=== PATIENT | male | born 1935 | race Caucasian/White ===

== ENCOUNTER 2017-05-30 14:42 | Emergency (ER) | payer OTHER, BC ==
--- OUTSIDE RECORDS SUMMARY | 2017-05-30 14:45 | XMS REPORT | Clinical Summary ---
:1935 Author Organization [facility] Address [address] [place] [address] Care Team Providers Name Role Phone Asked, No Pcp Primary Care Provider Unavailable Allergies Active Allergy Reactions Severity Noted Date Comments No Known Drug Allergies 11/18/2015 Current Medications Prescription Sig. Disp. Refills Start Date End Date Status metFORMIN TAKE BY MOUTH Active (GLUCOPHAGE) 500 mg 1/2 TABLET 2 tablet TIMES A DAY glimepiride Take 2 mg by 3 01/09/2016 Active (AMARYL) 2 MG mouth once tablet daily. allopurinol Take 100 mg Active (ZYLOPRIM) 100 MG by mouth tablet daily. folic acid Take 1 mg by Active (FOLVITE) 1 MG mouth daily. tablet furosemide (LASIX) Take 40 mg by Active 40 mg tablet mouth 2 (two) times a day. atorvastatin Take 1 tablet 30 tablet 0 04/30/2017 05/30/2017 Active (LIPITOR) 40 MG (40 mg total) tablet by mouth nightly for 30 days. aspirin (ECOTRIN) Take 1 tablet 30 tablet 0 05/01/2017 05/31/2017 Active 81 MG enteric (81 mg total) coated tablet by mouth daily for 30 days. carvedilol (COREG) Take 1 tablet 60 tablet 0 05/01/2017 05/31/2017 Active 25 MG tablet (25 mg total) by mouth 2 (two) times a day with meals for 30 days. apixaban (ELIQUIS) Take 1 tablet 60 tablet 0 05/01/2017 05/31/2017 Active 5 mg tablet (5 mg total) by mouth 2 (two) times a day for 30 days. potassium chloride Take 15 mL 450 mL 0 05/01/2017 05/31/2017 Active (KAYCIEL) 20 mEq/15 (20 mEq mL solution total) by mouth daily for 30 days. carvedilol (COREG) Take 2 120 tablet 0 05/01/2017 05/31/2017 Active 12.5 MG tablet tablets (25 mg total) by mouth 2 (two) times a day with meals for 30 days. lisinopril Take 2 60 tablet 0 05/01/2017 05/31/2017 Active (PRINIVIL,ZESTRIL) tablets (20 10 mg tablet mg total) by mouth nightly for 30 days. clonIDINE Take 1 tablet 60 tablet 0 05/01/2017 05/31/2017 Active (CATAPRES) 0.1 MG (0.1 mg tablet total) by mouth 2 (two) times a day for 30 days. metoprolol TAKE 1 TABLET 05/01/2017 Discontinued succinate XL BY MOUTH (TOPROL-XL) 100 mg TWICE A DAY 24 hr tablet amLODIPine TAKE 1 TABLET 05/01/2017 Discontinued (NORVASC) 10 mg BY MOUTH tablet EVERY DAY atorvastatin Take 20 mg by 1 12/04/2015 05/01/2017 Discontinued (LIPITOR) 20 MG mouth tablet nightly. clonIDINE Take 0.1 mg 4 01/05/2016 05/01/2017 Discontinued (CATAPRES) 0.1 MG by mouth 3 tablet (three) times a day. amLODIPine Take 5 mg by 05/01/2017 Discontinued (NORVASC) 5 mg mouth daily. tablet carvedilol (COREG) Take 12.5 mg 05/01/2017 Discontinued 12.5 MG tablet by mouth 2 (two) times a day with meals. lisinopril Take 1 tablet 30 tablet 0 04/30/2017 05/01/2017 Discontinued (PRINIVIL,ZESTRIL) (10 mg total) 10 mg tablet by mouth nightly for 30 days. benzonatate Take 1 15 capsule 0 04/30/2017 05/07/2017 (TESSALON) 100 MG capsule (100 capsule mg total) by mouth 3 (three) times a day as needed for cough for up to 7 days. levoFLOXacin Take 1 tablet 4 tablet 0 05/02/2017 05/06/2017 (LEVAQUIN) 750 MG (750 mg tablet total) by mouth daily for 4 days. 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 Dizziness and giddiness 08/21/2012 Back pain 08/10/2012 Peripheral vascular disease 06/20/2012 Overview: S/P stents Coronary arteriosclerosis 02/07/2012 Overview: S/P CABG x 3 Gout 03/28/2011 Chronic coronary artery disease 02/06/2011 Peripheral arterial occlusive disease 02/06/2011 Diabetes mellitus 06/07/2010 Essential hypertension 06/07/2010 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 Pneumonia 06/07/2010 Encounters Date Type Specialty Care Team Description 05/01/2017 Orders Only Procedural Lia, Cardiology Ines Kinsey RN 04/28/2017 - Hospital Encounter Cardiology Laurita, Essential 05/01/2017 Argentina Smith MD hypertension Jagjit Hunter, (Primary Dx) DO 07/19/2016 Office Visit General Surgery [place], Danny Norwood MD without obstruction or gangrene (Primary Dx) after 05/29/2016 Immunizations Name Dates Previously Given Next Due Influenza Trivalent 12/25/2008, 12/12/2007 Pneumococcal Polysaccharide 06/21/2010 Family History Medical History Relation Name Comments Thyroid cancer Brother Coronary artery disease Father Coronary artery disease Mother Diabetes Other Unspecified Relation Heart disease Other Unspecified Relation Hypertension Other Unspecified Relation Relation Name Status Comments Brother Father Mother Other Unspecified Relation Social History Tobacco Use Types Packs/Day Years Used Date Former Smoker Cigarettes Smokeless Tobacco: Never Used Alcohol Use Drinks/Week oz/Week Comments Yes moderate- 2 drinks weekly Sex Assigned at Date Recorded Not on file Last Filed Vital Signs Vital Sign Reading Time Taken Blood Pressure 160/66 05/01/2017 3:27 PM CDT Pulse 82 05/01/2017 3:27 PM CDT Temperature 36.4 C (97.5 F) 05/01/2017 3:27 PM CDT Respiratory Rate 17 05/01/2017 3:27 PM CDT Oxygen Saturation 91% 05/01/2017 3:27 PM CDT Inhaled Oxygen Concentration - - Weight 84 kg (185 lb 1.6 oz) 05/01/2017 5:12 AM CDT Height 175.3 cm (5' 9") 04/28/2017 4:51 PM CDT Body Mass Index 27.33 05/01/2017 5:12 AM CDT Plan of Treatment Date Type Specialty Care Team Description 05/31/2017 Surgery Procedural Esther Marsh Ep cardioversion Cardiology MD Jeffy [86833 (CPT)] [address] [place] [address] 05/31/2017 Procedure Pass Procedural Cardiology 05/31/2017 Hospital Encounter Procedural Esther Marsh Atrial fibrillation, Cardiology MD Jeffy unspecified type [address] [place] [address] Health Maintenance Due Date Last Done Comments FOOT EXAM 1945 OPHTHALMOLOGY EXAM 1945 ZOSTER VACCINE 1997 PNEUMOCOCCAL-13 2002 INFLUENZA VACCINE 09/06/2017 12/25/2008, 12/12/2007 PNEUMOCOCCAL POLYSACCHARIDE VACCINE AGE 65 Completed 06/21/2010 AND OVER Procedures Procedure Name Priority Date/Time Associated Comments Diagnosis ECHOCARDIOGRAM 2D Routine 04/28/2017 7:34 Results for this COMPLETE W MMODE PM CDT procedure are in SPECTRAL COLOR DOPPLER the results (20748) section. after 05/29/2016 Results POC glucose (05/01/2017 11:46 AM)Only the most recent of13 resultswithin the time period is included. Component Value Ref Range POC glucose 158 (H) 65 - 99 mg/dL Comment: [facility] Notified RN Meter ID: [id number] [employer] Instructor: Lorena Pierre Specimen Performing Laboratory [facility] DEPARTMENT OF PATHOLOGY AND GENOMIC MEDICINE [address] [place] [address] Estimated GFR (05/01/2017 5:50 AM)Only the most recent of4 resultswithin the time period is included. Component Value Ref Range GFR Non Af Amer 81 mL/min/1.73 m2 GFR Af Amer >90 mL/min/1.73 m2 Comment: Chronic kidney disease: <60 mL/min/1.73m2 Kidney failure: <15 mL/min/1.73m2 The estimated GFR is calculated from the IDMS-traceable Modification of Diet in Renal Disease Equation. The accuracy of the calculation is poor when the creatinine is normal. Calculated values >90 mL/min/1.73m2 are not reported. This equation has not been validated in children (<18 years), women, the elderly (>70 years), or ethnic groups other than Caucasians and Americans. Specimen Performing Laboratory Plasma specimen [facility] DEPARTMENT OF PATHOLOGY AND GENOMIC MEDICINE [address] [place] [address] CBC with platelet and differential (05/01/2017 5:50 AM)Only the most recent of4 resultswithin the time period is included. Component Value Ref Range WBC 7.16 4.50 - 11.00 k/uL RBC 3.49 (L) 4.40 - 6.00 m/uL HGB 11.5 (L) 14.0 - 18.0 g/dL HCT 34.1 (L) 41.0 - 51.0 % MCV 97.7 82.0 - 100.0 fL MCH 33.0 27.0 - 34.0 pg MCHC 33.7 31.0 - 37.0 g/dL RDW - SD 54.6 37.0 - 55.0 fL MPV 10.1 8.8 - 13.2 fL Platelet count 176 150 - 400 k/uL Nucleated RBC 0.00 /100 WBC Neutrophils 50.6 39.0 - 69.0 % Lymphocytes 26.8 25.0 - 45.0 % Monocytes 14.8 (H) 0.0 - 10.0 % Eosinophils 5.0 0.0 - 5.0 % Basophils 1.1 (H) 0.0 - 1.0 % Immature granulocytes 1.7 (H)Comment: "Immature granulocytes" 0.0 - 1.0 % (promyelocytes, myelocytes, metamyelocytes) Specimen Performing Laboratory Blood [facility] DEPARTMENT OF PATHOLOGY AND GENOMIC MEDICINE [address] [place] [address] Phosphorus level (05/01/2017 5:50 AM)Only the most recent of4 resultswithin the time period is included. Component Value Ref Range Phosphorus 3.8 2.4 - 4.5 mg/dL Specimen Performing Laboratory Plasma specimen [facility] DEPARTMENT PATHOLOGY [address] [address] Magnesium level (05/01/2017 5:50 AM)Only the most recent of4 resultswithin the time period is included. Component Value Ref Range Magnesium 1.3 (L) 1.6 - 2.4 mg/dL Specimen Performing Laboratory Plasma specimen [facility] PATHOLOGY [address] [address] Basic metabolic panel (05/01/2017 5:50 AM) Component Value Ref Range Sodium 140 135 - 148 mEq/L Potassium 3.7 3.5 - 5.0 mEq/L Chloride 97 (L) 98 - 112 mEq/L CO2 27 24 - 31 mEq/L Anion gap 16 (H) 7 - 15 mEq/L Comment: Starting from May , anion gap calculation no longer incorporates potassium. Please note the change. BUN 19 8 - 23 mg/dL Creatinine 0.9 0.7 - 1.2 mg/dL Glucose 151 (H) 65 - 99 mg/dL Calcium 9.2 8.8 - 10.2 mg/dL Specimen Performing Laboratory Plasma specimen [facility] PATHOLOGY [address] [address] B natriuretic peptide (04/30/2017 4:25 AM)Only the most recent of2 resultswithin the time period is included. Component Value Ref Range BNP 341 (H) 0 - 100 pg/mL Specimen Performing Laboratory Blood [facility] PATHOLOGY [address] [address] Thyroid stimulating hormone (04/30/2017 4:00 AM) Component Value Ref Range TSH 0.44 0.27 - 4.20 uIU/mL Specimen Performing Laboratory Plasma specimen [facility] PATHOLOGY [address] [address] T4 (04/30/2017 4:00 AM) Component Value Ref Range T4 6.0 4.5 - 11.7 ug/dL Specimen Performing Laboratory Plasma specimen [facility] PATHOLOGY [address] [address] Comprehensive metabolic panel (04/30/2017 4:00 AM)Only the most recent of3 resultswithin the time period is included. Component Value Ref Range Sodium 139 135 - 148 mEq/L Potassium 3.2 (L) 3.5 - 5.0 mEq/L Chloride 97 (L) 98 - 112 mEq/L CO2 28 24 - 31 mEq/L Anion gap 14 7 - 15 mEq/L Comment: Starting from May , anion gap calculation no longer incorporates potassium. Please note the change. BUN 20 8 - 23 mg/dL Creatinine 0.9 0.7 - 1.2 mg/dL Glucose 100 (H) 65 - 99 mg/dL Calcium 9.6 8.8 - 10.2 mg/dL Protein 7.2 6.3 - 8.3 g/dL Comment: 4.6-7.0 g/dL 1 week 4.4-7.6 g/dL 7 months-1year5.1-7.3 g/dL 1-2 years5.6-7.5 g/dL >3 years6.0-8.0 g/dL 18-150 6.3-8.3 g/dL Albumin 3.1 (L) 3.5 - 5.0 g/dL A/G ratio 0.8 0.7 - 3.8 Alkaline phosphatase 68 40 - 129 U/L AST 42 10 - 50 U/L ALT 29 5 - 50 U/L Total bilirubin 0.7 0.0 - 1.2 mg/dL Specimen Performing Laboratory Plasma specimen [facility] DEPARTMENT OF [facility]OLOG[facility] AND [facility] [address] [place] [address] Lactic acid level, SEPSIS - Now and repeat 2x every 3 hours (04/29/2017 4:00 AM )Only the most recent of2 resultswithin the time period is included. Component Value Ref Range Lactic acid 1.4 0.5 - 2.2 mmol/L Specimen Performing Laboratory Plasma specimen [facility] DEPARTMENT OF PATHOLOGY AND GENOMIC MEDICINE [address] [place] [address] Total iron binding capacity (04/29/2017 4:00 AM) Component Value Ref Range Iron level 38 (L) 59 - 158 ug/dL Iron binding capacity 171 (L) 200 - 400 ug/dL % Saturation 22.2 20.0 - 40.0 % Specimen Performing Laboratory Plasma specimen [facility] DEPARTMENT OF PATHOLOGY AND [facility] [address] [place] [address] Folate level (04/29/2017 4:00 AM) Component Value Ref Range Folate >20.0 4.8 - 24.2 ng/mL Specimen Performing Laboratory Serum [facility] PATHOLOGY AND [address] [address] Ferritin level (04/29/2017 4:00 AM) Component Value Ref Range Ferritin level 470 (H) 30 - 400 ng/mL Specimen Performing Laboratory Plasma specimen [facility] DEPARTMENT OF PATHOLOGY AND [address] [address] Vitamin B12 level (04/29/2017 4:00 AM) Component Value Ref Range Vitamin B12 529 211 - 946 pg/mL Comment: Significant overlap exists between normal and deficiency states. However, most patients with deficiencies will have Serum B12 <200 pg/mL. Specimen Performing Laboratory Serum [facility] PATHOLOGY [address] [address] Troponin (04/29/2017 12:40 AM)Only the most recent of2 resultswithin the time period is included. Component Value Ref Range Troponin <0.30 0.00 - 0.30 ng/mL Comment: 0.30 - 1.49 ng/mlMay indicate increased risk of acute coronary syndrome. >=1.5 ng/mlConsistent with acute myocardial infarction. The diagnostic value of a single normal or non-diagnostic result is questionable.Serial samples at 2-6 hour intervals are required to rule out acute myocardial injury. Specimen Performing Laboratory Blood [facility] PATHOLOGY [address] [address] Urine culture (04/28/2017 9:50 PM) Component Value Ref Range Urine culture SEE COMMENTComment: Bacteriuria screen negative. Specimen Performing Laboratory [facility] PATHOLOGY [address] [address] Urinalysis screen and microscopy, with reflex to culture (04/28/2017 9:41 PM) Component Value Ref Range Specimen site Clean catch Color, UA Straw Appearance, UA Clear Specific gravity, UA 1.010 1.001 - 1.035 pH, UA 5.0 5.0 - 8.5 Protein, UA Negative Negative Glucose, UA Negative Negative Ketones, UA Trace (A) Negative Bilirubin, UA Negative Negative Blood, UA Negative Negative Nitrite, UA Negative Negative Urobilinogen, UA <2.0 <2.0 Leukocyte esterase, UA Negative Negative WBC, UA <1 0 - 1 /HPF RBC, UA <1 0 - 1 /HPF Bacteria, UA Few None seen Yeast, UA None seen Yeast with pseudohyphae, UA None seen Hyaline casts, UA 3 /LPF Specimen Performing Laboratory Urine [facility] DEPARTMENT OF PATHOLOGY AND GENOMIC MEDICINE [address] [place] [address] XR Chest 2 Vw (04/28/2017 9:01 PM) Specimen Performing Laboratory [facility] [address] [place] [address] Narrative EXAMINATION:XR CHEST 2 VW CLINICAL HISTORY:Shortness of breath. Evaluate for pneumonia. COMPARISON:June 14, 2014 chest one view TECHNIQUE: Frontal and lateral views of the chest obtained. IMPRESSION: No evidence of pneumonia. Lungs are clear. Pulmonary vasculature is normal. No pleural effusion or pneumothorax. Left subclavian pacemaker. Mild cardiomegaly. Aorta is atherosclerotic. Midline sternotomy and CABG. Bones are unremarkable for age. [facility]-[id number] Procedure Note Interface, Radiology Results Incoming - 04/28/2017 10:06 PM CDT EXAMINATION: XR CHEST 2 VW CLINICAL HISTORY: Shortness of breath. Evaluate for pneumonia. COMPARISON: June 14, 2014 chest one view TECHNIQUE: Frontal and lateral views of the chest obtained. IMPRESSION: No evidence of pneumonia. Lungs are clear. Pulmonary vasculature is normal. No pleural effusion or pneumothorax. Left subclavian pacemaker. Mild cardiomegaly. Aorta is atherosclerotic. Midline sternotomy and CABG. Bones are unremarkable for age. [facility]-[id number] Echocardiogram complete w contrast and 3D if needed (04/28/2017 7:34 PM) Specimen Performing Laboratory [facility] [address] [place] [address] Narrative Echocardiography Report [address] [place] [address] Pat.Name:ELOY BURROWS Pat.ID:[id number] St.Date: 04/28/2017 Refer.MD:ARGENTINA SINGER MD Exam Time: 6:57:00 PMStudy Type:Routine Echo Height:68.9inWeight:191lb BSA: 2.03 m2 DOBAge:1935,82Y Sex: MALEBP:197/95 HR:77 bpmSonogrphr: KOJO Donovan Pat. Stat.:Inpatient Room:[address] Study Status:Final Echo Event ID:[id number] Order ID:[id number] Reason for Study:CHF History / Clinical:Coronary Artery Disease, Diabetes, Hypertension, Dizziness, Hyperlipidemia Procedures:2D Echo, Colorflow Doppler, Portable Race:C SUMMARY: LV size is normal. Estimated EF is 50-54%. RV systolic function is normal. LA volume is severely enlarged. Small posterolateral pericardial effusion. Estimated PA systolic pressure is 21-26 mmHg, assuming a mean RAP of 5-10 mmHg. FINDINGS: LV: LV size is normal. LV EF is lower limits of normal. Overall wallmotion is normal. Estimated EF is 50-54%. RV: RV size is enlarged. RV systolic function is normal. LA: LA volume is severely enlarged. RA: RA volume is enlarged. AO: Aortic root diameter is upper limits of normal in size. Ascendingaorta diameter is upper limits of normal. TERRANCE: Small posterolateral pericardial effusion. AV: Focal calcification of AV leaflets. MV: Focal calcifications of mitral leaflets. PV: No structural PV abnormalities noted. TV: No structural TV abnormalities noted. Mild tricuspid regurgitation Other:Estimated PA systolic pressure is 21-26 mmHg, assuming a meanRAP of 5-10 mmHg. MEASUREMENTS: 2D Parasternal [place] LVOT 2.2 cmLA Ds4.7 cm LVIDd4.8 cmIndex 2.4 cm/m Ao An2.2 cm LVIDs3.7 cm LV Nhdh327.1 g(122-174) LV%fs 23 % LVM Index 83.8 g/m2 IVSd 1 cmRWT0.4 LVPWd1 cmAo Rtd 3.9 cm Index1.9 cm/m Right Ventricle RVIDd4.9 cm (2.6-4.3) LA Sng Plane LA Area 30.1 cm2(8.8-23.4) LA Vol 103.8 ml Index51.2 ml/m LA LngAx 7.1 cm RA Sng Plane RA Area 34 cm2(8.3-19.5) RA Vol 133.1 ml Index65.6 ml/m RA LngAx 7.3 cm Ascending Aorta Asce Dim 3.8 cm Signed 05/01/2017 11:20 AM Jose Hernandez M.D. Procedure Note Interface, Radiology Results In - 05/01/2017 11:21 AM CDT Echocardiography Report [address] [place] [address] Pat.Name: ELOY BURROWS Pat.ID: [id number] .Date: 04/28/2017 Refer.MD: ARGENTINA SINGER MD Exam Time: 6:57:00 PM Study Type:Routine Echo Height: 68.9in Weight: 191lb BSA: 2.03 m2 Age: 2 1935,82Y Sex: MALE BP: 197/95 HR: 77 bpm Sonogrphr: KOJO Donovan Pat. Stat.:Inpatient Room: [address] Study Status:Final Echo Event ID:[id number] Order ID: [id number] Reason for Study:CHF History / Clinical:Coronary Artery Disease, Diabetes, Hypertension, Dizziness, Hyperlipidemia Procedures:2D Echo, Colorflow Doppler, Portable Race: C SUMMARY: LV size is normal. Estimated EF is 50-54%. RV systolic function is normal. LA volume is severely enlarged. Small posterolateral pericardial effusion. Estimated PA systolic pressure is 21-26 mmHg, assuming a mean RAP of 5-10 mmHg. FINDINGS: LV: LV size is normal. LV EF is lower limits of normal. Overall wall motion is normal. Estimated EF is 50-54%. RV: RV size is enlarged. RV systolic function is normal. LA: LA volume is severely enlarged. RA: RA volume is enlarged. AO: Aortic root diameter is upper limits of normal in size. Ascending aorta diameter is upper limits of normal. TERRANCE: Small posterolateral pericardial effusion. AV: Focal calcification of AV leaflets. MV: Focal calcifications of mitral leaflets. PV: No structural PV abnormalities noted. TV: No structural TV abnormalities noted. Mild tricuspid regurgitation Other: Estimated PA systolic pressure is 21-26 mmHg, assuming a mean RAP of 5-10 mmHg. MEASUREMENTS: 2D Parasternal [place] LVOT 2.2 cm LA Ds 4.7 cm LVIDd 4.8 cm Index 2.4 cm/m Ao An 2.2 cm LVIDs 3.7 cm LV Mass 170.1 g (122-174) LV%fs 23 % LVM Index 83.8 g/m2 IVSd 1 cm RWT 0.4 LVPWd 1 cm Ao Rtd 3.9 cm Index 1.9 cm/m Right Ventricle RVIDd 4.9 cm (2.6-4.3) LA Sng Plane LA Area 30.1 cm2 (8.8-23.4) LA Vol 103.8 ml Index 51.2 ml/m LA LngAx 7.1 cm RA Sng Plane RA Area 34 cm2 (8.3-19.5) RA Vol 133.1 ml Index 65.6 ml/m RA LngAx 7.3 cm Ascending Aorta Asce Dim 3.8 cm Signed 05/01/2017 11:20 AM Jose Hernandez M.D. Hemoglobin A1c (04/28/2017 6:30 PM) Component Value Ref Range Hemoglobin A1C 6.2 (H) 4.0 - 5.6 % Comment: HbA1c cutoffs for diagnosing diabetes: 4.0% - 5.6%=normal 5.7% - 6.4%=increased risk for diabetes (prediabetes) >=6.5%=diabetes Goals for glycemic control (ADA 2016) < 7.0%Target for non adults with diabetes. More or less stringent targets may be appropriate for individual patients. <7.5% Target for Children and adolescents with type 1 diabetes. Specimen Performing Laboratory Blood [facility] DEPARTMENT OF PATHOLOGY AND GENOMIC MEDICINE [address] [place] [address] ECG 12 lead (04/28/2017 6:14 PM) Component Value Ref Range Ventricular rate 100 Atrial rate 111 QRSD interval 98 QT interval 384 QTC interval 495 QRS axis 1 -44 T wave axis 120 EKG impression Atrial fibrillation with premature ventricular or aberrantly conducted complexes-Left axis deviation-Inferior infarct , age undetermined- Anterior infarct , age undetermined-Abnormal ECG-In automated comparison with ECG of 28-APR-2017 18:10,-Atrial fibrillation has replaced Sinus rhythm- Specimen Performing Laboratory [facility] MUSE [address] [place] [address] Sputum culture (04/28/2017 5:45 PM) Component Value Ref Range Sputum culture isolate Normal oral melanie isolated. Comment: Specimen Information Specimen Source: Sputum Specimen Site: Expectorated Specimen Performing Laboratory Sputum - Expectorated [facility] DEPARTMENT OF PATHOLOGY AND GENOMIC MEDICINE [address] [place] [address] Blood culture, aerobic & anaerobic (04/28/2017 5:45 PM)Only the most recent of2 resultswithin the time period is included. Component Value Ref Range Blood culture isolate No growth after 5 days of incubation. Comment: Specimen Information Specimen Source: Blood Specimen Site: Unspecified Specimen Performing Laboratory Blood [facility] DEPARTMENT OF PATHOLOGY AND GENOMIC MEDICINE [address] [place] [address] Gram stain (04/28/2017 5:45 PM) Component Value Ref Range Gram stain isolate Few WBC's Many Gram positive rods Many Gram positive cocci in clusters Comment: Specimen Information Specimen Source: Sputum Specimen Site: Expectorated Specimen Performing Laboratory Sputum - Expectorated [facility] [address] [address] Respiratory pathogen panel (04/28/2017 5:43 PM) Component Value Ref Range Respiratory pathogen panel Negative for all pathogens tested: Negative for Adenovirus Negative for Coronavirus HKU1 Negative for Coronavirus NL63 Negative for Coronavirus 229E Negative for Coronavirus OC43 Negative for Human Metapneumovirus Negative for Rhinovirus/Enterovirus Negative for Influenza A Negative for Influenza A/H1 Negative for Influenza A/H3 Negative for Influenza A/H1-2009 Negative for Influenza B Negative for Parainfluenza Virus 1 Negative for Parainfluenza Virus 2 Negative for Parainfluenza Virus 3 Negative for Parainfluenza Virus 4 Negative for Respiratory Syncytial Virus Negative for Bordetella pertussis Negative for Chlamydophila pneumoniae Negative for Mycoplasma pneumoniae This real-time PCR assay detects the presence of nucleic acids (RNA or DNA) for the respiratory pathogens listed. A result of "Not-detected" does not exclude the possibility of the presence of one or more pathogens at concentrations less than the detectable limits of the assay. Comment: Specimen Information Specimen Source: Nares Specimen Site: Not specified Specimen Performing Laboratory Nares - Not specified [facility] DEPARTMENT OF PATHOLOGY AND [address] [address] Lactic acid level (04/28/2017 5:43 PM) Component Value Ref Range Lactic acid 2.1 0.5 - 2.2 mmol/L Specimen Performing Laboratory Plasma specimen [facility] DEPARTMENT OF PATHOLOGY AND [address] [address] Lipid panel (04/28/2017 5:43 PM) Component Value Ref Range Cholesterol 103 <200 mg/dL Triglycerides 99 <150 mg/dL HDL cholesterol 38 (L) >40 mg/dL LDL cholesterol 44Comment: Result obtained by direct LDL <100 mg/dL measurement Lipid panel interpretation SeeBelow Comment: Total Cholesterol (mg/dL) <200 Desirable [id number]-[id number] >=240High Triglycerides (mg/dL) <150 Normal [id number]-[id number] 200-499High >=500Very high HDL Cholesterol (mg/dL) <40Low (male) <40Low (female) LDL Cholesterol (mg/dL) <100 Optimal 100-129Near or above optimal [phone]-gbjk 160-189High >=190Very high Risk Catergories that modify LDL goals. Risk CatergoriesLDL goal (mg/dL) CHD and CHD risk equivalent<100 (10-year risk >20%) Multiple (2+) risk factors <130 (10-year risk=<20%) 0-1 risk factors <160 (<10-year risk) Defining levels of lipids in metabolic syndrome Triglycerides>=150 mg/dL HDL Cholesterol Men<40 mg/dL Women<40 mg/dL Non-HDL cholesterol is a second target for therapy in persons with high triglycerides (>=200 mg/dL) Specimen Performing Laboratory Plasma specimen [facility] DEPARTMENT OF PATHOLOGY AND GENOMIC MEDICINE [address] [place] [id number] after 05/29/2016 Insurance Payer Benefit Plan / Group Subscriber ID Type Phone Address MEDICARE MEDICARE PART A AND B xxxxxxxxxx Medicare [place], [place] BCBS BCBS CHOICE PPO/[employer]ER[employer] EMPL PPO xxxxxxxxxxxx PPO Work: [id number] [phone] REINALDO WHITLEY Home: [phone]
[2017-05-30] MEDS ORDERED: PANTOPRAZOLE 40 MG INJ ONE (15:13)
[2017-05-30] MEDS ORDERED: NA CHLORIDE 0.9% 1,000 ML ONE ×2 (15:13→17:31)
[2017-05-30] MEDS ORDERED: OCTREOTIDE ACETATE 100 MCG/ML ONE (15:14)
[2017-05-30] MEDS ORDERED: CEFTRIAXONE/SWI 1gm 1 GM/10 ML SYR ONE (15:14)
[2017-05-30 15:22] LABS: Absolute Lymphocytes (CBC) 2.7 K/uL (0.7-4.9); Absolute Monocytes 1.5 K/uL (0.1-1.3); Absolute Neutrophil 14.2 K/uL (1.8-8.0); Basophils % 0.1 % (0-1.3); Lymphocytes % 14.5 % (15.3-44.8); MCH 33.2 pg (27.0-35.0); MCV 105.1 fL (80-100); MPV 8.9 fL (7.6-11.3); Monocytes % 8.3 % (3.3-12.3); RBC Red Blood Cell Count 1.58 M/uL (4.33-5.43)
[2017-05-30 15:26] LABS: Protime INR 2.48
[2017-05-30 15:31] LABS: Potassium 4.4 mEq/L (3.6-5.0)
[2017-05-30 15:38] LABS: Albumin 3.8 g/dL (3.2-5.5); Bilirubin Direct 0.2 mg/dL (0-0.2); Bilirubin Total 0.7 mg/dL (0.3-1.2); Protein, Total 6.9 g/dL (6.0-8.3)
[2017-05-30 15:48] LABS: Hematocrit 16.6 % (39.6-49.0)
[2017-05-30 15:55] LABS: Platelet Estimate ADEQ; Urine White Blood Cell Casts OK
[2017-05-30 15:56] LABS: Blood Morphology Comment NOTED (NOT SEEN); Macrocytosis 1+; Polychromasia 2+
--- NOTE | 2017-05-30 15:59 | RAD REPORT ---
EXAM DESCRIPTION: CT - Head C Spine Cap Wo Con - 05/30/2017 3:47 pm CLINICAL HISTORY: Trauma, head and neck injury. Chest, abdomen and pelvis pain. COMPARISON: None. TECHNIQUE: CT head without contrast. CT cervical spine without contrast with coronal and sagittal reformatted images. CT chest, abdomen and pelvis without contrast with coronal and sagittal reformatted images of the [facility]. All CT scans are performed using dose optimization technique as appropriate and may include automated exposure control or mA/KV adjustment according to patient size. FINDINGS: CT HEAD WITHOUT CONTRAST: No intracranial hemorrhage, hydrocephalus or extra-axial fluid collection. Moderate generalized brain atrophy is present with moderate periventricular and deep white matter chronic microvascular ischemi c changes. No areas of brain edema or midline shift. The paranasal sinuses and mastoids are clear. The calvarium is intact. CT CERVICAL SPINE WITHOUT CONTRAST: No fracture or subluxation. The prevertebral soft tissues are normal in thickness.Heavy carotid athe rosclerosis. CT CHEST, ABDOMEN, PELVIS WITHOUT CONTRAST: NOTE: Lack of contrast is a significant limitation in the assessment of trauma related findings. Spec ifically, solid organ, vascular and bowel evaluation is significantly limited. The lungs are clear.No pneumothorax or pericardial/pleural fluid. Moderate atherosclerosis is seen. P acemaker is in place. No evidence of intra-abdominal visceral injury, free fluid or free air is seen within the above detai led limitations. Cholecystectomy clips. Heavy atherosclerosis is noted. The appendix is normal. Scatt ered sigmoid diverticulosis without diverticulitis. Moderate stool is present in rectum. Evidence femoral bypass grafting is seen. Moderate lumbar degenerative changes. No fractures. IMPRESSION: Negative for acute traumatic findings within the above detailed limitations. Marked atherosclerotic vascular calcifications.
[2017-05-30] MEDS ORDERED: PANTOPRAZOLE INJ 80 MG in NA CHLORIDE 0.9% 250 ML IV SCH (16:00)
[2017-05-30] MEDS ORDERED: OCTREOTIDE 500 MCG in NA CHLORIDE 0.9% 500 ML IV SCH (16:00)
[2017-05-30] MEDS ORDERED: NA CHLORIDE 0.9% 200 ML IV ONE (16:42)
[2017-05-30] MEDS ORDERED: INSULIN -REGULAR HUMAN 50 UNIT/0.5 ML ML ONE (17:31)
--- NOTE | 2017-05-30 17:59 | EDPHYS ---
Physician Documentation [facility] Name: Javan Burrows Age: 82 yrs Sex: Male : 1935 Arrival Date: 05/30/2017 Time: 14:43 Bed 2 Private MD: ED Physician Ranjeet Parker HPI: 05/30 15:19 This 82 yrs old Male presents to ER via EMS with complaints of Altered Mental rn Status, GI Bleeding, Fall Injury. 15:19 The patient presents with confusion. Onset: The symptoms/episode began/occurred today. rn Possible causes: unknown. The patient has not experienced similar symptoms in the past. The patient has not recently seen a physician. Son reports went to go check on him, found him on floor, confused, possibly fell, patient having dark tarry stool and vomiting blood, son reports heavy alcohol intake but has never happened before. Also afib, on anticoagulation.. Historical: - Allergies: 15:21 NKA; iw - PMHx: 15:19 Diabetes - NIDDM; Gout; Hypertension; iw - PSHx: 15:19 Vasectomy; CABG; Cholecystectomy; Left knee replacement; Left shoulder; iw Pacemaker/defibrillator; - Immunization history: Last tetanus immunization: unknown. - Social history:: Smoking status: Patient uses alcohol, on a daily basis. - Family history:: not pertinent. - Hospitalizations: : No recent hospitalization is reported. - History obtained from: son. ROS: 15:19 Constitutional: Negative for fever, chills, and weight loss, Eyes: Negative for injury, rn pain, redness, and discharge, Neck: Negative for injury, pain, and swelling, Cardiovascular: Negative for chest pain, palpitations, and edema, Respiratory: + mild sob Abdomen/GI: + mild abd pain, + vomiting blood, + dark stool MS/Extremity: Negative for injury and deformity, Skin: Negative for injury, rash, and discoloration, Neuro: Negative for headache, numbness, tingling, and seizure Exam: 15:19 Constitutional: Overweight male, slightly confused but answer questions and follows rn commands. Head/Face: Normocephalic, atraumatic. Eyes: Pupils equal round and reactive to light, extra-ocular motions intact. Lids and lashes normal. Conjunctiva and sclera are non-icteric and not injected. Cornea within normal limits. Periorbital areas with no swelling, redness, or edema. ENT: + dry maroon blood/coffee grounds in mouth Neck: Trachea midline, no thyromegaly or masses palpated, and no cervical lymphadenopathy. Supple, full range of motion without nuchal rigidity, or vertebral point tenderness. No Meningismus. Chest/axilla: + right mid lateral linear ecchymosis with small amount of crepitus. no open wounds. Cardiovascular: + irregular and tachycardic, no murmur Respiratory: + coarse bilateral breath sounds, no wheezing, + tachypnea Abdomen/GI: soft, mild epigastric tenderness, no rebound, + lower bilateral abd ecchymosis MS/ Extremity: + right sided BKA Neuro: Awake, confused, follows commands. Vital Signs: 14:47 Pulse 124; Resp 30; Pulse Ox 96% on R/A; dm5 14:50 BP 126 / 72; hb 15:00 BP 132 / 74; Pulse 115; Resp 26 S; Pulse Ox 96% on 3 lpm NC; iw 16:00 BP 98 / 78; Pulse 120; Resp 24; Pulse Ox 100% on 3 lpm NC; hb 17:00 BP 118 / 101; Pulse 120; Resp 17; Pulse Ox 100% on 3 lpm NC; hb 17:30 BP 114 / 76; Pulse 118; Resp 18; Pulse Ox 100% on R/A; hb 18:00 BP 97 / 73; Pulse 122; Resp 24; Pulse Ox 100% on 3 lpm NC; hb 19:00 BP 98 / 83; Pulse 129; Resp 22; Temp 97.6; Pulse Ox 100% on R/A; aa1 20:00 BP 102 / 80; Pulse 130; Resp 22; Temp 97.8; Pulse Ox 98% on R/A; aa1 Misty Coma Score: 15:00 Eye Response: to voice(3). Verbal Response: confused(4). Motor Response: obeys iw commands(6). Total: 13. 16:00 Eye Response: to voice(3). Verbal Response: confused(4). Motor Response: obeys hb commands(6). Total: 13. 17:00 Eye Response: to voice(3). Verbal Response: confused(4). Motor Response: obeys hb commands(6). Total: 13. 18:00 Eye Response: to voice(3). Verbal Response: confused(4). Motor Response: obeys hb commands(6). Total: 13. 19:00 Eye Response: to voice(3). Verbal Response: confused(4). Motor Response: obeys aa1 commands(6). Total: 13. 20:00 Eye Response: to voice(3). Verbal Response: confused(4). Motor Response: obeys aa1 commands(6). Total: 13. Trauma Score (Adult): 15:00 Eye Response: to voice(0); Verbal Response: confused(1); Motor Response: obeys iw commands(2); Systolic BP: > 89 mm Hg(4); Respiratory Rate: 10 to 29 per min(4); Misty Score: 13; Trauma Score: 11 MDM: 14:50 Patient medically screened. rn 16:16 ED course: blood ordered, FFP ordered, updated family, patient stable for transfer, rn will initiate transfer to [facility] given we do not have GI services. . 16:17 ED course: tylenol level ordered as well due to family reporting "constant nyquil rn ingestion".. 17:44 Differential Diagnosis: CVA, electrolyte abnormality, hypoglycemia, overdose, rn pneumonia, seizure, sepsis, UTI, volume depletion, traumatic injury, concussion, GI bleed. Data reviewed: vital signs, nurses notes, lab test result(s), EKG, radiologic studies, CT scan, and as a result, I will admit patient. Counseling: I had a detailed discussion with the patient and/or guardian regarding: the historical points, exam findings, and any diagnostic results supporting the discharge/admit diagnosis, lab results, radiology results, the need to transfer to another facility, for higher level of care, [facility] does not immediately have the required specialist. ED course: Accepted for transfer as consult by Dr. Yung GI, at [facility], waiting television news anchor back for conference with ICU doctor. Glucose 400, 10 units insulin given, acidosis may be combination of hyperglycemia/uremia, will continue to recheck. . 05/30 14:59 Order name: Basic Metabolic Panel; Complete Time: 16:18 rn 05/30 14:59 Order name: CBC with Diff; Complete Time: 15:57 rn 05/30 14:59 Order name: Hepatic Function; Complete Time: 16:18 rn 05/30 14:59 Order name: Lipase; Complete Time: 16:18 05/30 14:59 Order name: Type And Screen rn 05/30 14:59 Order name: PT-INR; Complete Time: 15:54 05/30 14:59 Order name: Ptt, Activated; Complete Time: 15:54 05/30 14:59 Order name: Troponin (emerg Dept Use Only); Complete Time: 15:54 05/30 15:28 Order name: AMMONIA; Complete Time: 16:28 05/30 15:49 Order name: CBC Smear Scan; Complete Time: 15:57 EDPR 05/30 16:02 Order name: Bb Add On ag 05/30 16:08 Order name: ABO/RH no charge; Complete Time: 16:18 [facility] 05/30 16:09 Order name: Fresh Frozen Plasma [facility] 05/30 16:28 Order name: Tylenol Level 05/30 14:59 Order name: CT Traumagram (Head C Spine CAP wo con); Complete Time: 16:03 05/30 14:59 Order name: IV Saline Lock; Complete Time: 15:22 05/30 14:59 Order name: Labs collected and sent; Complete Time: 15:22 05/30 14:59 Order name: EKG - Nurse/Tech; Complete Time: 15:27 05/30 14:59 Order name: EKG; Complete Time: 14:59 05/30 17:26 Order name: Packed RBC Leukored -1 [facility] 05/30 17:28 Order name: Bb Add On ag Administered Medications: 15:27 Drug: Rocephin - (cefTRIAXone) 1 grams Route: IVPB; Infused Over: 30 mins; Site: right hb antecubital; 19:24 Follow up: Response: No adverse reaction; IV Status: Infusion continued upon transfer hb 15:27 Drug: Octreotide 50 mcg Route: IV; Rate: 1 bolus; Site: right antecubital; hb 16:00 Follow up: Response: No adverse reaction; IV Status: Completed infusion hb 15:28 Drug: ProTONIX 40 mg Route: IVP; Site: right antecubital; hb 16:15 Follow up: Response: No change in condition hb 16:00 Drug: Octreotide Infusion (50 mcg/hr) - (Octreotide 500 mcg, NS 0.9% 500 ml) Route: IV; hb Rate: 50 ml/hr; Site: right antecubital; 19:25 Follow up: Response: No adverse reaction; IV Status: Completed infusion; Infusion hb continued upon transfer 16:00 Drug: NS 0.9% 1000 ml Route: IV; Rate: 1000 ml; Site: right antecubital; hb 17:00 Follow up: Response: No change in condition; IV Status: Completed infusion hb 16:01 Drug: ProTONIX 8 mg/hr Route: IV; Rate: 25 ml/hr; Site: left antecubital; hb 19:24 Follow up: Response: No adverse reaction; IV Status: Infusion continued upon transfer hb 17:40 Drug: Insulin Regular Human 10 units {Co-Signature: cem (Elizabet Allen RN).} Route: hb Sub-Q; Site: left lower abdomen; 19:23 Follow up: Response: No adverse reaction; Blood sugar is lowered hb 17:40 Drug: NS 0.9% 1000 ml Route: IV; Rate: 75 ml/hr; Site: left antecubital; hb 19:23 Follow up: IV Status: Infusion continued upon transfer hb Point of Care Testing: Blood Glucose: 16:35 Blood Glucose: 401 mg/dL; hb Ranges: Critical Glucose Levels:Adult <50 mg/dl or >400 mg/dl <40 mg/dl or >180 mg/dl Disposition: 17:57 Critical Care:. rn Disposition: 18 17:58 Transfer ordered to [facility]. Diagnosis are Upper GI bleed, Uremia, Altered mental status, unspecified, Anemia, Hyperglycemia, unspecified, Acidosis. - Reason for transfer: Higher level of care. - Accepting physician is Dr. Yung. - Condition is Fair. - Problem is new. - Symptoms have improved. Critical care time excluding procedures: 17:57 Critical care time: Bedside Care: 25 minutes, Consultation: 5 minutes, Family rn Intervention: 5 minutes. Total time: 35 minutes Signatures: Dispatcher [employer] Radha Yost, RN RN aa1 Nita Boateng RN AGUSTINA iw Ranjeet Parker MD MD rn Baxter, Heather, RN RN hb Elizabet priest
--- NOTE | 2017-05-30 17:59 | ER ---
Nurse's Notes [facility] Name: Javan Burrows Age: 82 yrs Sex: Male : 1935 Arrival Date: 05/30/2017 Time: 14:43 Bed 2 Private MD: Diagnosis: Upper GI bleed;Uremia;Altered mental status, unspecified;Anemia;Hyperglycemia, unspecified;Acidosis Presentation: 05/30 14:44 Presenting complaint: EMS states: Found down, nude, incontinent of bowel, bloody tarry dm5 stool and blood in mouth. Oriented to name only. Unknown downtime. Last known normal was 2 days ago. Hx AFib, CHF. Started Eliquis 1 month ago. BP 84/43, HR 120s, BGL 512. Transition of care: patient was received from another setting of care [facility]. Onset of symptoms is unknown. Initial Sepsis Screen: Does the patient meet any 2 criteria?. Care prior to arrival: Glucose check: 512. 14:44 Method Of Arrival: EMS: [facility] dm5 14:44 Acuity: GOLDIE 2 dm5 15:00 Mechanism of Injury: Fall unknkown. Trauma event details: Injury occurred in the [facility], Injury occurred: at home. 19:30 Initial Sepsis Screen: Does the patient meet any 2 criteria? RR > 20 per min. Altered hb Mental Status. Does the patient have a suspected source of infection? No. Patient's initial sepsis screen is negative. Trauma Activation: Alert Physician: ED Physician; Name: Dr. Parker; Notified At: 14:46; Arrived At: 14:46 Physician: General Surgeon; Name: ; Notified At: 14:46; Arrived At: Physician: Radiology; Name: ; Notified At: 14:46; Arrived At: Physician: Respiratory; Name: ; Notified At: 14:46; Arrived At: Physician: Lab; Name: ; Notified At: 14:46; Arrived At: Historical: - Allergies: 15:21 NKA; iw - PMHx: 15:19 Diabetes - NIDDM; Gout; Hypertension; iw - PSHx: 15:19 Vasectomy; CABG; Cholecystectomy; Left knee replacement; Left shoulder; iw Pacemaker/defibrillator; - Immunization history: Last tetanus immunization: unknown. - Social history:: Smoking status: Patient uses alcohol, on a daily basis. - Family history:: not pertinent. - Hospitalizations: : No recent hospitalization is reported. - History obtained from: son. Screenin:00 Nutritional screening: No deficits noted. Fall Risk Total [place]zo Fall Scale indicates hb High Risk Score (45 or more points). Fall prevention measures have been instituted. Side Rails Up X 2 Frequent Obs/Assessments Occuring Family Present and informed to notify staff if the need to leave the bedside As available patient and family educated on Fall Prevention Program and Strategies. 15:33 Abuse screen: Denies threats or abuse. Denies injuries from another. Tuberculosis iw screening: No symptoms or risk factors identified. Primary Survey: 14:50 A: Airway: patent, Oxygen via nasal cannula at 3 liters per minute. Oral cavity: iw vomitus present. Breathing/Chest: Respiratory pattern: regular, Respiratory effort: labored. Breathing/Chest: Chest inspection: symmetrical rise and fall of the chest. Circulation: Cardiac rhythm: atrial fibrillation Pulses: palpable right radial artery and left radial artery. Skin color: pale, Skin temperature: cool. Disability Verbal Stimuli. 15:45 Reassessment Airway Airway Breathing/Chest Respiratory pattern Regular Respiratory hb effort Spontaneous Unlabored Chest inspection Symmetrical Circulation Pulses Palpable Color [place]on Temperature Warm Dry Disability Verbal stimuli. 16:45 Reassessment Airway Airway Patent Breathing/Chest Respiratory pattern Regular hb Respiratory effort Spontaneous Unlabored Chest inspection Symmetrical Circulation Color [place] Temperature Warm Dry Disability Verbal stimuli. 17:42 Reassessment Airway Airway Patent Breathing/Chest Respiratory pattern Regular hb Respiratory effort Spontaneous Unlabored Chest inspection Symmetrical Circulation Color [place] Temperature Warm Dry Disability Verbal stimuli. 18:49 Reassessment Airway Airway Patent Breathing/Chest Respiratory pattern Regular hb Respiratory effort Spontaneous Unlabored Chest inspection Symmetrical Circulation Pulses Palpable Color [place] Temperature Warm Dry Disability Verbal stimuli. Secondary Survey: 14:55 HEENT: Face Other bruising to left side of face, mild swelling to bilateral cheeks. hb Gastrointestinal: Abdomen is distended, Bowel sounds present in all quadrants. Patient vomited prior to arrival. Patient is incontinent of stool. : No deficits noted. No signs and/or symptoms were reported regarding the genitourinary system. Musculoskeletal: RIGHT AKA. Assessment: 14:50 General: Appears uncomfortable, ill, obese, Behavior is cooperative. Neuro: Level of iw Consciousness is awake, obeys commands, Oriented to person. Cardiovascular: Heart tones present Capillary refill is > 3 seconds in bilateral fingers Edema Rhythm is atrial fibrillation with rapid ventricular response. Respiratory: Respiratory effort is even, labored, Respiratory pattern is regular. GI: Abdomen is non-distended, Abd is soft X 4 quads Reports bloody stool, vomiting. Derm: Skin is fragile, is thin, Skin is pale, Skin temperature is cool Bruising that is dark purple, on right arm, left arm, right leg and left leg. Musculoskeletal:. 15:30 Reassessment: No changes from previously documented assessment. Patient and/or family hb updated on plan of care and expected duration. Pain level reassessed. Family at bedside. 16:30 Reassessment: No changes from previously documented assessment. Patient and/or family hb updated on plan of care and expected duration. Pain level reassessed. Family remains at bedside. 17:00 Reassessment: FFP infusion started to Right AC. hb 17:30 Reassessment: No changes from previously documented assessment. Patient and/or family hb updated on plan of care and expected duration. Pain level reassessed. Transfer to [facility] pending. 17:55 Reassessment: !st Unit PRBCs started to RIGHT AC. hb 18:30 Reassessment: Patient and/or family updated on plan of care and expected duration. Pain hb level reassessed. Blood infusion continues. 18:45 Reassessment: Report called to AGUSTINA Fuchs at [facility]. hb 19:20 Reassessment: Patient appears in no apparent distress at this time. Patient and/or aa1 family updated on plan of care and expected duration. Pain level reassessed. Reassessment: Pt awaiting EMS transport for transfer to [facility]. Neuro: Level of Consciousness is awake, alert, Oriented to person. Respiratory: Airway is patent Respiratory effort is even, unlabored, Respiratory pattern is regular, symmetrical. GI: Abdomen is non-distended, Abd is soft X 4 quads. Derm: Skin is fragile, is thin, Skin is pale, Skin temperature is cool. 19:55 Reassessment: Patient appears in no apparent distress at this time. No changes from aa1 previously documented assessment. Patient and/or family updated on plan of care and expected duration. Pain level reassessed. [facility] present at bedside for pt transport. 2nd unit PRBCs initiated and will monitor for 15 mins prior to departure. Vital Signs: 14:47 Pulse 124; Resp 30; Pulse Ox 96% on R/A; dm5 14:50 BP 126 / 72; hb 15:00 BP 132 / 74; Pulse 115; Resp 26 S; Pulse Ox 96% on 3 lpm NC; iw 16:00 BP 98 / 78; Pulse 120; Resp 24; Pulse Ox 100% on 3 lpm NC; hb 17:00 BP 118 / 101; Pulse 120; Resp 17; Pulse Ox 100% on 3 lpm NC; hb 17:30 BP 114 / 76; Pulse 118; Resp 18; Pulse Ox 100% on R/A; hb 18:00 BP 97 / 73; Pulse 122; Resp 24; Pulse Ox 100% on 3 lpm NC; hb 19:00 BP 98 / 83; Pulse 129; Resp 22; Temp 97.6; Pulse Ox 100% on R/A; aa1 20:00 BP 102 / 80; Pulse 130; Resp 22; Temp 97.8; Pulse Ox 98% on R/A; aa1 [place] Coma Score: 15:00 Eye Response: to voice(3). Verbal Response: confused(4). Motor Response: obeys iw commands(6). Total: 13. 16:00 Eye Response: to voice(3). Verbal Response: confused(4). Motor Response: obeys hb commands(6). Total: 13. 17:00 Eye Response: to voice(3). Verbal Response: confused(4). Motor Response: obeys hb commands(6). Total: 13. 18:00 Eye Response: to voice(3). Verbal Response: confused(4). Motor Response: obeys hb commands(6). Total: 13. 19:00 Eye Response: to voice(3). Verbal Response: confused(4). Motor Response: obeys aa1 commands(6). Total: 13. 20:00 Eye Response: to voice(3). Verbal Response: confused(4). Motor Response: obeys aa1 commands(6). Total: 13. Trauma Score (Adult): 15:00 Eye Response: to voice(0); Verbal Response: confused(1); Motor Response: obeys iw commands(2); Systolic BP: > 89 mm Hg(4); Respiratory Rate: 10 to 29 per min(4); [place] Score: 13; Trauma Score: 11 ED Course: 14:43 Patient arrived in ED. dm5 14:45 Patient has correct armband on for positive identification. Placed in gown. Bed in low hb position. Call light in reach. Side rails up X2. 14:47 Triage completed. dm5 14:50 Ranjeet Parker MD is Attending Physician. rn 14:50 Chelsi Tamayo, RN is Primary Nurse. dm5 14:51 Arm band placed on right wrist. hb 14:55 Inserted saline lock: 20 gauge in right antecubital area, using aseptic technique. iw Blood collected. IV inserted by Dago Baumann ED tech. 15:00 Missed attempt(s): 18 gauge in left antecubital area. Bleeding controlled, band aid iw applied, catheter tip intact. 15:00 Oxygen administration via nasal cannula \T\ 3L/min. Thermoregulation: warm blanket given hb to patient. 15:02 Missed attempt(s): 20 gauge in left antecubital area. Bleeding controlled, band aid iw applied, catheter tip intact. 15:11 Marilyn Sutton, RN is Primary Nurse. hb 15:[address] via stretcher. vm2 15:47 CT Traumagram (Head C Spine CAP wo con) In Process Unspecified. EDMS 19:26 No provider procedures requiring assistance completed. Patient transferred, IV remains hb in place. Administered Medications: 15:27 Drug: Rocephin - (cefTRIAXone) 1 grams Route: IVPB; Infused Over: 30 mins; Site: right hb antecubital; 19:24 Follow up: Response: No adverse reaction; IV Status: Infusion continued upon transfer hb 15:27 Drug: Octreotide 50 mcg Route: IV; Rate: 1 bolus; Site: right antecubital; hb 16:00 Follow up: Response: No adverse reaction; IV Status: Completed infusion hb 15:28 Drug: ProTONIX 40 mg Route: IVP; Site: right antecubital; hb 16:15 Follow up: Response: No change in condition hb 16:00 Drug: Octreotide Infusion (50 mcg/hr) - (Octreotide 500 mcg, NS 0.9% 500 ml) Route: IV; hb Rate: 50 ml/hr; Site: right antecubital; 19:25 Follow up: Response: No adverse reaction; IV Status: Completed infusion; Infusion hb continued upon transfer 16:00 Drug: NS 0.9% 1000 ml Route: IV; Rate: 1000 ml; Site: right antecubital; hb 17:00 Follow up: Response: No change in condition; IV Status: Completed infusion hb 16:01 Drug: ProTONIX 8 mg/hr Route: IV; Rate: 25 ml/hr; Site: left antecubital; hb 19:24 Follow up: Response: No adverse reaction; IV Status: Infusion continued upon transfer hb 17:40 Drug: Insulin Regular Human 10 units {Co-Signature: cem (Elizabet Allen RN).} Route: hb Sub-Q; Site: left lower abdomen; 19:23 Follow up: Response: No adverse reaction; Blood sugar is lowered hb 17:40 Drug: NS 0.9% 1000 ml Route: IV; Rate: 75 ml/hr; Site: left antecubital; hb 19:23 Follow up: IV Status: Infusion continued upon transfer hb Point of Care Testing: Blood Glucose: 16:35 Blood Glucose: 401 mg/dL; hb Ranges: Intake: 19:23 PO: 0ml; Total: 0ml. hb 19:37 IV: 287ml (Blood Products); Total: 287ml. aa1 19:37 PRBC unit #1 aa1 Output: 19:23 Urine: 0ml; Total: 0ml. hb 19:37 PRBC unit #1 aa1 Outcome: 17:58 ER care complete, transfer ordered by . rn 19:26 Patient's length of stay in the Emergency Department was greater than 2 hours. Awaiting hb transfer to higher level of carePatient's length of stay extended due to 20:18 Transferred by ground EMS to [facility], Transfer form completed. aa1 20:18 Condition: stable 20:18 Discharge instructions given to patient, family, Instructed on the need for transfer, Demonstrated understanding of instructions. 20:23 Patient left the ED. aa1 Signatures: Dispatcher [employer] EDMS Chelsi Tamayo RN RN dm5 Kern, Alissa, RN RN aa1 Nita Boateng RN RN Ranjeet Parker MD MD rn Baxter, Heather, RN RN hb McGu[place], [facility] Elizabet Allen RN aj Corrections: (The following items were deleted from the chart) 15:29 15:00 BP 132 / 74; Pulse 115bpm; Resp 26bpm; Spontaneous; Pulse Ox 96% 3 lpm Nasal iw Cannula; iw
[2017-05-30 20:44] VITALS: BP 102/80; TEMP 97.8; O2SAT 98
--- NOTE | 2017-05-31 06:57 | EKG ---
Test Date: 2017-05-30 Test Time: 15:06:50 Size Worker: CHARY MEASUREMENT RESULTS: Intervals: Rate: 116 ND: QRSD: 82 QT: 294 QTc: 408 [place]: P: ND: QRS: -6 T: 161 INTERPRETIVE STATEMENTS: Atrial fibrillation with rapid ventricular response with premature ventricular or aberrantly conducted complexes Low voltage QRS Nonspecific ST and T wave abnormality, probably digitalis effect Cannot rule out Anterior infarct Abnormal ECG Compared to ECG 06/10/2016 07:30:23 Ventricular premature complex(es) now present Low QRS voltage now present Sinus rhythm no longer present Electronically Signed On 05-31-17 06:56:50 CDT by Brian Westbrook
== END 2017-05-30 20:23 | disposition short-term general hospital (02) ==
LOC: ER 14:42
PROC: 30233K1 Transfusion of Nonautologous Frozen Plasma into Peripheral Vein, Percutaneous Approach (ICD-10-PCS; principal; 2017-05-30)
PROC: 30233N1 Transfusion of Nonautologous Red Blood Cells into Peripheral Vein, Percutaneous Approach (ICD-10-PCS; 2017-05-30)
DX: D64.9 Anemia, unspecified (principal); K92.2 Gastrointestinal hemorrhage, unspecified; N19 Unspecified kidney failure; E87.2 Acidosis; E11.65 Type 2 diabetes mellitus with hyperglycemia; I10 Essential (primary) hypertension; I48.91 Unspecified atrial fibrillation; Z95.810 Presence of automatic (implantable) cardiac defibrillator; Z95.1 Presence of aortocoronary bypass graft; Z79.01 Long term (current) use of anticoagulants
CPT/HCPCS: 36415; 36430; 70450; 71250; 72125; 80048; 80076; 80329; 82140; 82962 ×2; 83690; 84484; 85025; 85610; 85730; 86850; 86900; 86901; 93005; C9113 ×2; J0696; J2354 ×2; J7030 ×2; P9016 ×2; P9059; 96361; 96365; 96366; 96367; 96368; 96372; 96375; 99285

== ENCOUNTER 2018-05-04 09:30 | Inpatient (IN) | payer OTHER, BC ==
--- OUTSIDE RECORDS SUMMARY | 2018-05-04 09:35 | XMS REPORT | Clinical Summary ---
:1935 Author Organization [facility] Address [address] [place] [address] Care Team Providers Name Role Phone Joe Primary Care Provider Allergies No Known Allergies Medications Medication Sig Dispensed Refills Start End Date Status Date furosemide (LASIX) Take 40 mg by 2 Active 40 MG tablet mouth 2 (two) 8 times daily. folic acid Take 1 mg by mouth 3 Active (FOLVITE) 1 MG daily. 8 tablet magnesium oxide 400 Take 400 mg by 0 Active mg Cap mouth 2 (two) times daily. allopurinol Take 100 mg by 0 Active (ZYLOPRIM) 100 MG mouth daily. tablet atorvastatin Take 40 mg by 0 Active (LIPITOR) 40 MG mouth nightly. 8 tablet acetylcysteine 20% Take 2 mLs by 30 mL 0 06/20/19 Active (MUCOMYST) 200 nebulization 2 8 19 mg/mL (20 %) (two) times daily. nebulizer solution carvedilol (COREG) Take 1 tablet (25 60 tablet 06/20/19 Active 25 MG tablet mg total) by mouth 8 19 2 (two) times daily. digoxin (LANOXIN) Take 1 tablet (125 30 tablet 06/21/19 Active 0.125 MG tablet mcg total) by 8 19 mouth daily. insulin lispro Inject 0-16 Units 10 mL 0 06/20/19 Active (HUMALOG) 100 subcutaneously as 8 19 unit/mL injection needed (High blood sugar). ipratropium Take 2.5 mLs (0.5 450 mL 06/20/19 Active (ATROVENT) 0.02 % mg total) by 8 19 nebulizer solution nebulization every 4 (four) hours. pantoprazole Take 1 tablet (40 30 tablet 0 Active (PROTONIX) 40 MG mg total) by mouth 8 tablet 2 (two) times daily. thiamine 100 MG Take 1 tablet (100 30 tablet 11 06/21/19 Active tablet mg total) by mouth 8 19 daily. lisinopril Take 10 mg by 0 06/01/19 Discontinued (PRINIVIL,ZESTRIL) mouth 2 (two) 18 10 MG tablet times daily. glimepiride Take 2 mg by 1 06/20/19 Discontinued (AMARYL) 2 MG mouth. 8 18 tablet apixaban (ELIQUIS) Take 5 mg by mouth 0 06/20/19 Discontinued 5 mg Tab tablet 2 (two) times 8 18 daily. aspirin 81 MG EC Take 81 mg by 0 06/20/19 Discontinued tablet mouth daily. 8 18 carvedilol (COREG) Take 25 mg by 0 06/20/19 Discontinued 25 MG tablet mouth 2 (two) 8 18 times daily. lisinopril Take 10 mg by 0 06/20/19 Discontinued (PRINIVIL,ZESTRIL) mouth 2 (two) 8 18 10 MG tablet times daily. aspirin 81 MG EC Take 1 tablet (81 30 tablet 0 07/20/19 tablet mg total) by mouth 8 18 daily for 30 days. bisacodyl Take 2 tablets (10 30 tablet 0 07/21/19 (DULCOLAX) 5 mg EC mg total) by mouth 8 18 tablet daily for 30 days. Active Problems Problem Noted Date Disorientation 05/31/2017 A-fib 05/31/2017 Hypertension 05/31/2017 Hypernatremia 05/31/2017 Acute blood loss anemia 05/31/2017 Type 2 diabetes mellitus with complication, without long-term current use of insulin Leukocytosis 05/31/2017 Agitation 05/31/2017 Acute encephalopathy 05/31/2017 Acute kidney injury 05/31/2017 GIB (gastrointestinal bleeding) 05/30/2017 Encounters Date Type Specialty Care Team Description 06/01/2017 Orders Only General Internal Medicine 05/31/2017 Anesthesia Event Gastroenterology Lisa Miranda Jr., MD 05/31/2017 Surgery Gastroenterology Jose Guadalupe Yung UPPER ENDOSCOPY MD Meme 05/30/2017 Hospital Cardiology Mikhail Blancasual Acute kidney injury (HCC); - Encounter MD Brody Acute encephalopathy; 06/19/2017 Pallavi Cameron Acute respiratory failure with hypoxia (HCC); MD Rafael Gastrointestinal hemorrhage, unspecified gastrointestinal hemorrhage type; Omar, Delirium due to multiple etiologies, acute, hyperactive; Linda Ku, Leukocytosis, unspecified type; Pneumonia due to methicillin resistant Staphylococcus aureus, unspecified laterality, unspecified part of lung (HCC); Bar, Acute respiratory failure requiring reintubation (HCC); Douglas Workman, Atrial fibrillation, unspecified type (HCC); Alcohol abuse; Physical deconditioning after 05/03/2017 Social History Tobacco Use Types Packs/Day Years Used Date Never Smoker Smokeless Tobacco: Never Used Alcohol Use Drinks/Week oz/Week Comments Yes 21 Shots of liquor 12.6 Sex Assigned at Date Recorded Not on file Job Start Date Occupation Industry Not on file Not on file Not on file Travel History Travel Start Travel End No recent travel history available. Last Filed Vital Signs Vital Sign Reading Time Taken Blood Pressure 165/70 06/19/2017 3:29 PM CDT Pulse 63 06/19/2017 3:38 PM CDT Temperature 36.8 C (98.2 F) 06/19/2017 3:29 PM CDT Respiratory Rate 18 06/19/2017 3:38 PM CDT Oxygen Saturation 96% 06/19/2017 3:38 PM CDT Inhaled Oxygen Concentration 21% 06/18/2017 7:45 PM CDT Weight 81.6 kg (179 lb 12.8 oz) 06/19/2017 4:01 AM CDT Height 175.3 cm (5' 9") 05/30/2017 11:00 PM CDT Body Mass Index 26.55 06/19/2017 4:01 AM CDT Plan of Treatment Not on file Procedures Procedure Name Priority Date/Time Associated Comments Diagnosis TRANSFUSE PLASMA Routine 03/15/2018 5:30 PM [employer]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 POCT-GLUCOSE METER Routine 06/19/2017 12:20 Results for this PM CDT procedure are in the results section. COMPREHENSIVE Routine 06/19/2017 7:18 Results for this METABOLIC PANEL AM CDT procedure are in the results section. PHOSPHORUS Routine 06/19/2017 7:18 Results for this AM CDT procedure are in the results section. MAGNESIUM Routine 06/19/2017 7:18 Results for this AM CDT procedure are in the results section. POCT-GLUCOSE METER Routine 06/19/2017 7:14 Results for this AM CDT procedure are in the results section. CBC W/PLT COUNT & AUTO Routine 06/18/2017 11:58 Results for this DIFFERENTIAL PM CDT procedure are in the results section. CBC W/PLT COUNT & AUTO Routine 06/18/2017 11:58 Results for this DIFFERENTIAL PM CDT procedure are in the results section. POCT-GLUCOSE METER Routine 06/18/2017 8:26 Results for this PM CDT procedure are in the results section. POCT-GLUCOSE METER Routine 06/18/2017 5:43 Results for this PM CDT procedure are in the results section. POCT-GLUCOSE METER Routine 06/18/2017 1:01 Results for this PM CDT procedure are in the results section. POCT-GLUCOSE METER Routine 06/18/2017 8:02 Results for this AM CDT procedure are in the results section. CBC W/PLT COUNT & AUTO Routine 06/18/2017 4:44 Results for this DIFFERENTIAL AM CDT procedure are in the results section. CBC W/PLT COUNT & AUTO Routine 06/18/2017 4:44 Results for this DIFFERENTIAL AM CDT procedure are in the results section. BASIC METABOLIC PANEL Routine 06/18/2017 4:44 Results for this (7) AM CDT procedure are in the results section. PHOSPHORUS Routine 06/18/2017 4:44 Results for this AM CDT procedure are in the results section. MAGNESIUM Routine 06/18/2017 4:44 Results for this AM CDT procedure are in the results section. POCT-GLUCOSE METER Routine 06/17/2017 8:52 Results for this PM CDT procedure are in the results section. POCT-GLUCOSE METER Routine 06/17/2017 5:47 Results for this PM CDT procedure are in the results section. POCT-GLUCOSE METER Routine 06/17/2017 11:11 Results for this AM CDT procedure are in the results section. POCT-GLUCOSE METER Routine 06/17/2017 7:48 Results for this AM CDT procedure are in the results section. CBC W/PLT COUNT & AUTO Routine 06/17/2017 3:47 Results for this DIFFERENTIAL AM CDT procedure are in the results section. PHOSPHORUS Routine 06/17/2017 3:47 Results for this AM CDT procedure are in the results section. MAGNESIUM Routine 06/17/2017 3:47 Results for this AM CDT procedure are in the results section. CBC W/PLT COUNT & AUTO Routine 06/17/2017 3:47 Results for this DIFFERENTIAL AM CDT procedure are in the results section. POCT-GLUCOSE METER Routine 06/16/2017 8:43 Results for this PM CDT procedure are in the results section. POCT-GLUCOSE METER Routine 06/16/2017 5:21 Results for this PM CDT procedure are in the results section. POCT-GLUCOSE METER Routine 06/16/2017 12:46 Results for this PM CDT procedure are in the results section. POCT-GLUCOSE METER Routine 06/16/2017 7:01 Results for this AM CDT procedure are in the results section. CBC W/PLT COUNT & AUTO Routine 06/16/2017 5:20 Results for this DIFFERENTIAL AM CDT procedure are in the results section. BASIC METABOLIC PANEL Routine 06/16/2017 5:20 Results for this (7) AM CDT procedure are in the results section. PHOSPHORUS Routine 06/16/2017 5:20 Results for this AM CDT procedure are in the results section. MAGNESIUM Routine 06/16/2017 5:20 Results for this AM CDT procedure are in the results section. CBC W/PLT COUNT & AUTO Routine 06/16/2017 5:20 Results for this DIFFERENTIAL AM CDT procedure are in the results section. POCT-GLUCOSE METER Routine 06/15/2017 9:05 Results for this PM CDT procedure are in the results section. POCT-GLUCOSE METER Routine 06/15/2017 5:17 Results for this PM CDT procedure are in the results section. POCT-GLUCOSE METER Routine 06/15/2017 8:17 Results for this AM CDT procedure are in the results section. CBC W/PLT COUNT & AUTO Routine 06/15/2017 2:42 Results for this DIFFERENTIAL AM CDT procedure are in the results section. COMPREHENSIVE Routine 06/15/2017 2:42 Results for this METABOLIC PANEL AM CDT procedure are in the results section. PHOSPHORUS Routine 06/15/2017 2:42 Results for this AM CDT procedure are in the results section. MAGNESIUM Routine 06/15/2017 2:42 Results for this AM CDT procedure are in the results section. CBC W/PLT COUNT & AUTO Routine 06/15/2017 2:42 Results for this DIFFERENTIAL AM CDT procedure are in the results section. PROTHROMBIN TIME/INR Routine 06/15/2017 2:42 Results for this AM CDT procedure are in the results section. POCT-GLUCOSE METER Routine 06/14/2017 9:12 Results for this PM CDT procedure are in the results section. POCT-GLUCOSE METER Routine 06/14/2017 5:00 Results for this PM CDT procedure are in the results section. POCT-GLUCOSE METER Routine 06/14/2017 1:29 Results for this PM CDT procedure are in the results section. POCT-GLUCOSE METER Routine 06/14/2017 7:21 Results for this AM CDT procedure are in the results section. (CELLAVISION MANUAL Routine 06/14/2017 5:42 Results for this DIFF) AM CDT procedure are in the results section. CBC W/PLT COUNT & AUTO Routine 06/14/2017 5:42 Results for this DIFFERENTIAL AM CDT procedure are in the results section. PHOSPHORUS Routine 06/14/2017 5:42 Results for this AM CDT procedure are in the results section. MAGNESIUM Routine 06/14/2017 5:42 Results for this AM CDT procedure are in the results section. CBC W/PLT COUNT & AUTO Routine 06/14/2017 5:42 Results for this DIFFERENTIAL AM CDT procedure are in the results section. BASIC METABOLIC PANEL Routine 06/14/2017 5:42 Results for this (7) AM CDT procedure are in the results section. POCT-GLUCOSE METER Routine 06/13/2017 9:28 Results for this PM CDT procedure are in the results section. POCT-GLUCOSE METER Routine 06/13/2017 5:35 Results for this PM CDT procedure are in the results section. POCT-GLUCOSE METER Routine 06/13/2017 11:57 Results for this AM CDT procedure are in the results section. POCT-GLUCOSE METER Routine 06/13/2017 9:28 Results for this AM CDT procedure are in the results section. CBC W/PLT COUNT & AUTO Routine 06/13/2017 5:36 Results for this DIFFERENTIAL AM CDT procedure are in the results section. BASIC METABOLIC PANEL Routine 06/13/2017 5:36 Results for this (7) AM CDT procedure are in the results section. PHOSPHORUS Routine 06/13/2017 5:36 Results for this AM CDT procedure are in the results section. MAGNESIUM Routine 06/13/2017 5:36 Results for this AM CDT procedure are in the results section. CBC W/PLT COUNT & AUTO Routine 06/13/2017 5:36 Results for this DIFFERENTIAL AM CDT procedure are in the results section. POCT-GLUCOSE METER Routine 06/12/2017 10:28 Results for this PM CDT procedure are in the results section. TRANSFUSION SERVICE 06/12/2017 5:40 REPORT - SCAN PM CDT POCT-GLUCOSE METER Routine 06/12/2017 5:25 Results for this PM CDT procedure are in the results section. POCT-GLUCOSE METER Routine 06/12/2017 12:20 Results for this PM CDT procedure are in the results section. POCT-GLUCOSE METER Routine 06/12/2017 7:48 Results for this AM CDT procedure are in the results section. CBC W/PLT COUNT & AUTO Routine 06/12/2017 5:19 Results for this DIFFERENTIAL AM CDT procedure are in the results section. PHOSPHORUS Routine 06/12/2017 5:19 Results for this AM CDT procedure are in the results section. MAGNESIUM Routine 06/12/2017 5:19 Results for this AM CDT procedure are in the results section. CBC W/PLT COUNT & AUTO Routine 06/12/2017 5:19 Results for this DIFFERENTIAL AM CDT procedure are in the results section. POCT-GLUCOSE METER Routine 06/11/2017 8:59 Results for this PM CDT procedure are in the results section. POCT-GLUCOSE METER Routine 06/11/2017 5:47 Results for this PM CDT procedure are in the results section. POCT-GLUCOSE METER Routine 06/11/2017 12:36 Results for this PM CDT procedure are in the results section. POCT-GLUCOSE METER Routine 06/11/2017 7:46 Results for this AM CDT procedure are in the results section. CBC W/PLT COUNT & AUTO Routine 06/11/2017 5:23 Results for this DIFFERENTIAL AM CDT procedure are in the results section. TYPE AND SCREEN, Routine 06/11/2017 5:23 Results for this AUTOMATED AM CDT procedure are in the results section. VANCOMYCIN LEVEL, Routine 06/11/2017 5:23 Results for this RANDOM AM CDT procedure are in the results section. BASIC METABOLIC PANEL Routine 06/11/2017 5:23 Results for this (7) AM CDT procedure are in the results section. PHOSPHORUS Routine 06/11/2017 5:23 Results for this AM CDT procedure are in the results section. MAGNESIUM Routine 06/11/2017 5:23 Results for this AM CDT procedure are in the results section. CBC W/PLT COUNT & AUTO Routine 06/11/2017 5:23 Results for this DIFFERENTIAL AM CDT procedure are in the results section. POCT-GLUCOSE METER Routine 06/10/2017 9:39 Results for this PM CDT procedure are in the results section. POCT-GLUCOSE METER Routine 06/10/2017 5:35 Results for this PM CDT procedure are in the results section. POCT-GLUCOSE METER Routine 06/10/2017 12:03 Results for this PM CDT procedure are in the results section. POCT-GLUCOSE METER Routine 06/10/2017 8:26 Results for this AM CDT procedure are in the results section. CBC W/PLT COUNT & AUTO Routine 06/10/2017 4:24 Results for this DIFFERENTIAL AM CDT procedure are in the results section. BASIC METABOLIC PANEL Routine 06/10/2017 4:24 Results for this (7) AM CDT procedure are in the results section. PHOSPHORUS Routine 06/10/2017 4:24 Results for this AM CDT procedure are in the results section. MAGNESIUM Routine 06/10/2017 4:24 Results for this AM CDT procedure are in the results section. CBC W/PLT COUNT & AUTO Routine 06/10/2017 4:24 Results for this DIFFERENTIAL AM CDT procedure are in the results section. POCT-GLUCOSE METER Routine 06/09/2017 9:40 Results for this PM CDT procedure are in the results section. POCT-GLUCOSE METER Routine 06/09/2017 5:19 Results for this PM CDT procedure are in the results section. BLOOD CULTURE Routine 06/09/2017 3:42 Results for this PM CDT procedure are in the results section. POCT-GLUCOSE METER Routine 06/09/2017 11:54 Results for this AM CDT procedure are in the results section. POCT-GLUCOSE METER Routine 06/09/2017 5:52 Results for this AM CDT procedure are in the results section. CBC W/PLT COUNT & AUTO Routine 06/09/2017 4:05 Results for this DIFFERENTIAL AM CDT procedure are in the results section. BASIC METABOLIC PANEL Routine 06/09/2017 4:05 Results for this (7) AM CDT procedure are in the results section. PHOSPHORUS Routine 06/09/2017 4:05 Results for this AM CDT procedure are in the results section. MAGNESIUM Routine 06/09/2017 4:05 Results for this AM CDT procedure are in the results section. CBC W/PLT COUNT & AUTO Routine 06/09/2017 4:05 Results for this DIFFERENTIAL AM CDT procedure are in the results section. POCT-GLUCOSE METER Routine 06/09/2017 12:08 Results for this AM CDT procedure are in the results section. MAGNESIUM STAT 06/08/2017 8:17 Results for this PM CDT procedure are in the results section. BASIC METABOLIC PANEL STAT 06/08/2017 8:17 Results for this (7) PM CDT procedure are in the results section. POCT-GLUCOSE METER Routine 06/08/2017 7:13 Results for this PM CDT procedure are in the results section. BLOOD GAS, VENOUS Routine 06/08/2017 5:58 Results for this PM CDT procedure are in the results section. POCT-GLUCOSE METER Routine 06/08/2017 11:57 Results for this AM CDT procedure are in the results section. POCT-GLUCOSE METER Routine 06/08/2017 9:10 Results for this AM CDT procedure are in the results section. POCT-GLUCOSE METER Routine 06/08/2017 5:58 Results for this AM CDT procedure are in the results section. CBC W/PLT COUNT & AUTO Routine 06/08/2017 4:54 Results for this DIFFERENTIAL AM CDT procedure are in the results section. BASIC METABOLIC PANEL Routine 06/08/2017 4:54 Results for this (7) AM CDT procedure are in the results section. VITAMIN B12 AND FOLATE Routine 06/08/2017 4:54 Results for this AM CDT procedure are in the results section. FERRITIN Routine 06/08/2017 4:54 Results for this AM CDT procedure are in the results section. IRON, TIBC, % SAT. Routine 06/08/2017 4:54 Results for this (WITHOUT FERRITIN) AM CDT procedure are in the results section. PHOSPHORUS Routine 06/08/2017 4:54 Results for this AM CDT procedure are in the results section. MAGNESIUM Routine 06/08/2017 4:54 Results for this AM CDT procedure are in the results section. CBC W/PLT COUNT & AUTO Routine 06/08/2017 4:54 Results for this DIFFERENTIAL AM CDT procedure are in the results section. POCT-GLUCOSE METER Routine 06/07/2017 11:39 Results for this PM CDT procedure are in the results section. XR ABDOMEN 1 VIEW STAT 06/07/2017 10:27 Results for this PM CDT procedure are in the results section. XR ABDOMEN 1 VIEW STAT 06/07/2017 10:01 Results for this PM CDT procedure are in the results section. POCT-GLUCOSE METER Routine 06/07/2017 6:15 Results for this PM CDT procedure are in the results section. BASIC METABOLIC PANEL Routine 06/07/2017 6:07 Results for this (7) PM CDT procedure are in the results section. PROCALCITONIN Routine 06/07/2017 4:37 Results for this PM CDT procedure are in the results section. RETICULOCYTE COUNT Routine 06/07/2017 4:37 Results for this PM CDT procedure are in the results section. POCT-GLUCOSE METER Routine 06/07/2017 1:06 Results for this PM CDT procedure are in the results section. POCT-GLUCOSE METER Routine 06/07/2017 5:42 Results for this AM CDT procedure are in the results section. CBC W/PLT COUNT & AUTO Routine 06/07/2017 5:04 Results for this DIFFERENTIAL AM CDT procedure are in the results section. BASIC METABOLIC PANEL Routine 06/07/2017 5:04 Results for this (7) AM CDT procedure are in the results section. TROPONIN I Routine 06/07/2017 5:04 Results for this AM CDT procedure are in the results section. LACTIC ACID, VENOUS Routine 06/07/2017 5:04 Results for this AM CDT procedure are in the results section. PHOSPHORUS Routine 06/07/2017 5:04 Results for this AM CDT procedure are in the results section. MAGNESIUM Routine 06/07/2017 5:04 Results for this AM CDT procedure are in the results section. CBC W/PLT COUNT & AUTO Routine 06/07/2017 5:04 Results for this DIFFERENTIAL AM CDT procedure are in the results section. XR CHEST 1 VIEW Routine 06/07/2017 3:54 Results for this PORTABLE/BEDSIDE AM CDT procedure are in the results section. B-TYPE NATRIURETIC Routine 06/07/2017 12:00 Results for this FACTOR (BNP) AM CDT procedure are in the results section. BASIC METABOLIC PANEL Routine 06/07/2017 12:00 Results for this (7) AM CDT procedure are in the results section. POCT-GLUCOSE METER Routine 06/06/2017 11:39 Results for this PM CDT procedure are in the results section. POCT-GLUCOSE METER Routine 06/06/2017 5:11 Results for this PM CDT procedure are in the results section. BASIC METABOLIC PANEL Routine 06/06/2017 5:09 Results for this (7) PM CDT procedure are in the results section. POCT-GLUCOSE METER Routine 06/06/2017 11:53 Results for this AM CDT procedure are in the results section. BLOOD CULTURE Routine 06/06/2017 11:20 Results for this AM CDT procedure are in the results section. SPUTUM CULTURE + GRAM Routine 06/06/2017 8:56 Results for this STAIN AM CDT procedure are in the results section. BLOOD CULTURE Routine 06/06/2017 8:56 Results for this AM CDT procedure are in the results section. BASIC METABOLIC PANEL Routine 06/06/2017 8:55 Results for this (7) AM CDT procedure are in the results section. POCT-GLUCOSE METER Routine 06/06/2017 4:05 Results for this AM CDT procedure are in the results section. CBC W/PLT COUNT & AUTO Routine 06/06/2017 4:01 Results for this DIFFERENTIAL AM CDT procedure are in the results section. CALCIUM, IONIZED STAT 06/06/2017 4:01 Results for this AM CDT procedure are in the results section. LACTIC ACID, VENOUS Routine 06/06/2017 4:01 Results for this AM CDT procedure are in the results section. PHOSPHORUS Routine 06/06/2017 4:01 Results for this AM CDT procedure are in the results section. MAGNESIUM Routine 06/06/2017 4:01 Results for this AM CDT procedure are in the results section. CBC W/PLT COUNT & AUTO Routine 06/06/2017 4:01 Results for this DIFFERENTIAL AM CDT procedure are in the results section. XR CHEST 1 VIEW Routine 06/06/2017 3:52 Results for this PORTABLE/BEDSIDE AM CDT procedure are in the results section. POCT-GLUCOSE METER Routine 06/06/2017 1:17 Results for this AM CDT procedure are in the results section. BASIC METABOLIC PANEL Routine 06/06/2017 1:17 Results for this (7) AM CDT procedure are in the results section. POCT-GLUCOSE METER Routine 06/05/2017 10:04 Results for this PM CDT procedure are in the results section. VANCOMYCIN LEVEL, Timed 06/05/2017 9:18 Results for this TROUGH PM CDT procedure are in the results section. MAGNESIUM Routine 06/05/2017 5:09 Results for this PM CDT procedure are in the results section. BASIC METABOLIC PANEL Routine 06/05/2017 5:09 Results for this (7) PM CDT procedure are in the results section. POCT-GLUCOSE METER Routine 06/05/2017 5:08 Results for this PM CDT procedure are in the results section. POCT-GLUCOSE METER Routine 06/05/2017 11:33 Results for this AM CDT procedure are in the results section. BASIC METABOLIC PANEL Routine 06/05/2017 9:39 Results for this (7) AM CDT procedure are in the results section. CREATINE KINASE (CK), Routine 06/05/2017 9:39 Results for this TOTAL AND MB AM CDT procedure are in the results section. BLOOD CULTURE Routine 06/05/2017 9:39 Results for this AM CDT procedure are in the results section. POCT-GLUCOSE METER Routine 06/05/2017 6:32 Results for this AM CDT procedure are in the results section. CBC W/PLT COUNT & AUTO Routine 06/05/2017 4:29 Results for this DIFFERENTIAL AM CDT procedure are in the results section. LACTIC ACID, VENOUS Routine 06/05/2017 4:29 Results for this AM CDT procedure are in the results section. PHOSPHORUS Routine 06/05/2017 4:29 Results for this AM CDT procedure are in the results section. MAGNESIUM Routine 06/05/2017 4:29 Results for this AM CDT procedure are in the results section. CBC W/PLT COUNT & AUTO Routine 06/05/2017 4:29 Results for this DIFFERENTIAL AM CDT procedure are in the results section. BASIC METABOLIC PANEL Routine 06/05/2017 4:29 Results for this (7) AM CDT procedure are in the results section. CREATINE KINASE (CK), Routine 06/05/2017 4:29 Results for this TOTAL AND MB AM CDT procedure are in the results section. XR CHEST 1 VIEW Routine 06/05/2017 4:02 Results for this PORTABLE/BEDSIDE AM CDT procedure are in the results section. POCT-GLUCOSE METER Routine 06/05/2017 12:46 Results for this AM CDT procedure are in the results section. POCT-GLUCOSE METER Routine 06/04/2017 5:22 Results for this PM CDT procedure are in the results section. BASIC METABOLIC PANEL Routine 06/04/2017 3:39 Results for this (7) PM CDT procedure are in the results section. CREATINE KINASE (CK), Routine 06/04/2017 3:39 Results for this TOTAL AND MB PM CDT procedure are in the results section. CT BRAIN WITHOUT IV Routine 06/04/2017 3:11 Results for this CONTRAST PM CDT procedure are in the results section. POCT-GLUCOSE METER Routine 06/04/2017 1:11 Results for this PM CDT procedure are in the results section. BLOOD CULTURE Routine 06/04/2017 10:17 Results for this AM CDT procedure are in the results section. LACTIC ACID, VENOUS Routine 06/04/2017 9:10 Results for this AM CDT procedure are in the results section. BASIC METABOLIC PANEL Routine 06/04/2017 9:10 Results for this (7) AM CDT procedure are in the results section. CREATINE KINASE (CK), Routine 06/04/2017 9:10 Results for this TOTAL AND MB AM CDT procedure are in the results section. BLOOD CULTURE Routine 06/04/2017 9:10 Results for this AM CDT procedure are in the results section. POCT-GLUCOSE METER Routine 06/04/2017 6:05 Results for this AM CDT procedure are in the results section. US ABDOMEN LIMITED Routine 06/04/2017 5:05 Results for this AM CDT procedure are in the results section. XR CHEST 1 VIEW Routine 06/04/2017 4:55 Results for this PORTABLE/BEDSIDE AM CDT procedure are in the results section. XR ABDOMEN 1 VIEW Routine 06/04/2017 4:55 Results for this AM CDT procedure are in the results section. CBC W/PLT COUNT & AUTO Routine 06/04/2017 4:12 Results for this DIFFERENTIAL AM CDT procedure are in the results section. PHOSPHORUS Routine 06/04/2017 4:12 Results for this AM CDT procedure are in the results section. MAGNESIUM Routine 06/04/2017 4:12 Results for this AM CDT procedure are in the results section. CBC W/PLT COUNT & AUTO Routine 06/04/2017 4:12 Results for this DIFFERENTIAL AM CDT procedure are in the results section. BLOOD GAS, ARTERIAL Routine 06/04/2017 3:57 Results for this AM CDT procedure are in the results section. POCT-GLUCOSE METER Routine 06/04/2017 12:00 Results for this AM CDT procedure are in the results section. BASIC METABOLIC PANEL Routine 06/03/2017 11:54 Results for this (7) PM CDT procedure are in the results section. HEMOGLOBIN AND STAT 06/03/2017 11:54 Results for this HEMATOCRIT PM CDT procedure are in the results section. CREATINE KINASE (CK), Routine 06/03/2017 11:54 Results for this TOTAL AND MB PM CDT procedure are in the results section. BLOOD GAS, ARTERIAL Routine 06/03/2017 7:21 Results for this PM CDT procedure are in the results section. TRANSFUSION SERVICE 06/03/2017 5:41 REPORT - SCAN PM CDT XR CHEST 1 VIEW STAT 06/03/2017 5:40 Results for this PORTABLE/BEDSIDE PM CDT procedure are in the results section. POCT-GLUCOSE METER Routine 06/03/2017 5:38 Results for this PM CDT procedure are in the results section. BLOOD GAS, VENOUS Routine 06/03/2017 2:54 Results for this PM CDT procedure are in the results section. HEMOGLOBIN AND STAT 06/03/2017 2:54 Results for this HEMATOCRIT PM CDT procedure are in the results section. CREATINE KINASE (CK), Routine 06/03/2017 2:54 Results for this TOTAL AND MB PM CDT procedure are in the results section. BASIC METABOLIC PANEL Routine 06/03/2017 2:54 Results for this (7) PM CDT procedure are in the results section. HEPATITIS C ANTIBODY Routine 06/03/2017 12:31 Results for this PM CDT procedure are in the results section. HEPATITIS B PANEL Routine 06/03/2017 12:31 Results for this PM CDT procedure are in the results section. HEPATITIS A PANEL Routine 06/03/2017 12:31 Results for this PM CDT procedure are in the results section. POCT-GLUCOSE METER Routine 06/03/2017 11:56 Results for this AM CDT procedure are in the results section. BLOOD GAS, ARTERIAL STAT 06/03/2017 11:01 Results for this AM CDT procedure are in the results section. BASIC METABOLIC PANEL Routine 06/03/2017 7:37 Results for this (7) AM CDT procedure are in the results section. HEMOGLOBIN AND STAT 06/03/2017 7:37 Results for this HEMATOCRIT AM CDT procedure are in the results section. CREATINE KINASE (CK), Routine 06/03/2017 7:37 Results for this TOTAL AND MB AM CDT procedure are in the results section. POCT-GLUCOSE METER Routine 06/03/2017 6:44 Results for this AM CDT procedure are in the results section. XR CHEST 1 VIEW Routine 06/03/2017 4:36 Results for this PORTABLE/BEDSIDE AM CDT procedure are in the results section. BLOOD GAS, ARTERIAL Routine 06/03/2017 4:15 Results for this AM CDT procedure are in the results section. CBC W/PLT COUNT & AUTO Routine 06/03/2017 4:14 Results for this DIFFERENTIAL AM CDT procedure are in the results section. BASIC METABOLIC PANEL Routine 06/03/2017 4:14 Results for this (7) AM CDT procedure are in the results section. PHOSPHORUS Routine 06/03/2017 4:14 Results for this AM CDT procedure are in the results section. MAGNESIUM Routine 06/03/2017 4:14 Results for this AM CDT procedure are in the results section. CBC W/PLT COUNT & AUTO Routine 06/03/2017 4:14 Results for this DIFFERENTIAL AM CDT procedure are in the results section. POCT-GLUCOSE METER Routine 06/03/2017 12:22 Results for this AM CDT procedure are in the results section. HEMOGLOBIN AND STAT 06/03/2017 12:13 Results for this HEMATOCRIT AM CDT procedure are in the results section. BASIC METABOLIC PANEL Routine 06/03/2017 12:13 Results for this (7) AM CDT procedure are in the results section. CREATINE KINASE (CK), Routine 06/03/2017 12:13 Results for this TOTAL AND MB AM CDT procedure are in the results section. PREPARE PLASMA STAT 06/02/2017 11:54 Results for this PM CDT procedure are in the results section. PREPARE LEUKO-REDUCED STAT 06/02/2017 11:54 Results for this RBC PM CDT procedure are in the results section. BASIC METABOLIC PANEL Routine 06/02/2017 6:34 Results for this (7) PM CDT procedure are in the results section. POCT-GLUCOSE METER Routine 06/02/2017 5:49 Results for this PM CDT procedure are in the results section. TRANSFUSION SERVICE 06/02/2017 5:41 REPORT - SCAN PM CDT POCT-GLUCOSE METER Routine 06/02/2017 5:05 Results for this PM CDT procedure are in the results section. POCT-GLUCOSE METER Routine 06/02/2017 4:10 Results for this PM CDT procedure are in the results section. HEMOGLOBIN A1C AP Routine 06/02/2017 3:54 Results for this PM CDT procedure are in the results section. BASIC METABOLIC PANEL Routine 06/02/2017 3:54 Results for this (7) PM CDT procedure are in the results section. CREATINE KINASE (CK), Routine 06/02/2017 3:54 Results for this TOTAL AND MB PM CDT procedure are in the results section. POCT-GLUCOSE METER Routine 06/02/2017 3:10 Results for this PM CDT procedure are in the results section. POCT-GLUCOSE METER Routine 06/02/2017 2:08 Results for this PM CDT procedure are in the results section. POCT-GLUCOSE METER Routine 06/02/2017 1:04 Results for this PM CDT procedure are in the results section. PERIPHERAL VASCULAR 06/02/2017 12:50 REPORT - SCAN PM CDT XR ABDOMEN 1 VIEW STAT 06/02/2017 12:50 Results for this PM CDT procedure are in the results section. POCT-GLUCOSE METER Routine 06/02/2017 11:48 Results for this AM CDT procedure are in the results section. POCT-GLUCOSE METER Routine 06/02/2017 10:54 Results for this AM CDT procedure are in the results section. HEMOGLOBIN AND Routine 06/02/2017 10:23 Results for this HEMATOCRIT AM CDT procedure are in the results section. VENOUS DOPPLER ARM, JANE 06/02/2017 10:00 Results for this RIGHT AM CDT procedure are in the results section. GLUCOSE STAT 06/02/2017 8:45 Results for this AM CDT procedure are in the results section. AMMONIA Routine 06/02/2017 8:06 Results for this AM CDT procedure are in the results section. TROPONIN I Routine 06/02/2017 7:55 Results for this AM CDT procedure are in the results section. CREATINE KINASE (CK), Routine 06/02/2017 7:55 Results for this TOTAL AND MB AM CDT procedure are in the results section. POCT-GLUCOSE METER Routine 06/02/2017 5:49 Results for this AM CDT procedure are in the results section. BLOOD GAS, ARTERIAL Routine 06/02/2017 5:38 Results for this AM CDT procedure are in the results section. CBC W/PLT COUNT & AUTO Routine 06/02/2017 4:45 Results for this DIFFERENTIAL AM CDT procedure are in the results section. COMPREHENSIVE Routine 06/02/2017 4:45 Results for this METABOLIC PANEL AM CDT procedure are in the results section. PHOSPHORUS Routine 06/02/2017 4:45 Results for this AM CDT procedure are in the results section. MAGNESIUM Routine 06/02/2017 4:45 Results for this AM CDT procedure are in the results section. CBC W/PLT COUNT & AUTO Routine 06/02/2017 4:45 Results for this DIFFERENTIAL AM CDT procedure are in the results section. XR CHEST 1 VIEW Routine 06/02/2017 4:17 Results for this PORTABLE/BEDSIDE AM CDT procedure are in the results section. TROPONIN I Routine 06/02/2017 12:29 Results for this AM CDT procedure are in the results section. CREATINE KINASE (CK), Routine 06/02/2017 12:29 Results for this TOTAL AND MB AM CDT procedure are in the results section. POCT-GLUCOSE METER Routine 06/02/2017 12:12 Results for this AM CDT procedure are in the results section. PREPARE PLASMA Routine 06/01/2017 11:54 Results for this PM CDT procedure are in the results section. PREPARE LEUKO-REDUCED Routine 06/01/2017 11:54 Results for this RBC PM CDT procedure are in the results section. HEMOGLOBIN AND Routine 06/01/2017 10:17 Results for this HEMATOCRIT PM CDT procedure are in the results section. MAGNESIUM Routine 06/01/2017 10:17 Results for this PM CDT procedure are in the results section. PROTHROMBIN TIME/INR Routine 06/01/2017 10:17 Results for this PM CDT procedure are in the results section. TRANSFUSE PLASMA STAT 06/01/2017 6:55 PM CDT POCT-GLUCOSE METER Routine 06/01/2017 6:41 Results for this PM CDT procedure are in the results section. TRANSFUSE PLASMA STAT 06/01/2017 6:04 PM CDT TRANSFUSION SERVICE 06/01/2017 5:42 REPORT - SCAN PM CDT HEMOGLOBIN AND Routine 06/01/2017 5:33 Results for this HEMATOCRIT PM CDT procedure are in the results section. TROPONIN I Routine 06/01/2017 5:33 Results for this PM CDT procedure are in the results section. CREATINE KINASE (CK), Routine 06/01/2017 5:33 Results for this TOTAL AND MB PM CDT procedure are in the results section. TRANSFUSE STAT 06/01/2017 5:29 LEUKO-REDUCED RED PM CDT BLOOD CELLS XR CHEST 1 VIEW STAT 06/01/2017 5:07 Results for this PORTABLE/BEDSIDE PM CDT procedure are in the results section. BASIC METABOLIC PANEL STAT 06/01/2017 12:17 Results for this (7) PM CDT procedure are in the results section. POCT-GLUCOSE METER Routine 06/01/2017 12:16 Results for this PM CDT procedure are in the results section. LACTIC ACID, VENOUS Routine 06/01/2017 12:11 Results for this PM CDT procedure are in the results section. BLOOD GAS, ARTERIAL STAT 06/01/2017 12:11 Results for this PM CDT procedure are in the results section. PT/APTT Routine 06/01/2017 12:09 Results for this PM CDT procedure are in the results section. HEMOGLOBIN AND Routine 06/01/2017 12:09 Results for this HEMATOCRIT PM CDT procedure are in the results section. TROPONIN I Routine 06/01/2017 12:09 Results for this PM CDT procedure are in the results section. CREATINE KINASE (CK), Routine 06/01/2017 12:09 Results for this TOTAL AND MB PM CDT procedure are in the results section. ECG 12-LEAD Routine 06/01/2017 10:47 Results for this AM CDT procedure are in the results section. POCT-GLUCOSE METER Routine 06/01/2017 10:15 Results for this AM CDT procedure are in the results section. POCT-GLUCOSE METER Routine 06/01/2017 9:48 Results for this AM CDT procedure are in the results section. POCT-GLUCOSE METER Routine 06/01/2017 7:26 Results for this AM CDT procedure are in the results section. PERIPHERAL VASCULAR 06/01/2017 7:21 REPORT - SCAN AM CDT POCT-GLUCOSE METER Routine 06/01/2017 5:53 Results for this AM CDT procedure are in the results section. POCT-GLUCOSE METER Routine 06/01/2017 4:37 Results for this AM CDT procedure are in the results section. LACTIC ACID, VENOUS Routine 06/01/2017 4:05 Results for this AM CDT procedure are in the results section. BASIC METABOLIC PANEL Routine 06/01/2017 4:05 Results for this (7) AM CDT procedure are in the results section. PHOSPHORUS Routine 06/01/2017 4:05 Results for this AM CDT procedure are in the results section. MAGNESIUM Routine 06/01/2017 4:05 Results for this AM CDT procedure are in the results section. TROPONIN I Routine 06/01/2017 4:05 Results for this AM CDT procedure are in the results section. CREATINE KINASE (CK), Routine 06/01/2017 4:05 Results for this TOTAL AND MB AM CDT procedure are in the results section. XR CHEST 1 VIEW Routine 06/01/2017 4:03 Results for this PORTABLE/BEDSIDE AM CDT procedure are in the results section. CBC W/PLT COUNT & AUTO Routine 06/01/2017 1:46 Results for this DIFFERENTIAL AM CDT procedure are in the results section. CBC W/PLT COUNT & AUTO Routine 06/01/2017 1:46 Results for this DIFFERENTIAL AM CDT procedure are in the results section. POCT-GLUCOSE METER Routine 06/01/2017 12:21 Results for this AM CDT procedure are in the results section. PREPARE LEUKO-REDUCED Routine 05/31/2017 11:54 Results for this RBC PM CDT procedure are in the results section. POCT-GLUCOSE METER Routine 05/31/2017 10:28 Results for this PM CDT procedure are in the results section. LACTIC ACID, VENOUS Routine 05/31/2017 10:07 Results for this PM CDT procedure are in the results section. HEMOGLOBIN AND Routine 05/31/2017 9:41 Results for this HEMATOCRIT PM CDT procedure are in the results section. POCT-GLUCOSE METER Routine 05/31/2017 8:59 Results for this PM CDT procedure are in the results section. POCT-GLUCOSE METER Routine 05/31/2017 7:50 Results for this PM CDT procedure are in the results section. SPUTUM CULTURE + GRAM Routine 05/31/2017 6:38 Results for this STAIN PM CDT procedure are in the results section. POCT-GLUCOSE METER Routine 05/31/2017 6:37 Results for this PM CDT procedure are in the results section. TRANSFUSION SERVICE 05/31/2017 5:43 REPORT - SCAN PM CDT HEMOGLOBIN AND Routine 05/31/2017 5:37 Results for this HEMATOCRIT PM CDT procedure are in the results section. TROPONIN I Routine 05/31/2017 5:37 Results for this PM CDT procedure are in the results section. CREATINE KINASE (CK), Routine 05/31/2017 5:37 Results for this TOTAL AND MB PM CDT procedure are in the results section. POCT-GLUCOSE METER Routine 05/31/2017 5:35 Results for this PM CDT procedure are in the results section. ECHOCARDIOGRAM REPORT 05/31/2017 5:32 - SCAN PM CDT BLOOD GAS, ARTERIAL Routine 05/31/2017 5:21 Results for this PM CDT procedure are in the results section. EEG AWAKE/ASLEEP AND Routine 05/31/2017 4:46 Results for this SLEEP PM CDT procedure are in the results section. XR CHEST 1 VIEW Routine 05/31/2017 4:38 Results for this PORTABLE/BEDSIDE PM CDT procedure are in the results section. POCT-GLUCOSE METER Routine 05/31/2017 4:32 Results for this PM CDT procedure are in the results section. POCT-GLUCOSE METER Routine 05/31/2017 3:07 Results for this PM CDT procedure are in the results section. CAROTID DOPPLER Routine 05/31/2017 2:46 Results for this BILATERAL PM CDT procedure are in the results section. 2D ECHO W/ DOPPLER STAT 05/31/2017 1:12 Results for this (CW/PW/COLOR) PM CDT procedure are in the results section. ECG 12-LEAD Routine 05/31/2017 1:03 Results for this PM CDT procedure are in the results section. POCT-GLUCOSE METER Routine 05/31/2017 12:16 Results for this PM CDT procedure are in the results section. CBC W/PLT COUNT & AUTO Routine 05/31/2017 12:11 Results for this DIFFERENTIAL PM CDT procedure are in the results section. PHOSPHORUS Routine 05/31/2017 12:11 Results for this PM CDT procedure are in the results section. MAGNESIUM Routine 05/31/2017 12:11 Results for this PM CDT procedure are in the results section. BASIC METABOLIC PANEL Routine 05/31/2017 12:11 Results for this (7) PM CDT procedure are in the results section. CBC W/PLT COUNT & AUTO Routine 05/31/2017 12:11 Results for this DIFFERENTIAL PM CDT procedure are in the results section. HEMOGLOBIN AND Routine 05/31/2017 12:11 Results for this HEMATOCRIT PM CDT procedure are in the results section. LACTIC ACID, VENOUS Routine 05/31/2017 12:11 Results for this PM CDT procedure are in the results section. REPORT OF PROCEDURE - 05/31/2017 11:17 ENDOSCOPY URL AM CDT POCT-GLUCOSE METER Routine 05/31/2017 10:39 Results for this AM CDT procedure are in the results section. UPPER ENDOSCOPY 05/31/2017 10:00 Upper GI bleeding AM CDT POCT-GLUCOSE METER Routine 05/31/2017 9:51 Results for this AM CDT procedure are in the results section. POCT-GLUCOSE METER Routine 05/31/2017 8:54 Results for this AM CDT procedure are in the results section. POCT-GLUCOSE METER Routine 05/31/2017 7:58 Results for this AM CDT procedure are in the results section. TRANSFUSE Routine 05/31/2017 7:11 LEUKO-REDUCED RED AM CDT BLOOD CELLS POCT-GLUCOSE METER Routine 05/31/2017 6:45 Results for this AM CDT procedure are in the results section. HEMOGLOBIN A1C AP Routine 05/31/2017 6:35 Results for this AM CDT procedure are in the results section. CREATINE KINASE (CK), Routine 05/31/2017 6:35 Results for this TOTAL AND MB AM CDT procedure are in the results section. TROPONIN I Routine 05/31/2017 6:35 Results for this AM CDT procedure are in the results section. B-TYPE NATRIURETIC Routine 05/31/2017 6:35 Results for this FACTOR (BNP) AM CDT procedure are in the results section. ETHANOL Routine 05/31/2017 6:35 Results for this AM CDT procedure are in the results section. POCT-GLUCOSE METER Routine 05/31/2017 5:31 Results for this AM CDT procedure are in the results section. POCT-GLUCOSE METER Routine 05/31/2017 4:32 Results for this AM CDT procedure are in the results section. CBC W/PLT COUNT & AUTO Routine 05/31/2017 3:00 Results for this DIFFERENTIAL AM CDT procedure are in the results section. VANCOMYCIN LEVEL, Routine 05/31/2017 3:00 Results for this RANDOM AM CDT procedure are in the results section. LACTIC ACID, VENOUS Routine 05/31/2017 3:00 Results for this AM CDT procedure are in the results section. BASIC METABOLIC PANEL Routine 05/31/2017 3:00 Results for this (7) AM CDT procedure are in the results section. CALCIUM, IONIZED Routine 05/31/2017 3:00 Results for this AM CDT procedure are in the results section. PHOSPHORUS Routine 05/31/2017 3:00 Results for this AM CDT procedure are in the results section. MAGNESIUM Routine 05/31/2017 3:00 Results for this AM CDT procedure are in the results section. CBC W/PLT COUNT & AUTO Routine 05/31/2017 3:00 Results for this DIFFERENTIAL AM CDT procedure are in the results section. POCT-GLUCOSE METER Routine 05/31/2017 2:28 Results for this AM CDT procedure are in the results section. TRANSFUSE Routine 05/31/2017 1:35 LEUKO-REDUCED RED AM CDT BLOOD CELLS BLOOD CULTURE Routine 05/31/2017 1:22 Results for this AM CDT procedure are in the results section. BLOOD CULTURE Routine 05/31/2017 1:21 Results for this AM CDT procedure are in the results section. BASIC METABOLIC PANEL Add-On 05/30/2017 10:48 Results for this (7) PM CDT procedure are in the results section. HEPATIC FUNCTION PANEL Routine 05/30/2017 10:48 Results for this PM CDT procedure are in the results section. AMMONIA Routine 05/30/2017 10:48 Results for this PM CDT procedure are in the results section. XR ABDOMEN 1 VIEW Routine 05/30/2017 10:42 Results for this PM CDT procedure are in the results section. XR CHEST 1 VIEW STAT 05/30/2017 10:33 Results for this PORTABLE/BEDSIDE PM CDT procedure are in the results section. (CELLAVISION MANUAL Routine 05/30/2017 10:10 Results for this DIFF) PM CDT procedure are in the results section. CBC W/PLT COUNT & AUTO Routine 05/30/2017 10:10 Results for this DIFFERENTIAL PM CDT procedure are in the results section. TYPE AND SCREEN, Routine 05/30/2017 10:10 Results for this AUTOMATED PM CDT procedure are in the results section. URINALYSIS W/ Routine 05/30/2017 10:10 Results for this MICROSCOPIC PM CDT procedure are in the results section. FIBRINOGEN Routine 05/30/2017 10:10 Results for this PM CDT procedure are in the results section. PROTHROMBIN TIME/INR Routine 05/30/2017 10:10 Results for this PM CDT procedure are in the results section. CBC W/PLT COUNT & AUTO Routine 05/30/2017 10:10 Results for this DIFFERENTIAL PM CDT procedure are in the results section. URINE CULTURE Routine 05/30/2017 10:10 Results for this PM CDT procedure are in the results section. MAGNESIUM Routine 05/30/2017 10:03 Results for this PM CDT procedure are in the results section. BLOOD GAS, VENOUS Routine 05/30/2017 10:03 Results for this PM CDT procedure are in the results section. CALCIUM, IONIZED Routine 05/30/2017 10:03 Results for this PM CDT procedure are in the results section. PHOSPHORUS Routine 05/30/2017 10:03 Results for this PM CDT procedure are in the results section. after 05/03/2017 Results Transfuse plasma (03/15/2018 5:30 PM [employer]QU[employer]ACHINE [employer]PER[employer])Only the most recent of6 resultswithin the time period is included.RHYTHM STRIP - SCAN (07/27/2017 2:51 PM CDT)Only the most recent of2 resultswithin the time period is included. Narrative Performed At EKG-SCANNED (06/20/2017 2:52 PM CDT) Narrative Performed At POC-Glucose meter (06/19/2017 4:24 PM CDT)Only the most recent of103 resultswithin the time period is included. POC-Glucose Meter 202 (H)Comment: TESTED AT 70 - 110 mg/dL [facility] [address] [facility] [id number] Specimen Blood Performing Organization Address City/[facility] Phone Number [address] [address] [phone] [place] Phosphorus (06/19/2017 7:18 AM CDT)Only the most recent of22 resultswithin the time period is included. Phosphorus 2.7 2.3 - 4.7 mg/dL [facility] Specimen Blood Performing Organization Address City/[facility] Phone Number [address] [address] [place] Magnesium (06/19/2017 7:18 AM CDT)Only the most recent of25 resultswithin the time period is included. Magnesium 1.4 (L) 1.6 - 2.6 mg/dL [facility] Specimen Blood Performing Organization Address [facility] Phone Number [address] [address] [phone] [place] Comprehensive metabolic panel (06/19/2017 7:18 AM CDT)Only the most recent of3 resultswithin the time period is included. Protein, Total 6.7 6.0 - 8.3 gm/dL [facility] Albumin 3.3 (L) 3.5 - 5.0 g/dL [facility] Alkaline Phosphatase 64 40 - 150 U/L [facility] Total Bilirubin 0.5 0.2 - 1.2 mg/dL [facility] Sodium 141 136 - 145 meq/L [facility] Potassium 3.3 (L) 3.5 - 5.1 meq/L [facility] Chloride 106 98 - 107 meq/L [facility] CO2 24 22 - 29 meq/L [facility] BUN 16 7 - 21 mg/dL [facility] Creatinine 1.18 0.57 - 1.25 mg/dL [facility] Glucose 118 (H) 70 - 105 mg/dL [facility] Calcium 8.9 8.4 - 10.2 mg/dL [facility] AST 15 5 - 34 U/L [facility] ALT 12 6 - 55 U/L [facility] EGFR 59Comment: ESTIMATED GFR mL/min/1.73 sq m [facility] IS NOT ACCURATE [facility] CREATININE CLEARANCE IN PREDICTING GLOMERULAR FILTRATION RATE. ESTIMATED GFR IS NOT APPLICABLE FOR DIALYSIS PATIENTS. Specimen Blood Performing Organization Address City/State/Zipcode Phone Number [facility] [address] [place] [address] CENTER CBC with platelet count + automated diff (06/18/2017 11:58 PM CDT)Only the most recent of22 resultswithin the time period is included. WBC 6.8 3.5 - 10.5 K/L [facility] RBC 2.68 (L) 4.63 - 6.08 M/L [facility] Hemoglobin 7.8 (L) 13.7 - 17.5 GM/DL [facility] Hematocrit 24.9 (L) 40.1 - 51.0 % [facility] MCV 92.9 (H) 79.0 - 92.2 fL [facility] MCH 29.1 25.7 - 32.2 pg [facility] MCHC 31.3 (L) 32.3 - 36.5 GM/DL [facility] RDW 16.9 (H) 11.6 - 14.4 % [facility] Platelets 306 150 - 450 K/CU MM [facility] MPV 9.3 (L) 9.4 - 12.4 fL [facility] nRBC 0 0 - 0 /100 WBC [facility] % Neutros 47 % [facility] % Lymphs 34 % [facility] % Monos 11 % [facility] % Eos 6 % [facility] % Baso 1 % [facility] # Neutros 3.17 1.78 - 5.38 K/L [facility] # Lymphs 2.28 1.32 - 3.57 K/L [facility] # Monos 0.77 0.30 - 0.82 K/L [facility] # Eos 0.43 0.04 - 0.54 K/L [facility] # Baso 0.06 0.01 - 0.08 K/L [facility] Immature Granulocytes-Relative 1 0 - 1 % [facility] Specimen Blood Performing Organization Address City/State/Zipcode Phone Number [facility] [address] [place] [address] CENTER Basic Metabolic Panel (06/18/2017 4:44 AM CDT)Only the most recent of32 resultswithin the time period is included. Sodium 137 136 - 145 meq/L [facility] Potassium 3.0 (L) 3.5 - 5.1 meq/L [facility] Chloride 103 98 - 107 meq/L [facility] CO2 23 22 - 29 meq/L [facility] BUN 15 7 - 21 mg/dL [facility] Creatinine 1.22 0.57 - 1.25 mg/dL [facility] Glucose 116 (H) 70 - 105 mg/dL [facility] Calcium 8.4 8.4 - 10.2 mg/dL [facility] EGFR 57Comment: ESTIMATED GFR IS mL/min/1.73 sq m [facility] NOT ACCURATE [facility] CLEARANCE IN PREDICTING GLOMERULAR FILTRATION RATE. ESTIMATED GFR IS NOT APPLICABLE FOR DIALYSIS PATIENTS. Specimen Blood - Central Venous Line Performing Organization Address City/[facility]/Zipcode Phone Number [facility] [address] [place] [phone] CENTER Prothrombin time/INR (06/15/2017 2:42 AM CDT)Only the most recent of3 resultswithin the time period is included. Protime 15.7 (H) 11.7 - 14.7 seconds [facility] INR 1.3 <=5.9 [facility] Specimen Blood Narrative Performed At [facility] RECOMMENDED COUMADIN/WARFARIN INR THERAPY RANGES STANDARD DOSE: 2.0 - 3.0 Includes: PROPHYLAXIS for venous thrombosis, systemic embolization; TREATMENT for venous thrombosis and/or pulmonary embolus. HIGH RISK: Target INR is 2.5-3.5 for patients with mechanical heart valves. Performing Organization Address City/[facility] Phone Number [address] [address] CENTER Manual Differential (06/14/2017 5:42 AM CDT)Only the most recent of2 resultswithin the time period is included. % Neutros 50 % [facility] % Lymphs 33 % [facility] % Monos 9 % [facility] % Eos 6 % [facility] % Baso 1 % [facility] % Bands 1 0 - 10 % [facility] # Neutros 3.00 1.78 - 5.38 K/ul [facility] # Lymphs 1.98 1.32 - 3.57 K/ul [facility] # Monos 0.54 0.30 - 0.82 K/uL [facility] # Eos 0.36 0.04 - 0.54 K/uL [facility] # Baso 0.06 0.01 - 0.08 K/uL [facility] # Bands 0.06 0.00 - 0.80 K/uL [facility] Total Counted 100 [facility] WBC Morphology Normal [facility] Platelet Morphology Normal [facility] Anisocytosis 1+ few [facility] Macrocytes 1+ few [facility] Artifact Present [facility] Platelet Conc Adequate [facility] Specimen Blood - Line, Venous Narrative Performed At Received comment: [facility] User comments: Slide comments: Performing Organization Address City/[facility] Phone Number [address] [address] CENTER TRANSFUSION SERVICE REPORT - SCAN (06/12/2017 5:40 PM CDT)Only the most recent of5 resultswithin the time period is included. Narrative Performed At Type and screen, automated (06/11/2017 5:23 AM CDT)Only the most recent of2 resultswithin the time period is included. ABO/RH AUTOMATED (BEAKER) A NEGATIVE [facility] Ab Scrn NEGATIVE [facility] Specimen Blood Performing Organization Address City/[facility]/Zipcode Phone Number [address] [address] Vancomycin level, random (06/11/2017 5:23 AM CDT)Only the most recent of2 resultswithin the time period is included. Vancomycin Rm 31.8 ug/mL [facility] Specimen Blood Narrative Performed At [facility] Reference Range: No Normals Performing Organization Address City/State/Zipcode Phone Number [facility] [address] [place] [address] [phone] CENTER Blood culture (06/09/2017 3:42 PM CDT)Only the most recent of8 resultswithin the time period is included. Result No growth in 5 days [facility] Specimen Blood - Line, Venous Performing Organization Address [facility] Hospital[facility] Phone Number [address] [address] [place] Blood gas, venous (06/08/2017 5:58 PM CDT)Only the most recent of3 resultswithin the time period is included. pH, Pb 7.46 (H) 7.32 - 7.42 [facility] pCO2, Pb 48 41 - 51 mmHg [facility] pO2, Pb 18 (L) 25 - 40 mmHg [facility] O2 Sat, Pb 29.8 (L) 40.0 - 70.0 % [facility] HCO3, Pb 33 (H) 21 - 29 mmol/L [facility] Base Excess, Pb 8.6 (H) -2.0 - 3.0 mmol/L [facility] Patient Temperature 37.0 C [facility] Specimen Blood - Arm, Left Narrative Performed At From midline [facility] Performing Organization Address City/[facility] Hospital[facility] Phone Number [address] [address] [phone] CENTER Vitamin B12 and Folate (06/08/2017 4:54 AM CDT) Vitamin B12 508 213 - 816 pg/mL [facility] Folate 16.5 >=7.0 ng/mL [facility] Specimen Blood Performing Organization Address City/[facility]/Zipcode Phone Number [address] [address] [place] Iron, TIBC, % sat. (without ferritin) (06/08/2017 4:54 AM CDT) Iron 15 (L) 40 - 160 ug/dL [facility] TIBC 183 (L) 250 - 450 ug/dL [facility] Iron % Saturation 8 (L) 20 - 55 % [facility] Specimen Blood Performing Organization Address City/[facility] Phone Number [address] [address] [phone] [place] Ferritin (06/08/2017 4:54 AM CDT) Ferritin 334 (H) 5 - 275 ng/mL [facility] Specimen Blood Performing Organization Address [facility] [address] [place] XR abdomen / KUB 1 view (06/07/2017 10:27 PM CDT)Only the most recent of5 resultswithin the time period is included. Narrative Performed At FINAL REPORT GE RIS Comparison: 06/07/2017 at 9:51 PM TECHNIQUE: Frontal image of the abdomen FINDINGS: Feeding tube has been repositioned. Tip now projects in the distal stomach. No other significant change. Signed: Kali Shay MD Report Verified Date/Time:06/07/2017 22:29:27 Reading Location: [address] Consult Reading Room Procedure Note Interface, External Ris In - 06/07/2017 10:31 PM CDT FINAL REPORT Comparison: 06/07/2017 at 9:51 PM TECHNIQUE: Frontal image of the abdomen FINDINGS: Feeding tube has been repositioned. Tip now projects in the distal stomach. No other significant change. Signed: Kali Shay MD Report Verified Date/Time: 06/07/2017 22:29:27 Reading Location: [facility] C013 Consult Reading Room Performing Organization Address [facility] Phone Number GE RIS Procalcitonin (06/07/2017 4:37 PM CDT) Procalcitonin <0.05 <0.05 ng/mL [facility] Specimen Blood - Central Venous Line Narrative Performed At [facility] SEPSIS RISK (ng/mL) Low:0.05-0.50 Intermediate: 0.51-2.00 High: >=2.01 Performing Organization Address [facility] Hospital[facility] Phone Number [address] [address] [phone] [place] Reticulocyte count (06/07/2017 4:37 PM CDT) % Retic 2.7 (H) 0.5 - 1.8 % [facility] Specimen Blood - Central Venous Line Performing Organization Address [facility] Phone Number [address] [address] [phone] [place] Troponin I (06/07/2017 5:04 AM CDT)Only the most recent of8 resultswithin the time period is included. Troponin I 0.03 0.00 - 0.03 ng/mL [facility] Specimen Blood Narrative Performed At [facility] Troponin I (TnI) levels must be interpreted in the context of the presenting symptoms and the clinical findings. Elevated TnI levels indicate myocardial damage, but are not specific for ischemic heart disease. Elevated TnI levels are seen in patients with other cardiac conditions (including myocarditis and congestive heart failure), and slight TnI elevations occur in patients with other conditions, including sepsis, renal failure, acidosis, acute neurological disease, and persistent tachyarrhythmia. Performing Organization Address [facility] Phone Number [address] [address] [place] Lactic acid, venous, whole blood (06/07/2017 5:04 AM CDT)Only the most recent of9 resultswithin the time period is included. Lactate, Venous 0.9 0.5 - 2.2 mmol/L [facility] Specimen Blood Narrative Performed At [facility] Effective 06/10/2015: Units/Reference Range Change New: 0.5-2.2 mmol/LPrevious: 5-20 mg/dL Performing Organization Address City/[facility] Phone Number [facility] [address] [place] [address] [phone] CENTER XR chest 1 view portable / bedside (06/07/2017 3:54 AM CDT)Only the most recent of11 resultswithin the time period is included. Narrative Performed At FINAL REPORT RIS Chest one view compared to June 06, 2017 Discussion: Left chest pacemaker, feeding tube, right IJ line in place. There is pulmonary congestion with subtle suspected airspace opacity left lung base all unchanged. No gross effusion or pneumothorax. Signed: Jerel Noguera MD Report Verified Date/Time:06/07/2017 08:42:41 Reading Location: [facility] Radiology Reading Room Procedure Note Interface, External Ris In - 06/07/2017 8:44 AM CDT FINAL REPORT Chest one view compared to June 06, 2017 Discussion: Left chest pacemaker, feeding tube, right IJ line in place. There is pulmonary congestion with subtle suspected airspace opacity left lung base all unchanged. No gross effusion or pneumothorax. Signed: Jerel Noguera MD Report Verified Date/Time: 06/07/2017 08:42:41 Reading Location: [facility] Radiology Reading Room Performing Organization Address [facility] Phone Number [facility] B-type Natriuretic Factor (BNP) (06/07/2017 12:00 AM CDT)Only the most recent of2 resultswithin the time period is included. BNP 661 (H) 0 - 100 pg/mL [facility] Specimen Blood Performing Organization Address City/[facility] Phone Number [address] [address] CENTER Sputum Culture + Gram Stain (06/06/2017 8:56 AM CDT)Only the most recent of2 resultswithin the time period is included. Result METHICILLIN RESISTANT [facility] STAPHYLOCOCCUS AUREUS (A) MEDICAL CENTER Result BETA-HEMOLYTIC STREPTOCOCCUS, [facility] NON-GROUP A, NON-GROUP B MEDICAL [place] (A)Comment: Identified by serological grouping. Gram Stain Result No WBCs [facility] Gram Stain Result 0-5 epithelial cells [facility] Gram Stain Result No organisms seen [facility] Specimen Aspirate - Endotracheal Narrative Performed At <1+ Normal respiratory melanie present [facility] Organism Antibiotic Method Susceptibility Methicillin resistant Clindamycin Resistant Staphylococcus aureus Methicillin resistant Erythromycin >=8: Resistant Staphylococcus aureus Methicillin resistant Linezolid 2: Susceptible Staphylococcus aureus Methicillin resistant Oxacillin >=4: Resistant Staphylococcus aureus Methicillin resistant Rifampin <=0.5: Susceptible Staphylococcus aureus Methicillin resistant Tetracycline <=1: Susceptible Staphylococcus aureus Methicillin resistant Trimethoprim + <=10: Susceptible Staphylococcus aureus Sulfamethoxazole Methicillin resistant Vancomycin 1: Susceptible Staphylococcus aureus Performing Organization Address [facility] Phone Number [address] [address] CENTER Calcium, Ionized (06/06/2017 4:01 AM CDT)Only the most recent of3 resultswithin the time period is included. Calcium, Ion 1.08 (L) 1.12 - 1.27 mmol/L [facility] pH, Blood 7.42 [facility] Specimen Blood - Central Venous Line Performing Organization Address [facility]/Zipcode Phone Number [address] [address] [place] Vancomycin level, trough (06/05/2017 9:18 PM CDT) Vancomycin Tr 21.4 (H) 10.0 - 20.0 ug/mL [facility] Specimen Blood - Central Venous Line Performing Organization Address City/State/Zipcode Phone Number [facility] [address] [place] [address] [place] Creatine Kinase (CK), Total and MB (06/05/2017 9:39 AM CDT)Only the most recent of16 resultswithin the time period is included. Total CK 45 29 - 200 U/L [facility] CK-MB 0.5 0.0 - 6.6 ng/mL [facility] MB Relative Index 1.1 % [facility] Specimen Blood - Central Venous Line Narrative Performed At CK-MB Reference Range: [facility] <6.7Normal 6.7-10.0Borderline >10.0 Abnormal Performing Organization Address City/[facility] Phone Number [facility] [address] [place] [address] [phone] [place] [address] brain without IV contrast (06/04/2017 3:11 PM CDT) Narrative Performed At FINAL REPORT [facility] CT Head without contrast CLINICAL HISTORY: Confusion/delirium, altered LOC, unexplained TECHNIQUE: Contiguous axial images through the head without contrast. This exam was performed according to the departmental dose optimization program which includes automated exposure control, adjustment of the mA and/or kV according to the patient size, and/or use of an iterative reconstruction technique. COMPARISON: 02/06/2011 FINDINGS: There is no CT evidence of acute infarct or intracranial hemorrhage. There is periventricular and subcortical white matter hypodensity which is nonspecific but compatible with chronic microvascular ischemic change. There are atherosclerotic calcifications of the intracranial circulation. There is generalized parenchymal volume loss without hydrocephalus, midline shift, or apparent mass effect. There are no extra-axial fluid collections. The skull is intact. There is fluid in the paranasal sinuses with support tubing in place. IMPRESSION: No CT evidence of acute infarct, hemorrhage, or hydrocephalus. Signed: Lisa Hardy MD Report Verified Date/Time:06/04/2017 15:33:02 Reading Location: [facility] C013V Neuro Reading Room Procedure Note Interface, External Ris In - 06/04/2017 3:35 PM CDT FINAL REPORT CT Head without contrast CLINICAL HISTORY: Confusion/delirium, altered LOC, unexplained TECHNIQUE: Contiguous axial images through the head without contrast. This exam was performed according to the departmental dose optimization program which includes automated exposure control, adjustment of the mA and/or kV according to the patient size, and/or use of an iterative reconstruction technique. COMPARISON: 02/06/2011 FINDINGS: There is no CT evidence of acute infarct or intracranial hemorrhage. There is periventricular and subcortical white matter hypodensity which is nonspecific but compatible with chronic microvascular ischemic change. There are atherosclerotic calcifications of the intracranial circulation. There is generalized parenchymal volume loss without hydrocephalus, midline shift, or apparent mass effect. There are no extra-axial fluid collections. The skull is intact. There is fluid in the paranasal sinuses with support tubing in place. IMPRESSION: No CT evidence of acute infarct, hemorrhage, or hydrocephalus. Signed: Lisa Hardy MD Report Verified Date/Time: 06/04/2017 15:33:02 Reading Location: [address] Neuro Reading Room Performing Organization Address City/State/Zipcode Phone Number [employer] US abdomen limited (06/04/2017 5:05 AM CDT) Narrative Performed At Addendum Begins [employer] REPORT STATUS:A Indication: Right upper quadrant pain. Signed: Marci Levine MD Report Verified Date/Time:06/29/2017 05:54:07 Reading Location: [facility] C013Y CT Body Reading Room Addendum Ends FINAL REPORT U/S, ABDOMINAL, LIMITED INDICATION: "r/o cirrhosis" COMPARISON: None TECHNIQUE:Real-time transabdominal stewart scale and color Doppler ultrasound of the abdominal right upper quadrant. FINDINGS: Visualized portion of the pancreas is normal. Normal liver echotexture and echogenicity without a discrete mass or intrahepatic bile duct dilation. Normal caliber CBD at 5 mm. Surgically absent gallbladder. Visualized portion of the right kidney is unremarkable without obvious hydronephrosis. Visualized portions of the IVC and aorta are unremarkable. IMPRESSION: No sonographic evidence of cirrhosis. Signed: Marci Levine MD Report Verified Date/Time:06/04/2017 06:44:53 Reading Location: [facility] C013X Ortho Consult Reading Room Procedure Note Interface, External Ris In - 06/29/2017 5:56 AM CDT Addendum Begins REPORT STATUS:A Indication: Right upper quadrant pain. Signed: Marci Levine MD Report Verified Date/Time: 06/29/2017 05:54:07 Reading Location: [facility] C013Y CT Body Reading Room Addendum Ends FINAL REPORT U/S, ABDOMINAL, LIMITED INDICATION: "r/o cirrhosis" COMPARISON: None TECHNIQUE: Real-time transabdominal stewart scale and color Doppler ultrasound of the abdominal right upper quadrant. FINDINGS: Visualized portion of the pancreas is normal. Normal liver echotexture and echogenicity without a discrete mass or intrahepatic bile duct dilation. Normal caliber CBD at 5 mm. Surgically absent gallbladder. Visualized portion of the right kidney is unremarkable without obvious hydronephrosis. Visualized portions of the IVC and aorta are unremarkable. IMPRESSION: No sonographic evidence of cirrhosis. Signed: Marci Levine MD Report Verified Date/Time: 06/04/2017 06:44:53 Reading Location: [facility] C013X Ortho Consult Reading Room Performing Organization Address City/State/Zipcode Phone Number [facility] Blood gas, arterial (06/04/2017 3:57 AM CDT)Only the most recent of7 resultswithin the time period is included. pH, Arterial 7.44 7.35 - 7.45 [facility] pCO2, Arterial 33 (L) 35 - 45 mmHg [facility] pO2, Arterial 190 (H) 80 - 90 mmHg [facility] O2 Sat, Arterial 99.4 (H) 96.0 - 97.0 % [facility] HCO3, Arterial 22 21 - 29 mmol/L [facility] Base Excess, Arterial -1.8 -2.0 - 3.0 mmol/L [facility] Patient Temperature 37.5 C [facility] FIO2 50.0 % [facility] Specimen Blood, Arterial Performing Organization Address [facility] Phone Number [address] [address] [place] Hemoglobin and hematocrit (06/03/2017 11:54 PM CDT)Only the most recent of11 resultswithin the time period is included. Hemoglobin 7.8 (L) 13.7 - 17.5 GM/DL [facility] Hematocrit 25.1 (L) 40.1 - 51.0 % [facility] Specimen Blood Performing Organization Address [facility] Phone Number [address] [address] [phone] [place] Hepatitis B Panel (06/03/2017 12:31 PM CDT) Hep B Core Total Ab NON-REACTIVE Nonreactive [facility] Hep B S Ab 22.2 (H) <8.0 mIU/mL [facility] hepatitis B Surface Ag NON-REACTIVE Nonreactive [facility] Specimen Blood - Central Venous Line Performing Organization Address [facility] Phone Number [address] [address] [place] Hepatitis A Panel (06/03/2017 12:31 PM CDT) Hep A IgM HEPATITIS A TEST NEGATIVE Nonreactive [facility] Hep A IgG Reactive (A) Nonreactive [facility] Specimen Blood - Central Venous Line Performing Organization Address [facility] Phone Number [address] [address] [place] Hepatitis C antibody (06/03/2017 12:31 PM CDT) Hepatitis C Ab NON-REACTIVE Nonreactive [facility] Specimen Blood - Central Venous Line Performing Organization Address [facility] Phone Number [address] [address] [phone] CENTER Prepare Leuko-Red RBC (06/02/2017 11:54 PM CDT)Only the most recent of3 resultswithin the time period is included. CROSSMATCH COMPATIBLE [facility] TX Unit ABO A Neg [facility] UNIT NUMBER [id number] [facility] Status TRANSFUSED [facility] Blood Bank Product RED BLOOD CELLS [facility] PRODUCT CODE [id number] [facility] Specimen Other Performing Organization Address [facility] Phone Number [facility] Prepare plasma (06/02/2017 11:54 PM CDT)Only the most recent of2 resultswithin the time period is included. Unit ABO A Pos [facility] UNIT NUMBER [id number] [facility] [place] Status TRANSFUSED [facility] TX Blood Bank Product FFP [facility] [place] PRODUCT CODE [id number] [facility] TX Unit ABO A Neg [facility] TX UNIT NUMBER [id number] [facility] TX Status TRANSFUSED S[facility]ET[facility] TX Blood Bank Product FFP [facility] [place] PRODUCT CODE [id number] [facility] [place] Specimen Blood Performing Organization Address [facility] Phone Number [facility] Hemoglobin A1c (06/02/2017 3:54 PM CDT)Only the most recent of2 resultswithin the time period is included. Hemoglobin A1C 5.5 4.3 - 6.1 % [facility] Specimen Blood - Central Venous Line Performing Organization Address [facility] Phone Number [address] [address] [place] PERIPHERAL VASCULAR REPORT - SCAN (06/02/2017 12:50 PM CDT)Only the most recent of2 resultswithin the time period is included. Narrative Performed At Venous doppler arm, right (06/02/2017 10:00 AM CDT) Ejection Fraction [facility] Impressions Performed At Right Impression [facility] 1. The jugular vein is not visualized due to lines and bandages. 2. There is no deep venous obstruction in the subclavian, axillary, brachial, radial or ulnar veins. 3. There is no superficial venous obstruction in the cephalic or basilic veins. Left Impression NOT ORDERED. Conclusions Summary Venous duplex imaging and compression of the right upper extremity were performed. The veins were adequately visualized. The right deep venous system was patent and compressible with no evidence of thrombus. The right superficial venous system was patent and compressible with no evidence of thrombus. Signature Velocities are measured in cm/s ; Diameters are measured in cm Narrative Performed At [facility] - Upper Extremities Veins [facility] Demographics Patient NameEVKATALINA, ELOY Date of Study 06/02/2017 MALCOLM 82 Visit [id number] Male of 1935 Number Referring Everardo CostelloRoom Number [id number] Physician Case Folder Manny Reid. InterpretingJ. Danny Perez RVT, ORALIA Alex MD Procedure Type of Study: Veins: Upper Extremities Veins, VENOUS DOPPLER ARM, RIGHT. Indications for Study:Edema. Patient Status:JANE. Study Location:Portable. Technical Quality:Adequate visualization. Risk Factors History of Disease +---------+----+ + !Diagnosis!Date!Comments ! +---------+----+ + !Other!!A-FIB, DM, ETOH, HTN, Heart Bypass, Obesity! +---------+----+ + Procedure Note Interface, External Ris In - 06/02/2017 12:15 PM CDT [facility] LAB - Upper Extremities Veins Demographics Patient Name ELOY STAPLES Date of Study 06/02/2017 MALCOLM Age 82 Visit Number [id number] Gender Male Date of 1935 Number Referring Everardo Costello Room Number 6A12 Physician Case Folder Manny Reid. Interpreting KATHY HorowitzT, ARDMS Physician , RPDARLIN Procedure Type of Study: Veins: Upper Extremities Veins, VENOUS DOPPLER ARM, RIGHT. Indications for Study:Edema. Patient Status:JANE. Study Location:Portable. Technical Quality:Adequate visualization. Risk Factors History of Disease +---------+----+ + !Diagnosis!Date!Comments ! +---------+----+ + !Other ! !A-FIB, DM, ETOH, HTN, Heart Bypass, Obesity ! +---------+----+ + Impressions Right Impression 1. The jugular vein is not visualized due to lines and bandages. 2. There is no deep venous obstruction in the subclavian, axillary, brachial, radial or ulnar veins. 3. There is no superficial venous obstruction in the cephalic or basilic veins. Left Impression NOT ORDERED. Conclusions Summary Venous duplex imaging and compression of the right upper extremity were performed. The veins were adequately visualized. The right deep venous system was patent and compressible with no evidence of thrombus. The right superficial venous system was patent and compressible with no evidence of thrombus. Signature Velocities are measured in cm/s ; Diameters are measured in cm Performing Organization Address City/[facility]/[employer] Phone Number [facility] Glucose-STAT (06/02/2017 8:45 AM CDT) Glucose 230 (H) 70 - 105 mg/dL [facility] Specimen Blood - Central Venous Line Performing Organization Address City/[facility]/[employer] Phone Number [phone] [place] [address] [phone] CENTER Ammonia (06/02/2017 8:06 AM CDT)Only the most recent of2 resultswithin the time period is included. Ammonia 52 18 - 72 mol/L [facility] Specimen Blood - Central Venous Line Performing Organization Address [facility] Phone Number [address] [address] [phone] [place] Transfuse Leuko-Red RBC (06/01/2017 5:29 PM CDT)Only the most recent of6 resultswithin the time period is included.PT/aPTT (06/01/2017 12:09 PM CDT) Protime 21.1 (H) 11.7 - 14.7 seconds [facility] INR 1.8 <=5.9 [facility] PTT 38.1 (H) 22.5 - 36.0 seconds [facility] Specimen Blood Narrative Performed At [facility] RECOMMENDED COUMADIN/WARFARIN INR THERAPY RANGES STANDARD DOSE: 2.0 - 3.0 Includes: PROPHYLAXIS for venous thrombosis, systemic embolization; TREATMENT for venous thrombosis and/or pulmonary embolus. HIGH RISK: Target INR is 2.5-3.5 for patients with mechanical heart valves. Performing Organization Address [facility] Phone Number [address] [address] [phone] [place] ECG 12 lead (06/01/2017 10:47 AM CDT)Only the most recent of2 resultswithin the time period is included. Narrative Performed At Ventricular Rate 95 BPM GE MUSE Atrial Rate 49 BPM QRS Duration 86 ms Q-T Interval 386 ms QTC Calculation(Bazett) 485 ms R Cherry -19 degrees T Cherry 157 degrees Atrial fibrillation with premature ventricular or aberrantly conducted complexes Low voltage QRS Cannot rule out Anterior infarct , age undetermined Nonspecific T wave abnormality Prolonged QT Abnormal ECG When compared with ECG of31 May 2017 13:03 T wave inversion now seen in II and V4-V6 QT has lengthened Confirmed by MD MTZ YOCHAI ([id number]) on 06/06/2017 7:35:59 AM Procedure Note Interface, External Ris In - 06/06/2017 7:36 AM CDT Ventricular Rate 95 BPM Atrial Rate 49 BPM QRS Duration 86 ms Q-T Interval 386 ms QTC Calculation(Bazett) 485 ms R Cherry -19 degrees T Cherry 157 degrees Atrial fibrillation with premature ventricular or aberrantly conducted complexes Low voltage QRS Cannot rule out Anterior infarct , age undetermined Nonspecific T wave abnormality Prolonged QT Abnormal ECG When compared with ECG of 31 May 2017 13:03 T wave inversion now seen in II and V4-V6 QT has lengthened Confirmed by MD MTZ YOCHAI ([id number]) on 06/06/2017 7:35:59 AM Performing Organization Address City/State/Zipcode Phone Number [employer] ECHOCARDIOGRAM REPORT - SCAN (05/31/2017 5:32 PM CDT) Narrative Performed At EEG AWAKE/ASLEEP (05/31/2017 4:46 PM CDT) Narrative Performed At Date(s) of EE05/31/17 [employer] ACC: [id number] EEG Number: [id number] Test Location: Inpatient ICU Start time: 16:25 Stop time: 16:46 ICD-10:G93.40 CPT Code: 14255 HISTORY: 82 years-old with GI bleed and AMS MEDICATIONS THAT COULD AFFECT EEG:Propofol TECHNICAL SUMMARY: This is a digital video-EEG recorded with 32 input channels reviewed with bipolar and referential montages using the modified combinatorial system nomenclature. DESCRIPTION OF RECORD: During the stimulated state, the background frequency spectrum consists primarily of diffuse, 4-6 Hz theta, 2-3 Hz widespread but fronto-centrally predominant delta, as well as some diffuse beta. Frequently, bisynchronous and broad-based diphasic or triphasic sharp transients emerge, and typically show anterior maximum. Neither an occipital dominant rhythm, nor an organized frequency amplitude gradient is well demonstrable. SLEEP: With drowsiness, increased amounts of semi-rhythmic 1.5-3 Hz delta slowing emerge. Sleep architectures are not evident in this study. SIGNIFICANT VIDEO EVENTS: None SIGNIFICANT ELECTROCARDIOGRAM EVENTS: None IMPRESSION: Abnormal Awake and Drowsy EEG 1. Moderate diffuse slowing 2. Triphasic potentials There is no evidence for electrographic seizure in this record. CLINICAL CORRELATION: Diffuse slowing as in this study supports the presence of a moderate encephalopathy. Triphasic wave potentials represent a nonspecific finding that is typically associated with metabolic/toxic disturbances, as well as with other settings of widespread, non-metabolic TUMBLER PLATER insults (such as trauma or aftermath of significant seizures). Jovanny Montanez M.D. Neurophysiology Fellow, PGY5 Rikki Zayas M.D. Clinical Neurophysiology/Epilepsy Attending Procedure Note Interface, External Ris In - 05/31/2017 5:06 PM CDT Date(s) of EE05/31/17 ACC: [id number] EEG Number: [id number] Test Location: Inpatient ICU Start time: 16:25 Stop time: 16:46 ICD-10: G93.40 CPT Code: 85707 HISTORY: 82 years-old with GI bleed and AMS MEDICATIONS THAT COULD AFFECT EEG: Propofol TECHNICAL SUMMARY: This is a digital video-EEG recorded with 32 input channels reviewed with bipolar and referential montages using the modified combinatorial system nomenclature. DESCRIPTION OF RECORD: During the stimulated state, the background frequency spectrum consists primarily of diffuse, 4-6 Hz theta, 2-3 Hz widespread but fronto-centrally predominant delta, as well as some diffuse beta. Frequently, bisynchronous and broad-based diphasic or triphasic sharp transients emerge, and typically show anterior maximum. Neither an occipital dominant rhythm, nor an organized frequency amplitude gradient is well demonstrable. SLEEP: With drowsiness, increased amounts of semi-rhythmic 1.5-3 Hz delta slowing emerge. Sleep architectures are not evident in this study. SIGNIFICANT VIDEO EVENTS: None SIGNIFICANT ELECTROCARDIOGRAM EVENTS: None IMPRESSION: Abnormal Awake and Drowsy EEG 1. Moderate diffuse slowing 2. Triphasic potentials There is no evidence for electrographic seizure in this record. CLINICAL CORRELATION: Diffuse slowing as in this study supports the presence of a moderate encephalopathy. Triphasic wave potentials represent a nonspecific finding that is typically associated with metabolic/toxic disturbances, as well as with other settings of widespread, non-metabolic TUMBLER PLATER insults (such as trauma or aftermath of significant seizures). Jovanny Montanez M.D. Neurophysiology Fellow, PGY5 Rikki Zayas M.D. Clinical Neurophysiology/Epilepsy Attending Performing Organization Address City/State/Zipcode Phone Number GE RIS Carotid doppler bilateral (05/31/2017 2:46 PM CDT) Ejection Fraction [facility] ECHO HEARTLAB [facility] CPACS Impressions Performed At Right Impression [facility] ECHO HEART[facility] CPACS 1. There is <50% diameter reduction (approximately 23% by 2-D measurement) in the internal carotid artery with a increased velocity of 341/67 cm/sec due to tortuosity of vessel and and heterogeneous/shadowing plaque. 2. There is non-occluding plaque in the external carotid artery. 3. There is non-occluding plaque in the common carotid artery. 4. The vertebral artery flow is antegrade and normal. 5. The subclavian artery is within normal limits where visualized. Left Impression 1. There is <50% diameter reduction in the internal carotid artery with a peak velocity of 114/25 cm/sec and heterogeneous/ shadowing plaque. 2. There is >50% stenosis in the external carotid artery with a velocity of 241/24 cm/sec . 3. There is non-occluding plaque in the common carotid artery. 4. The vertebral artery flow is antegrade and normal. 5. The subclavian artery is within normal limits where visualized. *2D measurement was not obtained due to high bifurcation. Conclusions Summary Carotid duplex scanning and color flow imaging were performed bilaterally. The arteries were technically difficult to visualize due to high bifurcation and movement. On the right, There was <50% diameter reduction (approximately 23% by 2-D measurement) in the internal carotid artery with a increased velocity of 341/67 cm/sec due to tortuosity of vessel and and heterogeneous/shadowing plaque. On the left, there was <50% diameter reduction in the internal carotid artery with a peak velocity of 114/25 cm/sec and heterogeneous/ shadowing plaque. The vertebral artery flow was antegrade and normal bilaterally. *2D measurement of the left ICA was not obtained due to high bifurcation and movement. Signature Velocities are measured in cm/s ; Diameters are measured in cm Carotid Right Measurements + +----+----+-----+ +---- + + !Location !PSV !EDV !Angle!%Stenosis 2D!%Stenosis Doppler!Tortuosity ! + +----+----+-----+ +---- + + !Prox CCA !94.4!17.6!60 !! ! ! + +----+----+-----+ +---- + + !Dist CCA !103 !32.2!60 !! ! ! + +----+----+-----+ +---- + + !Prox ICA !341 !67.3!60 !! ! ! + +----+----+-----+ +---- + + !Dist ICA !57!15!60 !! ! ! + +----+----+-----+ +---- + + !Prox ECA !118 !26.7!60 !! ! ! + +----+----+-----+ +---- + + !Vertebral!68.4!21.2!60 !! ! ! + +----+----+-----+ +---- + + !Prox Subclavian!65.2!0 !60 !! ! ! + +----+----+-----+ +---- + + - Additional Measurements:ICAPSV/CCAPSV 3.31.ICAEDV/CCAEDV 3.82. Carotid Left Measurements + +----+----+-----+ +---- + + !Location !PSV !EDV !Angle!%Stenosis 2D!%Stenosis Doppler!Tortuosity ! + +----+----+-----+ +---- + + !Prox CCA !76.2!18.9!60 !! ! ! + +----+----+-----+ +---- + + !Dist CCA !107 !14.1!60 !! ! ! + +----+----+-----+ +---- + + !Prox ICA !114 !25.5!60 !! ! ! + +----+----+-----+ +---- + + !Dist ICA !81.1!19.8!48 !! ! ! + +----+----+-----+ +---- + + !Prox ECA !241 !24.3!60 !! ! ! + +----+----+-----+ +---- + + !Vertebral!34!13!60 !! ! ! + +----+----+-----+ +---- + + !Prox Subclavian!65!0 !60 !! ! ! + +----+----+-----+ +---- + + - Additional Measurements:ICAPSV/CCAPSV 1.07.ICAEDV/CCAEDV 1.35. Narrative Performed At LAB - Carotid Duplex Study [facility]ART[facility] Demographics Patient Name Juliana STAPLES of Study 05/31/2017 MALCOLM [id number] Age 82 Visit Number [id number] GenderMale Accession Number [id number] Date of 1935 [facility] Room Number 6A12 Physician SonographerVega OconnellJ. Danny Perez MD, RVT Physician RPVI Procedure Type of Study: Cerebral: Carotid, CAROTID DOPPLER, BILATERAL. Indications for Study:History of clots . Patient Status:Routine. Study Location:Portable. Technical Quality:Technically Difficult. Risk Factors History of Disease +---------+----+ + !Diagnosis!Date!Comments ! +---------+----+ + !Other!!A-FIB, DM, ETOH, HTN, Heart Bypass, Obesity! +---------+----+ + Procedure Note Interface, External Ris In - 05/31/2017 7:28 PM CDT PV LAB - Carotid Duplex Study Demographics Patient Name ELOY STAPLES Date of Study 05/31/2017 MALCOLM Age 82 Visit Number [id number] Gender Male Accession Number [id number] Date of 1935 Referring [facility] Room Number 6A12 Physician Case Folder Vega Oh Interpreting Robert Perez MD, RVT Physician RPVI Procedure Type of Study: Cerebral: Carotid, CAROTID DOPPLER, BILATERAL. Indications for Study:History of clots . Patient Status:Routine. Study Location:Portable. Technical Quality:Technically Difficult. Risk Factors History of Disease +---------+----+ + !Diagnosis!Date!Comments ! +---------+----+ + !Other ! !A-FIB, DM, ETOH, HTN, Heart Bypass, Obesity ! +---------+----+ + Impressions Right Impression 1. There is <50% diameter reduction (approximately 23% by 2-D measurement) in the internal carotid artery with a increased velocity of 341/67 cm/sec due to tortuosity of vessel and and heterogeneous/shadowing plaque. 2. There is non-occluding plaque in the external carotid artery. 3. There is non-occluding plaque in the common carotid artery. 4. The vertebral artery flow is antegrade and normal. 5. The subclavian artery is within normal limits where visualized. Left Impression 1. There is <50% diameter reduction in the internal carotid artery with a peak velocity of 114/25 cm/sec and heterogeneous/ shadowing plaque. 2. There is >50% stenosis in the external carotid artery with a velocity of 241/24 cm/sec . 3. There is non-occluding plaque in the common carotid artery. 4. The vertebral artery flow is antegrade and normal. 5. The subclavian artery is within normal limits where visualized. *2D measurement was not obtained due to high bifurcation. Conclusions Summary Carotid duplex scanning and color flow imaging were performed bilaterally. The arteries were technically difficult to visualize due to high bifurcation and movement. On the right, There was <50% diameter reduction (approximately 23% by 2-D measurement) in the internal carotid artery with a increased velocity of 341/67 cm/sec due to tortuosity of vessel and and heterogeneous/shadowing plaque. On the left, there was <50% diameter reduction in the internal carotid artery with a peak velocity of 114/25 cm/sec and heterogeneous/ shadowing plaque. The vertebral artery flow was antegrade and normal bilaterally. *2D measurement of the left ICA was not obtained due to high bifurcation and movement. Signature Velocities are measured in cm/s ; Diameters are measured in cm Carotid Right Measurements + +----+----+-----+ + + + !Location !PSV !EDV !Angle!%Stenosis 2D!%Stenosis Doppler!Tortuosity ! + +----+----+-----+ + + + !Prox CCA !94.4!17.6!60 ! ! ! ! + +----+----+-----+ + + + !Dist CCA !103 !32.2!60 ! ! ! ! + +----+----+-----+ + + + !Prox ICA !341 !67.3!60 ! ! ! ! + +----+----+-----+ + + + !Dist ICA !57 !15 !60 ! ! ! ! + +----+----+-----+ + + + !Prox ECA !118 !26.7!60 ! ! ! ! + +----+----+-----+ + + + !Vertebral !68.4!21.2!60 ! ! ! ! + +----+----+-----+ + + + !Prox Subclavian!65.2!0 !60 ! ! ! ! + +----+----+-----+ + + + - Additional Measurements:ICAPSV/CCAPSV 3.31.ICAEDV/CCAEDV 3.82. Carotid Left Measurements + +----+----+-----+ + + + !Location !PSV !EDV !Angle!%Stenosis 2D!%Stenosis Doppler!Tortuosity ! + +----+----+-----+ + + + !Prox CCA !76.2!18.9!60 ! ! ! ! + +----+----+-----+ + + + !Dist CCA !107 !14.1!60 ! ! ! ! + +----+----+-----+ + + + !Prox ICA !114 !25.5!60 ! ! ! ! + +----+----+-----+ + + + !Dist ICA !81.1!19.8!48 ! ! ! ! + +----+----+-----+ + + + !Prox ECA !241 !24.3!60 ! ! ! ! + +----+----+-----+ + + + !Vertebral !34 !13 !60 ! ! ! ! + +----+----+-----+ + + + !Prox Subclavian!65 !0 !60 ! ! ! ! + +----+----+-----+ + + + - Additional Measurements:ICAPSV/CCAPSV 1.07.ICAEDV/CCAEDV 1.35. Performing Organization Address City/State/[facility] Phone Number [facility] [employer] [facility] 2D Echo W/Doppler(CW/PW/Color) (05/31/2017 1:12 PM CDT) Ejection Fraction [facility] Narrative Performed At Transthoracic Echocardiography Report (TTE) [facility] [employer] [facility] Demographics Patient Name Juliana STAPLES of Study 05/31/2017 MALCOLM [id number] GenderMale Visit Number [id number] Lizethrubia [id number] Room Number 6A12 Number Date of Birth1935 Referring Physician Sebastian Blancas Age82 year(s) Case Folder Thom Zaragoza, KOJO Watts SHAYLA Fu MD Procedure Type of Study TTE procedure:2DECHO W DOPPLER(CW/PW/COLOR) (STAT) Indications:Known or suspected heart failure. Clinical History CORONARY ARTERY BYPASS, CHF, DM, ETOH ABUSE, HTN, A.FIB HGB 7.4 HCT 22.7 % Contrast Medium: Definity. Amount - 2 ml Height: 69 inches Weight: 82.1 kg (181 lbs) BSA: 1.98 m^2 BMI: 26.73 kg/m^2 HR: 101 bpm BP: 129/61 mmHg Summary 1. All of the LV segments are hyperkinetic . Estimated LVEF by qualitative assessment is increased (>70%) . 2. Bnmv-xs-qtmconjl tricuspid regurgitation. Estimated peak systolic PA pressure is 55-60 mmHg . 3. RV chamber size is mildly enlarged . Global RV systolic function is normal Previous Study No prior exam available for comparison. Signature Findings Technical Quality: Technically adequate exam. Rhythm/BPAtrial fibrillation with rapid ventricular re sponse. Left Ventricle The left ventricle is chamber size (by vol index) is normal (male - LVED vol - 34-74ml/m2). No evidence of LV hypertrophy. Al l of the LV segments are hyperkinetic . Gl obal LV systolic function hyperdynamic . Es timated LVEF by qualitative assessment is in creased (>70%) . In creased (cardiac index 3.5-4.0 L/min/m2) cardiac ou tput state at rest is noted. De gree of diastolic dysfunction (LAP assessment) is in conclusive due to arrhythmia . Left AtriumLA size is normal (16-34 ml/m2) . Right VentricleRV chamber size is mildly enlarged . Gl obal RV systolic function is normal . Right Atrium RA cavity size is mildly enlarged . Aortic Valve Mild AoV cusp calcification. A trace of aortic regurgitation. Mitral Valve Mild MV leaflet calcification. Mi ld mitral annular calcification. Tr herman mitral regurgitation. Tricuspid ValveTV structure is normal. Mi nf-xz-uljddana tricuspid regurgitation. Es timated peak systolic PA pressure is 55-60 mmHg . Pulmonic Valve Normal PV structure and function by limited views an d Doppler. AortaAortic root size (SInus of Valsalva diameter) is no rmal . PericardiumNo pericardial effusion is visualized. IVC/SVC/PA/PV/PleuralThe inferior vena cava is adequately visualized. Th e inferior vena cava size is mildly increased . Th e estimated RA pressure by IVC dynamics >20mmHg . He patic Vein pulsed Doppler pattern shows prominent sy stolic reversal wave . Chambers/Structures Left Atrium LA Volume: 50.07 ml LA Area: 18.77 cm^2 LA Vol. Index: 25 ml/m^2 Left Ventricle LVIDd: 5.83 cm LV Septum Diastolic: 1.1 cm LV PW Diastolic: 1.18 cm LVOT Diameter: 2.26 cm Aorta Ao Root S of Racquel.: 3.95 cm Doppler/Quantitative Measurements Aortic Valve Peak Velocity: 1.13 m/sMean Velocity: 0.79 m/s Peak Gradient: 5.08 mmHg Mean Gradient: 2.76 mmHg AV Area (continuity): 3.55 cm^2 AV VTI: 20.12 cm AV DVI: 0.89 LVOT Peak Velocity: 0.98 m/s Peak Gradient: 3.8 mmHg Mean Velocity: 0.63 m/s Mean Gradient: 1.78 mmHg LVOT Diameter: 2.26 cmLVOT VTI: 17.82 cm LVOT Area: 4.01 cm^2LVOT SV:71.45 ml LVOT CO: 7.22 l/min LVOT CI: 3.65 l/min/m^2 Tricuspid Valve TR Velocity: 2.99 m/s TR Gradient: 35.68 mmHg Procedure Note Interface, External Ris In - 05/31/2017 4:52 PM CDT Transthoracic Echocardiography Report (TTE) Demographics Patient Name ELOY STAPLES Date of Study 05/31/2017 MALCOLM Gender Male Visit Number [id number] Race Unknown Room Number 6A12 Number Date of 1935 Referring Physician Sebastian Blancas Age 82 year(s) Case Folder Thom Zaragoza, [facility] [employer] Hammer Operator Carolyn Watts [facility] Interpreting Doris Fu MD Procedure Type of Study TTE procedure:2DECHO W DOPPLER(CW/PW/COLOR) (STAT) Indications:Known or suspected heart failure. Clinical History CORONARY ARTERY BYPASS, CHF, DM, ETOH ABUSE, HTN, A.FIB HGB 7.4 HCT 22.7 % Contrast Medium: Definity. Amount - 2 ml Height: 69 inches Weight: 82.1 kg (181 lbs) BSA: 1.98 m^2 BMI: 26.73 kg/m^2 HR: 101 bpm BP: 129/61 mmHg Summary 1. All of the LV segments are hyperkinetic . Estimated LVEF by qualitative assessment is increased (>70%) . 2. Chyi-ou-ccdcqhrs tricuspid regurgitation. Estimated peak systolic PA pressure is 55-60 mmHg . 3. RV chamber size is mildly enlarged . Global RV systolic function is normal Previous Study No prior exam available for comparison. Signature Findings Technical Quality: Technically adequate exam. Rhythm/BP Atrial fibrillation with rapid ventricular response. Left Ventricle The left ventricle is chamber size (by vol index) is normal (male - LVED vol - 34-74ml/m2). No evidence of LV hypertrophy. All of the LV segments are hyperkinetic . Global LV systolic function hyperdynamic . Estimated LVEF by qualitative assessment is increased (>70%) . Increased (cardiac index 3.5-4.0 L/min/m2) cardiac output state at rest is noted. Degree of diastolic dysfunction (LAP assessment) is inconclusive due to arrhythmia . Left Atrium LA size is normal (16-34 ml/m2) . Right Ventricle RV chamber size is mildly enlarged . Global RV systolic function is normal . Right Atrium RA cavity size is mildly enlarged . Aortic Valve Mild AoV cusp calcification. A trace of aortic regurgitation. Mitral Valve Mild MV leaflet calcification. Mild mitral annular calcification. Trace mitral regurgitation. Tricuspid Valve TV structure is normal. Medw-tv-tdiyloqn tricuspid regurgitation. Estimated peak systolic PA pressure is 55-60 mmHg . Pulmonic Valve Normal PV structure and function by limited views and Doppler. Aorta Aortic root size (SInus of Valsalva diameter) is normal . Pericardium No pericardial effusion is visualized. IVC/SVC/PA/PV/Pleural The inferior vena cava is adequately visualized. The inferior vena cava size is mildly increased . The estimated RA pressure by IVC dynamics >20mmHg . Hepatic Vein pulsed Doppler pattern shows prominent systolic reversal wave . Chambers/Structures Left Atrium LA Volume: 50.07 ml LA Area: 18.77 cm^2 LA Vol. Index: 25 ml/m^2 Left Ventricle LVIDd: 5.83 cm LV Septum Diastolic: 1.1 cm LV PW Diastolic: 1.18 cm LVOT Diameter: 2.26 cm Aorta Ao Root S of Racquel.: 3.95 cm Doppler/Quantitative Measurements Aortic Valve Peak Velocity: 1.13 m/s Mean Velocity: 0.79 m/s Peak Gradient: 5.08 mmHg Mean Gradient: 2.76 mmHg AV Area (continuity): 3.55 cm^2 AV VTI: 20.12 cm AV DVI: 0.89 LVOT Peak Velocity: 0.98 m/s Peak Gradient: 3.8 mmHg Mean Velocity: 0.63 m/s Mean Gradient: 1.78 mmHg LVOT Diameter: 2.26 cm LVOT VTI: 17.82 cm LVOT Area: 4.01 cm^2 LVOT SV:71.45 ml LVOT CO: 7.22 l/min LVOT CI: 3.65 l/min/m^2 Tricuspid Valve TR Velocity: 2.99 m/s TR Gradient: 35.68 mmHg Performing Organization Address City/State/Zipcode Phone Number [facility]ART[facility] REPORT OF PROCEDURE - ENDOSCOPY URL (05/31/2017 11:17 AM CDT) Narrative Performed At Ethanol (05/31/2017 6:35 AM CDT) Ethanol Lvl <10 <=10 mg/dL [facility] Specimen Blood Performing Organization Address [facility] Phone Number [address] [address] [phone] [place] Hepatic function panel (05/30/2017 10:48 PM CDT) Protein, Total 5.9 (L) 6.0 - 8.3 gm/dL [facility] Albumin 3.3 (L) 3.5 - 5.0 g/dL [facility] Total Bilirubin 0.7 0.2 - 1.2 mg/dL [facility] Bilirubin, Direct 0.3 0.1 - 0.5 mg/dL [facility] Alkaline Phosphatase 45 40 - 150 U/L [facility] AST 50 (H) 5 - 34 U/L [facility] ALT 20 6 - 55 U/L [facility] Specimen Blood Performing Organization Address City/[facility]/Zipcode Phone Number [address] [address] [place] Urinalysis w/ Microscopic (05/30/2017 10:10 PM CDT) Color, UA Light Yellow [facility] Clarity, UA Clear [facility] Specific [place], UA 1.011 1.001 - 1.035 [facility] pH, UA 5.0 5.0 - 8.0 [facility] Protein, UA Negative Negative [facility] Glucose, UA Negative Negative [facility] Ketones, UA Negative Negative [facility] Bilirubin, UA Negative Negative [facility] Blood, UA Moderate (A) Negative [facility] Nitrite, UA Negative Negative [facility] Leukocytes, UA Negative Negative [facility] Urobilinogen, UA 0.2 0.2 - 1.0 mg/dL [facility] RBC, UA 12 /HPF [facility] WBC, UA 8 /HPF [facility] Bacteria, UA Occasional [facility] Mucus Rare [facility] Specimen Source Urine, [place] [facility] Specimen Urine - Urine, [place] Performing Organization Address City/State/Zipcode Phone Number [facility] [address] [place] [phone] [place] Fibrinogen (05/30/2017 10:10 PM CDT) Fibrinogen 390 225 - 434 mg/dl [facility] Specimen Blood Performing Organization Address City/State/Zipcode Phone Number [facility] [address] [place] [address] [place] Urine culture (05/30/2017 10:10 PM CDT) Result No growth [facility] Specimen Urine - Urine, [place] Performing Organization Address City/[facility]/Zipcode Phone Number [facility] [address] [place], [place] [phone] CENTER after 05/03/2017 Insurance Payer Benefit Plan / Subscriber ID Type Phone Address Group MEDICARE MEDICARE A B xxxxxxxxxx Medicare BLUE CROSS/BLUE BCBS PPO POS EPO xxxxxxxxxxxx PPO [phone] [address] [place] [address] Advance Directives For more information, please contact:[place] [id number] [place] [phone] Code Status Date Activated Date Inactivated Comments Full Code 05/30/2017 10:08 PM 06/19/2017 7:55 PM This code status was determined by: Patient
--- OUTSIDE RECORDS SUMMARY | 2018-05-04 09:40 | XMS REPORT ---
:1935 [facility] Address [address] [place] [address] Care Team Providers Name Role Phone MURPHY HART Unavailable Unavailable Problems This patient has no known problems. Allergies, Adverse Reactions, Alerts This patient has no known allergies or adverse reactions. Medications This patient has no known medications. Results Test Description Test Time Test Comments Text Results Atomic Results Result Comments U/S, ABDOMINAL, 2017-06-29 Abdomen limited area? Addendum BeginsREPORT LIMITED 05:54:00 Add comment if STATUS:A PATIENT ID: clarification is [id number] Indication: Right needed.->LiverReason for upper quadrant pain. Signed: exam:->r/o cirrhosis Marci Levine MDReport Verified Date/Time: 06/29/2017 05:54:07 Reading Location: [facility] C013Y CT Body Reading RoomAddendum EndsFINAL REPORT U/S, ABDOMINAL, LIMITED INDICATION: "r/o cirrhosis" COMPARISON: None TECHNIQUE: Real-time transabdominal stewart scale and color Doppler ultrasound of the abdominal right upper quadrant. FINDINGS:Visualized portion of the pancreas is normal.Normal liver echotexture and echogenicity without a discrete mass or intrahepatic bile duct dilation.Normal caliber CBD at 5 mm.Surgically absent gallbladder. Visualized portion of the right kidney is unremarkable without obvious hydronephrosis.Visualized portions of the IVC and aorta are unremarkable. IMPRESSION: No sonographic evidence of cirrhosis. Signed: Macri Levine MDReport Verified Date/Time: 06/04/2017 06:44:53 Reading Location: [facility] B1 C013X Ortho Consult Reading Room -GLUCOSE METER 2017-06-19 16:56:00 Test Item Value Reference Range Comments POC-GLUCOSE METER (BEAKER) (test 202 mg/dL 70-110 TESTED AT [address] rpfo=2240) [facility] [address] POCT-GLUCOSE [id number] 12:23:00 Test Item Value Reference Range Comments POC-GLUCOSE METER (BEAKER) 223 mg/dL 70-110 TESTED AT [address] (test mipq=7810) [facility] [address] POCT-GLUCOSE [id number] 08:07:00 Test Item Value Reference Range Comments POC-GLUCOSE METER (BEAKER) 122 mg/dL 70-110 TESTED AT [address] (test stok=9973) [facility] [address] [id number] 07:19:00 Test Item Value Reference Range Comments MAGNESIUM (BEAKER) (test nybk=889) 1.4 mg/dL 1.6-2.6 [id number] 07:19:00 Test Item Value Reference Range Comments PHOSPHORUS (BEAKER) (test oyxg=619) 2.7 mg/dL 2.3-4.7 COMPREHENSIVE METABOLIC [id number] 07:18:00 Test Item Value Reference Range Comments TOTAL PROTEIN (BEAKER) 6.7 gm/dL 6.0-8.3 (test nvba=269) ALBUMIN (BEAKER) (test 3.3 g/dL 3.5-5.0 rebh=8735) ALKALINE PHOSPHATASE 64 U/L 40-150 (BEAKER) (test nzfe=122) BILIRUBIN TOTAL (BEAKER) 0.5 mg/dL 0.2-1.2 (test taaa=267) SODIUM (BEAKER) (test 141 meq/L 136-145 xois=678) POTASSIUM (BEAKER) (test 3.3 meq/L 3.5-5.1 bszi=081) CHLORIDE (BEAKER) (test 106 meq/L 98-107 siig=298) CO2 (BEAKER) (test 24 meq/L 22-29 wanb=662) BLOOD UREA NITROGEN 16 mg/dL 7-21 (BEAKER) (test zwcr=419) CREATININE (BEAKER) (test 1.18 mg/dL 0.57-1.25 sphi=818) GLUCOSE RANDOM (BEAKER) 118 mg/dL 70-105 (test xnqw=237) CALCIUM (BEAKER) (test 8.9 mg/dL 8.4-10.2 tpkw=392) AST (SGOT) (BEAKER) (test 15 U/L 5-34 xnby=153) ALT (SGPT) (BEAKER) (test 12 U/L 6-55 xjhf=010) EGFR (BEAKER) (test 59 mL/min/1.73 sq m ESTIMATED GFR IS NOT gebl=3913) ACCURATE CREATININE CLEARANCE IN PREDICTING GLOMERULAR FILTRATION RATE. ESTIMATED GFR IS NOT APPLICABLE FOR DIALYSIS PATIENTS. CBC W/PLT COUNT & AUTO [id number] 00:06:00 Test Item Value Reference Range Comments WHITE BLOOD CELL COUNT (BEAKER) (test qzwh=565) 6.8 K/ L 3.5-10.5 RED BLOOD CELL COUNT (BEAKER) (test qnht=581) 2.68 M/ L 4.63-6.08 HEMOGLOBIN (BEAKER) (test epsu=144) 7.8 GM/DL 13.7-17.5 HEMATOCRIT (BEAKER) (test hvpf=634) 24.9 % 40.1-51.0 MEAN CORPUSCULAR VOLUME (BEAKER) (test xnzu=582) 92.9 fL 79.0-92.2 MEAN CORPUSCULAR HEMOGLOBIN (BEAKER) (test 29.1 pg 25.7-32.2 ktmd=736) MEAN CORPUSCULAR HEMOGLOBIN CONC (BEAKER) (test 31.3 GM/DL 32.3-36.5 pgeb=117) RED CELL DISTRIBUTION WIDTH (BEAKER) (test 16.9 % 11.6-14.4 zdxy=864) PLATELET COUNT (BEAKER) (test alru=080) 306 K/CU MM 150-450 MEAN PLATELET VOLUME (BEAKER) (test jyfn=874) 9.3 fL 9.4-12.4 NUCLEATED RED BLOOD CELLS (BEAKER) (test 0 /100 WBC 0-0 wimu=611) NEUTROPHILS RELATIVE PERCENT (BEAKER) (test 47 % ienr=084) LYMPHOCYTES RELATIVE PERCENT (BEAKER) (test 34 % xqli=354) MONOCYTES RELATIVE PERCENT (BEAKER) (test 11 % zoao=763) EOSINOPHILS RELATIVE PERCENT (BEAKER) (test 6 % tyfu=001) BASOPHILS RELATIVE PERCENT (BEAKER) (test 1 % wvok=072) NEUTROPHILS ABSOLUTE COUNT (BEAKER) (test 3.17 K/ L 1.78-5.38 lwip=895) LYMPHOCYTES ABSOLUTE COUNT (BEAKER) (test 2.28 K/ L 1.32-3.57 pbce=512) MONOCYTES ABSOLUTE COUNT (BEAKER) (test 0.77 K/ L 0.30-0.82 oiet=135) EOSINOPHILS ABSOLUTE COUNT (BEAKER) (test 0.43 K/ L 0.04-0.54 rezd=428) BASOPHILS ABSOLUTE COUNT (BEAKER) (test 0.06 K/ L 0.01-0.08 gjoe=054) IMMATURE GRANULOCYTES-RELATIVE PERCENT (BEAKER) 1 % 0-1 (test nbyl=5649) POCT-GLUCOSE [id number] 20:29:00 Test Item Value Reference Range Comments POC-GLUCOSE METER (BEAKER) 126 mg/dL 70-110 TESTED AT [address] (test znoi=0049) [place] [id number] POCT-GLUCOSE [id number] 17:46:00 Test Item Value Reference Range Comments POC-GLUCOSE METER (BEAKER) 98 mg/dL 70-110 TESTED AT [address] (test pfjr=2305) [place] [id number] POCT-GLUCOSE [id number] 13:26:00 Test Item Value Reference Range Comments POC-GLUCOSE METER (BEAKER) 118 mg/dL 70-110 TESTED AT [address] (test tkkl=0317) [facility] [address] POCT-GLUCOSE [id number] 08:28:00 Test Item Value Reference Range Comments POC-GLUCOSE METER (BEAKER) 137 mg/dL 70-110 TESTED AT [address] (test cpbh=1833) [place] [id number] 05:31:00 Test Item Value Reference Range Comments PHOSPHORUS (BEAKER) (test wtkd=563) 3.1 mg/dL 2.3-4.7 [id number] 05:31:00 Test Item Value Reference Range Comments MAGNESIUM (BEAKER) (test ykzt=491) 1.3 mg/dL 1.6-2.6 BASIC METABOLIC [id number] 05:31:00 Test Item Value Reference Range Comments SODIUM (BEAKER) (test 137 meq/L 136-145 mhyj=790) POTASSIUM (BEAKER) (test 3.0 meq/L 3.5-5.1 hytl=195) CHLORIDE (BEAKER) (test 103 meq/L 98-107 llbc=913) CO2 (BEAKER) (test 23 meq/L 22-29 tstw=576) BLOOD UREA NITROGEN 15 mg/dL 7-21 (BEAKER) (test comz=570) CREATININE (BEAKER) (test 1.22 mg/dL 0.57-1.25 uqpj=006) GLUCOSE RANDOM (BEAKER) 116 mg/dL 70-105 (test hybv=025) CALCIUM (BEAKER) (test 8.4 mg/dL 8.4-10.2 wgoa=284) EGFR (BEAKER) (test 57 mL/min/1.73 sq m ESTIMATED GFR IS NOT bsrk=7007) ACCURATE CREATININE CLEARANCE IN PREDICTING GLOMERULAR FILTRATION RATE. ESTIMATED GFR IS NOT APPLICABLE FOR DIALYSIS PATIENTS. CBC W/PLT COUNT & AUTO [id number] 05:13:00 Test Item Value Reference Range Comments WHITE BLOOD CELL COUNT (BEAKER) (test tokb=229) 7.2 K/ L 3.5-10.5 RED BLOOD CELL COUNT (BEAKER) (test bvrq=182) 2.62 M/ L 4.63-6.08 HEMOGLOBIN (BEAKER) (test etaj=652) 7.5 GM/DL 13.7-17.5 HEMATOCRIT (BEAKER) (test jpkm=846) 24.2 % 40.1-51.0 MEAN CORPUSCULAR VOLUME (BEAKER) (test hzxa=130) 92.4 fL 79.0-92.2 MEAN CORPUSCULAR HEMOGLOBIN (BEAKER) (test 28.6 pg 25.7-32.2 ltso=875) MEAN CORPUSCULAR HEMOGLOBIN CONC (BEAKER) (test 31.0 GM/DL 32.3-36.5 kfoc=788) RED CELL DISTRIBUTION WIDTH (BEAKER) (test 17.0 % 11.6-14.4 vypv=884) PLATELET COUNT (BEAKER) (test kyox=495) 291 K/CU MM 150-450 MEAN PLATELET VOLUME (BEAKER) (test agmy=544) 9.4 fL 9.4-12.4 NUCLEATED RED BLOOD CELLS (BEAKER) (test 0 /100 WBC 0-0 pkzl=285) NEUTROPHILS RELATIVE PERCENT (BEAKER) (test 48 % ezvv=245) LYMPHOCYTES RELATIVE PERCENT (BEAKER) (test 30 % epvb=534) MONOCYTES RELATIVE PERCENT (BEAKER) (test 13 % gxdl=982) EOSINOPHILS RELATIVE PERCENT (BEAKER) (test 7 % cmwv=200) BASOPHILS RELATIVE PERCENT (BEAKER) (test 1 % kxlh=164) NEUTROPHILS ABSOLUTE COUNT (BEAKER) (test 3.49 K/ L 1.78-5.38 efpg=292) LYMPHOCYTES ABSOLUTE COUNT (BEAKER) (test 2.19 K/ L 1.32-3.57 rrjs=669) MONOCYTES ABSOLUTE COUNT (BEAKER) (test 0.91 K/ L 0.30-0.82 wqxg=853) EOSINOPHILS ABSOLUTE COUNT (BEAKER) (test 0.52 K/ L 0.04-0.54 mvmu=670) BASOPHILS ABSOLUTE COUNT (BEAKER) (test 0.07 K/ L 0.01-0.08 kinh=788) IMMATURE GRANULOCYTES-RELATIVE PERCENT (BEAKER) 1 % 0-1 (test qcps=8477) POCT-GLUCOSE [id number] 21:05:00 Test Item Value Reference Range Comments POC-GLUCOSE METER (BEAKER) 199 mg/dL 70-110 TESTED AT [address] (test hypl=0696) [place] [address] POCT-GLUCOSE [id number] 18:55:00 Test Item Value Reference Range Comments POC-GLUCOSE METER (BEAKER) 128 mg/dL 70-110 TESTED AT [address] (test egtx=5455) [place] [address] POCT-GLUCOSE [id number] 11:34:00 Test Item Value Reference Range Comments POC-GLUCOSE METER (BEAKER) 144 mg/dL 70-110 TESTED AT [address] (test sqdz=3526) [place] [address] POCT-GLUCOSE [id number] 07:58:00 Test Item Value Reference Range Comments POC-GLUCOSE METER (BEAKER) 93 mg/dL 70-110 TESTED AT [address] (test wtjr=9325) [place] [address] [id number] 05:23:00 Test Item Value Reference Range Comments PHOSPHORUS (BEAKER) (test qgao=707) 2.9 mg/dL 2.3-4.7 [id number] 05:23:00 Test Item Value Reference Range Comments MAGNESIUM (BEAKER) (test ropc=466) 1.6 mg/dL 1.6-2.6 CBC W/PLT COUNT & AUTO [id number] 05:03:00 Test Item Value Reference Range Comments WHITE BLOOD CELL COUNT (BEAKER) (test asif=665) 7.0 K/ L 3.5-10.5 RED BLOOD CELL COUNT (BEAKER) (test wwek=211) 2.87 M/ L 4.63-6.08 HEMOGLOBIN (BEAKER) (test gimi=415) 8.4 GM/DL 13.7-17.5 HEMATOCRIT (BEAKER) (test yuyn=893) 26.3 % 40.1-51.0 MEAN CORPUSCULAR VOLUME (BEAKER) (test ftzn=350) 91.6 fL 79.0-92.2 MEAN CORPUSCULAR HEMOGLOBIN (BEAKER) (test 29.3 pg 25.7-32.2 vmkz=721) MEAN CORPUSCULAR HEMOGLOBIN CONC (BEAKER) (test 31.9 GM/DL 32.3-36.5 wkpy=534) RED CELL DISTRIBUTION WIDTH (BEAKER) (test 16.7 % 11.6-14.4 dizt=679) PLATELET COUNT (BEAKER) (test qciz=885) 323 K/CU MM 150-450 MEAN PLATELET VOLUME (BEAKER) (test rqgv=751) 9.6 fL 9.4-12.4 NUCLEATED RED BLOOD CELLS (BEAKER) (test 0 /100 WBC 0-0 krmp=158) NEUTROPHILS RELATIVE PERCENT (BEAKER) (test 48 % rrlu=375) LYMPHOCYTES RELATIVE PERCENT (BEAKER) (test 32 % ltgw=031) MONOCYTES RELATIVE PERCENT (BEAKER) (test 12 % zdgf=098) EOSINOPHILS RELATIVE PERCENT (BEAKER) (test 7 % zqws=733) BASOPHILS RELATIVE PERCENT (BEAKER) (test 1 % exdp=572) NEUTROPHILS ABSOLUTE COUNT (BEAKER) (test 3.38 K/ L 1.78-5.38 yebd=665) LYMPHOCYTES ABSOLUTE COUNT (BEAKER) (test 2.23 K/ L 1.32-3.57 oazy=596) MONOCYTES ABSOLUTE COUNT (BEAKER) (test 0.86 K/ L 0.30-0.82 ejbx=781) EOSINOPHILS ABSOLUTE COUNT (BEAKER) (test 0.48 K/ L 0.04-0.54 uphx=199) BASOPHILS ABSOLUTE COUNT (BEAKER) (test 0.06 K/ L 0.01-0.08 tlcm=830) IMMATURE GRANULOCYTES-RELATIVE PERCENT (BEAKER) 0 % 0-1 (test gjup=2919) POCT-GLUCOSE [id number] 22:10:00 Test Item Value Reference Range Comments POC-GLUCOSE METER (BEAKER) 100 mg/dL 70-110 TESTED AT [address] (test rtbt=3467) [facility] [address] POCT-GLUCOSE [id number] 20:51:00 Test Item Value Reference Range Comments POC-GLUCOSE METER (BEAKER) 195 mg/dL 70-110 TESTED AT [address] (test vqhu=5991) [facility] [address] POCT-GLUCOSE [id number] 12:49:00 Test Item Value Reference Range Comments POC-GLUCOSE METER (BEAKER) 183 mg/dL 70-110 TESTED AT [address] (test fznn=5738) [facility] [address] POCT-GLUCOSE [id number] 08:20:00 Test Item Value Reference Range Comments POC-GLUCOSE METER (BEAKER) 95 mg/dL 70-110 TESTED AT [address] (test ferb=4454) [facility] [address] [id number] 07:00:00 Test Item Value Reference Range Comments MAGNESIUM (BEAKER) (test wgbh=594) 1.0 mg/dL 1.6-2.6 [id number] 06:56:00 Test Item Value Reference Range Comments PHOSPHORUS (BEAKER) (test ckll=450) 2.8 mg/dL 2.3-4.7 BASIC METABOLIC [id number] 06:56:00 Test Item Value Reference Range Comments SODIUM (BEAKER) (test 137 meq/L 136-145 jsjk=986) POTASSIUM (BEAKER) (test 3.6 meq/L 3.5-5.1 xmwh=814) CHLORIDE (BEAKER) (test 104 meq/L 98-107 jybi=053) CO2 (BEAKER) (test 24 meq/L 22-29 aihg=128) BLOOD UREA NITROGEN 12 mg/dL 7-21 (BEAKER) (test xgit=683) CREATININE (BEAKER) (test 0.90 mg/dL 0.57-1.25 oosr=724) GLUCOSE RANDOM (BEAKER) 84 mg/dL 70-105 (test afqz=662) CALCIUM (BEAKER) (test 8.8 mg/dL 8.4-10.2 byii=789) EGFR (BEAKER) (test 81 mL/min/1.73 sq m ESTIMATED GFR IS NOT xtcr=7536) ACCURATE CREATININE CLEARANCE IN PREDICTING GLOMERULAR FILTRATION RATE. ESTIMATED GFR IS NOT APPLICABLE FOR DIALYSIS PATIENTS. CBC W/PLT COUNT & AUTO [id number] 06:16:00 Test Item Value Reference Range Comments WHITE BLOOD CELL COUNT (BEAKER) (test lcgw=139) 6.7 K/ L 3.5-10.5 RED BLOOD CELL COUNT (BEAKER) (test ztuy=743) 2.80 M/ L 4.63-6.08 HEMOGLOBIN (BEAKER) (test jmjk=869) 8.1 GM/DL 13.7-17.5 HEMATOCRIT (BEAKER) (test ztkb=378) 26.2 % 40.1-51.0 MEAN CORPUSCULAR VOLUME (BEAKER) (test vydz=693) 93.6 fL 79.0-92.2 MEAN CORPUSCULAR HEMOGLOBIN (BEAKER) (test 28.9 pg 25.7-32.2 clak=940) MEAN CORPUSCULAR HEMOGLOBIN CONC (BEAKER) (test 30.9 GM/DL 32.3-36.5 huat=113) RED CELL DISTRIBUTION WIDTH (BEAKER) (test 16.6 % 11.6-14.4 nwar=249) PLATELET COUNT (BEAKER) (test vame=045) 331 K/CU MM 150-450 MEAN PLATELET VOLUME (BEAKER) (test gkvx=533) 9.7 fL 9.4-12.4 NUCLEATED RED BLOOD CELLS (BEAKER) (test 0 /100 WBC 0-0 jzcq=198) NEUTROPHILS RELATIVE PERCENT (BEAKER) (test 49 % hbfh=377) LYMPHOCYTES RELATIVE PERCENT (BEAKER) (test 32 % phpv=883) MONOCYTES RELATIVE PERCENT (BEAKER) (test 11 % ufoj=275) EOSINOPHILS RELATIVE PERCENT (BEAKER) (test 6 % brgi=266) BASOPHILS RELATIVE PERCENT (BEAKER) (test 1 % hjae=424) NEUTROPHILS ABSOLUTE COUNT (BEAKER) (test 3.31 K/ L 1.78-5.38 guek=217) LYMPHOCYTES ABSOLUTE COUNT (BEAKER) (test 2.14 K/ L 1.32-3.57 gshu=258) MONOCYTES ABSOLUTE COUNT (BEAKER) (test 0.75 K/ L 0.30-0.82 bfek=277) EOSINOPHILS ABSOLUTE COUNT (BEAKER) (test 0.42 K/ L 0.04-0.54 pixx=928) BASOPHILS ABSOLUTE COUNT (BEAKER) (test 0.07 K/ L 0.01-0.08 fxnl=475) IMMATURE GRANULOCYTES-RELATIVE PERCENT (BEAKER) 0 % 0-1 (test pwmb=6176) POCT-GLUCOSE [id number] 21:45:00 Test Item Value Reference Range Comments POC-GLUCOSE METER (BEAKER) 174 mg/dL 70-110 TESTED AT [address] (test xxhj=3353) [facility] [address] POCT-GLUCOSE [id number] 17:21:00 Test Item Value Reference Range Comments POC-GLUCOSE METER (BEAKER) 212 mg/dL 70-110 TESTED AT [address] (test rjiz=4639) [facility] [address] POCT-GLUCOSE [id number] 08:21:00 Test Item Value Reference Range Comments POC-GLUCOSE METER (BEAKER) 107 mg/dL 70-110 TESTED AT [address] (test qxxx=1063) [facility] [address] [id number] 03:39:00 Test Item Value Reference Range Comments PHOSPHORUS (BEAKER) (test myyr=840) 2.8 mg/dL 2.3-4.7 [id number] 03:39:00 Test Item Value Reference Range Comments MAGNESIUM (BEAKER) (test etzr=509) 1.4 mg/dL 1.6-2.6 COMPREHENSIVE METABOLIC [id number] 03:39:00 Test Item Value Reference Range Comments TOTAL PROTEIN (BEAKER) 6.5 gm/dL 6.0-8.3 (test pvgy=949) ALBUMIN (BEAKER) (test 2.9 g/dL 3.5-5.0 noin=1388) ALKALINE PHOSPHATASE 60 U/L 40-150 (BEAKER) (test ulzk=387) BILIRUBIN TOTAL (BEAKER) 0.4 mg/dL 0.2-1.2 (test yneu=217) SODIUM (BEAKER) (test 140 meq/L 136-145 krvz=589) POTASSIUM (BEAKER) (test 3.7 meq/L 3.5-5.1 spie=164) CHLORIDE (BEAKER) (test 104 meq/L 98-107 erhr=448) CO2 (BEAKER) (test 25 meq/L 22-29 zptt=899) BLOOD UREA NITROGEN 12 mg/dL 7-21 (BEAKER) (test vbgo=979) CREATININE (BEAKER) (test 0.96 mg/dL 0.57-1.25 aqhd=889) GLUCOSE RANDOM (BEAKER) 101 mg/dL 70-105 (test vdaw=455) CALCIUM (BEAKER) (test 8.9 mg/dL 8.4-10.2 tnwa=715) AST (SGOT) (BEAKER) (test 24 U/L 5-34 gghu=935) ALT (SGPT) (BEAKER) (test 25 U/L 6-55 eded=565) EGFR (BEAKER) (test 75 mL/min/1.73 sq m ESTIMATED GFR IS NOT sngn=6091) ACCURATE CREATININE CLEARANCE IN PREDICTING GLOMERULAR FILTRATION RATE. ESTIMATED GFR IS NOT APPLICABLE FOR DIALYSIS PATIENTS. PROTHROMBIN [id number] 03:27:00 Test Item Value Reference Range Comments PROTIME (BEAKER) (test crov=246) 15.7 seconds 11.7-14.7 INR (BEAKER) (test dtbv=379) 1.3 <=5.9 RECOMMENDED COUMADIN/WARFARIN INR THERAPY RANGESSTANDARD DOSE: 2.0 - 3.0 Includes: PROPHYLAXIS forvenous thrombosis, systemic embolization; TREATMENT for venous thrombosis and/or pulmonary embolus.HIGH RISK: Target INR is 2.5-3.5 for patients with mechanical heart valves.CBC W/PLT COUNT & AUTO [id number] 03:19:00 Test Item Value Reference Range Comments WHITE BLOOD CELL COUNT (BEAKER) (test vvoj=811) 6.6 K/ L 3.5-10.5 RED BLOOD CELL COUNT (BEAKER) (test qzhw=776) 2.54 M/ L 4.63-6.08 HEMOGLOBIN (BEAKER) (test smce=747) 7.5 GM/DL 13.7-17.5 HEMATOCRIT (BEAKER) (test rama=857) 23.9 % 40.1-51.0 MEAN CORPUSCULAR VOLUME (BEAKER) (test mzbj=887) 94.1 fL 79.0-92.2 MEAN CORPUSCULAR HEMOGLOBIN (BEAKER) (test 29.5 pg 25.7-32.2 ehtt=084) MEAN CORPUSCULAR HEMOGLOBIN CONC (BEAKER) (test 31.4 GM/DL 32.3-36.5 qrqv=071) RED CELL DISTRIBUTION WIDTH (BEAKER) (test 16.8 % 11.6-14.4 gmzx=083) PLATELET COUNT (BEAKER) (test wodv=072) 306 K/CU MM 150-450 MEAN PLATELET VOLUME (BEAKER) (test umjz=183) 9.6 fL 9.4-12.4 NUCLEATED RED BLOOD CELLS (BEAKER) (test 0 /100 WBC 0-0 xdle=982) NEUTROPHILS RELATIVE PERCENT (BEAKER) (test 44 % okei=620) LYMPHOCYTES RELATIVE PERCENT (BEAKER) (test 36 % mmya=142) MONOCYTES RELATIVE PERCENT (BEAKER) (test 11 % zamc=536) EOSINOPHILS RELATIVE PERCENT (BEAKER) (test 8 % ublc=999) BASOPHILS RELATIVE PERCENT (BEAKER) (test 1 % scgn=117) NEUTROPHILS ABSOLUTE COUNT (BEAKER) (test 2.91 K/ L 1.78-5.38 mbjb=806) LYMPHOCYTES ABSOLUTE COUNT (BEAKER) (test 2.37 K/ L 1.32-3.57 bcla=102) MONOCYTES ABSOLUTE COUNT (BEAKER) (test 0.70 K/ L 0.30-0.82 xrcq=812) EOSINOPHILS ABSOLUTE COUNT (BEAKER) (test 0.50 K/ L 0.04-0.54 joew=354) BASOPHILS ABSOLUTE COUNT (BEAKER) (test 0.06 K/ L 0.01-0.08 huzv=829) IMMATURE GRANULOCYTES-RELATIVE PERCENT (BEAKER) 0 % 0-1 (test ibdl=2578) POCT-GLUCOSE [id number] 21:20:00 Test Item Value Reference Range Comments POC-GLUCOSE METER (BEAKER) 101 mg/dL 70-110 TESTED AT [facility] [address] [facility] (test vkuz=1000) [facility] [address] BLOOD [id number] 18:00:00 Test Item Value Reference Range Comments CULTURE (BEAKER) (test wlqa=8425) No growth in 5 days POCT-GLUCOSE [id number] 17:25:00 Test Item Value Reference Range Comments POC-GLUCOSE METER (BEAKER) 273 mg/dL 70-110 TESTED AT [address] (test acfb=1071) [place] [id number] POCT-GLUCOSE [id number] 13:32:00 Test Item Value Reference Range Comments POC-GLUCOSE METER (BEAKER) 247 mg/dL 70-110 TESTED AT [address] (test kwwh=6897) [place] [id number] CBC W/PLT COUNT & AUTO [id number] 12:21:00 Test Item Value Reference Range Comments WHITE BLOOD CELL COUNT (BEAKER) (test jvye=013) 6.0 K/ L 3.5-10.5 RED BLOOD CELL COUNT (BEAKER) (test tnkk=964) 2.60 M/ L 4.63-6.08 HEMOGLOBIN (BEAKER) (test zyrc=872) 7.5 GM/DL 13.7-17.5 HEMATOCRIT (BEAKER) (test ptrf=350) 24.2 % 40.1-51.0 MEAN CORPUSCULAR VOLUME (BEAKER) (test oggg=759) 93.1 fL 79.0-92.2 MEAN CORPUSCULAR HEMOGLOBIN (BEAKER) (test 28.8 pg 25.7-32.2 efbn=390) MEAN CORPUSCULAR HEMOGLOBIN CONC (BEAKER) (test 31.0 GM/DL 32.3-36.5 tklt=850) RED CELL DISTRIBUTION WIDTH (BEAKER) (test 16.8 % 11.6-14.4 kgxh=619) PLATELET COUNT (BEAKER) (test tkez=693) 299 K/CU MM 150-450 MEAN PLATELET VOLUME (BEAKER) (test ulzf=726) 9.9 fL 9.4-12.4 NUCLEATED RED BLOOD CELLS (BEAKER) (test 0 /100 WBC 0-0 bhrb=441) POCT-GLUCOSE [id number] 08:05:00 Test Item Value Reference Range Comments POC-GLUCOSE METER (BEAKER) 165 mg/dL 70-110 TESTED AT [address] (test jhmd=7390) [place] [id number] 06:32:00 Test Item Value Reference Range Comments MAGNESIUM (BEAKER) (test hmrc=475) 1.0 mg/dL 1.6-2.6 [id number] 06:31:00 Test Item Value Reference Range Comments PHOSPHORUS (BEAKER) (test zbrh=637) 2.9 mg/dL 2.3-4.7 BASIC METABOLIC [id number] 06:31:00 Test Item Value Reference Range Comments SODIUM (BEAKER) (test 138 meq/L 136-145 mihg=769) POTASSIUM (BEAKER) (test 3.3 meq/L 3.5-5.1 pmhn=334) CHLORIDE (BEAKER) (test 103 meq/L 98-107 cvza=851) CO2 (BEAKER) (test 26 meq/L 22-29 hybq=063) BLOOD UREA NITROGEN 13 mg/dL 7-21 (BEAKER) (test nizy=739) CREATININE (BEAKER) (test 0.85 mg/dL 0.57-1.25 lnrj=771) GLUCOSE RANDOM (BEAKER) 135 mg/dL 70-105 (test hlro=745) CALCIUM (BEAKER) (test 8.6 mg/dL 8.4-10.2 bozc=106) EGFR (BEAKER) (test 87 mL/min/1.73 sq m ESTIMATED GFR IS NOT pjhc=0777) ACCURATE CREATININE CLEARANCE IN PREDICTING GLOMERULAR FILTRATION RATE. ESTIMATED GFR IS NOT APPLICABLE FOR DIALYSIS PATIENTS. POCT-GLUCOSE [id number] 21:42:00 Test Item Value Reference Range Comments POC-GLUCOSE METER (BEAKER) 139 mg/dL 70-110 TESTED AT [address] (test ssfv=5673) [facility] [address] POCT-GLUCOSE [id number] 17:39:00 Test Item Value Reference Range Comments POC-GLUCOSE METER (BEAKER) 225 mg/dL 70-110 TESTED AT [address] (test sonj=2968) [facility] [address] POCT-GLUCOSE [id number] 12:02:00 Test Item Value Reference Range Comments POC-GLUCOSE METER (BEAKER) 153 mg/dL 70-110 TESTED AT [address] (test jhko=0124) [facility] [address] POCT-GLUCOSE [id number] 09:32:00 Test Item Value Reference Range Comments POC-GLUCOSE METER (BEAKER) 82 mg/dL 70-110 TESTED AT [facility] [address] (test ybkv=9962) [facility] [address] [id number] 06:51:00 Test Item Value Reference Range Comments PHOSPHORUS (BEAKER) (test utcp=778) 2.6 mg/dL 2.3-4.7 [id number] 06:51:00 Test Item Value Reference Range Comments MAGNESIUM (BEAKER) (test qtvp=152) 1.4 mg/dL 1.6-2.6 BASIC METABOLIC [id number] 06:51:00 Test Item Value Reference Range Comments SODIUM (BEAKER) (test 138 meq/L 136-145 khms=309) POTASSIUM (BEAKER) (test 3.5 meq/L 3.5-5.1 ehda=219) CHLORIDE (BEAKER) (test 105 meq/L 98-107 nezf=780) CO2 (BEAKER) (test 22 meq/L 22-29 brpc=813) BLOOD UREA NITROGEN 14 mg/dL 7-21 (BEAKER) (test gkcg=200) CREATININE (BEAKER) (test 0.85 mg/dL 0.57-1.25 bmrk=703) GLUCOSE RANDOM (BEAKER) 87 mg/dL 70-105 (test sfea=007) CALCIUM (BEAKER) (test 9.1 mg/dL 8.4-10.2 sqdq=963) EGFR (BEAKER) (test 87 mL/min/1.73 sq m ESTIMATED GFR IS NOT jlel=5863) ACCURATE CREATININE CLEARANCE IN PREDICTING GLOMERULAR FILTRATION RATE. ESTIMATED GFR IS NOT APPLICABLE FOR DIALYSIS PATIENTS. CBC W/PLT COUNT & AUTO [id number] 05:59:00 Test Item Value Reference Range Comments WHITE BLOOD CELL COUNT (BEAKER) (test ixlh=426) 7.9 K/ L 3.5-10.5 RED BLOOD CELL COUNT (BEAKER) (test aeyz=979) 3.03 M/ L 4.63-6.08 HEMOGLOBIN (BEAKER) (test czjd=841) 8.8 GM/DL 13.7-17.5 HEMATOCRIT (BEAKER) (test kqxp=765) 29.2 % 40.1-51.0 MEAN CORPUSCULAR VOLUME (BEAKER) (test pbsv=074) 96.4 fL 79.0-92.2 MEAN CORPUSCULAR HEMOGLOBIN (BEAKER) (test 29.0 pg 25.7-32.2 qluy=837) MEAN CORPUSCULAR HEMOGLOBIN CONC (BEAKER) (test 30.1 GM/DL 32.3-36.5 obzg=997) RED CELL DISTRIBUTION WIDTH (BEAKER) (test 16.8 % 11.6-14.4 xuam=866) PLATELET COUNT (BEAKER) (test iuon=524) 309 K/CU MM 150-450 MEAN PLATELET VOLUME (BEAKER) (test thxk=560) 10.0 fL 9.4-12.4 NUCLEATED RED BLOOD CELLS (BEAKER) (test 0 /100 WBC 0-0 dxxc=398) NEUTROPHILS RELATIVE PERCENT (BEAKER) (test 60 % zyen=226) LYMPHOCYTES RELATIVE PERCENT (BEAKER) (test 25 % sdfi=384) MONOCYTES RELATIVE PERCENT (BEAKER) (test 9 % inpg=023) EOSINOPHILS RELATIVE PERCENT (BEAKER) (test 5 % vplt=387) BASOPHILS RELATIVE PERCENT (BEAKER) (test 1 % qsyo=292) NEUTROPHILS ABSOLUTE COUNT (BEAKER) (test 4.71 K/ L 1.78-5.38 ymny=719) LYMPHOCYTES ABSOLUTE COUNT (BEAKER) (test 1.93 K/ L 1.32-3.57 eenp=179) MONOCYTES ABSOLUTE COUNT (BEAKER) (test 0.70 K/ L 0.30-0.82 alur=322) EOSINOPHILS ABSOLUTE COUNT (BEAKER) (test 0.36 K/ L 0.04-0.54 bhpv=386) BASOPHILS ABSOLUTE COUNT (BEAKER) (test 0.11 K/ L 0.01-0.08 ywwc=334) IMMATURE GRANULOCYTES-RELATIVE PERCENT (BEAKER) 1 % 0-1 (test strf=5150) POCT-GLUCOSE [id number] 22:42:00 Test Item Value Reference Range Comments POC-GLUCOSE METER (BEAKER) 143 mg/dL 70-110 TESTED AT [address] (test rojr=2486) [facility] [address] POCT-GLUCOSE [id number] 17:31:00 Test Item Value Reference Range Comments POC-GLUCOSE METER (BEAKER) 167 mg/dL 70-110 TESTED AT [address] (test qqha=6703) [facility] [address] POCT-GLUCOSE [id number] 12:29:00 Test Item Value Reference Range Comments POC-GLUCOSE METER (BEAKER) 196 mg/dL 70-110 TESTED AT [address] (test qgut=9424) [facility] [address] POCT-GLUCOSE [id number] 07:54:00 Test Item Value Reference Range Comments POC-GLUCOSE METER (BEAKER) 138 mg/dL 70-110 TESTED AT [address] (test dtgw=9350) [facility] [address] [id number] 06:13:00 Test Item Value Reference Range Comments PHOSPHORUS (BEAKER) (test qisj=765) 3.2 mg/dL 2.3-4.7 [id number] 06:13:00 Test Item Value Reference Range Comments MAGNESIUM (BEAKER) (test xvwo=337) 1.3 mg/dL 1.6-2.6 CBC W/PLT COUNT & AUTO [id number] 05:50:00 Test Item Value Reference Range Comments WHITE BLOOD CELL COUNT (BEAKER) (test fboy=315) 6.1 K/ L 3.5-10.5 RED BLOOD CELL COUNT (BEAKER) (test jjfm=989) 2.70 M/ L 4.63-6.08 HEMOGLOBIN (BEAKER) (test ilox=833) 8.1 GM/DL 13.7-17.5 HEMATOCRIT (BEAKER) (test tsks=634) 26.1 % 40.1-51.0 MEAN CORPUSCULAR VOLUME (BEAKER) (test addr=031) 96.7 fL 79.0-92.2 MEAN CORPUSCULAR HEMOGLOBIN (BEAKER) (test 30.0 pg 25.7-32.2 cmzo=344) MEAN CORPUSCULAR HEMOGLOBIN CONC (BEAKER) (test 31.0 GM/DL 32.3-36.5 qtce=861) RED CELL DISTRIBUTION WIDTH (BEAKER) (test 16.8 % 11.6-14.4 funw=899) PLATELET COUNT (BEAKER) (test uuge=982) 254 K/CU MM 150-450 MEAN PLATELET VOLUME (BEAKER) (test yheq=427) 10.7 fL 9.4-12.4 NUCLEATED RED BLOOD CELLS (BEAKER) (test 0 /100 WBC 0-0 znia=655) NEUTROPHILS RELATIVE PERCENT (BEAKER) (test 58 % hwbf=153) LYMPHOCYTES RELATIVE PERCENT (BEAKER) (test 25 % mfio=970) MONOCYTES RELATIVE PERCENT (BEAKER) (test 11 % mwxk=290) EOSINOPHILS RELATIVE PERCENT (BEAKER) (test 5 % yyxw=037) BASOPHILS RELATIVE PERCENT (BEAKER) (test 2 % ipio=915) NEUTROPHILS ABSOLUTE COUNT (BEAKER) (test 3.53 K/ L 1.78-5.38 azye=800) LYMPHOCYTES ABSOLUTE COUNT (BEAKER) (test 1.54 K/ L 1.32-3.57 kmjp=565) MONOCYTES ABSOLUTE COUNT (BEAKER) (test 0.64 K/ L 0.30-0.82 ijmb=705) EOSINOPHILS ABSOLUTE COUNT (BEAKER) (test 0.28 K/ L 0.04-0.54 drzg=645) BASOPHILS ABSOLUTE COUNT (BEAKER) (test 0.09 K/ L 0.01-0.08 rqjq=723) IMMATURE GRANULOCYTES-RELATIVE PERCENT (BEAKER) 1 % 0-1 (test oaii=7243) POCT-GLUCOSE [id number] 21:11:00 Test Item Value Reference Range Comments POC-GLUCOSE METER (BEAKER) 160 mg/dL 70-110 TESTED AT [address] (test qayn=7786) [place] [address] BLOOD [id number] 18:00:00 Test Item Value Reference Range Comments CULTURE (BEAKER) (test shnt=0189) No growth in 5 days POCT-GLUCOSE [id number] 17:54:00 Test Item Value Reference Range Comments POC-GLUCOSE METER (BEAKER) 163 mg/dL 70-110 TESTED AT [address] (test ehrw=9394) [place] [address] POCT-GLUCOSE [id number] 12:41:00 Test Item Value Reference Range Comments POC-GLUCOSE METER (BEAKER) 133 mg/dL 70-110 TESTED AT [address] (test slkr=3894) [place] [address] BLOOD [id number] 11:00:00 Test Item Value Reference Range Comments CULTURE (BEAKER) (test atpi=6134) No growth in 5 days POCT-GLUCOSE [id number] 07:57:00 Test Item Value Reference Range Comments POC-GLUCOSE METER (BEAKER) 132 mg/dL 70-110 TESTED AT [facility] [address] (test nonq=7698) [facility] [address] VANCOMYCIN LEVEL, [id number] 07:30:00 Test Item Value Reference Range Comments VANCOMYCIN RANDOM (BEAKER) (test koii=349) 31.8 ug/mL Reference Range: No [id number] 07:09:00 Test Item Value Reference Range Comments PHOSPHORUS (BEAKER) (test uaky=702) 3.5 mg/dL 2.3-4.7 [id number] 07:09:00 Test Item Value Reference Range Comments MAGNESIUM (BEAKER) (test jctw=888) 1.4 mg/dL 1.6-2.6 BASIC METABOLIC [id number] 07:09:00 Test Item Value Reference Range Comments SODIUM (BEAKER) (test 137 meq/L 136-145 igrg=472) POTASSIUM (BEAKER) (test 3.9 meq/L 3.5-5.1 ueog=641) CHLORIDE (BEAKER) (test 100 meq/L 98-107 rfug=221) CO2 (BEAKER) (test 26 meq/L 22-29 kgim=048) BLOOD UREA NITROGEN 20 mg/dL 7-21 (BEAKER) (test ihkz=467) CREATININE (BEAKER) (test 0.94 mg/dL 0.57-1.25 fiuv=343) GLUCOSE RANDOM (BEAKER) 133 mg/dL 70-105 (test iogb=139) CALCIUM (BEAKER) (test 8.9 mg/dL 8.4-10.2 fkfp=454) EGFR (BEAKER) (test 77 mL/min/1.73 sq m ESTIMATED GFR IS NOT rgqb=1986) ACCURATE CREATININE CLEARANCE IN PREDICTING GLOMERULAR FILTRATION RATE. ESTIMATED GFR IS NOT APPLICABLE FOR DIALYSIS PATIENTS. CBC W/PLT COUNT & AUTO [id number] 06:27:00 Test Item Value Reference Range Comments WHITE BLOOD CELL COUNT (BEAKER) (test cnft=008) 7.1 K/ L 3.5-10.5 RED BLOOD CELL COUNT (BEAKER) (test nfyp=154) 2.56 M/ L 4.63-6.08 HEMOGLOBIN (BEAKER) (test hyme=637) 7.6 GM/DL 13.7-17.5 HEMATOCRIT (BEAKER) (test yiad=604) 24.3 % 40.1-51.0 MEAN CORPUSCULAR VOLUME (BEAKER) (test kgvk=606) 94.9 fL 79.0-92.2 MEAN CORPUSCULAR HEMOGLOBIN (BEAKER) (test 29.7 pg 25.7-32.2 ooko=912) MEAN CORPUSCULAR HEMOGLOBIN CONC (BEAKER) (test 31.3 GM/DL 32.3-36.5 uzjd=236) RED CELL DISTRIBUTION WIDTH (BEAKER) (test 16.8 % 11.6-14.4 bbub=717) PLATELET COUNT (BEAKER) (test tvbb=554) 232 K/CU MM 150-450 MEAN PLATELET VOLUME (BEAKER) (test okxw=365) 10.5 fL 9.4-12.4 NUCLEATED RED BLOOD CELLS (BEAKER) (test 0 /100 WBC 0-0 ajas=191) NEUTROPHILS RELATIVE PERCENT (BEAKER) (test 61 % xovk=121) LYMPHOCYTES RELATIVE PERCENT (BEAKER) (test 24 % vglw=182) MONOCYTES RELATIVE PERCENT (BEAKER) (test 9 % shok=507) EOSINOPHILS RELATIVE PERCENT (BEAKER) (test 4 % psny=236) BASOPHILS RELATIVE PERCENT (BEAKER) (test 1 % shpv=939) NEUTROPHILS ABSOLUTE COUNT (BEAKER) (test 4.36 K/ L 1.78-5.38 hpil=727) LYMPHOCYTES ABSOLUTE COUNT (BEAKER) (test 1.71 K/ L 1.32-3.57 kixy=251) MONOCYTES ABSOLUTE COUNT (BEAKER) (test 0.66 K/ L 0.30-0.82 bzip=253) EOSINOPHILS ABSOLUTE COUNT (BEAKER) (test 0.29 K/ L 0.04-0.54 zvhy=484) BASOPHILS ABSOLUTE COUNT (BEAKER) (test 0.05 K/ L 0.01-0.08 tift=578) IMMATURE GRANULOCYTES-RELATIVE PERCENT (BEAKER) 0 % 0-1 (test phty=2184) POCT-GLUCOSE [id number] 21:46:00 Test Item Value Reference Range Comments POC-GLUCOSE METER (BEAKER) 262 mg/dL 70-110 TESTED AT [address] (test jcuu=3087) [place] [id number] POCT-GLUCOSE [id number] 17:44:00 Test Item Value Reference Range Comments POC-GLUCOSE METER (BEAKER) 175 mg/dL 70-110 TESTED AT [address] (test sbza=8032) [place] [address] POCT-GLUCOSE [id number] 12:25:00 Test Item Value Reference Range Comments POC-GLUCOSE METER (BEAKER) 173 mg/dL 70-110 TESTED AT [address] (test biqx=8933) [place] [address] BLOOD [id number] 12:00:00 Test Item Value Reference Range Comments CULTURE (BEAKER) (test eyml=4785) No growth in 5 days POCT-GLUCOSE [id number] 08:52:00 Test Item Value Reference Range Comments POC-GLUCOSE METER (BEAKER) 183 mg/dL 70-110 TESTED AT [address] (test ymeg=4823) [place] [address] [id number] 06:01:00 Test Item Value Reference Range Comments PHOSPHORUS (BEAKER) (test qrks=635) 3.3 mg/dL 2.3-4.7 [id number] 06:01:00 Test Item Value Reference Range Comments MAGNESIUM (BEAKER) (test ryor=370) 1.8 mg/dL 1.6-2.6 BASIC METABOLIC [id number] 06:01:00 Test Item Value Reference Range Comments SODIUM (BEAKER) (test 138 meq/L 136-145 fhgr=022) POTASSIUM (BEAKER) (test 4.0 meq/L 3.5-5.1 jopx=119) CHLORIDE (BEAKER) (test 101 meq/L 98-107 udth=351) CO2 (BEAKER) (test 25 meq/L 22-29 uzos=013) BLOOD UREA NITROGEN 22 mg/dL 7-21 (BEAKER) (test jbpg=933) CREATININE (BEAKER) (test 0.90 mg/dL 0.57-1.25 mgit=303) GLUCOSE RANDOM (BEAKER) 145 mg/dL 70-105 (test aanx=683) CALCIUM (BEAKER) (test 8.7 mg/dL 8.4-10.2 stle=631) EGFR (BEAKER) (test 81 mL/min/1.73 sq m ESTIMATED GFR IS NOT crzi=2005) ACCURATE CREATININE CLEARANCE IN PREDICTING GLOMERULAR FILTRATION RATE. ESTIMATED GFR IS NOT APPLICABLE FOR DIALYSIS PATIENTS. CBC W/PLT COUNT & AUTO [id number] 04:59:00 Test Item Value Reference Range Comments WHITE BLOOD CELL COUNT (BEAKER) (test urtu=264) 10.0 K/ L 3.5-10.5 RED BLOOD CELL COUNT (BEAKER) (test cnzb=518) 2.62 M/ L 4.63-6.08 HEMOGLOBIN (BEAKER) (test rgew=223) 7.6 GM/DL 13.7-17.5 HEMATOCRIT (BEAKER) (test pciw=909) 24.7 % 40.1-51.0 MEAN CORPUSCULAR VOLUME (BEAKER) (test cbku=042) 94.3 fL 79.0-92.2 MEAN CORPUSCULAR HEMOGLOBIN (BEAKER) (test 29.0 pg 25.7-32.2 ccuf=077) MEAN CORPUSCULAR HEMOGLOBIN CONC (BEAKER) (test 30.8 GM/DL 32.3-36.5 pzwp=058) RED CELL DISTRIBUTION WIDTH (BEAKER) (test 16.9 % 11.6-14.4 vawg=259) PLATELET COUNT (BEAKER) (test yars=913) 200 K/CU MM 150-450 MEAN PLATELET VOLUME (BEAKER) (test xysf=671) 11.1 fL 9.4-12.4 NUCLEATED RED BLOOD CELLS (BEAKER) (test 0 /100 WBC 0-0 kdtj=058) NEUTROPHILS RELATIVE PERCENT (BEAKER) (test 72 % ydxs=272) LYMPHOCYTES RELATIVE PERCENT (BEAKER) (test 17 % ugir=803) MONOCYTES RELATIVE PERCENT (BEAKER) (test 7 % thsr=987) EOSINOPHILS RELATIVE PERCENT (BEAKER) (test 2 % wgod=914) BASOPHILS RELATIVE PERCENT (BEAKER) (test 1 % hwgq=222) NEUTROPHILS ABSOLUTE COUNT (BEAKER) (test 7.18 K/ L 1.78-5.38 xhvn=433) LYMPHOCYTES ABSOLUTE COUNT (BEAKER) (test 1.74 K/ L 1.32-3.57 quqm=364) MONOCYTES ABSOLUTE COUNT (BEAKER) (test 0.73 K/ L 0.30-0.82 vuav=687) EOSINOPHILS ABSOLUTE COUNT (BEAKER) (test 0.21 K/ L 0.04-0.54 gllq=727) BASOPHILS ABSOLUTE COUNT (BEAKER) (test 0.08 K/ L 0.01-0.08 cgum=755) IMMATURE GRANULOCYTES-RELATIVE PERCENT (BEAKER) 1 % 0-1 (test zgok=7328) POCT-GLUCOSE [id number] 21:51:00 Test Item Value Reference Range Comments POC-GLUCOSE METER (BEAKER) 203 mg/dL 70-110 TESTED AT [address] (test hjbt=5923) [place] [address] POCT-GLUCOSE [id number] 17:35:00 Test Item Value Reference Range Comments POC-GLUCOSE METER (BEAKER) 218 mg/dL 70-110 TESTED AT [address] (test sqvn=3243) [place] [address] SPUTUM CULTURE + GRAM [id number] 15:48:00 Test Item Value Reference Range Comments CULTURE (BEAKER) (test METHICILLIN RESISTANT <1+ Methicillin resistant evgk=7318) STAPHYLOCOCCUS AUREUS Staphylococcus aureus Clindamycin (test code=10) Erythromycin (test code=4) Linezolid (test code=40) Nitrofurantoin (test code=23) Oxacillin (test code=14) Rifampin (test code=43) Tetracycline (test code=2) Trimethoprim + Sulfamethoxazole (test code=47) Vancomycin (test code=13) CULTURE (BEAKER) (test <1+ Streptococcus not ahig=4897) group A beta hemolyticIdentified by serological grouping. GRAM STAIN RESULT No WBCs (BEAKER) (test ofsd=0938) GRAM STAIN RESULT 0-5 epithelial cells (BEAKER) (test tpfe=882826) GRAM STAIN RESULT No organisms seen (BEAKER) (test chyh=822082) <1+ Normal respiratory melanie presentPOCT-GLUCOSE [id number] 12:00:00 Test Item Value Reference Range Comments POC-GLUCOSE METER (BEAKER) 194 mg/dL 70-110 TESTED AT [address] (test bwrc=5097) [place] [address] BLOOD [id number] 12:00:00 Test Item Value Reference Range Comments CULTURE (BEAKER) (test lfsc=5387) No growth in 5 days BLOOD [id number] 12:00:00 Test Item Value Reference Range Comments CULTURE (BEAKER) (test akpe=2149) No growth in 5 days POCT-GLUCOSE [id number] 05:58:00 Test Item Value Reference Range Comments POC-GLUCOSE METER (BEAKER) 228 mg/dL 70-110 TESTED AT [facility] [address] (test yzvw=0328) [place] [address] [id number] 04:42:00 Test Item Value Reference Range Comments PHOSPHORUS (BEAKER) (test wbcp=067) 3.1 mg/dL 2.3-4.7 [id number] 04:42:00 Test Item Value Reference Range Comments MAGNESIUM (BEAKER) (test vchf=547) 1.9 mg/dL 1.6-2.6 BASIC METABOLIC [id number] 04:42:00 Test Item Value Reference Range Comments SODIUM (BEAKER) (test 138 meq/L 136-145 rtbu=052) POTASSIUM (BEAKER) (test 4.2 meq/L 3.5-5.1 xcgj=079) CHLORIDE (BEAKER) (test 101 meq/L 98-107 yiuc=446) CO2 (BEAKER) (test 28 meq/L 22-29 abnv=103) BLOOD UREA NITROGEN 23 mg/dL 7-21 (BEAKER) (test djex=890) CREATININE (BEAKER) (test 0.87 mg/dL 0.57-1.25 uwyh=913) GLUCOSE RANDOM (BEAKER) 181 mg/dL 70-105 (test ttzf=847) CALCIUM (BEAKER) (test 8.7 mg/dL 8.4-10.2 ltcr=125) EGFR (BEAKER) (test 84 mL/min/1.73 sq m ESTIMATED GFR IS NOT cqvb=2037) ACCURATE CREATININE CLEARANCE IN PREDICTING GLOMERULAR FILTRATION RATE. ESTIMATED GFR IS NOT APPLICABLE FOR DIALYSIS PATIENTS. CBC W/PLT COUNT & AUTO [id number] 04:27:00 Test Item Value Reference Range Comments WHITE BLOOD CELL COUNT (BEAKER) (test iczr=576) 15.8 K/ L 3.5-10.5 RED BLOOD CELL COUNT (BEAKER) (test wdgn=427) 2.66 M/ L 4.63-6.08 HEMOGLOBIN (BEAKER) (test qpbo=064) 7.8 GM/DL 13.7-17.5 HEMATOCRIT (BEAKER) (test zdlw=823) 25.2 % 40.1-51.0 MEAN CORPUSCULAR VOLUME (BEAKER) (test jjmu=870) 94.7 fL 79.0-92.2 MEAN CORPUSCULAR HEMOGLOBIN (BEAKER) (test 29.3 pg 25.7-32.2 nnrf=564) MEAN CORPUSCULAR HEMOGLOBIN CONC (BEAKER) (test 31.0 GM/DL 32.3-36.5 pepp=575) RED CELL DISTRIBUTION WIDTH (BEAKER) (test 17.0 % 11.6-14.4 cerj=167) PLATELET COUNT (BEAKER) (test wavv=725) 219 K/CU MM 150-450 MEAN PLATELET VOLUME (BEAKER) (test hxaa=697) 11.0 fL 9.4-12.4 NUCLEATED RED BLOOD CELLS (BEAKER) (test 0 /100 WBC 0-0 kpbu=277) NEUTROPHILS RELATIVE PERCENT (BEAKER) (test 82 % yzti=897) LYMPHOCYTES RELATIVE PERCENT (BEAKER) (test 10 % vzuk=016) MONOCYTES RELATIVE PERCENT (BEAKER) (test 6 % lydi=390) EOSINOPHILS RELATIVE PERCENT (BEAKER) (test 1 % psyc=459) BASOPHILS RELATIVE PERCENT (BEAKER) (test 0 % iegx=173) NEUTROPHILS ABSOLUTE COUNT (BEAKER) (test 12.89 K/ L 1.78-5.38 lqpb=222) LYMPHOCYTES ABSOLUTE COUNT (BEAKER) (test 1.61 K/ L 1.32-3.57 hcpd=392) MONOCYTES ABSOLUTE COUNT (BEAKER) (test 0.95 K/ L 0.30-0.82 erfd=474) EOSINOPHILS ABSOLUTE COUNT (BEAKER) (test 0.13 K/ L 0.04-0.54 tebz=129) BASOPHILS ABSOLUTE COUNT (BEAKER) (test 0.07 K/ L 0.01-0.08 tpuy=451) IMMATURE GRANULOCYTES-RELATIVE PERCENT (BEAKER) 1 % 0-1 (test enle=5368) POCT-GLUCOSE [id number] 00:11:00 Test Item Value Reference Range Comments POC-GLUCOSE METER (BEAKER) 194 mg/dL 70-110 TESTED AT [facility] [address] (test wvjh=5266) [facility] [address] [id number] 20:46:00 Test Item Value Reference Range Comments MAGNESIUM (BEAKER) (test pogl=911) 1.9 mg/dL 1.6-2.6 BASIC METABOLIC [id number] 20:46:00 Test Item Value Reference Range Comments SODIUM (BEAKER) (test 138 meq/L 136-145 tpep=729) POTASSIUM (BEAKER) (test 4.2 meq/L 3.5-5.1 manf=230) CHLORIDE (BEAKER) (test 100 meq/L 98-107 crst=425) CO2 (BEAKER) (test 29 meq/L 22-29 ikkz=083) BLOOD UREA NITROGEN 22 mg/dL 7-21 (BEAKER) (test gbsf=055) CREATININE (BEAKER) (test 0.85 mg/dL 0.57-1.25 zkap=573) GLUCOSE RANDOM (BEAKER) 293 mg/dL 70-105 (test ulzu=784) CALCIUM (BEAKER) (test 8.9 mg/dL 8.4-10.2 wewd=033) EGFR (BEAKER) (test 87 mL/min/1.73 sq m ESTIMATED GFR IS NOT txyp=9501) ACCURATE CREATININE CLEARANCE IN PREDICTING GLOMERULAR FILTRATION RATE. ESTIMATED GFR IS NOT APPLICABLE FOR DIALYSIS PATIENTS. POCT-GLUCOSE [id number] 19:29:00 Test Item Value Reference Range Comments POC-GLUCOSE METER (BEAKER) 317 mg/dL 70-110 TESTED AT [facility] [address] [facility] (test jwro=6623) [facility] [address] BLOOD GAS, [id number] 18:31:00 Test Item Value Reference Range Comments PH VENOUS (BEAKER) (test vikn=596) 7.46 7.32-7.42 PCO2 VENOUS (BEAKER) (test swwe=345) 48 mmHg 41-51 PO2 VENOUS (BEAKER) (test ytly=364) 18 mmHg 25-40 O2 SATURATION VENOUS (BEAKER) (test grvp=754) 29.8 % 40.0-70.0 HCO3 VENOUS (BEAKER) (test ejqy=778) 33 mmol/L 21-29 BASE EXCESS VENOUS (BEAKER) (test hbyu=850) 8.6 mmol/L -2.0-3.0 PATIENT TEMPERATURE (BEAKER) (test ramr=8125) 37.0 C From midlinePOCT-GLUCOSE [id number] 12:03:00 Test Item Value Reference Range Comments POC-GLUCOSE METER (BEAKER) 107 mg/dL 70-110 TESTED AT [address] (test qrry=6268) [facility] [address] POCT-GLUCOSE [id number] 12:03:00 Test Item Value Reference Range Comments POC-GLUCOSE METER (BEAKER) 75 mg/dL 70-110 TESTED AT [address] (test ydbb=6258) [facility] [address] [id number] 06:12:00 Test Item Value Reference Range Comments FERRITIN (BEAKER) (test poom=430) 334 ng/mL 5-275 VITAMIN B12 AND [id number] 06:12:00 Test Item Value Reference Range Comments VITAMIN B12 (BEAKER) (test vtos=609) 508 pg/mL 213-816 FOLATE (BEAKER) (test yxql=335) 16.5 ng/mL >=7.0 POCT-GLUCOSE [id number] 06:00:00 Test Item Value Reference Range Comments POC-GLUCOSE METER (BEAKER) 84 mg/dL 70-110 TESTED AT [address] (test vvhb=0195) [facility] [address] IRON, TIBC, % SAT. (WITHOUT FERRITIN)[id number] 05:42:00 Test Item Value Reference Range Comments IRON (BEAKER) (test xvwy=858) 15 ug/dL 40-160 TOTAL IRON BINDING CAPACITY (BEAKER) (test 183 ug/dL 250-450 ultm=981) IRON % SATURATION (2) (BEAKER) (test rcxg=7790) 8 % 20-55 [id number] 05:42:00 Test Item Value Reference Range Comments PHOSPHORUS (BEAKER) (test anlk=127) 2.8 mg/dL 2.3-4.7 [id number] 05:42:00 Test Item Value Reference Range Comments MAGNESIUM (BEAKER) (test hhhq=029) 1.6 mg/dL 1.6-2.6 BASIC METABOLIC [id number] 05:42:00 Test Item Value Reference Range Comments SODIUM (BEAKER) (test 140 meq/L 136-145 ezdr=640) POTASSIUM (BEAKER) (test 3.7 meq/L 3.5-5.1 fhmq=930) CHLORIDE (BEAKER) (test 103 meq/L 98-107 lqhx=222) CO2 (BEAKER) (test 29 meq/L 22-29 pciu=068) BLOOD UREA NITROGEN 25 mg/dL 7-21 (BEAKER) (test fnmr=806) CREATININE (BEAKER) (test 0.75 mg/dL 0.57-1.25 usng=326) GLUCOSE RANDOM (BEAKER) 70 mg/dL 70-105 (test lrcv=801) CALCIUM (BEAKER) (test 8.8 mg/dL 8.4-10.2 ynlc=404) EGFR (BEAKER) (test 100 mL/min/1.73 sq m ESTIMATED GFR IS NOT ceed=7986) ACCURATE CREATININE CLEARANCE IN PREDICTING GLOMERULAR FILTRATION RATE. ESTIMATED GFR IS NOT APPLICABLE FOR DIALYSIS PATIENTS. CBC W/PLT COUNT & AUTO [id number] 05:25:00 Test Item Value Reference Range Comments WHITE BLOOD CELL COUNT (BEAKER) (test zkde=523) 12.1 K/ L 3.5-10.5 RED BLOOD CELL COUNT (BEAKER) (test aphz=995) 2.62 M/ L 4.63-6.08 HEMOGLOBIN (BEAKER) (test dnkw=520) 7.8 GM/DL 13.7-17.5 HEMATOCRIT (BEAKER) (test qnza=066) 24.9 % 40.1-51.0 MEAN CORPUSCULAR VOLUME (BEAKER) (test fkdz=181) 95.0 fL 79.0-92.2 MEAN CORPUSCULAR HEMOGLOBIN (BEAKER) (test 29.8 pg 25.7-32.2 djxx=180) MEAN CORPUSCULAR HEMOGLOBIN CONC (BEAKER) (test 31.3 GM/DL 32.3-36.5 acos=010) RED CELL DISTRIBUTION WIDTH (BEAKER) (test 17.2 % 11.6-14.4 fngy=128) PLATELET COUNT (BEAKER) (test ghwa=250) 188 K/CU MM 150-450 MEAN PLATELET VOLUME (BEAKER) (test eamp=592) 10.5 fL 9.4-12.4 NUCLEATED RED BLOOD CELLS (BEAKER) (test 0 /100 WBC 0-0 ohdt=782) NEUTROPHILS RELATIVE PERCENT (BEAKER) (test 71 % ohcn=800) LYMPHOCYTES RELATIVE PERCENT (BEAKER) (test 16 % dmbk=602) MONOCYTES RELATIVE PERCENT (BEAKER) (test 9 % mifs=693) EOSINOPHILS RELATIVE PERCENT (BEAKER) (test 3 % nhba=194) BASOPHILS RELATIVE PERCENT (BEAKER) (test 1 % ndnx=387) NEUTROPHILS ABSOLUTE COUNT (BEAKER) (test 8.58 K/ L 1.78-5.38 swtv=694) LYMPHOCYTES ABSOLUTE COUNT (BEAKER) (test 1.87 K/ L 1.32-3.57 vqmp=055) MONOCYTES ABSOLUTE COUNT (BEAKER) (test 1.12 K/ L 0.30-0.82 jter=812) EOSINOPHILS ABSOLUTE COUNT (BEAKER) (test 0.33 K/ L 0.04-0.54 wijt=230) BASOPHILS ABSOLUTE COUNT (BEAKER) (test 0.09 K/ L 0.01-0.08 snny=146) IMMATURE GRANULOCYTES-RELATIVE PERCENT (BEAKER) 1 % 0-1 (test naew=3270) POCT-GLUCOSE [id number] 23:41:00 Test Item Value Reference Range Comments POC-GLUCOSE METER (BEAKER) 180 mg/dL 70-110 TESTED AT [address] (test aedp=8277) [facility] [address] RAD, ABDOMEN/KUB, 1 VIEW [id number] 22:29:00Reason for exam:->feeding tube placementFINAL REPORT Comparison: 06/07/2017 at 9:51 PM TECHNIQUE: Frontal image of the abdomen FINDINGS: Feeding tube has been repositioned. Tip now projects in the distal stomach. No other significant change. Signed: Kali Shay MDReport Verified Date/Time: 06/07/2017 22:29:27 Reading Location: [address] Consult Reading Room RAD, ABDOMEN/KUB, 1 VIEW [id number] 22:16:00Reason for exam:->feeding tube placementFINAL REPORT Comparison: 06/03/2017 TECHNIQUE: Frontal image of the abdomen FINDINGS: Feeding tube has been advanced. Distal portion is turned back upon itself and the tip projects in the fundus. Bowel gas pattern is nonspecific. Signed: Kali Shay MDReport Verified Date/Time: 06/07/2017 22:16:52 Reading Location: [address] Consult Reading Room [facility] METABOLIC [id number] 19:04: 00 Test Item Value Reference Range Comments SODIUM (BEAKER) (test 138 meq/L 136-145 ataw=570) POTASSIUM (BEAKER) (test 4.1 meq/L 3.5-5.1 lqsc=927) CHLORIDE (BEAKER) (test 102 meq/L 98-107 bzjq=511) CO2 (BEAKER) (test 28 meq/L 22-29 ntki=430) BLOOD UREA NITROGEN 27 mg/dL 7-21 (BEAKER) (test wcul=187) CREATININE (BEAKER) (test 0.83 mg/dL 0.57-1.25 rgmd=980) GLUCOSE RANDOM (BEAKER) 179 mg/dL 70-105 (test ffiw=743) CALCIUM (BEAKER) (test 8.6 mg/dL 8.4-10.2 mzyl=841) EGFR (BEAKER) (test 89 mL/min/1.73 sq m ESTIMATED GFR IS NOT ighh=2955) ACCURATE CREATININE CLEARANCE IN PREDICTING GLOMERULAR FILTRATION RATE. ESTIMATED GFR IS NOT APPLICABLE FOR DIALYSIS PATIENTS. POCT-GLUCOSE [id number] 18:24:00 Test Item Value Reference Range Comments POC-GLUCOSE METER (BEAKER) 198 mg/dL 70-110 TESTED AT [address] (test hekn=7423) [facility] [address] [id number] 17:53:00 Test Item Value Reference Range Comments PROCALCITONIN (BEAKER) (test gzzv=1354) < ng/mL <0.05 SEPSIS RISK (ng/mL)Low: 0.05-0.50Intermediate: 0.51-2.00High: & gt;=2.01RETICULOCYTE [id number] 17:06:00 Test Item Value Reference Range Comments RETICULOCYTE COUNT PCT (BEAKER) (test bjgz=975) 2.7 % 0.5-1.8 POCT-GLUCOSE [id number] 13:07:00 Test Item Value Reference Range Comments POC-GLUCOSE METER (BEAKER) 240 mg/dL 70-110 TESTED AT [address] (test hduy=2320) [facility] [address] RAD, CHEST, 1 VIEW, NON [id number] 08:42:00Reason for exam:-> intubatedShould this be performed at the bedside?->YesFINAL REPORT Chest one view compared to June 06, 2017 Discussion: Left chest pacemaker, feeding tube, right IJ line in place. There is pulmonary congestion with subtle suspected airspace opacity left lung base all unchanged. No gross effusion or pneumothorax. Signed: Jerel Noguera Verified Date/Time: 03/2017 08:42:41 Reading Location: [facility] Reading Room TROPONIN [id number] 05:52:00 Test Item Value Reference Range Comments TROPONIN I (BEAKER) (test lxtd=502) 0.03 ng/mL 0.00-0.03 Troponin I (TnI) levels must be interpreted [...] failure, acidosis, acute neurological disease, and persistent tachyarrhythmia.POCT-GLUCOSE [id number] 05:48:00 Test Item Value Reference Range Comments POC-GLUCOSE METER (BEAKER) 148 mg/dL 70-110 TESTED AT [place] [id number] [facility] (test uzbr=2179) [place] [address] [id number] 05:43:00 Test Item Value Reference Range Comments PHOSPHORUS (BEAKER) (test whji=693) 2.9 mg/dL 2.3-4.7 [id number] 05:43:00 Test Item Value Reference Range Comments MAGNESIUM (BEAKER) (test rfpr=243) 1.6 mg/dL 1.6-2.6 BASIC METABOLIC [id number] 05:43:00 Test Item Value Reference Range Comments SODIUM (BEAKER) (test 139 meq/L 136-145 ngys=955) POTASSIUM (BEAKER) (test 3.8 meq/L 3.5-5.1 ewib=976) CHLORIDE (BEAKER) (test 104 meq/L 98-107 dhbb=521) CO2 (BEAKER) (test 26 meq/L 22-29 iiji=412) BLOOD UREA NITROGEN 31 mg/dL 7-21 (BEAKER) (test yhgl=664) CREATININE (BEAKER) (test 0.82 mg/dL 0.57-1.25 qduq=710) GLUCOSE RANDOM (BEAKER) 136 mg/dL 70-105 (test topp=770) CALCIUM (BEAKER) (test 8.1 mg/dL 8.4-10.2 nehg=003) EGFR (BEAKER) (test 90 mL/min/1.73 sq m ESTIMATED GFR IS NOT ootk=7140) ACCURATE CREATININE CLEARANCE IN PREDICTING GLOMERULAR FILTRATION RATE. ESTIMATED GFR IS NOT APPLICABLE FOR DIALYSIS PATIENTS. LACTIC ACID, VENOUS, WHOLE [id number] 05:41:00 Test Item Value Reference Range Comments LACTATE BLOOD VENOUS (2) (BEAKER) (test 0.9 mmol/L 0.5-2.2 vugc=8970) Effective 06/10/2015: Units/Reference Range ChangeNew: 0.5-2.2 mmol/L Previous: 5 -20 mg/dLCBC W/PLT COUNT & AUTO [id number] 05:26:00 Test Item Value Reference Range Comments WHITE BLOOD CELL COUNT (BEAKER) (test quuq=339) 10.9 K/ L 3.5-10.5 RED BLOOD CELL COUNT (BEAKER) (test tceq=870) 2.50 M/ L 4.63-6.08 HEMOGLOBIN (BEAKER) (test himq=678) 7.5 GM/DL 13.7-17.5 HEMATOCRIT (BEAKER) (test ehct=353) 23.8 % 40.1-51.0 MEAN CORPUSCULAR VOLUME (BEAKER) (test zzre=966) 95.2 fL 79.0-92.2 MEAN CORPUSCULAR HEMOGLOBIN (BEAKER) (test 30.0 pg 25.7-32.2 xfxi=468) MEAN CORPUSCULAR HEMOGLOBIN CONC (BEAKER) (test 31.5 GM/DL 32.3-36.5 vaay=467) RED CELL DISTRIBUTION WIDTH (BEAKER) (test 17.3 % 11.6-14.4 mrot=389) PLATELET COUNT (BEAKER) (test hsbn=045) 159 K/CU MM 150-450 MEAN PLATELET VOLUME (BEAKER) (test qvsg=406) 10.6 fL 9.4-12.4 NUCLEATED RED BLOOD CELLS (BEAKER) (test 0 /100 WBC 0-0 umyl=469) NEUTROPHILS RELATIVE PERCENT (BEAKER) (test 69 % rsat=221) LYMPHOCYTES RELATIVE PERCENT (BEAKER) (test 17 % efgj=474) MONOCYTES RELATIVE PERCENT (BEAKER) (test 9 % ovdm=400) EOSINOPHILS RELATIVE PERCENT (BEAKER) (test 4 % film=279) BASOPHILS RELATIVE PERCENT (BEAKER) (test 1 % tgdh=103) NEUTROPHILS ABSOLUTE COUNT (BEAKER) (test 7.59 K/ L 1.78-5.38 zeku=469) LYMPHOCYTES ABSOLUTE COUNT (BEAKER) (test 1.82 K/ L 1.32-3.57 cico=717) MONOCYTES ABSOLUTE COUNT (BEAKER) (test 1.03 K/ L 0.30-0.82 ajzw=806) EOSINOPHILS ABSOLUTE COUNT (BEAKER) (test 0.38 K/ L 0.04-0.54 evyc=435) BASOPHILS ABSOLUTE COUNT (BEAKER) (test 0.05 K/ L 0.01-0.08 nzae=778) IMMATURE GRANULOCYTES-RELATIVE PERCENT (BEAKER) 1 % 0-1 (test zwxf=0128) B-TYPE NATRIURETIC FACTOR (BNP)2017-06-07 00:39:00 Test Item Value Reference Range Comments B-TYPE NATRIURETIC PEPTIDE (BEAKER) (test 661 pg/mL 0-100 mplv=391) BASIC METABOLIC [id number] 00:34:00 Test Item Value Reference Range Comments SODIUM (BEAKER) (test 138 meq/L 136-145 aesv=551) POTASSIUM (BEAKER) (test 4.0 meq/L 3.5-5.1 uiek=225) CHLORIDE (BEAKER) (test 105 meq/L 98-107 srau=503) CO2 (BEAKER) (test 24 meq/L 22-29 apzz=431) BLOOD UREA NITROGEN 29 mg/dL 7-21 (BEAKER) (test njid=467) CREATININE (BEAKER) (test 0.81 mg/dL 0.57-1.25 nbyx=135) GLUCOSE RANDOM (BEAKER) 156 mg/dL 70-105 (test faqk=832) CALCIUM (BEAKER) (test 8.1 mg/dL 8.4-10.2 uqrm=253) EGFR (BEAKER) (test 92 mL/min/1.73 sq m ESTIMATED GFR IS NOT gwfm=5272) ACCURATE CREATININE CLEARANCE IN PREDICTING GLOMERULAR FILTRATION RATE. ESTIMATED GFR IS NOT APPLICABLE FOR DIALYSIS PATIENTS. POCT-GLUCOSE [id number] 23:42:00 Test Item Value Reference Range Comments POC-GLUCOSE METER (BEAKER) 195 mg/dL 70-110 TESTED AT [address] (test vvfi=3290) [place] [id number] BASIC METABOLIC [id number] 17:50:00 Test Item Value Reference Range Comments SODIUM (BEAKER) (test 138 meq/L 136-145 hpcg=622) POTASSIUM (BEAKER) (test 3.9 meq/L 3.5-5.1 nqsg=765) CHLORIDE (BEAKER) (test 105 meq/L 98-107 eikp=186) CO2 (BEAKER) (test 25 meq/L 22-29 qxfq=960) BLOOD UREA NITROGEN 31 mg/dL 7-21 (BEAKER) (test jbfk=734) CREATININE (BEAKER) (test 0.88 mg/dL 0.57-1.25 bepr=220) GLUCOSE RANDOM (BEAKER) 182 mg/dL 70-105 (test xauj=874) CALCIUM (BEAKER) (test 8.4 mg/dL 8.4-10.2 prje=623) EGFR (BEAKER) (test 83 mL/min/1.73 sq m ESTIMATED GFR IS NOT dzdo=8891) ACCURATE CREATININE CLEARANCE IN PREDICTING GLOMERULAR FILTRATION RATE. ESTIMATED GFR IS NOT APPLICABLE FOR DIALYSIS PATIENTS. POCT-GLUCOSE [id number] 17:48:00 Test Item Value Reference Range Comments POC-GLUCOSE METER (BEAKER) 228 mg/dL 70-110 TESTED AT [facility] [address] [facility] (test ctyu=9363) [place] [id number] POCT-GLUCOSE [id number] 12:03:00 Test Item Value Reference Range Comments POC-GLUCOSE METER (BEAKER) 237 mg/dL 70-110 TESTED AT [facility] [address] (test rked=2392) [facility] [address] BASIC METABOLIC [id number] 09:39:00 Test Item Value Reference Range Comments SODIUM (BEAKER) (test 140 meq/L 136-145 npjx=407) POTASSIUM (BEAKER) (test 4.0 meq/L 3.5-5.1 wdes=229) CHLORIDE (BEAKER) (test 108 meq/L 98-107 rbbr=475) CO2 (BEAKER) (test 25 meq/L 22-29 xqms=452) BLOOD UREA NITROGEN 33 mg/dL 7-21 (BEAKER) (test coby=151) CREATININE (BEAKER) (test 0.88 mg/dL 0.57-1.25 mhfm=738) GLUCOSE RANDOM (BEAKER) 184 mg/dL 70-105 (test szny=745) CALCIUM (BEAKER) (test 8.2 mg/dL 8.4-10.2 nosu=556) EGFR (BEAKER) (test 83 mL/min/1.73 sq m ESTIMATED GFR IS NOT febt=2481) ACCURATE CREATININE CLEARANCE IN PREDICTING GLOMERULAR FILTRATION RATE. ESTIMATED GFR IS NOT APPLICABLE FOR DIALYSIS PATIENTS. CALCIUM, [id number] 04:52:00 Test Item Value Reference Range Comments CALCIUM IONIZED (BEAKER) (test wskl=101) 1.08 mmol/L 1.12-1.27 PH, BLOOD (BEAKER) (test tyuo=6320) 7.42 [id number] 04:43:00 Test Item Value Reference Range Comments PHOSPHORUS (BEAKER) (test hwmo=631) 3.5 mg/dL 2.3-4.7 [id number] 04:43:00 Test Item Value Reference Range Comments MAGNESIUM (BEAKER) (test nkmt=719) 1.8 mg/dL 1.6-2.6 LACTIC ACID, VENOUS, WHOLE [id number] 04:34:00 Test Item Value Reference Range Comments LACTATE BLOOD VENOUS (2) (BEAKER) (test 1.6 mmol/L 0.5-2.2 gizr=9856) Effective 06/10/2015: Units/Reference Range ChangeNew: 0.5-2.2 mmol/L Previous: 5 -20 mg/dLRAD, CHEST, 1 VIEW, NON [id number] 04:29:00Reason for exam:-> intubatedShould this be performed at the bedside?->YesFINAL REPORT RAD, CHEST, 1 VIEW, NON DEPT INDICATION: intubated COMPARISON: Prior day's exam TECHNIQUE: Portable frontal view of the chest. IMPRESSION: Lines and tubes stable.Cardiomediastinal silhouette stable.Stable vascular congestion.Stable dense opacification at the left lung base likely reflecting a combination of pleural fluid and adjacent airspace disease.No acute osseous abnormality. Signed: Marci Levine MDReport Verified Date/Time: 06/06/2017 04 :29:24 Reading Location: [address] Transitional Reading Room CBC W/PLT COUNT & AUTO [id number] 04:14:00 Test Item Value Reference Range Comments WHITE BLOOD CELL COUNT (BEAKER) (test fyfi=135) 10.8 K/ L 3.5-10.5 RED BLOOD CELL COUNT (BEAKER) (test gtnw=272) 2.50 M/ L 4.63-6.08 HEMOGLOBIN (BEAKER) (test hihx=579) 7.6 GM/DL 13.7-17.5 HEMATOCRIT (BEAKER) (test cgfr=891) 24.4 % 40.1-51.0 MEAN CORPUSCULAR VOLUME (BEAKER) (test qjvh=009) 97.6 fL 79.0-92.2 MEAN CORPUSCULAR HEMOGLOBIN (BEAKER) (test 30.4 pg 25.7-32.2 kgas=597) MEAN CORPUSCULAR HEMOGLOBIN CONC (BEAKER) (test 31.1 GM/DL 32.3-36.5 xbdd=213) RED CELL DISTRIBUTION WIDTH (BEAKER) (test 18.1 % 11.6-14.4 gvpq=324) PLATELET COUNT (BEAKER) (test isky=576) 154 K/CU MM 150-450 MEAN PLATELET VOLUME (BEAKER) (test yhhn=506) 10.6 fL 9.4-12.4 NUCLEATED RED BLOOD CELLS (BEAKER) (test 0 /100 WBC 0-0 tzvp=972) NEUTROPHILS RELATIVE PERCENT (BEAKER) (test 71 % dxdo=052) LYMPHOCYTES RELATIVE PERCENT (BEAKER) (test 17 % oidg=430) MONOCYTES RELATIVE PERCENT (BEAKER) (test 9 % qles=272) EOSINOPHILS RELATIVE PERCENT (BEAKER) (test 3 % ycgv=625) BASOPHILS RELATIVE PERCENT (BEAKER) (test 0 % gcqh=488) NEUTROPHILS ABSOLUTE COUNT (BEAKER) (test 7.60 K/ L 1.78-5.38 yinr=332) LYMPHOCYTES ABSOLUTE COUNT (BEAKER) (test 1.79 K/ L 1.32-3.57 mfpn=669) MONOCYTES ABSOLUTE COUNT (BEAKER) (test 0.99 K/ L 0.30-0.82 cijf=350) EOSINOPHILS ABSOLUTE COUNT (BEAKER) (test 0.30 K/ L 0.04-0.54 frgv=256) BASOPHILS ABSOLUTE COUNT (BEAKER) (test 0.03 K/ L 0.01-0.08 byhm=446) IMMATURE GRANULOCYTES-RELATIVE PERCENT (BEAKER) 1 % 0-1 (test sycm=8700) POCT-GLUCOSE [id number] 04:08:00 Test Item Value Reference Range Comments POC-GLUCOSE METER (BEAKER) 262 mg/dL 70-110 TESTED AT [address] (test kqjm=9813) [place] [address] POCT-GLUCOSE [id number] 04:08:00 Test Item Value Reference Range Comments POC-GLUCOSE METER (BEAKER) 288 mg/dL 70-110 TESTED AT [address] (test tadi=0797) [place] [address] POCT-GLUCOSE [id number] 03:43:00 Test Item Value Reference Range Comments POC-GLUCOSE METER (BEAKER) 248 mg/dL 70-110 TESTED AT [address] (test ylyr=3197) [place] [address] BASIC METABOLIC [id number] 01:47:00 Test Item Value Reference Range Comments SODIUM (BEAKER) (test 140 meq/L 136-145 lfsp=848) POTASSIUM (BEAKER) (test 3.9 meq/L 3.5-5.1 ywhw=924) CHLORIDE (BEAKER) (test 109 meq/L 98-107 rmvy=781) CO2 (BEAKER) (test 24 meq/L 22-29 hdiz=452) BLOOD UREA NITROGEN 33 mg/dL 7-21 (BEAKER) (test yndz=419) CREATININE (BEAKER) (test 0.86 mg/dL 0.57-1.25 ddyb=704) GLUCOSE RANDOM (BEAKER) 231 mg/dL 70-105 (test oqvm=424) CALCIUM (BEAKER) (test 7.9 mg/dL 8.4-10.2 sesc=753) EGFR (BEAKER) (test 86 mL/min/1.73 sq m ESTIMATED GFR IS NOT jgxp=5817) ACCURATE CREATININE CLEARANCE IN PREDICTING GLOMERULAR FILTRATION RATE. ESTIMATED GFR IS NOT APPLICABLE FOR DIALYSIS PATIENTS. VANCOMYCIN LEVEL, [id number] 21:49:00 Test Item Value Reference Range Comments VANCOMYCIN TROUGH (BEAKER) (test nbnp=186) 21.4 ug/mL 10.0-20.0 POCT-GLUCOSE [id number] 18:34:00 Test Item Value Reference Range Comments POC-GLUCOSE METER (BEAKER) 250 mg/dL 70-110 TESTED AT [facility] [address] [facility] (test fgey=2318) [facility] [address] [id number] 18:00:00 Test Item Value Reference Range Comments MAGNESIUM (BEAKER) (test nnrh=355) 1.4 mg/dL 1.6-2.6 BASIC METABOLIC [id number] 18:00:00 Test Item Value Reference Range Comments SODIUM (BEAKER) (test 143 meq/L 136-145 fjnn=833) POTASSIUM (BEAKER) (test 3.8 meq/L 3.5-5.1 xzed=503) CHLORIDE (BEAKER) (test 110 meq/L 98-107 mwuh=542) CO2 (BEAKER) (test 26 meq/L 22-29 xyrh=344) BLOOD UREA NITROGEN 33 mg/dL 7-21 (BEAKER) (test jnph=492) CREATININE (BEAKER) (test 0.81 mg/dL 0.57-1.25 lbve=640) GLUCOSE RANDOM (BEAKER) 218 mg/dL 70-105 (test dqyz=770) CALCIUM (BEAKER) (test 8.4 mg/dL 8.4-10.2 gzgl=121) EGFR (BEAKER) (test 92 mL/min/1.73 sq m ESTIMATED GFR IS NOT pokj=4781) ACCURATE CREATININE CLEARANCE IN PREDICTING GLOMERULAR FILTRATION RATE. ESTIMATED GFR IS NOT APPLICABLE FOR DIALYSIS PATIENTS. POCT-GLUCOSE [id number] 11:41:00 Test Item Value Reference Range Comments POC-GLUCOSE METER (BEAKER) 214 mg/dL 70-110 TESTED AT [facility] [address] [facility] (test vprn=4328) [facility] [address] CREATINE KINASE (CK), TOTAL AND [id number] 10:29:00 Test Item Value Reference Range Comments CREATINE KINASE TOTAL (BEAKER) (test sjeh=254) 45 U/L 29-200 CREATINE KINASE-MB (BEAKER) (test iump=122) 0.5 ng/mL 0.0-6.6 CREATINE KINASE-MB INDEX (BEAKER) (test loff=223) 1.1 % CK-MB Reference Range:<6.7 Normal6.7-10.0 Borderline>10.0 AbnormalBASIC METABOLIC [id number] 10:23:00 Test Item Value Reference Range Comments SODIUM (BEAKER) (test 144 meq/L 136-145 lrps=731) POTASSIUM (BEAKER) (test 3.7 meq/L 3.5-5.1 oybj=583) CHLORIDE (BEAKER) (test 113 meq/L 98-107 dgoc=268) CO2 (BEAKER) (test 24 meq/L 22-29 wmxk=827) BLOOD UREA NITROGEN 33 mg/dL 7-21 (BEAKER) (test nbsf=525) CREATININE (BEAKER) (test 0.81 mg/dL 0.57-1.25 uppc=278) GLUCOSE RANDOM (BEAKER) 205 mg/dL 70-105 (test oszx=155) CALCIUM (BEAKER) (test 8.1 mg/dL 8.4-10.2 mjoi=568) EGFR (BEAKER) (test 92 mL/min/1.73 sq m ESTIMATED GFR IS NOT natk=6452) ACCURATE CREATININE CLEARANCE IN PREDICTING GLOMERULAR FILTRATION RATE. ESTIMATED GFR IS NOT APPLICABLE FOR DIALYSIS PATIENTS. RAD, CHEST, 1 VIEW, NON [id number] 07:34:00Reason for exam:-> intubatedShould this be performed at the bedside?->YesFINAL REPORT Chest one view compared to June 04 Discussion: Support tubes, right IJ line, left chest pacemaker in place. Mild pulmonary congestion and probable left base atelectasis. No gross effusion or pneumothorax. IMPRESSIONS: No change. ET tube tip probably 1.3 cm from thecarina. Signed: Jerel Nogueraeport Verified Date/Time: 06/05/2017 07:34:54 Reading Location: [facility] Reading Room POCT-GLUCOSE [id number] 06:35:00 Test Item Value Reference Range Comments POC-GLUCOSE METER (BEAKER) 209 mg/dL 70-110 TESTED AT [facility] [address] [facility] (test gndn=0715) [facility] [address] BLOOD [id number] 06:00:00 Test Item Value Reference Range Comments CULTURE (BEAKER) (test ucin=1595) No growth in 5 days BLOOD [id number] 06:00:00 Test Item Value Reference Range Comments CULTURE (BEAKER) (test uahv=4544) No growth in 5 days CREATINE KINASE (CK), TOTAL AND [id number] 05:23:00 Test Item Value Reference Range Comments CREATINE KINASE TOTAL (BEAKER) (test ddwt=045) 52 U/L 29-200 CREATINE KINASE-MB (BEAKER) (test tjvf=157) 0.4 ng/mL 0.0-6.6 CREATINE KINASE-MB INDEX (BEAKER) (test ynix=123) 0.8 % CK-MB Reference Range:<6.7 Normal6.7-10.0 Borderline>10.0 [id number] 05:16:00 Test Item Value Reference Range Comments PHOSPHORUS (BEAKER) (test fzdl=007) 2.9 mg/dL 2.3-4.7 [id number] 05:16:00 Test Item Value Reference Range Comments MAGNESIUM (BEAKER) (test ljpc=369) 1.4 mg/dL 1.6-2.6 BASIC METABOLIC [id number] 05:16:00 Test Item Value Reference Range Comments SODIUM (BEAKER) (test 145 meq/L 136-145 xwfl=082) POTASSIUM (BEAKER) (test 3.8 meq/L 3.5-5.1 mmym=560) CHLORIDE (BEAKER) (test 115 meq/L 98-107 xcbx=703) CO2 (BEAKER) (test 21 meq/L 22-29 xmhf=248) BLOOD UREA NITROGEN 33 mg/dL 7-21 (BEAKER) (test wfhl=912) CREATININE (BEAKER) (test 0.82 mg/dL 0.57-1.25 ibtb=497) GLUCOSE RANDOM (BEAKER) 177 mg/dL 70-105 (test awwy=445) CALCIUM (BEAKER) (test 8.2 mg/dL 8.4-10.2 gera=308) EGFR (BEAKER) (test 90 mL/min/1.73 sq m ESTIMATED GFR IS NOT akho=1750) ACCURATE CREATININE CLEARANCE IN PREDICTING GLOMERULAR FILTRATION RATE. ESTIMATED GFR IS NOT APPLICABLE FOR DIALYSIS PATIENTS. CBC W/PLT COUNT & AUTO [id number] 05:08:00 Test Item Value Reference Range Comments WHITE BLOOD CELL COUNT (BEAKER) (test hrid=284) 12.1 K/ L 3.5-10.5 RED BLOOD CELL COUNT (BEAKER) (test itmj=579) 2.66 M/ L 4.63-6.08 HEMOGLOBIN (BEAKER) (test nhsv=997) 8.1 GM/DL 13.7-17.5 HEMATOCRIT (BEAKER) (test volj=080) 26.5 % 40.1-51.0 MEAN CORPUSCULAR VOLUME (BEAKER) (test magm=402) 99.6 fL 79.0-92.2 MEAN CORPUSCULAR HEMOGLOBIN (BEAKER) (test 30.5 pg 25.7-32.2 ldii=727) MEAN CORPUSCULAR HEMOGLOBIN CONC (BEAKER) (test 30.6 GM/DL 32.3-36.5 qvdm=193) RED CELL DISTRIBUTION WIDTH (BEAKER) (test 19.0 % 11.6-14.4 pgyn=318) PLATELET COUNT (BEAKER) (test pnas=367) 142 K/CU MM 150-450 MEAN PLATELET VOLUME (BEAKER) (test qqed=067) 10.6 fL 9.4-12.4 NUCLEATED RED BLOOD CELLS (BEAKER) (test 0 /100 WBC 0-0 qpkr=928) NEUTROPHILS RELATIVE PERCENT (BEAKER) (test 71 % pqsu=624) LYMPHOCYTES RELATIVE PERCENT (BEAKER) (test 17 % rqdm=767) MONOCYTES RELATIVE PERCENT (BEAKER) (test 9 % kqkj=698) EOSINOPHILS RELATIVE PERCENT (BEAKER) (test 3 % nsbb=546) BASOPHILS RELATIVE PERCENT (BEAKER) (test 0 % pirg=963) NEUTROPHILS ABSOLUTE COUNT (BEAKER) (test 8.57 K/ L 1.78-5.38 mtcc=937) LYMPHOCYTES ABSOLUTE COUNT (BEAKER) (test 2.01 K/ L 1.32-3.57 jubj=454) MONOCYTES ABSOLUTE COUNT (BEAKER) (test 1.06 K/ L 0.30-0.82 doua=762) EOSINOPHILS ABSOLUTE COUNT (BEAKER) (test 0.35 K/ L 0.04-0.54 frud=959) BASOPHILS ABSOLUTE COUNT (BEAKER) (test 0.03 K/ L 0.01-0.08 hduw=084) IMMATURE GRANULOCYTES-RELATIVE PERCENT (BEAKER) 1 % 0-1 (test tvur=6800) LACTIC ACID, VENOUS, WHOLE [id number] 05:07:00 Test Item Value Reference Range Comments LACTATE BLOOD VENOUS (2) (BEAKER) (test 1.1 mmol/L 0.5-2.2 aemp=0800) Effective 06/10/2015: Units/Reference Range ChangeNew: 0.5-2.2 mmol/L Previous: 5 -20 mg/dLPOCT-GLUCOSE [id number] 00:49:00 Test Item Value Reference Range Comments POC-GLUCOSE METER (BEAKER) 205 mg/dL 70-110 TESTED AT [address] (test hpga=1682) [facility] [address] POCT-GLUCOSE [id number] 17:29:00 Test Item Value Reference Range Comments POC-GLUCOSE METER (BEAKER) 211 mg/dL 70-110 TESTED AT [address] (test vyvc=0065) [facility] [address] CREATINE KINASE (CK), TOTAL AND [id number] 16:23:00 Test Item Value Reference Range Comments CREATINE KINASE TOTAL (BEAKER) (test lhci=606) 89 U/L 29-200 CREATINE KINASE-MB (BEAKER) (test gxhl=131) 0.8 ng/mL 0.0-6.6 CREATINE KINASE-MB INDEX (BEAKER) (test gcnp=507) 0.9 % CK-MB Reference Range:<6.7 Normal6.7-10.0 Borderline>10.0 AbnormalBASIC METABOLIC [id number] 16:17:00 Test Item Value Reference Range Comments SODIUM (BEAKER) (test 146 meq/L 136-145 sajv=037) POTASSIUM (BEAKER) (test 3.7 meq/L 3.5-5.1 qdiv=147) CHLORIDE (BEAKER) (test 116 meq/L 98-107 qlcn=440) CO2 (BEAKER) (test 23 meq/L 22-29 islv=094) BLOOD UREA NITROGEN 33 mg/dL 7-21 (BEAKER) (test ucop=179) CREATININE (BEAKER) (test 0.80 mg/dL 0.57-1.25 uory=246) GLUCOSE RANDOM (BEAKER) 170 mg/dL 70-105 (test ioay=435) CALCIUM (BEAKER) (test 8.4 mg/dL 8.4-10.2 ofzz=790) EGFR (BEAKER) (test 93 mL/min/1.73 sq m ESTIMATED GFR IS NOT hlem=6137) ACCURATE CREATININE CLEARANCE IN PREDICTING GLOMERULAR FILTRATION RATE. ESTIMATED GFR IS NOT APPLICABLE FOR DIALYSIS PATIENTS. CT, BRAIN, WITHOUT [id number] 15:33:00FINAL REPORT CT Head without contrast CLINICAL HISTORY: [...] sinuses with support tubing in place. IMPRESSION: NoCT evidence of acute infarct, hemorrhage, or hydrocephalus. Signed: Lisa Hardy MDReport Verified Date/Time: 06/04/2017 15:33:02 Reading Location: [facility] C013V Neuro Reading Room Electronicallysigned by: LISA HARDY M.D. on 06/04/2017 03:33 PMPOCT-GLUCOSE [id number] 13:13:00 Test Item Value Reference Range Comments POC-GLUCOSE METER (BEAKER) 271 mg/dL 70-110 TESTED AT [facility] [address] (test ozyy=9512) [facility] [address] SPUTUM CULTURE + GRAM [id number] 11:40:00 Test Item Value Reference Range Comments CULTURE (BEAKER) (test METHICILLIN RESISTANT 1+ Methicillin ivvo=2793) STAPHYLOCOCCUS AUREUS resistant Staphylococcus aureus Clindamycin (test code=10) Erythromycin (test code=4) Linezolid (test code=40) Nitrofurantoin (test code=23) Oxacillin (test code=14) Rifampin (test code=43) Tetracycline (test code=2) Trimethoprim + Sulfamethoxazole (test code=47) Vancomycin (test code=13) GRAM STAIN RESULT 1+ WBCs (BEAKER) (test uhyv=6955) GRAM STAIN RESULT 0-5 epithelial cells (BEAKER) (test mvvg=781616) GRAM STAIN RESULT No organisms seen (BEAKER) (test ruuh=937147) 1+ Normal respiratory melanie presentCREATINE KINASE (CK), TOTAL AND [id number] 09:49:00 Test Item Value Reference Range Comments CREATINE KINASE TOTAL (BEAKER) (test zwht=346) 61 U/L 29-200 CREATINE KINASE-MB (BEAKER) (test qgbf=534) 0.7 ng/mL 0.0-6.6 CREATINE KINASE-MB INDEX (BEAKER) (test lxgi=766) 1.1 % CK-MB Reference Range:<6.7 Normal6.7-10.0 Borderline>10.0 AbnormalBASIC METABOLIC [id number] 09:43:00 Test Item Value Reference Range Comments SODIUM (BEAKER) (test 146 meq/L 136-145 onlm=880) POTASSIUM (BEAKER) (test 3.9 meq/L 3.5-5.1 algs=380) CHLORIDE (BEAKER) (test 117 meq/L 98-107 uhwf=279) CO2 (BEAKER) (test 22 meq/L 22-29 pkxp=892) BLOOD UREA NITROGEN 33 mg/dL 7-21 (BEAKER) (test dtzb=727) CREATININE (BEAKER) (test 0.79 mg/dL 0.57-1.25 cvmd=851) GLUCOSE RANDOM (BEAKER) 169 mg/dL 70-105 (test batj=798) CALCIUM (BEAKER) (test 8.6 mg/dL 8.4-10.2 jnao=129) EGFR (BEAKER) (test 94 mL/min/1.73 sq m ESTIMATED GFR IS NOT pxtk=4351) ACCURATE CREATININE CLEARANCE IN PREDICTING GLOMERULAR FILTRATION RATE. ESTIMATED GFR IS NOT APPLICABLE FOR DIALYSIS PATIENTS. LACTIC ACID, VENOUS, WHOLE [id number] 09:38:00 Test Item Value Reference Range Comments LACTATE BLOOD VENOUS (2) (BEAKER) (test 0.8 mmol/L 0.5-2.2 igng=8228) Effective 06/10/2015: Units/Reference Range ChangeNew: 0.5-2.2 mmol/L Previous: 5 -20 mg/dLPOCT-GLUCOSE [id number] 06:06:00 Test Item Value Reference Range Comments POC-GLUCOSE METER (BEAKER) 133 mg/dL 70-110 TESTED AT [facility] [address] [place] [address] (test qovy=5862) [facility] [address] BLOOD GAS, [id number] 05:21:00 Test Item Value Reference Range Comments PH ARTERIAL (BEAKER) (test fusj=980) 7.44 7.35-7.45 PCO2 ARTERIAL (BEAKER) (test syvp=172) 33 mmHg 35-45 PO2 ARTERIAL (BEAKER) (test cdkz=249) 190 mmHg 80-90 O2 SATURATION ARTERIAL (BEAKER) (test qwgg=453) 99.4 % 96.0-97.0 HCO3 ARTERIAL (BEAKER) (test zydn=380) 22 mmol/L -29 BASE EXCESS ARTERIAL (BEAKER) (test sqcn=768) -1.8 mmol/L -2.0-3.0 PATIENT TEMPERATURE (BEAKER) (test dqwz=1100) 37.5 C FIO2 (BEAKER) (test pnaw=2035) 50.0 % [id number] 05:12:00 Test Item Value Reference Range Comments PHOSPHORUS (BEAKER) (test hcut=473) 2.9 mg/dL 2.3-4.7 [id number] 05:12:00 Test Item Value Reference Range Comments MAGNESIUM (BEAKER) (test hcid=913) 1.8 mg/dL 1.6-2.6 CBC W/PLT COUNT & AUTO [id number] 04:33:00 Test Item Value Reference Range Comments WHITE BLOOD CELL COUNT (BEAKER) (test ppzl=070) 11.3 K/ L 3.5-10.5 RED BLOOD CELL COUNT (BEAKER) (test dsig=760) 2.75 M/ L 4.63-6.08 HEMOGLOBIN (BEAKER) (test mnbd=055) 8.3 GM/DL 13.7-17.5 HEMATOCRIT (BEAKER) (test rxdb=292) 27.6 % 40.1-51.0 MEAN CORPUSCULAR VOLUME (BEAKER) (test fkvg=838) 100.4 fL 79.0-92.2 MEAN CORPUSCULAR HEMOGLOBIN (BEAKER) (test 30.2 pg 25.7-32.2 mgjm=711) MEAN CORPUSCULAR HEMOGLOBIN CONC (BEAKER) (test 30.1 GM/DL 32.3-36.5 xtwg=866) RED CELL DISTRIBUTION WIDTH (BEAKER) (test 19.9 % 11.6-14.4 fpmy=446) PLATELET COUNT (BEAKER) (test uwvh=523) 148 K/CU MM 150-450 MEAN PLATELET VOLUME (BEAKER) (test bcof=599) 10.3 fL 9.4-12.4 NUCLEATED RED BLOOD CELLS (BEAKER) (test 0 /100 WBC 0-0 xwkt=831) NEUTROPHILS RELATIVE PERCENT (BEAKER) (test 71 % gbsv=096) LYMPHOCYTES RELATIVE PERCENT (BEAKER) (test 17 % mxjo=146) MONOCYTES RELATIVE PERCENT (BEAKER) (test 8 % solg=911) EOSINOPHILS RELATIVE PERCENT (BEAKER) (test 3 % sfvv=791) BASOPHILS RELATIVE PERCENT (BEAKER) (test 0 % shpe=737) NEUTROPHILS ABSOLUTE COUNT (BEAKER) (test 7.99 K/ L 1.78-5.38 bjiw=922) LYMPHOCYTES ABSOLUTE COUNT (BEAKER) (test 1.95 K/ L 1.32-3.57 snhc=746) MONOCYTES ABSOLUTE COUNT (BEAKER) (test 0.88 K/ L 0.30-0.82 kiaf=572) EOSINOPHILS ABSOLUTE COUNT (BEAKER) (test 0.35 K/ L 0.04-0.54 iatk=219) BASOPHILS ABSOLUTE COUNT (BEAKER) (test 0.02 K/ L 0.01-0.08 cmbw=946) IMMATURE GRANULOCYTES-RELATIVE PERCENT (BEAKER) 1 % 0-1 (test urar=1696) RAD, CHEST, 1 VIEW, NON [id number] 04:20:00Reason for exam:-> ventedShould this be performed at the bedside?->YesFINAL REPORT EXAMINATION: AP PORTABLE CHEST RADIOGRAPH CLINICAL INDICATION: Ventilator dependent IMPRESSION: Compared with June 03, 2017 The tip of the new feeding tube extends below the diaphragm and inferior margin of today's study. The support tube and catheter positions areotherwise unchanged. The heart is mildly enlarged but stable. Opacities persist in the perihilar regions and lung bases, left greater than right. A component of atelectasis is favored. Superimposed pulmonary edema or pneumonia cannot be excluded. Blunting of left costophrenic sulcus is similar to the prior study. No evidence of a pneumothorax. Signed: Raoul Patel MDReport Verified Date/Time: 06/04/2017 04: 20:06 Reading Location: [address] Reading Room CREATINE KINASE (CK), TOTAL AND [id number] 00:29:00 Test Item Value Reference Range Comments CREATINE KINASE TOTAL (BEAKER) (test rxhv=043) 43 U/L 29-200 CREATINE KINASE-MB (BEAKER) (test fkyu=333) 0.6 ng/mL 0.0-6.6 CREATINE KINASE-MB INDEX (BEAKER) (test otmz=422) 1.4 % CK-MB Reference Range:<6.7 Normal6.7-10.0 Borderline>10.0 AbnormalBASIC METABOLIC [id number] 00:23:00 Test Item Value Reference Range Comments SODIUM (BEAKER) (test 147 meq/L 136-145 dmot=704) POTASSIUM (BEAKER) (test 3.8 meq/L 3.5-5.1 nsgi=712) CHLORIDE (BEAKER) (test 119 meq/L 98-107 crma=854) CO2 (BEAKER) (test 19 meq/L 22-29 wfxy=289) BLOOD UREA NITROGEN 36 mg/dL 7-21 (BEAKER) (test kmzp=753) CREATININE (BEAKER) (test 0.79 mg/dL 0.57-1.25 cogu=471) GLUCOSE RANDOM (BEAKER) 110 mg/dL 70-105 (test ketw=774) CALCIUM (BEAKER) (test 8.3 mg/dL 8.4-10.2 dmah=716) EGFR (BEAKER) (test 94 mL/min/1.73 sq m ESTIMATED GFR IS NOT rwdg=0422) ACCURATE CREATININE CLEARANCE IN PREDICTING GLOMERULAR FILTRATION RATE. ESTIMATED GFR IS NOT APPLICABLE FOR DIALYSIS PATIENTS. POCT-GLUCOSE [id number] 00:06:00 Test Item Value Reference Range Comments POC-GLUCOSE METER (BEAKER) 116 mg/dL 70-110 TESTED AT [facility] [address] [facility] (test qnjk=7262) [facility] [address] HEMOGLOBIN AND [id number] 00:01:00 Test Item Value Reference Range Comments HEMOGLOBIN (BEAKER) (test dnib=812) 7.8 GM/DL 13.7-17.5 HEMATOCRIT (BEAKER) (test qori=425) 25.1 % 40.1-51.0 RAD, ABDOMEN/KUB, 1 VIEW [id number] 23:47:00Reason for exam:->s/p corpak placementFINAL REPORT EXAMINATION: SUPINE ABDOMEN CLINICAL INDICATION: FEEDING TUBE PLACEMENT IMPRESSION: Compared with May. Tip of the feeding tube projects over the right upper abdomen in the region of the gastroduodenal junction. Tip of the nasogastric tube projects over the left upper abdomen in the region of the body the stomach. The bowel gas pattern is nonspecific. Signed: Raoul Patel MDReport Verified Date/Time: 06/03/2017 23:47:47 Reading Location: [address] Reading Room BLOOD GAS, [id number] 19:32:00 Test Item Value Reference Range Comments PH ARTERIAL (BEAKER) (test epor=895) 7.43 7.35-7.45 PCO2 ARTERIAL (BEAKER) (test mzqb=387) 36 mmHg 35-45 PO2 ARTERIAL (BEAKER) (test ratr=977) 165 mmHg 80-90 O2 SATURATION ARTERIAL (BEAKER) (test rzbg=366) 99.1 % 96.0-97.0 HCO3 ARTERIAL (BEAKER) (test bgfb=638) 23 mmol/L 21-29 BASE EXCESS ARTERIAL (BEAKER) (test bajr=302) -1.0 mmol/L -2.0-3.0 PATIENT TEMPERATURE (BEAKER) (test njde=0589) 37.5 C FIO2 (BEAKER) (test tplr=7513) 60.0 % RAD, CHEST, 1 VIEW, NON [id number] 17:52:00Reason for exam:-> intubationShould this be performed at the bedside?->YesFINAL REPORT EXAMINATION: AP PORTABLE CHEST RADIOGRAPH CLINICAL INDICATION: Intubation IMPRESSION: Compared with 06/03/2017, 0436 hours The tip of the endotracheal tube projects over the midline approximately 4 cm superior to the dick. The tip of the nasogastric tube projects over the left upper abdomen in the region of the stomach. The tip of the right jugular central line projects over the superior vena cava. Left subclavian cardiac pacing device and midline sternotomy again noted. Opacities persist in both lungs, most conspicuous in the perihilar regions and lung bases. Atelectasis favored. Mild superimposed pulmonary edema or an underlying left lower lobe pneumonia aredifficult to exclude. The heart is enlarged but stable. Stable blunting of the costophrenic sulci isalso again noted. No definite evidence of new lung consolidation or pneumothorax. Signed: Raoul Patel MDReport Verified Date/Time: 06/03/2017 17: 52:43 Reading Location: [address] Reading Room POCT- GLUCOSE [id number] 17:46:00 Test Item Value Reference Range Comments POC-GLUCOSE METER (BEAKER) 134 mg/dL 70-110 TESTED AT [facility] [address] [facility] (test lqiz=0086) [facility] [address] CREATINE KINASE (CK), TOTAL AND [id number] 15:27:00 Test Item Value Reference Range Comments CREATINE KINASE TOTAL (BEAKER) (test utwu=188) 67 U/L 29-200 CREATINE KINASE-MB (BEAKER) (test lksn=179) 0.7 ng/mL 0.0-6.6 CREATINE KINASE-MB INDEX (BEAKER) (test nxhz=820) 1.0 % CK-MB Reference Range:<6.7 Normal6.7-10.0 Borderline>10.0 AbnormalBASIC METABOLIC [id number] 15:20:00 Test Item Value Reference Range Comments SODIUM (BEAKER) (test 148 meq/L 136-145 jezn=422) POTASSIUM (BEAKER) (test 3.6 meq/L 3.5-5.1 epyh=875) CHLORIDE (BEAKER) (test 119 meq/L 98-107 hmyc=841) CO2 (BEAKER) (test 20 meq/L 22-29 wdek=318) BLOOD UREA NITROGEN 41 mg/dL 7-21 (BEAKER) (test gmxd=315) CREATININE (BEAKER) (test 0.82 mg/dL 0.57-1.25 vfpf=899) GLUCOSE RANDOM (BEAKER) 180 mg/dL 70-105 (test wfzo=545) CALCIUM (BEAKER) (test 8.6 mg/dL 8.4-10.2 dyls=357) EGFR (BEAKER) (test 90 mL/min/1.73 sq m ESTIMATED GFR IS NOT iopa=5983) ACCURATE CREATININE CLEARANCE IN PREDICTING GLOMERULAR FILTRATION RATE. ESTIMATED GFR IS NOT APPLICABLE FOR DIALYSIS PATIENTS. HEPATITIS A [id number] 15:03:00 Test Item Value Reference Range Comments HEPATITIS A IGM ANTIBODY (BEAKER) (test Nonreactive Nonreactive mpgk=000) HEPATITIS A IGG ANTIBODY (BEAKER) (test Reactive Nonreactive nllw=0567) HEMOGLOBIN AND [id number] 15:02:00 Test Item Value Reference Range Comments HEMOGLOBIN (BEAKER) (test afdp=201) 8.9 GM/DL 13.7-17.5 HEMATOCRIT (BEAKER) (test bfxe=286) 29.0 % 40.1-51.0 BLOOD GAS, [id number] 15:01:00 Test Item Value Reference Range Comments PH VENOUS (BEAKER) (test molc=021) 7.43 7.32-7.42 PCO2 VENOUS (BEAKER) (test etts=163) 35 mmHg 41-51 PO2 VENOUS (BEAKER) (test ecfp=758) 35 mmHg 25-40 O2 SATURATION VENOUS (BEAKER) (test fxds=442) 71.0 % 40.0-70.0 HCO3 VENOUS (BEAKER) (test qpfc=918) 23 mmol/L 21-29 BASE EXCESS VENOUS (BEAKER) (test zboa=138) -1.4 mmol/L -2.0-3.0 PATIENT TEMPERATURE (BEAKER) (test jiwa=0948) 36.4 C FIO2 (BEAKER) (test cyen=1460) 32.0 % HEPATITIS C [id number] 14:58:00 Test Item Value Reference Range Comments HEPATITIS C ANTIBODY (BEAKER) (test dike=623) Nonreactive Nonreactive HEPATITIS B [id number] 14:58:00 Test Item Value Reference Range Comments HEPATITIS B CORE TOTAL ANTIBODY (BEAKER) (test Nonreactive Nonreactive qlft=067) HEPATITIS B SURFACE ANTIBODY (BEAKER) (test 22.2 mIU/mL <8.0 qxbx=373) HEPATITIS B SURFACE ANTIGEN (2) (BEAKER) (test Nonreactive Nonreactive qfrs=6703) POCT-GLUCOSE [id number] 11:57:00 Test Item Value Reference Range Comments POC-GLUCOSE METER (BEAKER) 228 mg/dL 70-110 TESTED AT [facility] [address] [place] [address] (test kpkv=8969) [facility] [address] BLOOD GAS, [id number] 11:12:00 Test Item Value Reference Range Comments PH ARTERIAL (BEAKER) (test hzqx=886) 7.47 7.35-7.45 PCO2 ARTERIAL (BEAKER) (test mcmk=792) 28 mmHg 35-45 PO2 ARTERIAL (BEAKER) (test olfr=113) 278 mmHg 80-90 O2 SATURATION ARTERIAL (BEAKER) (test qlwb=396) 99.7 % 96.0-97.0 HCO3 ARTERIAL (BEAKER) (test esms=388) 19 mmol/L 21-29 BASE EXCESS ARTERIAL (BEAKER) (test nfmc=984) -3.5 mmol/L -2.0-3.0 PATIENT TEMPERATURE (BEAKER) (test ugrk=5258) 37.0 C FIO2 (BEAKER) (test qlta=7267) 40.0 % HEMOGLOBIN [id number] 10:39:00 Test Item Value Reference Range Comments HEMOGLOBIN A1C (BEAKER) (test qhfp=942) 5.5 % 4.3-6.1 CREATINE KINASE (CK), TOTAL AND [id number] 08:26:00 Test Item Value Reference Range Comments CREATINE KINASE TOTAL (BEAKER) (test bpti=559) 72 U/L 29-200 CREATINE KINASE-MB (BEAKER) (test jfrg=184) 0.9 ng/mL 0.0-6.6 CREATINE KINASE-MB INDEX (BEAKER) (test qnci=539) 1.3 % CK-MB Reference Range:<6.7 Normal6.7-10.0 Borderline>10.0 AbnormalBASIC METABOLIC [id number] 08:20:00 Test Item Value Reference Range Comments SODIUM (BEAKER) (test 145 meq/L 136-145 nfnh=466) POTASSIUM (BEAKER) (test 4.0 meq/L 3.5-5.1 sfns=602) CHLORIDE (BEAKER) (test 119 meq/L 98-107 dqwh=664) CO2 (BEAKER) (test 20 meq/L 22-29 ptaw=221) BLOOD UREA NITROGEN 48 mg/dL 7-21 (BEAKER) (test lesz=400) CREATININE (BEAKER) (test 0.93 mg/dL 0.57-1.25 zkjk=033) GLUCOSE RANDOM (BEAKER) 280 mg/dL 70-105 (test gkwq=108) CALCIUM (BEAKER) (test 8.3 mg/dL 8.4-10.2 vuxw=409) EGFR (BEAKER) (test 78 mL/min/1.73 sq m ESTIMATED GFR IS NOT uzik=8806) ACCURATE CREATININE CLEARANCE IN PREDICTING GLOMERULAR FILTRATION RATE. ESTIMATED GFR IS NOT APPLICABLE FOR DIALYSIS PATIENTS. RAD, CHEST, 1 VIEW, NON [id number] 08:05:00Reason for exam:-> ventedShould this be performed at the bedside?->YesFINAL REPORT Chest, one view. HISTORY: Vented COMPARISON: 06/02/2017 IMPRESSION: Supporting hardware unchanged in position. Mild interstitial edema. Unchanged enlargement of the cardiomediastinal silhouette. Trace left pleural effusion. No identifiable pneumothorax. Signed: Venu Holman MDReport Verified Date/Time: 06/03/2017 08:05:13 Reading Location: [facility] B1 C013Y CT Body Reading Room HEMOGLOBIN AND [id number] 07:52:00 Test Item Value Reference Range Comments HEMOGLOBIN (BEAKER) (test nmxh=356) 8.7 GM/DL 13.7-17.5 HEMATOCRIT (BEAKER) (test mgpd=208) 27.6 % 40.1-51.0 POCT-GLUCOSE [id number] 06:48:00 Test Item Value Reference Range Comments POC-GLUCOSE METER (BEAKER) 281 mg/dL 70-110 TESTED AT [facility] [address] [facility] (test cpkx=0647) [facility] [address] BLOOD GAS, [id number] 05:52:00 Test Item Value Reference Range Comments PH ARTERIAL (BEAKER) (test qoun=626) 7.43 7.35-7.45 PCO2 ARTERIAL (BEAKER) (test dvmv=692) 32 mmHg 35-45 PO2 ARTERIAL (BEAKER) (test jvwi=380) 154 mmHg 80-90 O2 SATURATION ARTERIAL (BEAKER) (test iitb=129) 99.1 % 96.0-97.0 HCO3 ARTERIAL (BEAKER) (test tqoa=894) 21 mmol/L 21-29 BASE EXCESS ARTERIAL (BEAKER) (test iafp=714) -2.9 mmol/L -2.0-3.0 PATIENT TEMPERATURE (BEAKER) (test xdad=2263) 37.0 C FIO2 (BEAKER) (test gclv=7723) 40.0 % BASIC METABOLIC [id number] 05:47:00 Test Item Value Reference Range Comments SODIUM (BEAKER) (test 147 meq/L 136-145 jwob=858) POTASSIUM (BEAKER) (test 4.4 meq/L 3.5-5.1 anfz=847) CHLORIDE (BEAKER) (test 122 meq/L 98-107 fxqe=902) CO2 (BEAKER) (test 17 meq/L 22-29 dymo=105) BLOOD UREA NITROGEN 50 mg/dL 7-21 (BEAKER) (test ppoo=959) CREATININE (BEAKER) (test 0.88 mg/dL 0.57-1.25 dxdb=497) GLUCOSE RANDOM (BEAKER) 259 mg/dL 70-105 (test sbqm=150) CALCIUM (BEAKER) (test 8.3 mg/dL 8.4-10.2 gonu=470) EGFR (BEAKER) (test 83 mL/min/1.73 sq m ESTIMATED GFR IS NOT zpzn=3525) ACCURATE CREATININE CLEARANCE IN PREDICTING GLOMERULAR FILTRATION RATE. ESTIMATED GFR IS NOT APPLICABLE FOR DIALYSIS PATIENTS. CBC W/PLT COUNT & AUTO [id number] 05:40:00 Test Item Value Reference Range Comments WHITE BLOOD CELL COUNT (BEAKER) (test qtsg=011) 10.1 K/ L 3.5-10.5 RED BLOOD CELL COUNT (BEAKER) (test abtr=932) 2.76 M/ L 4.63-6.08 HEMOGLOBIN (BEAKER) (test gory=803) 8.5 GM/DL 13.7-17.5 HEMATOCRIT (BEAKER) (test pqfe=129) 27.0 % 40.1-51.0 MEAN CORPUSCULAR VOLUME (BEAKER) (test vcqt=334) 97.8 fL 79.0-92.2 MEAN CORPUSCULAR HEMOGLOBIN (BEAKER) (test 30.8 pg 25.7-32.2 qeme=267) MEAN CORPUSCULAR HEMOGLOBIN CONC (BEAKER) (test 31.5 GM/DL 32.3-36.5 vwnv=950) RED CELL DISTRIBUTION WIDTH (BEAKER) (test 20.3 % 11.6-14.4 bzwl=948) PLATELET COUNT (BEAKER) (test gbuk=532) 145 K/CU MM 150-450 MEAN PLATELET VOLUME (BEAKER) (test ydfu=503) 10.8 fL 9.4-12.4 NUCLEATED RED BLOOD CELLS (BEAKER) (test 1 /100 WBC 0-0 ajyc=407) NEUTROPHILS RELATIVE PERCENT (BEAKER) (test 72 % brro=068) LYMPHOCYTES RELATIVE PERCENT (BEAKER) (test 15 % zivr=085) MONOCYTES RELATIVE PERCENT (BEAKER) (test 9 % vygu=900) EOSINOPHILS RELATIVE PERCENT (BEAKER) (test 3 % alhd=153) BASOPHILS RELATIVE PERCENT (BEAKER) (test 0 % redy=403) NEUTROPHILS ABSOLUTE COUNT (BEAKER) (test 7.23 K/ L 1.78-5.38 qumu=724) LYMPHOCYTES ABSOLUTE COUNT (BEAKER) (test 1.55 K/ L 1.32-3.57 zrmd=492) MONOCYTES ABSOLUTE COUNT (BEAKER) (test 0.92 K/ L 0.30-0.82 pydo=020) EOSINOPHILS ABSOLUTE COUNT (BEAKER) (test 0.29 K/ L 0.04-0.54 lgbo=202) BASOPHILS ABSOLUTE COUNT (BEAKER) (test 0.02 K/ L 0.01-0.08 oacb=593) IMMATURE GRANULOCYTES-RELATIVE PERCENT (BEAKER) 1 % 0-1 (test sngi=3903) [id number] 05:37:00 Test Item Value Reference Range Comments PHOSPHORUS (BEAKER) (test kskd=514) 2.5 mg/dL 2.3-4.7 [id number] 05:37:00 Test Item Value Reference Range Comments MAGNESIUM (BEAKER) (test ffko=247) 1.8 mg/dL 1.6-2.6 BASIC METABOLIC [id number] 00:57:00 Test Item Value Reference Range Comments SODIUM (BEAKER) (test 146 meq/L 136-145 uipp=358) POTASSIUM (BEAKER) (test 4.3 meq/L 3.5-5.1 axui=199) CHLORIDE (BEAKER) (test 121 meq/L 98-107 zirm=541) CO2 (BEAKER) (test 21 meq/L 22-29 vcxx=692) BLOOD UREA NITROGEN 52 mg/dL 7-21 (BEAKER) (test ztax=326) CREATININE (BEAKER) (test 0.90 mg/dL 0.57-1.25 ohjo=852) GLUCOSE RANDOM (BEAKER) 265 mg/dL 70-105 (test qqya=451) CALCIUM (BEAKER) (test 8.2 mg/dL 8.4-10.2 zrfc=020) EGFR (BEAKER) (test 81 mL/min/1.73 sq m ESTIMATED GFR IS NOT qawr=3202) ACCURATE CREATININE CLEARANCE IN PREDICTING GLOMERULAR FILTRATION RATE. ESTIMATED GFR IS NOT APPLICABLE FOR DIALYSIS PATIENTS. CREATINE KINASE (CK), TOTAL AND [id number] 00:55:00 Test Item Value Reference Range Comments CREATINE KINASE TOTAL (BEAKER) (test ysbs=583) 61 U/L 29-200 CREATINE KINASE-MB (BEAKER) (test abwn=080) 0.8 ng/mL 0.0-6.6 CREATINE KINASE-MB INDEX (BEAKER) (test xhtb=851) 1.3 % CK-MB Reference Range:<6.7 Normal6.7-10.0 Borderline>10.0 AbnormalHEMOGLOBIN AND [id number] 00:39:00 Test Item Value Reference Range Comments HEMOGLOBIN (BEAKER) (test pueu=211) 8.2 GM/DL 13.7-17.5 HEMATOCRIT (BEAKER) (test zkpr=935) 25.8 % 40.1-51.0 POCT-GLUCOSE [id number] 00:38:00 Test Item Value Reference Range Comments POC-GLUCOSE METER (BEAKER) 289 mg/dL 70-110 TESTED AT [address] (test lhas=3017) [place] [id number] BASIC METABOLIC [id number] 19:04:00 Test Item Value Reference Range Comments SODIUM (BEAKER) (test 148 meq/L 136-145 qrtj=049) POTASSIUM (BEAKER) (test 3.7 meq/L 3.5-5.1 ujqc=907) CHLORIDE (BEAKER) (test 120 meq/L 98-107 pxrt=204) CO2 (BEAKER) (test 19 meq/L 22-29 qutj=952) BLOOD UREA NITROGEN 54 mg/dL 7-21 (BEAKER) (test dqqp=216) CREATININE (BEAKER) (test 0.93 mg/dL 0.57-1.25 jkob=538) GLUCOSE RANDOM (BEAKER) 203 mg/dL 70-105 (test njpw=662) CALCIUM (BEAKER) (test 8.5 mg/dL 8.4-10.2 iwot=579) EGFR (BEAKER) (test 78 mL/min/1.73 sq m ESTIMATED GFR IS NOT txqp=4461) ACCURATE CREATININE CLEARANCE IN PREDICTING GLOMERULAR FILTRATION RATE. ESTIMATED GFR IS NOT APPLICABLE FOR DIALYSIS PATIENTS. POCT-GLUCOSE [id number] 17:54:00 Test Item Value Reference Range Comments POC-GLUCOSE METER (BEAKER) 185 mg/dL 70-110 TESTED AT [address] (test tnxd=4106) [place] [id number] POCT-GLUCOSE [id number] 17:06:00 Test Item Value Reference Range Comments POC-GLUCOSE METER (BEAKER) 171 mg/dL 70-110 TESTED AT [address] (test sxis=7307) [facility] [address] CREATINE KINASE (CK), TOTAL AND [id number] 16:32:00 Test Item Value Reference Range Comments CREATINE KINASE TOTAL (BEAKER) (test swpv=467) 77 U/L 29-200 CREATINE KINASE-MB (BEAKER) (test zncc=391) 0.7 ng/mL 0.0-6.6 CREATINE KINASE-MB INDEX (BEAKER) (test wswq=172) 0.9 % CK-MB Reference Range:<6.7 Normal6.7-10.0 Borderline>10.0 AbnormalBASIC METABOLIC [id number] 16:28:00 Test Item Value Reference Range Comments SODIUM (BEAKER) (test 149 meq/L 136-145 enby=150) POTASSIUM (BEAKER) (test 3.4 meq/L 3.5-5.1 szxs=651) CHLORIDE (BEAKER) (test 121 meq/L 98-107 euhb=702) CO2 (BEAKER) (test 19 meq/L 22-29 qqii=398) BLOOD UREA NITROGEN 58 mg/dL 7-21 (BEAKER) (test gyhx=794) CREATININE (BEAKER) (test 0.94 mg/dL 0.57-1.25 fcje=166) GLUCOSE RANDOM (BEAKER) 173 mg/dL 70-105 (test jxnm=514) CALCIUM (BEAKER) (test 8.4 mg/dL 8.4-10.2 rwxu=255) EGFR (BEAKER) (test 77 mL/min/1.73 sq m ESTIMATED GFR IS NOT zdzx=2144) ACCURATE CREATININE CLEARANCE IN PREDICTING GLOMERULAR FILTRATION RATE. ESTIMATED GFR IS NOT APPLICABLE FOR DIALYSIS PATIENTS. POCT-GLUCOSE [id number] 16:24:00 Test Item Value Reference Range Comments POC-GLUCOSE METER (BEAKER) 172 mg/dL 70-110 TESTED AT [address] (test orsg=9421) [place] [id number] POCT-GLUCOSE [id number] 15:30:00 Test Item Value Reference Range Comments POC-GLUCOSE METER (BEAKER) 192 mg/dL 70-110 TESTED AT [address] (test gdex=7630) [place] [id number] URINE [id number] 14:28:00 Test Item Value Reference Range Comments CULTURE (BEAKER) (test sall=7562) No growth POCT-GLUCOSE [id number] 14:10:00 Test Item Value Reference Range Comments POC-GLUCOSE METER (BEAKER) 183 mg/dL 70-110 TESTED AT [address] (test eheq=7534) [place] [id number] POCT-GLUCOSE [id number] 14:10:00 Test Item Value Reference Range Comments POC-GLUCOSE METER (BEAKER) 191 mg/dL 70-110 TESTED AT [address] (test thrr=0747) [place] [address] RAD, ABDOMEN/KUB, 1 VIEW [id number] 13:03:00Reason for exam:->dobbhoff tube placementFINAL REPORT Abdomen one view INDICATION: Dobbhoff tube placement COMPARISON:05/30/2017 IMPRESSION: Feeding tube tip extends to the distal stomach. Suggest advancing. The bowel gas pattern is nonspecific. Cholecystectomy clips, degenerative spine changes, and vascular calcifications and stents are noted. The imaged lower chest is similar to earlier today. Signed: Tanisha Montalvo MDRepb[facility] Verified Date/Time: 2017 13:03:48 Reading Location: [facility] Reading Room POCT- GLUCOSE [id number] 11:56:00 Test Item Value Reference Range Comments POC-GLUCOSE METER (BEAKER) 123 mg/dL 70-110 TESTED AT [address] (test zzgd=7744) [place] [id number] POCT-GLUCOSE [id number] 10:58:00 Test Item Value Reference Range Comments POC-GLUCOSE METER (BEAKER) 206 mg/dL 70-110 TESTED AT [address] (test oaje=3496) [place] [id number] HEMOGLOBIN AND [id number] 10:38:00 Test Item Value Reference Range Comments HEMOGLOBIN (BEAKER) (test flxh=634) 8.9 GM/DL 13.7-17.5 HEMATOCRIT (BEAKER) (test ptki=631) 28.7 % 40.1-51.0 [id number] 09:04:00 Test Item Value Reference Range Comments GLUCOSE RANDOM (BEAKER) (test iodg=339) 230 mg/dL 70-105 CREATINE KINASE (CK), TOTAL AND [id number] 08:55:00 Test Item Value Reference Range Comments CREATINE KINASE TOTAL (BEAKER) (test kokt=944) 96 U/L 29-200 CREATINE KINASE-MB (BEAKER) (test yqjo=807) 1.0 ng/mL 0.0-6.6 CREATINE KINASE-MB INDEX (BEAKER) (test xtdh=185) 1.0 % CK-MB Reference Range:<6.7 Normal6.7-10.0 Borderline>10.0 AbnormalTROPONIN [id number] 08:55:00 Test Item Value Reference Range Comments TROPONIN I (BEAKER) (test onnw=632) 0.10 ng/mL 0.00-0.03 Troponin I (TnI) levels must be interpreted [...] failure, acidosis, acute neurological disease, and persistent tachyarrhythmia.[id number] 08:42:00 Test Item Value Reference Range Comments AMMONIA (BEAKER) (test zvfb=543) 52 mol/L 18-72 POCT-GLUCOSE [id number] 06:16:00 Test Item Value Reference Range Comments POC-GLUCOSE METER (BEAKER) 213 mg/dL 70-110 TESTED AT [facility] [address] [facility] (test kmjz=7288) [facility] [address] BLOOD GAS, [id number] 05:52:00 Test Item Value Reference Range Comments PH ARTERIAL (BEAKER) (test ifhq=763) 7.46 7.35-7.45 PCO2 ARTERIAL (BEAKER) (test iwkz=886) 32 mmHg 35-45 PO2 ARTERIAL (BEAKER) (test syww=337) 110 mmHg 80-90 O2 SATURATION ARTERIAL (BEAKER) (test jpss=770) 98.4 % 96.0-97.0 HCO3 ARTERIAL (BEAKER) (test fofz=992) 22 mmol/L 21-29 BASE EXCESS ARTERIAL (BEAKER) (test szkl=167) -1.1 mmol/L -2.0-3.0 PATIENT TEMPERATURE (BEAKER) (test aizo=6332) 36.5 C FIO2 (BEAKER) (test tafl=1655) 40.0 % COMPREHENSIVE METABOLIC [id number] 05:41:00 Test Item Value Reference Range Comments TOTAL PROTEIN (BEAKER) 5.8 gm/dL 6.0-8.3 (test ehax=197) ALBUMIN (BEAKER) (test 3.1 g/dL 3.5-5.0 afpr=0851) ALKALINE PHOSPHATASE 53 U/L 40-150 (BEAKER) (test tunc=495) BILIRUBIN TOTAL (BEAKER) 0.6 mg/dL 0.2-1.2 (test llsl=644) SODIUM (BEAKER) (test 154 meq/L 136-145 wgnv=082) POTASSIUM (BEAKER) (test 3.2 meq/L 3.5-5.1 ghmk=248) CHLORIDE (BEAKER) (test 123 meq/L 98-107 ytex=964) CO2 (BEAKER) (test 21 meq/L 22-29 pvjq=927) BLOOD UREA NITROGEN 73 mg/dL 7-21 (BEAKER) (test oeds=974) CREATININE (BEAKER) (test 1.10 mg/dL 0.57-1.25 fdgf=309) GLUCOSE RANDOM (BEAKER) 183 mg/dL 70-105 (test gnri=501) CALCIUM (BEAKER) (test 8.6 mg/dL 8.4-10.2 dirj=641) AST (SGOT) (BEAKER) (test 37 U/L 5-34 qxrr=505) ALT (SGPT) (BEAKER) (test 22 U/L 6-55 zspf=253) EGFR (BEAKER) (test 64 mL/min/1.73 sq m ESTIMATED GFR IS NOT jmvs=1432) ACCURATE CREATININE CLEARANCE IN PREDICTING GLOMERULAR FILTRATION RATE. ESTIMATED GFR IS NOT APPLICABLE FOR DIALYSIS PATIENTS. [id number] 05:35:00 Test Item Value Reference Range Comments PHOSPHORUS (BEAKER) (test dduv=140) 2.7 mg/dL 2.3-4.7 [id number] 05:35:00 Test Item Value Reference Range Comments MAGNESIUM (BEAKER) (test kqvw=088) 2.0 mg/dL 1.6-2.6 CBC W/PLT COUNT & AUTO [id number] 05:23:00 Test Item Value Reference Range Comments WHITE BLOOD CELL COUNT (BEAKER) (test liqm=913) 9.5 K/ L 3.5-10.5 RED BLOOD CELL COUNT (BEAKER) (test ique=552) 2.79 M/ L 4.63-6.08 HEMOGLOBIN (BEAKER) (test gsrg=807) 8.7 GM/DL 13.7-17.5 HEMATOCRIT (BEAKER) (test oyap=278) 26.9 % 40.1-51.0 MEAN CORPUSCULAR VOLUME (BEAKER) (test zatf=337) 96.4 fL 79.0-92.2 MEAN CORPUSCULAR HEMOGLOBIN (BEAKER) (test 31.2 pg 25.7-32.2 sllq=608) MEAN CORPUSCULAR HEMOGLOBIN CONC (BEAKER) (test 32.3 GM/DL 32.3-36.5 feby=620) RED CELL DISTRIBUTION WIDTH (BEAKER) (test 20.8 % 11.6-14.4 kzdb=472) PLATELET COUNT (BEAKER) (test wcom=219) 149 K/CU MM 150-450 MEAN PLATELET VOLUME (BEAKER) (test csko=968) 9.8 fL 9.4-12.4 NUCLEATED RED BLOOD CELLS (BEAKER) (test 2 /100 WBC 0-0 zvrk=545) NEUTROPHILS RELATIVE PERCENT (BEAKER) (test 63 % wafo=146) LYMPHOCYTES RELATIVE PERCENT (BEAKER) (test 23 % wuto=967) MONOCYTES RELATIVE PERCENT (BEAKER) (test 10 % znoj=790) EOSINOPHILS RELATIVE PERCENT (BEAKER) (test 3 % fiic=940) BASOPHILS RELATIVE PERCENT (BEAKER) (test 0 % fuoa=657) NEUTROPHILS ABSOLUTE COUNT (BEAKER) (test 5.95 K/ L 1.78-5.38 oxwv=123) LYMPHOCYTES ABSOLUTE COUNT (BEAKER) (test 2.19 K/ L 1.32-3.57 vsxk=035) MONOCYTES ABSOLUTE COUNT (BEAKER) (test 0.95 K/ L 0.30-0.82 quhs=330) EOSINOPHILS ABSOLUTE COUNT (BEAKER) (test 0.28 K/ L 0.04-0.54 jztv=041) BASOPHILS ABSOLUTE COUNT (BEAKER) (test 0.03 K/ L 0.01-0.08 ljmp=512) IMMATURE GRANULOCYTES-RELATIVE PERCENT (BEAKER) 1 % 0-1 (test mmbt=8152) RAD, CHEST, 1 VIEW, NON [id number] 04:41:00Reason for exam:-> ventedShould this be performed at the bedside?->YesFINAL REPORT EXAMINATION: AP PORTABLE CHEST RADIOGRAPH CLINICAL INDICATION: Intubated IMPRESSION: Compared with 06/01/2017 Support tube and catheter positions are unchanged. Streaky opacities persist at the lung bases. Atelectasis is favored. No evidence of new lung consolidation or pneumothorax. The heart is enlarged as before. Midline sternotomy and left subclavian cardiac pacing device are again noted. In summary, no significant interval change. Signed: Raoul Patel [facility] Verified Date/Time: 06/02/2017 04:41:51 Reading Location: [address] Reading Room CREATINE KINASE (CK), TOTAL AND [id number] 01:02:00 Test Item Value Reference Range Comments CREATINE KINASE TOTAL (BEAKER) (test rcqs=606) 109 U/L 29-200 CREATINE KINASE-MB (BEAKER) (test flwj=597) 1.0 ng/mL 0.0-6.6 CREATINE KINASE-MB INDEX (BEAKER) (test datp=727) 0.9 % CK-MB Reference Range:<6.7 Normal6.7-10.0 Borderline>10.0 AbnormalTROPONIN [id number] 01:02:00 Test Item Value Reference Range Comments TROPONIN I (BEAKER) (test fxrs=801) 0.10 ng/mL 0.00-0.03 Troponin I (TnI) levels must be interpreted [...] failure, acidosis, acute neurological disease, and persistent tachyarrhythmia.POCT-GLUCOSE [id number] 00:25:00 Test Item Value Reference Range Comments POC-GLUCOSE METER (BEAKER) 234 mg/dL 70-110 TESTED AT [address] (test ksai=3692) [facility] [id number] 22:40:00 Test Item Value Reference Range Comments MAGNESIUM (BEAKER) (test jchw=003) 2.0 mg/dL 1.6-2.6 PROTHROMBIN [id number] 22:34:00 Test Item Value Reference Range Comments PROTIME (BEAKER) (test jjgj=819) 18.0 seconds 11.7-14.7 INR (BEAKER) (test nkld=657) 1.5 <=5.9 RECOMMENDED COUMADIN/WARFARIN INR THERAPY RANGESSTANDARD DOSE: 2.0 - 3.0 Includes: PROPHYLAXIS forvenous thrombosis, systemic embolization; TREATMENT for venous thrombosis and/or pulmonary embolus.HIGH RISK: Target INR is 2.5-3.5 for patients with mechanical heart valves.HEMOGLOBIN AND [id number] 22 :27:00 Test Item Value Reference Range Comments HEMOGLOBIN (BEAKER) (test njkr=894) 8.3 GM/DL 13.7-17.5 HEMATOCRIT (BEAKER) (test ovpp=052) 25.9 % 40.1-51.0 POCT-GLUCOSE [id number] 18:46:00 Test Item Value Reference Range Comments POC-GLUCOSE METER (BEAKER) 318 mg/dL 70-110 Notified AGUSTINA FOUNTAIN/TESTED AT [facility] (test pcfl=0252) [address] [place] [id number] CREATINE KINASE (CK), TOTAL AND [id number] 18:06:00 Test Item Value Reference Range Comments CREATINE KINASE TOTAL (BEAKER) (test jrhw=856) 155 U/L 29-200 CREATINE KINASE-MB (BEAKER) (test zttd=205) 1.2 ng/mL 0.0-6.6 CREATINE KINASE-MB INDEX (BEAKER) (test fprq=870) 0.8 % CK-MB Reference Range:<6.7 Normal6.7-10.0 Borderline>10.0 AbnormalTROPONIN [id number] 18:06:00 Test Item Value Reference Range Comments TROPONIN I (BEAKER) (test bfae=496) 0.15 ng/mL 0.00-0.03 Troponin I (TnI) levels must be interpreted [...] failure, acidosis, acute neurological disease, and persistent tachyarrhythmia.HEMOGLOBIN AND [id number] 17: 41:00 Test Item Value Reference Range Comments HEMOGLOBIN (BEAKER) (test qqfk=214) 8.7 GM/DL 13.7-17.5 HEMATOCRIT (BEAKER) (test yowt=286) 27.0 % 40.1-51.0 RAD, CHEST, 1 VIEW, NON [id number] 17:39:00Reason for exam:->central line placement Should this be performed at the bedside?->YesFINAL REPORT AP view of the chest dated 06/01/2017 COMPARISON: June [id number] CLINICAL INFORMATION: central line placement Comment: Since prior examination, there is intervalplacement of a right IJ central venous catheter. No pneumothorax is noted. No other changes are seenin the chest. Signed: Eden Carias MDReport Verified Date/Time: 06/01/2017 17:39:56 Reading Location: [facility] [id number] Consult Reading Room BASIC METABOLIC [id number] 13:20:00 Test Item Value Reference Range Comments SODIUM (BEAKER) (test 155 meq/L 136-145 evcw=161) POTASSIUM (BEAKER) (test 3.6 meq/L 3.5-5.1 moif=389) CHLORIDE (BEAKER) (test 126 meq/L 98-107 tgcw=541) CO2 (BEAKER) (test 19 meq/L 22-29 ntlu=110) BLOOD UREA NITROGEN 99 mg/dL 7-21 (BEAKER) (test wscy=985) CREATININE (BEAKER) (test 1.20 mg/dL 0.57-1.25 ivfl=733) GLUCOSE RANDOM (BEAKER) 167 mg/dL 70-105 (test qklj=238) CALCIUM (BEAKER) (test 8.5 mg/dL 8.4-10.2 njas=482) EGFR (BEAKER) (test 58 mL/min/1.73 sq m ESTIMATED GFR IS NOT cygl=7301) ACCURATE CREATININE CLEARANCE IN PREDICTING GLOMERULAR FILTRATION RATE. ESTIMATED GFR IS NOT APPLICABLE FOR DIALYSIS PATIENTS. TROPONIN [id number] 13:20:00 Test Item Value Reference Range Comments TROPONIN I (BEAKER) (test ypxl=256) 0.18 ng/mL 0.00-0.03 Troponin I (TnI) levels must be interpreted [...] failure, acidosis, acute neurological disease, and persistent tachyarrhythmia.CREATINE KINASE (CK), TOTAL AND [id number] 12:59:00 Test Item Value Reference Range Comments CREATINE KINASE TOTAL (BEAKER) (test wbwy=546) 192 U/L 29-200 CREATINE KINASE-MB (BEAKER) (test uiwp=460) 1.2 ng/mL 0.0-6.6 CREATINE KINASE-MB INDEX (BEAKER) (test qfzz=739) 0.6 % CK-MB Reference Range:<6.7 Normal6.7-10.0 Borderline>10.0 AbnormalLACTIC ACID, VENOUS, WHOLE [id number] 12:45:00 Test Item Value Reference Range Comments LACTATE BLOOD VENOUS (2) (BEAKER) (test 0.8 mmol/L 0.5-2.2 zkti=4333) Effective 06/10/2015: Units/Reference Range ChangeNew: 0.5-2.2 mmol/L Previous: 5 -20 mg/dLPT/[id number] 12:29:00 Test Item Value Reference Range Comments PROTIME (BEAKER) (test rlnl=429) 21.1 seconds 11.7-14.7 INR (BEAKER) (test bvrj=711) 1.8 <=5.9 PARTIAL THROMBOPLASTIN TIME (BEAKER) (test 38.1 seconds 22.5-36.0 fyhd=507) RECOMMENDED COUMADIN/WARFARIN INR THERAPY RANGESSTANDARD DOSE: 2.0 - 3.0 Includes: PROPHYLAXIS forvenous thrombosis, systemic embolization; TREATMENT for venous thrombosis and/or pulmonary embolus.HIGH RISK: Target INR is 2.5-3.5 for patients with mechanical heart valves.POCT-GLUCOSE [id number] 12:28:00 Test Item Value Reference Range Comments POC-GLUCOSE METER (BEAKER) 180 mg/dL 70-110 TESTED AT [address] (test dpwt=9613) [facility] [address] BLOOD GAS, [id number] 12:24:00 Test Item Value Reference Range Comments PH ARTERIAL (BEAKER) (test usgh=023) 7.49 7.35-7.45 PCO2 ARTERIAL (BEAKER) (test rggm=786) 27 mmHg 35-45 PO2 ARTERIAL (BEAKER) (test iarx=446) 100 mmHg 80-90 O2 SATURATION ARTERIAL (BEAKER) (test fpnw=321) 98.1 % 96.0-97.0 HCO3 ARTERIAL (BEAKER) (test jfog=675) 20 mmol/L 21-29 BASE EXCESS ARTERIAL (BEAKER) (test dzjv=922) -2.8 mmol/L -2.0-3.0 PATIENT TEMPERATURE (BEAKER) (test xaiy=5775) 36.6 C FIO2 (BEAKER) (test wcvr=5652) 40.0 % HEMOGLOBIN AND [id number] 12:20:00 Test Item Value Reference Range Comments HEMOGLOBIN (BEAKER) (test cpfe=458) 7.4 GM/DL 13.7-17.5 HEMATOCRIT (BEAKER) (test clns=272) 23.2 % 40.1-51.0 POCT-GLUCOSE [id number] 11:20:00 Test Item Value Reference Range Comments POC-GLUCOSE METER (BEAKER) 113 mg/dL 70-110 TESTED AT [address] (test lzys=7646) [facility] [address] POCT-GLUCOSE [id number] 11:20:00 Test Item Value Reference Range Comments POC-GLUCOSE METER (BEAKER) 73 mg/dL 70-110 TESTED AT [address] (test kxdb=2400) [place] [address] RAD, CHEST, 1 VIEW, NON [id number] 08:21:00Reason for exam:->acess for pulmonary edemaShould this be performed at the bedside?->YesFINAL REPORT Chest one view INDICATION: Pulmonary edema COMPARISON: IMPRESSION: Support devices are stable. Median sternotomy changes and a pacemaker are noted. The cardiac silhouette is enlarged. There are low lung volumes with pulmonary vascular congestion and mild interstitial edema. Left retrocardiac consolidation or atelectasis is stable with an adjacent pleural effusion. Stable right basilar opacity may reflect atelectasis or mild pneumonitis. No pneumothorax is seen. Signed: Tanisha Montalvoepcorey Verified Date/Time: 06/01/2017 08:21:22 Reading Location: [facility] Reading Room POCT-GLUCOSE [id number] 07:34:00 Test Item Value Reference Range Comments POC-GLUCOSE METER (BEAKER) 126 mg/dL 70-110 TESTED AT [address] (test cmkl=1044) [place] [address] POCT-GLUCOSE [id number] 06:58:00 Test Item Value Reference Range Comments POC-GLUCOSE METER (BEAKER) 171 mg/dL 70-110 TESTED AT [address] (test stqg=9376) [place] [address] POCT-GLUCOSE [id number] 06:58:00 Test Item Value Reference Range Comments POC-GLUCOSE METER (BEAKER) 210 mg/dL 70-110 TESTED AT [address] (test kehp=8133) [place] [address] BASIC METABOLIC [id number] 05:04:00 Test Item Value Reference Range Comments SODIUM (BEAKER) (test 158 meq/L 136-145 tpzs=147) POTASSIUM (BEAKER) (test 3.5 meq/L 3.5-5.1 lznw=226) CHLORIDE (BEAKER) (test 122 meq/L 98-107 xott=210) CO2 (BEAKER) (test 23 meq/L 22-29 tnmw=431) BLOOD UREA NITROGEN 116 mg/dL 7-21 (BEAKER) (test fxct=555) CREATININE (BEAKER) (test 1.39 mg/dL 0.57-1.25 igqk=635) GLUCOSE RANDOM (BEAKER) 178 mg/dL 70-105 (test xkep=061) CALCIUM (BEAKER) (test 8.7 mg/dL 8.4-10.2 khlz=303) EGFR (BEAKER) (test 49 mL/min/1.73 sq m ESTIMATED GFR IS NOT xfze=9745) ACCURATE CREATININE CLEARANCE IN PREDICTING GLOMERULAR FILTRATION RATE. ESTIMATED GFR IS NOT APPLICABLE FOR DIALYSIS PATIENTS. TROPONIN [id number] 05:02:00 Test Item Value Reference Range Comments TROPONIN I (BEAKER) (test dioq=233) 0.22 ng/mL 0.00-0.03 Troponin I (TnI) levels must be interpreted [...] failure, acidosis, acute neurological disease, and persistent tachyarrhythmia.CREATINE KINASE (CK), TOTAL AND [id number] 04:58:00 Test Item Value Reference Range Comments CREATINE KINASE TOTAL (BEAKER) (test wdul=897) 236 U/L 29-200 CREATINE KINASE-MB (BEAKER) (test pusn=871) 1.6 ng/mL 0.0-6.6 CREATINE KINASE-MB INDEX (BEAKER) (test ndiy=484) 0.7 % CK-MB Reference Range:<6.7 Normal6.7-10.0 Borderline>10.0 [id number] 04:52:00 Test Item Value Reference Range Comments PHOSPHORUS (BEAKER) (test vyjx=164) 3.1 mg/dL 2.3-4.7 [id number] 04:52:00 Test Item Value Reference Range Comments MAGNESIUM (BEAKER) (test btbo=819) 2.3 mg/dL 1.6-2.6 LACTIC ACID, VENOUS, WHOLE [id number] 04:45:00 Test Item Value Reference Range Comments LACTATE BLOOD VENOUS (2) (BEAKER) (test 1.9 mmol/L 0.5-2.2 yfls=6162) Effective 06/10/2015: Units/Reference Range ChangeNew: 0.5-2.2 mmol/L Previous: 5 -20 mg/dLPOCT-GLUCOSE [id number] 03:55:00 Test Item Value Reference Range Comments POC-GLUCOSE METER (BEAKER) 175 mg/dL 70-110 TESTED AT [address] (test ymuz=0212) [facility] [address] POCT-GLUCOSE [id number] 03:55:00 Test Item Value Reference Range Comments POC-GLUCOSE METER (BEAKER) 83 mg/dL 70-110 TESTED AT [address] (test yxhz=1902) [facility] [address] CBC W/PLT COUNT & AUTO [id number] 02:01:00 Test Item Value Reference Range Comments WHITE BLOOD CELL COUNT (BEAKER) (test iiic=895) 14.4 K/ L 3.5-10.5 RED BLOOD CELL COUNT (BEAKER) (test jdxb=899) 2.62 M/ L 4.63-6.08 HEMOGLOBIN (BEAKER) (test pnzc=441) 8.2 GM/DL 13.7-17.5 HEMATOCRIT (BEAKER) (test itvn=027) 25.5 % 40.1-51.0 MEAN CORPUSCULAR VOLUME (BEAKER) (test iuqc=008) 97.3 fL 79.0-92.2 MEAN CORPUSCULAR HEMOGLOBIN (BEAKER) (test 31.3 pg 25.7-32.2 xisb=967) MEAN CORPUSCULAR HEMOGLOBIN CONC (BEAKER) (test 32.2 GM/DL 32.3-36.5 kxat=879) RED CELL DISTRIBUTION WIDTH (BEAKER) (test 21.2 % 11.6-14.4 kcts=746) PLATELET COUNT (BEAKER) (test kljc=693) 200 K/CU MM 150-450 MEAN PLATELET VOLUME (BEAKER) (test pbrq=946) 10.8 fL 9.4-12.4 NUCLEATED RED BLOOD CELLS (BEAKER) (test 7 /100 WBC 0-0 agza=300) NEUTROPHILS RELATIVE PERCENT (BEAKER) (test 70 % tfye=282) LYMPHOCYTES RELATIVE PERCENT (BEAKER) (test 19 % tnrf=623) MONOCYTES RELATIVE PERCENT (BEAKER) (test 9 % djgt=982) EOSINOPHILS RELATIVE PERCENT (BEAKER) (test 0 % qjda=096) BASOPHILS RELATIVE PERCENT (BEAKER) (test 0 % eoox=046) NEUTROPHILS ABSOLUTE COUNT (BEAKER) (test 10.14 K/ L 1.78-5.38 mtdn=438) LYMPHOCYTES ABSOLUTE COUNT (BEAKER) (test 2.80 K/ L 1.32-3.57 gqzi=992) MONOCYTES ABSOLUTE COUNT (BEAKER) (test 1.26 K/ L 0.30-0.82 igam=374) EOSINOPHILS ABSOLUTE COUNT (BEAKER) (test 0.03 K/ L 0.04-0.54 zxfj=159) BASOPHILS ABSOLUTE COUNT (BEAKER) (test 0.04 K/ L 0.01-0.08 ioml=174) IMMATURE GRANULOCYTES-RELATIVE PERCENT (BEAKER) 1 % 0-1 (test mlmo=0421) LACTIC ACID, VENOUS, WHOLE [id number] 22:35:00 Test Item Value Reference Range Comments LACTATE BLOOD VENOUS (2) 1.2 mmol/L 0.5-2.2 Specimen slightly hemolyzed (BEAKER) (test vdds=8602) Effective 06/10/2015: Units/Reference Range ChangeNew: 0.5-2.2 mmol/L Previous: 5 -20 mg/dLHEMOGLOBIN AND [id number] 22:12:00 Test Item Value Reference Range Comments HEMOGLOBIN (BEAKER) (test brlx=057) 7.7 GM/DL 13.7-17.5 HEMATOCRIT (BEAKER) (test pptf=429) 24.0 % 40.1-51.0 POCT-GLUCOSE [id number] 21:02:00 Test Item Value Reference Range Comments POC-GLUCOSE METER (BEAKER) 131 mg/dL 70-110 TESTED AT [address] (test nsuh=4120) [facility] [address] POCT-GLUCOSE [id number] 19:57:00 Test Item Value Reference Range Comments POC-GLUCOSE METER (BEAKER) 159 mg/dL 70-110 TESTED AT [address] (test sgoz=1056) [place] [id number] POCT-GLUCOSE [id number] 18:42:00 Test Item Value Reference Range Comments POC-GLUCOSE METER (BEAKER) 186 mg/dL 70-110 TESTED AT [address] (test cxtx=7243) [place] [id number] POCT-GLUCOSE [id number] 18:33:00 Test Item Value Reference Range Comments POC-GLUCOSE METER (BEAKER) 181 mg/dL 70-110 TESTED AT [address] (test hfvn=6472) [place] [address] POCT-GLUCOSE [id number] 18:33:00 Test Item Value Reference Range Comments POC-GLUCOSE METER (BEAKER) 226 mg/dL 70-110 TESTED AT [address] (test wzdb=2000) [place] [id number] POCT-GLUCOSE [id number] 18:33:00 Test Item Value Reference Range Comments POC-GLUCOSE METER (BEAKER) 257 mg/dL 70-110 TESTED AT [address] (test dbra=5637) [place] [address] TROPONIN [id number] 18:15:00 Test Item Value Reference Range Comments TROPONIN I (BEAKER) (test spaa=200) 0.16 ng/mL 0.00-0.03 Troponin I (TnI) levels must be interpreted [...] failure, acidosis, acute neurological disease, and persistent tachyarrhythmia.CREATINE KINASE (CK), TOTAL AND [id number] 18:14:00 Test Item Value Reference Range Comments CREATINE KINASE TOTAL (BEAKER) (test nxiv=332) 454 U/L 29-200 CREATINE KINASE-MB (BEAKER) (test kfwy=713) 3.0 ng/mL 0.0-6.6 CREATINE KINASE-MB INDEX (BEAKER) (test sjmx=149) 0.7 % CK-MB Reference Range:<6.7 Normal6.7-10.0 Borderline>10.0 AbnormalBLOOD GAS, [id number] 17:57:00 Test Item Value Reference Range Comments PH ARTERIAL (BEAKER) (test kgzi=671) 7.45 7.35-7.45 PCO2 ARTERIAL (BEAKER) (test fcxj=599) 37 mmHg 35-45 PO2 ARTERIAL (BEAKER) (test fsgh=049) 123 mmHg 80-90 O2 SATURATION ARTERIAL (BEAKER) (test xyoc=738) 98.6 % 96.0-97.0 HCO3 ARTERIAL (BEAKER) (test huvn=892) 25 mmol/L 21-29 BASE EXCESS ARTERIAL (BEAKER) (test rzhd=364) 0.8 mmol/L -2.0-3.0 PATIENT TEMPERATURE (BEAKER) (test imkl=7155) 37.1 C FIO2 (BEAKER) (test yilp=4826) 40.0 % HEMOGLOBIN AND [id number] 17:47:00 Test Item Value Reference Range Comments HEMOGLOBIN (BEAKER) (test hyxm=915) 7.7 GM/DL 13.7-17.5 HEMATOCRIT (BEAKER) (test mirz=184) 23.3 % 40.1-51.0 EEG AWAKE/ASLEEP AND [id number] 17:06:00Reason for exam:->syncopal episode r/o seizure activityShould this be performed at the bedside?->YesDate (s) of EE05/31/17ACC: [id number] Number: [id number] Location: Inpatient ICUStart time: 16:25Stop time: 16:46ICD-10: G93.40CPT Code: 92430 HISTORY: 82 years-old with GI bleed and AMS MEDICATIONS THAT COULD AFFECT EEG: Propofol TECHNICAL SUMMARY: This is a digital video-EEG recorded with 32 input channels reviewed with bipolar and referential montages using the modified combinatorial systemnomenclature. DESCRIPTION OF RECORD: During the stimulated state, the background frequency spectrumconsists primarily of diffuse, 4-6 Hz theta, 2-3 [...] slowing 2. Triphasic potentials There is no evidencefor electrographic seizure in this record. CLINICAL CORRELATION: Diffuse slowing as in this study supports the presence of a moderate encephalopathy. Triphasic wave potentials represent a nonspecific finding that is typically associated with metabolic/toxic disturbances, as well as with other settingsof widespread, non-metabolic NURSING HOME AIDE insults (such as trauma or aftermath of significant seizures). Jovanny Montanez M.D.Neurophysiology Fellow, PGY5 Rikki Zayas M.D.Clinical Neurophysiology/ Epilepsy Attending Electronically signed by: RIKKI ZAYAS MD on 05/31 05:06 PMRAD, CHEST, 1 VIEW, NON [id number] 16:55:00Reason for exam:-& gt;Post intubationShould this be performed at the bedside?->YesFINAL REPORT Chest one view INDICATION: Post intubation COMPARISON: IMPRESSION: ET tube terminates 4.4 cm above the dick. NG tube extends to the stomach. Median sternotomy changes and a pacing device are noted. The cardiac silhouette is enlarged. There are low lung volumes with pulmonary vascular congestion. Left retrocardiac consolidation or atelectasis appears increased, likely with an adjacent pleural effusion. No pneumothorax is seen. Signed: Tanisha Montalvo MDReport Verified Date/Time: 05/31/2017 16:55:11 Reading Location: [facility] C0[facility] Consult Reading Room HEMOGLOBIN [id number] 15:51: 00 Test Item Value Reference Range Comments HEMOGLOBIN A1C (BEAKER) (test wdcs=948) 6.1 % 4.3-6.1 POCT-GLUCOSE [id number] 15:03:00 Test Item Value Reference Range Comments POC-GLUCOSE METER (BEAKER) 150 mg/dL 70-110 TESTED AT [address] (test wdgo=3372) [facility] [address] BASIC METABOLIC [id number] 13:41:00 Test Item Value Reference Range Comments SODIUM (BEAKER) (test 154 meq/L 136-145 oudk=930) POTASSIUM (BEAKER) (test 4.2 meq/L 3.5-5.1 gdca=122) CHLORIDE (BEAKER) (test 122 meq/L 98-107 fjmp=037) CO2 (BEAKER) (test 21 meq/L 22-29 pnbd=966) BLOOD UREA NITROGEN 128 mg/dL 7-21 (BEAKER) (test otou=529) CREATININE (BEAKER) (test 1.49 mg/dL 0.57-1.25 mpar=652) GLUCOSE RANDOM (BEAKER) 161 mg/dL 70-105 (test jhyh=478) CALCIUM (BEAKER) (test 9.0 mg/dL 8.4-10.2 nind=410) EGFR (BEAKER) (test 45 mL/min/1.73 sq m ESTIMATED GFR IS NOT oqkp=7693) ACCURATE CREATININE CLEARANCE IN PREDICTING GLOMERULAR FILTRATION RATE. ESTIMATED GFR IS NOT APPLICABLE FOR DIALYSIS PATIENTS. [id number] 13:34:00 Test Item Value Reference Range Comments PHOSPHORUS (BEAKER) (test hcit=678) 4.0 mg/dL 2.3-4.7 [id number] 13:34:00 Test Item Value Reference Range Comments MAGNESIUM (BEAKER) (test zkla=643) 2.2 mg/dL 1.6-2.6 LACTIC ACID, VENOUS, WHOLE [id number] 13:20:00 Test Item Value Reference Range Comments LACTATE BLOOD VENOUS (2) (BEAKER) (test 1.8 mmol/L 0.5-2.2 llac=3139) Effective 06/10/2015: Units/Reference Range ChangeNew: 0.5-2.2 mmol/L Previous: 5 -20 mg/dLCBC W/PLT COUNT & AUTO [id number] 13:08:00 Test Item Value Reference Range Comments WHITE BLOOD CELL COUNT (BEAKER) (test jsrc=176) 16.7 K/ L 3.5-10.5 RED BLOOD CELL COUNT (BEAKER) (test awqr=917) 2.71 M/ L 4.63-6.08 HEMOGLOBIN (BEAKER) (test zmdu=925) 8.3 GM/DL 13.7-17.5 HEMATOCRIT (BEAKER) (test upmx=019) 25.3 % 40.1-51.0 MEAN CORPUSCULAR VOLUME (BEAKER) (test wxrz=489) 93.4 fL 79.0-92.2 MEAN CORPUSCULAR HEMOGLOBIN (BEAKER) (test 30.6 pg 25.7-32.2 pppj=526) MEAN CORPUSCULAR HEMOGLOBIN CONC (BEAKER) (test 32.8 GM/DL 32.3-36.5 umik=802) RED CELL DISTRIBUTION WIDTH (BEAKER) (test 19.6 % 11.6-14.4 dlqa=526) PLATELET COUNT (BEAKER) (test ueqj=249) 200 K/CU MM 150-450 MEAN PLATELET VOLUME (BEAKER) (test zqkd=364) 10.7 fL 9.4-12.4 NUCLEATED RED BLOOD CELLS (BEAKER) (test 14 /100 WBC 0-0 mbff=572) NEUTROPHILS RELATIVE PERCENT (BEAKER) (test 71 % shbr=106) LYMPHOCYTES RELATIVE PERCENT (BEAKER) (test 15 % tdfk=659) MONOCYTES RELATIVE PERCENT (BEAKER) (test 13 % sfdw=055) EOSINOPHILS RELATIVE PERCENT (BEAKER) (test 0 % xyzg=736) BASOPHILS RELATIVE PERCENT (BEAKER) (test 0 % twdq=704) NEUTROPHILS ABSOLUTE COUNT (BEAKER) (test 11.78 K/ L 1.78-5.38 xsra=583) LYMPHOCYTES ABSOLUTE COUNT (BEAKER) (test 2.45 K/ L 1.32-3.57 agxv=251) MONOCYTES ABSOLUTE COUNT (BEAKER) (test 2.12 K/ L 0.30-0.82 umwl=570) EOSINOPHILS ABSOLUTE COUNT (BEAKER) (test 0.01 K/ L 0.04-0.54 mnow=955) BASOPHILS ABSOLUTE COUNT (BEAKER) (test 0.06 K/ L 0.01-0.08 dnxo=765) IMMATURE GRANULOCYTES-RELATIVE PERCENT (BEAKER) 2 % 0-1 (test esja=8338) HEMOGLOBIN AND [id number] 13:00:00 Test Item Value Reference Range Comments HEMOGLOBIN (BEAKER) (test fxix=895) 8.3 GM/DL 13.7-17.5 HEMATOCRIT (BEAKER) (test ybes=718) 25.3 % 40.1-51.0 POCT-GLUCOSE [id number] 12:13:00 Test Item Value Reference Range Comments POC-GLUCOSE METER (BEAKER) 119 mg/dL 70-110 TESTED AT [address] (test dbtw=0793) [facility] [address] POCT-GLUCOSE [id number] 12:13:00 Test Item Value Reference Range Comments POC-GLUCOSE METER (BEAKER) 150 mg/dL 70-110 TESTED AT [address] (test kzmb=3466) [facility] [address] POCT-GLUCOSE [id number] 12:13:00 Test Item Value Reference Range Comments POC-GLUCOSE METER (BEAKER) 211 mg/dL 70-110 TESTED AT [address] (test dtsw=7109) [facility] [address] POCT-GLUCOSE [id number] 12:13:00 Test Item Value Reference Range Comments POC-GLUCOSE METER (BEAKER) 272 mg/dL 70-110 TESTED AT [address] (test ozmh=2566) [facility] [address] B-TYPE NATRIURETIC FACTOR (BNP)2017-05-31 08:12:00 Test Item Value Reference Range Comments B-TYPE NATRIURETIC PEPTIDE (BEAKER) (test 558 pg/mL 0-100 cfvf=912) CREATINE KINASE (CK), TOTAL AND [id number] 07:37:00 Test Item Value Reference Range Comments CREATINE KINASE TOTAL (BEAKER) (test keey=809) 560 U/L 29-200 CREATINE KINASE-MB (BEAKER) (test pzgp=417) 4.9 ng/mL 0.0-6.6 CREATINE KINASE-MB INDEX (BEAKER) (test uyep=051) 0.9 % CK-MB Reference Range:<6.7 Normal6.7-10.0 Borderline>10.0 AbnormalTROPONIN [id number] 07:37:00 Test Item Value Reference Range Comments TROPONIN I (BEAKER) (test jwcc=936) 0.07 ng/mL 0.00-0.03 Troponin I (TnI) levels must be interpreted [...] failure, acidosis, acute neurological disease, and persistent tachyarrhythmia.[id number] 07:26:00 Test Item Value Reference Range Comments ETHANOL (BEAKER) (test tiyo=169) < mg/dL <=10 POCT-GLUCOSE [id number] 06:52:00 Test Item Value Reference Range Comments POC-GLUCOSE METER (BEAKER) 284 mg/dL 70-110 TESTED AT [address] (test zehn=7287) [place] [id number] POCT-GLUCOSE [id number] 05:47:00 Test Item Value Reference Range Comments POC-GLUCOSE METER (BEAKER) 406 mg/dL 70-110 TESTED AT [address] (test nxtf=6852) [place] [id number] POCT-GLUCOSE [id number] 05:47:00 Test Item Value Reference Range Comments POC-GLUCOSE METER (BEAKER) 405 mg/dL 70-110 TESTED AT [address] (test aqkw=6045) [place] [id number] POCT-GLUCOSE [id number] 05:47:00 Test Item Value Reference Range Comments POC-GLUCOSE METER (BEAKER) 429 mg/dL 70-110 TESTED AT [address] (test larv=0406) [place] [id number] BASIC METABOLIC [id number] 04:02:00 Test Item Value Reference Range Comments SODIUM (BEAKER) (test 150 meq/L 136-145 cbeo=550) POTASSIUM (BEAKER) (test 4.2 meq/L 3.5-5.1 tumk=994) CHLORIDE (BEAKER) (test 117 meq/L 98-107 mmtk=159) CO2 (BEAKER) (test 18 meq/L 22-29 qujx=805) BLOOD UREA NITROGEN 154 mg/dL 7-21 (BEAKER) (test dkqn=483) CREATININE (BEAKER) (test 1.81 mg/dL 0.57-1.25 evia=827) GLUCOSE RANDOM (BEAKER) 389 mg/dL 70-105 (test thzg=568) CALCIUM (BEAKER) (test 8.7 mg/dL 8.4-10.2 cweq=896) EGFR (BEAKER) (test 36 mL/min/1.73 sq m ESTIMATED GFR IS NOT fodl=0188) ACCURATE CREATININE CLEARANCE IN PREDICTING GLOMERULAR FILTRATION RATE. ESTIMATED GFR IS NOT APPLICABLE FOR DIALYSIS PATIENTS. [id number] 03:59:00 Test Item Value Reference Range Comments PHOSPHORUS (BEAKER) (test grtq=844) 4.4 mg/dL 2.3-4.7 [id number] 03:59:00 Test Item Value Reference Range Comments MAGNESIUM (BEAKER) (test xlyp=639) 2.2 mg/dL 1.6-2.6 VANCOMYCIN LEVEL, [id number] 03:49:00 Test Item Value Reference Range Comments VANCOMYCIN RANDOM (BEAKER) (test liak=034) 19.0 ug/mL Reference Range: No NormalsCBC W/PLT COUNT & AUTO [id number] 03: 41:00 Test Item Value Reference Range Comments WHITE BLOOD CELL COUNT (BEAKER) (test zsgn=258) 18.9 K/ L 3.5-10.5 RED BLOOD CELL COUNT (BEAKER) (test wrub=606) 2.35 M/ L 4.63-6.08 HEMOGLOBIN (BEAKER) (test abwp=940) 7.4 GM/DL 13.7-17.5 HEMATOCRIT (BEAKER) (test ljtb=056) 22.7 % 40.1-51.0 MEAN CORPUSCULAR VOLUME (BEAKER) (test bbed=253) 96.6 fL 79.0-92.2 MEAN CORPUSCULAR HEMOGLOBIN (BEAKER) (test 31.5 pg 25.7-32.2 mndw=150) MEAN CORPUSCULAR HEMOGLOBIN CONC (BEAKER) (test 32.6 GM/DL 32.3-36.5 orrq=263) RED CELL DISTRIBUTION WIDTH (BEAKER) (test 18.2 % 11.6-14.4 mngx=057) PLATELET COUNT (BEAKER) (test pbsh=843) 206 K/CU MM 150-450 MEAN PLATELET VOLUME (BEAKER) (test zarg=470) 10.8 fL 9.4-12.4 NUCLEATED RED BLOOD CELLS (BEAKER) (test 7 /100 WBC 0-0 frlu=655) NEUTROPHILS RELATIVE PERCENT (BEAKER) (test 75 % anip=498) LYMPHOCYTES RELATIVE PERCENT (BEAKER) (test 12 % qbhr=837) MONOCYTES RELATIVE PERCENT (BEAKER) (test 11 % nbta=725) EOSINOPHILS RELATIVE PERCENT (BEAKER) (test 0 % icff=225) BASOPHILS RELATIVE PERCENT (BEAKER) (test 0 % klld=675) NEUTROPHILS ABSOLUTE COUNT (BEAKER) (test 14.26 K/ L 1.78-5.38 ifux=646) LYMPHOCYTES ABSOLUTE COUNT (BEAKER) (test 2.29 K/ L 1.32-3.57 kuuv=150) MONOCYTES ABSOLUTE COUNT (BEAKER) (test 2.05 K/ L 0.30-0.82 szwi=162) EOSINOPHILS ABSOLUTE COUNT (BEAKER) (test 0.00 K/ L 0.04-0.54 utqv=576) BASOPHILS ABSOLUTE COUNT (BEAKER) (test 0.02 K/ L 0.01-0.08 ronk=269) IMMATURE GRANULOCYTES-RELATIVE PERCENT (BEAKER) 2 % 0-1 (test mxmi=1422) LACTIC ACID, VENOUS, WHOLE [id number] 03:29:00 Test Item Value Reference Range Comments LACTATE BLOOD VENOUS (2) (BEAKER) (test 3.1 mmol/L 0.5-2.2 erpq=5343) Effective 06/10/2015: Units/Reference Range ChangeNew: 0.5-2.2 mmol/L Previous: 5 -20 mg/dLCALCIUM, [id number] 03:17:00 Test Item Value Reference Range Comments CALCIUM IONIZED (BEAKER) (test zigv=074) 1.14 mmol/L 1.12-1.27 PH, BLOOD (BEAKER) (test kcis=7706) 7.31 BASIC METABOLIC [id number] 23:39:00 Test Item Value Reference Range Comments SODIUM (BEAKER) (test 150 meq/L 136-145 zwqn=196) POTASSIUM (BEAKER) (test 4.2 meq/L 3.5-5.1 cznh=095) CHLORIDE (BEAKER) (test 118 meq/L 98-107 xjjz=304) CO2 (BEAKER) (test 18 meq/L 22-29 ikal=702) BLOOD UREA NITROGEN 147 mg/dL 7-21 (BEAKER) (test vzrr=193) CREATININE (BEAKER) (test 1.63 mg/dL 0.57-1.25 qniz=193) GLUCOSE RANDOM (BEAKER) 350 mg/dL 70-105 (test gnzp=969) CALCIUM (BEAKER) (test 8.4 mg/dL 8.4-10.2 hpjx=782) EGFR (BEAKER) (test 41 mL/min/1.73 sq m ESTIMATED GFR IS NOT bsaq=3650) ACCURATE CREATININE CLEARANCE IN PREDICTING GLOMERULAR FILTRATION RATE. ESTIMATED GFR IS NOT APPLICABLE FOR DIALYSIS PATIENTS. [id number] 23:16:00 Test Item Value Reference Range Comments AMMONIA (BEAKER) (test jzgk=411) 32 mol/L 18-72 HEPATIC FUNCTION [id number] 23:13:00 Test Item Value Reference Range Comments TOTAL PROTEIN (BEAKER) (test phia=409) 5.9 gm/dL 6.0-8.3 ALBUMIN (BEAKER) (test eeat=9574) 3.3 g/dL 3.5-5.0 BILIRUBIN TOTAL (BEAKER) (test vbju=830) 0.7 mg/dL 0.2-1.2 BILIRUBIN DIRECT (BEAKER) (test avst=157) 0.3 mg/dL 0.1-0.5 ALKALINE PHOSPHATASE (BEAKER) (test yycw=752) 45 U/L 40-150 AST (SGOT) (BEAKER) (test kpum=909) 50 U/L 5-34 ALT (SGPT) (BEAKER) (test eefo=939) 20 U/L 6-55 CBC W/PLT COUNT & AUTO [id number] 22:55:00 Test Item Value Reference Range Comments WHITE BLOOD CELL COUNT (BEAKER) (test jbmu=693) 21.6 K/ L 3.5-10.5 RED BLOOD CELL COUNT (BEAKER) (test kfme=922) 2.32 M/ L 4.63-6.08 HEMOGLOBIN (BEAKER) (test qkng=649) 7.3 GM/DL 13.7-17.5 HEMATOCRIT (BEAKER) (test yuuz=296) 22.9 % 40.1-51.0 MEAN CORPUSCULAR VOLUME (BEAKER) (test keoj=817) 98.7 fL 79.0-92.2 MEAN CORPUSCULAR HEMOGLOBIN (BEAKER) (test 31.5 pg 25.7-32.2 jfmc=830) MEAN CORPUSCULAR HEMOGLOBIN CONC (BEAKER) (test 31.9 GM/DL 32.3-36.5 bvlm=073) RED CELL DISTRIBUTION WIDTH (BEAKER) (test 18.3 % 11.6-14.4 eilg=205) PLATELET COUNT (BEAKER) (test olqe=135) 240 K/CU MM 150-450 MEAN PLATELET VOLUME (BEAKER) (test nlet=529) 10.2 fL 9.4-12.4 NUCLEATED RED BLOOD CELLS (BEAKER) (test 6 /100 WBC 0-0 rshq=438) [id number] 22:52:00 Test Item Value Reference Range Comments MAGNESIUM (BEAKER) (test tqcb=644) 2.4 mg/dL 1.6-2.6 [id number] 22:52:00 Test Item Value Reference Range Comments PHOSPHORUS (BEAKER) (test vbgc=965) 4.5 mg/dL 2.3-4.7 [id number] 22:49:00 Test Item Value Reference Range Comments FIBRINOGEN LEVEL (BEAKER) (test swzy=695) 390 mg/dl 225-434 RAD, ABDOMEN/KUB, 1 VIEW [id number] 22:46:00Reason for exam:->abdominal painShould this be performed at the bedside?->YesFINAL REPORT Abdomen x-ray Clinical Diagnosis: Abdomen painComparison: No comparisonViews: One Report:Abdomen:There is a nonspecific bowel gas pattern. There is no evidence ofGI tract obstruction. The visible regional skeleton is degenerative. The patient is status post cholecystectomy . Marked atherosclerotic calcification is noted within the vascular changes in the leftiliac vasculature . . There is no mural edema or definite free intraperitoneal air. There is no evidence of organomegaly Impression: Nonspecific abdomen exam Signed: Angeles Sánchez Verified Date/Time: 05/30 22:46:58 Reading Location: [address] Consult Reading Room RAD, CHEST, 1 VIEW, NON [id number] 22:45:00Post-intubationReason for exam:-> tachypneaShould this be performed at the bedside?->YesFINAL REPORT Chest x-ray Clinical History: tachypnea Comparison: No comparison Views: 1 Chest x-ray:The cardiac and mediastinal silhouettes are enlarged with a left ventricular configuration. There is no evidence of a pneumothorax. There is no evidence of a pleural effusion.There is no evidence of overt cardiac failure. The visible regional skeleton is intact. There is evidence of a left lower lobe retrocardiac space focal parenchymal opacity. There is a left subclavian pacemaker with two leads. Sternotomy changes are noted. Impression: Cardiomegaly with left lowerlobe retrocardiac space atelectasis or pneumonia. Signed: Angeles Sánchezort Verified Date/Time: 05/30/2017 22:45: 22 Reading Location: [address] Consult Reading Room PROTHROMBIN [id number] 22:44:00 Test Item Value Reference Range Comments PROTIME (BEAKER) (test mddg=940) 22.6 seconds 11.7-14.7 INR (BEAKER) (test gkvw=458) 2.0 <=5.9 RECOMMENDED COUMADIN/WARFARIN INR THERAPY RANGESSTANDARD DOSE: 2.0 - 3.0 Includes: PROPHYLAXIS forvenous thrombosis, systemic embolization; TREATMENT for venous thrombosis and/or pulmonary embolus.HIGH RISK: Target INR is 2.5-3.5 for patients with mechanical heart valves.URINALYSIS W/ [id number] 22 :34:00 Test Item Value Reference Range Comments COLOR (BEAKER) (test novj=997) Light Yellow CLARITY (BEAKER) (test olfy=472) Clear SPECIFIC GRAVITY UA (BEAKER) (test vhvj=229) 1.011 1.001-1.035 PH UA (BEAKER) (test gmfk=474) 5.0 5.0-8.0 PROTEIN UA (BEAKER) (test vtwb=102) Negative Negative GLUCOSE UA (BEAKER) (test lbfk=583) Negative Negative KETONES UA (BEAKER) (test hrcm=124) Negative Negative BILIRUBIN UA (BEAKER) (test hzrq=836) Negative Negative BLOOD UA (BEAKER) (test wvcq=722) Moderate Negative NITRITE UA (BEAKER) (test mliz=446) Negative Negative LEUKOCYTE ESTERASE UA (BEAKER) (test fzxu=991) Negative Negative UROBILINOGEN UA (BEAKER) (test pbno=857) 0.2 mg/dL 0.2-1.0 RBC UA (BEAKER) (test cmbs=452) 12 /HPF WBC UA (BEAKER) (test atrk=604) 8 /HPF BACTERIA (BEAKER) (test mohx=858) Occasional MUCUS (BEAKER) (test ofpg=2068) Rare SOURCE(BEAKER) (test ctgu=8845) Urine, Erazo BLOOD GAS, [id number] 22:25:00 Test Item Value Reference Range Comments PH VENOUS (BEAKER) (test iaeg=149) 7.37 7.32-7.42 PCO2 VENOUS (BEAKER) (test moaq=125) 40 mmHg 41-51 PO2 VENOUS (BEAKER) (test khcm=867) 20 mmHg 25-40 O2 SATURATION VENOUS (BEAKER) (test krkf=796) 31.7 % 40.0-70.0 HCO3 VENOUS (BEAKER) (test ifgh=213) 22 mmol/L 21-29 BASE EXCESS VENOUS (BEAKER) (test ghco=196) -2.8 mmol/L -2.0-3.0 PATIENT TEMPERATURE (BEAKER) (test uopp=1989) 36.6 C CALCIUM, [id number] 22:23:00 Test Item Value Reference Range Comments CALCIUM IONIZED (BEAKER) (test mekv=327) 1.12 mmol/L 1.12-1.27 PH, BLOOD (BEAKER) (test lrsd=1778) 7.36
[2018-05-04 10:00] LABS: Absolute Lymphocytes (CBC) 0.5 K/uL (0.7-4.9); Absolute Monocytes 1.1 K/uL (0.1-1.3); Absolute Neutrophil 14.8 K/uL (1.8-8.0); Basophils % 0.3 % (0-1.3); Hematocrit 31.1 % (39.6-49.0); Lymphocytes % 3.2 % (15.3-44.8); MPV 8.4 fL (7.6-11.3); Monocytes % 6.5 % (3.3-12.3); RBC Red Blood Cell Count 3.59 M/uL (4.33-5.43)
[2018-05-04] MEDS ORDERED: NA CHLORIDE 0.9% 500 ML ONE ×2 (10:21→11:43)
[2018-05-04 10:24] LABS: Troponin (Emerg Dept Use Only) 0.05 ng/mL (0.0-0.045)
[2018-05-04] MEDS ORDERED: CEFTRIAXONE/SWI 1gm 1 GM/10 ML SYR ONE (10:43)
--- NOTE | 2018-05-04 10:56 | RAD REPORT ---
EXAM DESCRIPTION: RAD - Chest Single View - 05/04/2018 9:52 am CLINICAL HISTORY: Cough COMPARISON: June 2016 TECHNIQUE: AP portable chest image was obtained 0948 hours . FINDINGS: Lung volumes are low. No peripheral mass, consolidation or failure finding. Pacemaker is i n place. Heart size normal for portable imaging and stable. No acute vascular engorgement. No measura ble pleural effusion and no pneumothorax. No acute bony abnormality seen. No acute aortic findings blanc spected. IMPRESSION: Shallow inspiration film with no acute cardiopulmonary finding. No significant change from comparison.
--- NOTE | 2018-05-04 11:19 | ER ---
Nurse's Notes [facility] Name: Javan Burrows Age: 83 yrs Sex: Male : 1935 Arrival Date: 05/04/2018 Time: 09:33 Bed 7 Private MD: Rocco Valle Diagnosis: Other specified sepsis;Urinary tract infection, site not specified;Dehydration Presentation: 05/04 09:41 Presenting complaint: EMS states: Urinary Incontinence, recently diagnosed with UTI and sg started on Abx Tx, PCP concerned medication not working and was considering hospitlaization for IV Abx, pt reports having urinary frequency, denies N/V/D, reports chills at this time. Transition of care: patient was not received from another setting of care. Onset of symptoms was May 04, 2018. Risk Assessment: Do you want to hurt yourself or someone else? Patient reports no desire to harm self or others. Initial Sepsis Screen: Does the patient meet any 2 criteria? RR > 20 per min. HR > 90 bpm. Yes Does the patient have a suspected source of infection? Yes: Dysuria/Frequency/Urgency/UTI If YES to both, name of provider notified: Ranjeet Parker MD Care prior to arrival: Medication(s) given: Normal saline infusion, 1000 mL, IV Tylenol IV initiated. 20 GA, in the right antecubital area, Glucose check: 136 Oxygen administered. via nasal cannula. 09:41 Method Of Arrival: EMS: [facility] 09:41 Acuity: GOLDIE 2 sg Historical: - Allergies: 09:41 NKA; sg - Home Meds: 09:41 potassium chloride 20 mEq Oral TbTQ 1 tab once daily [Active]; allopurinol 300 mg oral sg tab 1 tab once daily [Active]; carvedilol 12.5 mg Oral tab 1 tab 2 times per day [Active]; furosemide 40 mg Oral tab 1 tab 2 times per day [Active]; atorvastatin 40 mg oral tab 1 tab once daily [Active]; glimepiride 4 mg oral tab 1 tab once daily [Active]; tamsulosin 0.4 mg oral cp24 1 cap once daily [Active]; aspirin 81 mg Oral chew 1 tab once daily [Active]; tolterodine 2 mg oral cp24 1 cap once daily [Active]; atorvastatin 40 mg oral tab 1 tab once daily [Active]; - PMHx: 09:41 Diabetes - NIDDM; Gout; Hypertension; Myocardial infarction; A-Fib; sg - PSHx: 09:41 Vasectomy; CABG; Cholecystectomy; Left knee replacement; Left shoulder; Quadruple sg Bypass; R BKA; - Immunization history:: Adult Immunizations not up to date. - Social history:: Smoking status: Patient/guardian denies using tobacco. - Ebola Screening: : Patient negative for fever greater than or equal to 101.5 degrees Fahrenheit, and additional compatible Ebola Virus Disease symptoms Patient denies exposure to infectious person Patient denies travel to an Ebola-affected area in the 21 days before illness onset No symptoms or risks identified at this time. - Family history:: not pertinent. - Hospitalizations: : No recent hospitalization is reported. Screenin:40 Abuse screen: Denies threats or abuse. Denies injuries from another. Nutritional sg screening: No deficits noted. Tuberculosis screening: No symptoms or risk factors identified. Never had TB. Fall Risk None identified. Assessment: 09:40 General: Appears in no apparent distress. ill, unkempt, well developed, well nourished, sg Behavior is calm, cooperative, appropriate for age. Pain: Denies pain. Neuro: Level of Consciousness is awake, alert, obeys commands, Oriented to person, place, time, situation, Space [employer] Director are equal bilaterally Moves all extremities. Speech is normal, Facial symmetry appears normal, Pupils are PERRLA, Reports weakness. Cardiovascular: Heart tones S1 S2 present Capillary refill is brisk in bilateral fingers Patient's skin is warm and dry. Chest pain is denied. Respiratory: Airway is patent Respiratory effort is even, Respiratory pattern is symmetrical, tachypnea. GI: Abdomen is round non-distended, obese, Bowel sounds present X 4 quads. Reports normal bowel habits, tolerance of fluids, tolerance of food. : Reports incontinence, urinary frequency. EENT: No signs and/or symptoms were reported regarding the EENT system. Derm: Skin is intact, is healthy with good turgor, is thin, Skin is dry, Skin is pale, Skin temperature is warm. Musculoskeletal: Swelling absent R BKA, pt reports sx was years ago, no bleeding/drainage reported. 10:23 General: Appears in no apparent distress. uncomfortable, ill, unkempt, Behavior is aj1 calm, cooperative, appropriate for age. Pain: Denies pain. Neuro: Level of Consciousness is awake, alert, obeys commands, Oriented to person, place, time, situation, Moves all extremities. Speech is normal, Facial symmetry appears normal. Cardiovascular: Patient's skin is warm and dry. Rhythm is irregular. Respiratory: Airway is patent Respiratory effort is even, unlabored, Respiratory pattern is regular, symmetrical, tachypnea. GI: Abdomen is round non-distended. : Reports incontinence, urinary frequency. Derm: Skin is dry, Skin is pale, Skin temperature is warm. Musculoskeletal: Amputation of right lower leg. 11:30 Reassessment: Patient and/or family updated on plan of care and expected duration. Pain aj1 level reassessed. General: Appears in no apparent distress. uncomfortable, Behavior is calm, cooperative, appropriate for age. Pain: Denies pain. Neuro: Level of Consciousness is awake, alert, obeys commands. Cardiovascular: Patient's skin is warm and dry. Rhythm is irregular. Respiratory: Airway is patent Respiratory effort is even, unlabored, Respiratory pattern is regular, symmetrical. Respiratory: Breath sounds are clear bilaterally. Derm: Skin is pale. 12:09 Reassessment: Patient appears in no apparent distress at this time. No changes from aj1 previously documented assessment. Patient and/or family updated on plan of care and expected duration. Pain level reassessed. Patient is alert, oriented x 3, equal unlabored respirations, skin warm/dry/pink. 13:03 Reassessment: Patient has just completed IV fluid bolus, will monitor patient to ensure aj1 that BP does not drop prior to admitting patient to inpatient floor. 14:19 Reassessment: Patient and/or family updated on plan of care and expected duration. Pain aj1 level reassessed. Attempted to call report to 2nd floor, phone is busy at this time. Will reattempt. General: Appears in no apparent distress. uncomfortable, ill, Behavior is calm, cooperative, appropriate for age. Neuro: Level of Consciousness is awake, alert, obeys commands, Speech is normal, Facial symmetry appears normal. Cardiovascular: Patient's skin is warm and dry. Rhythm is irregular. Respiratory: Airway is patent Respiratory effort is even, unlabored, Respiratory pattern is regular, symmetrical. Derm: Skin is pale. 15:23 Reassessment: Patient appears in no apparent distress at this time. No changes from aj1 previously documented assessment. Patient and/or family updated on plan of care and expected duration. Pain level reassessed. Patient is alert, oriented x 3, equal unlabored respirations, skin warm/dry/pink. Vital Signs: 09:34 BP 126 / 65; Pulse 127 MON; Resp 20; Pulse Ox 91% on R/A; Weight 108.86 kg (R); Pain sg 4/10; 09:35 Temp 98.9; Pulse Ox 95% on 2 lpm NC; sg 10:17 BP 96 / 44; Pulse 102; Resp 20; Pulse Ox 94% on 2 lpm NC; aj1 10:23 BP 96 / 48; Pulse 108; Resp 20; Pulse Ox 94% on 2 lpm NC; aj1 10:36 BP 103 / 51; Pulse 97; Resp 22; Pulse Ox 93% on 2 lpm NC; aj1 11:00 BP 108 / 40; Pulse 104; Resp 22; Pulse Ox 95% on 2 lpm NC; aj1 11:30 BP 113 / 65; Pulse 99; Resp 16; Pulse Ox 95% on 2 lpm NC; aj1 12:00 BP 105 / 43; Pulse 90; Resp 18; Pulse Ox 95% on 2 lpm NC; aj1 12:28 BP 112 / 48; Pulse 91; Resp 13; Pulse Ox 94% on 2 lpm NC; aj1 13:03 BP 110 / 47; Pulse 99; Resp 26; Pulse Ox 94% on 2 lpm NC; aj1 13:30 BP 118 / 48; Pulse 89; Resp 18; Pulse Ox 95% on R/A; aj1 14:00 BP 106 / 45; Pulse 87; Resp 20; Pulse Ox 95% on R/A; aj1 14:30 BP 103 / 43; Pulse 88; Resp 18; Pulse Ox 96% on 2 lpm NC; aj1 15:00 BP 122 / 50; Pulse 90; Resp 20; Pulse Ox 96% on 2 lpm NC; aj1 15:22 BP 114 / 46; Pulse 87; Resp 13; Pulse Ox 95% on 2 lpm NC; aj1 ED Course: 09:30 First set of blood cultures drawn by me. jb1 09:33 Patient arrived in ED. iw 09:34 Arm band placed on. sg 09:36 Ranjeet Parker MD is Attending Physician. rn 09:44 Triage completed. sg 09:44 Hilton Cordova, AGUSTINA is Primary Nurse. sg 09:45 Second set of blood cultures drawn by me. jb1 09:48 No provider procedures requiring assistance completed. Flu and/or RSV swab sent to lab. sg Maintain EMS IV. Dressing intact. Site clean \T\ dry. Gauge \T\ site: 20 RAC. IV is patent, is intact, with good blood return, Flushed right antecubital with 5 ml normal saline. 09:51 Chest Single View XRAY In Process Unspecified. EDMS 09:51 X-ray completed. Portable x-ray completed in exam room. Patient tolerated procedure jb2 well. 09:51 Initial lab(s) drawn, by me, sent to lab. Inserted saline lock: 20 gauge in right jb1 antecubital area, using aseptic technique. Blood collected. 09:52 Rocco Valle DO is Private Physician. sg 11:18 David Kimball MD is Hospitalizing Provider. rn 11:59 Urine collected: straight cath specimen, cloudy, cooper colored. jb1 15:21 Report given to AGUSTINA Crow on 2nd floor. aj1 15:25 Patient has correct armband on for positive identification. aj1 15:25 Patient admitted, IV remains in place. aj1 Administered Medications: 10:17 Drug: NS 0.9% 500 ml Route: IV; Rate: bolus; Site: right antecubital; aj1 11:00 Follow up: IV Status: Completed infusion; IV Intake: 500ml aj1 12:02 Drug: NS 0.9% 500 ml Route: IV; Rate: bolus; Site: right forearm; aj1 12:30 Follow up: IV Status: Completed infusion; IV Intake: 500ml aj1 12:02 Drug: Rocephin - (cefTRIAXone) 1 grams Route: IVPB; Infused Over: 30 mins; Site: right aj1 forearm; 12:30 Follow up: IV Status: Completed infusion aj1 12:08 CANCELLED (Physician Discretion): NS 0.9% 500 ml IV at bolus once aj1 Intake: 11:00 IV: 500ml; Total: 500ml. aj1 12:30 IV: 500ml; Total: 1000ml. aj1 Outcome: 11:19 Decision to Hospitalize by Provider. rn 15:26 Admitted to [facility]/surg accompanied by tech, via stretcher, with oxygen, with chart. aj1 15:26 Condition: stable 15:26 Discharge instructions given to patient, family, Instructed on the need for admit, Demonstrated understanding of instructions. 15:42 Patient left the ED. aj1 Signatures: Dispatcher [employer] EDMS Bill Hancock jb1 Macie Carroll RN RN aj1 Hilton Cordova RN RN sg Buechter, Jesse jb2 Nita Boateng RN RN iw Nieto, Roman, MD MD rn
--- NOTE | 2018-05-04 11:19 | EDPHYS ---
Physician Documentation [facility] Name: Javan Burrows Age: 83 yrs Sex: Male : 1935 Arrival Date: 05/04/2018 Time: 09:33 Bed 7 Private MD: Rocco Valle ED Physician Ranjeet Parker HPI: 05/04 09:45 This 83 yrs old Male presents to ER via EMS with complaints of fever. rn 09:45 The patient reports fever, that was measured at 102 degrees Fahrenheit. Onset: The rn symptoms/episode began/occurred 3 day(s) ago. Modifying factors: there are no obvious modifying factors. Associated signs and symptoms: Pertinent positives: cough. Severity of symptoms: At their worst the symptoms were moderate in the emergency department the symptoms are unchanged. It is unknown whether or not the patient has had similar symptoms in the past. Reports fever to 102 for 2-3 days, seen by pcp, being treated for UTI, + increased urinary frequency and smell, + mild cough, no abd pain/vomiting/diarrhea. + generalized weakness. Ambulatory and urinates without catheter. . Historical: - Allergies: 09:41 NKA; sg - Home Meds: 09:41 potassium chloride 20 mEq Oral TbTQ 1 tab once daily [Active]; allopurinol 300 mg oral sg tab 1 tab once daily [Active]; carvedilol 12.5 mg Oral tab 1 tab 2 times per day [Active]; furosemide 40 mg Oral tab 1 tab 2 times per day [Active]; atorvastatin 40 mg oral tab 1 tab once daily [Active]; glimepiride 4 mg oral tab 1 tab once daily [Active]; tamsulosin 0.4 mg oral cp24 1 cap once daily [Active]; aspirin 81 mg Oral chew 1 tab once daily [Active]; tolterodine 2 mg oral cp24 1 cap once daily [Active]; atorvastatin 40 mg oral tab 1 tab once daily [Active]; - PMHx: 09:41 Diabetes - NIDDM; Gout; Hypertension; Myocardial infarction; A-Fib; sg - PSHx: 09:41 Vasectomy; CABG; Cholecystectomy; Left knee replacement; Left shoulder; Quadruple sg Bypass; R BKA; - Immunization history:: Adult Immunizations not up to date. - Social history:: Smoking status: Patient/guardian denies using tobacco. - Ebola Screening: : Patient negative for fever greater than or equal to 101.5 degrees Fahrenheit, and additional compatible Ebola Virus Disease symptoms Patient denies exposure to infectious person Patient denies travel to an Ebola-affected area in the 21 days before illness onset No symptoms or risks identified at this time. - Family history:: not pertinent. - Hospitalizations: : No recent hospitalization is reported. 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 Eyes: Pupils equal round and reactive to light, extra-ocular motions intact. Lids and lashes normal. Conjunctiva and sclera are non-icteric and not injected. Cornea within normal limits. Periorbital areas with no swelling, redness, or edema. ENT: dry MM Cardiovascular: Tachycardic, irregular, no murmur Respiratory: + mild tachypnea, crackles at bases, no retractions, speaking full sentences Abdomen/GI: soft, non-tender MS/ Extremity: No cyanosis. RLE amputation, LLE without signs of cellulitis. Neuro: Awake, GCS 15, oriented to person, place, time, and situation. Cranial nerves II-XII grossly intact. Motor strength 4/5 in all extremities. Sensory grossly intact. Vital Signs: 09:34 BP 126 / 65; Pulse 127 MON; Resp 20; Pulse Ox 91% on R/A; Weight 108.86 kg (R); Pain sg 4/10; 09:35 Temp 98.9; Pulse Ox 95% on 2 lpm NC; sg 10:17 BP 96 / 44; Pulse 102; Resp 20; Pulse Ox 94% on 2 lpm NC; aj1 10:23 BP 96 / 48; Pulse 108; Resp 20; Pulse Ox 94% on 2 lpm NC; aj1 10:36 BP 103 / 51; Pulse 97; Resp 22; Pulse Ox 93% on 2 lpm NC; aj1 11:00 BP 108 / 40; Pulse 104; Resp 22; Pulse Ox 95% on 2 lpm NC; aj1 11:30 BP 113 / 65; Pulse 99; Resp 16; Pulse Ox 95% on 2 lpm NC; aj1 12:00 BP 105 / 43; Pulse 90; Resp 18; Pulse Ox 95% on 2 lpm NC; aj1 12:28 BP 112 / 48; Pulse 91; Resp 13; Pulse Ox 94% on 2 lpm NC; aj1 13:03 BP 110 / 47; Pulse 99; Resp 26; Pulse Ox 94% on 2 lpm NC; aj1 13:30 BP 118 / 48; Pulse 89; Resp 18; Pulse Ox 95% on R/A; aj1 14:00 BP 106 / 45; Pulse 87; Resp 20; Pulse Ox 95% on R/A; aj1 14:30 BP 103 / 43; Pulse 88; Resp 18; Pulse Ox 96% on 2 lpm NC; aj1 15:00 BP 122 / 50; Pulse 90; Resp 20; Pulse Ox 96% on 2 lpm NC; aj1 15:22 BP 114 / 46; Pulse 87; Resp 13; Pulse Ox 95% on 2 lpm NC; aj1 MDM: 09:36 Patient medically screened. rn 10:24 ED course: Slower than normal fluid resuscitation due to afib/likely CHF and hypoxia. . rn 11:16 Differential diagnosis: viral Infection, bacterial infection, pneumonia UTI. Data rn reviewed: vital signs, nurses notes, lab test result(s), radiologic studies, and as a result, I will admit patient. Counseling: I had a detailed discussion with the patient and/or guardian regarding: the historical points, exam findings, and any diagnostic results supporting the discharge/admit diagnosis, lab results, radiology results, the need for further work-up and treatment in the hospital. Response to treatment: the patient's symptoms have mildly improved after treatment, and as a result, I will admit patient. Admission orders: after a detailed discussion of the patient's condition and case, the admit orders are written by me. ED course: HR and BP responsive to fluids, will continue rehydration, admitted to Dr. Kimball for sepsis, likely urosepsis.. 05/04 09:40 Order name: Urine Culture rn 05/04 09:40 Order name: Basic Metabolic Panel rn 05/04 09:40 Order name: Blood Culture Adult (2) rn 05/04 09:40 Order name: CBC with Diff rn 05/04 09:40 Order name: Lactate rn 05/04 09:40 Order name: Procalcitonin rn 05/04 09:40 Order name: Troponin (emerg Dept Use Only); Complete Time: 10:28 rn 05/04 09:40 Order name: Urine Microscopic Only rn 05/04 09:40 Order name: Flu; Complete Time: 10:30 rn 05/04 09:40 Order name: Urine Culture EDMN 05/04 09:40 Order name: Basic Metabolic Panel; Complete Time: 10:28 EDMN 05/04 09:40 Order name: Blood Culture [facility] 05/04 09:40 Order name: CBC with Automated Diff [facility] 05/04 09:40 Order name: Lactate; Complete Time: 10:28 EDMN 05/04 09:40 Order name: Chest Single View XRAY; Complete Time: 10:59 rn 05/04 09:40 Order name: Accucheck; Complete Time: 09:52 rn 05/04 09:40 Order name: Cardiac monitoring; Complete Time: 09:52 rn 05/04 09:40 Order name: EKG - Nurse/Tech; Complete Time: 09:52 05/04 09:40 Order name: IV Saline Lock - Large Bore; Complete Time: 09:52 rn 05/04 09:40 Order name: Labs collected and sent; Complete Time: 09:52 rn 05/04 09:40 Order name: O2 Per Protocol; Complete Time: 09:44 rn 05/04 09:40 Order name: O2 Sat Monitoring; Complete Time: 09:44 rn 05/04 09:40 Order name: Procalcitonin; Complete Time: 10:36 EDMN 05/04 10:03 Order name: Manual Differential EDMN 05/04 12:01 Order name: Urine Dipstick--Ancillary (enter results) ms 05/04 13:39 Order name: Urine Dipstick-Ancillary EDMN 05/04 09:40 Order name: Urine Dipstick-Ancillary (obtain specimen); Complete Time: 12:00 rn Administered Medications: 10:17 Drug: NS 0.9% 500 ml Route: IV; Rate: bolus; Site: right antecubital; aj1 11:00 Follow up: IV Status: Completed infusion; IV Intake: 500ml aj1 12:02 Drug: NS 0.9% 500 ml Route: IV; Rate: bolus; Site: right forearm; aj1 12:30 Follow up: IV Status: Completed infusion; IV Intake: 500ml aj 12:02 Drug: Rocephin - (cefTRIAXone) 1 grams Route: IVPB; Infused Over: 30 mins; Site: right aj1 forearm; 12:30 Follow up: IV Status: Completed infusion aj1 12:08 CANCELLED (Physician Discretion): NS 0.9% 500 ml IV at bolus once aj1 Disposition: 05/04/18 11:19 Hospitalization ordered by David Kimball for Inpatient Admission. Preliminary diagnosis are Other specified sepsis, Urinary tract infection, site not specified, Dehydration. - Bed requested for Telemetry/MedSurg (Inpatient). - Status is Inpatient Admission. aj1 - Condition is Stable. - Problem is new. - Symptoms have improved. UTI on Admission? Yes Critical care time excluding procedures: 11:16 Critical care time: Bedside Care: 25 minutes, Consultation: 5 minutes, Family rn Intervention: 5 minutes. Total time: 35 minutes Signatures: Dispatcher [employer] EDMS Macie Carroll RN RN aj1 Valerie Cuadra RN RN dw Gay, Steven, RN RN sg Nieto, Roman, MD MD rn Botello, Elizabeth eb Corrections: (The following items were deleted from the chart) 11:40 11:19 Hospitalization Ordered by David Kimball MD for Inpatient Admission. Preliminary dw diagnosis is Other specified sepsis; Urinary tract infection, site not specified; Dehydration. Bed requested for Telemetry/MedSurg (Inpatient). Status is Inpatient Admission. Condition is Stable. Problem is new. Symptoms have improved. UTI on Admission? Yes. rn 11:42 11:40 05/04/2018 11:19 Hospitalization Ordered by David Kimball MD for Inpatient eb Admission. Preliminary diagnosis is Other specified sepsis; Urinary tract infection, site not specified; Dehydration. Bed requested for Telemetry/MedSurg (Inpatient). Status is Inpatient Admission. Condition is Stable. Problem is new. Symptoms have improved. UTI on Admission? Yes. dw 12:08 11:38 NS 0.9% 500 ml IV at bolus once ordered. rn aj1 15:42 11:42 05/04/2018 11:19 Hospitalization Ordered by David Kimball MD for Inpatient aj1 Admission. Preliminary diagnosis is Other specified sepsis; Urinary tract infection, site not specified; Dehydration. Bed requested for Telemetry/MedSurg (Inpatient). Status is Inpatient Admission. Condition is Stable. Problem is new. Symptoms have improved. UTI on Admission? Yes. eb
[2018-05-04 11:33] LABS: Blood Morphology Comment NOT SEEN (NOT SEEN); Platelet Estimate ADEQ
[2018-05-04 13:39] LABS: Urine Blood 3+ (NEG); Urine Glucose NEGATIVE (NEG); Urine Protein 2+ (NEG); Urine pH 5.5 (5.0-7.0)
[2018-05-04 16:01] VITALS: BMI 29.5
[2018-05-04] MEDS: ENOXAPARIN 40 MG/0.4 ML SQ SCH (17:54)
--- NOTE | 2018-05-04 18:17 | P.HP ---
Certification for Inpatient Patient admitted to: Inpatient With expected LOS: >2 Midnights Practitioner: I am a practitioner with admitting privileges, knowledge of patient current condition, hospital course, and medical plan of care. Services: Services provided to patient in accordance with Admission requirements found in Title 42 Section 412.3 of the Code of Federal Regulations Patient History Date of Service: 05/04/18 Primary Care Provider: Dr. Valle [facility] Reason for admission: Sepsis History of Present Illness: This is a 83 yr old male with a PMH of CAD s/p CABG x 4, pacemaker in place, HLD , Gout, DM2, BPH who presented to the ER via ambulance with confusion, generalized weakness, fevers and chills for the past few days. HIs son, at bedside, stated that patient lives alone but has a cargiver who comes to the house. This am, he tried to call and pt did not answer his phone therefore he went over to his house. He was found lethargic, confused and weak. So EMS was called. Patient has completed a 10 course of antibiotic for infection that they are not sure what. In the ER< his BP was on the lower end, he as tachycardic. Labs were remarkable for procal of 11.75, WBC count of 16.5, Cr of 2.39 and a normal lactic acid of 1.2. At the time of my exam, patient was AAOx3, in no acute distress, eating his meal without any concerns. Son at bedside stated that he looks much better and almost 75% back to his baseline. He was hemodynamically stable. Allergies No Known Drug Allergies Allergy (Verified 06/09/16 19:08) Unknown No Known Al Allergy (Uncoded 04/23/16 03:12) Unknown No Known Allergies Allergy (Uncoded 05/30/17 20:27) Unknown Home medications list reviewed: Yes Home Medications: Allopurinol [Zyloprim*] 300 mg PO DAILY 05/04/18 Aspirin [Aspirin EC 81 MG] 81 mg PO DAILY 05/04/18 Atorvastatin Calcium [Lipitor] 40 mg PO BEDTIME 05/04/18 Carvedilol [Coreg*] 3.125 mg pe PO BID 6AM 6PM 05/04/18 Furosemide [Lasix] 40 mg PO BIDL 05/04/18 Glimepiride [Amaryl] 4 mg PO DAILY 05/04/18 Potassium Chloride [Klor-Con M20] 20 meq PO DAILY 05/04/18 Tamsulosin [Flomax*] 0.4 mg PO DAILY 05/04/18 Tolterodine Tartrate [Detrol] 2 mg PO DAILY 05/04/18 - Past Medical/Surgical History Has patient received pneumonia vaccine in the past: Yes Diabetic: Yes -: Obesity -: DM Type 2 -: Gout -: HPN -: Afib -: CABG -: NV -: Pacemaker- Defib -: AKA 1994 -: Left knee replacement 2x -: Cholecystectomy -: Bilateral Fempop -: Reverse Vasectomy - Family History Father Notes: cerebral hemorrhage- Mother Notes: heart attack- - Social History Smoking Status: Former smoker Alcohol use: Yes CD- Drugs: No Caffeine use: Yes Place of Residence: Home Review of Systems 10-point ROS is otherwise unremarkable Physical Examination - Vital Signs Temperature: 98.9 F Blood Pressure: 114/46 Pulse: 87 Respirations: 13 - Physical Exam General: Alert, In no apparent distress, Oriented x3 HEENT: Atraumatic, PERRLA, Mucous membr. moist/pink, EOMI, Sclerae nonicteric Neck: Supple, 2+ carotid pulse no bruit, No LAD, Without JVD or thyroid abnormality Respiratory: Clear to auscultation bilaterally, Normal air movement Cardiovascular: Regular rate/rhythm, Normal S1 S2 Gastrointestinal: Normal bowel sounds, No tenderness Musculoskeletal: Other Integumentary: No rashes Neurological: Normal gait, Normal speech, Normal strength at 5/5 x4 extr, Normal tone, Normal affect Lymphatics: No axilla or inguinal lymphadenopathy - Studies Laboratory Data (last 24 hrs) 05/04/18 09:45: WBC 16.5 H, Hgb 10.3 L, Hct 31.1 L, Plt Count 209 05/04/18 09:45: Sodium 132 L, Potassium 5.0, BUN 76 H, Creatinine 2.39 H, Glucose 219 H Microbiology Data (last 24 hrs): 05/04/18 09:48 Nasopharnyx Influenza Type A Antigen Screen - Final 05/04/18 09:48 Nasopharnyx Influenza Type B Antigen Screen - Final Assessment and Plan - Problems (Diagnosis) (1) Sepsis Current Visit: Yes Status: Acute Qualifiers: Sepsis type: sepsis due to unspecified organism Qualified Code(s): A41.9 - Sepsis, unspecified organism (2) CURTIS (acute kidney injury) Current Visit: Yes Status: Acute (3) Generalized weakness Current Visit: No Status: Acute (4) History of right above knee amputation Current Visit: No Status: Acute (5) Overweight (BMI 25.0-29.9) Current Visit: No Status: Acute (6) Benign prostate hyperplasia Current Visit: No Status: Chronic (7) Diabetes Onset Date: 06/10/16 Current Visit: No Status: Chronic Qualifiers: Diabetes mellitus type: type 2 Diabetes mellitus dedicated intermodal truck driver insulin use: without dedicated 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 truck driver use Diabetes mellitus complication status: with unspecified complications Qualified Code(s): E11.8 - Type 2 diabetes mellitus with unspecified complications (8) Hyperlipidemia Current Visit: No Status: Chronic Qualifiers: Hyperlipidemia type: unspecified Qualified Code(s): E78.5 - Hyperlipidemia , unspecified (9) Hypertension Current Visit: No Status: Chronic Qualifiers: Hypertension type: essential hypertension Qualified Code(s): I10 - Essential (primary) hypertension (10) Pacemaker Current Visit: No Status: Chronic (11) S/P CABG x 4 Current Visit: No Status: Chronic - Plan Patient Problems: Sepsis UTI IV antibiotics Follow up cultures Hold IVF d/t hx of CHF. Patient eating and drinking well Generalized weakness (Acute) R53.1 PT consult Benign prostate hyperplasia (Chronic) N40.0 Stable, Start home medications. Diabetes (Chronic 06/10/16) E11.9 Accuchecks, mild sliding scale Hyperlipidemia (Chronic) E78.5 Stable, Start home medications. Hypertension (Chronic) I10 Stable, Start home medications. S/P CABG x 4 (Chronic) Pacemaker (Chronic) Z95.0 Stable, Start home medications. Gout Stable, Start home medications. Overweight (BMI 25.0-29.9) (Acute) E66.3 History of right above knee amputation (Acute) Z89.611 DVT prophylaxis: Lovenox GI prophylaxis: None Diet: Heart healthy Disposition: Admit to floor, monitor labs; Follow up cultures. - Advance Directives Does patient have a Living Will: Yes Does patient have a Durable POA for Healthcare: No Time Spent Managing Pts Care (In Minutes): 55
[2018-05-04] MEDS ORDERED: D50W 25 GM/50 ML SYRINGE IV PRN (18:27)
[2018-05-04] MEDS ORDERED: GLUCAGON 1 MG/VIAL IM PRN (18:27)
[2018-05-04] MEDS: Meropenem 1,000 MG in NA CHLORIDE 0.9% 100 ML IV SCH (20:34)
[2018-05-04] MEDS: ATORVASTATIN 40 MG TAB PO SCH (20:40)
[2018-05-04] MEDS: CARVEDILOL 3.125 MG TAB PO SCH (20:40)
[2018-05-04] MEDS ORDERED: CEFTRIAXONE 1 GM/NS 50 ML 1 GM/50 ML BAG IV SCH (21:00)
[2018-05-04] MEDS: INSULIN -REGULAR HUMAN 50 UNIT/0.5 ML ML SQ SCH (21:00)
[2018-05-04] MEDS ORDERED: ACETAMINOPHEN 500 MG TAB PO PRN (23:24)
[2018-05-05 04:43] LABS: Absolute Lymphocytes (CBC) 0.5 K/uL (0.7-4.9); Absolute Monocytes 0.7 K/uL (0.1-1.3); Absolute Neutrophil 9.1 K/uL (1.8-8.0); Basophils % 0.3 % (0-1.3); Hematocrit 29.1 % (39.6-49.0); Lymphocytes % 4.9 % (15.3-44.8); MPV 8.8 fL (7.6-11.3); Monocytes % 6.7 % (3.3-12.3); RBC Red Blood Cell Count 3.36 M/uL (4.33-5.43)
[2018-05-05 05:06] LABS: Albumin 2.6 g/dL (3.4-5.0); Bilirubin Total 0.6 mg/dL (0.2-1.0); Potassium 4.3 mmol/L (3.5-5.1); Protein, Total 7.1 g/dL (6.4-8.2)
[2018-05-05] MEDS: CARVEDILOL 3.125 MG TAB PO SCH ×2 (06:46→18:35)
[2018-05-05 07:02] LABS: Urine Appearance TURBID; Urine Bilirubin NEGATIVE (NEG); Urine Blood 3+ (NEG); Urine Color YELLOW; Urine Glucose NEGATIVE (NEG); Urine Protein 2+ (NEG); Urine Specific Gravity 1.015 (1.005-1.030); Urine Urobilinogen 0.2 mg/dL (0.2-1.0); Urine pH 5.5 (5.0-7.0)
[2018-05-05 07:04] LABS: Urine Microscopic Reflex ORDER UMIC
[2018-05-05] MEDS: INSULIN -REGULAR HUMAN 50 UNIT/0.5 ML ML SQ SCH ×4 (07:30→21:00)
[2018-05-05 07:42] LABS: Urine Bacteria >50 /HPF (NONE SEEN); Urine Culture Reflex Order NOT NEEDED
[2018-05-05] MEDS: HOME MED 1 EA UNK (Tolterodine Tartrate [Detrol] 2 MG) PO SCH (08:49)
[2018-05-05] MEDS ORDERED: POTASSIUM CHLORIDE 20 MEQ PO SCH (09:00)
[2018-05-05] MEDS: POTASSIUM CL SA 10 MEQ TAB PO SCH (09:33)
[2018-05-05] MEDS: ASPIRIN EC 81 MG TAB PO SCH (09:33)
[2018-05-05] MEDS: ENOXAPARIN 40 MG/0.4 ML SQ SCH (09:34)
[2018-05-05] MEDS: TAMSULOSIN 0.4 MG SR CAP PO SCH (09:34)
[2018-05-05] MEDS: ALLOPURINOL 300 MG TAB PO SCH (09:34)
[2018-05-05] MEDS: FUROSEMIDE 40 MG TABLET PO SCH ×2 (09:34→18:35)
[2018-05-05] MEDS: Meropenem 1,000 MG in NA CHLORIDE 0.9% 100 ML IV SCH ×2 (09:41→21:18)
--- NOTE | 2018-05-05 12:59 | P.PN ---
Subjective Date of Service: 05/05/18 Primary Care Provider: Dr. Valle [facility] Chief Complaint: Sepsis Subjective: No C/O voiced Patient seen and examined at bedside. No family at bedside. Chart reviewed and case discussed with nursing staff. States he is doing well, though seems to be more sleepy. Denies any chest pain , dizziness, shortness of breath, headaches, lightheadedness, GI or complaints at this time. Culture still pending. T-max of 100.9 at 8:00 p.m. last night Review of Systems 10-point ROS is otherwise unremarkable Physical Examination - Vital Signs Temperature: 99.8 F Blood Pressure: 134/51 Pulse: 100 Respirations: 16 Pulse Ox (%): 98 - Physical Exam General: Alert, In no apparent distress, Oriented x3 HEENT: Atraumatic, PERRLA, EOMI Neck: Supple, JVD not distended Respiratory: Clear to auscultation bilaterally, Normal air movement Cardiovascular: Normal S1 S2, Irregular heart rate/rhythm (Tachycardic) Gastrointestinal: Normal bowel sounds, No tenderness Musculoskeletal: No tenderness Integumentary: No rashes Neurological: Normal speech, Normal tone, Normal affect Lymphatics: No axilla or inguinal lymphadenopathy - Studies Microbiology Data (last 24 hrs): 05/04/18 09:48 Nasopharnyx Influenza Type A Antigen Screen - Final 05/04/18 09:48 Nasopharnyx Influenza Type B Antigen Screen - Final Assessment And Plan - Current Problems (Diagnosis) (1) Sepsis Current Visit: Yes Status: Acute Qualifiers: Sepsis type: sepsis due to unspecified organism Qualified Code(s): A41.9 - Sepsis, unspecified organism (2) CURTIS (acute kidney injury) Current Visit: Yes Status: Acute (3) Generalized weakness Current Visit: No Status: Acute (4) History of right above knee amputation Current Visit: No Status: Acute (5) Overweight (BMI 25.0-29.9) Current Visit: No Status: Acute (6) Benign prostate hyperplasia Current Visit: No Status: Chronic (7) Diabetes Onset Date: 06/10/16 Current Visit: No Status: Chronic Qualifiers: Diabetes mellitus type: type 2 Diabetes mellitus alf insulin use: without terminal clerk use Diabetes mellitus complication status: with unspecified complications Qualified Code(s): E11.8 - Type 2 diabetes mellitus with unspecified complications (8) Hyperlipidemia Current Visit: No Status: Chronic Qualifiers: Hyperlipidemia type: unspecified Qualified Code(s): E78.5 - Hyperlipidemia , unspecified (9) Hypertension Current Visit: No Status: Chronic Qualifiers: Hypertension type: essential hypertension Qualified Code(s): I10 - Essential (primary) hypertension (10) Pacemaker Current Visit: No Status: Chronic (11) S/P CABG x 4 Current Visit: No Status: Chronic - Plan Patient Problems: Sepsis UTI Continue IV antibiotics Follow up cultures, pending Hold IVF d/t hx of CHF. Patient eating and drinking well Generalized weakness (Acute) R53.1 PT consult, pending Benign prostate hyperplasia (Chronic) N40.0 Stable, Start home medications. Diabetes (Chronic 06/10/16) E11.9 Accuchecks, mild sliding scale Hyperlipidemia (Chronic) E78.5 Stable, Start home medications. Hypertension (Chronic) I10 Stable, Start home medications. S/P CABG x 4 (Chronic) Pacemaker (Chronic) Z95.0 Stable, Start home medications. Gout Stable, Start home medications. Overweight (BMI 25.0-29.9) (Acute) E66.3 History of right above knee amputation (Acute) Z89.611 DVT prophylaxis: Lovenox GI prophylaxis: None Diet: Heart healthy Disposition: Continue to monitor on the floor, pending cultures.
[2018-05-05] MEDS: ATORVASTATIN 40 MG TAB PO SCH (21:18)
[2018-05-06] MEDS: CARVEDILOL 3.125 MG TAB PO SCH ×2 (05:09→17:57)
[2018-05-06 05:57] LABS: Absolute Lymphocytes (CBC) 0.7 K/uL (0.7-4.9); Absolute Monocytes 0.7 K/uL (0.1-1.3); Basophils % 0.4 % (0-1.3); Eosinophils % 0.2 % (0-4.4); Hematocrit 27.4 % (39.6-49.0); Lymphocytes % 8.7 % (15.3-44.8); MPV 8.7 fL (7.6-11.3); RBC Red Blood Cell Count 3.18 M/uL (4.33-5.43)
[2018-05-06 06:06] LABS: Albumin 2.4 g/dL (3.4-5.0); Bilirubin Total 0.7 mg/dL (0.2-1.0); Potassium 3.8 mmol/L (3.5-5.1)
[2018-05-06] MEDS: INSULIN -REGULAR HUMAN 50 UNIT/0.5 ML ML SQ SCH ×4 (07:30→21:00)
[2018-05-06 07:49] LABS: Phosphorus 2.4 mg/dL (2.5-4.9)
[2018-05-06] MEDS: HOME MED 1 EA UNK (Tolterodine Tartrate [Detrol] 2 MG) PO SCH (09:00)
[2018-05-06] MEDS: Meropenem 1,000 MG in NA CHLORIDE 0.9% 100 ML IV SCH ×2 (10:18→21:19)
[2018-05-06] MEDS: ASPIRIN EC 81 MG TAB PO SCH (10:19)
[2018-05-06] MEDS: FUROSEMIDE 40 MG TABLET PO SCH ×2 (10:19→17:56)
[2018-05-06] MEDS: TAMSULOSIN 0.4 MG SR CAP PO SCH (10:19)
[2018-05-06] MEDS: POTASSIUM CL SA 10 MEQ TAB PO SCH (10:19)
[2018-05-06] MEDS: ENOXAPARIN 40 MG/0.4 ML SQ SCH (10:20)
[2018-05-06] MEDS: ALLOPURINOL 300 MG TAB PO SCH (10:20)
--- NOTE | 2018-05-06 14:20 | P.PN ---
Subjective Date of Service: 05/06/18 Primary Care Provider: Dr. Valle [facility] Chief Complaint: Sepsis Subjective: Improving Patient seen and examined at bedside. No family at bedside. Chart reviewed and case discussed with nursing staff. States he is doing well. Denies any chest pain, dizziness, shortness of breath , headaches, lightheadedness, GI complaints Afebrile overnight, tachycardic and elevated blood pressure. Patient wanted to leave AMA overnight/early this morning. Patient was seen by overnight physician as well as to charge nurse this morning. He was educated, and counseled. He decided he would stay for further treatment as he needs it. Review of Systems 10-point ROS is otherwise unremarkable Physical Examination - Vital Signs Temperature: 98.0 F Blood Pressure: 139/84 Pulse: 100 Respirations: 20 Pulse Ox (%): 96 - Physical Exam General: Alert, In no apparent distress, Oriented x3 HEENT: Atraumatic, PERRLA, EOMI Neck: Supple, JVD not distended Respiratory: Clear to auscultation bilaterally, Normal air movement Cardiovascular: Regular rate/rhythm, Normal S1 S2 Gastrointestinal: Normal bowel sounds, No tenderness Musculoskeletal: No tenderness Integumentary: No rashes Neurological: Normal speech, Normal tone, Normal affect Lymphatics: No axilla or inguinal lymphadenopathy Assessment And Plan - Current Problems (Diagnosis) (1) Sepsis Current Visit: Yes Status: Acute Qualifiers: Sepsis type: sepsis due to unspecified organism Qualified Code(s): A41.9 - Sepsis, unspecified organism (2) CURTIS (acute kidney injury) Current Visit: Yes Status: Acute (3) Generalized weakness Current Visit: No Status: Acute (4) History of right above knee amputation Current Visit: No Status: Acute (5) Overweight (BMI 25.0-29.9) Current Visit: No Status: Acute (6) Benign prostate hyperplasia Current Visit: No Status: Chronic (7) Diabetes Onset Date: 06/10/16 Current Visit: No Status: Chronic Qualifiers: Diabetes mellitus type: type 2 Diabetes mellitus detention insulin use: without detention use Diabetes mellitus complication status: with unspecified complications Qualified Code(s): E11.8 - Type 2 diabetes mellitus with unspecified complications (8) Hyperlipidemia Current Visit: No Status: Chronic Qualifiers: Hyperlipidemia type: unspecified Qualified Code(s): E78.5 - Hyperlipidemia , unspecified (9) Hypertension Current Visit: No Status: Chronic Qualifiers: Hypertension type: essential hypertension Qualified Code(s): I10 - Essential (primary) hypertension (10) Pacemaker Current Visit: No Status: Chronic (11) S/P CABG x 4 Current Visit: No Status: Chronic - Plan Patient Problems: Sepsis UTI Continue IV antibiotics Cultures positive for ESBL E coli. PICC line ordered. Patient will need long- term IV antibiotics. Social work consulted Patient and have outpatient follow up with Dr. Donohue about 1 week ago, he was scheduled for an outpatient PICC line placement already. Generalized weakness (Acute) R53.1 PT consult, pending Benign prostate hyperplasia (Chronic) N40.0 Stable, continue home medications. Diabetes (Chronic 06/10/16) E11.9 Accuchecks, mild sliding scale Hyperlipidemia (Chronic) E78.5 Stable, continue home medications. Hypertension (Chronic) I10 Stable, continue home medications. S/P CABG x 4 (Chronic) Pacemaker (Chronic) Z95.0 Stable, continue home medications. Gout Stable, continue home medications. Overweight (BMI 25.0-29.9) (Acute) E66.3 History of right above knee amputation (Acute) Z89.611 DVT prophylaxis: Lovenox GI prophylaxis: None Diet: Heart healthy Disposition: Continue to monitor on the floor, PICC line placement. Social work consult for home health set up for IV antibiotics..
[2018-05-06] MEDS: POTASS/SODIUM PHOSPHATE 1 PKT POWD.PACK PO SCH ×2 (22:00→23:11)
[2018-05-06] MEDS: ATORVASTATIN 40 MG TAB PO SCH (22:40)
[2018-05-07] MEDS: POTASS/SODIUM PHOSPHATE 1 PKT POWD.PACK PO SCH (00:11)
[2018-05-07] MEDS ORDERED: POTASS/SODIUM PHOSPHATE 1 PKT POWD.PACK PO SCH (01:00)
[2018-05-07] MEDS: MORPHINE 4 MG/ML SYR IV PRN ×2 (01:45→17:11)
[2018-05-07 05:27] LABS: Absolute Lymphocytes (CBC) 0.9 K/uL (0.7-4.9); Absolute Monocytes 0.7 K/uL (0.1-1.3); Absolute Neutrophil 6.3 K/uL (1.8-8.0); Basophils % 0.3 % (0-1.3); Eosinophils % 0.6 % (0-4.4); Hematocrit 25.2 % (39.6-49.0); Lymphocytes % 11.7 % (15.3-44.8); MPV 8.6 fL (7.6-11.3); Monocytes % 8.5 % (3.3-12.3); RBC Red Blood Cell Count 2.94 M/uL (4.33-5.43)
[2018-05-07 05:36] LABS: Albumin 2.2 g/dL (3.4-5.0); Bilirubin Total 0.6 mg/dL (0.2-1.0); Magnesium 1.8 mg/dL (1.8-2.4); Phosphorus 3.1 mg/dL (2.5-4.9); Potassium 4.2 mmol/L (3.5-5.1); Protein, Total 6.6 g/dL (6.4-8.2)
[2018-05-07] MEDS: CARVEDILOL 3.125 MG TAB PO SCH ×2 (06:05→17:08)
[2018-05-07] MEDS: INSULIN -REGULAR HUMAN 50 UNIT/0.5 ML ML SQ SCH ×3 (07:30→16:30)
[2018-05-07] MEDS: HOME MED 1 EA UNK (Tolterodine Tartrate [Detrol] 2 MG) PO SCH (09:00)
[2018-05-07] MEDS ORDERED: MAGNESIUM SULFATE 1 gm IVPB 1 GM/100 ML BAG IV ONE (09:00)
[2018-05-07] MEDS: Meropenem 1,000 MG in NA CHLORIDE 0.9% 100 ML IV SCH (09:42)
[2018-05-07] MEDS: FUROSEMIDE 40 MG TABLET PO SCH ×2 (09:43→17:09)
[2018-05-07] MEDS: ENOXAPARIN 40 MG/0.4 ML SQ SCH (09:43)
[2018-05-07] MEDS: ALLOPURINOL 300 MG TAB PO SCH (09:44)
[2018-05-07] MEDS: ASPIRIN EC 81 MG TAB PO SCH (09:44)
[2018-05-07] MEDS: POTASSIUM CL SA 10 MEQ TAB PO SCH (09:44)
[2018-05-07] MEDS: TAMSULOSIN 0.4 MG SR CAP PO SCH (09:45)
[2018-05-07 12:17] VITALS: O2SAT 98
--- NOTE | 2018-05-07 12:26 | RAD REPORT ---
EXAM DESCRIPTION: RAD - Chest Single View - 05/07/2018 1:45 am CLINICAL HISTORY: The patient is 83 years old and is Male; S/P PICC insertion TECHNIQUE: Frontal view of the chest. COMPARISON: No relevant prior studies available. FINDINGS: LUNGS: Unremarkable. No consolidation. PLEURAL SPACE: Unremarkable. No pneumothorax. HEART: The cardiac silhouette is enlarged. MEDIASTINUM: Unremarkable. BONES/JOINTS: Unremarkable. VASCULATURE: Atherosclerosis of the aorta is present. TUBES, LINES AND DEVICES: A right upper extremity PICC is present with the tip in the SVC. Lila l lead left-sided pacemaker is present. IMPRESSION: 1. A right upper extremity PICC is present with the tip in the SVC. 2. No acute cardiopulmonary process. Electronically signed by: Monik Lynn MD 05/07/2018 1:51 AM CDT Due to temporary technical issues with the PACS/Fluency reporting system, reports are being signed by the in house radiologist as a courtesy to ensure prompt reporting. The interpreting radiologist is f ully responsible for the content of the report.
[2018-05-07 17:12] VITALS: BP 149/63
[2018-05-07] MEDS ORDERED: VANCOMYCIN ORAL SOLN 250 MG/5 ML OSYR PO SCH (18:00)
[2018-05-07 19:05] VITALS: TEMP 97.1
== END 2018-05-07 17:40 | disposition home health service (06) | DRG 872 ==
LOC: ER 09:30 → ERHOLD 11:35 → 2ND 15:22
PROVIDERS: ADMIT Family Medicine; ATTEND Family Medicine
PROC: 02HV33Z Insertion of Infusion Device into Superior Vena Cava, Percutaneous Approach (ICD-10-PCS; principal; 2018-05-07)
PROC: B548ZZA Ultrasonography of Superior Vena Cava, Guidance (ICD-10-PCS; 2018-05-07)
DX: A41.9 Sepsis, unspecified organism (principal); N39.0 Urinary tract infection, site not specified; N17.9 Acute kidney failure, unspecified; I25.10 Atherosclerotic heart disease of native coronary artery without angina pectoris; Z95.1 Presence of aortocoronary bypass graft; Z95.0 Presence of cardiac pacemaker; E78.5 Hyperlipidemia, unspecified; M10.9 Gout, unspecified; N40.1 Benign prostatic hyperplasia with lower urinary tract symptoms; R00.0 Tachycardia, unspecified; E11.9 Type 2 diabetes mellitus without complications; Z79.84 Long term (current) use of oral hypoglycemic drugs; I48.91 Unspecified atrial fibrillation; Z79.01 Long term (current) use of anticoagulants; Z87.891 Personal history of nicotine dependence; R53.1 Weakness; E66.3 Overweight; R65.20 Severe sepsis without septic shock; B96.20 Unspecified Escherichia coli [E. coli] as the cause of diseases classified elsewhere; Z16.12 Extended spectrum beta lactamase (ESBL) resistance
CPT/HCPCS: 36415; 71045; 80048; 80053; 81003; 81015; 82962; 83605; 83735; 84100; 84145; 84484; 85025; 87040; 87077; 87086; 87088; 87186; 87205; 87493; 87804; 94760; 96361; 96365; 97110; 97162; 97530; 99285; J0696; J1650

== ENCOUNTER 2018-06-05 07:22 | Day surgery (SDC) | payer OTHER, BC ==
--- NOTE | 2018-06-01 10:53 | RAD REPORT ---
EXAM DESCRIPTION: Delma Martinez And Dipti (2 Views)06/01/2018 10:44 am CLINICAL HISTORY: preop COMPARISON: May 07, 2018 FINDINGS: The lungs appear clear of acute infiltrate. The heart is mildly enlarged. Pacemaker leads are in place. IMPRESSION: No acute abnormalities displayed
[2018-06-01 11:07] LABS: Urine Appearance CLEAR; Urine Bilirubin NEGATIVE (NEG); Urine Blood NEGATIVE (NEG); Urine Color YELLOW; Urine Glucose NEGATIVE (NEG); Urine Microscopic Reflex NO UMIC; Urine Protein NEGATIVE (NEG); Urine Specific Gravity 1.015 (1.005-1.030); Urine Urobilinogen 0.2 mg/dL (0.2-1.0)
[2018-06-01 11:16] LABS: Potassium 4.2 mmol/L (3.5-5.1)
[2018-06-01 11:20] LABS: Absolute Lymphocytes (CBC) 2.9 K/uL (0.7-4.9); Absolute Monocytes 0.9 K/uL (0.1-1.3); Absolute Neutrophil 3.8 K/uL (1.8-8.0); Basophils % 1.2 % (0-1.3); Eosinophils % 5.4 % (0-4.4); Hematocrit 34.7 % (39.6-49.0); Lymphocytes % 35.4 % (15.3-44.8); MPV 8.5 fL (7.6-11.3); Monocytes % 11.3 % (3.3-12.3)
[2018-06-01 11:22] LABS: Protime INR 1.04
--- OUTSIDE RECORDS SUMMARY | 2018-06-05 07:25 | XMS REPORT | Clinical Summary ---
:1935 Author Organization [facility] Address [address] [place] [address] Care Team Providers Name Role Phone Asked, No Pcp Primary Care Provider Unavailable Allergies Active Allergy Reactions Severity Noted Date Comments No Known Drug Allergies 11/18/2015 Medications Medication Sig Dispensed Refills Start Date End Date Status metFORMIN (GLUCOPHAGE) TAKE BY MOUTH 1/2 0 Active 500 mg tablet TABLET 2 TIMES A DAY glimepiride (AMARYL) 2 Take 2 mg by mouth 3 01/09/2016 Active MG tablet once daily. allopurinol (ZYLOPRIM) Take 100 mg by 0 Active 100 MG tablet mouth daily. folic acid (FOLVITE) 1 Take 1 mg by mouth 0 Active MG tablet daily. furosemide (LASIX) 40 Take 40 mg by 0 Active mg tablet mouth 2 (two) times a day. lisinopril Take 2 tablets (20 60 tablet 0 05/01/2017 Active (PRINIVIL,ZESTRIL) 10 mg total) by mouth mg tablet nightly for 30 days. Active Problems Problem Noted Date Cough [...] Encounters Date Type Specialty Care Team Description 10/26/2017 Refill Internal Medicine Jagjit Hunter, 09/15/2017 Refill Internal Medicine Jagjit Hunter, 09/14/2017 Refill Internal Medicine Jagjit Hunter, 09/12/2017 Refill Internal Medicine Jagjit Hunter, 08/10/2017 Refill Internal Medicine Jagjit Hunter, after 06/04/2017 Immunizations Name Dates Previously Given Next Due [...] travel history available. Last Filed Vital Signs Not on file Plan of Treatment Health Maintenance Due Date Last Done Comments DIABETIC RETINAL EYE EXAM 1935 DIABETIC FOOT EXAM 1945 SHINGLES VACCINES (#1) 1987 65+ PNEUMOCOCCAL VACCINE (2 of 2 - PCV13) 06/22/2011 06/21/2010 INFLUENZA VACCINE 09/06/2018 12/25/2008, 12/12/2007 PNEUMOCOCCAL POLYSACCHARIDE VACCINE AGE 65 Completed 06/21/2010 AND OVER Results Not on fileafter 06/04/2017 Insurance Payer Benefit Plan / Group Subscriber ID Type Phone Address MEDICARE MEDICARE PART A AND B xxxxxxxxxx Medicare [place], [place] BCBS BCBS CHOICE PPO/FEDERAL EMPL PPO xxxxxxxxxxxx PPO (Work) [phone] Advance Directives Patient has advance care planning documents on file. For more information, please contact:Lucius Natarajan[address] [place] [address]
--- OUTSIDE RECORDS SUMMARY | 2018-06-05 07:27 | XMS REPORT | Clinical Summary ---
:1935 Author Organization [facility] Address [address] [place] [address] Care Team Providers Name Role Phone Joe [...] mg total) by mouth 8 19 daily. glimepiride Take 2 mg by 1 [...] Encounters Date Type Specialty Care Team Description 05/30/2017 - Hospital Encounter Cardiology Sebastian Blancas Acute kidney injury (HCC); 06/19/2017 MD Brody Acute encephalopathy; Pallavi Cameron Acute respiratory failure with hypoxia ([facility]); MD Rafael Gastrointestinal hemorrhage, unspecified gastrointestinal hemorrhage type; Linda Nelson Delirium due to multiple etiologies, acute, hyperactive; MD Kings Leukocytosis, unspecified type; Douglas Dinero Pneumonia due to methicillin resistant Staphylococcus aureus, unspecified laterality, unspecified part of lung (HCC); MD Ji Acute respiratory failure requiring reintubation (HCC); Atrial fibrillation, unspecified type (HCC); Alcohol abuse; Physical deconditioning after 06/04/2017 Social History Tobacco Use Types Packs/Day Years [...] 12.8 oz) 06/19/2017 4:01 AM CDT Height - - Body Mass Index 26.55 06/19/2017 4:01 AM CDT Plan of Treatment Not on file Procedures Procedure Name Priority Date/Time Associated Comments Diagnosis TRANSFUSE PLASMA Routine 03/15/2018 5:30 PM RESERVES CLERK TRANSFUSE PLASMA Routine 03/15/2018 5:30 PM RESERVES CLERK RHYTHM STRIP - SCAN 07/27/2017 2:51 PM [...] procedure are in the results section. after 06/04/2017 Results Transfuse plasma (03/15/2018 5:30 PM RESERVES CLERK)Only the most recent of3 resultswithin the time period is included.RHYTHM STRIP - SCAN (07/27/2017 2:51 PM CDT)Only the most recent of2 resultswithin the time period is included. Narrative Performed At EKG-SCANNED (06/20/2017 2:52 PM CDT) Narrative Performed At POC-Glucose meter (06/19/2017 4:24 PM CDT)Only the most recent of65 resultswithin the time period is included. POC-Glucose Meter 202 (H)Comment: TESTED AT 70 - 110 mg/dL [address] [address] Specimen Blood Performing Organization Address [facility] Services[facility] Phone Number [address] [address] CENTER Phosphorus (06/19/2017 7:18 AM CDT)Only the most recent of16 resultswithin the time period is included. Phosphorus 2.7 2.3 - 4.7 mg/dL [facility] Specimen Blood Performing Organization Address City/[facility]/Zipcode Phone Number [address] [address] CENTER Magnesium (06/19/2017 7:18 AM CDT)Only the most recent of18 resultswithin the time period is included. Magnesium 1.4 (L) 1.6 - 2.6 mg/dL [facility] Specimen Blood Performing Organization Address City/[facility]/Zipcode Phone Number [address] [address] [phone] CENTER Comprehensive metabolic panel (06/19/2017 7:18 AM CDT)Only the most recent of2 resultswithin the time period is included. Protein, Total 6.7 6.0 - 8.3 gm/dL [facility] Albumin 3.3 (L) 3.5 - 5.0 g/dL [facility] Alkaline Phosphatase 64 40 - 150 U/L [facility] Total Bilirubin 0.5 0.2 - 1.2 mg/dL [facility] Sodium 141 136 - 145 meq/L [facility] Potassium 3.3 (L) 3.5 - 5.1 meq/L [facility] Chloride 106 98 - 107 meq/L [facility] CO2 24 22 - 29 meq/L [facility] BUN 16 7 - 21 mg/dL [facility] Creatinine 1.18 0.57 - 1.25 mg/dL [facility] Glucose 118 (H) 70 - 105 mg/dL [facility] Calcium 8.9 8.4 - 10.2 mg/dL [facility] AST 15 5 - 34 U/L [facility] ALT 12 6 - 55 U/L [facility] EGFR 59Comment: ESTIMATED GFR mL/min/1.[address] [facility] IS NOT ACCURATE [facility] CREATININE CLEARANCE IN PREDICTING GLOMERULAR FILTRATION RATE. ESTIMATED GFR IS NOT APPLICABLE FOR DIALYSIS PATIENTS. Specimen Blood Performing Organization Address City/State/Zipcode Phone Number [address] [id number] [phone] [facility] CBC with platelet count + automated diff (06/18/2017 11:58 PM CDT)Only the most recent of16 resultswithin the time period is included. WBC 6.8 3.5 - 10.5 K/L [facility] RBC 2.68 (L) 4.63 - 6.08 M/L [facility] Hemoglobin 7.8 (L) 13.7 - 17.5 GM/DL [facility] Hematocrit 24.9 (L) 40.1 - 51.0 % [facility] MCV 92.9 (H) 79.0 - 92.2 fL [facility] MCH 29.1 25.7 - 32.2 pg [facility] MCHC 31.3 (L) 32.3 - 36.5 GM/DL [facility] RDW 16.9 (H) 11.6 - 14.4 % [facility] Platelets 306 150 - 450 K/CU MM [facility] MPV 9.3 (L) 9.4 - 12.4 fL [facility] nRBC 0 0 - 0 /100 WBC [facility] % Neutros 47 % [facility] % Lymphs 34 % [facility] % Monos 11 % [facility] % Eos 6 % [facility] % Baso 1 % [facility] # Neutros 3.17 1.78 - 5.38 K/L [facility] # Lymphs 2.28 1.32 - 3.57 K/L [facility] # Monos 0.77 0.30 - 0.82 K/L [facility] # Eos 0.43 0.04 - 0.54 K/L [facility] # Baso 0.06 0.01 - 0.08 K/L [facility] Immature Granulocytes-Relative 1 0 - 1 % [facility] Specimen Blood Performing Organization Address [facility]/Zipcode Phone Number [facility] [address] [place] [address] [phone] CENTER Basic Metabolic Panel (06/18/2017 4:44 AM CDT)Only the most recent of20 resultswithin the time period is included. Sodium 137 136 - 145 meq/L [facility] Potassium 3.0 (L) 3.5 - 5.1 meq/L [facility] Chloride 103 98 - 107 meq/L [facility] CO2 23 22 - 29 meq/L [facility] BUN 15 7 - 21 mg/dL [facility] Creatinine 1.22 0.57 - 1.25 mg/dL [facility] Glucose 116 (H) 70 - 105 mg/dL [facility] Calcium 8.4 8.4 - 10.2 mg/dL [facility] EGFR 57Comment: ESTIMATED GFR IS mL/min/1.73 sq m [facility] NOT ACCURATE CREATININE [facility] CENTER CLEARANCE IN PREDICTING GLOMERULAR FILTRATION RATE. ESTIMATED GFR IS NOT APPLICABLE FOR DIALYSIS PATIENTS. Specimen Blood Performing Organization Address [facility] Servicescook Phone Number [facility] [address] [place] [address] [facility] Prothrombin time/INR (06/15/2017 2:42 AM CDT) Protime 15.7 (H) 11.7 - 14.7 seconds [facility] INR 1.3 <=5.9 [facility] Specimen Blood Narrative Performed At [facility] RECOMMENDED COUMADIN/WARFARIN INR THERAPY RANGES STANDARD DOSE: 2.0 - 3.0 Includes: PROPHYLAXIS for venous thrombosis, systemic embolization; TREATMENT for venous thrombosis and/or pulmonary embolus. HIGH RISK: Target INR is 2.5-3.5 for patients with mechanical heart valves. Performing Organization Address City/[facility]/Zipcode Phone Number [facility] [address] [place] [address] CENTER Manual Differential (06/14/2017 5:42 AM CDT) % Neutros 50 % [facility] % Lymphs 33 % [facility] % Monos 9 % [facility] % Eos 6 % [facility] % Baso 1 % [facility] % Bands 1 0 - 10 % [facility] # Neutros 3.00 1.78 - 5.38 K/ul [facility] # Lymphs 1.98 1.32 - 3.57 K/ul [facility] # Monos 0.54 0.30 - 0.82 K/uL [facility] # Eos 0.36 0.04 - 0.54 K/uL [facility] # Baso 0.06 0.01 - 0.08 K/uL [facility] # Bands 0.06 0.00 - 0.80 K/uL [facility] Total Counted 100 [facility] WBC Morphology Normal [facility] Platelet Morphology Normal [facility] Anisocytosis 1+ few [facility] Macrocytes 1+ few [facility] Artifact Present [facility] Platelet Conc Adequate [facility] Specimen Blood Narrative Performed At Received comment: [facility] User comments: Slide comments: Performing Organization Address City/State/Zipcode Phone Number [facility] [address] [place] [address] [phone] CENTER TRANSFUSION SERVICE REPORT - SCAN (06/12/2017 5:40 PM CDT) Narrative Performed At Type and screen, automated (06/11/2017 5:23 AM CDT) ABO/RH AUTOMATED (BEAKER) A NEGATIVE [facility] Ab Scrn NEGATIVE [facility] Specimen Blood Performing Organization Address City/[facility]/Zipcode Phone Number [facility] [address] [place] [phone] Vancomycin level, random (06/11/2017 5:23 AM CDT) Vancomycin Rm 31.8 ug/mL [facility] Specimen Blood Narrative Performed At [facility] Reference Range: No Normals Performing Organization Address City/[facility]/Zipcode Phone Number [address] [address] CENTER Blood culture (06/09/2017 3:42 PM CDT)Only the most recent of6 resultswithin the time period is included. Result No growth in 5 days [facility] Specimen Blood Performing Organization Address City/[facility] Services[facility] Phone Number [address] [address] [phone] [facility] Blood gas, venous (06/08/2017 5:58 PM CDT) pH, Pb 7.46 (H) 7.32 - 7.42 [facility] pCO2, Pb 48 41 - 51 mmHg [facility] pO2, Pb 18 (L) 25 - 40 mmHg [facility] O2 Sat, Pb 29.8 (L) 40.0 - 70.0 % [facility] HCO3, Pb 33 (H) 21 - 29 mmol/L [facility] Base Excess, Pb 8.6 (H) -2.0 - 3.0 mmol/L [facility] Patient Temperature 37.0 C [facility] Specimen Blood Narrative Performed At From midline [facility] Performing Organization Address City/State/Zipcode Phone Number [address] [address] [facility] Vitamin B12 and Folate (06/08/2017 4:54 AM CDT) Vitamin B12 508 213 - 816 pg/mL [facility] Folate 16.5 >=7.0 ng/mL [facility] Specimen Blood Performing Organization Address City/[facility]/Zipcode Phone Number [address] [address] CENTER Iron, TIBC, % sat. (without ferritin) (06/08/2017 4:54 AM CDT) Iron 15 (L) 40 - 160 ug/dL [facility] TIBC 183 (L) 250 - 450 ug/dL [facility] Iron % Saturation 8 (L) 20 - 55 % [facility] Specimen Blood Performing Organization Address City/[facility] Services[facility] Phone Number [address] [address] [facility] Ferritin (06/08/2017 4:54 AM CDT) Ferritin 334 (H) 5 - 275 ng/mL [facility] Specimen Blood Performing Organization Address City/[facility] Services[facility] Phone Number [address] [address] [phone] CENTER XR abdomen / KUB 1 view (06/07/2017 10:27 PM CDT)Only the most recent of3 resultswithin the time period is included. Specimen Narrative Performed At FINAL REPORT [facility] Comparison: 06/07/2017 at 9:51 PM TECHNIQUE: Frontal image of the abdomen FINDINGS: Feeding tube has been repositioned. Tip now projects in the distal stomach. No other significant change. Signed: Kali Shay MD Report Verified Date/Time:06/07/2017 22:29:27 Reading Location: [facility] B1 [id number] Consult Reading Room Procedure Note Interface, External Ris In - 06/07/2017 10:31 PM CDT FINAL REPORT Comparison: 06/07/2017 at 9:51 PM TECHNIQUE: Frontal image of the abdomen FINDINGS: Feeding tube has been repositioned. Tip now projects in the distal stomach. No other significant change. Signed: Kali Shay MD Report Verified Date/Time: 06/07/2017 22:29:27 Reading Location: [facility] [id number] Consult Reading Room Performing Organization Address [facility] Services[facility] Phone Number RIS Procalcitonin (06/07/2017 4:37 PM CDT) Procalcitonin <0.05 <0.05 ng/mL [facility] Specimen Blood Narrative Performed At [facility] SEPSIS RISK (ng/mL) Low:0.05-0.50 Intermediate: 0.51-2.00 High: >=2.01 Performing Organization Address [facility] Phone Number [address] [address] CENTER Reticulocyte count (06/07/2017 4:37 PM CDT) % Retic 2.7 (H) 0.5 - 1.8 % [facility] Specimen Blood Performing Organization Address [facility] Phone Number [address] [address] CENTER Troponin I (06/07/2017 5:04 AM CDT) Troponin I 0.03 0.00 - 0.03 ng/mL [facility] Specimen Blood Narrative Performed At [facility] Troponin I (TnI) levels must be interpreted [...] disease, and persistent tachyarrhythmia. Performing Organization Address City/State/Zipcode Phone Number [address] [phone] [facility] Lactic acid, venous, whole blood (06/07/2017 5:04 AM CDT)Only the most recent of4 resultswithin the time period is included. Lactate, Venous 0.9 0.5 - 2.2 mmol/L [facility] Specimen Blood Narrative Performed At [facility] Effective 06/10/2015: Units/Reference Range Change New: 0.5-2.2 mmol/LPrevious: 5-20 mg/dL Performing Organization Address City/State/Zipcode Phone Number [address] [phone] [facility] XR chest 1 view portable / bedside (06/07/2017 3:54 AM CDT)Only the most recent of4 resultswithin the time period is included. Specimen Narrative Performed At FINAL REPORT [facility] Chest one view compared to June 06, 2017 Discussion: Left chest pacemaker, feeding tube, right IJ line in place. There is pulmonary congestion with subtle suspected airspace opacity left lung base all unchanged. No gross effusion or pneumothorax. Signed: Jerel Lloyd MD Report Verified Date/Time:06/07/2017 08:42:41 Reading Location: [facility] Radiology Reading Room Procedure Note Interface, External Ris In - 06/07/2017 8:44 AM CDT FINAL REPORT Chest one view compared to June 06, 2017 Discussion: Left chest pacemaker, feeding tube, right IJ line in place. There is pulmonary congestion with subtle suspected airspace opacity left lung base all unchanged. No gross effusion or pneumothorax. Signed: Jerel Lloyd MD Report Verified Date/Time: 06/07/2017 08:42:41 Reading Location: [facility] Radiology Reading Room Performing Organization Address City/[facility] Services[facility] Phone Number [facility] R[facility] B-type Natriuretic Factor (BNP) (06/07/2017 12:00 AM CDT) BNP 661 (H) 0 - 100 pg/mL [facility] Specimen Blood Performing Organization Address [facility] Services[facility] Phone Number [address] [address] CENTER Sputum Culture + Gram Stain (06/06/2017 8:56 AM CDT) Result METHICILLIN RESISTANT [facility] STAPHYLOCOCCUS AUREUS (A) MEDICAL CENTER Result BETA-HEMOLYTIC STREPTOCOCCUS, [facility] NON-GROUP A, NON-GROUP B MEDICAL CENTER (A)Comment: Identified by serological grouping. Gram Stain Result No WBCs [facility] Gram Stain Result 0-5 epithelial cells [facility] Gram Stain Result No organisms seen [facility] Specimen Aspirate Narrative Performed At <1+ Normal respiratory melanie present [facility] Organism Antibiotic Method Susceptibility Methicillin resistant Clindamycin [...] 1: Susceptible Staphylococcus aureus Performing Organization Address [facility] Services[facility] Phone Number [address] [address] CENTER Calcium, Ionized (06/06/2017 4:01 AM CDT) Calcium, Ion 1.08 (L) 1.12 - 1.27 mmol/L [facility] pH, Blood 7.42 [facility] Specimen Blood Performing Organization Address City/[facility]/Zipcode Phone Number [address] [address] [facility] Vancomycin level, trough (06/05/2017 9:18 PM CDT) Vancomycin Tr 21.4 (H) 10.0 - 20.0 ug/mL [facility] Specimen Blood Performing Organization Address City/[facility] Services[facility] Phone Number [address] [phone] [facility] Creatine Kinase (CK), Total and MB (06/05/2017 9:39 AM CDT)Only the most recent of4 resultswithin the time period is included. Total CK 45 29 - 200 U/L [facility] CK-MB 0.5 0.0 - 6.6 ng/mL [facility] MB Relative Index 1.1 % [facility] Specimen Blood Narrative Performed At CK-MB Reference Range: [facility] <6.7Normal 6.7-10.0Borderline >10.0 Abnormal Performing Organization Address [facility] Phone Number [address] [phone] brain without IV contrast (06/04/2017 3:11 PM CDT) Specimen Narrative Performed At FINAL REPORT [facility] CT Head without contrast CLINICAL HISTORY: Confusion/delirium, [...] acute infarct, hemorrhage, or hydrocephalus. Signed: Lisa Saldaña MD Report Verified Date/Time:06/04/2017 15:33:02 Reading Location: [address] Neuro Reading Room Procedure Note Interface, External [...] acute infarct, hemorrhage, or hydrocephalus. Signed: Lisa Saldaña MD Report Verified Date/Time: 06/04/2017 15:33:02 Reading Location: [address] Neuro Reading Room Performing Organization Address City/State/Zipcode Phone Number [facility] US abdomen limited (06/04/2017 5:05 AM CDT) Specimen Narrative Performed At Addendum Begins [facility] REPORT STATUS:A Indication: Right upper quadrant pain. Signed: Marci Levine MD Report Verified Date/Time:06/29/2017 05:54:07 Reading Location: [place] [id number] CT Body Reading Room Addendum Ends FINAL [...] MD Report Verified Date/Time:06/04/2017 06:44:53 Reading Location: [address] Ortho Consult Reading Room Procedure Note Interface, External Ris In - 06/29/2017 5:56 AM CDT Addendum Begins REPORT STATUS:A Indication: Right upper quadrant pain. Signed: Marci Levine MD Report Verified Date/Time: 06/29/2017 05:54:07 Reading Location: [place] [address] CT Body Reading Room Addendum Ends FINAL [...] Report Verified Date/Time: 06/04/2017 06:44:53 Reading Location: [facility] [id number] Ortho Consult Reading Room Performing Organization Address City/State/Zipcode Phone Number [facility] Blood gas, arterial (06/04/2017 3:57 AM CDT) pH, Arterial 7.44 7.35 - 7.45 [facility] pCO2, Arterial 33 (L) 35 - 45 mmHg [facility] pO2, Arterial 190 (H) 80 - 90 mmHg [facility] O2 Sat, Arterial 99.4 (H) 96.0 - 97.0 % [facility] HCO3, Arterial 22 21 - 29 mmol/L [facility] Base Excess, Arterial -1.8 -2.0 - 3.0 mmol/L [facility] Patient Temperature 37.5 C [facility] FIO2 50.0 % [facility] Specimen Blood, Arterial Performing Organization Address City/State/Zipcode Phone Number [facility] [address] [place] [address] [phone] CENTER after 06/04/2017 Insurance Payer Benefit Plan / Subscriber ID Type Phone Address Group MEDICARE MEDICARE A B xxxxxxxxxx Medicare BLUE CROSS/BLUE BCBS PPO POS EPO xxxxxxxxxxxx PPO [phone] [address] [place] [address] Advance Directives For more information, please contact:[address] [phone] Code Status Date Activated Date Inactivated Comments Full Code 05/30/2017 10:08 PM 06/19/2017 7:55 PM This code status was determined by: Patient
--- OUTSIDE RECORDS SUMMARY | 2018-06-05 07:33 | XMS REPORT ---
:1935 [facility] Address [address] [place] [address] Care Team Providers Name Role Phone MURPHY [...] comment if STATUS:A PATIENT ID: clarification is [id number] Indication: Right needed.->LiverReason for upper quadrant pain. Signed: exam:->r/o cirrhosis Marci Levine MDReport Verified Date/Time: 06/29/2017 05:54:07 Reading Location: [place] [id number] Body Reading RoomAddendum EndsFINAL REPORT U/S, [...] sonographic evidence of cirrhosis. Signed: Marci Levine MDReport Verified Date/Time: 06/04/2017 06:44:53 Reading Location: [facility] [id number] Ortho Consult Reading Room -GLUCOSE METER 2017-06-19 16:56:00 Test Item Value Reference Range Comments POC-GLUCOSE METER (BEAKER) (test 202 mg/dL 70-110 TESTED AT [facility] [address] tfeb=2014) [facility] [address] POCT-GLUCOSE [id number] 12:23:00 Test Item Value Reference Range Comments POC-GLUCOSE METER (BEAKER) 223 mg/dL 70-110 TESTED AT [facility] [address] [facility] (test blfs=2346) [facility] [address] POCT-GLUCOSE [id number] 08:07:00 Test Item Value Reference Range Comments POC-GLUCOSE METER (BEAKER) 122 mg/dL 70-110 TESTED AT [place] [id number] [facility] (test hbij=9232) [facility] [address] [id number] 07:19:00 Test Item Value Reference Range Comments MAGNESIUM (BEAKER) (test agnc=192) 1.4 mg/dL 1.6-2.6 [id number] 07:19:00 Test Item Value Reference Range Comments PHOSPHORUS (BEAKER) (test fdmd=489) 2.7 mg/dL 2.3-4.7 COMPREHENSIVE METABOLIC [id number] 07:18:00 Test Item Value Reference Range Comments TOTAL PROTEIN (BEAKER) 6.7 gm/dL 6.0-8.3 (test vaau=855) ALBUMIN (BEAKER) (test 3.3 g/dL 3.5-5.0 bkro=8257) ALKALINE PHOSPHATASE 64 U/L 40-150 (BEAKER) (test janb=789) BILIRUBIN TOTAL (BEAKER) 0.5 mg/dL 0.2-1.2 (test iztn=230) SODIUM (BEAKER) (test 141 meq/L 136-145 vfcl=342) POTASSIUM (BEAKER) (test 3.3 meq/L 3.5-5.1 ysep=330) CHLORIDE (BEAKER) (test 106 meq/L 98-107 lwam=867) CO2 (BEAKER) (test 24 meq/L 22-29 czms=055) BLOOD UREA NITROGEN 16 mg/dL 7-21 (BEAKER) (test hhkm=245) CREATININE (BEAKER) (test 1.18 mg/dL 0.57-1.25 zajg=101) GLUCOSE RANDOM (BEAKER) 118 mg/dL 70-105 (test vyyq=957) CALCIUM (BEAKER) (test 8.9 mg/dL 8.4-10.2 qqgx=893) AST (SGOT) (BEAKER) (test 15 U/L 5-34 lcfw=776) ALT (SGPT) (BEAKER) (test 12 U/L 6-55 xxxq=721) EGFR (BEAKER) (test 59 mL/min/1.73 sq m ESTIMATED GFR IS NOT iysn=8377) ACCURATE CREATININE CLEARANCE IN PREDICTING GLOMERULAR FILTRATION RATE. ESTIMATED GFR IS NOT APPLICABLE FOR DIALYSIS PATIENTS. CBC W/PLT COUNT & AUTO [id number] 00:06:00 Test Item Value Reference Range Comments WHITE BLOOD CELL COUNT (BEAKER) (test bero=784) 6.8 K/ L 3.5-10.5 RED BLOOD CELL COUNT (BEAKER) (test jkcu=356) 2.68 M/ L 4.63-6.08 HEMOGLOBIN (BEAKER) (test ejrp=625) 7.8 GM/DL 13.7-17.5 HEMATOCRIT (BEAKER) (test gpwj=580) 24.9 % 40.1-51.0 MEAN CORPUSCULAR VOLUME (BEAKER) (test xbei=531) 92.9 fL 79.0-92.2 MEAN CORPUSCULAR HEMOGLOBIN (BEAKER) (test 29.1 pg 25.7-32.2 sccf=343) MEAN CORPUSCULAR HEMOGLOBIN CONC (BEAKER) (test 31.3 GM/DL 32.3-36.5 psbu=489) RED CELL DISTRIBUTION WIDTH (BEAKER) (test 16.9 % 11.6-14.4 jypb=230) PLATELET COUNT (BEAKER) (test nuuz=637) 306 K/CU MM 150-450 MEAN PLATELET VOLUME (BEAKER) (test ibxf=945) 9.3 fL 9.4-12.4 NUCLEATED RED BLOOD CELLS (BEAKER) (test 0 /100 WBC 0-0 wytd=274) NEUTROPHILS RELATIVE PERCENT (BEAKER) (test 47 % qske=298) LYMPHOCYTES RELATIVE PERCENT (BEAKER) (test 34 % nasm=089) MONOCYTES RELATIVE PERCENT (BEAKER) (test 11 % vwyx=576) EOSINOPHILS RELATIVE PERCENT (BEAKER) (test 6 % wfts=625) BASOPHILS RELATIVE PERCENT (BEAKER) (test 1 % luqm=079) NEUTROPHILS ABSOLUTE COUNT (BEAKER) (test 3.17 K/ L 1.78-5.38 wknc=168) LYMPHOCYTES ABSOLUTE COUNT (BEAKER) (test 2.28 K/ L 1.32-3.57 fpcz=667) MONOCYTES ABSOLUTE COUNT (BEAKER) (test 0.77 K/ L 0.30-0.82 zocb=047) EOSINOPHILS ABSOLUTE COUNT (BEAKER) (test 0.43 K/ L 0.04-0.54 fubw=760) BASOPHILS ABSOLUTE COUNT (BEAKER) (test 0.06 K/ L 0.01-0.08 kbpe=547) IMMATURE GRANULOCYTES-RELATIVE PERCENT (BEAKER) 1 % 0-1 (test srah=2191) POCT-GLUCOSE [id number] 20:29:00 Test Item Value Reference Range Comments POC-GLUCOSE METER (BEAKER) 126 mg/dL 70-110 TESTED AT [address] (test dajp=6687) [facility] [address] POCT-GLUCOSE [id number] 17:46:00 Test Item Value Reference Range Comments POC-GLUCOSE METER (BEAKER) 98 mg/dL 70-110 TESTED AT [address] (test etwd=4401) [facility] [address] POCT-GLUCOSE [id number] 13:26:00 Test Item Value Reference Range Comments POC-GLUCOSE METER (BEAKER) 118 mg/dL 70-110 TESTED AT [address] (test ybkn=1032) [facility] [address] POCT-GLUCOSE [id number] 08:28:00 Test Item Value Reference Range Comments POC-GLUCOSE METER (BEAKER) 137 mg/dL 70-110 TESTED AT [address] (test yfrl=9895) [facility] [address] [id number] 05:31:00 Test Item Value Reference Range Comments PHOSPHORUS (BEAKER) (test jdox=755) 3.1 mg/dL 2.3-4.7 [id number] 05:31:00 Test Item Value Reference Range Comments MAGNESIUM (BEAKER) (test mqxe=810) 1.3 mg/dL 1.6-2.6 BASIC METABOLIC [id number] 05:31:00 Test Item Value Reference Range Comments SODIUM (BEAKER) (test 137 meq/L 136-145 rpyg=026) POTASSIUM (BEAKER) (test 3.0 meq/L 3.5-5.1 ervv=906) CHLORIDE (BEAKER) (test 103 meq/L 98-107 hipo=532) CO2 (BEAKER) (test 23 meq/L 22-29 klqc=107) BLOOD UREA NITROGEN 15 mg/dL 7-21 (BEAKER) (test zvpi=063) CREATININE (BEAKER) (test 1.22 mg/dL 0.57-1.25 btoe=230) GLUCOSE RANDOM (BEAKER) 116 mg/dL 70-105 (test zrhr=047) CALCIUM (BEAKER) (test 8.4 mg/dL 8.4-10.2 kxki=693) EGFR (BEAKER) (test 57 mL/min/1.73 sq m ESTIMATED GFR IS NOT skww=6783) ACCURATE CREATININE CLEARANCE IN PREDICTING GLOMERULAR FILTRATION RATE. ESTIMATED GFR IS NOT APPLICABLE FOR DIALYSIS PATIENTS. CBC W/PLT COUNT & AUTO [id number] 05:13:00 Test Item Value Reference Range Comments WHITE BLOOD CELL COUNT (BEAKER) (test hlir=684) 7.2 K/ L 3.5-10.5 RED BLOOD CELL COUNT (BEAKER) (test zjkm=112) 2.62 M/ L 4.63-6.08 HEMOGLOBIN (BEAKER) (test wqpv=993) 7.5 GM/DL 13.7-17.5 HEMATOCRIT (BEAKER) (test thyg=346) 24.2 % 40.1-51.0 MEAN CORPUSCULAR VOLUME (BEAKER) (test xkwa=266) 92.4 fL 79.0-92.2 MEAN CORPUSCULAR HEMOGLOBIN (BEAKER) (test 28.6 pg 25.7-32.2 mgyf=631) MEAN CORPUSCULAR HEMOGLOBIN CONC (BEAKER) (test 31.0 GM/DL 32.3-36.5 xjhv=333) RED CELL DISTRIBUTION WIDTH (BEAKER) (test 17.0 % 11.6-14.4 yhfy=857) PLATELET COUNT (BEAKER) (test pidj=455) 291 K/CU MM 150-450 MEAN PLATELET VOLUME (BEAKER) (test dzey=980) 9.4 fL 9.4-12.4 NUCLEATED RED BLOOD CELLS (BEAKER) (test 0 /100 WBC 0-0 gfez=099) NEUTROPHILS RELATIVE PERCENT (BEAKER) (test 48 % rlbc=110) LYMPHOCYTES RELATIVE PERCENT (BEAKER) (test 30 % rxae=038) MONOCYTES RELATIVE PERCENT (BEAKER) (test 13 % enyp=309) EOSINOPHILS RELATIVE PERCENT (BEAKER) (test 7 % nkgb=201) BASOPHILS RELATIVE PERCENT (BEAKER) (test 1 % vnbi=254) NEUTROPHILS ABSOLUTE COUNT (BEAKER) (test 3.49 K/ L 1.78-5.38 oyex=358) LYMPHOCYTES ABSOLUTE COUNT (BEAKER) (test 2.19 K/ L 1.32-3.57 niqa=863) MONOCYTES ABSOLUTE COUNT (BEAKER) (test 0.91 K/ L 0.30-0.82 ubby=414) EOSINOPHILS ABSOLUTE COUNT (BEAKER) (test 0.52 K/ L 0.04-0.54 giam=746) BASOPHILS ABSOLUTE COUNT (BEAKER) (test 0.07 K/ L 0.01-0.08 hszx=065) IMMATURE GRANULOCYTES-RELATIVE PERCENT (BEAKER) 1 % 0-1 (test thic=7042) POCT-GLUCOSE [id number] 21:05:00 Test Item Value Reference Range Comments POC-GLUCOSE METER (BEAKER) 199 mg/dL 70-110 TESTED AT [address] (test cyaa=7844) [place] [id number] POCT-GLUCOSE [id number] 18:55:00 Test Item Value Reference Range Comments POC-GLUCOSE METER (BEAKER) 128 mg/dL 70-110 TESTED AT [address] (test oolh=2040) [place] [address] POCT-GLUCOSE [id number] 11:34:00 Test Item Value Reference Range Comments POC-GLUCOSE METER (BEAKER) 144 mg/dL 70-110 TESTED AT [address] (test gayo=2862) [place] [id number] POCT-GLUCOSE [id number] 07:58:00 Test Item Value Reference Range Comments POC-GLUCOSE METER (BEAKER) 93 mg/dL 70-110 TESTED AT [address] (test blpf=1117) [place] [id number] [id number] 05:23:00 Test Item Value Reference Range Comments PHOSPHORUS (BEAKER) (test lrnq=300) 2.9 mg/dL 2.3-4.7 [id number] 05:23:00 Test Item Value Reference Range Comments MAGNESIUM (BEAKER) (test efln=323) 1.6 mg/dL 1.6-2.6 CBC W/PLT COUNT & AUTO [id number] 05:03:00 Test Item Value Reference Range Comments WHITE BLOOD CELL COUNT (BEAKER) (test fevn=332) 7.0 K/ L 3.5-10.5 RED BLOOD CELL COUNT (BEAKER) (test tkzo=560) 2.87 M/ L 4.63-6.08 HEMOGLOBIN (BEAKER) (test qzmk=530) 8.4 GM/DL 13.7-17.5 HEMATOCRIT (BEAKER) (test iqjt=062) 26.3 % 40.1-51.0 MEAN CORPUSCULAR VOLUME (BEAKER) (test qtqd=805) 91.6 fL 79.0-92.2 MEAN CORPUSCULAR HEMOGLOBIN (BEAKER) (test 29.3 pg 25.7-32.2 kfrv=371) MEAN CORPUSCULAR HEMOGLOBIN CONC (BEAKER) (test 31.9 GM/DL 32.3-36.5 pzud=641) RED CELL DISTRIBUTION WIDTH (BEAKER) (test 16.7 % 11.6-14.4 mxxx=969) PLATELET COUNT (BEAKER) (test byiq=931) 323 K/CU MM 150-450 MEAN PLATELET VOLUME (BEAKER) (test voog=640) 9.6 fL 9.4-12.4 NUCLEATED RED BLOOD CELLS (BEAKER) (test 0 /100 WBC 0-0 yybb=803) NEUTROPHILS RELATIVE PERCENT (BEAKER) (test 48 % hisi=336) LYMPHOCYTES RELATIVE PERCENT (BEAKER) (test 32 % ctrq=049) MONOCYTES RELATIVE PERCENT (BEAKER) (test 12 % pvae=789) EOSINOPHILS RELATIVE PERCENT (BEAKER) (test 7 % adro=121) BASOPHILS RELATIVE PERCENT (BEAKER) (test 1 % bavi=144) NEUTROPHILS ABSOLUTE COUNT (BEAKER) (test 3.38 K/ L 1.78-5.38 jrqd=995) LYMPHOCYTES ABSOLUTE COUNT (BEAKER) (test 2.23 K/ L 1.32-3.57 nikj=484) MONOCYTES ABSOLUTE COUNT (BEAKER) (test 0.86 K/ L 0.30-0.82 vgul=940) EOSINOPHILS ABSOLUTE COUNT (BEAKER) (test 0.48 K/ L 0.04-0.54 gqbf=038) BASOPHILS ABSOLUTE COUNT (BEAKER) (test 0.06 K/ L 0.01-0.08 fvuk=047) IMMATURE GRANULOCYTES-RELATIVE PERCENT (BEAKER) 0 % 0-1 (test hjxr=0319) POCT-GLUCOSE [id number] 22:10:00 Test Item Value Reference Range Comments POC-GLUCOSE METER (BEAKER) 100 mg/dL 70-110 TESTED AT [address] (test ccfc=1953) [facility] [address] POCT-GLUCOSE [id number] 20:51:00 Test Item Value Reference Range Comments POC-GLUCOSE METER (BEAKER) 195 mg/dL 70-110 TESTED AT [address] (test pegw=4086) [place] [id number] POCT-GLUCOSE [id number] 12:49:00 Test Item Value Reference Range Comments POC-GLUCOSE METER (BEAKER) 183 mg/dL 70-110 TESTED AT [address] (test szmp=0900) [facility] [address] POCT-GLUCOSE [id number] 08:20:00 Test Item Value Reference Range Comments POC-GLUCOSE METER (BEAKER) 95 mg/dL 70-110 TESTED AT [address] (test cmnp=1519) [facility] [address] [id number] 07:00:00 Test Item Value Reference Range Comments MAGNESIUM (BEAKER) (test fswm=954) 1.0 mg/dL 1.6-2.6 [id number] 06:56:00 Test Item Value Reference Range Comments PHOSPHORUS (BEAKER) (test zpxl=411) 2.8 mg/dL 2.3-4.7 BASIC METABOLIC [id number] 06:56:00 Test Item Value Reference Range Comments SODIUM (BEAKER) (test 137 meq/L 136-145 zmun=833) POTASSIUM (BEAKER) (test 3.6 meq/L 3.5-5.1 idsx=493) CHLORIDE (BEAKER) (test 104 meq/L 98-107 bqaa=526) CO2 (BEAKER) (test 24 meq/L 22-29 rohf=536) BLOOD UREA NITROGEN 12 mg/dL 7-21 (BEAKER) (test vctk=822) CREATININE (BEAKER) (test 0.90 mg/dL 0.57-1.25 zvkb=425) GLUCOSE RANDOM (BEAKER) 84 mg/dL 70-105 (test cnly=954) CALCIUM (BEAKER) (test 8.8 mg/dL 8.4-10.2 hefa=842) EGFR (BEAKER) (test 81 mL/min/1.73 sq m ESTIMATED GFR IS NOT csya=8694) ACCURATE CREATININE CLEARANCE IN PREDICTING GLOMERULAR FILTRATION RATE. ESTIMATED GFR IS NOT APPLICABLE FOR DIALYSIS PATIENTS. CBC W/PLT COUNT & AUTO [id number] 06:16:00 Test Item Value Reference Range Comments WHITE BLOOD CELL COUNT (BEAKER) (test kjyu=103) 6.7 K/ L 3.5-10.5 RED BLOOD CELL COUNT (BEAKER) (test bjqz=700) 2.80 M/ L 4.63-6.08 HEMOGLOBIN (BEAKER) (test bvhf=791) 8.1 GM/DL 13.7-17.5 HEMATOCRIT (BEAKER) (test gwkt=296) 26.2 % 40.1-51.0 MEAN CORPUSCULAR VOLUME (BEAKER) (test yulv=923) 93.6 fL 79.0-92.2 MEAN CORPUSCULAR HEMOGLOBIN (BEAKER) (test 28.9 pg 25.7-32.2 codj=017) MEAN CORPUSCULAR HEMOGLOBIN CONC (BEAKER) (test 30.9 GM/DL 32.3-36.5 xptr=440) RED CELL DISTRIBUTION WIDTH (BEAKER) (test 16.6 % 11.6-14.4 pqnm=439) PLATELET COUNT (BEAKER) (test jwhc=434) 331 K/CU MM 150-450 MEAN PLATELET VOLUME (BEAKER) (test ooam=775) 9.7 fL 9.4-12.4 NUCLEATED RED BLOOD CELLS (BEAKER) (test 0 /100 WBC 0-0 pjul=297) NEUTROPHILS RELATIVE PERCENT (BEAKER) (test 49 % dfcz=480) LYMPHOCYTES RELATIVE PERCENT (BEAKER) (test 32 % sogw=974) MONOCYTES RELATIVE PERCENT (BEAKER) (test 11 % tclm=503) EOSINOPHILS RELATIVE PERCENT (BEAKER) (test 6 % zcha=917) BASOPHILS RELATIVE PERCENT (BEAKER) (test 1 % otmu=605) NEUTROPHILS ABSOLUTE COUNT (BEAKER) (test 3.31 K/ L 1.78-5.38 faoh=704) LYMPHOCYTES ABSOLUTE COUNT (BEAKER) (test 2.14 K/ L 1.32-3.57 adtt=552) MONOCYTES ABSOLUTE COUNT (BEAKER) (test 0.75 K/ L 0.30-0.82 mbfz=179) EOSINOPHILS ABSOLUTE COUNT (BEAKER) (test 0.42 K/ L 0.04-0.54 ftiz=510) BASOPHILS ABSOLUTE COUNT (BEAKER) (test 0.07 K/ L 0.01-0.08 jajg=848) IMMATURE GRANULOCYTES-RELATIVE PERCENT (BEAKER) 0 % 0-1 (test qbdg=2903) POCT-GLUCOSE [id number] 21:45:00 Test Item Value Reference Range Comments POC-GLUCOSE METER (BEAKER) 174 mg/dL 70-110 TESTED AT [address] (test tixf=6500) [facility] [address] POCT-GLUCOSE [id number] 17:21:00 Test Item Value Reference Range Comments POC-GLUCOSE METER (BEAKER) 212 mg/dL 70-110 TESTED AT [address] (test gldx=7566) [facility] [address] POCT-GLUCOSE [id number] 08:21:00 Test Item Value Reference Range Comments POC-GLUCOSE METER (BEAKER) 107 mg/dL 70-110 TESTED AT [address] (test hzkg=4970) [facility] [address] [id number] 03:39:00 Test Item Value Reference Range Comments PHOSPHORUS (BEAKER) (test qbcm=319) 2.8 mg/dL 2.3-4.7 [id number] 03:39:00 Test Item Value Reference Range Comments MAGNESIUM (BEAKER) (test dpus=726) 1.4 mg/dL 1.6-2.6 COMPREHENSIVE METABOLIC [id number] 03:39:00 Test Item Value Reference Range Comments TOTAL PROTEIN (BEAKER) 6.5 gm/dL 6.0-8.3 (test swsl=868) ALBUMIN (BEAKER) (test 2.9 g/dL 3.5-5.0 ceoa=8317) ALKALINE PHOSPHATASE 60 U/L 40-150 (BEAKER) (test dyag=365) BILIRUBIN TOTAL (BEAKER) 0.4 mg/dL 0.2-1.2 (test hiec=035) SODIUM (BEAKER) (test 140 meq/L 136-145 wjgb=803) POTASSIUM (BEAKER) (test 3.7 meq/L 3.5-5.1 slkw=718) CHLORIDE (BEAKER) (test 104 meq/L 98-107 snmz=033) CO2 (BEAKER) (test 25 meq/L 22-29 ozrt=965) BLOOD UREA NITROGEN 12 mg/dL 7-21 (BEAKER) (test drbu=910) CREATININE (BEAKER) (test 0.96 mg/dL 0.57-1.25 msfg=739) GLUCOSE RANDOM (BEAKER) 101 mg/dL 70-105 (test khiy=012) CALCIUM (BEAKER) (test 8.9 mg/dL 8.4-10.2 bxin=284) AST (SGOT) (BEAKER) (test 24 U/L 5-34 skup=927) ALT (SGPT) (BEAKER) (test 25 U/L 6-55 qwpc=155) EGFR (BEAKER) (test 75 mL/min/1.73 sq m ESTIMATED GFR IS NOT zooc=4450) ACCURATE CREATININE CLEARANCE IN PREDICTING GLOMERULAR FILTRATION RATE. ESTIMATED GFR IS NOT APPLICABLE FOR DIALYSIS PATIENTS. PROTHROMBIN [id number] 03:27:00 Test Item Value Reference Range Comments PROTIME (BEAKER) (test udgx=452) 15.7 seconds 11.7-14.7 INR (BEAKER) (test jcnm=137) 1.3 <=5.9 RECOMMENDED COUMADIN/WARFARIN INR THERAPY RANGESSTANDARD DOSE: 2.0 - 3.0 Includes: PROPHYLAXIS forvenous thrombosis, systemic embolization; TREATMENT for venous thrombosis and/or pulmonary embolus.HIGH RISK: Target INR is 2.5-3.5 for patients with mechanical heart valves.CBC W/PLT COUNT & AUTO [id number] 03:19:00 Test Item Value Reference Range Comments WHITE BLOOD CELL COUNT (BEAKER) (test srfp=190) 6.6 K/ L 3.5-10.5 RED BLOOD CELL COUNT (BEAKER) (test kshi=887) 2.54 M/ L 4.63-6.08 HEMOGLOBIN (BEAKER) (test dfgp=548) 7.5 GM/DL 13.7-17.5 HEMATOCRIT (BEAKER) (test jjvs=338) 23.9 % 40.1-51.0 MEAN CORPUSCULAR VOLUME (BEAKER) (test leao=289) 94.1 fL 79.0-92.2 MEAN CORPUSCULAR HEMOGLOBIN (BEAKER) (test 29.5 pg 25.7-32.2 vfeu=827) MEAN CORPUSCULAR HEMOGLOBIN CONC (BEAKER) (test 31.4 GM/DL 32.3-36.5 qxem=768) RED CELL DISTRIBUTION WIDTH (BEAKER) (test 16.8 % 11.6-14.4 wixe=988) PLATELET COUNT (BEAKER) (test xowz=999) 306 K/CU MM 150-450 MEAN PLATELET VOLUME (BEAKER) (test kimd=617) 9.6 fL 9.4-12.4 NUCLEATED RED BLOOD CELLS (BEAKER) (test 0 /100 WBC 0-0 mizo=010) NEUTROPHILS RELATIVE PERCENT (BEAKER) (test 44 % ttzn=246) LYMPHOCYTES RELATIVE PERCENT (BEAKER) (test 36 % ucsx=356) MONOCYTES RELATIVE PERCENT (BEAKER) (test 11 % bbzc=306) EOSINOPHILS RELATIVE PERCENT (BEAKER) (test 8 % tlon=837) BASOPHILS RELATIVE PERCENT (BEAKER) (test 1 % mcbh=989) NEUTROPHILS ABSOLUTE COUNT (BEAKER) (test 2.91 K/ L 1.78-5.38 uctn=274) LYMPHOCYTES ABSOLUTE COUNT (BEAKER) (test 2.37 K/ L 1.32-3.57 kuac=402) MONOCYTES ABSOLUTE COUNT (BEAKER) (test 0.70 K/ L 0.30-0.82 ubtd=859) EOSINOPHILS ABSOLUTE COUNT (BEAKER) (test 0.50 K/ L 0.04-0.54 zykr=842) BASOPHILS ABSOLUTE COUNT (BEAKER) (test 0.06 K/ L 0.01-0.08 ifdu=308) IMMATURE GRANULOCYTES-RELATIVE PERCENT (BEAKER) 0 % 0-1 (test vitq=2345) POCT-GLUCOSE [id number] 21:20:00 Test Item Value Reference Range Comments POC-GLUCOSE METER (BEAKER) 101 mg/dL 70-110 TESTED AT [facility] [address] [place] [address] (test kiwg=5855) [facility] [address] BLOOD [id number] 18:00:00 Test Item Value Reference Range Comments CULTURE (BEAKER) (test tnvs=0741) No growth in 5 days POCT-GLUCOSE [id number] 17:25:00 Test Item Value Reference Range Comments POC-GLUCOSE METER (BEAKER) 273 mg/dL 70-110 TESTED AT [address] (test sfph=9084) [facility] [address] POCT-GLUCOSE [id number] 13:32:00 Test Item Value Reference Range Comments POC-GLUCOSE METER (BEAKER) 247 mg/dL 70-110 TESTED AT [address] (test vlou=4997) [facility] [address] CBC W/PLT COUNT & AUTO [id number] 12:21:00 Test Item Value Reference Range Comments WHITE BLOOD CELL COUNT (BEAKER) (test aeob=249) 6.0 K/ L 3.5-10.5 RED BLOOD CELL COUNT (BEAKER) (test prxq=290) 2.60 M/ L 4.63-6.08 HEMOGLOBIN (BEAKER) (test oadb=018) 7.5 GM/DL 13.7-17.5 HEMATOCRIT (BEAKER) (test ypvm=639) 24.2 % 40.1-51.0 MEAN CORPUSCULAR VOLUME (BEAKER) (test kwlk=734) 93.1 fL 79.0-92.2 MEAN CORPUSCULAR HEMOGLOBIN (BEAKER) (test 28.8 pg 25.7-32.2 olut=344) MEAN CORPUSCULAR HEMOGLOBIN CONC (BEAKER) (test 31.0 GM/DL 32.3-36.5 oydm=138) RED CELL DISTRIBUTION WIDTH (BEAKER) (test 16.8 % 11.6-14.4 wpwt=260) PLATELET COUNT (BEAKER) (test dham=123) 299 K/CU MM 150-450 MEAN PLATELET VOLUME (BEAKER) (test lpsq=550) 9.9 fL 9.4-12.4 NUCLEATED RED BLOOD CELLS (BEAKER) (test 0 /100 WBC 0-0 xzlh=273) POCT-GLUCOSE [id number] 08:05:00 Test Item Value Reference Range Comments POC-GLUCOSE METER (BEAKER) 165 mg/dL 70-110 TESTED AT [address] (test kvce=4558) [facility] [address] [id number] 06:32:00 Test Item Value Reference Range Comments MAGNESIUM (BEAKER) (test clqt=670) 1.0 mg/dL 1.6-2.6 [id number] 06:31:00 Test Item Value Reference Range Comments PHOSPHORUS (BEAKER) (test ydgy=874) 2.9 mg/dL 2.3-4.7 BASIC METABOLIC [id number] 06:31:00 Test Item Value Reference Range Comments SODIUM (BEAKER) (test 138 meq/L 136-145 jbtm=753) POTASSIUM (BEAKER) (test 3.3 meq/L 3.5-5.1 ewjd=886) CHLORIDE (BEAKER) (test 103 meq/L 98-107 chmp=889) CO2 (BEAKER) (test 26 meq/L 22-29 rhzo=471) BLOOD UREA NITROGEN 13 mg/dL 7-21 (BEAKER) (test iryf=313) CREATININE (BEAKER) (test 0.85 mg/dL 0.57-1.25 objw=823) GLUCOSE RANDOM (BEAKER) 135 mg/dL 70-105 (test qypc=783) CALCIUM (BEAKER) (test 8.6 mg/dL 8.4-10.2 lvdc=754) EGFR (BEAKER) (test 87 mL/min/1.73 sq m ESTIMATED GFR IS NOT iico=2840) ACCURATE CREATININE CLEARANCE IN PREDICTING GLOMERULAR FILTRATION RATE. ESTIMATED GFR IS NOT APPLICABLE FOR DIALYSIS PATIENTS. POCT-GLUCOSE [id number] 21:42:00 Test Item Value Reference Range Comments POC-GLUCOSE METER (BEAKER) 139 mg/dL 70-110 TESTED AT [address] (test vvyj=0282) [facility] [address] POCT-GLUCOSE [id number] 17:39:00 Test Item Value Reference Range Comments POC-GLUCOSE METER (BEAKER) 225 mg/dL 70-110 TESTED AT [address] (test aiiv=0396) [facility] [address] POCT-GLUCOSE [id number] 12:02:00 Test Item Value Reference Range Comments POC-GLUCOSE METER (BEAKER) 153 mg/dL 70-110 TESTED AT [address] (test peux=0027) [place] [address] POCT-GLUCOSE [id number] 09:32:00 Test Item Value Reference Range Comments POC-GLUCOSE METER (BEAKER) 82 mg/dL 70-110 [facility]ED AT [facility] [address] [facility] (test ktgm=4095) [facility] [address] [id number] 06:51:00 Test Item Value Reference Range Comments PHOSPHORUS (BEAKER) (test wgea=504) 2.6 mg/dL 2.3-4.7 [id number] 06:51:00 Test Item Value Reference Range Comments MAGNESIUM (BEAKER) (test vlzq=768) 1.4 mg/dL 1.6-2.6 BASIC METABOLIC [id number] 06:51:00 Test Item Value Reference Range Comments SODIUM (BEAKER) (test 138 meq/L 136-145 vrum=559) POTASSIUM (BEAKER) (test 3.5 meq/L 3.5-5.1 oscn=117) CHLORIDE (BEAKER) (test 105 meq/L 98-107 ywwv=790) CO2 (BEAKER) (test 22 meq/L 22-29 ckcb=988) BLOOD UREA NITROGEN 14 mg/dL 7-21 (BEAKER) (test qabw=030) CREATININE (BEAKER) (test 0.85 mg/dL 0.57-1.25 zfog=856) GLUCOSE RANDOM (BEAKER) 87 mg/dL 70-105 (test ilun=727) CALCIUM (BEAKER) (test 9.1 mg/dL 8.4-10.2 beih=426) EGFR (BEAKER) (test 87 mL/min/1.73 sq m ESTIMATED GFR IS NOT hixb=1384) ACCURATE CREATININE CLEARANCE IN PREDICTING GLOMERULAR FILTRATION RATE. ESTIMATED GFR IS NOT APPLICABLE FOR DIALYSIS PATIENTS. CBC W/PLT COUNT & AUTO [id number] 05:59:00 Test Item Value Reference Range Comments WHITE BLOOD CELL COUNT (BEAKER) (test ican=677) 7.9 K/ L 3.5-10.5 RED BLOOD CELL COUNT (BEAKER) (test jesy=304) 3.03 M/ L 4.63-6.08 HEMOGLOBIN (BEAKER) (test akyf=995) 8.8 GM/DL 13.7-17.5 HEMATOCRIT (BEAKER) (test wcly=194) 29.2 % 40.1-51.0 MEAN CORPUSCULAR VOLUME (BEAKER) (test lgkf=434) 96.4 fL 79.0-92.2 MEAN CORPUSCULAR HEMOGLOBIN (BEAKER) (test 29.0 pg 25.7-32.2 xlae=594) MEAN CORPUSCULAR HEMOGLOBIN CONC (BEAKER) (test 30.1 GM/DL 32.3-36.5 ojwd=593) RED CELL DISTRIBUTION WIDTH (BEAKER) (test 16.8 % 11.6-14.4 fahb=819) PLATELET COUNT (BEAKER) (test cpcq=010) 309 K/CU MM 150-450 MEAN PLATELET VOLUME (BEAKER) (test unnc=331) 10.0 fL 9.4-12.4 NUCLEATED RED BLOOD CELLS (BEAKER) (test 0 /100 WBC 0-0 wzrr=271) NEUTROPHILS RELATIVE PERCENT (BEAKER) (test 60 % dgzu=486) LYMPHOCYTES RELATIVE PERCENT (BEAKER) (test 25 % eyjn=390) MONOCYTES RELATIVE PERCENT (BEAKER) (test 9 % foba=936) EOSINOPHILS RELATIVE PERCENT (BEAKER) (test 5 % wejj=405) BASOPHILS RELATIVE PERCENT (BEAKER) (test 1 % gxxx=609) NEUTROPHILS ABSOLUTE COUNT (BEAKER) (test 4.71 K/ L 1.78-5.38 sydb=444) LYMPHOCYTES ABSOLUTE COUNT (BEAKER) (test 1.93 K/ L 1.32-3.57 nnhm=613) MONOCYTES ABSOLUTE COUNT (BEAKER) (test 0.70 K/ L 0.30-0.82 ctgy=584) EOSINOPHILS ABSOLUTE COUNT (BEAKER) (test 0.36 K/ L 0.04-0.54 iwgu=106) BASOPHILS ABSOLUTE COUNT (BEAKER) (test 0.11 K/ L 0.01-0.08 koku=559) IMMATURE GRANULOCYTES-RELATIVE PERCENT (BEAKER) 1 % 0-1 (test dcyo=2816) POCT-GLUCOSE [id number] 22:42:00 Test Item Value Reference Range Comments POC-GLUCOSE METER (BEAKER) 143 mg/dL 70-110 TESTED AT [facility] [address] [facility] (test nrur=9437) [facility] [address] POCT-GLUCOSE [id number] 17:31:00 Test Item Value Reference Range Comments POC-GLUCOSE METER (BEAKER) 167 mg/dL 70-110 TESTED AT [address] (test ptyh=2837) [facility] [address] POCT-GLUCOSE [id number] 12:29:00 Test Item Value Reference Range Comments POC-GLUCOSE METER (BEAKER) 196 mg/dL 70-110 TESTED AT [address] (test exfw=5336) [facility] [address] POCT-GLUCOSE [id number] 07:54:00 Test Item Value Reference Range Comments POC-GLUCOSE METER (BEAKER) 138 mg/dL 70-110 TESTED AT [address] (test fwey=9171) [facility] [address] [id number] 06:13:00 Test Item Value Reference Range Comments PHOSPHORUS (BEAKER) (test aznn=797) 3.2 mg/dL 2.3-4.7 [id number] 06:13:00 Test Item Value Reference Range Comments MAGNESIUM (BEAKER) (test psxv=241) 1.3 mg/dL 1.6-2.6 CBC W/PLT COUNT & AUTO [id number] 05:50:00 Test Item Value Reference Range Comments WHITE BLOOD CELL COUNT (BEAKER) (test xurr=663) 6.1 K/ L 3.5-10.5 RED BLOOD CELL COUNT (BEAKER) (test gmre=661) 2.70 M/ L 4.63-6.08 HEMOGLOBIN (BEAKER) (test qwbj=182) 8.1 GM/DL 13.7-17.5 HEMATOCRIT (BEAKER) (test havg=461) 26.1 % 40.1-51.0 MEAN CORPUSCULAR VOLUME (BEAKER) (test xtwn=046) 96.7 fL 79.0-92.2 MEAN CORPUSCULAR HEMOGLOBIN (BEAKER) (test 30.0 pg 25.7-32.2 npnd=142) MEAN CORPUSCULAR HEMOGLOBIN CONC (BEAKER) (test 31.0 GM/DL 32.3-36.5 xwgv=370) RED CELL DISTRIBUTION WIDTH (BEAKER) (test 16.8 % 11.6-14.4 kbls=486) PLATELET COUNT (BEAKER) (test gtcl=611) 254 K/CU MM 150-450 MEAN PLATELET VOLUME (BEAKER) (test azrr=256) 10.7 fL 9.4-12.4 NUCLEATED RED BLOOD CELLS (BEAKER) (test 0 /100 WBC 0-0 hncp=745) NEUTROPHILS RELATIVE PERCENT (BEAKER) (test 58 % yozb=663) LYMPHOCYTES RELATIVE PERCENT (BEAKER) (test 25 % kxeg=420) MONOCYTES RELATIVE PERCENT (BEAKER) (test 11 % fcti=678) EOSINOPHILS RELATIVE PERCENT (BEAKER) (test 5 % msjc=510) BASOPHILS RELATIVE PERCENT (BEAKER) (test 2 % kepm=714) NEUTROPHILS ABSOLUTE COUNT (BEAKER) (test 3.53 K/ L 1.78-5.38 cfpa=622) LYMPHOCYTES ABSOLUTE COUNT (BEAKER) (test 1.54 K/ L 1.32-3.57 hdze=402) MONOCYTES ABSOLUTE COUNT (BEAKER) (test 0.64 K/ L 0.30-0.82 lssf=560) EOSINOPHILS ABSOLUTE COUNT (BEAKER) (test 0.28 K/ L 0.04-0.54 rfob=064) BASOPHILS ABSOLUTE COUNT (BEAKER) (test 0.09 K/ L 0.01-0.08 varw=473) IMMATURE GRANULOCYTES-RELATIVE PERCENT (BEAKER) 1 % 0-1 (test qfpz=4299) POCT-GLUCOSE [id number] 21:11:00 Test Item Value Reference Range Comments POC-GLUCOSE METER (BEAKER) 160 mg/dL 70-110 TESTED AT [address] (test pdcf=8069) [place] [address] BLOOD [id number] 18:00:00 Test Item Value Reference Range Comments CULTURE (BEAKER) (test cxej=1440) No growth in 5 days POCT-GLUCOSE [id number] 17:54:00 Test Item Value Reference Range Comments POC-GLUCOSE METER (BEAKER) 163 mg/dL 70-110 TESTED AT [address] (test mqgv=4559) [place] [address] POCT-GLUCOSE [id number] 12:41:00 Test Item Value Reference Range Comments POC-GLUCOSE METER (BEAKER) 133 mg/dL 70-110 TESTED AT [address] (test qqoz=1444) [place] [address] BLOOD [id number] 11:00:00 Test Item Value Reference Range Comments CULTURE (BEAKER) (test rsrw=4860) No growth in 5 days POCT-GLUCOSE [id number] 07:57:00 Test Item Value Reference Range Comments POC-GLUCOSE METER (BEAKER) 132 mg/dL 70-110 TESTED AT [facility] [address] (test cfzt=7809) [facility] [address] VANCOMYCIN LEVEL, [id number] 07:30:00 Test Item Value Reference Range Comments VANCOMYCIN RANDOM (BEAKER) (test fheg=080) 31.8 ug/mL Reference Range: No [id number] 07:09:00 Test Item Value Reference Range Comments PHOSPHORUS (BEAKER) (test immr=112) 3.5 mg/dL 2.3-4.7 [id number] 07:09:00 Test Item Value Reference Range Comments MAGNESIUM (BEAKER) (test zfdp=799) 1.4 mg/dL 1.6-2.6 BASIC METABOLIC [id number] 07:09:00 Test Item Value Reference Range Comments SODIUM (BEAKER) (test 137 meq/L 136-145 cpyc=672) POTASSIUM (BEAKER) (test 3.9 meq/L 3.5-5.1 gvzi=111) CHLORIDE (BEAKER) (test 100 meq/L 98-107 gfaw=551) CO2 (BEAKER) (test 26 meq/L 22-29 wqgo=556) BLOOD UREA NITROGEN 20 mg/dL 7-21 (BEAKER) (test vxuv=228) CREATININE (BEAKER) (test 0.94 mg/dL 0.57-1.25 rvth=841) GLUCOSE RANDOM (BEAKER) 133 mg/dL 70-105 (test diit=271) CALCIUM (BEAKER) (test 8.9 mg/dL 8.4-10.2 ntao=630) EGFR (BEAKER) (test 77 mL/min/1.73 sq m ESTIMATED GFR IS NOT tldm=2927) ACCURATE CREATININE CLEARANCE IN PREDICTING GLOMERULAR FILTRATION RATE. ESTIMATED GFR IS NOT APPLICABLE FOR DIALYSIS PATIENTS. CBC W/PLT COUNT & AUTO [id number] 06:27:00 Test Item Value Reference Range Comments WHITE BLOOD CELL COUNT (BEAKER) (test ampa=030) 7.1 K/ L 3.5-10.5 RED BLOOD CELL COUNT (BEAKER) (test vobv=581) 2.56 M/ L 4.63-6.08 HEMOGLOBIN (BEAKER) (test kjjk=606) 7.6 GM/DL 13.7-17.5 HEMATOCRIT (BEAKER) (test nukl=847) 24.3 % 40.1-51.0 MEAN CORPUSCULAR VOLUME (BEAKER) (test yhdy=293) 94.9 fL 79.0-92.2 MEAN CORPUSCULAR HEMOGLOBIN (BEAKER) (test 29.7 pg 25.7-32.2 mayo=988) MEAN CORPUSCULAR HEMOGLOBIN CONC (BEAKER) (test 31.3 GM/DL 32.3-36.5 zqhs=848) RED CELL DISTRIBUTION WIDTH (BEAKER) (test 16.8 % 11.6-14.4 tftc=353) PLATELET COUNT (BEAKER) (test exjm=564) 232 K/CU MM 150-450 MEAN PLATELET VOLUME (BEAKER) (test bglo=416) 10.5 fL 9.4-12.4 NUCLEATED RED BLOOD CELLS (BEAKER) (test 0 /100 WBC 0-0 bgaz=741) NEUTROPHILS RELATIVE PERCENT (BEAKER) (test 61 % lhxk=514) LYMPHOCYTES RELATIVE PERCENT (BEAKER) (test 24 % szwf=717) MONOCYTES RELATIVE PERCENT (BEAKER) (test 9 % bhow=453) EOSINOPHILS RELATIVE PERCENT (BEAKER) (test 4 % tcbu=131) BASOPHILS RELATIVE PERCENT (BEAKER) (test 1 % aqgd=967) NEUTROPHILS ABSOLUTE COUNT (BEAKER) (test 4.36 K/ L 1.78-5.38 nwbu=669) LYMPHOCYTES ABSOLUTE COUNT (BEAKER) (test 1.71 K/ L 1.32-3.57 tgvb=356) MONOCYTES ABSOLUTE COUNT (BEAKER) (test 0.66 K/ L 0.30-0.82 qnkg=134) EOSINOPHILS ABSOLUTE COUNT (BEAKER) (test 0.29 K/ L 0.04-0.54 texn=930) BASOPHILS ABSOLUTE COUNT (BEAKER) (test 0.05 K/ L 0.01-0.08 adtu=663) IMMATURE GRANULOCYTES-RELATIVE PERCENT (BEAKER) 0 % 0-1 (test loky=2444) POCT-GLUCOSE [id number] 21:46:00 Test Item Value Reference Range Comments POC-GLUCOSE METER (BEAKER) 262 mg/dL 70-110 TESTED AT [address] (test xslp=7468) [place] [id number] POCT-GLUCOSE [id number] 17:44:00 Test Item Value Reference Range Comments POC-GLUCOSE METER (BEAKER) 175 mg/dL 70-110 TESTED AT [address] (test vvji=2634) [place] [id number] POCT-GLUCOSE [id number] 12:25:00 Test Item Value Reference Range Comments POC-GLUCOSE METER (BEAKER) 173 mg/dL 70-110 TESTED AT [address] (test fntk=2196) [place] [address] BLOOD [id number] 12:00:00 Test Item Value Reference Range Comments CULTURE (BEAKER) (test lfhz=0911) No growth in 5 days POCT-GLUCOSE [id number] 08:52:00 Test Item Value Reference Range Comments POC-GLUCOSE METER (BEAKER) 183 mg/dL 70-110 TESTED AT [address] (test bfnv=1650) [place] [address] [id number] 06:01:00 Test Item Value Reference Range Comments PHOSPHORUS (BEAKER) (test kgft=684) 3.3 mg/dL 2.3-4.7 [id number] 06:01:00 Test Item Value Reference Range Comments MAGNESIUM (BEAKER) (test cciu=681) 1.8 mg/dL 1.6-2.6 BASIC METABOLIC [id number] 06:01:00 Test Item Value Reference Range Comments SODIUM (BEAKER) (test 138 meq/L 136-145 jndz=314) POTASSIUM (BEAKER) (test 4.0 meq/L 3.5-5.1 jvsf=767) CHLORIDE (BEAKER) (test 101 meq/L 98-107 etyk=013) CO2 (BEAKER) (test 25 meq/L 22-29 fkqo=146) BLOOD UREA NITROGEN 22 mg/dL 7-21 (BEAKER) (test vijn=577) CREATININE (BEAKER) (test 0.90 mg/dL 0.57-1.25 imwb=760) GLUCOSE RANDOM (BEAKER) 145 mg/dL 70-105 (test xgbv=629) CALCIUM (BEAKER) (test 8.7 mg/dL 8.4-10.2 ayiq=166) EGFR (BEAKER) (test 81 mL/min/1.73 sq m ESTIMATED GFR IS NOT mlff=8822) ACCURATE CREATININE CLEARANCE IN PREDICTING GLOMERULAR FILTRATION RATE. ESTIMATED GFR IS NOT APPLICABLE FOR DIALYSIS PATIENTS. CBC W/PLT COUNT & AUTO [id number] 04:59:00 Test Item Value Reference Range Comments WHITE BLOOD CELL COUNT (BEAKER) (test qwdy=518) 10.0 K/ L 3.5-10.5 RED BLOOD CELL COUNT (BEAKER) (test hvjn=206) 2.62 M/ L 4.63-6.08 HEMOGLOBIN (BEAKER) (test ohmk=837) 7.6 GM/DL 13.7-17.5 HEMATOCRIT (BEAKER) (test leds=176) 24.7 % 40.1-51.0 MEAN CORPUSCULAR VOLUME (BEAKER) (test bnvo=191) 94.3 fL 79.0-92.2 MEAN CORPUSCULAR HEMOGLOBIN (BEAKER) (test 29.0 pg 25.7-32.2 pslf=701) MEAN CORPUSCULAR HEMOGLOBIN CONC (BEAKER) (test 30.8 GM/DL 32.3-36.5 cotl=189) RED CELL DISTRIBUTION WIDTH (BEAKER) (test 16.9 % 11.6-14.4 jsil=520) PLATELET COUNT (BEAKER) (test qeep=504) 200 K/CU MM 150-450 MEAN PLATELET VOLUME (BEAKER) (test cylm=470) 11.1 fL 9.4-12.4 NUCLEATED RED BLOOD CELLS (BEAKER) (test 0 /100 WBC 0-0 oqjy=200) NEUTROPHILS RELATIVE PERCENT (BEAKER) (test 72 % yfyz=743) LYMPHOCYTES RELATIVE PERCENT (BEAKER) (test 17 % rmmc=039) MONOCYTES RELATIVE PERCENT (BEAKER) (test 7 % tvcu=549) EOSINOPHILS RELATIVE PERCENT (BEAKER) (test 2 % nktd=751) BASOPHILS RELATIVE PERCENT (BEAKER) (test 1 % xzhh=402) NEUTROPHILS ABSOLUTE COUNT (BEAKER) (test 7.18 K/ L 1.78-5.38 mskc=358) LYMPHOCYTES ABSOLUTE COUNT (BEAKER) (test 1.74 K/ L 1.32-3.57 jkzr=965) MONOCYTES ABSOLUTE COUNT (BEAKER) (test 0.73 K/ L 0.30-0.82 hdod=247) EOSINOPHILS ABSOLUTE COUNT (BEAKER) (test 0.21 K/ L 0.04-0.54 vrkt=141) BASOPHILS ABSOLUTE COUNT (BEAKER) (test 0.08 K/ L 0.01-0.08 xxme=342) IMMATURE GRANULOCYTES-RELATIVE PERCENT (BEAKER) 1 % 0-1 (test tcrh=2608) POCT-GLUCOSE [id number] 21:51:00 Test Item Value Reference Range Comments POC-GLUCOSE METER (BEAKER) 203 mg/dL 70-110 TESTED AT [address] (test sops=1586) [place] [address] POCT-GLUCOSE [id number] 17:35:00 Test Item Value Reference Range Comments POC-GLUCOSE METER (BEAKER) 218 mg/dL 70-110 TESTED AT [address] (test hqdg=1177) [place] [address] SPUTUM CULTURE + GRAM [id number] 15:48:00 Test Item Value Reference Range Comments CULTURE (BEAKER) (test METHICILLIN RESISTANT <1+ Methicillin resistant orhw=0048) STAPHYLOCOCCUS AUREUS Staphylococcus aureus Clindamycin (test code=10) Erythromycin (test code=4) Linezolid (test code=40) Nitrofurantoin (test code=23) Oxacillin (test code=14) Rifampin (test code=43) Tetracycline (test code=2) Trimethoprim + Sulfamethoxazole (test code=47) Vancomycin (test code=13) CULTURE (BEAKER) (test <1+ Streptococcus not ctnd=1508) group A beta hemolyticIdentified by serological grouping. GRAM STAIN RESULT No WBCs (BEAKER) (test alhu=3760) GRAM STAIN RESULT 0-5 epithelial cells (BEAKER) (test eqpm=156076) GRAM STAIN RESULT No organisms seen (BEAKER) (test tlxj=247297) <1+ Normal respiratory melanie presentPOCT-GLUCOSE [id number] 12:00:00 Test Item Value Reference Range Comments POC-GLUCOSE METER (BEAKER) 194 mg/dL 70-110 TESTED AT [address] (test qtbz=2501) [place] [address] BLOOD [id number] 12:00:00 Test Item Value Reference Range Comments CULTURE (BEAKER) (test dvke=3574) No growth in 5 days BLOOD [id number] 12:00:00 Test Item Value Reference Range Comments CULTURE (BEAKER) (test qirv=3733) No growth in 5 days POCT-GLUCOSE [id number] 05:58:00 Test Item Value Reference Range Comments POC-GLUCOSE METER (BEAKER) 228 mg/dL 70-110 TESTED AT [facility] [address] [facility] (test pcgt=7667) [facility] [address] [id number] 04:42:00 Test Item Value Reference Range Comments PHOSPHORUS (BEAKER) (test jyrx=394) 3.1 mg/dL 2.3-4.7 [id number] 04:42:00 Test Item Value Reference Range Comments MAGNESIUM (BEAKER) (test juvn=343) 1.9 mg/dL 1.6-2.6 BASIC METABOLIC [id number] 04:42:00 Test Item Value Reference Range Comments SODIUM (BEAKER) (test 138 meq/L 136-145 crux=617) POTASSIUM (BEAKER) (test 4.2 meq/L 3.5-5.1 nlyw=547) CHLORIDE (BEAKER) (test 101 meq/L 98-107 ullv=695) CO2 (BEAKER) (test 28 meq/L 22-29 xasc=808) BLOOD UREA NITROGEN 23 mg/dL 7-21 (BEAKER) (test ihbd=527) CREATININE (BEAKER) (test 0.87 mg/dL 0.57-1.25 pjsf=497) GLUCOSE RANDOM (BEAKER) 181 mg/dL 70-105 (test mnbr=945) CALCIUM (BEAKER) (test 8.7 mg/dL 8.4-10.2 tjny=075) EGFR (BEAKER) (test 84 mL/min/1.73 sq m ESTIMATED GFR IS NOT zrgb=9799) ACCURATE CREATININE CLEARANCE IN PREDICTING GLOMERULAR FILTRATION RATE. ESTIMATED GFR IS NOT APPLICABLE FOR DIALYSIS PATIENTS. CBC W/PLT COUNT & AUTO [id number] 04:27:00 Test Item Value Reference Range Comments WHITE BLOOD CELL COUNT (BEAKER) (test fnte=781) 15.8 K/ L 3.5-10.5 RED BLOOD CELL COUNT (BEAKER) (test cssy=485) 2.66 M/ L 4.63-6.08 HEMOGLOBIN (BEAKER) (test wmdt=001) 7.8 GM/DL 13.7-17.5 HEMATOCRIT (BEAKER) (test mvgy=371) 25.2 % 40.1-51.0 MEAN CORPUSCULAR VOLUME (BEAKER) (test kbmx=763) 94.7 fL 79.0-92.2 MEAN CORPUSCULAR HEMOGLOBIN (BEAKER) (test 29.3 pg 25.7-32.2 boue=196) MEAN CORPUSCULAR HEMOGLOBIN CONC (BEAKER) (test 31.0 GM/DL 32.3-36.5 snuk=251) RED CELL DISTRIBUTION WIDTH (BEAKER) (test 17.0 % 11.6-14.4 dleq=530) PLATELET COUNT (BEAKER) (test nlpb=724) 219 K/CU MM 150-450 MEAN PLATELET VOLUME (BEAKER) (test kyjp=031) 11.0 fL 9.4-12.4 NUCLEATED RED BLOOD CELLS (BEAKER) (test 0 /100 WBC 0-0 clnu=470) NEUTROPHILS RELATIVE PERCENT (BEAKER) (test 82 % xvjf=063) LYMPHOCYTES RELATIVE PERCENT (BEAKER) (test 10 % knhw=893) MONOCYTES RELATIVE PERCENT (BEAKER) (test 6 % bzdv=871) EOSINOPHILS RELATIVE PERCENT (BEAKER) (test 1 % zfdb=194) BASOPHILS RELATIVE PERCENT (BEAKER) (test 0 % zmhw=026) NEUTROPHILS ABSOLUTE COUNT (BEAKER) (test 12.89 K/ L 1.78-5.38 guja=382) LYMPHOCYTES ABSOLUTE COUNT (BEAKER) (test 1.61 K/ L 1.32-3.57 gfqy=497) MONOCYTES ABSOLUTE COUNT (BEAKER) (test 0.95 K/ L 0.30-0.82 ctkc=829) EOSINOPHILS ABSOLUTE COUNT (BEAKER) (test 0.13 K/ L 0.04-0.54 wmkl=004) BASOPHILS ABSOLUTE COUNT (BEAKER) (test 0.07 K/ L 0.01-0.08 smdw=031) IMMATURE GRANULOCYTES-RELATIVE PERCENT (BEAKER) 1 % 0-1 (test fkhc=5870) POCT-GLUCOSE [id number] 00:11:00 Test Item Value Reference Range Comments POC-GLUCOSE METER (BEAKER) 194 mg/dL 70-110 TESTED AT [facility] [address] [facility] (test yfjo=7167) [facility] [address] [id number] 20:46:00 Test Item Value Reference Range Comments MAGNESIUM (BEAKER) (test vzmu=903) 1.9 mg/dL 1.6-2.6 BASIC METABOLIC [id number] 20:46:00 Test Item Value Reference Range Comments SODIUM (BEAKER) (test 138 meq/L 136-145 eren=489) POTASSIUM (BEAKER) (test 4.2 meq/L 3.5-5.1 lhkj=514) CHLORIDE (BEAKER) (test 100 meq/L 98-107 dpye=798) CO2 (BEAKER) (test 29 meq/L 22-29 hcsz=398) BLOOD UREA NITROGEN 22 mg/dL 7-21 (BEAKER) (test mgqq=725) CREATININE (BEAKER) (test 0.85 mg/dL 0.57-1.25 evtu=000) GLUCOSE RANDOM (BEAKER) 293 mg/dL 70-105 (test ihce=067) CALCIUM (BEAKER) (test 8.9 mg/dL 8.4-10.2 kvis=377) EGFR (BEAKER) (test 87 mL/min/1.73 sq m ESTIMATED GFR IS NOT lnwc=5658) ACCURATE CREATININE CLEARANCE IN PREDICTING GLOMERULAR FILTRATION RATE. ESTIMATED GFR IS NOT APPLICABLE FOR DIALYSIS PATIENTS. POCT-GLUCOSE [id number] 19:29:00 Test Item Value Reference Range Comments POC-GLUCOSE METER (BEAKER) 317 mg/dL 70-110 TESTED AT [facility] [address] [facility] (test agkc=2298) [facility] [address] BLOOD GAS, [id number] 18:31:00 Test Item Value Reference Range Comments PH VENOUS (BEAKER) (test xegp=165) 7.46 7.32-7.42 PCO2 VENOUS (BEAKER) (test hsgt=545) 48 mmHg 41-51 PO2 VENOUS (BEAKER) (test bdjc=583) 18 mmHg 25-40 O2 SATURATION VENOUS (BEAKER) (test isoo=889) 29.8 % 40.0-70.0 HCO3 VENOUS (BEAKER) (test qalx=415) 33 mmol/L 21-29 BASE EXCESS VENOUS (BEAKER) (test wjct=676) 8.6 mmol/L -2.0-3.0 PATIENT TEMPERATURE (BEAKER) (test zyzm=3885) 37.0 C From midlinePOCT-GLUCOSE [id number] 12:03:00 Test Item Value Reference Range Comments POC-GLUCOSE METER (BEAKER) 107 mg/dL 70-110 TESTED AT [address] (test byzn=6857) [facility] [address] POCT-GLUCOSE [id number] 12:03:00 Test Item Value Reference Range Comments POC-GLUCOSE METER (BEAKER) 75 mg/dL 70-110 TESTED AT [address] (test kwam=6464) [facility] [address] [id number] 06:12:00 Test Item Value Reference Range Comments FERRITIN (BEAKER) (test bgkk=964) 334 ng/mL 5-275 VITAMIN B12 AND [id number] 06:12:00 Test Item Value Reference Range Comments VITAMIN B12 (BEAKER) (test jyga=630) 508 pg/mL 213-816 FOLATE (BEAKER) (test fgxq=122) 16.5 ng/mL >=7.0 POCT-GLUCOSE [id number] 06:00:00 Test Item Value Reference Range Comments POC-GLUCOSE METER (BEAKER) 84 mg/dL 70-110 TESTED AT [address] (test dwuc=7756) [place] [id number] IRON, TIBC, % SAT. (WITHOUT FERRITIN)[id number] 05:42:00 Test Item Value Reference Range Comments IRON (BEAKER) (test wurh=405) 15 ug/dL 40-160 TOTAL IRON BINDING CAPACITY (BEAKER) (test 183 ug/dL 250-450 rqbi=120) IRON % SATURATION (2) (BEAKER) (test qjcv=3975) 8 % 20-55 [id number] 05:42:00 Test Item Value Reference Range Comments PHOSPHORUS (BEAKER) (test pkqo=048) 2.8 mg/dL 2.3-4.7 [id number] 05:42:00 Test Item Value Reference Range Comments MAGNESIUM (BEAKER) (test bpws=423) 1.6 mg/dL 1.6-2.6 BASIC METABOLIC [id number] 05:42:00 Test Item Value Reference Range Comments SODIUM (BEAKER) (test 140 meq/L 136-145 wwcr=758) POTASSIUM (BEAKER) (test 3.7 meq/L 3.5-5.1 trbg=059) CHLORIDE (BEAKER) (test 103 meq/L 98-107 pvfy=376) CO2 (BEAKER) (test 29 meq/L 22-29 drml=136) BLOOD UREA NITROGEN 25 mg/dL 7-21 (BEAKER) (test mtce=593) CREATININE (BEAKER) (test 0.75 mg/dL 0.57-1.25 czok=938) GLUCOSE RANDOM (BEAKER) 70 mg/dL 70-105 (test tgqz=262) CALCIUM (BEAKER) (test 8.8 mg/dL 8.4-10.2 salg=640) EGFR (BEAKER) (test 100 mL/min/1.73 sq m ESTIMATED GFR IS NOT wxap=5588) ACCURATE CREATININE CLEARANCE IN PREDICTING GLOMERULAR FILTRATION RATE. ESTIMATED GFR IS NOT APPLICABLE FOR DIALYSIS PATIENTS. CBC W/PLT COUNT & AUTO [id number] 05:25:00 Test Item Value Reference Range Comments WHITE BLOOD CELL COUNT (BEAKER) (test rwpn=229) 12.1 K/ L 3.5-10.5 RED BLOOD CELL COUNT (BEAKER) (test mxjh=184) 2.62 M/ L 4.63-6.08 HEMOGLOBIN (BEAKER) (test eviu=619) 7.8 GM/DL 13.7-17.5 HEMATOCRIT (BEAKER) (test nxka=187) 24.9 % 40.1-51.0 MEAN CORPUSCULAR VOLUME (BEAKER) (test cptk=330) 95.0 fL 79.0-92.2 MEAN CORPUSCULAR HEMOGLOBIN (BEAKER) (test 29.8 pg 25.7-32.2 rzma=433) MEAN CORPUSCULAR HEMOGLOBIN CONC (BEAKER) (test 31.3 GM/DL 32.3-36.5 ciyf=043) RED CELL DISTRIBUTION WIDTH (BEAKER) (test 17.2 % 11.6-14.4 gtvl=036) PLATELET COUNT (BEAKER) (test umvm=374) 188 K/CU MM 150-450 MEAN PLATELET VOLUME (BEAKER) (test bhty=414) 10.5 fL 9.4-12.4 NUCLEATED RED BLOOD CELLS (BEAKER) (test 0 /100 WBC 0-0 hqdm=164) NEUTROPHILS RELATIVE PERCENT (BEAKER) (test 71 % tcif=985) LYMPHOCYTES RELATIVE PERCENT (BEAKER) (test 16 % nygx=814) MONOCYTES RELATIVE PERCENT (BEAKER) (test 9 % ssnv=011) EOSINOPHILS RELATIVE PERCENT (BEAKER) (test 3 % mkyd=299) BASOPHILS RELATIVE PERCENT (BEAKER) (test 1 % divt=855) NEUTROPHILS ABSOLUTE COUNT (BEAKER) (test 8.58 K/ L 1.78-5.38 lyku=438) LYMPHOCYTES ABSOLUTE COUNT (BEAKER) (test 1.87 K/ L 1.32-3.57 dtkh=296) MONOCYTES ABSOLUTE COUNT (BEAKER) (test 1.12 K/ L 0.30-0.82 hlbn=047) EOSINOPHILS ABSOLUTE COUNT (BEAKER) (test 0.33 K/ L 0.04-0.54 dezz=481) BASOPHILS ABSOLUTE COUNT (BEAKER) (test 0.09 K/ L 0.01-0.08 iiov=659) IMMATURE GRANULOCYTES-RELATIVE PERCENT (BEAKER) 1 % 0-1 (test cuww=6807) POCT-GLUCOSE [id number] 23:41:00 Test Item Value Reference Range Comments POC-GLUCOSE METER (BEAKER) 180 mg/dL 70-110 TESTED AT [address] (test bmlv=8267) [facility] [id number] RAD, ABDOMEN/KUB, 1 VIEW [id number] 22:29:00Reason for exam:->feeding tube placementFINAL REPORT Comparison: 06/07/2017 at 9:51 PM TECHNIQUE: Frontal image of the abdomen FINDINGS: Feeding tube has been repositioned. Tip now projects in the distal stomach. No other significant change. Signed: Kali Shay MDReport Verified Date/Time: 06/07/2017 22:29:27 Reading Location: [address] Consult Reading Room RAD, ABDOMEN/KUB, 1 VIEW [id number] 22:16:00Reason for exam:->feeding tube placementFINAL REPORT Comparison: 06/03/2017 TECHNIQUE: Frontal image of the abdomen FINDINGS: Feeding tube has been advanced. Distal portion is turned back upon itself and the tip projects in the fundus. Bowel gas pattern is nonspecific. Signed: Kali Shay MDReport Verified Date/Time: 06/07/2017 22:16:52 Reading Location: [facility] C0[facility] Consult Reading Room BASI METABOLIC [id number] 19:04: 00 Test Item Value Reference Range Comments SODIUM (BEAKER) (test 138 meq/L 136-145 nmhh=842) POTASSIUM (BEAKER) (test 4.1 meq/L 3.5-5.1 qzof=689) CHLORIDE (BEAKER) (test 102 meq/L 98-107 kart=838) CO2 (BEAKER) (test 28 meq/L 22-29 booh=991) BLOOD UREA NITROGEN 27 mg/dL 7-21 (BEAKER) (test fmce=191) CREATININE (BEAKER) (test 0.83 mg/dL 0.57-1.25 qwoe=747) GLUCOSE RANDOM (BEAKER) 179 mg/dL 70-105 (test vyhx=425) CALCIUM (BEAKER) (test 8.6 mg/dL 8.4-10.2 hbuh=716) EGFR (BEAKER) (test 89 mL/min/1.73 sq m ESTIMATED GFR IS NOT mwjc=9645) ACCURATE CREATININE CLEARANCE IN PREDICTING GLOMERULAR FILTRATION RATE. ESTIMATED GFR IS NOT APPLICABLE FOR DIALYSIS PATIENTS. POCT-GLUCOSE [id number] 18:24:00 Test Item Value Reference Range Comments POC-GLUCOSE METER (BEAKER) 198 mg/dL 70-110 TESTED AT [address] (test xezm=7731) [facility] [address] [id number] 17:53:00 Test Item Value Reference Range Comments PROCALCITONIN (BEAKER) (test cmnc=2373) < ng/mL <0.05 SEPSIS RISK (ng/mL)Low: 0.05-0.50Intermediate: 0.51-2.00High: & gt;=2.01RETICULOCYTE [id number] 17:06:00 Test Item Value Reference Range Comments RETICULOCYTE COUNT PCT (BEAKER) (test zcqn=357) 2.7 % 0.5-1.8 POCT-GLUCOSE [id number] 13:07:00 Test Item Value Reference Range Comments POC-GLUCOSE METER (BEAKER) 240 mg/dL 70-110 TESTED AT [address] (test jzzb=2045) [facility] [address] RAD, CHEST, 1 VIEW, NON [id number] 08:42:00Reason for exam:-> intubatedShould this be performed at the bedside?->YesFINAL REPORT Chest one view compared to June 06, 2017 Discussion: Left chest pacemaker, feeding tube, right IJ line in place. There is pulmonary congestion with subtle suspected airspace opacity left lung base all unchanged. No gross effusion or pneumothorax. Signed: Jerel Noguera Verified Date/Time: 03/2017 08:42:41 Reading Location: [facility] Radiology Reading Room TROPONIN [id number] 05:52:00 Test Item Value Reference Range Comments TROPONIN I (BEAKER) (test vffi=346) 0.03 ng/mL 0.00-0.03 Troponin I (TnI) levels [...] acidosis, acute neurological disease, and persistent tachyarrhythmia.POCT-GLUCOSE [id number] 05:48:00 Test Item Value Reference Range Comments POC-GLUCOSE METER (BEAKER) 148 mg/dL 70-110 TESTED AT [address] (test uipt=9118) [place] [id number] 05:43:00 Test Item Value Reference Range Comments PHOSPHORUS (BEAKER) (test aydj=765) 2.9 mg/dL 2.3-4.7 [id number] 05:43:00 Test Item Value Reference Range Comments MAGNESIUM (BEAKER) (test epdy=903) 1.6 mg/dL 1.6-2.6 BASIC METABOLIC [id number] 05:43:00 Test Item Value Reference Range Comments SODIUM (BEAKER) (test 139 meq/L 136-145 bfqy=088) POTASSIUM (BEAKER) (test 3.8 meq/L 3.5-5.1 ylwj=476) CHLORIDE (BEAKER) (test 104 meq/L 98-107 jfsm=139) CO2 (BEAKER) (test 26 meq/L 22-29 toyz=443) BLOOD UREA NITROGEN 31 mg/dL 7-21 (BEAKER) (test edck=035) CREATININE (BEAKER) (test 0.82 mg/dL 0.57-1.25 yzar=008) GLUCOSE RANDOM (BEAKER) 136 mg/dL 70-105 (test nanj=267) CALCIUM (BEAKER) (test 8.1 mg/dL 8.4-10.2 ucgh=805) EGFR (BEAKER) (test 90 mL/min/1.73 sq m ESTIMATED GFR IS NOT xezo=3561) ACCURATE CREATININE CLEARANCE IN PREDICTING GLOMERULAR FILTRATION RATE. ESTIMATED GFR IS NOT APPLICABLE FOR DIALYSIS PATIENTS. LACTIC ACID, VENOUS, WHOLE [id number] 05:41:00 Test Item Value Reference Range Comments LACTATE BLOOD VENOUS (2) (BEAKER) (test 0.9 mmol/L 0.5-2.2 xqjw=7100) Effective 06/10/2015: Units/Reference Range ChangeNew: 0.5-2.2 mmol/L Previous: 5 -20 mg/dLCBC W/PLT COUNT & AUTO [id number] 05:26:00 Test Item Value Reference Range Comments WHITE BLOOD CELL COUNT (BEAKER) (test kpin=152) 10.9 K/ L 3.5-10.5 RED BLOOD CELL COUNT (BEAKER) (test btur=090) 2.50 M/ L 4.63-6.08 HEMOGLOBIN (BEAKER) (test aooi=531) 7.5 GM/DL 13.7-17.5 HEMATOCRIT (BEAKER) (test mbls=337) 23.8 % 40.1-51.0 MEAN CORPUSCULAR VOLUME (BEAKER) (test wfmg=102) 95.2 fL 79.0-92.2 MEAN CORPUSCULAR HEMOGLOBIN (BEAKER) (test 30.0 pg 25.7-32.2 bwlu=920) MEAN CORPUSCULAR HEMOGLOBIN CONC (BEAKER) (test 31.5 GM/DL 32.3-36.5 wivr=882) RED CELL DISTRIBUTION WIDTH (BEAKER) (test 17.3 % 11.6-14.4 cuoe=177) PLATELET COUNT (BEAKER) (test lcbr=735) 159 K/CU MM 150-450 MEAN PLATELET VOLUME (BEAKER) (test pdts=437) 10.6 fL 9.4-12.4 NUCLEATED RED BLOOD CELLS (BEAKER) (test 0 /100 WBC 0-0 ddjt=168) NEUTROPHILS RELATIVE PERCENT (BEAKER) (test 69 % dydp=934) LYMPHOCYTES RELATIVE PERCENT (BEAKER) (test 17 % zamq=018) MONOCYTES RELATIVE PERCENT (BEAKER) (test 9 % vidy=323) EOSINOPHILS RELATIVE PERCENT (BEAKER) (test 4 % xugd=744) BASOPHILS RELATIVE PERCENT (BEAKER) (test 1 % nyld=409) NEUTROPHILS ABSOLUTE COUNT (BEAKER) (test 7.59 K/ L 1.78-5.38 hjkz=387) LYMPHOCYTES ABSOLUTE COUNT (BEAKER) (test 1.82 K/ L 1.32-3.57 npfu=798) MONOCYTES ABSOLUTE COUNT (BEAKER) (test 1.03 K/ L 0.30-0.82 wedw=415) EOSINOPHILS ABSOLUTE COUNT (BEAKER) (test 0.38 K/ L 0.04-0.54 micc=279) BASOPHILS ABSOLUTE COUNT (BEAKER) (test 0.05 K/ L 0.01-0.08 xqfd=523) IMMATURE GRANULOCYTES-RELATIVE PERCENT (BEAKER) 1 % 0-1 (test qxww=5148) B-TYPE NATRIURETIC FACTOR (BNP)2017-06-07 00:39:00 Test Item Value Reference Range Comments B-TYPE NATRIURETIC PEPTIDE (BEAKER) (test 661 pg/mL 0-100 aanl=007) BASIC METABOLIC [id number] 00:34:00 Test Item Value Reference Range Comments SODIUM (BEAKER) (test 138 meq/L 136-145 wbek=118) POTASSIUM (BEAKER) (test 4.0 meq/L 3.5-5.1 ntll=362) CHLORIDE (BEAKER) (test 105 meq/L 98-107 ehuh=985) CO2 (BEAKER) (test 24 meq/L 22-29 bmee=791) BLOOD UREA NITROGEN 29 mg/dL 7-21 (BEAKER) (test cqak=886) CREATININE (BEAKER) (test 0.81 mg/dL 0.57-1.25 gehk=843) GLUCOSE RANDOM (BEAKER) 156 mg/dL 70-105 (test dwqp=800) CALCIUM (BEAKER) (test 8.1 mg/dL 8.4-10.2 vpip=755) EGFR (BEAKER) (test 92 mL/min/1.73 sq m ESTIMATED GFR IS NOT yhoa=1451) ACCURATE CREATININE CLEARANCE IN PREDICTING GLOMERULAR FILTRATION RATE. ESTIMATED GFR IS NOT APPLICABLE FOR DIALYSIS PATIENTS. POCT-GLUCOSE [id number] 23:42:00 Test Item Value Reference Range Comments POC-GLUCOSE METER (BEAKER) 195 mg/dL 70-110 TESTED AT [address] (test aztk=3432) [place] [id number] BASIC METABOLIC [id number] 17:50:00 Test Item Value Reference Range Comments SODIUM (BEAKER) (test 138 meq/L 136-145 tfor=146) POTASSIUM (BEAKER) (test 3.9 meq/L 3.5-5.1 nbyn=849) CHLORIDE (BEAKER) (test 105 meq/L 98-107 alit=756) CO2 (BEAKER) (test 25 meq/L 22-29 bhnv=535) BLOOD UREA NITROGEN 31 mg/dL 7-21 (BEAKER) (test opqg=517) CREATININE (BEAKER) (test 0.88 mg/dL 0.57-1.25 fcdd=316) GLUCOSE RANDOM (BEAKER) 182 mg/dL 70-105 (test okdm=619) CALCIUM (BEAKER) (test 8.4 mg/dL 8.4-10.2 oryd=115) EGFR (BEAKER) (test 83 mL/min/1.73 sq m ESTIMATED GFR IS NOT budc=3656) ACCURATE CREATININE CLEARANCE IN PREDICTING GLOMERULAR FILTRATION RATE. ESTIMATED GFR IS NOT APPLICABLE FOR DIALYSIS PATIENTS. POCT-GLUCOSE [id number] 17:48:00 Test Item Value Reference Range Comments POC-GLUCOSE METER (BEAKER) 228 mg/dL 70-110 TESTED AT [address] (test tyfv=5796) [place] [id number] POCT-GLUCOSE [id number] 12:03:00 Test Item Value Reference Range Comments POC-GLUCOSE METER (BEAKER) 237 mg/dL 70-110 TESTED AT [facility] [address] (test nfxv=5460) [facility] [address] BASIC METABOLIC [id number] 09:39:00 Test Item Value Reference Range Comments SODIUM (BEAKER) (test 140 meq/L 136-145 secr=199) POTASSIUM (BEAKER) (test 4.0 meq/L 3.5-5.1 ompq=946) CHLORIDE (BEAKER) (test 108 meq/L 98-107 weqe=891) CO2 (BEAKER) (test 25 meq/L 22-29 rtdr=164) BLOOD UREA NITROGEN 33 mg/dL 7-21 (BEAKER) (test xjnd=429) CREATININE (BEAKER) (test 0.88 mg/dL 0.57-1.25 dync=690) GLUCOSE RANDOM (BEAKER) 184 mg/dL 70-105 (test htuq=247) CALCIUM (BEAKER) (test 8.2 mg/dL 8.4-10.2 hour=320) EGFR (BEAKER) (test 83 mL/min/1.73 sq m ESTIMATED GFR IS NOT jqgd=1838) ACCURATE CREATININE CLEARANCE IN PREDICTING GLOMERULAR FILTRATION RATE. ESTIMATED GFR IS NOT APPLICABLE FOR DIALYSIS PATIENTS. CALCIUM, [id number] 04:52:00 Test Item Value Reference Range Comments CALCIUM IONIZED (BEAKER) (test gzdy=050) 1.08 mmol/L 1.12-1.27 PH, BLOOD (BEAKER) (test ijpy=4046) 7.42 [id number] 04:43:00 Test Item Value Reference Range Comments PHOSPHORUS (BEAKER) (test btuh=074) 3.5 mg/dL 2.3-4.7 [id number] 04:43:00 Test Item Value Reference Range Comments MAGNESIUM (BEAKER) (test wmgx=229) 1.8 mg/dL 1.6-2.6 LACTIC ACID, VENOUS, WHOLE [id number] 04:34:00 Test Item Value Reference Range Comments LACTATE BLOOD VENOUS (2) (BEAKER) (test 1.6 mmol/L 0.5-2.2 inhp=1076) Effective 06/10/2015: Units/Reference Range ChangeNew: 0.5-2.2 mmol/L Previous: 5 -20 mg/dLRAD, CHEST, 1 VIEW, NON [id number] 04:29:00Reason for exam:-> intubatedShould this be performed [...] Verified Date/Time: 06/06/2017 04 :29:24 Reading Location: [address] Transitional Reading Room CBC W/PLT COUNT & AUTO [id number] 04:14:00 Test Item Value Reference Range Comments WHITE BLOOD CELL COUNT (BEAKER) (test djmx=104) 10.8 K/ L 3.5-10.5 RED BLOOD CELL COUNT (BEAKER) (test okcl=770) 2.50 M/ L 4.63-6.08 HEMOGLOBIN (BEAKER) (test wsrl=773) 7.6 GM/DL 13.7-17.5 HEMATOCRIT (BEAKER) (test erqn=821) 24.4 % 40.1-51.0 MEAN CORPUSCULAR VOLUME (BEAKER) (test lyco=775) 97.6 fL 79.0-92.2 MEAN CORPUSCULAR HEMOGLOBIN (BEAKER) (test 30.4 pg 25.7-32.2 nhvi=951) MEAN CORPUSCULAR HEMOGLOBIN CONC (BEAKER) (test 31.1 GM/DL 32.3-36.5 rebd=184) RED CELL DISTRIBUTION WIDTH (BEAKER) (test 18.1 % 11.6-14.4 pisz=509) PLATELET COUNT (BEAKER) (test upsu=814) 154 K/CU MM 150-450 MEAN PLATELET VOLUME (BEAKER) (test duav=793) 10.6 fL 9.4-12.4 NUCLEATED RED BLOOD CELLS (BEAKER) (test 0 /100 WBC 0-0 fgal=074) NEUTROPHILS RELATIVE PERCENT (BEAKER) (test 71 % kuak=666) LYMPHOCYTES RELATIVE PERCENT (BEAKER) (test 17 % ipig=668) MONOCYTES RELATIVE PERCENT (BEAKER) (test 9 % zxlk=715) EOSINOPHILS RELATIVE PERCENT (BEAKER) (test 3 % rmea=757) BASOPHILS RELATIVE PERCENT (BEAKER) (test 0 % tksp=806) NEUTROPHILS ABSOLUTE COUNT (BEAKER) (test 7.60 K/ L 1.78-5.38 qiku=543) LYMPHOCYTES ABSOLUTE COUNT (BEAKER) (test 1.79 K/ L 1.32-3.57 psgo=591) MONOCYTES ABSOLUTE COUNT (BEAKER) (test 0.99 K/ L 0.30-0.82 wkjz=621) EOSINOPHILS ABSOLUTE COUNT (BEAKER) (test 0.30 K/ L 0.04-0.54 efpn=783) BASOPHILS ABSOLUTE COUNT (BEAKER) (test 0.03 K/ L 0.01-0.08 gpjv=357) IMMATURE GRANULOCYTES-RELATIVE PERCENT (BEAKER) 1 % 0-1 (test jxdo=9807) POCT-GLUCOSE [id number] 04:08:00 Test Item Value Reference Range Comments POC-GLUCOSE METER (BEAKER) 262 mg/dL 70-110 TESTED AT [address] (test nmwz=0804) [place] [address] POCT-GLUCOSE [id number] 04:08:00 Test Item Value Reference Range Comments POC-GLUCOSE METER (BEAKER) 288 mg/dL 70-110 TESTED AT [address] (test lqeu=4387) [place] [address] POCT-GLUCOSE [id number] 03:43:00 Test Item Value Reference Range Comments POC-GLUCOSE METER (BEAKER) 248 mg/dL 70-110 TESTED AT [address] (test jfiy=0866) [place] [address] BASIC METABOLIC [id number] 01:47:00 Test Item Value Reference Range Comments SODIUM (BEAKER) (test 140 meq/L 136-145 azlo=418) POTASSIUM (BEAKER) (test 3.9 meq/L 3.5-5.1 ztzv=557) CHLORIDE (BEAKER) (test 109 meq/L 98-107 tyjp=528) CO2 (BEAKER) (test 24 meq/L 22-29 suik=971) BLOOD UREA NITROGEN 33 mg/dL 7-21 (BEAKER) (test iqfy=911) CREATININE (BEAKER) (test 0.86 mg/dL 0.57-1.25 jraw=924) GLUCOSE RANDOM (BEAKER) 231 mg/dL 70-105 (test trwf=812) CALCIUM (BEAKER) (test 7.9 mg/dL 8.4-10.2 kqar=168) EGFR (BEAKER) (test 86 mL/min/1.73 sq m ESTIMATED GFR IS NOT ilwl=1478) ACCURATE CREATININE CLEARANCE IN PREDICTING GLOMERULAR FILTRATION RATE. ESTIMATED GFR IS NOT APPLICABLE FOR DIALYSIS PATIENTS. VANCOMYCIN LEVEL, [id number] 21:49:00 Test Item Value Reference Range Comments VANCOMYCIN TROUGH (BEAKER) (test uwcv=135) 21.4 ug/mL 10.0-20.0 POCT-GLUCOSE [id number] 18:34:00 Test Item Value Reference Range Comments POC-GLUCOSE METER (BEAKER) 250 mg/dL 70-110 TESTED AT [address] (test afph=2560) [facility] [address] [id number] 18:00:00 Test Item Value Reference Range Comments MAGNESIUM (BEAKER) (test iggw=914) 1.4 mg/dL 1.6-2.6 BASIC METABOLIC [id number] 18:00:00 Test Item Value Reference Range Comments SODIUM (BEAKER) (test 143 meq/L 136-145 kdip=032) POTASSIUM (BEAKER) (test 3.8 meq/L 3.5-5.1 feid=423) CHLORIDE (BEAKER) (test 110 meq/L 98-107 dbim=018) CO2 (BEAKER) (test 26 meq/L 22-29 aohf=272) BLOOD UREA NITROGEN 33 mg/dL 7-21 (BEAKER) (test ruer=049) CREATININE (BEAKER) (test 0.81 mg/dL 0.57-1.25 dugx=058) GLUCOSE RANDOM (BEAKER) 218 mg/dL 70-105 (test sjub=968) CALCIUM (BEAKER) (test 8.4 mg/dL 8.4-10.2 rxje=813) EGFR (BEAKER) (test 92 mL/min/1.73 sq m ESTIMATED GFR IS NOT gqcl=4594) ACCURATE CREATININE CLEARANCE IN PREDICTING GLOMERULAR FILTRATION RATE. ESTIMATED GFR IS NOT APPLICABLE FOR DIALYSIS PATIENTS. POCT-GLUCOSE [id number] 11:41:00 Test Item Value Reference Range Comments POC-GLUCOSE METER (BEAKER) 214 mg/dL 70-110 TESTED AT [facility] [address] [facility] (test wccy=6237) [facility] [address] CREATINE KINASE (CK), TOTAL AND [id number] 10:29:00 Test Item Value Reference Range Comments CREATINE KINASE TOTAL (BEAKER) (test cviq=106) 45 U/L 29-200 CREATINE KINASE-MB (BEAKER) (test qogg=909) 0.5 ng/mL 0.0-6.6 CREATINE KINASE-MB INDEX (BEAKER) (test fbnm=832) 1.1 % CK-MB Reference Range:<6.7 Normal6.7-10.0 Borderline>10.0 AbnormalBASIC METABOLIC [id number] 10:23:00 Test Item Value Reference Range Comments SODIUM (BEAKER) (test 144 meq/L 136-145 iyve=643) POTASSIUM (BEAKER) (test 3.7 meq/L 3.5-5.1 lbed=016) CHLORIDE (BEAKER) (test 113 meq/L 98-107 hoxd=313) CO2 (BEAKER) (test 24 meq/L 22-29 jinn=712) BLOOD UREA NITROGEN 33 mg/dL 7-21 (BEAKER) (test sfre=977) CREATININE (BEAKER) (test 0.81 mg/dL 0.57-1.25 qomx=378) GLUCOSE RANDOM (BEAKER) 205 mg/dL 70-105 (test iicg=777) CALCIUM (BEAKER) (test 8.1 mg/dL 8.4-10.2 qvtc=253) EGFR (BEAKER) (test 92 mL/min/1.73 sq m ESTIMATED GFR IS NOT xbsj=3500) ACCURATE CREATININE CLEARANCE IN PREDICTING GLOMERULAR FILTRATION RATE. ESTIMATED GFR IS NOT APPLICABLE FOR DIALYSIS PATIENTS. RAD, CHEST, 1 VIEW, NON [id number] 07:34:00Reason for exam:-> intubatedShould this be performed at the bedside?->YesFINAL REPORT Chest one view compared to June 04 Discussion: Support tubes, right IJ line, left chest pacemaker in place. Mild pulmonary congestion and probable left base atelectasis. No gross effusion or pneumothorax. IMPRESSIONS: No change. ET tube tip probably 1.3 cm from thecarina. Signed: Jerel Noguera Verified Date/Time: 06/05/2017 07:34:54 Reading Location: [facility] Radiology Reading Room POCT-GLUCOSE [id number] 06:35:00 Test Item Value Reference Range Comments POC-GLUCOSE METER (BEAKER) 209 mg/dL 70-110 TESTED AT [facility] [address] [facility] (test gfeg=9635) [facility] [address] BLOOD [id number] 06:00:00 Test Item Value Reference Range Comments CULTURE (BEAKER) (test lkdv=1522) No growth in 5 days BLOOD [id number] 06:00:00 Test Item Value Reference Range Comments CULTURE (BEAKER) (test ykgr=9807) No growth in 5 days CREATINE KINASE (CK), TOTAL AND [id number] 05:23:00 Test Item Value Reference Range Comments CREATINE KINASE TOTAL (BEAKER) (test qlpr=283) 52 U/L 29-200 CREATINE KINASE-MB (BEAKER) (test nfuj=550) 0.4 ng/mL 0.0-6.6 CREATINE KINASE-MB INDEX (BEAKER) (test jxcz=537) 0.8 % CK-MB Reference Range:<6.7 Normal6.7-10.0 Borderline>10.0 [id number] 05:16:00 Test Item Value Reference Range Comments PHOSPHORUS (BEAKER) (test rnjb=103) 2.9 mg/dL 2.3-4.7 [id number] 05:16:00 Test Item Value Reference Range Comments MAGNESIUM (BEAKER) (test lfqg=017) 1.4 mg/dL 1.6-2.6 BASIC METABOLIC [id number] 05:16:00 Test Item Value Reference Range Comments SODIUM (BEAKER) (test 145 meq/L 136-145 wnje=621) POTASSIUM (BEAKER) (test 3.8 meq/L 3.5-5.1 enfl=298) CHLORIDE (BEAKER) (test 115 meq/L 98-107 hpfb=910) CO2 (BEAKER) (test 21 meq/L 22-29 vuqv=408) BLOOD UREA NITROGEN 33 mg/dL 7-21 (BEAKER) (test jyuf=671) CREATININE (BEAKER) (test 0.82 mg/dL 0.57-1.25 zlxw=813) GLUCOSE RANDOM (BEAKER) 177 mg/dL 70-105 (test iivr=340) CALCIUM (BEAKER) (test 8.2 mg/dL 8.4-10.2 putm=272) EGFR (BEAKER) (test 90 mL/min/1.73 sq m ESTIMATED GFR IS NOT dqml=5449) ACCURATE CREATININE CLEARANCE IN PREDICTING GLOMERULAR FILTRATION RATE. ESTIMATED GFR IS NOT APPLICABLE FOR DIALYSIS PATIENTS. CBC W/PLT COUNT & AUTO [id number] 05:08:00 Test Item Value Reference Range Comments WHITE BLOOD CELL COUNT (BEAKER) (test tkvm=673) 12.1 K/ L 3.5-10.5 RED BLOOD CELL COUNT (BEAKER) (test cycf=365) 2.66 M/ L 4.63-6.08 HEMOGLOBIN (BEAKER) (test dcsu=539) 8.1 GM/DL 13.7-17.5 HEMATOCRIT (BEAKER) (test ddjv=593) 26.5 % 40.1-51.0 MEAN CORPUSCULAR VOLUME (BEAKER) (test nrdu=665) 99.6 fL 79.0-92.2 MEAN CORPUSCULAR HEMOGLOBIN (BEAKER) (test 30.5 pg 25.7-32.2 dqgr=434) MEAN CORPUSCULAR HEMOGLOBIN CONC (BEAKER) (test 30.6 GM/DL 32.3-36.5 gfsq=196) RED CELL DISTRIBUTION WIDTH (BEAKER) (test 19.0 % 11.6-14.4 rjzw=267) PLATELET COUNT (BEAKER) (test sdfr=137) 142 K/CU MM 150-450 MEAN PLATELET VOLUME (BEAKER) (test fqaa=393) 10.6 fL 9.4-12.4 NUCLEATED RED BLOOD CELLS (BEAKER) (test 0 /100 WBC 0-0 hchf=016) NEUTROPHILS RELATIVE PERCENT (BEAKER) (test 71 % wppe=877) LYMPHOCYTES RELATIVE PERCENT (BEAKER) (test 17 % srlo=294) MONOCYTES RELATIVE PERCENT (BEAKER) (test 9 % mdul=190) EOSINOPHILS RELATIVE PERCENT (BEAKER) (test 3 % twfi=267) BASOPHILS RELATIVE PERCENT (BEAKER) (test 0 % nkwb=195) NEUTROPHILS ABSOLUTE COUNT (BEAKER) (test 8.57 K/ L 1.78-5.38 fjxp=298) LYMPHOCYTES ABSOLUTE COUNT (BEAKER) (test 2.01 K/ L 1.32-3.57 uugv=143) MONOCYTES ABSOLUTE COUNT (BEAKER) (test 1.06 K/ L 0.30-0.82 gbhm=142) EOSINOPHILS ABSOLUTE COUNT (BEAKER) (test 0.35 K/ L 0.04-0.54 siuy=225) BASOPHILS ABSOLUTE COUNT (BEAKER) (test 0.03 K/ L 0.01-0.08 jdok=654) IMMATURE GRANULOCYTES-RELATIVE PERCENT (BEAKER) 1 % 0-1 (test hmmt=4058) LACTIC ACID, VENOUS, WHOLE [id number] 05:07:00 Test Item Value Reference Range Comments LACTATE BLOOD VENOUS (2) (BEAKER) (test 1.1 mmol/L 0.5-2.2 rduh=1109) Effective 06/10/2015: Units/Reference Range ChangeNew: 0.5-2.2 mmol/L Previous: 5 -20 mg/dLPOCT-GLUCOSE [id number] 00:49:00 Test Item Value Reference Range Comments POC-GLUCOSE METER (BEAKER) 205 mg/dL 70-110 TESTED AT [address] (test hgui=3254) [facility] [address] POCT-GLUCOSE [id number] 17:29:00 Test Item Value Reference Range Comments POC-GLUCOSE METER (BEAKER) 211 mg/dL 70-110 TESTED AT [address] (test awdr=6587) [facility] [address] CREATINE KINASE (CK), TOTAL AND [id number] 16:23:00 Test Item Value Reference Range Comments CREATINE KINASE TOTAL (BEAKER) (test ubcs=617) 89 U/L 29-200 CREATINE KINASE-MB (BEAKER) (test yxoo=386) 0.8 ng/mL 0.0-6.6 CREATINE KINASE-MB INDEX (BEAKER) (test vpnd=379) 0.9 % CK-MB Reference Range:<6.7 Normal6.7-10.0 Borderline>10.0 AbnormalBASIC METABOLIC [id number] 16:17:00 Test Item Value Reference Range Comments SODIUM (BEAKER) (test 146 meq/L 136-145 qmkb=837) POTASSIUM (BEAKER) (test 3.7 meq/L 3.5-5.1 hngs=118) CHLORIDE (BEAKER) (test 116 meq/L 98-107 rjuo=994) CO2 (BEAKER) (test 23 meq/L 22-29 safy=296) BLOOD UREA NITROGEN 33 mg/dL 7-21 (BEAKER) (test proz=109) CREATININE (BEAKER) (test 0.80 mg/dL 0.57-1.25 utfq=287) GLUCOSE RANDOM (BEAKER) 170 mg/dL 70-105 (test jqcl=416) CALCIUM (BEAKER) (test 8.4 mg/dL 8.4-10.2 tqlp=298) EGFR (BEAKER) (test 93 mL/min/1.73 sq m ESTIMATED GFR IS NOT dzlf=8056) ACCURATE CREATININE CLEARANCE IN PREDICTING GLOMERULAR FILTRATION RATE. ESTIMATED GFR IS NOT APPLICABLE FOR DIALYSIS PATIENTS. CT, BRAIN, WITHOUT [id number] 15:33:00FINAL REPORT CT Head without contrast CLINICAL [...] acute infarct, hemorrhage, or hydrocephalus. Signed: Lisa Hardyeport Verified Date/Time: 06/04/2017 15:33:02 Reading Location: [facility] B1 C013V Neuro Reading Room Electronicallysigned by: LISA HARDY M.D. on 06/04/2017 03:33 PMPOCT-GLUCOSE [id number] 13:13:00 Test Item Value Reference Range Comments POC-GLUCOSE METER (BEAKER) 271 mg/dL 70-110 TESTED AT [facility] [address] (test obuo=3064) [facility] [address] SPUTUM CULTURE + GRAM [id number] 11:40:00 Test Item Value Reference Range Comments CULTURE (BEAKER) (test METHICILLIN RESISTANT 1+ Methicillin evhp=1721) STAPHYLOCOCCUS AUREUS resistant Staphylococcus aureus Clindamycin (test code=10) Erythromycin (test code=4) Linezolid (test code=40) Nitrofurantoin (test code=23) Oxacillin (test code=14) Rifampin (test code=43) Tetracycline (test code=2) Trimethoprim + Sulfamethoxazole (test code=47) Vancomycin (test code=13) GRAM STAIN RESULT 1+ WBCs (BEAKER) (test qbdv=8491) GRAM STAIN RESULT 0-5 epithelial cells (BEAKER) (test lzcu=078765) GRAM STAIN RESULT No organisms seen (BEAKER) (test xfvt=785517) 1+ Normal respiratory melanie presentCREATINE KINASE (CK), TOTAL AND [id number] 09:49:00 Test Item Value Reference Range Comments CREATINE KINASE TOTAL (BEAKER) (test yoyw=097) 61 U/L 29-200 CREATINE KINASE-MB (BEAKER) (test vtur=132) 0.7 ng/mL 0.0-6.6 CREATINE KINASE-MB INDEX (BEAKER) (test qkvz=263) 1.1 % CK-MB Reference Range:<6.7 Normal6.7-10.0 Borderline>10.0 AbnormalBASIC METABOLIC [id number] 09:43:00 Test Item Value Reference Range Comments SODIUM (BEAKER) (test 146 meq/L 136-145 hvxc=384) POTASSIUM (BEAKER) (test 3.9 meq/L 3.5-5.1 ecbn=220) CHLORIDE (BEAKER) (test 117 meq/L 98-107 dcyh=063) CO2 (BEAKER) (test 22 meq/L 22-29 bwkp=216) BLOOD UREA NITROGEN 33 mg/dL 7-21 (BEAKER) (test vgvc=252) CREATININE (BEAKER) (test 0.79 mg/dL 0.57-1.25 tzzo=326) GLUCOSE RANDOM (BEAKER) 169 mg/dL 70-105 (test azeb=860) CALCIUM (BEAKER) (test 8.6 mg/dL 8.4-10.2 ybwd=600) EGFR (BEAKER) (test 94 mL/min/1.73 sq m ESTIMATED GFR IS NOT pahe=4514) ACCURATE CREATININE CLEARANCE IN PREDICTING GLOMERULAR FILTRATION RATE. ESTIMATED GFR IS NOT APPLICABLE FOR DIALYSIS PATIENTS. LACTIC ACID, VENOUS, WHOLE [id number] 09:38:00 Test Item Value Reference Range Comments LACTATE BLOOD VENOUS (2) (BEAKER) (test 0.8 mmol/L 0.5-2.2 sdzn=5979) Effective 06/10/2015: Units/Reference Range ChangeNew: 0.5-2.2 mmol/L Previous: 5 -20 mg/dLPOCT-GLUCOSE [id number] 06:06:00 Test Item Value Reference Range Comments POC-GLUCOSE METER (BEAKER) 133 mg/dL 70-110 TESTED AT [facility] [address] [facility] (test iwis=6645) [facility] [address] BLOOD GAS, [id number] 05:21:00 Test Item Value Reference Range Comments PH ARTERIAL (BEAKER) (test ukcf=060) 7.44 7.35-7.45 PCO2 ARTERIAL (BEAKER) (test cuhi=222) 33 mmHg 35-45 PO2 ARTERIAL (BEAKER) (test prlh=877) 190 mmHg 80-90 O2 SATURATION ARTERIAL (BEAKER) (test bffa=468) 99.4 % 96.0-97.0 HCO3 ARTERIAL (BEAKER) (test lziy=642) 22 mmol/L 21-29 BASE EXCESS ARTERIAL (BEAKER) (test mihi=722) -1.8 mmol/L -2.0-3.0 PATIENT TEMPERATURE (BEAKER) (test xucv=5377) 37.5 C FIO2 (BEAKER) (test rjzg=6640) 50.0 % [id number] 05:12:00 Test Item Value Reference Range Comments PHOSPHORUS (BEAKER) (test imfj=986) 2.9 mg/dL 2.3-4.7 [id number] 05:12:00 Test Item Value Reference Range Comments MAGNESIUM (BEAKER) (test hmmk=095) 1.8 mg/dL 1.6-2.6 CBC W/PLT COUNT & AUTO [id number] 04:33:00 Test Item Value Reference Range Comments WHITE BLOOD CELL COUNT (BEAKER) (test egir=498) 11.3 K/ L 3.5-10.5 RED BLOOD CELL COUNT (BEAKER) (test jelv=412) 2.75 M/ L 4.63-6.08 HEMOGLOBIN (BEAKER) (test deep=001) 8.3 GM/DL 13.7-17.5 HEMATOCRIT (BEAKER) (test cizc=005) 27.6 % 40.1-51.0 MEAN CORPUSCULAR VOLUME (BEAKER) (test ckql=171) 100.4 fL 79.0-92.2 MEAN CORPUSCULAR HEMOGLOBIN (BEAKER) (test 30.2 pg 25.7-32.2 bihd=776) MEAN CORPUSCULAR HEMOGLOBIN CONC (BEAKER) (test 30.1 GM/DL 32.3-36.5 yxlb=479) RED CELL DISTRIBUTION WIDTH (BEAKER) (test 19.9 % 11.6-14.4 kays=908) PLATELET COUNT (BEAKER) (test ndeq=287) 148 K/CU MM 150-450 MEAN PLATELET VOLUME (BEAKER) (test eikn=313) 10.3 fL 9.4-12.4 NUCLEATED RED BLOOD CELLS (BEAKER) (test 0 /100 WBC 0-0 bcdo=033) NEUTROPHILS RELATIVE PERCENT (BEAKER) (test 71 % aeqp=674) LYMPHOCYTES RELATIVE PERCENT (BEAKER) (test 17 % wrmx=918) MONOCYTES RELATIVE PERCENT (BEAKER) (test 8 % ctzl=144) EOSINOPHILS RELATIVE PERCENT (BEAKER) (test 3 % mapp=877) BASOPHILS RELATIVE PERCENT (BEAKER) (test 0 % leku=793) NEUTROPHILS ABSOLUTE COUNT (BEAKER) (test 7.99 K/ L 1.78-5.38 zbks=114) LYMPHOCYTES ABSOLUTE COUNT (BEAKER) (test 1.95 K/ L 1.32-3.57 rcza=145) MONOCYTES ABSOLUTE COUNT (BEAKER) (test 0.88 K/ L 0.30-0.82 ucot=021) EOSINOPHILS ABSOLUTE COUNT (BEAKER) (test 0.35 K/ L 0.04-0.54 walk=391) BASOPHILS ABSOLUTE COUNT (BEAKER) (test 0.02 K/ L 0.01-0.08 uhxx=767) IMMATURE GRANULOCYTES-RELATIVE PERCENT (BEAKER) 1 % 0-1 (test bjoh=6872) RAD, CHEST, 1 VIEW, NON [id number] 04:20:00Reason for exam:-> ventedShould this be performed [...] Verified Date/Time: 06/04/2017 04: 20:06 Reading Location: [address] Reading Room CREATINE KINASE (CK), TOTAL AND [id number] 00:29:00 Test Item Value Reference Range Comments CREATINE KINASE TOTAL (BEAKER) (test baqf=830) 43 U/L 29-200 CREATINE KINASE-MB (BEAKER) (test mrhy=456) 0.6 ng/mL 0.0-6.6 CREATINE KINASE-MB INDEX (BEAKER) (test tnnt=601) 1.4 % CK-MB Reference Range:<6.7 Normal6.7-10.0 Borderline>10.0 AbnormalBASIC METABOLIC [id number] 00:23:00 Test Item Value Reference Range Comments SODIUM (BEAKER) (test 147 meq/L 136-145 fahc=640) POTASSIUM (BEAKER) (test 3.8 meq/L 3.5-5.1 vtrt=317) CHLORIDE (BEAKER) (test 119 meq/L 98-107 ozsn=542) CO2 (BEAKER) (test 19 meq/L 22-29 egrj=266) BLOOD UREA NITROGEN 36 mg/dL 7-21 (BEAKER) (test nmmy=217) CREATININE (BEAKER) (test 0.79 mg/dL 0.57-1.25 acbw=121) GLUCOSE RANDOM (BEAKER) 110 mg/dL 70-105 (test gmiz=133) CALCIUM (BEAKER) (test 8.3 mg/dL 8.4-10.2 honw=044) EGFR (BEAKER) (test 94 mL/min/1.73 sq m ESTIMATED GFR IS NOT flim=8459) ACCURATE CREATININE CLEARANCE IN PREDICTING GLOMERULAR FILTRATION RATE. ESTIMATED GFR IS NOT APPLICABLE FOR DIALYSIS PATIENTS. POCT-GLUCOSE [id number] 00:06:00 Test Item Value Reference Range Comments POC-GLUCOSE METER (BEAKER) 116 mg/dL 70-110 TESTED AT [facility] [address] [facility] (test beai=7457) [facility] [id number] HEMOGLOBIN AND [id number] 00:01:00 Test Item Value Reference Range Comments HEMOGLOBIN (BEAKER) (test ymcu=584) 7.8 GM/DL 13.7-17.5 HEMATOCRIT (BEAKER) (test kury=111) 25.1 % 40.1-51.0 RAD, ABDOMEN/KUB, 1 VIEW [id number] 23:47:00Reason for exam:->s/p corpak placementFINAL REPORT EXAMINATION: [...] MDReport Verified Date/Time: 06/03/2017 23:47:47 Reading Location: [address] Reading Room BLOOD GAS, [id number] 19:32:00 Test Item Value Reference Range Comments PH ARTERIAL (BEAKER) (test gdqw=676) 7.43 7.35-7.45 PCO2 ARTERIAL (BEAKER) (test btvs=949) 36 mmHg 35-45 PO2 ARTERIAL (BEAKER) (test wgmt=568) 165 mmHg 80-90 O2 SATURATION ARTERIAL (BEAKER) (test bxun=183) 99.1 % 96.0-97.0 HCO3 ARTERIAL (BEAKER) (test rrhq=371) 23 mmol/L 21-29 BASE EXCESS ARTERIAL (BEAKER) (test blfj=029) -1.0 mmol/L -2.0-3.0 PATIENT TEMPERATURE (BEAKER) (test hdlo=6823) 37.5 C FIO2 (BEAKER) (test kqre=0028) 60.0 % RAD, CHEST, 1 VIEW, NON [id number] 17:52:00Reason for exam:-> intubationShould this be performed [...] Verified Date/Time: 06/03/2017 17: 52:43 Reading Location: [address] Reading Room POCT- GLUCOSE [id number] 17:46:00 Test Item Value Reference Range Comments POC-GLUCOSE METER (BEAKER) 134 mg/dL 70-110 TESTED AT [facility] [address] [facility] (test yciu=9373) [facility] [address] CREATINE KINASE (CK), TOTAL AND [id number] 15:27:00 Test Item Value Reference Range Comments CREATINE KINASE TOTAL (BEAKER) (test mhxc=408) 67 U/L 29-200 CREATINE KINASE-MB (BEAKER) (test uwkn=652) 0.7 ng/mL 0.0-6.6 CREATINE KINASE-MB INDEX (BEAKER) (test rsqh=674) 1.0 % CK-MB Reference Range:<6.7 Normal6.7-10.0 Borderline>10.0 AbnormalBASIC METABOLIC [id number] 15:20:00 Test Item Value Reference Range Comments SODIUM (BEAKER) (test 148 meq/L 136-145 ckgn=188) POTASSIUM (BEAKER) (test 3.6 meq/L 3.5-5.1 cuze=636) CHLORIDE (BEAKER) (test 119 meq/L 98-107 pjtu=448) CO2 (BEAKER) (test 20 meq/L 22-29 pwpd=183) BLOOD UREA NITROGEN 41 mg/dL 7-21 (BEAKER) (test vmhp=560) CREATININE (BEAKER) (test 0.82 mg/dL 0.57-1.25 isrb=991) GLUCOSE RANDOM (BEAKER) 180 mg/dL 70-105 (test posj=279) CALCIUM (BEAKER) (test 8.6 mg/dL 8.4-10.2 ubxg=379) EGFR (BEAKER) (test 90 mL/min/1.73 sq m ESTIMATED GFR IS NOT usin=9323) ACCURATE CREATININE CLEARANCE IN PREDICTING GLOMERULAR FILTRATION RATE. ESTIMATED GFR IS NOT APPLICABLE FOR DIALYSIS PATIENTS. HEPATITIS A [id number] 15:03:00 Test Item Value Reference Range Comments HEPATITIS A IGM ANTIBODY (BEAKER) (test Nonreactive Nonreactive iqha=140) HEPATITIS A IGG ANTIBODY (BEAKER) (test Reactive Nonreactive fyrb=7782) HEMOGLOBIN AND [id number] 15:02:00 Test Item Value Reference Range Comments HEMOGLOBIN (BEAKER) (test kmcf=553) 8.9 GM/DL 13.7-17.5 HEMATOCRIT (BEAKER) (test amom=557) 29.0 % 40.1-51.0 BLOOD GAS, [id number] 15:01:00 Test Item Value Reference Range Comments PH VENOUS (BEAKER) (test hxdu=363) 7.43 7.32-7.42 PCO2 VENOUS (BEAKER) (test seym=142) 35 mmHg 41-51 PO2 VENOUS (BEAKER) (test issh=395) 35 mmHg 25-40 O2 SATURATION VENOUS (BEAKER) (test rhtp=755) 71.0 % 40.0-70.0 HCO3 VENOUS (BEAKER) (test asxt=329) 23 mmol/L 21-29 BASE EXCESS VENOUS (BEAKER) (test ynjz=706) -1.4 mmol/L -2.0-3.0 PATIENT TEMPERATURE (BEAKER) (test lyfk=8284) 36.4 C FIO2 (BEAKER) (test mhei=3868) 32.0 % HEPATITIS C [id number] 14:58:00 Test Item Value Reference Range Comments HEPATITIS C ANTIBODY (BEAKER) (test hqpj=544) Nonreactive Nonreactive HEPATITIS B [id number] 14:58:00 Test Item Value Reference Range Comments HEPATITIS B CORE TOTAL ANTIBODY (BEAKER) (test Nonreactive Nonreactive mmhr=389) HEPATITIS B SURFACE ANTIBODY (BEAKER) (test 22.2 mIU/mL <8.0 ucbk=839) HEPATITIS B SURFACE ANTIGEN (2) (BEAKER) (test Nonreactive Nonreactive bvpm=5469) POCT-GLUCOSE [id number] 11:57:00 Test Item Value Reference Range Comments POC-GLUCOSE METER (BEAKER) 228 mg/dL 70-110 TESTED AT [facility] [address] [facility] (test bynj=9955) [facility] [address] BLOOD GAS, [id number] 11:12:00 Test Item Value Reference Range Comments PH ARTERIAL (BEAKER) (test jzxt=558) 7.47 7.35-7.45 PCO2 ARTERIAL (BEAKER) (test waki=845) 28 mmHg 35-45 PO2 ARTERIAL (BEAKER) (test jgcj=294) 278 mmHg 80-90 O2 SATURATION ARTERIAL (BEAKER) (test zjai=605) 99.7 % 96.0-97.0 HCO3 ARTERIAL (BEAKER) (test fzii=727) 19 mmol/L 21-29 BASE EXCESS ARTERIAL (BEAKER) (test emrk=765) -3.5 mmol/L -2.0-3.0 PATIENT TEMPERATURE (BEAKER) (test thob=2692) 37.0 C FIO2 (BEAKER) (test kgvh=6027) 40.0 % HEMOGLOBIN [id number] 10:39:00 Test Item Value Reference Range Comments HEMOGLOBIN A1C (BEAKER) (test amcj=049) 5.5 % 4.3-6.1 CREATINE KINASE (CK), TOTAL AND [id number] 08:26:00 Test Item Value Reference Range Comments CREATINE KINASE TOTAL (BEAKER) (test lhbp=000) 72 U/L 29-200 CREATINE KINASE-MB (BEAKER) (test czzj=415) 0.9 ng/mL 0.0-6.6 CREATINE KINASE-MB INDEX (BEAKER) (test mzze=639) 1.3 % CK-MB Reference Range:<6.7 Normal6.7-10.0 Borderline>10.0 AbnormalBASIC METABOLIC [id number] 08:20:00 Test Item Value Reference Range Comments SODIUM (BEAKER) (test 145 meq/L 136-145 xnps=800) POTASSIUM (BEAKER) (test 4.0 meq/L 3.5-5.1 eirx=954) CHLORIDE (BEAKER) (test 119 meq/L 98-107 rdcy=552) CO2 (BEAKER) (test 20 meq/L 22-29 ckik=957) BLOOD UREA NITROGEN 48 mg/dL 7-21 (BEAKER) (test ggjl=435) CREATININE (BEAKER) (test 0.93 mg/dL 0.57-1.25 umkx=250) GLUCOSE RANDOM (BEAKER) 280 mg/dL 70-105 (test iobc=944) CALCIUM (BEAKER) (test 8.3 mg/dL 8.4-10.2 vbum=144) EGFR (BEAKER) (test 78 mL/min/1.73 sq m ESTIMATED GFR IS NOT zfrf=5221) ACCURATE CREATININE CLEARANCE IN PREDICTING GLOMERULAR FILTRATION RATE. ESTIMATED GFR IS NOT APPLICABLE FOR DIALYSIS PATIENTS. RAD, CHEST, 1 VIEW, NON [id number] 08:05:00Reason for exam:-> ventedShould this be performed at the bedside?->YesFINAL REPORT Chest, one view. HISTORY: Vented COMPARISON: 06/02/2017 IMPRESSION: Supporting hardware unchanged in position. Mild interstitial edema. Unchanged enlargement of the cardiomediastinal silhouette. Trace left pleural effusion. No identifiable pneumothorax. Signed: Venu Holman MDReport Verified Date/Time: 06/03/2017 08:05:13 Reading Location: [facility] C013Y CT Body Reading Room HEMOGLOBIN AND [id number] 07:52:00 Test Item Value Reference Range Comments HEMOGLOBIN (BEAKER) (test ashn=249) 8.7 GM/DL 13.7-17.5 HEMATOCRIT (BEAKER) (test znfh=115) 27.6 % 40.1-51.0 POCT-GLUCOSE [id number] 06:48:00 Test Item Value Reference Range Comments POC-GLUCOSE METER (BEAKER) 281 mg/dL 70-110 TESTED AT [facility] [address] [facility] (test cqgv=7746) [facility] [address] BLOOD GAS, [id number] 05:52:00 Test Item Value Reference Range Comments PH ARTERIAL (BEAKER) (test okpq=688) 7.43 7.35-7.45 PCO2 ARTERIAL (BEAKER) (test dcnh=775) 32 mmHg 35-45 PO2 ARTERIAL (BEAKER) (test udbp=380) 154 mmHg 80-90 O2 SATURATION ARTERIAL (BEAKER) (test xbtr=159) 99.1 % 96.0-97.0 HCO3 ARTERIAL (BEAKER) (test qyzy=401) 21 mmol/L 21-29 BASE EXCESS ARTERIAL (BEAKER) (test ybzy=201) -2.9 mmol/L -2.0-3.0 PATIENT TEMPERATURE (BEAKER) (test zwtj=1749) 37.0 C FIO2 (BEAKER) (test comk=7266) 40.0 % BASIC METABOLIC [id number] 05:47:00 Test Item Value Reference Range Comments SODIUM (BEAKER) (test 147 meq/L 136-145 varn=360) POTASSIUM (BEAKER) (test 4.4 meq/L 3.5-5.1 tpza=369) CHLORIDE (BEAKER) (test 122 meq/L 98-107 sfyz=657) CO2 (BEAKER) (test 17 meq/L 22-29 gvxz=449) BLOOD UREA NITROGEN 50 mg/dL 7-21 (BEAKER) (test wuqa=244) CREATININE (BEAKER) (test 0.88 mg/dL 0.57-1.25 ubza=263) GLUCOSE RANDOM (BEAKER) 259 mg/dL 70-105 (test hoff=950) CALCIUM (BEAKER) (test 8.3 mg/dL 8.4-10.2 hgia=731) EGFR (BEAKER) (test 83 mL/min/1.73 sq m ESTIMATED GFR IS NOT pmtp=9512) ACCURATE CREATININE CLEARANCE IN PREDICTING GLOMERULAR FILTRATION RATE. ESTIMATED GFR IS NOT APPLICABLE FOR DIALYSIS PATIENTS. CBC W/PLT COUNT & AUTO [id number] 05:40:00 Test Item Value Reference Range Comments WHITE BLOOD CELL COUNT (BEAKER) (test tfqz=288) 10.1 K/ L 3.5-10.5 RED BLOOD CELL COUNT (BEAKER) (test zlxx=304) 2.76 M/ L 4.63-6.08 HEMOGLOBIN (BEAKER) (test rbpk=225) 8.5 GM/DL 13.7-17.5 HEMATOCRIT (BEAKER) (test bxnv=806) 27.0 % 40.1-51.0 MEAN CORPUSCULAR VOLUME (BEAKER) (test fytl=595) 97.8 fL 79.0-92.2 MEAN CORPUSCULAR HEMOGLOBIN (BEAKER) (test 30.8 pg 25.7-32.2 svws=909) MEAN CORPUSCULAR HEMOGLOBIN CONC (BEAKER) (test 31.5 GM/DL 32.3-36.5 jicf=229) RED CELL DISTRIBUTION WIDTH (BEAKER) (test 20.3 % 11.6-14.4 lvho=254) PLATELET COUNT (BEAKER) (test rvpm=919) 145 K/CU MM 150-450 MEAN PLATELET VOLUME (BEAKER) (test eunr=614) 10.8 fL 9.4-12.4 NUCLEATED RED BLOOD CELLS (BEAKER) (test 1 /100 WBC 0-0 zglo=951) NEUTROPHILS RELATIVE PERCENT (BEAKER) (test 72 % qoeo=549) LYMPHOCYTES RELATIVE PERCENT (BEAKER) (test 15 % fvxx=624) MONOCYTES RELATIVE PERCENT (BEAKER) (test 9 % accs=331) EOSINOPHILS RELATIVE PERCENT (BEAKER) (test 3 % ktkv=293) BASOPHILS RELATIVE PERCENT (BEAKER) (test 0 % zeti=749) NEUTROPHILS ABSOLUTE COUNT (BEAKER) (test 7.23 K/ L 1.78-5.38 xixt=231) LYMPHOCYTES ABSOLUTE COUNT (BEAKER) (test 1.55 K/ L 1.32-3.57 qjnv=598) MONOCYTES ABSOLUTE COUNT (BEAKER) (test 0.92 K/ L 0.30-0.82 mcwp=387) EOSINOPHILS ABSOLUTE COUNT (BEAKER) (test 0.29 K/ L 0.04-0.54 knum=662) BASOPHILS ABSOLUTE COUNT (BEAKER) (test 0.02 K/ L 0.01-0.08 npin=591) IMMATURE GRANULOCYTES-RELATIVE PERCENT (BEAKER) 1 % 0-1 (test xyod=4128) [id number] 05:37:00 Test Item Value Reference Range Comments PHOSPHORUS (BEAKER) (test ctvg=326) 2.5 mg/dL 2.3-4.7 [id number] 05:37:00 Test Item Value Reference Range Comments MAGNESIUM (BEAKER) (test nsmm=088) 1.8 mg/dL 1.6-2.6 BASIC METABOLIC [id number] 00:57:00 Test Item Value Reference Range Comments SODIUM (BEAKER) (test 146 meq/L 136-145 uisi=688) POTASSIUM (BEAKER) (test 4.3 meq/L 3.5-5.1 ksgs=683) CHLORIDE (BEAKER) (test 121 meq/L 98-107 uxrj=804) CO2 (BEAKER) (test 21 meq/L 22-29 rrik=080) BLOOD UREA NITROGEN 52 mg/dL 7-21 (BEAKER) (test izgv=879) CREATININE (BEAKER) (test 0.90 mg/dL 0.57-1.25 fupk=767) GLUCOSE RANDOM (BEAKER) 265 mg/dL 70-105 (test yrej=371) CALCIUM (BEAKER) (test 8.2 mg/dL 8.4-10.2 axga=218) EGFR (BEAKER) (test 81 mL/min/1.73 sq m ESTIMATED GFR IS NOT agaz=9961) ACCURATE CREATININE CLEARANCE IN PREDICTING GLOMERULAR FILTRATION RATE. ESTIMATED GFR IS NOT APPLICABLE FOR DIALYSIS PATIENTS. CREATINE KINASE (CK), TOTAL AND [id number] 00:55:00 Test Item Value Reference Range Comments CREATINE KINASE TOTAL (BEAKER) (test nenz=076) 61 U/L 29-200 CREATINE KINASE-MB (BEAKER) (test rbom=692) 0.8 ng/mL 0.0-6.6 CREATINE KINASE-MB INDEX (BEAKER) (test xned=458) 1.3 % CK-MB Reference Range:<6.7 Normal6.7-10.0 Borderline>10.0 AbnormalHEMOGLOBIN AND [id number] 00:39:00 Test Item Value Reference Range Comments HEMOGLOBIN (BEAKER) (test fjxi=414) 8.2 GM/DL 13.7-17.5 HEMATOCRIT (BEAKER) (test webo=608) 25.8 % 40.1-51.0 POCT-GLUCOSE [id number] 00:38:00 Test Item Value Reference Range Comments POC-GLUCOSE METER (BEAKER) 289 mg/dL 70-110 TESTED AT [address] (test wfgq=1181) [place] [address] BASIC METABOLIC [id number] 19:04:00 Test Item Value Reference Range Comments SODIUM (BEAKER) (test 148 meq/L 136-145 ggwe=130) POTASSIUM (BEAKER) (test 3.7 meq/L 3.5-5.1 qhhq=224) CHLORIDE (BEAKER) (test 120 meq/L 98-107 ijif=626) CO2 (BEAKER) (test 19 meq/L 22-29 gtur=219) BLOOD UREA NITROGEN 54 mg/dL 7-21 (BEAKER) (test eccb=595) CREATININE (BEAKER) (test 0.93 mg/dL 0.57-1.25 khac=533) GLUCOSE RANDOM (BEAKER) 203 mg/dL 70-105 (test pqii=487) CALCIUM (BEAKER) (test 8.5 mg/dL 8.4-10.2 cjzp=897) EGFR (BEAKER) (test 78 mL/min/1.73 sq m ESTIMATED GFR IS NOT cgab=6245) ACCURATE CREATININE CLEARANCE IN PREDICTING GLOMERULAR FILTRATION RATE. ESTIMATED GFR IS NOT APPLICABLE FOR DIALYSIS PATIENTS. POCT-GLUCOSE [id number] 17:54:00 Test Item Value Reference Range Comments POC-GLUCOSE METER (BEAKER) 185 mg/dL 70-110 TESTED AT [address] (test ydkh=9522) [place] [id number] POCT-GLUCOSE [id number] 17:06:00 Test Item Value Reference Range Comments POC-GLUCOSE METER (BEAKER) 171 mg/dL 70-110 TESTED AT [address] (test luiy=4469) [facility] [address] CREATINE KINASE (CK), TOTAL AND [id number] 16:32:00 Test Item Value Reference Range Comments CREATINE KINASE TOTAL (BEAKER) (test phir=803) 77 U/L 29-200 CREATINE KINASE-MB (BEAKER) (test nflf=271) 0.7 ng/mL 0.0-6.6 CREATINE KINASE-MB INDEX (BEAKER) (test lwcb=569) 0.9 % CK-MB Reference Range:<6.7 Normal6.7-10.0 Borderline>10.0 AbnormalBASIC METABOLIC [id number] 16:28:00 Test Item Value Reference Range Comments SODIUM (BEAKER) (test 149 meq/L 136-145 rhzc=888) POTASSIUM (BEAKER) (test 3.4 meq/L 3.5-5.1 amog=108) CHLORIDE (BEAKER) (test 121 meq/L 98-107 tpki=170) CO2 (BEAKER) (test 19 meq/L 22-29 xycq=523) BLOOD UREA NITROGEN 58 mg/dL 7-21 (BEAKER) (test zapx=661) CREATININE (BEAKER) (test 0.94 mg/dL 0.57-1.25 xzvq=248) GLUCOSE RANDOM (BEAKER) 173 mg/dL 70-105 (test gvle=677) CALCIUM (BEAKER) (test 8.4 mg/dL 8.4-10.2 clvp=635) EGFR (BEAKER) (test 77 mL/min/1.73 sq m ESTIMATED GFR IS NOT tmov=8128) ACCURATE CREATININE CLEARANCE IN PREDICTING GLOMERULAR FILTRATION RATE. ESTIMATED GFR IS NOT APPLICABLE FOR DIALYSIS PATIENTS. POCT-GLUCOSE [id number] 16:24:00 Test Item Value Reference Range Comments POC-GLUCOSE METER (BEAKER) 172 mg/dL 70-110 TESTED AT [place] [id number] [facility] (test pwin=9463) [facility] [address] POCT-GLUCOSE [id number] 15:30:00 Test Item Value Reference Range Comments POC-GLUCOSE METER (BEAKER) 192 mg/dL 70-110 TESTED AT [address] (test ykdu=9483) [place] [address] URINE [id number] 14:28:00 Test Item Value Reference Range Comments CULTURE (BEAKER) (test xtag=6558) No growth POCT-GLUCOSE [id number] 14:10:00 Test Item Value Reference Range Comments POC-GLUCOSE METER (BEAKER) 183 mg/dL 70-110 TESTED AT [address] (test zace=1885) [place] [address] POCT-GLUCOSE [id number] 14:10:00 Test Item Value Reference Range Comments POC-GLUCOSE METER (BEAKER) 191 mg/dL 70-110 TESTED AT [address] (test mbmx=0450) [place] [address] RAD, ABDOMEN/KUB, 1 VIEW [id number] 13:03:00Reason for exam:->dobbhoff tube placementFINAL REPORT Abdomen one view INDICATION: Dobbhoff tube placement COMPARISON:05/30/2017 IMPRESSION: Feeding tube tip extends to the distal stomach. Suggest advancing. The bowel gas pattern is nonspecific. Cholecystectomy clips, degenerative spine changes, and vascular calcifications and stents are noted. The imaged lower chest is similar to earlier today. Signed: Tanisha Montalvo Verified Date/Time: 2017 13:03:48 Reading Location: [facility] Radiology Reading Room POCT- GLUCOSE [id number] 11:56:00 Test Item Value Reference Range Comments POC-GLUCOSE METER (BEAKER) 123 mg/dL 70-110 TESTED AT [address] (test zbsl=9562) [place] [address] POCT-GLUCOSE [id number] 10:58:00 Test Item Value Reference Range Comments POC-GLUCOSE METER (BEAKER) 206 mg/dL 70-110 TESTED AT [address] (test pcvu=9030) [place] [address] HEMOGLOBIN AND [id number] 10:38:00 Test Item Value Reference Range Comments HEMOGLOBIN (BEAKER) (test onme=938) 8.9 GM/DL 13.7-17.5 HEMATOCRIT (BEAKER) (test aiav=001) 28.7 % 40.1-51.0 [id number] 09:04:00 Test Item Value Reference Range Comments GLUCOSE RANDOM (BEAKER) (test pwxj=041) 230 mg/dL 70-105 CREATINE KINASE (CK), TOTAL AND [id number] 08:55:00 Test Item Value Reference Range Comments CREATINE KINASE TOTAL (BEAKER) (test scaz=260) 96 U/L 29-200 CREATINE KINASE-MB (BEAKER) (test kfma=587) 1.0 ng/mL 0.0-6.6 CREATINE KINASE-MB INDEX (BEAKER) (test ntdt=100) 1.0 % CK-MB Reference Range:<6.7 Normal6.7-10.0 Borderline>10.0 AbnormalTROPONIN [id number] 08:55:00 Test Item Value Reference Range Comments TROPONIN I (BEAKER) (test zpxr=036) 0.10 ng/mL 0.00-0.03 Troponin I (TnI) levels [...] failure, acidosis, acute neurological disease, and persistent tachyarrhythmia.[id number] 08:42:00 Test Item Value Reference Range Comments AMMONIA (BEAKER) (test lgzr=900) 52 mol/L 18-72 POCT-GLUCOSE [id number] 06:16:00 Test Item Value Reference Range Comments POC-GLUCOSE METER (BEAKER) 213 mg/dL 70-110 TESTED AT [facility] [address] [facility] (test dyvy=7166) [facility] [address] BLOOD GAS, [id number] 05:52:00 Test Item Value Reference Range Comments PH ARTERIAL (BEAKER) (test cqcv=352) 7.46 7.35-7.45 PCO2 ARTERIAL (BEAKER) (test wqxy=309) 32 mmHg 35-45 PO2 ARTERIAL (BEAKER) (test ayai=724) 110 mmHg 80-90 O2 SATURATION ARTERIAL (BEAKER) (test tnkn=635) 98.4 % 96.0-97.0 HCO3 ARTERIAL (BEAKER) (test xzyq=305) 22 mmol/L 21-29 BASE EXCESS ARTERIAL (BEAKER) (test fivs=150) -1.1 mmol/L -2.0-3.0 PATIENT TEMPERATURE (BEAKER) (test ftkb=6048) 36.5 C FIO2 (BEAKER) (test llsp=0546) 40.0 % COMPREHENSIVE METABOLIC [id number] 05:41:00 Test Item Value Reference Range Comments TOTAL PROTEIN (BEAKER) 5.8 gm/dL 6.0-8.3 (test txzq=209) ALBUMIN (BEAKER) (test 3.1 g/dL 3.5-5.0 rehz=9072) ALKALINE PHOSPHATASE 53 U/L 40-150 (BEAKER) (test rjru=421) BILIRUBIN TOTAL (BEAKER) 0.6 mg/dL 0.2-1.2 (test nzey=593) SODIUM (BEAKER) (test 154 meq/L 136-145 inga=374) POTASSIUM (BEAKER) (test 3.2 meq/L 3.5-5.1 gwyy=075) CHLORIDE (BEAKER) (test 123 meq/L 98-107 nugy=425) CO2 (BEAKER) (test 21 meq/L 22-29 drrv=255) BLOOD UREA NITROGEN 73 mg/dL 7-21 (BEAKER) (test rxby=205) CREATININE (BEAKER) (test 1.10 mg/dL 0.57-1.25 ngoj=589) GLUCOSE RANDOM (BEAKER) 183 mg/dL 70-105 (test snke=137) CALCIUM (BEAKER) (test 8.6 mg/dL 8.4-10.2 xulm=573) AST (SGOT) (BEAKER) (test 37 U/L 5-34 wzof=753) ALT (SGPT) (BEAKER) (test 22 U/L 6-55 qyzc=056) EGFR (BEAKER) (test 64 mL/min/1.73 sq m ESTIMATED GFR IS NOT aymh=5264) ACCURATE CREATININE CLEARANCE IN PREDICTING GLOMERULAR FILTRATION RATE. ESTIMATED GFR IS NOT APPLICABLE FOR DIALYSIS PATIENTS. [id number] 05:35:00 Test Item Value Reference Range Comments PHOSPHORUS (BEAKER) (test viwh=733) 2.7 mg/dL 2.3-4.7 [id number] 05:35:00 Test Item Value Reference Range Comments MAGNESIUM (BEAKER) (test ienf=427) 2.0 mg/dL 1.6-2.6 CBC W/PLT COUNT & AUTO [id number] 05:23:00 Test Item Value Reference Range Comments WHITE BLOOD CELL COUNT (BEAKER) (test kmmb=958) 9.5 K/ L 3.5-10.5 RED BLOOD CELL COUNT (BEAKER) (test itwp=894) 2.79 M/ L 4.63-6.08 HEMOGLOBIN (BEAKER) (test ajth=567) 8.7 GM/DL 13.7-17.5 HEMATOCRIT (BEAKER) (test glpu=370) 26.9 % 40.1-51.0 MEAN CORPUSCULAR VOLUME (BEAKER) (test goni=203) 96.4 fL 79.0-92.2 MEAN CORPUSCULAR HEMOGLOBIN (BEAKER) (test 31.2 pg 25.7-32.2 qtwy=870) MEAN CORPUSCULAR HEMOGLOBIN CONC (BEAKER) (test 32.3 GM/DL 32.3-36.5 aenj=804) RED CELL DISTRIBUTION WIDTH (BEAKER) (test 20.8 % 11.6-14.4 uvgz=041) PLATELET COUNT (BEAKER) (test wfyl=428) 149 K/CU MM 150-450 MEAN PLATELET VOLUME (BEAKER) (test qpfg=965) 9.8 fL 9.4-12.4 NUCLEATED RED BLOOD CELLS (BEAKER) (test 2 /100 WBC 0-0 zeij=997) NEUTROPHILS RELATIVE PERCENT (BEAKER) (test 63 % qtpa=806) LYMPHOCYTES RELATIVE PERCENT (BEAKER) (test 23 % scuz=877) MONOCYTES RELATIVE PERCENT (BEAKER) (test 10 % jnrs=569) EOSINOPHILS RELATIVE PERCENT (BEAKER) (test 3 % pccs=203) BASOPHILS RELATIVE PERCENT (BEAKER) (test 0 % azej=367) NEUTROPHILS ABSOLUTE COUNT (BEAKER) (test 5.95 K/ L 1.78-5.38 zmkv=049) LYMPHOCYTES ABSOLUTE COUNT (BEAKER) (test 2.19 K/ L 1.32-3.57 psan=960) MONOCYTES ABSOLUTE COUNT (BEAKER) (test 0.95 K/ L 0.30-0.82 dffy=015) EOSINOPHILS ABSOLUTE COUNT (BEAKER) (test 0.28 K/ L 0.04-0.54 tgam=250) BASOPHILS ABSOLUTE COUNT (BEAKER) (test 0.03 K/ L 0.01-0.08 okfl=614) IMMATURE GRANULOCYTES-RELATIVE PERCENT (BEAKER) 1 % 0-1 (test yqqm=7914) RAD, CHEST, 1 VIEW, NON [id number] 04:41:00Reason for exam:-> ventedShould this be performed [...] no significant interval change. Signed: [facility] Verified Date/Time: 06/02/2017 04:41:51 Reading Location: [address] Reading Room CREATINE KINASE (CK), TOTAL AND [id number] 01:02:00 Test Item Value Reference Range Comments CREATINE KINASE TOTAL (BEAKER) (test rkei=651) 109 U/L 29-200 CREATINE KINASE-MB (BEAKER) (test lggh=745) 1.0 ng/mL 0.0-6.6 CREATINE KINASE-MB INDEX (BEAKER) (test cnym=905) 0.9 % CK-MB Reference Range:<6.7 Normal6.7-10.0 Borderline>10.0 AbnormalTROPONIN [id number] 01:02:00 Test Item Value Reference Range Comments TROPONIN I (BEAKER) (test jnog=363) 0.10 ng/mL 0.00-0.03 Troponin I (TnI) levels [...] acidosis, acute neurological disease, and persistent tachyarrhythmia.POCT-GLUCOSE [id number] 00:25:00 Test Item Value Reference Range Comments POC-GLUCOSE METER (BEAKER) 234 mg/dL 70-110 TESTED AT [address] (test qemj=3387) [facility] [address] [id number] 22:40:00 Test Item Value Reference Range Comments MAGNESIUM (BEAKER) (test gtxj=043) 2.0 mg/dL 1.6-2.6 PROTHROMBIN [id number] 22:34:00 Test Item Value Reference Range Comments PROTIME (BEAKER) (test saay=201) 18.0 seconds 11.7-14.7 INR (BEAKER) (test eeex=870) 1.5 <=5.9 RECOMMENDED COUMADIN/WARFARIN INR THERAPY RANGESSTANDARD DOSE: 2.0 - 3.0 Includes: PROPHYLAXIS forvenous thrombosis, systemic embolization; TREATMENT for venous thrombosis and/or pulmonary embolus.HIGH RISK: Target INR is 2.5-3.5 for patients with mechanical heart valves.HEMOGLOBIN AND [id number] 22 :27:00 Test Item Value Reference Range Comments HEMOGLOBIN (BEAKER) (test hjsg=116) 8.3 GM/DL 13.7-17.5 HEMATOCRIT (BEAKER) (test avqg=490) 25.9 % 40.1-51.0 POCT-GLUCOSE [id number] 18:46:00 Test Item Value Reference Range Comments POC-GLUCOSE METER (BEAKER) 318 mg/dL 70-110 Notified AGUSTINA FOUNTAIN/TESTED AT [facility] (test icia=2152) [address] [place] [id number] CREATINE KINASE (CK), TOTAL AND [id number] 18:06:00 Test Item Value Reference Range Comments CREATINE KINASE TOTAL (BEAKER) (test ngdl=759) 155 U/L 29-200 CREATINE KINASE-MB (BEAKER) (test hiur=803) 1.2 ng/mL 0.0-6.6 CREATINE KINASE-MB INDEX (BEAKER) (test obfk=588) 0.8 % CK-MB Reference Range:<6.7 Normal6.7-10.0 Borderline>10.0 AbnormalTROPONIN [id number] 18:06:00 Test Item Value Reference Range Comments TROPONIN I (BEAKER) (test opcl=980) 0.15 ng/mL 0.00-0.03 Troponin I (TnI) levels [...] acute neurological disease, and persistent tachyarrhythmia.HEMOGLOBIN AND [id number] 17: 41:00 Test Item Value Reference Range Comments HEMOGLOBIN (BEAKER) (test mmrz=883) 8.7 GM/DL 13.7-17.5 HEMATOCRIT (BEAKER) (test joqs=833) 27.0 % 40.1-51.0 RAD, CHEST, 1 VIEW, NON [id number] 17:39:00Reason for exam:->central line placement Should this be performed at the bedside?->YesFINAL REPORT AP view of the chest dated 06/01/2017 COMPARISON: June [id number] CLINICAL INFORMATION: central line placement Comment: Since prior examination, there is intervalplacement of a right IJ central venous catheter. No pneumothorax is noted. No other changes are seenin the chest. Signed: [facility] Verified Date/Time: 06/01/2017 17:39:56 Reading Location: [facility] [id number] Consult Reading Room BASI METABOLIC [id number] 13:20:00 Test Item Value Reference Range Comments SODIUM (BEAKER) (test 155 meq/L 136-145 gmmd=030) POTASSIUM (BEAKER) (test 3.6 meq/L 3.5-5.1 ryuq=014) CHLORIDE (BEAKER) (test 126 meq/L 98-107 hbfj=519) CO2 (BEAKER) (test 19 meq/L 22-29 zltw=286) BLOOD UREA NITROGEN 99 mg/dL 7-21 (BEAKER) (test xffs=868) CREATININE (BEAKER) (test 1.20 mg/dL 0.57-1.25 kacp=162) GLUCOSE RANDOM (BEAKER) 167 mg/dL 70-105 (test qwdo=949) CALCIUM (BEAKER) (test 8.5 mg/dL 8.4-10.2 sipc=752) EGFR (BEAKER) (test 58 mL/min/1.73 sq m ESTIMATED GFR IS NOT nfgy=1619) ACCURATE CREATININE CLEARANCE IN PREDICTING GLOMERULAR FILTRATION RATE. ESTIMATED GFR IS NOT APPLICABLE FOR DIALYSIS PATIENTS. TROPONIN [id number] 13:20:00 Test Item Value Reference Range Comments TROPONIN I (BEAKER) (test daly=806) 0.18 ng/mL 0.00-0.03 Troponin I (TnI) levels [...] and persistent tachyarrhythmia.CREATINE KINASE (CK), TOTAL AND [id number] 12:59:00 Test Item Value Reference Range Comments CREATINE KINASE TOTAL (BEAKER) (test sujt=211) 192 U/L 29-200 CREATINE KINASE-MB (BEAKER) (test tzwc=755) 1.2 ng/mL 0.0-6.6 CREATINE KINASE-MB INDEX (BEAKER) (test mklg=146) 0.6 % CK-MB Reference Range:<6.7 Normal6.7-10.0 Borderline>10.0 AbnormalLACTIC ACID, VENOUS, WHOLE [id number] 12:45:00 Test Item Value Reference Range Comments LACTATE BLOOD VENOUS (2) (BEAKER) (test 0.8 mmol/L 0.5-2.2 azgb=6805) Effective 06/10/2015: Units/Reference Range ChangeNew: 0.5-2.2 mmol/L Previous: 5 -20 mg/dLPT/[id number] 12:29:00 Test Item Value Reference Range Comments PROTIME (BEAKER) (test vmrh=146) 21.1 seconds 11.7-14.7 INR (BEAKER) (test upmq=281) 1.8 <=5.9 PARTIAL THROMBOPLASTIN TIME (BEAKER) (test 38.1 seconds 22.5-36.0 hzyu=287) RECOMMENDED COUMADIN/WARFARIN INR THERAPY RANGESSTANDARD DOSE: 2.0 - 3.0 Includes: PROPHYLAXIS forvenous thrombosis, systemic embolization; TREATMENT for venous thrombosis and/or pulmonary embolus.HIGH RISK: Target INR is 2.5-3.5 for patients with mechanical heart valves.POCT-GLUCOSE [id number] 12:28:00 Test Item Value Reference Range Comments POC-GLUCOSE METER (BEAKER) 180 mg/dL 70-110 TESTED AT [address] (test xptn=7963) [facility] [address] BLOOD GAS, [id number] 12:24:00 Test Item Value Reference Range Comments PH ARTERIAL (BEAKER) (test xhyt=475) 7.49 7.35-7.45 PCO2 ARTERIAL (BEAKER) (test zsom=821) 27 mmHg 35-45 PO2 ARTERIAL (BEAKER) (test wqsr=863) 100 mmHg 80-90 O2 SATURATION ARTERIAL (BEAKER) (test mblh=635) 98.1 % 96.0-97.0 HCO3 ARTERIAL (BEAKER) (test znxq=934) 20 mmol/L 21-29 BASE EXCESS ARTERIAL (BEAKER) (test qtmc=483) -2.8 mmol/L -2.0-3.0 PATIENT TEMPERATURE (BEAKER) (test wekp=0031) 36.6 C FIO2 (BEAKER) (test cptz=3435) 40.0 % HEMOGLOBIN AND [id number] 12:20:00 Test Item Value Reference Range Comments HEMOGLOBIN (BEAKER) (test hbud=517) 7.4 GM/DL 13.7-17.5 HEMATOCRIT (BEAKER) (test zews=315) 23.2 % 40.1-51.0 POCT-GLUCOSE [id number] 11:20:00 Test Item Value Reference Range Comments POC-GLUCOSE METER (BEAKER) 113 mg/dL 70-110 TESTED AT 63 [address] (test udgd=5579) [place] [id number] POCT-GLUCOSE [id number] 11:20:00 Test Item Value Reference Range Comments POC-GLUCOSE METER (BEAKER) 73 mg/dL 70-110 TESTED AT [address] (test hkkt=9866) [place] [address] RAD, CHEST, 1 VIEW, NON [id number] 08:21:00Reason for exam:->acess for pulmonary edemaShould this [...] pneumonitis. No pneumothorax is seen. Signed: Tanisha Montalvo MDReport Verified Date/Time: 06/01/2017 08:21:22 Reading Location: [facility] Radiology Reading Room POCT-GLUCOSE [id number] 07:34:00 Test Item Value Reference Range Comments POC-GLUCOSE METER (BEAKER) 126 mg/dL 70-110 TESTED AT [address] (test lfxi=6505) [place] [address] POCT-GLUCOSE [id number] 06:58:00 Test Item Value Reference Range Comments POC-GLUCOSE METER (BEAKER) 171 mg/dL 70-110 TESTED AT [address] (test bgnf=8507) [place] [address] POCT-GLUCOSE [id number] 06:58:00 Test Item Value Reference Range Comments POC-GLUCOSE METER (BEAKER) 210 mg/dL 70-110 TESTED AT [address] (test gxdj=2364) [place] [address] BASIC METABOLIC [id number] 05:04:00 Test Item Value Reference Range Comments SODIUM (BEAKER) (test 158 meq/L 136-145 bacj=877) POTASSIUM (BEAKER) (test 3.5 meq/L 3.5-5.1 xjcs=672) CHLORIDE (BEAKER) (test 122 meq/L 98-107 dvlg=172) CO2 (BEAKER) (test 23 meq/L 22-29 cqso=479) BLOOD UREA NITROGEN 116 mg/dL 7-21 (BEAKER) (test flqx=000) CREATININE (BEAKER) (test 1.39 mg/dL 0.57-1.25 wpyy=644) GLUCOSE RANDOM (BEAKER) 178 mg/dL 70-105 (test dtzv=265) CALCIUM (BEAKER) (test 8.7 mg/dL 8.4-10.2 vjez=472) EGFR (BEAKER) (test 49 mL/min/1.73 sq m ESTIMATED GFR IS NOT wzpb=3965) ACCURATE CREATININE CLEARANCE IN PREDICTING GLOMERULAR FILTRATION RATE. ESTIMATED GFR IS NOT APPLICABLE FOR DIALYSIS PATIENTS. TROPONIN [id number] 05:02:00 Test Item Value Reference Range Comments TROPONIN I (BEAKER) (test cikd=163) 0.22 ng/mL 0.00-0.03 Troponin I (TnI) levels [...] and persistent tachyarrhythmia.CREATINE KINASE (CK), TOTAL AND [id number] 04:58:00 Test Item Value Reference Range Comments CREATINE KINASE TOTAL (BEAKER) (test dcrn=917) 236 U/L 29-200 CREATINE KINASE-MB (BEAKER) (test mpnb=112) 1.6 ng/mL 0.0-6.6 CREATINE KINASE-MB INDEX (BEAKER) (test iskd=488) 0.7 % CK-MB Reference Range:<6.7 Normal6.7-10.0 Borderline>10.0 [id number] 04:52:00 Test Item Value Reference Range Comments PHOSPHORUS (BEAKER) (test xrvc=119) 3.1 mg/dL 2.3-4.7 [id number] 04:52:00 Test Item Value Reference Range Comments MAGNESIUM (BEAKER) (test yvjc=583) 2.3 mg/dL 1.6-2.6 LACTIC ACID, VENOUS, WHOLE [id number] 04:45:00 Test Item Value Reference Range Comments LACTATE BLOOD VENOUS (2) (BEAKER) (test 1.9 mmol/L 0.5-2.2 elhn=6158) Effective 06/10/2015: Units/Reference Range ChangeNew: 0.5-2.2 mmol/L Previous: 5 -20 mg/dLPOCT-GLUCOSE [id number] 03:55:00 Test Item Value Reference Range Comments POC-GLUCOSE METER (BEAKER) 175 mg/dL 70-110 TESTED AT [address] (test pvxh=3878) [facility] [address] POCT-GLUCOSE [id number] 03:55:00 Test Item Value Reference Range Comments POC-GLUCOSE METER (BEAKER) 83 mg/dL 70-110 TESTED AT [address] (test fdas=2603) [facility] [address] CBC W/PLT COUNT & AUTO [id number] 02:01:00 Test Item Value Reference Range Comments WHITE BLOOD CELL COUNT (BEAKER) (test lwaf=732) 14.4 K/ L 3.5-10.5 RED BLOOD CELL COUNT (BEAKER) (test oway=588) 2.62 M/ L 4.63-6.08 HEMOGLOBIN (BEAKER) (test zpvw=382) 8.2 GM/DL 13.7-17.5 HEMATOCRIT (BEAKER) (test euah=748) 25.5 % 40.1-51.0 MEAN CORPUSCULAR VOLUME (BEAKER) (test qpjb=407) 97.3 fL 79.0-92.2 MEAN CORPUSCULAR HEMOGLOBIN (BEAKER) (test 31.3 pg 25.7-32.2 pkph=838) MEAN CORPUSCULAR HEMOGLOBIN CONC (BEAKER) (test 32.2 GM/DL 32.3-36.5 tqtn=560) RED CELL DISTRIBUTION WIDTH (BEAKER) (test 21.2 % 11.6-14.4 kgrc=450) PLATELET COUNT (BEAKER) (test tyfd=216) 200 K/CU MM 150-450 MEAN PLATELET VOLUME (BEAKER) (test ttcc=294) 10.8 fL 9.4-12.4 NUCLEATED RED BLOOD CELLS (BEAKER) (test 7 /100 WBC 0-0 vxfu=028) NEUTROPHILS RELATIVE PERCENT (BEAKER) (test 70 % dqsy=860) LYMPHOCYTES RELATIVE PERCENT (BEAKER) (test 19 % qkyg=352) MONOCYTES RELATIVE PERCENT (BEAKER) (test 9 % ttlz=993) EOSINOPHILS RELATIVE PERCENT (BEAKER) (test 0 % lkyx=540) BASOPHILS RELATIVE PERCENT (BEAKER) (test 0 % fryt=006) NEUTROPHILS ABSOLUTE COUNT (BEAKER) (test 10.14 K/ L 1.78-5.38 fcct=001) LYMPHOCYTES ABSOLUTE COUNT (BEAKER) (test 2.80 K/ L 1.32-3.57 lijp=420) MONOCYTES ABSOLUTE COUNT (BEAKER) (test 1.26 K/ L 0.30-0.82 ubul=794) EOSINOPHILS ABSOLUTE COUNT (BEAKER) (test 0.03 K/ L 0.04-0.54 auxf=575) BASOPHILS ABSOLUTE COUNT (BEAKER) (test 0.04 K/ L 0.01-0.08 voub=801) IMMATURE GRANULOCYTES-RELATIVE PERCENT (BEAKER) 1 % 0-1 (test dbxq=1113) LACTIC ACID, VENOUS, WHOLE [id number] 22:35:00 Test Item Value Reference Range Comments LACTATE BLOOD VENOUS (2) 1.2 mmol/L 0.5-2.2 Specimen slightly hemolyzed (BEAKER) (test stko=8166) Effective 06/10/2015: Units/Reference Range ChangeNew: 0.5-2.2 mmol/L Previous: 5 -20 mg/dLHEMOGLOBIN AND [id number] 22:12:00 Test Item Value Reference Range Comments HEMOGLOBIN (BEAKER) (test akef=896) 7.7 GM/DL 13.7-17.5 HEMATOCRIT (BEAKER) (test ghee=592) 24.0 % 40.1-51.0 POCT-GLUCOSE [id number] 21:02:00 Test Item Value Reference Range Comments POC-GLUCOSE METER (BEAKER) 131 mg/dL 70-110 TESTED AT [address] (test cqbm=1727) [facility] [address] POCT-GLUCOSE [id number] 19:57:00 Test Item Value Reference Range Comments POC-GLUCOSE METER (BEAKER) 159 mg/dL 70-110 TESTED AT [address] (test jyeq=0675) [place] [id number] POCT-GLUCOSE [id number] 18:42:00 Test Item Value Reference Range Comments POC-GLUCOSE METER (BEAKER) 186 mg/dL 70-110 TESTED AT [address] (test wnky=8077) [place] [id number] POCT-GLUCOSE [id number] 18:33:00 Test Item Value Reference Range Comments POC-GLUCOSE METER (BEAKER) 181 mg/dL 70-110 TESTED AT [address] (test kjkg=3718) [place] [id number] POCT-GLUCOSE [id number] 18:33:00 Test Item Value Reference Range Comments POC-GLUCOSE METER (BEAKER) 226 mg/dL 70-110 TESTED AT [address] (test xeiz=4655) [place] [id number] POCT-GLUCOSE [id number] 18:33:00 Test Item Value Reference Range Comments POC-GLUCOSE METER (BEAKER) 257 mg/dL 70-110 TESTED AT [address] (test othz=6729) [place] [address] TROPONIN [id number] 18:15:00 Test Item Value Reference Range Comments TROPONIN I (BEAKER) (test pefq=419) 0.16 ng/mL 0.00-0.03 Troponin I (TnI) levels [...] and persistent tachyarrhythmia.CREATINE KINASE (CK), TOTAL AND [id number] 18:14:00 Test Item Value Reference Range Comments CREATINE KINASE TOTAL (BEAKER) (test esxg=837) 454 U/L 29-200 CREATINE KINASE-MB (BEAKER) (test ikye=057) 3.0 ng/mL 0.0-6.6 CREATINE KINASE-MB INDEX (BEAKER) (test hclp=709) 0.7 % CK-MB Reference Range:<6.7 Normal6.7-10.0 Borderline>10.0 AbnormalBLOOD GAS, [id number] 17:57:00 Test Item Value Reference Range Comments PH ARTERIAL (BEAKER) (test ftyr=968) 7.45 7.35-7.45 PCO2 ARTERIAL (BEAKER) (test mlnp=880) 37 mmHg 35-45 PO2 ARTERIAL (BEAKER) (test wevp=752) 123 mmHg 80-90 O2 SATURATION ARTERIAL (BEAKER) (test xtcv=470) 98.6 % 96.0-97.0 HCO3 ARTERIAL (BEAKER) (test ufin=012) 25 mmol/L 21-29 BASE EXCESS ARTERIAL (BEAKER) (test xais=976) 0.8 mmol/L -2.0-3.0 PATIENT TEMPERATURE (BEAKER) (test cnal=3100) 37.1 C FIO2 (BEAKER) (test mnwh=2741) 40.0 % HEMOGLOBIN AND [id number] 17:47:00 Test Item Value Reference Range Comments HEMOGLOBIN (BEAKER) (test ufzv=640) 7.7 GM/DL 13.7-17.5 HEMATOCRIT (BEAKER) (test puiu=760) 23.3 % 40.1-51.0 EEG AWAKE/ASLEEP AND [id number] 17:06:00Reason for exam:->syncopal episode r/o seizure activityShould this be performed at the bedside?->YesDate (s) of EE05/31/17ACC: [id number] Number: [id number] Location: Inpatient ICUStart time: 16:25Stop time: 16:46ICD-10: G93.40CPT Code: 56509 HISTORY: 82 years-old with GI bleed and [...] well as with other [place] widespread, non-metabolic GRAPHOTYPE OPERATOR insults (such as trauma or aftermath of significant seizures). Jovanny Montanez M.D.Neurophysiology Fellow, PGY5 Rikki Zayas M.D.Clinical Neurophysiology/ Epilepsy Attending Electronically signed by: RIKKI ZAYAS MD on 05/31 05:06 PMRAD, CHEST, 1 VIEW, NON [id number] 16:55:00Reason for exam:-& gt;Post intubationShould this be [...] No pneumothorax is seen. Signed: Tanisha Montalvo [facility] Verified Date/Time: 05/31/2017 16:55:11 Reading Location: [facility] [id number] Consult Reading Room HEMOGLOBIN [id number] 15:51: 00 Test Item Value Reference Range Comments HEMOGLOBIN A1C (BEAKER) (test wpgu=698) 6.1 % 4.3-6.1 POCT-GLUCOSE [id number] 15:03:00 Test Item Value Reference Range Comments POC-GLUCOSE METER (BEAKER) 150 mg/dL 70-110 TESTED AT [address] (test gaip=4061) [address] METABOLIC [id number] 13:41:00 Test Item Value Reference Range Comments SODIUM (BEAKER) (test 154 meq/L 136-145 omwd=403) POTASSIUM (BEAKER) (test 4.2 meq/L 3.5-5.1 mmzu=561) CHLORIDE (BEAKER) (test 122 meq/L 98-107 wxbp=387) CO2 (BEAKER) (test 21 meq/L 22-29 vxyb=205) BLOOD UREA NITROGEN 128 mg/dL 7-21 (BEAKER) (test nelj=296) CREATININE (BEAKER) (test 1.49 mg/dL 0.57-1.25 mkqb=857) GLUCOSE RANDOM (BEAKER) 161 mg/dL 70-105 (test ycrw=097) CALCIUM (BEAKER) (test 9.0 mg/dL 8.4-10.2 xxgj=822) EGFR (BEAKER) (test 45 mL/min/1.73 sq m ESTIMATED GFR IS NOT fpag=2858) ACCURATE CREATININE CLEARANCE IN PREDICTING GLOMERULAR FILTRATION RATE. ESTIMATED GFR IS NOT APPLICABLE FOR DIALYSIS PATIENTS. [id number] 13:34:00 Test Item Value Reference Range Comments PHOSPHORUS (BEAKER) (test tnez=529) 4.0 mg/dL 2.3-4.7 [id number] 13:34:00 Test Item Value Reference Range Comments MAGNESIUM (BEAKER) (test rlxb=170) 2.2 mg/dL 1.6-2.6 LACTIC ACID, VENOUS, WHOLE [id number] 13:20:00 Test Item Value Reference Range Comments LACTATE BLOOD VENOUS (2) (BEAKER) (test 1.8 mmol/L 0.5-2.2 cvhu=1002) Effective 06/10/2015: Units/Reference Range ChangeNew: 0.5-2.2 mmol/L Previous: 5 -20 mg/dLCBC W/PLT COUNT & AUTO [id number] 13:08:00 Test Item Value Reference Range Comments WHITE BLOOD CELL COUNT (BEAKER) (test cbhc=588) 16.7 K/ L 3.5-10.5 RED BLOOD CELL COUNT (BEAKER) (test gknj=603) 2.71 M/ L 4.63-6.08 HEMOGLOBIN (BEAKER) (test jlhu=391) 8.3 GM/DL 13.7-17.5 HEMATOCRIT (BEAKER) (test rlzg=741) 25.3 % 40.1-51.0 MEAN CORPUSCULAR VOLUME (BEAKER) (test xwge=685) 93.4 fL 79.0-92.2 MEAN CORPUSCULAR HEMOGLOBIN (BEAKER) (test 30.6 pg 25.7-32.2 gusx=059) MEAN CORPUSCULAR HEMOGLOBIN CONC (BEAKER) (test 32.8 GM/DL 32.3-36.5 pvey=129) RED CELL DISTRIBUTION WIDTH (BEAKER) (test 19.6 % 11.6-14.4 zgxy=288) PLATELET COUNT (BEAKER) (test azhg=307) 200 K/CU MM 150-450 MEAN PLATELET VOLUME (BEAKER) (test xxib=338) 10.7 fL 9.4-12.4 NUCLEATED RED BLOOD CELLS (BEAKER) (test 14 /100 WBC 0-0 skvu=691) NEUTROPHILS RELATIVE PERCENT (BEAKER) (test 71 % xqea=893) LYMPHOCYTES RELATIVE PERCENT (BEAKER) (test 15 % zdny=645) MONOCYTES RELATIVE PERCENT (BEAKER) (test 13 % cvic=437) EOSINOPHILS RELATIVE PERCENT (BEAKER) (test 0 % vytn=039) BASOPHILS RELATIVE PERCENT (BEAKER) (test 0 % zxuf=723) NEUTROPHILS ABSOLUTE COUNT (BEAKER) (test 11.78 K/ L 1.78-5.38 rxuq=885) LYMPHOCYTES ABSOLUTE COUNT (BEAKER) (test 2.45 K/ L 1.32-3.57 yqml=237) MONOCYTES ABSOLUTE COUNT (BEAKER) (test 2.12 K/ L 0.30-0.82 ocuh=697) EOSINOPHILS ABSOLUTE COUNT (BEAKER) (test 0.01 K/ L 0.04-0.54 ceyu=777) BASOPHILS ABSOLUTE COUNT (BEAKER) (test 0.06 K/ L 0.01-0.08 rahr=718) IMMATURE GRANULOCYTES-RELATIVE PERCENT (BEAKER) 2 % 0-1 (test rqjs=4884) HEMOGLOBIN AND [id number] 13:00:00 Test Item Value Reference Range Comments HEMOGLOBIN (BEAKER) (test dchm=726) 8.3 GM/DL 13.7-17.5 HEMATOCRIT (BEAKER) (test zldr=568) 25.3 % 40.1-51.0 POCT-GLUCOSE [id number] 12:13:00 Test Item Value Reference Range Comments POC-GLUCOSE METER (BEAKER) 119 mg/dL 70-110 TESTED AT [address] (test sivu=8094) [place] [id number] POCT-GLUCOSE [id number] 12:13:00 Test Item Value Reference Range Comments POC-GLUCOSE METER (BEAKER) 150 mg/dL 70-110 TESTED AT [address] (test swum=7140) [place] [id number] POCT-GLUCOSE [id number] 12:13:00 Test Item Value Reference Range Comments POC-GLUCOSE METER (BEAKER) 211 mg/dL 70-110 TESTED AT [address] (test uwlm=5319) [place] [id number] POCT-GLUCOSE [id number] 12:13:00 Test Item Value Reference Range Comments POC-GLUCOSE METER (BEAKER) 272 mg/dL 70-110 TESTED AT [address] (test mumu=2371) [place] [address] B-TYPE NATRIURETIC FACTOR (BNP)2017-05-31 08:12:00 Test Item Value Reference Range Comments B-TYPE NATRIURETIC PEPTIDE (BEAKER) (test 558 pg/mL 0-100 cpxe=239) CREATINE KINASE (CK), TOTAL AND [id number] 07:37:00 Test Item Value Reference Range Comments CREATINE KINASE TOTAL (BEAKER) (test rrvv=389) 560 U/L 29-200 CREATINE KINASE-MB (BEAKER) (test qgui=803) 4.9 ng/mL 0.0-6.6 CREATINE KINASE-MB INDEX (BEAKER) (test fphy=532) 0.9 % CK-MB Reference Range:<6.7 Normal6.7-10.0 Borderline>10.0 AbnormalTROPONIN [id number] 07:37:00 Test Item Value Reference Range Comments TROPONIN I (BEAKER) (test djch=755) 0.07 ng/mL 0.00-0.03 Troponin I (TnI) levels [...] failure, acidosis, acute neurological disease, and persistent tachyarrhythmia.[id number] 07:26:00 Test Item Value Reference Range Comments ETHANOL (BEAKER) (test torc=865) < mg/dL <=10 POCT-GLUCOSE [id number] 06:52:00 Test Item Value Reference Range Comments POC-GLUCOSE METER (BEAKER) 284 mg/dL 70-110 TESTED AT [address] (test vior=0278) [place] [id number] POCT-GLUCOSE [id number] 05:47:00 Test Item Value Reference Range Comments POC-GLUCOSE METER (BEAKER) 406 mg/dL 70-110 TESTED AT [address] (test wagl=8642) [place] [id number] POCT-GLUCOSE [id number] 05:47:00 Test Item Value Reference Range Comments POC-GLUCOSE METER (BEAKER) 405 mg/dL 70-110 TESTED AT [address] (test xvxa=2374) [place] [id number] POCT-GLUCOSE [id number] 05:47:00 Test Item Value Reference Range Comments POC-GLUCOSE METER (BEAKER) 429 mg/dL 70-110 TESTED AT [address] (test cydb=2037) [facility] [address] BASIC METABOLIC [id number] 04:02:00 Test Item Value Reference Range Comments SODIUM (BEAKER) (test 150 meq/L 136-145 qxyu=702) POTASSIUM (BEAKER) (test 4.2 meq/L 3.5-5.1 zjoa=222) CHLORIDE (BEAKER) (test 117 meq/L 98-107 wemm=139) CO2 (BEAKER) (test 18 meq/L 22-29 mpil=466) BLOOD UREA NITROGEN 154 mg/dL 7-21 (BEAKER) (test cqzh=291) CREATININE (BEAKER) (test 1.81 mg/dL 0.57-1.25 ajec=963) GLUCOSE RANDOM (BEAKER) 389 mg/dL 70-105 (test ffts=141) CALCIUM (BEAKER) (test 8.7 mg/dL 8.4-10.2 xmgp=851) EGFR (BEAKER) (test 36 mL/min/1.73 sq m ESTIMATED GFR IS NOT qnlp=3606) ACCURATE CREATININE CLEARANCE IN PREDICTING GLOMERULAR FILTRATION RATE. ESTIMATED GFR IS NOT APPLICABLE FOR DIALYSIS PATIENTS. [id number] 03:59:00 Test Item Value Reference Range Comments PHOSPHORUS (BEAKER) (test shro=526) 4.4 mg/dL 2.3-4.7 [id number] 03:59:00 Test Item Value Reference Range Comments MAGNESIUM (BEAKER) (test fszk=664) 2.2 mg/dL 1.6-2.6 VANCOMYCIN LEVEL, [id number] 03:49:00 Test Item Value Reference Range Comments VANCOMYCIN RANDOM (BEAKER) (test vflr=075) 19.0 ug/mL Reference Range: No NormalsCBC W/PLT COUNT & AUTO [id number] 03: 41:00 Test Item Value Reference Range Comments WHITE BLOOD CELL COUNT (BEAKER) (test wngt=226) 18.9 K/ L 3.5-10.5 RED BLOOD CELL COUNT (BEAKER) (test bbni=042) 2.35 M/ L 4.63-6.08 HEMOGLOBIN (BEAKER) (test sqau=647) 7.4 GM/DL 13.7-17.5 HEMATOCRIT (BEAKER) (test fjee=257) 22.7 % 40.1-51.0 MEAN CORPUSCULAR VOLUME (BEAKER) (test swqh=211) 96.6 fL 79.0-92.2 MEAN CORPUSCULAR HEMOGLOBIN (BEAKER) (test 31.5 pg 25.7-32.2 lkvy=633) MEAN CORPUSCULAR HEMOGLOBIN CONC (BEAKER) (test 32.6 GM/DL 32.3-36.5 pafw=350) RED CELL DISTRIBUTION WIDTH (BEAKER) (test 18.2 % 11.6-14.4 xobt=800) PLATELET COUNT (BEAKER) (test sipr=901) 206 K/CU MM 150-450 MEAN PLATELET VOLUME (BEAKER) (test wbgh=458) 10.8 fL 9.4-12.4 NUCLEATED RED BLOOD CELLS (BEAKER) (test 7 /100 WBC 0-0 apyh=641) NEUTROPHILS RELATIVE PERCENT (BEAKER) (test 75 % oyal=225) LYMPHOCYTES RELATIVE PERCENT (BEAKER) (test 12 % uqsx=596) MONOCYTES RELATIVE PERCENT (BEAKER) (test 11 % spjt=737) EOSINOPHILS RELATIVE PERCENT (BEAKER) (test 0 % uasb=704) BASOPHILS RELATIVE PERCENT (BEAKER) (test 0 % ynlc=356) NEUTROPHILS ABSOLUTE COUNT (BEAKER) (test 14.26 K/ L 1.78-5.38 jjsj=542) LYMPHOCYTES ABSOLUTE COUNT (BEAKER) (test 2.29 K/ L 1.32-3.57 nfka=520) MONOCYTES ABSOLUTE COUNT (BEAKER) (test 2.05 K/ L 0.30-0.82 eqln=263) EOSINOPHILS ABSOLUTE COUNT (BEAKER) (test 0.00 K/ L 0.04-0.54 ssta=310) BASOPHILS ABSOLUTE COUNT (BEAKER) (test 0.02 K/ L 0.01-0.08 buoq=881) IMMATURE GRANULOCYTES-RELATIVE PERCENT (BEAKER) 2 % 0-1 (test ttrv=8367) LACTIC ACID, VENOUS, WHOLE [id number] 03:29:00 Test Item Value Reference Range Comments LACTATE BLOOD VENOUS (2) (BEAKER) (test 3.1 mmol/L 0.5-2.2 vcpr=9518) Effective 06/10/2015: Units/Reference Range ChangeNew: 0.5-2.2 mmol/L Previous: 5 -20 mg/dLCALCIUM, [id number] 03:17:00 Test Item Value Reference Range Comments CALCIUM IONIZED (BEAKER) (test ytvv=462) 1.14 mmol/L 1.12-1.27 PH, BLOOD (BEAKER) (test ugwr=9810) 7.31 BASIC METABOLIC [id number] 23:39:00 Test Item Value Reference Range Comments SODIUM (BEAKER) (test 150 meq/L 136-145 efje=663) POTASSIUM (BEAKER) (test 4.2 meq/L 3.5-5.1 lvej=344) CHLORIDE (BEAKER) (test 118 meq/L 98-107 uump=479) CO2 (BEAKER) (test 18 meq/L 22-29 iwbk=144) BLOOD UREA NITROGEN 147 mg/dL 7-21 (BEAKER) (test aeun=774) CREATININE (BEAKER) (test 1.63 mg/dL 0.57-1.25 wlsy=435) GLUCOSE RANDOM (BEAKER) 350 mg/dL 70-105 (test oxar=194) CALCIUM (BEAKER) (test 8.4 mg/dL 8.4-10.2 ipjc=561) EGFR (BEAKER) (test 41 mL/min/1.73 sq m ESTIMATED GFR IS NOT kxfu=7933) ACCURATE CREATININE CLEARANCE IN PREDICTING GLOMERULAR FILTRATION RATE. ESTIMATED GFR IS NOT APPLICABLE FOR DIALYSIS PATIENTS. [id number] 23:16:00 Test Item Value Reference Range Comments AMMONIA (BEAKER) (test tuoz=882) 32 mol/L 18-72 HEPATIC FUNCTION [id number] 23:13:00 Test Item Value Reference Range Comments TOTAL PROTEIN (BEAKER) (test vvjm=387) 5.9 gm/dL 6.0-8.3 ALBUMIN (BEAKER) (test vpnp=3838) 3.3 g/dL 3.5-5.0 BILIRUBIN TOTAL (BEAKER) (test whzc=912) 0.7 mg/dL 0.2-1.2 BILIRUBIN DIRECT (BEAKER) (test gfng=366) 0.3 mg/dL 0.1-0.5 ALKALINE PHOSPHATASE (BEAKER) (test delg=900) 45 U/L 40-150 AST (SGOT) (BEAKER) (test lfkm=326) 50 U/L 5-34 ALT (SGPT) (BEAKER) (test qevn=031) 20 U/L 6-55 CBC W/PLT COUNT & AUTO [id number] 22:55:00 Test Item Value Reference Range Comments WHITE BLOOD CELL COUNT (BEAKER) (test mmbc=121) 21.6 K/ L 3.5-10.5 RED BLOOD CELL COUNT (BEAKER) (test fedm=945) 2.32 M/ L 4.63-6.08 HEMOGLOBIN (BEAKER) (test gyom=517) 7.3 GM/DL 13.7-17.5 HEMATOCRIT (BEAKER) (test sqhk=594) 22.9 % 40.1-51.0 MEAN CORPUSCULAR VOLUME (BEAKER) (test ptrh=310) 98.7 fL 79.0-92.2 MEAN CORPUSCULAR HEMOGLOBIN (BEAKER) (test 31.5 pg 25.7-32.2 jljo=600) MEAN CORPUSCULAR HEMOGLOBIN CONC (BEAKER) (test 31.9 GM/DL 32.3-36.5 nhbm=735) RED CELL DISTRIBUTION WIDTH (BEAKER) (test 18.3 % 11.6-14.4 cgba=875) PLATELET COUNT (BEAKER) (test zfqx=606) 240 K/CU MM 150-450 MEAN PLATELET VOLUME (BEAKER) (test aavd=818) 10.2 fL 9.4-12.4 NUCLEATED RED BLOOD CELLS (BEAKER) (test 6 /100 WBC 0-0 jnsn=606) [id number] 22:52:00 Test Item Value Reference Range Comments MAGNESIUM (BEAKER) (test kbto=864) 2.4 mg/dL 1.6-2.6 [id number] 22:52:00 Test Item Value Reference Range Comments PHOSPHORUS (BEAKER) (test zbpn=225) 4.5 mg/dL 2.3-4.7 [id number] 22:49:00 Test Item Value Reference Range Comments FIBRINOGEN LEVEL (BEAKER) (test mldl=161) 390 mg/dl 225-434 RAD, ABDOMEN/KUB, 1 VIEW [id number] 22:46:00Reason for exam:->abdominal painShould this be performed [...] Sánchez Verified Date/Time: 05/30 22:46:58 Reading Location: [facility] B1 C013W Consult Reading Room RAD, CHEST, 1 VIEW, NON [id number] 22:45:00Post-intubationReason for exam:-> tachypneaShould this be performed [...] retrocardiac space atelectasis or pneumonia. Signed: Angeles Sánchezeport Verified Date/Time: 05/30/2017 22:45: 22 Reading Location: [facility] C013W Consult Reading Room PROTHROMBIN [id number] 22:44:00 Test Item Value Reference Range Comments PROTIME (BEAKER) (test ouov=189) 22.6 seconds 11.7-14.7 INR (BEAKER) (test yjpl=168) 2.0 <=5.9 RECOMMENDED COUMADIN/WARFARIN INR THERAPY RANGESSTANDARD DOSE: 2.0 - 3.0 Includes: PROPHYLAXIS forvenous thrombosis, systemic embolization; TREATMENT for venous thrombosis and/or pulmonary embolus.HIGH RISK: Target INR is 2.5-3.5 for patients with mechanical heart valves.URINALYSIS W/ [id number] 22 :34:00 Test Item Value Reference Range Comments COLOR (BEAKER) (test uynf=119) Light Yellow CLARITY (BEAKER) (test dfug=182) Clear SPECIFIC GRAVITY UA (BEAKER) (test zuzn=660) 1.011 1.001-1.035 PH UA (BEAKER) (test sjhw=971) 5.0 5.0-8.0 PROTEIN UA (BEAKER) (test kamo=549) Negative Negative GLUCOSE UA (BEAKER) (test dghk=163) Negative Negative KETONES UA (BEAKER) (test dkjr=971) Negative Negative BILIRUBIN UA (BEAKER) (test cxfo=454) Negative Negative BLOOD UA (BEAKER) (test rbtp=831) Moderate Negative NITRITE UA (BEAKER) (test taoo=851) Negative Negative LEUKOCYTE ESTERASE UA (BEAKER) (test bzzi=712) Negative Negative UROBILINOGEN UA (BEAKER) (test bpbg=163) 0.2 mg/dL 0.2-1.0 RBC UA (BEAKER) (test zncb=865) 12 /HPF WBC UA (BEAKER) (test ylhr=242) 8 /HPF BACTERIA (BEAKER) (test seml=339) Occasional MUCUS (BEAKER) (test dycl=8266) Rare SOURCE(BEAKER) (test qltw=0164) Urine, Reazo BLOOD GAS, [id number] 22:25:00 Test Item Value Reference Range Comments PH VENOUS (BEAKER) (test fgce=402) 7.37 7.32-7.42 PCO2 VENOUS (BEAKER) (test vtaq=019) 40 mmHg 41-51 PO2 VENOUS (BEAKER) (test mohc=372) 20 mmHg 25-40 O2 SATURATION VENOUS (BEAKER) (test igjv=243) 31.7 % 40.0-70.0 HCO3 VENOUS (BEAKER) (test mzfd=267) 22 mmol/L 21-29 BASE EXCESS VENOUS (BEAKER) (test twfb=616) -2.8 mmol/L -2.0-3.0 PATIENT TEMPERATURE (BEAKER) (test funi=1813) 36.6 C CALCIUM, [id number] 22:23:00 Test Item Value Reference Range Comments CALCIUM IONIZED (BEAKER) (test pggr=098) 1.12 mmol/L 1.12-1.27 PH, BLOOD (BEAKER) (test tkvn=6047) 7.36
--- OUTSIDE RECORDS SUMMARY | 2018-06-05 07:33 | XMS REPORT ---
:1935 Author Organization eClinicalWorks Care Team Providers Name Role Phone ValleRocco Provider Role Unavailable Allergies, Adverse Reactions, Alerts Substance Reaction Event Type N.K.D.A. 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 B96.20 Active coli] as the cause of diseases classified elsewhere Assessment Extended spectrum beta lactamase Z16.12 Active (ESBL) resistance Assessment S/P PICC central line placement Z95.828 Active Assessment Urinary tract infection, site not N39.0 Active specified Problem Status post above knee amputation Z89.619 Active Problem Renal failure N19 Active Problem Gout M10.9 Active Problem Atherosclerosis of coronary artery I25.10 Active of [place] heart Problem Hypomagnesemia E83.42 Active Medications Medication Code Code Instructions Start End Status Dosage System Date Date Tamsulosin HCl ND 16757937097 0.4 MG Orally Active 1 capsule Once a day Potassium ND 32581586508 20 MEQ Orally Active 1 tablet Chloride Once a day with food Atorvastatin ND 18662544959 40 MG Orally Active 1 tablet Calcium Once a day Allopurinol ND 14223551721 300 MG Orally Active 1 tablet Once a day Aspirin ND 58868240031 81 MG Orally Active 1 tablet Once a day Tolterodine ND 21162218147 1 MG Orally Active 1 tablet Tartrate Twice a day Glimepiride ND 30337841356 4 MG Orally Active 1 tablet Once a day with breakfast or the first main meal of the day Carvedilol [facility] 13892675631 12.5 MG Orally Active not defined Digoxin [facility] 77656832053 125 MCG Orally Active 1 tablet Once a day Catapres [facility] 10745988368 0.1 MG Orally Active 1 tablet at Once a day bedtime Vitamin B [facility] 53061918124 - Orally once Active 1 tablet Complex daily Magnesium Oxide [facility] 66532185226 400 MG Orally Active 1 tablet as Once a day needed Lasix [facility] 58559883962 40 MG Orally Active 1 tablet Once a day Results No Known Results Summary Purpose eClinicalWorks Submission
[2018-06-05] MEDS ORDERED: GENTAMICIN 80 MG/100 ML BAG 80 MG/100 ML BAG IV ONE (07:56)
[2018-06-05] MEDS ORDERED: NA CHLORIDE 0.9% 1,000 ML ONE (07:56)
[2018-06-05] MEDS ORDERED: LIDOCAINE 1% MPF 5 ML VIAL ONE (09:51)
[2018-06-05] MEDS ORDERED: PROPOFOL 200 MG/20 ML VIAL IV ONE (09:51)
[2018-06-05] MEDS ORDERED: FENTANYL CITR 100 MCG/2 ML ONE (10:05)
[2018-06-05 15:20] VITALS: TEMP 98.8
[2018-06-05 15:24] VITALS: BP 143/68; O2SAT 98
--- NOTE | 2018-06-05 21:40 | EKG ---
Test Date: 2018-06-05 Test Time: 09:48:54 Forming Process Line Worker: ALICIA MEASUREMENT RESULTS: Intervals: Rate: 84 FL: QRSD: 96 QT: 406 QTc: 479 [place]: P: FL: QRS: -29 T: 22 INTERPRETIVE STATEMENTS: Atrial fibrillation Abnormal ECG Compared to ECG 05/30/2017 15:06:50 Ventricular premature complex(es) no longer present Aberrant conduction of supraventricular beat(s) no longer present ST (T wave) deviation no longer present Myocardial infarct finding no longer present Electronically Signed On 06-05-18 21:38:30 CDT by Jose Guadalupe Cohen
== END 2018-06-05 14:25 | disposition home or self-care (01) ==
LOC: OR 07:22
PROVIDERS: ATTEND Urology
PROC: 0VB08ZZ Excision of Prostate, Via Natural or Artificial Opening Endoscopic (ICD-10-PCS; principal; 2018-06-05 10:15)
DX: N40.1 Benign prostatic hyperplasia with lower urinary tract symptoms (principal); N36.8 Other specified disorders of urethra; R39.12 Poor urinary stream; R30.0 Dysuria; N39.0 Urinary tract infection, site not specified; E11.9 Type 2 diabetes mellitus without complications; E78.00 Pure hypercholesterolemia, unspecified; I10 Essential (primary) hypertension; I25.10 Atherosclerotic heart disease of native coronary artery without angina pectoris; I48.91 Unspecified atrial fibrillation; I25.2 Old myocardial infarction; M10.9 Gout, unspecified; Z79.82 Long term (current) use of aspirin; Z79.84 Long term (current) use of oral hypoglycemic drugs; Z79.899 Other long term (current) drug therapy; Z95.1 Presence of aortocoronary bypass graft; Z95.810 Presence of automatic (implantable) cardiac defibrillator
CPT/HCPCS: 52601; 93005; 87088; 85025; 87086; 80048; 36415; 86900; 86850; 85610; 86901; 82962 ×2; 88305; 85730; 81003; 71046; J2704; J3010; J7030; J1580

== ENCOUNTER 2019-12-17 07:17 | Emergency (ER) | payer OTHER, BC ==
--- OUTSIDE RECORDS SUMMARY | 2019-12-17 07:19 | XMS REPORT | Clinical Summary ---
:1935 Author Organization [facility] Address [address] [place] [address] Care Team Providers Name Role Phone Asked, Pcp Primary Care Provider Unavailable Allergies Active Allergy Reactions Severity Noted Date Comments No Known Drug Allergies 11/18/2015 Medications Medication Sig Dispensed Refills Start Date End Date Status metFORMIN (GLUCOPHAGE) TAKE BY MOUTH 1/2 0 Active 500 mg tablet TABLET 2 TIMES A DAY glimepiride (AMARYL) 2 Take 2 mg by mouth 3 01/09/20 16 Active MG tablet once daily. 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 FEMORAL ARTERY - FEMORAL 02/14/2014 Left ARTERY BYPASS GRAFT FEMORAL ARTERY - TIBIAL 03/13/2014 Right 6 ARTERY BYPASS GRAFT ABOVE KNEE LEG AMPUTATION 06/12/2014 Right CORONARY ARTERY BYPASS GRAFT 02/06/2011 - x3 02/06/2012 STENT LAMINECTOMY 02/07/2008 - L4-5 02/05/2009 Medical History Medical History Date Comments Buttock pain left buttock Aortoiliac occlusive disease (HCC) CHF (congestive heart failure) (HCC) CAD (coronary artery disease) cardiac ar rest 1997 s/p Cabg x3 2011 STEMI (ST elevation myocardial infarction) (HCC) Dyslipidemia Wound of lower extremity Diabetes mellitus, type 2 (HCC) Hyperlipidemia Hypertension Pneumonia Cardiac arrest (HCC) 1997 Family History Medical History Relation Name Comments [...] Use Drinks/Week oz/Week Comments Yes moderate- 2 drin ks weekly Sex Assigned at Date Recorded Not on file Last Filed Vital Signs Not on file Plan of Treatment Health Maintenance Due Date Last Done Comments DIABETES: RETINAL EYE EXAM 1945 DIABETIC FOOT EXAM 1945 SHINGLES VACCINES (#1) 1987 INFLUENZA VACCINE 09/07/2019 12/25/2008, 12/12/2007 65+ PNEUMOCOCCAL VACCINE Completed 06/21/2010 Results Not on fileafter 12/16/2018 Insurance Payer Benefit Plan / Subscriber ID Effective Dates Phone Addre ss Type Group MEDICARE MEDICARE PART A [id number] 2002-Present REINALDO FRANK Medicare AND B BCBS BCBS CHOICE [id number] 2015-Present PPO PPO/F[employer]ERAL EMPL PPO Advance Directives For more information, please contact: [phone] Type Date Recorded Patient Non Licensed Operator Explanati on Advance Directives, Living Will and Medical Power of Rib Trim Separator
--- OUTSIDE RECORDS SUMMARY | 2019-12-17 07:19 | XMS REPORT | Clinical Summary ---
:1935 Author Organization [facility] Address [address] [place] [address] Care Team Providers Name Role Phone Joe Primary Care Provider Allergies No Known Allergies Medications Medication Sig Dispensed Refills Start Date End Date Status furosemide (LASIX) 40 Take 40 mg by 2 04/25/2017 Active MG tablet mouth 2 (two) times daily. folic acid (FOLVITE) 1 Take 1 mg by 3 05/11/2017 Active MG tablet mouth daily. magnesium oxide 400 mg Take 400 mg by 0 Active Cap mouth 2 (two) times daily. allopurinol (ZYLOPRIM) Take 100 mg by 0 Active 100 MG tablet mouth daily. atorvastatin (LIPITOR) Take 40 mg by 0 05/01/2017 Active 40 MG tablet mouth nightly. pantoprazole (PROTONIX) Take 1 tablet (40 30 tablet 0 06/20/19 18 Active 40 MG tablet mg total) by mouth 2 (two) times daily. Active Problems Problem Noted Date Disorientation 05/31/2017 A-fib 05/31/2017 Hypertension 05/31/2017 Hypernatremia 05/31/2017 Acute blood loss anemia 05/31/2017 Type 2 diabetes mellitus with complication, without lo ng-term current use 05/31/2017 of insulin Leukocytosis 05/31/2017 Agitation 05/31/2017 Acute encephalopathy 05/31/2017 Acute kidney injury 05/31/2017 GIB (gastrointestinal bleeding) 05/30/2017 Social History Tobacco Use Types Packs/Day Years Used Date Never Smoker Smokeless Tobacco: Never Used Alcohol Use Drinks/Week oz/Week Comments Yes 21 Shots of liquor 21.0 Sex Assigned at Date Recorded Not on file Last Filed Vital Signs Not on file Plan of Treatment Health Maintenance Due Date Last Done Comments DIABETIC EYE EXAM 1945 DIABETIC FOOT EXAM 1945 URINE MICROALBUMIN 1945 MEDICARE ANNUAL WELLNESS (YEAR 2 03/10/2003 or FIRST YEAR if no IPPE) HEMOGLOBIN A1C 12/02/2017 06/02/2017, 05/31/2017, 02/07/2011, Additional history exists INFLUENZA VACCINE (#1) 2019 12/25/2008, 12/12/2007 PNEUMOCOCCAL 65+ YRS Completed 06/21/2010 Results Not on fileafter 12/16/2018 Insurance Payer Benefit Plan Subscriber ID Effective Phone Address Typ e / Group Dates MEDICARE MEDICARE A B [id number] 2002-[place] andino nt BLUE BCBS PPO POS [id number] 2015-Freeman [phone] [address] PPO CROSS/BLUE EPO CHOICE nt [id number] [place] [address] Guarantor Name Account Type Relation to Date of Phone Billing Patient Address Javan Burrows Personal/Family Self 1935 [address] [facility] (Home) [place] [address] Advance Directives For more information, please contact: [phone] Code Status Date Activated Date Inactivated Comments Full Code 05/30/2017 10:08 PM 06/19/2017 7:55 PM This code status was determined by: Patient
--- OUTSIDE RECORDS SUMMARY | 2019-12-17 07:25 | XMS REPORT ---
:1935 Author Organization [facility] Address [address] [place] [address] Care Team Providers Name Role Phone Leonard Unavailable [phone] PROBLEMS Type Condition ICD9-CM MUA17-OR Onset Condition SNOMED Code Notes Code Code Dates Status Problem Atherosclerosis of I25.10 Active 7765417786372 03 coronary artery of [place] heart Problem Proteinuria, R80.9 Active 35721345 unspecified Problem Status post above Z89.619 Active 004105826 knee amputation Problem Gout M10.9 Active 48096843 Problem Renal failure N19 Active 32573318 Problem HTN (hypertension) I10 Active 22076694 Problem Hypomagnesemia E83.42 Active 438032484 Problem Thrombocytosis D47.3 Active 4210466 Problem Stented coronary Z95.5 Active 287136252 artery Problem CKD (chronic N18.3 Active 880146198 kidney disease) stage 3, GFR 30-59 ml/min Problem Type 2 diabetes E11.65 Active 78944913 mellitus with hyperglycemia Problem Diabetes mellitus E11.29 Active 990899374 with kidney disease Problem Hyperglycemic E11.65 Active 393123727 crisis in diabetes mellitus Problem Hyperlipidemia E78.5 Active 89609996 Problem Anemia, D64.9 Active 709632381 unspecified type Problem Painful urination R30.9 Active 22739277 Problem S/P PICC central Z95.828 Active 831309537 line placement Problem jail Z79.4 Active 847491933 (current) use of insulin ALLERGIES No Known Allergies ENCOUNTERS from 1935 to 2019-10-31 Encounter Location Date Provider Diagnosis Cele Capps [address], [facility] Leonard Type [address], mellitus w [facility] [address] hyperglycemia E11.65 ; Hyperglycemic c risis in diabetes mell us E11.65 ; Anemia , unspecified typ e D64.9 ; CKD (chronic kidney disease) stage 3, GFR 30-59 ml/min N1 8.3 ; HTN (hypertensi on) I10 ; Status post a afshin knee amputation Z89.619 ; Hyperlipidemi a E78.5 ; Tear of esoph jeny, subsequent enco unter S11.21XD ; Atherosclerosis of coronary artery of [place] heart I2 5.10 ; Gout M10.9 ; St ented coronary artery Z95.5 ; Proteinuria, unspecified R80 .9 ; Hypomagnesemia E83.42 and 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 No Points 0 Interpretation Negative Tobacco Use/Smoking Question Answer Notes Are you a former smoker Additional Findings: Tobacco Non-User Ex-moderate cigarette smoker (10-19/day) Tobacco use other than smoking: Question Answer Notes Are you an other tobacco user? No REASON FOR REFERRAL No Information VITAL SIGNS Height 70 in Oct, Weight 200.0 lbs Oct, Temperature 98.0 degrees Fahrenheit Oct, BMI 28.69 kg/m2 Oct, Oximetry 97 % Oct, Respiratory Rate 17 /min Oct, Blood pressure systolic 132 mm Hg Oct, Blood pressure diastolic 74 mm Hg Oct, MEDICATIONS Medication SIG (Take, Route, Start Date End Date Status Frequency, Duration) Atorvastatin Calcium 40 1 tablet Orally Once a Active MG day for 90 days Allopurinol 300 MG 1 tablet Orally Once a Active day for 90 days Atorvastatin Calcium 40 TAKE 1 TABLET BY MOUTH Not-Taking MG DAILY Orally Once a day Tamsulosin HCl 0.4 MG 1 capsule Orally Once a Active day for 90 days Tamsulosin HCl 0.4 MG 1 capsule Once a day Not-Taking Orally 90 days Orally Once a day for 90 days Vitamin B Complex - 1 tablet Orally once Active daily Carvedilol 12.5 MG Orally Active Lasix 40 MG 1 tablet Orally Once a Activ e day Aspirin 81 MG 1 tablet Orally Once a Acti ve day BD Ultra-Fine Milla Pen 1 needle with tresiba Active [place] 4mm x 32Gm subcutaneously once a day for 90 days Tresiba FlexTouch 200 inject 40 units Act elana UNIT/ML Subcutaneous QAM for 90 days Tresiba FlexTouch 200 inject 10 units in the Active UNIT/ML morning once daily Subcutaneous 30 days for 30 Magnesium Oxide 400 MG 1 tablet as needed Orally Active Once a day Benzonatate 200 MG 1 capsule Orally Three Oct, Nov, Active times a day for 10 days Potassium Chloride 20 1 tablet with food Orally Active MEQ Once a day for 30 day(s) Glimepiride 4 MG 1 tablet with breakfast Active or the first main meal of the day Orally Once a day for 90 days PROCEDURES No Information RESULTS No Results REASON FOR VISIT Follow up MEDICAL (GENERAL) HISTORY Type Description Date Medical History Atherosclerosis of coronary artery of na tive heart Medical History Stented coronary artery Medical History Diabetes mellitus with kidney disease Medical History Proteinuria, unspecified Medical History HTN (hypertension) Medical History Hyperlipidemia Medical History Status post above knee amputation Medical History Gout Medical History Hypomagnesemia Medical History Renal failure Medical History Thrombocytosis Surgical History Left knee [phone] Surgical History Pace maker 1997 Surgical History Vasectomy 1975 Surgical History Vasec 1983 Surgical History Left shoulder 2003 Surgical History Quad Bypass 2010 Surgical History Gallblader removed 2010 Surgical History Removed Rt leg 2014 Surgical History Pace maker replacement 2015 Goals Section No Information Health Concerns No Information MEDICAL EQUIPMENT No Information MENTAL STATUS No Information FUNCTIONAL STATUS No Information ASSESSMENTS Encounter Date Diagnosis Notes Oct, Hyperlipidemia (ICD-10 - E78.5) Oct, Status post above knee amputation (ICD-1 0 - Z89.619) Oct, Atherosclerosis of coronary artery of na tive heart (ICD-10 - I25.10) Oct, Tear of esophagus, subsequent encounter (ICD-10 - S11.21XD) Oct, Anemia, unspecified type (ICD-10 - D64.9 ) Oct, jail (current) use of insulin (ICD- 10 - Z79.4) Oct, Hypomagnesemia (ICD-10 - E83.42) Oct, HTN (hypertension) (ICD-10 - I10) Oct, CKD (chronic kidney disease) stage 3, GF R 30-59 ml/min (ICD-10 - N18.3) Oct, Stented coronary artery (ICD-10 - Z95.5) Oct, Gout (ICD-10 - M10.9) Oct, Hyperglycemic crisis in diabetes mellitu s (ICD-10 - E11.65) Oct, Type 2 diabetes mellitus with hyperglyce nirav (ICD-10 - E11.65) Oct, Proteinuria, unspecified (ICD-10 - R80.9 ) PLAN OF TREATMENT Medication Medication Name Sig Start Date Stop Date Carvedilol 12.5 MG Orally Benzonatate 200 MG 1 capsule Orally Three times Oct, Nov, a day for 10 days Lasix 40 MG 1 tablet Orally Once a day Aspirin 81 MG 1 tablet Orally Once a day Atorvastatin Calcium 40 MG 1 tablet Orally Once a day for 90 days Tresiba FlexTouch 200 UNIT/ML inject 40 units Subcutaneous QAM for 90 days Magnesium Oxide 400 MG 1 tablet as needed Orally Once a day Allopurinol 300 MG 1 tablet Orally Once a day for 90 days Glimepiride 4 MG 1 tablet with breakfast or the first main meal of the day Orally Once a day for 90 days Treatment Notes Assessment Notes Clinical Notes Type 2 diabetes mellitus with UNCONTROLLED. Continue Tresib a 40 hyperglycemia units QD and titrate as titrated. Instructed to REDUCE Amaryl 4 mg QD. Unable to take Metformin. Side effect panel dsicussed. Increased risk for falls but patient is wheelchair bound. Instructed to use 1/2 - 1 tab depending on BGT. Diabetes Education Diabetes is a disorder that disrupts the way your body uses glucose (sugar). It is a chronic medication condition that requires regular monitoring and treatment throughout your life. Treatment includes: lifestyle modification, self-care measures, and medication. Fortunately, these treatments can keep the blood sugar levels close to normal and minimize the risk of developing complications. The primary blood test to measure the progress of diabetes is the Hemoglobin A1c. Normal levels is less than 7.0 but less than 6.5 is considered excellent control. Fasting blood sugars should be in the range of 80-120 while random blood sugars should range below 200 especially after meals. Carbohydrate (sugar) intake for diabetics should be below 45 grams per meal and 15 grams per snack. Diabetic preventive care is vital to prevent complications, so it is important to have yearly diabetic eye and foot exams with specialists. If your diabetes is not controlled, then contact your doctor to further address.Medication may need to be adjusted and/or added.. Hyperglycemic crisis in diabetes Reviewed blood sugar log al reynaldo with mellitus medication compliance with patient. See attached documents. Currently on 26 units of Tresiba. Tolerating well. Fasting sugars went from 362---> 195. Asymptomatic. Reassurance given. Education given. Plan is to stop glimepiride as patient's blood sugars fasting are between 80 and 120. Anemia, unspecified type Iron Def Anemia vs. Chronic Loss vs. Aneami of Chronic Disease. CKD (chronic kidney disease) stage Managed by nephro. [facility]. 3, GFR 30-59 ml/min HTN (hypertension) COntrolled at home. HTN Education This is a condition that puts at risk for heart attack, stroke, and kidney disease. Lifestyle modification, low fat/low salt diet, exercise, low alcohol intake and medication is utilized to help control your BP. Untreated HTN increases the strain on the heart and arteries, eventually causing organ damage.Normal BP is less than 140/90. High BP is greater than 140/90. If your BP is not controlled, call your doctor. Medication may need to be adjusted and/or added. Compliance with medication is vital. If you have chest pain, shortness of breath, severe nausea/vomiting, fatigue, and other symptoms, you will need to contact your doctor or go to the ER immediately to address. Hyperlipidemia RESUME Lipitor. Hyperlipidemia Education: Hyperlipidemia refers to increased levels of lipids(fats) in the blood, including cholesterol and triglycerides. This can significantly increase your risk of developing coronary artery disease and peripheral artery disease. This can cause chest pain, heart attack, stroke, and fatigue. Treatment is recommended to decrease your risk. Treatment includes: lifestyle modification, low salt/low fat diet, exercise, tobacco cessation, low alcohol intake and sometimes medication. Blood tests (TC,TG, HDL, LDL) are utilized to determine treatment regimens. TC(Total cholesterol) should be below 200. TG(Total Triglycerides) should be below 150. HDL(Good cholesterol) should be above 40. LDL(Bad Cholesterol) should be below 130(if you have one risk factor) or less than 100( if you have more than one risk factor or have DM/CAD/PVD). Compliance with medication and treatment is vital. If you have questions, talk to your doctor. Tear of esophagus, subsequent ROR signed. Will refer to GI f or encounter further follow-up.?ANemia (Chronic Loss vs. CKD)DOES NOT WANT TO FOLLOW-UP WITH GI. Doing well. No further episodes. Gout Increased to 300 mg once daily.. Will monitor. Education given. Proteinuria, unspecified . Managed by nephrology Hypomagnesemia Continue current regimen. Treatment Notes Test Name Order Date Lipid Panel With LDL/HDL Ratio 2019-10-31 Microalbumin/Creat Ratio, Random Ur 2019-10-31 Hemoglobin A1c 2019-10-31 Magnesium, Serum 2019-10-31 Comp. Metabolic Panel (14) (CMP) 2019-10-31 Uric Acid, Serum 2019-10-31 CBC With Differential/Platelet 2019-10-31 Next Appt Details 3 Months + Labs 1 week before Reason: Provider Name:Rocco Valle, 2020-02-04 0 1:00:00 PM, [address], [place], [address], Provider Name:Rocco Leonard, 2020-02-12 0 1:00:00 PM, [address], [place], [address], Provider Name:Roccovishal Valle, 2020-02-12 0 1:00:00 PM, [address], [place], [address], Insurance Providers Payer Name Payer Address Payer Insured Patient Coverage Cover age Phone Name Relationship to Start Date End Date Insured [facility] [address] [phone] Taurus Burrows and [facility] [address] [facility] [address] MEDICARE Attn Part B [id number] Taurus Burrows NOV[employer] Claims [address] [place] [address]
--- OUTSIDE RECORDS SUMMARY | 2019-12-17 07:25 | XMS REPORT ---
:1935 Author Organization [facility] Address [address] [place], [address] [place] [address] Care Team Providers Name Role Phone Valle Unavailable [phone] PROBLEMS Type Condition ICD9-CM [id number] Onset Condition SNOMED Code Notes Code Code Dates Status Problem Atherosclerosis of I25.10 Active [id number] 03 coronary artery of [place] heart Problem Proteinuria, R80.9 Active 00729149 unspecified Problem Status post above Z89.619 Active 580136541 knee amputation Problem Gout M10.9 Active 44973669 Problem Renal failure N19 Active 31968925 Problem HTN (hypertension) I10 Active 38047118 Problem Hypomagnesemia E83.42 Active 184927226 Problem Thrombocytosis D47.3 Active 1509913 Problem Stented coronary Z95.5 Active 876641600 artery Problem CKD (chronic N18.3 Active 516459418 kidney disease) stage 3, GFR 30-59 ml/min Problem Type 2 diabetes E11.65 Active 15377138 mellitus with hyperglycemia Problem Diabetes mellitus E11.29 Active 485241154 with kidney disease Problem Hyperglycemic E11.65 Active 666232559 crisis in diabetes mellitus Problem Hyperlipidemia E78.5 Active 48148844 Problem Anemia, D64.9 Active 835665193 unspecified type Problem Painful urination R30.9 Active 96435752 Problem S/P PICC central Z95.828 Active 381552690 line placement Problem shelter Z79.4 Active 306517280 (current) use of insulin ALLERGIES No Known Allergies ENCOUNTERS from 1935 to 2019-11-21 Encounter Location Date Provider Diagnosis [facility] [address] [place] [facility] [address], [place] [id number] J20.9 and Acut e non-recurrent maxillary sinus itis J01.00 IMMUNIZATIONS No Information SOCIAL HISTORY Tobacco Use: [...] No Information VITAL SIGNS Height 70 in Nov, Weight 198 lbs Nov, Temperature 97.9 degrees Fahrenheit Nov, BMI 28.41 kg/m2 Nov, MEDICATIONS Medication SIG (Take, Route, Start Date End Date Status Frequency, Duration) Tamsulosin HCl 0.4 MG 1 capsule Orally Once a Active day for 90 days Magnesium Oxide 400 MG 1 tablet as needed Orally Active Once a day Tresiba FlexTouch 200 INJECT 10 UNITS Act elana UNIT/ML SUBCUTANEOUSLY ONCE DAILY EVERY MORNING Carvedilol 12.5 MG Orally Active Lasix 40 MG 1 tablet Orally Once a Activ e day Allopurinol 300 MG 1 tablet Orally Once a Active day for 90 days BD Ultra-Fine Milla Pen 1 needle with tresiba Active Paxton 4mm x 32Gm subcutaneously once a day for 90 days Tamsulosin HCl 0.4 MG 1 capsule Once a day Not-Taking Orally 90 days Orally Once a day for 90 days Aspirin 81 MG 1 tablet Orally Once a Acti ve day Azithromycin 500 MG 1 tablet Orally Once a Nov,Nov, 0 Active day for 5 day(s) Benzonatate 200 MG 1 capsule Orally Three Oct, Nov, Active times a day for 10 days Potassium Chloride 20 1 tablet with food Orally Active MEQ Once a day for 30 day(s) Glimepiride 4 MG 1 tablet with breakfast Active or the first main meal of the day Orally Once a day for 90 days Atorvastatin Calcium 40 TAKE 1 TABLET BY MOUTH Active MG DAILY Orally Once a day Vitamin B Complex - 1 tablet Orally once Active daily PROCEDURES No Information RESULTS No Results REASON FOR VISIT Cough MEDICAL (GENERAL) HISTORY Type Description Date Medical History Atherosclerosis of coronary artery of na tive heart Medical History Stented coronary artery Medical History Diabetes mellitus with kidney disease Medical History Proteinuria, unspecified Medical History HTN (hypertension) Medical History Hyperlipidemia Medical History Status post above knee amputation Medical History Gout Medical History Hypomagnesemia Medical History Renal failure Medical History Thrombocytosis Surgical History Left knee [id number] Surgical History Pace maker 1998 Surgical History Vasectomy 1976 Surgical History Vasec 1983 Surgical History Left shoulder 2003 Surgical History Quad Bypass 2010 Surgical History Gallblader removed 2010 Surgical History Removed Rt leg 2014 Surgical History Pace maker replacement 2014 Goals Section No Information Health Concerns No Information MEDICAL EQUIPMENT No Information MENTAL STATUS No Information FUNCTIONAL STATUS No Information ASSESSMENTS Encounter Date Diagnosis Notes Nov, Acute non-recurrent maxillary sinusitis (ICD-10 - J01.00) Nov, Acute bronchitis, unspecified organism ( ICD-10 - J20.9) PLAN OF TREATMENT Medication Medication Name Sig Start Date Stop Date Azithromycin 500 MG 1 tablet Orally Once a day for 5 day(s) 2019Nov, Treatment Notes Assessment Notes Clinical Notes Acute bronchitis, unspecified Discussed supportive measures for organism symptoms releif. Declined steriods due to elevated BGT. Acute non-recurrent maxillary With the duration and severity of sinusitis symptoms/PE, will treat with Zithromax x 5 days. Side effect discussed with patient. In addition, discussed supportive measures and home remedies for symptomatic relief. Increase hydration. Advised on signs/symptoms to monitor. If able to take, OK to use OTC Tylenol and/or NSAIDs for pain and fever, temporarily. It is important to rest and take your medication as recommended by the doctor. You should clean your hands frequently. You should remain indoors and cover your mouth when coughing. If necessary you may have to wear a mask to keep from infecting others. You should also change your toothbrush within 24-48 hours of starting any antibiotics. Salt water gargles three times a day is recommended for pharyngeal irritation and congestion. Nasal saline sprays three times a day to the nostrils may help with the nasal congestion. You may also take Mucinex OTC for chest congestion. If the symptoms persists or worsen after 24-48 hours especially if taking medication, then you are to call back for reevaluation or go to the ER. Next Appt Details prn Reason: Provider Name:Rocco Valle 2020-02-04 0 1:00:00 PM, [address], [address], [place], [address], Provider Name:Rocco Valle, 2020-02-12 0 1:00:00 PM, [address], [place], [address], Provider Name:Rocco Valle, 2020-02-12 0 1:00:00 PM, [address], [place], [address], Insurance Providers Payer Name Payer Address Payer Insured Patient Coverage Cover age Phone Name Relationship to Start Date End Date Insured [facility] [address] [phone] Taurus Burrows and [facility] [address] [facility] [address] MEDICARE Attn Part B [id number] Taurus Burrows [employer] Claims [address] [facility] [id number]
--- OUTSIDE RECORDS SUMMARY | 2019-12-17 07:25 | XMS REPORT | Continuity of Care Document ---
:1935 Author Organization [facility] t Address [address] [place] [address] Care Team Providers Name Role Phone Asked, Pcp Primary Care Physician Unavailable SHARIFA HART Attending Clinician Unavailable SHARIFA HART Admitting Clinician Unavailable Problems Condition Condition Condition Status Onset Resolution Last Treating Co mments Source Name Details Category Date Date Treatment Clinician Date Disorienta Disorienta Disease Active [facility] Medical 00 Tom Bean A-fib A-fib Disease Active [facility] Medical 00 Tom Bean Hypertensi Hypertensi Disease Active [facility] on on 05-31 [facility] Medical 00 Tom Bean Hypernatre Hypernatre Disease Active [facility] nirav nirav 05-31 [facility] - [facility]: Medical Tom Bean Acute Acute Disease Active [facility] blood loss blood loss 05-31 [facility] - anemia anemia 00:00: Medical 00 Tom Bean 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 00:00: Medica l with with 00 Center complicati complicati on, on, without without long-term long-term current current use of use of insulin insulin Leukocytos Leukocytos Disease Active [facility] is is 05-31 [facility] - 00:[facility]: Medical 00 Tom Bean Agitation Agitation Disease Active [facility] 25 [facility] 00:[facility] Medical 00 Tom Bean Acute Acute Disease Active [facility] encephalop encephalop 4-25 [facility] - athy athy 00:00: Medical 00 Tom Bean Acute Acute Disease Active [facility] kidney kidney 4-25 [facility] - injury injury 00:00: Medical 00 Tom Bean GIB GIB Disease Active [facility] (gastroint (gastroint 4-24 [place] - estinal estinal 00:00: Medical bleeding) bleeding) 00 Cent er Cough Cough Disease Active [place] 3[facility]23 [facility] 00[facility]: st 00 Rash Rash Disease Active 2015-02 [place] 229 [facility]i 00:00: st 00 Hypertensi Hypertensi Disease Active 2015-02 [place] Methodi 00:[facility]: st 00 Ischemia Ischemia Disease Active 2015-02 [place] of toe of toe Methodi 00:00: st 00 Lumbosacra Lumbosacra Disease Active 2015-02 [place] l [facility] radiculiti radiculiti 00:00: st s s 00 Open wound Open wound Disease Active 2015-02 [place] [facility]i 00[facility]: st 00 Peripheral Peripheral Disease Active 2015-02 [place] nerve nerve 2-29 [facility] disease disease 00:00: st 00 Seizure Seizure Disease Active 2015-02 [place] disorder disorder 2-29 Method i 00:00: st 00 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 0-12 [place] thodi artery artery 00:00: st 00 Chronic Chronic Disease Active 2015-02 [place] ischemic ischemic 0-12 Method i heart heart 00:00: st disease disease 00 Chronic Chronic Disease Active 2015-02 [place] kidney kidney 0-12 [facility] disease, disease, 00:00: st stage III stage III 00 (moderate) (moderate) Delayed Delayed Disease Active 2015-02 [place] surgical surgical 0-12 [facility] i wound wound 00:00: st healing healing 00 Edema of Edema of Disease Active 2015-02 [place] lower lower 0-12 [facility] extremity extremity 00:00: st 00 Vertigo Vertigo Disease Active 2015-02 [place] 0-12 [facility] 00:00: st 00 Knee pain Knee pain Disease Active 2015-02 [facility] ston 0-12 [facility]i 00:00: st 00 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 0-12 Method i 00:00: st 00 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 0-12 [facility] syndrome syndrome 00:00: st with pain with pain 00 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 [facility] thrombosis thrombosis 00:00: st 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 Dizziness Dizziness Disease Active [facility] ston and and 08-21 [facility] giddiness giddiness 00:00: st 00 Back pain Back pain Disease Active Keith ston 7-05 Methodi 00:00: st 00 Peripheral Peripheral Disease Active Overview : [place] vascular vascular 5-15 S/P Method i disease disease 00:00: stents st 00 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 CABG [facility] erosis erosis 00:00: x 3 st Gout Gout Disease Active [place] 2-20 [facility] 00:00: st 00 Chronic Chronic Disease Active [place] coronary coronary 1 Method i artery artery 00:00: st disease disease 00 Peripheral Peripheral Disease Active jer[place] arterial arterial 1 Method i occlusive occlusive 00:00: st disease disease 00 Diabetes Diabetes Disease Active [place] mellitus mellitus 06-07 Method i 00:00: st 00 Essential Essential Disease Active Keith rodriguezn hypertensi hypertensi - Me [place] on on 00:00: st 00 Multiple-t Multiple-t Disease Active jeromy ype ype 06-07 [facility] hyperlipid hyperlipid 00:00: st emia emia 00 Pneumonia Pneumonia Disease Active Keith ston 5-02 Methodi 00:00: st 00 Allergies, Adverse Reactions, Alerts This patient has no known allergies or adverse reactions. Family History Family Member Diagnosis Comments Start Date Stop Date Source Natural brother Thyroid cancer [place] [facility] Natural father Coronary artery [place] [facility] disease Natural mother Coronary artery [place] [facility] disease Other Diabetes [place] Method ist Other Heart disease [place] Met hodist Other Hypertension [place] Meth odist Social History Social Habit Start Date Stop Date Quantity Comments Source History of Cigarette Smoker [place] [facility] tobacco use Sex Assigned [facility] Tobacco use and 2017-05-31 2017-05-[address] [facility] [address] [place]es - exposure 00:00:00 [facility]:00 [facility] Alcohol intake 2017-05-31 2017-05-31 Current drinker ABHISHEK Morrison - 00:00:00 00:00:00 of alcohol Medical Center (finding) Alcohol Comment 2015-11-18 2015-11-18 moderate- 2 [place] [facility]ist 00:00:00 00:00:00 drinks weekly Smoking Status Start Date Stop Date Source Never smoker ABHISHEK Linda Lugabby - M [facility] Former smoker 2016-02-04 00:00:00 2016-02-04 00:00:00 [facility] Medications Ordered Filled Start Stop Current Ordering Indication Dosage Frequency Signature Comments Components Source Medication Medication Date Date Medication? Clinician (SIG) Name Name magnesium Yes 400mg Q.5D Take [address] oxide 400 5-14 mg by [facility] - mg Cap 17:55: mouth 2 Medical 47 (two) Center times daily. allopurinol Yes 100mg QD Take [address] (ZYLOPRIM) 5-14 mg by [facility] - 100 MG 17:55: mouth Medical tablet 47 daily. Tom Bean pantoprazol Yes 40mg Q.5D Take [address] [facility] e 5-14 tablet (40 [facility] - (PROTONIX) 00:00: mg total) Me dical 40 MG 00 by mouth 2 Center tablet (two) times daily. folic acid Yes 1mg QD Take [address] (FOLVITE) 1 4-05 by mouth Luke s - MG tablet 00:00: daily. Medica l 00 Tom Bean metFORMIN Yes TAKE BY [place] [facility] (GLUCOPHAGE 3-26 MOUTH 1/2 Met hodi ) 500 mg 17:06: TABLET 2 st tablet 20 TIMES A DAY allopurinol Yes 100mg QD Take 100 [place] (ZYLOPRIM) 3-26 mg by Methodi 100 MG 17:06: mouth st tablet 20 daily. folic acid Yes 1mg QD Take 1 mg [place] (FOLVITE) 1 3-26 by mouth Meth chioma MG tablet 17:06: daily. st 20 furosemide 2017-0 Yes 40mg Q.5D Take 40 mg [place] (LASIX) 40 3-26 by mouth 2 Met hodi mg tablet 17:06: (two) st 20 times a day. lisinopril Yes 20mg QD Take 2 [place] (PRINIVIL,Z 3-26 tablets Metho di ESTRIL) 10 00:00: ([address] mg tablet 00 total) by mouth nightly for 30 days. atorvastati Yes 40mg QD Take [address] n (LIPITOR) 3-26 by mouth Luke s - 40 MG 00:00: nightly. Medical tablet 00 Center furosemide Yes 40mg Take [address] (LASIX) 40 3-20 by mouth 2 [facility] - MG tablet 00:00: (two) Medical 00 times Center daily. glimepiride 2015-02 Yes 2mg QD Take 2 mg [place] (AMARYL) 2 2-03 by mouth Metho di MG tablet 00:00: once st 00 daily. Tresiba Tresiba Yes Abbi inject [address] FlexTouch FlexTouch [place] units [facility] Atorvastati Atorvastati Yes Abbi TAKE [address] [facility] [facility] n Calcium n Calcium [place] TABLET BY [facility] - MOUTH Memoria DAILY l Outpati ent Clinics Allopurinol Allopurinol Yes Abbi [address] [facility] [place] [facility] Glimepiride Glimepiride Yes Abbi [address] [facility] [place] with [facility]ukes - breakfast Memoria or the l first main Outpati meal of ent the day Clinics Potassium Potassium Yes Abbi [address] [address] Chloride Chloride [place] with food L [facility]kes - [facility] Clinics Lasix Lasix Yes Abbi [address] [facility] [place] [facility] Tamsulosin Tamsulosin Yes Abbi [address] HCl HCl [place] [facility] Tamsulosin Tamsulosin Yes Abbi [address] HCl HCl [place] Once a day [facility] - Orally 90 Memoria days l Outpati ent Clinics BD BD Yes Abbi [address] [facility] Ultra-Fine Ultra-Fine [place] with [place] kes - Milla Pen Milla Pen tresiba [facility] [place] [facility] [facility] ent Clinics Carvedilol Carvedilol Yes Abbi not [facility] [place] defined [facility] Aspirin Aspirin Yes Abbi [address] [facility] [place] [facility] Magnesium Magnesium Yes Abbi [address] [facility] Oxide Oxide [place] as needed [facility] Vitamin B Vitamin B Yes Abbi [address] [facility] Complex Complex [place] [facility] Immunizations Ordered Immunization Filled Immunization Date Status Commen ts Source Name Name Pneumococcal 2010-06-21 Completed [place] Polysaccharide 00:00:00 Taoist Influenza Trivalent 2008-12-25 Completed [place] 00:00:00 [facility] Influenza Trivalent 2007-12-12 Completed [place] 00:00:00 [facility] Procedures This patient has no known procedures. Plan of Care Planned Activity Planned Date Details Comments Source Future Scheduled 2019-10-[address] [facility] - Test 00:00:00 (#1) [code = Medical Center INFLUENZA VACCINE (#1)] Future Scheduled 2019-09-07 INFLUENZA VACCINE [place] [facility] Test 00:00:00 [code = INFLUENZA VACCINE] Future Scheduled 2017-12-[address] [facility] kes - Test 00:00:00 [facility] Center (procedure) [code = 44007599] Future Scheduled 2003-03-[address] L [facility] - Test 00:00:00 WELLNESS (YEAR 2 or Medical Center FIRST YEAR if no IPPE) [code = MEDICARE ANNUAL WELLNESS (YEAR 2 or FIRST YEAR if no IPPE)] Future Scheduled 1987 SHINGLES VACCINES [place] [facility] Test 00:00:00 (#1) [code = SHINGLES VACCINES (#1)] Future Scheduled 1947 DIABETES: RETINAL EYE [place] [facility] Test 00:00:00 EXAM [code = DIABETES: RETINAL EYE EXAM] Future Scheduled 1947 DIABETIC FOOT EXAM [place] [facility] Test 00:00:00 [code = DIABETIC FOOT EXAM] Future Scheduled 1947 DIABETIC EYE EXAM [facility] Test 00:00:00 [code = DIABETIC EYE Medical Center EXAM] Future Scheduled [address] [facility] - Test 00:00:00 examination Medical Center (regime/therapy) [code = 361938113] Future Scheduled 1947 Urine screening for [facility] Test 00:00:00 protein (procedure) Medical Center [code = 605937141] Encounters Start End Encounter Admission Attending Care Care Encounter Source Date/Time Date/Time Type Type Clinicians Facility Department ID 2019-11-27 2019-11-27 [facility] [id number] 2019-11-20 2019-11-20 [facility] [id number] 2019-11-13 2019-11-13 [facility] [id number] [facility] 2019-10-30 2019-10-30 [facility] [id number] [facility] 2019-08-13 2019-08-13 [facility] [id number] 13:20:00 13:20:[address] [facility] Medicine l Medicine Outpati ent Clinics 2019-08-12 2019-08-12 [facility] [id number] 12:03:00 12:03:00 t kenxus s - Palmer Hargreaves [facility] Family Medicine l Medicine Outpati ent Clinics 2019-07-23 2019-07-23 [facility] [id number] 14:15:00 14:15:00 t kenxus s - Palmer Hargreaves [facility] Family Medicine l Medicine Outpati ent Clinics 2019-07-17 2019-07-17 [facility] [id number] 11:45:00 11:45:00 t kenxus s [facility] Family Medicine l Medicine Outpati ent Clinics 2019-07-15 2019-07-15 [facility] [id number] 14:26:00 14:26:[address] [facility] Medicine l Medicine Outpati ent Clinics 2019-05-20 2019-05-20 [facility] [id number] 11:56:00 11:56:00 t kenxus s [facility] Medicine l Medicine Outpati ent Clinics 2019-05-17 2019-05-17 [facility] [id number] 15:48:00 15:48:00 t Redmond Cloak s - Drive [facility] Medicine Outpati ent Clinics 2019-02-27 2019-02-27 [facility] [id number] [facility] 13:15:00 13:15:00 t Redmond Cloak s - Drive [facility] Medicine Outpati ent Clinics 2018-12-26 2018-12-26 [facility] [id number] 15:45:00 15:45:00 t Redmond Redmond WonderHow[employer] s - Drive [facility] l Medicine Outpati ent Clinics 2018-11-28 2018-11-28 [facility] [id number] 15:00:00 15:00:00 t Redmond Cloak s - Palmer Hargreaves [facility] Medicine Outpati ent Clinics 2018-10-17 2018-10-17 [facility] [id number] 15:38:00 15:38:00 t Redmond Cloak s - Drive [facility] Medicine Outpati ent Clinics 2018-10-17 2018-10-17 [facility] [id number] 15:15:00 15:15:00 t Redmond Cloak s - Drive [facility] Medicine Outpati ent Clinics 2018-10-02 2018-10-02 [facility] [id number] 11:25:00 11:25:00 t Redmond Cloak s - Drive [facility] Medicine Outpati ent Clinics 2018-08-08 2018-08-08 [facility] [id number] 10:25:00 10:25:00 t Specialty/U [place] [facility] - Specialty rology Memori a /Urology Clinic l Clinic Outpati ent Clinics 2018-06-11 2018-06-11 [facility] [id number] 11:57:00 11:57:00 t Specialty/U [place] [facility] - Specialty rology Memori a /Urology Clinic l Clinic Outpati ent Clinics 2018-05-14 2018-05-14 [facility] [id number] 10:30:00 10:30:00 [facility] Medicine Outpati ent Clinics Results Test Description Test Time Test Comments Results Result Sourc e Comments U/S, ABDOMINAL, 2017-06-29 Abdomen limited Addendum LIMITED 05:54:00 area? Add comment BeginsREPORT if clarification is STATUS:A PATIENT needed.->LiverReaso ID: [id number] n for exam:->r/o Indication: Right cirrhosis upper quadrant pain. Signed: Marci Levine MDReport Verified Date/Time: 06/29/2017 05:54:07 Reading Location: [facility] C013Y CT Body Reading RoomAddendum EndsFINAL REPORT [...] the right kidney is unremarkable without obvious hydronephrosis.Visu alized portions of the IVC and aorta are unremarkable. IMPRESSION: No sonographic evidence of cirrhosis. Signed: Marci Levine MDReport Verified Date/Time: 06/04/2017 06:44:53 Reading Location: [facility] B1 C013X Ortho Consult Reading Room -GLUCOSE METER 2017-06-19 16:56:00 Test Item Value Reference Range Interpretation Comme nts POC-GLUCOSE METER ([email or web address]) (test 202 mg/dL 70-[address] [facility] [address] [facility] code = 1538) [facility] 7703 0 POCT-GLUCOSE [id number] 12:23:00 Test Item Value Reference Range Interpretation Comments POC-GLUCOSE METER 223 mg/dL 70-[address] [facility] 67[address] ([email or web address]) (test code = MIKY Marte [facility] 1538) [id number] POCT-GLUCOSE [id number] 08:07:00 Test Item Value Reference Range Interpretation Comments POC-GLUCOSE METER 122 mg/dL 70-[address] [facility] 67[address] ([email or web address]) (test code = MIKY [place] 1538) [id number] 07:19:00 Test Item Value Reference Range Interpretation Comments MAGNESIUM (BEAKER) (test code = 1.4 mg/dL 1.6-2.6 L 627) [id number] 07:19:00 Test Item Value Reference Range Interpretation Comments PHOSPHORUS (BEAKER) (test code = 2.7 mg/dL 2.3-4.7 604) COMPREHENSIVE METABOLIC [id number] 07:18:00 Test Item Value Reference Range Interpretation Comments TOTAL PROTEIN 6.7 gm/dL 6.0-8.3 (BEAKER) (test code = 770) ALBUMIN (BEAKER) 3.3 g/dL 3.5-5.0 L (test code = 1145) ALKALINE PHOSPHATASE 64 U/L 40-150 (BEAKER) (test code = 346) BILIRUBIN TOTAL 0.5 mg/dL 0.2-1.2 (BEAKER) (test code = 377) SODIUM (BEAKER) (test 141 meq/L 136-145 code = 381) POTASSIUM (BEAKER) 3.3 meq/L 3.5-5.1 L (test code = 379) CHLORIDE (BEAKER) 106 meq/L 98-107 (test code = 382) CO2 (BEAKER) (test 24 meq/L 22-29 code = 355) BLOOD UREA NITROGEN 16 mg/dL 7-21 (BEAKER) (test code = 354) CREATININE (BEAKER) 1.18 mg/dL 0.57-1.25 (test code = 358) GLUCOSE RANDOM 118 mg/dL 70-105 H (BEAKER) (test code = 652) CALCIUM (BEAKER) 8.9 mg/dL 8.4-10.2 (test code = 697) AST (SGOT) (BEAKER) 15 U/L 5-34 (test code = 353) ALT (SGPT) (BEAKER) 12 U/L 6-55 (test code = 347) EGFR (BEAKER) (test 59 mL/min/1.73 ESTIMA JOEL GFR IS code = 1092) sq m NOT ACCURATE CREATININE CLEARANCE IN PREDICTING GLOMERULAR FILTRATION RATE . ESTIMATED GFR I S NOT APPLICABLE FOR DIALYSIS PATIEN TS. CBC W/PLT COUNT & AUTO [id number] 00:06:00 Test Item Value Reference Range Interpretation Comments WHITE BLOOD CELL COUNT (BEAKER) 6.8 K/ L 3.5-10.5 (test code = 775) RED BLOOD CELL COUNT (BEAKER) 2.68 M/ L 4.63-6.08 L (test code = 761) HEMOGLOBIN (BEAKER) (test code = 7.8 GM/DL 13.7-17.5 L 410) HEMATOCRIT (BEAKER) (test code = 24.9 % 40.1-51.0 L 411) MEAN CORPUSCULAR VOLUME (BEAKER) 92.9 fL 79.0-92.2 H (test code = 753) MEAN CORPUSCULAR HEMOGLOBIN 29.1 pg 25.7-32.2 (BEAKER) (test code = 751) MEAN CORPUSCULAR HEMOGLOBIN CONC 31.3 GM/DL 32.3-36.5 L (BEAKER) (test code = 752) RED CELL DISTRIBUTION WIDTH 16.9 % 11.6-14.4 H (BEAKER) (test code = 412) PLATELET COUNT (BEAKER) (test 306 K/CU MM 150-450 code = 756) MEAN PLATELET VOLUME (BEAKER) 9.3 fL 9.4-12.4 L (test code = 754) NUCLEATED RED BLOOD CELLS 0 /100 WBC 0-0 (BEAKER) (test code = 413) NEUTROPHILS RELATIVE PERCENT 47 % (BEAKER) (test code = 429) LYMPHOCYTES RELATIVE PERCENT 34 % (BEAKER) (test code = 430) MONOCYTES RELATIVE PERCENT 11 % (BEAKER) (test code = 431) EOSINOPHILS RELATIVE PERCENT 6 % (BEAKER) (test code = 432) BASOPHILS RELATIVE PERCENT 1 % (BEAKER) (test code = 437) NEUTROPHILS ABSOLUTE COUNT 3.17 K/ L 1.78-5.38 (BEAKER) (test code = 670) LYMPHOCYTES ABSOLUTE COUNT 2.28 K/ L 1.32-3.57 (BEAKER) (test code = 414) MONOCYTES ABSOLUTE COUNT (BEAKER) 0.77 K/ L 0.30-0.82 (test code = 415) EOSINOPHILS ABSOLUTE COUNT 0.43 K/ L 0.04-0.54 (BEAKER) (test code = 416) BASOPHILS ABSOLUTE COUNT (BEAKER) 0.06 K/ L 0.01-0.08 (test code = 417) IMMATURE GRANULOCYTES-RELATIVE 1 % 0-1 PERCENT (BEAKER) (test code = 2801) POCT-GLUCOSE [id number] 20:29:00 Test Item Value Reference Range Interpretation Comments POC-GLUCOSE METER 126 mg/dL 70-[address] [facility] [address] ([facility]) (test code = [facility] 1538) [id number] POCT-GLUCOSE [id number] 17:46:00 Test Item Value Reference Range Interpretation Comments POC-GLUCOSE METER 98 mg/dL 70-110 TESTED AT [place] [address] ([facility]) (test code = [facility] [address] 1538) POCT-GLUCOSE [id number] 13:26:00 Test Item Value Reference Range Interpretation Comments POC-GLUCOSE METER 118 mg/dL 70-110 H TESTED AT [place] [address] ([facility]) (test code = [facility] 1538) [id number] POCT-GLUCOSE [id number] 08:28:00 Test Item Value Reference Range Interpretation Comments POC-GLUCOSE METER 137 mg/dL 70-110 H TESTED AT [place] [address] ([facility]) (test code = [facility] 1538) [id number] 05:31:00 Test Item Value Reference Range Interpretation Comments PHOSPHORUS (BEAKER) (test code = 3.1 mg/dL 2.3-4.7 604) [id number] 05:31:00 Test Item Value Reference Range Interpretation Comments MAGNESIUM (BEAKER) (test code = 1.3 mg/dL 1.6-2.6 L 627) BASIC METABOLIC [id number] 05:31:00 Test Item Value Reference Range Interpretation Comments SODIUM (BEAKER) 137 meq/L 136-145 (test code = 381) POTASSIUM (BEAKER) 3.0 meq/L 3.5-5.1 L (test code = 379) CHLORIDE (BEAKER) 103 meq/L 98-107 (test code = 382) CO2 (BEAKER) (test 23 meq/L 22-29 code = 355) BLOOD UREA NITROGEN 15 mg/dL 7-21 (BEAKER) (test code = 354) CREATININE (BEAKER) 1.22 mg/dL 0.57-1.25 (test code = 358) GLUCOSE RANDOM 116 mg/dL 70-105 H (BEAKER) (test code = 652) CALCIUM (BEAKER) 8.4 mg/dL 8.4-10.2 (test code = 697) EGFR (BEAKER) (test 57 mL/min/1.73 ESTIMA JOEL GFR IS code = 1092) sq m NOT ACCURATE CREATININE CLEARANCE IN PREDICTING GLOMERULAR FILTRATION RATE . ESTIMATED GFR I S NOT APPLICABLE FOR DIALYSIS PATIEN TS. CBC W/PLT COUNT & AUTO [id number] 05:13:00 Test Item Value Reference Range Interpretation Comments WHITE BLOOD CELL COUNT (BEAKER) 7.2 K/ L 3.5-10.5 (test code = 775) RED BLOOD CELL COUNT (BEAKER) 2.62 M/ L 4.63-6.08 L (test code = 761) HEMOGLOBIN (BEAKER) (test code = 7.5 GM/DL 13.7-17.5 L 410) HEMATOCRIT (BEAKER) (test code = 24.2 % 40.1-51.0 L 411) MEAN CORPUSCULAR VOLUME (BEAKER) 92.4 fL 79.0-92.2 H (test code = 753) MEAN CORPUSCULAR HEMOGLOBIN 28.6 pg 25.7-32.2 (BEAKER) (test code = 751) MEAN CORPUSCULAR HEMOGLOBIN CONC 31.0 GM/DL 32.3-36.5 L (BEAKER) (test code = 752) RED CELL DISTRIBUTION WIDTH 17.0 % 11.6-14.4 H (BEAKER) (test code = 412) PLATELET COUNT (BEAKER) (test 291 K/CU MM 150-450 code = 756) MEAN PLATELET VOLUME (BEAKER) 9.4 fL 9.4-12.4 (test code = 754) NUCLEATED RED BLOOD CELLS 0 /100 WBC 0-0 (BEAKER) (test code = 413) NEUTROPHILS RELATIVE PERCENT 48 % (BEAKER) (test code = 429) LYMPHOCYTES RELATIVE PERCENT 30 % (BEAKER) (test code = 430) MONOCYTES RELATIVE PERCENT 13 % (BEAKER) (test code = 431) EOSINOPHILS RELATIVE PERCENT 7 % (BEAKER) (test code = 432) BASOPHILS RELATIVE PERCENT 1 % (BEAKER) (test code = 437) NEUTROPHILS ABSOLUTE COUNT 3.49 K/ L 1.78-5.38 (BEAKER) (test code = 670) LYMPHOCYTES ABSOLUTE COUNT 2.19 K/ L 1.32-3.57 (AKER) (test code = 414) MONOCYTES ABSOLUTE COUNT (AKER) 0.91 K/ L 0.30-0.82 H (test code = 415) EOSINOPHILS ABSOLUTE COUNT 0.52 K/ L 0.04-0.54 (AKER) (test code = 416) BASOPHILS ABSOLUTE COUNT ([facility]) 0.07 K/ L 0.01-0.08 (test code = 417) IMMATURE GRANULOCYTES-RELATIVE 1 % 0-1 PERCENT ([facility]) (test code = 2801) POCT-GLUCOSE [id number] 21:05:00 Test Item Value Reference Range Interpretation Comments POC-GLUCOSE METER 199 mg/dL 70-110 H TESTED AT [place] [address] ([facility]) (test code = [facility] [place] [facility] 1538) [id number] POCT-GLUCOSE [id number] 18:55:00 Test Item Value Reference Range Interpretation Comments POC-GLUCOSE METER 128 mg/dL 70-110 H TESTED AT [place] [address] ([facility]) (test code = [facility] 1538) [id number] POCT-GLUCOSE [id number] 11:34:00 Test Item Value Reference Range Interpretation Comments POC-GLUCOSE METER 144 mg/dL 70-110 H TESTED AT [place] [address] ([facility]) (test code = [facility] 1538) [id number] POCT-GLUCOSE [id number] 07:58:00 Test Item Value Reference Range Interpretation Comments POC-GLUCOSE METER 93 mg/dL 70-110 TESTED AT [place] [address] ([facility]) (test code = [facility] [address] 1538) [id number] 05:23:00 Test Item Value Reference Range Interpretation Comments PHOSPHORUS (BEAKER) (test code = 2.9 mg/dL 2.3-4.7 604) [id number] 05:23:00 Test Item Value Reference Range Interpretation Comments MAGNESIUM ([facility]) (test code = 1.6 mg/dL 1.6-2.6 627) CBC W/PLT COUNT & AUTO [id number] 05:03:00 Test Item Value Reference Range Interpretation Comments WHITE BLOOD CELL COUNT ([facility]) 7.0 K/ L 3.5-10.5 (test code = 775) RED BLOOD CELL COUNT (BEAKER) 2.87 M/ L 4.63-6.08 L (test code = 761) HEMOGLOBIN (BEAKER) (test code = 8.4 GM/DL 13.7-17.5 L 410) HEMATOCRIT (BEAKER) (test code = 26.3 % 40.1-51.0 L 411) MEAN CORPUSCULAR VOLUME (BEAKER) 91.6 fL 79.0-92.2 (test code = 753) MEAN CORPUSCULAR HEMOGLOBIN 29.3 pg 25.7-32.2 (BEAKER) (test code = 751) MEAN CORPUSCULAR HEMOGLOBIN CONC 31.9 GM/DL 32.3-36.5 L (BEAKER) (test code = 752) RED CELL DISTRIBUTION WIDTH 16.7 % 11.6-14.4 H (BEAKER) (test code = 412) PLATELET COUNT (BEAKER) (test 323 K/CU MM 150-450 code = 756) MEAN PLATELET VOLUME (BEAKER) 9.6 fL 9.4-12.4 (test code = 754) NUCLEATED RED BLOOD CELLS 0 /100 WBC 0-0 (BEAKER) (test code = 413) NEUTROPHILS RELATIVE PERCENT 48 % (BEAKER) (test code = 429) LYMPHOCYTES RELATIVE PERCENT 32 % (BEAKER) (test code = 430) MONOCYTES RELATIVE PERCENT 12 % (BEAKER) (test code = 431) EOSINOPHILS RELATIVE PERCENT 7 % (BEAKER) (test code = 432) BASOPHILS RELATIVE PERCENT 1 % (BEAKER) (test code = 437) NEUTROPHILS ABSOLUTE COUNT 3.38 K/ L 1.78-5.38 (BEAKER) (test code = 670) LYMPHOCYTES ABSOLUTE COUNT 2.23 K/ L 1.32-3.57 (BEAKER) (test code = 414) MONOCYTES ABSOLUTE COUNT (BEAKER) 0.86 K/ L 0.30-0.82 H (test code = 415) EOSINOPHILS ABSOLUTE COUNT 0.48 K/ L 0.04-0.54 (BEAKER) (test code = 416) BASOPHILS ABSOLUTE COUNT (BEAKER) 0.06 K/ L 0.01-0.08 (test code = 417) IMMATURE GRANULOCYTES-RELATIVE 0 % 0-1 PERCENT (BEAKER) (test code = 2801) POCT-GLUCOSE [id number] 22:10:00 Test Item Value Reference Range Interpretation Comments POC-GLUCOSE METER 100 mg/dL 70-[address] [facility] 6720 (BEAKER) (test code = [facility] 1538) [id number] POCT-GLUCOSE [id number] 20:51:00 Test Item Value Reference Range Interpretation Comments POC-GLUCOSE METER 195 mg/dL 70-110 H TESTED AT [place] [address] ([facility]) (test code = [facility] 1538) [id number] POCT-GLUCOSE [id number] 12:49:00 Test Item Value Reference Range Interpretation Comments POC-GLUCOSE METER 183 mg/dL 70-110 H TESTED AT [place] [address] ([facility]) (test code = [facility] 1538) [id number] POCT-GLUCOSE [id number] 08:20:00 Test Item Value Reference Range Interpretation Comments POC-GLUCOSE METER 95 mg/dL 70-110 TESTED AT [place] [address] ([facility]) (test code = [facility] [id number] 1538) [id number] 07:00:00 Test Item Value Reference Range Interpretation Comments MAGNESIUM (BEAKER) (test code = 1.0 mg/dL 1.6-2.6 LL 627) [id number] 06:56:00 Test Item Value Reference Range Interpretation Comments PHOSPHORUS (BEAKER) (test code = 2.8 mg/dL 2.3-4.7 604) BASIC METABOLIC [id number] 06:56:00 Test Item Value Reference Range Interpretation Comments SODIUM (BEAKER) 137 meq/L 136-145 (test code = 381) POTASSIUM (BEAKER) 3.6 meq/L 3.5-5.1 (test code = 379) CHLORIDE (BEAKER) 104 meq/L 98-107 (test code = 382) CO2 (BEAKER) (test 24 meq/L 22-29 code = 355) BLOOD UREA NITROGEN 12 mg/dL 7-21 (BEAKER) (test code = 354) CREATININE (BEAKER) 0.90 mg/dL 0.57-1.25 (test code = 358) GLUCOSE RANDOM 84 mg/dL 70-105 (BEAKER) (test code = 652) CALCIUM (BEAKER) 8.8 mg/dL 8.4-10.2 (test code = 697) EGFR (BEAKER) (test 81 mL/min/1.73 ESTIMA JOEL GFR IS code = 1092) sq m NOT ACCURATE CREATININE CLEARANCE IN PREDICTING GLOMERULAR FILTRATION RATE . ESTIMATED GFR I S NOT APPLICABLE FOR DIALYSIS PATIEN TS. CBC W/PLT COUNT & AUTO [id number] 06:16:00 Test Item Value Reference Range Interpretation Comments WHITE BLOOD CELL COUNT (BEAKER) 6.7 K/ L 3.5-10.5 (test code = 775) RED BLOOD CELL COUNT (BEAKER) 2.80 M/ L 4.63-6.08 L (test code = 761) HEMOGLOBIN (BEAKER) (test code = 8.1 GM/DL 13.7-17.5 L 410) HEMATOCRIT (BEAKER) (test code = 26.2 % 40.1-51.0 L 411) MEAN CORPUSCULAR VOLUME (BEAKER) 93.6 fL 79.0-92.2 H (test code = 753) MEAN CORPUSCULAR HEMOGLOBIN 28.9 pg 25.7-32.2 (BEAKER) (test code = 751) MEAN CORPUSCULAR HEMOGLOBIN CONC 30.9 GM/DL 32.3-36.5 L (BEAKER) (test code = 752) RED CELL DISTRIBUTION WIDTH 16.6 % 11.6-14.4 H (BEAKER) (test code = 412) PLATELET COUNT (BEAKER) (test 331 K/CU MM 150-450 code = 756) MEAN PLATELET VOLUME (BEAKER) 9.7 fL 9.4-12.4 (test code = 754) NUCLEATED RED BLOOD CELLS 0 /100 WBC 0-0 (BEAKER) (test code = 413) NEUTROPHILS RELATIVE PERCENT 49 % (BEAKER) (test code = 429) LYMPHOCYTES RELATIVE PERCENT 32 % (BEAKER) (test code = 430) MONOCYTES RELATIVE PERCENT 11 % (BEAKER) (test code = 431) EOSINOPHILS RELATIVE PERCENT 6 % (BEAKER) (test code = 432) BASOPHILS RELATIVE PERCENT 1 % (BEAKER) (test code = 437) NEUTROPHILS ABSOLUTE COUNT 3.31 K/ L 1.78-5.38 (BEAKER) (test code = 670) LYMPHOCYTES ABSOLUTE COUNT 2.14 K/ L 1.32-3.57 (BEAKER) (test code = 414) MONOCYTES ABSOLUTE COUNT (BEAKER) 0.75 K/ L 0.30-0.82 (test code = 415) EOSINOPHILS ABSOLUTE COUNT 0.42 K/ L 0.04-0.54 (BEAKER) (test code = 416) BASOPHILS ABSOLUTE COUNT (BEAKER) 0.07 K/ L 0.01-0.08 (test code = 417) IMMATURE GRANULOCYTES-RELATIVE 0 % 0-1 PERCENT (BEAKER) (test code = 2801) POCT-GLUCOSE [id number] 21:45:00 Test Item Value Reference Range Interpretation Comments POC-GLUCOSE METER 174 mg/dL 70-[address] [facility] 67[address] (BEAKER) (test code = [place] 1538) [id number] POCT-GLUCOSE [id number] 17:21:00 Test Item Value Reference Range Interpretation Comments POC-GLUCOSE METER 212 mg/dL 70-[address] [facility] 67[address] (BEAKER) (test code = [place] 1538) [id number] POCT-GLUCOSE [id number] 08:21:00 Test Item Value Reference Range Interpretation Comments POC-GLUCOSE METER 107 mg/dL 70-[address] [facility] 67[address] (BEAKER) (test code = [place] 1538) [id number] 03:39:00 Test Item Value Reference Range Interpretation Comments PHOSPHORUS (BEAKER) (test code = 2.8 mg/dL 2.3-4.7 604) [id number] 03:39:00 Test Item Value Reference Range Interpretation Comments MAGNESIUM (BEAKER) (test code = 1.4 mg/dL 1.6-2.6 L 627) COMPREHENSIVE METABOLIC [id number] 03:39:00 Test Item Value Reference Range Interpretation Comments TOTAL PROTEIN 6.5 gm/dL 6.0-8.3 (BEAKER) (test code = 770) ALBUMIN (BEAKER) 2.9 g/dL 3.5-5.0 L (test code = 1145) ALKALINE PHOSPHATASE 60 U/L 40-150 (BEAKER) (test code = 346) BILIRUBIN TOTAL 0.4 mg/dL 0.2-1.2 (BEAKER) (test code = 377) SODIUM (BEAKER) (test 140 meq/L 136-145 code = 381) POTASSIUM (BEAKER) 3.7 meq/L 3.5-5.1 (test code = 379) CHLORIDE (BEAKER) 104 meq/L 98-107 (test code = 382) CO2 (BEAKER) (test 25 meq/L 22-29 code = 355) BLOOD UREA NITROGEN 12 mg/dL 7-21 (BEAKER) (test code = 354) CREATININE (BEAKER) 0.96 mg/dL 0.57-1.25 (test code = 358) GLUCOSE RANDOM 101 mg/dL 70-105 (BEAKER) (test code = 652) CALCIUM (BEAKER) 8.9 mg/dL 8.4-10.2 (test code = 697) AST (SGOT) (BEAKER) 24 U/L 5-34 (test code = 353) ALT (SGPT) (BEAKER) 25 U/L 6-55 (test code = 347) EGFR (BEAKER) (test 75 mL/min/1.73 ESTIMA JOEL GFR IS code = 1092) sq m NOT ACCURATE CREATININE CLEARANCE IN PREDICTING GLOMERULAR FILTRATION RATE . ESTIMATED GFR I S NOT APPLICABLE FOR DIALYSIS PATIEN TS. PROTHROMBIN [id number] 03:27:00 Test Item Value Reference Range Interpretation Comments PROTIME (BEAKER) (test code = 15.7 seconds 11.7-14.7 H 759) INR (BEAKER) (test code = 370) 1.3 <=5.9 RECOMMENDED COUMADIN/WARFARIN INR THERAPY RANGESSTANDARD DOSE: 2.0 - 3.0 Includes: PROPHYLAXIS forvenous thrombosis, systemic embolization; TREATMENT for venous thrombosis and/or pulmonary embolus.HIGH RISK: Target INR is 2.5-3.5 for patients with mechanical heart valves.CBC W/PLT COUNT & AUTO DIFFERENTIAL 2017-06-15 03:19:00 Test Item Value Reference Range Interpretation Comments WHITE BLOOD CELL COUNT (BEAKER) 6.6 K/ L 3.5-10.5 (test code = 775) RED BLOOD CELL COUNT (BEAKER) 2.54 M/ L 4.63-6.08 L (test code = 761) HEMOGLOBIN (BEAKER) (test code = 7.5 GM/DL 13.7-17.5 L 410) HEMATOCRIT (BEAKER) (test code = 23.9 % 40.1-51.0 L 411) MEAN CORPUSCULAR VOLUME (BEAKER) 94.1 fL 79.0-92.2 H (test code = 753) MEAN CORPUSCULAR HEMOGLOBIN 29.5 pg 25.7-32.2 (BEAKER) (test code = 751) MEAN CORPUSCULAR HEMOGLOBIN CONC 31.4 GM/DL 32.3-36.5 L (BEAKER) (test code = 752) RED CELL DISTRIBUTION WIDTH 16.8 % 11.6-14.4 H (BEAKER) (test code = 412) PLATELET COUNT (BEAKER) (test 306 K/CU MM 150-450 code = 756) MEAN PLATELET VOLUME (BEAKER) 9.6 fL 9.4-12.4 (test code = 754) NUCLEATED RED BLOOD CELLS 0 /100 WBC 0-0 (BEAKER) (test code = 413) NEUTROPHILS RELATIVE PERCENT 44 % (BEAKER) (test code = 429) LYMPHOCYTES RELATIVE PERCENT 36 % (BEAKER) (test code = 430) MONOCYTES RELATIVE PERCENT 11 % (BEAKER) (test code = 431) EOSINOPHILS RELATIVE PERCENT 8 % (BEAKER) (test code = 432) BASOPHILS RELATIVE PERCENT 1 % (BEAKER) (test code = 437) NEUTROPHILS ABSOLUTE COUNT 2.91 K/ L 1.78-5.38 (BEAKER) (test code = 670) LYMPHOCYTES ABSOLUTE COUNT 2.37 K/ L 1.32-3.57 (BEAKER) (test code = 414) MONOCYTES ABSOLUTE COUNT (BEAKER) 0.70 K/ L 0.30-0.82 (test code = 415) EOSINOPHILS ABSOLUTE COUNT 0.50 K/ L 0.04-0.54 (BEAKER) (test code = 416) BASOPHILS ABSOLUTE COUNT (BEAKER) 0.06 K/ L 0.01-0.08 (test code = 417) IMMATURE GRANULOCYTES-RELATIVE 0 % 0-1 PERCENT (BEAKER) (test code = 2801) POCT-GLUCOSE [id number] 21:20:00 Test Item Value Reference Range Interpretation Comments POC-GLUCOSE METER 101 mg/dL 70-[address] [facility] 67[address] (BEAKER) (test code = [place]ER[place] 1538) [id number] BLOOD [id number] 18:00:00 Test Item Value Reference Range Interpretation Comments CULTURE (BEAKER) (test No growth in 5 days code = 1095) POCT-GLUCOSE [id number] 17:25:00 Test Item Value Reference Range Interpretation Comments POC-GLUCOSE METER 273 mg/dL 70-110 H TESTED AT [place] [address] (BEAKER) (test code = MIKY Marte [facility] 1538) [address] POCT-GLUCOSE [id number] 13:32:00 Test Item Value Reference Range Interpretation Comments POC-GLUCOSE METER 247 mg/dL 70-110 H TESTED AT [place] [address] (BEAKER) (test code = MIYK Marte [facility] 1538) [address] CBC W/PLT COUNT & AUTO [id number] 12:21:00 Test Item Value Reference Range Interpretation Comments WHITE BLOOD CELL COUNT (BEAKER) 6.0 K/ L 3.5-10.5 (test code = 775) RED BLOOD CELL COUNT (BEAKER) 2.60 M/ L 4.63-6.08 L (test code = 761) HEMOGLOBIN (BEAKER) (test code = 7.5 GM/DL 13.7-17.5 L 410) HEMATOCRIT (BEAKER) (test code = 24.2 % 40.1-51.0 L 411) MEAN CORPUSCULAR VOLUME (BEAKER) 93.1 fL 79.0-92.2 H (test code = 753) MEAN CORPUSCULAR HEMOGLOBIN 28.8 pg 25.7-32.2 (BEAKER) (test code = 751) MEAN CORPUSCULAR HEMOGLOBIN CONC 31.0 GM/DL 32.3-36.5 L (BEAKER) (test code = 752) RED CELL DISTRIBUTION WIDTH 16.8 % 11.6-14.4 H (BEAKER) (test code = 412) PLATELET COUNT (BEAKER) (test 299 K/CU MM 150-450 code = 756) MEAN PLATELET VOLUME (BEAKER) 9.9 fL 9.4-12.4 (test code = 754) NUCLEATED RED BLOOD CELLS 0 /100 WBC 0-0 (BEAKER) (test code = 413) POCT-GLUCOSE [id number] 08:05:00 Test Item Value Reference Range Interpretation Comments POC-GLUCOSE METER 165 mg/dL 70-110 H TESTED AT [place] [address] ([facility]) (test code = MIKY Marte [facility] 1538) [id number] [id number] 06:32:00 Test Item Value Reference Range Interpretation Comments MAGNESIUM (BEAKER) (test code = 1.0 mg/dL 1.6-2.6 LL 627) [id number] 06:31:00 Test Item Value Reference Range Interpretation Comments PHOSPHORUS (BEAKER) (test code = 2.9 mg/dL 2.3-4.7 604) BASIC METABOLIC [id number] 06:31:00 Test Item Value Reference Range Interpretation Comments SODIUM (BEAKER) 138 meq/L 136-145 (test code = 381) POTASSIUM (BEAKER) 3.3 meq/L 3.5-5.1 L (test code = 379) CHLORIDE (BEAKER) 103 meq/L 98-107 (test code = 382) CO2 (BEAKER) (test 26 meq/L 22-29 code = 355) BLOOD UREA NITROGEN 13 mg/dL 7-21 (BEAKER) (test code = 354) CREATININE (BEAKER) 0.85 mg/dL 0.57-1.25 (test code = 358) GLUCOSE RANDOM 135 mg/dL 70-105 H (BEAKER) (test code = 652) CALCIUM (BEAKER) 8.6 mg/dL 8.4-10.2 (test code = 697) EGFR (BEAKER) (test 87 mL/min/1.73 ESTIMA JOEL GFR IS code = 1092) sq m NOT ACCURATE CREATININE CLEARANCE IN PREDICTING GLOMERULAR FILTRATION RATE . ESTIMATED GFR I S NOT APPLICABLE FOR DIALYSIS PATIEN TS. POCT-GLUCOSE [id number] 21:42:00 Test Item Value Reference Range Interpretation Comments POC-GLUCOSE METER 139 mg/dL 70-[address] [facility] [address] (BEAKER) (test code = [facility] 1538) [id number] POCT-GLUCOSE [id number] 17:39:00 Test Item Value Reference Range Interpretation Comments POC-GLUCOSE METER 225 mg/dL 70-[address] [facility] 67[address] (BEAKER) (test code = [facility] 1538) [id number] POCT-GLUCOSE [id number] 12:02:00 Test Item Value Reference Range Interpretation Comments POC-GLUCOSE METER 153 mg/dL 70-[address] [facility] 67[address] (BEAKER) (test code = MIKY Marte [facility] [place] 1538) [address] POCT-GLUCOSE [id number] 09:32:00 Test Item Value Reference Range Interpretation Comments POC-GLUCOSE METER 82 mg/dL 70-[address] [facility] 67[address] (BEAKER) (test code = MIKY Marte [facility] [address] 1538) [id number] 06:51:00 Test Item Value Reference Range Interpretation Comments PHOSPHORUS (BEAKER) (test code = 2.6 mg/dL 2.3-4.7 604) [id number] 06:51:00 Test Item Value Reference Range Interpretation Comments MAGNESIUM (BEAKER) (test code = 1.4 mg/dL 1.6-2.6 L 627) BASIC METABOLIC [id number] 06:51:00 Test Item Value Reference Range Interpretation Comments SODIUM (BEAKER) 138 meq/L 136-145 (test code = 381) POTASSIUM (BEAKER) 3.5 meq/L 3.5-5.1 (test code = 379) CHLORIDE (BEAKER) 105 meq/L 98-107 (test code = 382) CO2 (BEAKER) (test 22 meq/L 22-29 code = 355) BLOOD UREA NITROGEN 14 mg/dL 7-21 (BEAKER) (test code = 354) CREATININE (BEAKER) 0.85 mg/dL 0.57-1.25 (test code = 358) GLUCOSE RANDOM 87 mg/dL 70-105 (BEAKER) (test code = 652) CALCIUM (BEAKER) 9.1 mg/dL 8.4-10.2 (test code = 697) EGFR (BEAKER) (test 87 mL/min/1.73 ESTIMA JOEL GFR IS code = 1092) sq m NOT ACCURATE CREATININE CLEARANCE IN PREDICTING GLOMERULAR FILTRATION RATE . ESTIMATED GFR I S NOT APPLICABLE FOR DIALYSIS PATIEN TS. CBC W/PLT COUNT & AUTO [id number] 05:59:00 Test Item Value Reference Range Interpretation Comments WHITE BLOOD CELL COUNT (BEAKER) 7.9 K/ L 3.5-10.5 (test code = 775) RED BLOOD CELL COUNT (BEAKER) 3.03 M/ L 4.63-6.08 L (test code = 761) HEMOGLOBIN (BEAKER) (test code = 8.8 GM/DL 13.7-17.5 L 410) HEMATOCRIT (BEAKER) (test code = 29.2 % 40.1-51.0 L 411) MEAN CORPUSCULAR VOLUME (BEAKER) 96.4 fL 79.0-92.2 H (test code = 753) MEAN CORPUSCULAR HEMOGLOBIN 29.0 pg 25.7-32.2 (BEAKER) (test code = 751) MEAN CORPUSCULAR HEMOGLOBIN CONC 30.1 GM/DL 32.3-36.5 L (BEAKER) (test code = 752) RED CELL DISTRIBUTION WIDTH 16.8 % 11.6-14.4 H (BEAKER) (test code = 412) PLATELET COUNT (BEAKER) (test 309 K/CU MM 150-450 code = 756) MEAN PLATELET VOLUME (BEAKER) 10.0 fL 9.4-12.4 (test code = 754) NUCLEATED RED BLOOD CELLS 0 /100 WBC 0-0 (BEAKER) (test code = 413) NEUTROPHILS RELATIVE PERCENT 60 % (BEAKER) (test code = 429) LYMPHOCYTES RELATIVE PERCENT 25 % (BEAKER) (test code = 430) MONOCYTES RELATIVE PERCENT 9 % (BEAKER) (test code = 431) EOSINOPHILS RELATIVE PERCENT 5 % (BEAKER) (test code = 432) BASOPHILS RELATIVE PERCENT 1 % (BEAKER) (test code = 437) NEUTROPHILS ABSOLUTE COUNT 4.71 K/ L 1.78-5.38 (BEAKER) (test code = 670) LYMPHOCYTES ABSOLUTE COUNT 1.93 K/ L 1.32-3.57 (BEAKER) (test code = 414) MONOCYTES ABSOLUTE COUNT (BEAKER) 0.70 K/ L 0.30-0.82 (test code = 415) EOSINOPHILS ABSOLUTE COUNT 0.36 K/ L 0.04-0.54 (BEAKER) (test code = 416) BASOPHILS ABSOLUTE COUNT (BEAKER) 0.11 K/ L 0.01-0.08 H (test code = 417) IMMATURE GRANULOCYTES-RELATIVE 1 % 0-1 PERCENT (BEAKER) (test code = 2801) POCT-GLUCOSE [id number] 22:42:00 Test Item Value Reference Range Interpretation Comments POC-GLUCOSE METER 143 mg/dL 70-[address] [facility] 67[address] (BEAKER) (test code = MIKY [place] 1538) [id number] POCT-GLUCOSE [id number] 17:31:00 Test Item Value Reference Range Interpretation Comments POC-GLUCOSE METER 167 mg/dL 70-110 H TESTED AT [place] [address] (BEAKER) (test code = MIKY Marte [facility] 1538) [address] POCT-GLUCOSE [id number] 12:29:00 Test Item Value Reference Range Interpretation Comments POC-GLUCOSE METER 196 mg/dL 70-110 H TESTED AT [place] [address] (BEAKER) (test code = MIKY Marte [facility] 1538) [address] POCT-GLUCOSE [id number] 07:54:00 Test Item Value Reference Range Interpretation Comments POC-GLUCOSE METER 138 mg/dL 70-110 H TESTED AT [place] [address] (BEAKER) (test code = MIKY Marte [facility] 1538) [address] [id number] 06:13:00 Test Item Value Reference Range Interpretation Comments PHOSPHORUS (BEAKER) (test code = 3.2 mg/dL 2.3-4.7 604) [id number] 06:13:00 Test Item Value Reference Range Interpretation Comments MAGNESIUM (BEAKER) (test code = 1.3 mg/dL 1.6-2.6 L 627) CBC W/PLT COUNT & AUTO [id number] 05:50:00 Test Item Value Reference Range Interpretation Comments WHITE BLOOD CELL COUNT (BEAKER) 6.1 K/ L 3.5-10.5 (test code = 775) RED BLOOD CELL COUNT (BEAKER) 2.70 M/ L 4.63-6.08 L (test code = 761) HEMOGLOBIN (BEAKER) (test code = 8.1 GM/DL 13.7-17.5 L 410) HEMATOCRIT (BEAKER) (test code = 26.1 % 40.1-51.0 L 411) MEAN CORPUSCULAR VOLUME (BEAKER) 96.7 fL 79.0-92.2 H (test code = 753) MEAN CORPUSCULAR HEMOGLOBIN 30.0 pg 25.7-32.2 (BEAKER) (test code = 751) MEAN CORPUSCULAR HEMOGLOBIN CONC 31.0 GM/DL 32.3-36.5 L (BEAKER) (test code = 752) RED CELL DISTRIBUTION WIDTH 16.8 % 11.6-14.4 H (BEAKER) (test code = 412) PLATELET COUNT (BEAKER) (test 254 K/CU MM 150-450 code = 756) MEAN PLATELET VOLUME (BEAKER) 10.7 fL 9.4-12.4 (test code = 754) NUCLEATED RED BLOOD CELLS 0 /100 WBC 0-0 (BEAKER) (test code = 413) NEUTROPHILS RELATIVE PERCENT 58 % (BEAKER) (test code = 429) LYMPHOCYTES RELATIVE PERCENT 25 % (BEAKER) (test code = 430) MONOCYTES RELATIVE PERCENT 11 % (BEAKER) (test code = 431) EOSINOPHILS RELATIVE PERCENT 5 % (BEAKER) (test code = 432) BASOPHILS RELATIVE PERCENT 2 % (BEAKER) (test code = 437) NEUTROPHILS ABSOLUTE COUNT 3.53 K/ L 1.78-5.38 (BEAKER) (test code = 670) LYMPHOCYTES ABSOLUTE COUNT 1.54 K/ L 1.32-3.57 (BEAKER) (test code = 414) MONOCYTES ABSOLUTE COUNT (BEAKER) 0.64 K/ L 0.30-0.82 (test code = 415) EOSINOPHILS ABSOLUTE COUNT 0.28 K/ L 0.04-0.54 (BEAKER) (test code = 416) BASOPHILS ABSOLUTE COUNT (BEAKER) 0.09 K/ L 0.01-0.08 H (test code = 417) IMMATURE GRANULOCYTES-RELATIVE 1 % 0-1 PERCENT (BEAKER) (test code = 2801) POCT-GLUCOSE [id number] 21:11:00 Test Item Value Reference Range Interpretation Comments POC-GLUCOSE METER 160 mg/dL 70-110 H TESTED AT [place] [address] ([facility]) (test code = MIKY Marte [facility] 1538) [id number] BLOOD [id number] 18:00:00 Test Item Value Reference Range Interpretation Comments CULTURE ([facility]) (test No growth in 5 days code = 1095) POCT-GLUCOSE [id number] 17:54:00 Test Item Value Reference Range Interpretation Comments POC-GLUCOSE METER 163 mg/dL 70-[address] [facility] [address] ([facility]) (test code = MIKY KAN [place] 1538) [id number] POCT-GLUCOSE [id number] 12:41:00 Test Item Value Reference Range Interpretation Comments POC-GLUCOSE METER 133 mg/dL 70-[address] [facility] [address] (BEAKER) (test code = MIKY Marte [facility] [place] 1538) [id number] BLOOD [id number] 11:00:00 Test Item Value Reference Range Interpretation Comments CULTURE (BEAKER) (test No growth in 5 days code = 1095) POCT-GLUCOSE [id number] 07:57:00 Test Item Value Reference Range Interpretation Comments POC-GLUCOSE METER 132 mg/dL 70-[address] [facility] [address] (BEAKER) (test code = MIKY Marte [facility] [place] 1538) [id number] VANCOMYCIN LEVEL, [id number] 07:30:00 Test Item Value Reference Range Interpretation Comments VANCOMYCIN RANDOM (BEAKER) (test 31.8 ug/mL code = 523) Reference Range: No [id number] 07:09:00 Test Item Value Reference Range Interpretation Comments PHOSPHORUS (BEAKER) (test code = 3.5 mg/dL 2.3-4.7 604) [id number] 07:09:00 Test Item Value Reference Range Interpretation Comments MAGNESIUM (BEAKER) (test code = 1.4 mg/dL 1.6-2.6 L 627) BASIC METABOLIC [id number] 07:09:00 Test Item Value Reference Range Interpretation Comments SODIUM (BEAKER) 137 meq/L 136-145 (test code = 381) POTASSIUM (BEAKER) 3.9 meq/L 3.5-5.1 (test code = 379) CHLORIDE (BEAKER) 100 meq/L 98-107 (test code = 382) CO2 (BEAKER) (test 26 meq/L 22-29 code = 355) BLOOD UREA NITROGEN 20 mg/dL 7-21 (BEAKER) (test code = 354) CREATININE (BEAKER) 0.94 mg/dL 0.57-1.25 (test code = 358) GLUCOSE RANDOM 133 mg/dL 70-105 H (BEAKER) (test code = 652) CALCIUM (BEAKER) 8.9 mg/dL 8.4-10.2 (test code = 697) EGFR (BEAKER) (test 77 mL/min/1.73 ESTIMA JOEL GFR IS code = 1092) sq m NOT ACCURATE CREATININE CLEARANCE IN PREDICTING GLOMERULAR FILTRATION RATE . ESTIMATED GFR I S NOT APPLICABLE FOR DIALYSIS PATIEN TS. CBC W/PLT COUNT & AUTO [id number] 06:27:00 Test Item Value Reference Range Interpretation Comments WHITE BLOOD CELL COUNT (BEAKER) 7.1 K/ L 3.5-10.5 (test code = 775) RED BLOOD CELL COUNT (BEAKER) 2.56 M/ L 4.63-6.08 L (test code = 761) HEMOGLOBIN (BEAKER) (test code = 7.6 GM/DL 13.7-17.5 L 410) HEMATOCRIT (BEAKER) (test code = 24.3 % 40.1-51.0 L 411) MEAN CORPUSCULAR VOLUME (BEAKER) 94.9 fL 79.0-92.2 H (test code = 753) MEAN CORPUSCULAR HEMOGLOBIN 29.7 pg 25.7-32.2 (BEAKER) (test code = 751) MEAN CORPUSCULAR HEMOGLOBIN CONC 31.3 GM/DL 32.3-36.5 L (BEAKER) (test code = 752) RED CELL DISTRIBUTION WIDTH 16.8 % 11.6-14.4 H (BEAKER) (test code = 412) PLATELET COUNT (BEAKER) (test 232 K/CU MM 150-450 code = 756) MEAN PLATELET VOLUME (BEAKER) 10.5 fL 9.4-12.4 (test code = 754) NUCLEATED RED BLOOD CELLS 0 /100 WBC 0-0 (BEAKER) (test code = 413) NEUTROPHILS RELATIVE PERCENT 61 % (BEAKER) (test code = 429) LYMPHOCYTES RELATIVE PERCENT 24 % (BEAKER) (test code = 430) MONOCYTES RELATIVE PERCENT 9 % (BEAKER) (test code = 431) EOSINOPHILS RELATIVE PERCENT 4 % (BEAKER) (test code = 432) BASOPHILS RELATIVE PERCENT 1 % (BEAKER) (test code = 437) NEUTROPHILS ABSOLUTE COUNT 4.36 K/ L 1.78-5.38 (BEAKER) (test code = 670) LYMPHOCYTES ABSOLUTE COUNT 1.71 K/ L 1.32-3.57 (BEAKER) (test code = 414) MONOCYTES ABSOLUTE COUNT (BEAKER) 0.66 K/ L 0.30-0.82 (test code = 415) EOSINOPHILS ABSOLUTE COUNT 0.29 K/ L 0.04-0.54 (BEAKER) (test code = 416) BASOPHILS ABSOLUTE COUNT (BEAKER) 0.05 K/ L 0.01-0.08 (test code = 417) IMMATURE GRANULOCYTES-RELATIVE 0 % 0-1 PERCENT (BEAKER) (test code = 2801) POCT-GLUCOSE [id number] 21:46:00 Test Item Value Reference Range Interpretation Comments POC-GLUCOSE METER 262 mg/dL 70-110 H TESTED AT [place] [address] ([facility]) (test code = [facility] [place] [facility] 1538) [id number] POCT-GLUCOSE [id number] 17:44:00 Test Item Value Reference Range Interpretation Comments POC-GLUCOSE METER 175 mg/dL 70-110 H TESTED AT [place] [address] ([facility]) (test code = [facility] 1538) [id number] POCT-GLUCOSE [id number] 12:25:00 Test Item Value Reference Range Interpretation Comments POC-GLUCOSE METER 173 mg/dL 70-110 H TESTED AT [place] [address] ([facility]) (test code = [facility] 1538) [address] BLOOD [id number] 12:00:00 Test Item Value Reference Range Interpretation Comments CULTURE ([facility]) (test No growth in 5 days code = 1095) POCT-GLUCOSE [id number] 08:52:00 Test Item Value Reference Range Interpretation Comments POC-GLUCOSE METER 183 mg/dL 70-110 H TESTED AT [place] [address] ([facility]) (test code = [facility] 1538) [address] [id number] 06:01:00 Test Item Value Reference Range Interpretation Comments PHOSPHORUS (BEAKER) (test code = 3.3 mg/dL 2.3-4.7 604) [id number] 06:01:00 Test Item Value Reference Range Interpretation Comments MAGNESIUM (BEAKER) (test code = 1.8 mg/dL 1.6-2.6 627) BASIC METABOLIC [id number] 06:01:00 Test Item Value Reference Range Interpretation Comments SODIUM (BEAKER) 138 meq/L 136-145 (test code = 381) POTASSIUM (BEAKER) 4.0 meq/L 3.5-5.1 (test code = 379) CHLORIDE (BEAKER) 101 meq/L 98-107 (test code = 382) CO2 (BEAKER) (test 25 meq/L 22-29 code = 355) BLOOD UREA NITROGEN 22 mg/dL 7-21 H (BEAKER) (test code = 354) CREATININE (BEAKER) 0.90 mg/dL 0.57-1.25 (test code = 358) GLUCOSE RANDOM 145 mg/dL 70-105 H (BEAKER) (test code = 652) CALCIUM (BEAKER) 8.7 mg/dL 8.4-10.2 (test code = 697) EGFR (BEAKER) (test 81 mL/min/1.73 ESTIMA JOEL GFR IS code = 1092) sq m NOT ACCURATE CREATININE CLEARANCE IN PREDICTING GLOMERULAR FILTRATION RATE . ESTIMATED GFR I S NOT APPLICABLE FOR DIALYSIS PATIEN TS. CBC W/PLT COUNT & AUTO [id number] 04:59:00 Test Item Value Reference Range Interpretation Comments WHITE BLOOD CELL COUNT (BEAKER) 10.0 K/ L 3.5-10.5 (test code = 775) RED BLOOD CELL COUNT (BEAKER) 2.62 M/ L 4.63-6.08 L (test code = 761) HEMOGLOBIN (BEAKER) (test code = 7.6 GM/DL 13.7-17.5 L 410) HEMATOCRIT (BEAKER) (test code = 24.7 % 40.1-51.0 L 411) MEAN CORPUSCULAR VOLUME (BEAKER) 94.3 fL 79.0-92.2 H (test code = 753) MEAN CORPUSCULAR HEMOGLOBIN 29.0 pg 25.7-32.2 (BEAKER) (test code = 751) MEAN CORPUSCULAR HEMOGLOBIN CONC 30.8 GM/DL 32.3-36.5 L (BEAKER) (test code = 752) RED CELL DISTRIBUTION WIDTH 16.9 % 11.6-14.4 H (BEAKER) (test code = 412) PLATELET COUNT (BEAKER) (test 200 K/CU MM 150-450 code = 756) MEAN PLATELET VOLUME (BEAKER) 11.1 fL 9.4-12.4 (test code = 754) NUCLEATED RED BLOOD CELLS 0 /100 WBC 0-0 (BEAKER) (test code = 413) NEUTROPHILS RELATIVE PERCENT 72 % (BEAKER) (test code = 429) LYMPHOCYTES RELATIVE PERCENT 17 % (BEAKER) (test code = 430) MONOCYTES RELATIVE PERCENT 7 % (BEAKER) (test code = 431) EOSINOPHILS RELATIVE PERCENT 2 % (BEAKER) (test code = 432) BASOPHILS RELATIVE PERCENT 1 % (BEAKER) (test code = 437) NEUTROPHILS ABSOLUTE COUNT 7.18 K/ L 1.78-5.38 H (AKER) (test code = 670) LYMPHOCYTES ABSOLUTE COUNT 1.74 K/ L 1.32-3.57 (BEAKER) (test code = 414) MONOCYTES ABSOLUTE COUNT (BEAKER) 0.73 K/ L 0.30-0.82 (test code = 415) EOSINOPHILS ABSOLUTE COUNT 0.21 K/ L 0.04-0.54 (BEAKER) (test code = 416) BASOPHILS ABSOLUTE COUNT (AKER) 0.08 K/ L 0.01-0.08 (test code = 417) IMMATURE GRANULOCYTES-RELATIVE 1 % 0-1 PERCENT (AKER) (test code = 2801) POCT-GLUCOSE [id number] 21:51:00 Test Item Value Reference Range Interpretation Comments POC-GLUCOSE METER 203 mg/dL 70-110 H TESTED AT [place] [address] ([facility]) (test code = [facility] 1538) [address] POCT-GLUCOSE [id number] 17:35:00 Test Item Value Reference Range Interpretation Comments POC-GLUCOSE METER 218 mg/dL 70-110 H TESTED AT [place] [address] ([facility]) (test code = [facility] 1538) [address] SPUTUM CULTURE + GRAM [id number] 15:48:00 Test Item Value Reference Interpretation Comments Range CULTURE ([facility]) METHICILLIN A <1+ Methici llin (test code = 1095) RESISTANT resistant STAPHYLOCOCCUS Staphylococcu s aureus AUREUS Clindamycin (test R code = 10) Erythromycin (test R code = 4) Linezolid (test S code = 40) Nitrofurantoin S (test code = 23) Oxacillin (test R code = 14) Rifampin (test code S = 43) Tetracycline (test S code = 2) Trimethoprim + S Sulfamethoxazole (test code = 47) Vancomycin (test S code = 13) CULTURE ([facility]) A <1+ Strepto coccus not (test code = 1095) group A b eta hemolyticIdenti fied by serological tamika uping. GRAM STAIN RESULT No WBCs (AKER) (test code = 1123) GRAM STAIN RESULT 0-5 epithelial (BEAKER) (test code cells = 178253) GRAM STAIN RESULT No organisms seen (BEAKER) (test code = 716395) <1+ Normal respiratory melanie presentPOCT-GLUCOSE [id number] 12:00:00 Test Item Value Reference Range Interpretation Comments POC-GLUCOSE METER 194 mg/dL 70-[address] [facility] [address] (BEAKER) (test code = [facility] 1538) [address] BLOOD [id number] 12:00:00 Test Item Value Reference Range Interpretation Comments CULTURE (BEAKER) (test No growth in 5 days code = 1095) BLOOD [id number] 12:00:00 Test Item Value Reference Range Interpretation Comments CULTURE (BEAKER) (test No growth in 5 days code = 1095) POCT-GLUCOSE [id number] 05:58:00 Test Item Value Reference Range Interpretation Comments POC-GLUCOSE METER 228 mg/dL 70-[address] [facility] [address] (BEAKER) (test code = [facility] 1538) [address] [id number] 04:42:00 Test Item Value Reference Range Interpretation Comments PHOSPHORUS (BEAKER) (test code = 3.1 mg/dL 2.3-4.7 604) [id number] 04:42:00 Test Item Value Reference Range Interpretation Comments MAGNESIUM (BEAKER) (test code = 1.9 mg/dL 1.6-2.6 627) BASIC METABOLIC [id number] 04:42:00 Test Item Value Reference Range Interpretation Comments SODIUM (BEAKER) 138 meq/L 136-145 (test code = 381) POTASSIUM (BEAKER) 4.2 meq/L 3.5-5.1 (test code = 379) CHLORIDE (BEAKER) 101 meq/L 98-107 (test code = 382) CO2 (BEAKER) (test 28 meq/L 22-29 code = 355) BLOOD UREA NITROGEN 23 mg/dL 7-21 H (BEAKER) (test code = 354) CREATININE (BEAKER) 0.87 mg/dL 0.57-1.25 (test code = 358) GLUCOSE RANDOM 181 mg/dL 70-105 H (BEAKER) (test code = 652) CALCIUM (BEAKER) 8.7 mg/dL 8.4-10.2 (test code = 697) EGFR (BEAKER) (test 84 mL/min/1.73 ESTIMA JOEL GFR IS code = 1092) sq m NOT ACCURATE CREATININE CLEARANCE IN PREDICTING GLOMERULAR FILTRATION RATE . ESTIMATED GFR I S NOT APPLICABLE FOR DIALYSIS PATIEN TS. CBC W/PLT COUNT & AUTO [id number] 04:27:00 Test Item Value Reference Range Interpretation Comments WHITE BLOOD CELL COUNT (BEAKER) 15.8 K/ L 3.5-10.5 H (test code = 775) RED BLOOD CELL COUNT (BEAKER) 2.66 M/ L 4.63-6.08 L (test code = 761) HEMOGLOBIN (BEAKER) (test code = 7.8 GM/DL 13.7-17.5 L 410) HEMATOCRIT (BEAKER) (test code = 25.2 % 40.1-51.0 L 411) MEAN CORPUSCULAR VOLUME (BEAKER) 94.7 fL 79.0-92.2 H (test code = 753) MEAN CORPUSCULAR HEMOGLOBIN 29.3 pg 25.7-32.2 (BEAKER) (test code = 751) MEAN CORPUSCULAR HEMOGLOBIN CONC 31.0 GM/DL 32.3-36.5 L (BEAKER) (test code = 752) RED CELL DISTRIBUTION WIDTH 17.0 % 11.6-14.4 H (BEAKER) (test code = 412) PLATELET COUNT (BEAKER) (test 219 K/CU MM 150-450 code = 756) MEAN PLATELET VOLUME (BEAKER) 11.0 fL 9.4-12.4 (test code = 754) NUCLEATED RED BLOOD CELLS 0 /100 WBC 0-0 (BEAKER) (test code = 413) NEUTROPHILS RELATIVE PERCENT 82 % (BEAKER) (test code = 429) LYMPHOCYTES RELATIVE PERCENT 10 % (BEAKER) (test code = 430) MONOCYTES RELATIVE PERCENT 6 % (BEAKER) (test code = 431) EOSINOPHILS RELATIVE PERCENT 1 % (BEAKER) (test code = 432) BASOPHILS RELATIVE PERCENT 0 % (BEAKER) (test code = 437) NEUTROPHILS ABSOLUTE COUNT 12.89 K/ L 1.78-5.38 H (BEAKER) (test code = 670) LYMPHOCYTES ABSOLUTE COUNT 1.61 K/ L 1.32-3.57 (BEAKER) (test code = 414) MONOCYTES ABSOLUTE COUNT (BEAKER) 0.95 K/ L 0.30-0.82 H (test code = 415) EOSINOPHILS ABSOLUTE COUNT 0.13 K/ L 0.04-0.54 (BEAKER) (test code = 416) BASOPHILS ABSOLUTE COUNT (BEAKER) 0.07 K/ L 0.01-0.08 (test code = 417) IMMATURE GRANULOCYTES-RELATIVE 1 % 0-1 PERCENT (BEAKER) (test code = 2801) POCT-GLUCOSE [id number] 00:11:00 Test Item Value Reference Range Interpretation Comments POC-GLUCOSE METER 194 mg/dL 70-[address] [facility] [address] (BEAKER) (test code = [place] 1538) [address] [id number] 20:46:00 Test Item Value Reference Range Interpretation Comments MAGNESIUM (BEAKER) (test code = 1.9 mg/dL 1.6-2.6 627) BASIC METABOLIC [id number] 20:46:00 Test Item Value Reference Range Interpretation Comments SODIUM (BEAKER) 138 meq/L 136-145 (test code = 381) POTASSIUM (BEAKER) 4.2 meq/L 3.5-5.1 (test code = 379) CHLORIDE (BEAKER) 100 meq/L 98-107 (test code = 382) CO2 (BEAKER) (test 29 meq/L 22-29 code = 355) BLOOD UREA NITROGEN 22 mg/dL 7-21 H (BEAKER) (test code = 354) CREATININE (BEAKER) 0.85 mg/dL 0.57-1.25 (test code = 358) GLUCOSE RANDOM 293 mg/dL 70-105 H (BEAKER) (test code = 652) CALCIUM (BEAKER) 8.9 mg/dL 8.4-10.2 (test code = 697) EGFR (BEAKER) (test 87 mL/min/1.73 ESTIMA JOEL GFR IS code = 1092) sq m NOT ACCURATE CREATININE CLEARANCE IN PREDICTING GLOMERULAR FILTRATION RATE . ESTIMATED GFR I S NOT APPLICABLE FOR DIALYSIS PATIEN TS. POCT-GLUCOSE [id number] 19:29:00 Test Item Value Reference Range Interpretation Comments POC-GLUCOSE METER 317 mg/dL 70-[address] [facility] [address] ([facility]) ([facility] 1538) [address] BLOOD GAS, [id number] 18:31:00 Test Item Value Reference Range Interpretation Comments PH VENOUS (BEAKER) (test code = 7.46 7.32-7.42 H 701) PCO2 VENOUS (BEAKER) (test code = 48 mmHg 41-51 755) PO2 VENOUS (BEAKER) (test code = 18 mmHg 25-40 L 702) O2 SATURATION VENOUS (BEAKER) 29.8 % 40.0-70.0 L (test code = 703) HCO3 VENOUS (BEAKER) (test code = 33 mmol/L 21-29 H 705) BASE EXCESS VENOUS (BEAKER) (test 8.6 mmol/L -2.0-3.0 H code = 704) PATIENT TEMPERATURE (AKER) (test 37.0 C code = 1818) From midlinePOCT-GLUCOSE [id number] 12:03:00 Test Item Value Reference Range Interpretation Comments POC-GLUCOSE METER 107 mg/dL 70-110 TESTED AT [place] [address] ([facility]) (test code = [facility] 1538) [address] POCT-GLUCOSE [id number] 12:03:00 Test Item Value Reference Range Interpretation Comments POC-GLUCOSE METER 75 mg/dL 70-110 TESTED AT [place] [address] ([facility]) (test code = [facility] [address] 1538) [id number] 06:12:00 Test Item Value Reference Range Interpretation Comments FERRITIN (BEAKER) (test code = 361) 334 ng/mL 5-275 H VITAMIN B12 AND [id number] 06:12:00 Test Item Value Reference Range Interpretation Comments VITAMIN B12 (BEAKER) (test code = 508 pg/mL 213816 774) FOLATE (BEAKER) (test code = 362) 16.5 ng/mL >=7.0 POCT-GLUCOSE [id number] 06:00:00 Test Item Value Reference Range Interpretation Comments POC-GLUCOSE METER 84 mg/dL 70-110 TESTED AT [place] [address] ([facility]) (test code = [facility] [address] 1538) IRON, TIBC, % SAT. (WITHOUT FERRITIN)2017-06-08 05:42:00 Test Item Value Reference Range Interpretation Comments IRON (BEAKER) (test code = 547) 15 ug/dL 40-160 L TOTAL IRON BINDING CAPACITY 183 ug/dL 250-450 L (BEAKER) (test code = 769) IRON % SATURATION (2) (BEAKER) 8 % 20-55 L (test code = 2590) [id number] 05:42:00 Test Item Value Reference Range Interpretation Comments PHOSPHORUS (BEAKER) (test code = 2.8 mg/dL 2.3-4.7 604) [id number] 05:42:00 Test Item Value Reference Range Interpretation Comments MAGNESIUM (BEAKER) (test code = 1.6 mg/dL 1.6-2.6 627) BASIC METABOLIC [id number] 05:42:00 Test Item Value Reference Range Interpretation Comments SODIUM (BEAKER) 140 meq/L 136-145 (test code = 381) POTASSIUM (BEAKER) 3.7 meq/L 3.5-5.1 (test code = 379) CHLORIDE (BEAKER) 103 meq/L 98-107 (test code = 382) CO2 (BEAKER) (test 29 meq/L 22-29 code = 355) BLOOD UREA NITROGEN 25 mg/dL 7-21 H (BEAKER) (test code = 354) CREATININE (BEAKER) 0.75 mg/dL 0.57-1.25 (test code = 358) GLUCOSE RANDOM 70 mg/dL 70-105 (BEAKER) (test code = 652) CALCIUM (BEAKER) 8.8 mg/dL 8.4-10.2 (test code = 697) EGFR (BEAKER) (test 100 mL/min/1.73 ESTIM ATED GFR IS code = 1092) sq m NOT ACCURATE CREATININE CLEARANCE IN PREDICTING GLOMERULAR FILTRATION RATE . ESTIMATED GFR I S NOT APPLICABLE FOR DIALYSIS PATIEN TS. CBC W/PLT COUNT & AUTO [id number] 05:25:00 Test Item Value Reference Range Interpretation Comments WHITE BLOOD CELL COUNT (BEAKER) 12.1 K/ L 3.5-10.5 H (test code = 775) RED BLOOD CELL COUNT (BEAKER) 2.62 M/ L 4.63-6.08 L (test code = 761) HEMOGLOBIN (BEAKER) (test code = 7.8 GM/DL 13.7-17.5 L 410) HEMATOCRIT (BEAKER) (test code = 24.9 % 40.1-51.0 L 411) MEAN CORPUSCULAR VOLUME (BEAKER) 95.0 fL 79.0-92.2 H (test code = 753) MEAN CORPUSCULAR HEMOGLOBIN 29.8 pg 25.7-32.2 (BEAKER) (test code = 751) MEAN CORPUSCULAR HEMOGLOBIN CONC 31.3 GM/DL 32.3-36.5 L (BEAKER) (test code = 752) RED CELL DISTRIBUTION WIDTH 17.2 % 11.6-14.4 H (BEAKER) (test code = 412) PLATELET COUNT (BEAKER) (test 188 K/CU MM 150-450 code = 756) MEAN PLATELET VOLUME (BEAKER) 10.5 fL 9.4-12.4 (test code = 754) NUCLEATED RED BLOOD CELLS 0 /100 WBC 0-0 (BEAKER) (test code = 413) NEUTROPHILS RELATIVE PERCENT 71 % (BEAKER) (test code = 429) LYMPHOCYTES RELATIVE PERCENT 16 % (BEAKER) (test code = 430) MONOCYTES RELATIVE PERCENT 9 % (BEAKER) (test code = 431) EOSINOPHILS RELATIVE PERCENT 3 % (BEAKER) (test code = 432) BASOPHILS RELATIVE PERCENT 1 % (BEAKER) (test code = 437) NEUTROPHILS ABSOLUTE COUNT 8.58 K/ L 1.78-5.38 H (BEAKER) (test code = 670) LYMPHOCYTES ABSOLUTE COUNT 1.87 K/ L 1.32-3.57 (BEAKER) (test code = 414) MONOCYTES ABSOLUTE COUNT (BEAKER) 1.12 K/ L 0.30-0.82 H (test code = 415) EOSINOPHILS ABSOLUTE COUNT 0.33 K/ L 0.04-0.54 (BEAKER) (test code = 416) BASOPHILS ABSOLUTE COUNT (BEAKER) 0.09 K/ L 0.01-0.08 H (test code = 417) IMMATURE GRANULOCYTES-RELATIVE 1 % 0-1 PERCENT (BEAKER) (test code = 2801) POCT-GLUCOSE [id number] 23:41:00 Test Item Value Reference Range Interpretation Comments POC-GLUCOSE METER 180 mg/dL 70-[address] [facility] [address] (BEAKER) (test code = [facility] [place] 1538) [address] RAD, ABDOMEN/KUB, 1 VIEW [id number] 22:29:00Reason for exam:->feeding tube placementFINAL REPORT Comparison: 06/07/2017 at 9:51 PM TECHNIQUE: Frontal image of the abdomen FINDINGS: Feeding tube has been repositioned. Tip now projects in the distal stomach. No other significant change. Signed: Kali Medinaort Verified Date/Time: 06/07/2017 22:29:27 Reading Location: [address] Consult Reading Room RAD, ABDOMEN/KUB, 1 VIEW AP 2017-06-07 22:16:00Reason for exam:->feeding tube placementFINAL REPORT Comparison: 06/03/2017 TECHNIQUE: Frontal image of the abdomen FINDINGS: Feeding tube has been advanced. Distal portion is turned back upon itself and the tip projects in the fundus. Bowel gas pattern is nonspecific. Signed: Kali Medina Verified Date/Time: 06/07/2017 22:16:52 Reading Location: [address] Consult Reading Room [facility] METABOLIC [facility] 2017-06-07 19:04:00 Test Item Value Reference Range Interpretation Comments SODIUM (BEAKER) 138 meq/L 136-145 (test code = 381) POTASSIUM (BEAKER) 4.1 meq/L 3.5-5.1 (test code = 379) CHLORIDE (BEAKER) 102 meq/L 98-107 (test code = 382) CO2 (BEAKER) (test 28 meq/L -29 code = 355) BLOOD UREA NITROGEN 27 mg/dL 7-21 H (BEAKER) (test code = 354) CREATININE (BEAKER) 0.83 mg/dL 0.57-1.25 (test code = 358) GLUCOSE RANDOM 179 mg/dL 70-105 H (BEAKER) (test code = 652) CALCIUM (BEAKER) 8.6 mg/dL 8.4-10.2 (test code = 697) EGFR (BEAKER) (test 89 mL/min/1.73 ESTIMA JOEL GFR IS code = 1092) sq m NOT ACCURATE CREATININE CLEARANCE IN PREDICTING GLOMERULAR FILTRATION RATE . ESTIMATED GFR I S NOT APPLICABLE FOR DIALYSIS PATIEN TS. POCT-GLUCOSE [id number] 18:24:00 Test Item Value Reference Range Interpretation Comments POC-GLUCOSE METER 198 mg/dL 70-110 H TESTED AT [place] [address] ([facility]) (test code = [facility] [place] 1538) [address] [id number] 17:53:00 Test Item Value Reference Range Interpretation Comments PROCALCITONIN ([facility]) (test code = < ng/mL <0.05 3036) SEPSIS RISK (ng/mL)Low: 0.05-0.50Intermediate: 0.51-2.00High: >=2.01RETICULOCYTE [id number] 17:06:00 Test Item Value Reference Range Interpretation Comments RETICULOCYTE COUNT PCT ([facility]) (test 2.7 % 0.5-1.8 H code = 575) POCT-GLUCOSE [id number] 13:07:00 Test Item Value Reference Range Interpretation Comments POC-GLUCOSE METER 240 mg/dL 70-110 H TESTED AT [place] [address] ([facility]) (test code = [facility] 1538) [address] RAD, CHEST, 1 VIEW, NON [id number] 08:42:00Reason for exam:- >intubatedShould this be performed at the bedside?->YesFINAL REPORT Chest one view compared to June 06, 2017 Discussion: Left chest pacemaker, feeding tube, right IJ line in place. There is pulmonary congestion with subtle suspected airspace opacity left lung base all unchanged. No gross effusion or pneumothorax. Signed: Jerel Noguera Verified Date/Time: 06/07/2017 08:42:41 Reading Location: [facility] Radiology Reading Room TROPONIN [id number] 05:52:00 Test Item Value Reference Range Interpretation Comments TROPONIN I ([facility]) (test code = 0.03 ng/mL 0.00-0.03 397) Troponin I (TnI) levels must be interpreted [...] acidosis, acute neurological disease, and persistent tachyarrhythmia.POCT-GLUCOSE [id number] 05:48:00 Test Item Value Reference Range Interpretation Comments POC-GLUCOSE METER 148 mg/dL 70-[address] [facility] [address] (BEAKER) (test code = [facility] Marte YASH [facility]JERA 1538) [address] [id number] 05:43:00 Test Item Value Reference Range Interpretation Comments PHOSPHORUS (BEAKER) (test code = 2.9 mg/dL 2.3-4.7 604) [id number] 05:43:00 Test Item Value Reference Range Interpretation Comments MAGNESIUM (BEAKER) (test code = 1.6 mg/dL 1.6-2.6 627) BASIC METABOLIC [id number] 05:43:00 Test Item Value Reference Range Interpretation Comments SODIUM (BEAKER) 139 meq/L 136-145 (test code = 381) POTASSIUM (BEAKER) 3.8 meq/L 3.5-5.1 (test code = 379) CHLORIDE (BEAKER) 104 meq/L 98-107 (test code = 382) CO2 (BEAKER) (test 26 meq/L 22-29 code = 355) BLOOD UREA NITROGEN 31 mg/dL 7-21 H (BEAKER) (test code = 354) CREATININE (BEAKER) 0.82 mg/dL 0.57-1.25 (test code = 358) GLUCOSE RANDOM 136 mg/dL 70-105 H (BEAKER) (test code = 652) CALCIUM (BEAKER) 8.1 mg/dL 8.4-10.2 L (test code = 697) EGFR (BEAKER) (test 90 mL/min/1.73 ESTIMA JOEL GFR IS code = 1092) sq m NOT ACCURATE CREATININE CLEARANCE IN PREDICTING GLOMERULAR FILTRATION RATE . ESTIMATED GFR I S NOT APPLICABLE FOR DIALYSIS PATIEN TS. LACTIC ACID, VENOUS, WHOLE [id number] 05:41:00 Test Item Value Reference Range Interpretation Comments LACTATE BLOOD VENOUS (2) (BEAKER) 0.9 mmol/L 0.5-2.2 (test code = 2872) Effective 06/10/2015: Units/Reference Range ChangeNew: 0.5-2.2 mmol/L Previous: 5-20 mg/dLCBC W/PLT COUNT & AUTO [id number] 05:26:00 Test Item Value Reference Range Interpretation Comments WHITE BLOOD CELL COUNT (BEAKER) 10.9 K/ L 3.5-10.5 H (test code = 775) RED BLOOD CELL COUNT (BEAKER) 2.50 M/ L 4.63-6.08 L (test code = 761) HEMOGLOBIN (BEAKER) (test code = 7.5 GM/DL 13.7-17.5 L 410) HEMATOCRIT (BEAKER) (test code = 23.8 % 40.1-51.0 L 411) MEAN CORPUSCULAR VOLUME (BEAKER) 95.2 fL 79.0-92.2 H (test code = 753) MEAN CORPUSCULAR HEMOGLOBIN 30.0 pg 25.7-32.2 (BEAKER) (test code = 751) MEAN CORPUSCULAR HEMOGLOBIN CONC 31.5 GM/DL 32.3-36.5 L (BEAKER) (test code = 752) RED CELL DISTRIBUTION WIDTH 17.3 % 11.6-14.4 H (BEAKER) (test code = 412) PLATELET COUNT (BEAKER) (test 159 K/CU MM 150-450 code = 756) MEAN PLATELET VOLUME (BEAKER) 10.6 fL 9.4-12.4 (test code = 754) NUCLEATED RED BLOOD CELLS 0 /100 WBC 0-0 (BEAKER) (test code = 413) NEUTROPHILS RELATIVE PERCENT 69 % (BEAKER) (test code = 429) LYMPHOCYTES RELATIVE PERCENT 17 % (BEAKER) (test code = 430) MONOCYTES RELATIVE PERCENT 9 % (BEAKER) (test code = 431) EOSINOPHILS RELATIVE PERCENT 4 % (BEAKER) (test code = 432) BASOPHILS RELATIVE PERCENT 1 % (BEAKER) (test code = 437) NEUTROPHILS ABSOLUTE COUNT 7.59 K/ L 1.78-5.38 H (BEAKER) (test code = 670) LYMPHOCYTES ABSOLUTE COUNT 1.82 K/ L 1.32-3.57 (BEAKER) (test code = 414) MONOCYTES ABSOLUTE COUNT (BEAKER) 1.03 K/ L 0.30-0.82 H (test code = 415) EOSINOPHILS ABSOLUTE COUNT 0.38 K/ L 0.04-0.54 (BEAKER) (test code = 416) BASOPHILS ABSOLUTE COUNT (BEAKER) 0.05 K/ L 0.01-0.08 (test code = 417) IMMATURE GRANULOCYTES-RELATIVE 1 % 0-1 PERCENT (BEAKER) (test code = 2801) B-TYPE NATRIURETIC FACTOR (BNP)2017-06-07 00:39:00 Test Item Value Reference Range Interpretation Comments B-TYPE NATRIURETIC PEPTIDE (BEAKER) 661 pg/mL 0-100 H (test code = 700) BASIC METABOLIC [id number] 00:34:00 Test Item Value Reference Range Interpretation Comments SODIUM (BEAKER) 138 meq/L 136-145 (test code = 381) POTASSIUM (BEAKER) 4.0 meq/L 3.5-5.1 (test code = 379) CHLORIDE (BEAKER) 105 meq/L 98-107 (test code = 382) CO2 (BEAKER) (test 24 meq/L 22-29 code = 355) BLOOD UREA NITROGEN 29 mg/dL 7-21 H (BEAKER) (test code = 354) CREATININE (BEAKER) 0.81 mg/dL 0.57-1.25 (test code = 358) GLUCOSE RANDOM 156 mg/dL 70-105 H (BEAKER) (test code = 652) CALCIUM (BEAKER) 8.1 mg/dL 8.4-10.2 L (test code = 697) EGFR (BEAKER) (test 92 mL/min/1.73 ESTIMA JOEL GFR IS code = 1092) sq m NOT ACCURATE CREATININE CLEARANCE IN PREDICTING GLOMERULAR FILTRATION RATE . ESTIMATED GFR I S NOT APPLICABLE FOR DIALYSIS PATIEN TS. POCT-GLUCOSE [id number] 23:42:00 Test Item Value Reference Range Interpretation Comments POC-GLUCOSE METER 195 mg/dL 70-[address] [facility] [address] (BEAKER) (test code = [place] 1538) [id number] BASIC METABOLIC [id number] 17:50:00 Test Item Value Reference Range Interpretation Comments SODIUM (BEAKER) 138 meq/L 136-145 (test code = 381) POTASSIUM (BEAKER) 3.9 meq/L 3.5-5.1 (test code = 379) CHLORIDE (BEAKER) 105 meq/L 98-107 (test code = 382) CO2 (BEAKER) (test 25 meq/L 22-29 code = 355) BLOOD UREA NITROGEN 31 mg/dL 7-21 H (BEAKER) (test code = 354) CREATININE (BEAKER) 0.88 mg/dL 0.57-1.25 (test code = 358) GLUCOSE RANDOM 182 mg/dL 70-105 H (BEAKER) (test code = 652) CALCIUM (BEAKER) 8.4 mg/dL 8.4-10.2 (test code = 697) EGFR (BEAKER) (test 83 mL/min/1.73 ESTIMA JOEL GFR IS code = 1092) sq m NOT ACCURATE CREATININE CLEARANCE IN PREDICTING GLOMERULAR FILTRATION RATE . ESTIMATED GFR I S NOT APPLICABLE FOR DIALYSIS PATIEN TS. POCT-GLUCOSE [id number] 17:48:00 Test Item Value Reference Range Interpretation Comments POC-GLUCOSE METER 228 mg/dL 70-[address] [facility] [address] (BEAKER) (test code = [facility] 1538) [id number] POCT-GLUCOSE [id number] 12:03:00 Test Item Value Reference Range Interpretation Comments POC-GLUCOSE METER 237 mg/dL 70-[address] [facility] [address] ([facility]) (test code = [facility] 1538) [id number] BASIC METABOLIC [id number] 09:39:00 Test Item Value Reference Range Interpretation Comments SODIUM (BEAKER) 140 meq/L 136-145 (test code = 381) POTASSIUM (BEAKER) 4.0 meq/L 3.5-5.1 (test code = 379) CHLORIDE (BEAKER) 108 meq/L 98-107 H (test code = 382) CO2 (BEAKER) (test 25 meq/L 22-29 code = 355) BLOOD UREA NITROGEN 33 mg/dL 7-21 H (BEAKER) (test code = 354) CREATININE (BEAKER) 0.88 mg/dL 0.57-1.25 (test code = 358) GLUCOSE RANDOM 184 mg/dL 70-105 H (BEAKER) (test code = 652) CALCIUM (BEAKER) 8.2 mg/dL 8.4-10.2 L (test code = 697) EGFR (BEAKER) (test 83 mL/min/1.73 ESTIMA JOEL GFR IS code = 1092) sq m NOT ACCURATE CREATININE CLEARANCE IN PREDICTING GLOMERULAR FILTRATION RATE . ESTIMATED GFR I S NOT APPLICABLE FOR DIALYSIS PATIEN TS. CALCIUM, [id number] 04:52:00 Test Item Value Reference Range Interpretation Comments CALCIUM IONIZED (BEAKER) (test 1.08 mmol/L 1.12-1.27 L code = 698) PH, BLOOD (BEAKER) (test code = 7.42 1810) [id number] 04:43:00 Test Item Value Reference Range Interpretation Comments PHOSPHORUS (BEAKER) (test code = 3.5 mg/dL 2.3-4.7 604) [id number] 04:43:00 Test Item Value Reference Range Interpretation Comments MAGNESIUM (BEAKER) (test code = 1.8 mg/dL 1.6-2.6 627) LACTIC ACID, VENOUS, WHOLE [id number] 04:34:00 Test Item Value Reference Range Interpretation Comments LACTATE BLOOD VENOUS (2) (BEAKER) 1.6 mmol/L 0.5-2.2 (test code = 2872) Effective 06/10/2015: Units/Reference Range ChangeNew: 0.5-2.2 mmol/L Previous: 5-20 mg/dLRAD, CHEST, 1 VIEW, NON [id number] 04:29:00Reason for exam:- >intubatedShould this be performed at the bedside?->YesFINAL REPORT RAD, CHEST, 1 VIEW, NON DEPT INDICATION: intubated COMPARISON: Prior day's exam TECHNIQUE: Portable frontal view of the chest. IMPRESSION: Lines and tubes stable.Cardiomediastinal silhouette stable.Stable vascular congestion.Stable dense opacification at the left lung base likely reflecting a combination of pleural fluid and adjacent airspace disease.No acute osseous abnormality. Signed: Marci Levine MDReport Verified Date/Time: 06/06/2017 04:29:24 Reading Location: [address] Transitional Reading Room CBC W/PLT COUNT & AUTO [id number] 04:14:00 Test Item Value Reference Range Interpretation Comments WHITE BLOOD CELL COUNT (BEAKER) 10.8 K/ L 3.5-10.5 H (test code = 775) RED BLOOD CELL COUNT (BEAKER) 2.50 M/ L 4.63-6.08 L (test code = 761) HEMOGLOBIN (BEAKER) (test code = 7.6 GM/DL 13.7-17.5 L 410) HEMATOCRIT (BEAKER) (test code = 24.4 % 40.1-51.0 L 411) MEAN CORPUSCULAR VOLUME (BEAKER) 97.6 fL 79.0-92.2 H (test code = 753) MEAN CORPUSCULAR HEMOGLOBIN 30.4 pg 25.7-32.2 (BEAKER) (test code = 751) MEAN CORPUSCULAR HEMOGLOBIN CONC 31.1 GM/DL 32.3-36.5 L (BEAKER) (test code = 752) RED CELL DISTRIBUTION WIDTH 18.1 % 11.6-14.4 H (BEAKER) (test code = 412) PLATELET COUNT (BEAKER) (test 154 K/CU MM 150-450 code = 756) MEAN PLATELET VOLUME (BEAKER) 10.6 fL 9.4-12.4 (test code = 754) NUCLEATED RED BLOOD CELLS 0 /100 WBC 0-0 (BEAKER) (test code = 413) NEUTROPHILS RELATIVE PERCENT 71 % (BEAKER) (test code = 429) LYMPHOCYTES RELATIVE PERCENT 17 % (BEAKER) (test code = 430) MONOCYTES RELATIVE PERCENT 9 % (BEAKER) (test code = 431) EOSINOPHILS RELATIVE PERCENT 3 % (BEAKER) (test code = 432) BASOPHILS RELATIVE PERCENT 0 % (BEAKER) (test code = 437) NEUTROPHILS ABSOLUTE COUNT 7.60 K/ L 1.78-5.38 H (BEAKER) (test code = 670) LYMPHOCYTES ABSOLUTE COUNT 1.79 K/ L 1.32-3.57 (BEAKER) (test code = 414) MONOCYTES ABSOLUTE COUNT (BEAKER) 0.99 K/ L 0.30-0.82 H (test code = 415) EOSINOPHILS ABSOLUTE COUNT 0.30 K/ L 0.04-0.54 (BEAKER) (test code = 416) BASOPHILS ABSOLUTE COUNT (BEAKER) 0.03 K/ L 0.01-0.08 (test code = 417) IMMATURE GRANULOCYTES-RELATIVE 1 % 0-1 PERCENT (BEAKER) (test code = 2801) POCT-GLUCOSE [id number] 04:08:00 Test Item Value Reference Range Interpretation Comments POC-GLUCOSE METER 262 mg/dL 70-110 H TESTED AT [place] [address] ([facility]) (test code = [facility] 1538) [address] POCT-GLUCOSE [id number] 04:08:00 Test Item Value Reference Range Interpretation Comments POC-GLUCOSE METER 288 mg/dL 70-110 H TESTED AT [place] [address] ([facility]) (test code = [facility] 1538) [address] POCT-GLUCOSE [id number] 03:43:00 Test Item Value Reference Range Interpretation Comments POC-GLUCOSE METER 248 mg/dL 70-110 H TESTED AT [place] [address] ([facility]) (test code = [facility] 1538) [address] BASIC METABOLIC [id number] 01:47:00 Test Item Value Reference Range Interpretation Comments SODIUM (BEAKER) 140 meq/L 136-145 (test code = 381) POTASSIUM (BEAKER) 3.9 meq/L 3.5-5.1 (test code = 379) CHLORIDE (BEAKER) 109 meq/L 98-107 H (test code = 382) CO2 (BEAKER) (test 24 meq/L 22-29 code = 355) BLOOD UREA NITROGEN 33 mg/dL 7-21 H (BEAKER) (test code = 354) CREATININE (BEAKER) 0.86 mg/dL 0.57-1.25 (test code = 358) GLUCOSE RANDOM 231 mg/dL 70-105 H (BEAKER) (test code = 652) CALCIUM (BEAKER) 7.9 mg/dL 8.4-10.2 L (test code = 697) EGFR (BEAKER) (test 86 mL/min/1.73 ESTIMA JOEL GFR IS code = 1092) sq m NOT ACCURATE CREATININE CLEARANCE IN PREDICTING GLOMERULAR FILTRATION RATE . ESTIMATED GFR I S NOT APPLICABLE FOR DIALYSIS PATIEN TS. VANCOMYCIN LEVEL, [id number] 21:49:00 Test Item Value Reference Range Interpretation Comments VANCOMYCIN TROUGH (BEAKER) (test 21.4 ug/mL 10.0-20.0 H code = 522) POCT-GLUCOSE [id number] 18:34:00 Test Item Value Reference Range Interpretation Comments POC-GLUCOSE METER 250 mg/dL 70-[address] [facility] [address] (BEAKER) (test code = [facility] [place] 1538) [address] [id number] 18:00:00 Test Item Value Reference Range Interpretation Comments MAGNESIUM (BEAKER) (test code = 1.4 mg/dL 1.6-2.6 L 627) BASIC METABOLIC [id number] 18:00:00 Test Item Value Reference Range Interpretation Comments SODIUM (BEAKER) 143 meq/L 136-145 (test code = 381) POTASSIUM (BEAKER) 3.8 meq/L 3.5-5.1 (test code = 379) CHLORIDE (BEAKER) 110 meq/L 98-107 H (test code = 382) CO2 (BEAKER) (test 26 meq/L 22-29 code = 355) BLOOD UREA NITROGEN 33 mg/dL 7-21 H (BEAKER) (test code = 354) CREATININE (BEAKER) 0.81 mg/dL 0.57-1.25 (test code = 358) GLUCOSE RANDOM 218 mg/dL 70-105 H (BEAKER) (test code = 652) CALCIUM (BEAKER) 8.4 mg/dL 8.4-10.2 (test code = 697) EGFR (BEAKER) (test 92 mL/min/1.73 ESTIMA JOEL GFR IS code = 1092) sq m NOT ACCURATE CREATININE CLEARANCE IN PREDICTING GLOMERULAR FILTRATION RATE . ESTIMATED GFR I S NOT APPLICABLE FOR DIALYSIS PATIEN TS. POCT-GLUCOSE [id number] 11:41:00 Test Item Value Reference Range Interpretation Comments POC-GLUCOSE METER 214 mg/dL 70-[address] [facility] [address] (BEAKER) (test code = [facility] [place] 1538) [address] CREATINE KINASE (CK), TOTAL AND [id number] 10:29:00 Test Item Value Reference Range Interpretation Comments CREATINE KINASE TOTAL (BEAKER) 45 U/L 29-200 (test code = 380) CREATINE KINASE-MB (BEAKER) (test 0.5 ng/mL 0.0-6.6 code = 750) CREATINE KINASE-MB INDEX (BEAKER) 1.1 % (test code = 395) CK-MB Reference Range:<6.7 Normal6.7-10.0 Borderline>10.0 AbnormalBASIC METABOLIC [id number] 10:23:00 Test Item Value Reference Range Interpretation Comments SODIUM (BEAKER) 144 meq/L 136-145 (test code = 381) POTASSIUM (BEAKER) 3.7 meq/L 3.5-5.1 (test code = 379) CHLORIDE (BEAKER) 113 meq/L 98-107 H (test code = 382) CO2 (BEAKER) (test 24 meq/L 22-29 code = 355) BLOOD UREA NITROGEN 33 mg/dL 7-21 H (BEAKER) (test code = 354) CREATININE (BEAKER) 0.81 mg/dL 0.57-1.25 (test code = 358) GLUCOSE RANDOM 205 mg/dL 70-105 H (BEAKER) (test code = 652) CALCIUM (BEAKER) 8.1 mg/dL 8.4-10.2 L (test code = 697) EGFR (BEAKER) (test 92 mL/min/1.73 ESTIMA JOEL GFR IS code = 1092) sq m NOT ACCURATE CREATININE CLEARANCE IN PREDICTING GLOMERULAR FILTRATION RATE . ESTIMATED GFR I S NOT APPLICABLE FOR DIALYSIS PATIEN TS. 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 Mild pulmonary congestion and probable left base atelectasis. No gross effusion or pneumothorax. IMPRESSIONS: No change. ET tube tip probably 1.3 cm from thecarina. Signed: Jerel Noguera Verified Date/Time: 06/05/2017 07:34:54 Reading Location: [facility] Radiology Reading Room POCT-GLUCOSE [id number] 06:35:00 Test Item Value Reference Range Interpretation Comments POC-GLUCOSE METER 209 mg/dL 70-[address] [facility] [address] (BEAKER) (test code = [place] 1538) [address] BLOOD [id number] 06:00:00 Test Item Value Reference Range Interpretation Comments CULTURE (BEAKER) (test No growth in 5 days code = 1095) BLOOD [id number] 06:00:00 Test Item Value Reference Range Interpretation Comments CULTURE (BEAKER) (test No growth in 5 days code = 1095) CREATINE KINASE (CK), TOTAL AND [id number] 05:23:00 Test Item Value Reference Range Interpretation Comments CREATINE KINASE TOTAL (BEAKER) 52 U/L 29-200 (test code = 380) CREATINE KINASE-MB (BEAKER) (test 0.4 ng/mL 0.0-6.6 code = 750) CREATINE KINASE-MB INDEX (BEAKER) 0.8 % (test code = 395) CK-MB Reference Range:<6.7 Normal6.7-10.0 Borderline>10.0 [id number] 05:16:00 Test Item Value Reference Range Interpretation Comments PHOSPHORUS (BEAKER) (test code = 2.9 mg/dL 2.3-4.7 604) [id number] 05:16:00 Test Item Value Reference Range Interpretation Comments MAGNESIUM (BEAKER) (test code = 1.4 mg/dL 1.6-2.6 L 627) BASIC METABOLIC [id number] 05:16:00 Test Item Value Reference Range Interpretation Comments SODIUM (BEAKER) 145 meq/L 136-145 (test code = 381) POTASSIUM (BEAKER) 3.8 meq/L 3.5-5.1 (test code = 379) CHLORIDE (BEAKER) 115 meq/L 98-107 H (test code = 382) CO2 (BEAKER) (test 21 meq/L 22-29 L code = 355) BLOOD UREA NITROGEN 33 mg/dL 7-21 H (BEAKER) (test code = 354) CREATININE (BEAKER) 0.82 mg/dL 0.57-1.25 (test code = 358) GLUCOSE RANDOM 177 mg/dL 70-105 H (BEAKER) (test code = 652) CALCIUM (BEAKER) 8.2 mg/dL 8.4-10.2 L (test code = 697) EGFR (BEAKER) (test 90 mL/min/1.73 ESTIMA JOEL GFR IS code = 1092) sq m NOT ACCURATE CREATININE CLEARANCE IN PREDICTING GLOMERULAR FILTRATION RATE . ESTIMATED GFR I S NOT APPLICABLE FOR DIALYSIS PATIEN TS. CBC W/PLT COUNT & AUTO [id number] 05:08:00 Test Item Value Reference Range Interpretation Comments WHITE BLOOD CELL COUNT (BEAKER) 12.1 K/ L 3.5-10.5 H (test code = 775) RED BLOOD CELL COUNT (BEAKER) 2.66 M/ L 4.63-6.08 L (test code = 761) HEMOGLOBIN (BEAKER) (test code = 8.1 GM/DL 13.7-17.5 L 410) HEMATOCRIT (BEAKER) (test code = 26.5 % 40.1-51.0 L 411) MEAN CORPUSCULAR VOLUME (BEAKER) 99.6 fL 79.0-92.2 H (test code = 753) MEAN CORPUSCULAR HEMOGLOBIN 30.5 pg 25.7-32.2 (BEAKER) (test code = 751) MEAN CORPUSCULAR HEMOGLOBIN CONC 30.6 GM/DL 32.3-36.5 L (BEAKER) (test code = 752) RED CELL DISTRIBUTION WIDTH 19.0 % 11.6-14.4 H (BEAKER) (test code = 412) PLATELET COUNT (BEAKER) (test 142 K/CU MM 150-450 L code = 756) MEAN PLATELET VOLUME (BEAKER) 10.6 fL 9.4-12.4 (test code = 754) NUCLEATED RED BLOOD CELLS 0 /100 WBC 0-0 (BEAKER) (test code = 413) NEUTROPHILS RELATIVE PERCENT 71 % (BEAKER) (test code = 429) LYMPHOCYTES RELATIVE PERCENT 17 % (BEAKER) (test code = 430) MONOCYTES RELATIVE PERCENT 9 % (BEAKER) (test code = 431) EOSINOPHILS RELATIVE PERCENT 3 % (BEAKER) (test code = 432) BASOPHILS RELATIVE PERCENT 0 % (BEAKER) (test code = 437) NEUTROPHILS ABSOLUTE COUNT 8.57 K/ L 1.78-5.38 H (BEAKER) (test code = 670) LYMPHOCYTES ABSOLUTE COUNT 2.01 K/ L 1.32-3.57 (BEAKER) (test code = 414) MONOCYTES ABSOLUTE COUNT (BEAKER) 1.06 K/ L 0.30-0.82 H (test code = 415) EOSINOPHILS ABSOLUTE COUNT 0.35 K/ L 0.04-0.54 (BEAKER) (test code = 416) BASOPHILS ABSOLUTE COUNT (BEAKER) 0.03 K/ L 0.01-0.08 (test code = 417) IMMATURE GRANULOCYTES-RELATIVE 1 % 0-1 PERCENT (BEAKER) (test code = 2801) LACTIC ACID, VENOUS, WHOLE [id number] 05:07:00 Test Item Value Reference Range Interpretation Comments LACTATE BLOOD VENOUS (2) (BEAKER) 1.1 mmol/L 0.5-2.2 (test code = 2872) Effective 06/10/2015: Units/Reference Range ChangeNew: 0.5-2.2 mmol/L Previous: 5-20 mg/dLPOCT-GLUCOSE [id number] 00:49:00 Test Item Value Reference Range Interpretation Comments POC-GLUCOSE METER 205 mg/dL 70-110 H TESTED AT [place] [address] ([facility]) (test code = MIKY [facility] 1538) [address] POCT-GLUCOSE [id number] 17:29:00 Test Item Value Reference Range Interpretation Comments POC-GLUCOSE METER 211 mg/dL 70-110 H TESTED AT [place] [address] ([facility]) (test code = MIKY Marte [facility] 1538) [address] CREATINE KINASE (CK), TOTAL AND [id number] 16:23:00 Test Item Value Reference Range Interpretation Comments CREATINE KINASE TOTAL (BEAKER) 89 U/L 29-200 (test code = 380) CREATINE KINASE-MB (BEAKER) (test 0.8 ng/mL 0.0-6.6 code = 750) CREATINE KINASE-MB INDEX (BEAKER) 0.9 % (test code = 395) CK-MB Reference Range:<6.7 Normal6.7-10.0 Borderline>10.0 AbnormalBASIC METABOLIC [id number] 16:17:00 Test Item Value Reference Range Interpretation Comments SODIUM (BEAKER) 146 meq/L 136-145 H (test code = 381) POTASSIUM (BEAKER) 3.7 meq/L 3.5-5.1 (test code = 379) CHLORIDE (BEAKER) 116 meq/L 98-107 H (test code = 382) CO2 (BEAKER) (test 23 meq/L 22-29 code = 355) BLOOD UREA NITROGEN 33 mg/dL 7-21 H (BEAKER) (test code = 354) CREATININE (BEAKER) 0.80 mg/dL 0.57-1.25 (test code = 358) GLUCOSE RANDOM 170 mg/dL 70-105 H (BEAKER) (test code = 652) CALCIUM (BEAKER) 8.4 mg/dL 8.4-10.2 (test code = 697) EGFR (BEAKER) (test 93 mL/min/1.73 ESTIMA JOEL GFR IS code = 1092) sq m NOT ACCURATE CREATININE CLEARANCE IN PREDICTING GLOMERULAR FILTRATION RATE . ESTIMATED GFR I S NOT APPLICABLE FOR DIALYSIS PATIEN TS. CT, BRAIN, WITHOUT [id number] 15:33:00FINAL REPORT CT Head without contrast CLINICAL [...] MDReport Verified Date/Time: 06/04/2017 15:33:02 Reading Location: [facility] B1 C013V Neuro Reading Room Electronicallysigned by: LISA HARDY M.D. on 06/04/2017 03:33 PMPOCT-GLUCOSE [id number] 13:13:00 Test Item Value Reference Range Interpretation Comments POC-GLUCOSE METER 271 mg/dL 70-[address] [facility] [address] (BEAKER) (test code = [place] 1538) [address] SPUTUM CULTURE + GRAM [id number] 11:40:00 Test Item Value Reference Interpretation Comments Range CULTURE (BEAKER) METHICILLIN A 1+ Methicil gaurav (test code = 1095) RESISTANT resistant STAPHYLOCOCCUS Staphylococcu s AUREUS aureus Clindamycin (test R code = 10) Erythromycin (test R code = 4) Linezolid (test code S = 40) Nitrofurantoin (test S code = 23) Oxacillin (test code R = 14) Rifampin (test code = S 43) Tetracycline (test S code = 2) Trimethoprim + S Sulfamethoxazole (test code = 47) Vancomycin (test code S = 13) GRAM STAIN RESULT 1+ WBCs (BEAKER) (test code = 1123) GRAM STAIN RESULT 0-5 epithelial (BEAKER) (test code = cells 363837) GRAM STAIN RESULT No organisms seen (BEAKER) (test code = 338823) 1+ Normal respiratory melanie presentCREATINE KINASE (CK), TOTAL AND [id number] 09:49:00 Test Item Value Reference Range Interpretation Comments CREATINE KINASE TOTAL (BEAKER) 61 U/L 29-200 (test code = 380) CREATINE KINASE-MB (BEAKER) (test 0.7 ng/mL 0.0-6.6 code = 750) CREATINE KINASE-MB INDEX (BEAKER) 1.1 % (test code = 395) CK-MB Reference Range:<6.7 Normal6.7-10.0 Borderline>10.0 AbnormalBASIC METABOLIC [id number] 09:43:00 Test Item Value Reference Range Interpretation Comments SODIUM (BEAKER) 146 meq/L 136-145 H (test code = 381) POTASSIUM (BEAKER) 3.9 meq/L 3.5-5.1 (test code = 379) CHLORIDE (BEAKER) 117 meq/L 98-107 H (test code = 382) CO2 (BEAKER) (test 22 meq/L 22-29 code = 355) BLOOD UREA NITROGEN 33 mg/dL 7-21 H (BEAKER) (test code = 354) CREATININE (BEAKER) 0.79 mg/dL 0.57-1.25 (test code = 358) GLUCOSE RANDOM 169 mg/dL 70-105 H (BEAKER) (test code = 652) CALCIUM (BEAKER) 8.6 mg/dL 8.4-10.2 (test code = 697) EGFR (BEAKER) (test 94 mL/min/1.73 ESTIMA JOEL GFR IS code = 1092) sq m NOT ACCURATE CREATININE CLEARANCE IN PREDICTING GLOMERULAR FILTRATION RATE . ESTIMATED GFR I S NOT APPLICABLE FOR DIALYSIS PATIEN TS. LACTIC ACID, VENOUS, WHOLE [id number] 09:38:00 Test Item Value Reference Range Interpretation Comments LACTATE BLOOD VENOUS (2) (BEAKER) 0.8 mmol/L 0.5-2.2 (test code = 2872) Effective 06/10/2015: Units/Reference Range ChangeNew: 0.5-2.2 mmol/L Previous: 5-20 mg/dLPOCT-GLUCOSE [id number] 06:06:00 Test Item Value Reference Range Interpretation Comments POC-GLUCOSE METER 133 mg/dL 70-[address] [facility] [address] (BEAKER) (test code = [place] 1538) [address] BLOOD GAS, [id number] 05:21:00 Test Item Value Reference Range Interpretation Comments PH ARTERIAL (BEAKER) (test code = 7.44 7.35-7.45 383) PCO2 ARTERIAL (BEAKER) (test code 33 mmHg 35-45 L = 384) PO2 ARTERIAL (BEAKER) (test code 190 mmHg 80-90 H = 385) O2 SATURATION ARTERIAL (BEAKER) 99.4 % 96.0-97.0 H (test code = 386) HCO3 ARTERIAL (BEAKER) (test code 22 mmol/L = 388) BASE EXCESS ARTERIAL (BEAKER) -1.8 mmol/L -2.0-3.0 (test code = 387) PATIENT TEMPERATURE (BEAKER) 37.5 C (test code = 1818) FIO2 (BEAKER) (test code = 1819) 50.0 % [id number] 05:12:00 Test Item Value Reference Range Interpretation Comments PHOSPHORUS (BEAKER) (test code = 2.9 mg/dL 2.3-4.7 604) [id number] 05:12:00 Test Item Value Reference Range Interpretation Comments MAGNESIUM (BEAKER) (test code = 1.8 mg/dL 1.6-2.6 627) CBC W/PLT COUNT & AUTO [id number] 04:33:00 Test Item Value Reference Range Interpretation Comments WHITE BLOOD CELL COUNT (BEAKER) 11.3 K/ L 3.5-10.5 H (test code = 775) RED BLOOD CELL COUNT (BEAKER) 2.75 M/ L 4.63-6.08 L (test code = 761) HEMOGLOBIN (BEAKER) (test code = 8.3 GM/DL 13.7-17.5 L 410) HEMATOCRIT (BEAKER) (test code = 27.6 % 40.1-51.0 L 411) MEAN CORPUSCULAR VOLUME (BEAKER) 100.4 fL 79.0-92.2 H (test code = 753) MEAN CORPUSCULAR HEMOGLOBIN 30.2 pg 25.7-32.2 (BEAKER) (test code = 751) MEAN CORPUSCULAR HEMOGLOBIN CONC 30.1 GM/DL 32.3-36.5 L (BEAKER) (test code = 752) RED CELL DISTRIBUTION WIDTH 19.9 % 11.6-14.4 H (BEAKER) (test code = 412) PLATELET COUNT (BEAKER) (test 148 K/CU MM 150-450 L code = 756) MEAN PLATELET VOLUME (BEAKER) 10.3 fL 9.4-12.4 (test code = 754) NUCLEATED RED BLOOD CELLS 0 /100 WBC 0-0 (BEAKER) (test code = 413) NEUTROPHILS RELATIVE PERCENT 71 % (BEAKER) (test code = 429) LYMPHOCYTES RELATIVE PERCENT 17 % (BEAKER) (test code = 430) MONOCYTES RELATIVE PERCENT 8 % (BEAKER) (test code = 431) EOSINOPHILS RELATIVE PERCENT 3 % (BEAKER) (test code = 432) BASOPHILS RELATIVE PERCENT 0 % (BEAKER) (test code = 437) NEUTROPHILS ABSOLUTE COUNT 7.99 K/ L 1.78-5.38 H (BEAKER) (test code = 670) LYMPHOCYTES ABSOLUTE COUNT 1.95 K/ L 1.32-3.57 (BEAKER) (test code = 414) MONOCYTES ABSOLUTE COUNT (BEAKER) 0.88 K/ L 0.30-0.82 H (test code = 415) EOSINOPHILS ABSOLUTE COUNT 0.35 K/ L 0.04-0.54 (BEAKER) (test code = 416) BASOPHILS ABSOLUTE COUNT (BEAKER) 0.02 K/ L 0.01-0.08 (test code = 417) IMMATURE GRANULOCYTES-RELATIVE 1 % 0-1 PERCENT (BEAKER) (test code = 2801) RAD, CHEST, 1 VIEW, NON [id number] 04:20:00Reason for exam:->ventedShould this be performed at the bedside?->YesFINAL REPORT [...] evidence of a pneumothorax. Signed: Raoul Patel [facility] Verified Date/Time: 06/04/2017 04:20:06 Reading Location: [address] Reading Room CREATINE KINASE (CK), TOTAL AND [id number] 00:29:00 Test Item Value Reference Range Interpretation Comments CREATINE KINASE TOTAL (BEAKER) 43 U/L 29-200 (test code = 380) CREATINE KINASE-MB (BEAKER) (test 0.6 ng/mL 0.0-6.6 code = 750) CREATINE KINASE-MB INDEX (BEAKER) 1.4 % (test code = 395) CK-MB Reference Range:<6.7 Normal6.7-10.0 Borderline>10.0 AbnormalBASIC METABOLIC [id number] 00:23:00 Test Item Value Reference Range Interpretation Comments SODIUM (BEAKER) 147 meq/L 136-145 H (test code = 381) POTASSIUM (BEAKER) 3.8 meq/L 3.5-5.1 (test code = 379) CHLORIDE (BEAKER) 119 meq/L 98-107 H (test code = 382) CO2 (BEAKER) (test 19 meq/L 22-29 L code = 355) BLOOD UREA NITROGEN 36 mg/dL 7-21 H (BEAKER) (test code = 354) CREATININE (BEAKER) 0.79 mg/dL 0.57-1.25 (test code = 358) GLUCOSE RANDOM 110 mg/dL 70-105 H (BEAKER) (test code = 652) CALCIUM (BEAKER) 8.3 mg/dL 8.4-10.2 L (test code = 697) EGFR (BEAKER) (test 94 mL/min/1.73 ESTIMA JOEL GFR IS code = 1092) sq m NOT ACCURATE CREATININE CLEARANCE IN PREDICTING GLOMERULAR FILTRATION RATE . ESTIMATED GFR I S NOT APPLICABLE FOR DIALYSIS PATIEN TS. POCT-GLUCOSE [id number] 00:06:00 Test Item Value Reference Range Interpretation Comments POC-GLUCOSE METER 116 mg/dL 70-[address] [facility] [address] ([facility]) (test code = [place] 1538) [id number] HEMOGLOBIN AND [id number] 00:01:00 Test Item Value Reference Range Interpretation Comments HEMOGLOBIN (BEAKER) (test code = 7.8 GM/DL 13.7-17.5 L 410) HEMATOCRIT (BEAKER) (test code = 25.1 % 40.1-51.0 L 411) RAD, ABDOMEN/KUB, 1 VIEW [id number] 23:47:00Reason for exam:->s/p corpak placementFINAL REPORT EXAMINATION: SUPINE ABDOMEN CLINICAL INDICATION: FEEDING TUBE PLACEMENT IMPRESSION: Compared with June 02, 2017. Tip of the feeding tube projects over the right upper abdomen in the region of the gastroduodenal junction. Tip of the nasogastric tube projects over the left upper abdomen in the region of the body the stomach. The bowel gas pattern is nonspecific. Signed: Raoul Patel MDReport Verified Date/Time: 06/03/2017 23:47:47 Reading Location: [address] Reading Room BLOOD GAS, [id number] 19:32:00 Test Item Value Reference Range Interpretation Comments PH ARTERIAL (BEAKER) (test code = 7.43 7.35-7.45 383) PCO2 ARTERIAL (BEAKER) (test code 36 mmHg 35-45 = 384) PO2 ARTERIAL (BEAKER) (test code 165 mmHg 80-90 H = 385) O2 SATURATION ARTERIAL (BEAKER) 99.1 % 96.0-97.0 H (test code = 386) HCO3 ARTERIAL (BEAKER) (test code 23 mmol/L 21-29 = 388) BASE EXCESS ARTERIAL (BEAKER) -1.0 mmol/L -2.0-3.0 (test code = 387) PATIENT TEMPERATURE (BEAKER) 37.5 C (test code = 1818) FIO2 (BEAKER) (test code = 1819) 60.0 % RAD, CHEST, 1 VIEW, NON [id number] 17:52:00Reason for exam:- >intubationShould this be performed at the bedside?->YesFINAL REPORT [...] or an underlying left lower lobe pneumonia are difficult to exclude. The heart is enlarged but stable. Stable blunting of the costophrenic sulci isalso again noted. No definite evidence of new lung consolidation or pneumothorax. Signed: Raoul Patel MDReport Verified Date/Time: 06/03/2017 17:52:43 Reading Location: [address] Reading Room POCT-GLUCOSE [id number] 17:46:00 Test Item Value Reference Range Interpretation Comments POC-GLUCOSE METER 134 mg/dL 70-[address] [facility] [address] (AKER) (test code = MI[place] 1538) [id number] CREATINE KINASE (CK), TOTAL AND [id number] 15:27:00 Test Item Value Reference Range Interpretation Comments CREATINE KINASE TOTAL (BEAKER) 67 U/L 29-200 (test code = 380) CREATINE KINASE-MB (BEAKER) (test 0.7 ng/mL 0.0-6.6 code = 750) CREATINE KINASE-MB INDEX (BEAKER) 1.0 % (test code = 395) CK-MB Reference Range:<6.7 Normal6.7-10.0 Borderline>10.0 AbnormalBASIC METABOLIC [id number] 15:20:00 Test Item Value Reference Range Interpretation Comments SODIUM (BEAKER) 148 meq/L 136-145 H (test code = 381) POTASSIUM (BEAKER) 3.6 meq/L 3.5-5.1 (test code = 379) CHLORIDE (BEAKER) 119 meq/L 98-107 H (test code = 382) CO2 (BEAKER) (test 20 meq/L 22-29 L code = 355) BLOOD UREA NITROGEN 41 mg/dL 7-21 H (BEAKER) (test code = 354) CREATININE (BEAKER) 0.82 mg/dL 0.57-1.25 (test code = 358) GLUCOSE RANDOM 180 mg/dL 70-105 H (BEAKER) (test code = 652) CALCIUM (BEAKER) 8.6 mg/dL 8.4-10.2 (test code = 697) EGFR (BEAKER) (test 90 mL/min/1.73 ESTIMA JOEL GFR IS code = 1092) sq m NOT ACCURATE CREATININE CLEARANCE IN PREDICTING GLOMERULAR FILTRATION RATE . ESTIMATED GFR I S NOT APPLICABLE FOR DIALYSIS PATIEN TS. HEPATITIS A [id number] 15:03:00 Test Item Value Reference Range Interpretation Comments HEPATITIS A IGM ANTIBODY (BEAKER) Nonreactive Nonreactive (test code = 498) HEPATITIS A IGG ANTIBODY (BEAKER) Reactive Nonreactive A (test code = 2797) HEMOGLOBIN AND [id number] 15:02:00 Test Item Value Reference Range Interpretation Comments HEMOGLOBIN (BEAKER) (test code = 8.9 GM/DL 13.7-17.5 L 410) HEMATOCRIT (BEAKER) (test code = 29.0 % 40.1-51.0 L 411) BLOOD GAS, [id number] 15:01:00 Test Item Value Reference Range Interpretation Comments PH VENOUS (BEAKER) (test code = 7.43 7.32-7.42 H 701) PCO2 VENOUS (BEAKER) (test code = 35 mmHg 41-51 L 755) PO2 VENOUS (BEAKER) (test code = 35 mmHg 25-40 702) O2 SATURATION VENOUS (BEAKER) 71.0 % 40.0-70.0 H (test code = 703) HCO3 VENOUS (BEAKER) (test code = 23 mmol/L 21-29 705) BASE EXCESS VENOUS (BEAKER) (test -1.4 mmol/L -2.0-3.0 code = 704) PATIENT TEMPERATURE (BEAKER) 36.4 C (test code = 1818) FIO2 (BEAKER) (test code = 1819) 32.0 % HEPATITIS C [id number] 14:58:00 Test Item Value Reference Range Interpretation Comments HEPATITIS C ANTIBODY (BEAKER) Nonreactive Nonreactive (test code = 367) HEPATITIS B [id number] 14:58:00 Test Item Value Reference Range Interpretation Comments HEPATITIS B CORE TOTAL ANTIBODY Nonreactive Nonreactive (BEAKER) (test code = 497) HEPATITIS B SURFACE ANTIBODY 22.2 mIU/mL <8.0 H (BEAKER) (test code = 647) HEPATITIS B SURFACE ANTIGEN (2) Nonreactive Nonreactive (BEAKER) (test code = 2585) POCT-GLUCOSE [id number] 11:57:00 Test Item Value Reference Range Interpretation Comments POC-GLUCOSE METER 228 mg/dL 70-[address] [facility] [address] (BEAKER) (test code = [place] 1538) [id number] BLOOD GAS, [id number] 11:12:00 Test Item Value Reference Range Interpretation Comments PH ARTERIAL (BEAKER) (test code = 7.47 7.35-7.45 H 383) PCO2 ARTERIAL (BEAKER) (test code 28 mmHg 35-45 L = 384) PO2 ARTERIAL (BEAKER) (test code 278 mmHg 80-90 H = 385) O2 SATURATION ARTERIAL (BEAKER) 99.7 % 96.0-97.0 H (test code = 386) HCO3 ARTERIAL (BEAKER) (test code 19 mmol/L 21-29 L = 388) BASE EXCESS ARTERIAL (BEAKER) -3.5 mmol/L -2.0-3.0 L (test code = 387) PATIENT TEMPERATURE (BEAKER) 37.0 C (test code = 1818) FIO2 (BEAKER) (test code = 1819) 40.0 % HEMOGLOBIN [id number] 10:39:00 Test Item Value Reference Range Interpretation Comments HEMOGLOBIN A1C (BEAKER) (test code = 5.5 % 4.3-6.1 368) CREATINE KINASE (CK), TOTAL AND [id number] 08:26:00 Test Item Value Reference Range Interpretation Comments CREATINE KINASE TOTAL (BEAKER) 72 U/L 29-200 (test code = 380) CREATINE KINASE-MB (BEAKER) (test 0.9 ng/mL 0.0-6.6 code = 750) CREATINE KINASE-MB INDEX (BEAKER) 1.3 % (test code = 395) CK-MB Reference Range:<6.7 Normal6.7-10.0 Borderline>10.0 AbnormalBASIC METABOLIC [id number] 08:20:00 Test Item Value Reference Range Interpretation Comments SODIUM (BEAKER) 145 meq/L 136-145 (test code = 381) POTASSIUM (BEAKER) 4.0 meq/L 3.5-5.1 (test code = 379) CHLORIDE (BEAKER) 119 meq/L 98-107 H (test code = 382) CO2 (BEAKER) (test 20 meq/L 22-29 L code = 355) BLOOD UREA NITROGEN 48 mg/dL 7-21 H (BEAKER) (test code = 354) CREATININE (BEAKER) 0.93 mg/dL 0.57-1.25 (test code = 358) GLUCOSE RANDOM 280 mg/dL 70-105 H (BEAKER) (test code = 652) CALCIUM (BEAKER) 8.3 mg/dL 8.4-10.2 L (test code = 697) EGFR (BEAKER) (test 78 mL/min/1.73 ESTIMA JOEL GFR IS code = 1092) sq m NOT ACCURATE CREATININE CLEARANCE IN PREDICTING GLOMERULAR FILTRATION RATE . ESTIMATED GFR I S NOT APPLICABLE FOR DIALYSIS PATIEN TS. RAD, CHEST, 1 VIEW, NON [id number] 08:05:00Reason for exam:->ventedShould this be performed at the bedside?->YesFINAL REPORT Chest, one view. HISTORY: Vented COMPARISON: 06/02/2017 IMPRESSION: Supporting hardware unchanged in position. Mild interstitial edema. Unchanged enlargement of the cardiomediastinal silhouette. Trace left pleural effusion. No identifiable pneumothorax. Signed: Venu Holmaneport Verified Date/Time: 06/03/2017 08:05:13 Reading Location: [place] [id number] CT Body Reading Room GLOBIN AND [id number] 07:52:00 Test Item Value Reference Range Interpretation Comments HEMOGLOBIN (BEAKER) (test code = 8.7 GM/DL 13.7-17.5 L 410) HEMATOCRIT (BEAKER) (test code = 27.6 % 40.1-51.0 L 411) POCT-GLUCOSE [id number] 06:48:00 Test Item Value Reference Range Interpretation Comments POC-GLUCOSE METER 281 mg/dL 70-[address] [facility] [address] (BEAKER) (test code = MIKY Marte [facility] 1538) [address] BLOOD GAS, [id number] 05:52:00 Test Item Value Reference Range Interpretation Comments PH ARTERIAL (BEAKER) (test code = 7.43 7.35-7.45 383) PCO2 ARTERIAL (BEAKER) (test code 32 mmHg 35-45 L = 384) PO2 ARTERIAL (BEAKER) (test code 154 mmHg 80-90 H = 385) O2 SATURATION ARTERIAL (BEAKER) 99.1 % 96.0-97.0 H (test code = 386) HCO3 ARTERIAL (BEAKER) (test code 21 mmol/L 21-29 = 388) BASE EXCESS ARTERIAL (BEAKER) -2.9 mmol/L -2.0-3.0 L (test code = 387) PATIENT TEMPERATURE (BEAKER) 37.0 C (test code = 1818) FIO2 (BEAKER) (test code = 1819) 40.0 % BASIC METABOLIC [id number] 05:47:00 Test Item Value Reference Range Interpretation Comments SODIUM (BEAKER) 147 meq/L 136-145 H (test code = 381) POTASSIUM (BEAKER) 4.4 meq/L 3.5-5.1 (test code = 379) CHLORIDE (BEAKER) 122 meq/L 98-107 H (test code = 382) CO2 (BEAKER) (test 17 meq/L 22-29 L code = 355) BLOOD UREA NITROGEN 50 mg/dL 7-21 H (BEAKER) (test code = 354) CREATININE (BEAKER) 0.88 mg/dL 0.57-1.25 (test code = 358) GLUCOSE RANDOM 259 mg/dL 70-105 H (BEAKER) (test code = 652) CALCIUM (BEAKER) 8.3 mg/dL 8.4-10.2 L (test code = 697) EGFR (BEAKER) (test 83 mL/min/1.73 ESTIMA JOEL GFR IS code = 1092) sq m NOT ACCURATE CREATININE CLEARANCE IN PREDICTING GLOMERULAR FILTRATION RATE . ESTIMATED GFR I S NOT APPLICABLE FOR DIALYSIS PATIEN TS. CBC W/PLT COUNT & AUTO [id number] 05:40:00 Test Item Value Reference Range Interpretation Comments WHITE BLOOD CELL COUNT (BEAKER) 10.1 K/ L 3.5-10.5 (test code = 775) RED BLOOD CELL COUNT (BEAKER) 2.76 M/ L 4.63-6.08 L (test code = 761) HEMOGLOBIN (BEAKER) (test code = 8.5 GM/DL 13.7-17.5 L 410) HEMATOCRIT (BEAKER) (test code = 27.0 % 40.1-51.0 L 411) MEAN CORPUSCULAR VOLUME (BEAKER) 97.8 fL 79.0-92.2 H (test code = 753) MEAN CORPUSCULAR HEMOGLOBIN 30.8 pg 25.7-32.2 (BEAKER) (test code = 751) MEAN CORPUSCULAR HEMOGLOBIN CONC 31.5 GM/DL 32.3-36.5 L (BEAKER) (test code = 752) RED CELL DISTRIBUTION WIDTH 20.3 % 11.6-14.4 H (BEAKER) (test code = 412) PLATELET COUNT (BEAKER) (test 145 K/CU MM 150-450 L code = 756) MEAN PLATELET VOLUME (BEAKER) 10.8 fL 9.4-12.4 (test code = 754) NUCLEATED RED BLOOD CELLS 1 /100 WBC 0-0 H (BEAKER) (test code = 413) NEUTROPHILS RELATIVE PERCENT 72 % (BEAKER) (test code = 429) LYMPHOCYTES RELATIVE PERCENT 15 % (BEAKER) (test code = 430) MONOCYTES RELATIVE PERCENT 9 % (BEAKER) (test code = 431) EOSINOPHILS RELATIVE PERCENT 3 % (BEAKER) (test code = 432) BASOPHILS RELATIVE PERCENT 0 % (BEAKER) (test code = 437) NEUTROPHILS ABSOLUTE COUNT 7.23 K/ L 1.78-5.38 H (BEAKER) (test code = 670) LYMPHOCYTES ABSOLUTE COUNT 1.55 K/ L 1.32-3.57 (BEAKER) (test code = 414) MONOCYTES ABSOLUTE COUNT (BEAKER) 0.92 K/ L 0.30-0.82 H (test code = 415) EOSINOPHILS ABSOLUTE COUNT 0.29 K/ L 0.04-0.54 (BEAKER) (test code = 416) BASOPHILS ABSOLUTE COUNT (BEAKER) 0.02 K/ L 0.01-0.08 (test code = 417) IMMATURE GRANULOCYTES-RELATIVE 1 % 0-1 PERCENT (BEAKER) (test code = 2801) [id number] 05:37:00 Test Item Value Reference Range Interpretation Comments PHOSPHORUS (BEAKER) (test code = 2.5 mg/dL 2.3-4.7 604) [id number] 05:37:00 Test Item Value Reference Range Interpretation Comments MAGNESIUM (BEAKER) (test code = 1.8 mg/dL 1.6-2.6 627) BASIC METABOLIC [id number] 00:57:00 Test Item Value Reference Range Interpretation Comments SODIUM (BEAKER) 146 meq/L 136-145 H (test code = 381) POTASSIUM (BEAKER) 4.3 meq/L 3.5-5.1 (test code = 379) CHLORIDE (BEAKER) 121 meq/L 98-107 H (test code = 382) CO2 (BEAKER) (test 21 meq/L 22-29 L code = 355) BLOOD UREA NITROGEN 52 mg/dL 7-21 H (BEAKER) (test code = 354) CREATININE (BEAKER) 0.90 mg/dL 0.57-1.25 (test code = 358) GLUCOSE RANDOM 265 mg/dL 70-105 H (BEAKER) (test code = 652) CALCIUM (BEAKER) 8.2 mg/dL 8.4-10.2 L (test code = 697) EGFR (BEAKER) (test 81 mL/min/1.73 ESTIMA JOEL GFR IS code = 1092) sq m NOT ACCURATE CREATININE CLEARANCE IN PREDICTING GLOMERULAR FILTRATION RATE . ESTIMATED GFR I S NOT APPLICABLE FOR DIALYSIS PATIEN TS. CREATINE KINASE (CK), TOTAL AND [id number] 00:55:00 Test Item Value Reference Range Interpretation Comments CREATINE KINASE TOTAL (BEAKER) 61 U/L 29-200 (test code = 380) CREATINE KINASE-MB (BEAKER) (test 0.8 ng/mL 0.0-6.6 code = 750) CREATINE KINASE-MB INDEX (BEAKER) 1.3 % (test code = 395) CK-MB Reference Range:<6.7 Normal6.7-10.0 Borderline>10.0 AbnormalHEMOGLOBIN AND [id number] 00:39:00 Test Item Value Reference Range Interpretation Comments HEMOGLOBIN (BEAKER) (test code = 8.2 GM/DL 13.7-17.5 L 410) HEMATOCRIT (BEAKER) (test code = 25.8 % 40.1-51.0 L 411) POCT-GLUCOSE [id number] 00:38:00 Test Item Value Reference Range Interpretation Comments POC-GLUCOSE METER 289 mg/dL 70-[address] [facility] 67[address] (BEAKER) (test code = [place] 1538) [id number] BASIC METABOLIC [id number] 19:04:00 Test Item Value Reference Range Interpretation Comments SODIUM (BEAKER) 148 meq/L 136-145 H (test code = 381) POTASSIUM (BEAKER) 3.7 meq/L 3.5-5.1 (test code = 379) CHLORIDE (BEAKER) 120 meq/L 98-107 H (test code = 382) CO2 (BEAKER) (test 19 meq/L 22-29 L code = 355) BLOOD UREA NITROGEN 54 mg/dL 7-21 H (BEAKER) (test code = 354) CREATININE (BEAKER) 0.93 mg/dL 0.57-1.25 (test code = 358) GLUCOSE RANDOM 203 mg/dL 70-105 H (BEAKER) (test code = 652) CALCIUM (BEAKER) 8.5 mg/dL 8.4-10.2 (test code = 697) EGFR (BEAKER) (test 78 mL/min/1.73 ESTIMA JOEL GFR IS code = 1092) sq m NOT ACCURATE CREATININE CLEARANCE IN PREDICTING GLOMERULAR FILTRATION RATE . ESTIMATED GFR I S NOT APPLICABLE FOR DIALYSIS PATIEN TS. POCT-GLUCOSE [id number] 17:54:00 Test Item Value Reference Range Interpretation Comments POC-GLUCOSE METER 185 mg/dL 70-[address] [facility] [address] ([facility]) (test code = BALAOR Estuardo [employer] [place] 1538) [id number] POCT-GLUCOSE [id number] 17:06:00 Test Item Value Reference Range Interpretation Comments POC-GLUCOSE METER 171 mg/dL 70-[address] [facility] [address] ([facility]) (test code = [facility] 1538) [address] CREATINE KINASE (CK), TOTAL AND [id number] 16:32:00 Test Item Value Reference Range Interpretation Comments CREATINE KINASE TOTAL (BEAKER) 77 U/L 29-200 (test code = 380) CREATINE KINASE-MB (BEAKER) (test 0.7 ng/mL 0.0-6.6 code = 750) CREATINE KINASE-MB INDEX (BEAKER) 0.9 % (test code = 395) CK-MB Reference Range:<6.7 Normal6.7-10.0 Borderline>10.0 AbnormalBASIC METABOLIC [id number] 16:28:00 Test Item Value Reference Range Interpretation Comments SODIUM (BEAKER) 149 meq/L 136-145 H (test code = 381) POTASSIUM (BEAKER) 3.4 meq/L 3.5-5.1 L (test code = 379) CHLORIDE (BEAKER) 121 meq/L 98-107 H (test code = 382) CO2 (BEAKER) (test 19 meq/L 22-29 L code = 355) BLOOD UREA NITROGEN 58 mg/dL 7-21 H (BEAKER) (test code = 354) CREATININE (BEAKER) 0.94 mg/dL 0.57-1.25 (test code = 358) GLUCOSE RANDOM 173 mg/dL 70-105 H (BEAKER) (test code = 652) CALCIUM (BEAKER) 8.4 mg/dL 8.4-10.2 (test code = 697) EGFR (BEAKER) (test 77 mL/min/1.73 ESTIMA JOEL GFR IS code = 1092) sq m NOT ACCURATE CREATININE CLEARANCE IN PREDICTING GLOMERULAR FILTRATION RATE . ESTIMATED GFR I S NOT APPLICABLE FOR DIALYSIS PATIEN TS. POCT-GLUCOSE [id number] 16:24:00 Test Item Value Reference Range Interpretation Comments POC-GLUCOSE METER 172 mg/dL 70-[address] [facility] [address] ([facility]) (test code = MIKY Marte [place] 1538) [id number] POCT-GLUCOSE [id number] 15:30:00 Test Item Value Reference Range Interpretation Comments POC-GLUCOSE METER 192 mg/dL 70-[address] [facility] 67 ([facility]) (test code = MIKY Marte [facility] [place] 1538) [address] URINE [id number] 14:28:00 Test Item Value Reference Range Interpretation Comments CULTURE ([facility]) (test code = 1095) No growth POCT-GLUCOSE [id number] 14:10:00 Test Item Value Reference Range Interpretation Comments POC-GLUCOSE METER 183 mg/dL 70-110 H TESTED AT [place] [address] ([facility]) (test code = MIKY Marte [place] 1538) [address] POCT-GLUCOSE [id number] 14:10:00 Test Item Value Reference Range Interpretation Comments POC-GLUCOSE METER 191 mg/dL 70-110 H TESTED AT [place] [address] ([facility]) (test code = MIKY Marte [place] 1538) [address] RAD, ABDOMEN/KUB, 1 VIEW [id number] 13:03:00Reason for exam:->dobbhoff tube placementFINAL REPORT Abdomen one view INDICATION: Dobbhoff tube placement COMPARISON:05/30/2017 IMPRESSION: Feeding tube tip extends to the distal stomach. Suggest advancing. The bowel gas pattern is nonspecific. Cholecystectomy clips, degenerative spine changes, and vascular calcifications and stents are noted. The imaged lower chest is similar to earlier today. Signed: Tanisha Montalvo MDReport Verified Date/Time: 06/02/2017 13:03:48 Reading Location: [facility] Radiology Reading Room POCT- GLUCOSE [id number] 11:56:00 Test Item Value Reference Range Interpretation Comments POC-GLUCOSE METER 123 mg/dL 70-[address] [facility] 67[address] ([facility]) (test code = MIKY [place]AN [place] 1538) [id number] POCT-GLUCOSE [id number] 10:58:00 Test Item Value Reference Range Interpretation Comments POC-GLUCOSE METER 206 mg/dL 70-[address] [facility] 67[address] ([facility]) (test code = MIKY KAN [place] 1538) [id number] HEMOGLOBIN AND [id number] 10:38:00 Test Item Value Reference Range Interpretation Comments HEMOGLOBIN (BEAKER) (test code = 8.9 GM/DL 13.7-17.5 L 410) HEMATOCRIT (BEAKER) (test code = 28.7 % 40.1-51.0 L 411) [id number] 09:04:00 Test Item Value Reference Range Interpretation Comments GLUCOSE RANDOM (BEAKER) (test code 230 mg/dL 70-105 H = 652) CREATINE KINASE (CK), TOTAL AND [id number] 08:55:00 Test Item Value Reference Range Interpretation Comments CREATINE KINASE TOTAL (BEAKER) 96 U/L 29-200 (test code = 380) CREATINE KINASE-MB (BEAKER) (test 1.0 ng/mL 0.0-6.6 code = 750) CREATINE KINASE-MB INDEX (BEAKER) 1.0 % (test code = 395) CK-MB Reference Range:<6.7 Normal6.7-10.0 Borderline>10.0 AbnormalTROPONIN [id number] 08:55:00 Test Item Value Reference Range Interpretation Comments TROPONIN I (BEAKER) (test code = 0.10 ng/mL 0.00-0.03 H 397) Troponin I (TnI) levels must be interpreted [...] failure, acidosis, acute neurological disease, and persistent tachyarrhythmia.[id number] 08:42:00 Test Item Value Reference Range Interpretation Comments AMMONIA (BEAKER) (test code = 348) 52 mol/L 18-72 POCT-GLUCOSE [id number] 06:16:00 Test Item Value Reference Range Interpretation Comments POC-GLUCOSE METER 213 mg/dL 70-[address] [facility] 67[address] (BEAKER) (test code = MIKY [place] 1538) [id number] BLOOD GAS, [id number] 05:52:00 Test Item Value Reference Range Interpretation Comments PH ARTERIAL (BEAKER) (test code = 7.46 7.35-7.45 H 383) PCO2 ARTERIAL (BEAKER) (test code 32 mmHg 35-45 L = 384) PO2 ARTERIAL (BEAKER) (test code 110 mmHg 80-90 H = 385) O2 SATURATION ARTERIAL (BEAKER) 98.4 % 96.0-97.0 H (test code = 386) HCO3 ARTERIAL (BEAKER) (test code 22 mmol/L 21-29 = 388) BASE EXCESS ARTERIAL (BEAKER) -1.1 mmol/L -2.0-3.0 (test code = 387) PATIENT TEMPERATURE (BEAKER) 36.5 C (test code = 1818) FIO2 (BEAKER) (test code = 1819) 40.0 % COMPREHENSIVE METABOLIC [id number] 05:41:00 Test Item Value Reference Range Interpretation Comments TOTAL PROTEIN 5.8 gm/dL 6.0-8.3 L (BEAKER) (test code = 770) ALBUMIN (BEAKER) 3.1 g/dL 3.5-5.0 L (test code = 1145) ALKALINE PHOSPHATASE 53 U/L 40-150 (BEAKER) (test code = 346) BILIRUBIN TOTAL 0.6 mg/dL 0.2-1.2 (BEAKER) (test code = 377) SODIUM (BEAKER) (test 154 meq/L 136-145 H code = 381) POTASSIUM (BEAKER) 3.2 meq/L 3.5-5.1 L (test code = 379) CHLORIDE (BEAKER) 123 meq/L 98-107 H (test code = 382) CO2 (BEAKER) (test 21 meq/L 22-29 L code = 355) BLOOD UREA NITROGEN 73 mg/dL 7-21 H (BEAKER) (test code = 354) CREATININE (BEAKER) 1.10 mg/dL 0.57-1.25 (test code = 358) GLUCOSE RANDOM 183 mg/dL 70-105 H (BEAKER) (test code = 652) CALCIUM (BEAKER) 8.6 mg/dL 8.4-10.2 (test code = 697) AST (SGOT) (BEAKER) 37 U/L 5-34 H (test code = 353) ALT (SGPT) (BEAKER) 22 U/L 6-55 (test code = 347) EGFR (BEAKER) (test 64 mL/min/1.73 ESTIMA JOEL GFR IS code = 1092) sq m NOT ACCURATE CREATININE CLEARANCE IN PREDICTING GLOMERULAR FILTRATION RATE . ESTIMATED GFR I S NOT APPLICABLE FOR DIALYSIS PATIEN TS. [id number] 05:35:00 Test Item Value Reference Range Interpretation Comments PHOSPHORUS (BEAKER) (test code = 2.7 mg/dL 2.3-4.7 604) [id number] 05:35:00 Test Item Value Reference Range Interpretation Comments MAGNESIUM (BEAKER) (test code = 2.0 mg/dL 1.6-2.6 627) CBC W/PLT COUNT & AUTO [id number] 05:23:00 Test Item Value Reference Range Interpretation Comments WHITE BLOOD CELL COUNT (BEAKER) 9.5 K/ L 3.5-10.5 (test code = 775) RED BLOOD CELL COUNT (BEAKER) 2.79 M/ L 4.63-6.08 L (test code = 761) HEMOGLOBIN (BEAKER) (test code = 8.7 GM/DL 13.7-17.5 L 410) HEMATOCRIT (BEAKER) (test code = 26.9 % 40.1-51.0 L 411) MEAN CORPUSCULAR VOLUME (BEAKER) 96.4 fL 79.0-92.2 H (test code = 753) MEAN CORPUSCULAR HEMOGLOBIN 31.2 pg 25.7-32.2 (BEAKER) (test code = 751) MEAN CORPUSCULAR HEMOGLOBIN CONC 32.3 GM/DL 32.3-36.5 (BEAKER) (test code = 752) RED CELL DISTRIBUTION WIDTH 20.8 % 11.6-14.4 H (BEAKER) (test code = 412) PLATELET COUNT (BEAKER) (test 149 K/CU MM 150-450 L code = 756) MEAN PLATELET VOLUME (BEAKER) 9.8 fL 9.4-12.4 (test code = 754) NUCLEATED RED BLOOD CELLS 2 /100 WBC 0-0 H (BEAKER) (test code = 413) NEUTROPHILS RELATIVE PERCENT 63 % (BEAKER) (test code = 429) LYMPHOCYTES RELATIVE PERCENT 23 % (BEAKER) (test code = 430) MONOCYTES RELATIVE PERCENT 10 % (BEAKER) (test code = 431) EOSINOPHILS RELATIVE PERCENT 3 % (BEAKER) (test code = 432) BASOPHILS RELATIVE PERCENT 0 % (BEAKER) (test code = 437) NEUTROPHILS ABSOLUTE COUNT 5.95 K/ L 1.78-5.38 H (BEAKER) (test code = 670) LYMPHOCYTES ABSOLUTE COUNT 2.19 K/ L 1.32-3.57 (BEAKER) (test code = 414) MONOCYTES ABSOLUTE COUNT (BEAKER) 0.95 K/ L 0.30-0.82 H (test code = 415) EOSINOPHILS ABSOLUTE COUNT 0.28 K/ L 0.04-0.54 (BEAKER) (test code = 416) BASOPHILS ABSOLUTE COUNT (BEAKER) 0.03 K/ L 0.01-0.08 (test code = 417) IMMATURE GRANULOCYTES-RELATIVE 1 % 0-1 PERCENT (BEAKER) (test code = 2801) RAD, CHEST, 1 VIEW, NON [id number] 04:41:00Reason for exam:->ventedShould this be performed at the bedside?->YesFINAL REPORT [...] no significant interval change. Signed: Raoul Patel Verified Date/Time: 06/02/2017 04:41:51 Reading Location: [address] Reading Room CREATINE KINASE (CK), TOTAL AND [id number] 01:02:00 Test Item Value Reference Range Interpretation Comments CREATINE KINASE TOTAL ([facility]) 109 U/L 29-200 (test code = 380) CREATINE KINASE-MB ([facility]) (test 1.0 ng/mL 0.0-6.6 code = 750) CREATINE KINASE-MB INDEX ([facility]) 0.9 % (test code = 395) CK-MB Reference Range:<6.7 Normal6.7-10.0 Borderline>10.0 AbnormalTROPONIN [id number] 01:02:00 Test Item Value Reference Range Interpretation Comments TROPONIN I ([facility]) (test code = 0.10 ng/mL 0.00-0.03 H 397) Troponin I (TnI) levels must be interpreted [...] acidosis, acute neurological disease, and persistent tachyarrhythmia.POCT-GLUCOSE [id number] 00:25:00 Test Item Value Reference Range Interpretation Comments POC-GLUCOSE METER 234 mg/dL 70-[address] [facility] [address] ([facility]) (test code = MIKY [place] 1538) [id number] 22:40:00 Test Item Value Reference Range Interpretation Comments MAGNESIUM ([facility]) (test code = 2.0 mg/dL 1.6-2.6 627) PROTHROMBIN [id number] 22:34:00 Test Item Value Reference Range Interpretation Comments PROTIME ([facility]) (test code = 18.0 seconds 11.7-14.7 H 759) INR ([facility]) (test code = 370) 1.5 <=5.9 RECOMMENDED COUMADIN/WARFARIN INR THERAPY RANGESSTANDARD DOSE: 2.0 - 3.0 Includes: PROPHYLAXIS forvenous thrombosis, systemic embolization; TREATMENT for venous thrombosis and/or pulmonary embolus.HIGH RISK: Target INR is 2.5-3.5 for patients with mechanical heart valves.HEMOGLOBIN AND [id number] 22:27:00 Test Item Value Reference Range Interpretation Comments HEMOGLOBIN (BEAKER) (test code = 8.3 GM/DL 13.7-17.5 L 410) HEMATOCRIT (BEAKER) (test code = 25.9 % 40.1-51.0 L 411) POCT-GLUCOSE [id number] 18:46:00 Test Item Value Reference Range Interpretation Comments POC-GLUCOSE METER 318 mg/dL 70-110 H Notified R Delgado MD/TESTED (BEAKER) (test code = AT [facility] [address] [facility] 1538) [facility] 7[address] CREATINE KINASE (CK), TOTAL AND [id number] 18:06:00 Test Item Value Reference Range Interpretation Comments CREATINE KINASE TOTAL (BEAKER) 155 U/L 29-200 (test code = 380) CREATINE KINASE-MB (BEAKER) (test 1.2 ng/mL 0.0-6.6 code = 750) CREATINE KINASE-MB INDEX (BEAKER) 0.8 % (test code = 395) CK-MB Reference Range:<6.7 Normal6.7-10.0 Borderline>10.0 AbnormalTROPONIN [id number] 18:06:00 Test Item Value Reference Range Interpretation Comments TROPONIN I (BEAKER) (test code = 0.15 ng/mL 0.00-0.03 H 397) Troponin I (TnI) levels must be interpreted [...] acute neurological disease, and persistent tachyarrhythmia.HEMOGLOBIN AND [id number] 17:41:00 Test Item Value Reference Range Interpretation Comments HEMOGLOBIN (BEAKER) (test code = 8.7 GM/DL 13.7-17.5 L 410) HEMATOCRIT (BEAKER) (test code = 27.0 % 40.1-51.0 L 411) RAD, CHEST, 1 VIEW, NON [id number] 17:39:00Reason for exam:->central line placement Should this be performed at the bedside?->YesFINAL REPORT AP view of the chest dated 06/01/2017 COMPARISON: June 01, 2009 18 CLINICAL INFORMATION: central line placement Comment: Since prior examination, there is intervalplacement of a right IJ central venous catheter. No pneumothorax is noted. No other changes are seenin the chest. Signed: Eden Carias MDReport Verified Date/Time: 06/01/2017 17:39:56 Reading Location: [address] Consult Reading Room BASI METABOLIC [id number] 13:20:00 Test Item Value Reference Range Interpretation Comments SODIUM (BEAKER) 155 meq/L 136-145 H (test code = 381) POTASSIUM (BEAKER) 3.6 meq/L 3.5-5.1 (test code = 379) CHLORIDE (BEAKER) 126 meq/L 98-107 H (test code = 382) CO2 (BEAKER) (test 19 meq/L 22-29 L code = 355) BLOOD UREA NITROGEN 99 mg/dL 7-21 H (BEAKER) (test code = 354) CREATININE (BEAKER) 1.20 mg/dL 0.57-1.25 (test code = 358) GLUCOSE RANDOM 167 mg/dL 70-105 H (BEAKER) (test code = 652) CALCIUM (BEAKER) 8.5 mg/dL 8.4-10.2 (test code = 697) EGFR (BEAKER) (test 58 mL/min/1.73 ESTIMA JOEL GFR IS code = 1092) sq m NOT ACCURATE CREATININE CLEARANCE IN PREDICTING GLOMERULAR FILTRATION RATE . ESTIMATED GFR I S NOT APPLICABLE FOR DIALYSIS PATIEN TS. TROPONIN [id number] 13:20:00 Test Item Value Reference Range Interpretation Comments TROPONIN I (BEAKER) (test code = 0.18 ng/mL 0.00-0.03 H 397) Troponin I (TnI) levels must be interpreted [...] and persistent tachyarrhythmia.CREATINE KINASE (CK), TOTAL AND MB 2017-06-01 12:59:00 Test Item Value Reference Range Interpretation Comments CREATINE KINASE TOTAL (BEAKER) 192 U/L 29-200 (test code = 380) CREATINE KINASE-MB (BEAKER) (test 1.2 ng/mL 0.0-6.6 code = 750) CREATINE KINASE-MB INDEX (BEAKER) 0.6 % (test code = 395) CK-MB Reference Range:<6.7 Normal6.7-10.0 Borderline>10.0 AbnormalLACTIC ACID, VENOUS, WHOLE [id number] 12:45:00 Test Item Value Reference Range Interpretation Comments LACTATE BLOOD VENOUS (2) (BEAKER) 0.8 mmol/L 0.5-2.2 (test code = 2872) Effective 06/10/2015: Units/Reference Range ChangeNew: 0.5-2.2 mmol/L Previous: 5-20 mg/dLPT/[id number] 12:29:00 Test Item Value Reference Range Interpretation Comments PROTIME (BEAKER) (test code = 21.1 seconds 11.7-14.7 H 759) INR (BEAKER) (test code = 370) 1.8 <=5.9 PARTIAL THROMBOPLASTIN TIME 38.1 seconds 22.5-36.0 H (BEAKER) (test code = 760) RECOMMENDED COUMADIN/WARFARIN INR THERAPY RANGESSTANDARD DOSE: 2.0 - 3.0 Includes: PROPHYLAXIS forvenous thrombosis, systemic embolization; TREATMENT for venous thrombosis and/or pulmonary embolus.HIGH RISK: Target INR is 2.5-3.5 for patients with mechanical heart valves.POCT-GLUCOSE [id number] 12:28:00 Test Item Value Reference Range Interpretation Comments POC-GLUCOSE METER 180 mg/dL 70-[address] [facility] [address] (BEAKER) (test code = MIKY NAJERA 3441) [address] BLOOD GAS, [id number] 12:24:00 Test Item Value Reference Range Interpretation Comments PH ARTERIAL (BEAKER) (test code = 7.49 7.35-7.45 H 383) PCO2 ARTERIAL (BEAKER) (test code 27 mmHg 35-45 L = 384) PO2 ARTERIAL (BEAKER) (test code 100 mmHg 80-90 H = 385) O2 SATURATION ARTERIAL (BEAKER) 98.1 % 96.0-97.0 H (test code = 386) HCO3 ARTERIAL (BEAKER) (test code 20 mmol/L 21-29 L = 388) BASE EXCESS ARTERIAL (BEAKER) -2.8 mmol/L -2.0-3.0 L (test code = 387) PATIENT TEMPERATURE (BEAKER) 36.6 C (test code = 1818) FIO2 (BEAKER) (test code = 1819) 40.0 % HEMOGLOBIN AND [id number] 12:20:00 Test Item Value Reference Range Interpretation Comments HEMOGLOBIN (BEAKER) (test code = 7.4 GM/DL 13.7-17.5 L 410) HEMATOCRIT (BEAKER) (test code = 23.2 % 40.1-51.0 L 411) POCT-GLUCOSE [id number] 11:20:00 Test Item Value Reference Range Interpretation Comments POC-GLUCOSE METER 113 mg/dL 70-[address] [facility] [address] ([facility]) (test code = MIKY Marte [facility] 1538) [address] POCT-GLUCOSE [id number] 11:20:00 Test Item Value Reference Range Interpretation Comments POC-GLUCOSE METER 73 mg/dL 70-110 TESTED AT [place] [address] ([facility]) (test code = MIKY Marte [facility] [address] 1538) RAD, CHEST, 1 VIEW, NON [id number] 08:21:00Reason for exam:->acess for pulmonary edemaShould this be performed at the bedside?->YesFINAL REPORT Chest one view INDICATION: Pulmonary edema COMPARISON: 05/31/2017IMPRESSION: Support devices are stable. Median sternotomy changes and a pacemaker are noted. The cardiac silhouette is enlarged. There are low lung volumes with pulmonary vascular congestion and mild interstitial edema. Left retrocardiac consolidation or atelectasis is stable with an adjacent pleural e ffusion. Stable right basilar opacity may reflect atelectasis or mild pneumonitis. No pneumothorax is seen. Signed: Tanisha Montalvo MDReport Verified Date/Time: 06/01/2017 08:21:22 Reading Location: [facility] Radiology Reading Room POCT-GLUCOSE [id number] 07:34:00 Test Item Value Reference Range Interpretation Comments POC-GLUCOSE METER 126 mg/dL 70-110 H TESTED AT [place] [address] ([facility]) (test code = BALAOR Estuardo [facility] 1538) [address] POCT-GLUCOSE [id number] 06:58:00 Test Item Value Reference Range Interpretation Comments POC-GLUCOSE METER 171 mg/dL 70-110 H TESTED AT [place] [address] ([facility]) (test code = [facility] 1538) [address] POCT-GLUCOSE [id number] 06:58:00 Test Item Value Reference Range Interpretation Comments POC-GLUCOSE METER 210 mg/dL 70-110 H TESTED AT [place] [address] ([facility]) (test code = [facility] 1538) [address] BASIC METABOLIC [id number] 05:04:00 Test Item Value Reference Range Interpretation Comments SODIUM (BEAKER) 158 meq/L 136-145 H (test code = 381) POTASSIUM (BEAKER) 3.5 meq/L 3.5-5.1 (test code = 379) CHLORIDE (BEAKER) 122 meq/L 98-107 H (test code = 382) CO2 (BEAKER) (test 23 meq/L 22-29 code = 355) BLOOD UREA NITROGEN 116 mg/dL 7-21 H (BEAKER) (test code = 354) CREATININE (BEAKER) 1.39 mg/dL 0.57-1.25 H (test code = 358) GLUCOSE RANDOM 178 mg/dL 70-105 H (BEAKER) (test code = 652) CALCIUM (BEAKER) 8.7 mg/dL 8.4-10.2 (test code = 697) EGFR (BEAKER) (test 49 mL/min/1.73 ESTIMA JOEL GFR IS code = 1092) sq m NOT ACCURATE CREATININE CLEARANCE IN PREDICTING GLOMERULAR FILTRATION RATE . ESTIMATED GFR I S NOT APPLICABLE FOR DIALYSIS PATIEN TS. TROPONIN [id number] 05:02:00 Test Item Value Reference Range Interpretation Comments TROPONIN I (BEAKER) (test code = 0.22 ng/mL 0.00-0.03 397) Troponin I (TnI) levels must be interpreted [...] and persistent tachyarrhythmia.CREATINE KINASE (CK), TOTAL AND MB 2017-06-01 04:58:00 Test Item Value Reference Range Interpretation Comments CREATINE KINASE TOTAL (BEAKER) 236 U/L 29-200 H (test code = 380) CREATINE KINASE-MB (BEAKER) (test 1.6 ng/mL 0.0-6.6 code = 750) CREATINE KINASE-MB INDEX (BEAKER) 0.7 % (test code = 395) CK-MB Reference Range:<6.7 Normal6.7-10.0 Borderline>10.0 [id number] 04:52:00 Test Item Value Reference Range Interpretation Comments PHOSPHORUS (BEAKER) (test code = 3.1 mg/dL 2.3-4.7 604) [id number] 04:52:00 Test Item Value Reference Range Interpretation Comments MAGNESIUM (BEAKER) (test code = 2.3 mg/dL 1.6-2.6 627) LACTIC ACID, VENOUS, WHOLE [id number] 04:45:00 Test Item Value Reference Range Interpretation Comments LACTATE BLOOD VENOUS (2) (BEAKER) 1.9 mmol/L 0.5-2.2 (test code = 2872) Effective 06/10/2015: Units/Reference Range ChangeNew: 0.5-2.2 mmol/L Previous: 5-20 mg/dLPOCT-GLUCOSE [id number] 03:55:00 Test Item Value Reference Range Interpretation Comments POC-GLUCOSE METER 175 mg/dL 70-110 H TESTED AT [place] [address] ([facility]) ([facility] = [facility] 1538) [address] POCT-GLUCOSE [id number] 03:55:00 Test Item Value Reference Range Interpretation Comments POC-GLUCOSE METER 83 mg/dL 70-[address] [facility] [address] ([facility]) (test code = [facility] Estuardo [facility] [id number] 5869) CBC W/PLT COUNT & AUTO [id number] 02:01:00 Test Item Value Reference Range Interpretation Comments WHITE BLOOD CELL COUNT (BEAKER) 14.4 K/ L 3.5-10.5 H (test code = 775) RED BLOOD CELL COUNT (BEAKER) 2.62 M/ L 4.63-6.08 L (test code = 761) HEMOGLOBIN (BEAKER) (test code = 8.2 GM/DL 13.7-17.5 L 410) HEMATOCRIT (BEAKER) (test code = 25.5 % 40.1-51.0 L 411) MEAN CORPUSCULAR VOLUME (BEAKER) 97.3 fL 79.0-92.2 H (test code = 753) MEAN CORPUSCULAR HEMOGLOBIN 31.3 pg 25.7-32.2 (BEAKER) (test code = 751) MEAN CORPUSCULAR HEMOGLOBIN CONC 32.2 GM/DL 32.3-36.5 L (BEAKER) (test code = 752) RED CELL DISTRIBUTION WIDTH 21.2 % 11.6-14.4 H (BEAKER) (test code = 412) PLATELET COUNT (BEAKER) (test 200 K/CU MM 150-450 code = 756) MEAN PLATELET VOLUME (BEAKER) 10.8 fL 9.4-12.4 (test code = 754) NUCLEATED RED BLOOD CELLS 7 /100 WBC 0-0 H (BEAKER) (test code = 413) NEUTROPHILS RELATIVE PERCENT 70 % (BEAKER) (test code = 429) LYMPHOCYTES RELATIVE PERCENT 19 % (BEAKER) (test code = 430) MONOCYTES RELATIVE PERCENT 9 % (BEAKER) (test code = 431) EOSINOPHILS RELATIVE PERCENT 0 % (BEAKER) (test code = 432) BASOPHILS RELATIVE PERCENT 0 % (BEAKER) (test code = 437) NEUTROPHILS ABSOLUTE COUNT 10.14 K/ L 1.78-5.38 H (BEAKER) (test code = 670) LYMPHOCYTES ABSOLUTE COUNT 2.80 K/ L 1.32-3.57 (BEAKER) (test code = 414) MONOCYTES ABSOLUTE COUNT (BEAKER) 1.26 K/ L 0.30-0.82 H (test code = 415) EOSINOPHILS ABSOLUTE COUNT 0.03 K/ L 0.04-0.54 L (BEAKER) (test code = 416) BASOPHILS ABSOLUTE COUNT (BEAKER) 0.04 K/ L 0.01-0.08 (test code = 417) IMMATURE GRANULOCYTES-RELATIVE 1 % 0-1 PERCENT (AKER) (test code = 2801) LACTIC ACID, VENOUS, WHOLE [id number] 22:35:00 Test Item Value Reference Range Interpretation Comments LACTATE BLOOD VENOUS 1.2 mmol/L 0.5-2.2 Specime n slightly (2) ([facility]) (test hemolyzed code = 2872) Effective 06/10/2015: Units/Reference Range ChangeNew: 0.5-2.2 mmol/L Previous: 5-20 mg/dLHEMOGLOBIN AND [id number] 22:12:00 Test Item Value Reference Range Interpretation Comments HEMOGLOBIN (AKER) (test code = 7.7 GM/DL 13.7-17.5 L 410) HEMATOCRIT ([facility]) (test code = 24.0 % 40.1-51.0 L 411) POCT-GLUCOSE [id number] 21:02:00 Test Item Value Reference Range Interpretation Comments POC-GLUCOSE METER 131 mg/dL 70-110 H TESTED AT [place] [address] ([facility]) (test code = MIKY Marte [place] 1538) [address] POCT-GLUCOSE [id number] 19:57:00 Test Item Value Reference Range Interpretation Comments POC-GLUCOSE METER 159 mg/dL 70-110 H TESTED AT [place] [address] ([facility]) (test code = MIKY Marte [place] 1538) [address] POCT-GLUCOSE [id number] 18:42:00 Test Item Value Reference Range Interpretation Comments POC-GLUCOSE METER 186 mg/dL 70-110 H TESTED AT [place] [address] ([facility]) (test code = BALALEELA Estuardo [place] 1538) [address] POCT-GLUCOSE [id number] 18:33:00 Test Item Value Reference Range Interpretation Comments POC-GLUCOSE METER 181 mg/dL 70-110 H TESTED AT [place] [address] ([facility]) (test code = BALALEELA Estuardo [place] 1538) [address] POCT-GLUCOSE [id number] 18:33:00 Test Item Value Reference Range Interpretation Comments POC-GLUCOSE METER 226 mg/dL 70-110 H TESTED AT [place] [address] ([facility]) (test code = MIKY Marte [facility] 1538) [address] POCT-GLUCOSE [id number] 18:33:00 Test Item Value Reference Range Interpretation Comments POC-GLUCOSE METER 257 mg/dL 70-[address] [facility] [address] (BEAKER) (test code = MIKY Marte [facility] 1538) [address] TROPONIN [id number] 18:15:00 Test Item Value Reference Range Interpretation Comments TROPONIN I (BEAKER) (test code = 0.16 ng/mL 0.00-0.03 H 397) Troponin I (TnI) levels must be interpreted [...] and persistent tachyarrhythmia.CREATINE KINASE (CK), TOTAL AND MB 2017-05-31 18:14:00 Test Item Value Reference Range Interpretation Comments CREATINE KINASE TOTAL (BEAKER) 454 U/L 29-200 H (test code = 380) CREATINE KINASE-MB (BEAKER) (test 3.0 ng/mL 0.0-6.6 code = 750) CREATINE KINASE-MB INDEX (BEAKER) 0.7 % (test code = 395) CK-MB Reference Range:<6.7 Normal6.7-10.0 Borderline>10.0 AbnormalBLOOD GAS, [id number] 17:57:00 Test Item Value Reference Range Interpretation Comments PH ARTERIAL (BEAKER) (test code = 7.45 7.35-7.45 383) PCO2 ARTERIAL (BEAKER) (test code 37 mmHg 35-45 = 384) PO2 ARTERIAL (BEAKER) (test code = 123 mmHg 80-90 H 385) O2 SATURATION ARTERIAL (BEAKER) 98.6 % 96.0-97.0 H (test code = 386) HCO3 ARTERIAL (BEAKER) (test code 25 mmol/L 21-29 = 388) BASE EXCESS ARTERIAL (BEAKER) 0.8 mmol/L -2.0-3.0 (test code = 387) PATIENT TEMPERATURE (BEAKER) (test 37.1 C code = 1818) FIO2 (BEAKER) (test code = 1819) 40.0 % HEMOGLOBIN AND [id number] 17:47:00 Test Item Value Reference Range Interpretation Comments HEMOGLOBIN (BEAKER) (test code = 7.7 GM/DL 13.7-17.5 L 410) HEMATOCRIT (BEAKER) (test code = 23.3 % 40.1-51.0 L 411) EEG AWAKE/ASLEEP AND [id number] 17:06:00Reason for exam:->syncopal episode r/o seizure activityShould this be performed at the bedside?->Yes Date(s) of EE05/31/17ACC: [id number] Number: [id number] Location: Inpatient ICUStart time: 16:25Stop time: 16:46ICD-10: G93.40CPT Code: 83788 HISTORY: 82 years-old with GI bleed and [...] encephalopathy. Triphasic wave potentials represent a nonspecific fi nding that is typically associated with metabolic/toxic disturbances, as well as with other settingsof widespread, non-metabolic MEDICAL RECRUITER insults (such as trauma or aftermath of significant seizures). Jovanny Montanez M.D.Neurophysiology Fellow, PGY5 Rikki Zayas M.D.Clinical Neurophysiology/Epilepsy Attending RAD, CHEST, 1 VIEW, NON [id number] 16:55:00Reason for exam:->Post intubationShould this be performed at the bedside?->YesFINAL REPORT Chest one view INDICATION: Post intubation COMPARISON: 05/30/2017 IMPRESSION: ET tube terminates 4.4 cm above [...] MDReport Verified Date/Time: 05/31/2017 16:55:11 Reading Location: [address] Consult Reading Room HEMOGLOBIN [id number] 15:51:00 Test Item Value Reference Range Interpretation Comments HEMOGLOBIN A1C (BEAKER) (test code = 6.1 % 4.3-6.1 368) POCT-GLUCOSE [id number] 15:03:00 Test Item Value Reference Range Interpretation Comments POC-GLUCOSE METER 150 mg/dL 70-[address] [facility] [address] (BEAKER) (test code = [facility] 1538) [address] BASIC METABOLIC [id number] 13:41:00 Test Item Value Reference Range Interpretation Comments SODIUM (BEAKER) 154 meq/L 136-145 H (test code = 381) POTASSIUM (BEAKER) 4.2 meq/L 3.5-5.1 (test code = 379) CHLORIDE (BEAKER) 122 meq/L 98-107 H (test code = 382) CO2 (BEAKER) (test 21 meq/L 22-29 L code = 355) BLOOD UREA NITROGEN 128 mg/dL 7-21 H (BEAKER) (test code = 354) CREATININE (BEAKER) 1.49 mg/dL 0.57-1.25 H (test code = 358) GLUCOSE RANDOM 161 mg/dL 70-105 H (BEAKER) (test code = 652) CALCIUM (BEAKER) 9.0 mg/dL 8.4-10.2 (test code = 697) EGFR (BEAKER) (test 45 mL/min/1.73 ESTIMA JOEL GFR IS code = 1092) sq m NOT ACCURATE CREATININE CLEARANCE IN PREDICTING GLOMERULAR FILTRATION RATE . ESTIMATED GFR I S NOT APPLICABLE FOR DIALYSIS PATIEN TS. [id number] 13:34:00 Test Item Value Reference Range Interpretation Comments PHOSPHORUS (BEAKER) (test code = 4.0 mg/dL 2.3-4.7 604) [id number] 13:34:00 Test Item Value Reference Range Interpretation Comments MAGNESIUM (BEAKER) (test code = 2.2 mg/dL 1.6-2.6 627) LACTIC ACID, VENOUS, WHOLE [id number] 13:20:00 Test Item Value Reference Range Interpretation Comments LACTATE BLOOD VENOUS (2) (BEAKER) 1.8 mmol/L 0.5-2.2 (test code = 2872) Effective 06/10/2015: Units/Reference Range ChangeNew: 0.5-2.2 mmol/L Previous: 5-20 mg/dLCBC W/PLT COUNT & AUTO [id number] 13:08:00 Test Item Value Reference Range Interpretation Comments WHITE BLOOD CELL COUNT (BEAKER) 16.7 K/ L 3.5-10.5 H (test code = 775) RED BLOOD CELL COUNT (BEAKER) 2.71 M/ L 4.63-6.08 L (test code = 761) HEMOGLOBIN (BEAKER) (test code = 8.3 GM/DL 13.7-17.5 L 410) HEMATOCRIT (BEAKER) (test code = 25.3 % 40.1-51.0 L 411) MEAN CORPUSCULAR VOLUME (BEAKER) 93.4 fL 79.0-92.2 H (test code = 753) MEAN CORPUSCULAR HEMOGLOBIN 30.6 pg 25.7-32.2 (BEAKER) (test code = 751) MEAN CORPUSCULAR HEMOGLOBIN CONC 32.8 GM/DL 32.3-36.5 (BEAKER) (test code = 752) RED CELL DISTRIBUTION WIDTH 19.6 % 11.6-14.4 H (BEAKER) (test code = 412) PLATELET COUNT (BEAKER) (test 200 K/CU MM 150-450 code = 756) MEAN PLATELET VOLUME (BEAKER) 10.7 fL 9.4-12.4 (test code = 754) NUCLEATED RED BLOOD CELLS 14 /100 WBC 0-0 H (BEAKER) (test code = 413) NEUTROPHILS RELATIVE PERCENT 71 % (BEAKER) (test code = 429) LYMPHOCYTES RELATIVE PERCENT 15 % (BEAKER) (test code = 430) MONOCYTES RELATIVE PERCENT 13 % (BEAKER) (test code = 431) EOSINOPHILS RELATIVE PERCENT 0 % (BEAKER) (test code = 432) BASOPHILS RELATIVE PERCENT 0 % (BEAKER) (test code = 437) NEUTROPHILS ABSOLUTE COUNT 11.78 K/ L 1.78-5.38 H (BEAKER) (test code = 670) LYMPHOCYTES ABSOLUTE COUNT 2.45 K/ L 1.32-3.57 (BEAKER) (test code = 414) MONOCYTES ABSOLUTE COUNT (BEAKER) 2.12 K/ L 0.30-0.82 H (test code = 415) EOSINOPHILS ABSOLUTE COUNT 0.01 K/ L 0.04-0.54 L (BEAKER) (test code = 416) BASOPHILS ABSOLUTE COUNT (BEAKER) 0.06 K/ L 0.01-0.08 (test code = 417) IMMATURE GRANULOCYTES-RELATIVE 2 % 0-1 H PERCENT (BEAKER) (test code = 2801) HEMOGLOBIN AND [id number] 13:00:00 Test Item Value Reference Range Interpretation Comments HEMOGLOBIN (BEAKER) (test code = 8.3 GM/DL 13.7-17.5 L 410) HEMATOCRIT (BEAKER) (test code = 25.3 % 40.1-51.0 L 411) POCT-GLUCOSE [id number] 12:13:00 Test Item Value Reference Range Interpretation Comments POC-GLUCOSE METER 119 mg/dL 70-[address] [facility] 67[address] (BEAKER) (test code = MIKY [place] 1538) [address] POCT-GLUCOSE [id number] 12:13:00 Test Item Value Reference Range Interpretation Comments POC-GLUCOSE METER 150 mg/dL 70-[address] [facility] 67[address] (BEAKER) (test code = MIKY KAN [place] 1538) [address] POCT-GLUCOSE [id number] 12:13:00 Test Item Value Reference Range Interpretation Comments POC-GLUCOSE METER 211 mg/dL 70-[address] [facility] 67[address] ([facility]) (test code = MIKY Marte [place] 1538) [address] POCT-GLUCOSE [id number] 12:13:00 Test Item Value Reference Range Interpretation Comments POC-GLUCOSE METER 272 mg/dL 70-[address] [facility] [address] ([facility]) (test code = MIKY Marte [facility] 1538) [address] B-TYPE NATRIURETIC FACTOR (BNP)2017-05-31 08:12:00 Test Item Value Reference Range Interpretation Comments B-TYPE NATRIURETIC PEPTIDE (AKER) 558 pg/mL 0-100 H (test code = 700) CREATINE KINASE (CK), TOTAL AND [id number] 07:37:00 Test Item Value Reference Range Interpretation Comments CREATINE KINASE TOTAL (BEAKER) 560 U/L 29-200 H (test code = 380) CREATINE KINASE-MB (BEAKER) (test 4.9 ng/mL 0.0-6.6 code = 750) CREATINE KINASE-MB INDEX (BEAKER) 0.9 % (test code = 395) CK-MB Reference Range:<6.7 Normal6.7-10.0 Borderline>10.0 AbnormalTROPONIN [id number] 07:37:00 Test Item Value Reference Range Interpretation Comments TROPONIN I (BEAKER) (test code = 0.07 ng/mL 0.00-0.03 H 397) Troponin I (TnI) levels must be interpreted [...] failure, acidosis, acute neurological disease, and persistent tachyarrhythmia.[id number] 07:26:00 Test Item Value Reference Range Interpretation Comments ETHANOL (BEAKER) (test code = 400) < mg/dL <=10 POCT-GLUCOSE [id number] 06:52:00 Test Item Value Reference Range Interpretation Comments POC-GLUCOSE METER 284 mg/dL 70-110 H TESTED AT [place] [address] ([facility]) (test code = MIKY Marte [facility] [place] 1538) [address] POCT-GLUCOSE [id number] 05:47:00 Test Item Value Reference Range Interpretation Comments POC-GLUCOSE METER 406 mg/dL 70-110 HH TESTED AT [place] [address] (BEAKER) (test code = MIKY Marte [facility] [place] 1538) [address] POCT-GLUCOSE [id number] 05:47:00 Test Item Value Reference Range Interpretation Comments POC-GLUCOSE METER 405 mg/dL 70-110 HH TESTED AT [place] [address] ([facility]) (test code = MIKY Marte [facility] 1538) [address] POCT-GLUCOSE [id number] 05:47:00 Test Item Value Reference Range Interpretation Comments POC-GLUCOSE METER 429 mg/dL 70-110 HH TESTED AT [place] [address] ([facility]) (test code = MIKY Marte [facility] 1538) [address] BASIC METABOLIC [id number] 04:02:00 Test Item Value Reference Range Interpretation Comments SODIUM (BEAKER) 150 meq/L 136-145 H (test code = 381) POTASSIUM (BEAKER) 4.2 meq/L 3.5-5.1 (test code = 379) CHLORIDE (BEAKER) 117 meq/L 98-107 H (test code = 382) CO2 (BEAKER) (test 18 meq/L 22-29 L code = 355) BLOOD UREA NITROGEN 154 mg/dL 7-21 H (BEAKER) (test code = 354) CREATININE (BEAKER) 1.81 mg/dL 0.57-1.25 H (test code = 358) GLUCOSE RANDOM 389 mg/dL 70-105 H (BEAKER) (test code = 652) CALCIUM (BEAKER) 8.7 mg/dL 8.4-10.2 (test code = 697) EGFR (BEAKER) (test 36 mL/min/1.73 ESTIMA JOEL GFR IS code = 1092) sq m NOT ACCURATE CREATININE CLEARANCE IN PREDICTING GLOMERULAR FILTRATION RATE . ESTIMATED GFR I S NOT APPLICABLE FOR DIALYSIS PATIEN TS. [id number] 03:59:00 Test Item Value Reference Range Interpretation Comments PHOSPHORUS (BEAKER) (test code = 4.4 mg/dL 2.3-4.7 604) [id number] 03:59:00 Test Item Value Reference Range Interpretation Comments MAGNESIUM (BEAKER) (test code = 2.2 mg/dL 1.6-2.6 627) VANCOMYCIN LEVEL, [id number] 03:49:00 Test Item Value Reference Range Interpretation Comments VANCOMYCIN RANDOM (BEAKER) (test 19.0 ug/mL code = 523) Reference Range: No NormalsCBC W/PLT COUNT & AUTO [id number] 03:41:00 Test Item Value Reference Range Interpretation Comments WHITE BLOOD CELL COUNT (BEAKER) 18.9 K/ L 3.5-10.5 H (test code = 775) RED BLOOD CELL COUNT (BEAKER) 2.35 M/ L 4.63-6.08 L (test code = 761) HEMOGLOBIN (BEAKER) (test code = 7.4 GM/DL 13.7-17.5 L 410) HEMATOCRIT (BEAKER) (test code = 22.7 % 40.1-51.0 L 411) MEAN CORPUSCULAR VOLUME (BEAKER) 96.6 fL 79.0-92.2 H (test code = 753) MEAN CORPUSCULAR HEMOGLOBIN 31.5 pg 25.7-32.2 (BEAKER) (test code = 751) MEAN CORPUSCULAR HEMOGLOBIN CONC 32.6 GM/DL 32.3-36.5 (BEAKER) (test code = 752) RED CELL DISTRIBUTION WIDTH 18.2 % 11.6-14.4 H (BEAKER) (test code = 412) PLATELET COUNT (BEAKER) (test 206 K/CU MM 150-450 code = 756) MEAN PLATELET VOLUME (BEAKER) 10.8 fL 9.4-12.4 (test code = 754) NUCLEATED RED BLOOD CELLS 7 /100 WBC 0-0 H (BEAKER) (test code = 413) NEUTROPHILS RELATIVE PERCENT 75 % (BEAKER) (test code = 429) LYMPHOCYTES RELATIVE PERCENT 12 % (BEAKER) (test code = 430) MONOCYTES RELATIVE PERCENT 11 % (BEAKER) (test code = 431) EOSINOPHILS RELATIVE PERCENT 0 % (BEAKER) (test code = 432) BASOPHILS RELATIVE PERCENT 0 % (BEAKER) (test code = 437) NEUTROPHILS ABSOLUTE COUNT 14.26 K/ L 1.78-5.38 H (BEAKER) (test code = 670) LYMPHOCYTES ABSOLUTE COUNT 2.29 K/ L 1.32-3.57 (BEAKER) (test code = 414) MONOCYTES ABSOLUTE COUNT (BEAKER) 2.05 K/ L 0.30-0.82 H (test code = 415) EOSINOPHILS ABSOLUTE COUNT 0.00 K/ L 0.04-0.54 L (BEAKER) (test code = 416) BASOPHILS ABSOLUTE COUNT (BEAKER) 0.02 K/ L 0.01-0.08 (test code = 417) IMMATURE GRANULOCYTES-RELATIVE 2 % 0-1 H PERCENT (BEAKER) (test code = 2801) LACTIC ACID, VENOUS, WHOLE [id number] 03:29:00 Test Item Value Reference Range Interpretation Comments LACTATE BLOOD VENOUS (2) (BEAKER) 3.1 mmol/L 0.5-2.2 H (test code = 2872) Effective 06/10/2015: Units/Reference Range ChangeNew: 0.5-2.2 mmol/L Previous: 5-20 mg/dLCALCIUM, [id number] 03:17:00 Test Item Value Reference Range Interpretation Comments CALCIUM IONIZED (BEAKER) (test 1.14 mmol/L 1.12-1.27 code = 698) PH, BLOOD (BEAKER) (test code = 7.31 1810) BASIC METABOLIC [id number] 23:39:00 Test Item Value Reference Range Interpretation Comments SODIUM (BEAKER) 150 meq/L 136-145 H (test code = 381) POTASSIUM (BEAKER) 4.2 meq/L 3.5-5.1 (test code = 379) CHLORIDE (BEAKER) 118 meq/L 98-107 H (test code = 382) CO2 (BEAKER) (test 18 meq/L 22-29 L code = 355) BLOOD UREA NITROGEN 147 mg/dL 7-21 H (BEAKER) (test code = 354) CREATININE (BEAKER) 1.63 mg/dL 0.57-1.25 H (test code = 358) GLUCOSE RANDOM 350 mg/dL 70-105 H (BEAKER) (test code = 652) CALCIUM (BEAKER) 8.4 mg/dL 8.4-10.2 (test code = 697) EGFR (BEAKER) (test 41 mL/min/1.73 ESTIMA JOEL GFR IS code = 1092) sq m NOT ACCURATE CREATININE CLEARANCE IN PREDICTING GLOMERULAR FILTRATION RATE . ESTIMATED GFR I S NOT APPLICABLE FOR DIALYSIS PATIEN TS. [id number] 23:16:00 Test Item Value Reference Range Interpretation Comments AMMONIA (BEAKER) (test code = 348) 32 mol/L 18-72 HEPATIC FUNCTION [id number] 23:13:00 Test Item Value Reference Range Interpretation Comments TOTAL PROTEIN (BEAKER) (test code = 5.9 gm/dL 6.0-8.3 L 770) ALBUMIN (BEAKER) (test code = 1145) 3.3 g/dL 3.5-5.0 L BILIRUBIN TOTAL (BEAKER) (test code 0.7 mg/dL 0.2-1.2 = 377) BILIRUBIN DIRECT (BEAKER) (test 0.3 mg/dL 0.1-0.5 code = 706) ALKALINE PHOSPHATASE (BEAKER) (test 45 U/L 40-150 code = 346) AST (SGOT) (BEAKER) (test code = 50 U/L 5-34 H 353) ALT (SGPT) (BEAKER) (test code = 20 U/L 6-55 347) CBC W/PLT COUNT & AUTO [id number] 22:55:00 Test Item Value Reference Range Interpretation Comments WHITE BLOOD CELL COUNT (BEAKER) 21.6 K/ L 3.5-10.5 H (test code = 775) RED BLOOD CELL COUNT (BEAKER) 2.32 M/ L 4.63-6.08 L (test code = 761) HEMOGLOBIN (BEAKER) (test code = 7.3 GM/DL 13.7-17.5 L 410) HEMATOCRIT (BEAKER) (test code = 22.9 % 40.1-51.0 L 411) MEAN CORPUSCULAR VOLUME (BEAKER) 98.7 fL 79.0-92.2 H (test code = 753) MEAN CORPUSCULAR HEMOGLOBIN 31.5 pg 25.7-32.2 (BEAKER) (test code = 751) MEAN CORPUSCULAR HEMOGLOBIN CONC 31.9 GM/DL 32.3-36.5 L (BEAKER) (test code = 752) RED CELL DISTRIBUTION WIDTH 18.3 % 11.6-14.4 H (BEAKER) (test code = 412) PLATELET COUNT (BEAKER) (test 240 K/CU MM 150-450 code = 756) MEAN PLATELET VOLUME (BEAKER) 10.2 fL 9.4-12.4 (test code = 754) NUCLEATED RED BLOOD CELLS 6 /100 WBC 0-0 H (BEAKER) (test code = 413) [id number] 22:52:00 Test Item Value Reference Range Interpretation Comments MAGNESIUM (BEAKER) (test code = 2.4 mg/dL 1.6-2.6 627) [id number] 22:52:00 Test Item Value Reference Range Interpretation Comments PHOSPHORUS (BEAKER) (test code = 4.5 mg/dL 2.3-4.7 604) [id number] 22:49:00 Test Item Value Reference Range Interpretation Comments FIBRINOGEN LEVEL (BEAKER) (test 390 mg/dl 225-434 code = 658) RAD, ABDOMEN/KUB, 1 VIEW [id number] 22:46:00Reason for exam:->abdominal painShould this be performed at the bedside?->YesFINAL REPORT Abdomen x-ray Clinical Diagnosis: Abdomen painComparison: No com parisonViews: One Report:Abdomen:There is a nonspecific bowel gas pattern. There is no evidence ofGI tract obstruction. The visible regional skeleton is degenerative. The patient is status post cholecystectomy . Marked atherosclerotic calcification is noted within the vascular changes in the left iliac vasculature . . There is no mural edema or definite free intraperitoneal air. There is no evidence of organomegaly Impression:Nonspecific abdomen exam Signed: Angeles Sánchez Verified Date/Time: 05/30/2017 22:46:58 Reading Location: [facility] B1 C013W Consult Reading Room , CHEST, 1 VIEW, NON [id number] 22:45:00Post-intubationReason for exam:- >tachypneaShould this be performed at the bedside?->YesFINAL REPORT [...] or pneumonia. Signed: Angeles Sánchezeport Verified Date/Time: 0 05/30/2017 22:45:22 Reading Location: [facility] B1 C013W Consult Reading Room PROTHROMBIN TIME/[id number] 22:44:00 Test Item Value Reference Range Interpretation Comments PROTIME (BEAKER) (test code = 22.6 seconds 11.7-14.7 H 759) INR (BEAKER) (test code = 370) 2.0 <=5.9 RECOMMENDED COUMADIN/WARFARIN INR THERAPY RANGESSTANDARD DOSE: 2.0 - 3.0 Includes: PROPHYLAXIS forvenous thrombosis, systemic embolization; TREATMENT for venous thrombosis and/or pulmonary embolus.HIGH RISK: Target INR is 2.5-3.5 for patients with mechanical heart valves.URINALYSIS W/ [id number] 22:34:00 Test Item Value Reference Range Interpretation Comments COLOR (BEAKER) (test code = 470) Light Yellow CLARITY (BEAKER) (test code = Clear 469) SPECIFIC GRAVITY UA (BEAKER) 1.011 1.001-1.035 (test code = 468) PH UA (BEAKER) (test code = 467) 5.0 5.0-8.0 PROTEIN UA (BEAKER) (test code = Negative Negative 464) GLUCOSE UA (BEAKER) (test code = Negative Negative 365) KETONES UA (BEAKER) (test code = Negative Negative 371) BILIRUBIN UA (BEAKER) (test code Negative Negative = 462) BLOOD UA (BEAKER) (test code = Moderate Negative A 461) NITRITE UA (BEAKER) (test code = Negative Negative 465) LEUKOCYTE ESTERASE UA (BEAKER) Negative Negative (test code = 466) UROBILINOGEN UA (BEAKER) (test 0.2 mg/dL 0.2-1.0 code = 463) RBC UA (BEAKER) (test code = 12 /HPF 519) WBC UA (BEAKER) (test code = 8 /HPF 520) BACTERIA (BEAKER) (test code = Occasional 517) MUCUS (BEAKER) (test code = Rare 1574) SOURCE(BEAKER) (test code = Urine, Erazo 8743) BLOOD GAS, [id number] 22:25:00 Test Item Value Reference Range Interpretation Comments PH VENOUS (BEAKER) (test code = 7.37 7.32-7.42 701) PCO2 VENOUS (BEAKER) (test code = 40 mmHg 41-51 L 755) PO2 VENOUS (BEAKER) (test code = 20 mmHg 25-40 L 702) O2 SATURATION VENOUS (BEAKER) 31.7 % 40.0-70.0 L (test code = 703) HCO3 VENOUS (BEAKER) (test code = 22 mmol/L 21-29 705) BASE EXCESS VENOUS (BEAKER) (test -2.8 mmol/L -2.0-3.0 L code = 704) PATIENT TEMPERATURE (BEAKER) 36.6 C (test code = 1818) CALCIUM, [id number] 22:23:00 Test Item Value Reference Range Interpretation Comments CALCIUM IONIZED (BEAKER) (test 1.12 mmol/L 1.12-1.27 code = 698) PH, BLOOD (BEAKER) (test code = 7.36 1810)
--- OUTSIDE RECORDS SUMMARY | 2019-12-17 07:25 | XMS REPORT ---
:1935 Author Organization [facility] Address [address], 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 Active 629400335 knee amputation Problem Gout M10.9 Active 49745802 Problem Renal failure N19 Active 94336290 Problem HTN (hypertension) I10 Active 97155238 Problem Hypomagnesemia E83.42 Active 922568690 Problem Thrombocytosis D47.3 Active 1734678 Problem Stented coronary Z95.5 Active 071248320 artery Problem CKD (chronic N18.3 Active 706613462 kidney disease) stage 3, GFR 30-59 ml/min Problem Type 2 diabetes E11.65 Active 90121911 mellitus with hyperglycemia Problem Diabetes mellitus E11.29 Active 722891259 with kidney disease Problem Hyperglycemic E11.65 Active 840955358 crisis in diabetes mellitus Problem Hyperlipidemia E78.5 Active 72238379 Problem Anemia, D64.9 Active 739573944 unspecified type Problem Painful urination R30.9 Active 85569519 Problem S/P PICC central Z95.828 Active 883052132 line placement Problem long-term Z79.4 Active 150630413 (current) use of insulin ALLERGIES No Known Allergies ENCOUNTERS from 1935 to 2019-11-27 Encounter Location Date Provider Diagnosis [facility] [address], [place] [address] IMMUNIZATIONS No Information SOCIAL HISTORY Tobacco Use: [...] REASON FOR REFERRAL No Information VITAL SIGNS No information MEDICATIONS Medication SIG (Take, Route, Start Date End Date Status Frequency, Duration) Benzonatate 200 MG 1 capsule Orally Three Oct, Nov, Active times a day for 10 days Lasix 40 MG 1 tablet Orally Once a day A ctive Allopurinol 300 MG 1 tablet Orally Once a day Active for 90 days Carvedilol 12.5 MG Orally Active Glimepiride 4 MG 1 tablet with breakfast or Active the first main meal of the day Orally Once a day for 90 days BD Ultra-Fine Milla Pen 1 needle with tresiba Active [place] 4mm x 32Gm subcutaneously once a day for 90 days Magnesium Oxide 400 MG 1 tablet as needed Orally Active Once a day Tresiba FlexTouch 200 INJECT 10 UNITS Act elana UNIT/ML SUBCUTANEOUSLY ONCE DAILY EVERY MORNING Vitamin B Complex - 1 tablet Orally once daily Active Tamsulosin HCl 0.4 MG TAKE 1 CAPSULE BY MOUTH Active DAILY Potassium Chloride 20 MEQ 1 tablet with food Orally Active Once a day for 30 day(s) Atorvastatin Calcium 40 TAKE 1 TABLET BY MOUTH Active MG DAILY Orally Once a day Aspirin 81 MG 1 tablet Orally Once a day Active PROCEDURES No Information RESULTS No Results REASON FOR VISIT cough, OTC MEDICAL (GENERAL) HISTORY Type Description Date Medical History Atherosclerosis of coronary artery of na tive heart Medical History Stented coronary artery Medical History Diabetes mellitus with kidney disease Medical History Proteinuria, unspecified Medical History HTN (hypertension) Medical History Hyperlipidemia Medical History Status post above knee amputation Medical History Gout Medical History Hypomagnesemia Medical History Renal failure Medical History Thrombocytosis Surgical History Left knee 2183-6466 Surgical History Pace maker 1997 Surgical History Vasectomy 1975 Surgical History Vasec 1983 Surgical History Left shoulder 2003 Surgical History Quad Bypass 2010 Surgical History Gallblader removed 2010 Surgical History Removed Rt leg 2015 Surgical History Pace maker replacement 2015 Goals Section No Information Health Concerns No Information MEDICAL EQUIPMENT No Information MENTAL STATUS No Information FUNCTIONAL STATUS No Information ASSESSMENTS No Information PLAN OF TREATMENT Medication Medication Name Sig Start Date Stop Date Tamsulosin HCl 0.4 MG TAKE 1 CAPSULE BY MOUTH DAILY Atorvastatin Calcium 40 MG TAKE 1 TABLET BY MOUTH DAILY Orally Once a day Next Appt Details Provider Name:Rocco Valle, 2020-02-04 0 1:00:00 PM, [address], [address], [place], [address], Provider Name:Rocco Valle, 2020-02-12 0 1:00:00 PM, [address], [address], [place], [address], Provider Name:Rocco Valle, 2020-02-12 0 1:00:00 PM, [address], [address], [place], [address], Insurance Providers Payer Name Payer Address Payer Insured Patient Coverage Cover age Phone Name Relationship to Start Date End Date Insured MEDICARE Attn Part B [id number] Taurus Burrows [employer] Claims [address] [facility] [address] [facility] [address] [phone] Taurus Burrows and [place] [facility] [address] [facility] [address]
--- OUTSIDE RECORDS SUMMARY | 2019-12-17 07:25 | XMS REPORT ---
:1935 Author Organization [facility] Address [address] [place] [address] Care Team Providers Name Role Phone Valle Unavailable [phone] PROBLEMS Type Condition ICD9-CM [id number] Onset Condition SNOMED Code Notes Code Code Dates Status Problem Atherosclerosis of I25.10 Active 8201361725906 03 coronary artery of [place] heart Problem Proteinuria, R80.9 Active 18396115 unspecified Problem Status post above Z89.619 Active 882970831 knee amputation Problem Gout M10.9 Active 01970020 Problem Renal failure N19 Active 05684420 Problem HTN (hypertension) I10 Active 58743941 Problem Hypomagnesemia E83.42 Active 628880660 Problem Thrombocytosis D47.3 Active 6901101 Problem Stented coronary Z95.5 Active 691913712 artery Problem CKD (chronic N18.3 Active 997359573 kidney disease) stage 3, GFR 30-59 ml/min Problem Type 2 diabetes E11.65 Active 67662534 mellitus with hyperglycemia Problem Diabetes mellitus E11.29 Active 779158351 with kidney disease Problem Hyperglycemic E11.65 Active 656356887 crisis in diabetes mellitus Problem Hyperlipidemia E78.5 Active 92703183 Problem Anemia, D64.9 Active 574057106 unspecified type Problem Painful urination R30.9 Active 01105289 Problem S/P PICC central Z95.828 Active 766258866 line placement Problem custodial Z79.4 Active 223779763 (current) use of insulin ALLERGIES No Known Allergies ENCOUNTERS from 1935 to 2019-11-14 Encounter Location Date Provider Diagnosis [facility] [address], [place] [address] IMMUNIZATIONS No Information SOCIAL HISTORY Tobacco Use: [...] Start Date End Date Status Frequency, Duration) Magnesium Oxide 400 MG 1 tablet as needed Orally Active Once a day Tamsulosin HCl 0.4 MG 1 capsule Once a day Not-Taking Orally 90 days Orally Once a day for 90 days Aspirin 81 MG 1 tablet Orally Once a Acti ve day Lasix 40 MG 1 tablet Orally Once a Activ e day Carvedilol 12.5 MG Orally Active Potassium Chloride 20 1 tablet with food Orally Active MEQ Once a day for 30 day(s) BD Ultra-Fine Milla Pen 1 needle with tresiba Active [place] 4mm x 32Gm subcutaneously once a day for 90 days Vitamin B Complex - 1 tablet Orally once Active daily Glimepiride 4 MG 1 tablet with breakfast Active or the first main meal of the day Orally Once a day for 90 days Tresiba FlexTouch 200 INJECT 10 UNITS Act elana UNIT/ML SUBCUTANEOUSLY ONCE DAILY EVERY MORNING Atorvastatin Calcium 40 TAKE 1 TABLET BY MOUTH Active MG DAILY Orally Once a day Benzonatate 200 MG 1 capsule Orally Three Oct, Nov, Active times a day for 10 days Tamsulosin HCl 0.4 MG 1 capsule Orally Once a Active day for 90 days Allopurinol 300 MG 1 tablet Orally Once a Active day for 90 days PROCEDURES No Information RESULTS No Results REASON FOR VISIT Rx for prosthetic leg MEDICAL (GENERAL) HISTORY Type Description Date Medical History Atherosclerosis of coronary artery of na tive heart Medical History Stented coronary artery Medical History Diabetes mellitus with kidney disease Medical History Proteinuria, unspecified Medical History HTN (hypertension) Medical History Hyperlipidemia Medical History Status post above knee amputation Medical History Gout Medical History Hypomagnesemia Medical History Renal failure Medical History Thrombocytosis Surgical History Left knee 4166-8430 Surgical History Pace maker 1997 Surgical History Vasectomy 1976 Surgical History Vasec 1984 Surgical History Left shoulder 2003 Surgical History Quad Bypass 2010 Surgical History Gallblader removed 2010 Surgical History Removed Rt leg 2015 Surgical History Pace maker replacement 2014 [place] No Information Health Concerns No Information MEDICAL EQUIPMENT No Information MENTAL STATUS No Information FUNCTIONAL STATUS No Information ASSESSMENTS No Information PLAN OF TREATMENT Medication Medication Name Sig Start Date Stop Date Carvedilol 12.5 MG Orally Benzonatate 200 MG 1 capsule Orally Three times a Oct, Nov, day for 10 days Lasix 40 MG 1 tablet Orally Once a day Aspirin 81 MG 1 tablet Orally Once a day Allopurinol 300 MG 1 tablet Orally Once a day for 90 days Magnesium Oxide 400 MG 1 tablet as needed Orally Once a day Tresiba FlexTouch 200 UNIT/ML INJECT 10 UNITS SUBCUTANEOUSLY ONCE DAILY EVERY MORNING Glimepiride 4 MG 1 tablet with breakfast or the first main meal of the day Orally Once a day for 90 days Atorvastatin Calcium 40 MG TAKE 1 TABLET BY MOUTH DAILY Orally Once a day Next Appt Details Provider Name:Rocco Valle, 2020-02-04 0 1:00:00 PM, [address], [facility] [address], [place], [address], Provider Name:Rocco Valle, 2020-02-12 0 1:00:00 PM, [address], [facility] [address], [place], [address], Provider Name:Rocco Valle, 2020-02-12 0 1:00:00 PM, [address], [facility] [address], [place], [address], Insurance Providers Payer Name Payer Address Payer Insured Patient Coverage Cover age Phone Name Relationship to Start Date End Date Insured [facility] [address] [phone] Taurus Burrows and [facility] [address] [facility] [address] MEDICARE Attn Part B [id number] Taurus Burrows [employer] Claims [address] [place] [address]
[2019-12-17] MEDS ORDERED: PHENYLEPHRINE 0.5% NOSE 15ML NAS ONE (07:43)
[2019-12-17 08:16] LABS: Absolute Lymphocytes (CBC) 3.2 K/uL (0.7-4.9); Hematocrit 34.1 % (39.6-49.0); Lymphocytes % 40.1 % (15.3-44.8); MPV 7.8 fL (7.6-11.3); RBC Red Blood Cell Count 3.75 M/uL (4.33-5.43)
[2019-12-17] MEDS ORDERED: NA CHLORIDE 0.9% 500 ML ONE (08:17)
[2019-12-17 08:20] LABS: Protime INR 1.2
[2019-12-17 08:33] LABS: Albumin 3.7 g/dL (3.4-5.0); Bilirubin Direct 0.2 mg/dL (0-0.2); Bilirubin Total 0.8 mg/dL (0.2-1.0); Magnesium 2.3 mg/dL (1.8-2.4); Protein, Total 7.6 g/dL (6.4-8.2); Troponin (Emerg Dept Use Only) 0.03 ng/mL (0.0-0.045)
--- NOTE | 2019-12-17 08:34 | RAD REPORT ---
EXAM DESCRIPTION: RAD - Chest Single View - 12/17/2019 7:45 am CLINICAL HISTORY: COUGH Chest pain. COMPARISON: Chest Pa And Lat (2 Views) dated 06/01/2018; Chest Single View dated 05/07/2018; Chest Sing le View dated 05/04/2018; Chest Single View dated 06/10/2016 FINDINGS: Portable technique limits examination quality. The lungs are grossly clear. The heart is mildly enlarged in size with changes of a prior CABG. Multi lead pacer device.Sternotomy wires noted.
--- NOTE | 2019-12-17 10:17 | EDPHYS ---
Physician Documentation [facility] Name: Javan Burrows Age: 84 yrs Sex: Male : 1935 Arrival Date: 12/17/2019 Time: 07:21 Bed 18 Private MD: ED Physician Jamie Reid HPI: 12/16 10:10 This 84 yrs old Male presents to ER via EMS with complaints of Nose Bleed. leonidas 10:10 The patient presents with a nose bleed, that is apparently posterior, from the right leonidas nare. Onset: The symptoms/episode began/occurred just prior to arrival, this morning. Modifying factors: The symptoms are alleviated by nothing. the symptoms are aggravated by. Associated signs and symptoms: The patient has no apparent associated signs or symptoms, Loss of consciousness: the patient experienced no loss of consciousness. Severity of symptoms: At their worst the symptoms were mild moderate in the emergency department the symptoms are unchanged. The patient has not experienced similar symptoms in the past. Historical: - Allergies: 07:26 NKA; ll2 - Home Meds: 07:44 tamsulosin 0.4 mg Oral cp24 1 cap once daily [Active]; allopurinol 300 mg Oral tab 1 ll2 tab once daily [Active]; furosemide 40 mg Oral tab 1 tab 2 times per day [Active]; carvedilol 3.125 mg oral tab 1 tab 2 times per day [Active]; glimepiride 4 mg Oral tab 1 tab once daily [Active]; atorvastatin 40 mg Oral tab 1 tab once daily [Active]; potassium chloride 20 mEq Oral TbTQ 1 tab once daily [Active]; aspirin 81 mg Oral chew 1 tab once daily [Active]; Tresiba FlexTouch U-100 subcutaneous subcutaneous [Active]; - PMHx: 07:26 Diabetes - NIDDM; Hypertension; a-fib; Gout; Myocardial infarction; ll2 07:54 Pacemaker; ll2 - Immunization history:: Adult Immunizations up to date. - Social history:: Smoking status: Patient denies any tobacco usage or history of. - Family history:: not pertinent. ROS: 10:10 Constitutional: Negative for fever, chills, and weight loss, Eyes: Negative for injury, leonidas pain, redness, and discharge, Neck: Negative for injury, pain, and swelling, Cardiovascular: Negative for chest pain, palpitations, and edema, Respiratory: Negative for shortness of breath, cough, wheezing, and pleuritic chest pain, Abdomen/GI: Negative for abdominal pain, nausea, vomiting, diarrhea, and constipation, Back: Negative for injury and pain, : Negative for injury, bleeding, discharge, and swelling, MS/Extremity: Negative for injury and deformity, Skin: Negative for injury, rash, and discoloration, Neuro: Negative for headache, weakness, numbness, tingling, and seizure, Psych: Negative for depression, anxiety, suicide ideation, homicidal ideation, and hallucinations, Allergy/Immunology: Negative for hives, rash, and allergies, Endocrine: Negative for neck swelling, polydipsia, polyuria, polyphagia, and marked weight changes, Hematologic/Lymphatic: Negative for swollen nodes, abnormal bleeding, and unusual bruising. 10:10 ENT: Positive for nose bleed. Exam: 10:10 Constitutional: This is a well developed, well nourished patient who is awake, alert, leonidas and in no acute distress. Head/Face: Normocephalic, atraumatic. Eyes: Pupils equal round and reactive to light, extra-ocular motions intact. Lids and lashes normal. Conjunctiva and sclera are non-icteric and not injected. Cornea within normal limits. Periorbital areas with no swelling, redness, or edema. Neck: Trachea midline, no thyromegaly or masses palpated, and no cervical lymphadenopathy. Supple, full range of motion without nuchal rigidity, or vertebral point tenderness. No Meningismus. Chest/axilla: Normal chest wall appearance and motion. Nontender with no deformity. No lesions are appreciated. Cardiovascular: Regular rate and rhythm with a normal S1 and S2. No gallops, murmurs, or rubs. Normal PMI, no JVD. No pulse deficits. Respiratory: Lungs have equal breath sounds bilaterally, clear to auscultation and percussion. No rales, rhonchi or wheezes noted. No increased work of breathing, no retractions or nasal flaring. Abdomen/GI: Soft, non-tender, with normal bowel sounds. No distension or tympany. No guarding or rebound. No evidence of tenderness throughout. Back: No spinal tenderness. No costovertebral tenderness. Full range of motion. Male : Normal genitalia with no discharge or lesions. Skin: Warm, dry with normal turgor. Normal color with no rashes, no lesions, and no evidence of cellulitis. MS/ Extremity: Pulses equal, no cyanosis. Neurovascular intact. Full, normal range of motion. Neuro: Awake and alert, GCS 15, oriented to person, place, time, and situation. Cranial nerves II-XII grossly intact. Motor strength 5/5 in all extremities. Sensory grossly intact. Cerebellar exam normal. Normal gait. Psych: Awake, alert, with orientation to person, place and time. Behavior, mood, and affect are within normal limits. 10:10 ENT: Nose: External nose: no obvious acute abnormality, Nasal septum: is midline, Nasal mucosa: Dried blood. Mouth: is normal, no acute changes, Lips: normal, Oral mucosa: normal, Posterior pharynx: is normal. Vital Signs: 07:22 BP 156 / 65; Pulse 81; Resp 16; Temp 98.8; Pulse Ox 95% on R/A; ll2 08:09 BP 138 / 81; Pulse 81; Resp 16; Pulse Ox 95% on R/A; ll2 09:00 BP 146 / 55; Pulse 70; Resp 16; Pulse Ox 94% on R/A; ll2 10:00 BP 149 / 46; Pulse 62; Resp 13; Pulse Ox 97% on R/A; ll2 10:00 BP 167 / 99; Pulse 76; Resp 16; Pulse Ox 97% on R/A; ll2 Procedures: 10:10 Epistaxis treatment: A moderate amount of bleeding noted from Treated using posterior leonidas packing, Bleeding stopped. MDM: 07:22 Patient medically screened. leonidas 10:13 Differential diagnosis: nasal fracture, trauma, sinusitis, spontaneous epistaxis. Data leonidas reviewed: vital signs, nurses notes, lab test result(s). Data interpreted: library monitor: rate is 70 beats/min, rhythm is regular, Pulse oximetry: on room air is 94 %. Test interpretation: by ED physician or midlevel provider: ECG, plain radiologic studies. Counseling: I had a detailed discussion with the patient and/or guardian regarding: the historical points, exam findings, and any diagnostic results supporting the discharge/admit diagnosis, lab results, radiology results, the need for outpatient follow up, for definitive care, an ENT specialist. 12/16 07:29 Order name: Basic Metabolic Panel; Complete Time: 09:05 [facility] 12/16 07:29 Order name: CBC with Diff; Complete Time: 09:05 [facility] 12/16 07:29 Order name: LFT's; Complete Time: 09:05 [facility] 12/16 07:29 Order name: Magnesium; Complete Time: 09:05 [facility] 12/16 07:29 Order name: NT PRO-BNP; Complete Time: 09:05 [facility] 12/16 07:29 Order name: PT-INR; Complete Time: 09:05 [facility] 12/16 07:29 Order name: Troponin (emerg Dept Use Only); Complete Time: 09:05 [facility] 12/16 07:29 Order name: XRAY Chest (1 view); Complete Time: 09:05 [facility] 12/16 07:29 Order name: EKG; Complete Time: 07:30 [facility] 12/16 07:29 Order name: Cardiac monitoring; Complete Time: 07:53 [facility] 12/16 07:29 Order name: EKG - Nurse/Tech; Complete Time: 07:54 [facility] 12/16 07:29 Order name: IV Saline Lock; Complete Time: 08:43 [facility] 12/16 07:29 Order name: Labs collected and sent; Complete Time: 08:43 [facility] 12/16 07:29 Order name: O2 Per Protocol; Complete Time: 07:54 [facility] 12/16 07:29 Order name: O2 Sat Monitoring; Complete Time: 07:54 [facility] Administered Medications: 08:11 Drug: NS 0.9% 1000 ml Route: IV; Rate: 125 ml/hr; Site: right hand; ll2 10:29 Follow up: Response: No adverse reaction; IV Status: Completed infusion; IV Intake: ll2 500ml 08:15 Drug: Huy-Synephrine [place] 0.5 % 2 sprays Route: Intranasal; Site: right nare; ll2 08:30 Follow up: Response: No adverse reaction ll2 10:15 Drug: Rocephin 1 grams Route: IV; Rate: per protocol; Site: right hand; ll2 10:29 Follow up: Response: No adverse reaction; IV Status: Completed infusion; IV Intake: [id number] Disposition: 12/17/19 10:15 Discharged to Home. Impression: Epistaxis. - Condition is Stable. - Discharge Instructions: Nosebleed, Adult, Nosebleed, [id number]. - Prescriptions for Keflex 500 mg Oral Capsule - take 1 capsule by ORAL route every 6 hours for 7 days; 28 capsule. - Medication Reconciliation Form, Thank You Letter, Antibiotic Education, Prescription Opioid Use form. - Follow up: Private Physician; When: 2 - 3 days; Reason: Recheck today's complaints, Continuance of care, Re-evaluation by your physician. Follow up: Doris Rosenthal MD; When: 2 - 3 days; Reason: Recheck today's complaints, Continuance of care, Re-evaluation by your physician. - Problem is new. - Symptoms have improved. Signatures: Dispatcher [employer] EDMS Jamie Reid MD MD cha Leal, Jahala RN RN [id number] Karoline Dorsey RN RN ll2 Corrections: (The following items were deleted from the chart) 11:03 10:15 12/17/2019 10:15 Discharged to Home. Impression: Epistaxis. Condition is Stable. ll2 Forms are Medication Reconciliation Form, Thank You Letter, Antibiotic Education, Prescription Opioid Use. Follow up: Private Physician; When: 2 - 3 days; Reason: Recheck today's complaints, Continuance of care, Re-evaluation by your physician. Follow up: Doris Rosenthal; When: 2 - 3 days; Reason: Recheck today's complaints, Continuance of care, Re-evaluation by your physician. Problem is new. Symptoms have improved. leonidas
--- NOTE | 2019-12-17 10:17 | ER ---
Nurse's Notes [facility] Name: Javan Burrows Age: 84 yrs Sex: Male : 1935 Arrival Date: 12/17/2019 Time: 07:21 Bed 18 Private MD: Diagnosis: Epistaxis Presentation: 12/16 07:22 Chief complaint: EMS states: toned out for nose bleed that began around 0200, ems on ll2 scene at 0630 after pt tried to stop the bleeding unsuccessfully. Ems states they got the bleeding to stop upon departure but began again in route to ed. Coronavirus screen: Client denies travel out of the [place] in the last 14 days. At this time, the client does not indicate any symptoms associated with coronavirus-19. Ebola Screen: Patient negative for fever greater than or equal to 101.5 degrees Fahrenheit, and additional compatible Ebola Virus Disease symptoms. Initial Sepsis Screen: Does the patient meet any 2 criteria? No. Patient's initial sepsis screen is negative. Does the patient have a suspected source of infection? No. Patient's initial sepsis screen is negative. Risk Assessment: Do you want to hurt yourself or someone else? Patient reports no desire to harm self or others. Onset of symptoms was December 17, 2019. 07:22 Method Of Arrival: EMS: [facility] 07:22 Acuity: GOLDIE 3 ll2 07:22 Care prior to arrival: None. 2 Triage Assessment: 07:26 General: Appears in no apparent distress. Behavior is calm, cooperative, appropriate ll2 for age. Pain: Denies pain. EENT: Reports nose bleed after rubbing it, unable to stop bleeding, blood clots noted upon inspection. . Neuro: Level of Consciousness is awake, alert, obeys commands, Oriented to person, place, time, situation. Cardiovascular: Patient's skin is warm and dry. Respiratory: Airway is patent Respiratory effort is even, unlabored, Respiratory pattern is regular, symmetrical. GI: No signs and/or symptoms were reported involving the gastrointestinal system. Derm: Skin is intact. Musculoskeletal: Amputation of right leg bka. Historical: - Allergies: 07:26 NKA; ll2 - Home Meds: 07:44 tamsulosin 0.4 mg Oral cp24 1 cap once daily [Active]; allopurinol 300 mg Oral tab 1 ll2 tab once daily [Active]; furosemide 40 mg Oral tab 1 tab 2 times per day [Active]; carvedilol 3.125 mg oral tab 1 tab 2 times per day [Active]; glimepiride 4 mg Oral tab 1 tab once daily [Active]; atorvastatin 40 mg Oral tab 1 tab once daily [Active]; potassium chloride 20 mEq Oral TbTQ 1 tab once daily [Active]; aspirin 81 mg Oral chew 1 tab once daily [Active]; Tresiba FlexTouch U-100 subcutaneous subcutaneous [Active]; - PMHx: 07:26 Diabetes - NIDDM; Hypertension; a-fib; Gout; Myocardial infarction; ll2 07:54 Pacemaker; ll2 - Immunization history:: Adult Immunizations up to date. - Social history:: Smoking status: Patient denies any tobacco usage or history of. - Family history:: not pertinent. Screenin:45 Abuse screen: Denies threats or abuse. Denies injuries from another. Nutritional ll2 screening: No deficits noted. Tuberculosis screening: No symptoms or risk factors identified. Fall Risk IV access (20 points). Total Alonzo Fall Scale indicates No Risk (0-24 pts). Assessment: 07:45 Reassessment: Dr. Reid at bedside. ll2 07:46 General: see triage assessment. ll2 08:23 Reassessment: Patient and/or family updated on plan of care and expected duration. Pain ll2 level reassessed. Patient is alert, oriented x 3, equal unlabored respirations, skin warm/dry/pink. Patient denies pain at this time. 08:43 Reassessment: Pt reports he doesn't feel the blood going down the back of his throat ll2 anymore, reports burning sensation to right nares where the rhino rocket is placed, ERD notified, VO to remove 1 cc of air from rhino-rocket. 1 cc of air removed as ordered, pt reports relief of symptoms. Pt reports unable to provide urine sample at this time. 09:53 Reassessment: Pt inquiring what the POC is, ERD notified and reports he will be to ll2 bedside momentarily. pt notified of plan of care, and updated on wait time. 10:26 Reassessment: Pt will be discharged once ERD returns for reassessment. ll2 Vital Signs: 07:22 BP 156 / 65; Pulse 81; Resp 16; Temp 98.8; Pulse Ox 95% on R/A; ll2 08:09 BP 138 / 81; Pulse 81; Resp 16; Pulse Ox 95% on R/A; ll2 09:00 BP 146 / 55; Pulse 70; Resp 16; Pulse Ox 94% on R/A; ll2 10:00 BP 149 / 46; Pulse 62; Resp 13; Pulse Ox 97% on R/A; ll2 10:00 BP 167 / 99; Pulse 76; Resp 16; Pulse Ox 97% on R/A; ll2 ED Course: 07:21 Patient arrived in ED. ll2 07:22 Jamie Reid MD is Attending Physician. leonidas 07:24 Triage completed. ll2 07:44 Arm band placed on right wrist. ll2 07:45 Patient has correct armband on for positive identification. Bed in low position. Call ll2 light in reach. Side rails up X2. shelter monitor on. Pulse ox on. NIBP on. 07:46 XRAY Chest (1 view) In Process Unspecified. EDMS 07:53 Karoline Dorsey RN is Primary Nurse. ll2 07:55 Missed attempt(s): 22 gauge in right hand. Bleeding controlled, band aid applied, ll2 catheter tip intact. 07:55 EKG done, by ED staff, reviewed by Jamie Reid MD. Initial lab(s) drawn, by ED ll2 staff, sent to lab. Inserted saline lock: 22 gauge in right hand, using aseptic technique. ,using aseptic technique. inserted by AGUSTINA pacheco Blood collected. 08:30 Warm blanket given. ll2 10:15 Doris Rosenthal MD is Referral Physician. leonidas 11:02 No provider procedures requiring assistance completed. IV discontinued, intact, ll2 bleeding controlled, No redness/swelling at site. Pressure dressing applied. Administered Medications: 08:11 Drug: NS 0.9% 1000 ml Route: IV; Rate: 125 ml/hr; Site: right hand; ll2 10:29 Follow up: Response: No adverse reaction; IV Status: Completed infusion; IV Intake: ll2 500ml 08:15 Drug: Huy-Synephrine [place] 0.5 % 2 sprays Route: Intranasal; Site: right nare; ll2 08:30 Follow up: Response: No adverse reaction ll2 10:15 Drug: Rocephin 1 grams Route: IV; Rate: per protocol; Site: right hand; ll2 10:29 Follow up: Response: No adverse reaction; IV Status: Completed infusion; IV Intake: [id number] Intake: 10:29 IV: 10ml; Total: 10ml. ll2 10:29 IV: 500ml; Total: 510ml. 2 Outcome: 10:15 Discharge ordered by . leonidas 11:02 Discharged to home via wheelchair. ll2 11:02 Condition: stable 11:02 Discharge instructions given to patient, family, Instructed on discharge instructions, follow up and referral plans. medication usage, Demonstrated understanding of instructions, follow-up care, medications, Prescriptions given X 1. 11:03 Patient left the ED. 2 Signatures: Dispatcher [employer] Jamie Hyde MD MD cha [place], Lacie, RN RN 2
[2019-12-17] MEDS ORDERED: CEFTRIAXONE/SWI 1gm 1 GM/10 ML SYR ONE (10:26)
[2019-12-17 12:21] VITALS: TEMP 98.8
[2019-12-17 12:26] VITALS: BP 167/99; O2SAT 97
--- NOTE | 2019-12-18 18:07 | EKG ---
Test Date: 2019-12-17 Test Time: 07:59:00 Field Director: ACE MEASUREMENT RESULTS: Intervals: Rate: 74 [place]: QRSD: 108 QT: 416 QTc: 461 [place]: P: [place]: QRS: -42 T: 36 INTERPRETIVE STATEMENTS: Atrial fibrillation with premature ventricular or aberrantly conducted complexes Left axis deviation Low voltage QRS Cannot rule out Anterior infarct, age undetermined Abnormal ECG Compared to ECG 06/05/2018 09:48:54 Ventricular premature complex(es) now present Left-axis deviation now present Low QRS voltage now present Myocardial infarct finding now present Electronically Signed On 12-18-19 18:02:54 CHIEF EXECUTIVE OR MANAGING DIRECTOR by Jose Guadalupe Cohen
== END 2019-12-17 11:03 | disposition home or self-care (01) ==
LOC: ER 07:17
PROC: 2Y41X5Z Packing of Nasal Region using Packing Material (ICD-10-PCS; principal; 2019-12-17)
DX: R04.0 Epistaxis (principal); I10 Essential (primary) hypertension; E11.9 Type 2 diabetes mellitus without complications; I48.91 Unspecified atrial fibrillation; Z79.82 Long term (current) use of aspirin; Z95.0 Presence of cardiac pacemaker
CPT/HCPCS: 96361; 93005; 85025; 80048; 36415; 83735; 85610; 80076; 84484; 83880; 71045; 96374; 99285; 30905; 30901; J0696; J7040

== ENCOUNTER 2020-02-06 09:38 | Emergency (ER) | payer OTHER, BC ==
--- OUTSIDE RECORDS SUMMARY | 2020-02-06 09:40 | XMS REPORT | Clinical Summary ---
:1935 Author Organization [facility] Address [address] [place] [address] Care Team Providers Name Role Phone Asked, [...] EYE EXAM 1945 DIABETIC FOOT EXAM 1945 COVID-19 VACCINE (#1) 1953 SHINGLES VACCINES (#1) 1987 INFLUENZA VACCINE 09/07/2019 12/25/2008, 12/12/2007 65+ PNEUMOCOCCAL VACCINE Completed 06/21/2010 Results Not on fileafter 02/05/2019 Insurance Payer Benefit Plan / Subscriber ID Effective Dates Phone Addre ss Type Group MEDICARE MEDICARE PART A [id number] 2002-Present REINALDO FRANK Medicare AND B BCBS BCBS CHOICE [id number] 2015-Present PPO PPO/FEDERAL EMPL PPO Advance Directives For more information, please contact: [phone] Type Date Recorded 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
--- OUTSIDE RECORDS SUMMARY | 2020-02-06 09:40 | XMS REPORT | Clinical Summary ---
:1935 Author Organization [facility] Address [address] [place] [address] Care Team Providers Name Role Phone Joe [...] YRS Completed 06/21/2010 Results Not on fileafter 02/05/2019 Insurance Payer Benefit Plan Subscriber ID Effective Phone Address Typ e / Group Dates MEDICARE MEDICARE A B [id number] 2002-Fre[place] and[place] nt BLUE BCBS PPO POS [id number] 2015-Freeman [phone] [address] PPO CROSS/BLUE EPO CHOICE nt 12 [id number] [place] [address] Guarantor Name Account Type Relation to Date of Phone Billing Patient Address Javan Burrows Personal/Family Self 1935 [address] [facility] (Home) [place] [address] Advance Directives For more information, please contact: [phone] Code Status Date Activated Date Inactivated Comments Full Code 05/30/2017 10:08 PM 06/19/2017 7:55 PM This code status was determined by: Patient
--- OUTSIDE RECORDS SUMMARY | 2020-02-06 09:45 | XMS REPORT | Continuity of Care Document ---
:1935 Author Organization [facility] t Address [address] [place] [address] Care Team Providers Name Role Phone Sharpless Primary Care Physician SHARIFA HART Attending Clinician Unavailable SHARIFA HART Admitting Clinician Unavailable Problems Condition Condition Condition Status Onset Resolution Last Treating Co mments Source Name Details Category Date Date Treatment Clinician Date Disorienta Disorienta Disease Active [facility] [place] A-fib A-fib Disease Active [facility] [place] Hypertensi Hypertensi Disease Active [facility] on on 05-31 [facility] [place] Hypernatre Hypernatre Disease Active [facility] nirav nirav 05-31 [facility] 00 [place] Acute Acute Disease Active [facility] blood loss blood loss 25 [facility] kes - anemia anemia 00:00: Medical 00 [place] 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 00:00: Medica l with with 00 Center complicati complicati on, on, without without long-term long-term current current use of use of insulin insulin Leukocytos Leukocytos Disease Active [facility] is is 25 [facility] 00 [place] Agitation Agitation Disease Active [facility] 4[facility]25 [facility] 00 [place] Acute Acute Disease Active [facility] encephalop encephalop 4-25 [facility] - athy athy 00:00: Medical 00 [place] Acute Acute Disease Active [facility] kidney kidney 4-25 [facility] injury injury 00:00: Medical 00 [place] GIB GIB Disease Active [facility] (gastroint (gastroint 4-24 [facility] kes - estinal estinal 00:00: Medical bleeding) bleeding) 00 Cent er Cough Cough Disease Active [facility] 3[facility]23 [facility]: st 00 Rash Rash Disease Active 2015-02 [facility] Methodi 00:00: st 00 Hypertensi Hypertensi Disease [...] Disease Active 2015-02 [place] nerve nerve [facility] disease disease 00:00: st 00 Seizure Seizure Disease Active 2015-02 [facility] disorder disorder Method i 00:00: st 00 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 0-12 Hi [place] artery artery 00:00: st 00 Chronic Chronic Disease Active 2015-02 [facility] ischemic ischemic 0-12 Method i heart heart 00:00: st disease disease 00 Chronic Chronic Disease Active 2015-02 [facility] kidney kidney 0-12 [facility] disease, disease, 00:00: st stage III stage III 00 (moderate) (moderate) Delayed Delayed Disease Active 2015-02 [facility] surgical surgical 0-12 Method i wound wound 00:00: st healing healing 00 Edema of Edema of Disease Active 2015-02 [place] lower lower 0-12 [facility] extremity extremity 00:00: st 00 Vertigo Vertigo Disease Active 2015-02 [facility] 0-12 [facility]i 00:00: st 00 Knee pain Knee pain Disease Active 2015-02 [facility] ston 0-12 [facility]i 00:00: st 00 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 0-12 Method i 00:00: st 00 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 0-12 [facility] syndrome syndrome 00:00: [...] 00 Peripheral Peripheral Disease Active Overview : [facility] vascular vascular 5-15 S/P Method i disease disease 00:00: stents st 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 CABG [facility] erosis erosis 00:00: x 3 st Gout Gout Disease Active [facility] 2-20 [facility]i 00:00: st 00 Chronic Chronic Disease Active [facility] coronary coronary 02-06 Method i artery artery 00:00: st disease disease 00 Peripheral Peripheral Disease Active [facility] [place] arterial arterial 1 Method i occlusive occlusive 00:00: st disease disease 00 Diabetes Diabetes Disease Active [place] mellitus mellitus 06-07 Method i 00:00: st 00 Essential Essential Disease Active Keith talbot hypertensi hypertensi - Me thodi on on 00:00: st 00 Multiple-t Multiple-t Disease Active H jeromy ype ype 06-07 [facility] hyperlipid hyperlipid 00:00: st emia emia 00 Pneumonia Pneumonia Disease Active Keith ston 5- Methodi 00:00: st 00 Allergies, Adverse Reactions, Alerts This patient has no known allergies or adverse reactions. Family History Family Member Diagnosis Comments Start Date Stop Date Source Natural brother Thyroid cancer [place] [facility] Natural father Coronary artery [place] [facility] disease Natural mother Coronary artery [place] [facility] disease Other Diabetes [facility] Method ist Other Heart disease [facility] Met hodist Other Hypertension [facility] Meth odist Social History Social Habit Start Date Stop Date Quantity Comments Source History of Cigarette Smoker [facility] tobacco use Sex Assigned At [facility] M ethodist Tobacco use and 2016-02-04 2016-02-04 Never used [facility] ethodist exposure 00:00:00 00:00:00 Alcohol intake 2016-02-04 2016-02-04 Current drinker [place] [facility] 00:00:00 00:00:00 of alcohol (finding) Alcohol Comment 2015-11-18 2015-11-18 moderate- 2 [place] [facility] 00:00:00 00:00:00 drinks weekly Smoking Status Start Date Stop Date Source [facility] [place] Former smoker 2016-02-04 00:00:00 2016-02-04 00:00:00 [facility] Medications Ordered Filled Start Stop Current Ordering Indication Dosage Frequency Signature Comments Components Source Medication Medication Date Date Medication? Clinician (SIG) Name Name magnesium 2017- Yes 400mg Q.5D Take [address] oxide 400 5-14 mg by [facility] - mg Cap 17:55: mouth 2 Medical 47 (two) Center times daily. allopurinol Yes 100mg QD Take [address] (ZYLOPRIM) 5-14 mg by [facility] - 100 MG 17:55: mouth Medical tablet 47 daily. Center pantoprazol Yes 40mg Q.5D Take [address] [facility] [facility] e 5-14 tablet (40 [facility] - (PROTONIX) 00:00: mg total) Me dical 40 MG 00 by mouth 2 Center tablet (two) times daily. folic acid Yes 1mg QD Take [address] (FOLVITE) 1 4-05 by mouth Luke s - MG tablet 00:00: daily. Medica l 00 [place] metFORMIN Yes TAKE BY [place] (GLUCOPHAGE 3-26 MOUTH 1/2 Met hodi ) 500 mg 17:06: TABLET 2 st tablet 20 TIMES A DAY allopurinol 2017- Yes 100mg QD Take 100 [place] (ZYLOPRIM) 3-26 mg by Methodi 100 MG 17:06: mouth st tablet 20 daily. folic acid 2017- Yes 1mg QD Take 1 mg [place] (FOLVITE) 1 3-26 by mouth Meth chioma MG tablet 17:06: daily. st 20 furosemide 2017-0 Yes 40mg Q.5D Take 40 mg [place] (LASIX) 40 3-26 by mouth 2 Met hodi mg tablet 17:06: (two) st 20 times a day. atorvastati Yes 40mg QD Take [address] [facility] n (LIPITOR) 3-26 by mouth Luke s - 40 MG 00:00: nightly. Medical tablet 00 Center lisinopril Yes 20mg QD Take 2 [place] (PRINIVIL,Z 3-26 tablets Metho di ESTRIL) 10 00:00: ([address] mg tablet 00 total) by mouth nightly for 30 days. furosemide Yes 40mg Take [address] (LASIX) 40 3-20 by mouth 2 [facility] - MG tablet 00:00: (two) Medical 00 times Center daily. glimepiride 2015-02 Yes 2mg QD Take 2 mg [place] (AMARYL) 2 2-03 by mouth Metho di MG tablet 00:00: once st 00 daily. Tresiba Tresiba Yes Abbi inject [address] FlexTouch FlexTouch [place] units [facility] Atorvastati Atorvastati Yes Abbi TAKE [address] [facility] [facility] n Calcium n Calcium [place] TABLET BY [facility] - MOUTH Memoria DAILY l Outpati ent Clinics Allopurinol Allopurinol Yes Abbi [address] [facility]win [facility] Glimepiride Glimepiride Yes Abbi [address] [facility] Kirwin with [facility] - breakfast Memoria or the l first main Outpati meal of ent the day Clinics Potassium Potassium Yes Abbi [address] [facility] Chloride Chloride [place] with food L [facility] - [facility] ent Clinics Lasix Lasix Yes Abbi [address] [facility] Tamsulosin Tamsulosin Yes Abbi [address] [facility] HCl HCl [facility] Tamsulosin Tamsulosin Yes Abbi [address] [facility] [address] HCl HCl [place] Once a day [facility] - Orally 90 Memoria days l Outpati ent Clinics BD BD Yes Abbi [address] [facility] Ultra-Fine Ultra-Fine [place] with [place] kes - Milla Pen Milla Pen tresiba Walter cat Brush Brush l Outpati ent Clinics Carvedilol Carvedilol Yes Abbi not [facility]win defined [facility] Aspirin Aspirin Yes Abbi [address] [facility] [facility] Magnesium Magnesium Yes Abbi [address] [facility] Oxide Oxide [place] as needed [facility] Vitamin B Vitamin B Yes Abbi [address] [facility] [facility] Complex Complex [place] Immunizations Ordered Immunization Filled Immunization Date Status Commen ts Source Name Name Pneumococcal 2010-06-21 Completed [place] Polysaccharide 00:00:00 [facility] Influenza Trivalent 2008-12-25 Completed [place] 00:00:00 [facility] Influenza Trivalent 2007-12-12 Completed [place] 00:00:00 [facility] Procedures This patient has no known procedures. Plan of Care Planned Activity Planned Date Details Comments Source Future Scheduled 2019-10-[address] [facility] - Test 00:00:00 (#1) [code = Medical Center INFLUENZA VACCINE (#1)] Future Scheduled 2019-09-07 INFLUENZA VACCINE [place] [facility] Test 00:00:00 [code = INFLUENZA VACCINE] Future Scheduled 2017-12-[address] L[facility]e kes - Test 00:00:00 measurement Medical Center (procedure) [code = 48353307] Future Scheduled 2003-03-[address] [facility] - Test 00:00:00 WELLNESS (YEAR 2 or Medical Center FIRST YEAR if no IPPE) [code = MEDICARE ANNUAL WELLNESS (YEAR 2 or FIRST YEAR if no IPPE)] Future Scheduled 1987 SHINGLES VACCINES [place] [facility] Test 00:00:00 (#1) [code = SHINGLES VACCINES (#1)] Future Scheduled 1953 COVID-19 VACCINE (#1) [place] [facility] Test 00:00:00 [code = COVID-19 VACCINE (#1)] Future Scheduled 1947 DIABETIC EYE EXAM [facility] Test 00:00:00 [code = DIABETIC EYE Medical Center EXAM] Future Scheduled [address] [facility] - Test 00:00:00 examination Medical Center (regime/therapy) [code = 095519489] Future Scheduled 1947 Urine screening for [facility] Test 00:00:00 protein (procedure) Medical Center [code = 818717382] Future Scheduled 1947 DIABETES: RETINAL EYE [place] [facility] Test 00:00:00 EXAM [code = DIABETES: RETINAL EYE EXAM] Future Scheduled 1947 DIABETIC FOOT EXAM [place] [facility] Test 00:00:00 [code = DIABETIC FOOT EXAM] Encounters Start End Encounter Admission Attending Care Care Encounter Source Date/Time Date/Time Type Type Clinicians Facility Department ID 2019-12-25 2019-12-25 Outpatient [facility] [id number] [facility] 2019-11-27 2019-11-27 [id number] [facility] 2019-11-20 2019-11-20 Out[facility] [id number] [facility] 2019-11-13 2019-11-13 Out[facility] [id number] [facility] 2019-10-30 2019-10-30 Out[facility] [id number] [facility] 2019-08-13 2019-08-13 [facility] [id number] 13:20:00 13:20:00 [facility] Medicine l Medicine Outpati ent Clinics 2019-08-12 2019-08-12 [facility] [id number] 12:03:00 12:03:00 t [facility] Medicine l Medicine Outpati ent Clinics 2019-07-23 2019-07-23 [facility] [id number] 14:15:00 14:15:00 t [facility] Medicine l Medicine Outpati ent Clinics 2019-07-17 2019-07-17 [facility] [id number] 11:45:00 11:45:00 t [facility] Medicine l Medicine Outpati ent Clinics 2019-07-15 2019-07-15 [facility] [id number] 14:26:00 14:26:00 t [facility] Road Luke s - Road [facility] Medicine l Medicine Outpati ent Clinics 2019-05-20 2019-05-20 [facility] [id number] 11:56:00 11:56:[address] Luke [place] - Drive [facility] l Medicine Outpati ent Clinics 2019-05-17 2019-05-17 [facility] [id number] 15:48:00 15:48:[address] Luke s - Drive [facility] Medicine l Medicine Outpati ent Clinics 2019-02-27 2019-02-27 [facility] [id number] 13:15:00 13:15:[address] Luke s - Drive [facility] l Medicine Outpati ent Clinics 2018-12-26 2018-12-26 [facility] [id number] 15:45:00 15:45:00 [place] Luke s - Drive [facility] Medicine Outpati ent Clinics 2018-11-28 2018-11-28 [facility] [id number] 15:00:00 15:00:[address] Luke s - Drive [facility] l Medicine Outpati ent Clinics 2018-10-17 2018-10-17 [facility] [id number] 15:38:00 15:38:00 [place] Luke s - Drive [facility] l Medicine Outpati ent Clinics 2018-10-17 2018-10-17 [facility] [id number] 15:15:00 15:15:00 [place] Luke s - Drive [facility] Medicine l Medicine Outpati ent Clinics 2018-10-02 2018-10-02 [facility] [id number] 11:25:00 11:25:[address] Luke s - Drive [facility] Medicine Outpati ent Clinics 2018-08-08 2018-08-08 [facility] [id number] 10:25:00 10:25:00 t Specialty/U [place] kes - Specialty rology Memori a /Urology Clinic l Clinic Outpati ent Clinics 2018-06-11 2018-06-11 Outpatient Vineet Oak[facility] [id number] 11:57:00 11:57:00 t Specialty/U [place]e kes - Specialty rology [facility] a /Urology Clinic l Clinic Outpati ent Clinics 2018-05-14 2018-05-14 Outpatient Vineet Oakley [id number] 10:30:00 10:30:00 t [place] Lu s - Drive [facility] Results Test Description Test Time Test Comments Results Result Sourc e Comments U/S, ABDOMINAL, 2017-06-29 Abdomen limited Addendum LIMITED 05:54:00 area? Add comment BeginsREPORT if clarification is STATUS:A PATIENT needed.->LiverReaso ID: [id number] n for exam:->r/o Indication: Right cirrhosis upper quadrant pain. Signed: Marci Levine MDReport Verified Date/Time: 06/29/2017 05:54:07 Reading Location: [facility] C013Y CT Body Reading RoomAddendum EndsFINAL [...] MDReport Verified Date/Time: 06/04/2017 06:44:53 Reading Location: [facility] C013X Ortho Consult Reading Room -GLUCOSE METER 2017-06-19 16:56:00 Test Item Value Reference Range Interpretation Comme nts POC-GLUCOSE METER (BEAKER) (test 202 mg/dL 70-[address] [facility] [address] [facility] code = 1538) [facility] [id number] POCT-GLUCOSE [id number] 12:23:00 Test Item Value Reference Range Interpretation Comments POC-GLUCOSE METER 223 mg/dL 70-[address] [facility] 6720 (BEAKER) (test code = MIKY [place] 1538) [id number] POCT-GLUCOSE [id number] 08:07:00 Test Item Value Reference Range Interpretation Comments POC-GLUCOSE METER 122 mg/dL 70-[address] [facility] 6720 (BEAKER) (test code = MIKY [place] 1538) [id number] 07:19:00 Test Item Value Reference Range Interpretation Comments MAGNESIUM (BEAKER) (test code = 1.4 mg/dL 1.6-2.6 L 627) [id number] 07:19:00 Test Item Value Reference Range Interpretation Comments PHOSPHORUS (BEAKER) (test code = 2.7 mg/dL 2.3-4.7 604) COMPREHENSIVE METABOLIC [id number] 07:18:00 Test Item Value Reference Range Interpretation [...] PATIEN TS. CBC W/PLT COUNT & AUTO [id number] 00:06:00 Test Item Value Reference Range Interpretation [...] PERCENT (BEAKER) (test code = 2801) POCT-GLUCOSE [id number] 20:29:00 Test Item Value Reference Range Interpretation Comments POC-GLUCOSE METER 126 mg/dL 70-[address] [facility] 6720 (BEAKER) (test code = [facility] Estuardo [facility] 1538) [address] POCT-GLUCOSE [id number] 17:46:00 Test Item Value Reference Range Interpretation Comments POC-GLUCOSE METER 98 mg/dL 70-[address] [facility] 67 (BEAKER) (test code = [facility] [place] [facility] [address] 1538) POCT-GLUCOSE [id number] 13:26:00 Test Item Value Reference Range Interpretation Comments POC-GLUCOSE METER 118 mg/dL 70-[address] [facility] 6720 (BEAKER) (test code = [facility] 1538) [address] POCT-GLUCOSE [id number] 08:28:00 Test Item Value Reference Range Interpretation Comments POC-GLUCOSE METER 137 mg/dL 70-[address] [facility] 6720 (BEAKER) (test code = [facility] 1538) [id number] 05:31:00 Test Item Value Reference Range Interpretation Comments PHOSPHORUS (BEAKER) (test code = 3.1 mg/dL 2.3-4.7 604) [id number] 05:31:00 Test Item Value Reference Range Interpretation Comments MAGNESIUM (BEAKER) (test code = 1.3 mg/dL 1.6-2.6 L 627) BASIC METABOLIC [id number] 05:31:00 Test Item Value Reference Range Interpretation [...] PATIEN TS. CBC W/PLT COUNT & AUTO [id number] 05:13:00 Test Item Value Reference Range Interpretation [...] code = 414) MONOCYTES ABSOLUTE COUNT (BEAKER) 0.91 K/ L 0.30-0.82 H (test code = 415) EOSINOPHILS ABSOLUTE COUNT 0.52 K/ L 0.04-0.54 (BEAKER) (test code = 416) BASOPHILS ABSOLUTE COUNT (BEAKER) 0.07 K/ L 0.01-0.08 (test code = 417) IMMATURE GRANULOCYTES-RELATIVE 1 % 0-1 PERCENT (BEAKER) (test code = 2801) POCT-GLUCOSE [id number] 21:05:00 Test Item Value Reference Range Interpretation Comments POC-GLUCOSE METER 199 mg/dL 70-110 H TESTED AT [place] [address] ([facility]) (test code = [facility] 1538) [address] POCT-GLUCOSE [id number] 18:55:00 Test Item Value Reference Range Interpretation Comments POC-GLUCOSE METER 128 mg/dL 70-110 H TESTED AT [place] [address] ([facility]) (test code = [facility] 1538) [id number] POCT-GLUCOSE [id number] 11:34:00 Test Item Value Reference Range Interpretation Comments POC-GLUCOSE METER 144 mg/dL 70-110 H TESTED AT [place] [address] ([facility]) (test code = [facility] 1538) [id number] POCT-GLUCOSE [id number] 07:58:00 Test Item Value Reference Range Interpretation Comments POC-GLUCOSE METER 93 mg/dL 70-110 TESTED AT [place] [address] ([facility]) (test code = [facility] [address] 1538) [id number] 05:23:00 Test Item Value Reference Range Interpretation Comments PHOSPHORUS (BEAKER) (test code = 2.9 mg/dL 2.3-4.7 604) [id number] 05:23:00 Test Item Value Reference Range Interpretation Comments MAGNESIUM (BEAKER) (test code = 1.6 mg/dL 1.6-2.6 627) CBC W/PLT COUNT & AUTO [id number] 05:03:00 Test Item Value Reference Range Interpretation Comments WHITE BLOOD CELL COUNT (BEAKER) 7.0 K/ L 3.5-10.5 (test code = [...] PERCENT (BEAKER) (test code = 2801) POCT-GLUCOSE [id number] 22:10:00 Test Item Value Reference Range Interpretation Comments POC-GLUCOSE METER 100 mg/dL 70-110 TESTED AT [place] [address] ([facility]) (test code = [facility] 1538) [id number] POCT-GLUCOSE [id number] 20:51:00 Test Item Value Reference Range Interpretation Comments POC-GLUCOSE METER 195 mg/dL 70-110 H TESTED AT [place] [address] ([facility]) (test code = [facility] 1538) [id number] POCT-GLUCOSE [id number] 12:49:00 Test Item Value Reference Range Interpretation Comments POC-GLUCOSE METER 183 mg/dL 70-110 H TESTED AT [place] [address] ([facility]) (test code = [facility] 1538) [id number] POCT-GLUCOSE [id number] 08:20:00 Test Item Value Reference Range Interpretation Comments POC-GLUCOSE METER 95 mg/dL 70-110 TESTED AT [place] [address] ([facility]) (test code = [facility] [address] 1538) [id number] 07:00:00 Test Item Value Reference Range Interpretation Comments MAGNESIUM (BEAKER) (test code = 1.0 mg/dL 1.6-2.6 LL 627) [id number] 06:56:00 Test Item Value Reference Range Interpretation Comments PHOSPHORUS (BEAKER) (test code = 2.8 mg/dL 2.3-4.7 604) BASIC METABOLIC [id number] 06:56:00 Test Item Value Reference Range Interpretation [...] PATIEN TS. CBC W/PLT COUNT & AUTO [id number] 06:16:00 Test Item Value Reference Range Interpretation [...] PERCENT (BEAKER) (test code = 2801) POCT-GLUCOSE [id number] 21:45:00 Test Item Value Reference Range Interpretation Comments POC-GLUCOSE METER 174 mg/dL 70-110 H TESTED AT [place] [address] ([facility]) ([facility] = [facility] Marte [facility] 1538) [address] POCT-GLUCOSE [id number] 17:21:00 Test Item Value Reference Range Interpretation Comments POC-GLUCOSE METER 212 mg/dL 70-110 H TESTED AT [place] [address] ([facility]) (test code = [facility] Marte [facility] 1538) [address] POCT-GLUCOSE [id number] 08:21:00 Test Item Value Reference Range Interpretation Comments POC-GLUCOSE METER 107 mg/dL 70-110 TESTED AT [place] [address] ([facility]) (test code = [facility] Estuardo [facility] 1538) [address] [id number] 03:39:00 Test Item Value Reference Range Interpretation Comments PHOSPHORUS (BEAKER) (test code = 2.8 mg/dL 2.3-4.7 604) [id number] 03:39:00 Test Item Value Reference Range Interpretation Comments MAGNESIUM (BEAKER) (test code = 1.4 mg/dL 1.6-2.6 L 627) COMPREHENSIVE METABOLIC [id number] 03:39:00 Test Item Value Reference Range Interpretation [...] NOT APPLICABLE FOR DIALYSIS PATIEN TS. PROTHROMBIN [id number] 03:27:00 Test Item Value Reference Range Interpretation [...] PERCENT (BEAKER) (test code = 2801) POCT-GLUCOSE [id number] 21:20:00 Test Item Value Reference Range Interpretation Comments POC-GLUCOSE METER 101 mg/dL 70-110 TESTED AT [place] [address] ([facility]) (test code = [place] 1538) [address] BLOOD [id number] 18:00:00 Test Item Value Reference Range Interpretation Comments CULTURE ([facility]) (test No growth in 5 days code = 1095) POCT-GLUCOSE [id number] 17:25:00 Test Item Value Reference Range Interpretation Comments POC-GLUCOSE METER 273 mg/dL 70-110 H TESTED AT [place] [address] ([facility]) (test code = [place] 1538) [address] POCT-GLUCOSE [id number] 13:32:00 Test Item Value Reference Range Interpretation Comments POC-GLUCOSE METER 247 mg/dL 70-110 H TESTED AT [place] [address] ([facility]) (test code = MIKY [place] 1538) [id number] CBC W/PLT COUNT & AUTO [id number] 12:21:00 Test Item Value Reference Range Interpretation [...] 0-0 (BEAKER) (test code = 413) POCT-GLUCOSE [id number] 08:05:00 Test Item Value Reference Range Interpretation Comments POC-GLUCOSE METER 165 mg/dL 70-[address] [facility] 6720 (BEAKER) (test code = MIKY [place] 1538) [id number] 06:32:00 Test Item Value Reference Range Interpretation Comments MAGNESIUM (BEAKER) (test code = 1.0 mg/dL 1.6-2.6 LL 627) [id number] 06:31:00 Test Item Value Reference Range Interpretation Comments PHOSPHORUS (BEAKER) (test code = 2.9 mg/dL 2.3-4.7 604) BASIC METABOLIC [id number] 06:31:00 Test Item Value Reference Range Interpretation [...] NOT APPLICABLE FOR DIALYSIS PATIEN TS. POCT-GLUCOSE [id number] 21:42:00 Test Item Value Reference Range Interpretation Comments POC-GLUCOSE METER 139 mg/dL 70-[address] [facility] 6720 (BEAKER) (test code = MIKY [place] 1538) [address] POCT-GLUCOSE [id number] 17:39:00 Test Item Value Reference Range Interpretation Comments POC-GLUCOSE METER 225 mg/dL 70-[address] [facility] 6720 (BEAKER) (test code = MIKY [place] 1538) [address] POCT-GLUCOSE [id number] 12:02:00 Test Item Value Reference Range Interpretation Comments POC-GLUCOSE METER 153 mg/dL 70-[address] [facility] 6720 (BEAKER) (test code = MIKY [place] 1538) [address] POCT-GLUCOSE [id number] 09:32:00 Test Item Value Reference Range Interpretation Comments POC-GLUCOSE METER 82 mg/dL 70-[address] [facility] 6720 (BEAKER) (test code = [place] [address] 1538) [id number] 06:51:00 Test Item Value Reference Range Interpretation Comments PHOSPHORUS (BEAKER) (test code = 2.6 mg/dL 2.3-4.7 604) [id number] 06:51:00 Test Item Value Reference Range Interpretation Comments MAGNESIUM (BEAKER) (test code = 1.4 mg/dL 1.6-2.6 L 627) BASIC METABOLIC [id number] 06:51:00 Test Item Value Reference Range Interpretation [...] PATIEN TS. CBC W/PLT COUNT & AUTO [id number] 05:59:00 Test Item Value Reference Range Interpretation [...] PERCENT (BEAKER) (test code = 2801) POCT-GLUCOSE [id number] 22:42:00 Test Item Value Reference Range Interpretation Comments POC-GLUCOSE METER 143 mg/dL 70-110 H TESTED AT [place] [address] ([facility]) ([facility] = [facility] 1538) [address] POCT-GLUCOSE [id number] 17:31:00 Test Item Value Reference Range Interpretation Comments POC-GLUCOSE METER 167 mg/dL 70-110 H TESTED AT [place] [address] ([facility]) (test code = [facility] 1538) [address] POCT-GLUCOSE [id number] 12:29:00 Test Item Value Reference Range Interpretation Comments POC-GLUCOSE METER 196 mg/dL 70-110 H TESTED AT [place] [address] ([facility]) (test code = [facility] 1538) [address] POCT-GLUCOSE [id number] 07:54:00 Test Item Value Reference Range Interpretation Comments POC-GLUCOSE METER 138 mg/dL 70-110 H TESTED AT [place] [address] ([facility]) (test code = [facility] 1538) [address] [id number] 06:13:00 Test Item Value Reference Range Interpretation Comments PHOSPHORUS (BEAKER) (test code = 3.2 mg/dL 2.3-4.7 604) [id number] 06:13:00 Test Item Value Reference Range Interpretation Comments MAGNESIUM (BEAKER) (test code = 1.3 mg/dL 1.6-2.6 L 627) CBC W/PLT COUNT & AUTO [id number] 05:50:00 Test Item Value Reference Range Interpretation [...] PERCENT (BEAKER) (test code = 2801) POCT-GLUCOSE [id number] 21:11:00 Test Item Value Reference Range Interpretation Comments POC-GLUCOSE METER 160 mg/dL 70-[address] [facility] 6720 (BEAKER) (test code = [place] 1538) [address] BLOOD [id number] 18:00:00 Test Item Value Reference Range Interpretation Comments CULTURE (BEAKER) (test No growth in 5 days code = 1095) POCT-GLUCOSE [id number] 17:54:00 Test Item Value Reference Range Interpretation Comments POC-GLUCOSE METER 163 mg/dL 70-[address] [facility] 6720 (BEAKER) (test code = MIKY [place] 1538) [address] POCT-GLUCOSE [id number] 12:41:00 Test Item Value Reference Range Interpretation Comments POC-GLUCOSE METER 133 mg/dL 70-[address] [facility] 67 (BEAKER) (test code = MIKY [place] 1538) [address] BLOOD [id number] 11:00:00 Test Item Value Reference Range Interpretation Comments CULTURE (BEAKER) (test No growth in 5 days code = 1095) POCT-GLUCOSE [id number] 07:57:00 Test Item Value Reference Range Interpretation Comments POC-GLUCOSE METER 132 mg/dL 70-110 H TESTED AT [place] [address] (BEAKER) (test code = MIKY [place] 1538) [address] VANCOMYCIN LEVEL, [id number] 07:30:00 Test Item Value Reference Range Interpretation Comments VANCOMYCIN RANDOM (BEAKER) (test 31.8 ug/mL code = 523) Reference Range: No [id number] 07:09:00 Test Item Value Reference Range Interpretation Comments PHOSPHORUS (BEAKER) (test code = 3.5 mg/dL 2.3-4.7 604) [id number] 07:09:00 Test Item Value Reference Range Interpretation Comments MAGNESIUM (BEAKER) (test code = 1.4 mg/dL 1.6-2.6 L 627) BASIC METABOLIC [id number] 07:09:00 Test Item Value Reference Range Interpretation [...] PATIEN TS. CBC W/PLT COUNT & AUTO [id number] 06:27:00 Test Item Value Reference Range Interpretation [...] LYMPHOCYTES ABSOLUTE COUNT 1.71 K/ L 1.32-3.57 (AKER) (test code = 414) MONOCYTES ABSOLUTE COUNT (BEAKER) 0.66 K/ L 0.30-0.82 (test code = 415) EOSINOPHILS ABSOLUTE COUNT 0.29 K/ L 0.04-0.54 (BEAKER) (test code = 416) BASOPHILS ABSOLUTE COUNT (BEAKER) 0.05 K/ L 0.01-0.08 (test code = 417) IMMATURE GRANULOCYTES-RELATIVE 0 % 0-1 PERCENT (AKER) (test code = 2801) POCT-GLUCOSE [id number] 21:46:00 Test Item Value Reference Range Interpretation Comments POC-GLUCOSE METER 262 mg/dL 70-110 H TESTED AT [place] [address] ([facility]) (test code = [facility] Estuardo [facility] 1538) [address] POCT-GLUCOSE [id number] 17:44:00 Test Item Value Reference Range Interpretation Comments POC-GLUCOSE METER 175 mg/dL 70-110 H TESTED AT [place] [address] ([facility]) (test code = [facility] 1538) [address] POCT-GLUCOSE [id number] 12:25:00 Test Item Value Reference Range Interpretation Comments POC-GLUCOSE METER 173 mg/dL 70-110 H TESTED AT [place] [address] ([facility]) (test code = [facility] 1538) [address] BLOOD [id number] 12:00:00 Test Item Value Reference Range Interpretation Comments CULTURE ([facility]) (test No growth in 5 days code = 1095) POCT-GLUCOSE [id number] 08:52:00 Test Item Value Reference Range Interpretation Comments POC-GLUCOSE METER 183 mg/dL 70-110 H TESTED AT [place] [address] ([facility]) (test code = [facility] 1538) [address] [id number] 06:01:00 Test Item Value Reference Range Interpretation Comments PHOSPHORUS (BEAKER) (test code = 3.3 mg/dL 2.3-4.7 604) [id number] 06:01:00 Test Item Value Reference Range Interpretation Comments MAGNESIUM ([facility]) (test code = 1.8 mg/dL 1.6-2.6 627) BASIC METABOLIC [id number] 06:01:00 Test Item Value Reference Range Interpretation [...] PATIEN TS. CBC W/PLT COUNT & AUTO [id number] 04:59:00 Test Item Value Reference Range Interpretation [...] ABSOLUTE COUNT 7.18 K/ L 1.78-5.38 H (BEAKER) (test code = 670) LYMPHOCYTES ABSOLUTE COUNT 1.74 K/ L 1.32-3.57 (BEAKER) (test code = 414) MONOCYTES ABSOLUTE COUNT (BEAKER) 0.73 K/ L 0.30-0.82 (test code = 415) EOSINOPHILS ABSOLUTE COUNT 0.21 K/ L 0.04-0.54 (BEAKER) (test code = 416) BASOPHILS ABSOLUTE COUNT (BEAKER) 0.08 K/ L 0.01-0.08 (test code = 417) IMMATURE GRANULOCYTES-RELATIVE 1 % 0-1 PERCENT (BEAKER) (test code = 2801) POCT-GLUCOSE [id number] 21:51:00 Test Item Value Reference Range Interpretation Comments POC-GLUCOSE METER 203 mg/dL 70-[address] [facility] 67 ([facility]) (test code = MIKY Mrate [facility] 1538) [address] POCT-GLUCOSE [id number] 17:35:00 Test Item Value Reference Range Interpretation Comments POC-GLUCOSE METER 218 mg/dL 70-[address] [facility] 6720 ([facility]) (test code = [facility] Estuardo [facility] 1538) [address] SPUTUM CULTURE + GRAM [id number] 15:48:00 Test Item Value Reference Interpretation Comments Range CULTURE ([facility]) METHICILLIN A <1+ Methici llin (test [...] Vancomycin (test S code = 13) CULTURE (BEAKER) A <1+ Strepto coccus not (test code = 1095) group A b eta hemolyticIdenti fied by serological tamika uping. GRAM STAIN RESULT No WBCs (BEAKER) (test code = 1123) GRAM STAIN RESULT 0-5 epithelial (BEAKER) (test code cells = 402375) GRAM STAIN RESULT No organisms seen (BEAKER) (test code = 979041) <1+ Normal respiratory melanie presentPOCT-GLUCOSE [id number] 12:00:00 Test Item Value Reference Range Interpretation Comments POC-GLUCOSE METER 194 mg/dL 70-[address] [facility] 6720 (BEAKER) (test code = MIKY Marte [facility] 1538) [address] BLOOD [id number] 12:00:00 Test Item Value Reference Range Interpretation Comments CULTURE (BEAKER) (test No growth in 5 days code = 1095) BLOOD [id number] 12:00:00 Test Item Value Reference Range Interpretation Comments CULTURE (BEAKER) (test No growth in 5 days code = 1095) POCT-GLUCOSE [id number] 05:58:00 Test Item Value Reference Range Interpretation Comments POC-GLUCOSE METER 228 mg/dL 70-[address] [facility] 6720 (BEAKER) (test code = MIKY Marte [facility] 1538) [address] [id number] 04:42:00 Test Item Value Reference Range Interpretation Comments PHOSPHORUS (BEAKER) (test code = 3.1 mg/dL 2.3-4.7 604) [id number] 04:42:00 Test Item Value Reference Range Interpretation Comments MAGNESIUM (BEAKER) (test code = 1.9 mg/dL 1.6-2.6 627) BASIC METABOLIC [id number] 04:42:00 Test Item Value Reference Range Interpretation [...] PATIEN TS. CBC W/PLT COUNT & AUTO [id number] 04:27:00 Test Item Value Reference Range Interpretation [...] PERCENT (BEAKER) (test code = 2801) POCT-GLUCOSE [id number] 00:11:00 Test Item Value Reference Range Interpretation Comments POC-GLUCOSE METER 194 mg/dL 70-[address] [facility] 6720 (BEAKER) (test code = MIKY [place] 1538) [address] [id number] 20:46:00 Test Item Value Reference Range Interpretation Comments MAGNESIUM (BEAKER) (test code = 1.9 mg/dL 1.6-2.6 627) BASIC METABOLIC [id number] 20:46:00 Test Item Value Reference Range Interpretation [...] NOT APPLICABLE FOR DIALYSIS PATIEN TS. POCT-GLUCOSE [id number] 19:29:00 Test Item Value Reference Range Interpretation Comments POC-GLUCOSE METER 317 mg/dL 70-110 H TESTED AT [place] [address] ([facility]) (test code = [facility] 1538) [address] BLOOD GAS, [id number] 18:31:00 Test Item Value Reference Range Interpretation [...] -2.0-3.0 H code = 704) PATIENT TEMPERATURE (BEAKER) (test 37.0 C code = 1818) From midlinePOCT-GLUCOSE [id number] 12:03:00 Test Item Value Reference Range Interpretation Comments POC-GLUCOSE METER 107 mg/dL 70-110 TESTED AT [place] [address] ([facility]) (test code = [facility] 1538) [address] POCT-GLUCOSE [id number] 12:03:00 Test Item Value Reference Range Interpretation Comments POC-GLUCOSE METER 75 mg/dL 70-110 TESTED AT [place] [address] ([facility]) (test code = [facility] [address] 1538) [id number] 06:12:00 Test Item Value Reference Range Interpretation Comments FERRITIN (BEAKER) (test code = 361) 334 ng/mL 5-275 H VITAMIN B12 AND [id number] 06:12:00 Test Item Value Reference Range Interpretation Comments VITAMIN B12 (BEAKER) (test code = 508 pg/mL 213-816 774) FOLATE (BEAKER) (test code = 362) 16.5 ng/mL >=7.0 POCT-GLUCOSE [id number] 06:00:00 Test Item Value Reference Range Interpretation Comments POC-GLUCOSE METER 84 mg/dL 70-[address] [facility] 6720 (BEAKER) (test code = MIKY [place] [id number] 8508) IRON, TIBC, % SAT. (WITHOUT FERRITIN)2017-06-08 05:42:00 Test Item Value Reference Range Interpretation Comments IRON (BEAKER) (test code = 547) 15 ug/dL 40-160 L TOTAL IRON BINDING CAPACITY 183 ug/dL 250-450 L (BEAKER) (test code = 769) IRON % SATURATION (2) (BEAKER) 8 % 20-55 L (test code = 2590) [id number] 05:42:00 Test Item Value Reference Range Interpretation Comments PHOSPHORUS (BEAKER) (test code = 2.8 mg/dL 2.3-4.7 604) [id number] 05:42:00 Test Item Value Reference Range Interpretation Comments MAGNESIUM (BEAKER) (test code = 1.6 mg/dL 1.6-2.6 627) BASIC METABOLIC [id number] 05:42:00 Test Item Value Reference Range Interpretation [...] PATIEN TS. CBC W/PLT COUNT & AUTO [id number] 05:25:00 Test Item Value Reference Range Interpretation [...] PERCENT (BEAKER) (test code = 2801) POCT-GLUCOSE [id number] 23:41:00 Test Item Value Reference Range Interpretation Comments POC-GLUCOSE METER 180 mg/dL 70-[address] [facility] 6720 (BEAKER) (test code = MIKY KAN [place] 1538) [address] RAD, ABDOMEN/KUB, 1 VIEW [id number] 22:29:00Reason for exam:->feeding tube placementFINAL REPORT Comparison: 06/07/2017 at 9:51 PM TECHNIQUE: Frontal image of the abdomen FINDINGS: Feeding tube has been repositioned. Tip now projects in the distal stomach. No other significant change. Signed: Kali Medina Verified Date/Time: 06/07/2017 22:29:27 Reading Location: [address] Consult Reading Room RAD, ABDOMEN/KUB, 1 VIEW 2017-06-07 22:16:00Reason for exam:->feeding tube placementFINAL REPORT Comparison: 06/03/2017 TECHNIQUE: Frontal image of the abdomen FINDINGS: Feeding tube has been advanced. Distal portion is turned back upon itself and the tip projects in the fundus. Bowel gas pattern is nonspecific. Signed: Kali Medina Verified Date/Time: 06/07/2017 22:16:52 Reading Location: [address] Consult Reading Room BASIC METABOLIC PANEL 2017-06-07 19:04:00 Test Item Value Reference Range Interpretation Comments SODIUM (BEAKER) 138 meq/L 136-145 (test code = 381) POTASSIUM (BEAKER) 4.1 meq/L 3.5-5.1 (test code = 379) CHLORIDE (BEAKER) 102 meq/L 98-107 (test code = 382) CO2 (BEAKER) (test 28 meq/L code = 355) BLOOD UREA NITROGEN 27 mg/dL 7-21 H ([facility]) (test code = 354) CREATININE ([facility]) 0.83 mg/dL 0.57-1.25 (test code = 358) GLUCOSE RANDOM 179 mg/dL 70-105 H ([facility]) (test code = 652) CALCIUM ([facility]) 8.6 mg/dL 8.4-10.2 (test code = 697) EGFR ([facility]) (test 89 mL/min/1.73 ESTIMA JOEL GFR IS code = 1092) sq m NOT ACCURATE CREATININE CLEARANCE IN PREDICTING GLOMERULAR FILTRATION RATE . ESTIMATED GFR I S NOT APPLICABLE FOR DIALYSIS PATIEN TS. POCT-GLUCOSE [id number] 18:24:00 Test Item Value Reference Range Interpretation Comments POC-GLUCOSE METER 198 mg/dL 70-110 H TESTED AT [place] [address] ([facility]) (test code = [facility] 1538) [address] [id number] 17:53:00 Test Item Value Reference Range Interpretation Comments PROCALCITONIN ([facility]) (test code = < ng/mL <0.05 3036) SEPSIS RISK (ng/mL)Low: 0.05-0.50Intermediate: 0.51-2.00High: >=2.01RETICULOCYTE [id number] 17:06:00 Test Item Value Reference Range Interpretation Comments RETICULOCYTE COUNT PCT ([facility]) (test 2.7 % 0.5-1.8 H code = 575) POCT-GLUCOSE [id number] 13:07:00 Test Item Value Reference Range Interpretation Comments POC-GLUCOSE METER 240 mg/dL 70-110 H TESTED AT [place] [address] ([facility]) (test code = [facility] 1538) [address] RAD, CHEST, 1 VIEW, NON [id number] 08:42:00Reason for exam:- >intubatedShould this be performed at the bedside?->YesFINAL REPORT Chest one view compared to June 06, 2017 Discussion: Left chest pacemaker, feeding tube, right IJ line in place. There is pulmonary congestion with subtle suspected airspace opacity left lung base all unchanged. No gross effusion or pneumothorax. Signed: Jerel Noguera Verified Date/Time: 06/07/2017 08:42:41 Reading Location: [facility] Radiology Reading Room TROPODINA [id number] 05:52:00 Test Item Value Reference Range Interpretation Comments TROPONIN I (BEAKER) (test code = 0.03 ng/mL 0.00-0.03 397) [...] acidosis, acute neurological disease, and persistent tachyarrhythmia.POCT-GLUCOSE [id number] 05:48:00 Test Item Value Reference Range Interpretation Comments POC-GLUCOSE METER 148 mg/dL 70-[address] [facility] 6720 (BEAKER) (test code = MIKY Marte [facility] 1538) [address] [id number] 05:43:00 Test Item Value Reference Range Interpretation Comments PHOSPHORUS (BEAKER) (test code = 2.9 mg/dL 2.3-4.7 604) [id number] 05:43:00 Test Item Value Reference Range Interpretation Comments MAGNESIUM (BEAKER) (test code = 1.6 mg/dL 1.6-2.6 627) BASIC METABOLIC [id number] 05:43:00 Test Item Value Reference Range Interpretation [...] DIALYSIS PATIEN TS. LACTIC ACID, VENOUS, WHOLE [id number] 05:41:00 Test Item Value Reference Range Interpretation Comments LACTATE BLOOD VENOUS (2) (BEAKER) 0.9 mmol/L 0.5-2.2 (test code = 2872) Effective 06/10/2015: Units/Reference Range ChangeNew: 0.5-2.2 mmol/L Previous: 5-20 mg/dLCBC W/PLT COUNT & AUTO [id number] 05:26:00 Test Item Value Reference Range Interpretation [...] H (test code = 700) BASIC METABOLIC [id number] 00:34:00 Test Item Value Reference Range Interpretation [...] NOT APPLICABLE FOR DIALYSIS PATIEN TS. POCT-GLUCOSE [id number] 23:42:00 Test Item Value Reference Range Interpretation Comments POC-GLUCOSE METER 195 mg/dL 70-[address] [facility] 6720 (BEAKER) (test code = MIKY Marte [facility] 1538) [address] BASIC METABOLIC [id number] 17:50:00 Test Item Value Reference Range Interpretation [...] NOT APPLICABLE FOR DIALYSIS PATIEN TS. POCT-GLUCOSE [id number] 17:48:00 Test Item Value Reference Range Interpretation Comments POC-GLUCOSE METER 228 mg/dL 70-[address] [facility] 6720 (BEAKER) (test code = [facility] 1538) [address] POCT-GLUCOSE [id number] 12:03:00 Test Item Value Reference Range Interpretation Comments POC-GLUCOSE METER 237 mg/dL 70-[address] [facility] 6720 (BEAKER) (test code = [facility] 1538) [address] BASIC METABOLIC [id number] 09:39:00 Test Item Value Reference Range Interpretation [...] NOT APPLICABLE FOR DIALYSIS PATIEN TS. CALCIUM, [id number] 04:52:00 Test Item Value Reference Range Interpretation Comments CALCIUM IONIZED (BEAKER) (test 1.08 mmol/L 1.12-1.27 L code = 698) PH, BLOOD (BEAKER) (test code = 7.42 1810) [id number] 04:43:00 Test Item Value Reference Range Interpretation Comments PHOSPHORUS (BEAKER) (test code = 3.5 mg/dL 2.3-4.7 604) [id number] 04:43:00 Test Item Value Reference Range Interpretation Comments MAGNESIUM (BEAKER) (test code = 1.8 mg/dL 1.6-2.6 627) LACTIC ACID, VENOUS, WHOLE [id number] 04:34:00 Test Item Value Reference Range Interpretation Comments LACTATE BLOOD VENOUS (2) (BEAKER) 1.6 mmol/L 0.5-2.2 (test code = 2872) Effective 06/10/2015: Units/Reference Range ChangeNew: 0.5-2.2 mmol/L Previous: 5-20 mg/dLRAD, CHEST, 1 VIEW, NON [id number] 04:29:00Reason for exam:- >intubatedShould this be performed [...] MDReport Verified Date/Time: 06/06/2017 04:29:24 Reading Location: [address] Transitional Reading Room CBC W/PLT COUNT & AUTO [id number] 04:14:00 Test Item Value Reference Range Interpretation [...] PERCENT (BEAKER) (test code = 2801) POCT-GLUCOSE [id number] 04:08:00 Test Item Value Reference Range Interpretation Comments POC-GLUCOSE METER 262 mg/dL 70-110 H TESTED AT [place] [address] ([facility]) ([facility] = [facility] 1538) [address] POCT-GLUCOSE [id number] 04:08:00 Test Item Value Reference Range Interpretation Comments POC-GLUCOSE METER 288 mg/dL 70-110 H TESTED AT [place] [address] ([facility]) (test code = [facility] 1538) [address] POCT-GLUCOSE [id number] 03:43:00 Test Item Value Reference Range Interpretation Comments POC-GLUCOSE METER 248 mg/dL 70-110 H TESTED AT [place] [address] ([facility]) (test code = [facility] 1538) [address] BASIC METABOLIC [id number] 01:47:00 Test Item Value Reference Range Interpretation [...] APPLICABLE FOR DIALYSIS PATIEN TS. VANCOMYCIN LEVEL, [id number] 21:49:00 Test Item Value Reference Range Interpretation Comments VANCOMYCIN TROUGH (BEAKER) (test 21.4 ug/mL 10.0-20.0 H code = 522) POCT-GLUCOSE [id number] 18:34:00 Test Item Value Reference Range Interpretation Comments POC-GLUCOSE METER 250 mg/dL 70-[address] [facility] 6720 (BEAKER) (test code = MIKY [place] 1538) [address] [id number] 18:00:00 Test Item Value Reference Range Interpretation Comments MAGNESIUM (BEAKER) (test code = 1.4 mg/dL 1.6-2.6 L 627) BASIC METABOLIC [id number] 18:00:00 Test Item Value Reference Range Interpretation [...] NOT APPLICABLE FOR DIALYSIS PATIEN TS. POCT-GLUCOSE [id number] 11:41:00 Test Item Value Reference Range Interpretation Comments POC-GLUCOSE METER 214 mg/dL 70-[address] [facility] 6720 (BEAKER) (test code = MIKY K[place] 1538) [address] CREATINE KINASE (CK), TOTAL AND [id number] 10:29:00 Test Item Value Reference Range Interpretation Comments CREATINE KINASE TOTAL (BEAKER) 45 U/L 29-200 (test code = 380) CREATINE KINASE-MB (BEAKER) (test 0.5 ng/mL 0.0-6.6 code = 750) CREATINE KINASE-MB INDEX (BEAKER) 1.1 % (test code = 395) CK-MB Reference Range:<6.7 Normal6.7-10.0 Borderline>10.0 AbnormalBASIC METABOLIC [id number] 10:23:00 Test Item Value Reference Range Interpretation [...] PATIEN TS. RAD, CHEST, 1 VIEW, NON [id number] 07:34:00Reason for exam:- >intubatedShould this be performed at the bedside?->YesFINAL REPORT Chest one view compared to June 04 Discussion: Support tubes, right IJ line, left chest pacemaker in place. Mild pulmonary congestion and probable left base atelectasis. No gross effusion or pneumothorax. IMPRESSIONS: No change. ET tube tip probably 1.3 cm from thecarina. Signed: Jerel Noguera MDReport Verified Date/Time: 06/05/2017 07:34:54 Reading Location: [facility] Reading Room POCT-GLUCOSE [id number] 06:35:00 Test Item Value Reference Range Interpretation Comments POC-GLUCOSE METER 209 mg/dL 70-[address] [facility] 6720 (BEAKER) (test code = MI[place] 1538) [address] BLOOD [id number] 06:00:00 Test Item Value Reference Range Interpretation Comments CULTURE (BEAKER) (test No growth in 5 days code = 1095) BLOOD [id number] 06:00:00 Test Item Value Reference Range Interpretation Comments CULTURE (BEAKER) (test No growth in 5 days code = 1095) CREATINE KINASE (CK), TOTAL AND [id number] 05:23:00 Test Item Value Reference Range Interpretation Comments CREATINE KINASE TOTAL (BEAKER) 52 U/L 29-200 (test code = 380) CREATINE KINASE-MB (BEAKER) (test 0.4 ng/mL 0.0-6.6 code = 750) CREATINE KINASE-MB INDEX (BEAKER) 0.8 % (test code = 395) CK-MB Reference Range:<6.7 Normal6.7-10.0 Borderline>10.0 [id number] 05:16:00 Test Item Value Reference Range Interpretation Comments PHOSPHORUS (BEAKER) (test code = 2.9 mg/dL 2.3-4.7 604) [id number] 05:16:00 Test Item Value Reference Range Interpretation Comments MAGNESIUM (BEAKER) (test code = 1.4 mg/dL 1.6-2.6 L 627) BASIC METABOLIC [id number] 05:16:00 Test Item Value Reference Range Interpretation [...] PATIEN TS. CBC W/PLT COUNT & AUTO [id number] 05:08:00 Test Item Value Reference Range Interpretation [...] code = 2801) LACTIC ACID, VENOUS, WHOLE [id number] 05:07:00 Test Item Value Reference Range Interpretation Comments LACTATE BLOOD VENOUS (2) (BEAKER) 1.1 mmol/L 0.5-2.2 (test code = 2872) Effective 06/10/2015: Units/Reference Range ChangeNew: 0.5-2.2 mmol/L Previous: 5-20 mg/dLPOCT-GLUCOSE [id number] 00:49:00 Test Item Value Reference Range Interpretation Comments POC-GLUCOSE METER 205 mg/dL 70-110 H TESTED AT [place] [address] ([facility]) (test code = MIKY KAN [place] 1538) [address] POCT-GLUCOSE [id number] 17:29:00 Test Item Value Reference Range Interpretation Comments POC-GLUCOSE METER 211 mg/dL 70-[address] [facility] 6720 ([facility]) (test code = MIKY Marte [facility] 1538) [address] CREATINE KINASE (CK), TOTAL AND [id number] 16:23:00 Test Item Value Reference Range Interpretation Comments CREATINE KINASE TOTAL (BEAKER) 89 U/L 29-200 (test code = 380) CREATINE KINASE-MB (BEAKER) (test 0.8 ng/mL 0.0-6.6 code = 750) CREATINE KINASE-MB INDEX (BEAKER) 0.9 % (test code = 395) CK-MB Reference Range:<6.7 Normal6.7-10.0 Borderline>10.0 AbnormalBASIC METABOLIC [id number] 16:17:00 Test Item Value Reference Range Interpretation [...] FOR DIALYSIS PATIEN TS. CT, BRAIN, WITHOUT [id number] 15:33:00FINAL REPORT CT Head without contrast CLINICAL [...] LISA HARDY M.D. on 06/04/2017 03:33 PMPOCT-GLUCOSE [id number] 13:13:00 Test Item Value Reference Range Interpretation Comments POC-GLUCOSE METER 271 mg/dL 70-[address] [facility] 6720 (BEAKER) (test code = MIKY KAN [place] 1538) [address] SPUTUM CULTURE + GRAM [id number] 11:40:00 Test Item Value Reference Interpretation Comments [...] 0-5 epithelial (BEAKER) (test code = cells 767235) GRAM STAIN RESULT No organisms seen (BEAKER) (test code = 471662) 1+ Normal respiratory melanie presentCREATINE KINASE (CK), TOTAL AND [id number] 09:49:00 Test Item Value Reference Range Interpretation Comments CREATINE KINASE TOTAL (BEAKER) 61 U/L 29-200 (test code = 380) CREATINE KINASE-MB (BEAKER) (test 0.7 ng/mL 0.0-6.6 code = 750) CREATINE KINASE-MB INDEX (BEAKER) 1.1 % (test code = 395) CK-MB Reference Range:<6.7 Normal6.7-10.0 Borderline>10.0 AbnormalBASIC METABOLIC [id number] 09:43:00 Test Item Value Reference Range Interpretation [...] DIALYSIS PATIEN TS. LACTIC ACID, VENOUS, WHOLE [id number] 09:38:00 Test Item Value Reference Range Interpretation Comments LACTATE BLOOD VENOUS (2) (BEAKER) 0.8 mmol/L 0.5-2.2 (test code = 2872) Effective 06/10/2015: Units/Reference Range ChangeNew: 0.5-2.2 mmol/L Previous: 5-20 mg/dLPOCT-GLUCOSE [id number] 06:06:00 Test Item Value Reference Range Interpretation Comments POC-GLUCOSE METER 133 mg/dL 70-[address] [facility] 6720 (BEAKER) (test code = MIKY KAN [place] 1538) [address] BLOOD GAS, [id number] 05:21:00 Test Item Value Reference Range Interpretation Comments PH ARTERIAL (BEAKER) (test code = 7.44 7.35-7.45 383) PCO2 ARTERIAL (BEAKER) (test code 33 mmHg 35-45 L = 384) PO2 ARTERIAL (BEAKER) (test code 190 mmHg 80-90 H = 385) O2 SATURATION ARTERIAL (BEAKER) 99.4 % 96.0-97.0 H (test code = 386) HCO3 ARTERIAL (BEAKER) (test code 22 mmol/L -29 = 388) BASE EXCESS ARTERIAL (BEAKER) -1.8 mmol/L -2.0-3.0 (test code = 387) PATIENT TEMPERATURE (BEAKER) 37.5 C (test code = 1818) FIO2 (BEAKER) (test code = 1819) 50.0 % [id number] 05:12:00 Test Item Value Reference Range Interpretation Comments PHOSPHORUS (BEAKER) (test code = 2.9 mg/dL 2.3-4.7 604) [id number] 05:12:00 Test Item Value Reference Range Interpretation Comments MAGNESIUM (BEAKER) (test code = 1.8 mg/dL 1.6-2.6 627) CBC W/PLT COUNT & AUTO [id number] 04:33:00 Test Item Value Reference Range Interpretation [...] = 2801) RAD, CHEST, 1 VIEW, NON [id number] 04:20:00Reason for exam:->ventedShould this be performed at [...] Signed: Raoul Patel MDReport Verified Date/Time: 06/04/2017 04:20:06 Reading Location: [address] Reading Room CREATINE KINASE (CK), TOTAL AND [id number] 00:29:00 Test Item Value Reference Range Interpretation Comments CREATINE KINASE TOTAL (BEAKER) 43 U/L 29-200 (test code = 380) CREATINE KINASE-MB (BEAKER) (test 0.6 ng/mL 0.0-6.6 code = 750) CREATINE KINASE-MB INDEX (BEAKER) 1.4 % (test code = 395) CK-MB Reference Range:<6.7 Normal6.7-10.0 Borderline>10.0 AbnormalBASIC METABOLIC [id number] 00:23:00 Test Item Value Reference Range Interpretation [...] 697) EGFR (BEAKER) (test 94 mL/min/1.73 ESTIMA JOLE GFR IS code = 1092) sq m NOT ACCURATE CREATININE CLEARANCE IN PREDICTING GLOMERULAR FILTRATION RATE . ESTIMATED GFR I S NOT APPLICABLE FOR DIALYSIS PATIEN TS. POCT-GLUCOSE [id number] 00:06:00 Test Item Value Reference Range Interpretation Comments POC-GLUCOSE METER 116 mg/dL 70-[address] [facility] 6720 (BEAKER) (test code = MIKY Marte [place] 1538) [address] HEMOGLOBIN AND [id number] 00:01:00 Test Item Value Reference Range Interpretation Comments HEMOGLOBIN (BEAKER) (test code = 7.8 GM/DL 13.7-17.5 L 410) HEMATOCRIT (BEAKER) (test code = 25.1 % 40.1-51.0 L 411) RAD, ABDOMEN/KUB, 1 VIEW [id number] 23:47:00Reason for exam:->s/p corpak placementFINAL REPORT EXAMINATION: [...] bowel gas pattern is nonspecific. Signed: Raoul [place] Verified Date/Time: 06/03/2017 23:47:47 Reading Location: [address] Reading Room BLOOD GAS, [id number] 19:32:00 Test Item Value Reference Range Interpretation [...] 60.0 % RAD, CHEST, 1 VIEW, NON [id number] 17:52:00Reason for exam:- >intubationShould this be performed [...] MDReport Verified Date/Time: 06/03/2017 17:52:43 Reading Location: [address] Reading Room POCT-GLUCOSE [id number] 17:46:00 Test Item Value Reference Range Interpretation Comments POC-GLUCOSE METER 134 mg/dL 70-[address] [facility] 6720 (BEAKER) (test code = MIKY KAN [place] 1538) [address] CREATINE KINASE (CK), TOTAL AND [id number] 15:27:00 Test Item Value Reference Range Interpretation Comments CREATINE KINASE TOTAL (BEAKER) 67 U/L 29-200 (test code = 380) CREATINE KINASE-MB (BEAKER) (test 0.7 ng/mL 0.0-6.6 code = 750) CREATINE KINASE-MB INDEX (BEAKER) 1.0 % (test code = 395) CK-MB Reference Range:<6.7 Normal6.7-10.0 Borderline>10.0 AbnormalBASIC METABOLIC [id number] 15:20:00 Test Item Value Reference Range Interpretation [...] APPLICABLE FOR DIALYSIS PATIEN TS. HEPATITIS A [id number] 15:03:00 Test Item Value Reference Range Interpretation Comments HEPATITIS A IGM ANTIBODY (BEAKER) Nonreactive Nonreactive (test code = 498) HEPATITIS A IGG ANTIBODY (BEAKER) Reactive Nonreactive A (test code = 0871) HEMOGLOBIN AND [id number] 15:02:00 Test Item Value Reference Range Interpretation Comments HEMOGLOBIN (BEAKER) (test code = 8.9 GM/DL 13.7-17.5 L 410) HEMATOCRIT (BEAKER) (test code = 29.0 % 40.1-51.0 L 411) BLOOD GAS, [id number] 15:01:00 Test Item Value Reference Range Interpretation [...] code = 1819) 32.0 % HEPATITIS C [id number] 14:58:00 Test Item Value Reference Range Interpretation Comments HEPATITIS C ANTIBODY (BEAKER) Nonreactive Nonreactive (test code = 367) HEPATITIS B [id number] 14:58:00 Test Item Value Reference Range Interpretation Comments HEPATITIS B CORE TOTAL ANTIBODY Nonreactive Nonreactive (BEAKER) (test code = 497) HEPATITIS B SURFACE ANTIBODY 22.2 mIU/mL <8.0 H (BEAKER) (test code = 647) HEPATITIS B SURFACE ANTIGEN (2) Nonreactive Nonreactive (BEAKER) (test code = 2585) POCT-GLUCOSE [id number] 11:57:00 Test Item Value Reference Range Interpretation Comments POC-GLUCOSE METER 228 mg/dL 70-[address] [facility] 6720 (BEAKER) (test code = MIKY KAN [place] 1538) [address] BLOOD GAS, [id number] 11:12:00 Test Item Value Reference Range Interpretation [...] (test code = 1819) 40.0 % HEMOGLOBIN [id number] 10:39:00 Test Item Value Reference Range Interpretation Comments HEMOGLOBIN A1C (BEAKER) (test code = 5.5 % 4.3-6.1 368) CREATINE KINASE (CK), TOTAL AND [id number] 08:26:00 Test Item Value Reference Range Interpretation Comments CREATINE KINASE TOTAL (BEAKER) 72 U/L 29-200 (test code = 380) CREATINE KINASE-MB (BEAKER) (test 0.9 ng/mL 0.0-6.6 code = 750) CREATINE KINASE-MB INDEX (BEAKER) 1.3 % (test code = 395) CK-MB Reference Range:<6.7 Normal6.7-10.0 Borderline>10.0 AbnormalBASIC METABOLIC [id number] 08:20:00 Test Item Value Reference Range Interpretation [...] I S NOT APPLICABLE FOR DIALYSIS PATIEN RAD, CHEST, 1 VIEW, NON [id number] 08:05:00Reason for exam:->ventedShould this be performed at the bedside?->YesFINAL REPORT Chest, one view. HISTORY: Vented COMPARISON: 06/02/2017 IMPRESSION: Supporting hardware unchanged in position. Mild interstitial edema. Unchanged enlargement of the cardiomediastinal silhouette. Trace left pleural effusion. No identifiable pneumothorax. Signed: Venu Holman MDReport Verified Date/Time: 06/03/2017 08:05:13 Reading Location: [facility] C013Y CT Body Reading Room GLOBIN AND [id number] 07:52:00 Test Item Value Reference Range Interpretation Comments HEMOGLOBIN (BEAKER) (test code = 8.7 GM/DL 13.7-17.5 L 410) HEMATOCRIT (BEAKER) (test code = 27.6 % 40.1-51.0 L 411) POCT-GLUCOSE [id number] 06:48:00 Test Item Value Reference Range Interpretation Comments POC-GLUCOSE METER 281 mg/dL 70-[address] [facility] 6720 (BEAKER) (test code = MIKY KAN [place] 1538) [address] BLOOD GAS, [id number] 05:52:00 Test Item Value Reference Range Interpretation [...] code = 1819) 40.0 % BASIC METABOLIC [id number] 05:47:00 Test Item Value Reference Range Interpretation [...] PATIEN TS. CBC W/PLT COUNT & AUTO [id number] 05:40:00 Test Item Value Reference Range Interpretation [...] 0-1 PERCENT (BEAKER) (test code = 2801) [id number] 05:37:00 Test Item Value Reference Range Interpretation Comments PHOSPHORUS (BEAKER) (test code = 2.5 mg/dL 2.3-4.7 604) [id number] 05:37:00 Test Item Value Reference Range Interpretation Comments MAGNESIUM (BEAKER) (test code = 1.8 mg/dL 1.6-2.6 627) BASIC METABOLIC [id number] 00:57:00 Test Item Value Reference Range Interpretation [...] PATIEN TS. CREATINE KINASE (CK), TOTAL AND [id number] 00:55:00 Test Item Value Reference Range Interpretation Comments CREATINE KINASE TOTAL (BEAKER) 61 U/L 29-200 (test code = 380) CREATINE KINASE-MB (BEAKER) (test 0.8 ng/mL 0.0-6.6 code = 750) CREATINE KINASE-MB INDEX (BEAKER) 1.3 % (test code = 395) CK-MB Reference Range:<6.7 Normal6.7-10.0 Borderline>10.0 AbnormalHEMOGLOBIN AND [id number] 00:39:00 Test Item Value Reference Range Interpretation Comments HEMOGLOBIN (BEAKER) (test code = 8.2 GM/DL 13.7-17.5 L 410) HEMATOCRIT (BEAKER) (test code = 25.8 % 40.1-51.0 L 411) POCT-GLUCOSE [id number] 00:38:00 Test Item Value Reference Range Interpretation Comments POC-GLUCOSE METER 289 mg/dL 70-[address] [facility] 6720 (BEAKER) (test code = BALALEELA KAN [place] 1538) [address] BASIC METABOLIC [id number] 19:04:00 Test Item Value Reference Range Interpretation [...] NOT APPLICABLE FOR DIALYSIS PATIEN TS. POCT-GLUCOSE [id number] 17:54:00 Test Item Value Reference Range Interpretation Comments POC-GLUCOSE METER 185 mg/dL 70-110 H TESTED AT [place] [address] ([facility]) (test code = [facility] 1538) [address] POCT-GLUCOSE [id number] 17:06:00 Test Item Value Reference Range Interpretation Comments POC-GLUCOSE METER 171 mg/dL 70-110 H TESTED AT [place] [address] ([facility]) (test code = [facility] 1538) [address] CREATINE KINASE (CK), TOTAL AND [id number] 16:32:00 Test Item Value Reference Range Interpretation Comments CREATINE KINASE TOTAL (BEAKER) 77 U/L 29-200 (test code = 380) CREATINE KINASE-MB (BEAKER) (test 0.7 ng/mL 0.0-6.6 code = 750) CREATINE KINASE-MB INDEX (BEAKER) 0.9 % (test code = 395) CK-MB Reference Range:<6.7 Normal6.7-10.0 Borderline>10.0 AbnormalBASIC METABOLIC [id number] 16:28:00 Test Item Value Reference Range Interpretation Comments SODIUM (BEAKER) 149 meq/L 136-145 H (test code = 381) POTASSIUM (BEAKER) 3.4 meq/L 3.5-5.1 L (test code = 379) CHLORIDE (BEAKER) 121 meq/L 98-107 H (test code = 382) CO2 (BEAKER) (test 19 meq/L 22-29 L code = 355) BLOOD UREA NITROGEN 58 mg/dL 7-21 H (BEAKER) (test code = 354) CREATININE ([facility]) 0.94 mg/dL 0.57-1.25 (test code = 358) GLUCOSE RANDOM 173 mg/dL 70-105 H ([facility]) (test code = 652) CALCIUM ([facility]) 8.4 mg/dL 8.4-10.2 (test code = 697) EGFR ([facility]) (test 77 mL/min/1.73 ESTIMA JOEL GFR IS code = 1092) sq m NOT ACCURATE CREATININE CLEARANCE IN PREDICTING GLOMERULAR FILTRATION RATE . ESTIMATED GFR I S NOT APPLICABLE FOR DIALYSIS PATIEN TS. POCT-GLUCOSE [id number] 16:24:00 Test Item Value Reference Range Interpretation Comments POC-GLUCOSE METER 172 mg/dL 70-110 H TESTED AT [place] [address] ([facility]) (test code = MIKY Marte [facility] 1538) [address] POCT-GLUCOSE [id number] 15:30:00 Test Item Value Reference Range Interpretation Comments POC-GLUCOSE METER 192 mg/dL 70-110 H TESTED AT [place] [address] ([facility]) (test code = [employer] [facility] 1538) [address] URINE [id number] 14:28:00 Test Item Value Reference Range Interpretation Comments CULTURE ([facility]) (test code = 1095) No growth POCT-GLUCOSE [id number] 14:10:00 Test Item Value Reference Range Interpretation Comments POC-GLUCOSE METER 183 mg/dL 70-110 H TESTED AT [place] [address] ([facility]) (test code = [employer] [place] 1538) [address] POCT-GLUCOSE [id number] 14:10:00 Test Item Value Reference Range Interpretation Comments POC-GLUCOSE METER 191 mg/dL 70-110 H TESTED AT [place] [address] ([facility]) (test code = [employer] [place] 1538) [address] RAD, ABDOMEN/KUB, 1 VIEW [id number] 13:03:00Reason for exam:->dobbhoff tube placementFINAL REPORT Abdomen one view INDICATION: Dobbhoff tube placement COMPARISON:05/30/2017 IMPRESSION: Feeding tube tip extends to the distal stomach. Suggest advancing. The bowel gas pattern is nonspecific. Cholecystectomy clips, degenerative spine changes, and vascular calcifications and stents are noted. The imaged lower chest is similar to earlier today. Signed: Tanisha Montalvo MDReport Verified Date/Time: 06/02/2017 13:03:48 Reading Location: [facility] Reading Room POCT- GLUCOSE [id number] 11:56:00 Test Item Value Reference Range Interpretation Comments POC-GLUCOSE METER 123 mg/dL 70-110 H TESTED AT [place] [address] ([facility]) (test code = [facility] 1538) [address] POCT-GLUCOSE [id number] 10:58:00 Test Item Value Reference Range Interpretation Comments POC-GLUCOSE METER 206 mg/dL 70-110 H TESTED AT [place] [address] ([facility]) (test code = [facility] 1538) [address] HEMOGLOBIN AND [id number] 10:38:00 Test Item Value Reference Range Interpretation Comments HEMOGLOBIN (BEAKER) (test code = 8.9 GM/DL 13.7-17.5 L 410) HEMATOCRIT (BEAKER) (test code = 28.7 % 40.1-51.0 L 411) [id number] 09:04:00 Test Item Value Reference Range Interpretation Comments GLUCOSE RANDOM (BEAKER) (test code 230 mg/dL 70-105 H = 652) CREATINE KINASE (CK), TOTAL AND [id number] 08:55:00 Test Item Value Reference Range Interpretation Comments CREATINE KINASE TOTAL (BEAKER) 96 U/L 29-200 (test code = 380) CREATINE KINASE-MB (BEAKER) (test 1.0 ng/mL 0.0-6.6 code = 750) CREATINE KINASE-MB INDEX (BEAKER) 1.0 % (test code = 395) CK-MB Reference Range:<6.7 Normal6.7-10.0 Borderline>10.0 AbnormalTROPONIN [id number] 08:55:00 Test Item Value Reference Range Interpretation [...] failure, acidosis, acute neurological disease, and persistent tachyarrhythmia.[id number] 08:42:00 Test Item Value Reference Range Interpretation Comments AMMONIA (BEAKER) (test code = 348) 52 mol/L 18-72 POCT-GLUCOSE [id number] 06:16:00 Test Item Value Reference Range Interpretation Comments POC-GLUCOSE METER 213 mg/dL 70-[address] [facility] 6720 (BEAKER) (test code = MIKY KAN [place] 1538) [address] BLOOD GAS, [id number] 05:52:00 Test Item Value Reference Range Interpretation [...] code = 1819) 40.0 % COMPREHENSIVE METABOLIC [id number] 05:41:00 Test Item Value Reference Range Interpretation [...] S NOT APPLICABLE FOR DIALYSIS PATIEN TS. [id number] 05:35:00 Test Item Value Reference Range Interpretation Comments PHOSPHORUS (BEAKER) (test code = 2.7 mg/dL 2.3-4.7 604) [id number] 05:35:00 Test Item Value Reference Range Interpretation Comments MAGNESIUM (BEAKER) (test code = 2.0 mg/dL 1.6-2.6 627) CBC W/PLT COUNT & AUTO [id number] 05:23:00 Test Item Value Reference Range Interpretation [...] = 2801) RAD, CHEST, 1 VIEW, NON [id number] 04:41:00Reason for exam:->ventedShould this be performed at [...] no significant interval change. Signed: Raoul Patel MDReport Verified Date/Time: 06/02/2017 04:41:51 Reading Location: [address] Reading Room CREATINE KINASE (CK), TOTAL AND [id number] 01:02:00 Test Item Value Reference Range Interpretation Comments CREATINE KINASE TOTAL ([facility]) 109 U/L 29-200 (test code = 380) CREATINE KINASE-MB ([facility]) (test 1.0 ng/mL 0.0-6.6 code = 750) CREATINE KINASE-MB INDEX ([facility]) 0.9 % (test code = 395) CK-MB Reference Range:<6.7 Normal6.7-10.0 Borderline>10.0 AbnormalTROPONIN [id number] 01:02:00 Test Item Value Reference Range Interpretation Comments TROPONIN I ([facility]) (test code = 0.10 ng/mL 0.00-0.03 [...] acidosis, acute neurological disease, and persistent tachyarrhythmia.POCT-GLUCOSE [id number] 00:25:00 Test Item Value Reference Range Interpretation Comments POC-GLUCOSE METER 234 mg/dL 70-[address] [facility] 6720 ([facility]) (test code = MIKY Marte [place] 1538) [address] [id number] 22:40:00 Test Item Value Reference Range Interpretation Comments MAGNESIUM (BEAKER) (test code = 2.0 mg/dL 1.6-2.6 627) PROTHROMBIN TIME/[id number] 22:34:00 Test Item Value Reference Range Interpretation Comments PROTIME (BEAKER) (test code = 18.0 seconds 11.7-14.7 H 759) INR (BEAKER) (test code = 370) 1.5 <=5.9 RECOMMENDED COUMADIN/WARFARIN INR THERAPY RANGESSTANDARD DOSE: 2.0 - 3.0 Includes: PROPHYLAXIS forvenous thrombosis, systemic embolization; TREATMENT for venous thrombosis and/or pulmonary embolus.HIGH RISK: Target INR is 2.5-3.5 for patients with mechanical heart valves.HEMOGLOBIN AND [id number] 22:27:00 Test Item Value Reference Range Interpretation Comments HEMOGLOBIN (BEAKER) (test code = 8.3 GM/DL 13.7-17.5 L 410) HEMATOCRIT (BEAKER) (test code = 25.9 % 40.1-51.0 L 411) POCT-GLUCOSE [id number] 18:46:00 Test Item Value Reference Range Interpretation Comments POC-GLUCOSE METER 318 mg/dL 70-110 H Notified Estuardo Natarajan MD/FRANNY (MOY) (test code = AT [facility] [address] [place] 1538) [facility] 7[address] CREATINE KINASE (CK), TOTAL AND [id number] 18:06:00 Test Item Value Reference Range Interpretation Comments CREATINE KINASE TOTAL (BEAKER) 155 U/L 29-200 (test code = 380) CREATINE KINASE-MB (BEAKER) (test 1.2 ng/mL 0.0-6.6 code = 750) CREATINE KINASE-MB INDEX (BEAKER) 0.8 % (test code = 395) CK-MB Reference Range:<6.7 Normal6.7-10.0 Borderline>10.0 AbnormalTROPONIN [id number] 18:06:00 Test Item Value Reference Range Interpretation [...] acute neurological disease, and persistent tachyarrhythmia.HEMOGLOBIN AND [id number] 17:41:00 Test Item Value Reference Range Interpretation Comments HEMOGLOBIN (BEAKER) (test code = 8.7 GM/DL 13.7-17.5 L 410) HEMATOCRIT (BEAKER) (test code = 27.0 % 40.1-51.0 L 411) RAD, CHEST, 1 VIEW, NON [id number] 17:39:00Reason for exam:->central line placement Should this [...] MDReport Verified Date/Time: 06/01/2017 17:39:56 Reading Location: [facility] C0[facility] Consult Reading Room BASIC METABOLIC [id number] 13:20:00 Test Item Value Reference Range Interpretation [...] NOT APPLICABLE FOR DIALYSIS PATIEN TS. TROPONIN [id number] 13:20:00 Test Item Value Reference Range Interpretation [...] Range:<6.7 Normal6.7-10.0 Borderline>10.0 AbnormalLACTIC ACID, VENOUS, WHOLE [id number] 12:45:00 Test Item Value Reference Range Interpretation Comments LACTATE BLOOD VENOUS (2) (BEAKER) 0.8 mmol/L 0.5-2.2 (test code = 2872) Effective 06/10/2015: Units/Reference Range ChangeNew: 0.5-2.2 mmol/L Previous: 5-20 mg/dLPT/[id number] 12:29:00 Test Item Value Reference Range Interpretation [...] 2.5-3.5 for patients with mechanical heart valves.POCT-GLUCOSE [id number] 12:28:00 Test Item Value Reference Range Interpretation Comments POC-GLUCOSE METER 180 mg/dL 70-[address] [facility] 6720 ([facility]) (test code = MIKY [place] 1538) [address] BLOOD GAS, [id number] 12:24:00 Test Item Value Reference Range Interpretation [...] code = 1819) 40.0 % HEMOGLOBIN AND [id number] 12:20:00 Test Item Value Reference Range Interpretation Comments HEMOGLOBIN (BEAKER) (test code = 7.4 GM/DL 13.7-17.5 L 410) HEMATOCRIT (BEAKER) (test code = 23.2 % 40.1-51.0 L 411) POCT-GLUCOSE [id number] 11:20:00 Test Item Value Reference Range Interpretation Comments POC-GLUCOSE METER 113 mg/dL 70-[address] [facility] 6720 ([facility]) (test code = [facility] 1538) [address] POCT-GLUCOSE [id number] 11:20:00 Test Item Value Reference Range Interpretation Comments POC-GLUCOSE METER 73 mg/dL 70-110 TESTED AT [place] [address] ([facility]) (test code = [facility] [address] 1538) RAD, CHEST, 1 VIEW, NON [id number] 08:21:00Reason for exam:->acess for pulmonary edemaShould this [...] MDReport Verified Date/Time: 06/01/2017 08:21:22 Reading Location: [facility] Radiology Reading Room POCT-GLUCOSE [id number] 07:34:00 Test Item Value Reference Range Interpretation Comments POC-GLUCOSE METER 126 mg/dL 70-[address] [facility] 6720 (BEAKER) (test code = BALALEELA Marte [place] 1538) [address] POCT-GLUCOSE [id number] 06:58:00 Test Item Value Reference Range Interpretation Comments POC-GLUCOSE METER 171 mg/dL 70-[address] [facility] 67 (BEAKER) (test code = BALALEELA [place] 1538) [address] POCT-GLUCOSE [id number] 06:58:00 Test Item Value Reference Range Interpretation Comments POC-GLUCOSE METER 210 mg/dL 70-[address] [facility] 6720 (BEAKER) (test code = BALALEELA Marte [facility] 1538) [id number] BASIC METABOLIC [id number] 05:04:00 Test Item Value Reference Range Interpretation [...] NOT APPLICABLE FOR DIALYSIS PATIEN TS. TROPONIN [id number] 05:02:00 Test Item Value Reference Range Interpretation Comments TROPONIN I (BEAKER) (test code = 0.22 ng/mL 0.00-0.03 HH 397) Troponin I (TnI) levels must be [...] = 395) CK-MB Reference Range:<6.7 Normal6.7-10.0 Borderline>10.0 [id number] 04:52:00 Test Item Value Reference Range Interpretation Comments PHOSPHORUS (BEAKER) (test code = 3.1 mg/dL 2.3-4.7 604) [id number] 04:52:00 Test Item Value Reference Range Interpretation Comments MAGNESIUM (BEAKER) (test code = 2.3 mg/dL 1.6-2.6 627) LACTIC ACID, VENOUS, WHOLE [id number] 04:45:00 Test Item Value Reference Range Interpretation Comments LACTATE BLOOD VENOUS (2) (BEAKER) 1.9 mmol/L 0.5-2.2 (test code = 2872) Effective 06/10/2015: Units/Reference Range ChangeNew: 0.5-2.2 mmol/L Previous: 5-20 mg/dLPOCT-GLUCOSE [id number] 03:55:00 Test Item Value Reference Range Interpretation Comments POC-GLUCOSE METER 175 mg/dL 70-[address] [facility] 6720 (BEAKER) (test code = MIKY [place] 1538) [id number] POCT-GLUCOSE [id number] 03:55:00 Test Item Value Reference Range Interpretation Comments POC-GLUCOSE METER 83 mg/dL 70-[address] [facility] 6720 (BEAKER) (test code = [place] [address] 1538) CBC W/PLT COUNT & AUTO [id number] 02:01:00 Test Item Value Reference Range Interpretation [...] code = 2801) LACTIC ACID, VENOUS, WHOLE [id number] 22:35:00 Test Item Value Reference Range Interpretation Comments LACTATE BLOOD VENOUS 1.2 mmol/L 0.5-2.2 Specime n slightly (2) (BEAKER) (test hemolyzed code = 2872) Effective 06/10/2015: Units/Reference Range ChangeNew: 0.5-2.2 mmol/L Previous: 5-20 mg/dLHEMOGLOBIN AND [id number] 22:12:00 Test Item Value Reference Range Interpretation Comments HEMOGLOBIN (BEAKER) (test code = 7.7 GM/DL 13.7-17.5 L 410) HEMATOCRIT (BEAKER) (test code = 24.0 % 40.1-51.0 L 411) POCT-GLUCOSE [id number] 21:02:00 Test Item Value Reference Range Interpretation Comments POC-GLUCOSE METER 131 mg/dL 70-110 H TESTED AT [place] [address] ([facility]) (test code = [place]KY [place] 1538) [address] POCT-GLUCOSE [id number] 19:57:00 Test Item Value Reference Range Interpretation Comments POC-GLUCOSE METER 159 mg/dL 70-[address] [facility] 67[address] ([facility] [place]) (test code = [place] 1538) [id number] POCT-GLUCOSE [id number] 18:42:00 Test Item Value Reference Range Interpretation Comments POC-GLUCOSE METER 186 mg/dL 70-110 H TESTED AT [place] [address] ([facility]) (test code = [place] 1538) [address] POCT-GLUCOSE [id number] 18:33:00 Test Item Value Reference Range Interpretation Comments POC-GLUCOSE METER 181 mg/dL 70-[address] [facility] 67[address] (BEAKER) (test code = MIKY [place] 1538) [address] POCT-GLUCOSE [id number] 18:33:00 Test Item Value Reference Range Interpretation Comments POC-GLUCOSE METER 226 mg/dL 70-[address] [facility] 6720 (BEAKER) (test code = MIKY [place] 1538) [address] POCT-GLUCOSE [id number] 18:33:00 Test Item Value Reference Range Interpretation Comments POC-GLUCOSE METER 257 mg/dL 70-[address] [facility] 6720 (BEAKER) (test code = MIKY Marte [facility] 1538) [address] TROPONIN [id number] 18:15:00 Test Item Value Reference Range Interpretation [...] CK-MB Reference Range:<6.7 Normal6.7-10.0 Borderline>10.0 AbnormalBLOOD GAS, [id number] 17:57:00 Test Item Value Reference Range Interpretation [...] code = 1819) 40.0 % HEMOGLOBIN AND [id number] 17:47:00 Test Item Value Reference Range Interpretation Comments HEMOGLOBIN (BEAKER) (test code = 7.7 GM/DL 13.7-17.5 L 410) HEMATOCRIT (BEAKER) (test code = 23.3 % 40.1-51.0 L 411) EEG AWAKE/ASLEEP AND [id number] 17:06:00Reason for exam:->syncopal episode r/o seizure activityShould this be performed at the bedside?->Yes Date(s) of EE05/31/17ACC: [id number] Number: [id number] Location: Inpatient ICUStart time: 16:25Stop time: 16:46ICD-10: G93.40CPT Code: 11310 HISTORY: 82 years-old with GI bleed and [...] well as with other [place] widespread, non-metabolic [employer] insults (such as trauma or aftermath of significant seizures). Jovanny Montanez M.D.Neurophysiology Fellow, PGY5 Rikik Zayas M.D.Clinical Neurophysiology/Epilepsy Attending RAD, CHEST, 1 VIEW, NON [id number] 16:55:00Reason for exam:->Post intubationShould this be performed [...] MDReport Verified Date/Time: 05/31/2017 16:55:11 Reading Location: [address] Consult Reading Room HEMOGLOBIN [id number] 15:51:00 Test Item Value Reference Range Interpretation Comments HEMOGLOBIN A1C (BEAKER) (test code = 6.1 % 4.3-6.1 368) POCT-GLUCOSE [id number] 15:03:00 Test Item Value Reference Range Interpretation Comments POC-GLUCOSE METER 150 mg/dL 70-[address] [facility] 67[address] (BEAKER) (test code = [place] 1538) [address] BASIC METABOLIC [id number] 13:41:00 Test Item Value Reference Range Interpretation [...] S NOT APPLICABLE FOR DIALYSIS PATIEN TS. [id number] 13:34:00 Test Item Value Reference Range Interpretation Comments PHOSPHORUS (BEAKER) (test code = 4.0 mg/dL 2.3-4.7 604) [id number] 13:34:00 Test Item Value Reference Range Interpretation Comments MAGNESIUM (BEAKER) (test code = 2.2 mg/dL 1.6-2.6 627) LACTIC ACID, VENOUS, WHOLE [id number] 13:20:00 Test Item Value Reference Range Interpretation Comments LACTATE BLOOD VENOUS (2) (BEAKER) 1.8 mmol/L 0.5-2.2 (test code = 2872) Effective 06/10/2015: Units/Reference Range ChangeNew: 0.5-2.2 mmol/L Previous: 5-20 mg/dLCBC W/PLT COUNT & AUTO [id number] 13:08:00 Test Item Value Reference Range Interpretation [...] (BEAKER) (test code = 2801) HEMOGLOBIN AND [id number] 13:00:00 Test Item Value Reference Range Interpretation Comments HEMOGLOBIN (BEAKER) (test code = 8.3 GM/DL 13.7-17.5 L 410) HEMATOCRIT (BEAKER) (test code = 25.3 % 40.1-51.0 L 411) POCT-GLUCOSE [id number] 12:13:00 Test Item Value Reference Range Interpretation Comments POC-GLUCOSE METER 119 mg/dL 70-110 H TESTED AT [place] [address] ([facility]) (test code = MIKY [place] 1538) [id number] POCT-GLUCOSE [id number] 12:13:00 Test Item Value Reference Range Interpretation Comments POC-GLUCOSE METER 150 mg/dL 70-110 H TESTED AT [place] [address] ([facility]) (test code = MIKY [place] 1538) [address] POCT-GLUCOSE [id number] 12:13:00 Test Item Value Reference Range Interpretation Comments POC-GLUCOSE METER 211 mg/dL 70-110 H TESTED AT [place] [address] ([facility]) (test code = MIKY [place] 1538) [address] POCT-GLUCOSE [id number] 12:13:00 Test Item Value Reference Range Interpretation Comments POC-GLUCOSE METER 272 mg/dL 70-110 H TESTED AT [place] [address] ([facility]) (test code = MIKY Marte [facility] 1538) [address] B-TYPE NATRIURETIC FACTOR (BNP)2017-05-31 08:12:00 Test Item Value Reference Range Interpretation Comments B-TYPE NATRIURETIC PEPTIDE ([facility]) 558 pg/mL 0-100 H (test code = 700) CREATINE KINASE (CK), TOTAL AND [id number] 07:37:00 Test Item Value Reference Range Interpretation Comments CREATINE KINASE TOTAL ([facility]) 560 U/L 29-200 H (test code = 380) CREATINE KINASE-MB ([facility]) (test 4.9 ng/mL 0.0-6.6 code = 750) CREATINE KINASE-MB INDEX ([facility]) 0.9 % (test code = 395) CK-MB Reference Range:<6.7 Normal6.7-10.0 Borderline>10.0 AbnormalTROPONIN [id number] 07:37:00 Test Item Value Reference Range Interpretation Comments TROPONIN I ([facility]) (test code = 0.07 ng/mL 0.00-0.03 H [...] failure, acidosis, acute neurological disease, and persistent tachyarrhythmia.[id number] 07:26:00 Test Item Value Reference Range Interpretation Comments ETHANOL (BEAKER) (test code = 400) < mg/dL <=10 POCT-GLUCOSE [id number] 06:52:00 Test Item Value Reference Range Interpretation Comments POC-GLUCOSE METER 284 mg/dL 70-110 H TESTED AT [place] [address] ([facility]) (test code = [facility] 1538) [address] POCT-GLUCOSE [id number] 05:47:00 Test Item Value Reference Range Interpretation Comments POC-GLUCOSE METER 406 mg/dL 70-110 HH TESTED AT [place] [address] ([facility]) (test code = [facility] 1538) [address] POCT-GLUCOSE [id number] 05:47:00 Test Item Value Reference Range Interpretation Comments POC-GLUCOSE METER 405 mg/dL 70-110 HH TESTED AT [place] [address] ([facility]) (test code = [facility] 1538) [address] POCT-GLUCOSE [id number] 05:47:00 Test Item Value Reference Range Interpretation Comments POC-GLUCOSE METER 429 mg/dL 70-110 HH TESTED AT [place] [address] ([facility]) (test code = [facility] 1538) [address] BASIC METABOLIC [id number] 04:02:00 Test Item Value Reference Range Interpretation [...] S NOT APPLICABLE FOR DIALYSIS PATIEN TS. [id number] 03:59:00 Test Item Value Reference Range Interpretation Comments PHOSPHORUS (BEAKER) (test code = 4.4 mg/dL 2.3-4.7 604) [id number] 03:59:00 Test Item Value Reference Range Interpretation Comments MAGNESIUM (BEAKER) (test code = 2.2 mg/dL 1.6-2.6 627) VANCOMYCIN LEVEL, [id number] 03:49:00 Test Item Value Reference Range Interpretation Comments VANCOMYCIN RANDOM (BEAKER) (test 19.0 ug/mL code = 523) Reference Range: No NormalsCBC W/PLT COUNT & AUTO [id number] 03:41:00 Test Item Value Reference Range Interpretation [...] code = 2801) LACTIC ACID, VENOUS, WHOLE [id number] 03:29:00 Test Item Value Reference Range Interpretation Comments LACTATE BLOOD VENOUS (2) (BEAKER) 3.1 mmol/L 0.5-2.2 H (test code = 2872) Effective 06/10/2015: Units/Reference Range ChangeNew: 0.5-2.2 mmol/L Previous: 5-20 mg/dLCALCIUM, [id number] 03:17:00 Test Item Value Reference Range Interpretation Comments CALCIUM IONIZED (BEAKER) (test 1.14 mmol/L 1.12-1.27 code = 698) PH, BLOOD (BEAKER) (test code = 7.31 1810) BASIC METABOLIC [id number] 23:39:00 Test Item Value Reference Range Interpretation [...] S NOT APPLICABLE FOR DIALYSIS PATIEN TS. [id number] 23:16:00 Test Item Value Reference Range Interpretation Comments AMMONIA (BEAKER) (test code = 348) 32 mol/L 18-72 HEPATIC FUNCTION [id number] 23:13:00 Test Item Value Reference Range Interpretation [...] 6-55 347) CBC W/PLT COUNT & AUTO [id number] 22:55:00 Test Item Value Reference Range Interpretation [...] 0-0 H (BEAKER) (test code = 413) [id number] 22:52:00 Test Item Value Reference Range Interpretation Comments MAGNESIUM (BEAKER) (test code = 2.4 mg/dL 1.6-2.6 627) [id number] 22:52:00 Test Item Value Reference Range Interpretation Comments PHOSPHORUS (BEAKER) (test code = 4.5 mg/dL 2.3-4.7 604) [id number] 22:49:00 Test Item Value Reference Range Interpretation Comments FIBRINOGEN LEVEL (BEAKER) (test 390 mg/dl 225-434 code = 658) RAD, ABDOMEN/KUB, 1 VIEW [id number] 22:46:00Reason for exam:->abdominal painShould this be performed [...] Sánchez Verified Date/Time: 05/30/2017 22:46:58 Reading Location: [address] Consult Reading Room , CHEST, 1 VIEW, NON [id number] 22:45:00Post-intubationReason for exam:- >tachypneaShould this be performed [...] retrocardiac space atelectasis or pneumonia. Signed: Angeles Sánchez Verified Date/Time: 0 05/30/2017 22:45:22 Reading Location: [address] Consult Reading Room PROTHROMBIN TIME/[id number] 22:44:00 Test Item Value Reference Range Interpretation Comments PROTIME (BEAKER) (test code = 22.6 seconds 11.7-14.7 H 759) INR (BEAKER) (test code = 370) 2.0 <=5.9 RECOMMENDED COUMADIN/WARFARIN INR THERAPY RANGESSTANDARD DOSE: 2.0 - 3.0 Includes: PROPHYLAXIS forvenous thrombosis, systemic embolization; TREATMENT for venous thrombosis and/or pulmonary embolus.HIGH RISK: Target INR is 2.5-3.5 for patients with mechanical heart valves.URINALYSIS W/ [id number] 22:34:00 Test Item Value Reference Range Interpretation [...] 1574) SOURCE(BEAKER) (test code = Urine, [place] 7669) BLOOD GAS, [id number] 22:25:00 Test Item Value Reference Range Interpretation [...] 36.6 C (test code = 1818) CALCIUM, [id number] 22:23:00 Test Item Value Reference Range Interpretation Comments CALCIUM IONIZED (BEAKER) (test 1.12 mmol/L 1.12-1.27 code = 698) PH, BLOOD (BEAKER) (test code = 7.36 1810)
--- OUTSIDE RECORDS SUMMARY | 2020-02-06 09:45 | XMS REPORT ---
:1935 Author Organization [facility] Address 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 Active 791788372 knee amputation Problem Gout M10.9 Active 48584754 Problem Renal failure N19 Active 11128983 Problem HTN (hypertension) I10 Active 41284076 Problem Hypomagnesemia E83.42 Active 767694814 Problem Thrombocytosis D47.3 Active 4264287 Problem Stented coronary Z95.5 Active 596748661 artery Problem CKD (chronic N18.3 Active 046657277 kidney disease) stage 3, GFR 30-59 ml/min Problem Type 2 diabetes E11.65 Active 72266471 mellitus with hyperglycemia Problem Diabetes mellitus E11.29 Active 640364518 with kidney disease Problem Hyperglycemic E11.65 Active 575533225 crisis in diabetes mellitus Problem Hyperlipidemia E78.5 Active 49883157 Problem Anemia, D64.9 Active 451643640 unspecified type Problem Painful urination R30.9 Active 78460980 Problem S/P PICC central Z95.828 Active 602444007 line placement Problem snf Z79.4 Active 257038510 (current) use of insulin ALLERGIES No Known Allergies ENCOUNTERS from 1935 to 2019-12-26 Encounter Location Date Provider Diagnosis [facility] [address], [place] [address] IMMUNIZATIONS No Information SOCIAL HISTORY Tobacco Use: [...] No information MEDICATIONS Medication SIG (Take, Route, Notes Start Date End Date Status Frequency, Duration) Allopurinol 300 MG 1 tablet Orally Once a day Active for 90 days Potassium Chloride 20 MEQ 1 tablet with food Orally Active Once a day for 30 day(s) Tamsulosin HCl 0.4 MG TAKE 1 CAPSULE BY MOUTH Active DAILY Vitamin B Complex - 1 tablet Orally once daily Active Aspirin 81 MG 1 tablet Orally Once a day Active Tresiba FlexTouch 200 INJECT 10 UNITS Active UNIT/ML SUBCUTANEOUSLY ONCE DAILY EVERY MORNING BD Ultra-Fine Milla Pen 1 needle with tresiba Active [place] 4mm x 32Gm subcutaneously once a day for 90 days Carvedilol 12.5 MG Orally Active Atorvastatin Calcium 40 TAKE 1 TABLET BY MOUTH Active MG DAILY Orally Once a day Glimepiride 4 MG 1 tablet with breakfast or Active the first main meal of the day Orally Once a day for 90 days Lasix 40 MG 1 tablet Orally Once a day Active Magnesium Oxide 400 MG 1 tablet as needed Orally Active Once a day PROCEDURES No Information RESULTS No Results REASON FOR VISIT ED nosebleed, anemia MEDICAL (GENERAL) HISTORY Type Description Date Medical History Atherosclerosis of coronary artery of na tive heart Medical History Stented coronary artery Medical History Diabetes mellitus with kidney disease Medical History Proteinuria, unspecified Medical History HTN (hypertension) Medical History Hyperlipidemia Medical History Status post above knee amputation Medical History Gout Medical History Hypomagnesemia Medical History Renal failure Medical History Thrombocytosis Surgical History Left knee [id number] Surgical History Pace maker 1998 Surgical History [...] Medication Name Sig Start Date Stop Date Atorvastatin Calcium 40 MG TAKE 1 TABLET BY MOUTH DAILY Orally Once a day Tamsulosin HCl 0.4 MG TAKE 1 CAPSULE BY MOUTH DAILY Next Appt Details Provider Name:Rocco Valle, 2020-02-04 0 1:00:00 PM, [address], [facility] [address], [place], [address], Provider Name:Rocco Valle, 2020-02-12 0 1:00:00 PM, [address], [facility] [address], [place], [address], Provider Name:Rocco Valle, 2020-02-12 0 1:00:00 PM, [address], [facility] [address], [place], [address], Insurance Providers Payer Name Payer Address Payer Insured Patient Coverage Cover age Phone Name Relationship to Start Date End Date Insured [facility] [address] [phone] Taurus Burrows and [facility] [address] [facility] [address] MEDICARE Attn Part B [id number] Taurus Burrows [employer] Claims [address] [place] [address]
[2020-02-06 10:21] LABS: Absolute Lymphocytes (CBC) 1.9 K/uL (0.7-4.9); Basophils % 0.8 % (0-1.3); Lymphocytes % 36.7 % (15.3-44.8); MPV 8.5 fL (7.6-11.3); RBC Red Blood Cell Count 2.59 M/uL (4.33-5.43)
[2020-02-06 10:39] LABS: Potassium 4.7 mmol/L (3.5-5.1)
[2020-02-06 11:07] LABS: Blood Morphology Comment NOTED (NOT SEEN); Platelet Estimate ADEQ; White Blood Cell Scan OK (OK)
[2020-02-06 11:08] LABS: Anisocytosis 2+; Burr Cells 1+; Hypochromasia 3+; Ovalocytes 1+; Polychromasia 1+
[2020-02-06 12:19] LABS: Protime INR 1.23
--- NOTE | 2020-02-06 12:43 | EDPHYS ---
Physician Documentation [facility] Name: Javan Burrows Age: 84 yrs Sex: Male : 1935 Arrival Date: 02/06/2020 Time: 09:39 Bed 20 Private MD: DERIC Physician Jamie Reid HPI: 02/05 09:56 This 84 yrs old Male presents to ER via Wheelchair with complaints of pm1 Abnormal Lab Results. 09:56 Patient instructed by his PCP office today to report to the ER for evaluation of pm1 abnormal labs - low H \T\ H. Patient thinks that the labs were drawn last week. Patient denies any symptoms. No chest pain, shortness of breath, dizziness, headache, or any abnormality with his bowel movements. 09:56 Patient denies any bleeding. Last bleeding episode was epistaxis on 12/17/2019. pm1 Historical: - Allergies: 09:55 NKA; bp - Home Meds: 09:55 allopurinol 300 mg Oral tab 1 tab once daily [Active]; aspirin 81 mg Oral chew 1 tab bp once daily [Active]; Tresiba FlexTouch U-100 subcutaneous [Active]; tamsulosin 0.4 mg Oral cp24 1 cap once daily [Active]; potassium chloride 20 mEq Oral TbTQ 1 tab once daily [Active]; glimepiride 4 mg Oral tab 1 tab once daily [Active]; furosemide 40 mg Oral tab 1 tab 2 times per day [Active]; carvedilol 3.125 mg Oral tab 1 tab 2 times per day [Active]; atorvastatin 40 mg Oral tab 1 tab once daily [Active]; - PMHx: 09:55 a-fib; Diabetes - NIDDM; Gout; Hypertension; Myocardial infarction; Pacemaker; bp - Immunization history:: Adult Immunizations up to date. - Social history:: Smoking status: Patient denies any tobacco usage or history of. ROS: 10:00 Constitutional: Negative for fever, chills, and weight loss, ENT: Negative for injury, pm1 pain, and discharge, Cardiovascular: Negative for chest pain, palpitations, and edema, Respiratory: Negative for shortness of breath, cough, wheezing, and pleuritic chest pain, Abdomen/GI: Negative for abdominal pain, nausea, vomiting, diarrhea, and constipation, Back: Negative for injury and pain, MS/Extremity: Negative for injury and deformity, Skin: Negative for injury, rash, and discoloration, Neuro: Negative for headache, weakness, numbness, tingling, and seizure. Exam: 10:00 Constitutional: This is a well developed, well nourished patient who is awake, alert, pm1 and in no acute distress. Head/Face: Normocephalic, atraumatic. Chest/axilla: Normal chest wall appearance and motion. Nontender with no deformity. No lesions are appreciated. Cardiovascular: Regular rate and rhythm with a normal S1 and S2. No gallops, murmurs, or rubs. Normal PMI, no JVD. No pulse deficits. Respiratory: Lungs have equal breath sounds bilaterally, clear to auscultation and percussion. No rales, rhonchi or wheezes noted. No increased work of breathing, no retractions or nasal flaring. Abdomen/GI: Soft, non-tender, with normal bowel sounds. No distension or tympany. No guarding or rebound. No evidence of tenderness throughout. Back: No spinal tenderness. No costovertebral tenderness. Full range of motion. Skin: Warm, dry with normal turgor. Normal color with no rashes, no lesions, and no evidence of cellulitis. MS/ Extremity: Pulses equal, no cyanosis. Neurovascular intact. RLE AKA. Full, normal range of motion. 10:00 Neuro: Exam negative for acute changes, Orientation: is normal, Mentation: is normal. 11:26 Abdomen/GI: Rectal exam: Stool: brown, guaiac negative, Vega BERRIOS. pm1 Vital Signs: 09:53 BP 160 / 57; Pulse 82; Resp 17; Temp 98.1; Pulse Ox 95% ; Weight 90.72 kg; Height 5 ft. bp 9 in. (175.26 cm); 11:00 BP 148 / 85; Pulse 63; Resp 17; Pulse Ox 96% ; bp 12:00 BP 118 / 41; Pulse 63; Resp 17; Pulse Ox 96% ; bp 13:00 BP 112 / 54; Pulse 74; Resp 16; Pulse Ox 96% ; bp 14:00 BP 141 / 54; Pulse 74; Resp 16; Temp 98.5; Pulse Ox 97% ; bp 09:53 Body Mass Index 29.53 (90.72 kg, 175.26 cm) bp MDM: 09:51 Patient medically screened. pm1 10:03 Data reviewed: vital signs. Data interpreted: Pulse oximetry: on room air is 95 %. pm1 Interpretation: normal. 11:01 Data reviewed: lab test result(s), electrolytes, BUN, creatinine, at his baseline stage pm1 4 kidney disease. 12:25 Counseling: I had a detailed discussion with the patient and/or guardian regarding: the pm1 historical points, exam findings, and any diagnostic results supporting the discharge/admit diagnosis, lab results, Patient does not want to be admitted or transferred but explained to the patient that he needs to follow up with GI, nephrology and hematology. Explained to him that he is anemic without any symptoms, his stool guaiac is negative, and he does not meet criteria for blood transfusion (no current GI bleed and no symptoms). Since he does not want to be admitted or transferred, I educated him on return precautions. Told him that I talked to Dr. Valle and updated him on lab and physical exam findings.. 02/05 09:55 Order name: CBC with Diff; Complete Time: 11:14 pm1 02/05 09:55 Order name: BMP; Complete Time: 10:41 pm1 02/05 09:55 Order name: Type And Screen; Complete Time: 10:53 pm1 02/05 11:07 Order name: CBC Smear Scan; Complete Time: 11:14 EDMS 02/05 11:27 Order name: Guiac; Complete Time: 12:24 em1 02/05 11:34 Order name: Protime (+inr); Complete Time: 12:24 bp 02/05 09:55 Order name: IV Saline Lock; Complete Time: 10:23 pm1 02/05 11:34 Order name: Ptt, Activated; Complete Time: 12:24 bp 02/05 12:48 Order name: Ferritin pm1 02/05 12:48 Order name: Iron Level pm1 02/05 12:48 Order name: TIBC pm1 02/05 12:49 Order name: Ferritin; Complete Time: 13:45 EDMS 02/05 12:49 Order name: Transferrin Sat/Iron Binding; Complete Time: 13:45 EDMS Administered Medications: No medications were administered Disposition: 02/06 07:00 Co-signature as Attending Physician, Jamie Reid MD I agree with the assessment and [facility] plan of care. Disposition: 02/06/20 13:50 Discharged to Home. Impression: Anemia, unspecified. - Condition is Stable. - Discharge Instructions: Anemia, Nonspecific. - Prescriptions for Ferrous Sulfate 325 mg (65 mg Iron) Oral Tablet - take 1 tablet by ORAL route every 8 hours; 90 tablet. - Medication Reconciliation Form, Thank You Letter, Antibiotic Education, Prescription Opioid Use form. - Follow up: Emergency Department; When: As needed; Reason: Worsening of condition. Follow up: Private Physician; When: 2 - 3 days; Reason: Recheck today's complaints, Continuance of care, Re-evaluation by your physician. - Problem is new. - Symptoms have improved. Signatures: Dispatcher [employer] EDMS Jamie Reid MD MD cha Marinas, Patrick, CHAPLAINCY CHAPLAINCY pm1 Vega Roger, RN RN bp Corrections: (The following items were deleted from the chart) 02/05 10:03 10:00 Constitutional: This is a well developed, well nourished patient who is awake, pm1 alert, and in no acute distress. Head/Face: Normocephalic, atraumatic. Chest/axilla: Normal chest wall appearance and motion. Nontender with no deformity. No lesions are appreciated. Cardiovascular: Regular rate and rhythm with a normal S1 and S2. No gallops, murmurs, or rubs. Normal PMI, no JVD. No pulse deficits. Respiratory: Lungs have equal breath sounds bilaterally, clear to auscultation and percussion. No rales, rhonchi or wheezes noted. No increased work of breathing, no retractions or nasal flaring. Abdomen/GI: Soft, non-tender, with normal bowel sounds. No distension or tympany. No guarding or rebound. No evidence of tenderness throughout. Back: No spinal tenderness. No costovertebral tenderness. Full range of motion. Skin: Warm, dry with normal turgor. Normal color with no rashes, no lesions, and no evidence of cellulitis. MS/ Extremity: Pulses equal, no cyanosis. Neurovascular intact. RLE AKA. Full, normal range of motion. pm1 12:47 12:43 02/06/2020 12:43 Discharged to Home. Impression: Anemia, unspecified. Condition pm1 is Stable. Forms are Medication Reconciliation Form, Thank You Letter, Antibiotic Education, Prescription Opioid Use. Follow up: Emergency Department; When: As needed; Reason: Worsening of condition. Follow up: Private Physician; When: 2 - 3 days; Reason: Recheck today's complaints, Continuance of care, Re-evaluation by your physician. Problem is new. Symptoms are unchanged. pm1 14:25 13:50 02/06/2020 13:50 Discharged to Home. Impression: Anemia, unspecified. Condition bp is Stable. Forms are Medication Reconciliation Form, Thank You Letter, Antibiotic Education, Prescription Opioid Use. Follow up: Emergency Department; When: As needed; Reason: Worsening of condition. Follow up: Private Physician; When: 2 - 3 days; Reason: Recheck today's complaints, Continuance of care, Re-evaluation by your physician. Problem is new. Symptoms have improved. pm1
--- NOTE | 2020-02-06 12:43 | ER ---
Nurse's Notes [facility] Name: Javan Burrows Age: 84 yrs Sex: Male : 1935 Arrival Date: 02/06/2020 Time: 09:39 Bed 20 Private MD: Diagnosis: Anemia, unspecified Presentation: 02/05 09:53 Chief complaint: Patient states: MY DOCTOR SAID MY HEMOGLOBIN IS LOW. Coronavirus bp screen: At this time, the client does not indicate any symptoms associated with coronavirus-19. Ebola Screen: No symptoms or risks identified at this time. Initial Sepsis Screen: Does the patient meet any 2 criteria? No. Patient's initial sepsis screen is negative. Does the patient have a suspected source of infection? No. Patient's initial sepsis screen is negative. Risk Assessment: Do you want to hurt yourself or someone else? Patient reports no desire to harm self or others. Note PT ASYMPTOMATIC. Onset of symptoms is unknown. 09:53 Method Of Arrival: Wheelchair bp 09:53 Acuity: GOLDIE 3 bp Triage Assessment: 09:55 General: Appears in no apparent distress. comfortable, Behavior is calm, cooperative, bp appropriate for age. Pain: Denies pain. EENT: No deficits noted. Neuro: No deficits noted. Cardiovascular: No deficits noted. Respiratory: No deficits noted. GI: No signs and/or symptoms were reported involving the gastrointestinal system. : No signs and/or symptoms were reported regarding the genitourinary system. Derm: No deficits noted. Musculoskeletal: No deficits noted. Historical: - Allergies: 09:55 NKA; bp - Home Meds: 09:55 allopurinol 300 mg Oral tab 1 tab once daily [Active]; aspirin 81 mg Oral chew 1 tab bp once daily [Active]; Tresiba FlexTouch U-100 subcutaneous [Active]; tamsulosin 0.4 mg Oral cp24 1 cap once daily [Active]; potassium chloride 20 mEq Oral TbTQ 1 tab once daily [Active]; glimepiride 4 mg Oral tab 1 tab once daily [Active]; furosemide 40 mg Oral tab 1 tab 2 times per day [Active]; carvedilol 3.125 mg Oral tab 1 tab 2 times per day [Active]; atorvastatin 40 mg Oral tab 1 tab once daily [Active]; - PMHx: 09:55 a-fib; Diabetes - NIDDM; Gout; Hypertension; Myocardial infarction; Pacemaker; bp - Immunization history:: Adult Immunizations up to date. - Social history:: Smoking status: Patient denies any tobacco usage or history of. Screenin:56 Abuse screen: Denies threats or abuse. Denies injuries from another. Nutritional bp screening: No deficits noted. Tuberculosis screening: No symptoms or risk factors identified. Fall Risk None identified. Assessment: 09:56 General: SEE TRIAGE NOTE. bp 11:30 Reassessment: Patient appears in no apparent distress at this time. No changes from bp previously documented assessment. Patient and/or family updated on plan of care and expected duration. Pain level reassessed. Patient is alert, oriented x 3, equal unlabored respirations, skin warm/dry/pink. GUAIC NEGATIVE. AWAITING C/S WITH PCP. 12:30 Reassessment: Patient appears in no apparent distress at this time. No changes from bp previously documented assessment. Patient and/or family updated on plan of care and expected duration. Pain level reassessed. Patient is alert, oriented x 3, equal unlabored respirations, skin warm/dry/pink. ADD'L LABS ADDED, RESULTS PENDING. 14:22 Reassessment: PT D/C HOME VIA W/C, DX WITH NONSPECIFIC ANEMIA. bp Vital Signs: 09:53 BP 160 / 57; Pulse 82; Resp 17; Temp 98.1; Pulse Ox 95% ; Weight 90.72 kg; Height 5 ft. bp 9 in. (175.26 cm); 11:00 BP 148 / 85; Pulse 63; Resp 17; Pulse Ox 96% ; bp 12:00 BP 118 / 41; Pulse 63; Resp 17; Pulse Ox 96% ; bp 13:00 BP 112 / 54; Pulse 74; Resp 16; Pulse Ox 96% ; bp 14:00 BP 141 / 54; Pulse 74; Resp 16; Temp 98.5; Pulse Ox 97% ; bp 09:53 Body Mass Index 29.53 (90.72 kg, 175.26 cm) bp ED Course: 09:39 Patient arrived in ED. ag5 09:45 Vega Roger, AGUSTINA is Primary Nurse. bp 09:46 Prasanna Villegas NP is PHCP. pm1 09:46 Jamie Reid MD is Attending Physician. pm1 09:54 Triage completed. bp 09:55 Arm band placed on. bp 09:56 Patient has correct armband on for positive identification. Bed in low position. Call bp light in reach. Side rails up X2. 10:10 Inserted saline lock: 20 gauge in right wrist, using aseptic technique. 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 bp 14:24 IV discontinued, intact, bleeding controlled, No redness/swelling at site. Pressure bp dressing applied. Administered Medications: No medications were administered Outcome: 12:43 Discharge ordered by MD. pm1 13:50 Discharge ordered by MD. pm1 14:24 Discharged to home via wheelchair. bp 14:24 Condition: stable 14:24 Discharge instructions given to patient, Instructed on discharge instructions, follow up and referral plans. medication usage, Demonstrated understanding of instructions, follow-up care, medications, Prescriptions given X 1. 14:25 Patient left the ED. bp Signatures: Prasanna Villegas NP PIERCER pm1 Vega Roger, RN RN bp Batsheva Puga ag5
[2020-02-06 13:13] LABS: Ferritin 30.3 ng/mL (26-388)
[2020-02-06 14:40] VITALS: BP 141/54; TEMP 98.5; O2SAT 97
== END 2020-02-06 14:25 | disposition home or self-care (01) ==
LOC: ER 09:38
DX: D64.9 Anemia, unspecified (principal); I10 Essential (primary) hypertension; E11.9 Type 2 diabetes mellitus without complications; Z95.0 Presence of cardiac pacemaker; Z79.82 Long term (current) use of aspirin; Z79.4 Long term (current) use of insulin
CPT/HCPCS: 36415; 80048; 82272; 82728; 83540; 84466; 85025; 85610; 85730; 86850; 86900; 86901; 99284

== ENCOUNTER 2020-03-10 14:02 | Emergency (ER) | payer OTHER, BC ==
--- OUTSIDE RECORDS SUMMARY | 2020-03-10 14:05 | XMS REPORT | Clinical Summary ---
:1935 Author Organization [facility] Address [address] [place] [address] Care Team Providers Name Role Phone Asked, [...] 1945 DIABETIC FOOT EXAM 1945 COVID-19 VACCINE (1 of 2) 1953 SHINGLES VACCINES (#1) 1987 INFLUENZA VACCINE 09/07/2019 12/25/2008, 12/12/2007 65+ PNEUMOCOCCAL VACCINE Completed 06/21/2010 Results Not on fileafter 03/10/2019 Insurance Payer Benefit Plan / Subscriber ID Effective Dates Phone Addre ss Type Group MEDICARE MEDICARE PART A [id number] 2002-Present REINALDO FRANK Medicare AND B BCBS BCBS CHOICE [id number] 2015-Present PPO PPO/F[employer]ERAL EMPL PPO Advance Directives For more information, please contact: [phone] Type Date Recorded 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
--- OUTSIDE RECORDS SUMMARY | 2020-03-10 14:05 | XMS REPORT | Clinical Summary ---
:1935 [facility] Address [address] [place] [address] Care Team Providers Name Role Phone Joe [...] 1 tablet (40 30 tablet 0 06/20/19 Active 40 MG tablet mg total) by [...] YRS Completed 06/21/2010 Results Not on fileafter 03/10/2019 Insurance Payer Benefit Plan Subscriber ID Effective Phone Address Typ e / Group Dates MEDICARE MEDICARE A B [id number] 2002-[place] and[place] nt BLUE BCBS PPO POS [id number] 2015-Freeman [phone] [address] PPO CROSS/BLUE EPO CHOICE nt 12 [id number] [place] [address] Guarantor Name Account Type Relation to Date of Phone Billing Patient Address Javan Burrows Personal/Family Self 1935 [address] [facility] (Home) [place] [address] Advance Directives For more information, please contact: [phone] Code Status Date Activated Date Inactivated Comments Full Code 05/30/2017 10:08 PM 06/19/2017 7:55 PM This code status was determined by: Patient
--- OUTSIDE RECORDS SUMMARY | 2020-03-10 14:10 | XMS REPORT | Continuity of Care Document ---
:1935 Author Organization [facility] t Address [address] [place] [address] [place] [address] Care Team Providers Name Role Phone Asked, Pcp Primary Care Physician Unavailable SHARIFA HART Attending Clinician Unavailable SHARIFA HART Admitting Clinician Unavailable Problems Condition Condition Condition Status Onset Resolution Last Treating Co mments Source Name Details Category Date Date Treatment Clinician Date Disorienta Disorienta Disease Active [facility] - [facility] Medical 00 [place] A-fib A-fib Disease Active [facility] 00 [place] Hypertensi Hypertensi Disease Active [facility] 05-[facility] - [facility] Medical 00 [place] Hypernatre Hypernatre Disease Active [facility] nirav nirav [facility] - 00:[facility]: Medical 00 [place] Acute Acute Disease Active [facility] blood loss blood loss 25 [place] [facility] - anemia anemia 00:00: Medical 00 [place] 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 00:00: Medica l with with 00 Center complicati complicati on, on, without without long-term long-term current current use of use of insulin insulin Leukocytos Leukocytos Disease Active [facility] is is [facility] - 00:[facility]: Medical 00 [place] Agitation Agitation Disease Active [facility] 00 [place] Acute Acute Disease Active [facility] encephalop encephalop 4-25 [place] [facility] - athy athy 00:00: Medical 00 [place] Acute Acute Disease Active [facility] kidney kidney 4-[facility] - injury injury 00:00: Medical 00 [place] GIB GIB Disease Active [facility] (gastroint (gastroint 4-24 [place] [facility] - estinal estinal 00:00: Medical bleeding) bleeding) 00 Cent er Cough Cough Disease Active [place] 3-23 Methodi 00:[facility]: st 00 Rash Rash Disease Active 2015-02 [place] 229 [facility]i 00:00: st 00 Hypertensi Hypertensi [...] Disease Active 2015-02 [place] nerve nerve 2- Methodi disease disease 00:00: st 00 Seizure Seizure Disease Active 2015-02 [place] disorder disorder 229 Method i 00:00: st 00 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 0-12 Vt thodi artery artery 00:00: st 00 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 0-12 Method i heart heart 00:00: st disease disease 00 Chronic Chronic Disease Active 2015-02 [place] kidney kidney 0-12 Methodi disease, disease, 00:00: st stage III stage III 00 (moderate) (moderate) Delayed Delayed Disease Active 2015-02 [place] surgical surgical 0-12 Method i wound wound 00:00: st healing healing 00 Edema of Edema of Disease Active 2015-02 [place] lower lower 0-12 [facility] extremity extremity 00:00: st 00 Vertigo Vertigo Disease Active 2015-02 [place] 0-12 Methodi 00:00: st 00 Knee pain Knee pain Disease Active 2015-02 [facility] ston 0-12 Methodi 00:00: st 00 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 0-12 Method i 00:00: st 00 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 00:00: [...] 00 Peripheral Peripheral Disease Active Overview : [place] vascular vascular 5-15 S/P Method i disease disease 00:00: stents st 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 00:00: x 3 st Gout Gout Disease Active [place] 2-20 Methodi 00:00: st 00 Chronic Chronic Disease Active [place] coronary coronary 02-06 Method i artery artery 00:00: st disease disease 00 Peripheral Peripheral Disease Active [place] arterial arterial 1 Method i occlusive occlusive 00:00: st disease disease 00 Diabetes Diabetes Disease Active [place] mellitus mellitus 06-07 Method i 00:00: st 00 Essential Essential Disease Active Keith rodriguezn hypertensi hypertensi 06-07 Me thodi on on 00:00: st 00 [...] Source Natural brother Thyroid cancer [place] Natural father Coronary artery [place] disease Natural mother Coronary artery [place]ikh disease Other Diabetes [place] Method ist Other Heart disease [place] Met hodist Other Hypertension [place] Meth odist Social History Social Habit Start Date Stop Date Quantity Comments Source History of Cigarette Smoker [place] Sikh tobacco use Sex Assigned At [facility] Tobacco use and 2017-05-31 2017-05-31 Never used [facility] L[place]e kes - exposure 00:00:00 00:00:00 [facility] Alcohol intake 2017-05-31 2017-05-31 Current drinker ABHISHEK Morrison - 00:00:00 00:00:00 of alcohol [facility] (finding) Alcohol Comment 2015-11-18 2015-11-18 moderate- 2 [place] [facility] 00:00:00 00:00:00 drinks weekly Smoking Status Start Date Stop Date Source Never smoker ABHISHEK Linda Lugabby - M [facility] Former smoker 2016-02-04 00:00:00 2016-02-04 00:00:00 [facility] Medications Ordered Filled Start Stop Current Ordering [...] MG 17:55: mouth Medical tablet 47 daily. [place] pantoprazol Yes 40mg Q.5D Take [address] e 5-14 tablet (40 [facility] - (PROTONIX) 00:00: mg total) Me dical 40 MG 00 by mouth 2 Center tablet (two) times daily. folic acid Yes 1mg QD Take [address] (FOLVITE) 1 4-05 by mouth Luke s - MG tablet 00:00: daily. Medica l 00 [place] metFORMIN Yes TAKE BY [place]ha on (GLUCOPHAGE [...] MG tablet 17:06: daily. st 20 furosemide 2017- Yes 40mg Q.5D Take 40 mg [place] (LASIX) 40 3-26 by mouth 2 Met hodi mg tablet 17:06: (two) st 20 times a day. lisinopril 0 Yes 20mg QD Take 2 [place] [...] Abbi inject [address] FlexTouch FlexTouch [place] units [facility] Atorvastati Atorvastati Yes Abbi TAKE [address] [facility] n Calcium n Calcium [place] TABLET BY [facility] - MOUTH [facility]oria DAILY l Outpati ent Clinics Allopurinol Allopurinol Yes Abbi [address] [facility] [facility] Glimepiride Glimepiride Yes Abbi [address] [place] with [facility] - breakfast Memoria or the l first main Outpati meal of ent the day Clinics Potassium Potassium Yes Abbi [address] Chloride Chloride [place] with food [facility] Lasix Lasix Yes Abbi [address] [facility] [place] Tamsulosin Tamsulosin Yes Abbi [address] HCl HCl [place] [facility] Tamsulosin Tamsulosin Yes Abbi [address] HCl HCl [place] Once a day [facility] - Orally 90 Memoria days l Outpati ent Clinics BD BD Yes Abbi [address] Ultra-Fine Ultra-Fine [place] with [place] kes - Milla Pen Milla Pen tresiba [facility] Carvedilol Carvedilol Yes Abbi not [facility] [place] defined [facility] Aspirin Aspirin Yes Abbi [address] [facility] [facility] Magnesium Magnesium Yes Abbi [address] Oxide Oxide [place] as needed [facility] Vitamin B Vitamin B Yes Abbi [address] [facility] [facility] Complex Complex [place] [facility] Immunizations Ordered Immunization Filled Immunization Date Status Commen ts Source Name Name Pneumococcal 2010-06-21 Completed [place] Polysaccharide 00:00:00 Sikh Influenza Trivalent 2008-12-25 Completed [place] 00:00:00 [facility]ikh Influenza Trivalent 2007-12-12 Completed [place] 00:00:00 Sikh Procedures This patient has no known procedures. Plan of Care Planned Activity Planned Date Details Comments Source Future Scheduled 2019-10-[address] [facility] - Test 00:00:00 (#1) [code = Medical Center INFLUENZA VACCINE (#1)] Future Scheduled 2019-09-07 INFLUENZA VACCINE [place] Test 00:00:00 [code = INFLUENZA VACCINE] Future Scheduled 2017-12-[address] [facility] kes - Test 00:00:00 [facility] (procedure) [code = 73238399] Future Scheduled 2003-03-[address] [facility] - Test 00:00:00 WELLNESS (YEAR 2 or Medical Center FIRST YEAR if no IPPE) [code = MEDICARE ANNUAL WELLNESS (YEAR 2 or FIRST YEAR if no IPPE)] Future Scheduled 1987 SHINGLES VACCINES [place] [facility] Test 00:00:00 (#1) [code = SHINGLES VACCINES (#1)] Future Scheduled 1953 COVID-19 VACCINE (1 [place] [facility] Test 00:00:00 of 2) [code = COVID-19 VACCINE (1 of 2)] Future Scheduled 1947 DIABETES: RETINAL EYE [place] Test 00:00:00 EXAM [code = DIABETES: RETINAL EYE EXAM] Future Scheduled 1947 DIABETIC FOOT EXAM [place] [facility] Test 00:00:00 [code = DIABETIC FOOT EXAM] Future Scheduled 1947 DIABETIC EYE EXAM [facility] Test 00:00:00 [code = DIABETIC EYE [facility] EXAM] Future Scheduled [address] [facility] - Test 00:00:00 examination Medical Center (regime/therapy) [code = 191169697] Future Scheduled 1947 Urine screening for [facility] Test 00:00:00 protein (procedure) [facility] [code = 539930937] Encounters Start End Encounter Admission Attending Care Care Encounter Source Date/Time Date/Time Type Type Clinicians Facility Department ID 2020-03-04 2020-03-04 Outpatient [facility]MLC [facility] [id number] [facility] 2020-02-12 2020-02-12 Outpatient STLMLC [facility]LML[facility] [id number] [facility] 2020-02-12 2020-02-12 Outpatient STLMLC STLMLC [id number] [facility] 2020-02-05 2020-02-05 Outpatient STLMLC STLMLC [id number] [facility] 2019-12-25 2019-12-25 Outpatient STLMLC STLMLC [id number] [facility] 2019-11-27 2019-11-27 Outpatient STLMLC STLMLC [id number] [facility] 2019-11-20 2019-11-20 Outpatient STLMLC STLMLC [id number] [facility] 2019-11-13 2019-11-13 Outpatient STLMLC STLMLC [id number] [facility] 2019-10-30 2019-10-30 Outpatient STLMLC STLMLC [id number] [facility] 2019-08-13 2019-08-13 [facility] [id number] 13:20:00 13:20:00 [facility] Medicine Outpati ent Clinics 2019-08-12 2019-08-12 [facility] [id number] 12:03:00 12:03:[address] [facility] - Drive [facility] l Medicine Outpati ent Clinics 2019-07-23 2019-07-23 [facility] [id number] 14:15:00 14:15:[address] [facility] - Drive [facility] Medicine l Medicine Outpati ent Clinics 2019-07-17 2019-07-17 [facility] [id number] 11:45:00 11:45:00 [place] [address] [facility] - Drive [facility] Medicine l Medicine Outpati ent Clinics 2019-07-15 2019-07-15 [facility] [id number] 14:26:00 14:26:00 [facility] s - Road [facility] Medicine l Medicine Outpati ent Clinics 2019-05-20 2019-05-20 [facility] [id number] 11:56:00 11:56:00 [place] [address] [place] [facility] - Drive [facility] Medicine l Medicine Outpati ent Clinics 2019-05-17 2019-05-17 [facility] [id number] 15:48:00 15:48:00 [place] [address] [facility] - Drive [facility] Medicine l Medicine Outpati ent Clinics 2019-02-27 2019-02-27 [facility] [id number] 13:15:00 13:15:00 [place] [address] [place] - Drive [facility] Medicine l Medicine Outpati ent Clinics 2018-12-26 2018-12-26 [facility] [id number] 15:45:00 15:45:00 [place] [address] [place] - Drive [facility] Medicine l Medicine Outpati ent Clinics 2018-11-28 2018-11-28 [facility] [id number] 15:00:00 15:00:00 [place] [address] [place] - Drive [facility] Medicine l Medicine Outpati ent Clinics 2018-10-17 2018-10-17 [facility] [id number] 15:38:00 15:38:00 [place] [address] [facility] 2018-10-17 2018-10-17 [facility] [id number] 15:15:00 15:15:00 [facility] ent Clinics 2018-10-02 2018-10-02 [facility] [id number] 11:25:00 11:25:00 t [facility] 2018-08-08 2018-08-08 [facility] [id number] 10:25:00 10:25:00 t Specialty/U [place] [facility] - Specialty rology Memori a /Urology Clinic l [facility] 2018-06-11 2018-06-11 [facility] [id number] 11:57:00 11:57:00 t Specialty/U [place] [facility] - Specialty rology Memori a /Urology Clinic l [facility] 2018-05-14 2018-05-14 [facility] [id number] 10:30:00 10:30:00 [facility] Results Test Description Test Time Test Comments Results Result Sour e Comments U/S, ABDOMINAL, 2017-06-29 Abdomen limited Addendum LIMITED 05:54:00 area? Add comment BeginsREPORT if clarification is STATUS:A PATIENT needed.->LiverReaso ID: [id number] n for exam:->r/o Indication: Right cirrhosis upper quadrant pain. Signed: Marci Levine MDReport Verified Date/Time: 06/29/2017 05:54:07 Reading Location: [facility] B1 C013Y CT Body Reading RoomAddendum EndsFINAL REPORT [...] MDReport Verified Date/Time: 06/04/2017 06:44:53 Reading Location: [facility] B1 C013X Ortho Consult Reading Room -GLUCOSE METER 2017-06-19 16:56:00 Test Item Value Reference Range Interpretation Comme nts POC-GLUCOSE METER (BEAKER) (test 202 mg/dL 70-110 H TESTED AT [facility] 67 BERTNER code = 1538) [facility] 7703 0 POCT-GLUCOSE [id number] 12:23:00 Test Item Value Reference Range Interpretation Comments POC-GLUCOSE METER 223 mg/dL 70-110 H TESTED AT [place] [address] (BEAKER) (test code = MIKY Marte [facility] 1538) [id number] POCT-GLUCOSE [id number] 08:07:00 Test Item Value Reference Range Interpretation Comments POC-GLUCOSE METER 122 mg/dL 70-110 H TESTED AT [place] [address] (BEAKER) (test code = MIKY Marte [facility] 1538) [address] [id number] 07:19:00 Test Item Value Reference Range Interpretation Comments MAGNESIUM (BEAKER) (test code = 1.4 mg/dL 1.6-2.6 L 627) [id number] 07:19:00 Test Item Value Reference Range Interpretation Comments PHOSPHORUS (BEAKER) (test code = 2.7 mg/dL 2.3-4.7 604) COMPREHENSIVE METABOLIC [id number] 07:18:00 Test Item Value Reference Range Interpretation [...] PATIEN TS. CBC W/PLT COUNT & AUTO [id number] 00:06:00 Test Item Value Reference Range Interpretation [...] PERCENT (BEAKER) (test code = 2801) POCT-GLUCOSE [id number] 20:29:00 Test Item Value Reference Range Interpretation Comments POC-GLUCOSE METER 126 mg/dL 70-110 H TESTED AT [place] [address] ([facility]) (test code = [facility] 1538) [address] POCT-GLUCOSE [id number] 17:46:00 Test Item Value Reference Range Interpretation Comments POC-GLUCOSE METER 98 mg/dL 70-110 TESTED AT [place] [address] ([facility]) (test code = [facility] [address] 1538) POCT-GLUCOSE [id number] 13:26:00 Test Item Value Reference Range Interpretation Comments POC-GLUCOSE METER 118 mg/dL 70-110 H TESTED AT [place] [address] ([facility]) (test code = [facility] 1538) [address] POCT-GLUCOSE [id number] 08:28:00 Test Item Value Reference Range Interpretation Comments POC-GLUCOSE METER 137 mg/dL 70-110 H TESTED AT [place] [address] (BEAKER) (test code = MIKY KAN [place] 1538) [address] [id number] 05:31:00 Test Item Value Reference Range Interpretation Comments PHOSPHORUS (BEAKER) (test code = 3.1 mg/dL 2.3-4.7 604) [id number] 05:31:00 Test Item Value Reference Range Interpretation Comments MAGNESIUM (BEAKER) (test code = 1.3 mg/dL 1.6-2.6 L 627) BASIC METABOLIC [id number] 05:31:00 Test Item Value Reference Range Interpretation [...] PATIEN TS. CBC W/PLT COUNT & AUTO [id number] 05:13:00 Test Item Value Reference Range Interpretation [...] PERCENT (BEAKER) (test code = 2801) POCT-GLUCOSE [id number] 21:05:00 Test Item Value Reference Range Interpretation Comments POC-GLUCOSE METER 199 mg/dL 70-110 H TESTED AT [facility] 67 ([facility]) (test code = [facility] 1538) [address] POCT-GLUCOSE [id number] 18:55:00 Test Item Value Reference Range Interpretation Comments POC-GLUCOSE METER 128 mg/dL 70-110 H TESTED AT [facility] 6720 ([facility]) (test code = [facility] 1538) [address]10 POCT-GLUCOSE [id number] 11:34:00 Test Item Value Reference Range Interpretation Comments POC-GLUCOSE METER 144 mg/dL 70-110 H TESTED AT [facility] 67 (BEAKER) (test code = MIKY Marte [facility] 1538) [address] POCT-GLUCOSE [id number] 07:58:00 Test Item Value Reference Range Interpretation Comments POC-GLUCOSE METER 93 mg/dL 70-110 TESTED AT [place] [id number] (BEAKER) (test code = MIKY Marte [facility] [address] 1538) [id number] 05:23:00 Test Item Value Reference Range Interpretation Comments PHOSPHORUS (BEAKER) (test code = 2.9 mg/dL 2.3-4.7 604) [id number] 05:23:00 Test Item Value Reference Range Interpretation Comments MAGNESIUM (BEAKER) (test code = 1.6 mg/dL 1.6-2.6 627) CBC W/PLT COUNT & AUTO [id number] 05:03:00 Test Item Value Reference Range Interpretation [...] PERCENT (BEAKER) (test code = 2801) POCT-GLUCOSE [id number] 22:10:00 Test Item Value Reference Range Interpretation Comments POC-GLUCOSE METER 100 mg/dL 70-110 TESTED AT [place] [address] ([facility]) (test code = [facility] 1538) [address] POCT-GLUCOSE [id number] 20:51:00 Test Item Value Reference Range Interpretation Comments POC-GLUCOSE METER 195 mg/dL 70-110 H TESTED AT [place] [address] ([facility]) (test code = [facility] 1538) [address] POCT-GLUCOSE [id number] 12:49:00 Test Item Value Reference Range Interpretation Comments POC-GLUCOSE METER 183 mg/dL 70-110 H TESTED AT [place] [address] ([facility]) (test code = [facility] 1538) [address] POCT-GLUCOSE [id number] 08:20:00 Test Item Value Reference Range Interpretation Comments POC-GLUCOSE METER 95 mg/dL 70-110 TESTED AT [place] [address] ([facility]) (test code = [facility] [address] 1538) [id number] 07:00:00 Test Item Value Reference Range Interpretation Comments MAGNESIUM (BEAKER) (test code = 1.0 mg/dL 1.6-2.6 LL 627) [id number] 06:56:00 Test Item Value Reference Range Interpretation Comments PHOSPHORUS (BEAKER) (test code = 2.8 mg/dL 2.3-4.7 604) BASIC METABOLIC [id number] 06:56:00 Test Item Value Reference Range Interpretation [...] PATIEN TS. CBC W/PLT COUNT & AUTO [id number] 06:16:00 Test Item Value Reference Range Interpretation [...] PERCENT (BEAKER) (test code = 2801) POCT-GLUCOSE [id number] 21:45:00 Test Item Value Reference Range Interpretation Comments POC-GLUCOSE METER 174 mg/dL 70-110 H TESTED AT [facility] 6720 (BEAKER) (test code = MIKY [place] 1538) [address] POCT-GLUCOSE [id number] 17:21:00 Test Item Value Reference Range Interpretation Comments POC-GLUCOSE METER 212 mg/dL 70-110 H TESTED AT [facility] 6720 (BEAKER) (test code = MIKY [place] 1538) [address] POCT-GLUCOSE [id number] 08:21:00 Test Item Value Reference Range Interpretation Comments POC-GLUCOSE METER 107 mg/dL 70-110 TESTED AT [facility] 6720 (BEAKER) (test code = MIKY [place] 1538) [address] [id number] 03:39:00 Test Item Value Reference Range Interpretation Comments PHOSPHORUS (BEAKER) (test code = 2.8 mg/dL 2.3-4.7 604) [id number] 03:39:00 Test Item Value Reference Range Interpretation Comments MAGNESIUM (BEAKER) (test code = 1.4 mg/dL 1.6-2.6 L 627) COMPREHENSIVE METABOLIC [id number] 03:39:00 Test Item Value Reference Range Interpretation [...] NOT APPLICABLE FOR DIALYSIS PATIEN TS. PROTHROMBIN [id number] 03:27:00 Test Item Value Reference Range Interpretation [...] PERCENT (AKER) (test code = 2801) POCT-GLUCOSE [id number] 21:20:00 Test Item Value Reference Range Interpretation Comments POC-GLUCOSE METER 101 mg/dL 70-110 TESTED AT [place] [address] ([facility]) (test code = [facility] 1538) [address] BLOOD [id number] 18:00:00 Test Item Value Reference Range Interpretation Comments CULTURE ([facility]) (test No growth in 5 days code = 1095) POCT-GLUCOSE [id number] 17:25:00 Test Item Value Reference Range Interpretation Comments POC-GLUCOSE METER 273 mg/dL 70-110 H TESTED AT [place] [address] ([facility]) (test code = [facility] 1538) [address]174 POCT-GLUCOSE [id number] 13:32:00 Test Item Value Reference Range Interpretation Comments POC-GLUCOSE METER 247 mg/dL 70-110 H TESTED AT [place] [address] ([facility]) (test code = [facility] 1538) 23520 CBC W/PLT COUNT & AUTO [id number] 12:21:00 Test Item Value Reference Range Interpretation Comments WHITE BLOOD CELL COUNT (AKER) 6.0 K/ L 3.5-10.5 (test code = 775) RED BLOOD CELL COUNT ([facility]) 2.60 M/ L 4.63-6.08 L (test code = 761) HEMOGLOBIN (AKER) (test code = 7.5 GM/DL 13.7-17.5 L [...] 0-0 (BEAKER) (test code = 413) POCT-GLUCOSE [id number] 08:05:00 Test Item Value Reference Range Interpretation Comments POC-GLUCOSE METER 165 mg/dL 70-110 H TESTED AT [facility] 6720 (BEAKER) (test code = MIKY [place] 1538) [address] [id number] 06:32:00 Test Item Value Reference Range Interpretation Comments MAGNESIUM (BEAKER) (test code = 1.0 mg/dL 1.6-2.6 LL 627) [id number] 06:31:00 Test Item Value Reference Range Interpretation Comments PHOSPHORUS (BEAKER) (test code = 2.9 mg/dL 2.3-4.7 604) BASIC METABOLIC [id number] 06:31:00 Test Item Value Reference Range Interpretation [...] NOT APPLICABLE FOR DIALYSIS PATIEN TS. POCT-GLUCOSE [id number] 21:42:00 Test Item Value Reference Range Interpretation Comments POC-GLUCOSE METER 139 mg/dL 70-110 H TESTED AT [facility] 6720 ([facility]) (test code = [facility] 1538) [id number] POCT-GLUCOSE [id number] 17:39:00 Test Item Value Reference Range Interpretation Comments POC-GLUCOSE METER 225 mg/dL 70-110 H TESTED AT [place] [address] ([facility]) (test code = [facility] 1538) [address] POCT-GLUCOSE [id number] 12:02:00 Test Item Value Reference Range Interpretation Comments POC-GLUCOSE METER 153 mg/dL 70-110 H TESTED AT [place] [address] ([facility]) (test code = [facility] 1538) [address] POCT-GLUCOSE [id number] 09:32:00 Test Item Value Reference Range Interpretation Comments POC-GLUCOSE METER 82 mg/dL 70-110 TESTED AT [place] [address] ([facility]) (test code = [facility] [address] 1538) [id number] 06:51:00 Test Item Value Reference Range Interpretation Comments PHOSPHORUS (BEAKER) (test code = 2.6 mg/dL 2.3-4.7 604) [id number] 06:51:00 Test Item Value Reference Range Interpretation Comments MAGNESIUM (BEAKER) (test code = 1.4 mg/dL 1.6-2.6 L 627) BASIC METABOLIC [id number] 06:51:00 Test Item Value Reference Range Interpretation [...] PATIEN TS. CBC W/PLT COUNT & AUTO [id number] 05:59:00 Test Item Value Reference Range Interpretation [...] PERCENT (BEAKER) (test code = 2801) POCT-GLUCOSE [id number] 22:42:00 Test Item Value Reference Range Interpretation Comments POC-GLUCOSE METER 143 mg/dL 70-110 H TESTED AT [place] [address] ([facility]) (test code = [facility] [place]ardo [facility] 1538) [address] POCT-GLUCOSE [id number] 17:31:00 Test Item Value Reference Range Interpretation Comments POC-GLUCOSE METER 167 mg/dL 70-110 H TESTED AT [place] [address] ([facility]) (test code = [facility] [place] [facility] 1538) [address] POCT-GLUCOSE [id number] 12:29:00 Test Item Value Reference Range Interpretation Comments POC-GLUCOSE METER 196 mg/dL 70-110 H TESTED AT [place] [address] ([facility]) (test code = [facility] [place] [facility] 1538) [address] POCT-GLUCOSE [id number] 07:54:00 Test Item Value Reference Range Interpretation Comments POC-GLUCOSE METER 138 mg/dL 70-110 H TESTED AT [place] [address] ([facility]) (test code = [facility] [place] [facility] 1538) [address] [id number] 06:13:00 Test Item Value Reference Range Interpretation Comments PHOSPHORUS (BEAKER) (test code = 3.2 mg/dL 2.3-4.7 604) [id number] 06:13:00 Test Item Value Reference Range Interpretation Comments MAGNESIUM (BEAKER) (test code = 1.3 mg/dL 1.6-2.6 L 627) CBC W/PLT COUNT & AUTO [id number] 05:50:00 Test Item Value Reference Range Interpretation [...] EOSINOPHILS ABSOLUTE COUNT 0.28 K/ L 0.04-0.54 (AKER) (test code = 416) BASOPHILS ABSOLUTE COUNT (AKER) 0.09 K/ L 0.01-0.08 H (test code = 417) IMMATURE GRANULOCYTES-RELATIVE 1 % 0-1 PERCENT ([facility]) (test code = 2801) POCT-GLUCOSE [id number] 21:11:00 Test Item Value Reference Range Interpretation Comments POC-GLUCOSE METER 160 mg/dL 70-110 H TESTED AT [place] [address] ([facility]) (test code = [facility] [place] [facility] 1538) [address] BLOOD [id number] 18:00:00 Test Item Value Reference Range Interpretation Comments CULTURE ([facility]) (test No growth in 5 days code = 1095) POCT-GLUCOSE [id number] 17:54:00 Test Item Value Reference Range Interpretation Comments POC-GLUCOSE METER 163 mg/dL 70-110 H TESTED AT [place] [address] ([facility]) (test code = [facility] 1538) [address] POCT-GLUCOSE [id number] 12:41:00 Test Item Value Reference Range Interpretation Comments POC-GLUCOSE METER 133 mg/dL 70-110 H TESTED AT [place] [address] ([facility]) (test code = [facility] 1538) [address] BLOOD [id number] 11:00:00 Test Item Value Reference Range Interpretation Comments CULTURE (BEAKER) (test No growth in 5 days code = 1095) POCT-GLUCOSE [id number] 07:57:00 Test Item Value Reference Range Interpretation Comments POC-GLUCOSE METER 132 mg/dL 70-110 H TESTED AT [place] [address] ([facility]) (test code = [facility] 1538) [address] VANCOMYCIN LEVEL, [id number] 07:30:00 Test Item Value Reference Range Interpretation Comments VANCOMYCIN RANDOM (BEAKER) (test 31.8 ug/mL code = 523) Reference Range: No [id number] 07:09:00 Test Item Value Reference Range Interpretation Comments PHOSPHORUS (BEAKER) (test code = 3.5 mg/dL 2.3-4.7 604) [id number] 07:09:00 Test Item Value Reference Range Interpretation Comments MAGNESIUM (BEAKER) (test code = 1.4 mg/dL 1.6-2.6 L 627) BASIC METABOLIC [id number] 07:09:00 Test Item Value Reference Range Interpretation [...] PATIEN TS. CBC W/PLT COUNT & AUTO [id number] 06:27:00 Test Item Value Reference Range Interpretation [...] PERCENT (BEAKER) (test code = 2801) POCT-GLUCOSE [id number] 21:46:00 Test Item Value Reference Range Interpretation Comments POC-GLUCOSE METER 262 mg/dL 70-110 H TESTED AT [place] [address] ([facility]) (test code = MIKY [place] 1538) [address] POCT-GLUCOSE [id number] 17:44:00 Test Item Value Reference Range Interpretation Comments POC-GLUCOSE METER 175 mg/dL 70-110 H TESTED AT [place] [address] ([facility]) (test code = [place] 1538) [address] POCT-GLUCOSE [id number] 12:25:00 Test Item Value Reference Range Interpretation Comments POC-GLUCOSE METER 173 mg/dL 70-110 H TESTED AT [place] [address] ([facility]) (test code = [place] 1538) [address] BLOOD [id number] 12:00:00 Test Item Value Reference Range Interpretation Comments CULTURE (BEAKER) (test No growth in 5 days code = 1095) POCT-GLUCOSE [id number] 08:52:00 Test Item Value Reference Range Interpretation Comments POC-GLUCOSE METER 183 mg/dL 70-110 H TESTED AT [facility] 6720 (BEAKER) (test code = MIKY KAN [place] 1538) [address] [id number] 06:01:00 Test Item Value Reference Range Interpretation Comments PHOSPHORUS (BEAKER) (test code = 3.3 mg/dL 2.3-4.7 604) [id number] 06:01:00 Test Item Value Reference Range Interpretation Comments MAGNESIUM (BEAKER) (test code = 1.8 mg/dL 1.6-2.6 627) BASIC METABOLIC [id number] 06:01:00 Test Item Value Reference Range Interpretation [...] PATIEN TS. CBC W/PLT COUNT & AUTO [id number] 04:59:00 Test Item Value Reference Range Interpretation [...] PERCENT (BEAKER) (test code = 2801) POCT-GLUCOSE [id number] 21:51:00 Test Item Value Reference Range Interpretation Comments POC-GLUCOSE METER 203 mg/dL 70-110 H TESTED AT [facility] 6720 (BEAKER) (test code = MIKY Marte [facility] 1538) [address] POCT-GLUCOSE [id number] 17:35:00 Test Item Value Reference Range Interpretation Comments POC-GLUCOSE METER 218 mg/dL 70-110 H TESTED AT [place] [address] ([facility]) (test code = MIKY Marte [facility] 1538) [address] SPUTUM CULTURE + GRAM [id number] 15:48:00 Test Item Value Reference Interpretation Comments Range CULTURE ([facility]) METHICILLIN A <1+ Methici llin [...] Vancomycin (test S code = 13) CULTURE ([facility]) A <1+ Strepto coccus not (test code = 1095) group A b eta hemolyticIdenti fied by serological tamika uping. GRAM STAIN RESULT No WBCs ([facility]) (test code = 1123) GRAM STAIN RESULT 0-5 epithelial ([facility]) (test code cells = 219976) GRAM STAIN RESULT No organisms seen ([facility]) (test code = 734780) <1+ Normal respiratory melanie presentPOCT-GLUCOSE [id number] 12:00:00 Test Item Value Reference Range Interpretation Comments POC-GLUCOSE METER 194 mg/dL 70-110 H TESTED AT [place] [address] ([facility]) (test code = MIKY Marte [facility] 1538) [address] BLOOD [id number] 12:00:00 Test Item Value Reference Range Interpretation Comments CULTURE ([facility]) (test No growth in 5 days code = 1095) BLOOD [id number] 12:00:00 Test Item Value Reference Range Interpretation Comments CULTURE ([facility]) (test No growth in 5 days code = 1095) POCT-GLUCOSE [id number] 05:58:00 Test Item Value Reference Range Interpretation Comments POC-GLUCOSE METER 228 mg/dL 70-110 H TESTED AT [facility] 6720 (BEAKER) (test code = MIKY K[place] 1538) [address] [id number] 04:42:00 Test Item Value Reference Range Interpretation Comments PHOSPHORUS (BEAKER) (test code = 3.1 mg/dL 2.3-4.7 604) [id number] 04:42:00 Test Item Value Reference Range Interpretation Comments MAGNESIUM (BEAKER) (test code = 1.9 mg/dL 1.6-2.6 627) BASIC METABOLIC [id number] 04:42:00 Test Item Value Reference Range Interpretation [...] PATIEN TS. CBC W/PLT COUNT & AUTO [id number] 04:27:00 Test Item Value Reference Range Interpretation [...] PERCENT (BEAKER) (test code = 2801) POCT-GLUCOSE [id number] 00:11:00 Test Item Value Reference Range Interpretation Comments POC-GLUCOSE METER 194 mg/dL 70-110 H TESTED AT [facility] 6720 (BEAKER) (test code = [place] 1538) [address] [id number] 20:46:00 Test Item Value Reference Range Interpretation Comments MAGNESIUM (BEAKER) (test code = 1.9 mg/dL 1.6-2.6 627) BASIC METABOLIC [id number] 20:46:00 Test Item Value Reference Range Interpretation [...] NOT APPLICABLE FOR DIALYSIS PATIEN TS. POCT-GLUCOSE [id number] 19:29:00 Test Item Value Reference Range Interpretation Comments POC-GLUCOSE METER 317 mg/dL 70-110 H TESTED AT [facility] 6720 (BEAKER) (test code = MIKY Marte Y[place] 1538) [address] BLOOD GAS, [id number] 18:31:00 Test Item Value Reference Range Interpretation [...] TEMPERATURE (BEAKER) (test 37.0 C code = 6972) From midlinePOCT-GLUCOSE [id number] 12:03:00 Test Item Value Reference Range Interpretation Comments POC-GLUCOSE METER 107 mg/dL 70-110 TESTED AT [place] [address] (BEAKER) (test code = [facility] 1538) [address] POCT-GLUCOSE [id number] 12:03:00 Test Item Value Reference Range Interpretation Comments POC-GLUCOSE METER 75 mg/dL 70-110 TESTED AT [place] [address] (BEAKER) (test code = [facility] [address] 1538) [id number] 06:12:00 Test Item Value Reference Range Interpretation Comments FERRITIN (BEAKER) (test code = 361) 334 ng/mL 5-275 H VITAMIN B12 AND [id number] 06:12:00 Test Item Value Reference Range Interpretation Comments VITAMIN B12 (BEAKER) (test code = 508 pg/mL 213-816 774) FOLATE (BEAKER) (test code = 362) 16.5 ng/mL >=7.0 POCT-GLUCOSE [id number] 06:00:00 Test Item Value Reference Range Interpretation Comments POC-GLUCOSE METER 84 mg/dL 70-110 TESTED AT [place] [address] ([facility]) (test code = [facility] [address] 1538) IRON, TIBC, % SAT. (WITHOUT FERRITIN)2017-06-08 05:42:00 Test Item Value Reference Range Interpretation Comments IRON (BEAKER) (test code = 547) 15 ug/dL 40-160 L TOTAL IRON BINDING CAPACITY 183 ug/dL 250-450 L (BEAKER) (test code = 769) IRON % SATURATION (2) (BEAKER) 8 % 20-55 L (test code = 2590) [id number] 05:42:00 Test Item Value Reference Range Interpretation Comments PHOSPHORUS (BEAKER) (test code = 2.8 mg/dL 2.3-4.7 604) [id number] 05:42:00 Test Item Value Reference Range Interpretation Comments MAGNESIUM (BEAKER) (test code = 1.6 mg/dL 1.6-2.6 627) BASIC METABOLIC [id number] 05:42:00 Test Item Value Reference Range Interpretation [...] PATIEN TS. CBC W/PLT COUNT & AUTO [id number] 05:25:00 Test Item Value Reference Range Interpretation [...] PERCENT (BEAKER) (test code = 2801) POCT-GLUCOSE [id number] 23:41:00 Test Item Value Reference Range Interpretation Comments POC-GLUCOSE METER 180 mg/dL 70-110 H TESTED AT [facility] 6720 (BEAKER) (test code = MIKY Marte [facility] 1538) [address] RAD, ABDOMEN/KUB, 1 VIEW [id number] 22:29:00Reason for exam:->feeding tube placementFINAL REPORT Comparison: 06/07/2017 at 9:51 PM TECHNIQUE: Frontal image of the abdomen FINDINGS: Feeding tube has been repositioned. Tip now projects in the distal stomach. No other significant change. Signed: Kali Medina MDReport Verified Date/Time: 06/07/2017 22:29:27 Reading Location: [address] Consult Reading Room RAD, ABDOMEN/KUB, 1 VIEW 2017-06-07 22:16:00Reason for exam:->feeding tube placementFINAL REPORT Comparison: 06/03/2017 TECHNIQUE: Frontal image of the abdomen FINDINGS: Feeding tube has been advanced. Distal portion is turned back upon itself and the tip projects in the fundus. Bowel gas pattern is nonspecific. Signed: Kali Medina MDReport Verified Date/Time: 06/07/2017 22:16:52 Reading Location: [address] Consult Reading Room [facility] METABOLIC PANEL 2017-06-07 19:04:00 Test Item Value Reference Range Interpretation Comments SODIUM (BEAKER) 138 meq/L 136-145 (test code = 381) POTASSIUM (BEAKER) 4.1 meq/L 3.5-5.1 (test code = 379) CHLORIDE (BEAKER) 102 meq/L 98-107 (test code = 382) CO2 (BEAKER) (test 28 meq/L 22-29 code = 355) BLOOD UREA NITROGEN 27 [...] NOT APPLICABLE FOR DIALYSIS PATIEN TS. POCT-GLUCOSE [id number] 18:24:00 Test Item Value Reference Range Interpretation Comments POC-GLUCOSE METER 198 mg/dL 70-110 H TESTED AT [facility] 6720 (BEAKER) (test code = [place] 1538) [address] [id number] 17:53:00 Test Item Value Reference Range Interpretation Comments PROCALCITONIN (BEAKER) (test code = < ng/mL <0.05 3036) SEPSIS RISK (ng/mL)Low: 0.05-0.50Intermediate: 0.51-2.00High: >=2.01RETICULOCYTE [id number] 17:06:00 Test Item Value Reference Range Interpretation Comments RETICULOCYTE COUNT PCT (BEAKER) (test 2.7 % 0.5-1.8 H code = 575) POCT-GLUCOSE [id number] 13:07:00 Test Item Value Reference Range Interpretation Comments POC-GLUCOSE METER 240 mg/dL 70-110 H TESTED AT [facility] 6720 ([facility]) (test code = MIKY Marte [facility] 1538) [address] RAD, CHEST, 1 VIEW, NON [id number] 08:42:00Reason for exam:- >intubatedShould this be performed at the bedside?->YesFINAL REPORT Chest one view compared to June 06, 2017 Discussion: Left chest pacemaker, feeding tube, right IJ line in place. There is pulmonary congestion with subtle suspected airspace opacity left lung base all unchanged. No gross effusion or pneumothorax. Signed: Jerel Noguera Verified Date/Time: 06/07/2017 08:42:41 Reading Location: [facility] Radiology Reading Room TROPONIN [id number] 05:52:00 Test Item Value Reference Range Interpretation Comments TROPONIN I ([facility]) (test code = 0.03 ng/mL 0.00-0.03 [...] acidosis, acute neurological disease, and persistent tachyarrhythmia.POCT-GLUCOSE [id number] 05:48:00 Test Item Value Reference Range Interpretation Comments POC-GLUCOSE METER 148 mg/dL 70-110 H TESTED AT [facility] 6720 ([facility]) (test code = MIKY Marte [facility] 1538) [address] [id number] 05:43:00 Test Item Value Reference Range Interpretation Comments PHOSPHORUS (BEAKER) (test code = 2.9 mg/dL 2.3-4.7 604) [id number] 05:43:00 Test Item Value Reference Range Interpretation Comments MAGNESIUM (BEAKER) (test code = 1.6 mg/dL 1.6-2.6 627) BASIC METABOLIC [id number] 05:43:00 Test Item Value Reference Range Interpretation [...] DIALYSIS PATIEN TS. LACTIC ACID, VENOUS, WHOLE [id number] 05:41:00 Test Item Value Reference Range Interpretation Comments LACTATE BLOOD VENOUS (2) (BEAKER) 0.9 mmol/L 0.5-2.2 (test code = 2872) Effective 06/10/2015: Units/Reference Range ChangeNew: 0.5-2.2 mmol/L Previous: 5-20 mg/dLCBC W/PLT COUNT & AUTO [id number] 05:26:00 Test Item Value Reference Range Interpretation [...] H (test code = 700) BASIC METABOLIC [id number] 00:34:00 Test Item Value Reference Range Interpretation [...] NOT APPLICABLE FOR DIALYSIS PATIEN TS. POCT-GLUCOSE [id number] 23:42:00 Test Item Value Reference Range Interpretation Comments POC-GLUCOSE METER 195 mg/dL 70-110 H TESTED AT [facility] 6720 (BEAKER) (test [facility] = [facility] [facility] 1538) [address] BASIC METABOLIC [id number] 17:50:00 Test Item Value Reference Range Interpretation [...] NOT APPLICABLE FOR DIALYSIS PATIEN TS. POCT-GLUCOSE [id number] 17:48:00 Test Item Value Reference Range Interpretation Comments POC-GLUCOSE METER 228 mg/dL 70-110 H TESTED AT [facility] 6720 (BEAKER) (test code = MIKY KAN [place] 1538) [address] POCT-GLUCOSE [id number] 12:03:00 Test Item Value Reference Range Interpretation Comments POC-GLUCOSE METER 237 mg/dL 70-110 H TESTED AT [facility] 6720 (BEAKER) (test code = MIKY KAN [place] 1538) [address] BASIC METABOLIC [id number] 09:39:00 Test Item Value Reference Range Interpretation [...] NOT APPLICABLE FOR DIALYSIS PATIEN TS. CALCIUM, [id number] 04:52:00 Test Item Value Reference Range Interpretation Comments CALCIUM IONIZED (BEAKER) (test 1.08 mmol/L 1.12-1.27 L code = 698) PH, BLOOD (BEAKER) (test code = 7.42 1810) [id number] 04:43:00 Test Item Value Reference Range Interpretation Comments PHOSPHORUS (BEAKER) (test code = 3.5 mg/dL 2.3-4.7 604) [id number] 04:43:00 Test Item Value Reference Range Interpretation Comments MAGNESIUM (BEAKER) (test code = 1.8 mg/dL 1.6-2.6 627) LACTIC ACID, VENOUS, WHOLE [id number] 04:34:00 Test Item Value Reference Range Interpretation Comments LACTATE BLOOD VENOUS (2) (BEAKER) 1.6 mmol/L 0.5-2.2 (test code = 2872) Effective 06/10/2015: Units/Reference Range ChangeNew: 0.5-2.2 mmol/L Previous: 5-20 mg/dLRAD, CHEST, 1 VIEW, NON [id number] 04:29:00Reason for exam:- >intubatedShould this be performed [...] MDReport Verified Date/Time: 06/06/2017 04:29:24 Reading Location: [address] Transitional Reading Room CBC W/PLT COUNT & AUTO [id number] 04:14:00 Test Item Value Reference Range Interpretation [...] PERCENT (BEAKER) (test code = 2801) POCT-GLUCOSE [id number] 04:08:00 Test Item Value Reference Range Interpretation Comments POC-GLUCOSE METER 262 mg/dL 70-110 H TESTED AT [place] [address] ([facility]) (test code = MIKY Marte [facility] 1538) [address] POCT-GLUCOSE [id number] 04:08:00 Test Item Value Reference Range Interpretation Comments POC-GLUCOSE METER 288 mg/dL 70-110 H TESTED AT [place] [address] ([facility]) (test code = MIKY Marte [facility] 1538) [address] POCT-GLUCOSE [id number] 03:43:00 Test Item Value Reference Range Interpretation Comments POC-GLUCOSE METER 248 mg/dL 70-110 H TESTED AT [place] [address] ([facility]) (test code = MIKY Marte [facility] 1538) [address] BASIC METABOLIC [id number] 01:47:00 Test Item Value Reference Range Interpretation [...] APPLICABLE FOR DIALYSIS PATIEN TS. VANCOMYCIN LEVEL, [id number] 21:49:00 Test Item Value Reference Range Interpretation Comments VANCOMYCIN TROUGH (BEAKER) (test 21.4 ug/mL 10.0-20.0 H code = 522) POCT-GLUCOSE [id number] 18:34:00 Test Item Value Reference Range Interpretation Comments POC-GLUCOSE METER 250 mg/dL 70-110 H TESTED AT [facility] 6720 (BEAKER) (test code = BALALEELA Marte [place] [address]) [address] [id number] 18:00:00 Test Item Value Reference Range Interpretation Comments MAGNESIUM (BEAKER) (test code = 1.4 mg/dL 1.6-2.6 L 627) BASIC METABOLIC [id number] 18:00:00 Test Item Value Reference Range Interpretation [...] NOT APPLICABLE FOR DIALYSIS PATIEN TS. POCT-GLUCOSE [id number] 11:41:00 Test Item Value Reference Range Interpretation Comments POC-GLUCOSE METER 214 mg/dL 70-110 H TESTED AT [facility] 6720 (BEAKER) (test code = MIKY [place] 1538) [address] CREATINE KINASE (CK), TOTAL AND [id number] 10:29:00 Test Item Value Reference Range Interpretation Comments CREATINE KINASE TOTAL (BEAKER) 45 U/L 29-200 (test code = 380) CREATINE KINASE-MB (BEAKER) (test 0.5 ng/mL 0.0-6.6 code = 750) CREATINE KINASE-MB INDEX (BEAKER) 1.1 % (test code = 395) CK-MB Reference Range:<6.7 Normal6.7-10.0 Borderline>10.0 AbnormalBASIC METABOLIC [id number] 10:23:00 Test Item Value Reference Range Interpretation [...] 8.4-10.2 L (test code = 697) EGFR (AKER) (test 92 mL/min/1.73 ESTIMA JOEL GFR IS code = 1092) sq m NOT ACCURATE CREATININE CLEARANCE IN PREDICTING GLOMERULAR FILTRATION RATE . ESTIMATED GFR I S NOT APPLICABLE FOR DIALYSIS PATIEN TSKj RAD, CHEST, 1 VIEW, NON [id number] 07:34:00Reason for exam:- >intubatedShould this be performed at the bedside?->YesFINAL REPORT Chest one view compared to June 04 Discussion: Support tubes, right IJ line, left chest pacemaker in place. Mild pulmonary congestion and probable left base atelectasis. No gross effusion or pneumothorax. IMPRESSIONS: No change. ET tube tip probably 1.3 cm from thecarina. Signed: Jerel Nogueraeport Verified Date/Time: 06/05/2017 07:34:54 Reading Location: [facility] Radiology Reading Room POCT-GLUCOSE [id number] 06:35:00 Test Item Value Reference Range Interpretation Comments POC-GLUCOSE METER 209 mg/dL 70-110 H TESTED AT [facility] 6720 ([facility]) (test code = MIKY [place] 1538) [address] BLOOD [id number] 06:00:00 Test Item Value Reference Range Interpretation Comments CULTURE (BEAKER) (test No growth in 5 days code = 1095) BLOOD [id number] 06:00:00 Test Item Value Reference Range Interpretation Comments CULTURE (AKER) (test No growth in 5 days code = 1095) CREATINE KINASE (CK), TOTAL AND [id number] 05:23:00 Test Item Value Reference Range Interpretation Comments CREATINE KINASE TOTAL ([facility]) 52 U/L 29-200 (test code = 380) CREATINE KINASE-MB ([facility]) (test 0.4 ng/mL 0.0-6.6 code = 750) CREATINE KINASE-MB INDEX ([facility]) 0.8 % (test code = 395) CK-MB Reference Range:<6.7 Normal6.7-10.0 Borderline>10.0 [id number] 05:16:00 Test Item Value Reference Range Interpretation Comments PHOSPHORUS (BEAKER) (test code = 2.9 mg/dL 2.3-4.7 604) [id number] 05:16:00 Test Item Value Reference Range Interpretation Comments MAGNESIUM (BEAKER) (test code = 1.4 mg/dL 1.6-2.6 L 627) BASIC METABOLIC [id number] 05:16:00 Test Item Value Reference Range Interpretation [...] PATIEN TS. CBC W/PLT COUNT & AUTO [id number] 05:08:00 Test Item Value Reference Range Interpretation [...] code = 2801) LACTIC ACID, VENOUS, WHOLE [id number] 05:07:00 Test Item Value Reference Range Interpretation Comments LACTATE BLOOD VENOUS (2) (BEAKER) 1.1 mmol/L 0.5-2.2 (test code = 2872) Effective 06/10/2015: Units/Reference Range ChangeNew: 0.5-2.2 mmol/L Previous: 5-20 mg/dLPOCT-GLUCOSE [id number] 00:49:00 Test Item Value Reference Range Interpretation Comments POC-GLUCOSE METER 205 mg/dL 70-110 H TESTED AT [facility] 6720 (BEAKER) (test code = MIKY Marte [place] 1538) [address] POCT-GLUCOSE [id number] 17:29:00 Test Item Value Reference Range Interpretation Comments POC-GLUCOSE METER 211 mg/dL 70-110 H TESTED AT [facility] [address] (BEAKER) (test code = MIKY Marte [place] 1538) [address] CREATINE KINASE (CK), TOTAL AND [id number] 16:23:00 Test Item Value Reference Range Interpretation Comments CREATINE KINASE TOTAL (BEAKER) 89 U/L 29-200 (test code = 380) CREATINE KINASE-MB (BEAKER) (test 0.8 ng/mL 0.0-6.6 code = 750) CREATINE KINASE-MB INDEX (BEAKER) 0.9 % (test code = 395) CK-MB Reference Range:<6.7 Normal6.7-10.0 Borderline>10.0 AbnormalBASIC METABOLIC [id number] 16:17:00 Test Item Value Reference Range Interpretation [...] FOR DIALYSIS PATIEN TS. CT, BRAIN, WITHOUT [id number] 15:33:00FINAL REPORT CT Head without contrast CLINICAL [...] MDReport Verified Date/Time: 06/04/2017 15:33:02 Reading Location: [facility] C013V Neuro Reading Room Electronicallysigned by: LISA HARDY M.D. on 06/04/2017 03:33 PMPOCT-GLUCOSE [id number] 13:13:00 Test Item Value Reference Range Interpretation Comments POC-GLUCOSE METER 271 mg/dL 70-110 H TESTED AT [facility] 67[address] (BEAKER) (test code = [facility] 1538) [address] SPUTUM CULTURE + GRAM [id number] 11:40:00 Test Item Value Reference Interpretation Comments [...] 0-5 epithelial (BEAKER) (test code = cells 108424) GRAM STAIN RESULT No organisms seen (BEAKER) (test code = 643456) 1+ Normal respiratory melanie presentCREATINE KINASE (CK), TOTAL AND [id number] 09:49:00 Test Item Value Reference Range Interpretation Comments CREATINE KINASE TOTAL (BEAKER) 61 U/L 29-200 (test code = 380) CREATINE KINASE-MB (BEAKER) (test 0.7 ng/mL 0.0-6.6 code = 750) CREATINE KINASE-MB INDEX (BEAKER) 1.1 % (test code = 395) CK-MB Reference Range:<6.7 Normal6.7-10.0 Borderline>10.0 AbnormalBASIC METABOLIC [id number] 09:43:00 Test Item Value Reference Range Interpretation [...] DIALYSIS PATIEN TS. LACTIC ACID, VENOUS, WHOLE [id number] 09:38:00 Test Item Value Reference Range Interpretation Comments LACTATE BLOOD VENOUS (2) (BEAKER) 0.8 mmol/L 0.5-2.2 (test code = 2872) Effective 06/10/2015: Units/Reference Range ChangeNew: 0.5-2.2 mmol/L Previous: 5-20 mg/dLPOCT-GLUCOSE [id number] 06:06:00 Test Item Value Reference Range Interpretation Comments POC-GLUCOSE METER 133 mg/dL 70-110 H TESTED AT [facility] 6720 (BEAKER) (test code = MIKY NAJERA 1538) [address] BLOOD GAS, [id number] 05:21:00 Test Item Value Reference Range Interpretation [...] (BEAKER) (test code = 1819) 50.0 % [id number] 05:12:00 Test Item Value Reference Range Interpretation Comments PHOSPHORUS (BEAKER) (test code = 2.9 mg/dL 2.3-4.7 604) [id number] 05:12:00 Test Item Value Reference Range Interpretation Comments MAGNESIUM (BEAKER) (test code = 1.8 mg/dL 1.6-2.6 627) CBC W/PLT COUNT & AUTO [id number] 04:33:00 Test Item Value Reference Range Interpretation [...] = 2801) RAD, CHEST, 1 VIEW, NON [id number] 04:20:00Reason for exam:->ventedShould this be performed at [...] MDReport Verified Date/Time: 06/04/2017 04:20:06 Reading Location: [address] Reading Room CREATINE KINASE (CK), TOTAL AND [id number] 00:29:00 Test Item Value Reference Range Interpretation Comments CREATINE KINASE TOTAL (BEAKER) 43 U/L 29-200 (test code = 380) CREATINE KINASE-MB (BEAKER) (test 0.6 ng/mL 0.0-6.6 code = 750) CREATINE KINASE-MB INDEX (BEAKER) 1.4 % (test code = 395) CK-MB Reference Range:<6.7 Normal6.7-10.0 Borderline>10.0 AbnormalBASIC METABOLIC [id number] 00:23:00 Test Item Value Reference Range Interpretation [...] NOT APPLICABLE FOR DIALYSIS PATIEN TS. POCT-GLUCOSE [id number] 00:06:00 Test Item Value Reference Range Interpretation Comments POC-GLUCOSE METER 116 mg/dL 70-110 H TESTED AT [facility] 6720 (BEAKER) (test code = MIKY KAN [place] 1538) [address] HEMOGLOBIN AND [id number] 00:01:00 Test Item Value Reference Range Interpretation Comments HEMOGLOBIN (BEAKER) (test code = 7.8 GM/DL 13.7-17.5 L 410) HEMATOCRIT (BEAKER) (test code = 25.1 % 40.1-51.0 L 411) RAD, ABDOMEN/KUB, 1 VIEW [id number] 23:47:00Reason for exam:->s/p corpak placementFINAL REPORT EXAMINATION: [...] Pateleport Verified Date/Time: 06/03/2017 23:47:47 Reading Location: [address] Reading Room BLOOD GAS, [id number] 19:32:00 Test Item Value Reference Range Interpretation [...] 60.0 % RAD, CHEST, 1 VIEW, NON [id number] 17:52:00Reason for exam:- >intubationShould this be performed [...] MDReport Verified Date/Time: 06/03/2017 17:52:43 Reading Location: [address] Reading Room POCT-GLUCOSE [id number] 17:46:00 Test Item Value Reference Range Interpretation Comments POC-GLUCOSE METER 134 mg/dL 70-110 H TESTED AT [facility] 6720 ([facility]) (test code = MIKY Marte [facility] 1538) [address] CREATINE KINASE (CK), TOTAL AND [id number] 15:27:00 Test Item Value Reference Range Interpretation Comments CREATINE KINASE TOTAL (BEAKER) 67 U/L 29-200 (test code = 380) CREATINE KINASE-MB (BEAKER) (test 0.7 ng/mL 0.0-6.6 code = 750) CREATINE KINASE-MB INDEX (BEAKER) 1.0 % (test code = 395) CK-MB Reference Range:<6.7 Normal6.7-10.0 Borderline>10.0 AbnormalBASIC METABOLIC [id number] 15:20:00 Test Item Value Reference Range Interpretation [...] APPLICABLE FOR DIALYSIS PATIEN TS. HEPATITIS A [id number] 15:03:00 Test Item Value Reference Range Interpretation Comments HEPATITIS A IGM ANTIBODY (BEAKER) Nonreactive Nonreactive (test code = 498) HEPATITIS A IGG ANTIBODY (BEAKER) Reactive Nonreactive A (test code = 2797) HEMOGLOBIN AND [id number] 15:02:00 Test Item Value Reference Range Interpretation Comments HEMOGLOBIN (BEAKER) (test code = 8.9 GM/DL 13.7-17.5 L 410) HEMATOCRIT (BEAKER) (test code = 29.0 % 40.1-51.0 L 411) BLOOD GAS, [id number] 15:01:00 Test Item Value Reference Range Interpretation [...] code = 1819) 32.0 % HEPATITIS C [id number] 14:58:00 Test Item Value Reference Range Interpretation Comments HEPATITIS C ANTIBODY (BEAKER) Nonreactive Nonreactive (test code = 367) HEPATITIS B [id number] 14:58:00 Test Item Value Reference Range Interpretation Comments HEPATITIS B CORE TOTAL ANTIBODY Nonreactive Nonreactive (BEAKER) (test code = 497) HEPATITIS B SURFACE ANTIBODY 22.2 mIU/mL <8.0 H (BEAKER) (test code = 647) HEPATITIS B SURFACE ANTIGEN (2) Nonreactive Nonreactive (BEAKER) (test code = 2585) POCT-GLUCOSE [id number] 11:57:00 Test Item Value Reference Range Interpretation Comments POC-GLUCOSE METER 228 mg/dL 70-110 H TESTED AT [facility] 6720 (BEAKER) (test code = MIKY KAN [place] 1538) [address] BLOOD GAS, [id number] 11:12:00 Test Item Value Reference Range Interpretation [...] (test code = 1819) 40.0 % HEMOGLOBIN [id number] 10:39:00 Test Item Value Reference Range Interpretation Comments HEMOGLOBIN A1C (BEAKER) (test code = 5.5 % 4.3-6.1 368) CREATINE KINASE (CK), TOTAL AND [id number] 08:26:00 Test Item Value Reference Range Interpretation Comments CREATINE KINASE TOTAL (BEAKER) 72 U/L 29-200 (test code = 380) CREATINE KINASE-MB (BEAKER) (test 0.9 ng/mL 0.0-6.6 code = 750) CREATINE KINASE-MB INDEX (BEAKER) 1.3 % (test code = 395) CK-MB Reference Range:<6.7 Normal6.7-10.0 Borderline>10.0 AbnormalBASIC METABOLIC [id number] 08:20:00 Test Item Value Reference Range Interpretation [...] PATIEN TS. RAD, CHEST, 1 VIEW, NON [id number] 08:05:00Reason for exam:->ventedShould this be performed at the bedside?->YesFINAL REPORT Chest, one view. HISTORY: Vented COMPARISON: 06/02/2017 IMPRESSION: Supporting hardware unchanged in position. Mild interstitial edema. Unchanged enlargement of the cardiomediastinal silhouette. Trace left pleural effusion. No identifiable pneumothorax. Signed: Venu Holmaneport Verified Date/Time: 06/03/2017 08:05:13 Reading Location: [facility] C0[facility] CT Body Reading Room GLOBIN AND [id number] 07:52:00 Test Item Value Reference Range Interpretation Comments HEMOGLOBIN (BEAKER) (test code = 8.7 GM/DL 13.7-17.5 L 410) HEMATOCRIT (BEAKER) (test code = 27.6 % 40.1-51.0 L 411) POCT-GLUCOSE [id number] 06:48:00 Test Item Value Reference Range Interpretation Comments POC-GLUCOSE METER 281 mg/dL 70-110 H TESTED AT [facility] 6720 (BEAKER) (test code = MIKY KAN [place] 1538) [address] BLOOD GAS, [id number] 05:52:00 Test Item Value Reference Range Interpretation [...] code = 1819) 40.0 % BASIC METABOLIC [id number] 05:47:00 Test Item Value Reference Range Interpretation [...] PATIEN TS. CBC W/PLT COUNT & AUTO [id number] 05:40:00 Test Item Value Reference Range Interpretation [...] 0-1 PERCENT (BEAKER) (test code = 2801) [id number] 05:37:00 Test Item Value Reference Range Interpretation Comments PHOSPHORUS (BEAKER) (test code = 2.5 mg/dL 2.3-4.7 604) [id number] 05:37:00 Test Item Value Reference Range Interpretation Comments MAGNESIUM (BEAKER) (test code = 1.8 mg/dL 1.6-2.6 627) BASIC METABOLIC [id number] 00:57:00 Test Item Value Reference Range Interpretation [...] PATIEN TS. CREATINE KINASE (CK), TOTAL AND [id number] 00:55:00 Test Item Value Reference Range Interpretation Comments CREATINE KINASE TOTAL (BEAKER) 61 U/L 29-200 (test code = 380) CREATINE KINASE-MB (BEAKER) (test 0.8 ng/mL 0.0-6.6 code = 750) CREATINE KINASE-MB INDEX (BEAKER) 1.3 % (test code = 395) CK-MB Reference Range:<6.7 Normal6.7-10.0 Borderline>10.0 AbnormalHEMOGLOBIN AND [id number] 00:39:00 Test Item Value Reference Range Interpretation Comments HEMOGLOBIN (BEAKER) (test code = 8.2 GM/DL 13.7-17.5 L 410) HEMATOCRIT (BEAKER) (test code = 25.8 % 40.1-51.0 L 411) POCT-GLUCOSE [id number] 00:38:00 Test Item Value Reference Range Interpretation Comments POC-GLUCOSE METER 289 mg/dL 70-110 H TESTED AT [place] [address] ([facility]) (test code = [facility] 1538) [address] BASIC METABOLIC [id number] 19:04:00 Test Item Value Reference Range Interpretation [...] NOT APPLICABLE FOR DIALYSIS PATIEN TS. POCT-GLUCOSE [id number] 17:54:00 Test Item Value Reference Range Interpretation Comments POC-GLUCOSE METER 185 mg/dL 70-110 H TESTED AT [place] [address] ([facility]) (test code = [facility] 1538) [address] POCT-GLUCOSE [id number] 17:06:00 Test Item Value Reference Range Interpretation Comments POC-GLUCOSE METER 171 mg/dL 70-110 H TESTED AT [place] [address] ([facility]) (test code = [facility] 1538) [address] CREATINE KINASE (CK), TOTAL AND [id number] 16:32:00 Test Item Value Reference Range Interpretation Comments CREATINE KINASE TOTAL (BEAKER) 77 U/L 29-200 (test code = 380) CREATINE KINASE-MB (BEAKER) (test 0.7 ng/mL 0.0-6.6 code = 750) CREATINE KINASE-MB INDEX (BEAKER) 0.9 % (test code = 395) CK-MB Reference Range:<6.7 Normal6.7-10.0 Borderline>10.0 AbnormalBASIC METABOLIC [id number] 16:28:00 Test Item Value Reference Range Interpretation [...] NOT APPLICABLE FOR DIALYSIS PATIEN TS. POCT-GLUCOSE [id number] 16:24:00 Test Item Value Reference Range Interpretation Comments POC-GLUCOSE METER 172 mg/dL 70-110 H TESTED AT [place] [address] ([facility]) (test code = MIKY KAN [place] 1538) [address] POCT-GLUCOSE [id number] 15:30:00 Test Item Value Reference Range Interpretation Comments POC-GLUCOSE METER 192 mg/dL 70-110 H TESTED AT [facility] 6720 ([facility]) (test code = MIKY [place] 1538) [address] URINE [id number] 14:28:00 Test Item Value Reference Range Interpretation Comments CULTURE (BEAKER) (test code = 1095) No growth POCT-GLUCOSE [id number] 14:10:00 Test Item Value Reference Range Interpretation Comments POC-GLUCOSE METER 183 mg/dL 70-110 H TESTED AT [facility] 6720 ([facility]) (test code = MIKY Marte [facility] 1538) [address] POCT-GLUCOSE [id number] 14:10:00 Test Item Value Reference Range Interpretation Comments POC-GLUCOSE METER 191 mg/dL 70-110 H TESTED AT [place] [address] ([facility]) (test code = MIKY Marte [facility] 1538) [address] RAD, ABDOMEN/KUB, 1 VIEW [id number] 13:03:00Reason for exam:->dobbhoff tube placementFINAL REPORT Abdomen one view INDICATION: Dobbhoff tube placement COMPARISON:05/30/2017 IMPRESSION: Feeding tube tip extends to the distal stomach. Suggest advancing. The bowel gas pattern is nonspecific. Cholecystectomy clips, degenerative spine changes, and vascular calcifications and stents are noted. The imaged lower chest is similar to earlier today. Signed: Tanisha Montalvoeport Verified Date/Time: 06/02/2017 13:03:48 Reading Location: [facility] Radiology Reading Room POCT- GLUCOSE [id number] 11:56:00 Test Item Value Reference Range Interpretation Comments POC-GLUCOSE METER 123 mg/dL 70-110 H TESTED AT [place] [address] ([facility]) (test code = MIKY Marte [facility] 1538) [address] POCT-GLUCOSE [id number] 10:58:00 Test Item Value Reference Range Interpretation Comments POC-GLUCOSE METER 206 mg/dL 70-110 H TESTED AT [place] [address] ([facility]) (test code = MIKY Marte [facility] 1538) [address] HEMOGLOBIN AND [id number] 10:38:00 Test Item Value Reference Range Interpretation Comments HEMOGLOBIN ([facility]) (test code = 8.9 GM/DL 13.7-17.5 L 410) HEMATOCRIT ([facility]) (test code = 28.7 % 40.1-51.0 L 411) [id number] 09:04:00 Test Item Value Reference Range Interpretation Comments GLUCOSE RANDOM ([facility]) (test code 230 mg/dL 70-105 H = 652) CREATINE KINASE (CK), TOTAL AND [id number] 08:55:00 Test Item Value Reference Range Interpretation Comments CREATINE KINASE TOTAL (BEAKER) 96 U/L 29-200 (test code = 380) CREATINE KINASE-MB (BEAKER) (test 1.0 ng/mL 0.0-6.6 code = 750) CREATINE KINASE-MB INDEX (BEAKER) 1.0 % (test code = 395) CK-MB Reference Range:<6.7 Normal6.7-10.0 Borderline>10.0 AbnormalTROPONIN [id number] 08:55:00 Test Item Value Reference Range Interpretation [...] failure, acidosis, acute neurological disease, and persistent tachyarrhythmia.[id number] 08:42:00 Test Item Value Reference Range Interpretation Comments AMMONIA (BEAKER) (test code = 348) 52 mol/L 18-72 POCT-GLUCOSE [id number] 06:16:00 Test Item Value Reference Range Interpretation Comments POC-GLUCOSE METER 213 mg/dL 70-110 H TESTED AT [facility] 6720 (BEAKER) (test code = MIKY KAN [place] 1538) [address] BLOOD GAS, [id number] 05:52:00 Test Item Value Reference Range Interpretation [...] code = 1819) 40.0 % COMPREHENSIVE METABOLIC [id number] 05:41:00 Test Item Value Reference Range Interpretation [...] S NOT APPLICABLE FOR DIALYSIS PATIEN TS. [id number] 05:35:00 Test Item Value Reference Range Interpretation Comments PHOSPHORUS (BEAKER) (test code = 2.7 mg/dL 2.3-4.7 604) [id number] 05:35:00 Test Item Value Reference Range Interpretation Comments MAGNESIUM (BEAKER) (test code = 2.0 mg/dL 1.6-2.6 627) CBC W/PLT COUNT & AUTO [id number] 05:23:00 Test Item Value Reference Range Interpretation [...] = 2801) RAD, CHEST, 1 VIEW, NON [id number] 04:41:00Reason for exam:->ventedShould this be performed at [...] Patel Verified Date/Time: 06/02/2017 04:41:51 Reading Location: [address] Reading Room CREATINE KINASE (CK), TOTAL AND [id number] 01:02:00 Test Item Value Reference Range Interpretation Comments CREATINE KINASE TOTAL (BEAKER) 109 U/L 29-200 (test code = 380) CREATINE KINASE-MB (BEAKER) (test 1.0 ng/mL 0.0-6.6 code = 750) CREATINE KINASE-MB INDEX (BEAKER) 0.9 % (test code = 395) CK-MB Reference Range:<6.7 Normal6.7-10.0 Borderline>10.0 AbnormalTROPONIN [id number] 01:02:00 Test Item Value Reference Range Interpretation [...] acidosis, acute neurological disease, and persistent tachyarrhythmia.POCT-GLUCOSE [id number] 00:25:00 Test Item Value Reference Range Interpretation Comments POC-GLUCOSE METER 234 mg/dL 70-110 H TESTED AT [facility] 67 ([facility]) (test code = MIKY Marte [facility] 1538) [address] [id number] 22:40:00 Test Item Value Reference Range Interpretation Comments MAGNESIUM ([facility]) (test code = 2.0 mg/dL 1.6-2.6 627) PROTHROMBIN TIME/[id number] 22:34:00 Test Item Value Reference Range Interpretation Comments PROTIME ([facility]) (test code = 18.0 seconds 11.7-14.7 H 759) INR ([facility]) (test code = 370) 1.5 <=5.9 RECOMMENDED COUMADIN/WARFARIN INR THERAPY RANGESSTANDARD DOSE: 2.0 - 3.0 Includes: PROPHYLAXIS forvenous thrombosis, systemic embolization; TREATMENT for venous thrombosis and/or pulmonary embolus.HIGH RISK: Target INR is 2.5-3.5 for patients with mechanical heart valves.HEMOGLOBIN AND [id number] 22:27:00 Test Item Value Reference Range Interpretation Comments HEMOGLOBIN ([facility]) (test code = 8.3 GM/DL 13.7-17.5 L 410) HEMATOCRIT ([facility]) (test code = 25.9 % 40.1-51.0 L 411) POCT-GLUCOSE [id number] 18:46:00 Test Item Value Reference Range Interpretation Comments POC-GLUCOSE METER 318 mg/dL 70-110 H Notified R Delgado FOUNTAIN/TESTED ([facility]) (test code = AT [place] [address] [facility] 7[address] CREATINE KINASE (CK), TOTAL AND [id number] 18:06:00 Test Item Value Reference Range Interpretation Comments CREATINE KINASE TOTAL ([facility]) 155 U/L 29-200 (test code = 380) CREATINE KINASE-MB ([facility]) (test 1.2 ng/mL 0.0-6.6 code = 750) CREATINE KINASE-MB INDEX ([facility]) 0.8 % (test code = 395) CK-MB Reference Range:<6.7 Normal6.7-10.0 Borderline>10.0 AbnormalTROPONIN [id number] 18:06:00 Test Item Value Reference Range Interpretation [...] acute neurological disease, and persistent tachyarrhythmia.HEMOGLOBIN AND [id number] 17:41:00 Test Item Value Reference Range Interpretation Comments HEMOGLOBIN (BEAKER) (test code = 8.7 GM/DL 13.7-17.5 L 410) HEMATOCRIT (BEAKER) (test code = 27.0 % 40.1-51.0 L 411) RAD, CHEST, 1 VIEW, NON [id number] 17:39:00Reason for exam:->central line placement Should this be performed at the bedside?->YesFINAL REPORT AP view of the chest dated 06/01/2017 COMPARISON: June 01, 2009 18 CLINICAL INFORMATION: central line placement Comment: Since prior examination, there is intervalplacement of a right IJ central venous catheter. No pneumothorax is noted. No other changes are seenin the chest. Signed: Eden Cariaseport Verified Date/Time: 06/01/2017 17:39:56 Reading Location: [address] Consult Reading Room BASI METABOLIC [id number] 13:20:00 Test Item Value Reference Range Interpretation [...] NOT APPLICABLE FOR DIALYSIS PATIEN TS. TROPONIN [id number] 13:20:00 Test Item Value Reference Range Interpretation [...] Range:<6.7 Normal6.7-10.0 Borderline>10.0 AbnormalLACTIC ACID, VENOUS, WHOLE [id number] 12:45:00 Test Item Value Reference Range Interpretation Comments LACTATE BLOOD VENOUS (2) (BEAKER) 0.8 mmol/L 0.5-2.2 (test code = 2872) Effective 06/10/2015: Units/Reference Range ChangeNew: 0.5-2.2 mmol/L Previous: 5-20 mg/dLPT/[id number] 12:29:00 Test Item Value Reference Range Interpretation [...] 2.5-3.5 for patients with mechanical heart valves.POCT-GLUCOSE [id number] 12:28:00 Test Item Value Reference Range Interpretation Comments POC-GLUCOSE METER 180 mg/dL 70-110 H TESTED AT [place] [address] ([facility]) (test code = [facility] 1538) [address] BLOOD GAS, [id number] 12:24:00 Test Item Value Reference Range Interpretation [...] code = 1819) 40.0 % HEMOGLOBIN AND [id number] 12:20:00 Test Item Value Reference Range Interpretation Comments HEMOGLOBIN (BEAKER) (test code = 7.4 GM/DL 13.7-17.5 L 410) HEMATOCRIT (BEAKER) (test code = 23.2 % 40.1-51.0 L 411) POCT-GLUCOSE [id number] 11:20:00 Test Item Value Reference Range Interpretation Comments POC-GLUCOSE METER 113 mg/dL 70-110 H TESTED AT [place] [address] ([facility]) (test code = [facility] 1538) [address] POCT-GLUCOSE [id number] 11:20:00 Test Item Value Reference Range Interpretation Comments POC-GLUCOSE METER 73 mg/dL 70-110 TESTED AT [place] [address] ([facility]) (test code = MIKY Marte [facility] [address] 1538) RAD, CHEST, 1 VIEW, NON [id number] 08:21:00Reason for exam:->acess for pulmonary edemaShould this [...] No pneumothorax is seen. Signed: Tanisha Montalvo MDRthe [facility] [place] Verified Date/Time: 06/01/2017 08:21:22 Reading Location: [facility] Radiology Reading Room POCT-GLUCOSE [id number] 07:34:00 Test Item Value Reference Range Interpretation Comments POC-GLUCOSE METER 126 mg/dL 70-110 H TESTED AT [place] [address] ([facility]) (test code = MIKY Marte [facility] 1538) [address] POCT-GLUCOSE [id number] 06:58:00 Test Item Value Reference Range Interpretation Comments POC-GLUCOSE METER 171 mg/dL 70-110 H TESTED AT [place] [address] ([facility]) (test code = MIKY Marte [facility] 1538) [address] POCT-GLUCOSE [id number] 06:58:00 Test Item Value Reference Range Interpretation Comments POC-GLUCOSE METER 210 mg/dL 70-110 H TESTED AT [place] [address] ([facility]) (test code = MIKY Marte [facility] 1538) [address] BASIC METABOLIC [id number] 05:04:00 Test Item Value Reference Range Interpretation [...] NOT APPLICABLE FOR DIALYSIS PATIEN TS. TROPONIN [id number] 05:02:00 Test Item Value Reference Range Interpretation [...] = 395) CK-MB Reference Range:<6.7 Normal6.7-10.0 Borderline>10.0 [id number] 04:52:00 Test Item Value Reference Range Interpretation Comments PHOSPHORUS (BEAKER) (test code = 3.1 mg/dL 2.3-4.7 604) [id number] 04:52:00 Test Item Value Reference Range Interpretation Comments MAGNESIUM (BEAKER) (test code = 2.3 mg/dL 1.6-2.6 627) LACTIC ACID, VENOUS, WHOLE [id number] 04:45:00 Test Item Value Reference Range Interpretation Comments LACTATE BLOOD VENOUS (2) (BEAKER) 1.9 mmol/L 0.5-2.2 (test code = 2872) Effective 06/10/2015: Units/Reference Range ChangeNew: 0.5-2.2 mmol/L Previous: 5-20 mg/dLPOCT-GLUCOSE [id number] 03:55:00 Test Item Value Reference Range Interpretation Comments POC-GLUCOSE METER 175 mg/dL 70-110 H TESTED AT [place] [address] ([facility]) (test code = [facility] 1538) [address] POCT-GLUCOSE [id number] 03:55:00 Test Item Value Reference Range Interpretation Comments POC-GLUCOSE METER 83 mg/dL 70-110 TESTED AT [place] [address] ([facility]) (test code = [facility] [address] 1538) CBC W/PLT COUNT & AUTO [id number] 02:01:00 Test Item Value Reference Range Interpretation Comments WHITE BLOOD CELL COUNT (BEAKER) 14.4 K/ L 3.5-10.5 H (test code = 775) RED BLOOD CELL COUNT (AKER) 2.62 M/ L 4.63-6.08 L (test code [...] code = 2801) LACTIC ACID, VENOUS, WHOLE [id number] 22:35:00 Test Item Value Reference Range Interpretation Comments LACTATE BLOOD VENOUS 1.2 mmol/L 0.5-2.2 Specime n slightly (2) (BEAKER) (test hemolyzed code = 2872) Effective 06/10/2015: Units/Reference Range ChangeNew: 0.5-2.2 mmol/L Previous: 5-20 mg/dLHEMOGLOBIN AND [id number] 22:12:00 Test Item Value Reference Range Interpretation Comments HEMOGLOBIN (BEAKER) (test code = 7.7 GM/DL 13.7-17.5 L 410) HEMATOCRIT (BEAKER) (test code = 24.0 % 40.1-51.0 L 411) POCT-GLUCOSE [id number] 21:02:00 Test Item Value Reference Range Interpretation Comments POC-GLUCOSE METER 131 mg/dL 70-110 H TESTED AT [place] [id number] ([facility]) (test code = MIKY Marte [place] 1538) [id number] POCT-GLUCOSE [id number] 19:57:00 Test Item Value Reference Range Interpretation Comments POC-GLUCOSE METER 159 mg/dL 70-110 H TESTED AT [place] [id number] ([facility]) (test code = MIKY Marte [place] 1538) [id number] POCT-GLUCOSE [id number] 18:42:00 Test Item Value Reference Range Interpretation Comments POC-GLUCOSE METER 186 mg/dL 70-110 H TESTED AT [place] [id number] ([facility]) (test code = MIKY Marte [place] 1538) [id number] POCT-GLUCOSE [id number] 18:33:00 Test Item Value Reference Range Interpretation Comments POC-GLUCOSE METER 181 mg/dL 70-110 H TESTED AT [place] [id number] ([facility]) (test code = MIKY Marte [place] 1538) [id number] POCT-GLUCOSE [id number] 18:33:00 Test Item Value Reference Range Interpretation Comments POC-GLUCOSE METER 226 mg/dL 70-110 H TESTED AT [place] [id number] ([facility]) (test code = MIKY Marte [facility] 1538) [id number] POCT-GLUCOSE [id number] 18:33:00 Test Item Value Reference Range Interpretation Comments POC-GLUCOSE METER 257 mg/dL 70-110 H TESTED AT [place] [id number] ([facility]) (test code = MIKY Marte [facility] 1538) [id number] TROPONIN [id number] 18:15:00 Test Item Value Reference Range Interpretation Comments TROPONIN I ([facility]) (test code = 0.16 ng/mL 0.00-0.03 H [...] CK-MB Reference Range:<6.7 Normal6.7-10.0 Borderline>10.0 AbnormalBLOOD GAS, [id number] 17:57:00 Test Item Value Reference Range Interpretation [...] code = 1819) 40.0 % HEMOGLOBIN AND [id number] 17:47:00 Test Item Value Reference Range Interpretation Comments HEMOGLOBIN (BEAKER) (test code = 7.7 GM/DL 13.7-17.5 L 410) HEMATOCRIT (BEAKER) (test code = 23.3 % 40.1-51.0 L 411) EEG AWAKE/ASLEEP AND [id number] 17:06:00Reason for exam:->syncopal episode r/o seizure activityShould this be performed at the bedside?->Yes Date(s) of EE05/31/17ACC: [id number] Number: [id number] Location: Inpatient ICUStart time: 16:25Stop time: 16:46ICD-10: G93.40CPT Code: 53337 HISTORY: 82 years-old with GI bleed and [...] well as with other settingsof widespread, non-metabolic MATERIAL HANDLER 1ST SHIFT insults (such as trauma or aftermath of significant seizures). Jovanny Montanez M.D.Neurophysiology Fellow, PGY5 Rikki Zayas M.D.Clinical Neurophysiology/Epilepsy Attending RAD, CHEST, 1 VIEW, NON [id number] 16:55:00Reason for exam:->Post intubationShould this be performed [...] MDReport Verified Date/Time: 05/31/2017 16:55:11 Reading Location: [address] Reading Room HEMOGLOBIN [id number] 15:51:00 Test Item Value Reference Range Interpretation Comments HEMOGLOBIN A1C (BEAKER) (test code = 6.1 % 4.3-6.1 368) POCT-GLUCOSE [id number] 15:03:00 Test Item Value Reference Range Interpretation Comments POC-GLUCOSE METER 150 mg/dL 70-110 H TESTED AT [facility] 6720 (BEAKER) (test code = [place] 1538) [address] BASIC METABOLIC [id number] 13:41:00 Test Item Value Reference Range Interpretation [...] S NOT APPLICABLE FOR DIALYSIS PATIEN TS. [id number] 13:34:00 Test Item Value Reference Range Interpretation Comments PHOSPHORUS (BEAKER) (test code = 4.0 mg/dL 2.3-4.7 604) [id number] 13:34:00 Test Item Value Reference Range Interpretation Comments MAGNESIUM (BEAKER) (test code = 2.2 mg/dL 1.6-2.6 627) LACTIC ACID, VENOUS, WHOLE [id number] 13:20:00 Test Item Value Reference Range Interpretation Comments LACTATE BLOOD VENOUS (2) (BEAKER) 1.8 mmol/L 0.5-2.2 (test code = 2872) Effective 06/10/2015: Units/Reference Range ChangeNew: 0.5-2.2 mmol/L Previous: 5-20 mg/dLCBC W/PLT COUNT & AUTO [id number] 13:08:00 Test Item Value Reference Range Interpretation [...] ABSOLUTE COUNT 0.01 K/ L 0.04-0.54 L ([facility]) (test code = 416) BASOPHILS ABSOLUTE COUNT ([facility]) 0.06 K/ L 0.01-0.08 (test code = 417) IMMATURE GRANULOCYTES-RELATIVE 2 % 0-1 H PERCENT ([facility]) (test code = 2801) HEMOGLOBIN AND [id number] 13:00:00 Test Item Value Reference Range Interpretation Comments HEMOGLOBIN ([facility]) (test code = 8.3 GM/DL 13.7-17.5 L 410) HEMATOCRIT ([facility]) (test code = 25.3 % 40.1-51.0 L 411) POCT-GLUCOSE [id number] 12:13:00 Test Item Value Reference Range Interpretation Comments POC-GLUCOSE METER 119 mg/dL 70-110 H TESTED AT [place] [address] ([facility]) (test code = [facility] 1538) [address] POCT-GLUCOSE [id number] 12:13:00 Test Item Value Reference Range Interpretation Comments POC-GLUCOSE METER 150 mg/dL 70-110 H TESTED AT [place] [address] ([facility]) (test code = [facility] 1538) [address] POCT-GLUCOSE [id number] 12:13:00 Test Item Value Reference Range Interpretation Comments POC-GLUCOSE METER 211 mg/dL 70-110 H TESTED AT [place] [address] ([facility]) (test code = [facility] 1538) [address] POCT-GLUCOSE [id number] 12:13:00 Test Item Value Reference Range Interpretation Comments POC-GLUCOSE METER 272 mg/dL 70-110 H TESTED AT [place] [address] ([facility]) (test code = [facility] 1538) [address] B-TYPE NATRIURETIC FACTOR (BNP)2017-05-31 08:12:00 Test Item Value Reference Range Interpretation Comments B-TYPE NATRIURETIC PEPTIDE ([facility]) 558 pg/mL 0-100 H (test code = 700) CREATINE KINASE (CK), TOTAL AND [id number] 07:37:00 Test Item Value Reference Range Interpretation Comments CREATINE KINASE TOTAL ([facility]) 560 U/L 29-200 H (test code = 380) CREATINE KINASE-MB ([facility]) (test 4.9 ng/mL 0.0-6.6 code = 750) CREATINE KINASE-MB INDEX (BEAKER) 0.9 % (test code = 395) CK-MB Reference Range:<6.7 Normal6.7-10.0 Borderline>10.0 AbnormalTROPONIN [id number] 07:37:00 Test Item Value Reference Range Interpretation [...] failure, acidosis, acute neurological disease, and persistent tachyarrhythmia.[id number] 07:26:00 Test Item Value Reference Range Interpretation Comments ETHANOL (BEAKER) (test code = 400) < mg/dL <=10 POCT-GLUCOSE [id number] 06:52:00 Test Item Value Reference Range Interpretation Comments POC-GLUCOSE METER 284 mg/dL 70-110 H TESTED AT [place] [address] ([facility]) (test code = BALALEELA Marte [facility] 1538) [address] POCT-GLUCOSE [id number] 05:47:00 Test Item Value Reference Range Interpretation Comments POC-GLUCOSE METER 406 mg/dL 70-110 HH TESTED AT [place] [address] ([facility]) (test code = BALALEELA Marte [facility] 1538) [address] POCT-GLUCOSE [id number] 05:47:00 Test Item Value Reference Range Interpretation Comments POC-GLUCOSE METER 405 mg/dL 70-110 HH TESTED AT [place] [address] ([facility]) (test code = BALALEELA Marte [facility] 1538) [address] POCT-GLUCOSE [id number] 05:47:00 Test Item Value Reference Range Interpretation Comments POC-GLUCOSE METER 429 mg/dL 70-110 HH TESTED AT [place] [address] ([facility]) (test code = [place]ALE[place]A aMrte [facility] 1538) [address] BASIC METABOLIC [id number] 04:02:00 Test Item Value Reference Range Interpretation [...] S NOT APPLICABLE FOR DIALYSIS PATIEN TS. [id number] 03:59:00 Test Item Value Reference Range Interpretation Comments PHOSPHORUS (BEAKER) (test code = 4.4 mg/dL 2.3-4.7 604) [id number] 03:59:00 Test Item Value Reference Range Interpretation Comments MAGNESIUM (BEAKER) (test code = 2.2 mg/dL 1.6-2.6 627) VANCOMYCIN LEVEL, [id number] 03:49:00 Test Item Value Reference Range Interpretation Comments VANCOMYCIN RANDOM (BEAKER) (test 19.0 ug/mL code = 523) Reference Range: No NormalsCBC W/PLT COUNT & AUTO [id number] 03:41:00 Test Item Value Reference Range Interpretation [...] code = 2801) LACTIC ACID, VENOUS, WHOLE [id number] 03:29:00 Test Item Value Reference Range Interpretation Comments LACTATE BLOOD VENOUS (2) (BEAKER) 3.1 mmol/L 0.5-2.2 H (test code = 2872) Effective 06/10/2015: Units/Reference Range ChangeNew: 0.5-2.2 mmol/L Previous: 5-20 mg/dLCALCIUM, [id number] 03:17:00 Test Item Value Reference Range Interpretation Comments CALCIUM IONIZED (BEAKER) (test 1.14 mmol/L 1.12-1.27 code = 698) PH, BLOOD (BEAKER) (test code = 7.31 1810) BASIC METABOLIC [id number] 23:39:00 Test Item Value Reference Range Interpretation [...] S NOT APPLICABLE FOR DIALYSIS PATIEN TS. [id number] 23:16:00 Test Item Value Reference Range Interpretation Comments AMMONIA (BEAKER) (test code = 348) 32 mol/L 18-72 HEPATIC FUNCTION [id number] 23:13:00 Test Item Value Reference Range Interpretation [...] 6-55 347) CBC W/PLT COUNT & AUTO [id number] 22:55:00 Test Item Value Reference Range Interpretation [...] 0-0 H (BEAKER) (test code = 413) [id number] 22:52:00 Test Item Value Reference Range Interpretation Comments MAGNESIUM (BEAKER) (test code = 2.4 mg/dL 1.6-2.6 627) [id number] 22:52:00 Test Item Value Reference Range Interpretation Comments PHOSPHORUS (BEAKER) (test code = 4.5 mg/dL 2.3-4.7 604) [id number] 22:49:00 Test Item Value Reference Range Interpretation Comments FIBRINOGEN LEVEL (BEAKER) (test 390 mg/dl 225-434 code = 658) RAD, ABDOMEN/KUB, 1 VIEW [id number] 22:46:00Reason for exam:->abdominal painShould this be performed [...] Sánchez Verified Date/Time: 05/30/2017 22:46:58 Reading Location: [address] Consult Reading Room , CHEST, 1 VIEW, NON [id number] 22:45:00Post-intubationReason for exam:- >tachypneaShould this be performed [...] Verified Date/Time: 0 05/30/2017 22:45:22 Reading Location: [facility] C013 Consult Reading Room PROTHROMBIN TIME/[id number] 22:44:00 Test Item Value Reference Range Interpretation Comments PROTIME (BEAKER) (test code = 22.6 seconds 11.7-14.7 H 759) INR (BEAKER) (test code = 370) 2.0 <=5.9 RECOMMENDED COUMADIN/WARFARIN INR THERAPY RANGESSTANDARD DOSE: 2.0 - 3.0 Includes: PROPHYLAXIS forvenous thrombosis, systemic embolization; TREATMENT for venous thrombosis and/or pulmonary embolus.HIGH RISK: Target INR is 2.5-3.5 for patients with mechanical heart valves.URINALYSIS W/ [id number] 22:34:00 Test Item Value Reference Range Interpretation [...] 1574) SOURCE(BEAKER) (test code = Urine, [place] 7489) BLOOD GAS, [id number] 22:25:00 Test Item Value Reference Range Interpretation [...] 36.6 C (test code = 1818) CALCIUM, [id number] 22:23:00 Test Item Value Reference Range Interpretation Comments CALCIUM IONIZED (BEAKER) (test 1.12 mmol/L 1.12-1.27 code = 698) PH, BLOOD (BEAKER) (test code = 7.36 1810)
--- OUTSIDE RECORDS SUMMARY | 2020-03-10 14:10 | XMS REPORT ---
:1935 Author Organization [facility] Address [address] [place] [address] Care Team Providers Name Role Phone Valle Unavailable [phone] PROBLEMS Type Condition ICD9-CM PFN06-RS Onset Condition SNOMED Code Notes Code Code Dates Status Problem Atherosclerosis of I25.10 Active 2714033236256 03 coronary artery of [place] heart Problem Proteinuria, R80.9 Active 13152113 unspecified Problem Status post above Z89.619 Active 734611947 knee amputation Problem Gout M10.9 Active 10425391 Problem Renal failure N19 Active 17169894 Problem HTN (hypertension) I10 Active 30238544 Problem Hypomagnesemia E83.42 Active 727788115 Problem Thrombocytosis D47.3 Active 3743658 Problem Stented coronary Z95.5 Active 458427596 artery Problem CKD (chronic N18.3 Active 669998611 kidney disease) stage 3, GFR 30-59 ml/min Problem Type 2 diabetes E11.65 Active 51005856 mellitus with hyperglycemia Problem Diabetes mellitus E11.29 Active 839078155 with kidney disease Problem Hyperglycemic E11.65 Active 419846666 crisis in diabetes mellitus Problem Hyperlipidemia E78.5 Active 45376089 Problem Anemia, D64.9 Active 132460343 unspecified type Problem Painful urination R30.9 Active 52193945 Problem S/P PICC central Z95.828 Active 230961648 line placement Problem MCFP Z79.4 Active 462797477 (current) use of insulin ALLERGIES No Known Allergies ENCOUNTERS from 1935 to 2020-02-13 Encounter Location Date Provider Diagnosis [facility] [address] Jan, [place] [address] IMMUNIZATIONS No Information SOCIAL HISTORY Tobacco Use: [...] Start Date End Date Status Frequency, Duration) Tresiba FlexTouch 200 INJECT 10 UNITS Active UNIT/ML SUBCUTANEOUSLY ONCE DAILY EVERY MORNING Lasix 40 MG 1 tablet Orally Once a day Active Tamsulosin HCl 0.4 MG TAKE 1 CAPSULE BY MOUTH Active DAILY Magnesium Oxide 400 MG 1 tablet as needed Orally Active Once a day Vitamin B Complex - 1 tablet Orally once daily Active Glimepiride 4 MG 1 tablet with breakfast or Active the first main meal of the day Orally Once a day for 90 days Allopurinol 300 MG 1 tablet Orally Once a day Active for 90 days Potassium Chloride 20 MEQ 1 tablet with food Orally Active Once a day for 30 day(s) Aspirin 81 MG 1 tablet Orally Once a day Active Atorvastatin Calcium 40 TAKE 1 TABLET BY MOUTH Active MG DAILY BD Ultra-Fine Milla Pen 1 needle with tresiba Active [place] 4mm x 32Gm subcutaneously once a day for 90 days Carvedilol 12.5 MG Orally Active PROCEDURES No Information RESULTS No Results REASON FOR VISIT Hgb 12-> 7.3 ED STAT MEDICAL (GENERAL) HISTORY Type Description Date Medical History Atherosclerosis of coronary artery of na tive heart Medical History Stented coronary artery Medical History Diabetes mellitus with kidney disease Medical History Proteinuria, unspecified Medical History HTN (hypertension) Medical History Hyperlipidemia Medical History Status post above knee amputation Medical History Gout Medical History Hypomagnesemia Medical History Renal failure Medical History Thrombocytosis Surgical History Left knee [phone] Surgical History Pace maker 1998 Surgical History [...] Information ASSESSMENTS No Information PLAN OF TREATMENT Next Appt Details Provider Name:Rocco Valle, 2020-05-11 01:00:00 PM, [address], [address], [place], [address], Provider Name:Rocco Valle, 2020-05-18 01:00:00 PM, [address], [address], [place], [address], Insurance Providers Payer Name Payer Address Payer Insured Patient Coverage Cover age Phone Name Relationship to Start Date End Date Insured MEDICARE Attn Part B [id number] Taurus Burrows [employer] Claims [address] [facility] [address] [facility] [address] [phone] Taurus Burrows and [facility] [address] [facility] [address]
--- OUTSIDE RECORDS SUMMARY | 2020-03-10 14:10 | XMS REPORT ---
:1935 Author Organization [facility] Address [address], [address] [place] [address] Care Team Providers Name Role Phone Valle Unavailable [phone] PROBLEMS Type Condition ICD9-CM SDS44-QA Onset Condition SNOMED Code Notes Code Code Dates Status Problem Atherosclerosis of I25.10 Active [id number] 03 coronary artery of [place] heart Problem Proteinuria, R80.9 Active 60223828 unspecified Problem Status post above Z89.619 Active 987578251 knee amputation Problem Gout M10.9 Active 64759910 Problem Renal failure N19 Active 54308893 Problem HTN (hypertension) I10 Active 05662855 Problem Hypomagnesemia E83.42 Active 619873244 Problem Thrombocytosis D47.3 Active 5914257 Problem Stented coronary Z95.5 Active 601186196 artery Problem CKD (chronic N18.3 Active 264203643 kidney disease) stage 3, GFR 30-59 ml/min Problem Type 2 diabetes E11.65 Active 35476627 mellitus with hyperglycemia Problem Diabetes mellitus E11.29 Active 275409734 with kidney disease Problem Hyperglycemic E11.65 Active 360713426 crisis in diabetes mellitus Problem Hyperlipidemia E78.5 Active 41603085 Problem Anemia, D64.9 Active 601478158 unspecified type Problem Painful urination R30.9 Active 39928274 Problem S/P PICC central Z95.828 Active 175663051 line placement Problem [facility] Z79.4 Active 121811812 (current) use of insulin ALLERGIES No Known Allergies ENCOUNTERS from 1935 to 2020-02-12 Encounter Location Date Provider Diagnosis Cele [facility] Feb, [facility] Valle Type [address] Family [address], mellitus w [facility] [address] hyperglycemia E11.65 ; Anemia, unspeci fied type D64.9 ; CK D (chronic kidney disease) stage 3, GFR 30-59 ml/min N1 8.3 ; HTN (hypertensi on) I10 ; Status post a afshin knee amputation Z89.619 ; Hyperlipidemi a E78.5 ; Tear of esoph jeny, subsequent enco unter S11.21XD ; Atherosclerosis of coronary artery of [place] heart I2 5.10 ; Gout M10.9 ; St ented coronary artery Z95.5 ; Proteinuria, unspecified R80 .9 ; Hypomagnesemia E83.42 and [facility] ( current) use of insulin Z79.4 IMMUNIZATIONS [...] No Information VITAL SIGNS Height 70 in Feb, Weight 198.0 lbs Feb, Temperature 98.0 degrees Fahrenheit Feb, BMI 28.41 kg/m2 Feb, Oximetry 97 % Feb, Respiratory Rate 18 /min Feb, Blood pressure systolic 133 mm Hg Feb, Blood pressure diastolic 72 mm Hg Feb, MEDICATIONS Medication SIG (Take, Route, Notes Start [...] Milla Pen 1 needle with tresiba Active [place] 4mm x 32Gm subcutaneously once a day for 90 days Carvedilol 12.5 MG Orally Active PROCEDURES No Information RESULTS No Results REASON FOR VISIT 3 mth lab f/u and [facility] MEDICAL (GENERAL) HISTORY Type Description Date Medical History Atherosclerosis of coronary artery of na tive heart Medical History Stented coronary artery Medical History Diabetes mellitus with kidney disease Medical History Proteinuria, unspecified Medical History HTN (hypertension) Medical History Hyperlipidemia Medical History Status post above knee amputation Medical History Gout Medical History Hypomagnesemia Medical History Renal failure Medical History Thrombocytosis Surgical History Left knee 6413-1557 Surgical History Pace maker 1997 Surgical History [...] STATUS No Information ASSESSMENTS Encounter Date Diagnosis Assessment Notes Treatment Notes Treatm ent Clinical Notes Feb, Type 2 diabetes UNCONTROLLED. mellitus with Continue Tresiba 40 hyperglycemia (ICD-10 units QD and - E11.65) titrate as titrated. Instructed to REDUCE Amaryl [...] may need to be adjusted and/or added.. Feb, Anemia, unspecified Iron Def Anemia vs. type (ICD-10 - D64.9) Chronic Loss vs. Aneami of Chronic Disease. Seen at ED, see TE. Taking supplements. Asymptomatic. Feb, CKD (chronic kidney Managed by nephro. disease) stage 3, GFR Upcoming appt. 30-59 ml/min (ICD-10 - N18.3) Feb, HTN (hypertension) COntrolled at home. (ICD-10 - I10) HTN Education This is a condition that [...] go to the ER immediately to address. Feb, Status post above knee amputation (ICD-10 - Z89.619) Feb, Hyperlipidemia RESUME Lipitor. (ICD-10 - E78.5) Hyperlipidemia Education: Hyperlipidemia refers to increased levels [...] you have questions, talk to your doctor. Feb, Tear of esophagus, ROR signed. Will subsequent encounter refer to GI for (ICD-10 - S11.21XD) further foll ow-up. ?ANemia (Chronic Loss vs. CKD) DOES NOT WANT TO FOLLOW-UP WITH GI. Doing well. No further episodes. Feb, Atherosclerosis of coronary artery of [place] heart (ICD-10 - I25.10) Feb, Gout (ICD-10 - M10.9) Increased to 300 mg once daily.. Will monitor. Education given. Feb, Stented coronary artery (ICD-10 - Z95.5) Feb, Proteinuria, . Managed by unspecified (ICD-10 - nephrology R80.9) Feb, Hypomagnesemia Continue current (ICD-10 - E83.42) regimen. 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 -- Dietary and Lifestyle modifications addressed regarding diet, exercise and weight managemen t. -- Treatment options, risks and benefits, side effects reviewed in detail. -- Advised on signs/symptoms to monitor and when to call clinic and/or visit the nearest ER. Patient verbalized understanding and agreeable with plan. PLAN OF TREATMENT Treatment Notes Assessment Notes Clinical Notes Type [...] may need to be adjusted and/or added.. Anemia, unspecified type Iron Def Anemia vs. Chronic Loss vs. Aneami of Chronic Disease. Seen at ED, see TE. Taking supplements. Asymptomatic. CKD (chronic kidney disease) stage Managed by nephro. Deon ng appt. 3, GFR 30-59 ml/min HTN [...] Order Date Lipid Panel With LDL/HDL Ratio 2020-02-12 Microalbumin/Creat Ratio, Random Ur 2020-02-12 Hemoglobin A1c 2020-02-12 Magnesium, Serum 2020-02-12 Comp. Metabolic Panel (14) (CMP) 2020-02-12 Uric Acid, Serum 2020-02-12 CBC With Differential/Platelet 2020-02-12 Next Appt Details 3 Months + Labs 1 week before Reason: Provider Name:Rocco Valle, 2020-05-11 01:00:00 PM, [address], [address], [place], [address], Provider Name:Rocco Valle, 2020-05-18 01:00:00 PM, [address], [place], [address], Insurance Providers Payer Name Payer Address Payer Insured Patient Coverage Cover age Phone Name Relationship to Start Date End Date Insured [facility] [address] [phone] Taurus Burrows and [facility] [address] [facility] [address] MEDICARE Attn Part B [id number] Taurus Burrows [employer] Claims [address] [place] [address]
--- OUTSIDE RECORDS SUMMARY | 2020-03-10 14:10 | XMS REPORT ---
:1935 Author Organization [facility] Address [address] [place], [address] [place] [address] Care Team Providers Name Role Phone Valle Unavailable [phone] PROBLEMS Type Condition ICD9-CM [id number] Onset Condition SNOMED Code Notes Code Code Dates Status Problem Atherosclerosis of I25.10 Active 0645813077455 03 coronary artery of [place] heart Problem Proteinuria, R80.9 Active 45209786 unspecified Problem Status post above Z89.619 Active 568288518 knee amputation Problem Gout M10.9 Active 88568233 Problem Renal failure N19 Active 79736216 Problem HTN (hypertension) I10 Active 40219701 Problem Hypomagnesemia E83.42 Active 930278008 Problem Thrombocytosis D47.3 Active 0079658 Problem Stented coronary Z95.5 Active 945651512 artery Problem CKD (chronic N18.3 Active 143787309 kidney disease) stage 3, GFR 30-59 ml/min Problem Type 2 diabetes E11.65 Active 32495043 mellitus with hyperglycemia Problem Diabetes mellitus E11.29 Active 995418663 with kidney disease Problem Hyperglycemic E11.65 Active 515283683 crisis in diabetes mellitus Problem Hyperlipidemia E78.5 Active 98905607 Problem Anemia, D64.9 Active 194940319 unspecified type Problem Painful urination R30.9 Active 40061509 Problem S/P PICC central Z95.828 Active 282207646 line placement Problem [facility] Z79.4 Active 030432223 (current) use of insulin ALLERGIES No Known Allergies ENCOUNTERS from 1935 to 2020-03-06 Encounter Location Date Provider Diagnosis Cele [facility] [address] Feb, [facility] Valle History o f GI bleed Drive Family [address], Z87.19 ; [place] [address] unspecified ty pe D64.9 and Hypomagnese nirav E83.42 IMMUNIZATIONS No Information SOCIAL HISTORY Tobacco Use: [...] Start Date End Date Status Frequency, Duration) Potassium Chloride 20 MEQ 1 tablet with food Orally Active Once a day for 30 day(s) Allopurinol 300 MG 1 tablet Orally Once a day Active for 90 days Magnesium Oxide 400 MG 1 tablet as needed Orally Active Once a day Lasix 40 MG 1 tablet Orally Once a day Active Tamsulosin HCl 0.4 MG TAKE 1 CAPSULE BY MOUTH Active DAILY Glimepiride 4 MG 1 tablet with breakfast or Active the first main meal of the day Orally Once a day for 90 days Carvedilol 12.5 MG Orally Active BD Ultra-Fine Milla Pen 1 needle with tresiba Active [place] 4mm x 32Gm subcutaneously once a day for 90 days Aspirin 81 MG 1 tablet Orally Once a day Active Tresiba FlexTouch 200 INJECT 10 UNITS Active UNIT/ML SUBCUTANEOUSLY ONCE DAILY EVERY MORNING Atorvastatin Calcium 40 TAKE 1 TABLET BY MOUTH Active MG DAILY Vitamin B Complex - 1 tablet Orally once daily Active PROCEDURES No Information RESULTS No Results REASON FOR VISIT LABS NEEDED MEDICAL (GENERAL) HISTORY Type Description Date Medical History Atherosclerosis of coronary artery of na tive heart Medical History Stented coronary artery Medical History Diabetes mellitus with kidney disease Medical History Proteinuria, unspecified Medical History HTN (hypertension) Medical History Hyperlipidemia Medical History Status post above knee amputation Medical History Gout Medical History Hypomagnesemia Medical History Renal failure Medical History Thrombocytosis Surgical History Left knee [id number] Surgical History Pace maker 1997 Surgical History [...] Treatment Notes Treatm ent Clinical Notes Feb, History of GI bleed (ICD-10 - Z87.19) Feb, Anemia, unspecified type (ICD-10 - D64.9) Feb, Hypomagnesemia (ICD-10 - E83.42) PLAN OF TREATMENT Medication Medication Name Sig Start Date Stop Date Tamsulosin HCl 0.4 MG TAKE 1 CAPSULE BY MOUTH DAILY Atorvastatin Calcium 40 MG TAKE 1 TABLET BY MOUTH DAILY Treatment Notes Test Name Order Date Iron and TIBC 2020-03-06 Ferritin, Serum 2020-03-06 Hematopath Consultation, Smear 2020-03-06 CBC With Differential/Platelet 2020-03-06 Next Appt Details Provider Name:Rocco Valle, 2020-03-09 01:30:00 PM, [address], [place], [address], Provider Name:Rocco Valle, 2020-05-11 01:00:00 PM, [address], [place], [address], Provider Name:Rocco Valle, 2020-05-18 01:00:00 PM, [address], [place], [address], Insurance Providers Payer Name Payer Address Payer Insured Patient Coverage Cover age Phone Name Relationship to Start Date End Date Insured MEDICARE Attn Part B [id number] Taurus Burrows [employer] Claims [address] [facility] [address] [facility] [address] [phone] [address] [facility] [address] [facility] [address]
--- OUTSIDE RECORDS SUMMARY | 2020-03-10 14:10 | XMS REPORT ---
:1935 Author Organization [facility] Address [address] [place], [place] [place] [address] Care Team Providers Name Role Phone Valle Unavailable [phone] PROBLEMS Type Condition ICD9-CM RHT85-EM Onset Condition SNOMED Code Notes Code Code Dates Status Problem Atherosclerosis of I25.10 Active 7517938035052 03 coronary artery of [place] heart Problem Proteinuria, R80.9 Active 51781716 unspecified Problem Status post above Z89.619 Active 932860026 knee amputation Problem Gout M10.9 Active 53374862 Problem Renal failure N19 Active 99600484 Problem HTN (hypertension) I10 Active 52672526 Problem Hypomagnesemia E83.42 Active 694725417 Problem Thrombocytosis D47.3 Active 8736734 Problem Stented coronary Z95.5 Active 834301736 artery Problem CKD (chronic N18.3 Active 223880829 kidney disease) stage 3, GFR 30-59 ml/min Problem Type 2 diabetes E11.65 Active 80407315 mellitus with hyperglycemia Problem Diabetes mellitus E11.29 Active 330656174 with kidney disease Problem Hyperglycemic E11.65 Active 465063782 crisis in diabetes mellitus Problem Hyperlipidemia E78.5 Active 43499784 Problem Anemia, D64.9 Active 477959921 unspecified type Problem Painful urination R30.9 Active 21649891 Problem S/P PICC central Z95.828 Active 678924885 line placement Problem detention Z79.4 Active 489154791 (current) use of insulin ALLERGIES No Known Allergies ENCOUNTERS from 1935 to 2020-02-12 Encounter Location Date Provider Diagnosis [facility] [address] Feb, [facility] annual Family Medicine [address] [place] [address] subsequent Z00 .00 IMMUNIZATIONS No Information SOCIAL HISTORY Tobacco Use: [...] 28.41 kg/m2 Feb, Oximetry 97 % Feb, Blood pressure systolic 133 mm Hg [...] Milla Pen 1 needle with tresiba Active [place] 4mm x 32Gm subcutaneously once a day for 90 days Carvedilol 12.5 MG Orally Active PROCEDURES No Information RESULTS No Results REASON FOR VISIT [facility]W MEDICAL (GENERAL) HISTORY Type Description Date [...] Medical History Thrombocytosis Surgical History Left knee 2187-6807 Surgical History Pace maker 1997 Surgical History [...] Treatment Notes Treatm ent Clinical Notes Feb, Medicare annual wellness visit, subsequent (ICD-10 - Z00.00) PLAN OF TREATMENT Next Appt Details SUBSEQUENT ANNUAL WELLNESS VISIT 1 YEAR Reason: Provider Name:Rocco Hernandez Valle, 2020-05-11 01:00:00 PM, [address], [place], [address], Provider Name:Rocco Valle, 2020-05-18 01:00:00 PM, [address], [place], [address], Insurance Providers Payer Name Payer Address Payer Insured Patient Coverage Cover age Phone Name Relationship to Start Date End Date Insured [facility] [address] [phone] Taurus Burrows and [facility] [address] [facility] [address] MEDICARE Attn Part B [id number] Taurus Burrows [employer] Claims [address] [facility] [address]
--- NOTE | 2020-03-10 16:17 | RAD REPORT ---
EXAM DESCRIPTION: RAD - Chest Single View - 03/10/2020 4:06 pm CLINICAL HISTORY: edema COMPARISON: Portable December 2019 TECHNIQUE: AP portable chest image was obtained 03/10/2020 4:06 pm . FINDINGS: Right lung field is clear. Left costophrenic angle blunting is stable from prior imaging. Pacemaker battery pack overlies the lower left chest. No new left lung base findings suspected. Sternotomy wires are in place. Trachea is midline. Heart and vasculature are normal. No measurable pl eural effusion and no pneumothorax. No acute bony abnormality seen. No acute aortic findings suspecte d. IMPRESSION: Left base pleural and parenchymal opacification similar to December 2019. No acute failure or volume overload.
[2020-03-10 16:28] LABS: Absolute Lymphocytes (CBC) 1.2 K/uL (0.7-4.9); Basophils % 0.9 % (0-1.3); Hematocrit 18.2 % (39.6-49.0); Lymphocytes % 12.9 % (15.3-44.8); MPV 8.7 fL (7.6-11.3)
[2020-03-10 16:29] LABS: Protime INR 1.27
[2020-03-10] MEDS ORDERED: PANTOPRAZOLE 40 MG INJ ONE (16:35)
[2020-03-10 16:45] LABS: ALT/SGPT 16 U/L (12-78); AST/SGOT 19 U/L (15-37); Albumin 3.2 g/dL (3.4-5.0); Alkaline Phosphatase 69 U/L (45-117); BUN Blood Urea Nitrogen 100 mg/dL (7-18); Bicarbonate 25 mmol/L (21-32); Bilirubin Direct 0.3 mg/dL (0-0.2); Bilirubin Total 0.6 mg/dL (0.2-1.0); Glucose Level 295 mg/dL (74-106); Magnesium 2.9 mg/dL (1.8-2.4); NT PRO-BNP 1191 pg/mL (<450); Potassium 4.1 mmol/L (3.5-5.1); Protein, Total 6.6 g/dL (6.4-8.2); Sodium Level 136 mmol/L (136-145); Troponin (Emerg Dept Use Only) < 0.02 ng/mL (0.0-0.045)
[2020-03-10] MEDS ORDERED: PANTOPRAZOLE INJ 80 MG in NA CHLORIDE 0.9% 250 ML IV SCH (17:00)
[2020-03-10] MEDS ORDERED: NA CHLORIDE 0.9% 250 ML ONE (17:33)
[2020-03-10 18:09] LABS: Anisocytosis 3+; Blood Morphology Comment NOTED (NOT SEEN); Platelet Estimate ADEQ; Target Cells FEW; White Blood Cell Scan OK (OK)
--- NOTE | 2020-03-10 18:50 | ER ---
Nurse's Notes [facility] Name: Javan Burrows Age: 84 yrs Sex: Male : 1935 Arrival Date: 03/10/2020 Time: 14:06 Bed 4 Private MD: Rocco Valle Diagnosis: Gastrointestinal hemorrhage, unspecified;Anemia in chronic diseases classified elsewhere;Acute kidney failure;Left sided colitis with rectal bleeding-sigmoid/diverticulitis;Cardiomegaly;Pleural effusion in conditions classified elsewhere Presentation: 03/10 14:35 Chief complaint: Patient's son or daughter states: has hx of anemia, stopped taking his iw iron supplements a week ago , Dr. Valle sent him over for low Hgb, was a 5.8 yesterday. Coronavirus screen: At this time, the client does not indicate any symptoms associated with coronavirus-19. Ebola Screen: Patient negative for fever greater than or equal to 101.5 degrees Fahrenheit, and additional compatible Ebola Virus Disease symptoms Patient denies exposure to infectious person. Patient denies travel to an Ebola-affected area in the 21 days before illness onset. No symptoms or risks identified at this time. Initial Sepsis Screen: Does the patient meet any 2 criteria? No. Patient's initial sepsis screen is negative. Does the patient have a suspected source of infection? No. Patient's initial sepsis screen is negative. Risk Assessment: Do you want to hurt yourself or someone else? Patient reports no desire to harm self or others. Onset of symptoms was March 10, 2020. 14:35 Method Of Arrival: Wheelchair iw 14:35 Acuity: GOLDIE 2 iw Historical: - Allergies: 14:38 NKA; iw - Home Meds: 14:38 allopurinol 300 mg Oral tab 1 tab once daily [Active]; aspirin 81 mg Oral chew 1 tab iw once daily [Active]; atorvastatin 40 mg Oral tab 1 tab once daily [Active]; carvedilol 3.125 mg Oral tab 1 tab 2 times per day [Active]; furosemide 40 mg Oral tab 1 tab 2 times per day [Active]; glimepiride 4 mg Oral tab 1 tab once daily [Active]; potassium chloride 20 mEq Oral TbER 1 tab once daily [Active]; tamsulosin 0.4 mg Oral cp24 1 cap once daily [Active]; Tresiba FlexTouch U-100 subcutaneous [Active]; - PMHx: 14:38 a-fib; Diabetes - NIDDM; Gout; Hypertension; Myocardial infarction; Pacemaker; iw - Immunization history:: Adult Immunizations up to date. - Social history:: Smoking status: Patient/guardian denies using tobacco, but has a distant history of tobacco abuse. Screenin:27 Abuse screen: Denies threats or abuse. Denies injuries from another. Nutritional jl7 screening: No deficits noted. Tuberculosis screening: No symptoms or risk factors identified. Fall Risk No fall in past 12 months (0 pts). No secondary diagnosis (0 pts). IV access (20 points). Ambulatory Aid- None/Bed Rest/Nurse Assist (0 pts). Gait- Normal/Bed Rest/Wheelchair (0 pts) Mental Status- Oriented to own ability (0 pts). Total Alonzo Fall Scale indicates No Risk (0-24 pts). Assessment: 15:30 General: Appears in no apparent distress. uncomfortable, Behavior is calm, cooperative, jl7 appropriate for age. Pain: Denies pain. Neuro: Level of Consciousness is awake, alert, obeys commands, Oriented to person, place, time, situation. Cardiovascular: Denies chest pain, shortness of breath, Heart tones present Murmur present. Respiratory: Airway is patent Respiratory effort is even, unlabored, Respiratory pattern is regular, symmetrical. GI: Abdomen is round bruised on left upper quadrant, right lower quadrant and left lower quadrant Stools are reported to be normal. Derm: Skin is dry, Skin is pale, Skin temperature is cool Decubitus located on sacrum approximately 2.6 cm to 7.5 cm is is draining none noted. Musculoskeletal: BKA of right leg. 16:30 Reassessment: Patient appears in no apparent distress at this time. No changes from jl7 previously documented assessment. Patient and/or family updated on plan of care and expected duration. Pain level reassessed. Patient is alert, oriented x 3, equal unlabored respirations, skin warm/dry/pink. 17:40 Reassessment: First unit PRBCs started to right wrist. jl7 18:54 Reassessment: Patient appears in no apparent distress at this time. No changes from jl7 previously documented assessment. Patient and/or family updated on plan of care and expected duration. Pain level reassessed. Patient is alert, oriented x 3, equal unlabored respirations, skin warm/dry/pink. Patient denies pain at this time. 18:55 Reassessment: ERP reports POC is once 2 units have infused we will transfer to [address] 19:10 General: Appears in no apparent distress. Behavior is appropriate for age. Pain: Denies ea pain. Neuro: Level of Consciousness is awake, alert, obeys commands, Oriented to person, place, time, situation. Cardiovascular: Patient's skin is warm and dry. Respiratory: Airway is patent Respiratory effort is even, unlabored, Respiratory pattern is regular, symmetrical. Derm: Skin is pink, warm \T\ dry. Musculoskeletal: right BKA. 21:45 Reassessment: Awaiting on repeat lab results. ea 03/11 00:38 Reassessment: Patient and/or family updated on plan of care and expected duration. Pain ea level reassessed. Patient is alert, oriented x 3, equal unlabored respirations, skin warm/dry/pink. 04:15 Reassessment: Patient appears in no apparent distress at this time. Patient and/or sf family updated on plan of care and expected duration. Pain level reassessed. Patient is alert, oriented x 3, equal unlabored respirations, skin warm/dry/pink. Patient denies pain at this time. Vital Signs: 03/10 14:39 BP 113 / 95; Pulse 93; Resp 16; Temp 99.0; Pulse Ox 99% on R/A; Weight 90.72 kg; Pain iw 0/10; 16:30 BP 127 / 31; Pulse 90; Resp 15; Pulse Ox 100% ; Pain 0/10; jl7 17:49 BP 128 / 62; Pulse 88; Resp 14; Pulse Ox 100% ; 7 18:02 BP 118 / 48; Pulse 92; Resp 14; Pulse Ox 99% ; jl7 19:50 BP 107 / 54; Pulse 94; Resp 17; Pulse Ox 99% ; ea 20:00 BP 118 / 67; Pulse 94; Resp 18; Pulse Ox 100% ; ea 21:45 BP 154 / 51; Pulse 74; Resp 16; Pulse Ox 100% ; ea 22:30 BP 138 / 66; Pulse 81; Resp 16; Pulse Ox 100% ; ea 23:30 BP 135 / 58; Pulse 93; Resp 18; Pulse Ox 98% on R/A; ea 03/11 00:30 BP 143 / 73; Pulse 98; Resp 16; Pulse Ox 98% on R/A; ea 03:50 BP 116 / 77 Supine (auto/); Pulse 101 MON; Resp 16 S; Pulse Ox 96% on R/A; sf 04:15 BP 150 / 55 Supine (auto/); Pulse 99 MON; Resp 16; Pulse Ox 98% on R/A; sf ED Course: 03/10 14:06 Patient arrived in ED. mr 14:07 Rocco Valle, is Private Physician. mr 14:37 Triage completed. iw 14:39 Arm band placed on. iw 15:38 Jamie Ynag PA is PHCP. cp 15:38 Cony Bunch MD is Attending Physician. cp 15:48 Lenore Barahona, AGUSTINA is Primary Nurse. jl7 16:05 XRAY Chest (1 view) In Process Unspecified. EDMS 16:15 Served as a sales solutions representative during rectal exam. Initial lab(s) drawn, by md, sent to lab. jl7 COVID swab sent to lab. T\T\S collected, blood band applied to patient. Inserted saline lock: 20 gauge in right wrist, using aseptic technique. Blood collected. 16:28 Patient has correct armband on for positive identification. Placed in gown. Bed in low mh5 position. Call light in reach. Side rails up X2. Adult w/ patient. Warm blanket given. clinical study manager on. Pulse ox on. NIBP on. 16:29 EKG done, by ED staff, reviewed by Cony Bunch MD. [facility] 16:30 Inserted saline lock: 20 gauge in right antecubital area, using aseptic technique. jl7 17:44 initiated transfer to [facility]. bd 21:57 Followed up with Kacy regarding the transfer. Stated she would reach out to their tt3 physician and call back. 02 00:40 Patient transferred, IV remains in place. ea 01:42 Attending Physician role handed off by Cony Bunch MD leonidas 01:42 Jamie Reid MD is Attending Physician. leonidas 01:50 [facility] declined due to hemoglobin levels. tt3 02:00 Dr. Reid initiated transfer at [facility]. tt3 02:06 Initiated transfer at [facility] with Julia. Was placed on hold while she did a bed tt3 check and stated that they were at capacity. 02:11 Initiated transfer at [facility] with Danny. He took pt information and did a bed check and tt3 all campuses are at capacity. 02:[address] [facility] and gave pt information. Was informed they would call back if they tt3 found something, that they were going to begin working on the case. 02:28 CT Stone Protocol In Process Unspecified. EDMS 02:30 [facility] called back and stated they are waiting to hear back from a few places. One is tt3 located in [place] and the other is in the [facility] area. 02:30 Erazo cath inserted, using sterile technique, 16 Fr., by me, balloon inflated, to rr5 gravity drainage, urine specimen collected. 02:38 [facility] called back and stated that the places mentioned currently have no beds. They tt3 stated we could try calling the [facility] and speak with the warehouse specialist and be placed on a list. They provided me with the house supervisors number . Information passed on to primary nurse. Dr. Reid and the charge nurse. 02:50 Initiated transfer at [facility] with Lucrecia Dick. tt3 03:30 Lucrecia Dick called back with their physician to do doc to doc with Dr. Reid. tt3 03:52 Lucrecia Dick called back with admin approval. The accepting physician is Dr. Shanks. Nurse tt3 to call report to . Face sheet faxed to per Lucrecia's request. Administered Medications: 03/10 16:30 Drug: ProTONIX 40 mg Route: IVP; Site: right antecubital; jl7 19:30 Follow up: Response: No adverse reaction sf 16:49 Drug: ProTONIX 40 mg Route: IVP; Site: right antecubital; jl7 19:30 Follow up: Response: No adverse reaction sf 17:40 Drug: ProTONIX 8 mg/hr Route: IV; Rate: 25 ml/hr; Site: left antecubital; jl7 22:43 Follow up: Response: No adverse reaction; IV Status: Completed infusion sf 20:36 Drug: Lasix 20 mg Route: IVP; Site: right antecubital; ea 22:43 Follow up: Response: No adverse reaction 03/11 02:36 Drug: Viscous Lidocaine Liquid (4 %) 10 ml Route: Mucous Membrane; rr5 Outcome: 03/10 18:50 ER care complete, transfer ordered by . cp 19:30 Instructed on the need for transfer. ea 03/11 04:49 Transferred by ground EMS to [facility], Transfer form ea completed. Condition: stable 04:50 Patient left the ED. ea Signatures: Dispatcher [employer] EDMS Arianna Brody Corey, MD MD cha Rivera, [place] mr BoatengNita, RN RN Jamie Galarza, PA PA Rhiannon Curry Lenore Joy RN RN jl7 Meg Zepeda RN Gino Sparks ea RN RN rr5 Cali Alvarado tt3 Hilton Gonzalez RN RN sf Corrections: (The following items were deleted from the chart) 02:25 02:00 [facility] declined due to hemoglobin levels. tt3 tt3
--- NOTE | 2020-03-10 18:50 | EDPHYS ---
Physician Documentation [facility] Name: Javan Burrows Age: 84 yrs Sex: Male : 1935 Arrival Date: 03/10/2020 Time: 14:06 Bed 4 Private MD: [facility] ED Physician Jamie Reid HPI: 03/10 16:00 This 84 yrs old Male presents to ER via Wheelchair with complaints of cp Abnormal Lab Results. 16:00 The patient's problem is reported as weakness, that is generalized. Onset: The cp symptoms/episode began/occurred gradually. Duration: The episode is continuous. Associated signs and symptoms: Pertinent negatives: abdominal pain, chest pain, confusion, diaphoresis, diarrhea, headache, palpitations, vomiting. Patient's baseline: Neuro: alert and fully oriented, Motor: no deficits, Ambulation: unable to walk, uses wheelchair, Speech: normal. Patient reports he was referred to ED for evaluation of anemia after having blood drawn yesterday by DR Valle. Historical: - Allergies: 14:38 NKA; iw - Home Meds: 14:38 allopurinol 300 mg Oral tab 1 tab once daily [Active]; aspirin 81 mg Oral chew 1 tab iw once daily [Active]; atorvastatin 40 mg Oral tab 1 tab once daily [Active]; carvedilol 3.125 mg Oral tab 1 tab 2 times per day [Active]; furosemide 40 mg Oral tab 1 tab 2 times per day [Active]; glimepiride 4 mg Oral tab 1 tab once daily [Active]; potassium chloride 20 mEq Oral TbER 1 tab once daily [Active]; tamsulosin 0.4 mg Oral cp24 1 cap once daily [Active]; Tresiba FlexTouch U-100 subcutaneous [Active]; - PMHx: 14:38 a-fib; Diabetes - NIDDM; Gout; Hypertension; Myocardial infarction; Pacemaker; iw - Immunization history:: Adult Immunizations up to date. - Social history:: Smoking status: Patient/guardian denies using tobacco, but has a distant history of tobacco abuse. ROS: 16:05 Constitutional: Negative for body aches, chills, fever, poor PO intake. cp 16:05 Eyes: Negative for injury, pain, redness, and discharge. cp 16:05 Cardiovascular: Negative for chest pain, edema, palpitations. 16:05 Respiratory: Negative for cough, shortness of breath, wheezing. 16:05 Abdomen/GI: Negative for abdominal pain, nausea, vomiting, and diarrhea. 16:05 Neuro: Positive for weakness, Negative for altered mental status, headache, syncope. 16:05 All other systems are negative. Exam: 16:10 ECG was reviewed by the Attending Physician. cp 16:12 Constitutional: The patient appears in no acute distress, alert, awake, cp non-diaphoretic, non-toxic, well developed, well nourished, obese. 16:12 Head/Face: Normocephalic, atraumatic. cp 16:12 Eyes: Periorbital structures: appear normal, Conjunctiva: normal, no exudate, no injection, Sclera: no appreciated abnormality, Lids and lashes: appear normal, bilaterally. 16:12 ENT: External ear(s): are unremarkable, Nose: is normal, Posterior pharynx: Airway: no evidence of obstruction, patent. 16:12 Neck: ROM/movement: is normal, is supple, without pain, no range of motions limitations. 16:12 Chest/axilla: Inspection: normal, Palpation: is normal, no crepitus, no tenderness. 16:12 Cardiovascular: Rate: normal, Rhythm: regular, Edema: ankle edema, that is mild, left lower extremity, JVD: is not appreciated. 16:12 Respiratory: the patient does not display signs of respiratory distress, Respirations: normal, no use of accessory muscles, no retractions, labored breathing, is not present, Breath sounds: are clear throughout, no decreased breath sounds, no stridor, no wheezing. 16:12 Abdomen/GI: Inspection: bruising, right lower quadrant and left lower quadrant, Palpation: abdomen is soft and non-tender, in all quadrants, Rectal exam: Stool: guaiac positive, black. 16:12 Musculoskeletal/extremity: right above knee amputation. 16:12 Skin: Appearance: Color: pale. 16:12 Neuro: Orientation: to person, place \T\ time. Mentation: is normal. 16:15 CT study not indicated or reported. Reason for not performing CT: neuro exam normal cp Vital Signs: 14:39 BP 113 / 95; Pulse 93; Resp 16; Temp 99.0; Pulse Ox 99% on R/A; Weight 90.72 kg; Pain iw 0/10; 16:30 BP 127 / 31; Pulse 90; Resp 15; Pulse Ox 100% ; Pain 0/10; jl7 17:49 BP 128 / 62; Pulse 88; Resp 14; Pulse Ox 100% ; jl7 18:02 BP 118 / 48; Pulse 92; Resp 14; Pulse Ox 99% ; jl7 19:50 BP 107 / 54; Pulse 94; Resp 17; Pulse Ox 99% ; ea 20:00 BP 118 / 67; Pulse 94; Resp 18; Pulse Ox 100% ; ea 21:45 BP 154 / 51; Pulse 74; Resp 16; Pulse Ox 100% ; ea 22:30 BP 138 / 66; Pulse 81; Resp 16; Pulse Ox 100% ; ea 23:30 BP 135 / 58; Pulse 93; Resp 18; Pulse Ox 98% on R/A; ea 03/11 00:30 BP 143 / 73; Pulse 98; Resp 16; Pulse Ox 98% on R/A; ea 03:50 BP 116 / 77 Supine (auto/); Pulse 101 MON; Resp 16 S; Pulse Ox 96% on R/A; sf 04:15 BP 150 / 55 Supine (auto/); Pulse 99 MON; Resp 16; Pulse Ox 98% on R/A; sf MDM: 03/10 15:48 Patient medically screened. 17:37 Physician consultation: was contacted at 17:38, regarding regarding transfer, to [facility]. spoke with DR German, GI physician, who will consult on patient and DR Dinero, hospitalist, who will accept patient to ICU floor if bed available. 18:00 Physician consultation: DR Dinero, hospitalist \T\[facility], requests transfusion of 2 cp units and recheck H/H prior to transfer. 22:04 Data reviewed: vital signs, nurses notes, lab test result(s), EKG, radiologic studies, cp plain films, and as a result, I will transfer patient. 03/10 15:48 Order name: Basic Metabolic Panel; Complete Time: 17:29 cp 03/10 15:48 Order name: CBC with Diff; Complete Time: 19:15 cp 03/10 16:57 Interpretation: Normal except: HGB 5.7; HCT 18.2; RBC 1.90; MCV 96.0; MCHC 31.5; RDW cp 26.2; ALBERTA% 78.0; LYM% 12.9. 03/10 15:48 Order name: LFT's; Complete Time: 17:29 cp 03/10 15:48 Order name: Magnesium; Complete Time: 17:29 cp 03/10 15:48 Order name: NT PRO-BNP; Complete Time: 17:29 cp 03/10 15:48 Order name: PT-INR; Complete Time: 16:57 cp 03/10 16:57 Interpretation: Abnormal: PT 15.0. cp 03/10 15:48 Order name: Troponin (emerg Dept Use Only); Complete Time: 17:29 cp 03/10 15:48 Order name: Ptt, Activated; Complete Time: 16:57 cp 03/10 16:57 Interpretation: Within normal limits: PTT 25.4. cp 03/10 15:48 Order name: Type And Screen cp 03/10 15:56 Order name: Occult Blood--Ancillary; Complete Time: 16:57 bd 03/10 16:32 Order name: CBC Smear Scan; Complete Time: 19:15 EDNV 03/10 16:37 Order name: Bb Add On bd 03/10 16:39 Order name: Packed RBC Leukored EDNV 03/10 15:48 Order name: XRAY Chest (1 view); Complete Time: 16:22 cp 03/10 16:22 Interpretation: Report reviewed. cp 03/10 15:48 Order name: EKG; Complete Time: 15:49 cp 03/10 15:48 Order name: Cardiac monitoring; Complete Time: 16:51 cp 03/10 18:12 Order name: SARS-COV-2 RT PCR; Complete Time: 19:15 EDNV 03/10 19:52 Order name: Hematocrit: post transfusion check; Complete Time: 01:43 cp 03/10 19:52 Order name: Hemoglobin: post transfusion check; Complete Time: 01:43 cp 03/10 22:38 Order name: CBC with Diff; Complete Time: 01:43 tl1 03/11 01:47 Order name: CT Stone Protocol leonidas 03/11 02:44 Order name: Urine Dipstick--Ancillary (enter results); Complete Time: 04:29 tt3 03/11 02:58 Order name: Packed RBCs (Additional Unit) EDNV 03/10 15:48 Order name: EKG - Nurse/Tech; Complete Time: 16:51 cp 03/10 15:48 Order name: IV Saline Lock; Complete Time: 16:51 cp 03/10 15:48 Order name: Labs collected and sent; Complete Time: 16:51 cp 03/10 15:48 Order name: O2 Per Protocol; Complete Time: 16:51 cp 03/10 15:48 Order name: O2 Sat Monitoring; Complete Time: 16:51 cp 03/11 01:47 Order name: Erazo; Complete Time: 02:37 leonidas EC:10 Rate is 91 beats/min. Rhythm is regular. QRS interval is prolonged at 102 msec. QT cp interval is normal. T waves are Inverted in lead aVL. Interpreted by me. Reviewed by me. Administered Medications: 16:30 Drug: ProTONIX 40 mg Route: IVP; Site: right antecubital; jl7 19:30 Follow up: Response: No adverse reaction sf 16:49 Drug: ProTONIX 40 mg Route: IVP; Site: right antecubital; jl7 19:30 Follow up: Response: No adverse reaction sf 17:40 Drug: ProTONIX 8 mg/hr Route: IV; Rate: 25 ml/hr; Site: left antecubital; jl7 22:43 Follow up: Response: No adverse reaction; IV Status: Completed infusion sf 20:36 Drug: Lasix 20 mg Route: IVP; Site: right antecubital; ea 22:43 Follow up: Response: No adverse reaction 02 02:36 Drug: Viscous Lidocaine Liquid (4 %) 10 ml Route: Mucous Membrane; rr5 Disposition: 03:14 Co-signature as Attending Physician, Jamie Reid MD I agree with the assessment and leonidas plan of care. Disposition: 03/10/20 18:50 Transfer ordered to [facility]. Diagnosis are Gastrointestinal hemorrhage, unspecified, Anemia in chronic diseases classified elsewhere, Acute kidney failure, Left sided colitis with rectal bleeding - sigmoid/diverticulitis, Cardiomegaly, Pleural effusion in conditions classified elsewhere. - Reason for transfer: Higher level of care. - Accepting physician is Doctor. - Condition is Stable. - Problem is new. - Symptoms have improved. Signatures: Dispatcher [employer] Jamie Hyde MD MD cha Williams, Irene, RN RN Benson Dubose, STEPDOWN NURSE-C STEPDOWN NURSE-Cla1 Jamie Yang PA PA cp Leal, Jahala, RN RN jl7 Meg Zepeda RN RN ea Gino Guadarrama, RN RN rr5 Hilton Gonzalez RN sf Corrections: (The following items were deleted from the chart) 03/10 17:15 15:49 CORONAVIRUS+ ordered. EDMS EDMS 03/11 03:14 03/10 18:50 03/10/2020 18:50 Transfer ordered to [facility]. leonidas Diagnosis is Gastrointestinal hemorrhage, unspecified; Anemia in chronic diseases classified elsewhere. Reason for transfer: Higher level of care. Accepting physician is Doctor. Condition is Stable. Problem is new. Symptoms have improved. cp 03/11 04:50 03:14 03/10/2020 18:50 Transfer ordered to [facility]. ea Diagnosis is Gastrointestinal hemorrhage, unspecified; Anemia in chronic diseases classified elsewhere; Acute kidney failure; Left sided colitis with rectal bleeding - sigmoid/diverticulitis; Cardiomegaly; Pleural effusion in conditions classified elsewhere. Reason for transfer: Higher level of care. Accepting physician is Doctor. Condition is Stable. Problem is new. Symptoms have improved. leonidas
[2020-03-10] MEDS ORDERED: FUROSEMIDE 20 MG/ 2ML VIAL ONE (20:48)
[2020-03-10 21:47] LABS: Hematocrit 20.6 % (39.6-49.0)
[2020-03-10 23:12] LABS: Absolute Lymphocytes (CBC) 1.5 K/uL (0.7-4.9); Basophils % 0.5 % (0-1.3); Lymphocytes % 21.4 % (15.3-44.8); MPV 9.2 fL (7.6-11.3); RBC Red Blood Cell Count 2.15 M/uL (4.33-5.43)
[2020-03-10 23:22] LABS: Hematocrit 19.9 % (39.6-49.0)
[2020-03-11] MEDS ORDERED: LIDOCAINE VISCOUS 2% SOLN 15 ML UDC ONE (02:26)
[2020-03-11 03:49] LABS: Urine Blood NEGATIVE (NEG); Urine Glucose NEGATIVE (NEG); Urine Protein NEGATIVE (NEG); Urine Specific Gravity 1.015 (1.005-1.030)
[2020-03-11] MEDS ORDERED: NA CHLORIDE 0.9% 250 ML ONE (03:55)
[2020-03-11 04:56] VITALS: TEMP 99
[2020-03-11 05:09] VITALS: BP 150/55; O2SAT 98
--- NOTE | 2020-03-11 12:18 | EKG ---
Test Date: 2020-03-10 Test Time: 16:04:26 Bi Consultant: ACE MEASUREMENT RESULTS: Intervals: Rate: 91 VA: QRSD: 102 QT: 344 QTc: 423 [place]: P: VA: QRS: -33 T: 173 INTERPRETIVE STATEMENTS: Undetermined rhythm Left axis deviation Incomplete right bundle branch block Anterior infarct, age undetermined Abnormal ECG Compared to ECG 12/17/2019 07:59:00 Incomplete right bundle-branch block now present Atrial fibrillation no longer present Ventricular premature complex(es) no longer present Myocardial infarct finding still present Electronically Signed On 03-11-20 12:15:24 FOOD SERVICE LEAD by Jose Guadalupe Cohen
--- NOTE | 2020-03-11 13:15 | RAD REPORT ---
EXAM DESCRIPTION: CT ABDOMEN AND PELVIS WITHOUT CONTRAST CLINICAL HISTORY: Arf COMPARISON: 05/30/2017 TECHNIQUE: CT of the abdomen and pelvis without IV contrast. Evaluation of the solid organs and vasc ulature is suboptimal due to lack of IV contrast. FINDINGS: Lung Bases: Small bilateral pleural effusions, greater on the right than the left with lik radha bibasilar compressive atelectasis. Cardiomegaly. Partial visualization of pacemaker leads. Dominguez ry artery atherosclerosis. Prior median sternotomy. Bones: Multilevel degenerative endplate spondylosis, disc height narrowing, and facet arthropathy thr oughout the visualized spine. Osteoarthritic change of the hips. Abdomen: Liver: The liver has normal size and density. Gallbladder: Prior cholecystectomy. Spleen, Pancreas, and Adrenal Glands: The spleen, pancreas, and adrenal glands are unremarkable. Kidneys: The kidneys have normal size without evidence of hydronephrosis. No obstructing ureteral ashley culi. Mild bilateral renal cortical atrophy. Vasculature: Aortoiliac atherosclerosis. IVC is unremarkable. Partial visualization of right femoral- popliteal bypass graft. Stomach: The stomach and duodenum have normal course. Other: No free intraperitoneal air. No free fluid or lymphadenopathy. Pelvis: Bladder: Mild wall thickening of the urinary bladder. Bowel: No dilated loops of large or small bowel. Scattered diverticula of the colon. Minimal cristin lic inflammatory change. Appendix: Normal appendix. Pelvis: Prostate is not enlarged. IMPRESSION: 1. Mild pericolic inflammatory change of the sigmoid colon with scattered diverticula. T hese findings may indicate mild acute uncomplicated diverticulitis. 2. Mild wall thickening of the urinary bladder. This could be seen with cystitis. 3. Small bilateral pleural effusions with bibasilar compressive atelectasis. 4. Cardiomegaly with coronary artery atherosclerosis. 5. Mild bilateral renal cortical atrophy. This exam was performed according to our departmental dose-optimization program, which includes autom ated exposure control, adjustment of the mA and/or kV according to patient size and/or use of iterati ve reconstruction technique. Electronically signed by: Rene Orozco 03/11/2020 2:44 AM LAW SECRETARY Due to temporary technical issues with the PACS/Fluency reporting system, reports are being signed by the in house radiologist without review as a courtesy to ensure prompt reporting. The interpreting r adiologist is fully responsible for the content of the report Due to temporary technical issues with the PACS/Fluency reporting system, reports are being signed by the in house radiologist without review as a courtesy to ensure prompt reporting. The interpreting r adiologist is fully responsible for the content of the report.
== END 2020-03-11 04:50 | disposition short-term general hospital (02) ==
LOC: ER 14:02
PROC: 30233N1 Transfusion of Nonautologous Red Blood Cells into Peripheral Vein, Percutaneous Approach (ICD-10-PCS; principal; 2020-03-11)
DX: K92.2 Gastrointestinal hemorrhage, unspecified (principal); D63.1 Anemia in chronic kidney disease; E11.22 Type 2 diabetes mellitus with diabetic chronic kidney disease; I12.9 Hypertensive chronic kidney disease with stage 1 through stage 4 chronic kidney disease, or unspecified chronic kidney disease; N18.9 Chronic kidney disease, unspecified; N17.9 Acute kidney failure, unspecified; K51.511 Left sided colitis with rectal bleeding; I51.7 Cardiomegaly; J91.8 Pleural effusion in other conditions classified elsewhere; I48.91 Unspecified atrial fibrillation; Z20.822 Contact with and (suspected) exposure to COVID-19; Z95.0 Presence of cardiac pacemaker; Z79.82 Long term (current) use of aspirin
CPT/HCPCS: 96365; 93005; 85025 ×2; 80048; 36415; 86900; 83735; 86850; 85610; 86901; 80076; 85730; 82272; 85018; 85014; 81003; 84484; 83880; 76377; 74176; 71045; 51702; 96375; 99285; 96366; 36430; U0003; J1940; C9113; P9016 ×3; J7050 ×2

== ENCOUNTER 2020-03-16 07:24 | Inpatient (IN) | payer OTHER, BC ==
--- OUTSIDE RECORDS SUMMARY | 2020-03-16 07:26 | XMS REPORT | Clinical Summary ---
:1935 Author Organization [facility] Address [address] [place] [address] Care Team Providers Name Role Phone Joe [...] Encounters Date Type Specialty Care Team Description 03/10/2020 Telephone Gastroenterology Monica German MD GI Bleeding 03/10/2020 Hospital Encounter after 03/16/2019 Social History Tobacco Use Types Packs/Day Years Used Date Never Smoker Smokeless Tobacco: Never Used Alcohol Use Drinks/Week oz/Week Comments Yes 21 Shots of liquor 21.0 Sex Assigned at Date Recorded Not on file Last Filed Vital Signs Not on file Plan of Treatment Health Maintenance Due Date Last Done Comments DTAP/TDAP/TD VACCINES (1 - Tdap) 1944 DIABETIC EYE EXAM 1947 DIABETIC FOOT EXAM 1945 URINE MICROALBUMIN 1945 MEDICARE ANNUAL WELLNESS (YEAR 2 03/10/2003 or FIRST YEAR if no IPPE) HEMOGLOBIN A1C 12/02/2017 06/02/2017, 05/31/2017, 02/07/2011, Additional history exists INFLUENZA VACCINE (#1) 2019 12/25/2008, 12/12/2007 DEPRESSION SCREENING (12+) 02/07/2020 PNEUMOCOCCAL 65+ YRS Completed 06/21/2010 Results Not on fileafter 03/16/2019 Insurance Payer Benefit Plan Subscriber ID Effective Phone Address Typ e / Group Dates MEDICARE MEDICARE A B [id number] 2002-Freeman andino nt BLUE BCBS PPO POS [id number] 2015-Freeman [phone] [address] PPO CROSS/BLUE EPO CHOICE nt 12 [id number] [place] [address] Guarantor Name Account Type Relation to Date of Phone Billing Patient Address Javan Burrows Personal/Family Self 1935 [address] (Home) [place] [address] Advance Directives For more information, please contact: [phone] Code Status Date Activated Date Inactivated Comments Full Code 05/30/2017 10:08 PM 06/19/2017 7:55 PM This code status was determined by: Patient
--- OUTSIDE RECORDS SUMMARY | 2020-03-16 07:26 | XMS REPORT | Clinical Summary ---
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
--- OUTSIDE RECORDS SUMMARY | 2020-03-16 07:31 | XMS REPORT | Continuity of Care Document ---
:1935 Author Organization [facility] t Address [address] [place] [address] Care Team Providers Name Role Phone Asked, Pcp Primary Care Physician Unavailable Galina Rios MD Attending Clinician Sudha German MD Attending Clinician SHARIFA HART Attending Clinician Unavailable Galina Rios MD Admitting Clinician SHARIFA HART Admitting Clinician Unavailable Payers Payer Name Policy Type Policy Effective Date Expiration Date Sour ce Number MEDICAREMEDICARE A [id number] 2002 ABHISHEK Daley [id number] 00:00:00 - Medical [facility] Center BLUE CROSS/BLUE [id number] [facility] ukjesus manuel SHIELDBCBS PPO POS EPO 9 00:00:00 - Medical [phone] [address], [place] [address]CDG Problems Condition Condition Condition Status Onset Resolution Last Treating Co mments Source Name Details Category Date Date Treatment Clinician Date Disorienta Disorienta Disease Active [facility] A-fib A-fib Disease Active [facility] Medical 00 [place] Hypertensi Hypertensi Disease Active [facility] on on 25 [facility] - 00:[facility]: Medical 00 [place] Hypernatre Hypernatre Disease Active [facility] nirav nirav -25 [facility] - 00:[facility]: Medical 00 [place] Acute Acute Disease Active [facility] blood loss blood loss -25 [place] [facility] - anemia anemia 00:00: Medical 00 [place] 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 00:00: Medica l with with 00 Center complicati complicati on, on, without without long-term long-term current current use of use of insulin insulin Leukocytos Leukocytos Disease Active [facility] is is 25 [facility] - 00:[facility]: Medical 00 [place] Agitation Agitation Disease Active [facility] 25 [facility] 00:[facility] Medical 00 [place] Acute Acute Disease Active [facility] encephalop encephalop -25 [place] [facility] - athy athy 00:00: Medical 00 [place] Acute Acute Disease Active [facility] kidney kidney 25 [facility] - injury injury 00:00: Medical 00 [place] GIB GIB Disease Active [facility] (gastroint (gastroint 24 [place]es - estinal estinal 00:00: Medical bleeding) bleeding) 00 Cent er Cough Cough Disease Active [place] 3-23 [facility]i 00:00: st 00 Rash Rash Disease Active 2015-02 [place] Methodi 00:00: st Hypertensi Hypertensi Disease Active 2015-02 [place] Methodi 00:00: st 00 Ischemia Ischemia Disease Active 2015-02 [place] of toe of toe Methodi 00:00: st 00 Lumbosacra Lumbosacra Disease Active 2015-02 H jeromy l l Methodi radiculiti radiculiti 00:00: st s s 00 Open wound Open wound Disease Active 2015-02 [place] Methodi 00:[facility]: st 00 Peripheral Peripheral Disease Active 2015-02 H jeromy nerve nerve Methodi disease disease 00:00: st 00 Seizure Seizure Disease Active 2015-02 [place] disorder disorder 2-29 Method i 00:00: st 00 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 0-12 Me thodi artery artery 00:00: st 00 Chronic Chronic Disease Active 2015-02 [place] ischemic ischemic 0-12 Method i heart heart 00:00: st disease disease 00 Chronic Chronic Disease Active 2015-02 [place] kidney kidney 0-12 [facility]i disease, disease, 00:00: st stage III stage III 00 (moderate) (moderate) Delayed Delayed Disease Active 2015-02 [place] surgical surgical 012 Method i wound wound 00:00: st healing healing 00 Edema of Edema of Disease Active 2015-02 [place] lower lower 0-12 [facility] extremity extremity 00:00: st 00 Vertigo Vertigo Disease Active 2015-02 [place] 012 Methodi 00:00: st 00 Knee pain Knee pain Disease Active 2015-02 [facility] ston 0-12 Methodi 00:00: st 00 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 012 Method i 00:00: st 00 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 0-12 [facility] syndrome syndrome 00:00: st with pain with pain 00 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 00:00: st 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 Dizziness Dizziness Disease Active [facility] ston and and 7-16 [facility] giddiness giddiness 00:00: st 00 Back pain Back pain Disease Active Keith ston 7-05 Methodi 00:00: st 00 Peripheral Peripheral Disease Active Overview : [place] vascular vascular 5-15 S/P Method i disease disease 00:00: stents st 00 Coronary Coronary Disease Active Overview: Steve guzman arterioscl arterioscl 1-01 S/P CABG [facility] erosis erosis 00:00: x 3 st 00 Gout Gout Disease Active [place] 2-20 Methodi 00:00: st 00 Chronic Chronic Disease Active [place] coronary coronary 02-06 Method i artery artery 00:00: st disease disease 00 Peripheral Peripheral Disease Active [place] arterial arterial 1 Method i occlusive occlusive 00:00: st disease disease 00 Diabetes Diabetes Disease Active [place] mellitus mellitus 02 Method i 00:00: st 00 Essential Essential Disease Active [facility] ston hypertensi hypertensi 06-07 Me [place] on on 00:00: st 00 Multiple-t Multiple-t Disease Active Kalyan munoze 06-07 [facility] hyperlipid hyperlipid 00:00: st emia emia 00 Pneumonia Pneumonia Disease Active Keith ston 06-07 Methodi 00:00: st 00 Allergies, Adverse Reactions, Alerts This patient has no known allergies or adverse reactions. Family History Family Member Diagnosis Comments Start Date Stop Date Source Natural brother Thyroid cancer [place] Natural father Coronary artery [place]rian disease Natural mother Coronary artery [place]rian disease Other Diabetes [facility] Method ist Other Heart disease [place] Met hodist Other Hypertension [place] Meth odist Social History Social Habit Start Date Stop Date Quantity Comments Source History of Cigarette Smoker [facility] tobacco use Sex Assigned At [facility] Tobacco use and 2017-05-31 2017-05-31 Never used [facility] kes - exposure 00:00:00 00:00:00 [facility] Alcohol intake 2017-05-31 2017-05-31 [facility]:00 of [facility] (finding) Alcohol Comment 2015-11-18 2015-11-18 moderate- 2 [facility] 00:00:00 00:00:00 drinks weekly Smoking Status Start Date Stop Date Source Never smoker [facility] Former smoker 2016-02-04 00:00:00 2016-02-04 00:00:00 [facility] Medications Ordered Filled Start Stop Current Ordering [...] MG tablet 00:00: daily. Medica l 00 Center metFORMIN Yes TAKE BY [place] (GLUCOPHAGE 3-26 MOUTH 1/2 Met hodi [...] MG tablet 17:06: daily. st 20 furosemide Yes 40mg Q.5D Take 40 mg H [...] Abbi inject [address] FlexTouch FlexTouch [place] units [facility] - [facility] Atorvastati Atorvastati Yes Abbi TAKE [address] [facility] n Calcium n Calcium [place] TABLET BY [facility] - MOUTH Memoria DAILY l [facility] Clinics Allopurinol Allopurinol Yes Abbi [address] [facility] Glimepiride Glimepiride Yes Abbi [address] [place] with [facility]ukes - breakfast Memoria or the l first main Outpati meal of ent the day Clinics Potassium Potassium Yes Abbi [address] Chloride Chloride [place] with food L [facility]kes - Memoria l [facility] Lasix Lasix Yes Abbi [address] [place] [facility] Tamsulosin Tamsulosin Yes Abbi [address] HCl HCl [place] [facility] Tamsulosin Tamsulosin Yes Abbi [address] HCl HCl [place] Once a day [facility] - Orally 90 Memoria days l [facility]ics BD BD Yes Abbi [address] Ultra-Fine Ultra-Fine [place] with [place] kes - Milla Pen Milla Pen tresiba Walter cat [place] l [facility]ics Carvedilol Carvedilol Yes Abbi not [facility] defined [facility] Aspirin Aspirin Yes Abbi [address] [facility]ruff [facility] Magnesium Magnesium Yes Abbi [address] Oxide Oxide [place] as needed [facility] Vitamin B Vitamin B Yes Abbi [address] Complex Complex [place] [facility] Immunizations Ordered Immunization Filled Immunization Date Status Commen ts Source Name Name Pneumococcal 2010-06-21 Completed [place] Polysaccharide 00:00:00 [place] Influenza Trivalent 2008-12-25 Completed [place] 00:00:00 [place] Influenza Trivalent 2007-12-12 Completed [place] 00:00:00 [place] Procedures This patient has no known procedures. Plan of Care Planned Activity Planned Date Details Comments Source Future Scheduled 2020-02-[address] [facility] - Test 00:00:00 (12+) [code = [facility] DEPRESSION SCREENING (12+)] Future Scheduled 2019-10-[address] [facility] - Test 00:00:00 (#1) [code = [facility] INFLUENZA VACCINE (#1)] Future Scheduled 2019-09-07 INFLUENZA VACCINE [place] Test 00:00:00 [code = INFLUENZA VACCINE] Future Scheduled 2017-12-[address] L[facility]e kes - Test 00:00:00 [facility] (procedure) [code = 83261010] Future Scheduled 2003-03-[address] [facility] - Test 00:00:00 WELLNESS (YEAR 2 or Medical Center FIRST YEAR if no IPPE) [code = MEDICARE ANNUAL WELLNESS (YEAR 2 or FIRST YEAR if no IPPE)] Future Scheduled 1987 SHINGLES VACCINES [place] Test 00:00:00 (#1) [code = SHINGLES VACCINES (#1)] Future Scheduled 1953 COVID-19 VACCINE (1 [place] Test 00:00:00 of 2) [code = COVID-19 VACCINE (1 of 2)] Future Scheduled 1947 DIABETES: RETINAL EYE [place] Test 00:00:00 EXAM [code = DIABETES: RETINAL EYE EXAM] Future Scheduled 1947 DIABETIC FOOT EXAM [place] [facility] Test 00:00:00 [code = DIABETIC FOOT EXAM] Future Scheduled 1947 DIABETIC EYE EXAM [facility] Test 00:00:00 [code = DIABETIC EYE Medical Center EXAM] Future Scheduled [address] [facility] - Test 00:00:00 examination Medical Center (regime/therapy) [code = 800424864] Future Scheduled 1947 Urine screening for [facility] Test 00:00:00 protein (procedure) Medical Center [code = 082734202] Future Scheduled 1944 DTAP/TDAP/TD VACCINES [facility] Test 00:00:00 (1 - Tdap) [code = Medical C enter DTAP/TDAP/TD VACCINES (1 - Tdap)] Encounters Start End Encounter Admission Attending Care Care Encounter Source Date/Time Date/Time Type Type Clinicians Facility Department ID 2020-03-11 2020-03-15 [facility] Jenny Rios [id number] 06:05:00 13:27:00 Encounter Marito Redding [id number] [facility] [id number] 2020-03-10 2020[facility]03-10 [id number] 2020-03-04 2020-03-04 Outpatient [facility]LMLC [facility] [id number] [facility] 2020-02-12 2020-02-12 Outpatient STLMLC [facility] [id number] [facility] 2020-02-12 2020-02-12 Outpatient [facility]LMLC [facility] [id number] [facility] 2020-02-05 2020-02-05 Outpatient [facility]LMLC [facility] [id number] [facility] 2019-12-25 2019-12-25 Outpatient [facility]LMLC [facility] [id number] [facility] 2019-11-27 2019-11-27 Outpatient STLMLC [facility] [id number] [facility] 2019-11-20 2019-11-20 Outpatient [facility]LMLC [facility] [id number] [facility] 2019-11-13 2019-11-13 Outpatient [facility]LMLC [facility] [id number] [facility] 2019-10-30 2019-10-30 Outpatient STLMLC [facility]ML[facility] [id number] [facility] 2019-08-13 2019-08-13 [facility] [id number] 13:20:00 13:20:[address] [place] - Road [facility] l Medicine Outpati ent Clinics 2019-08-12 2019-08-12 [facility] [id number] 12:03:00 12:03:00 t [employer] [place] s - Drive [facility] l Medicine Outpati ent Clinics 2019-07-23 2019-07-23 [facility] [id number] 14:15:00 14:15:00 [place] [address] [place] [address] [place] - Drive [facility] Medicine l Medicine Outpati ent Clinics 2019-07-17 2019-07-17 [facility] [id number] 11:45:00 11:45:00 [place] [address] [place] [address] [place] - Drive [facility] Medicine l Medicine Outpati ent Clinics 2019-07-15 2019-07-15 [facility] [id number] 14:26:00 14:26:00 t [facility] [employer] s - Road [facility] Medicine l Medicine Outpati ent Clinics 2019-05-20 2019-05-20 [facility] [id number] 11:56:00 11:56:00 [place] [employer] s - Drive [facility] l Medicine Outpati ent Clinics 2019-05-17 2019-05-17 [facility] [id number] 15:48:00 15:48:00 [place] [employer] s - Drive [facility] l Medicine Outpati ent Clinics 2019-02-27 2019-02-27 [facility] [id number] 13:15:00 13:15:00 [place] [employer] [place] s - Drive [facility] Medicine l Medicine Outpati ent Clinics 2018-12-26 2018-12-26 [facility] [id number] 15:45:00 15:45:00 [place] [employer] s - Drive [facility] l Medicine Outpati ent Clinics 2018-11-28 2018-11-28 [facility] [id number] 15:00:00 15:00:00 [place] [employer] Luke s - Drive [facility] Medicine l Medicine Outpati ent Clinics 2018-10-17 2018-10-17 [facility] [id number] 15:38:00 15:38:00 [place] [employer] s - Drive [facility] Medicine l Medicine Outpati ent Clinics 2018-10-17 2018-10-17 [facility] [id number] 15:15:00 15:15:00 [place] [employer] [place] s - Drive [facility] Medicine l Medicine Outpati ent Clinics 2018-10-02 2018-10-02 [facility] [id number] 11:25:00 11:25:00 t [employer] [place] [facility] ent Clinics 2018-08-08 2018-08-08 Outpatient Vineet Oakley [id number] 10:25:00 10:25:00 t Specialty/U [place] kes - Specialty rology Memori a /Urology Clinic l Clinic [facility] Clinics 2018-06-11 2018-06-11 Outpatient Vineet Oakley [id number] 11:57:00 11:57:00 t Specialty/U [place] kes - Specialty rology Memori a /Urology Clinic l Clinic [facility] ent Clinics 2018-05-14 2018-05-14 Outpatient Vineet Oakley [id number] 10:30:00 10:30:00 t [employer] [facility] ent Clinics Results Test Description Test Time Test Comments Results Result Sour e Comments U/S, ABDOMINAL, 2017-06-29 Abdomen limited Addendum LIMITED 05:54:00 area? Add comment BeginsREPORT if clarification is STATUS:A PATIENT needed.->LiverReaso ID: [id number] n for exam:->r/o Indication: Right cirrhosis upper quadrant pain. Signed: Marci Levine MDReport Verified Date/Time: 06/29/2017 05:54:07 Reading Location: [facility] C013Y CT Body Reading RoomAddendum EndsFINAL REPORT [...] MDReport Verified Date/Time: 06/04/2017 06:44:53 Reading Location: [facility] C013X Ortho Consult Reading Room -GLUCOSE METER 2017-06-19 16:56:00 Test Item Value Reference Range Interpretation Comme nts POC-GLUCOSE METER (BEAKER) (test 202 mg/dL 70-110 H TESTED AT [facility] [address] [facility] 1538[facility] [id number] 0 POCT-GLUCOSE [id number] 12:23:00 Test Item Value Reference Range Interpretation Comments POC-GLUCOSE METER 223 mg/dL 70-110 H TESTED AT [facility] 6720 (BEAKER) (test code = MIKY Marte [facility] 1538) [id number] POCT-GLUCOSE [id number] 08:07:00 Test Item Value Reference Range Interpretation Comments POC-GLUCOSE METER 122 mg/dL 70-110 H TESTED AT [facility] 6720 (BEAKER) (test code = MIKY Marte [facility] 1538) [id number] 07:19:00 Test Item Value Reference Range Interpretation Comments MAGNESIUM (BEAKER) (test code = 1.4 mg/dL 1.6-2.6 L 627) [id number] 07:19:00 Test Item Value Reference Range Interpretation Comments PHOSPHORUS (BEAKER) (test code = 2.7 mg/dL 2.3-4.7 604) COMPREHENSIVE METABOLIC [id number] 07:18:00 Test Item Value Reference Range Interpretation [...] PATIEN TS. CBC W/PLT COUNT & AUTO [id number] 00:06:00 Test Item Value Reference Range Interpretation [...] PERCENT (BEAKER) (test code = 2801) POCT-GLUCOSE [id number] 20:29:00 Test Item Value Reference Range Interpretation Comments POC-GLUCOSE METER 126 mg/dL 70-110 H TESTED AT [place] [address] ([facility]) (test code = [facility] 1538) [id number] POCT-GLUCOSE [id number] 17:46:00 Test Item Value Reference Range Interpretation Comments POC-GLUCOSE METER 98 mg/dL 70-110 TESTED AT [place] [address] ([facility]) (test code = [facility] [address] 1538) POCT-GLUCOSE [id number] 13:26:00 Test Item Value Reference Range Interpretation Comments POC-GLUCOSE METER 118 mg/dL 70-110 H TESTED AT [place] [address] ([facility]) (test code = [facility] 1538) [id number] POCT-GLUCOSE [id number] 08:28:00 Test Item Value Reference Range Interpretation Comments POC-GLUCOSE METER 137 mg/dL 70-110 H TESTED AT [place] [address] ([facility]) (test code = [facility] 1538) [id number] 05:31:00 Test Item Value Reference Range Interpretation Comments PHOSPHORUS (BEAKER) (test code = 3.1 mg/dL 2.3-4.7 604) [id number] 05:31:00 Test Item Value Reference Range Interpretation Comments MAGNESIUM (BEAKER) (test code = 1.3 mg/dL 1.6-2.6 L 627) BASIC METABOLIC [id number] 05:31:00 Test Item Value Reference Range Interpretation [...] PATIEN TS. CBC W/PLT COUNT & AUTO [id number] 05:13:00 Test Item Value Reference Range Interpretation [...] PERCENT (BEAKER) (test code = 2801) POCT-GLUCOSE [id number] 21:05:00 Test Item Value Reference Range Interpretation Comments POC-GLUCOSE METER 199 mg/dL 70-110 H TESTED AT [place] [address] ([facility]) (test code = MIKY KAN MD 1538) [id number] POCT-GLUCOSE [id number] 18:55:00 Test Item Value Reference Range Interpretation Comments POC-GLUCOSE METER 128 mg/dL 70-110 H TESTED AT [place] [address] ([facility]) (test code = MIKY KAN MD 1538) [id number] POCT-GLUCOSE [id number] 11:34:00 Test Item Value Reference Range Interpretation Comments POC-GLUCOSE METER 144 mg/dL 70-110 H TESTED AT [place] [address] ([facility]) (test code = MIKY KAN MD 1538) [id number] POCT-GLUCOSE [id number] 07:58:00 Test Item Value Reference Range Interpretation Comments POC-GLUCOSE METER 93 mg/dL 70-110 TESTED AT [facility] 6720 (BEAKER) (test code = [place] [address] 1538) [id number] 05:23:00 Test Item Value Reference Range Interpretation Comments PHOSPHORUS (BEAKER) (test code = 2.9 mg/dL 2.3-4.7 604) [id number] 05:23:00 Test Item Value Reference Range Interpretation Comments MAGNESIUM (BEAKER) (test code = 1.6 mg/dL 1.6-2.6 627) CBC W/PLT COUNT & AUTO [id number] 05:03:00 Test Item Value Reference Range Interpretation [...] PERCENT (BEAKER) (test code = 2801) POCT-GLUCOSE [id number] 22:10:00 Test Item Value Reference Range Interpretation Comments POC-GLUCOSE METER 100 mg/dL 70-110 TESTED AT [place] [address] ([facility]) (test code = [facility] 1538) [address]252 POCT-GLUCOSE [id number] 20:51:00 Test Item Value Reference Range Interpretation Comments POC-GLUCOSE METER 195 mg/dL 70-110 H TESTED AT [place] [address] ([facility]) (test code = [facility] 1538) [id number] POCT-GLUCOSE [id number] 12:49:00 Test Item Value Reference Range Interpretation Comments POC-GLUCOSE METER 183 mg/dL 70-110 H TESTED AT [place] [address] ([facility]) (test code = [facility] 1538) 42047 POCT-GLUCOSE [id number] 08:20:00 Test Item Value Reference Range Interpretation Comments POC-GLUCOSE METER 95 mg/dL 70-110 TESTED AT [place] [address] ([facility]) (test code = [facility] 169[address] 1538) [id number] 07:00:00 Test Item Value Reference Range Interpretation Comments MAGNESIUM (BEAKER) (test code = 1.0 mg/dL 1.6-2.6 LL 627) [id number] 06:56:00 Test Item Value Reference Range Interpretation Comments PHOSPHORUS (BEAKER) (test code = 2.8 mg/dL 2.3-4.7 604) BASIC METABOLIC [id number] 06:56:00 Test Item Value Reference Range Interpretation [...] PATIEN TS. CBC W/PLT COUNT & AUTO [id number] 06:16:00 Test Item Value Reference Range Interpretation [...] PERCENT (BEAKER) (test code = 2801) POCT-GLUCOSE [id number] 21:45:00 Test Item Value Reference Range Interpretation Comments POC-GLUCOSE METER 174 mg/dL 70-110 H TESTED AT [place] [address] ([facility]) (test code = MIKY KAN MD 1538) 15022 POCT-GLUCOSE [id number] 17:21:00 Test Item Value Reference Range Interpretation Comments POC-GLUCOSE METER 212 mg/dL 70-110 H TESTED AT [place] [address] (BEAKER) (test code = MIKY Marte [facility] 1538) [id number] POCT-GLUCOSE [id number] 08:21:00 Test Item Value Reference Range Interpretation Comments POC-GLUCOSE METER 107 mg/dL 70-110 TESTED AT [place] [address] (BEAKER) (test code = MIKY Marte [facility] 1538) 48473 [id number] 03:39:00 Test Item Value Reference Range Interpretation Comments PHOSPHORUS (BEAKER) (test code = 2.8 mg/dL 2.3-4.7 604) [id number] 03:39:00 Test Item Value Reference Range Interpretation Comments MAGNESIUM (BEAKER) (test code = 1.4 mg/dL 1.6-2.6 L 627) COMPREHENSIVE METABOLIC [id number] 03:39:00 Test Item Value Reference Range Interpretation [...] NOT APPLICABLE FOR DIALYSIS PATIEN TS. PROTHROMBIN [id number] 03:27:00 Test Item Value Reference Range Interpretation [...] 417) IMMATURE GRANULOCYTES-RELATIVE 0 % 0-1 PERCENT ([facility]) (test code = 2801) POCT-GLUCOSE [id number] 21:20:00 Test Item Value Reference Range Interpretation Comments POC-GLUCOSE METER 101 mg/dL 70-110 TESTED AT [place] [address] ([facility]) (test code = [facility] 1538) [id number] BLOOD [id number] 18:00:00 Test Item Value Reference Range Interpretation Comments CULTURE ([facility]) (test No growth in 5 days code = 1095) POCT-GLUCOSE [id number] 17:25:00 Test Item Value Reference Range Interpretation Comments POC-GLUCOSE METER 273 mg/dL 70-110 H TESTED AT [place] [address] ([facility]) (test code = [facility] 1538) [id number] POCT-GLUCOSE [id number] 13:32:00 Test Item Value Reference Range Interpretation Comments POC-GLUCOSE METER 247 mg/dL 70-110 H TESTED AT [place] [address] ([facility]) (test code = [facility] 1538) 21198 CBC W/PLT COUNT & AUTO [id number] 12:21:00 Test Item Value Reference Range Interpretation Comments WHITE BLOOD CELL COUNT (BEAKER) 6.0 K/ L 3.5-10.5 (test code = 775) RED BLOOD CELL COUNT (BEAKER) 2.60 M/ L 4.63-6.08 L (test code = 761) HEMOGLOBIN (BEAKER) (test code = 7.5 GM/DL 13.7-17.5 L 410) HEMATOCRIT (BEAKER) (test code = 24.2 % 40.1-51.0 L 411) MEAN CORPUSCULAR VOLUME (AKER) 93.1 fL 79.0-92.2 H (test code = [...] 0-0 (BEAKER) (test code = 413) POCT-GLUCOSE [id number] 08:05:00 Test Item Value Reference Range Interpretation Comments POC-GLUCOSE METER 165 mg/dL 70-110 H TESTED AT [facility] 6720 (BEAKER) (test code = MIKY [place] 1538) [address] [id number] 06:32:00 Test Item Value Reference Range Interpretation Comments MAGNESIUM (BEAKER) (test code = 1.0 mg/dL 1.6-2.6 LL 627) [id number] 06:31:00 Test Item Value Reference Range Interpretation Comments PHOSPHORUS (BEAKER) (test code = 2.9 mg/dL 2.3-4.7 604) BASIC METABOLIC [id number] 06:31:00 Test Item Value Reference Range Interpretation [...] NOT APPLICABLE FOR DIALYSIS PATIEN TS. POCT-GLUCOSE [id number] 21:42:00 Test Item Value Reference Range Interpretation Comments POC-GLUCOSE METER 139 mg/dL 70-110 H TESTED AT [facility] 6720 (BEAKER) (test code = [facility] 1538) [address]56 POCT-GLUCOSE [id number] 17:39:00 Test Item Value Reference Range Interpretation Comments POC-GLUCOSE METER 225 mg/dL 70-110 H TESTED AT [place] [address] ([facility]) (test code = [facility] 1538) [address] POCT-GLUCOSE [id number] 12:02:00 Test Item Value Reference Range Interpretation Comments POC-GLUCOSE METER 153 mg/dL 70-110 H TESTED AT [place] [address] ([facility]) (test code = [facility] 1538) 8[address] POCT-GLUCOSE [id number] 09:32:00 Test Item Value Reference Range Interpretation Comments POC-GLUCOSE METER 82 mg/dL 70-110 TESTED AT [place] [address] ([facility]) (test code = [facility] [address] 1538) [id number] 06:51:00 Test Item Value Reference Range Interpretation Comments PHOSPHORUS (BEAKER) (test code = 2.6 mg/dL 2.3-4.7 604) [id number] 06:51:00 Test Item Value Reference Range Interpretation Comments MAGNESIUM (BEAKER) (test code = 1.4 mg/dL 1.6-2.6 L 627) BASIC METABOLIC [id number] 06:51:00 Test Item Value Reference Range Interpretation [...] PATIEN TS. CBC W/PLT COUNT & AUTO [id number] 05:59:00 Test Item Value Reference Range Interpretation [...] PERCENT (AKER) (test code = 2801) POCT-GLUCOSE [id number] 22:42:00 Test Item Value Reference Range Interpretation Comments POC-GLUCOSE METER 143 mg/dL 70-110 H TESTED AT [place] [address] ([facility]) (test [facility] = [facility] 1538) [address] POCT-GLUCOSE [id number] 17:31:00 Test Item Value Reference Range Interpretation Comments POC-GLUCOSE METER 167 mg/dL 70-110 H TESTED AT [place] [address] ([facility]) (test code = [facility] 1538) [address] POCT-GLUCOSE [id number] 12:29:00 Test Item Value Reference Range Interpretation Comments POC-GLUCOSE METER 196 mg/dL 70-110 H TESTED AT [place] [address] ([facility]) (test code = [facility] 1538) [address] POCT-GLUCOSE [id number] 07:54:00 Test Item Value Reference Range Interpretation Comments POC-GLUCOSE METER 138 mg/dL 70-110 H TESTED AT [place] [address] ([facility]) (test code = [facility] 1538) [address] [id number] 06:13:00 Test Item Value Reference Range Interpretation Comments PHOSPHORUS (BEAKER) (test code = 3.2 mg/dL 2.3-4.7 604) [id number] 06:13:00 Test Item Value Reference Range Interpretation Comments MAGNESIUM (BEAKER) (test code = 1.3 mg/dL 1.6-2.6 L 627) CBC W/PLT COUNT & AUTO [id number] 05:50:00 Test Item Value Reference Range Interpretation [...] PERCENT (BEAKER) (test code = 2801) POCT-GLUCOSE [id number] 21:11:00 Test Item Value Reference Range Interpretation Comments POC-GLUCOSE METER 160 mg/dL 70-110 H TESTED AT [facility] 6720 (BEAKER) (test code = MIKY Marte [place] 1538) [address] BLOOD [id number] 18:00:00 Test Item Value Reference Range Interpretation Comments CULTURE (BEAKER) (test No growth in 5 days code = 1095) POCT-GLUCOSE [id number] 17:54:00 Test Item Value Reference Range Interpretation Comments POC-GLUCOSE METER 163 mg/dL 70-110 H TESTED AT [facility] 6720 (BEAKER) (test code = MIKY Marte [place] 1538) [address] POCT-GLUCOSE [id number] 12:41:00 Test Item Value Reference Range Interpretation Comments POC-GLUCOSE METER 133 mg/dL 70-110 H TESTED AT [place] [address] ([facility]) (test code = MIKY Marte [place] 1538) [address] BLOOD [id number] 11:00:00 Test Item Value Reference Range Interpretation Comments CULTURE (BEAKER) (test No growth in 5 days code = 1095) POCT-GLUCOSE [id number] 07:57:00 Test Item Value Reference Range Interpretation Comments POC-GLUCOSE METER 132 mg/dL 70-110 H TESTED AT [place] [address] ([facility]) (test code = MIKY Marte [place] 1538) [address] VANCOMYCIN LEVEL, [id number] 07:30:00 Test Item Value Reference Range Interpretation Comments VANCOMYCIN RANDOM (BEAKER) (test 31.8 ug/mL code = 523) Reference Range: No [id number] 07:09:00 Test Item Value Reference Range Interpretation Comments PHOSPHORUS (BEAKER) (test code = 3.5 mg/dL 2.3-4.7 604) [id number] 07:09:00 Test Item Value Reference Range Interpretation Comments MAGNESIUM (BEAKER) (test code = 1.4 mg/dL 1.6-2.6 L 627) BASIC METABOLIC [id number] 07:09:00 Test Item Value Reference Range Interpretation [...] PATIEN TS. CBC W/PLT COUNT & AUTO [id number] 06:27:00 Test Item Value Reference Range Interpretation [...] PERCENT (BEAKER) (test code = 2801) POCT-GLUCOSE [id number] 21:46:00 Test Item Value Reference Range Interpretation Comments POC-GLUCOSE METER 262 mg/dL 70-110 H TESTED AT [place] [address] ([facility]) (test code = MIKY [place] 1538) [address]77 POCT-GLUCOSE [id number] 17:44:00 Test Item Value Reference Range Interpretation Comments POC-GLUCOSE METER 175 mg/dL 70-110 H TESTED AT [place] [address] ([facility]) (test code = MIKY KAN [place] 1538) 25791 POCT-GLUCOSE [id number] 12:25:00 Test Item Value Reference Range Interpretation Comments POC-GLUCOSE METER 173 mg/dL 70-110 H TESTED AT [place] [address] ([facility]) (test code = MIKY Marte [facility] 1538) 13585 BLOOD [id number] 12:00:00 Test Item Value Reference Range Interpretation Comments CULTURE ([facility]) (test No growth in 5 days code = 1095) POCT-GLUCOSE [id number] 08:52:00 Test Item Value Reference Range Interpretation Comments POC-GLUCOSE METER 183 mg/dL 70-110 H TESTED AT [place] [address] (BEAKER) (test code = MIKY KAN [place] 1538) [address] [id number] 06:01:00 Test Item Value Reference Range Interpretation Comments PHOSPHORUS (BEAKER) (test code = 3.3 mg/dL 2.3-4.7 604) [id number] 06:01:00 Test Item Value Reference Range Interpretation Comments MAGNESIUM (BEAKER) (test code = 1.8 mg/dL 1.6-2.6 627) BASIC METABOLIC [id number] 06:01:00 Test Item Value Reference Range Interpretation [...] PATIEN TS. CBC W/PLT COUNT & AUTO [id number] 04:59:00 Test Item Value Reference Range Interpretation [...] PERCENT (BEAKER) (test code = 2801) POCT-GLUCOSE [id number] 21:51:00 Test Item Value Reference Range Interpretation Comments POC-GLUCOSE METER 203 mg/dL 70-110 H TESTED AT [facility] 6720 ([facility]) (test code = [facility] 1538) [address] POCT-GLUCOSE [id number] 17:35:00 Test Item Value Reference Range Interpretation Comments POC-GLUCOSE METER 218 mg/dL 70-110 H TESTED AT [facility] 6720 ([facility]) (test code = [facility] 1538) 39[address] SPUTUM CULTURE + GRAM [id number] 15:48:00 Test Item Value Reference Interpretation Comments Range CULTURE (BEAKER) METHICILLIN A <1+ Methici llin (test code [...] 0-5 epithelial (BEAKER) (test code cells = 313028) GRAM STAIN RESULT No organisms seen (BEAKER) (test code = 752907) <1+ Normal respiratory melanie presentPOCT-GLUCOSE [id number] 12:00:00 Test Item Value Reference Range Interpretation Comments POC-GLUCOSE METER 194 mg/dL 70-110 H TESTED AT [facility] 6720 ([facility]) (test code = [facility] 1538) [address]26 BLOOD [id number] 12:00:00 Test Item Value Reference Range Interpretation Comments CULTURE (BEAKER) (test No growth in 5 days code = 1095) BLOOD [id number] 12:00:00 Test Item Value Reference Range Interpretation Comments CULTURE (BEAKER) (test No growth in 5 days code = 1095) POCT-GLUCOSE [id number] 05:58:00 Test Item Value Reference Range Interpretation Comments POC-GLUCOSE METER 228 mg/dL 70-110 H TESTED AT [facility] 6720 ([facility]) (test code = [facility] 1538) [address] [id number] 04:42:00 Test Item Value Reference Range Interpretation Comments PHOSPHORUS (BEAKER) (test code = 3.1 mg/dL 2.3-4.7 604) [id number] 04:42:00 Test Item Value Reference Range Interpretation Comments MAGNESIUM (BEAKER) (test code = 1.9 mg/dL 1.6-2.6 627) BASIC METABOLIC [id number] 04:42:00 Test Item Value Reference Range Interpretation [...] PATIEN TS. CBC W/PLT COUNT & AUTO [id number] 04:27:00 Test Item Value Reference Range Interpretation [...] % 0-1 PERCENT (BEAKER) (test code = 2800) POCT-GLUCOSE [id number] 00:11:00 Test Item Value Reference Range Interpretation Comments POC-GLUCOSE METER 194 mg/dL 70-110 H TESTED AT [facility] 6720 (BEAKER) (test code = MIKY NAJERA 1538) [address] [id number] 20:46:00 Test Item Value Reference Range Interpretation Comments MAGNESIUM (BEAKER) (test code = 1.9 mg/dL 1.6-2.6 627) BASIC METABOLIC [id number] 20:46:00 Test Item Value Reference Range Interpretation [...] NOT APPLICABLE FOR DIALYSIS PATIEN TS. POCT-GLUCOSE [id number] 19:29:00 Test Item Value Reference Range Interpretation Comments POC-GLUCOSE METER 317 mg/dL 70-110 H TESTED AT [place] [address] ([facility]) (test code = [facility] [place] 1538) 24873 BLOOD GAS, [id number] 18:31:00 Test Item Value Reference Range Interpretation [...] 37.0 C code = 1818) From midlinePOCT-GLUCOSE [id number] 12:03:00 Test Item Value Reference Range Interpretation Comments POC-GLUCOSE METER 107 mg/dL 70-110 TESTED AT [place] [address] ([facility]) (test code = [facility] [place] 1538) [address] POCT-GLUCOSE [id number] 12:03:00 Test Item Value Reference Range Interpretation Comments POC-GLUCOSE METER 75 mg/dL 70-110 TESTED AT [place] [address] (BEAKER) (test code = MIKY Marte [facility] [address] 1538) [id number] 06:12:00 Test Item Value Reference Range Interpretation Comments FERRITIN (BEAKER) (test code = 361) 334 ng/mL 5-275 H VITAMIN B12 AND [id number] 06:12:00 Test Item Value Reference Range Interpretation Comments VITAMIN B12 (BEAKER) (test code = 508 pg/mL 213-816 774) FOLATE (BEAKER) (test code = 362) 16.5 ng/mL >=7.0 POCT-GLUCOSE [id number] 06:00:00 Test Item Value Reference Range Interpretation Comments POC-GLUCOSE METER 84 mg/dL 70-110 TESTED AT [facility] 6720 (BEAKER) (test code = [facility] [address] 1538) IRON, TIBC, % SAT. (WITHOUT FERRITIN)2017-06-08 05:42:00 Test Item Value Reference Range Interpretation Comments IRON (BEAKER) (test code = 547) 15 ug/dL 40-160 L TOTAL IRON BINDING CAPACITY 183 ug/dL 250-450 L (BEAKER) (test code = 769) IRON % SATURATION (2) (BEAKER) 8 % 20-55 L (test code = 2590) [id number] 05:42:00 Test Item Value Reference Range Interpretation Comments PHOSPHORUS (BEAKER) (test code = 2.8 mg/dL 2.3-4.7 604) [id number] 05:42:00 Test Item Value Reference Range Interpretation Comments MAGNESIUM (BEAKER) (test code = 1.6 mg/dL 1.6-2.6 627) BASIC METABOLIC [id number] 05:42:00 Test Item Value Reference Range Interpretation [...] PATIEN TS. CBC W/PLT COUNT & AUTO [id number] 05:25:00 Test Item Value Reference Range Interpretation [...] PERCENT (BEAKER) (test code = 2801) POCT-GLUCOSE [id number] 23:41:00 Test Item Value Reference Range Interpretation Comments POC-GLUCOSE METER 180 mg/dL 70-110 H TESTED AT [facility] 6720 ([facility]) (test code = MIKY [place] 1538) [address] RAD, ABDOMEN/KUB, 1 VIEW [id number] 22:29:00Reason for exam:->feeding tube placementFINAL REPORT Comparison: 06/07/2017 at 9:51 PM TECHNIQUE: Frontal image of the abdomen FINDINGS: Feeding tube has been repositioned. Tip now projects in the distal stomach. No other significant change. Signed: Kali Medina Verified Date/Time: 06/07/2017 22:29:27 Reading Location: [address] Consult Reading Room RAD, ABDOMEN/KUB, 1 VIEW 2017-06-07 22:16:00Reason for exam:->feeding tube placementFINAL REPORT Comparison: 06/03/2017 TECHNIQUE: Frontal image of the abdomen FINDINGS: Feeding tube has been advanced. Distal portion is turned back upon itself and the tip projects in the fundus. Bowel gas pattern is nonspecific. Signed: Kali Medinaort Verified Date/Time: 06/07/2017 22:16:52 Reading Location: [address] Consult Reading Room [facility] MET[facility] 2017-06-07 19:04:00 Test [...] NOT APPLICABLE FOR DIALYSIS PATIEN TS. POCT-GLUCOSE [id number] 18:24:00 Test Item Value Reference Range Interpretation Comments POC-GLUCOSE METER 198 mg/dL 70-110 H TESTED AT [place] [address] ([facility]) (test code = MIKY [place] 1538) [address] [id number] 17:53:00 Test Item Value Reference Range Interpretation Comments PROCALCITONIN (BEAKER) (test code = < ng/mL <0.05 3036) SEPSIS RISK (ng/mL)Low: 0.05-0.50Intermediate: 0.51-2.00High: >=2.01RETICULOCYTE [id number] 17:06:00 Test Item Value Reference Range Interpretation Comments RETICULOCYTE COUNT PCT (BEAKER) (test 2.7 % 0.5-1.8 H code = 575) POCT-GLUCOSE [id number] 13:07:00 Test Item Value Reference Range Interpretation Comments POC-GLUCOSE METER 240 mg/dL 70-110 H TESTED AT [facility] 6720 ([facility]) (test code = MIKY [place] 1538) [address] RAD, CHEST, 1 VIEW, NON [id number] 08:42:00Reason for exam:- >intubatedShould this be performed at the bedside?->YesFINAL REPORT Chest one view compared to June 06, 2017 Discussion: Left chest pacemaker, feeding tube, right IJ line in place. There is pulmonary congestion with subtle suspected airspace opacity left lung base all unchanged. No gross effusion or pneumothorax. Signed: Jerel Noguera Verified Date/Time: 06/07/2017 08:42:41 Reading Location: [facility] Radiology Reading Room TROPONIN [id number] 05:52:00 Test Item Value Reference Range Interpretation [...] acidosis, acute neurological disease, and persistent tachyarrhythmia.POCT-GLUCOSE [id number] 05:48:00 Test Item Value Reference Range Interpretation Comments POC-GLUCOSE METER 148 mg/dL 70-110 H TESTED AT [facility] 6720 (BEAKER) (test code = MIKY Marte [facility] 1538) [address] [id number] 05:43:00 Test Item Value Reference Range Interpretation Comments PHOSPHORUS (BEAKER) (test code = 2.9 mg/dL 2.3-4.7 604) [id number] 05:43:00 Test Item Value Reference Range Interpretation Comments MAGNESIUM (BEAKER) (test code = 1.6 mg/dL 1.6-2.6 627) BASIC METABOLIC [id number] 05:43:00 Test Item Value Reference Range Interpretation [...] DIALYSIS PATIEN TS. LACTIC ACID, VENOUS, WHOLE [id number] 05:41:00 Test Item Value Reference Range Interpretation Comments LACTATE BLOOD VENOUS (2) (BEAKER) 0.9 mmol/L 0.5-2.2 (test code = 2872) Effective 06/10/2015: Units/Reference Range ChangeNew: 0.5-2.2 mmol/L Previous: 5-20 mg/dLCBC W/PLT COUNT & AUTO [id number] 05:26:00 Test Item Value Reference Range Interpretation [...] % 0-1 PERCENT (BEAKER) (test code = 2802) B-TYPE NATRIURETIC FACTOR (BNP)2017-06-07 00:39:00 Test Item Value Reference Range Interpretation Comments B-TYPE NATRIURETIC PEPTIDE (BEAKER) 661 pg/mL 0-100 H (test code = 700) BASIC METABOLIC [id number] 00:34:00 Test Item Value Reference Range Interpretation [...] NOT APPLICABLE FOR DIALYSIS PATIEN TS. POCT-GLUCOSE [id number] 23:42:00 Test Item Value Reference Range Interpretation Comments POC-GLUCOSE METER 195 mg/dL 70-110 H TESTED AT [facility] 6720 (BEAKER) (test code = [facility] [place] 1538) [address] BASIC METABOLIC [id number] 17:50:00 Test Item Value Reference Range Interpretation [...] NOT APPLICABLE FOR DIALYSIS PATIEN TS. POCT-GLUCOSE [id number] 17:48:00 Test Item Value Reference Range Interpretation Comments POC-GLUCOSE METER 228 mg/dL 70-110 H TESTED AT [facility] 6720 (BEAKER) (test code = [facility] [place] 1538) [address] POCT-GLUCOSE [id number] 12:03:00 Test Item Value Reference Range Interpretation Comments POC-GLUCOSE METER 237 mg/dL 70-110 H TESTED AT [facility] 6720 (BEAKER) (test code = MIKY [place] 1538) [address] BASIC METABOLIC [id number] 09:39:00 Test Item Value Reference Range Interpretation [...] NOT APPLICABLE FOR DIALYSIS PATIEN TS. CALCIUM, [id number] 04:52:00 Test Item Value Reference Range Interpretation Comments CALCIUM IONIZED (BEAKER) (test 1.08 mmol/L 1.12-1.27 L code = 698) PH, BLOOD (BEAKER) (test code = 7.42 1810) [id number] 04:43:00 Test Item Value Reference Range Interpretation Comments PHOSPHORUS (BEAKER) (test code = 3.5 mg/dL 2.3-4.7 604) [id number] 04:43:00 Test Item Value Reference Range Interpretation Comments MAGNESIUM (BEAKER) (test code = 1.8 mg/dL 1.6-2.6 627) LACTIC ACID, VENOUS, WHOLE [id number] 04:34:00 Test Item Value Reference Range Interpretation Comments LACTATE BLOOD VENOUS (2) (BEAKER) 1.6 mmol/L 0.5-2.2 (test code = 2872) Effective 06/10/2015: Units/Reference Range ChangeNew: 0.5-2.2 mmol/L Previous: 5-20 mg/dLRAD, CHEST, 1 VIEW, NON [id number] 04:29:00Reason for exam:- >intubatedShould this be performed at the bedside?->YesFINAL REPORT RAD, CHEST, 1 VIEW, NON DEPT INDICATION: intubated COMPARISON: Prior day's exam TECHNIQUE: Portable frontal view of the chest. IMPRESSION: Lines and tubes stable.Cardiomediastinal silhouette stable.Stable vascular congestion.Stable dense opacification at the left lung base likely reflecting a combination of pleural fluid and adjacent airspace disease.No acute osseous abnormality. Signed: Mraci Levine MDReport Verified Date/Time: 06/06/2017 04:29:24 Reading Location: [address] Transitional Reading Room CBC W/PLT COUNT & AUTO [id number] 04:14:00 Test Item Value Reference Range Interpretation [...] PERCENT (BEAKER) (test code = 2801) POCT-GLUCOSE [id number] 04:08:00 Test Item Value Reference Range Interpretation Comments POC-GLUCOSE METER 262 mg/dL 70-110 H TESTED AT [place] [address] ([facility] (test code = [facility] 1538) [address] POCT-GLUCOSE [id number] 04:08:00 Test Item Value Reference Range Interpretation Comments POC-GLUCOSE METER 288 mg/dL 70-110 H TESTED AT [place] [address] (BEAKER) (test code = [facility] 1538) [address] POCT-GLUCOSE [id number] 03:43:00 Test Item Value Reference Range Interpretation Comments POC-GLUCOSE METER 248 mg/dL 70-110 H TESTED AT [place] [address] ([facility]) (test code = [facility] 1538) [address] BASIC METABOLIC [id number] 01:47:00 Test Item Value Reference Range Interpretation [...] APPLICABLE FOR DIALYSIS PATIEN TS. VANCOMYCIN LEVEL, [id number] 21:49:00 Test Item Value Reference Range Interpretation Comments VANCOMYCIN TROUGH (BEAKER) (test 21.4 ug/mL 10.0-20.0 H code = 522) POCT-GLUCOSE [id number] 18:34:00 Test Item Value Reference Range Interpretation Comments POC-GLUCOSE METER 250 mg/dL 70-110 H TESTED AT [facility] 6720 (BEAKER) (test code = MIKY Marte [facility] 1538) [address] [id number] 18:00:00 Test Item Value Reference Range Interpretation Comments MAGNESIUM (BEAKER) (test code = 1.4 mg/dL 1.6-2.6 L 627) BASIC METABOLIC [id number] 18:00:00 Test Item Value Reference Range Interpretation [...] NOT APPLICABLE FOR DIALYSIS PATIEN TS. POCT-GLUCOSE [id number] 11:41:00 Test Item Value Reference Range Interpretation Comments POC-GLUCOSE METER 214 mg/dL 70-110 H TESTED AT [facility] 6720 (BEAKER) (test code = MIKY [place] 1538) [address] CREATINE KINASE (CK), TOTAL AND [id number] 10:29:00 Test Item Value Reference Range Interpretation Comments CREATINE KINASE TOTAL (BEAKER) 45 U/L 29-200 (test code = 380) CREATINE KINASE-MB (BEAKER) (test 0.5 ng/mL 0.0-6.6 code = 750) CREATINE KINASE-MB INDEX (BEAKER) 1.1 % (test code = 395) CK-MB Reference Range:<6.7 Normal6.7-10.0 Borderline>10.0 AbnormalBASIC METABOLIC [id number] 10:23:00 Test Item Value Reference Range Interpretation [...] PATIEN TS. RAD, CHEST, 1 VIEW, NON [id number] 07:34:00Reason for exam:- >intubatedShould this be performed at the bedside?->YesFINAL REPORT Chest one view compared to June 04 Discussion: Support tubes, right IJ line, left chest pacemaker in place. Mild pulmonary congestion and probable left base atelectasis. No gross effusion or pneumothorax. IMPRESSIONS: No change. ET tube tip probably 1.3 cm from thecarina. Signed: Jerel Nogueraeport Verified Date/Time: 06/05/2017 07:34:54 Reading Location: [facility] Radiology Reading Room POCT-GLUCOSE [id number] 06:35:00 Test Item Value Reference Range Interpretation Comments POC-GLUCOSE METER 209 mg/dL 70-110 H TESTED AT [facility] 6720 ([facility]) (test code = MIKY Marte [place] 1538) [address] BLOOD [id number] 06:00:00 Test Item Value Reference Range Interpretation Comments CULTURE (BEAKER) (test No growth in 5 days code = 1095) BLOOD [id number] 06:00:00 Test Item Value Reference Range Interpretation Comments CULTURE (BEAKER) (test No growth in 5 days code = 1095) CREATINE KINASE (CK), TOTAL AND [id number] 05:23:00 Test Item Value Reference Range Interpretation Comments CREATINE KINASE TOTAL (BEAKER) 52 U/L 29-200 (test code = 380) CREATINE KINASE-MB (BEAKER) (test 0.4 ng/mL 0.0-6.6 code = 750) CREATINE KINASE-MB INDEX (BEAKER) 0.8 % (test code = 395) CK-MB Reference Range:<6.7 Normal6.7-10.0 Borderline>10.0 [id number] 05:16:00 Test Item Value Reference Range Interpretation Comments PHOSPHORUS (BEAKER) (test code = 2.9 mg/dL 2.3-4.7 604) [id number] 05:16:00 Test Item Value Reference Range Interpretation Comments MAGNESIUM (BEAKER) (test code = 1.4 mg/dL 1.6-2.6 L 627) BASIC METABOLIC [id number] 05:16:00 Test Item Value Reference Range Interpretation [...] PATIEN TS. CBC W/PLT COUNT & AUTO [id number] 05:08:00 Test Item Value Reference Range Interpretation [...] code = 2801) LACTIC ACID, VENOUS, WHOLE [id number] 05:07:00 Test Item Value Reference Range Interpretation Comments LACTATE BLOOD VENOUS (2) (BEAKER) 1.1 mmol/L 0.5-2.2 (test code = 2872) Effective 06/10/2015: Units/Reference Range ChangeNew: 0.5-2.2 mmol/L Previous: 5-20 mg/dLPOCT-GLUCOSE [id number] 00:49:00 Test Item Value Reference Range Interpretation Comments POC-GLUCOSE METER 205 mg/dL 70-110 H TESTED AT [place] [address] ([facility]) (test code = MIKY KAN MD 1538) [address] POCT-GLUCOSE [id number] 17:29:00 Test Item Value Reference Range Interpretation Comments POC-GLUCOSE METER 211 mg/dL 70-110 H TESTED AT [facility] 6720 ([facility]) (test code = MIKY [place] 1538) [address] CREATINE KINASE (CK), TOTAL AND [id number] 16:23:00 Test Item Value Reference Range Interpretation Comments CREATINE KINASE TOTAL (BEAKER) 89 U/L 29-200 (test code = 380) CREATINE KINASE-MB (BEAKER) (test 0.8 ng/mL 0.0-6.6 code = 750) CREATINE KINASE-MB INDEX (BEAKER) 0.9 % (test code = 395) CK-MB Reference Range:<6.7 Normal6.7-10.0 Borderline>10.0 AbnormalBASIC METABOLIC [id number] 16:17:00 Test Item Value Reference Range Interpretation [...] FOR DIALYSIS PATIEN TS. CT, BRAIN, WITHOUT [id number] 15:33:00FINAL REPORT CT Head without contrast CLINICAL [...] MDReport Verified Date/Time: 06/04/2017 15:33:02 Reading Location: [facility] C013V Neuro Reading Room Electronicallysigned by: LISA HARDY M.D. on 06/04/2017 03:33 PMPOCT-GLUCOSE [id number] 13:13:00 Test Item Value Reference Range Interpretation Comments POC-GLUCOSE METER 271 mg/dL 70-110 H TESTED AT [facility] 6720 (BEAKER) (test code = MIKY Marte [facility] 1538) [address] SPUTUM CULTURE + GRAM [id number] 11:40:00 Test Item Value Reference Interpretation Comments [...] 0-5 epithelial (BEAKER) (test code = cells 852902) GRAM STAIN RESULT No organisms seen (BEAKER) (test code = 749124) 1+ Normal respiratory melanie presentCREATINE KINASE (CK), TOTAL AND [id number] 09:49:00 Test Item Value Reference Range Interpretation Comments CREATINE KINASE TOTAL (BEAKER) 61 U/L 29-200 (test code = 380) CREATINE KINASE-MB (BEAKER) (test 0.7 ng/mL 0.0-6.6 code = 750) CREATINE KINASE-MB INDEX (BEAKER) 1.1 % (test code = 395) CK-MB Reference Range:<6.7 Normal6.7-10.0 Borderline>10.0 AbnormalBASIC METABOLIC [id number] 09:43:00 Test Item Value Reference Range Interpretation [...] DIALYSIS PATIEN TS. LACTIC ACID, VENOUS, WHOLE [id number] 09:38:00 Test Item Value Reference Range Interpretation Comments LACTATE BLOOD VENOUS (2) (BEAKER) 0.8 mmol/L 0.5-2.2 (test code = 2872) Effective 06/10/2015: Units/Reference Range ChangeNew: 0.5-2.2 mmol/L Previous: 5-20 mg/dLPOCT-GLUCOSE [id number] 06:06:00 Test Item Value Reference Range Interpretation Comments POC-GLUCOSE METER 133 mg/dL 70-110 H TESTED AT [facility] 6720 (BEAKER) (test code = MIKY NAJER[place] 1530) [address] BLOOD GAS, [id number] 05:21:00 Test Item Value Reference Range Interpretation [...] 21-29 = 388) BASE EXCESS ARTERIAL (BEAKER) -1.8 mmol/L -2.0-3.0 (test code = 387) PATIENT TEMPERATURE (BEAKER) 37.5 C (test code = 1818) FIO2 (BEAKER) (test code = 1819) 50.0 % [id number] 05:12:00 Test Item Value Reference Range Interpretation Comments PHOSPHORUS (BEAKER) (test code = 2.9 mg/dL 2.3-4.7 604) [id number] 05:12:00 Test Item Value Reference Range Interpretation Comments MAGNESIUM (BEAKER) (test code = 1.8 mg/dL 1.6-2.6 627) CBC W/PLT COUNT & AUTO [id number] 04:33:00 Test Item Value Reference Range Interpretation [...] = 2801) RAD, CHEST, 1 VIEW, NON [id number] 04:20:00Reason for exam:->ventedShould this be performed at [...] MDReport Verified Date/Time: 06/04/2017 04:20:06 Reading Location: [address] Reading Room CREATINE KINASE (CK), TOTAL AND [id number] 00:29:00 Test Item Value Reference Range Interpretation Comments CREATINE KINASE TOTAL (BEAKER) 43 U/L 29-200 (test code = 380) CREATINE KINASE-MB (BEAKER) (test 0.6 ng/mL 0.0-6.6 code = 750) CREATINE KINASE-MB INDEX (BEAKER) 1.4 % (test code = 395) CK-MB Reference Range:<6.7 Normal6.7-10.0 Borderline>10.0 AbnormalBASIC METABOLIC [id number] 00:23:00 Test Item Value Reference Range Interpretation [...] NOT APPLICABLE FOR DIALYSIS PATIEN TS. POCT-GLUCOSE [id number] 00:06:00 Test Item Value Reference Range Interpretation Comments POC-GLUCOSE METER 116 mg/dL 70-110 H TESTED AT [facility] 6720 (BEAKER) (test code = BALALEELA [place] 1538) [address] HEMOGLOBIN AND [id number] 00:01:00 Test Item Value Reference Range Interpretation Comments HEMOGLOBIN (BEAKER) (test code = 7.8 GM/DL 13.7-17.5 L 410) HEMATOCRIT (BEAKER) (test code = 25.1 % 40.1-51.0 L 411) RAD, ABDOMEN/KUB, 1 VIEW [id number] 23:47:00Reason for exam:->s/p corpak placementFINAL REPORT EXAMINATION: [...] MDReport Verified Date/Time: 06/03/2017 23:47:47 Reading Location: [address] Reading Room BLOOD GAS, [id number] 19:32:00 Test Item Value Reference Range Interpretation [...] 60.0 % RAD, CHEST, 1 VIEW, NON [id number] 17:52:00Reason for exam:- >intubationShould this be performed [...] MDReport Verified Date/Time: 06/03/2017 17:52:43 Reading Location: [address] Reading Room POCT-GLUCOSE [id number] 17:46:00 Test Item Value Reference Range Interpretation Comments POC-GLUCOSE METER 134 mg/dL 70-110 H TESTED AT [facility] 6720 ([facility]) (test code = MIKY Marte [place] 1538) [address] CREATINE KINASE (CK), TOTAL AND [id number] 15:27:00 Test Item Value Reference Range Interpretation Comments CREATINE KINASE TOTAL (BEAKER) 67 U/L 29-200 (test code = 380) CREATINE KINASE-MB (BEAKER) (test 0.7 ng/mL 0.0-6.6 code = 750) CREATINE KINASE-MB INDEX (BEAKER) 1.0 % (test code = 395) CK-MB Reference Range:<6.7 Normal6.7-10.0 Borderline>10.0 AbnormalBASIC METABOLIC [id number] 15:20:00 Test Item Value Reference Range Interpretation [...] APPLICABLE FOR DIALYSIS PATIEN TS. HEPATITIS A [id number] 15:03:00 Test Item Value Reference Range Interpretation Comments HEPATITIS A IGM ANTIBODY (BEAKER) Nonreactive Nonreactive (test code = 498) HEPATITIS A IGG ANTIBODY (BEAKER) Reactive Nonreactive A (test code = 2797) HEMOGLOBIN AND [id number] 15:02:00 Test Item Value Reference Range Interpretation Comments HEMOGLOBIN (BEAKER) (test code = 8.9 GM/DL 13.7-17.5 L 410) HEMATOCRIT (BEAKER) (test code = 29.0 % 40.1-51.0 L 411) BLOOD GAS, [id number] 15:01:00 Test Item Value Reference Range Interpretation [...] code = 1819) 32.0 % HEPATITIS C [id number] 14:58:00 Test Item Value Reference Range Interpretation Comments HEPATITIS C ANTIBODY (BEAKER) Nonreactive Nonreactive (test code = 367) HEPATITIS B [id number] 14:58:00 Test Item Value Reference Range Interpretation Comments HEPATITIS B CORE TOTAL ANTIBODY Nonreactive Nonreactive (BEAKER) (test code = 497) HEPATITIS B SURFACE ANTIBODY 22.2 mIU/mL <8.0 H (BEAKER) (test code = 647) HEPATITIS B SURFACE ANTIGEN (2) Nonreactive Nonreactive (BEAKER) (test code = 2585) POCT-GLUCOSE [id number] 11:57:00 Test Item Value Reference Range Interpretation Comments POC-GLUCOSE METER 228 mg/dL 70-110 H TESTED AT [facility] 6720 (BEAKER) (test code = MIKY [place] 1538) [address] BLOOD GAS, [id number] 11:12:00 Test Item Value Reference Range Interpretation [...] (test code = 1819) 40.0 % HEMOGLOBIN [id number] 10:39:00 Test Item Value Reference Range Interpretation Comments HEMOGLOBIN A1C (BEAKER) (test code = 5.5 % 4.3-6.1 368) CREATINE KINASE (CK), TOTAL AND [id number] 08:26:00 Test Item Value Reference Range Interpretation Comments CREATINE KINASE TOTAL (BEAKER) 72 U/L 29-200 (test code = 380) CREATINE KINASE-MB (BEAKER) (test 0.9 ng/mL 0.0-6.6 code = 750) CREATINE KINASE-MB INDEX (BEAKER) 1.3 % (test code = 395) CK-MB Reference Range:<6.7 Normal6.7-10.0 Borderline>10.0 AbnormalBASIC METABOLIC [id number] 08:20:00 Test Item Value Reference Range Interpretation [...] PATIEN TS. RAD, CHEST, 1 VIEW, NON [id number] 08:05:00Reason for exam:->ventedShould this be performed at the bedside?->YesFINAL REPORT Chest, one view. HISTORY: Vented COMPARISON: 06/02/2017 IMPRESSION: Supporting hardware unchanged in position. Mild interstitial edema. Unchanged enlargement of the cardiomediastinal silhouette. Trace left pleural effusion. No identifiable pneumothorax. Signed: Venu Holman MDReport Verified Date/Time: 06/03/2017 08:05:13 Reading Location: [facility] C013Y CT Body Reading Room GLOBIN AND [id number] 07:52:00 Test Item Value Reference Range Interpretation Comments HEMOGLOBIN (BEAKER) (test code = 8.7 GM/DL 13.7-17.5 L 410) HEMATOCRIT (BEAKER) (test code = 27.6 % 40.1-51.0 L 411) POCT-GLUCOSE [id number] 06:48:00 Test Item Value Reference Range Interpretation Comments POC-GLUCOSE METER 281 mg/dL 70-110 H TESTED AT [facility] 6720 (BEAKER) (test code = MIKY NAJERA 1538) [address] BLOOD GAS, [id number] 05:52:00 Test Item Value Reference Range Interpretation [...] code = 1819) 40.0 % BASIC METABOLIC [id number] 05:47:00 Test Item Value Reference Range Interpretation [...] PATIEN TS. CBC W/PLT COUNT & AUTO [id number] 05:40:00 Test Item Value Reference Range Interpretation [...] 0-1 PERCENT (BEAKER) (test code = 2801) [id number] 05:37:00 Test Item Value Reference Range Interpretation Comments PHOSPHORUS (BEAKER) (test code = 2.5 mg/dL 2.3-4.7 604) [id number] 05:37:00 Test Item Value Reference Range Interpretation Comments MAGNESIUM (BEAKER) (test code = 1.8 mg/dL 1.6-2.6 627) BASIC METABOLIC [id number] 00:57:00 Test Item Value Reference Range Interpretation [...] PATIEN TS. CREATINE KINASE (CK), TOTAL AND [id number] 00:55:00 Test Item Value Reference Range Interpretation Comments CREATINE KINASE TOTAL (BEAKER) 61 U/L 29-200 (test code = 380) CREATINE KINASE-MB (BEAKER) (test 0.8 ng/mL 0.0-6.6 code = 750) CREATINE KINASE-MB INDEX (BEAKER) 1.3 % (test code = 395) CK-MB Reference Range:<6.7 Normal6.7-10.0 Borderline>10.0 AbnormalHEMOGLOBIN AND [id number] 00:39:00 Test Item Value Reference Range Interpretation Comments HEMOGLOBIN (BEAKER) (test code = 8.2 GM/DL 13.7-17.5 L 410) HEMATOCRIT (BEAKER) (test code = 25.8 % 40.1-51.0 L 411) POCT-GLUCOSE [id number] 00:38:00 Test Item Value Reference Range Interpretation Comments POC-GLUCOSE METER 289 mg/dL 70-110 H TESTED AT [facility] 6720 (BEAKER) (test code = MIKY NAJER[place] 5978) [address] BASIC METABOLIC [id number] 19:04:00 Test Item Value Reference Range Interpretation [...] NOT APPLICABLE FOR DIALYSIS PATIEN TS. POCT-GLUCOSE [id number] 17:54:00 Test Item Value Reference Range Interpretation Comments POC-GLUCOSE METER 185 mg/dL 70-110 H TESTED AT [facility] 6720 ([facility] (test code = [facility] MARYVALE Estuardo [facility] 1538) [address] POCT-GLUCOSE [id number] 17:06:00 Test Item Value Reference Range Interpretation Comments POC-GLUCOSE METER 171 mg/dL 70-110 H TESTED AT [facility] 6720 ([facility]) (test code = [facility] 1538) [address] CREATINE KINASE (CK), TOTAL AND [id number] 16:32:00 Test Item Value Reference Range Interpretation Comments CREATINE KINASE TOTAL (BEAKER) 77 U/L 29-200 (test code = 380) CREATINE KINASE-MB (BEAKER) (test 0.7 ng/mL 0.0-6.6 code = 750) CREATINE KINASE-MB INDEX (BEAKER) 0.9 % (test code = 395) CK-MB Reference Range:<6.7 Normal6.7-10.0 Borderline>10.0 AbnormalBASIC METABOLIC [id number] 16:28:00 Test Item Value Reference Range Interpretation [...] NOT APPLICABLE FOR DIALYSIS PATIEN TS. POCT-GLUCOSE [id number] 16:24:00 Test Item Value Reference Range Interpretation Comments POC-GLUCOSE METER 172 mg/dL 70-110 H TESTED AT [place] [address] ([facility]) (test code = [facility] [place]e [place] 1538) [address] POCT-GLUCOSE [id number] 15:30:00 Test Item Value Reference Range Interpretation Comments POC-GLUCOSE METER 192 mg/dL 70-110 H TESTED AT [facility] 6720 ([facility]) (test code = [facility] [place] 1538) [address] URINE [id number] 14:28:00 Test Item Value Reference Range Interpretation Comments CULTURE (BEAKER) (test code = 1095) No growth POCT-GLUCOSE [id number] 14:10:00 Test Item Value Reference Range Interpretation Comments POC-GLUCOSE METER 183 mg/dL 70-110 H TESTED AT [facility] 6720 ([facility]) (test code = [facility] Ultius [place] 1538) [address] POCT-GLUCOSE [id number] 14:10:00 Test Item Value Reference Range Interpretation Comments POC-GLUCOSE METER 191 mg/dL 70-110 H TESTED AT [place] [address] ([facility]) (test code = [facility] MARYVALE Ultius [place] 1538) [address] RAD, ABDOMEN/KUB, 1 VIEW [id number] 13:03:00Reason for exam:->dobbhoff tube placementFINAL REPORT Abdomen one view INDICATION: Dobbhoff tube placement COMPARISON:05/30/2017 IMPRESSION: Feeding tube tip extends to the distal stomach. Suggest advancing. The bowel gas pattern is nonspecific. Cholecystectomy clips, degenerative spine changes, and vascular calcifications and stents are noted. The imaged lower chest is similar to earlier today. Signed: Tanisha Montalvo MDReport Verified Date/Time: 06/02/2017 13:03:48 Reading Location: [facility] Radiology Reading Room POCT- GLUCOSE [id number] 11:56:00 Test Item Value Reference Range Interpretation Comments POC-GLUCOSE METER 123 mg/dL 70-110 H TESTED AT [place] [address] ([facility]) (test code = MIKY Marte [facility] 1538) [address] POCT-GLUCOSE [id number] 10:58:00 Test Item Value Reference Range Interpretation Comments POC-GLUCOSE METER 206 mg/dL 70-110 H TESTED AT [place] [address] ([facility]) (test code = [facility] MARYVALE Estuardo [facility] 1538) [address] HEMOGLOBIN AND [id number] 10:38:00 Test Item Value Reference Range Interpretation Comments HEMOGLOBIN (BEAKER) (test code = 8.9 GM/DL 13.7-17.5 L 410) HEMATOCRIT ([facility]) (test code = 28.7 % 40.1-51.0 L 411) [id number] 09:04:00 Test Item Value Reference Range Interpretation Comments GLUCOSE RANDOM ([facility]) (test code 230 mg/dL 70-105 H = 652) CREATINE KINASE (CK), TOTAL AND [id number] 08:55:00 Test Item Value Reference Range Interpretation Comments CREATINE KINASE TOTAL (BEAKER) 96 U/L 29-200 (test code = 380) CREATINE KINASE-MB (BEAKER) (test 1.0 ng/mL 0.0-6.6 code = 750) CREATINE KINASE-MB INDEX ([facility]) 1.0 % (test code = 395) CK-MB Reference Range:<6.7 Normal6.7-10.0 Borderline>10.0 AbnormalTROPONIN [id number] 08:55:00 Test Item Value Reference Range Interpretation [...] failure, acidosis, acute neurological disease, and persistent tachyarrhythmia.[id number] 08:42:00 Test Item Value Reference Range Interpretation Comments AMMONIA (BEAKER) (test code = 348) 52 mol/L 18-72 POCT-GLUCOSE [id number] 06:16:00 Test Item Value Reference Range Interpretation Comments POC-GLUCOSE METER 213 mg/dL 70-110 H TESTED AT [facility] 6720 (BEAKER) (test code = [facility] 1538) [address] BLOOD GAS, [id number] 05:52:00 Test Item Value Reference Range Interpretation [...] code = 1819) 40.0 % COMPREHENSIVE METABOLIC [id number] 05:41:00 Test Item Value Reference Range Interpretation [...] S NOT APPLICABLE FOR DIALYSIS PATIEN TS. [id number] 05:35:00 Test Item Value Reference Range Interpretation Comments PHOSPHORUS (BEAKER) (test code = 2.7 mg/dL 2.3-4.7 604) [id number] 05:35:00 Test Item Value Reference Range Interpretation Comments MAGNESIUM (BEAKER) (test code = 2.0 mg/dL 1.6-2.6 627) CBC W/PLT COUNT & AUTO [id number] 05:23:00 Test Item Value Reference Range Interpretation [...] = 2801) RAD, CHEST, 1 VIEW, NON [id number] 04:41:00Reason for exam:->ventedShould this be performed at [...] MDReport Verified Date/Time: 06/02/2017 04:41:51 Reading Location: [address] Reading Room CREATINE KINASE (CK), TOTAL AND [id number] 01:02:00 Test Item Value Reference Range Interpretation Comments CREATINE KINASE TOTAL ([facility]) 109 U/L 29-200 (test code = 380) CREATINE KINASE-MB ([facility]) (test 1.0 ng/mL 0.0-6.6 code = 750) CREATINE KINASE-MB INDEX ([facility]) 0.9 % (test code = 395) CK-MB Reference Range:<6.7 Normal6.7-10.0 Borderline>10.0 AbnormalTROPONIN [id number] 01:02:00 Test Item Value Reference Range Interpretation [...] acidosis, acute neurological disease, and persistent tachyarrhythmia.POCT-GLUCOSE [id number] 00:25:00 Test Item Value Reference Range Interpretation Comments POC-GLUCOSE METER 234 mg/dL 70-110 H TESTED AT [facility] 6720 ([facility]) (test code = MIKY NAJERA 1538 [address] [id number] 22:40:00 Test Item Value Reference Range Interpretation Comments MAGNESIUM (BEAKER) (test code = 2.0 mg/dL 1.6-2.6 627) PROTHROMBIN TIME/[id number] 22:34:00 Test Item Value Reference Range Interpretation Comments PROTIME (BEAKER) (test code = 18.0 seconds 11.7-14.7 H 759) INR (BEAKER) (test code = 370) 1.5 <=5.9 RECOMMENDED COUMADIN/WARFARIN INR THERAPY RANGESSTANDARD DOSE: 2.0 - 3.0 Includes: PROPHYLAXIS forvenous thrombosis, systemic embolization; TREATMENT for venous thrombosis and/or pulmonary embolus.HIGH RISK: Target INR is 2.5-3.5 for patients with mechanical heart valves.HEMOGLOBIN AND [id number] 22:27:00 Test Item Value Reference Range Interpretation Comments HEMOGLOBIN (BEAKER) (test code = 8.3 GM/DL 13.7-17.5 L 410) HEMATOCRIT (BEAKER) (test code = 25.9 % 40.1-51.0 L 411) POCT-GLUCOSE [id number] 18:46:00 Test Item Value Reference Range Interpretation Comments POC-GLUCOSE METER 318 mg/dL 70-110 H Notified R N MD/TESTED (BEAKER) (test code = AT [facility] 6720 [facility] 1538) [facility] 7[address] 0 CREATINE KINASE (CK), TOTAL AND [id number] 18:06:00 Test Item Value Reference Range Interpretation Comments CREATINE KINASE TOTAL (BEAKER) 155 U/L 29-200 (test code = 380) CREATINE KINASE-MB (BEAKER) (test 1.2 ng/mL 0.0-6.6 code = 750) CREATINE KINASE-MB INDEX (BEAKER) 0.8 % (test code = 395) CK-MB Reference Range:<6.7 Normal6.7-10.0 Borderline>10.0 AbnormalTROPONIN [id number] 18:06:00 Test Item Value Reference Range Interpretation [...] acute neurological disease, and persistent tachyarrhythmia.HEMOGLOBIN AND [id number] 17:41:00 Test Item Value Reference Range Interpretation Comments HEMOGLOBIN (BEAKER) (test code = 8.7 GM/DL 13.7-17.5 L 410) HEMATOCRIT (BEAKER) (test code = 27.0 % 40.1-51.0 L 411) RAD, CHEST, 1 VIEW, NON [id number] 17:39:00Reason for exam:->central line placement Should this [...] MDReport Verified Date/Time: 06/01/2017 17:39:56 Reading Location: [address] Consult Reading Room BASI METABOLIC [id number] 13:20:00 Test Item Value Reference Range Interpretation [...] NOT APPLICABLE FOR DIALYSIS PATIEN TS. TROPONIN [id number] 13:20:00 Test Item Value Reference Range Interpretation [...] Range:<6.7 Normal6.7-10.0 Borderline>10.0 AbnormalLACTIC ACID, VENOUS, WHOLE [id number] 12:45:00 Test Item Value Reference Range Interpretation Comments LACTATE BLOOD VENOUS (2) (BEAKER) 0.8 mmol/L 0.5-2.2 (test code = 2872) Effective 06/10/2015: Units/Reference Range ChangeNew: 0.5-2.2 mmol/L Previous: 5-20 mg/dLPT/[id number] 12:29:00 Test Item Value Reference Range Interpretation [...] 2.5-3.5 for patients with mechanical heart valves.POCT-GLUCOSE [id number] 12:28:00 Test Item Value Reference Range Interpretation Comments POC-GLUCOSE METER 180 mg/dL 70-110 H TESTED AT [place] [address] ([facility]) (test code = MIKY Marte [facility] 1538) [address] BLOOD GAS, [id number] 12:24:00 Test Item Value Reference Range Interpretation [...] code = 1819) 40.0 % HEMOGLOBIN AND [id number] 12:20:00 Test Item Value Reference Range Interpretation Comments HEMOGLOBIN (BEAKER) (test code = 7.4 GM/DL 13.7-17.5 L 410) HEMATOCRIT (BEAKER) (test code = 23.2 % 40.1-51.0 L 411) POCT-GLUCOSE [id number] 11:20:00 Test Item Value Reference Range Interpretation Comments POC-GLUCOSE METER 113 mg/dL 70-110 H TESTED AT [place] [address] ([facility]) (test code = MIKY Marte [facility] 1538) [address] POCT-GLUCOSE [id number] 11:20:00 Test Item Value Reference Range Interpretation Comments POC-GLUCOSE METER 73 mg/dL 70-110 TESTED AT [place] [address] ([facility]) (test code = [facility] MARYVALE Estuardo [facility] [address] 1538) RAD, CHEST, 1 VIEW, NON [id number] 08:21:00Reason for exam:->acess for pulmonary edemaShould this [...] MDReport Verified Date/Time: 06/01/2017 08:21:22 Reading Location: [facility] Radiology Reading Room POCT-GLUCOSE [id number] 07:34:00 Test Item Value Reference Range Interpretation Comments POC-GLUCOSE METER 126 mg/dL 70-110 H TESTED AT [place] [address] ([facility]) (test code = [facility] 1538) [address] POCT-GLUCOSE [id number] 06:58:00 Test Item Value Reference Range Interpretation Comments POC-GLUCOSE METER 171 mg/dL 70-110 H TESTED AT [place] [address] ([facility]) (test code = [facility] 1538) [address] POCT-GLUCOSE [id number] 06:58:00 Test Item Value Reference Range Interpretation Comments POC-GLUCOSE METER 210 mg/dL 70-110 H TESTED AT [place] [address] ([facility]) (test code = [facility] 1538) [address] BASIC METABOLIC [id number] 05:04:00 Test Item Value Reference Range Interpretation [...] NOT APPLICABLE FOR DIALYSIS PATIEN TS. TROPONIN [id number] 05:02:00 Test Item Value Reference Range Interpretation [...] = 395) CK-MB Reference Range:<6.7 Normal6.7-10.0 Borderline>10.0 [id number] 04:52:00 Test Item Value Reference Range Interpretation Comments PHOSPHORUS (BEAKER) (test code = 3.1 mg/dL 2.3-4.7 604) [id number] 04:52:00 Test Item Value Reference Range Interpretation Comments MAGNESIUM (BEAKER) (test code = 2.3 mg/dL 1.6-2.6 627) LACTIC ACID, VENOUS, WHOLE [id number] 04:45:00 Test Item Value Reference Range Interpretation Comments LACTATE BLOOD VENOUS (2) (BEAKER) 1.9 mmol/L 0.5-2.2 (test code = 2872) Effective 06/10/2015: Units/Reference Range ChangeNew: 0.5-2.2 mmol/L Previous: 5-20 mg/dLPOCT-GLUCOSE [id number] 03:55:00 Test Item Value Reference Range Interpretation Comments POC-GLUCOSE METER 175 mg/dL 70-110 H TESTED AT [place] [address] ([facility]) (test code = MIKY Marte [place] 1538) [address] POCT-GLUCOSE [id number] 03:55:00 Test Item Value Reference Range Interpretation Comments POC-GLUCOSE METER 83 mg/dL 70-110 TESTED AT [place] [address] ([facility]) (test code = MIKY Marte [facility] [address] 1538) CBC W/PLT COUNT & AUTO [id number] 02:01:00 Test Item Value Reference Range Interpretation [...] code = 2801) LACTIC ACID, VENOUS, WHOLE [id number] 22:35:00 Test Item Value Reference Range Interpretation Comments LACTATE BLOOD VENOUS 1.2 mmol/L 0.5-2.2 Specime n slightly (2) (BEAKER) (test hemolyzed code = 7732) Effective 06/10/2015: Units/Reference Range ChangeNew: 0.5-2.2 mmol/L Previous: 5-20 mg/dLHEMOGLOBIN AND [id number] 22:12:00 Test Item Value Reference Range Interpretation Comments HEMOGLOBIN (BEAKER) (test code = 7.7 GM/DL 13.7-17.5 L 410) HEMATOCRIT (BEAKER) (test code = 24.0 % 40.1-51.0 L 411) POCT-GLUCOSE [id number] 21:02:00 Test Item Value Reference Range Interpretation Comments POC-GLUCOSE METER 131 mg/dL 70-110 H TESTED AT [facility] 6720 (BEAKER) (test code = MIKY NAJERA 1538) [address] POCT-GLUCOSE [id number] 19:57:00 Test Item Value Reference Range Interpretation Comments POC-GLUCOSE METER 159 mg/dL 70-110 H TESTED AT [facility] 6720 (BEAKER) (test code = MIKY Marte [facility] 1538) [address] POCT-GLUCOSE [id number] 18:42:00 Test Item Value Reference Range Interpretation Comments POC-GLUCOSE METER 186 mg/dL 70-110 H TESTED AT [place] [address] ([facility]) (test code = MIKY Marte [facility] 1538) [address] POCT-GLUCOSE [id number] 18:33:00 Test Item Value Reference Range Interpretation Comments POC-GLUCOSE METER 181 mg/dL 70-110 H TESTED AT [place] [address] ([facility]) (test code = MIKY Marte [facility] 1538) [address] POCT-GLUCOSE [id number] 18:33:00 Test Item Value Reference Range Interpretation Comments POC-GLUCOSE METER 226 mg/dL 70-110 H TESTED AT [place] [address] ([facility]) (test code = MIKY Marte [facility] 1538) [address]26 POCT-GLUCOSE [id number] 18:33:00 Test Item Value Reference Range Interpretation Comments POC-GLUCOSE METER 257 mg/dL 70-110 H TESTED AT [place] [address] ([facility]) (test code = [facility] Estuardo [facility] 1538) [address] TROPONIN [id number] 18:15:00 Test Item Value Reference Range Interpretation Comments TROPONIN I ([facility]) (test code = 0.16 ng/mL [...] CREATINE KINASE TOTAL ([facility]) 454 U/L 29-200 H (test code = 380) CREATINE KINASE-MB ([facility]) (test 3.0 ng/mL 0.0-6.6 code = 750) CREATINE KINASE-MB INDEX ([facility]) 0.7 % (test code = 395) CK-MB Reference Range:<6.7 Normal6.7-10.0 Borderline>10.0 AbnormalBLOOD GAS, [id number] 17:57:00 Test Item Value Reference Range Interpretation [...] code = 1819) 40.0 % HEMOGLOBIN AND [id number] 17:47:00 Test Item Value Reference Range Interpretation Comments HEMOGLOBIN (BEAKER) (test code = 7.7 GM/DL 13.7-17.5 L 410) HEMATOCRIT (BEAKER) (test code = 23.3 % 40.1-51.0 L 411) EEG AWAKE/ASLEEP AND [id number] 17:06:00Reason for exam:->syncopal episode r/o seizure activityShould this be performed at the bedside?->Yes Date(s) of EE05/31/17ACC: [id number] Number: [id number] Location: Inpatient ICUStart time: 16:25Stop time: 16:46ICD-10: G93.40CPT Code: 55878 HISTORY: 82 years-old with GI bleed and [...] well as with other settingsof widespread, non-metabolic [employer]GER insults (such as trauma or aftermath of significant seizures). Jovanny Montanez M.D.Neurophysiology Fellow, PGY5 Rikki Zayas M.D.Clinical Neurophysiology/Epilepsy Attending RAD, CHEST, 1 VIEW, NON [id number] 16:55:00Reason for exam:->Post intubationShould this be performed [...] MDReport Verified Date/Time: 05/31/2017 16:55:11 Reading Location: [address] Consult Reading Room HEMOGLOBIN [id number] 15:51:00 Test Item Value Reference Range Interpretation Comments HEMOGLOBIN A1C (BEAKER) (test code = 6.1 % 4.3-6.1 368) POCT-GLUCOSE [id number] 15:03:00 Test Item Value Reference Range Interpretation Comments POC-GLUCOSE METER 150 mg/dL 70-110 H TESTED AT [facility] 6720 (BEAKER) (test code = MIKY [place] 1538) [address] BASIC METABOLIC [id number] 13:41:00 Test Item Value Reference Range Interpretation [...] S NOT APPLICABLE FOR DIALYSIS PATIEN TS. [id number] 13:34:00 Test Item Value Reference Range Interpretation Comments PHOSPHORUS (BEAKER) (test code = 4.0 mg/dL 2.3-4.7 604) [id number] 13:34:00 Test Item Value Reference Range Interpretation Comments MAGNESIUM (BEAKER) (test code = 2.2 mg/dL 1.6-2.6 627) LACTIC ACID, VENOUS, WHOLE [id number] 13:20:00 Test Item Value Reference Range Interpretation Comments LACTATE BLOOD VENOUS (2) (BEAKER) 1.8 mmol/L 0.5-2.2 (test code = 2872) Effective 06/10/2015: Units/Reference Range ChangeNew: 0.5-2.2 mmol/L Previous: 5-20 mg/dLCBC W/PLT COUNT & AUTO [id number] 13:08:00 Test Item Value Reference Range Interpretation [...] (BEAKER) (test code = 2801) HEMOGLOBIN AND [id number] 13:00:00 Test Item Value Reference Range Interpretation Comments HEMOGLOBIN ([facility]) (test code = 8.3 GM/DL 13.7-17.5 L 410) HEMATOCRIT ([facility]) (test code = 25.3 % 40.1-51.0 L 411) POCT-GLUCOSE [id number] 12:13:00 Test Item Value Reference Range Interpretation Comments POC-GLUCOSE METER 119 mg/dL 70-110 H TESTED AT [place] [address] ([facility]) (test code = [facility] 1538) [address] POCT-GLUCOSE [id number] 12:13:00 Test Item Value Reference Range Interpretation Comments POC-GLUCOSE METER 150 mg/dL 70-110 H TESTED AT [place] [address] ([facility]) (test code = [facility] 1538) 118[address] POCT-GLUCOSE [id number] 12:13:00 Test Item Value Reference Range Interpretation Comments POC-GLUCOSE METER 211 mg/dL 70-110 H TESTED AT [place] [address] ([facility]) (test code = [facility] 1538) [address]175 POCT-GLUCOSE [id number] 12:13:00 Test Item Value Reference Range Interpretation Comments POC-GLUCOSE METER 272 mg/dL 70-110 H TESTED AT [place] [address] ([facility]) (test code = [facility] 1538) [address] B-TYPE NATRIURETIC FACTOR (BNP)2017-05-31 08:12:00 Test Item Value Reference Range Interpretation Comments B-TYPE NATRIURETIC PEPTIDE ([facility]) 558 pg/mL 0-100 H (test code = 700) CREATINE KINASE (CK), TOTAL AND [id number] 07:37:00 Test Item Value Reference Range Interpretation Comments CREATINE KINASE TOTAL ([facility]) 560 U/L 29-200 H (test code = 380) CREATINE KINASE-MB ([facility]) (test 4.9 ng/mL 0.0-6.6 code = 750) CREATINE KINASE-MB INDEX ([facility]) 0.9 % (test code = 395) CK-MB Reference Range:<6.7 Normal6.7-10.0 Borderline>10.0 AbnormalTROPONIN [id number] 07:37:00 Test Item Value Reference Range Interpretation [...] failure, acidosis, acute neurological disease, and persistent tachyarrhythmia.[id number] 07:26:00 Test Item Value Reference Range Interpretation Comments ETHANOL (BEAKER) (test code = 400) < mg/dL <=10 POCT-GLUCOSE [id number] 06:52:00 Test Item Value Reference Range Interpretation Comments POC-GLUCOSE METER 284 mg/dL 70-110 H [facility] [place] [address] [facility] (test [facility] = [facility] Marte [facility] 1538) [address] POCT-GLUCOSE [id number] 05:47:00 Test Item Value Reference Range Interpretation Comments POC-GLUCOSE METER 406 mg/dL 70-110 HH TESTED AT [place] [address] (BEAKER) (test code = [facility] Ultius [facility] 1538) [address] POCT-GLUCOSE [id number] 05:47:00 Test Item Value Reference Range Interpretation Comments POC-GLUCOSE METER 405 mg/dL 70-110 HH TESTED AT [place] [address] ([facility]) (test code = [employer] [facility] 1538) [address] POCT-GLUCOSE [id number] 05:47:00 Test Item Value Reference Range Interpretation Comments POC-GLUCOSE METER 429 mg/dL 70-110 HH TESTED AT [place] [address] ([facility]) (test code = [facility] [employer] [facility] 1538) [address] BASIC METABOLIC [id number] 04:02:00 Test Item Value Reference Range Interpretation [...] S NOT APPLICABLE FOR DIALYSIS PATIEN TS. [id number] 03:59:00 Test Item Value Reference Range Interpretation Comments PHOSPHORUS (BEAKER) (test code = 4.4 mg/dL 2.3-4.7 604) [id number] 03:59:00 Test Item Value Reference Range Interpretation Comments MAGNESIUM (BEAKER) (test code = 2.2 mg/dL 1.6-2.6 627) VANCOMYCIN LEVEL, [id number] 03:49:00 Test Item Value Reference Range Interpretation Comments VANCOMYCIN RANDOM (BEAKER) (test 19.0 ug/mL code = 523) Reference Range: No NormalsCBC W/PLT COUNT & AUTO [id number] 03:41:00 Test Item Value Reference Range Interpretation [...] code = 2801) LACTIC ACID, VENOUS, WHOLE [id number] 03:29:00 Test Item Value Reference Range Interpretation Comments LACTATE BLOOD VENOUS (2) (BEAKER) 3.1 mmol/L 0.5-2.2 H (test code = 2872) Effective 06/10/2015: Units/Reference Range ChangeNew: 0.5-2.2 mmol/L Previous: 5-20 mg/dLCALCIUM, [id number] 03:17:00 Test Item Value Reference Range Interpretation Comments CALCIUM IONIZED (BEAKER) (test 1.14 mmol/L 1.12-1.27 code = 698) PH, BLOOD (BEAKER) (test code = 7.31 1810) BASIC METABOLIC [id number] 23:39:00 Test Item Value Reference Range Interpretation [...] S NOT APPLICABLE FOR DIALYSIS PATIEN TS. [id number] 23:16:00 Test Item Value Reference Range Interpretation Comments AMMONIA (BEAKER) (test code = 348) 32 mol/L 18-72 HEPATIC FUNCTION [id number] 23:13:00 Test Item Value Reference Range Interpretation [...] 6-55 347) CBC W/PLT COUNT & AUTO [id number] 22:55:00 Test Item Value Reference Range Interpretation [...] 0-0 H (BEAKER) (test code = 413) [id number] 22:52:00 Test Item Value Reference Range Interpretation Comments MAGNESIUM (BEAKER) (test code = 2.4 mg/dL 1.6-2.6 627) [id number] 22:52:00 Test Item Value Reference Range Interpretation Comments PHOSPHORUS (BEAKER) (test code = 4.5 mg/dL 2.3-4.7 604) [id number] 22:49:00 Test Item Value Reference Range Interpretation Comments FIBRINOGEN LEVEL (BEAKER) (test 390 mg/dl 225-434 code = 658) RAD, ABDOMEN/KUB, 1 VIEW [id number] 22:46:00Reason for exam:->abdominal painShould this be performed [...] Sánchez Verified Date/Time: 05/30/2017 22:46:58 Reading Location: [address] Consult Reading Room , CHEST, 1 VIEW, NON [id number] 22:45:00Post-intubationReason for exam:- >tachypneaShould this be performed [...] Verified Date/Time: 0 05/30/2017 22:45:22 Reading Location: [facility] C0[facility] Consult Reading Room PROTHROMBIN [id number] 22:44:00 Test Item Value Reference Range Interpretation Comments PROTIME (BEAKER) (test code = 22.6 seconds 11.7-14.7 H 759) INR (BEAKER) (test code = 370) 2.0 <=5.9 RECOMMENDED COUMADIN/WARFARIN INR THERAPY RANGESSTANDARD DOSE: 2.0 - 3.0 Includes: PROPHYLAXIS forvenous thrombosis, systemic embolization; TREATMENT for venous thrombosis and/or pulmonary embolus.HIGH RISK: Target INR is 2.5-3.5 for patients with mechanical heart valves.URINALYSIS W/ [id number] 22:34:00 Test Item Value Reference Range Interpretation [...] 1574) SOURCE(BEAKER) (test code = Urine, [place] 6842) BLOOD GAS, [id number] 22:25:00 Test Item Value Reference Range Interpretation [...] 36.6 C (test code = 1818) CALCIUM, [id number] 22:23:00 Test Item Value Reference Range Interpretation Comments CALCIUM IONIZED (BEAKER) (test 1.12 mmol/L 1.12-1.27 code = 698) PH, BLOOD (BEAKER) (test code = 7.36 1810)
--- OUTSIDE RECORDS SUMMARY | 2020-03-16 07:32 | XMS REPORT ---
:1935 Author Organization [facility] Address [address] [place], 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 2050553 01 above knee amputation Problem Gout M10.9 Active confirmed 13316996 Problem Renal failure N19 Active confirmed 688423 05 Problem HTN I10 Active confirmed 23833241 (hypertension ) Problem Hypomagnesemi E83.42 Active confirmed 105369 004 a Problem Thrombocytosi D47.3 Active confirmed 101971 9 s Problem Stented Z95.5 Active confirmed 567085817 coronary artery Problem CKD (chronic N18.3 Active confirmed 3462339 02 kidney disease) stage 3, GFR 30-59 ml/min Problem 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 38096472 diabetes mellitus with hyperglycemia Problem Diabetes E11.29 Active confirmed 103410702 mellitus with kidney disease Problem Hyperglycemic E11.65 Active confirmed 816685 006 crisis in diabetes mellitus Problem Hyperlipidemi E78.5 Active confirmed 668036 04 a Problem Anemia, D64.9 Active confirmed 845645989 unspecified type Problem Painful R30.9 Active confirmed 87632285 urination Problem S/P PICC Z95.828 Active confirmed 362167439 central line placement Problem bottom turner Z79.4 Active confirmed 278843529 (current) use of insulin ALLERGIES No Known Allergies ENCOUNTERS from 1935 to 2020-03-11 Encounter Location Date Provider Diagnosis [facility] [address], [place] [address] IMMUNIZATIONS No Information SOCIAL HISTORY Tobacco Use: [...] Milla Pen 1 needle with tresiba Active [place] 4mm x 32Gm subcutaneously once a day [...] RESULTS No Results REASON FOR VISIT Hgb 5.6 CRITICAL/ED MEDICAL (GENERAL) HISTORY Type Description Date Medical History Atherosclerosis of coronary artery of na tive heart Medical History Stented coronary artery Medical History Diabetes mellitus with kidney disease Medical History Proteinuria, unspecified Medical History HTN (hypertension) Medical History Hyperlipidemia Medical History Status post above knee amputation Medical History Gout Medical History Hypomagnesemia Medical History Renal failure Medical History Thrombocytosis Surgical History Left knee 3908-9110 Surgical History Pace maker 1997 Surgical History [...] MG TAKE 1 TABLET BY MOUTH DAILY Next Appt Details Provider Name:Rocco Mary Valle, 2020-05-11 01:00:00 PM, [address], [place], [address], Provider Name:Rocco Mary Valle, 2020-05-18 01:00:00 PM, [address], [facility] [address], [place], [address], Insurance Providers Payer Name Payer Address Payer Insured Patient Coverage Cover age Phone Name Relationship to Start Date End Date Insured MEDICARE Attn Part B [id number] Taurus Burrows [employer] Claims [address] [facility] [address] [facility] [address] [phone] Taurus Burrows and [facility] [address] [facility] [address]
--- OUTSIDE RECORDS SUMMARY | 2020-03-16 07:34 | XMS REPORT | Summary of Care ---
:1935 Author Organization [facility] - [facility] Address [address] [place] [address] Care Team Providers Name Role Phone Pcp, Patient Does Not Have A Primary Care Provider +[id number] 0-0000 Reason for Referral Radiology Services (Routine) Status Reason Specialty Diagnoses / Referred By Referred To Procedures Contact Contact New Request Diagnostic Diagnoses Pleural effusion Gabriel, Marito Radiology Procedures XR CHEST 1 KEITH Mojica MD [address] [place], [place] [phone] Radiology Services (STAT) Status Reason Specialty Diagnoses / Referred By Referred To Procedures Contact Contact New Request Diagnostic Diagnoses Anemia, unspecified type Gabriel, Marito Radiology Procedures US ABDOMEN LIMITED WITH DOPPLER MD Galina [address] [place], [place] [phone] Radiology Services (Routine) Status Reason Specialty Diagnoses / Referred By Referred To Procedures Contact Contact New Request Diagnostic Diagnoses Pleural effusion Gabriel, Marito Radiology Procedures XR CHEST 1 KEITH Mojica MD [address] [place], [place] [phone] Reason for Visit Auth/Cert Status Reason Specialty Diagnoses / Referred By Referred To Procedures Contact Contact Geriatric Medicine Diagnoses Anemia anemia and GI bleed Judie agarwal [address] [phone] Fax: Encounter Details Date Type Department Care Team Description 03/11/2020 - Hospital Encounter Acute Care for the Marito Rios A nemia 03/15/2020 Elderly (JUDIE Agarwal) MD [address] [id number] [place] [address] [phone] Allergies No Known Allergiesdocumented as of this encounter (statuses as of 03/15/2020) Medications Medication Sig Dispensed Refills Start Date End Date Status aspirin 81 mg Take 81 mg by 0 Ac tive chewable tablet mouth daily. tamsulosin 0.4 mg Take by mouth 0 Active 24 hr capsule daily. tolterodine Take 1 mg by 0 Activ e (DETROL) 1 mg mouth 2 (two) tablet times daily. allopurinoL 300 mg Take 300 mg by 0 Active tablet mouth daily. thiamine 100 mg Take 100 mg by 0 Active tablet mouth daily. omeprazole 20 mg Take 2 30 capsule 0 03/15/2020 A ctive capsuleIndications capsules by : Pleural effusion mouth daily. carvediloL 6.25 mg Take 1 tablet 60 tablet 0 03/15/2020 Active tabletIndications: by mouth 2 Pleural effusion (two) times daily with meals. furosemide 40 mg Take 1 tablet 60 tablet 0 03/15/2020 Active tabletIndications: by mouth 2 Pleural effusion (two) times daily. insulin degludec inject 42 0 03/15/2020 Di scontinued (TRESIBA FLEXTOUCH Units under U-100) 100 unit/mL the skin. (3 mL) InPn carvediloL (COREG) Take 3.125 mg 0 021 Discontinued 3.125 mg tablet by mouth 2 (two) times daily with meals. furosemide (LASIX) Take 40 mg by 0 021 Discontinued 40 mg tablet mouth daily. documented as of this encounter (statuses as of 03/15/2020) Active Problems Problem Noted Date Anemia 03/11/2020 Anemia, unspecified type 03/11/2020 Overview: Added automatically from request for clemente malu [id number] Melena 03/11/2020 Overview: Added automatically from request for clemente malu [id number] documented as of this encounter (statuses as of 03/15/2020) Immunizations Name Administration Dates Next Due Influenza High Dose 10/31/2018 Influenza Virus Vaccine (3+ yrs) 12/25/2008, 12/12/2007 Pneumococcal Polysaccharide, PPSV23 (PNEUMOVAX) 11/29/2018, 06/21/2010 documented as of this encounter Social History Tobacco Use Types Packs/Day Years Used Date Former Smoker Smokeless Tobacco: Never Used Alcohol Use Drinks/Week oz/Week Comments Yes Sex Assigned at Date Recorded Not on file COVID-19 Exposure Response Date Recorded In the last month, have you been in contact Unable to assess 03/11/2020 4:22 AM SURGICAL SCHEDULER with someone who was confirmed or suspected to have Coronavirus / COVID-19? documented as of this encounter Last Filed Vital Signs Vital Sign Reading Time Taken Comments Blood Pressure 143/73 03/15/2020 11:50 AM SURGICAL SCHEDULER Pulse 101 03/15/2020 11:50 AM SURGICAL SCHEDULER Temperature 36.5 C (97.7 F) 03/15/2020 11:50 AM SURGICAL SCHEDULER Respiratory Rate 18 03/15/2020 11:50 AM SURGICAL SCHEDULER Oxygen Saturation 94% 03/15/2020 11:50 AM SURGICAL SCHEDULER Inhaled Oxygen Concentration - - Weight 89.5 kg (197 lb 4.8 oz) 03/13/2020 10:00 PM SURGICAL SCHEDULER Height 167.6 cm (5' 6") 03/13/2020 10:00 PM SURGICAL SCHEDULER Body Mass Index 31.85 03/13/2020 10:00 PM SURGICAL SCHEDULER documented in this encounter Discharge Instructions AttachmentsThe following attachments cannot be sent through Care Everywhere. About Arrhythmias (Mexican)Pleural Effusion (Mexican)documented in this encounter Progress Notes Sridevi Ch, - 03/14/2020 7:38 AM CST Medicine Progress Note Date of Service: 03/14/2020 07:28 Chief Complaint: anemia 24-HOUR EVENTS: Over 46 PVC a minute on telemetry, multiple alarms overnight Patient asymptomatic SUBJECTIVE: Feeling much better this morning. Breathing has much improved. Still has cough, but less so than previously. PHYSICAL EXAM: Temp: [35.9 C (96.6 F)-37.2 C (98.9 F)] Pulse: [109-130] Resp: [18-21] BP: (129-171)/(63-98) MAP (mmHg): [92-116] Intake/Output Summary (Last 24 hours) at 03/14/2020 0729 Last data filed at 03/14/2020 0410 Gross per 24 hour Intake 600 ml Output 3050 ml Net -2450 ml General: alert and oriented x 4 (person, place, date/time and situation); no apparent distress Lungs: clear to auscultation bilaterally Cardio: irregular rhythm, normal rate, S1, S2 normal; no murmurs, rubs or gallops, Abdomen: soft; non-tender; non-distended; normoactive bowel sounds LABS/IMAGING - reviewed, pertinent results as below: HGB 8.4 Cr 1.13 BNP 2180 ASSESSMENT/PLAN Javan Burrows is a 84 year old male admitted to the hospital with: Acute on chronic anemia,s/p 3U pRBC Iron deficiency anemia Diverticulosis Hx MWT 2/2 alcohol use([facility]) Hx Alcohol abuse Pt presented with anemia, found on recent outpatient labs 5.8 s/p 3U RBC (now 7.6) from outside hospital. Pt ethanol use, previous partial esophageal tears, and recent low iron and hemoglobin indicateda possible GI bleed. Pt had not been taking 81 mg aspirin at home, no other NSAID use. GI consulted,EGD showed no explanation for acute drop in Hgb. US RUQ showed normal hepatic echotexture with patent portal vein. - 2 large bore IVs - pantoprazole 40 mg [id number] - Restart home dose lasix 40mg QD - H/H Q24hr, Hgb stabilized - GI following, appreciate recs: colonoscopy outpatient CAD s/p 3V CABG Recovered HFrEF s/p AICD pAFib Patient with multiple alarms on telemetry, over 46 PVC a minute, and some runs of unsustained V tach. Patient is asymptomatic, but plan to consult EP for device interrogation (patient with AICD). Troponin from .044 to .049, continue to trend and consider starting heparin drip if troponins continue to trend upward. Appeared volume overloaded on examination yesterday and on CXRay. Improved volume status with diuresis. - c/w COREG 3.125 BID - Consult EP - Restart Lasix PO 40mg QD Chronic/stable conditions: DM2 HTN|HLD CKD III PAD s/p R fem-tibioperoneal bypass graft s/pR AKA Former smoker Carotid artery stenosis - Continue current meds and monitoring PAIN: Controlled Tylenol Prophylaxis: DVT- held for possible GIB, start sub-Q heparin today Stress Ulcer: pantoprazole Code Status: addressed: full Disposition Anticipated Discharge Date : Barriers to Discharge: Suspected GI Bleed Sridevi Ch DO Department of Internal Medicine END OF DAILY PROGRESS NOTE HOSPITAL COURSE Javan Burrows is a 84 year old male with a PMH ofCAD s/p 3V CABG, recovered HFrEF s/p AICD, pAFib, DM2, HTN, HLD, CKD III, PAD s/p R fem-tibioperoneal bypass graft s/pR AKA, hx MWT 2/2 alcohol use([facility]),hxalcohol abuse, former smoker, carotid artery stenosis, diverticulosiswho presentsfor anemia. Pts hemoglobin was found at 5.8 at outpatient visit and brought to ER by his son. Pt wasgiven 3 units of packed RBCs. Hemodynamically stable and GI preformed EGD, no findings to explain acute drop in Hgb. Hgb remained stable on subsequent labwork. Patient with multiple PVC's and runs of unsustained V tach on telemetry, EP consulted. CURRENT MEDICATIONS - reviewed. ICAL SCHEDULER Associated attestation - Marito Rios MD - 03/14/2020 7:19 PM CSTAfter discussion with geriatric team, I personally saw and examined this patient with team on 03/14/2020. I agree with Dr. Ch's assessment and plan as written.. I actively participated in decision making plan. See resident's note for detail. April Jaime MD - 03/13/2020 1:16 PM CSTBrief post procedure check: Pt was seen and examined at bedside. EGD performed yesterday showed normal esophagus, normal stomach. Duodenal biopsy showing acute cryptitis however no architectural distortion or villous blunting. Reviewed iron panel, Ferritin is 34, however % transferrin saturation >20, TIBC normal. Also reviewed Vit B12 and folate levels are normal. EGD 03/12/20 - Normal esophagus. - Z-line regular, 41 cm from the incisors. - Normal stomach. - Normal duodenal bulb, first portion of the duodenum and second portion of the duodenum. Biopsied. Path: A. DUODENUM, BIOPSY: - DUODENAL MUCOSA WITH FOCAL NONSPECIFIC ACUTE CRYPTITIS - NO ARCHITECTURAL DISTORTION OR VILLOUS BLUNTING IDENTIFIED Plan: -await pathology results -no indication for repeat EGD -discussed risk vs benefit of completing endoscopic workup such as obtaining colonoscopy as outpatient. Discussed this with the family as well, patient has a GI doctor who did his colonoscopy 5 years ago and they will follow up with them as outpatient Case discussed with attending. GI team will sign off April Jaime MD Gastroenterology and Hepatology PGY-4 Contact info through [facility] [place] alMacie fernando RN - 03/13/2020 8:42 AM CSTI, Marito Rios MD, after reviewing this case with the Compressor [employer] Pellets, I concur this case is appropriate for inpatient admission. The change to inpatient admission is based on the level of care thispatient is receiving, medical necessity, risks associated and the expected duration of stay. The inpatient admission order has been entered. Macie Mccoy, RN, BSN Utilization Review [facility] Office: [phone] ICAL SCHEDULER Associated attestation - Marito Rios MD - 03/14/2020 7:18 PM CSTI agree with this note Marito Rios MD Notch Grinder, Geriatrics Division of Internal Medicine [address] [place] [id number] Sridevi Ch DO - 03/13/2020 7:12 AM SURGICAL SCHEDULER Medicine Progress Note Date of Service: 03/13/2020 07:12 Chief Complaint: anemia 24-HOUR EVENTS: EGD yesterday SUBJECTIVE: Patient with cough and sore throat this morning. No further signs of bleeding that he has noted, buthe has also not had a bowel movement. PHYSICAL EXAM: Temp: [36.7 C (98 F)-37.4 C (99.3 F)] Heart Rate (monitor): [118-125] Pulse: [103-125] Resp: [14-20] BP: (132-168)/(55-105) MAP (mmHg): [83-117] General: alert and oriented x 4 (person, place, date/time and situation); no apparent distress Lungs: clear to auscultation bilaterally Cardio: irregular rhythm, normal rate, S1, S2 normal; no murmurs, rubs or gallops, Abdomen: soft; non-tender; non-distended; normoactive bowel sounds LABS/IMAGING - reviewed, pertinent results as below: HGB 7.7 ASSESSMENT/PLAN Javan Burrows is a 84 year old male admitted to the hospital with: Acute on chronic anemia, s/p 3U pRBC Iron deficiency anemia Diverticulosis Hx MWT 2/2 alcohol use ([facility]) Hx Alcohol abuse Pt presented with anemia, found on recent outpatient labs 5.8 s/p 3U RBC (now 7.6) from outside hospital. Pt ethanol use, previous partial esophageal tears, and recent low iron and hemoglobin indicateda possible GI bleed. Pt had not been taking 81 mg aspirin at home, no other NSAID use. Possible re-esophageal tear, due to EtOH use. Cannot at this time also rule out a lower GI bleed. GI consulted, EGD showed no explanation for acute drop in Hgb. Hold diuretics due to GI bleed. US RUQ showed normal hepatic echotexture with patent portal vein. - 2 large bore IVs - pantoprazole 40 mg [id number] - hold lasix (40 mg BID), consider restarting today - H/H Q8hr - GI following, appreciate recs - EGD yesterday Chronic/stable conditions: CAD s/p 3V CABG Recovered HFrEF s/p AICD pAFib DM2 HTN | HLD CKD III PAD s/p R fem-tibioperoneal bypass graft s/p R AKA Former smoker Carotid artery stenosis - Continue current meds and monitoring PAIN: Controlled Tylenol Prophylaxis: DVT- held for possible GIB Stress Ulcer: pantoprazole Code Status: addressed: full Disposition Anticipated Discharge Date : TBD Barriers to Discharge: Suspected GI Bleed Sridevi Ch DO Department of Internal Medicine END OF DAILY PROGRESS NOTE HOSPITAL COURSE Javan Burrows is a 84 year old male with a PMH of CAD s/p 3V CABG, recovered HFrEF s/p AICD, pAFib, DM2, HTN, HLD, CKD III, PAD s/p R fem-tibioperoneal bypass graft s/p R AKA, hx MWT 2/2 alcohol use ([facility]), hx alcohol abuse, former smoker, carotid artery stenosis, diverticulosis who presents for anemia. Pts hemoglobin was found at 5.8 at outpatient visit and brought to ER by his son. Pt was given3 units of packed RBCs. Hemodynamically stable and plan to consult GI. Awaiting EGD and +/- colonoscopy. CURRENT MEDICATIONS - reviewed. ICAL SCHEDULER Associated attestation - Marito Rios MD - 03/14/2020 7:17 PM CSTAfter discussion with geriatric team, I personally saw and examined this patient with team on 03/13/2020. I agree with Dr. Ch's assessment and plan as written.. I actively participated in decision making plan. See resident's note for detail. Sridevi Ch, - 03/12/2020 6:40 AM SURGICAL SCHEDULER Medicine Progress Note Date of Service: 03/11/2020 09:31 Chief Complaint: anemia 24-HOUR EVENTS: Admitted to Geriatrics SUBJECTIVE: Doing well. No further signs of bleeding. He didn't sleep well because he kept waking up all night. PHYSICAL EXAM: Temp: [35.9 C (96.7 F)-36.6 C (97.8 F)] Pulse: [98-103] Resp: [20-22] BP: (137-161)/(50-59) MAP (mmHg): [79-93] General: alert and oriented x 4 (person, place, date/time and situation); no apparent distress Lungs: clear to auscultation bilaterally Cardio: irregular rhythm, normal rate, S1, S2 normal; no murmurs, rubs or gallops, Abdomen: soft; non-tender; non-distended; normoactive bowel sounds LABS/IMAGING - reviewed, pertinent results as below: HGB 7.6 RUQ US: 1. Patent main portal vein with pulsatile waveform, can be seen with tricuspid regurg. 2. Right pleural effusion. ASSESSMENT/PLAN Javan Burrows is a 84 year old male admitted to the hospital with: Acute on chronic anemia, s/p 3U pRBC Iron deficiency anemia Diverticulosis Hx MWT 2/2 alcohol use ([facility]) Hx Alcohol abuse Pt presented with anemia, found on recent outpatient labs 5.8 s/p 3U RBC (now 7.6) from outside hospital. Pt ethanol use, previous partial esophageal tears, and recent low iron and hemoglobin indicateda possible GI bleed. Pt had not been taking 81 mg aspirin at home, no other NSAID use. Possible re-esophageal tear, due to EtOH use. Cannot at this time also rule out a lower GI bleed. GI consulted, possible EGD. Hold diuretics due to GI bleed. US RUQ showed normal hepatic echotexture with patent portal vein. -2 large bore IVs -pantoprazole 40 mg [id number] - hold lasix ( 40 mg BID) - H/H daily - GI following, appreciate recs - EGD today Chronic/stable conditions: CAD s/p 3V CABG Recovered HFrEF s/p AICD pAFib DM2 HTN | HLD CKD III PAD s/p R fem-tibioperoneal bypass graft s/p R AKA Former smoker Carotid artery stenosis - Continue current meds and monitoring PAIN: Controlled Tylenol Prophylaxis: DVT- held for possible GIB Stress Ulcer: pantoprazole Code Status: addressed: full Disposition Anticipated Discharge Date : TBD Barriers to Discharge: Suspected GI Bleed Sloan Ramirez, MS3 I personally examined the patient on 03/12/20 and have verified Sloan's documentation and/or findings,including the history, physical exam, and medical decision making. Additionally, I have personally performed or re-performed the physical exam and medical decision making activities of this patient's ev aluation and management service. Sridevi Ch DO Department of Internal Medicine END OF DAILY PROGRESS NOTE HOSPITAL COURSE Javan Burrows is a 84 year old male with a PMH of CAD s/p 3V CABG, recovered HFrEF s/p AICD, pAFib, DM2, HTN, HLD, CKD III, PAD s/p R fem-tibioperoneal bypass graft s/p R AKA, hx MWT 2/2 alcohol use ([facility]), hx alcohol abuse, former smoker, carotid artery stenosis, diverticulosis who presents for anemia. Pts hemoglobin was found at 5.8 at outpatient visit and brought to ER by his son. Pt was given3 units of packed RBCs. Hemodynamically stable and plan to consult GI. Awaiting EGD and +/- colonoscopy. CURRENT MEDICATIONS - reviewed. ICAL SCHEDULER Associated attestation - Marito Rios MD - 03/14/2020 7:14 PM CSTAfter discussion with geriatric team, I personally saw and examined this patient with team on 03/12/2020. I agree with Sloan Ramirez MS3 and Dr. Ch's assessment and plan as written.. I actively participated in decision making plan. See resident's note for detail. Clover Soares RN - 03/11/2020 1:00 PM CSTCare Management Social Functional Assessment Patient Name: Javan Burrows Age: [age] year old Sex: male Previous admit date: N/A CM spoke with patient to complete SFA. Role of Care Management explained. Initial CM screening and initial discharge plan established. CM anticipates patient to discharge to prior living situation andto be provided information on after care, medication management, and follow-ups prior to discharge.No discharge barriers identified. Any issues or concerns with obtaining/affording your medications at home: no. Are you or your support system able to fiber picker medications at discharge: yes. Describe: patient/family. Current diagnosis and co-morbidities: Anemia [D64.9] Readmission Questions: Was patient discharged from any acute care hospital within the last 30 days: No Social Functional Assessment: Primary language spoken/preferred: Mexican Mental Status: Alert & Oriented to Person,Place & Time Information given by: Self Patient's support system: Child Name and number of support system: Alec Burrows (son) [phone] Primary Rn Ante Partum: Self Living Arrangement: Home Address of living arrangement : [address] [place] [id number] Persons living in home: Self Barriers to returning home: Declining function Baseline functional status- ambulation: Requires minimal to moderate assistance Functional status-baseline personal care: Requires minimal to moderate assistance Baseline functional status- driving: Requires minimal to moderate assistance Baseline functional status- grocery shopping: Requires minimal to moderate assistance Functional status-baseline housekeeping: Requires minimal to moderate assistance Functional status-baseline meal prep: Requires minimal to moderate assistance Current functional status same as prior: Yes Do you have a PCP?: Yes Name of PCP: Dr. Valle in [place] [facility] Agency: No Provider Services: Yes Provider agency days and hours: 7 days a week DME Company: No Equipment: Wheelchair: Electric;Shower Chair Hemodialysis: No Funding Resources: Medicare A & B Prescription coverage plan: Medicare Part D Pharmacy where meds are filled: Other Other pharmacy: [facility] in [place] Anticipated services prior to disharge: Consult;Continue Medical Eval;EGD;Lab Values;Reassess prior to discharge Expected mode of discharge transportation: Personal vehicle;Same as support system Additional Recommendations for DC: Alec Burrows (cee) [phone] will be providing transportationhome on discharge; Additional info required for discharge planning: Pending medical evaluation Recommended discharge plan: Home SFA Complete: Social Functional Assessment complete: Yes Alcohol Use Screening (AUDIT-C) How often do you have a drink containing alcohol?: Never SCORE: 0 Clover Soares RN, BSN Management Aide [facility]-Care Management [email or web address] Office: [phone] (not for patient use) ICAL SCHEDULER documented in this encounter H&P Notes Shirley Gaona MD - 03/12/2020 12:20 PM CST Endoscopy H & P Age: [age] year old Sex: male ASA Class: III Indication: anemia, dark stool Past Medical History: Diagnosis Date CAD (coronary artery disease) CKD (chronic kidney disease) Diabetes HLD (hyperlipidemia) HTN (hypertension) PAD (peripheral artery disease) Family history of Colon Cancer/Polyps: no Current Facility-Administered Medications Medication Dose Route Frequency Last Rate Last Admin pantoprazole (PROTONIX) 40 mg in NaCl 0.9% (NS) 100 mL MINI-BAG 40 mg IV Piggyback Q12H 40 mgat 03/12/20 0837 acetaminophen (TYLENOL) tablet 650 mg 650 mg Oral Q6HPRN Sliding Scale Insulin - Lispro (HumaLOG) + Fsbg Testing Subcutaneous Q4H 1 Units at No Known Allergies Social History Socioeconomic History Marital status: Spouse name: Not on file Number of children: Not on file Years of education: Not on file Highest education level: Not on file Occupational History Not on file Social Needs Financial resource strain: Not on file Food insecurity Worry: Not on file Inability: Not on file Transportation needs Medical: Not on file Non-medical: Not on file Tobacco Use Smoking status: Former Smoker Smokeless tobacco: Never Used Substance and Sexual Activity Alcohol use: Yes Drug use: Never Sexual activity: Not on file Lifestyle Physical activity Days per week: Not on file Minutes per session: Not on file Stress: Not on file Relationships Social connections Talks on phone: Not on file Gets together: Not on file Attends muslim service: Not on file Active member of club or organization: Not on file Attends meetings of clubs or organizations: Not on file Relationship status: Not on file Intimate partner violence Fear of current or ex partner: Not on file Emotionally abused: Not on file Physically abused: Not on file Forced sexual activity: Not on file Other Topics Concern Not on file Social History Narrative Not on file Mental Status: alert, oriented x3 Chest: clear to auscultation Cardiovascular: regular rate and rythmn Abdomen: bowel sounds present Spleen Tip: non-palpable Hepatomegaly: no Mass: not present Tenderness: no Impression and Plan: 74 year old man with transfusion dependent anemia, dark stool with possible melena. See consult note for complete H&P. Benefits, risks, alternatives, and likelihood of achieving patient's goals of care discussed. Risks discussed including but not limited to aspiration, infection, bleeding, perforation, missed polyps/lesions, failure to obtain a diagnosis, failure to complete the procedure, cardiovascular complications such as ND, stroke, arrhythmia, and . Informed consent obtained/verified. Proceed with EGD. Education provided to the patient and family about the procedure. Shirley Gaona MD Enrollment Representative Division of Gastroenterology and Hepatology [facility] ICAL SCHEDULER documented in this encounter Procedure Notes Danny Rivera RN - 03/11/2020 11:45 AM CSTVascular Access Services Ultrasound Guided Peripheral Intravenous Catheter An ultrasound guided PIV was placed x 2. Labs obtained: no. Patient tolerated procedure well: yes . Complications: no . Poor veinous access. documented in this encounter Consult Notes Apurva Josue, PT - 03/13/2020 12:16 PM CSTAssociated Order(s): CONSULT ADULT PHYSICAL THERAPY Patient agreeable to working with physical therapy. Patient met Semi reclined in bed with 2L O2 perNC in place. PHYSICAL THERAPY EVALUATION Consult received, chart reviewed and evaluation complete this date. Patient is referred to PT for evaluation and treatment. Patient is a 84 year old male who presents to hospital for Anemia [D64.9] with h/o right AKA. Discharge Recommendations: Therapy Needs and Potential: Patient would benefit from continued physical therapy services to address: decline in bed mobility decline in transfers decreased strength decreased endurance Patient demonstrates good potential to improve and meet therapy goals with further physical therapy services. Patient appears motivated to improve their functional mobility and return to their previous levelof function. Patient exhibits limited activity tolerance. Challenges to Home Transition: increased risk of falls decreased caregiver availability Patient requires physical assist with functional mobility Equipment recommendations: wheelchair, patient already owns DME for home use Current Functional Status and/or Treatment:Functional mobility training and Patient/Family/Caregivereducation Patient seen in conjunction with Vivienne Burrows OT due to decreased activity tolerance. Patient with productive cough throughout treatment, MD at bedside. Bed Mobility: Sitting balance Good Supine to sit: Mod assist x2, head of bed elevated Scooting to edge of bed: Moderate assist Sit to supine: max assist x2 Repositioned patient to head of bed: Max assist x2 Patient with decreased static sitting tolerance secondary to c/o dizziness, communicated need to immediately return to bed after ~1 min BP assessed upon returning to supine position 163/80 mmHg, HR 113 bpm, SpO2 97% on 2L per NC Transfers: NT, deferred due to decrease activity tolerance Ambulation: NT, wheelchair dependent at baseline Therapeutic exercise: patient educated in Fall prevention, Relaxation/breathing techniques and Safety awareness., patient/caregiver verbalizes understanding of instructions. After session, patient Semi reclined in bed, left heel offloaded with use of pillow, supplemental O2in place. Call button provided. PLAN OF CARE: At least 2 times per week, once or twice a day (while in hospital) per patient's tolerance and medical needs. See below for complete details. Admit Date: 03/11/2020 Hospital Diagnosis:Anemia [D64.9] PT Diagnosis: Weakness, Dyspnea and Impaired functional mobility Weight Bearing Precaution: NA General Precautions: PPE used:Gloves and N-95 Mask, General, Fall, Droplet isolation, Lines/Tubes,Nam catheter, oxygen: Nasal canula Bracing/Cast present or required:N/A PMH: Past Medical History: Diagnosis Date CAD (coronary artery disease) CKD (chronic kidney disease) Diabetes HLD (hyperlipidemia) HTN (hypertension) PAD (peripheral artery disease) PSH: Past Surgical History: Procedure Laterality Date CABG, ARTERIAL, THREE ESOPHAGOGASTRODUODENOSCOPY N/A 03/12/2020 Surgeon: Shirley Gaona MD; Location: Endoscopy ([facility]) OR Location Prior Living Situation: lives alone, [facility] ADA accessible home DME: Wheel Chair , Electric Wheel Chair, shower chair, ramp, handicapped van Prior level of Mobility: uses electric scooter Subjective: Patient reports modified independent at with all functional task at wheelchair level. Patient son who lives nearby assist as needed. Patient/Family Goals: return to previous level of function Patient/Family verbalizes understanding of condition: Yes PAIN: -Pain Description: aching and phantom pain -Pain Location: right residual limb -Pain rating before treatment: does not rate, After treatment: does not rate -Pain Management: lidocaine patch in place, repositioning provided COMMUNICATION Primary Language: Mexican Able to Verbalize needs: Yes Vision:WFL Hearing:good; no issues reported ORIENTATION/COGNITION: Oriented to: person, place, date/time and situation Awake: Yes Alert: Yes Dizzy: yes, with static sitting at edge of bed Follows Commands: Yes 1-Step Yes Multi-Step Yes Inconsistent: No NEUROLOGICAL Light Touch: within functional limits bilateral LE, Tone: WNL BALANCE: Sitting: Static: Good Dynamic: NT Standing: Static: NT Dynamic: NT RANGE OF MOTION: within functional limits bilateral LE, h/o right transfemoral amputation STRENGTH: 3/5 (F), bilateral LE gross strength ENDURANCE: Poor, Nasal canula SKIN INTEGRITY: Defer to nursing PROBLEM LIST: Decline in bed mobility, Decline in transfers, Decreased strength, Decreased endurance, Decreased balance, decline in wheel chair mobiliity and Pain ASSESSMENT: Patient is a 84 year old male seen secondary to the above listed diagnosis. Patient would benefit from continued PT to address the above listed deficits to maximize independence and safety with functional mobility. Rehabilitation Potential: fair Goals: The following goals are to maximize independence and safety with functional mobility to eventually return to prior living situation and prior functional status. Upon discharge, patient and/or family will demonstrate the followin. Supine-sit: Modified independent 2. Tolerate sitting at edge of bed x 8 min with SBA. 3. Lateral scooting transfer or Squat pivot transfer: Modified independent 4. Demonstrate or verbalize understanding of home exercise program in order to continue with their rehab on their own. Treatment Plan: Therapeutic exercise, Transfer training, Balance training, Bed mobility training, Equipment needs assessment, Safety education, patient/caregiver education, Wheelchair mobility training, Neuromuscular Re- Education and Functional Motor Training PATIENT EDUCATION: Patient provided with preferred teaching of verbal information and demonstration on role of PT, plan of care, treatment benefits, functional mobility, fall prevention and safety. Shows readiness to learn. Verbal instruction teaching provided. Individual is able to read and verbalizes understanding of teaching provided. Apurva Josue PT, DPT Pager Number: [phone] Total time treatments: 17 min Total treatment time: 41 min Celi Gonzalez OT - 03/13/2020 11:30 AM CSTAssociated Order(s): CONSULT ADULT OCCUPATIONAL THERAPY OT GENERAL EVALUATION Consult received via [employer], EMR reviewed and evaluation completed 03/13/20. Patient referred to occupational therapy for evaluation and treatment discharge recommendations. Patient agreeable to participate in occupational therapy. 84 YOM with history of R LE AKA here for anemia with unknown source. Discharge Recommendations: Therapy Needs and Potential:- Patient would benefit from continued skilled occupational therapy services to address: Decline in basic activities of daily living, Decline in instrumental activities of daily living, Decreased strength and Decreased endurance - Patient demonstrates good potential to improve and meet therapy goals with further skilled occupational therapy services. - Patient appears motivated to improve their B/IADLs and return to their previous level of function. - Patient demonstrates ability to tolerate at least 30-60 minutes of active participation in occupational therapy. - Patient able to follow commands: 1-step Yes, Multi-step Yes, Inconsistencies No Challenges to Home Transition:- Requires physical assistance for BADLS - Requires physical assistance for IADLS - Increased risk of falls Equipment Recommendations:None PLAN OF CARE: At least 2x/week Precautions: Weight bearing status: NA General: PPE Utilized: Gloves and N-95 Mask, o2 per nc, droplet Bracing: N/A Current Occupational Performance and/or Treatment: Feeding: Modified independent Grooming: SBA/Setup Functional Mobility: supine to sit-max assist x 2. Patient sat edge of bed briefly while MD listenedto the back side of his chest, but he c/o of severe dizziness and needing to lay down aminta. Patient returned supine and his BP at that time was 163/80(106) and HR 113 BPM. His o2 was 97% on o2 per nc. Patient/caregiver educated on: importance of out of bed, general strengthening, and safety. Patient left semireclining in bed with call foster in reach. Son present. Please, see full evaluation below for more detail. OT EVALUATION: 84 year old male Admit date: 03/11/2020 Date of onset: 03/11/2020 Admit Diagnosis: Anemia [D64.9] OT Diagnosis: Impaired BADL independence, Impaired IADL independence, Weakness, Activity intolerance, Decreased endurance and Impaired self-care mobility PMH: Past Medical History: Diagnosis Date CAD (coronary artery disease) CKD (chronic kidney disease) Diabetes HLD (hyperlipidemia) HTN (hypertension) PAD (peripheral artery disease) PSH: Past Surgical History: Procedure Laterality Date CABG, ARTERIAL, THREE ESOPHAGOGASTRODUODENOSCOPY N/A 03/12/2020 Surgeon: Shirley Gaona MD; Location: Endoscopy ([facility]) OR Location PAIN: Before assessment: 0/10 After assessment: 0/10 Location: states he has phantom limb pain, but has a lidocaine patch on. Pain Management: Repositioning Provided OCCUPATIONAL ROLES/HOME ENVIRONMENT: Home environment: Single story home, ADA accessible. Bathroom access: Yes Bathroom setup: Shower Occupation(s): Retired Function prior to admission: Electric Scooter primary and Modified independent with BADLs Equipment prior to admission: electric wc, shower chair, handicapped van, ramp, home was built ADA PERFORMANCE SKILLS/FACTORS: UE Muscle Tone: bilateral WNL UE ROM: bilateral AROM WFL UE Strength: DARYA UE WFL Hand dominance: right Dexterity/Coordination: bilateral Fine motor skills Intact and bilateral Gross motor skills Intact Endurance - Sitting: Poor Standing: NT Sitting Balance - Static: Poor+ Dynamic: NT Dizziness: Yes Skin Integrity: No breakdown noted Sensation: bilateral Intact to light touch Oral Motor: WFL Communication: Able to verbalize needs Yes Other: N/A Vision: WFL Yes Other: N/A Hearing: good; no issues reported COGNITION: Orientation: person, place, date/time and situation Follows Commands: 1-step Yes Multi-step Yes Inconsistencies No Safety Awareness/Judgment: Good PROBLEM LIST: Decreased independence with ADL, Impaired postural control and Decreased strength/endurance for functional activity REHAB POTENTIAL/PROGNOSIS: good PATIENT/FAMILY GOALS: to return home. TREATMENT/INTERVENTION PLAN: Functional motor treatment, Patient/Caregivier Education, Equipment recommendations, Daily living activities, Therapeutic exercises and Neuromuscular Re-Education GOAL(S): By discharge, patient will increase independence in daily living skills as follows: 1 Patient will perform droparm BSC transfer with SBA/Setup. 2 Patient will perform UB dressing with modified independence. 3 Patient will complete grooming tasks with SBA/Setup while sitting. 4 Patient will increase endurance for functional activity as evidenced by ability to sustain 20 minutes of active participation. 5 Patient/caregiver will verbalize/demonstrate understanding/proficiency in the following home programs: ADL training, Fall prevention and General strengthening PATIENT-FAMILY TEACHING Patient provided with preferred teaching of verbal information on ADL training, Fall prevention and General strengthening. Shows readiness to learn. Verbal instruction teaching provided. Individual is able to read and verbalizes understanding of teaching provided. BRENDA Goncalves Total Timed Treatment Codes: 15 Min Total Treatment Time: 41 Min Patient Complexity Level High - An occupational therapy evaluation of high complexity was completed using the above tests and measures. The following information was obtained: An occupational profile and medical and therapy history, including review of medical and/or therapy records and extensive vicky tional review of physical, cognitive, or psychosocial history related to current functional performance, Various standardized and non-standardized assessments were used to identify at least 5 or more performance deficits related to physical, cognitive, or psychosocial skills that result in activity limitations and/or participation restrictions and Clinical decision-making is of high analytic complexity, which includes an analysis of the patient profile, analysis of data from comprehensive assessment(s), and consideration of multiple treatment options. Patient present with comorbidities that affect occupational performance. Significant modification of tasks or assistance (e.g., physical or verbal) with assessment(s) is necessary to enable patient to complete evaluation component. ICAL SCHEDULER April Jaime MD - 03/11/2020 10:55 AM CST Department of Gastroenterology & Hepatology Consult Note Requesting Physician: Marito Rios MD Service: Medicine Reason for Consultation: anemia Date of Service: 03/11/2020 CHIEF COMPLAINT: Anemia History of Present Illness Javan Burrows is a 84 year old /White male with past medical history of CAD s/p CABG, HFrEF s/p AICD (recovered as per chart), Afib not on AC due to hx of upper GI bleed, CKD III, PAD s/p R fem-tibioperoneal bypass graft s/p R AKA, who is admitted to medicine for anemia after he was found to have a drop in Hgb to 5.8 at an OSH. In 2018, patient had a significant UGIB found to be secondary to Judy Lund Tear and was admitted in [facility], acute respiratory failure/pneumonia requiring intubation and ICU admission. EGD done 05/31/17 showed MWT, HH, gastropathy. Pt has significant ETOH use disorder history with up to 4 rum drinks a day, however stopped drinking 3 years ago. GI consulted to evaluate patient for anemia. Today, patient denies any hematemesis, unsure about color of the stools. He lives at home but requires a caregiver to help him with daily activities. The son is at bedside as well. About 3 weeks ago, patient reports epistaxis about 1/2 cup in amount, was seen in the ED, seen by ENT s/p packing with no complications. Pt reports no abdominal pain. In terms of bowel habits, reports daily bowel movement,no straining, no incomplete emptying. He was prescribed iron supplements recently however he didn't want to take an extra medicine three times a day therefore d/jean claude it. Denies NSAID use. PAST MEDICAL HISTORY Past Medical History: Diagnosis Date CAD (coronary artery disease) CKD (chronic kidney disease) Diabetes HLD (hyperlipidemia) HTN (hypertension) PAD (peripheral artery disease) PAST SURGICAL HISTORY Past Surgical History: Procedure Laterality Date CABG, ARTERIAL, THREE FAMILY HISTORY History reviewed. No pertinent family history. ALLERGIES No Known Allergies MEDICATIONS Reviewed SOCIAL HISTORY Social History Socioeconomic History Marital status: Spouse name: Not on file Number of children: Not on file Years of education: Not on file Highest education level: Not on file Occupational History Not on file Social Needs Financial resource strain: Not on file Food insecurity Worry: Not on file Inability: Not on file Transportation needs Medical: Not on file Non-medical: Not on file Tobacco Use Smoking status: Former Smoker Smokeless tobacco: Never Used Substance and Sexual Activity Alcohol use: Yes Drug use: Never Sexual activity: Not on file Lifestyle Physical activity Days per week: Not on file Minutes per session: Not on file Stress: Not on file Relationships Social connections Talks on phone: Not on file Gets together: Not on file Attends muslim service: Not on file Active member of club or organization: Not on file Attends meetings of clubs or organizations: Not on file Relationship status: Not on file Intimate partner violence Fear of current or ex partner: Not on file Emotionally abused: Not on file Physically abused: Not on file Forced sexual activity: Not on file Other Topics Concern Not on file Social History Narrative Not on file ROS: See h/p PHYSICAL EXAM: BP 137/50 | Pulse 103 | Temp 35.9 C (96.7 F) (Axillary) | Resp 20 | Wt (!) 2 lb 3.3 oz (1 kg) | SpO2 95% Constitutional: comfortable and in no acute distress EENT: no scleral icterus, no conjunctival pallor Cardiovascular: RRR Respiratory: non-labored Gastrointestinal: +BS, soft, non-tender, non-distended CAMILO: formed stool in the rectal vault; dark green in color, no melena, no external hemorrhoids, no masses. MSK: Right AKA Skin: no rash Neurologic: grossly non-focal Psychiatric: normal affect LABORATORY HGB (g/dL) Date Value 03/11/2020 7.5 (L) PLT (10*3/L) Date Value 03/11/2020 148 (L) INR (no units) Date Value 03/11/2020 1.4 Hepatic Function Panel ALBUMIN (g/dL) Date Value 03/11/2020 3.2 (L) T PROTEIN (g/dL) Date Value 03/11/2020 5.7 (L) TOTAL BILI (mg/dL) Date Value 03/11/2020 1.3 (H) BILI UNCON (mg/dL) Date Value 03/11/2020 1.0 BILI CONJ (mg/dL) Date Value 03/11/2020 0.0 ALTv (U/L) Date Value 03/11/2020 14 AST(SGOT) (U/L) Date Value 03/11/2020 24 ALK PHOS (U/L) Date Value 03/11/2020 53 BMP NA (mmol/L) Date Value 03/11/2020 133 (L) K (mmol/L) Date Value 03/11/2020 3.6 CALCIUM (mg/dL) Date Value 03/11/2020 8.3 (L) CL (mmol/L) Date Value 03/11/2020 100 BUN (mg/dL) Date Value 03/11/2020 110 (H) CREATININE (mg/dL) Date Value 03/11/2020 1.28 (H) GLUCOSE (mg/dL) Date Value 03/11/2020 284 (H) CO2 TOTAL (mmol/L) Date Value 03/11/2020 24 RADIOLOGY: PREVIOUS ENDOSCOPY: EGD (05/31/17) = Judy-Lund tear, Hiatal hernia, gastropathy (erythematous) COLONOSCOPY: 5 years ago; no report available ASSESSMENT and PLAN Javan Burrows is a 84 year old /White male with past medical history of CAD s/p CABG, HFrEF s/p AICD (recovered as per chart), Afib not on AC due to hx of upper GI bleed, CKD III, PAD s/p R fem-tibioperoneal bypass graft s/p R AKA, who is admitted to medicine for anemia after he was found to have a drop in Hgb to 5.8 at an OSH. In 2018, patient had a significant UGIB found to be secondary to Judy Lund Tear and was admitted in [facility], acute respiratory failure/pneumonia requiring intubation and ICU admission. EGD done 05/31/17 showed MWT, HH, gastropathy. Pt has significant ETOH use disorder history with up to 4 rum drinks a day, however stopped drinking 3 years ago. GI consulted to evaluate patient for anemia. Pt reports no overt sign of GI bleed. On CAMILO there was formed stool in the rectal vault, which was dark green in color, no external hemorrhoids, no masses. Denies NSAID use.Is not aware of chronic liver disease/cirrhosis hx. Last colonoscopy 5 years ago, patient unsure of results. Normocytic Anemia with Drop in Hgb Microcytic hypochromic Anemia on Diff Hx of ETOH use disorder with gastropathy seen on EGD -etiology include PUD vs esophagitis vs Gastritis. Also will use this opportunity to screen for esophageal varices with patient's hx of gastropathy seen on previous EGD as a sign of portal HTN and low plts 148k, INR 1.4 -Hgb baseline couple of years ago; 7-8, this admission Hgb 5.8 now 7.8 s/p 4 units of PRBC (3 units at OSH) -on arrival patient was tachycardic low 100s, BP stable -Bun/Cr ratio elevated -no NSAID use Plan: -can switch PPI drip to PPI 40 mg IVPB q12 -obtain Abd US with doppler to evaluate for any chronic liver disease changes with patient's historyof significant ETOH use -2 Large bore IVs at all times -monitor H/H daily and transfuse if Hgb <7 -given Vitamin K 10 mg IV x1 -discussed endoscopic evaluation with patient. Will proceed with EGD tomorrow -NPO after midnight Patient was seen and discussed with Dr. Gaona GI will continue to follow. Please call with any questions. April Jaime MD Gastroenterology and Hepatology PGY-4 [facility] signed by Shirley Gaona MD at 03/12/2020 8:03 AM SURGICAL SCHEDULER Associated attestation - Shirley Gaona MD - 03/12/2020 8:03 AM SURGICAL SCHEDULER I personally examined the patient on 03/11/[address] Jaime's fellow note as written .I actively participated in the decision-making process. Please see the fellow's note for additionaldetails. Anemia requiring transfusion. Questionable hx of melena vs iron use effect. Shirley Gaona MD Enrollment Representative Division of Gastroenterology and Hepatology [facility] documented in this encounter Miscellaneous Notes Care Plan - Francie Oneil RN - 03/14/2020 4:26 PM CSTPatient voiding well after nam catheter removal. are Plan - Marilyn Gonzalez RN - 03/14/2020 7:03 AM CSTFsbs q4, monitor labs are Plan - Jonnie Phillips RN - 03/12/2020 11:23 PM SURGICAL SCHEDULER Problem: Bleeding, Risk of Goal: Absence of impaired coagulation signs and symptoms Outcome: Progressing as expected Goal: Absence of active bleeding Outcome: Progressing as expected ursing Note - Lokesh Workman RN - 03/12/2020 2:34 PM CSTPatient resting in bed, no distress. MD Martínez at bedside, ok to d/c patient from PACU. Patient escorted back to room by transportation ursing Note - Verónica Moss RN - 03/12/2020 1:12 PM CSTReport called to nurse Elis Fulton. are Plan - Elis Dickson RN - 03/12/2020 10:55 AM SURGICAL SCHEDULER Problem: Bleeding, Risk of Goal: Absence of impaired coagulation signs and symptoms Outcome: Progressing as expected Goal: Absence of active bleeding Outcome: Progressing as expected are Plan - Shanta Piper RN - 03/11/2020 11:49 PM CST are Plan - Talita Jacobsen RN - 03/11/2020 1:39 PM CST documented in this encounter Plan of Treatment Name Type Priority Associated Diagnoses Order S chedule BASIC METABOLIC PANEL LAB Routine EVERY MORNING AT (NA, K, CL, CO2, 0400 for 7 Days GLUCOSE, BUN, starting 03/11 CREATININE, CA) until 2020, 5 completed EKG-12 LEAD ROUTINE HEART STATION Routine Anemia, unspecified ONCE for 1 ONCE type Occurrences sta rting 03/11/2020 unti l 03/11/2020 Transfusion Reaction LAB Routine FOR FOL LOW-UP Investigation TESTING until discontinued starting 2020 Urinalysis (Spun) LAB Routine FOR FOLLOW -UP TESTING until discontinued starting 2020 MAGNESIUM LAB Routine EVERY 24 HOURS (START TIME ADJUSTABLE) for 4 Days starting 03/13/2020 unti l 03/16/2020, 3 completed Health Maintenance Due Date Last Done Comments DTaP,Tdap,and Td Vaccines (1 - Tdap) 1954 Zoster Recombinant Vaccine (SHINGRIX) 1987 (1 of 2) Medicare Wellness Visit 2002 INFLUENZA VACCINE (#1) 2019 10/31/2018, 12/25/2008, 12/12/2007 Depression Screening 03/12/2021 03/12/2020 PNEUMOCOCCAL VACCINES 65+ Completed 11/29/2018, 06/21/2010 documented as of this encounter Procedures Procedure Name Priority Date/Time Associated Comments Diagnosis POCT GLUCOSE (AUTOMATED) Routine 03/15/2020 Res ults for 8:04 AM SURGICAL SCHEDULER this procedure are in the results section. POCT GLUCOSE (AUTOMATED) Routine 03/15/2020 Res ults for 4:09 AM SURGICAL SCHEDULER this procedure are in the results section. CBC WITH DIFF Routine 03/15/2020 Results for 3:17 AM SURGICAL SCHEDULER this procedure are in the results section. BASIC METABOLIC PANEL (NA, K, Routine 03/15/2020 Results for CL, CO2, GLUCOSE, BUN, 3:17 AM SURGICAL SCHEDULER this CREATININE, CA) procedure ar e in the results section. MAGNESIUM Routine 03/15/2020 Results for 3:17 AM SURGICAL SCHEDULER this procedure are in the results section. POCT GLUCOSE (AUTOMATED) Routine 03/14/2020 Res ults for 11:52 PM SURGICAL SCHEDULER this procedure are in the results section. POCT GLUCOSE (AUTOMATED) Routine 03/14/2020 Res ults for 8:04 PM SURGICAL SCHEDULER this procedure are in the results section. POCT GLUCOSE (AUTOMATED) Routine 03/14/2020 Res ults for 5:22 PM SURGICAL SCHEDULER this procedure are in the results section. POCT GLUCOSE (AUTOMATED) Routine 03/14/2020 Res ults for 1:04 PM SURGICAL SCHEDULER this procedure are in the results section. TROPONIN I Routine 03/14/2020 Results for 11:42 AM SURGICAL SCHEDULER this procedure are in the results section. POCT GLUCOSE (AUTOMATED) Routine 03/14/2020 Res ults for 8:51 AM SURGICAL SCHEDULER this procedure are in the results section. HB ECG ROUTINE & RHYTHM STRIP AMINTA 03/14/2020 V-tach 6:19 AM SURGICAL SCHEDULER CBC WITH DIFF Routine 03/14/2020 Results for 3:57 AM SURGICAL SCHEDULER this procedure are in the results section. BASIC METABOLIC PANEL (NA, K, Routine 03/14/2020 Results for CL, CO2, GLUCOSE, BUN, 3:57 AM SURGICAL SCHEDULER this CREATININE, CA) procedure ar e in the results section. TROPONIN I Routine 03/14/2020 Results for 3:57 AM SURGICAL SCHEDULER this procedure are in the results section. MAGNESIUM Routine 03/14/2020 Results for 3:57 AM SURGICAL SCHEDULER this procedure are in the results section. POCT GLUCOSE (AUTOMATED) Routine 03/14/2020 Res ults for 3:40 AM SURGICAL SCHEDULER this procedure are in the results section. POCT GLUCOSE (AUTOMATED) Routine 03/14/2020 Res ults for 12:23 AM SURGICAL SCHEDULER this procedure are in the results section. HB ECG ROUTINE & RHYTHM STRIP STAT 03/13/2020 V-tach 9:20 PM SURGICAL SCHEDULER BASIC METABOLIC PANEL (NA, K, STAT 03/13/2020 Results for CL, CO2, GLUCOSE, BUN, 9:15 PM SURGICAL SCHEDULER this CREATININE, CA) procedure ar e in the results section. TROPONIN I Routine 03/13/2020 Results for 9:15 PM SURGICAL SCHEDULER this procedure are in the results section. MAGNESIUM STAT 03/13/2020 Results for 9:15 PM SURGICAL SCHEDULER this procedure are in the results section. POCT GLUCOSE (AUTOMATED) Routine 03/13/2020 Res ults for 8:04 PM SURGICAL SCHEDULER this procedure are in the results section. CBC WITH DIFF Routine 03/13/2020 Results for 5:53 PM SURGICAL SCHEDULER this procedure are in the results section. POCT GLUCOSE (AUTOMATED) Routine 03/13/2020 Res ults for 5:01 PM SURGICAL SCHEDULER this procedure are in the results section. XR CHEST 1 VW Routine 03/13/2020 Pleural Results for 1:05 PM SURGICAL SCHEDULER effusion this procedure are in the results section. POCT GLUCOSE (AUTOMATED) Routine 03/13/2020 Res ults for 11:50 AM SURGICAL SCHEDULER this procedure are in the results section. CBC WITH DIFF Routine 03/13/2020 Results for 9:55 AM SURGICAL SCHEDULER this procedure are in the results section. POCT GLUCOSE (AUTOMATED) Routine 03/13/2020 Res ults for 7:53 AM SURGICAL SCHEDULER this procedure are in the results section. N-TERMINAL PRO-BNP Add-on 03/13/2020 Results f or 1:15 AM SURGICAL SCHEDULER this procedure are in the results section. CBC WITH DIFF Routine 03/13/2020 Results for 1:15 AM SURGICAL SCHEDULER this procedure are in the results section. BASIC METABOLIC PANEL (NA, K, Routine 03/13/2020 Results for CL, CO2, GLUCOSE, BUN, 1:15 AM SURGICAL SCHEDULER this CREATININE, CA) procedure ar e in the results section. MAGNESIUM Routine 03/13/2020 Results for 1:15 AM SURGICAL SCHEDULER this procedure are in the results section. POCT GLUCOSE (AUTOMATED) Routine 03/13/2020 Res ults for 12:03 AM SURGICAL SCHEDULER this procedure are in the results section. POCT GLUCOSE (AUTOMATED) Routine 03/12/2020 Res ults for 8:26 PM SURGICAL SCHEDULER this procedure are in the results section. CBC WITH DIFF Routine 03/12/2020 Results for 4:49 PM SURGICAL SCHEDULER this procedure are in the results section. POCT GLUCOSE (AUTOMATED) Routine 03/12/2020 Res ults for 4:35 PM SURGICAL SCHEDULER this procedure are in the results section. SURGICAL PATHOLOGY EXAM STAT 03/12/2020 Resu lts for 12:31 PM SURGICAL SCHEDULER this procedure are in the results section. EGD (ENDO) Routine 03/12/2020 12:17 PM SURGICAL SCHEDULER ESOPHAGOGASTRODUODENOSCOPY Level 4 03/12/2020 Anemia, (within 0-5 12:09 PM SURGICAL SCHEDULER unspecified days) type Melena CBC WITH DIFF Routine 03/12/2020 Results for 9:02 AM SURGICAL SCHEDULER this procedure are in the results section. POCT GLUCOSE (AUTOMATED) Routine 03/12/2020 Res ults for 8:46 AM SURGICAL SCHEDULER this procedure are in the results section. POCT GLUCOSE (AUTOMATED) Routine 03/12/2020 Res ults for 4:18 AM SURGICAL SCHEDULER this procedure are in the results section. CBC WITH DIFF Routine 03/12/2020 Results for 12:32 AM SURGICAL SCHEDULER this procedure are in the results section. BASIC METABOLIC PANEL (NA, K, Routine 03/12/2020 Results for CL, CO2, GLUCOSE, BUN, 12:32 AM SURGICAL SCHEDULER this CREATININE, CA) procedure ar e in the results section. POCT GLUCOSE (AUTOMATED) Routine 03/12/2020 Res ults for 12:21 AM SURGICAL SCHEDULER this procedure are in the results section. POCT GLUCOSE (AUTOMATED) Routine 03/11/2020 Res ults for 7:36 PM SURGICAL SCHEDULER this procedure are in the results section. US ABDOMEN LIMITED WITH DOPPLER STAT 03/11/2020 Anemia, Results for 6:39 PM SURGICAL SCHEDULER unspecified this type procedure are in the results section. POCT GLUCOSE (AUTOMATED) Routine 03/11/2020 Res ults for 4:10 PM SURGICAL SCHEDULER this procedure are in the results section. CBC WITH DIFF Routine 03/11/2020 Results for 3:27 PM SURGICAL SCHEDULER this procedure are in the results section. TROPONIN I Routine 03/11/2020 Results for 3:27 PM SURGICAL SCHEDULER this procedure are in the results section. POCT GLUCOSE (AUTOMATED) Routine 03/11/2020 Res ults for 12:07 PM SURGICAL SCHEDULER this procedure are in the results section. PREPARE PACKED RBC Routine 03/11/2020 Results f or 11:26 AM SURGICAL SCHEDULER this procedure are in the results section. POCT GLUCOSE (AUTOMATED) Routine 03/11/2020 Res ults for 10:22 AM SURGICAL SCHEDULER this procedure are in the results section. ABORH CONFIRMATION Routine 03/11/2020 Results f or 9:52 AM SURGICAL SCHEDULER this procedure are in the results section. URINALYSIS Routine 03/11/2020 Results for 9:47 AM SURGICAL SCHEDULER this procedure are in the results section. HB ABO GROUPING Routine 03/11/2020 Results for 8:12 AM SURGICAL SCHEDULER this procedure are in the results section. ACTIVATED PARTIAL THRMPLAS MIR Routine 03/11/2020 Results for 8:10 AM SURGICAL SCHEDULER this procedure are in the results section. PROTHROMBIN TIME / INR Routine 03/11/2020 Resul ts for 8:10 AM SURGICAL SCHEDULER this procedure are in the results section. XR CHEST 1 VW Routine 03/11/2020 Pleural Results for 7:22 AM SURGICAL SCHEDULER effusion this procedure are in the results section. LAB ONLY COVID INTERPRETATION Routine 03/11/2020 Results for 6:35 AM SURGICAL SCHEDULER this procedure are in the results section. COVID-19 (ID NOW RAPID TESTING) Routine 03/11/2020 Results for 6:35 AM SURGICAL SCHEDULER this procedure are in the results section. N-TERMINAL PRO-BNP Routine 03/11/2020 Results f or 6:27 AM SURGICAL SCHEDULER this procedure are in the results section. IRON PANEL Routine 03/11/2020 Results for 6:27 AM SURGICAL SCHEDULER this procedure are in the results section. BASIC METABOLIC PANEL (NA, K, Routine 03/11/2020 Results for CL, CO2, GLUCOSE, BUN, 6:27 AM SURGICAL SCHEDULER this CREATININE, CA) procedure ar e in the results section. HEPATIC FUNCTION PANEL (06768) Routine 03/11/2020 Results for (ALB,T.PRO,BILI 6:27 AM SURGICAL SCHEDULER this T,BU/BC,ALT,AST,ALK PHOS) pr ocedure are in the results section. TROPONIN I Routine 03/11/2020 Results for 6:27 AM SURGICAL SCHEDULER this procedure are in the results section. HAPTOGLOBIN, SERUM Routine 03/11/2020 Results f or 6:27 AM SURGICAL SCHEDULER this procedure are in the results section. FOLATE Routine 03/11/2020 Results for 6:27 AM SURGICAL SCHEDULER this procedure are in the results section. VITAMIN B12, LEVEL Routine 03/11/2020 Results f or 6:27 AM SURGICAL SCHEDULER this procedure are in the results section. FERRITIN SERUM Routine 03/11/2020 Results for 6:27 AM SURGICAL SCHEDULER this procedure are in the results section. MAGNESIUM Routine 03/11/2020 Results for 6:27 AM SURGICAL SCHEDULER this procedure are in the results section. LACTATE DEHYDROGENASE Routine 03/11/2020 Result s for 6:27 AM SURGICAL SCHEDULER this procedure are in the results section. PHOSPHORUS Routine 03/11/2020 Results for 6:27 AM SURGICAL SCHEDULER this procedure are in the results section. DIFF CONSULT INTERPRETATION Routine 03/11/2020 Results for 6:26 AM SURGICAL SCHEDULER this procedure are in the results section. RETICULOCYTES AUTOMATED Routine 03/11/2020 Resu lts for 6:26 AM SURGICAL SCHEDULER this procedure are in the results section. GLYCOSYLATED HEMOGLOBIN (A1C) Routine 03/11/2020 Results for 6:26 AM SURGICAL SCHEDULER this procedure are in the results section. CBC WITH DIFF Routine 03/11/2020 Results for 6:26 AM SURGICAL SCHEDULER this procedure are in the results section. DIFF CONSULT INTERPRETATION Routine 03/11/2020 Results for 6:26 AM SURGICAL SCHEDULER this procedure are in the results section. HOSPITAL ADMISSION Routine 03/11/2020 12:01 AM SURGICAL SCHEDULER documented in this encounter Results POCT GLUCOSE (AUTOMATED) (03/15/2020 8:04 AM SURGICAL SCHEDULER) Pathologist [facility] POCT GLU 195 (H) 70 - 110 mg/dL [facility] Specimen Blood Performing Organization Address [facility] Phone Number [facility] CLIA: [id number] [place] [address] [place] [address] POCT GLUCOSE (AUTOMATED) (03/15/2020 4:09 AM SURGICAL SCHEDULER) Pathologist [facility] POCT GLU 197 (H) 70 - 110 mg/dL [facility] Specimen Blood Performing Organization Address City/[facility] Phone Number [facility] CLIA: [id number] [place] [address] [place] [address] MAGNESIUM (03/15/2020 3:17 AM SURGICAL SCHEDULER) Pathologist [facility] MAGNESIUM 1.8 1.7 - 2.4 mg/dL [facility] Specimen Blood - ARM, RIGHT Performing Organization Address [facility] [place]/[facility] Phone Number [facility] CLIA: [id number] [place] [address] [place] [address] CBC WITH DIFF (03/15/2020 3:17 AM SURGICAL SCHEDULER) Pathologist Sig [facility] WBC 10.13 4.20 - 10.70 [facility] 10*3/L SERVICES RBC 3.00 (L) 4.26 - 5.52 [facility] 10*6/L SERVICES HGB 8.9 (L) 12.2 - 16.4 [facility] g/dL SERVICES HCT 27.5 (L) 38.4 - 49.3 % [facility] MCV 91.7 81.7 - 95.6 fL [facility] MCH 29.7 26.1 - 32.7 pg [facility] MCHC 32.4 31.2 - 35.0 [facility] g/dL SERVICES RDW-SD 67.0 (H) 38.5 - 51.6 fL [facility] RDW-CV 20.4 (H) 12.1 - 15.4 % [facility] PLT 177 150 - 328 [facility] 10*3/L SERVICES MPV 10.8 9.8 - 13.0 fL [facility] NRBC/100 WBC 0.7 0.0 - 10.0 /100 [facility] WBCs SERVICES NRBC x10^3 0.07 10*3/L [facility] GRAN MAT (NEUT) % 74.3 % [facility] IMM GRAN % 0.40 % [facility] LYMPH % 13.4 % [facility] MONO % 9.7 % [facility] EOS % 1.8 % [facility] BASO % 0.4 % [facility] GRAN MAT x10^3(ANC) 7.53 (H) 1.99 - 6.95 [facility] 10*3/uL SERVICES IMM GRAN x10^3 0.04 0.00 - 0.06 [facility] 10*3/uL SERVICES LYMPH x10^3 1.36 1.09 - 3.23 [facility] 10*3/uL SERVICES MONO x10^3 0.98 0.36 - 1.02 [facility] 10*3/uL SERVICES EOS x10^3 0.18 0.06 - 0.53 [facility] 10*3/uL SERVICES BASO x10^3 0.04 0.01 - 0.09 [facility] 10*3/uL SERVICES Specimen Blood - ARM, RIGHT Performing Organization Address City/State/Zipcode Phone Number [facility] CLIA: [id number] [place] [address] [place] [address] BASIC METABOLIC PANEL (NA, K, CL, CO2, GLUCOSE, BUN, CREATININE, CA) (03/15/2020 3:17 AM SURGICAL SCHEDULER) Pathologist Sig nature NA 136 135 - 145 [facility] mmol/L SERVICES K 3.6 3.5 - 5.0 [facility] mmol/L SERVICES CL 102 98 - 108 mmol/L [facility] CO2 TOTAL 24 23 - 31 mmol/L [facility] AGAP 10 2 - 16 [facility] BUN 50 (H) 7 - 23 mg/dL [facility] GLUCOSE 165 (H) 70 - 110 mg/dL [facility] CREATININE 1.16 0.60 - 1.25 [facility] mg/dL SERVICES CALCIUM 8.6 8.6 - 10.6 [facility] mg/dL SERVICES eGFR Calculation 60.3 mL/min/1.73m2 [facility] (Non- SERVICES [place]) eGFR Calculation 73.1 mL/min/1.73m2 [facility] () SERVICES Specimen Blood - ARM, RIGHT Narrative Performed At Association of Glomerular Filtration Rate (GFR) and St aging [facility] of Kidney Disease* + + +------- ------ + | GFR (mL/min/1.73 m2) | With Kidney Damage | Wi thout Kidney Damage + + +------- ------ + | >90 | Stage one | Normal + + +------- ------ + | 60-89 | Stage two | Decreased GFR + + +------- ------ + | 30-59 | Stage three | Stage three + + +------- ------ + | 15-29 | Stage four | Stage four + + +------- ------ + | <15 (or dialysis) | Stage five | Stage five + + +------- ------ + *Each stage assumes the associated GFR level has been in effect for at least three months. Stages 1 to 5, wit h or without kidney disease, indicate chronic kidney disease. Notes: Determination of stages one and two (with eGFR >59mL/min/1.73 m2) requires estimation of kidney damag e for at least three months as defined by structural or func tional abnormalities of the kidney, manifested by either: Pathological abnormalities or Markers of kidney damage (including abnormalities in the composition of the blo od or urine or abnormalities in imaging tests) . Performing Organization Address City/[facility] Phone Number [facility] CLIA: [id number] [place], [place] [address] [address] [place] [address] POCT GLUCOSE (AUTOMATED) (03/14/2020 11:52 PM SURGICAL SCHEDULER) [facility] POCT GLU 165 (H) 70 - 110 mg/dL [facility] Specimen Blood Performing Organization Address City/[facility] Phone Number [facility] CLIA: [id number] [place], [place] [id number] [address] [place] [address] POCT GLUCOSE (AUTOMATED) (03/14/2020 8:04 PM SURGICAL SCHEDULER) Pathologist [facility] POCT GLU 154 (H) 70 - 110 mg/dL [facility] Specimen Blood Performing Organization Address [facility] [place]/[facility] Phone Number [facility] CLIA: [id number] [place] [address] [address] [facility] POCT GLUCOSE (AUTOMATED) (03/14/2020 5:22 PM SURGICAL SCHEDULER) [facility]ologist [facility] POCT GLU 179 (H) 70 - 110 mg/dL [facility] Specimen Blood Performing Organization Address [facility] [place]/[facility] Phone Number [facility] CLIA: [id number] [place] [address] [address] [facility] POCT GLUCOSE (AUTOMATED) (03/14/2020 1:04 PM SURGICAL SCHEDULER) Pathologist [facility] POCT GLU 279 (H) 70 - 110 mg/dL [facility] Specimen Blood Performing Organization Address [facility] [place]/[facility] Phone Number [facility] CLIA: [id number] [place] [address] [address] [facility] TROPONIN I (03/14/2020 11:42 AM SURGICAL SCHEDULER) Pathologist [facility] TROPONIN I 0.043 (H) <=0.034 ng/mL [facility] Specimen Blood - ARM, LEFT Narrative Performed At Equal or Less than 0.034 ng/ml---Normal [facility] Note: Cardiac troponin begins to rise 3-4 hours after the onset of ischemia. Repeat in 4-6 hours if the sample w as drawn within 3-4 hours of the onset of the symptom and found normal. Between 0.035 and 0.120 ng/mL--- Borderline. Questiona ble myocardial injury or necrosis Note: Serial measurement may be necessary to confirm o r exclude the diagnosis of myocardial injury or necrosis ; Clinical correlation (symptoms, EKGs, imaging studies, and others) required; Repeat in 4-6 hours if clinically indicated. Equal or Higher than 0.121 ng/mL---Abnormal. Myocardia l Injury or Necrosis Likely Biotin has been reported to cause a negative bias, int erpret results relative to patient's use of biotin. Performing Organization Address City/[facility] Phone Number [facility] CLIA: [id number] [place] [address] [place] [address] POCT GLUCOSE (AUTOMATED) (03/14/2020 8:51 AM SURGICAL SCHEDULER) Pathologist Sig [facility] POCT GLU 164 (H) 70 - 110 mg/dL [facility] Specimen Blood Performing Organization Address [facility] Phone Number [facility] CLIA: [id number] [place] [address] [place] [address] [place] TROPONIN I (03/14/2020 3:57 AM SURGICAL SCHEDULER) Pathologist Sig [facility] TROPONIN I 0.049 (H) <=0.034 ng/mL [facility] Specimen Blood - ARM, RIGHT Narrative Performed At Equal or Less than 0.034 ng/ml---Normal [facility] Note: Cardiac troponin begins to rise 3-4 hours after the onset of ischemia. Repeat in 4-6 hours if the sample w as drawn within 3-4 hours of the onset of the symptom and found normal. Between 0.035 and 0.120 ng/mL--- Borderline. Questiona ble myocardial injury or necrosis Note: Serial measurement may be necessary to confirm o r exclude the diagnosis of myocardial injury or necrosis ; Clinical correlation (symptoms, EKGs, imaging studies, and others) required; Repeat in 4-6 hours if clinically indicated. Equal or Higher than 0.121 ng/mL---Abnormal. Myocardia l Injury or Necrosis Likely Biotin has been reported to cause a negative bias, int erpret results relative to patient's use of biotin. Performing Organization Address [facility] [place]/[facility] Phone Number [facility] CLIA: [id number] [place] [address] [place] [address] MAGNESIUM (03/14/2020 3:57 AM SURGICAL SCHEDULER) Pathologist Sig nature MAGNESIUM 2.5 (H) 1.7 - 2.4 mg/dL [facility] Specimen Blood - ARM, RIGHT Performing Organization Address [facility] [place]/[facility] Phone Number [facility] CLIA: [id number] [place] [address] [place] [address] CBC WITH DIFF (03/14/2020 3:57 AM SURGICAL SCHEDULER) [facility] WBC 9.03 4.20 - 10.70 [facility] 10*3/L SERVICES RBC 2.85 (L) 4.26 - 5.52 [facility] 10*6/L SERVICES HGB 8.4 (L) 12.2 - 16.4 [facility] g/dL SERVICES HCT 26.2 (L) 38.4 - 49.3 % [facility] MCV 91.9 81.7 - 95.6 fL [facility] MCH 29.5 26.1 - 32.7 pg [facility] MCHC 32.1 31.2 - 35.0 [facility] g/dL SERVICES RDW-SD 68.3 (H) 38.5 - 51.6 fL [facility] RDW-CV 20.9 (H) 12.1 - 15.4 % [facility] PLT 157 150 - 328 [facility] 10*3/L SERVICES MPV 10.4 9.8 - 13.0 fL [facility] NRBC/100 WBC 2.0 0.0 - 10.0 /100 [facility] WBCs SERVICES NRBC x10^3 0.18 10*3/L [facility] GRAN MAT (NEUT) % 64.5 % [facility] IMM GRAN % 0.40 % [facility] LYMPH % 20.7 % [facility] MONO % 11.3 % [facility] EOS % 2.7 % [facility] BASO % 0.4 % [facility] GRAN MAT x10^3(ANC) 5.82 1.99 - 6.95 [facility] 10*3/uL SERVICES IMM GRAN x10^3 0.04 0.00 - 0.06 [facility] 10*3/uL SERVICES LYMPH x10^3 1.87 1.09 - 3.23 [facility] 10*3/uL SERVICES MONO x10^3 1.02 0.36 - 1.02 [facility] 10*3/uL SERVICES EOS x10^3 0.24 0.06 - 0.53 [facility] 10*3/uL SERVICES BASO x10^3 0.04 0.01 - 0.09 [facility] 10*3/uL SERVICES Specimen Blood - ARM, RIGHT Performing Organization Address City/State/Zipcode Phone Number [facility] CLSHAQUILLE: [id number] [facility] [place] [address] [place] [address] BASIC METABOLIC PANEL (NA, K, CL, CO2, GLUCOSE, BUN, CREATININE, CA) (03/14/2020 3:57 AM SURGICAL SCHEDULER) Pathologist Sig nature NA 132 (L) 135 - 145 [facility] mmol/L SERVICES K 3.7 3.5 - 5.0 [facility] mmol/L SERVICES CL 101 98 - 108 mmol/L [facility] CO2 TOTAL 21 (L) 23 - 31 mmol/L [facility] AGAP 10 2 - 16 [facility] BUN 52 (H) 7 - 23 mg/dL [facility] GLUCOSE 121 (H) 70 - 110 mg/dL [facility] CREATININE 1.13 0.60 - 1.25 [facility] mg/dL SERVICES CALCIUM 8.5 (L) 8.6 - 10.6 [facility] mg/dL SERVICES eGFR Calculation 62.1 mL/min/1.73m2 [facility] (Non- SERVICES [place]) eGFR Calculation 75.3 mL/min/1.73m2 [facility] () SERVICES Specimen Blood - ARM, RIGHT Narrative Performed At Association of Glomerular Filtration Rate (GFR) and St aging [facility] of Kidney Disease* + + +------- ------ + | GFR (mL/min/1.73 m2) | With Kidney Damage | Wi thout Kidney Damage + + +------- ------ + | >90 | Stage one | Normal + + +------- ------ + | 60-89 | Stage two | Decreased GFR + + +------- ------ + | 30-59 | Stage three | Stage three + + +------- ------ + | 15-29 | Stage four | Stage four + + +------- ------ + | <15 (or dialysis) | Stage five | Stage five + + +------- ------ + *Each stage assumes the associated GFR level has been in effect for at least three months. Stages 1 to 5, wit h or without kidney disease, indicate chronic kidney disease. Notes: Determination of stages one and two (with eGFR >59mL/min/1.73 m2) requires estimation of kidney damag e for at least three months as defined by structural or func tional abnormalities of the kidney, manifested by either: Pathological abnormalities or Markers of kidney damage (including abnormalities in the composition of the blo od or urine or abnormalities in imaging tests) . Performing Organization Address City/[facility] Cent[facility] Phone Number [facility] CLIA: [id number] [place] [address] [address] [facility] POCT GLUCOSE (AUTOMATED) (03/14/2020 3:40 AM SURGICAL SCHEDULER) Pathologist Sig nature POCT GLU 124 (H) 70 - 110 mg/dL [facility] Specimen Blood Performing Organization Address [facility] [place]/[facility] Phone Number [facility] CLIA: [id number] [place] [address] [phone] [address] [facility] POCT GLUCOSE (AUTOMATED) (03/14/2020 12:23 AM SURGICAL SCHEDULER) Pathologist Sig nature POCT GLU 137 (H) 70 - 110 mg/dL [facility] Specimen Blood Performing Organization Address [facility] Phone Number [facility] CLIA: [id number] [place] [address] [place] [address] TROPONIN I (03/13/2020 9:15 PM SURGICAL SCHEDULER) Pathologist [facility] TROPONIN I 0.044 (H) <=0.034 ng/mL [facility] Specimen Blood - ARM, RIGHT Narrative Performed At Equal or Less than 0.034 ng/ml---Normal [facility] Note: Cardiac troponin begins to rise 3-4 hours after the onset of ischemia. Repeat in 4-6 hours if the sample w as drawn within 3-4 hours of the onset of the symptom and found normal. Between 0.035 and 0.120 ng/mL--- Borderline. Questiona ble myocardial injury or necrosis Note: Serial measurement may be necessary to confirm o r exclude the diagnosis of myocardial injury or necrosis ; Clinical correlation (symptoms, EKGs, imaging studies, and others) required; Repeat in 4-6 hours if clinically indicated. Equal or Higher than 0.121 ng/mL---Abnormal. Myocardia l Injury or Necrosis Likely Biotin has been reported to cause a negative bias, int erpret results relative to patient's use of biotin. Performing Organization Address [facility] [place]/State/Zipcode Phone Number [facility] CLIA: [id number] [place] [address] [phone] 301 [facility] MAGNESIUM (03/13/2020 9:15 PM SURGICAL SCHEDULER) Pathologist Sig danette MAGNESIUM 1.9 1.7 - 2.4 mg/dL [facility] Specimen Blood - ARM, RIGHT Performing Organization Address [facility] [place]/State/Zipcode Phone Number [facility] CLIA: [id number] [place] [address] [phone] 301 [facility] BASIC METABOLIC PANEL (NA, K, CL, CO2, GLUCOSE, BUN, CREATININE, CA) (03/13/2020 9:15 PM SURGICAL SCHEDULER) Pathologist Sig nature NA 133 (L) 135 - 145 [facility] mmol/L SERVICES K 3.5 3.5 - 5.0 [facility] mmol/L SERVICES CL 102 98 - 108 mmol/L [facility] CO2 TOTAL 22 (L) 23 - 31 mmol/L [facility] AGAP 9 2 - 16 [facility] BUN 55 (H) 7 - 23 mg/dL [facility] GLUCOSE 172 (H) 70 - 110 mg/dL [facility] CREATININE 1.09 0.60 - 1.25 [facility] mg/dL SERVICES CALCIUM 8.5 (L) 8.6 - 10.6 [facility] mg/dL SERVICES eGFR Calculation 64.8 mL/min/1.73m2 [facility] (Non- SERVICES [place]) eGFR Calculation 78.5 mL/min/1.73m2 [facility] () SERVICES Specimen Blood - ARM, RIGHT Narrative Performed At Association of Glomerular Filtration Rate (GFR) and St aging [facility] of Kidney Disease* + + +------- ------ + | GFR (mL/min/1.73 m2) | With Kidney Damage | Wi thout Kidney Damage + + +------- ------ + | >90 | Stage one | Normal + + +------- ------ + | 60-89 | Stage two | Decreased GFR + + +------- ------ + | 30-59 | Stage three | Stage three + + +------- ------ + | 15-29 | Stage four | Stage four + + +------- ------ + | <15 (or dialysis) | Stage five | Stage five + + +------- ------ + *Each stage assumes the associated GFR level has been in effect for at least three months. Stages 1 to 5, wit h or without kidney disease, indicate chronic kidney disease. Notes: Determination of stages one and two (with eGFR >59mL/min/1.73 m2) requires estimation of kidney damag e for at least three months as defined by structural or func tional abnormalities of the kidney, manifested by either: Pathological abnormalities or Markers of kidney damage (including abnormalities in the composition of the blo od or urine or abnormalities in imaging tests) . Performing Organization Address City/[facility]/Zipcode Phone Number [facility] CLIA: [id number] [place] [address] [place] [address] POCT GLUCOSE (AUTOMATED) (03/13/2020 8:04 PM SURGICAL SCHEDULER) [facility] POCT GLU 217 (H) 70 - 110 mg/dL [facility] Specimen Blood Performing Organization Address City/[facility]/Zipcode Phone Number [facility] CLIA: [id number] [place] [address] [place] [address] CBC WITH DIFF (03/13/2020 5:53 PM SURGICAL SCHEDULER) [facility] WBC 9.53 4.20 - 10.70 [facility] 10*3/L SERVICES RBC 2.88 (L) 4.26 - 5.52 [facility] 10*6/L SERVICES HGB 8.5 (L) 12.2 - 16.4 [facility] g/dL SERVICES HCT 26.3 (L) 38.4 - 49.3 % [facility] MCV 91.3 81.7 - 95.6 fL [facility] MCH 29.5 26.1 - 32.7 pg [facility] MCHC 32.3 31.2 - 35.0 [facility] g/dL SERVICES RDW-SD 67.3 (H) 38.5 - 51.6 fL [facility] RDW-CV 21.2 (H) 12.1 - 15.4 % [facility] PLT 159 150 - 328 [facility] 10*3/L SERVICES MPV 10.8 9.8 - 13.0 fL [facility] NRBC/100 WBC 1.6 0.0 - 10.0 /100 [facility] WBCs SERVICES NRBC x10^3 0.15 10*3/L [facility] GRAN MAT (NEUT) % 73.9 % [facility] IMM GRAN % 0.40 % [facility] LYMPH % 14.0 % [facility] MONO % 10.1 % [facility] EOS % 1.4 % [facility] BASO % 0.2 % [facility] GRAN MAT x10^3(ANC) 7.05 (H) 1.99 - 6.95 [facility] 10*3/uL SERVICES IMM GRAN x10^3 0.04 0.00 - 0.06 [facility] 10*3/uL SERVICES LYMPH x10^3 1.33 1.09 - 3.23 [facility] 10*3/uL SERVICES MONO x10^3 0.96 0.36 - 1.02 [facility] 10*3/uL SERVICES EOS x10^3 0.13 0.06 - 0.53 [facility] 10*3/uL SERVICES BASO x10^3 <0.03 0.01 - 0.09 [facility] 10*3/uL SERVICES Specimen Blood - ARM, RIGHT Performing Organization Address City/[facility]/Zipcode Phone Number [facility] CLIA: [id number] [place] [address] [place] [address] POCT GLUCOSE (AUTOMATED) (03/13/2020 5:01 PM SURGICAL SCHEDULER) [facility] POCT GLU 242 (H) 70 - 110 mg/dL [facility] Specimen Blood Performing Organization Address City/[facility]/Zipcoia Phone Number [facility] CLIA: [id number] [place] [address] [place] [address] XR CHEST 1 VW (03/13/2020 1:05 PM SURGICAL SCHEDULER) Specimen Impressions Performed At PACS/VR/DOSE Suspected increase in left pleural effusion and possib le progression of a smaller right effusion with increased at electatic changes. Bibasilar dilated pulmonary vasculature consistent with mild pulmonary congestion. IValerie MD., have reviewed this study and agree with the above report. Narrative Performed At EXAM: XR CHEST 1 VW PACS/VR/DOSE COMPARISON: 03/11/2020 HISTORY: New onset cough, sputum product ion FINDINGS: Lungs: The lungs are well-expanded. Slig ht worsening of heterogeneous airspace opacities at the lung bases and blunted costophrenic and cardiophrenic angles, left greater than right. Heart/Mediastinum: duaICD l leads projec t over the right ventricle. 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 Stable card iomegaly. Bones: Sternotomy wires appear intact. Procedure Note [facility], Radiant Results Inft User - 2020 3:33 PM SURGICAL SCHEDULER EXAM: XR CHEST 1 VW COMPARISON: 03/11/2020 HISTORY: New onset cough, sputum product ion FINDINGS: Lungs: The lungs are well-expanded. Slig ht worsening of heterogeneous airspace opacities at the lung bases and blunted costophrenic and cardiophrenic angles, left greater than right. Heart/Mediastinum: duaICD l leads projec t over the right ventricle. 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 Stable card iomegaly. Bones: Sternotomy wires appear intact. IMPRESSION Suspected increase in left pleural effus ion and possible progression of a smaller right effusion with increased at electatic changes. Bibasilar dilated pulmonary vasculature consistent with mild pulmonary congestion. IValerie MD., have revie wed this study and agree with the above report. Performing Organization Address City/State/Zipcode Phone Number PACS/VR/DOSE POCT GLUCOSE (AUTOMATED) (03/13/2020 11:50 AM SURGICAL SCHEDULER) Pathologist [facility] POCT GLU 161 (H) 70 - 110 mg/dL [facility] Specimen Blood Performing Organization Address City/[facility]/Zipcode Phone Number [facility] CLIA: [id number] [place] [id number] [address] [place] [address] CBC WITH DIFF (03/13/2020 9:55 AM SURGICAL SCHEDULER) Pathologist [facility] WBC 10.14 4.20 - 10.70 [facility] 10*3/L SERVICES RBC 2.80 (L) 4.26 - 5.52 [facility] 10*6/L SERVICES HGB 8.2 (L) 12.2 - 16.4 [facility] g/dL SERVICES HCT 25.5 (L) 38.4 - 49.3 % [facility] MCV 91.1 81.7 - 95.6 fL [facility] MCH 29.3 26.1 - 32.7 pg [facility] MCHC 32.2 31.2 - 35.0 [facility] g/dL SERVICES RDW-SD 68.4 (H) 38.5 - 51.6 fL [facility] RDW-CV 21.3 (H) 12.1 - 15.4 % [facility] PLT 147 (L) 150 - 328 [facility] 10*3/L SERVICES MPV 11.2 9.8 - 13.0 fL [facility] NRBC/100 WBC 1.0 0.0 - 10.0 /100 [facility] WBCs SERVICES NRBC x10^3 0.10 10*3/L [facility] GRAN MAT (NEUT) % 73.1 % [facility] IMM GRAN % 0.40 % [facility] LYMPH % 14.0 % [facility] MONO % 10.4 % [facility] EOS % 1.7 % [facility] BASO % 0.4 % [facility] GRAN MAT x10^3(ANC) 7.42 (H) 1.99 - 6.95 [facility] 10*3/uL SERVICES IMM GRAN x10^3 0.04 0.00 - 0.06 [facility] 10*3/uL SERVICES LYMPH x10^3 1.42 1.09 - 3.23 [facility] 10*3/uL SERVICES MONO x10^3 1.05 (H) 0.36 - 1.02 [facility] 10*3/uL SERVICES EOS x10^3 0.17 0.06 - 0.53 [facility] 10*3/uL SERVICES BASO x10^3 0.04 0.01 - 0.09 [facility] 10*3/uL SERVICES Specimen Blood - ARM, LEFT Performing Organization Address City/State/Zipcode Phone Number [facility] CLIA: [id number] [place] [address] [place] [address] POCT GLUCOSE (AUTOMATED) (03/13/2020 7:53 AM SURGICAL SCHEDULER) Pathologist Sig nature POCT GLU 179 (H) 70 - 110 mg/dL [facility] Specimen Blood Performing Organization Address City/[facility]/Zipcode Phone Number [facility] CLIA: [id number] [place] [address] [place] [address] N-TERMINAL PRO-BNP (03/13/2020 1:15 AM SURGICAL SCHEDULER) Pathologist [facility] NT-proBNP 2,180 (H) <=450 pg/mL [facility] Specimen Blood - LINE, VENOUS Narrative Performed At [facility] has been reported to cause a negative bias, int erpret [facility] results relative to patient's use of biotin. Performing Organization Address City/State/Zipcode Phone Number [facility] CLIA: [id number] [place] [address] [place] [address] MAGNESIUM (03/13/2020 1:15 AM SURGICAL SCHEDULER) Pathologist Sig [facility] MAGNESIUM 2.1 1.7 - 2.4 mg/dL [facility] Specimen Blood - LINE, VENOUS Performing Organization Address City/[facility] Phone Number [facility] CLIA: [id number] [place] [address] [place] [address] CBC WITH DIFF (03/13/2020 1:15 AM SURGICAL SCHEDULER) Pathologist Sig [facility] WBC 8.78 4.20 - 10.70 [facility] 10*3/L SERVICES RBC 2.64 (L) 4.26 - 5.52 [facility] 10*6/L SERVICES HGB 7.7 (L) 12.2 - 16.4 [facility] g/dL SERVICES HCT 24.1 (L) 38.4 - 49.3 % [facility] MCV 91.3 81.7 - 95.6 fL [facility] MCH 29.2 26.1 - 32.7 pg [facility] MCHC 32.0 31.2 - 35.0 [facility] g/dL SERVICES RDW-SD 67.1 (H) 38.5 - 51.6 fL [facility] RDW-CV 21.1 (H) 12.1 - 15.4 % [facility] PLT 140 (L) 150 - 328 [facility] 10*3/L SERVICES MPV 11.4 9.8 - 13.0 fL [facility] NRBC/100 WBC 0.8 0.0 - 10.0 /100 [facility] WBCs SERVICES NRBC x10^3 0.07 10*3/L [facility] GRAN MAT (NEUT) % 64.8 % [facility] IMM GRAN % 0.50 % [facility] LYMPH % 20.3 % [facility] MONO % 11.4 % [facility] EOS % 2.5 % [facility] BASO % 0.5 % [facility] GRAN MAT x10^3(ANC) 5.70 1.99 - 6.95 [facility] 10*3/uL SERVICES IMM GRAN x10^3 0.04 0.00 - 0.06 [facility] 10*3/uL SERVICES LYMPH x10^3 1.78 1.09 - 3.23 [facility] 10*3/uL SERVICES MONO x10^3 1.00 0.36 - 1.02 [facility] 10*3/uL SERVICES EOS x10^3 0.22 0.06 - 0.53 [facility] 10*3/uL SERVICES BASO x10^3 0.04 0.01 - 0.09 [facility] 10*3/uL SERVICES Specimen Blood - LINE, VENOUS Performing Organization Address City/State/Zipcode Phone Number [facility] CLIA: [id number] [place] [address] [place] [address] BASIC METABOLIC PANEL (NA, K, CL, CO2, GLUCOSE, BUN, CREATININE, CA) (03/13/2020 1:15 AM SURGICAL SCHEDULER) [facility] nature NA 136 135 - 145 [facility] mmol/L SERVICES K 3.5 3.5 - 5.0 [facility] mmol/L SERVICES CL 104 98 - 108 mmol/L [facility] CO2 TOTAL 24 23 - 31 mmol/L [facility] AGAP 8 2 - 16 [facility] BUN 60 (H) 7 - 23 mg/dL [facility] GLUCOSE 138 (H) 70 - 110 mg/dL [facility] CREATININE 1.09 0.60 - 1.25 [facility] mg/dL SERVICES CALCIUM 8.2 (L) 8.6 - 10.6 [facility] mg/dL SERVICES eGFR Calculation 64.8 mL/min/1.73m2 [facility] (Non- SERVICES [place]) eGFR Calculation 78.5 mL/min/1.73m2 [facility] () SERVICES Specimen Blood - LINE, VENOUS Narrative Performed At Association of Glomerular Filtration Rate (GFR) and St aging [facility] of Kidney Disease* + + +------- ------ + | GFR (mL/min/1.73 m2) | With Kidney Damage | Wi thout Kidney Damage + + +------- ------ + | >90 | Stage one | Normal + + +------- ------ + | 60-89 | Stage two | Decreased GFR + + +------- ------ + | 30-59 | Stage three | Stage three + + +------- ------ + | 15-29 | Stage four | Stage four + + +------- ------ + | <15 (or dialysis) | Stage five | Stage five + + +------- ------ + *Each stage assumes the associated GFR level has been in effect for at least three months. Stages 1 to 5, wit h or without kidney disease, indicate chronic kidney disease. Notes: Determination of stages one and two (with eGFR >59mL/min/1.73 m2) requires estimation of kidney damag e for at least three months as defined by structural or func tional abnormalities of the kidney, manifested by either: Pathological abnormalities or Markers of kidney damage (including abnormalities in the composition of the blo od or urine or abnormalities in imaging tests) . Performing Organization Address City/[facility] Phone Number [facility] CLIA: [id number] [place] [address] [place] [address] POCT GLUCOSE (AUTOMATED) (03/13/2020 12:03 AM SURGICAL SCHEDULER) Pathologist Sig [employer] POCT GLU 165 (H) 70 - 110 mg/dL [facility] Specimen Blood Performing Organization Address [facility] Phone Number [facility] CLIA: [id number] [place] [address] [place] [address] POCT GLUCOSE (AUTOMATED) (03/12/2020 8:26 PM SURGICAL SCHEDULER) Pathologist Sig [employer] POCT GLU 212 (H) 70 - 110 mg/dL [facility] Specimen Blood Performing Organization Address [facility] Phone Number [facility] CLIA: [id number] [place] [address] [phone] 301 [facility] CBC WITH DIFF (03/12/2020 4:49 PM SURGICAL SCHEDULER) Pathologist Sig nature WBC 9.29 4.20 - 10.70 [facility] 10*3/L SERVICES RBC 2.84 (L) 4.26 - 5.52 [facility] 10*6/L SERVICES HGB 8.3 (L) 12.2 - 16.4 [facility] g/dL SERVICES HCT 25.9 (L) 38.4 - 49.3 % [facility] MCV 91.2 81.7 - 95.6 fL [facility] MCH 29.2 26.1 - 32.7 pg [facility] MCHC 32.0 31.2 - 35.0 [facility] g/dL SERVICES RDW-SD 69.0 (H) 38.5 - 51.6 fL [facility] RDW-CV 21.6 (H) 12.1 - 15.4 % [facility] PLT 160 150 - 328 [facility] 10*3/L SERVICES MPV 12.0 9.8 - 13.0 fL [facility] NRBC/100 WBC 0.5 0.0 - 10.0 /100 [facility] WBCs SERVICES NRBC x10^3 0.05 10*3/L [facility] GRAN MAT (NEUT) % 76.3 % [facility] IMM GRAN % 0.30 % [facility] LYMPH % 12.3 % [facility] MONO % 9.7 % [facility] EOS % 1.0 % [facility] BASO % 0.4 % [facility] GRAN MAT x10^3(ANC) 7.09 (H) 1.99 - 6.95 [facility] 10*3/uL SERVICES IMM GRAN x10^3 0.03 0.00 - 0.06 [facility] 10*3/uL SERVICES LYMPH x10^3 1.14 1.09 - 3.23 [facility] 10*3/uL SERVICES MONO x10^3 0.90 0.36 - 1.02 [facility] 10*3/uL SERVICES EOS x10^3 0.09 0.06 - 0.53 [facility] 10*3/uL SERVICES BASO x10^3 0.04 0.01 - 0.09 [facility] 10*3/uL SERVICES Specimen Blood - ARM, LEFT Performing Organization Address City/State/Zipcode Phone Number [facility] CLIA: [id number] [place] [address] [phone] 301 [facility] POCT GLUCOSE (AUTOMATED) (03/12/2020 4:35 PM SURGICAL SCHEDULER) Pathologist Damián samaniego POCT GLU 225 (H) 70 - 110 mg/dL [facility] Specimen Blood Performing Organization Address City/State/Zipcode Phone Number [facility] CLIA: [id number] [place] [address] [place] [address] SURGICAL PATHOLOGY EXAM (03/12/2020 12:31 PM SURGICAL SCHEDULER) Case Report Surgical Pathology Case: [id number] [facility] Authorizing Provider: Shirley Pena MD Collected: 03/12/2020 1231 SERVICES Ordering Location: GI Endoscopy OR Department Received: 03/12/2020 1348 Pathologist: Aretha Boston MD Specimen: DUODENUM, Duo denal BX to evaluate for Celiac Final Diagnosis [facility] Electroni trisha Carmichael DUODENUM, BIOPSY: SERVICES signed by Aretha Boston, - DUODENAL MUCOSA WITH FOCAL NONSPECIFIC ACUTE CR YPTITIS on 03/13/2020 at - NO ARCHITECTURAL DISTORTION OR VILLOUS BLUNTING IDENTIFIED 11:28 AM I have personally reviewed a ll specimens/slides and agree with all statements made by residents, fellows or pathologist assistants whose name(s) may appear on this report. Clinical 84 y/o with anemia [facility] Information 1. Duodenal BX to evaluate for Celiac SER VICES Gross Description Specimen A is received in [facility] labeled with the patient's name, number, "duodenum, duodenal BX to evaluate for Celiac" and consists of four irregular kwong-pink soft tissue fragments (0.1 - 0.2 cm [facility] in greatest dimension, 0.4 x 0.2 x 0.1 cm in aggregate). The specimen is filtered through a biopsy bag and submitted in toto in A1. [employer] BRITO Student [employer]i BRITO ([facility]) Embedded Images [facility] Specimen Tissue - DUODENUM Performing Organization Address City/State/Zipcode Phone Number [facility] CLIA: [id number] [place] [address] [phone] 301 [facility] CBC WITH DIFF (03/12/2020 9:02 AM SURGICAL SCHEDULER) Pathologist Sig nature WBC 8.38 4.20 - 10.70 [facility] 10*3/L SERVICES RBC 2.61 (L) 4.26 - 5.52 [facility] 10*6/L SERVICES HGB 7.6 (L) 12.2 - 16.4 [facility] g/dL SERVICES HCT 23.1 (L) 38.4 - 49.3 % [facility] MCV 88.5 81.7 - 95.6 fL [facility] MCH 29.1 26.1 - 32.7 pg [facility] MCHC 32.9 31.2 - 35.0 [facility] g/dL SERVICES RDW-SD 65.5 (H) 38.5 - 51.6 fL [facility] RDW-CV 21.3 (H) 12.1 - 15.4 % [facility] PLT 128 (L) 150 - 328 [facility] 10*3/L SERVICES MPV 10.9 9.8 - 13.0 fL [facility] NRBC/100 WBC 0.7 0.0 - 10.0 /100 [facility] WBCs SERVICES NRBC x10^3 0.06 10*3/L [facility] GRAN MAT (NEUT) % 69.9 % [facility] IMM GRAN % 0.60 % [facility] LYMPH % 15.6 % [facility] MONO % 10.7 % [facility] EOS % 2.7 % [facility] BASO % 0.5 % [facility] GRAN MAT x10^3(ANC) 5.85 1.99 - 6.95 [facility] 10*3/uL SERVICES IMM GRAN x10^3 0.05 0.00 - 0.06 [facility] 10*3/uL SERVICES LYMPH x10^3 1.31 1.09 - 3.23 [facility] 10*3/uL SERVICES MONO x10^3 0.90 0.36 - 1.02 [facility] 10*3/uL SERVICES EOS x10^3 0.23 0.06 - 0.53 [facility] 10*3/uL SERVICES BASO x10^3 0.04 0.01 - 0.09 [facility] 10*3/uL SERVICES Specimen Blood - ARM, LEFT Performing Organization Address City/State/Zipcode Phone Number [facility] CLIA: [id number] [place] [address] 301 [facility] POCT GLUCOSE (AUTOMATED) (03/12/2020 8:46 AM SURGICAL SCHEDULER) Pathologist Sig nature POCT GLU 184 (H) 70 - 110 mg/dL [facility] Specimen Blood Performing Organization Address [facility] Phone Number [facility] CLIA: [id number] [place] [address] [phone] 301 [facility] POCT GLUCOSE (AUTOMATED) (03/12/2020 4:18 AM SURGICAL SCHEDULER) Pathologist Sig [facility] POCT GLU 197 (H) 70 - 110 mg/dL [facility] Specimen Blood Performing Organization Address [facility] Phone Number [facility] CLIA: [id number] [place] [address] [phone] 301 [facility] CBC WITH DIFF (03/12/2020 12:32 AM SURGICAL SCHEDULER) Pathologist Sig nature WBC 7.75 4.20 - 10.70 [facility] 10*3/L SERVICES RBC 2.63 (L) 4.26 - 5.52 [facility] 10*6/L SERVICES HGB 7.6 (L) 12.2 - 16.4 [facility] g/dL SERVICES HCT 23.4 (L) 38.4 - 49.3 % [facility] SERVICES MCV 89.0 81.7 - 95.6 fL [facility] SERVICES MCH 28.9 26.1 - 32.7 pg [facility] MCHC 32.5 31.2 - 35.0 [facility] g/dL SERVICES RDW-SD 64.1 (H) 38.5 - 51.6 fL [facility] SERVICES RDW-CV 20.8 (H) 12.1 - 15.4 % [facility] SERVICES PLT 138 (L) 150 - 328 [facility] 10*3/L SERVICES MPV 11.2 9.8 - 13.0 fL [facility] SERVICES NRBC/100 WBC 0.5 0.0 - 10.0 /100 [facility] WBCs SERVICES NRBC x10^3 0.04 10*3/L [facility] [facility] GRAN MAT (NEUT) % 67.7 % [facility] IMM GRAN % 0.60 % [facility] LYMPH % 18.2 % [facility] MONO % 10.5 % [facility] EOS % 2.6 % [facility] BASO % 0.4 % [facility] GRAN MAT x10^3(ANC) 5.25 1.99 - 6.95 [facility] 10*3/uL SERVICES IMM GRAN x10^3 0.05 0.00 - 0.06 [facility] 10*3/uL SERVICES LYMPH x10^3 1.41 1.09 - 3.23 [facility] 10*3/uL SERVICES MONO x10^3 0.81 0.36 - 1.02 [facility] 10*3/uL SERVICES EOS x10^3 0.20 0.06 - 0.53 [facility] 10*3/uL SERVICES BASO x10^3 0.03 0.01 - 0.09 [facility] 10*3/uL SERVICES Specimen Blood - VENOUS Performing Organization Address City/State/Zipcode Phone Number [facility] CLIA: [id number] [place] [address] [place] [address] BASIC METABOLIC PANEL (NA, K, CL, CO2, GLUCOSE, BUN, CREATININE, CA) (03/12/2020 12:32 AM SURGICAL SCHEDULER) Pathologist Sig nature NA 132 (L) 135 - 145 [facility] mmol/L SERVICES K 3.6 3.5 - 5.0 [facility] mmol/L SERVICES CL 103 98 - 108 mmol/L [facility] CO2 TOTAL 24 23 - 31 mmol/L [facility] AGAP 5 2 - 16 [facility] BUN 89 (H) 7 - 23 mg/dL [facility] GLUCOSE 256 (H) 70 - 110 mg/dL [facility] CREATININE 1.13 0.60 - 1.25 [facility] mg/dL SERVICES CALCIUM 8.1 (L) 8.6 - 10.6 [facility] mg/dL SERVICES eGFR Calculation 62.1 mL/min/1.73m2 [facility] (Non- SERVICES Wall[place]ian) eGFR Calculation 75.3 mL/min/1.73m2 [facility] () SERVICES Specimen Blood - VENOUS Narrative Performed At Association of Glomerular Filtration Rate (GFR) and St aging [facility] of Kidney Disease* + + +------- ------ + | GFR (mL/min/1.73 m2) | With Kidney Damage | Wi thout Kidney Damage + + +------- ------ + | >90 | Stage one | Normal + + +------- ------ + | 60-89 | Stage two | Decreased GFR + + +------- ------ + | 30-59 | Stage three | Stage three + + +------- ------ + | 15-29 | Stage four | Stage four + + +------- ------ + | <15 (or dialysis) | Stage five | Stage five + + +------- ------ + *Each stage assumes the associated GFR level has been in effect for at least three months. Stages 1 to 5, wit h or without kidney disease, indicate chronic kidney disease. Notes: Determination of stages one and two (with eGFR >59mL/min/1.73 m2) requires estimation of kidney damag e for at least three months as defined by structural or func tional abnormalities of the kidney, manifested by either: Pathological abnormalities or Markers of kidney damage (including abnormalities in the composition of the blo od or urine or abnormalities in imaging tests) . Performing Organization Address [facility] Phone Number [facility] CLIA: [id number] [place] [address] [phone] 301 [facility] POCT GLUCOSE (AUTOMATED) (03/12/2020 12:21 AM SURGICAL SCHEDULER) Pathologist [facility] POCT GLU 298 (H) 70 - 110 mg/dL [facility] Specimen Blood Performing Organization Address [facility] Phone Number [facility] CLIA: [id number] [place], [place] [address] 301 [facility] POCT GLUCOSE (AUTOMATED) (03/11/2020 7:36 PM SURGICAL SCHEDULER) Pathologist [facility] POCT GLU 209 (H) 70 - 110 mg/dL [facility] Specimen Blood Performing Organization Address [facility] Phone Number [facility] CLIA: [id number] [place], [place] [address] 301 [facility] US ABDOMEN LIMITED WITH DOPPLER (03/11/2020 6:39 PM SURGICAL SCHEDULER) Specimen Impressions Performed At PACS/VR/DOSE 1. Patent main portal vein with pulsat ile waveform, can be seen with tricuspid regurg or right heart strain. 2. Right pleural effusion. IRobbie MD., have reviewed thi s study and agree with the above report. Narrative Performed At EXAM: US ABDOMEN LIMITED WITH DOPPLER PACS/VR/DOSE HISTORY: 84 years-old Male with anemia . TECHNIQUE: Limited abdominal ultrasound was performed focused on the liver, biliary system, pancreas and spleen. Sue n portal vein was evaluated with color and spectral Doppler imaging. County Judge tameka ges were obtained for the record. COMPARISON: None FINDINGS: LIVER: Length: 16.5 cm. Parenchyma: Normal hepatic echogenicity and echotextur e. No focal lesion is detected. Portal vein: Hepatopetal flow present in the main portal vein. MPV diameter: 0.7 cm. MPV velocity: 37.3 cm/s. With pulsatile waveform. GALLBLADDER: Prior cholecystectomy. BILE DUCTS: No intra- or extrahepatic biliary dilata tion.. Common Duct diameter: 3 mm. PANCREAS: The visualized portion of the pancreas appears unremarkable. SPLEEN: The spleen is normal in size. The spleen measures 8.8 cm. No focal lesions in the spleen. AORTA: Abdominal aorta is normal in caliber whe re visualized. Diameter of the proximal abdominal aorta is 1.5 cm. IVC: IVC is normal in appearance where visual ized. OTHER: Right pleural effusion. Procedure Note [facility], Radiant Results Inft User - 2020 10:27 AM SURGICAL SCHEDULER EXAM: US ABDOMEN LIMITED WITH DOPPLER HISTORY: 84 years-old Male with anemia . TECHNIQUE: Limited abdominal ultrasound was performed focused on the liver, biliary system, pancreas and spleen. Sue n portal vein was evaluated with color and spectral Doppler imaging. Repr esentative images were obtained for the record. COMPARISON: None FINDINGS: LIVER: Length: 16.5 cm. Parenchyma: Normal hepatic echogenicity and echotexture. No focal lesion is detected. Portal vein: Hepatopetal flow present in the main portal vein. MPV diameter: 0.7 cm. MPV velocity: 37.3 cm/s. With pulsatile waveform. GALLBLADDER: Prior cholecystectomy. BILE DUCTS: No intra- or extrahepatic biliary dilata tion.. Common Duct diameter: 3 mm. PANCREAS: The visualized portion of the pancreas appears unremarkable. SPLEEN: The spleen is normal in size. The spleen measures 8.8 cm. No focal lesions in the spleen. AORTA: Abdominal aorta is normal in caliber whe re visualized. Diameter of the proximal abdominal aorta is 1.5 cm. IVC: IVC is normal in appearance where visual ized. OTHER: Right pleural effusion. IMPRESSION 1. Patent main portal vein with pulsati le waveform, can be seen with tricuspid regurg or right heart strain. 2. Right pleural effusion. I, Robbie Gillespie MD., have reviewed thi s study and agree with the above report. Performing Organization Address City/State/Zipcode Phone Number PACS/VR/DOSE POCT GLUCOSE (AUTOMATED) (03/11/2020 4:10 PM SURGICAL SCHEDULER) Pathologist [facility] POCT GLU 251 (H) 70 - 110 mg/dL [facility] Specimen Blood Performing Organization Address City/[facility]/Zipcode Phone Number [facility] CLIA: [id number] [place] [address] [place] [address] CBC WITH DIFF (03/11/2020 3:27 PM SURGICAL SCHEDULER) [facility] [employer] WBC 8.12 4.20 - 10.70 [facility] 10*3/L SERVICES RBC 2.69 (L) 4.26 - 5.52 [facility] 10*6/L SERVICES HGB 7.8 (L) 12.2 - 16.4 [facility] g/dL SERVICES HCT 23.7 (L) 38.4 - 49.3 % [facility] MCV 88.1 81.7 - 95.6 fL [facility] MCH 29.0 26.1 - 32.7 pg [facility] MCHC 32.9 31.2 - 35.0 [facility] g/dL SERVICES RDW-SD 62.3 (H) 38.5 - 51.6 fL [facility] RDW-CV 20.3 (H) 12.1 - 15.4 % [facility] PLT 128 (L) 150 - 328 [facility] 10*3/L SERVICES MPV 10.7 9.8 - 13.0 fL [facility] NRBC/100 WBC 0.6 0.0 - 10.0 /100 [facility] WBCs SERVICES NRBC x10^3 0.05 10*3/L [facility] GRAN MAT (NEUT) % 70.8 % [facility] IMM GRAN % 0.50 % [facility] LYMPH % 15.5 % [facility] MONO % 11.1 % [facility] EOS % 1.7 % [facility] BASO % 0.4 % [facility] GRAN MAT x10^3(ANC) 5.75 1.99 - 6.95 [facility] 10*3/uL SERVICES IMM GRAN x10^3 0.04 0.00 - 0.06 [facility] 10*3/uL SERVICES LYMPH x10^3 1.26 1.09 - 3.23 [facility] 10*3/uL SERVICES MONO x10^3 0.90 0.36 - 1.02 [facility] 10*3/uL SERVICES EOS x10^3 0.14 0.06 - 0.53 [facility] 10*3/uL SERVICES BASO x10^3 0.03 0.01 - 0.09 [facility] 10*3/uL SERVICES Specimen Blood - ARM, LEFT Performing Organization Address [facility] Cent[facility]ode Phone Number [facility] CLIA: [id number] [place] [id number] [address] [place] [address] TROPONIN I (03/11/2020 3:27 PM SURGICAL SCHEDULER) Pathologist Sig nature TROPONIN I 0.017 <=0.034 ng/mL [facility] Specimen Blood - ARM, LEFT Narrative Performed At Equal or Less than 0.034 ng/ml---Normal [facility] Note: Cardiac troponin begins to rise 3-4 hours after the onset of ischemia. Repeat in 4-6 hours if the sample w as drawn within 3-4 hours of the onset of the symptom and found normal. Between 0.035 and 0.120 ng/mL--- Borderline. Questiona ble myocardial injury or necrosis Note: Serial measurement may be necessary to confirm o r exclude the diagnosis of myocardial injury or necrosis ; Clinical correlation (symptoms, EKGs, imaging studies, and others) required; Repeat in 4-6 hours if clinically indicated. Equal or Higher than 0.121 ng/mL---Abnormal. Myocardia l Injury or Necrosis Likely Biotin has been reported to cause a negative bias, int erpret results relative to patient's use of biotin. Performing Organization Address [facility] Centercode Phone Number [facility] CLIA: [id number] [place] [address] [place] [address] POCT GLUCOSE (AUTOMATED) (03/11/2020 12:07 PM SURGICAL SCHEDULER) Pathologist [facility] nature POCT GLU 284 (H) 70 - 110 mg/dL [facility] Specimen Blood Performing Organization Address [facility]/[employer] Phone Number [facility] CLIA: [id number] [place] [address] [place] [address] Prepare Packed RBC (in units), 1 Units (03/11/2020 11:26 AM SURGICAL SCHEDULER) [facility] Cross Match Result Compatible LAB ISBT Blood Type Code 0600 LAB Unit Blood Type A Neg LAB Unit Number [id number] LAB Blood Expiration Date & LAB Time Status Information Issued LAB Product Identification Red Blood Cells LAB Product Code [id number] LAB Comment: Performed at [facility] Laboratory Services - [facility] Blood [place] [address] Toll Free: [phone] CLIA No. [id number] Specimen Performing Organization Address City/[facility]/Zipcode Phone Number [facility] LAB POCT GLUCOSE (AUTOMATED) (03/11/2020 10:22 AM SURGICAL SCHEDULER) Pathologist [facility] POCT GLU 300 (H) 70 - 110 mg/dL [facility] Specimen Blood Performing Organization Address [facility] Centercode Phone Number [facility] CLIA: [id number] [place] [address] [place] [address] ABORH CONFIRMATION (03/11/2020 9:52 AM SURGICAL SCHEDULER) Pathologist [facility] ABO & RH A Negative LAB Comment: Performed at [facility] Laboratory Services - [facility] Blood [place] [address] Toll Free: [phone] CLIA No. [id number] Specimen Performing Organization Address City/[facility]/Zipcode Phone Number [facility] LAB URINALYSIS (03/11/2020 9:47 AM SURGICAL SCHEDULER) [facility] APPEARANCE Clear Clear [facility] COLOR Yellow Yellow [facility] PH 5.0 4.8 - 8.0 [facility] SP GRAVITY 1.011 1.003 - 1.030 [facility] GLU U QUAL Normal Normal [facility] BLOOD NegativeComment: Negative [facility] INTERFERENCE FROM SERVICES ASCORBIC ACID MAY CAUSE FALSE NEGATIVE RESULT KETONES Negative Negative [facility] PROTEIN Negative Negative [facility] UROBILIN Normal Normal [facility] BILIRUBIN Negative Negative [facility] NITRITE Negative Negative [facility] LEUK BRYCE 500/uL (A) Negative [facility] RBC/HPF 1 0 - 3 HPF [facility] WBC/HPF 38 (H) 0 - 5 HPF [facility] BACTERIA Negative Negative [facility] MUCOUS Slight (A) Negative LPF [facility] WBC CLUMPS 3 (H) <=1 HPF [facility] Specimen Urine - URINE, CATHETERIZED Performing Organization Address City/[facility]/Zipcode Phone Number [facility] CLIA: [id number] [place] [address] [place] [address] Type and Screen - ONCE Routine (03/11/2020 8:12 AM SURGICAL SCHEDULER) Pathologist Sig nature ABO & RH A NEGATIVE LAB Comment: Performed at [facility] Laboratory Services - [facility] Blood [place] [address] Toll Free: [phone] CLIA No. [id number] IAT Negative LAB Comment: Performed at [facility] Laboratory Services - [facility] Blood [place] [address] Toll Free: [phone] CLIA No. [id number] Specimen Blood - VENOUS Performing Organization Address City/[facility]/Zipcode Phone Number [facility] LAB ACTIVATED PARTIAL THRMPLAS MIR (03/11/2020 8:10 AM SURGICAL SCHEDULER) Pathologist Sig nature APTT Patient 23 (L) 26 - 36 Seconds [facility] Specimen Blood - ARM, RIGHT Performing Organization Address City/[facility]/Zipcode Phone Number [facility] CLIA: [id number] [place] [address] [place] [address] PROTHROMBIN TIME / INR (03/11/2020 8:10 AM SURGICAL SCHEDULER) PROTIME PATIENT 15.6 (H) 10.1 - 12.6 [facility] Seconds SERVICES INR 1.4Comment: Normal [facility] INR <1.1; Warfarin SERVICES Therapeutic range 2.0 to 3.0 or 2.5 to 3.5, depending upon the indications. Specimen Blood - ARM, RIGHT Performing Organization Address City/State/Zipcode Phone Number [facility] CLIA: [id number] [facility] [place] [address] [place] [address] XR CHEST 1 VW (03/11/2020 7:22 AM SURGICAL SCHEDULER) Specimen Narrative Performed At This result has an attachment that is no t available. EXAM: XR CHEST 1 VW PACS/VR/DOSE HISTORY: pleural effusion COMPARISON: None. FINDINGS: The heart is slightly enlarged to the left. The tip of the single pacemaker electrode is in the apex of the right ventricle. A sma ll amount of pleural fluid partly obscures the left hemidiaphragm and the l eft costophrenic angle. The lungs are well expanded and clear otherwise . Procedure Note [facility], Radiant Results Inft User - 2020 9:33 AM SURGICAL SCHEDULER EXAM: XR CHEST 1 VW HISTORY: pleural effusion COMPARISON: None. FINDINGS: The heart is slightly enlarged to the le ft. The tip of the single pacemaker electrode is in the apex of the right ve ntricle. A small amount of pleural fluid partly obscures the left hemidiaph ragm and the left costophrenic angle. The lungs are well expanded and c lear otherwise. Performing Organization Address City/[facility]/Zipcode Phone Number PACS/VR/DOSE LAB ONLY COVID INTERPRETATION (03/11/2020 6:35 AM SURGICAL SCHEDULER) COVID DMT Interpretation/Recommendations: [facility] Interpretation SERVICES Molecular NAAT Tests for Active Infection with the ROHIT S-CoV-2 Virus: This result indicates that t he patient has tested negative on one occasion for the SARS-CoV-2 virus that causes COVID-19 illness. This most likely indicates that the patient does not have an active infe ction with the SARS-CoV-2 vi jose angel. However, infection is not completely ruled out as the false negative rate for molecular NAAT testing using a nasopharyngeal sample can be up to 30%, mostly dependent on the timing of sample collect ion in relation to illness onset and any deficiencies in sampling techniques. If the patient has symptoms concerning for COVID-19 illness, a repeat NAAT test (PCR, Rapid ID N ow, etc.) should be performe d, at which time the SARS-CoV-2 virus - if present - may have reached a detectable viral load (usually peaking by the end of the first week of symptoms). Tests for IgM and/or IgG Antibodies to SARS-CoV-2 Viru s: Testing for IgM and IgG anti bodies 1-3 weeks after illness onset will indicate whether the patient has produced antibodies to the virus. At this time, it is not known if the production of antibodies - s pecifically IgG antibodies - indicates whether the patient is immune to future infections with the SARS-CoV-2 virus. Interpretation Result Comments: These interpretation comment s are based upon all COVID-19 testing the patient has had at [facility], including molecular NAAT testing (more commonly known as PCR testing and Rapid ID Now testing) and antibody testing. It does not take i nto account any testing that a patient has had outside of the [facility] medical record. COVID Results SARS-CoV-2 Rapid ID NOW (no units) [facility] Date Value SERVICES 03/11/2020 Not Detected Specimen Swab - NASOPHARYNGEAL SWAB Performing Organization Address City/State/Zipcode Phone Number [facility] CLIA: [id number] [place] [address] [place] [address] COVID-19 (ID NOW RAPID TESTING) (03/11/2020 6:35 AM SURGICAL SCHEDULER) SARS-CoV-2 Rapid ID Not Detected Not Detected [facility] NOW SERVICES Specimen Swab - NASOPHARYNGEAL SWAB Narrative Performed At ID NOW COVID-19 Assay is an isothermal nucleic acid [facility] amplification test intended for the qualitative detect ion of nucleic acid from SARS-CoV-2 viral RNA in nasopharynge al (DRILL PRESS SET UP OPERATOR RADIAL) specimens. It is used under Emergency Use Authori zation (EUA) by FDA. The limit of detection (LOD) of the assa y is 125 Genome Equivalents/mL. A positive result is indicative of the presence of SARS-CoV-2 RNA. Clinical correlation with patient hi story and other diagnostic information is necessary to deter mine patient infection status. A negative (Not Detected) result does not preclude SARS-CoV-2 infection. In patients with clinical sympto ms and other tests that are consistent with SARS-CoV-2 infect ion, negative results should be treated as presumptive nega tive and a new specimen should be tested with alternative P CR molecular test. Invalid: Please collect a new specimen for repeat ang ent testing if clinically indicated. Performing Organization Address City/State/Zipcode Phone Number [facility] CLIA: [id number] [place] [address] [place] [address] N-TERMINAL PRO-BNP (03/11/2020 6:27 AM SURGICAL SCHEDULER) Pathologist [facility] nature NT-proBNP 1,680 (H) <=450 pg/mL [facility] SERVICES Specimen Blood - ARM, RIGHT Narrative Performed At [facility] has been reported to cause a negative bias, int erpret [facility] results relative to patient's use of biotin. Performing Organization Address City/State/[facility] Phone Number [facility] CLIA: [id number] [place] [address] [place] [address] TROPONIN I (03/11/2020 6:27 AM SURGICAL SCHEDULER) [facility] nature TROPONIN I 0.016 <=0.034 ng/mL [facility] Specimen Blood - ARM, RIGHT Narrative Performed At Equal or Less than 0.034 ng/ml---Normal [facility] Note: Cardiac troponin begins to rise 3-4 hours after the onset of ischemia. Repeat in 4-6 hours if the sample w as drawn within 3-4 hours of the onset of the symptom and found normal. Between 0.035 and 0.120 ng/mL--- Borderline. Questiona ble myocardial injury or necrosis Note: Serial measurement may be necessary to confirm o r exclude the diagnosis of myocardial injury or necrosis ; Clinical correlation (symptoms, EKGs, imaging studies, and others) required; Repeat in 4-6 hours if clinically indicated. Equal or Higher than 0.121 ng/mL---Abnormal. Myocardia l Injury or Necrosis Likely Biotin has been reported to cause a negative bias, int erpret results relative to patient's use of biotin. Performing Organization Address City/[facility]/Zipcode Phone Number [facility] CLIA: [id number] [place] [address] [place] [address] PHOSPHORUS (03/11/2020 6:27 AM SURGICAL SCHEDULER) Pathologist Sig nature PHOSPHORUS 3.2 2.5 - 5.0 mg/dL [facility] Specimen Blood - ARM, RIGHT Performing Organization Address [facility] Phone Number [facility] CLIA: [id number] [place] [address] [phone] 301 [facility] MAGNESIUM (03/11/2020 6:27 AM SURGICAL SCHEDULER) Pathologist Sig nature MAGNESIUM 2.5 (H) 1.7 - 2.4 mg/dL [facility] Specimen Blood - ARM, RIGHT Performing Organization Address [facility] Phone Number [facility] CLIA: [id number] [place] [address] [place] [address] LACTATE DEHYDROGENASE (03/11/2020 6:27 AM SURGICAL SCHEDULER) Pathologist Sig nature LDH 389 300 - 600 U/L [facility] Specimen Blood - ARM, RIGHT Performing Organization Address [facility] Phone Number [facility] [facility] CLIA: [id number] [place] [address] [place] [address] FOLATE (03/11/2020 6:27 AM SURGICAL SCHEDULER) Pathologist Sig nature FOLATE SER 5.8 3.0 - 20.0 ng/mL [facility] Specimen Blood - ARM, RIGHT Performing Organization Address [facility] [place]/[facility] Phone Number [facility] CLIA: [id number] [place] [address] [place] [address] FERRITIN SERUM (03/11/2020 6:27 AM SURGICAL SCHEDULER) Pathologist Sig nature FERRITIN 34.8 18.0 - 464.0 ng/mL [facility] ES Specimen Blood - ARM, RIGHT Narrative Performed At Biotin has been reported to cause a negative bias, int erpret [facility] results relative to patient's use of biotin. Performing Organization Address City/[facility] Phone Number [facility] CLIA: [id number] [place] [address] [place] [address] HAPTOGLOBIN, SERUM (03/11/2020 6:27 AM SURGICAL SCHEDULER) Pathologist Sig [facility] HAPTOGLOB 127 16 - 200 mg/dL [facility] Specimen Blood - ARM, RIGHT Performing Organization Address [facility] [place]/[facility] Phone Number [facility] CLIA: [id number] [place] [address] [place] [address] VITAMIN B12, LEVEL (03/11/2020 6:27 AM SURGICAL SCHEDULER) Pathologist [facility] VIT B12 353 240 - 930 pg/mL [facility] Specimen Blood - ARM, RIGHT Narrative Performed At Biotin has been reported to cause a positive bias, int erpret [facility] results relative to patient's use of biotin. Performing Organization Address [facility] [place]/[facility] Phone Number [facility] CLIA: [id number] [place] [address] [place] [address] IRON PANEL (03/11/2020 6:27 AM SURGICAL SCHEDULER) Pathologist [facility] IRON 72 50 - 160 ug/dL [facility] TIBC 340 250 - 410 ug/dL [facility] % FE SAT 21 20 - 50 % [facility] Specimen Blood - ARM, RIGHT Performing Organization Address [facility] Phone Number [facility] CLIA: [id number] [place] [address] [place] [address] HEPATIC FUNCTION PANEL ([id number]) (ALB,T.PRO,BILI T,BU/BC,ALT,AST,ALK PHOS) (03/11/2020 6:27 AM SURGICAL SCHEDULER) Pathologist Sig [facility] TOTAL BILI 1.3 (H) 0.1 - 1.1 mg/dL [facility] BILI UNCON 1.0 0.1 - 1.1 mg/dL [facility] BILI CONJ 0.0 0.0 - 0.3 mg/dL [facility] T PROTEIN 5.7 (L) 6.3 - 8.2 g/dL [facility] ALBUMIN 3.2 (L) 3.5 - 5.0 g/dL [facility] ALK PHOS 53 34 - 122 U/L [facility] ALTv 14 5 - 50 U/L [facility] AST(SGOT) 24 13 - 40 U/L [facility] Specimen Blood - ARM, RIGHT Performing Organization Address City/State/Zipcode Phone Number [facility] CLIA: [id number] [place] [address] [place] [address] BASIC METABOLIC PANEL (NA, K, CL, CO2, GLUCOSE, BUN, CREATININE, CA) (03/11/2020 6:27 AM SURGICAL SCHEDULER) NA 133 (L) 135 - 145 [facility] mmol/L SERVICES K 3.6 3.5 - 5.0 [facility] mmol/L SERVICES CL 100 98 - 108 mmol/L [facility] CO2 TOTAL 24 23 - 31 mmol/L [facility] AGAP 9 2 - 16 [facility] BUN 110 (H) 7 - 23 mg/dL [facility] GLUCOSE 284 (H) 70 - 110 mg/dL [facility] CREATININE 1.28 (H) 0.60 - 1.25 [facility] mg/dL SERVICES CALCIUM 8.3 (L) 8.6 - 10.6 [facility] mg/dL SERVICES eGFR Calculation 53.8 mL/min/1.73m2 [facility] (Non- SERVICES [place]) eGFR Calculation 65.2 mL/min/1.73m2 [facility] () SERVICES Specimen Blood - ARM, RIGHT Narrative Performed At [employer] of Glomerular Filtration Rate (GFR) and St aging [facility] of Kidney Disease* + + +------- ------ + | GFR (mL/min/1.73 m2) | With Kidney Damage | Wi thout Kidney Damage + + +------- ------ + | >90 | Stage one | Normal + + +------- ------ + | 60-89 | Stage two | Decreased GFR + + +------- ------ + | 30-59 | Stage three | Stage three + + +------- ------ + | 15-29 | Stage four | Stage four + + +------- ------ + | <15 (or dialysis) | Stage five | Stage five + + +------- ------ + *Each stage assumes the associated GFR level has been in effect for at least three months. Stages 1 to 5, wit h or without kidney disease, indicate chronic kidney disease. Notes: Determination of stages one and two (with eGFR >59mL/min/1.73 m2) requires estimation of kidney damag e for at least three months as defined by structural or func tional abnormalities of the kidney, manifested by either: Pathological abnormalities or Markers of kidney damage (including abnormalities in the composition of the blo od or urine or abnormalities in imaging tests) . Performing Organization Address [facility] [place]/[facility] Phone Number [facility] CLIA: [id number] [place] [address] [place] [address] DIFF CONSULT INTERPRETATION (03/11/2020 6:26 AM SURGICAL SCHEDULER) Specimen Blood - ARM, RIGHT Narrative Performed At LYMPHOCYTES ARE SMALL AND MATURE WITHOUT ABNORMAL LYMP HOID [facility] CELLS IDENTIFIED. NEUTROPHILS APPEAR NORMAL MORPHOLOGI TRISHA. 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 EXCLUDE HEMOLYSIS. PLATELETS ARE NORMAL. Performing Organization Address [facility] [place]/[facility] Phone Number [facility] CLIA: [id number] [place] [address] [place] [address] GLYCOSYLATED HEMOGLOBIN (A1C) (03/11/2020 6:26 AM SURGICAL SCHEDULER) Pathologist Sig nature HGB A1C 6.6 (H) 4.0 - 6.0 % [facility] Specimen Blood - ARM, RIGHT Performing Organization Address [facility] [place]/[facility] Phone Number [facility] CLIA: [id number] [place] [address] [place] [address] CBC WITH DIFF (03/11/2020 6:26 AM SURGICAL SCHEDULER) Pathologist Sig nature WBC 8.11 4.20 - 10.70 [facility] 10*3/L SERVICES RBC 2.55 (L) 4.26 - 5.52 [facility] 10*6/L SERVICES HGB 7.5 (L) 12.2 - 16.4 [facility] g/dL SERVICES HCT 23.0 (L) 38.4 - 49.3 % [facility] MCV 90.2 81.7 - 95.6 fL [facility] MCH 29.4 26.1 - 32.7 pg [facility] MCHC 32.6 31.2 - 35.0 [facility] g/dL SERVICES RDW-SD 65.1 (H) 38.5 - 51.6 fL [facility] RDW-CV 20.4 (H) 12.1 - 15.4 % [facility] PLT 148 (L) 150 - 328 [facility] 10*3/L SERVICES MPV 10.1 9.8 - 13.0 fL [facility] NRBC/100 WBC 0.7 0.0 - 10.0 /100 [facility] WBCs SERVICES NRBC x10^3 0.06 10*3/L [facility] GRAN MAT (NEUT) % 69.3 % [facility] IMM GRAN % 0.70 % [facility] LYMPH % 17.3 % [facility] MONO % 10.5 % [facility] EOS % 1.7 % [facility] BASO % 0.5 % [facility] GRAN MAT x10^3(ANC) 5.62 1.99 - 6.95 [facility] 10*3/uL SERVICES IMM GRAN x10^3 0.06 0.00 - 0.06 [facility] 10*3/uL SERVICES LYMPH x10^3 1.40 1.09 - 3.23 [facility] 10*3/uL SERVICES MONO x10^3 0.85 0.36 - 1.02 [facility] 10*3/uL SERVICES EOS x10^3 0.14 0.06 - 0.53 [facility] 10*3/uL SERVICES BASO x10^3 0.04 0.01 - 0.09 [facility] 10*3/uL SERVICES Specimen Blood - ARM, RIGHT Performing Organization Address City/State/Zipcode Phone Number [facility] CLIA: [id number] [place], [place] [address] [address] [place] [address] RETICULOCYTES AUTOMATED (03/11/2020 6:26 AM SURGICAL SCHEDULER) Pathologist Sig nature RETIC Count 4.16 (H) 0.59 - 2.24 % [facility] Automated SERVICES RETIC Absolute 0.1061 0.0260 - 0.1170 [facility] Count 10*6/L SERVICES IRF % 42.20 (H) 2.00 - 19.10 % [facility] RETIC-HE 33.1 27.3 - 36.4 pg [facility] Specimen Blood - ARM, RIGHT Performing Organization Address City/State/Zipcode Phone Number [facility] CLIA: [id number] REINALDO GARCIA [address] [place] [address] documented in this encounter Visit Diagnoses Diagnosis Pleural effusion Unspecified pleural effusion Anemia, unspecified type Melena Blood in stool V-tach Paroxysmal ventricular tachycardia documented in this encounter Administered Medications Medication Order MAR Action Action Date Dose Rate Site acetaminophen (TYLENOL) tablet Given 03/13/2020 12:01 AM SURGICAL SCHEDULER 650 mg 650 mg 650 mg, Oral, Q6HPRN, Starting Mon03/11/20 at 0609, Until Discontinued, Routine, Pain (scale 1-3) Given 03/12/2020 4:33 PM SURGICAL SCHEDULER 650 mg benzocaine-menthoL (CEPACOL SORE THROAT (LYNDSEY-MEN)) lozenge 1 Lozenge 1 Lozenge, Oral, Q4HPRN, Starting 06/26 at 0748, Until Discontinued, Routine, Sore throat benzonatate (TESSALON PERLES) capsule 10 0 mg Given 03/14/2020 8:19 AM SURGICAL SCHEDULER 100 mg 100 mg, Oral, Q6HPRN, Starting Janelle 03/12/20 at 2218, Until Discontinued, Routine, Cough Given 03/13/2020 8:27 AM SURGICAL SCHEDULER 100 mg Given 03/13/2020 12:01 AM SURGICAL SCHEDULER 100 mg carvediloL (COREG) tablet 6.25 mg Given 03/15/2020 8:18 AM SURGICAL SCHEDULER 6.25 mg 6.25 mg, Oral, BID MEALS, First dose (after last modification) on 03/15/20 at 0800, Until Discontinued, Routine furosemide (LASIX) tablet 40 mg Given 03/15/2020 8:18 AM SURGICAL SCHEDULER 40 mg 40 mg, Oral, BID, First dose (after last modification) on 03/14/20 at 2000, Until Discontinued, Routine Given 03/14/2020 7:54 PM SURGICAL SCHEDULER 40 mg guaiFENesin 100 mg/5 mL solution 400 mg Given 03/15/2020 8:19 AM SURGICAL SCHEDULER 400 mg 400 mg, Oral, Q4H, First dose on 03/14/20 at 2000, Until Discontinued, Routine Given 03/15/2020 3:11 AM SURGICAL SCHEDULER 400 mg Given 03/14/2020 7:54 PM SURGICAL SCHEDULER 400 mg heparin (porcine) injection Given 03/15/2020 8:18 AM SURGICAL SCHEDULER 5,000 Units Abdomen-SC 5,000 Units 5,000 Units, Subcutaneous, BID, First dose on 03/14/20 at 0800, Until Discontinued, Routine Given 03/14/2020 8:19 AM SURGICAL SCHEDULER 5,000 Units Abdo men-SC pantoprazole (PROTONIX) EC tablet 40 mg Given 03/15/2020 8:19 AM SURGICAL SCHEDULER 40 mg 40 mg, Oral, BID, First dose on Mon03/15/20 at 0800, Until Discontinued, Routine Sliding Scale Insulin - Lispro Given 03/15/2020 8:19 AM SURGICAL SCHEDULER 1 U nits Abdomen-SC (HumaLOG) + Fsbg Testing Subcutaneous, Q4H, First dose on Mon03/11/20 at 0945, Until Discontinued, Routine Given 03/14/2020 5:39 PM SURGICAL SCHEDULER 1 Units Abdo men-SC Given 03/14/2020 1:06 PM SURGICAL SCHEDULER 3 Units Abdo men-SC Medication Order MAR Action Action Date Dose Rate Site carvediloL (COREG) tablet 3.125 Given 03/14/2020 5:41 PM SURGICAL SCHEDULER 3. 125 mg mg 3.125 mg, Oral, BID MEALS, First dose on Mon03/13/20 at 0930, Until Discontinued, Routine Given 03/14/2020 8:19 AM SURGICAL SCHEDULER 3.125 mg Given 03/13/2020 4:33 PM SURGICAL SCHEDULER 3.125 mg carvediloL (COREG) tablet 3.125 mg Given 03/14/2020 5:41 PM SURGICAL SCHEDULER 3.125 mg 3.125 mg, Oral, ONCE, 1 dose, 03/14/20 at 1730, Routine furosemide (LASIX) injection 40 mg Given 03/13/2020 12:30 PM SURGICAL SCHEDULER 40 mg 40 mg, Slow IV Push, ONCE, 1 dose, Mon03/13/20 at 1315, Routine furosemide (LASIX) injection 40 mg Given 03/13/2020 4:33 PM SURGICAL SCHEDULER 40 mg 40 mg, Slow IV Push, ONCE, 1 dose, Mon03/13/20 at 1700, Routine furosemide (LASIX) tablet 40 mg Given 03/14/2020 9:36 AM SURGICAL SCHEDULER 40 mg 40 mg, Oral, DAILY, First dose on 03/14/20 at 0915, Until Discontinued, Routine guaiFENesin (FENESIN IR) tablet 400 mg Given 03/14/2020 5:41 PM SURGICAL SCHEDULER 400 mg 400 mg, Oral, Q4H, First dose on Mon03/13/20 at 0800, Until Discontinued, Routine Given 03/14/2020 1:06 PM SURGICAL SCHEDULER 400 mg Given 03/14/2020 8:19 AM SURGICAL SCHEDULER 400 mg KCL (KLOR-CON M20) tablet 40 mEq Given 03/13/2020 4:50 AM SURGICAL SCHEDULER 40 mEq 40 mEq, Oral, ONCE, 1 dose, Mon03/13/20 at 0445, Routine KCL (KLOR-CON M20) tablet 40 mEq Given 03/13/2020 11:18 PM SURGICAL SCHEDULER 40 mEq 40 mEq, Oral, ONCE, 1 dose, 03/14/20 at 0000, Routine KCL (KLOR-CON M20) tablet 40 mEq Given 03/14/2020 10:34 AM SURGICAL SCHEDULER 40 mEq 40 mEq, Oral, ONCE, 1 dose, 03/14/20 at 0630, Routine KCL (KLOR-CON M20) tablet 40 mEq Given 03/15/2020 8:18 AM SURGICAL SCHEDULER 40 mEq 40 mEq, Oral, ONCE, 1 dose, [place] 03/15/20 at 0745, Routine KCL (POTASSIUM CHLORIDE) 40 mEq in NaCl 0.9% Given 04/2020 3:18 PM SURGICAL SCHEDULER 40 mEq (NS) piggyback 40 mEq, IV Piggyback, ONCE, 1 dose, Mon03/11/20 at 0930, 250 mL lidocaine (LIDODERM) 5 % (700 mg/patch) Given 03/12/2020 10:16 P M SURGICAL SCHEDULER 1 Patch patch 1 Patch 1 Patch, Topical, Administer over 12 Hours, ONCE, 1 dose, [facility] 03/12/20 at 2230, Routine magnesium sulfate in water 2 gram/50 mL (4 %) New Bag 11:18 PM SURGICAL SCHEDULER 2 g infusion 2 g 2 g, IV Piggyback, ONCE, 1 dose, 03/14/20 at 0000, Routine magnesium sulfate in water 2 gram/50 mL (4 %) New Bag 8:19 AM SURGICAL SCHEDULER 2 g infusion 2 g 2 g, IV Piggyback, ONCE, 1 dose, 03/15/20 at 0745, Routine pantoprazole (PROTONIX) 40 mg in NaCl 0.9% Given 03/14/2020 7:5 5 PM SURGICAL SCHEDULER 40 mg (NS) 100 mL MINI-BAG 40 mg, IV Piggyback, Q12H, First dose on Janelle 03/12/20 at 0800, Until Discontinued, 100 mL Given 03/14/2020 8:19 AM SURGICAL SCHEDULER 40 mg Given 03/13/2020 7:55 PM SURGICAL SCHEDULER 40 mg pantoprazole (PROTONIX) 80 mg in New Bag 03/12/2020 12:[address] 8 mg/hr 50 mL/hr NaCl 0.9% (NS) 500 mL infusion 8 mg/hr (50 mL/hr), IV Infusion, CONTINUOUS, Starting 03/11/20 at 0830, Until Janelle 03/12/20 at 0704, 500 mL New Bag 03/11/2020 8:04 AM SURGICAL SCHEDULER 8 mg/hr 50 mL/hr traMADoL (ULTRAM) tablet 50 mg Given 03/12/2020 10:16 PM SURGICAL SCHEDULER 50 mg 50 mg, Oral, ONCE, 1 dose, Janelle 03/12/20 at 2145, Routine documented in this encounter Additional Health Concerns Infection Onset Date Last Indicated Resolved Time COVID-19 Rule Out 03/11/2020 03/11/2020 03/11/2020 7: 23 AM SURGICAL SCHEDULER documented as of this encounter Insurance Payer Benefit Plan Subscriber ID Effective Phone Address Typ e / Group Dates MEDICARE MEDICARE PART [id number] 2002-Prese [phone] [address] Medicare A & B nt 82 [id number] ALISHA COBB [id number] [facility] [id number] 2017-Prese [phone] [address] PPO/POS nt [id number] [place] [address] Guarantor Name Account Type Relation to Date of Phone Bill ing Patient Address Javan Burrows Personal/Family Self 1935 [id number] (Home) [place] [address] documented as of this encounter
[2020-03-16 07:51] LABS: Absolute Lymphocytes (CBC) 0.9 K/uL (0.7-4.9); Basophils % 0.4 % (0-1.3); Hematocrit 29.7 % (39.6-49.0); Lymphocytes % 4.8 % (15.3-44.8); MPV 8.9 fL (7.6-11.3); RBC Red Blood Cell Count 3.27 M/uL (4.33-5.43)
[2020-03-16 07:55] LABS: Protime INR 1.54
[2020-03-16] MEDS ORDERED: NA CHLORIDE 0.9% 500 ML ONE ×2 (07:55→09:16)
[2020-03-16] MEDS ORDERED: ACETAMINOPHEN 500 MG TAB ONE (07:55)
[2020-03-16 08:12] LABS: Albumin 3.2 g/dL (3.4-5.0); Bilirubin Direct 0.9 mg/dL (0-0.2); Bilirubin Total 1.8 mg/dL (0.2-1.0); Ferritin 91.9 ng/mL (26-388); Potassium 3.3 mmol/L (3.5-5.1); Protein, Total 7.1 g/dL (6.4-8.2); Troponin (Emerg Dept Use Only) 0.08 ng/mL (0.0-0.045)
[2020-03-16] MEDS ORDERED: IBUPROFEN 400 MG TAB ONE (08:24)
[2020-03-16 08:38] LABS: Urine Bacteria 20-50 /HPF (NONE SEEN); Urine RBC <5 /HPF (NONE SEEN)
[2020-03-16 08:39] LABS: Urine Amorphous Sediment 1+ /HPF (NONE SEEN); Urine Mucus 1+ /HPF (NONE SEEN)
[2020-03-16 08:43] LABS: SARS-COV-2 RT PCR NEGATIVE (NEGATIVE)
--- NOTE | 2020-03-16 08:44 | RAD REPORT ---
EXAM DESCRIPTION: RAD - Chest Single View - 03/16/2020 7:54 am CLINICAL HISTORY: Fever;Dyspnea Chest pain. COMPARISON: Chest Single View dated 03/10/2020; Chest Single View dated 12/17/2019; Chest Pa And Lat ( 2 Views) dated 06/01/2018; Chest Single View dated 05/07/2018 FINDINGS: Portable technique limits examination quality. Small left pleural effusion is seen. Subtle prominence of the interstitial lung markings are present. 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 Multi lead pacer device is present.
[2020-03-16 08:53] LABS: Blood Morphology Comment NOT SEEN (NOT SEEN); Platelet Estimate ADEQ; White Blood Cell Scan OK (OK)
--- NOTE | 2020-03-16 09:06 | RAD REPORT ---
EXAM DESCRIPTION: CTAbdomen Pelvis W Contrast - 03/16/2020 8:44 am CLINICAL HISTORY: Abdominal pain. recent colitis, fever COMPARISON: Abdomen Pelvis W Contrast dated 06/09/2016; Stone Protocol dated 03/11/2020 TECHNIQUE: Biphasic CT imaging of the abdomen and pelvis was performed with 100 ml non-ionic IV cont rast. All CT scans are performed using dose optimization technique as appropriate and may include automated exposure control or mA/KV adjustment according to patient size. FINDINGS: Small bilateral pleural effusions are seen with opacities in both posterior lung bases, gr eater on the right. Mild fatty liver is present. Cholecystectomy clips are seen. The spleen, adrenal glands, pancreas and kidneys show no acute process. Small benign cyst measuring 13 mm projects from the posterior cortex of left kidney. Heavy aortoiliac atherosclerosis. No bowel obstruction, free air, free fluid or abscess. Pericolonic inflammatory changes are seen invo lving the descending colon. Moderate rectosigmoid stool retention. Erazo catheter is present in the u rinary bladder. The appendix is normal. No evidence of significant lymphadenopathy. Moderate lumbosa cral degenerative changes. No suspicious bony findings. IMPRESSION: Mild inflammatory changes are present surrounding the descending colon with moderate rec tosigmoid fecal retention evident. This likely indicates a mild colitis or diverticulitis. Mild diffuse fatty liver. Small bilateral pleural effusions with opacities in both lung bases likely representing atelectasis.
--- NOTE | 2020-03-16 09:18 | EDPHYS ---
Physician Documentation [facility] Name: Javan Burrows Age: 84 yrs Sex: Male : 1935 Arrival Date: 03/16/2020 Time: 07:25 Bed 4 Private MD: ED Physician Ranjeet Parker HPI: 03/16 08:06 This 84 yrs old Male presents to ER via EMS with complaints of "unresponsive".rn 08:06 The patient has shortness of breath at rest. Onset: The symptoms/episode began/occurred rn at an unknown time. Duration: The symptoms are continuous. The patient's shortness of breath is aggravated by nothing, is alleviated by nothing. Severity of symptoms: At their worst the symptoms were mild in the emergency department the symptoms are unchanged. The patient has experienced similar episodes in the past. EMS reports called out for "unresponsive", recently admitted at [facility] for unknown reason, but family told EMS that left AMA prior to completion of treatment, unknown if on abx. Pt reports "feels ill", but denies focal pain or problem. . Historical: - Allergies: 07:46 NKA; ss - Home Meds: 07:46 allopurinol 300 mg Oral tab 1 tab once daily [Active]; aspirin 81 mg Oral chew 1 tab ss once daily [Active]; atorvastatin 40 mg Oral tab 1 tab once daily [Active]; carvedilol 3.125 mg Oral tab 1 tab 2 times per day [Active]; furosemide 40 mg Oral tab 1 tab 2 times per day [Active]; glimepiride 4 mg Oral tab 1 tab once daily [Active]; potassium chloride 20 mEq Oral TbER 1 tab once daily [Active]; tamsulosin 0.4 mg Oral cp24 1 cap once daily [Active]; Tresiba FlexTouch U-100 subcutaneous [Active]; - PMHx: 07:46 a-fib; Diabetes - NIDDM; Gout; Hypertension; Myocardial infarction; Pacemaker; ss - Immunization history:: Adult Immunizations. - Social history:: Smoking status: . - Family history:: not pertinent. - Hospitalizations: : Patient was recently seen at. ROS: 08:06 Constitutional: + fever Eyes: Negative for injury, pain, redness, and discharge, ENT: rn Negative for injury, pain, and discharge, Neck: Negative for injury, pain, and swelling, Cardiovascular: + palpitations Respiratory: + sob Abdomen/GI: + abd pain MS/Extremity: Negative for injury and deformity, Skin: Negative for injury, rash, and discoloration, Neuro: + generalized weakness Exam: 08:06 Constitutional: This is a well developed, well nourished patient who is awake, mild rn tachypnea Head/Face: Normocephalic, atraumatic. ENT: dry MM Cardiovascular: Tachycardic, irregularly irregular Respiratory: + mild to moderate tachypnea, faint wheezing Abdomen/GI: sof,t non-tender Skin: Warm, dry MS/ Extremity: RLE amputation, left leg without tenderness or deformity. Neuro: Awake and alert, GCS 15 Vital Signs: 07:25 Temp 102.6(O); ss 08:06 BP 159 / 78; Pulse 139; Resp 24; Temp 104.0(C); Pulse Ox 97% on 2 lpm NC; tw2 08:23 BP 149 / 104; Pulse 120; Resp 21; Temp 103.9(C); Pulse Ox 97% on 2 lpm NC; tw2 08:51 BP 105 / 61; Pulse 117; Resp 21; Temp 102.7(C); Pulse Ox 100% on R/A; ss 09:30 BP 99 / 56; Pulse 106; Resp 17; Temp 101.6; Pulse Ox 98% on 2 lpm NC; tw2 09:53 BP 99 / 56; Pulse 101; Resp 22; Temp 100.8; Pulse Ox 97% on 2 lpm NC; tw2 10:30 BP 111 / 54; Pulse 98; Resp 22; Temp 100.3(C); Pulse Ox 94% on 2 lpm NC; tw2 10:53 BP 108 / 73; Pulse 98; Resp 17; Temp 99.4(C); Pulse Ox 93% on R/A; tw2 11:57 BP 117 / 55; Pulse 103; Resp 17; Temp 98.9(C); Pulse Ox 97% on R/A; tw2 12:30 BP 129 / 82; Pulse 103; Resp 14; Temp 98.5(C); Pulse Ox 97% on R/A; tw2 08:06 provider aware tw2 10:53 pt refusing to wear o2 at this time. tw2 11:57 pt refusing to wear o2 at this time. tw2 MDM: 07:25 Patient medically screened. rn 09:16 Differential diagnosis: CHF exacerbation, Pneumothorax pulmonary edema, Sepsis colitis, rn dehydration. Data reviewed: vital signs, nurses notes, lab test result(s), EKG, radiologic studies, CT scan, plain films, and as a result, I will admit patient. Counseling: I had a detailed discussion with the patient and/or guardian regarding: the historical points, exam findings, and any diagnostic results supporting the discharge/admit diagnosis, lab results, radiology results, the need for further work-up and treatment in the hospital. Response to treatment: the patient's symptoms have mildly improved after treatment, and as a result, I will admit patient. Admission orders: after a detailed discussion of the patient's condition and case, the admit orders are written by me. ED course: Pt with still signs of colitis, possible pneumonia vs pulmonary edema on cxr, zosyn given, will admit to Dr. Edmond. Hemoglobin up from last visit. Afib with rvr improving with fever and fluid treatment. . 03/16 07:30 Order name: Urine Culture rn 03/16 07:30 Order name: Basic Metabolic Panel; Complete Time: : rn 03/16 07:30 Order name: Blood Culture Adult (2) rn 03/16 07:30 Order name: CBC with Diff; Complete Time: : rn 03/16 07:30 Order name: CPK; Complete Time: : rn 03/16 07:30 Order name: Lactate; Complete Time: : rn 03/16 07:30 Order name: LFT's; Complete Time: : rn 03/16 07:30 Order name: Lipase; Complete Time: : rn 03/16 07:30 Order name: Procalcitonin; Complete Time: : rn 03/16 07:30 Order name: Protime (+inr); Complete Time: : rn 03/16 07:30 Order name: Ptt, Activated; Complete Time: : rn 03/16 07:30 Order name: Troponin (emerg Dept Use Only); Complete Time: : rn 03/16 07:30 Order name: Urine Microscopic Only; Complete Time: : rn 03/16 07:30 Order name: Chest Single View XRAY; Complete Time: 09:07 rn 08 07:31 Order name: CRP; Complete Time: 09:07 rn 03/16 07:31 Order name: Ferritin; Complete Time: 09:07 rn 03/16 07:50 Order name: Urine Dipstick--Ancillary (enter results); Complete Time: 09:40 bd 03/16 07:55 Order name: CBC Smear Scan; Complete Time: 09:07 EDMS 03/16 08:01 Order name: CT Abd/Pelvis - IV Contrast Only; Complete Time: 09:08 rn 03/16 08:11 Order name: BNP; Complete Time: 09:07 rn 03/16 08:32 Order name: Glucose, Ancillary Testing; Complete Time: 09:07 EDMS 03/16 08:44 Order name: COVID-19/FLU A+B; Complete Time: 09:07 EDMS 03/16 12:22 Order name: Comprehensive Metabolic Panel EDMS 03/16 14:46 Order name: Lactate Sepsis 2 HR Follow-up EDMS 03/16 15:23 Order name: Blood Culture EDMS 03/16 07:30 Order name: Accucheck; Complete Time: 07:44 rn 08 07:30 Order name: Cardiac monitoring; Complete Time: 07:44 rn 08 07:30 Order name: EKG - Nurse/Tech; Complete Time: 07:44 rn 08 07:30 Order name: IV Saline Lock - Large Bore; Complete Time: 07:44 rn 08 07:30 Order name: Labs collected and sent; Complete Time: 07:45 rn 08 07:30 Order name: O2 Per Protocol; Complete Time: 07:45 rn 08 07:30 Order name: O2 Sat Monitoring; Complete Time: 07:45 rn 08 07:30 Order name: Urine Dipstick-Ancillary (obtain specimen); Complete Time: 07:45 rn 08 11:19 Order name: EKG Electrocardiogram EDMS 03/16 12:22 Order name: CONS Physician Consult EDMS 03/16 12:22 Order name: NPO EDMS Administered Medications: 07:38 Drug: Acetaminophen 1000 mg Route: PO; ss 10:23 Follow up: Response: No adverse reaction; Temperature is decreased tw2 07:42 Drug: NS 0.9% 500 ml Route: IV; Rate: bolus; Site: right antecubital; ss 08:11 Follow up: Response: No adverse reaction; IV Status: Completed infusion; IV Intake: tw2 500ml 08:11 Drug: Motrin 800 mg Route: PO; tw2 10:23 Follow up: Response: No adverse reaction; Temperature is decreased tw2 08:59 Drug: NS 0.9% 500 ml Route: IV; Rate: bolus; Site: right antecubital; ss 10:53 Follow up: Response: No adverse reaction; IV Status: Completed infusion; IV Intake: tw2 500ml 10:30 Drug: Zosyn 3.375 grams Route: IVPB; Infused Over: 60 mins; Site: right antecubital; tw2 11:00 Follow up: Response: No adverse reaction; IV Status: Completed infusion; IV Intake: tw2 100ml 11:08 Drug: Potassium Chloride 10 mEq Route: IV; Rate: calculated rate; Site: right tw2 antecubital; 12:10 Follow up: Response: No adverse reaction; IV Status: Completed infusion; IV Intake: tw2 100ml Disposition: 03/16/20 09:18 Hospitalization ordered by Cony Edmond for Inpatient Admission. Preliminary diagnosis are Colitis, Dehydration, Atrial fibrillation and flutter. - Bed requested for Telemetry/MedSurg (Inpatient). - Status is Inpatient Admission. tw2 - Condition is Stable. - Problem is an ongoing problem. - Symptoms have improved. Signatures: Dispatcher [employer] EDMS Arianna Brody Roman, MD MD rn Smirch, Shelby, RN RN Janie Euceda RN RN 2 Sanjeev Morris, RN RN ja1 Corrections: (The following items were deleted from the chart) 08:02 07:32 Influenza Screen (A \\T\\ B)+BA.LAB.BRZ ordered. EDMS EDMS 08:02 07:32 CORONAVIRUS+MR.LAB.BRZ ordered. EDKY EDMS 11:41 09:18 Hospitalization Ordered by Cony Edmond MD for Inpatient Admission. Preliminary ss diagnosis is Colitis; Dehydration; Atrial fibrillation and flutter. Bed requested for Telemetry/MedSurg (Inpatient). Status is Inpatient Admission. Condition is Stable. Problem is an ongoing problem. Symptoms have improved. rn 16:04 11:41 03/16/2020 09:18 Hospitalization Ordered by Cony Edmond MD for Inpatient ja1 Admission. Preliminary diagnosis is Colitis; Dehydration; Atrial fibrillation and flutter. Bed requested for [facility] ER HOLD. Status is Inpatient Admission. Condition is Stable. Problem is an ongoing problem. Symptoms have improved. ss 16:04 16:04 03/16/2020 09:18 Hospitalization Ordered by Cony Edmond MD for Inpatient bd Admission. Preliminary diagnosis is Colitis; Dehydration; Atrial fibrillation and flutter. Bed requested for Telemetry/MedSurg (Inpatient). Status is Inpatient Admission. Condition is Stable. Problem is an ongoing problem. Symptoms have improved. ja1 16:42 16:04 03/16/2020 09:18 Hospitalization Ordered by Cony Edmond MD for Inpatient tw2 Admission. Preliminary diagnosis is Colitis; Dehydration; Atrial fibrillation and flutter. Bed requested for Telemetry/MedSurg (Inpatient). Status is Inpatient Admission. Condition is Stable. Problem is an ongoing problem. Symptoms have improved. bd
--- NOTE | 2020-03-16 09:18 | ER ---
Nurse's Notes [facility] Name: Javan Burrows Age: 84 yrs Sex: Male : 1935 Arrival Date: 03/16/2020 Time: 07:25 Bed 4 Private MD: Diagnosis: Colitis;Dehydration;Atrial fibrillation and flutter Presentation: 03/16 07:25 Coronavirus screen: Client presents with at least one sign or symptom that may indicate coronavirus-19. Standard/surgical mask placed on the client. Provider contacted for isolation considerations. Ebola Screen: Patient denies exposure to infectious person. Patient denies travel to an Ebola-affected area in the 21 days before illness onset. Initial Sepsis Screen: Does the patient meet any 2 criteria? RR > 20 per min. Temp <36.0*C (96.8*F)) or > 38.3*C (100.9*F). HR > 90 bpm. Does the patient have a suspected source of infection? Yes: Productive cough/pneumonia. Risk Assessment: Do you want to hurt yourself or someone else? Patient reports no desire to harm self or others. Onset of symptoms is unknown. 07:25 Acuity: GOLDIE 2 07:25 Method Of Arrival: EMS: [facility] 07:25 Chief complaint: EMS states: "called out for unresponsive." Recently was transferred to [facility] and left AMA. Pt denies feeling ill. Pt is noted to be short of breath on arrival to ED. 07:49 Acuity: GOLDIE 2 tw2 07:59 Care prior to arrival: None. tw2 Triage Assessment: 07:25 General: Appears ill, Behavior is cooperative, appropriate for age. Pain: Denies pain. tw2 EENT: No signs and/or symptoms were reported regarding the EENT system. Neuro: Level of Consciousness is awake, alert, obeys commands, Oriented to person, place. Cardiovascular: Capillary refill is > 3 seconds. Respiratory: Airway is patent Respiratory effort is even, unlabored, Respiratory pattern is tachypnea Breath sounds with wheezes bilaterally. GI: No signs and/or symptoms were reported involving the gastrointestinal system. Abdomen is round non-distended, obese. : No signs and/or symptoms were reported regarding the genitourinary system. Derm: Skin temperature is hot Decubitus located on sacrum occlusive padded dressing in place, unable to visualize wound at this time. Musculoskeletal: Amputation of right BKA. Historical: - Allergies: 07:46 NKA; ss - Home Meds: 07:46 allopurinol 300 mg Oral tab 1 tab once daily [Active]; aspirin 81 mg Oral chew 1 tab ss once daily [Active]; atorvastatin 40 mg Oral tab 1 tab once daily [Active]; carvedilol 3.125 mg Oral tab 1 tab 2 times per day [Active]; furosemide 40 mg Oral tab 1 tab 2 times per day [Active]; glimepiride 4 mg Oral tab 1 tab once daily [Active]; potassium chloride 20 mEq Oral TbER 1 tab once daily [Active]; tamsulosin 0.4 mg Oral cp24 1 cap once daily [Active]; Tresiba FlexTouch U-100 subcutaneous [Active]; - PMHx: 07:46 a-fib; Diabetes - NIDDM; Gout; Hypertension; Myocardial infarction; Pacemaker; ss - Immunization history:: Adult Immunizations. - Social history:: Smoking status: . - Family history:: not pertinent. - Hospitalizations: : Patient was recently seen at. Screenin:25 Fall Risk Secondary diagnosis (15 points) impaired mobility. tw2 07:46 Abuse screen: Denies threats or abuse. Denies injuries from another. Nutritional ss screening: No deficits noted. Tuberculosis screening: Never had TB. Assessment: 08:01 Reassessment: see triage assessment. tw2 09:50 Reassessment: pt wanted his son updated with poc care here, pts son informed me that tw2 yesterday he was in [facility] was sent there from our facility in after receiving 1unit of PRBC's here and 3 units PRBC's in [place], he was having some internal bleeding, after scope could not find source of bleed, pt left AMA, and he has not had a BM in 6 days and has been refusing to eat as well, son is not sure why. 09:59 Reassessment: pts son Moses Burrows ph#[phone]. tw2 10:00 Reassessment: Patient appears in no apparent distress at this time. Patient and/or tw2 family updated on plan of care and expected duration. Pain level reassessed. 10:54 Reassessment: Patient appears in no apparent distress at this time. Patient and/or tw2 family updated on plan of care and expected duration. Pain level reassessed. 11:57 Reassessment: Patient appears in no apparent distress at this time. Patient and/or tw2 family updated on plan of care and expected duration. Pain level reassessed. 12:30 Reassessment: Patient appears in no apparent distress at this time. Patient and/or tw2 family updated on plan of care and expected duration. Pain level reassessed. Patient states feeling better. Vital Signs: 07:25 Temp 102.6(O); ss 08:06 BP 159 / 78; Pulse 139; Resp 24; Temp 104.0(C); Pulse Ox 97% on 2 lpm NC; tw2 08:23 BP 149 / 104; Pulse 120; Resp 21; Temp 103.9(C); Pulse Ox 97% on 2 lpm NC; tw2 08:51 BP 105 / 61; Pulse 117; Resp 21; Temp 102.7(C); Pulse Ox 100% on R/A; ss 09:30 BP 99 / 56; Pulse 106; Resp 17; Temp 101.6; Pulse Ox 98% on 2 lpm NC; tw2 09:53 BP 99 / 56; Pulse 101; Resp 22; Temp 100.8; Pulse Ox 97% on 2 lpm NC; tw2 10:30 BP 111 / 54; Pulse 98; Resp 22; Temp 100.3(C); Pulse Ox 94% on 2 lpm NC; tw2 10:53 BP 108 / 73; Pulse 98; Resp 17; Temp 99.4(C); Pulse Ox 93% on R/A; tw2 11:57 BP 117 / 55; Pulse 103; Resp 17; Temp 98.9(C); Pulse Ox 97% on R/A; tw2 12:30 BP 129 / 82; Pulse 103; Resp 14; Temp 98.5(C); Pulse Ox 97% on R/A; tw2 08:06 provider aware tw2 10:53 pt refusing to wear o2 at this time. tw2 11:57 pt refusing to wear o2 at this time. tw2 ED Course: 07:25 Patient arrived in ED. rn 07:25 Ranjeet Parker MD is Attending Physician. rn 07:25 Arm band placed on right wrist. ss 07:30 Patient has correct armband on for positive identification. Bed in low position. Call ss light in reach. bus driver/monitor on. Pulse ox on. NIBP on. 07:36 Inserted saline lock: 22 gauge in right antecubital area, using aseptic technique. ss Blood collected. Oxygen administration via nasal cannula \\T\\ 2L/min. 07:47 Nam cath inserted, using sterile technique, 16 Fr., by ED staff, balloon inflated, to ss gravity drainage, urine specimen collected. other Inserted criticore nam. 07:49 Janie Euceda, RN is Primary Nurse. tw2 07:50 Triage completed. ss 07:54 Chest Single View XRAY In Process Unspecified. EDMS 08:44 CT Abd/Pelvis - IV Contrast Only In Process Unspecified. EDMS 09:17 Cony Edmond MD is Hospitalizing Provider. rn 11:56 Awaiting: hospital orders as pt will be an ER HOLD. tw2 12:32 No provider procedures requiring assistance completed. Patient admitted, IV remains in tw2 place. Administered Medications: 07:38 Drug: Acetaminophen 1000 mg Route: PO; ss 10:23 Follow up: Response: No adverse reaction; Temperature is decreased tw2 07:42 Drug: NS 0.9% 500 ml Route: IV; Rate: bolus; Site: right antecubital; ss 08:11 Follow up: Response: No adverse reaction; IV Status: Completed infusion; IV Intake: tw2 500ml 08:11 Drug: Motrin 800 mg Route: PO; tw2 10:23 Follow up: Response: No adverse reaction; Temperature is decreased tw2 08:59 Drug: NS 0.9% 500 ml Route: IV; Rate: bolus; Site: right antecubital; ss 10:53 Follow up: Response: No adverse reaction; IV Status: Completed infusion; IV Intake: tw2 500ml 10:30 Drug: Zosyn 3.375 grams Route: IVPB; Infused Over: 60 mins; Site: right antecubital; tw2 11:00 Follow up: Response: No adverse reaction; IV Status: Completed infusion; IV Intake: tw2 100ml 11:08 Drug: Potassium Chloride 10 mEq Route: IV; Rate: calculated rate; Site: right tw2 antecubital; 12:10 Follow up: Response: No adverse reaction; IV Status: Completed infusion; IV Intake: tw2 100ml Intake: 08:11 IV: 500ml; Total: 500ml. tw2 10:53 IV: 500ml; Total: 1000ml. tw2 11:00 IV: 100ml; Total: 1100ml. tw2 12:10 IV: 100ml; Total: 1200ml. tw2 Output: 10:40 Urine: 450ml (Nam); Total: 450ml. tw2 Outcome: 09:18 Decision to Hospitalize by Provider. rn 12:32 Admitted to ER Hold. Please see [facility] for further documentation. tw2 12:32 Condition: stable 12:32 Instructed on the need for admit. 16:42 Patient left the ED. tw2 Signatures: Dispatcher [employer] EDMS Ranjeet Parker MD MD rn Smirch, Shelby, RN RN ss Wise, Tara, RN RN tw2 Corrections: (The following items were deleted from the chart) 08:25 08:23 BP 120 / ???; [facility] 08:58 08:51 BP 105 / 61; Pulse 120bpm; Resp 21bpm; Pulse Ox 100% RA; Temp 102.7F Catheter; ss ss 10:22 08:23 Pulse 120bpm; Resp 21bpm; Pulse Ox 97% 2 lpm Nasal Cannula; Temp 103.9F Catheter; tw2 10:22 08:59 BP 105 / 61; Pulse 110bpm; Resp 20bpm; Pulse Ox 100% 2 lpm Nasal Cannula; Temp tw2 102.6F Catheter; tw2 10:23 07:25 Derm: Skin temperature is hot tw2 tw2 11:58 10:53 BP 108 / 73; Pulse 98bpm; Resp 17bpm; Pulse Ox 93% 2 lpm Nasal Cannula; Temp tw2 99.4F Catheter; tw2
[2020-03-16 09:34] LABS: Urine Blood NEGATIVE (NEG); Urine Glucose NEGATIVE (NEG); Urine Protein 1+ (NEG); Urine Specific Gravity 1.015 (1.005-1.030)
[2020-03-16] MEDS ORDERED: KCL 20 MEQ/100 mL IVPB 20 MEQ/100 ML BAG IV ONE (10:41)
[2020-03-16] MEDS ORDERED: PIPER/TAZO/NS 3.375gm 3.375 GM/100 ML BAG ONE (10:42)
[2020-03-16] MEDS ORDERED: NA CHLORIDE 0.9% 250 ML ONE ×2 (11:44→23:36)
[2020-03-16] MEDS ORDERED: ONDANSETRON 4 MG/2 ML VIAL IV PRN (12:19)
[2020-03-16] MEDS: Levofloxacin500mg IV 500 MG/100 ML BAG IV SCH (13:00)
[2020-03-16] MEDS: NA CHLORIDE 0.9% 1,000 ML IV SCH (13:00)
--- NOTE | 2020-03-16 14:01 | P.HP ---
Certification for Inpatient Patient admitted to: Inpatient With expected LOS: >2 Midnights Patient will require the following post-hospital care: None Practitioner: I am a practitioner with admitting privileges, knowledge of patient current condition, hospital course, and medical plan of care. Services: Services provided to patient in accordance with Admission requirements found in Title 42 Section 412.3 of the Code of Federal Regulations Patient History Date of Service: 03/16/20 Reason for admission: Colitis History of Present Illness: Patient is an 84-year-old gentleman who came into the hospital with being difficult to arouse. Family notified EMS and patient was brought into the emergency room. Patient was a little tachypneic on arrival. EKG revealed atrial fibrillation with rapid ventricular response. Patient was hydrated and rate has been controlled. Patient had additional workup in the emergency room including labs and imaging studies. Imaging studies revealed patient had colitis and lab data indicated patient with acute renal insufficiency/dehydration. Patient has been having some diarrhea and his nutritional intake has been poor. Patient was recently at [facility] and left against medical advice. Unknown as to what was diagnosed at the facility.Patient procalcitonin level was also elevated. Patient also was elev ation of total bilirubin. Patient will be admitted to the hospital for further evaluation. Allergies No Known Drug Allergies Allergy (Verified 06/09/16 19:08) Unknown No Known Al Allergy (Uncoded 04/23/16 03:12) Unknown No Known Allergies Allergy (Uncoded 05/30/17 20:27) Unknown Home Medications: Aspirin [Aspirin EC 81 MG] 81 mg PO DAILY 05/04/18 Atorvastatin Calcium [Lipitor] 40 mg PO BEDTIME 05/04/18 Furosemide [Lasix*] 40 mg PO BIDL 05/04/18 Glimepiride [Amaryl] 4 mg PO DAILY 05/04/18 Potassium Chloride [Klor-Con M20] 20 meq PO DAILY 05/04/18 Tamsulosin [Flomax*] 0.4 mg PO DAILY 05/04/18 allopurinoL [Zyloprim*] 300 mg PO DAILY 05/04/18 carvediloL [Coreg*] 3.125 mg pe PO BID 6AM 6PM 05/04/18 - Past Medical/Surgical History Diabetic: Yes -: Obesity -: DM Type 2 -: Gout -: HPN -: Afib -: CABG -: GA -: Pacemaker- Defib -: AKA 1994 -: Left knee replacement 2x -: Cholecystectomy -: Bilateral Fempop -: Reverse Vasectomy - Family History Father Notes: cerebral hemorrhage- Mother Notes: heart attack- - Social History Smoking Status: Former smoker Alcohol use: Yes CD- Drugs: No Caffeine use: Yes Review of Systems 10-point ROS is otherwise unremarkable Physical Examination - Vital Signs Temperature: 98 F Blood Pressure: 150/80 Pulse: 90 Respirations: 18 Pulse Ox (%): 95 - Physical Exam General: Alert, In no apparent distress, Oriented x3 HEENT: Atraumatic, Normocephalic Neck: Supple, 2+ carotid pulse no bruit, JVD not distended Respiratory: Clear to auscultation bilaterally, Normal air movement Cardiovascular: No murmurs, Irregular heart rate/rhythm Gastrointestinal: Normal bowel sounds, Soft and benign, Non-distended, Tenderness Musculoskeletal: No clubbing, No swelling Integumentary: No rashes Neurological: Normal gait, Normal speech, Normal strength at 5/5 x4 extr, Normal tone, Sensation intact, Cranial nerves 3-12 intact - Studies Laboratory Data (last 24 hrs) 03/16/20 07:35: PT 17.8 H, INR 1.54, APTT 24.7 03/16/20 07:35: WBC 17.90 H D, Hgb 9.3 L D, Hct 29.7 L D, Plt Count 205 D 03/16/20 07:35: Sodium 136, Potassium 3.3 L, BUN 54 H D, Creatinine 1.45 H, Glucose 198 H, Total Bilirubin 1.8 H, AST 23, ALT 19, Alkaline Phosphatase 86, Lipase 199 Assessment & Plan - Problems (Diagnosis) (1) Acute colitis Current Visit: Yes Status: Acute (2) Acute kidney injury Current Visit: Yes Status: Acute (3) Leukocytosis Current Visit: Yes Status: Acute (4) Elevated procalcitonin Current Visit: Yes Status: Acute (5) Elevated bilirubin Current Visit: Yes Status: Acute (6) History of femoropopliteal bypass Current Visit: No Status: Acute (7) Hyperlipidemia Current Visit: No Status: Chronic Qualifiers: Hyperlipidemia type: unspecified Qualified Code(s): E78.5 - Hyperlipidemia, unspecified (8) Hypertension Current Visit: No Status: Chronic Qualifiers: Hypertension type: essential hypertension Qualified Code(s): I10 - Essential (primary) hypertension (9) Pacemaker Current Visit: No Status: Chronic (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 Continue with gentle IV hydration 2. Continue with IV antibiotics 3. Continue with pain control 4. NPO 5. GI consultation; 6. Serial H&H, and we will monitor CBC, BMP, LFTs and lipase along with electrolytes. 7. Continue cardiac meds-rate controlled and anticoagulated 8. Monitor renal function closely 9. Repeat procalcitonin level 10. GI and DVT prophylaxis Discharge Plan: Prison Plan to discharge in: Greater than 2 days - Advance Directives Does patient have a Living Will: Yes Does patient have a Durable POA for Healthcare: No - Code Status/Comfort Care Code Status Assessed: Yes Code Status: Full Code Critical Care: No Time Spent Managing PTS Care (In Minutes): 45
[2020-03-16] MEDS ORDERED: INFLUENZA VACCINE (for 3y+) 0.5 ML DOSE IMVAC ONE (15:00)
[2020-03-16] MEDS ORDERED: Levofloxacin500mg IV 500 MG/100 ML BAG IV ONE (15:03)
[2020-03-16] MEDS ORDERED: METRONIDAZOLE 500mg IVPB 500 MG/100 ML BAG IV ONE (15:13)
[2020-03-16] MEDS ORDERED: NA CHLORIDE 0.9% 1,000 ML ONE (15:13)
[2020-03-16] MEDS: METRONIDAZOLE 500mg IVPB 500 MG/100 ML BAG IV SCH (16:39)
[2020-03-16] MEDS: KCL 20 MEQ/100 mL IVPB 20 MEQ/100 ML BAG IV SCH ×2 (20:16→22:00)
[2020-03-16 21:04] LABS: Barbiturates NEGATIVE (NEGATIVE); Benzodiazepines NEGATIVE (NEGATIVE); Cocaine NEGATIVE (NEGATIVE); METHAMPHETAM NEGATIVE (NEGATIVE); Methadone NEGATIVE (NEGATIVE); Opiates NEGATIVE (NEGATIVE); Phencyclidine NEGATIVE (NEGATIVE); THC Cannibis NEGATIVE (NEGATIVE)
[2020-03-16] MEDS ORDERED: VANCOMYCIN 1.25 GM in NA CHLORIDE 0.9% 250 ML IVPB ONE (22:12)
[2020-03-16] MEDS ORDERED: D50W 25 GM/50 ML SYRINGE IV PRN (22:15)
[2020-03-16] MEDS ORDERED: GLUCAGON 1 MG/VIAL IM PRN (22:15)
[2020-03-16] MEDS ORDERED: VANCOMYCIN 1 GM/VIAL ONE (22:56)
[2020-03-16] MEDS ORDERED: VANCOMYCIN 500 MG/VIAL ONE (22:56)
[2020-03-17] MEDS: KCL 20 MEQ/100 mL IVPB 20 MEQ/100 ML BAG IV SCH (01:20)
[2020-03-17] MEDS: METRONIDAZOLE 500mg IVPB 500 MG/100 ML BAG IV SCH ×3 (02:14→16:59)
[2020-03-17] MEDS: NA CHLORIDE 0.9% 1,000 ML IV SCH ×2 (02:20→13:20)
[2020-03-17 05:42] LABS: Absolute Lymphocytes (CBC) 0.4 K/uL (0.7-4.9); Basophils % 0.3 % (0-1.3); Hematocrit 27.8 % (39.6-49.0); Lymphocytes % 3.6 % (15.3-44.8); MPV 8.9 fL (7.6-11.3); RBC Red Blood Cell Count 3.08 M/uL (4.33-5.43)
[2020-03-17] MEDS: INSULIN -REGULAR HUMAN 50 UNIT/0.5 ML ML SQ SCH ×5 (06:00→20:31)
[2020-03-17 06:03] LABS: Albumin 2.6 g/dL (3.4-5.0); Bilirubin Total 1.2 mg/dL (0.2-1.0); Magnesium 1.8 mg/dL (1.8-2.4); Phosphorus 3.8 mg/dL (2.5-4.9); Potassium 3.6 mmol/L (3.5-5.1); Protein, Total 6.3 g/dL (6.4-8.2)
[2020-03-17] MEDS ORDERED: KCL 20 MEQ/100 mL IVPB 20 MEQ/100 ML BAG IV SCH (09:00)
[2020-03-17] MEDS ORDERED: MAGNESIUM SULFATE 1 gm IVPB 1 GM/100 ML BAG IV ONE ×3 (09:00→17:00)
--- NOTE | 2020-03-17 09:18 | P.PN ---
Subjective Date of Service: 03/17/20 Patient abdominal symptoms slightly improved. Patient still has worsening renal insufficiency. Patient blood cultures have also become positive. Patient is bacteremic with Staph coag positive which is probably Staph aureus. Patient was given a dose of IV vancomycin by nighttime hospitalist. Continue with hydration. Continue monitoring closely. Patient will need aggressive IV antibiotic therapy. Will also get an echocardiogram to evaluate for possible vegetations. Physical Examination - Vital Signs Temperature: 98 F Blood Pressure: 150/80 Pulse: 90 Respirations: 18 Pulse Ox (%): 95 - Physical Exam General: Alert, In no apparent distress, Oriented x3 Respiratory: Clear to auscultation bilaterally, Normal air movement Cardiovascular: Regular rate/rhythm, Normal S1 S2, No murmurs Gastrointestinal: Normal bowel sounds, Soft and benign, Non-distended, Tenderness Musculoskeletal: No clubbing Assessment & Plan - Problems (Diagnosis) (1) Acute colitis Current Visit: Yes Status: Acute (2) Acute kidney injury Current Visit: Yes Status: Acute (3) Leukocytosis Current Visit: Yes Status: Acute (4) Elevated procalcitonin Current Visit: Yes Status: Acute (5) Elevated bilirubin Current Visit: Yes Status: Acute (6) History of femoropopliteal bypass Current Visit: No Status: Acute (7) Hyperlipidemia Current Visit: No Status: Chronic Qualifiers: Hyperlipidemia type: unspecified Qualified Code(s): E78.5 - Hyperlipidemia, unspecified (8) Hypertension Current Visit: No Status: Chronic Qualifiers: Hypertension type: essential hypertension Qualified Code(s): I10 - Essential (primary) hypertension (9) Pacemaker Current Visit: No Status: Chronic (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 Continue with gentle IV hydration 2. Continue with IV antibiotics 3. Continue with pain control 4. NPO 5. GI consultation; 6. Serial H&H, and we will monitor CBC, BMP, LFTs and lipase along with electrolytes. 7. Continue cardiac meds-rate controlled and anticoagulated 8. Monitor renal function closely 9. Repeat procalcitonin level 10. GI and DVT prophylaxis - Advance Directives Does patient have a Living Will: Yes Does patient have a Durable POA for Healthcare: No - Code Status/Comfort Care Code Status: Full Code
[2020-03-17] MEDS: ENOXAPARIN 40 MG/0.4 ML SQ SCH (09:20)
[2020-03-17] MEDS ORDERED: FUROSEMIDE 20 MG/ 2ML VIAL IV ONE (13:00)
[2020-03-17] MEDS ORDERED: BISACODYL 10 MG RECTAL SUPP PR PRN (13:01)
[2020-03-17] MEDS ORDERED: MAGNESIUM HYDROXIDE 8% 30 ML PO ONE (13:01)
[2020-03-17] MEDS ORDERED: ALBUMIN HUMAN 25% 100 ML IV ONE (13:02)
[2020-03-17] MEDS: Levofloxacin500mg IV 500 MG/100 ML BAG IV SCH (13:34)
[2020-03-17] MEDS ORDERED: NA CHLORIDE 0.9% 1,000 ML IV SCH ×2 (15:00→19:13)
--- NOTE | 2020-03-17 16:26 | CON ---
Date of Consultation: 03/17/2020 Reason For Consultation: Elevated BUN and creatinine, fluid management. History Of Present Illness: This is a pleasant 84-year-old gentleman with significant past medical history of hypertension, hyperlipidemia, gout, status post CABG and PTCA, chronic kidney disease, baseline creatinine 1.4, GFR 49 as of January 2020, diabetes complicated with neuropathy, status post right above- knee amputation, the patient recently was admitted to [place] and signed against medical advice. The patient came to the hospital complaining from losing consciousness and fall, found to have AFib with RVR and apparently, the patient had some abdominal pain. For that reason, the patient underwent CT of abdomen and pelvis with IV contrast. Upon arrival to the hospital, creatinine was 1.4, currently 1.6, GFR 49, currently down to the 40s. For that reason, we have been consulted. The patient denied taking any nonsteroidal. Reviewing his home medications, the patient is on Lasix and potassium supplement. No mention for any nonsteroidal. The patient denied taking any ibuprofen or nonsteroidal at home. Allergies: NO KNOWN DRUGS ALLERGY. Home Medications: Include aspirin, atorvastatin, Lasix, glimepiride, KCl, Flomax, allopurinol, and carvedilol. Past Medical History: Includes; 1. Diabetes complicated with nephropathy and neuropathy. 2. Peripheral vascular disease status post above-knee amputation on the right. 3. AFib. 4. Coronary artery disease, status post CABG, status post ICD placement. 5. Chronic kidney disease, baseline creatinine 1.4, GFR of 49. Past Surgical History: Include CABG, PTCA, cholecystectomy, above-knee amputation, bilateral fem-pop . Family History: Positive for CVA, hypertension. Social History: Ex-smoker, active alcohol occasional. Denied drug abuse. Review of Systems: Head and Neck: No red eye. No ear pain. GI: No nausea. No vomiting. : No polyuria. No dysuria. No hematuria. CURB ATTENDANT: Not applicable. Respiratory: Has shortness of breath. Cardiovascular: Has orthopnea. Endocrine: No polydipsia. Skin: No rash. Neuro: Has neuropathy. Has loss of conscious. Musculoskeletal: Generalized weakness, pain in leg. Physical Examination: General: When I saw the patient, patient lying in bed, not on any distress. Vital Signs: Blood pressure of 143/63, pulse of 79. Chest: Faint rales in the base. Heart: S1, S2. Systolic murmur. Abdomen: Soft, nontender. Extremities: Right above-knee amputation. Neurologic: Alert, oriented x3. No focal. Current Medications: In the hospital include Tylenol, allopurinol, Bisacodyl, Lovenox, glimepiride, levothyroxine, insulin, Zofran, Flomax, and vancomycin. Laboratory Data: WBC 11.9, H and H 8.8/27.8, platelet 155. Sodium 140, potassium 3.6, bicarb 23, BUN 64, creatinine 1.6, calcium 9, phosphorus 3.8, magnesium 1.8. CT of abdomen and pelvis was done with contrast on the and showing colitis. Assessment And Plan: 1. Acute kidney injury, multifactorial, secondary to prerenal, secondary to gastrointestinal loss, superimposed with contrast-induced nephropathy, on chronic kidney disease secondary to diabetes and renal vascular disease. Looked to me the patient still on the dry side. I am going to go ahead and start the patient on hydration and we will monitor the patient closely. Given the anemia, I am going to send for serum protein electrophoresis and we will monitor. We will continue gentle hydration as the patient exposed to contrast yesterday. We will follow up. We will send for PTH, renal ultrasound to evaluate the chronicity of the disease. 2. Hypertension, currently controlled, optimal. Please avoid any PORTIA inhibitor or ARB for the time being. 3. Colitis. The patient was started on vancomycin and Levaquin with metronidazole dose appropriate. We will monitor the level. 4. Anemia with the presence of acute kidney injury. I am going to send for light-chain disease. 5. Congestive heart failure, currently looked to me on the normal volume side. I am going to hold the Lasix for the time being to pass 48 hours from the contrast exposure. 6. Diabetes as by primary. Thank you Dr. Edmond for allowing us to participate in the care of your patient. Time spent discussing with the patient examined the patient's face to face, discuss the case with other technical healthcare consultant and of what staff member placing order 65 min YOANA Voice ID: [id number] Report ID: [id number] [facility]
--- NOTE | 2020-03-17 16:44 | P.CNS ---
Chief Complaint: Colitis History of Present Illness: The patient is a 84 year old male with a PMH significant of afib with RVR, previous stage 3 sacral wound, colitis, anemia, and DM type 2 who presented to the ED after losing conciseness. In ED patient was found to have a fib with RVR and dehydration. In ED patient was rate controlled labs/imaging was ordered. Patient has been admitted for further evaluation. Infectious disease has been consulted as the patient was found to have bacteremia. Blood cultures taken on 03/16 grew coagulase positive staph. The patient is currently on metronidazole and levaqin. Unclear source of bacteremia at this time-possibly from colitis. Patient denies SOB, chest pain, N/V/D. 10 Point ROS has been conducted with pertinent positive and negatives listed above. Allergies No Known Drug Allergies Allergy (Verified 06/09/16 19:08) Unknown No Known Al Allergy (Uncoded 04/23/16 03:12) Unknown No Known Allergies Allergy (Uncoded 05/30/17 20:27) Unknown Home Medications: Aspirin [Aspirin EC 81 MG] 81 mg PO DAILY 05/04/18 Atorvastatin Calcium [Lipitor] 40 mg PO BEDTIME 05/04/18 Furosemide [Lasix*] 40 mg PO BIDL 05/04/18 Glimepiride [Amaryl] 4 mg PO DAILY 05/04/18 Potassium Chloride [Klor-Con M20] 20 meq PO DAILY 05/04/18 Tamsulosin [Flomax*] 0.4 mg PO DAILY 05/04/18 allopurinoL [Zyloprim*] 300 mg PO DAILY 05/04/18 carvediloL [Coreg*] 3.125 mg pe PO BID 6AM 6PM 05/04/18 - Past Medical/Surgical History Diabetic: Yes -: Obesity -: DM Type 2 -: Gout -: HPN -: Afib -: CABG -: [place] -: Pacemaker- Defib -: AKA 1994 -: Left knee replacement 2x -: Cholecystectomy -: Bilateral Fempop -: Reverse Vasectomy - Family History Father Notes: cerebral hemorrhage- Mother Notes: heart attack- - Social History Smoking Status: Former smoker Alcohol use: Yes CD- Drugs: No Caffeine use: Yes Place of Residence: Home Review of Systems 10-point ROS is otherwise unremarkable Physical Examination Temp Pulse Resp BP Pulse Ox 98.0 F 79 18 143/63 H 96 03/17/20 12:00 03/17/20 13:21 03/17/20 12:00 03/17/20 13:21 03/17/20 12:00 General: In no apparent distress, Oriented x3 HEENT: Atraumatic, Normocephalic, PERRLA Neck: Supple, 2+ carotid pulse no bruit, JVD not distended, No Thyromegaly Respiratory: Clear to auscultation bilaterally, Normal air movement Cardiovascular: No edema, No murmurs, Irregular heart rate/rhythm Capillary refill: <2 Seconds Gastrointestinal: Normal bowel sounds, Soft and benign, Non-distended Musculoskeletal: No clubbing, No swelling Integumentary: No rashes, No breakdown, Other (previous stage 3 sacral ulcer) Conclusions/Impression: Assessment 1. bacteremia 2. previous stage 3 sacral ulcer 3. leukocytosis 4. colitis 5. DM type 2 6. anemia 7. a fib w/ rvr 8. CURTIS plan: 1. blood cultures on 03/16 grew coagulase positive staph-patient currently on metronidazole, levaqin, and vancomycin. Continue at this time. 2. Patient denied wound evaluation, however he states that the wound is still present. 3. WBC down trending-will continue to monitor -medical management per primary team -will continue to monitor CBC/BMP -continue to monitor for signs of infection. Plan of care discussed with Dr. Ji. Thank you for consultation.
[2020-03-17] MEDS: PANTOPRAZOLE 40MG TABLET PO SCH (17:00)
[2020-03-17] MEDS ORDERED: FUROSEMIDE 40 MG TABLET PO SCH (17:00)
[2020-03-17] MEDS: carvediloL 3.125 MG TAB PO SCH (17:00)
[2020-03-17] MEDS: ACETAMINOPHEN 500 MG TAB PO PRN (17:26)
[2020-03-17 17:46] LABS: Urine Appearance CLEAR; Urine Bilirubin NEGATIVE (NEG); Urine Blood 1+ (NEG); Urine Color YELLOW; Urine Glucose NEGATIVE (NEG); Urine Protein NEGATIVE (NEG)
[2020-03-17 17:47] LABS: Urine Microscopic Reflex ORDER UMIC
[2020-03-17 17:53] LABS: Urine Protein/Creatinine Ratio 0.47 ratio (<0.15)
[2020-03-17 17:54] LABS: Urine Bacteria 20-50 /HPF (NONE SEEN); Urine RBC <5 /HPF (NONE SEEN)
--- NOTE | 2020-03-17 19:11 | CON ---
Reason For Consultation: Suspected colitis. History Of Presenting Illness: The patient is an 84-year-old man, who came to the hospital with alte red mental status, tachypneic, EKG revealed atrial fibrillation with RVR, sepsis, acute kidney injury . There was a report of some diarrhea; however, CT scan revealed moderate rectosigmoid fecal retenti on and suspected colitis versus diverticulitis of the rectosigmoid region. GI was consulted. Of not e, the patient was recently at [facility] and left against medical advice. When I saw the patie nt today, he appears to be fully alert and oriented. He states that he actually tends to stay consti pated, but not anymore. He had a good bowel movement today. He denies any abdominal pain at this ti me. Last colonoscopy was many years ago. Allergies: NO KNOWN DRUG ALLERGIES. Home Medications: As in the chart. Past Medical History: Obesity, diabetes, gout, atrial fibrillation, coronary artery disease, history of ND. Past Surgical History: History of pacemaker, left knee replacement, cholecystectomy, reverse vasecto my, bilateral fem-pop. Family History: Noncontributory. Social History: Ex-smoker. Admits for alcohol use. Review of Systems: GI: As in HPI. Neurological: As in HPI. Cardiovascular: As in HPI. Otherwise negative. Remainder of 10-point review of system is negative. Physical Examination: Vital Signs: On presentation; temperature 98, blood pressure 150/80, pulse 90, respiratory rate 18. HEENT: Head atraumatic, normocephalic. Pupils equally reactive. Neck: Supple. Chest: Bilateral air entry. Abdomen: Soft, nontender, nondistended. Bowel sounds present. Extremities: Trace pedal edema. FIBER LOCKING SUPERVISOR: Alert, oriented x3. CVS: S1, S2 plus. Laboratory Data: Reviewed. Leukocytosis with white count of 17.9 which is improved to 11.9, mild an emia, hemoglobin 8.8 which appears to be chronic. Mild elevation of total bilirubin, but normal AST, ALT. Urine shows bacteria. Blood culture positive for Staph. Impression: An 84-year-old gentleman recently at [facility], now presents to this hospital with altered mental status, sepsis and findings of colitis versus diverticulitis and increased fecal rete ntion in the rectosigmoid. His colonic finding do not appear to be the cause of his admission or his sepsis. Plan: Continue current management, broad-spectrum antibiotics, treat the sepsis. I will order stool for C diff if he is able to have any diarrhea. Cardiac evaluation, renal evaluation. No interventi on from GI at this point. The patient will need an outpatient colonoscopy after full cardiac evaluat ion and treatment in 4 to 6 weeks' time. /FRANK Voice ID: [id number] Report ID: [id number]
--- NOTE | 2020-03-17 20:13 | RAD REPORT ---
EXAM DESCRIPTION: US - Renal Ultrasound-Complete - 03/17/2020 7:23 pm CLINICAL HISTORY: CURTIS COMPARISON: CT study March 16 FINDINGS: The right kidney measures 8.2 x 5.0 x 4.5 cm. The left kidney measures 8.7 x 5.5 x 3.9 cm . Cortical thickness is within normal range. Increase in cortical echogenicity could be medical renal disease, body habitus affects or a combination. No hydronephrosis or suspicious renal mass. Urinary bladder is contracted around a Erazo catheter and cannot be further assessed. IMPRESSION: No hydronephrosis or suspicious renal mass. Cortical echogenicity increase could be body habitus affects, medical renal disease or a combination.
[2020-03-17] MEDS: ATORVASTATIN 40 MG TAB PO SCH (20:25)
[2020-03-17] MEDS: DOCUSATE NA 100 MG CAP PO SCH (20:25)
[2020-03-17] MEDS: JUVEN PACKET PO SCH (20:26)
[2020-03-17] MEDS: ENSURE HIGH PROTEIN 237 ML CAN PO SCH (20:26)
[2020-03-18] MEDS: METRONIDAZOLE 500mg IVPB 500 MG/100 ML BAG IV SCH ×3 (02:00→17:45)
[2020-03-18 04:43] LABS: Protime INR 1.4
[2020-03-18 04:49] LABS: Absolute Lymphocytes (CBC) 1.2 K/uL (0.7-4.9); Basophils % 0.5 % (0-1.3); Hematocrit 23.6 % (39.6-49.0); Lymphocytes % 12.5 % (15.3-44.8); MPV 9.5 fL (7.6-11.3); RBC Red Blood Cell Count 2.65 M/uL (4.33-5.43)
[2020-03-18 05:14] LABS: Creatine Phosphokinase 33 U/L (39-308); Ferritin 121.9 ng/mL (26-388); Thyroid Stimulating Hormone 0.931 uIU/mL (0.360-3.740); Transferrin 153 mg/dL (200-360); Uric Acid 7.2 mg/dL (3.5-7.2)
[2020-03-18 05:24] LABS: ALT/SGPT 24 U/L (12-78); AST/SGOT 31 U/L (15-37); Albumin 2.5 g/dL (3.4-5.0); Alkaline Phosphatase 72 U/L (45-117); BUN Blood Urea Nitrogen 81 mg/dL (7-18); Bicarbonate 23 mmol/L (21-32); Bilirubin Total 0.8 mg/dL (0.2-1.0); Folic Acid, (Folate) 6.6 ng/mL (3.1-17.5); Glucose Level 156 mg/dL (74-106); Magnesium 2.5 mg/dL (1.8-2.4); NT PRO-BNP 4977 pg/mL (<450); Potassium 4.1 mmol/L (3.5-5.1); Protein, Total 5.8 g/dL (6.4-8.2); Sodium Level 136 mmol/L (136-145)
[2020-03-18 05:27] LABS: Iron < 5.0 ug/dL (65-175)
[2020-03-18 05:28] LABS: Iron < 5.0 ug/dL (65-175)
[2020-03-18] MEDS: carvediloL 3.125 MG TAB PO SCH ×2 (05:40→17:44)
[2020-03-18] MEDS ORDERED: VANCOMYCIN 1.5 GM in NA CHLORIDE 0.9% 500 ML IVPB SCH (06:00)
--- NOTE | 2020-03-18 06:23 | CON ---
Date of Consultation: 03/17/2020 Reason For Consultation: Congestive heart failure and mitral stenosis. History Of Present Illness: Mr. Burrows is an 84-year-old male has had a rather past complicated medic al history. He has had a right [id number]-[id number] amputation, coronary artery bypass surgery. He has ch ronic atrial fibrillation, status post pacemaker. He has diabetes, coronary artery disease, and hype rtension as well as dyslipidemia. 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 He was unr esponsive upon admission. No cardiac symptoms reported. However, he was found to have slightly elev ated troponin, slightly elevated BNP at 5513. He had an elevated CRP at 103. His white count is jimmy vated. He was in atrial fibrillation at a rate of 94. He was found to have acute renal insufficienc y, poorly controlled diabetes with glucose 186 and he had a hemoglobin of 8.8. As part of his workup , an echocardiogram was done revealed a mild mitral stenosis 1.5 cm2, ejection fraction of 23% with r ight ventricular systolic pressure of 50 mmHg. Past Medical History: As stated above. Allergies: NONE. Review of Systems: Negative. Social History: Positive for alcohol. Medications: At home supposed to be Lipitor, Lasix, Amaryl, potassium, and carvedilol. Physical Examination: Vital Signs: He was in atrial fibrillation rate of 94, otherwise his vital signs are stable. He was afebrile. HEENT: Negative. Neck: Supple with no bruit. Chest: Clear. Cardiac: Revealed an atrial fibrillation with no gallops or rubs. He did have an early diastolic mu rmur at the apex that did not radiate. He also had a 2/6 holosystolic murmur at the third left inter costal space that decreased with inspiration. Abdomen: Benign. Extremities: Revealed status post AKA on the right. Diagnostic Data: As stated earlier. Chest x-ray was unremarkable. EKG showed atrial fibrillation. Impression And Plan: 1.Acute systolic congestive heart failure, ejection fraction of 23%. 2.Mild mitral stenosis. 3.Pulmonary hypertension, moderate. 4.Acute renal insufficiency. 5.Chronic atrial fibrillation. The patient is not a candidate for anticoagulation with lovastatin. He is on carvedilol low dose is rate controlled. We can definitely increase the carvedilol, which would benefit his atrial fibrillat ion as well as his congestive heart failure. He should be on a low dose Lasix if his kidney tolerate d. I will discuss that further with Nephrology. His other problems include history of coronary kayleen ry disease status post CABG, anemia, status post AKA, poorly-controlled diabetes, hypertension, dysli pidemia as well as history of pacemaker which seems to be functioning appropriately. I have no plan for any cardiac intervention on Mr. Burrows at this point. His mitral valve is not bad enough to corre ct at this point. The main issue I believe is his cirrhosis as well as systolic congestive heart shaista lure and acute renal failure. We continue to monitor those and I will continue to follow him along w geneva Edmond as well as Nephrology. NB/MODL Voice ID: [id number] Report ID: [id number]
--- NOTE | 2020-03-18 07:12 | RAD REPORT ---
EXAM DESCRIPTION: RAD - Chest Single View - 03/18/2020 5:50 am CLINICAL HISTORY: pneumonia COMPARISON: Portable March 16 TECHNIQUE: AP portable chest image was obtained 03/18/2020 5:50 am . FINDINGS: CABG surgical changes are noted with left-sided pacemaker in place. No new tube or line. Hazy opacification has developed in the lower right lung field since comparison. Left hemidiaphragm r emains obscured with increased retrocardiac left base opacification. Left costophrenic angle blunting is present. Overall heart size is normal with no significant vascular engorgement. No pneumothorax. No acute bon y abnormality seen. No acute aortic findings suspected. IMPRESSION: Bilateral pleural effusions are present with suspected left base infiltrate. Left base findings are not substantially different. Right-sided pleural effusion may be more prominen t due to differences in positioning and film technique.
[2020-03-18] MEDS: INSULIN -REGULAR HUMAN 50 UNIT/0.5 ML ML SQ SCH ×4 (07:30→20:47)
[2020-03-18 07:41] LABS: Rheumatoid Factor NEG (NEG)
[2020-03-18] MEDS: JUVEN PACKET PO SCH ×2 (09:00→20:46)
[2020-03-18] MEDS: PANTOPRAZOLE 40MG TABLET PO SCH ×2 (09:02→17:44)
[2020-03-18] MEDS: DOCUSATE NA 100 MG CAP PO SCH ×2 (09:02→20:45)
[2020-03-18] MEDS: POTASSIUM CL SA 10 MEQ TAB PO SCH (09:02)
[2020-03-18] MEDS: allopurinoL 300 MG TAB PO SCH (09:02)
[2020-03-18] MEDS: ENOXAPARIN 40 MG/0.4 ML SQ SCH (09:03)
[2020-03-18] MEDS: GLIMEPIRIDE 2 MG TABLET PO SCH (09:03)
[2020-03-18] MEDS: TAMSULOSIN 0.4 MG SR CAP PO SCH (09:03)
[2020-03-18] MEDS: ENSURE HIGH PROTEIN 237 ML CAN PO SCH ×2 (09:04→20:46)
[2020-03-18] MEDS: SOD FERRIC GLUC COMPLX/SUCROSE 125 MG in NA CHLORIDE 0.9% 100 ML IV SCH (09:25)
[2020-03-18] MEDS ORDERED: D50W 25 GM/50 ML VIAL IV PRN (12:00)
--- NOTE | 2020-03-18 12:03 | ECHO ---
HEIGHT: 5 ft 9 in WEIGHT: 206 lb 4.8 oz DATE OF STUDY: 03/17/[address]: Cony Edmond MD 2-DIMENSIONAL: YES M.MODE: YES DOPPLER: YES COLOR FLOW: YES TDS: PORTABLE: DEFINITY: BUBBLE STUDY: DIAGNOSIS: BACTEREMIA CARDIAC HISTORY: CATHERIZATION: YES SURGERY: YES PROSTHETIC VALVE: PACEMAKER: YES MEASUREMENTS (cm) DIASTOLIC (NORMALS) SYSTOLIC (NORMALS) IVSd 1.2 (0.6-1.2) LA Diam 4.2 (1.9-4.0) LVEF 23% LVIDd 4.4 (3.5-5.7) LVIDs 3.9 (2.0-3.5) %FS 11% LVPWd 1.2 (0.6-1.2) Ao Diam 3.1 (2.0-3.7) 2 DIMENSIONAL ASSESSMENT: RIGHT ATRIUM: NORMAL LEFT ATRIUM: DILATED RIGHT VENTRICLE: NORMAL LEFT VENTRICLE: NORMAL SIZE TRICUSPID VALVE: NORMAL MITRAL VALVE: MITRAL STENOSIS PULMONIC VALVE: NORMAL AORTIC VALVE: SCLEROSIS PERICARDIAL EFFUSION: NONE AORTIC ROOT: NORMAL LEFT VENTRICULAR WALL MOTION: SEVERE GLOBAL HYPOKINESIS DOPPLER/COLOR FLOW: MODERATE MITRAL STENOSIS - 1.5 CENTIMETERS SQUARED. MODERATE PULMONARY HYPERTENSION. 50 mmHg RIGHT VENTRICULAR SYSTOLIC PRESSURE. COMMENTS: SEVERE GLOBAL HYPOKINESIS. EJECTION FRACTION 23%. MODERATE MITRAL STENOSIS - 1.5 CENTIMETERS SQUARED. MODERATE PULMONARY HYPERTENSION. RIGHT VENTRICULAR SYSTOLIC PRESSURE 50 mmHg. AORTIC SCLEROSIS - NO STENOSIS. TECHNOLOGIST: CAROLYN DESAI
[2020-03-18] MEDS: Levofloxacin500mg IV 500 MG/100 ML BAG IV SCH (12:35)
--- NOTE | 2020-03-18 15:00 | PN ---
Date of Progress Note: 03/18/2020 Subjective: The patient was admitted with acute kidney injury secondary to prerenal, secondary to colitis. The patient was started on hydration. The patient found to have advanced congestive heart failure. Physical Examination: Vital Signs: Blood pressure 140/72, pulse of 92. The patient had good urine output of 850. Chest: Clear to auscultation. Heart: S1, S2. Regular. Systolic murmur. Abdomen: Soft, nontender. Extremities: Right above-knee amputation. No edema. Laboratory Data: WBC 9.3, H and H 7.8/23.6. Sodium 136, potassium 4.1, bicarb 23, BUN 81, creatinine 1.6. BNP dropped down to 4900. Current Medications: The patient on include; 1. Flomax. 2. Metronidazole. 3. Levothyroxine. 4. Levaquin. 5. Carvedilol. 6. Zofran. 7. Glimepiride. Assessment And Plan: Acute kidney injury on chronic kidney disease secondary to contrast induced nephropathy with chronic kidney disease secondary to cardiorenal, normal volume. I am going to go ahead and discontinue IV fluid currently. We will monitor the patient closely. We will follow up his lab. Next, I spoke to Dr. Edmond and apparently as by Dr. Ventura and family, the patient is being followed with Dr. Jerome. The patient can be follow up from now on by the other group of Nephrology and Dr. Jerome as a primary horse race starter. 1. Hypertension, controlled optimal. Continue current treatment. Keep holding any PORTIA inhibitor or ARB. Keep holding diuresis. 2. Coronary artery disease, congestive heart failure, ejection fraction of 23%. Keep holding IV fluid. Hold Lasix. We will follow up. 3. Colitis, as by primary. 4. As I mentioned, the patient is going to be followed with Dr. Jerome and her group as primary horse race starter. MTime spent discussing with the patient examined the patient's face to face, discuss the case with other retail consultant and of what staff member placing order 45 min A/MODL Voice ID: [id number] Report ID: [id number] [facility]
[2020-03-18] MEDS ORDERED: DIPHENHYDRAMINE 25 MG TAB/CAP PO ONE (16:00)
--- NOTE | 2020-03-18 16:05 | P.PN ---
Subjective Date of Service: 03/18/20 Chief Complaint: Colitis Patient seen and examined at bedside. Complains of cough but denies SOB or dyspnea. CXR has been ordered. Review of Systems 10-point ROS is otherwise unremarkable Physical Examination - Vital Signs Temperature: 97.3 F Blood Pressure: 140/72 Pulse: 92 Respirations: 20 Pulse Ox (%): 95 - Physical Exam Other Physical/Emotional Findings: General: In no apparent distress, Oriented x3. HEENT: Atraumatic, Normocephalic, PERRLA. Neck: Supple, 2+ carotid pulse no bruit, JVD not distended, No Thyromegaly. Respiratory: crackles more prominant on the right, Normal air movement. Cardiovascular: No edema, No murmurs, Irregular heart rate/rhythm. Capillary refill: <2 Seconds. Gastrointestinal: Normal bowel sounds, Soft and benign, Non-distended. Musculoskeletal: No clubbing, No swelling. Integumentary: No rashes, No break down, Other (previous stage 3 sacral ulcer-healing. New skin tear noted.) - Studies Microbiology Data (last 24 hrs): 03/16/20 07:45 Catheterized Urine Eastman Count - Final No growth. 03/16/20 07:45 Catheterized Urine - Final No growth. 03/16/20 07:50 Blood - Blood Aerobic Blood Culture - Final Meth Resistant Staph Aureus 03/16/20 07:50 Blood - Blood Blood Culture Gram Stain - Final 03/16/20 07:50 Blood - Blood Anaerobic Blood Culture - Final Meth Resistant Staph Aureus 03/16/20 07:50 Blood - Blood Gram Stain - Final Assessment And Plan - Plan Conclusions/Impression: Assessment 1. bacteremia 2. previous stage 3 sacral ulcer 3. leukocytosis 4. colitis 5. DM type 2 6. anemia 7. a fib w/ rvr 8. CURTIS plan: 1. blood cultures on 03/16 grew coagulase positive staph-patient currently on metronidazole, levaqin, and vancomycin. Continue at this time. 2. previous stage 3 ulcer-healing. New skin tear present. Apply barrier cream to the area. 3. leukocytosis- resolved. -Hgb 7.8-recommend transufsion if Hgb drops below 7 or the patient becomes symptomatic. -medical management per primary team -will continue to monitor CBC/BMP -continue to monitor for signs of infection. Plan of care discussed with Dr. Ji. Thank you for consultation.
--- NOTE | 2020-03-18 17:53 | RAD REPORT ---
EXAM DESCRIPTION: Del[place] Single View03/18/2020 5:01 pm CLINICAL HISTORY: Cough COMPARISON: March 18 FINDINGS: Right pleural effusion and basilar atelectasis has diminished since the prior exam. No significant change in the left pleural effusion and basilar atelectasis Heart remains enlarged. Pacemaker leads in place. Postsurgical changes involve the chest
[2020-03-18] MEDS: ATORVASTATIN 40 MG TAB PO SCH (20:45)
--- NOTE | 2020-03-18 21:03 | PN ---
Date of Progress Note: 03/18/2020 Subjective: The patient was seen and examined at bedside. The patient was being seen by Dr. Nicol rodgers and we have transitioned over service as patient has been a chronic patient of ours. Objective: Vital Signs: Have been reviewed and are stable. General Examination: He appears in no acute distress. HEENT: Atraumatic head. Lungs: Auscultation of lungs revealed bilateral equal air entry. Extremities: Right AKA was noted and left lower extremity without any evidence of edema was noted. Laboratory Data: At this time are showing sodium of 136, potassium of 4.1, chloride of 105, bicarb o f 23, BUN of 81, and creatinine of 1.67. Calcium was 7.2. PTH intact, PTH was 130.2, and CBC showed hemoglobin of 7.8, hematocrit of 23.6, and platelet count of 144, and WBC count improving to 9.3. Current Medications: Include allopurinol 300 mg a day, carvedilol 3.125 mg b.i.d., Lovenox for deep vein thrombosis prophylaxis, Ensure, Flagyl 500 mg every 8 hours, glimepiride 2 mg with breakfast and Levaquin 500 mg daily, Ferrlecit, tamsulosin and vancomycin 1.5 g every 36 hours. Impression: 1.Acute on chronic renal insufficiency secondary to acute tubular necrosis, currently with overall s table renal function. The patient is currently not receiving any nephrotoxic medications. We will c ontinue to monitor. 2.Bacteremia possibly from the decubitus ulcer. The patient is currently on vancomycin, Flagyl and Levaquin. We will obtain repeat cultures and monitor. 3.Stage III sacral ulcer, seems to be healing at this time and the patient is being followed by wo d care team. 4.Leukocytosis, improving. 5.Anemia with drop in hemoglobin and hematocrit. The patient's iron levels have been checked and he is receiving IV iron at this time. I am not sure if the iron levels are indicative of iron deficien cy as they could have been drawn after blood transfusion. We will continue to follow up on the iron levels and hemoglobin and transfuse as needed. Continue to monitor closely. VV/MODL Voice ID: [id number] Report ID: [id number]
[2020-03-19] MEDS: METRONIDAZOLE 500mg IVPB 500 MG/100 ML BAG IV SCH ×3 (01:17→16:21)
[2020-03-19 04:53] LABS: Absolute Lymphocytes (CBC) 1.2 K/uL (0.7-4.9); Basophils % 0.2 % (0-1.3); Hematocrit 25.6 % (39.6-49.0); Lymphocytes % 10.4 % (15.3-44.8); MPV 9.2 fL (7.6-11.3); RBC Red Blood Cell Count 2.85 M/uL (4.33-5.43)
[2020-03-19 05:08] LABS: Albumin 2.5 g/dL (3.4-5.0); Magnesium 2.6 mg/dL (1.8-2.4); Phosphorus 2.1 mg/dL (2.5-4.9); Potassium 4.1 mmol/L (3.5-5.1)
[2020-03-19] MEDS: carvediloL 3.125 MG TAB PO SCH ×2 (05:17→17:13)
[2020-03-19] MEDS: INSULIN -REGULAR HUMAN 50 UNIT/0.5 ML ML SQ SCH ×4 (07:30→21:00)
[2020-03-19] MEDS: GLIMEPIRIDE 2 MG TABLET PO SCH (08:14)
[2020-03-19] MEDS: PANTOPRAZOLE 40MG TABLET PO SCH ×2 (08:14→16:20)
[2020-03-19] MEDS: SOD FERRIC GLUC COMPLX/SUCROSE 125 MG in NA CHLORIDE 0.9% 100 ML IV SCH (08:15)
[2020-03-19] MEDS: DOCUSATE NA 100 MG CAP PO SCH ×2 (08:15→21:09)
[2020-03-19] MEDS: TAMSULOSIN 0.4 MG SR CAP PO SCH (08:16)
[2020-03-19] MEDS: allopurinoL 300 MG TAB PO SCH (08:16)
[2020-03-19] MEDS: POTASSIUM CL SA 10 MEQ TAB PO SCH (08:16)
[2020-03-19] MEDS: ENOXAPARIN 40 MG/0.4 ML SQ SCH (08:17)
[2020-03-19] MEDS: POTASS/SODIUM PHOSPHATE 1 PKT POWD.PACK PO SCH ×3 (08:17→11:00)
[2020-03-19] MEDS: JUVEN PACKET PO SCH ×2 (08:17→21:09)
[2020-03-19] MEDS: ENSURE HIGH PROTEIN 237 ML CAN PO SCH ×2 (09:00→21:09)
[2020-03-19] MEDS: ACETAMINOPHEN 500 MG TAB PO PRN ×2 (10:01→16:20)
--- NOTE | 2020-03-19 11:01 | P.PN ---
Subjective Date of Service: 03/19/20 Chief Complaint: Colitis Patient seen and examined at bedside. Patient complains of productive cough with yellow tinged sputum. Also complains of orthopnea-says sitting up in bed with pillows is the most comfortable position for him to be in. Review of Systems 10-point ROS is otherwise unremarkable Respiratory: As per HPI Physical Examination - Vital Signs Temperature: 98.5 F Blood Pressure: 164/90 Pulse: 77 Respirations: 20 Pulse Ox (%): 93 - Physical Exam Other Physical/Emotional Findings: General: In no apparent distress, Oriented x3. HEENT: Atraumatic, Normocephalic, PERRLA. Neck: Supple, 2+ carotid pulse no bruit, JVD not distended, No Thyromegaly. Respiratory: crackles more prominant on the right, Normal air movement. Cardiovascular: No edema, No murmurs, Irregular heart rate/rhythm. Capillary refill: <2 Seconds. Gastrointestinal: Normal bowel sounds, Soft and benign, Non-distended. Musculoskeletal: No clubbing, No swelling. Integumentary: No rashes, No breakdown, Other (previous stage 3 sacral ulcer-healing. New skin tear noted.) - Studies Microbiology Data (last 24 hrs): 03/16/20 07:45 Catheterized Urine [place] Count - Final No growth. 03/16/20 07:45 Catheterized Urine - Final No growth. 03/16/20 07:50 Blood - Blood Aerobic Blood Culture - Final Meth Resistant Staph Aureus 03/16/20 07:50 Blood - Blood Blood Culture Gram Stain - Final 03/16/20 07:50 Blood - Blood Anaerobic Blood Culture - Final Meth Resistant Staph Aureus 03/16/20 07:50 Blood - Blood Gram Stain - Final Assessment And Plan - Plan Conclusions/Impression: Assessment 1. bacteremia 2. previous stage 3 sacral ulcer 3. leukocytosis 4. colitis 5. DM type 2 6. anemia 7. a fib w/ rvr 8. CURTIS 9. bilateral pleural effusion plan: 1. blood cultures on 03/16 grew coagulase positive staph-patient currently on metronidazole, levaqin, and vancomycin. Continue at this time. 2. previous stage 3 ulcer-healing. New skin tear present. Apply barrier cream to the area. 3. leukocytosis- resolved. 9. Ches xray on 03/18 showed bilateral pleural effusion. Repeat chest xray has been ordered. Patient complains of productive cough. -Hgb 7.8-recommend transufsion if Hgb drops below 7 or the patient becomes symptomatic. -medical management per primary team -will continue to monitor CBC/BMP -continue to monitor for signs of infection. Plan of care discussed with Dr. Ji. Thank you for consultation.
[2020-03-19] MEDS: Levofloxacin500mg IV 500 MG/100 ML BAG IV SCH (12:13)
--- NOTE | 2020-03-19 19:49 | RAD REPORT ---
EXAM DESCRIPTION: RAD - Chest Single View - 03/19/2020 7:35 pm CLINICAL HISTORY: PICC line placement COMPARISON: Portable March 18 FINDINGS: Portable chest was obtained following placement of a right upper extremity PICC line. The catheter tip is in the mid to distal SVC.
[2020-03-19] MEDS: ATORVASTATIN 40 MG TAB PO SCH (21:09)
[2020-03-19] MEDS: VANCOMYCIN 1.75 GM in NA CHLORIDE 0.9% 500 ML IVPB SCH (21:09)
--- NOTE | 2020-03-19 21:24 | P.PN ---
Date of Service: 03/19/20 Vital Signs Temp Pulse Resp BP Pulse Ox 97.7 F 98 H 20 135/57 L 91 03/19/20 16:00 03/19/20 16:00 03/19/20 16:00 03/19/20 16:00 03/19/20 16:00 Medications Acetaminophen (Acetaminophen 500 Mg Tab) 500 mg PO Q4HP PRN PRN Reason: pain/fever Last Admin: 03/19/20 16:20 Dose: 500 mg Documented by: Allopurinol (Allopurinol 300 Mg Tab) 300 mg PO DAILY [facility] Last Admin: 03/19/20 08:16 Dose: 300 mg Documented by: Atorvastatin Calcium (Atorvastatin 40 Mg Tab) 40 mg PO BEDTIME [facility] Last Admin: 03/19/20 21:09 Dose: 40 mg Documented by: Bisacodyl (Bisacodyl 10 Mg Rectal Supp) 10 mg [place] DAILY PRN PRN Reason: CONSTIPATION Carvedilol (Carvedilol 3.125 Mg Tab) 3.125 mg PO BID 6AM 6PM [facility] Last Admin: 03/19/20 17:13 Dose: 3.125 mg Documented by: Dextrose (D50w 25 Gm/50 Ml Vial) 12.5 gm IV PRN PRN; Protocol PRN Reason: HYPOGLYCEMIA Docusate Sodium (Docusate Na 100 Mg Cap) 100 mg PO BID [facility] Last Admin: 03/19/20 21:09 Dose: 100 mg Documented by: Enoxaparin Sodium (Enoxaparin 40 Mg/0.4 Ml) 40 mg SQ DAILY [facility] Last Admin: 03/19/20 08:17 Dose: 40 mg Documented by: Glimepiride (Glimepiride 2 Mg Tablet) 2 mg PO DAILY WITH BREAKFAST [facility] Last Admin: 03/19/20 08:14 Dose: 2 mg Documented by: Glucagon (Glucagon 1 Mg/Vial) 1 mg IM 1X PRN; Protocol PRN Reason: HYPOGLYCEMIA Levofloxacin/Dextrose (Levaquin 500 Mg/100 Ml Ivpb) 500 mg in 100 mls @ 100 mls/hr IV Q24H [facility]; Protocol Last Admin: 03/19/20 12:13 Dose: 100 mls Documented by: Metronidazole/Sodium Chloride (Flagyl 500mg/100 Ml Iv Premix) 500 mg in 100 mls @ 200 mls/hr IV Q8HR [facility]; Protocol Last Admin: 03/19/20 16:21 Dose: 100 mls Documented by: Sodium Chloride (Ns 1000 Ml Ivbag) 1,000 mls @ 0 mls/hr IV .Q0M [facility] Last Admin: 03/19/20 12:13 Dose: 1,000 mls Documented by: Ferric Sodium Gluconate Complex 125 mg/ Sodium Chloride 110 mls @ 100 mls/hr IV DAILY [facility] Stop: 03/25/20 10:05 Last Admin: 03/19/20 08:15 Dose: 110 mls Documented by: Vancomycin HCl 1.75 gm/ Sodium (Chloride) 500 mls @ 250 mls/hr IVPB Q36H [facility] Last Admin: 03/19/20 21:09 Dose: 500 mls Documented by: Insulin Human Regular (Insulin -Regular Human 50 Unit/0.5 Ml Ml) 0 unit SQ ACHS [facility]; Protocol Last Admin: 03/19/20 21:00 Dose: Not Given Documented by: L-Arginine/L-Glutamine/HMB (Vikram Packet) 1 pkt PO BID [facility] Last Admin: 03/19/20 21:09 Dose: 1 pkt Documented by: Nutritional Formula (Ensure High Protein 237 Ml Can) 237 ml PO BID [facility] Last Admin: 03/19/20 21:09 Dose: 237 ml Documented by: Ondansetron HCl (Ondansetron 4 Mg/2 Ml Vial) 4 mg IV Q6HP PRN PRN Reason: NAUSEA / VOMITING Pantoprazole Sodium (Pantoprazole 40mg Tablet) 40 mg PO BIDAC [facility]; Protocol Last Admin: 03/19/20 16:20 Dose: 40 mg Documented by: Potassium Chloride (Potassium Cl Sa 10 Meq Tab) 20 meq PO DAILY [facility] Last Admin: 03/19/20 08:16 Dose: 20 meq Documented by: Sodium Chloride (Flush Normal Saline 10 Ml) 10 ml IV BID [facility] Last Admin: 03/19/20 21:09 Dose: 10 ml Documented by: Tamsulosin HCl (Tamsulosin 0.4 Mg Sr Cap) 0.4 mg PO DAILY [facility] Last Admin: 03/19/20 08:16 Dose: 0.4 mg Documented by: Microbiology Results 03/16/20 07:45 Catheterized Urine [place] Count - Final No growth. 03/16/20 07:45 Catheterized Urine - Final No growth. 03/16/20 07:50 Blood - Blood Aerobic Blood Culture - Final Meth Resistant Staph Aureus 03/16/20 07:50 Blood - Blood Blood Culture Gram Stain - Final 03/16/20 07:50 Blood - Blood Anaerobic Blood Culture - Final Meth Resistant Staph Aureus 03/16/20 07:50 Blood - Blood Gram Stain - Final 03/16/20 07:35 Blood - Blood Aerobic Blood Culture - Preliminary Meth Resistant Staph Aureus 03/16/20 07:35 Blood - Blood Anaerobic Blood Culture - Preliminary Meth Resistant Staph Aureus 03/16/20 07:35 Blood - Blood Gram Stain - Preliminary Assessment/ Plan: Nephrology No acute cardiac or pulmonary compaints. No CP or SOB. Good appetite No acute events overnight. Vitals, medications, blood work and imaging reviewed in the chart. NAD. Obese. MMM. Neck supple. CTA. RRR. Soft Abd. No C/C/E. Right AKA. No rash. AAO. Normal Speech. A/P: Continue the current POC and Medications other than the changes listed. AM Labs PRN. Recommend daily weight. Please see the orders for complete details. CURTIS suspicious for ATN CKD III -No NSAIDs Hypokalemia -Replete daily potassium Hypocalcemia -Start Vitamin D HypoPO4 -Encourage nutrition DM II with CKD -Continue glimeperide Anemia in chronic illness Iron deficiency -Continue IV iron BPH with LUTS -Continue Flomax Gout -Continue Allopurinol Bacteremia -Continue Levaquin and Vancomycin
[2020-03-20] MEDS: METRONIDAZOLE 500mg IVPB 500 MG/100 ML BAG IV SCH ×3 (01:32→18:06)
[2020-03-20] MEDS: carvediloL 3.125 MG TAB PO SCH ×2 (06:17→18:06)
[2020-03-20] MEDS: INSULIN -REGULAR HUMAN 50 UNIT/0.5 ML ML SQ SCH ×4 (07:30→21:00)
--- NOTE | 2020-03-20 08:11 | RAD REPORT ---
EXAM DESCRIPTION: [place] Single View03/20/2020 4:42 am CLINICAL HISTORY: Chest pain COMPARISON: March 18 FINDINGS: Small to moderate bilateral pleural effusions may be present with bibasilar atelectasis The heart remains enlarged. Postsurgical changes involve the chest. Pacemaker lead in place
[2020-03-20 08:16] LABS: Absolute Lymphocytes (CBC) 1.2 K/uL (0.7-4.9); Basophils % 0.4 % (0-1.3); Hematocrit 23.5 % (39.6-49.0); Lymphocytes % 14.7 % (15.3-44.8); MPV 9.2 fL (7.6-11.3); RBC Red Blood Cell Count 2.64 M/uL (4.33-5.43)
[2020-03-20 08:37] LABS: Albumin 2.5 g/dL (3.4-5.0); Bilirubin Direct 0.4 mg/dL (0-0.2); Bilirubin Total 0.7 mg/dL (0.2-1.0); Ferritin 363.8 ng/mL (26-388); Magnesium 2.4 mg/dL (1.8-2.4); Phosphorus 2.1 mg/dL (2.5-4.9); Potassium 4.2 mmol/L (3.5-5.1); Thyroid Stimulating Hormone 1.06 uIU/mL (0.360-3.740)
[2020-03-20 08:59] LABS: Anisocytosis 2+; Blood Morphology Comment NOTED (NOT SEEN); Hypochromasia 1+; Platelet Estimate ADEQ; White Blood Cell Scan OK (OK)
[2020-03-20 09:00] LABS: Burr Cells 2+; Poikilocytosis 2+; Polychromasia SLIGHT
[2020-03-20] MEDS: ENSURE HIGH PROTEIN 237 ML CAN PO SCH ×2 (09:00→21:00)
[2020-03-20] MEDS: JUVEN PACKET PO SCH ×2 (09:00→21:00)
--- NOTE | 2020-03-20 09:11 | P.PN ---
Date of Service: 03/18/20 Subjective Patient shortness of breath somewhat better. Congestive heart failure being medically treated. Renal consultation appreciated. Blood cx are positive MRSA; arranging for antibiotic therapy Physical Examination - Vital Signs Reviewed - Physical Exam General: Alert, In no apparent distress, Oriented x3 Respiratory: Clear to auscultation bilaterally, Normal air movement Cardiovascular: Regular rate/rhythm, Normal S1 S2, No murmurs Gastrointestinal: Normal bowel sounds, Soft and benign, Non-distended, Tenderness Musculoskeletal: No clubbing Assessment & Plan - Problems (Diagnosis) (1) MRSA bacteremia Current Visit: Yes Status: Acute (2) Acute kidney injury Current Visit: Yes Status: Acute (3) Leukocytosis Current Visit: Yes Status: Acute (4) Elevated procalcitonin Current Visit: Yes Status: Acute (5) Elevated bilirubin Current Visit: Yes Status: Acute (6) History of femoropopliteal bypass Current Visit: No Status: Acute (7) Hyperlipidemia Current Visit: No Status: Chronic Qualifiers: Hyperlipidemia type: unspecified Qualified Code(s): E78.5 - Hyperlipidemia, unspecified (8) Hypertension Current Visit: No Status: Chronic Qualifiers: Hypertension type: essential hypertension Qualified Code(s): I10 - Essential (primary) hypertension (9) Pacemaker Current Visit: No Status: Chronic (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 Continue with gentle IV hydration 2. Continue with IV antibiotics 3. Continue with pain control 4. Diet as tolerated 5. GI consultation appreciated; 6. Serial H&H, and we will monitor CBC, BMP, LFTs and lipase along with electrolytes. 7. Continue cardiac meds-rate controlled and anticoagulated 8. Monitor renal function closely 9. Repeat procalcitonin level 10. GI and DVT prophylaxis - Advance Directives Does patient have a Living Will: Yes Does patient have a Durable POA for Healthcare: No - Code Status/Comfort Care Code Status: Full Code
--- NOTE | 2020-03-20 09:12 | P.PN ---
Date of Service: 03/19/20 Subjective Patient is doing well with no new complaints. Patient continues to improve. Physical Examination - Vital Signs Reviewed - Physical Exam General: Alert, In no apparent distress, Oriented x3 Respiratory: Clear to auscultation bilaterally, Normal air movement Cardiovascular: Regular rate/rhythm, Normal S1 S2, No murmurs Gastrointestinal: Normal bowel sounds, Soft and benign, Non-distended, Tenderness Musculoskeletal: No clubbing Assessment & Plan - Problems (Diagnosis) (1) MRSA bacteremia Current Visit: Yes Status: Acute (2) Acute kidney injury Current Visit: Yes Status: Acute (3) Leukocytosis Current Visit: Yes Status: Acute (4) Elevated procalcitonin Current Visit: Yes Status: Acute (5) Elevated bilirubin Current Visit: Yes Status: Acute (6) History of femoropopliteal bypass Current Visit: No Status: Acute (7) Hyperlipidemia Current Visit: No Status: Chronic Qualifiers: Hyperlipidemia type: unspecified Qualified Code(s): E78.5 - Hyperlipidemia, unspecified (8) Hypertension Current Visit: No Status: Chronic Qualifiers: Hypertension type: essential hypertension Qualified Code(s): I10 - Essential (primary) hypertension (9) Pacemaker Current Visit: No Status: Chronic (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 Hep-Lock IV 2. Continue with IV antibiotics 3. Continue with pain control ; diet is controlled and GI consultation was appreciated. We continue monitoring labs closely. 4. GI and DVT prophylaxis - Advance Directives Does patient have a Living Will: Yes Does patient have a Durable POA for Healthcare: No - Code Status/Comfort Care Code Status: Full Code
[2020-03-20] MEDS: SOD FERRIC GLUC COMPLX/SUCROSE 125 MG in NA CHLORIDE 0.9% 100 ML IV SCH (10:01)
[2020-03-20] MEDS: POTASSIUM CL SA 10 MEQ TAB PO SCH (10:02)
[2020-03-20] MEDS: GLIMEPIRIDE 2 MG TABLET PO SCH (10:03)
[2020-03-20] MEDS: TAMSULOSIN 0.4 MG SR CAP PO SCH (10:03)
[2020-03-20] MEDS: PANTOPRAZOLE 40MG TABLET PO SCH ×2 (10:03→16:38)
[2020-03-20] MEDS: DOCUSATE NA 100 MG CAP PO SCH ×2 (10:04→21:00)
[2020-03-20] MEDS: ENOXAPARIN 40 MG/0.4 ML SQ SCH (10:04)
[2020-03-20] MEDS: allopurinoL 300 MG TAB PO SCH (10:04)
--- NOTE | 2020-03-20 10:43 | P.PN ---
Subjective Date of Service: 03/20/20 Chief Complaint: Colitis Patient seen and examined at bedside. Productive cough still present. NO O2 support tat this time-patient does not like to use NC. Reamins afebrile hoever is tachy today with a pulse of 101. Review of Systems 10-point ROS is otherwise unremarkable Physical Examination - Vital Signs Temperature: 96.8 F Blood Pressure: 131/56 Pulse: 101 Respirations: 20 Pulse Ox (%): 95 - Physical Exam Other Physical/Emotional Findings: General: In no apparent distress, Oriented x3. HEENT: Atraumatic, Normocephalic, PERRLA. Neck: Supple, 2+ carotid pulse no bruit, JVD not distended, No Thyromegaly. Respiratory: bilateral crackles/rhonci, Normal air movement. Cardiovascular: No edema, No murmurs, Irregular heart rate/rhythm. Capillary refill: <2 Seconds. Gastrointestinal: Normal bowel sounds, Soft and benign, Non-distended. Musculoskeletal: No clubbing, No swelling. Integumentary: No rashes, No breakdown, Other (previous stage 3 sacral ulcer-healing. New skin tear noted.) Assessment And Plan - Plan Conclusions/Impression: Assessment 1. bacteremia 2. previous stage 3 sacral ulcer 3. leukocytosis 4. colitis 5. DM type 2 6. anemia 7. a fib w/ rvr 8. CURTIS 9. bilateral pleural effusion plan: 1. blood cultures on 03/16 grew coagulase positive staph-patient currently on metronidazole, levaqin, and vancomycin. Continue at this time. Repeat blood cultures on 03/18: still positive. 2. previous stage 3 ulcer-healing. New skin tear present. Apply barrier cream to the area. 3. leukocytosis- resolved. 9. Ches xray on 03/18 showed bilateral pleural effusion. Repeat CXR on 03/20 confirms bilateral plural effusion. -Hgb 7.5-recommend transufsion if Hgb drops below 7 or the patient becomes symptomatic. -medical management per primary team -will continue to monitor CBC/BMP -continue to monitor for signs of infection. Plan of care discussed with Dr. Ji. Thank you for consultation.
[2020-03-20 11:48] LABS: Absolute Lymphocytes (CBC) 1.2 K/uL (0.7-4.9); Basophils % 0.7 % (0-1.3); Hematocrit 23.6 % (39.6-49.0); Lymphocytes % 16.7 % (15.3-44.8); MPV 8.8 fL (7.6-11.3); RBC Red Blood Cell Count 2.63 M/uL (4.33-5.43)
[2020-03-20] MEDS: Levofloxacin500mg IV 500 MG/100 ML BAG IV SCH (12:12)
[2020-03-20] MEDS ORDERED: NA CHLORIDE 0.9% 250 ML ONE (14:07)
[2020-03-20] MEDS ORDERED: FUROSEMIDE 20 MG/ 2ML VIAL IV ONE (14:32)
[2020-03-20] MEDS ORDERED: CODEINE 12mg/APAP 120mg PER 5 ML UCUP PO PRN (14:49)
[2020-03-20] MEDS ORDERED: CEPACOL LOZENGES PO PRN (14:49)
[2020-03-20] MEDS ORDERED: TEMAZEPAM 15 MG CAP PO PRN (14:51)
[2020-03-20] MEDS ORDERED: LACTULOSE 20 GM/30 ML UCUP PO PRN (14:53)
[2020-03-20] MEDS ORDERED: LACTULOSE 20 GM/30 ML UCUP PO ONE (15:00)
[2020-03-20] MEDS ORDERED: FUROSEMIDE 40 MG/4 ML VIAL IV ONE (19:07)
[2020-03-20 21:17] LABS: Hematocrit 26.6 % (39.6-49.0)
--- NOTE | 2020-03-20 21:51 | P.PN ---
Date of Service: 03/20/20 Vital Signs Temp Pulse Resp BP Pulse Ox 97.9 F 86 20 165/89 H 95 03/20/20 16:00 03/20/20 18:06 03/20/20 16:00 03/20/20 18:06 03/20/20 16:00 Medications Acetaminophen (Acetaminophen 500 Mg Tab) 500 mg PO Q4HP PRN PRN Reason: pain/fever Last Admin: 03/19/20 16:20 Dose: 500 mg Documented by: Acetaminophen/Codeine Phosphate (Codeine 12mg/Apap 120mg Per 5 Ml Ucup) 10 ml PO Q4H PRN PRN Reason: COUGH Allopurinol (Allopurinol 300 Mg Tab) 300 mg PO DAILY [facility] Last Admin: 03/20/20 10:04 Dose: 300 mg Documented by: Atorvastatin Calcium (Atorvastatin 40 Mg Tab) 40 mg PO BEDTIME [facility] Last Admin: 03/19/20 21:09 Dose: 40 mg Documented by: Bisacodyl (Bisacodyl 10 Mg Rectal Supp) 10 mg [place] DAILY PRN PRN Reason: CONSTIPATION Carvedilol (Carvedilol 3.125 Mg Tab) 3.125 mg PO BID 6AM 6PM [facility] Last Admin: 03/20/20 18:06 Dose: 3.125 mg Documented by: Cetylpyridinium Chloride/Menthol (Cepacol Lozenges) 1 aakash PO Q4H PRN PRN Reason: COUGH Dextrose (D50w 25 Gm/50 Ml Vial) 12.5 gm IV PRN PRN; Protocol PRN Reason: HYPOGLYCEMIA Docusate Sodium (Docusate Na 100 Mg Cap) 100 mg PO BID [facility] Last Admin: 03/20/20 10:04 Dose: 100 mg Documented by: Enoxaparin Sodium (Enoxaparin 40 Mg/0.4 Ml) 40 mg SQ DAILY [facility] Last Admin: 03/20/20 10:04 Dose: 40 mg Documented by: Furosemide (Furosemide 40 Mg/4 Ml Vial) 40 mg IV Q8HR [facility] Glimepiride (Glimepiride 2 Mg Tablet) 2 mg PO DAILY WITH BREAKFAST [facility] Last Admin: 03/20/20 10:03 Dose: 2 mg Documented by: Glucagon (Glucagon 1 Mg/Vial) 1 mg IM 1X PRN; Protocol PRN Reason: HYPOGLYCEMIA Guaifenesin (Guaifenesin 600 Mg Sa Tab) 1,200 mg PO BID [facility] Levofloxacin/Dextrose (Levaquin 500 Mg/100 Ml Ivpb) 500 mg in 100 mls @ 100 mls/hr IV Q24H [facility]; Protocol Last Admin: 03/20/20 12:12 Dose: 100 mls Documented by: Metronidazole/Sodium Chloride (Flagyl 500mg/100 Ml Iv Premix) 500 mg in 100 mls @ 200 mls/hr IV Q8HR [facility]; Protocol Last Admin: 03/20/20 18:06 Dose: 100 mls Documented by: Sodium Chloride (Ns 1000 Ml Ivbag) 1,000 mls @ 0 mls/hr IV .Q0M [facility] Last Admin: 03/19/20 12:13 Dose: 1,000 mls Documented by: Ferric Sodium Gluconate Complex 125 mg/ Sodium Chloride 110 mls @ 100 mls/hr IV DAILY [facility] Stop: 03/25/20 10:05 Last Admin: 03/20/20 10:01 Dose: 110 mls Documented by: Vancomycin HCl 1.75 gm/ Sodium (Chloride) 500 mls @ 250 mls/hr IVPB Q36H [facility] Last Admin: 03/19/20 21:09 Dose: 500 mls Documented by: Insulin Human Regular (Insulin -Regular Human 50 Unit/0.5 Ml Ml) 0 unit SQ ACHS [facility]; Protocol Last Admin: 03/20/20 16:38 Dose: 2 unit Documented by: L-Arginine/L-Glutamine/HMB (Vikram Packet) 1 pkt PO BID [facility] Last Admin: 03/20/20 09:00 Dose: Not Given Documented by: Lactulose (Lactulose 20 Gm/30 Ml Ucup) 20 gm PO DAILY PRN PRN Reason: CONSTIPATION Nutritional Formula (Ensure High Protein 237 Ml Can) 237 ml PO BID [facility] Last Admin: 03/20/20 09:00 Dose: Not Given Documented by: Ondansetron HCl (Ondansetron 4 Mg/2 Ml Vial) 4 mg IV Q6HP PRN PRN Reason: NAUSEA / VOMITING Pantoprazole Sodium (Pantoprazole 40mg Tablet) 40 mg PO BIDAC [facility]; Protocol Last Admin: 03/20/20 16:38 Dose: 40 mg Documented by: Potassium Chloride (Potassium Cl Sa 10 Meq Tab) 20 meq PO DAILY [facility] Last Admin: 03/20/20 10:02 Dose: 20 meq Documented by: Sodium Chloride (Flush Normal Saline 10 Ml) 10 ml IV BID [facility] Last Admin: 03/20/20 09:00 Dose: 10 ml Documented by: Tamsulosin HCl (Tamsulosin 0.4 Mg Sr Cap) 0.4 mg PO DAILY [facility] Last Admin: 03/20/20 10:03 Dose: 0.4 mg Documented by: Temazepam (Temazepam 15 Mg Cap) 15 mg PO BEDTIME PRN PRN PRN Reason: INSOMNIA Microbiology Results 03/16/20 07:45 Catheterized Urine [place] Count - Final No growth. 03/16/20 07:45 Catheterized Urine - Final No growth. 03/16/20 07:50 Blood - Blood Aerobic Blood Culture - Final Meth Resistant Staph Aureus 03/16/20 07:50 Blood - Blood Blood Culture Gram Stain - Final 03/16/20 07:50 Blood - Blood Anaerobic Blood Culture - Final Meth Resistant Staph Aureus 03/16/20 07:50 Blood - Blood Gram Stain - Final 03/16/20 07:35 Blood - Blood Aerobic Blood Culture - Preliminary Meth Resistant Staph Aureus 03/16/20 07:35 Blood - Blood Anaerobic Blood Culture - Preliminary Meth Resistant Staph Aureus 03/16/20 07:35 Blood - Blood Gram Stain - Preliminary Assessment/ Plan: Nephrology No acute cardiac or pulmonary compaints. No CP or SOB. Good appetite Reports insomnia, sore throat and cough. No acute events overnight. Vitals, medications, blood work and imaging reviewed in the chart. NAD. Obese. MMM. Neck supple. CTA. RRR. Soft Abd. No C/C/E. Right AKA. No rash. AAO. Normal Speech. A/P: Continue the current POC and Medications other than the changes listed. AM Labs PRN. Recommend daily weight. Please see the orders for complete details. CURTIS suspicious for ATN CKD III -No NSAIDs -Continue furosemide. Hypokalemia -Replete daily potassium Hypocalcemia -Continue Vitamin D HypoPO4 -Encourage nutrition DM II with CKD -Continue glimeperide Anemia in chronic illness Iron deficiency -Continue IV iron BPH with LUTS -Continue Flomax Gout -Continue Allopurinol Bacteremia -Continue Levaquin and Vancomycin Start Tylenol with codeine for cough. Start Cepacol lozenge for sore throat. Give Lactulose for constipation. Start Restoril for insomnia.
[2020-03-20] MEDS: ATORVASTATIN 40 MG TAB PO SCH (22:11)
[2020-03-20] MEDS: GUAIFENESIN 600 MG SA TAB PO SCH (22:11)
[2020-03-21] MEDS: FUROSEMIDE 40 MG/4 ML VIAL IV SCH ×3 (00:21→18:05)
[2020-03-21] MEDS: METRONIDAZOLE 500mg IVPB 500 MG/100 ML BAG IV SCH ×3 (00:22→17:00)
[2020-03-21 04:59] LABS: Albumin 2.6 g/dL (3.4-5.0); Phosphorus 1.9 mg/dL (2.5-4.9); Potassium 3.5 mmol/L (3.5-5.1)
[2020-03-21] MEDS: carvediloL 3.125 MG TAB PO SCH ×2 (05:41→18:06)
[2020-03-21] MEDS: VANCOMYCIN 1.75 GM in NA CHLORIDE 0.9% 500 ML IVPB SCH (05:43)
[2020-03-21 06:30] VITALS: BMI 30.5
[2020-03-21] MEDS: INSULIN -REGULAR HUMAN 50 UNIT/0.5 ML ML SQ SCH ×3 (07:30→16:30)
[2020-03-21] MEDS ORDERED: POTASSIUM PHOS IN 0.9 % NACL 15 MMOL/250 ML BAG IV ONE (08:00)
[2020-03-21] MEDS: GUAIFENESIN 600 MG SA TAB PO SCH (08:45)
[2020-03-21] MEDS: ENOXAPARIN 40 MG/0.4 ML SQ SCH (08:45)
[2020-03-21] MEDS: TAMSULOSIN 0.4 MG SR CAP PO SCH (08:46)
[2020-03-21] MEDS: GLIMEPIRIDE 2 MG TABLET PO SCH (08:46)
[2020-03-21] MEDS: DOCUSATE NA 100 MG CAP PO SCH (08:46)
[2020-03-21] MEDS: allopurinoL 300 MG TAB PO SCH (08:46)
[2020-03-21] MEDS: PANTOPRAZOLE 40MG TABLET PO SCH ×2 (08:46→16:30)
[2020-03-21] MEDS: POTASSIUM CL SA 10 MEQ TAB PO SCH (08:46)
[2020-03-21] MEDS: JUVEN PACKET PO SCH (08:47)
[2020-03-21] MEDS: ENSURE HIGH PROTEIN 237 ML CAN PO SCH (08:47)
[2020-03-21 11:25] LABS: Absolute Lymphocytes (CBC) 1.4 K/uL (0.7-4.9); Basophils % 0.7 % (0-1.3); Hematocrit 24.4 % (39.6-49.0); Lymphocytes % 19.6 % (15.3-44.8); MPV 8.5 fL (7.6-11.3); RBC Red Blood Cell Count 2.78 M/uL (4.33-5.43)
[2020-03-21 11:56] LABS: Magnesium 1.5 mg/dL (1.8-2.4); Potassium 3.2 mmol/L (3.5-5.1)
[2020-03-21 12:07] VITALS: O2SAT 96
[2020-03-21] MEDS: SOD FERRIC GLUC COMPLX/SUCROSE 125 MG in NA CHLORIDE 0.9% 100 ML IV SCH (12:26)
[2020-03-21] MEDS ORDERED: POTASSIUM CL SA 10 MEQ TAB PO ONE (12:57)
[2020-03-21] MEDS ORDERED: SPIRONOLACTONE 25 MG TABLET PO SCH (13:00)
--- NOTE | 2020-03-21 13:02 | P.PN ---
Date of Service: 03/21/20 Vital Signs Temp Pulse Resp BP Pulse Ox 97.5 F 89 18 139/83 96 03/21/20 08:00 03/21/20 08:46 03/21/20 08:00 03/21/20 08:46 03/21/20 08:00 Medications Acetaminophen (Acetaminophen 500 Mg Tab) 500 mg PO Q4HP PRN PRN Reason: pain/fever Last Admin: 03/19/20 16:20 Dose: 500 mg Documented by: Acetaminophen/Codeine Phosphate (Codeine 12mg/Apap 120mg Per 5 Ml Ucup) 10 ml PO Q4H PRN PRN Reason: COUGH Allopurinol (Allopurinol 300 Mg Tab) 300 mg PO DAILY [facility] Last Admin: 03/21/20 08:46 Dose: 300 mg Documented by: Atorvastatin Calcium (Atorvastatin 40 Mg Tab) 40 mg PO BEDTIME [facility] Last Admin: 03/20/20 22:11 Dose: 40 mg Documented by: Bisacodyl (Bisacodyl 10 Mg Rectal Supp) 10 mg TN DAILY PRN PRN Reason: CONSTIPATION Carvedilol (Carvedilol 3.125 Mg Tab) 3.125 mg PO BID 6AM 6PM [facility] Last Admin: 03/21/20 05:41 Dose: 3.125 mg Documented by: Cetylpyridinium Chloride/Menthol (Cepacol Lozenges) 1 aakash PO Q4H PRN PRN Reason: COUGH Dextrose (D50w 25 Gm/50 Ml Vial) 12.5 gm IV PRN PRN; Protocol PRN Reason: HYPOGLYCEMIA Docusate Sodium (Docusate Na 100 Mg Cap) 100 mg PO BID [facility] Last Admin: 03/21/20 08:46 Dose: 100 mg Documented by: Enoxaparin Sodium (Enoxaparin 40 Mg/0.4 Ml) 40 mg SQ DAILY [facility] Last Admin: 03/21/20 08:45 Dose: 40 mg Documented by: Furosemide (Furosemide 40 Mg/4 Ml Vial) 40 mg IV Q8HR [facility] Last Admin: 03/21/20 08:46 Dose: 40 mg Documented by: Glimepiride (Glimepiride 2 Mg Tablet) 2 mg PO DAILY WITH BREAKFAST [facility] Last Admin: 03/21/20 08:46 Dose: 2 mg Documented by: Glucagon (Glucagon 1 Mg/Vial) 1 mg IM 1X PRN; Protocol PRN Reason: HYPOGLYCEMIA Guaifenesin (Guaifenesin 600 Mg Sa Tab) 1,200 mg PO BID [facility] Last Admin: 03/21/20 08:45 Dose: 1,200 mg Documented by: Levofloxacin/Dextrose (Levaquin 500 Mg/100 Ml Ivpb) 500 mg in 100 mls @ 100 mls/hr IV Q24H [facility]; Protocol Last Admin: 03/20/20 12:12 Dose: 100 mls Documented by: Metronidazole/Sodium Chloride (Flagyl 500mg/100 Ml Iv Premix) 500 mg in 100 mls @ 200 mls/hr IV Q8HR [facility]; Protocol Last Admin: 03/21/20 08:44 Dose: 100 mls Documented by: Sodium Chloride (Ns 1000 Ml Ivbag) 1,000 mls @ 0 mls/hr IV .Q0M [facility] Last Admin: 03/19/20 12:13 Dose: 1,000 mls Documented by: Ferric Sodium Gluconate Complex 125 mg/ Sodium Chloride 110 mls @ 100 mls/hr IV DAILY [facility] Stop: 03/25/20 10:05 Last Admin: 03/21/20 12:26 Dose: 110 mls Documented by: Vancomycin HCl 1.75 gm/ Sodium (Chloride) 500 mls @ 250 mls/hr IVPB Q36H [facility] Last Admin: 03/21/20 05:43 Dose: 500 mls Documented by: Insulin Human Regular (Insulin -Regular Human 50 Unit/0.5 Ml Ml) 0 unit SQ ACHS [facility]; Protocol Last Admin: 03/21/20 07:30 Dose: Not Given Documented by: L-Arginine/L-Glutamine/HMB (Vikram Packet) 1 pkt PO BID [facility] Last Admin: 03/21/20 08:47 Dose: Not Given Documented by: Lactulose (Lactulose 20 Gm/30 Ml Ucup) 20 gm PO DAILY PRN PRN Reason: CONSTIPATION Nutritional Formula (Ensure High Protein 237 Ml Can) 237 ml PO BID [facility] Last Admin: 03/21/20 08:47 Dose: Not Given Documented by: Ondansetron HCl (Ondansetron 4 Mg/2 Ml Vial) 4 mg IV Q6HP PRN PRN Reason: NAUSEA / VOMITING Pantoprazole Sodium (Pantoprazole 40mg Tablet) 40 mg PO BIDAC [facility]; Protocol Last Admin: 02/13/21 08:46 Dose: 40 mg Documented by: Potassium Chloride (Potassium Cl Sa 10 Meq Tab) 20 meq PO DAILY [facility] Last Admin: 03/21/20 08:46 Dose: 20 meq Documented by: Sodium Chloride (Flush Normal Saline 10 Ml) 10 ml IV BID [facility] Last Admin: 03/21/20 08:48 Dose: 10 ml Documented by: Tamsulosin HCl (Tamsulosin 0.4 Mg Sr Cap) 0.4 mg PO DAILY [facility] Last Admin: 03/21/20 08:46 Dose: 0.4 mg Documented by: Temazepam (Temazepam 15 Mg Cap) 15 mg PO BEDTIME PRN PRN PRN Reason: INSOMNIA Last Admin: 03/20/20 22:12 Dose: 15 mg Documented by: Microbiology Results 03/16/20 07:45 Catheterized Urine [place] Count - Final No growth. 03/16/20 07:45 Catheterized Urine - Final No growth. 03/16/20 07:50 Blood - Blood Aerobic Blood Culture - Final Meth Resistant Staph Aureus 03/16/20 07:50 Blood - Blood Blood Culture Gram Stain - Final 03/16/20 07:50 Blood - Blood Anaerobic Blood Culture - Final Meth Resistant Staph Aureus 03/16/20 07:50 Blood - Blood Gram Stain - Final 03/16/20 07:35 Blood - Blood Aerobic Blood Culture - Preliminary Meth Resistant Staph Aureus 03/16/20 07:35 Blood - Blood Anaerobic Blood Culture - Preliminary Meth Resistant Staph Aureus 03/16/20 07:35 Blood - Blood Gram Stain - Preliminary Assessment/ Plan: Nephrology No acute cardiac or pulmonary compaints. No CP or SOB. +BAILEY Good appetite but does not like the food. No acute events overnight. Vitals, medications, blood work and imaging reviewed in the chart. NAD. Obese. MMM. Neck supple. CTA. RRR. Soft Abd. No C/C. BL hip edema. Right AKA. No rash. AAO. Normal Speech. A/P: Continue the current POC and Medications other than the changes listed. AM Labs PRN. Recommend daily weight. Please see the orders for complete details. CURTIS suspicious for ATN CKD III -No NSAIDs -Continue furosemide and start spironolactone. Hypokalemia -Give KCl 40meq X1 today. -Start spironolactone. Hypocalcemia -Continue Vitamin D HypoPO4 -Encourage nutrition -Give IV KPO4 DM II with CKD -Continue glimeperide Anemia in chronic illness Iron deficiency -Continue IV iron -Transfuse PRBC as indicated BPH with LUTS -Continue Flomax Gout -Continue Allopurinol Bacteremia -Continue Levaquin and Vancomycin
[2020-03-21] MEDS: Levofloxacin500mg IV 500 MG/100 ML BAG IV SCH (13:46)
[2020-03-21] MEDS: ACETAMINOPHEN 500 MG TAB PO PRN (13:47)
[2020-03-21] MEDS ORDERED: Magnesium Sulfate 2gm IVPB 2 G/50 ML BAG IV ONE (16:07)
[2020-03-21 17:10] VITALS: BP 132/85; TEMP 97.6
[2020-03-21 17:31] LABS: Hepatitis C Virus RNA (PCR)log <1.18 log IU/mL
[2020-03-21 19:45] LABS: HBsAG Nonreactive (Nonreactive)
--- NOTE | 2020-03-22 10:31 | PN ---
Date of Progress Note: 03/18/2020 Subjective: Mr. Burrows had come in with congestive heart failure, pulmonary hypertension, mitral sten osis, alcoholic cirrhosis. Nephrology is following. I had recommended increasing Coreg, Lasix. He is not a candidate for anticoagulation. He was in atrial fibrillation at a rate of 90. Today, he re aric in atrial fibrillation, rate controlled. Nephrology recommended IV iron, vitamin D, repleting potassium, and no nonsteroidal anti-inflammatory agents. He is now on Lipitor and insulin. He is on vancomycin. He is on Coreg. He has severe cardiomyopathy with ejection fraction of 23%. His arlet l stenosis is moderate at 1.5 sq cm. His right ventricular systolic pressure is 50. He is not a goo d candidate for calcium catracho. He is not a good candidate for anticoagulation. I think the mainst ay of therapy going to be Lasix and carvedilol and maybe a low-dose PORTIA inhibitor if he tolerates it with his kidney function. I will sign off his case. I will be happy to see him as an outpatient. I will be available for questions if the need arises. STERLING/FRANK Voice ID: [id number] Report ID: [id number]
[2020-03-22 16:19] LABS: HIV AG/AB 4TH GEN Non-reactive (Non-reactive)
[2020-03-23 07:14] LABS: Vitamin D 1,25-Dihydroxy Total 16 pg/mL (18-72); Vitamin D,1,25-OH2, D2 <8 pg/mL
[2020-03-23 22:39] LABS: Albumin, (SPE) 2.5 g/dL (3.8-4.8); Alpha-1-Globulins 0.4 g/dL (0.2-0.3); Alpha-2-Globulins 0.6 g/dL (0.5-0.9); Gamma Globulins 0.9 g/dL (0.8-1.7); INTERPRETATION REPORT
--- NOTE | 2020-04-15 21:24 | P.PN ---
Date of Service: 03/20/20 Subjective Patient denies any new complaints. He continues to improve. Continue with IV antibiotic therapy. No fever and white blood count stable. Physical Examination - Vital Signs Reviewed - Physical Exam General: Alert, In no apparent distress, Oriented x3 Respiratory: Clear to auscultation bilaterally, Normal air movement Cardiovascular: Regular rate/rhythm, Normal S1 S2, No murmurs Gastrointestinal: Normal bowel sounds, Soft and benign, Non-distended, Tenderness Musculoskeletal: No clubbing Assessment & Plan - Problems (Diagnosis) (1) MRSA bacteremia Current Visit: Yes Status: Acute (2) Acute kidney injury Current Visit: Yes Status: Acute (3) Leukocytosis Current Visit: Yes Status: Acute (4) Elevated procalcitonin Current Visit: Yes Status: Acute (5) Elevated bilirubin Current Visit: Yes Status: Acute (6) History of femoropopliteal bypass Current Visit: No Status: Acute (7) Hyperlipidemia Current Visit: No Status: Chronic Qualifiers: Hyperlipidemia type: unspecified Qualified Code(s): E78.5 - Hyperlipidemia, unspecified (8) Hypertension Current Visit: No Status: Chronic Qualifiers: Hypertension type: essential hypertension Qualified Code(s): I10 - Essential (primary) hypertension (9) Pacemaker Current Visit: No Status: Chronic (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 Hep-Lock IV 2. Continue with IV antibiotics 3. Continue with pain control 4. Diet as tolerated 5. GI consultation appreciated; 6. Serial H&H, and we will monitor CBC, BMP, LFTs and lipase along with electrolytes. 7. Continue cardiac meds-rate controlled and anticoagulated 8. Monitor renal function closely 9. Repeat procalcitonin level 10. GI and DVT prophylaxis - Advance Directives Does patient have a Living Will: Yes Does patient have a Durable POA for Healthcare: No - Code Status/Comfort Care Code Status: Full Code
--- NOTE | 2020-04-15 21:26 | P.DS ---
Discharge Date: 03/21/20 Disposition: DC HOME/HOME HEALTH CARE Discharge Condition: GOOD Reason for Admission: Colitis - Problems (1) Acute colitis Status: Acute (2) Acute kidney injury Status: Acute (3) Leukocytosis Status: Acute (4) Elevated procalcitonin Status: Acute (5) Elevated bilirubin Status: Acute (6) History of femoropopliteal bypass Status: Acute (7) Hyperlipidemia Status: Chronic Qualifiers: Hyperlipidemia type: unspecified Qualified Code(s): E78.5 - Hyperlipidemia, unspecified (8) Hypertension Status: Chronic Qualifiers: Hypertension type: essential hypertension Qualified Code(s): I10 - Essential (primary) hypertension (9) Pacemaker Status: Chronic (10) S/P CABG x 4 Status: Chronic (11) Stage III pressure ulcer of sacral region Status: Resolved Brief History of Present Illness: Patient is an 84-year-old gentleman who came into the hospital with being difficult to arouse. Family notified EMS and patient was brought into the emergency room. Patient was a little tachypneic on arrival. EKG revealed atrial fibrillation with rapid ventricular response. Patient was hydrated and rate has been controlled. Patient had additional workup in the emergency room including labs and imaging studies. Imaging studies revealed patient had colitis and lab data indicated patient with acute renal insufficiency/dehydration. Patient has been having some diarrhea and his nutritional intake has been poor. Patient was recently at [facility] and left against medical advice. Unknown as to what was diagnosed at the facility.Patient procalcitonin level was also elevated. Patient also was elevation of total bilirubin. Patient will be admitted to the hospital for further evaluation. Hospital Course: Patient's rate is controlled. Patient clinically is doing well with no new complaints. At this time patient is stable for discharge. Patient will continue with medications for rate control with anti arrhythmic and anticoagulation. Patient will continue with antibiotic therapy. Patient will follow up with Cardiology and Gastroenterology and 1-2 weeks. Return to the emergency room. Vital Signs/Physical Exam: Temp Pulse Resp BP Pulse Ox 97.6 F 94 H 18 132/85 97 03/21/20 16:00 03/21/20 18:06 03/21/20 16:00 03/21/20 18:06 03/21/20 16:00 General: Alert, In no apparent distress, Oriented x3 Other Physical/Emotional Findings: General: In no apparent distress, Oriented x3. HEENT: Atraumatic, Normocephalic, PERRLA. Neck: Supple, 2+ carotid pulse no bruit, JVD not distended, No Thyromegaly. Respiratory: bilateral crackles/rhonci, Normal air movement. Cardiovascular: No edema, No murmurs, Irregular heart rate/rhythm. Capillary refill: <2 Seconds. Gastrointestinal: Normal bowel sounds, Soft and benign, Non-distended. Musculoskeletal: No clubbing, No swelling. Integumentary: No rashes, No breakdown, Other (previous stage 3 sacral ulcer-healing. New skin tear noted.) Laboratory Data at Discharge: WBC 7.30 K/uL (4.3-10.9) 03/21/20 11:08 Hgb 8.0 g/dL (13.6-17.9) L 03/21/20 11:08 Hct 24.4 % (39.6-49.0) L 03/21/20 11:08 Plt Count 139 K/uL (152-406) L 03/21/20 11:08 PT 16.1 SECONDS (9.5-12.5) H 03/18/20 03:58 INR 1.40 03/18/20 03:58 APTT 25.7 SECONDS (24.3-36.9) 03/18/20 03:58 Sodium 144 mmol/L (136-145) 03/21/20 11:08 Potassium 3.2 mmol/L (3.5-5.1) L 03/21/20 11:08 BUN 46 mg/dL (7-18) H 03/21/20 11:08 Creatinine 0.99 mg/dL (0.55-1.3) 03/21/20 11:08 Glucose 161 mg/dL (74-106) H 03/21/20 11:08 Uric Acid 7.2 mg/dL (3.5-7.2) 03/18/20 03:58 Phosphorus 1.9 mg/dL (2.5-4.9) L 03/21/20 04:34 Magnesium 1.5 mg/dL (1.8-2.4) L D 03/21/20 11:08 Total Bilirubin 0.7 mg/dL (0.2-1.0) 03/20/20 08:00 AST 23 U/L (15-37) 03/20/20 08:00 ALT 20 U/L (12-78) 03/20/20 08:00 Alkaline Phosphatase 95 U/L (45-117) 03/20/20 08:00 Lipase 199 U/L (73-393) 03/16/20 07:35 Home Medications: Aspirin [Aspirin EC 81 MG] 81 mg PO DAILY 05/04/18 Atorvastatin Calcium [Lipitor] 40 mg PO BEDTIME 05/04/18 Furosemide [Lasix*] 40 mg PO BIDL 05/04/18 Glimepiride [Amaryl] 4 mg PO DAILY 05/04/18 Potassium Chloride [Klor-Con M20] 20 meq PO DAILY 05/04/18 Tamsulosin [Flomax*] 0.4 mg PO DAILY 05/04/18 allopurinoL [Zyloprim*] 300 mg PO DAILY 05/04/18 carvediloL [Coreg*] 3.125 mg pe PO DAILY 05/04/18 Pantoprazole [Protonix Tab*] 40 mg PO BIDAC #60 tab 03/21/20 Spironolactone [Aldactone*] 25 mg PO DAILY #30 tab 03/21/20 New Medications: Spironolactone [Aldactone*] 25 mg PO DAILY #30 tab Pantoprazole [Protonix Tab*] 40 mg PO BIDAC #60 tab Physician Discharge Instructions: OK TO DC IV AND DC HOME FOLLOW-UP WITH PRIMARY CARE PROVIDER IN 1-2 WEEKS FOLLOW-UP WITH CARDIOLOGY IN 1-2 WEEKS Follow-up with Nephrology in 2 weeks Follow-up with Gastroenterology in 2 weeks Patient is set up for IV antibiotics for 2 weeks; home health should be assisting with IV antibiotic therapy and heart failure education RETURN TO THE ER IF symptoms worsen CALL or TEXT DR. DOUGLAS AT [phone] IF ANY QUESTIONS REGARDING HOSPITAL STAY. PLEASE CALL THE FLOOR AT [phone] IF ANY MEDICATION OR NURSING QUESTIONS. Diet: Low sodium Activity: Fall precautions Followup: Demond Hussein DO [ACTIVE - CAN ADMIT] - Jose Guadalupe Cohen MD [ACTIVE - CAN ADMIT] - Rocco Valle DO [Primary Care Provider] - Thor Parish MD [ACTIVE - CAN ADMIT] - Time spent managing pt's care (in minutes): 35
== END 2020-03-21 19:15 | disposition home health service (06) | DRG 871 ==
LOC: ER 07:24 → ERHOLD 12:19 → 2ND 16:17
PROVIDERS: ADMIT Hospitalist; ATTEND Hospitalist
PROC: 02HV33Z Insertion of Infusion Device into Superior Vena Cava, Percutaneous Approach (ICD-10-PCS; 2020-03-19)
PROC: 30233N1 Transfusion of Nonautologous Red Blood Cells into Peripheral Vein, Percutaneous Approach (ICD-10-PCS; principal; 2020-03-20)
DX: A41.02 Sepsis due to Methicillin resistant Staphylococcus aureus (principal); L89.153 Pressure ulcer of sacral region, stage 3; I50.21 Acute systolic (congestive) heart failure; N17.0 Acute kidney failure with tubular necrosis; I13.0 Hypertensive heart and chronic kidney disease with heart failure and stage 1 through stage 4 chronic kidney disease, or unspecified chronic kidney disease; I48.20 Chronic atrial fibrillation, unspecified; N18.30 Chronic kidney disease, stage 3 unspecified; E11.22 Type 2 diabetes mellitus with diabetic chronic kidney disease; E11.40 Type 2 diabetes mellitus with diabetic neuropathy, unspecified; I25.2 Old myocardial infarction; I25.10 Atherosclerotic heart disease of native coronary artery without angina pectoris; M10.9 Gout, unspecified; I27.20 Pulmonary hypertension, unspecified; E83.39 Other disorders of phosphorus metabolism; I05.0 Rheumatic mitral stenosis; N40.1 Benign prostatic hyperplasia with lower urinary tract symptoms; E87.6 Hypokalemia; E83.51 Hypocalcemia; K52.9 Noninfective gastroenteritis and colitis, unspecified; E86.0 Dehydration; E78.5 Hyperlipidemia, unspecified; N14.1 Nephropathy induced by other drugs, medicaments and biological substances; T50.8X5A Adverse effect of diagnostic agents, initial encounter; R65.20 Severe sepsis without septic shock; R79.89 Other specified abnormal findings of blood chemistry; Z95.1 Presence of aortocoronary bypass graft; Z96.652 Presence of left artificial knee joint; Z89.611 Acquired absence of right leg above knee; Z79.84 Long term (current) use of oral hypoglycemic drugs; Z90.49 Acquired absence of other specified parts of digestive tract; Z79.899 Other long term (current) drug therapy; Z79.82 Long term (current) use of aspirin; Z87.891 Personal history of nicotine dependence; Z79.02 Long term (current) use of antithrombotics/antiplatelets; Z95.810 Presence of automatic (implantable) cardiac defibrillator; Z20.822 Contact with and (suspected) exposure to COVID-19
CPT/HCPCS: 0240U; 36415; 36430; 36569; 51702; 71045; 74177; 76770; 80048; 80053; 80069; 80076; 80202; 80307; 81003; 81015; 82248; 82550; 82570; 82607; 82652; 82728; 82746; 82947; 83520; 83540; 83605; 83690; 83735; 83880; 83970; 84100; 84145; 84156; 84165; 84439; 84443; 84466; 84484; 84550; 85014; 85018; 85025; 85044; 85302; 85610; 85730; 86021; 86038; 86140; 86160; 86317; 86430; 86704; 86706; 86850; 86900; 86901; 87040; 87077; 87086; 87088; 87186; 87205; 87340; 87389; 87522; 93005; 93306; 96361; 96365; 96367; 99285; J1650; J1940; J2543; J2916; J3370; J3475; J3480; J7030; J7040; J7050; P9016; P9047; Q9967

== ENCOUNTER 2020-04-04 11:15 | Inpatient (IN) | payer OTHER, BC ==
--- OUTSIDE RECORDS SUMMARY | 2020-04-04 11:27 | XMS REPORT | Continuity of Care Document ---
:1935 Author Organization [facility] t Address [address] [place] [address] Care Team Providers Name Role Phone Sharpless Primary Care Physician Gabriel FOUNTAIN P Attending Clinician Sudha German MD Attending Clinician SHARIFA HART Attending Clinician Unavailable Gabriel FOUNTAIN, P Admitting Clinician SHARIFA HART Admitting Clinician Unavailable Payers Payer Name Policy Type Policy Effective Date Expiration Date Sour ce Number MEDICAREMEDICARE A [id number] ABHISHEK Daley [id number] 00:00:00 - Medical [facility] Center BLUE CROSS/BLUE [id number] [facility] SHIELDBCBS PPO POS EPO 9 00:00:00 - Medical [id number], [place] [address]PSU Problems Condition Condition Condition Status Onset Resolution Last Treating Co mments Source Name Details Category Date Date Treatment Clinician Date Disorienta Disorienta Disease Active [facility] - 00:[facility]: Medical 00 [place] A-fib A-fib Disease Active [facility] - [facility] Medical 00 [place] Hypertensi Hypertensi Disease Active [facility] on on 05-31 [facility] - 00:[facility]: Medical 00 [place] Hypernatre Hypernatre Disease Active [facility] nirav nirav 25 [facility] - 00:00: Medical 00 [place] Acute Acute Disease Active [facility] blood loss blood loss 25 [facility] - anemia anemia 00:00: Medical 00 [place] 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 00:00: Medica l with with 00 Center complicati complicati on, on, without without long-term long-term current current use of use of insulin insulin Leukocytos Leukocytos Disease Active [facility] is is 25 [facility] - 00:[facility]: Medical 00 [place] Agitation Agitation Disease Active [facility] - 00:[facility]: Medical 00 [place] Acute Acute Disease Active [facility] encephalop encephalop 25 [facility] - athy athy 00:00: Medical 00 [place] Acute Acute Disease Active [facility] kidney kidney 25 [facility] - injury injury 00:00: Medical 00 [place] GIB GIB Disease Active [facility] (gastroint (gastroint 24 [place] [facility] - estinal estinal 00:00: Medical bleeding) bleeding) 00 Cent er Cough Cough Disease Active [facility] 3-23 Methodi 00:00: st 00 Rash Rash Disease Active 2015-02 [place] Methodi 00:00: st Hypertensi Hypertensi Disease Active 2015-02 [place] Methodi 00:00: st 00 Ischemia Ischemia Disease Active 2015-02 [place] toe of toe Methodi 00:00: st Lumbosacra Lumbosacra Disease Active 2015-02 [place] Methodi radiculiti radiculiti 00:00: st s s 00 Open wound Open wound Disease Active 2015-02 [place] Methodi 00:[facility]: st 00 Peripheral Peripheral Disease Active 2015-02 H jeromy nerve nerve Methodi disease disease 00:00: st 00 Seizure Seizure Disease Active 2015-02 [facility] disorder disorder 2-29 Method i 00:00: st 00 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 0-12 Me thodi artery artery 00:00: st 00 Chronic Chronic Disease Active 2015-02 [facility] ischemic ischemic 0-12 Method i heart heart 00:00: st disease disease 00 Chronic Chronic Disease Active 2015-02 [facility] kidney kidney 0-12 Methodi disease, disease, 00:00: st stage III stage III 00 (moderate) (moderate) Delayed Delayed Disease Active 2015-02 [facility] surgical surgical 012 Method i wound wound 00:00: st healing healing 00 Edema of Edema of Disease Active 2015-02 [place] lower lower 012 Methodi extremity extremity 00:00: st 00 Vertigo Vertigo Disease Active 2015-02 [facility] 012 Methodi 00:00: st 00 Knee pain Knee pain Disease Active 2015-02 Keith ston 0-12 Methodi 00:00: st 00 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 012 Method i 00:00: st 00 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-12 Methodi syndrome syndrome 00:00: [...] 00 Peripheral Peripheral Disease Active Overview : [facility] vascular vascular 5-15 S/P Method i disease disease 00:00: stents st 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 00:00: x 3 st Gout Gout Disease Active [facility] 2-20 Methodi 00:00: st 00 Chronic Chronic Disease Active [facility] coronary coronary 02-06 Method i artery artery 00:00: st disease disease 00 Peripheral Peripheral Disease Active [place] arterial arterial 02-06 Method i occlusive occlusive 00:00: st disease disease 00 Diabetes Diabetes Disease Active 2011-0 [place] mellitus mellitus 06-07 Method i [...] Source Natural brother Thyroid cancer [place] Natural father Coronary artery [place] disease Natural mother Coronary artery [place] disease Other Diabetes [facility] Method ist Other Heart disease [facility] Met hodist Other Hypertension [facility] Meth odist Social History Social Habit Start Date Stop Date Quantity Comments Source Sex Assigned At [facility] ethodist History of Cigarette Smoker [facility] tobacco use Tobacco use and 2016-02-04 2016-02-04 Never used [facility] ethodist exposure 00:00:00 00:00:00 Alcohol intake 2016-02-04 2016-02-04 Current drinker [place] [facility] 00:00:00 00:00:00 of alcohol (finding) Alcohol Comment 2015-11-18 2015-11-18 moderate- 2 [facility] 00:00:00 00:00:00 drinks weekly Smoking Status Start Date Stop Date Source [facility] Former smoker 2016-02-04 00:00:00 2016-02-04 00:00:00 [facility] Medications Ordered Filled Start Stop Current Ordering [...] Abbi inject [address] FlexTouch FlexTouch [place] units [facility] Atorvastati Atorvastati Yes Abbi TAKE [address] [facility] [facility] n Calcium n Calcium [place] TABLET BY [facility] - MOUTH Memoria DAILY l [facility] Allopurinol Allopurinol Yes Abbi [address] [facility] [address] [place] [facility] Glimepiride Glimepiride Yes Abbi [address] [facility] [place] with [facility]ukes - breakfast Memoria or the l first main Outpati meal of ent the day Clinics Potassium Potassium Yes Abbi [address] Chloride Chloride [place] with food L ukes - Memoria l [facility] Lasix Lasix Yes Abbi [address] [facility] [place] [facility] Tamsulosin Tamsulosin Yes Abbi [address] HCl HCl [place] [facility] Tamsulosin Tamsulosin Yes Abbi [address] HCl HCl [place] Once a day [facility] - Orally 90 Memoria days l [facility] BD BD Yes Abbi [address] Ultra-Fine Ultra-Fine [place] with [place] kes - Milla Pen Milla Pen tresiba Walter cat [place] [facility] Carvedilol Carvedilol Yes Abbi not [facility] [place] defined [facility] Aspirin Aspirin Yes Abbi [address] [facility] [address] [place] [facility] Magnesium Magnesium Yes Abbi [address] Oxide Oxide [place] as needed [facility] Vitamin B Vitamin B Yes Abbi [address] Complex Complex [place] [facility] Immunizations Ordered Immunization Filled Immunization Date Status Commen ts Source Name Name Pneumococcal 2010-06-21 Completed [place] Polysaccharide 00:00:00 [facility] Influenza Trivalent 2008-12-25 Completed [place] 00:00:00 [place] Influenza Trivalent 2007-12-12 Completed [place] 00:00:00 [place] Procedures This patient has no known procedures. Plan of Care Planned Activity Planned Date Details Comments Source Future Scheduled 2020-02-[address] [facility] - Test 00:00:00 (12+) [code = [facility] DEPRESSION SCREENING (12+)] Future Scheduled 2019-10-[address] [facility] - Test 00:00:00 (#1) [code = [facility] INFLUENZA VACCINE (#1)] Future Scheduled 2019-09-07 INFLUENZA VACCINE [place] [facility] Test 00:00:00 [code = INFLUENZA VACCINE] Future Scheduled 2017-12-[address] [facility]e kes - Test 00:00:00 [facility] (procedure) [code = 53665701] Future Scheduled 2003-03-[address] [facility] - Test 00:00:00 WELLNESS (YEAR 2 or Medical Center FIRST YEAR if no IPPE) [code = MEDICARE ANNUAL WELLNESS (YEAR 2 or FIRST YEAR if no IPPE)] Future Scheduled 1987 SHINGLES VACCINES [place] [facility] Test 00:00:00 (#1) [code = SHINGLES VACCINES (#1)] Future Scheduled 1953 COVID-19 VACCINE (1 [place] [facility] Test 00:00:00 of 2) [code = COVID-19 VACCINE (1 of 2)] Future Scheduled 1947 DIABETIC EYE EXAM [facility] Test 00:00:00 [code = DIABETIC EYE [facility] EXAM] Future Scheduled [address] [facility] - Test 00:00:00 examination [facility] Center (regime/therapy) [code = 632108794] Future Scheduled 1947 Urine screening for [facility] Test 00:00:00 protein (procedure) [facility] [code = 544052106] Future Scheduled 1947 DIABETES: RETINAL EYE [place] [facility] Test 00:00:00 EXAM [code = DIABETES: RETINAL EYE EXAM] Future Scheduled 1947 DIABETIC FOOT EXAM [place] [facility] Test 00:00:00 [code = DIABETIC FOOT EXAM] Future Scheduled 1944 DTAP/TDAP/TD VACCINES [facility] Test 00:00:00 (1 - Tdap) [code = Medical C enter DTAP/TDAP/TD VACCINES (1 - Tdap)] Encounters Start End Encounter Admission Attending Care Care Encounter Source Date/Time Date/Time Type Type Clinicians Facility Department ID 2020-04-01 2020-04-01 [id number] 2020-03-11 2020-03-15 [facility] Jenny Rios [id number] 06:05:00 13:27:00 Encounter Marito Redding [id number] [facility] [id number] 2020-03-10 2020-03-10 Outpatient STLMLC [facility] [id number] [facility] 2020-03-04 2020-03-04 Outpatient STLMLC [facility]LMLC [id number] [facility] 2020-02-12 2020-02-12 Outpatient STLMLC STLMLC [id number] [facility] 2020-02-12 2020-02-12 Outpatient STLMLC STLMLC [id number] [facility] 2020-02-05 2020-02-05 Outpatient STLMLC STLMLC [id number] [facility] 2019-12-25 2019-12-25 Outpatient STLMLC [facility] [id number] [facility] 2019-11-27 2019-11-27 Outpatient STLMLC STLMLC [id number] [facility] 2019-11-20 2019-11-20 Outpatient STLMLC STLMLC [id number] [facility] 2019-11-13 2019-11-13 Outpatient STLMLC [facility]LMLC [id number] [facility] 2019-10-30 2019-10-30 Outpatient STLMLC STLMLC [id number] [facility] 2019-08-13 2019-08-13 [facility] [id number] 13:20:00 13:20:00 t [facility] Outpati ent Clinics 2019-08-12 2019-08-12 [facility] [id number] 12:03:00 12:03:00 t Sidelines Luke s - Drive [facility] Medicine l Medicine Outpati ent Clinics 2019-07-23 2019-07-23 [facility] [id number] 14:15:00 14:15:[address] Luke s - Drive [facility] Medicine l Medicine Outpati ent Clinics 2019-07-17 2019-07-17 [facility] [id number] 11:45:00 11:45:00 t [place] Gecko [employer] LumySchoolNotebook s - Drive [facility] Medicine l Medicine Outpati ent Clinics 2019-07-15 2019-07-15 [facility] [id number] 14:26:00 14:26:00 t [facility] LumySchoolNotebook s - Road [facility] l Medicine Outpati ent Clinics 2019-05-20 2019-05-20 [facility] [id number] 11:56:00 11:56:00 t [place] ResolutionTube s - Drive [facility] l Medicine Outpati ent Clinics 2019-05-17 2019-05-17 [facility] [id number] 15:48:00 15:48:00 t [place] Gecko Audio Luke s - Drive [facility] Medicine l Medicine Outpati ent Clinics 2019-02-27 2019-02-27 [facility] [id number] 13:15:00 13:15:00 t [place] [employer] Lumy[employer]Notebook s - Drive [facility] l Medicine Outpati ent Clinics 2018-12-26 2018-12-26 [facility] [id number] 15:45:00 15:45:00 t [place] [employer]Notebook s - Drive [facility] Medicine l Medicine Outpati ent Clinics 2018-11-28 2018-11-28 [facility] [id number] 15:00:00 15:00:00 t [place] Getourguide LumySchoolNotebook s - Drive [facility] l Medicine Outpati ent Clinics 2018-10-17 2018-10-17 [facility] [id number] 15:38:00 15:38:00 t [place] Get[employer] LumySchoolNotebook s - Drive [facility] l Medicine Outpati ent Clinics 2018-10-17 2018-10-17 [facility] [id number] 15:15:00 15:15:00 [facility] 2018-10-02 2018-10-02 [facility] [id number] 11:25:00 11:25:00 [facility] 2018-08-08 2018-08-08 [facility] [id number] 10:25:00 10:25:00 t Specialty/U [place] [facility] - Specialty rology Memori a /Urology Clinic l Clinic [facility] 2018-06-11 2018-06-11 [facility] [id number] 11:57:00 11:57:00 t Specialty/U [place] kes - Specialty rology Memori a /Urology Clinic l [facility] 2018-05-14 2018-05-14 [facility] [id number] 10:30:00 10:30:00 [facility] Results Test Description Test Time Test Comments Results Result Sourc e Comments U/S, ABDOMINAL, 2017-06-29 Abdomen limited Addendum LIMITED 05:54:00 area? Add comment BeginsREPORT if clarification is STATUS:A PATIENT needed.->LiverReaso ID: [id number] n for exam:->r/o Indication: Right cirrhosis upper quadrant pain. Signed: Marci Levine MDReport Verified Date/Time: 06/29/2017 05:54:07 Reading Location: [facility] C013Y CT Body Reading RoomAddendum EndsFINAL REPORT [...] MDReport Verified Date/Time: 06/04/2017 06:44:53 Reading Location: [facility] B1 C013X Ortho Consult Reading Room -GLUCOSE METER 2017-06-19 16:56:00 Test Item Value Reference Range Interpretation Comme nts POC-GLUCOSE METER (BEAKER) (test 202 mg/dL 70-110 H TESTED AT [facility] [address] [facility]NER code = 1538) [facility] 7703 0 POCT-GLUCOSE [id number] 12:23:00 Test Item Value Reference Range Interpretation Comments POC-GLUCOSE METER 223 mg/dL 70-110 H TESTED AT [facility] 6720 (BEAKER) (test code = MIKY Marte [facility] 1538) [address] POCT-GLUCOSE [id number] 08:07:00 Test Item Value Reference Range Interpretation Comments POC-GLUCOSE METER 122 mg/dL 70-110 H TESTED AT [facility] 6720 (BEAKER) (test code = MIKY Marte [facility] 1538) [address] [id number] 07:19:00 Test Item Value Reference Range Interpretation Comments MAGNESIUM (BEAKER) (test code = 1.4 mg/dL 1.6-2.6 L 627) [id number] 07:19:00 Test Item Value Reference Range Interpretation Comments PHOSPHORUS (BEAKER) (test code = 2.7 mg/dL 2.3-4.7 604) COMPREHENSIVE METABOLIC [id number] 07:18:00 Test Item Value Reference Range Interpretation [...] PATIEN TS. CBC W/PLT COUNT & AUTO [id number] 00:06:00 Test Item Value Reference Range Interpretation [...] PERCENT (BEAKER) (test code = 2801) POCT-GLUCOSE [id number] 20:29:00 Test Item Value Reference Range Interpretation Comments POC-GLUCOSE METER 126 mg/dL 70-110 H TESTED AT [place] [address] ([facility]) (test code = [facility]LEELA Marte [facility] 1538) [address] POCT-GLUCOSE [id number] 17:46:00 Test Item Value Reference Range Interpretation Comments POC-GLUCOSE METER 98 mg/dL 70-110 TESTED AT [place] [address] ([facility]) (test code = [facility]LEELA Marte [facility] [address] 1538) POCT-GLUCOSE [id number] 13:26:00 Test Item Value Reference Range Interpretation Comments POC-GLUCOSE METER 118 mg/dL 70-110 H TESTED AT [place] [address] ([facility]) (test code = [facility] 1538) [address] POCT-GLUCOSE [id number] 08:28:00 Test Item Value Reference Range Interpretation Comments POC-GLUCOSE METER 137 mg/dL 70-110 H TESTED AT [place] [address] ([facility]) (test code = [facility] 1538) [address] [id number] 05:31:00 Test Item Value Reference Range Interpretation Comments PHOSPHORUS (BEAKER) (test code = 3.1 mg/dL 2.3-4.7 604) [id number] 05:31:00 Test Item Value Reference Range Interpretation Comments MAGNESIUM (BEAKER) (test code = 1.3 mg/dL 1.6-2.6 L 627) BASIC METABOLIC [id number] 05:31:00 Test Item Value Reference Range Interpretation [...] PATIEN TS. CBC W/PLT COUNT & AUTO [id number] 05:13:00 Test Item Value Reference Range Interpretation [...] PERCENT (BEAKER) (test code = 2801) POCT-GLUCOSE [id number] 21:05:00 Test Item Value Reference Range Interpretation Comments POC-GLUCOSE METER 199 mg/dL 70-110 H TESTED AT [facility] 6720 (BEAKER) (test code = MIKY KAN [place] 1538) [address] POCT-GLUCOSE [id number] 18:55:00 Test Item Value Reference Range Interpretation Comments POC-GLUCOSE METER 128 mg/dL 70-110 H TESTED AT [facility] 6720 (BEAKER) (test code = MIKY KAN [place] 1538) [address] POCT-GLUCOSE [id number] 11:34:00 Test Item Value Reference Range Interpretation Comments POC-GLUCOSE METER 144 mg/dL 70-110 H TESTED AT [facility] 6720 (BEAKER) (test code = MIKY KAN [place] 1538) [address] POCT-GLUCOSE [id number] 07:58:00 Test Item Value Reference Range Interpretation Comments POC-GLUCOSE METER 93 mg/dL 70-110 TESTED AT [facility] 6720 (BEAKER) (test code = [place] [address] 1538) [id number] 05:23:00 Test Item Value Reference Range Interpretation Comments PHOSPHORUS (BEAKER) (test code = 2.9 mg/dL 2.3-4.7 604) [id number] 05:23:00 Test Item Value Reference Range Interpretation Comments MAGNESIUM (BEAKER) (test code = 1.6 mg/dL 1.6-2.6 627) CBC W/PLT COUNT & AUTO [id number] 05:03:00 Test Item Value Reference Range Interpretation [...] PERCENT (BEAKER) (test code = 2801) POCT-GLUCOSE [id number] 22:10:00 Test Item Value Reference Range Interpretation Comments POC-GLUCOSE METER 100 mg/dL 70-110 TESTED AT [facility] ([facility]) (test code = [facility]LEELA Marte [facility] 1538) [address] POCT-GLUCOSE [id number] 20:51:00 Test Item Value Reference Range Interpretation Comments POC-GLUCOSE METER 195 mg/dL 70-110 H TESTED AT [facility] 67[address] ([facility]) (test code = [facility] Estuardo [facility] 1538) [address] POCT-GLUCOSE [id number] 12:49:00 Test Item Value Reference Range Interpretation Comments POC-GLUCOSE METER 183 mg/dL 70-110 H TESTED AT [facility] 6720 (BEAKER) (test code = [facility] Estuardo [facility] 1538) [address] POCT-GLUCOSE [id number] 08:20:00 Test Item Value Reference Range Interpretation Comments POC-GLUCOSE METER 95 mg/dL 70-110 TESTED AT [facility] 6720 (BEAKER) (test code = [facility]LEELA Marte [facility] [address] 1538) [id number] 07:00:00 Test Item Value Reference Range Interpretation Comments MAGNESIUM (BEAKER) (test code = 1.0 mg/dL 1.6-2.6 LL 627) [id number] 06:56:00 Test Item Value Reference Range Interpretation Comments PHOSPHORUS (BEAKER) (test code = 2.8 mg/dL 2.3-4.7 604) BASIC METABOLIC [id number] 06:56:00 Test Item Value Reference Range Interpretation [...] PATIEN TS. CBC W/PLT COUNT & AUTO [id number] 06:16:00 Test Item Value Reference Range Interpretation [...] PERCENT (BEAKER) (test code = 2801) POCT-GLUCOSE [id number] 21:45:00 Test Item Value Reference Range Interpretation Comments POC-GLUCOSE METER 174 mg/dL 70-110 H TESTED AT [place] [address] ([facility]) (test code = MIKY Marte [facility] 1538) [address] POCT-GLUCOSE [id number] 17:21:00 Test Item Value Reference Range Interpretation Comments POC-GLUCOSE METER 212 mg/dL 70-110 H TESTED AT [place] [address] ([facility]) (test code = MIKY Marte [facility] 1538) [address] POCT-GLUCOSE [id number] 08:21:00 Test Item Value Reference Range Interpretation Comments POC-GLUCOSE METER 107 mg/dL 70-110 TESTED AT [place] [address] ([facility]) (test code = MIKY KAN [place] 1538) [address] [id number] 03:39:00 Test Item Value Reference Range Interpretation Comments PHOSPHORUS (BEAKER) (test code = 2.8 mg/dL 2.3-4.7 604) [id number] 03:39:00 Test Item Value Reference Range Interpretation Comments MAGNESIUM (BEAKER) (test code = 1.4 mg/dL 1.6-2.6 L 627) COMPREHENSIVE METABOLIC [id number] 03:39:00 Test Item Value Reference Range Interpretation [...] NOT APPLICABLE FOR DIALYSIS PATIEN TS. PROTHROMBIN [id number] 03:27:00 Test Item Value Reference Range Interpretation [...] PERCENT (AKER) (test code = 2801) POCT-GLUCOSE [id number] 21:20:00 Test Item Value Reference Range Interpretation Comments POC-GLUCOSE METER 101 mg/dL 70-110 TESTED AT [place] [address] ([facility]) (test code = MIKY Marte [facility] 1538) [address] BLOOD [id number] 18:00:00 Test Item Value Reference Range Interpretation Comments CULTURE ([facility]) (test No growth in 5 days code = 1095) POCT-GLUCOSE [id number] 17:25:00 Test Item Value Reference Range Interpretation Comments POC-GLUCOSE METER 273 mg/dL 70-110 H TESTED AT [place] [address] ([facility]) (test code = [facility]LEELA Marte [facility] 1538) [address] POCT-GLUCOSE [id number] 13:32:00 Test Item Value Reference Range Interpretation Comments POC-GLUCOSE METER 247 mg/dL 70-110 H TESTED AT [place] [address] ([facility]) (test code = [facility] Estuardo [facility] 1538) [address] CBC W/PLT COUNT & AUTO [id number] 12:21:00 Test Item Value Reference Range Interpretation Comments WHITE BLOOD CELL COUNT (AKER) 6.0 K/ L 3.5-10.5 (test code = 775) RED BLOOD CELL COUNT (BEAKER) 2.60 M/ L 4.63-6.08 L (test code = 761) HEMOGLOBIN (BEAKER) (test code = 7.5 GM/DL 13.7-17.5 L 410) HEMATOCRIT (AKER) (test code = 24.2 % 40.1-51.0 L [...] 0-0 (BEAKER) (test code = 413) POCT-GLUCOSE [id number] 08:05:00 Test Item Value Reference Range Interpretation Comments POC-GLUCOSE METER 165 mg/dL 70-110 H TESTED AT [facility] 6720 (BEAKER) (test code = MIKY [place] 1538) [address] [id number] 06:32:00 Test Item Value Reference Range Interpretation Comments MAGNESIUM (BEAKER) (test code = 1.0 mg/dL 1.6-2.6 LL 627) [id number] 06:31:00 Test Item Value Reference Range Interpretation Comments PHOSPHORUS (BEAKER) (test code = 2.9 mg/dL 2.3-4.7 604) BASIC METABOLIC [id number] 06:31:00 Test Item Value Reference Range Interpretation [...] NOT APPLICABLE FOR DIALYSIS PATIEN TS. POCT-GLUCOSE [id number] 21:42:00 Test Item Value Reference Range Interpretation Comments POC-GLUCOSE METER 139 mg/dL 70-110 H TESTED AT [place] [address] ([facility]) (test code = [facility] 1538) [address] POCT-GLUCOSE [id number] 17:39:00 Test Item Value Reference Range Interpretation Comments POC-GLUCOSE METER 225 mg/dL 70-110 H TESTED AT [place] [address] ([facility]) (test code = [facility] 1538) [address] POCT-GLUCOSE [id number] 12:02:00 Test Item Value Reference Range Interpretation Comments POC-GLUCOSE METER 153 mg/dL 70-110 H TESTED AT [place] [address] ([facility]) (test code = [facility] 1538) 8[address] POCT-GLUCOSE [id number] 09:32:00 Test Item Value Reference Range Interpretation Comments POC-GLUCOSE METER 82 mg/dL 70-110 TESTED AT [place] [address] ([facility]) (test code = [facility] [address] 1538) [id number] 06:51:00 Test Item Value Reference Range Interpretation Comments PHOSPHORUS (BEAKER) (test code = 2.6 mg/dL 2.3-4.7 604) [id number] 06:51:00 Test Item Value Reference Range Interpretation Comments MAGNESIUM (BEAKER) (test code = 1.4 mg/dL 1.6-2.6 L 627) BASIC METABOLIC [id number] 06:51:00 Test Item Value Reference Range Interpretation [...] PATIEN TS. CBC W/PLT COUNT & AUTO [id number] 05:59:00 Test Item Value Reference Range Interpretation [...] PERCENT (BEAKER) (test code = 2801) POCT-GLUCOSE [id number] 22:42:00 Test Item Value Reference Range Interpretation Comments POC-GLUCOSE METER 143 mg/dL 70-110 H TESTED AT [place] [address] ([facility]) (test code = MIKY Marte [facility] 1538) [address] POCT-GLUCOSE [id number] 17:31:00 Test Item Value Reference Range Interpretation Comments POC-GLUCOSE METER 167 mg/dL 70-110 H TESTED AT [place] [address] ([facility]) (test code = [facility]LEELA Marte [facility] 1538) [address]183 POCT-GLUCOSE [id number] 12:29:00 Test Item Value Reference Range Interpretation Comments POC-GLUCOSE METER 196 mg/dL 70-110 H TESTED AT [place] [address] ([facility]) (test code = [facility]LEELA Marte [facility] 1538) [address] POCT-GLUCOSE [id number] 07:54:00 Test Item Value Reference Range Interpretation Comments POC-GLUCOSE METER 138 mg/dL 70-110 H TESTED AT [place] [address] ([facility]) (test code = [facility]LEELA Marte [place] 1538) [address] [id number] 06:13:00 Test Item Value Reference Range Interpretation Comments PHOSPHORUS (BEAKER) (test code = 3.2 mg/dL 2.3-4.7 604) [id number] 06:13:00 Test Item Value Reference Range Interpretation Comments MAGNESIUM (BEAKER) (test code = 1.3 mg/dL 1.6-2.6 L 627) CBC W/PLT COUNT & AUTO [id number] 05:50:00 Test Item Value Reference Range Interpretation [...] PERCENT (AKER) (test code = 2801) POCT-GLUCOSE [id number] 21:11:00 Test Item Value Reference Range Interpretation Comments POC-GLUCOSE METER 160 mg/dL 70-110 H TESTED AT [facility] ([facility]) (test code = MIKY Marte [place] 1538) [address] BLOOD [id number] 18:00:00 Test Item Value Reference Range Interpretation Comments CULTURE ([facility]) (test No growth in 5 days code = 1095) POCT-GLUCOSE [id number] 17:54:00 Test Item Value Reference Range Interpretation Comments POC-GLUCOSE METER 163 mg/dL 70-110 H TESTED AT [place] [address] ([facility]) (test code = MIKY Marte [place] 1538) [address] POCT-GLUCOSE [id number] 12:41:00 Test Item Value Reference Range Interpretation Comments POC-GLUCOSE METER 133 mg/dL 70-110 H TESTED AT [place] [address] ([facility]) (test code = MIKY Marte [place] 1538) [address] BLOOD [id number] 11:00:00 Test Item Value Reference Range Interpretation Comments CULTURE ([facility]) (test No growth in 5 days code = 1095) POCT-GLUCOSE [id number] 07:57:00 Test Item Value Reference Range Interpretation Comments POC-GLUCOSE METER 132 mg/dL 70-110 H TESTED AT [place] [address] ([facility]) (test code = MIKY Marte [place] 1538) [address] VANCOMYCIN LEVEL, [id number] 07:30:00 Test Item Value Reference Range Interpretation Comments VANCOMYCIN RANDOM (BEAKER) (test 31.8 ug/mL code = 523) Reference Range: No [id number] 07:09:00 Test Item Value Reference Range Interpretation Comments PHOSPHORUS (BEAKER) (test code = 3.5 mg/dL 2.3-4.7 604) [id number] 07:09:00 Test Item Value Reference Range Interpretation Comments MAGNESIUM (BEAKER) (test code = 1.4 mg/dL 1.6-2.6 L 627) BASIC METABOLIC [id number] 07:09:00 Test Item Value Reference Range Interpretation [...] PATIEN TS. CBC W/PLT COUNT & AUTO [id number] 06:27:00 Test Item Value Reference Range Interpretation [...] PERCENT (BEAKER) (test code = 2801) POCT-GLUCOSE [id number] 21:46:00 Test Item Value Reference Range Interpretation Comments POC-GLUCOSE METER 262 mg/dL 70-110 H TESTED AT [place] [address] ([facility]) (test code = [facility] 1538) [address] POCT-GLUCOSE [id number] 17:44:00 Test Item Value Reference Range Interpretation Comments POC-GLUCOSE METER 175 mg/dL 70-110 H TESTED AT [place] [address] ([facility]) (test code = [facility] 1538) [address] POCT-GLUCOSE [id number] 12:25:00 Test Item Value Reference Range Interpretation Comments POC-GLUCOSE METER 173 mg/dL 70-110 H TESTED AT [place] [address] ([facility]) (test code = [facility] 1538) [address] BLOOD [id number] 12:00:00 Test Item Value Reference Range Interpretation Comments CULTURE ([facility]) (test No growth in 5 days code = 1095) POCT-GLUCOSE [id number] 08:52:00 Test Item Value Reference Range Interpretation Comments POC-GLUCOSE METER 183 mg/dL 70-110 H TESTED AT [facility] (BEAKER) (test code = MIKY NAJERA 1538) [address] [id number] 06:01:00 Test Item Value Reference Range Interpretation Comments PHOSPHORUS (BEAKER) (test code = 3.3 mg/dL 2.3-4.7 604) [id number] 06:01:00 Test Item Value Reference Range Interpretation Comments MAGNESIUM (BEAKER) (test code = 1.8 mg/dL 1.6-2.6 627) BASIC METABOLIC [id number] 06:01:00 Test Item Value Reference Range Interpretation [...] PATIEN TS. CBC W/PLT COUNT & AUTO [id number] 04:59:00 Test Item Value Reference Range Interpretation [...] PERCENT (BEAKER) (test code = 2801) POCT-GLUCOSE [id number] 21:51:00 Test Item Value Reference Range Interpretation Comments POC-GLUCOSE METER 203 mg/dL 70-110 H TESTED AT [facility] [address] (BEAKER) (test code = MIKY NAJERA 1538) [address] POCT-GLUCOSE [id number] 17:35:00 Test Item Value Reference Range Interpretation Comments POC-GLUCOSE METER 218 mg/dL 70-110 H TESTED AT [facility] ([facility]) (test code = [place] 1538) [address] SPUTUM CULTURE + GRAM [id number] 15:48:00 Test Item Value Reference Interpretation Comments [...] Vancomycin (test S code = 13) CULTURE (AKER) A <1+ Strepto coccus not (test code = 1095) group A b eta hemolyticIdenti fied by serological tamika uping. GRAM STAIN RESULT No WBCs (BEAKER) (test code = 1123) GRAM STAIN RESULT 0-5 epithelial (BEAKER) (test code cells = 431268) GRAM STAIN RESULT No organisms seen (AKER) (test code = 352429) <1+ Normal respiratory melanie presentPOCT-GLUCOSE [id number] 12:00:00 Test Item Value Reference Range Interpretation Comments POC-GLUCOSE METER 194 mg/dL 70-110 H TESTED AT [facility] [address] ([facility]) (test code = MIKY Marte [place] 1538) [address] BLOOD [id number] 12:00:00 Test Item Value Reference Range Interpretation Comments CULTURE (BEAKER) (test No growth in 5 days code = 1095) BLOOD [id number] 12:00:00 Test Item Value Reference Range Interpretation Comments CULTURE (BEAKER) (test No growth in 5 days code = 1095) POCT-GLUCOSE [id number] 05:58:00 Test Item Value Reference Range Interpretation Comments POC-GLUCOSE METER 228 mg/dL 70-110 H TESTED AT [facility] [address] ([facility]) (test code = MIKY Marte [place] 1538) [address] [id number] 04:42:00 Test Item Value Reference Range Interpretation Comments PHOSPHORUS (BEAKER) (test code = 3.1 mg/dL 2.3-4.7 604) [id number] 04:42:00 Test Item Value Reference Range Interpretation Comments MAGNESIUM (BEAKER) (test code = 1.9 mg/dL 1.6-2.6 627) BASIC METABOLIC [id number] 04:42:00 Test Item Value Reference Range Interpretation [...] PATIEN TS. CBC W/PLT COUNT & AUTO [id number] 04:27:00 Test Item Value Reference Range Interpretation [...] % 0-1 PERCENT (BEAKER) (test code = 2806) POCT-GLUCOSE [id number] 00:11:00 Test Item Value Reference Range Interpretation Comments POC-GLUCOSE METER 194 mg/dL 70-110 H TESTED AT [facility] [address] (BEAKER) (test code = MIKY NAJERA 1538) [address] [id number] 20:46:00 Test Item Value Reference Range Interpretation Comments MAGNESIUM (BEAKER) (test code = 1.9 mg/dL 1.6-2.6 627) BASIC METABOLIC [id number] 20:46:00 Test Item Value Reference Range Interpretation [...] NOT APPLICABLE FOR DIALYSIS PATIEN TS. POCT-GLUCOSE [id number] 19:29:00 Test Item Value Reference Range Interpretation Comments POC-GLUCOSE METER 317 mg/dL 70-110 H TESTED AT [place] [address] ([facility]) ([facility] = [place] [facility] [address] BLOOD GAS, [id number] 18:31:00 Test Item Value Reference Range Interpretation [...] 37.0 C code = 1818) From midlinePOCT-GLUCOSE [id number] 12:03:00 Test Item Value Reference Range Interpretation Comments POC-GLUCOSE METER 107 mg/dL 70-110 TESTED AT [place] [address] ([facility]) (test code = [facility] 1538) [address] POCT-GLUCOSE [id number] 12:03:00 Test Item Value Reference Range Interpretation Comments POC-GLUCOSE METER 75 mg/dL 70-110 TESTED AT [facility] 67[address] (BEAKER) (test code = [facility] [address] 1538) [id number] 06:12:00 Test Item Value Reference Range Interpretation Comments FERRITIN (BEAKER) (test code = 361) 334 ng/mL 5-275 H VITAMIN B12 AND [id number] 06:12:00 Test Item Value Reference Range Interpretation Comments VITAMIN B12 (BEAKER) (test code = 508 pg/mL 213-816 774) FOLATE (BEAKER) (test code = 362) 16.5 ng/mL >=7.0 POCT-GLUCOSE [id number] 06:00:00 Test Item Value Reference Range Interpretation Comments POC-GLUCOSE METER 84 mg/dL 70-110 TESTED AT [facility] 67[address] (BEAKER) (test code = [facility] [address] 1538) IRON, TIBC, % SAT. (WITHOUT FERRITIN)2017-06-08 05:42:00 Test Item Value Reference Range Interpretation Comments IRON (BEAKER) (test code = 547) 15 ug/dL 40-160 L TOTAL IRON BINDING CAPACITY 183 ug/dL 250-450 L (BEAKER) (test code = 769) IRON % SATURATION (2) (BEAKER) 8 % 20-55 L (test code = 2590) [id number] 05:42:00 Test Item Value Reference Range Interpretation Comments PHOSPHORUS (BEAKER) (test code = 2.8 mg/dL 2.3-4.7 604) [id number] 05:42:00 Test Item Value Reference Range Interpretation Comments MAGNESIUM (BEAKER) (test code = 1.6 mg/dL 1.6-2.6 627) BASIC METABOLIC [id number] 05:42:00 Test Item Value Reference Range Interpretation [...] PATIEN TS. CBC W/PLT COUNT & AUTO [id number] 05:25:00 Test Item Value Reference Range Interpretation [...] PERCENT (BEAKER) (test code = 2801) POCT-GLUCOSE [id number] 23:41:00 Test Item Value Reference Range Interpretation Comments POC-GLUCOSE METER 180 mg/dL 70-110 H TESTED AT [facility] 67[address] (BEAKER) (test code = MIKY Marte [facility] 1538) [address] RAD, ABDOMEN/KUB, 1 VIEW [id number] 22:29:00Reason for exam:->feeding tube placementFINAL REPORT Comparison: 06/07/2017 at 9:51 PM TECHNIQUE: Frontal image of the abdomen FINDINGS: Feeding tube has been repositioned. Tip now projects in the distal stomach. No other significant change. Signed: Kali Medina Verified Date/Time: 06/07/2017 22:29:27 Reading Location: [facility] B1 C013W Consult Reading Room RAD, ABDOMEN/KUB, 1 VIEW 2017-06-07 22:16:00Reason for exam:->feeding tube placementFINAL REPORT Comparison: 06/03/2017 TECHNIQUE: Frontal image of the abdomen FINDINGS: Feeding tube has been advanced. Distal portion is turned back upon itself and the tip projects in the fundus. Bowel gas pattern is nonspecific. Signed: Kali Medina Verified Date/Time: 06/07/2017 22:16:52 Reading Location: [facility] B1 C013W Consult Reading Room [facility] METABOLIC PANEL 2017-06-07 19:04:00 Test Item [...] NOT APPLICABLE FOR DIALYSIS PATIEN TS. POCT-GLUCOSE [id number] 18:24:00 Test Item Value Reference Range Interpretation Comments POC-GLUCOSE METER 198 mg/dL 70-110 H TESTED AT [facility] ([facility]) (test code = [place]KY [place] 1538) [address] [id number] 17:53:00 Test Item Value Reference Range Interpretation Comments PROCALCITONIN (BEAKER) (test code = < ng/mL <0.05 3036) SEPSIS RISK (ng/mL)Low: 0.05-0.50Intermediate: 0.51-2.00High: >=2.01RETICULOCYTE [id number] 17:06:00 Test Item Value Reference Range Interpretation Comments RETICULOCYTE COUNT PCT (BEAKER) (test 2.7 % 0.5-1.8 H code = 575) POCT-GLUCOSE [id number] 13:07:00 Test Item Value Reference Range Interpretation Comments POC-GLUCOSE METER 240 mg/dL 70-110 H TESTED AT [facility] ([facility]) (test code = MIKY Marte [facility] 1538) [address] RAD, CHEST, 1 VIEW, NON [id number] 08:42:00Reason for exam:- >intubatedShould this be performed at the bedside?->YesFINAL REPORT Chest one view compared to June 06, 2017 Discussion: Left chest pacemaker, feeding tube, right IJ line in place. There is pulmonary congestion with subtle suspected airspace opacity left lung base all unchanged. No gross effusion or pneumothorax. Signed: Jerel Noguera Verified Date/Time: 06/07/2017 08:42:41 Reading Location: [facility] Radiology Reading Room [id number] 05:52:00 Test Item Value Reference Range Interpretation [...] acidosis, acute neurological disease, and persistent tachyarrhythmia.POCT-GLUCOSE [id number] 05:48:00 Test Item Value Reference Range Interpretation Comments POC-GLUCOSE METER 148 mg/dL 70-110 H TESTED AT [facility] ([facility]) (test code = MIKY Marte [facility] 1538) [address] [id number] 05:43:00 Test Item Value Reference Range Interpretation Comments PHOSPHORUS (BEAKER) (test code = 2.9 mg/dL 2.3-4.7 604) [id number] 05:43:00 Test Item Value Reference Range Interpretation Comments MAGNESIUM (BEAKER) (test code = 1.6 mg/dL 1.6-2.6 627) BASIC METABOLIC [id number] 05:43:00 Test Item Value Reference Range Interpretation [...] DIALYSIS PATIEN TS. LACTIC ACID, VENOUS, WHOLE [id number] 05:41:00 Test Item Value Reference Range Interpretation Comments LACTATE BLOOD VENOUS (2) (BEAKER) 0.9 mmol/L 0.5-2.2 (test code = 2872) Effective 06/10/2015: Units/Reference Range ChangeNew: 0.5-2.2 mmol/L Previous: 5-20 mg/dLCBC W/PLT COUNT & AUTO [id number] 05:26:00 Test Item Value Reference Range Interpretation [...] H (test code = 700) BASIC METABOLIC [id number] 00:34:00 Test Item Value Reference Range Interpretation [...] NOT APPLICABLE FOR DIALYSIS PATIEN TS. POCT-GLUCOSE [id number] 23:42:00 Test Item Value Reference Range Interpretation Comments POC-GLUCOSE METER 195 mg/dL 70-110 H TESTED AT [place] [address] ([facility]) (test code = [place] [email or web address] [facility] 1538) [address] BASIC METABOLIC [id number] 17:50:00 Test Item Value Reference Range Interpretation [...] NOT APPLICABLE FOR DIALYSIS PATIEN TS. POCT-GLUCOSE [id number] 17:48:00 Test Item Value Reference Range Interpretation Comments POC-GLUCOSE METER 228 mg/dL 70-110 H TESTED AT [place] [address] ([facility]) (test code = MIKY Marte [facility] 1538) [address] POCT-GLUCOSE [id number] 12:03:00 Test Item Value Reference Range Interpretation Comments POC-GLUCOSE METER 237 mg/dL 70-110 H TESTED AT [facility] 67[address] (BEAKER) (test code = MIKY [place] 1538) [address] BASIC METABOLIC [id number] 09:39:00 Test Item Value Reference Range Interpretation [...] NOT APPLICABLE FOR DIALYSIS PATIEN TS. CALCIUM, [id number] 04:52:00 Test Item Value Reference Range Interpretation Comments CALCIUM IONIZED (BEAKER) (test 1.08 mmol/L 1.12-1.27 L code = 698) PH, BLOOD (BEAKER) (test code = 7.42 1810) [id number] 04:43:00 Test Item Value Reference Range Interpretation Comments PHOSPHORUS (BEAKER) (test code = 3.5 mg/dL 2.3-4.7 604) [id number] 04:43:00 Test Item Value Reference Range Interpretation Comments MAGNESIUM (BEAKER) (test code = 1.8 mg/dL 1.6-2.6 627) LACTIC ACID, VENOUS, WHOLE [id number] 04:34:00 Test Item Value Reference Range Interpretation Comments LACTATE BLOOD VENOUS (2) (BEAKER) 1.6 mmol/L 0.5-2.2 (test code = 2872) Effective 06/10/2015: Units/Reference Range ChangeNew: 0.5-2.2 mmol/L Previous: 5-20 mg/dLRAD, CHEST, 1 VIEW, NON [id number] 04:29:00Reason for exam:- >intubatedShould this be performed [...] MDReport Verified Date/Time: 06/06/2017 04:29:24 Reading Location: [address] Transitional Reading Room CBC W/PLT COUNT & AUTO [id number] 04:14:00 Test Item Value Reference Range Interpretation [...] % 0-1 PERCENT (BEAKER) (test code = 2804) POCT-GLUCOSE [id number] 04:08:00 Test Item Value Reference Range Interpretation Comments POC-GLUCOSE METER 262 mg/dL 70-110 H TESTED AT [place] [address] ([facility]) (test code = MIKY [place] 1538) [address] POCT-GLUCOSE [id number] 04:08:00 Test Item Value Reference Range Interpretation Comments POC-GLUCOSE METER 288 mg/dL 70-110 H TESTED AT [facility] (BEAKER) (test code = MIKY Marte [place] 1538) [address] POCT-GLUCOSE [id number] 03:43:00 Test Item Value Reference Range Interpretation Comments POC-GLUCOSE METER 248 mg/dL 70-110 H TESTED AT [place] [address] (BEAKER) (test code = MIKY Marte [facility] 1538) [address] BASIC METABOLIC [id number] 01:47:00 Test Item Value Reference Range Interpretation [...] APPLICABLE FOR DIALYSIS PATIEN TS. VANCOMYCIN LEVEL, [id number] 21:49:00 Test Item Value Reference Range Interpretation Comments VANCOMYCIN TROUGH (BEAKER) (test 21.4 ug/mL 10.0-20.0 H code = 522) POCT-GLUCOSE [id number] 18:34:00 Test Item Value Reference Range Interpretation Comments POC-GLUCOSE METER 250 mg/dL 70-110 H TESTED AT [facility] 67[address] (BEAKER) (test code = MIKY [place] 1538) [address] [id number] 18:00:00 Test Item Value Reference Range Interpretation Comments MAGNESIUM (BEAKER) (test code = 1.4 mg/dL 1.6-2.6 L 627) BASIC METABOLIC [id number] 18:00:00 Test Item Value Reference Range Interpretation [...] NOT APPLICABLE FOR DIALYSIS PATIEN TS. POCT-GLUCOSE [id number] 11:41:00 Test Item Value Reference Range Interpretation Comments POC-GLUCOSE METER 214 mg/dL 70-110 H TESTED AT [facility] 67[address] (BEAKER) (test code = MIKY NAJER[place] 1538) [address] CREATINE KINASE (CK), TOTAL AND [id number] 10:29:00 Test Item Value Reference Range Interpretation Comments CREATINE KINASE TOTAL (BEAKER) 45 U/L 29-200 (test code = 380) CREATINE KINASE-MB (BEAKER) (test 0.5 ng/mL 0.0-6.6 code = 750) CREATINE KINASE-MB INDEX (BEAKER) 1.1 % (test code = 395) CK-MB Reference Range:<6.7 Normal6.7-10.0 Borderline>10.0 AbnormalBASIC METABOLIC [id number] 10:23:00 Test Item Value Reference Range Interpretation [...] PATIEN TS. RAD, CHEST, 1 VIEW, NON [id number] 07:34:00Reason for exam:- >intubatedShould this be performed at the bedside?->YesFINAL REPORT Chest one view compared to June 04 Discussion: Support tubes, right IJ line, left chest pacemaker in place. Mild pulmonary congestion and probable left base atelectasis. No gross effusion or pneumothorax. IMPRESSIONS: No change. ET tube tip probably 1.3 cm from thecarina. Signed: Jerel Nogueraeport Verified Date/Time: 06/05/2017 07:34:54 Reading Location: [facility] Radiology Reading Room POCT-GLUCOSE [id number] 06:35:00 Test Item Value Reference Range Interpretation Comments POC-GLUCOSE METER 209 mg/dL 70-110 H TESTED AT [facility] 67[address] (BEAKER) (test code = MIKY Marte [facility] 1538) [address] BLOOD [id number] 06:00:00 Test Item Value Reference Range Interpretation Comments CULTURE (BEAKER) (test No growth in 5 days code = 1095) BLOOD [id number] 06:00:00 Test Item Value Reference Range Interpretation Comments CULTURE (BEAKER) (test No growth in 5 days code = 1095) CREATINE KINASE (CK), TOTAL AND [id number] 05:23:00 Test Item Value Reference Range Interpretation Comments CREATINE KINASE TOTAL (BEAKER) 52 U/L 29-200 (test code = 380) CREATINE KINASE-MB (BEAKER) (test 0.4 ng/mL 0.0-6.6 code = 750) CREATINE KINASE-MB INDEX (BEAKER) 0.8 % (test code = 395) CK-MB Reference Range:<6.7 Normal6.7-10.0 Borderline>10.0 [id number] 05:16:00 Test Item Value Reference Range Interpretation Comments PHOSPHORUS (BEAKER) (test code = 2.9 mg/dL 2.3-4.7 604) [id number] 05:16:00 Test Item Value Reference Range Interpretation Comments MAGNESIUM (BEAKER) (test code = 1.4 mg/dL 1.6-2.6 L 627) BASIC METABOLIC [id number] 05:16:00 Test Item Value Reference Range Interpretation [...] PATIEN TS. CBC W/PLT COUNT & AUTO [id number] 05:08:00 Test Item Value Reference Range Interpretation [...] code = 2801) LACTIC ACID, VENOUS, WHOLE [id number] 05:07:00 Test Item Value Reference Range Interpretation Comments LACTATE BLOOD VENOUS (2) (BEAKER) 1.1 mmol/L 0.5-2.2 (test code = 2872) Effective 06/10/2015: Units/Reference Range ChangeNew: 0.5-2.2 mmol/L Previous: 5-20 mg/dLPOCT-GLUCOSE [id number] 00:49:00 Test Item Value Reference Range Interpretation Comments POC-GLUCOSE METER 205 mg/dL 70-110 H TESTED AT [facility] 6720 (BEAKER) (test code = MIKY NAJERA 1538) [address] POCT-GLUCOSE [id number] 17:29:00 Test Item Value Reference Range Interpretation Comments POC-GLUCOSE METER 211 mg/dL 70-110 H TESTED AT [facility] (BEAKER) (test code = MIKY KAN [place] 1538) [address] CREATINE KINASE (CK), TOTAL AND [id number] 16:23:00 Test Item Value Reference Range Interpretation Comments CREATINE KINASE TOTAL (BEAKER) 89 U/L 29-200 (test code = 380) CREATINE KINASE-MB (BEAKER) (test 0.8 ng/mL 0.0-6.6 code = 750) CREATINE KINASE-MB INDEX (BEAKER) 0.9 % (test code = 395) CK-MB Reference Range:<6.7 Normal6.7-10.0 Borderline>10.0 AbnormalBASIC METABOLIC [id number] 16:17:00 Test Item Value Reference Range Interpretation [...] FOR DIALYSIS PATIEN TS. CT, BRAIN, WITHOUT [id number] 15:33:00FINAL REPORT CT Head without contrast CLINICAL [...] MDReport Verified Date/Time: 06/04/2017 15:33:02 Reading Location: [facility] C013V Neuro Reading Room Electronicallysigned by: LISA HARDY M.D. on 06/04/2017 03:33 PMPOCT-GLUCOSE [id number] 13:13:00 Test Item Value Reference Range Interpretation Comments POC-GLUCOSE METER 271 mg/dL 70-110 H TESTED AT [facility] ([facility]) (test code = MIKY Marte [facility] 1538) [address] SPUTUM CULTURE + GRAM [id number] 11:40:00 Test Item Value Reference Interpretation Comments [...] 0-5 epithelial (BEAKER) (test code = cells 562497) GRAM STAIN RESULT No organisms seen (BEAKER) (test code = 839731) 1+ Normal respiratory melanie presentCREATINE KINASE (CK), TOTAL AND [id number] 09:49:00 Test Item Value Reference Range Interpretation Comments CREATINE KINASE TOTAL (BEAKER) 61 U/L 29-200 (test code = 380) CREATINE KINASE-MB (BEAKER) (test 0.7 ng/mL 0.0-6.6 code = 750) CREATINE KINASE-MB INDEX (BEAKER) 1.1 % (test code = 395) CK-MB Reference Range:<6.7 Normal6.7-10.0 Borderline>10.0 AbnormalBASIC METABOLIC [id number] 09:43:00 Test Item Value Reference Range Interpretation [...] DIALYSIS PATIEN TS. LACTIC ACID, VENOUS, WHOLE [id number] 09:38:00 Test Item Value Reference Range Interpretation Comments LACTATE BLOOD VENOUS (2) (BEAKER) 0.8 mmol/L 0.5-2.2 (test code = 2872) Effective 06/10/2015: Units/Reference Range ChangeNew: 0.5-2.2 mmol/L Previous: 5-20 mg/dLPOCT-GLUCOSE [id number] 06:06:00 Test Item Value Reference Range Interpretation Comments POC-GLUCOSE METER 133 mg/dL 70-110 H TESTED AT [facility] 6720 (BEAKER) (test code = MIKY NAJERA 1538) [address] BLOOD GAS, [id number] 05:21:00 Test Item Value Reference Range Interpretation [...] (BEAKER) (test code = 1819) 50.0 % [id number] 05:12:00 Test Item Value Reference Range Interpretation Comments PHOSPHORUS (BEAKER) (test code = 2.9 mg/dL 2.3-4.7 604) [id number] 05:12:00 Test Item Value Reference Range Interpretation Comments MAGNESIUM (BEAKER) (test code = 1.8 mg/dL 1.6-2.6 627) CBC W/PLT COUNT & AUTO [id number] 04:33:00 Test Item Value Reference Range Interpretation [...] = 2801) RAD, CHEST, 1 VIEW, NON [id number] 04:20:00Reason for exam:->ventedShould this be performed at [...] MDReport Verified Date/Time: 06/04/2017 04:20:06 Reading Location: [address] Reading Room CREATINE KINASE (CK), TOTAL AND [id number] 00:29:00 Test Item Value Reference Range Interpretation Comments CREATINE KINASE TOTAL (BEAKER) 43 U/L 29-200 (test code = 380) CREATINE KINASE-MB (BEAKER) (test 0.6 ng/mL 0.0-6.6 code = 750) CREATINE KINASE-MB INDEX (BEAKER) 1.4 % (test code = 395) CK-MB Reference Range:<6.7 Normal6.7-10.0 Borderline>10.0 AbnormalBASIC METABOLIC [id number] 00:23:00 Test Item Value Reference Range Interpretation [...] NOT APPLICABLE FOR DIALYSIS PATIEN TS. POCT-GLUCOSE [id number] 00:06:00 Test Item Value Reference Range Interpretation Comments POC-GLUCOSE METER 116 mg/dL 70-110 H TESTED AT [facility] 6720 (BEAKER) (test code = MIKY [place] 8018) [address] HEMOGLOBIN AND [id number] 00:01:00 Test Item Value Reference Range Interpretation Comments HEMOGLOBIN (BEAKER) (test code = 7.8 GM/DL 13.7-17.5 L 410) HEMATOCRIT (BEAKER) (test code = 25.1 % 40.1-51.0 L 411) RAD, ABDOMEN/KUB, 1 VIEW [id number] 23:47:00Reason for exam:->s/p corpak placementFINAL REPORT EXAMINATION: [...] MDReport Verified Date/Time: 06/03/2017 23:47:47 Reading Location: [address] Reading Room BLOOD GAS, [id number] 19:32:00 Test Item Value Reference Range Interpretation [...] 60.0 % RAD, CHEST, 1 VIEW, NON [id number] 17:52:00Reason for exam:- >intubationShould this be performed [...] MDReport Verified Date/Time: 06/03/2017 17:52:43 Reading Location: [address] Reading Room POCT-GLUCOSE [id number] 17:46:00 Test Item Value Reference Range Interpretation Comments POC-GLUCOSE METER 134 mg/dL 70-110 H TESTED AT [facility] 6720 ([facility]) (test code = MIKY Marte [facility] 1538) [address] CREATINE KINASE (CK), TOTAL AND [id number] 15:27:00 Test Item Value Reference Range Interpretation Comments CREATINE KINASE TOTAL (BEAKER) 67 U/L 29-200 (test code = 380) CREATINE KINASE-MB (BEAKER) (test 0.7 ng/mL 0.0-6.6 code = 750) CREATINE KINASE-MB INDEX (BEAKER) 1.0 % (test code = 395) CK-MB Reference Range:<6.7 Normal6.7-10.0 Borderline>10.0 AbnormalBASIC METABOLIC [id number] 15:20:00 Test Item Value Reference Range Interpretation [...] APPLICABLE FOR DIALYSIS PATIEN TS. HEPATITIS A [id number] 15:03:00 Test Item Value Reference Range Interpretation Comments HEPATITIS A IGM ANTIBODY (BEAKER) Nonreactive Nonreactive (test code = 498) HEPATITIS A IGG ANTIBODY (BEAKER) Reactive Nonreactive A (test code = 2797) HEMOGLOBIN AND [id number] 15:02:00 Test Item Value Reference Range Interpretation Comments HEMOGLOBIN (BEAKER) (test code = 8.9 GM/DL 13.7-17.5 L 410) HEMATOCRIT (BEAKER) (test code = 29.0 % 40.1-51.0 L 411) BLOOD GAS, [id number] 15:01:00 Test Item Value Reference Range Interpretation [...] code = 1819) 32.0 % HEPATITIS C [id number] 14:58:00 Test Item Value Reference Range Interpretation Comments HEPATITIS C ANTIBODY (BEAKER) Nonreactive Nonreactive (test code = 367) HEPATITIS B [id number] 14:58:00 Test Item Value Reference Range Interpretation Comments HEPATITIS B CORE TOTAL ANTIBODY Nonreactive Nonreactive (BEAKER) (test code = 497) HEPATITIS B SURFACE ANTIBODY 22.2 mIU/mL <8.0 H (BEAKER) (test code = 647) HEPATITIS B SURFACE ANTIGEN (2) Nonreactive Nonreactive (BEAKER) (test code = 2585) POCT-GLUCOSE [id number] 11:57:00 Test Item Value Reference Range Interpretation Comments POC-GLUCOSE METER 228 mg/dL 70-110 H TESTED AT [facility] 6720 (BEAKER) (test code = MIKY [place] 1538) [address] BLOOD GAS, [id number] 11:12:00 Test Item Value Reference Range Interpretation [...] (test code = 1819) 40.0 % HEMOGLOBIN [id number] 10:39:00 Test Item Value Reference Range Interpretation Comments HEMOGLOBIN A1C (BEAKER) (test code = 5.5 % 4.3-6.1 368) CREATINE KINASE (CK), TOTAL AND [id number] 08:26:00 Test Item Value Reference Range Interpretation Comments CREATINE KINASE TOTAL (BEAKER) 72 U/L 29-200 (test code = 380) CREATINE KINASE-MB (BEAKER) (test 0.9 ng/mL 0.0-6.6 code = 750) CREATINE KINASE-MB INDEX (BEAKER) 1.3 % (test code = 395) CK-MB Reference Range:<6.7 Normal6.7-10.0 Borderline>10.0 AbnormalBASIC METABOLIC [id number] 08:20:00 Test Item Value Reference Range Interpretation [...] PATIEN TSKj RAD, CHEST, 1 VIEW, NON [id number] 08:05:00Reason for exam:->ventedShould this be performed at the bedside?->YesFINAL REPORT Chest, one view. HISTORY: Vented COMPARISON: 06/02/2017 IMPRESSION: Supporting hardware unchanged in position. Mild interstitial edema. Unchanged enlargement of the cardiomediastinal silhouette. Trace left pleural effusion. No identifiable pneumothorax. Signed: Venu Holmaneport Verified Date/Time: 06/03/2017 08:05:13 Reading Location: [facility] C013Y CT Body Reading Room GLOBIN AND [id number] 07:52:00 Test Item Value Reference Range Interpretation Comments HEMOGLOBIN (BEAKER) (test code = 8.7 GM/DL 13.7-17.5 L 410) HEMATOCRIT (BEAKER) (test code = 27.6 % 40.1-51.0 L 411) POCT-GLUCOSE [id number] 06:48:00 Test Item Value Reference Range Interpretation Comments POC-GLUCOSE METER 281 mg/dL 70-110 H TESTED AT [facility] 6720 (BEAKER) (test code = MIKY [place] 1538) [address] BLOOD GAS, [id number] 05:52:00 Test Item Value Reference Range Interpretation [...] code = 1819) 40.0 % BASIC METABOLIC [id number] 05:47:00 Test Item Value Reference Range Interpretation [...] PATIEN TS. CBC W/PLT COUNT & AUTO [id number] 05:40:00 Test Item Value Reference Range Interpretation [...] 0-1 PERCENT (BEAKER) (test code = 2801) [id number] 05:37:00 Test Item Value Reference Range Interpretation Comments PHOSPHORUS (BEAKER) (test code = 2.5 mg/dL 2.3-4.7 604) [id number] 05:37:00 Test Item Value Reference Range Interpretation Comments MAGNESIUM (BEAKER) (test code = 1.8 mg/dL 1.6-2.6 627) BASIC METABOLIC [id number] 00:57:00 Test Item Value Reference Range Interpretation [...] PATIEN TS. CREATINE KINASE (CK), TOTAL AND [id number] 00:55:00 Test Item Value Reference Range Interpretation Comments CREATINE KINASE TOTAL (BEAKER) 61 U/L 29-200 (test code = 380) CREATINE KINASE-MB (BEAKER) (test 0.8 ng/mL 0.0-6.6 code = 750) CREATINE KINASE-MB INDEX (BEAKER) 1.3 % (test code = 395) CK-MB Reference Range:<6.7 Normal6.7-10.0 Borderline>10.0 AbnormalHEMOGLOBIN AND [id number] 00:39:00 Test Item Value Reference Range Interpretation Comments HEMOGLOBIN (BEAKER) (test code = 8.2 GM/DL 13.7-17.5 L 410) HEMATOCRIT (BEAKER) (test code = 25.8 % 40.1-51.0 L 411) POCT-GLUCOSE [id number] 00:38:00 Test Item Value Reference Range Interpretation Comments POC-GLUCOSE METER 289 mg/dL 70-110 H TESTED AT [facility] (test code = [facility] [place] 1538) [address] BASIC METABOLIC [id number] 19:04:00 Test Item Value Reference Range Interpretation [...] NOT APPLICABLE FOR DIALYSIS PATIEN TS. POCT-GLUCOSE [id number] 17:54:00 Test Item Value Reference Range Interpretation Comments POC-GLUCOSE METER 185 mg/dL 70-110 H TESTED AT [place] 4044020 (BEAKER) (test code = [facility] 1538) [address] POCT-GLUCOSE [id number] 17:06:00 Test Item Value Reference Range Interpretation Comments POC-GLUCOSE METER 171 mg/dL 70-110 H TESTED AT [place] 40440[address] (BEAKER) (test code = [facility] 1538) [address] CREATINE KINASE (CK), TOTAL AND [id number] 16:32:00 Test Item Value Reference Range Interpretation Comments CREATINE KINASE TOTAL (BEAKER) 77 U/L 29-200 (test code = 380) CREATINE KINASE-MB (BEAKER) (test 0.7 ng/mL 0.0-6.6 code = 750) CREATINE KINASE-MB INDEX (BEAKER) 0.9 % (test code = 395) CK-MB Reference Range:<6.7 Normal6.7-10.0 Borderline>10.0 AbnormalBASIC METABOLIC [id number] 16:28:00 Test Item Value Reference Range Interpretation [...] NOT APPLICABLE FOR DIALYSIS PATIEN TS. POCT-GLUCOSE [id number] 16:24:00 Test Item Value Reference Range Interpretation Comments POC-GLUCOSE METER 172 mg/dL 70-110 H TESTED AT [place] [address] ([facility]) (test code = [facility] 1538) [address] POCT-GLUCOSE [id number] 15:30:00 Test Item Value Reference Range Interpretation Comments POC-GLUCOSE METER 192 mg/dL 70-110 H TESTED AT [place] [address] ([facility]) (test code = [facility] [place] 1538) [address] URINE [id number] 14:28:00 Test Item Value Reference Range Interpretation Comments CULTURE ([facility]) (test code = 1095) No growth POCT-GLUCOSE [id number] 14:10:00 Test Item Value Reference Range Interpretation Comments POC-GLUCOSE METER 183 mg/dL 70-110 H TESTED AT [facility] 6720 ([facility]) (test code = [facility] [place] 1538) [address] POCT-GLUCOSE [id number] 14:10:00 Test Item Value Reference Range Interpretation Comments POC-GLUCOSE METER 191 mg/dL 70-110 H TESTED AT [facility] 6720 ([facility]) (test code = MIKY Marte [place] 1538) [address] RAD, ABDOMEN/KUB, 1 VIEW [id number] 13:03:00Reason for exam:->dobbhoff tube placementFINAL REPORT Abdomen one view INDICATION: Dobbhoff tube placement COMPARISON:05/30/2017 IMPRESSION: Feeding tube tip extends to the distal stomach. Suggest advancing. The bowel gas pattern is nonspecific. Cholecystectomy clips, degenerative spine changes, and vascular calcifications and stents are noted. The imaged lower chest is similar to earlier today. Signed: Tanisha Montalvo MDReport Verified Date/Time: 06/02/2017 13:03:48 Reading Location: [facility] Radiology Reading Room POCT- GLUCOSE [id number] 11:56:00 Test Item Value Reference Range Interpretation Comments POC-GLUCOSE METER 123 mg/dL 70-110 H TESTED AT [facility] 6720 ([facility]) (test code = MIKY Marte [facility] 1538) [address] POCT-GLUCOSE [id number] 10:58:00 Test Item Value Reference Range Interpretation Comments POC-GLUCOSE METER 206 mg/dL 70-110 H TESTED AT [facility] 67 ([facility]) (test code = MIKY Marte [facility] 1538) [address] HEMOGLOBIN AND [id number] 10:38:00 Test Item Value Reference Range Interpretation Comments HEMOGLOBIN (BEAKER) (test code = 8.9 GM/DL 13.7-17.5 L 410) HEMATOCRIT ([facility]) (test code = 28.7 % 40.1-51.0 L 411) [id number] 09:04:00 Test Item Value Reference Range Interpretation Comments GLUCOSE RANDOM (BEAKER) (test code 230 mg/dL 70-105 H = 652) CREATINE KINASE (CK), TOTAL AND [id number] 08:55:00 Test Item Value Reference Range Interpretation Comments CREATINE KINASE TOTAL (BEAKER) 96 U/L 29-200 (test code = 380) CREATINE KINASE-MB (BEAKER) (test 1.0 ng/mL 0.0-6.6 code = 750) CREATINE KINASE-MB INDEX (BEAKER) 1.0 % (test code = 395) CK-MB Reference Range:<6.7 Normal6.7-10.0 Borderline>10.0 AbnormalTROPONIN [id number] 08:55:00 Test Item Value Reference Range Interpretation [...] failure, acidosis, acute neurological disease, and persistent tachyarrhythmia.[id number] 08:42:00 Test Item Value Reference Range Interpretation Comments AMMONIA (BEAKER) (test code = 348) 52 mol/L 18-72 POCT-GLUCOSE [id number] 06:16:00 Test Item Value Reference Range Interpretation Comments POC-GLUCOSE METER 213 mg/dL 70-110 H TESTED AT [facility] 6720 ([facility]) (test code = MIKY KAN [place] 1538) [address] BLOOD GAS, [id number] 05:52:00 Test Item Value Reference Range Interpretation [...] code = 1819) 40.0 % COMPREHENSIVE METABOLIC [id number] 05:41:00 Test Item Value Reference Range Interpretation [...] S NOT APPLICABLE FOR DIALYSIS PATIEN TS. [id number] 05:35:00 Test Item Value Reference Range Interpretation Comments PHOSPHORUS (BEAKER) (test code = 2.7 mg/dL 2.3-4.7 604) [id number] 05:35:00 Test Item Value Reference Range Interpretation Comments MAGNESIUM (BEAKER) (test code = 2.0 mg/dL 1.6-2.6 627) CBC W/PLT COUNT & AUTO [id number] 05:23:00 Test Item Value Reference Range Interpretation [...] = 2801) RAD, CHEST, 1 VIEW, NON [id number] 04:41:00Reason for exam:->ventedShould this be performed at [...] MDReport Verified Date/Time: 06/02/2017 04:41:51 Reading Location: [address] Reading Room CREATINE KINASE (CK), TOTAL AND [id number] 01:02:00 Test Item Value Reference Range Interpretation Comments CREATINE KINASE TOTAL (BEAKER) 109 U/L 29-200 (test code = 380) CREATINE KINASE-MB (BEAKER) (test 1.0 ng/mL 0.0-6.6 code = 750) CREATINE KINASE-MB INDEX (BEAKER) 0.9 % (test code = 395) CK-MB Reference Range:<6.7 Normal6.7-10.0 Borderline>10.0 AbnormalTROPONIN [id number] 01:02:00 Test Item Value Reference Range Interpretation [...] acidosis, acute neurological disease, and persistent tachyarrhythmia.POCT-GLUCOSE [id number] 00:25:00 Test Item Value Reference Range Interpretation Comments POC-GLUCOSE METER 234 mg/dL 70-110 H TESTED AT [facility] 6720 ([facility]) (test code = MIKY Marte [place] 1538) [address] [id number] 22:40:00 Test Item Value Reference Range Interpretation Comments MAGNESIUM (MOY) (test code = 2.0 mg/dL 1.6-2.6 627) PROTHROMBIN TIME/[id number] 22:34:00 Test Item Value Reference Range Interpretation Comments PROTIME (MOY) (test code = 18.0 seconds 11.7-14.7 H 759) INR ([facility]) (test code = 370) 1.5 <=5.9 RECOMMENDED COUMADIN/WARFARIN INR THERAPY RANGESSTANDARD DOSE: 2.0 - 3.0 Includes: PROPHYLAXIS forvenous thrombosis, systemic embolization; TREATMENT for venous thrombosis and/or pulmonary embolus.HIGH RISK: Target INR is 2.5-3.5 for patients with mechanical heart valves.HEMOGLOBIN AND [id number] 22:27:00 Test Item Value Reference Range Interpretation Comments HEMOGLOBIN (MOY) (test code = 8.3 GM/DL 13.7-17.5 L 410) HEMATOCRIT (NICO) (test code = 25.9 % 40.1-51.0 L 411) POCT-GLUCOSE [id number] 18:46:00 Test Item Value Reference Range Interpretation Comments POC-GLUCOSE METER 318 mg/dL 70-110 H Notified R Delgado FOUNTAIN/TESTED (MOY) (test code = AT [facility] 67[address]A 1538) [facility] 7[address] CREATINE KINASE (CK), TOTAL AND [id number] 18:06:00 Test Item Value Reference Range Interpretation Comments CREATINE KINASE TOTAL (WILLIANAKER) 155 U/L 29-200 (test code = 380) CREATINE KINASE-MB (AKER) (test 1.2 ng/mL 0.0-6.6 code = 750) CREATINE KINASE-MB INDEX (WILLIANAKER) 0.8 % (test code = 395) CK-MB Reference Range:<6.7 Normal6.7-10.0 Borderline>10.0 AbnormalTROPONIN [id number] 18:06:00 Test Item Value Reference Range Interpretation Comments TROPONIN I (MOY) (test code = 0.15 ng/mL 0.00-0.03 H [...] acute neurological disease, and persistent tachyarrhythmia.HEMOGLOBIN AND [id number] 17:41:00 Test Item Value Reference Range Interpretation Comments HEMOGLOBIN (BEAKER) (test code = 8.7 GM/DL 13.7-17.5 L 410) HEMATOCRIT (BEAKER) (test code = 27.0 % 40.1-51.0 L 411) RAD, CHEST, 1 VIEW, NON [id number] 17:39:00Reason for exam:->central line placement Should this [...] MDReport Verified Date/Time: 06/01/2017 17:39:56 Reading Location: [facility] C013W Consult Reading Room BASIC METABOLIC [id number] 13:20:00 Test Item Value Reference Range Interpretation [...] NOT APPLICABLE FOR DIALYSIS PATIEN TS. TROPONIN [id number] 13:20:00 Test Item Value Reference Range Interpretation [...] Range:<6.7 Normal6.7-10.0 Borderline>10.0 AbnormalLACTIC ACID, VENOUS, WHOLE [id number] 12:45:00 Test Item Value Reference Range Interpretation Comments LACTATE BLOOD VENOUS (2) (BEAKER) 0.8 mmol/L 0.5-2.2 (test code = 2872) Effective 06/10/2015: Units/Reference Range ChangeNew: 0.5-2.2 mmol/L Previous: 5-20 mg/dLPT/[id number] 12:29:00 Test Item Value Reference Range Interpretation [...] 2.5-3.5 for patients with mechanical heart valves.POCT-GLUCOSE [id number] 12:28:00 Test Item Value Reference Range Interpretation Comments POC-GLUCOSE METER 180 mg/dL 70-110 H TESTED AT [place] [address] (BEAKER) (test code = MIKY Marte [place] 1538) [address] BLOOD GAS, [id number] 12:24:00 Test Item Value Reference Range Interpretation [...] code = 1819) 40.0 % HEMOGLOBIN AND [id number] 12:20:00 Test Item Value Reference Range Interpretation Comments HEMOGLOBIN (BEAKER) (test code = 7.4 GM/DL 13.7-17.5 L 410) HEMATOCRIT (BEAKER) (test code = 23.2 % 40.1-51.0 L 411) POCT-GLUCOSE [id number] 11:20:00 Test Item Value Reference Range Interpretation Comments POC-GLUCOSE METER 113 mg/dL 70-110 H TESTED AT [place] [address] (BEAKER) (test code = MIKY Marte [place] 1538) [address] POCT-GLUCOSE [id number] 11:20:00 Test Item Value Reference Range Interpretation Comments POC-GLUCOSE METER 73 mg/dL 70-110 TESTED AT [place] [address] ([facility]) (test code = MIKY Marte [facility] [address] 1538) RAD, CHEST, 1 VIEW, NON [id number] 08:21:00Reason for exam:->acess for pulmonary edemaShould this [...] MDReport Verified Date/Time: 06/01/2017 08:21:22 Reading Location: [facility] Radiology Reading Room POCT-GLUCOSE [id number] 07:34:00 Test Item Value Reference Range Interpretation Comments POC-GLUCOSE METER 126 mg/dL 70-110 H TESTED AT [place] [address] ([facility]) (test code = MIKY Marte [facility] 1538) [address] POCT-GLUCOSE [id number] 06:58:00 Test Item Value Reference Range Interpretation Comments POC-GLUCOSE METER 171 mg/dL 70-110 H TESTED AT [place] [address] ([facility]) (test code = MIKY Marte [facility] 1538) [address] POCT-GLUCOSE [id number] 06:58:00 Test Item Value Reference Range Interpretation Comments POC-GLUCOSE METER 210 mg/dL 70-110 H TESTED AT [place] [address] ([facility]) (test code = [facility] Estuardo [facility] 1538) [address] BASIC METABOLIC [id number] 05:04:00 Test Item Value Reference Range Interpretation [...] NOT APPLICABLE FOR DIALYSIS PATIEN TS. TROPONIN [id number] 05:02:00 Test Item Value Reference Range Interpretation [...] = 395) CK-MB Reference Range:<6.7 Normal6.7-10.0 Borderline>10.0 [id number] 04:52:00 Test Item Value Reference Range Interpretation Comments PHOSPHORUS (BEAKER) (test code = 3.1 mg/dL 2.3-4.7 604) [id number] 04:52:00 Test Item Value Reference Range Interpretation Comments MAGNESIUM (BEAKER) (test code = 2.3 mg/dL 1.6-2.6 627) LACTIC ACID, VENOUS, WHOLE [id number] 04:45:00 Test Item Value Reference Range Interpretation Comments LACTATE BLOOD VENOUS (2) (BEAKER) 1.9 mmol/L 0.5-2.2 (test code = 2872) Effective 06/10/2015: Units/Reference Range ChangeNew: 0.5-2.2 mmol/L Previous: 5-20 mg/dLPOCT-GLUCOSE [id number] 03:55:00 Test Item Value Reference Range Interpretation Comments POC-GLUCOSE METER 175 mg/dL 70-110 H TESTED AT [facility] 67 ([facility]) (test code = MIKY [place] 1538) [address] POCT-GLUCOSE [id number] 03:55:00 Test Item Value Reference Range Interpretation Comments POC-GLUCOSE METER 83 mg/dL 70-110 TESTED AT [place] [address] ([facility]) (test code = [place] [address] 1538) CBC W/PLT COUNT & AUTO [id number] 02:01:00 Test Item Value Reference Range Interpretation [...] code = 2801) LACTIC ACID, VENOUS, WHOLE [id number] 22:35:00 Test Item Value Reference Range Interpretation Comments LACTATE BLOOD VENOUS 1.2 mmol/L 0.5-2.2 Specime n slightly (2) (BEAKER) (test hemolyzed code = 2872) Effective 06/10/2015: Units/Reference Range ChangeNew: 0.5-2.2 mmol/L Previous: 5-20 mg/dLHEMOGLOBIN AND [id number] 22:12:00 Test Item Value Reference Range Interpretation Comments HEMOGLOBIN (BEAKER) (test code = 7.7 GM/DL 13.7-17.5 L 410) HEMATOCRIT (BEAKER) (test code = 24.0 % 40.1-51.0 L 411) POCT-GLUCOSE [id number] 21:02:00 Test Item Value Reference Range Interpretation Comments POC-GLUCOSE METER 131 mg/dL 70-110 H TESTED AT [facility] 6720 (BEAKER) (test code = MIKY [place] 1538) [address] POCT-GLUCOSE [id number] 19:57:00 Test Item Value Reference Range Interpretation Comments POC-GLUCOSE METER 159 mg/dL 70-110 H TESTED AT [place] [address] ([facility]) (test code = MIKY Marte [facility] 1538) [address] POCT-GLUCOSE [id number] 18:42:00 Test Item Value Reference Range Interpretation Comments POC-GLUCOSE METER 186 mg/dL 70-110 H TESTED AT [place] [address] ([facility]) (test code = MIKY Marte [facility] 1538) [address] POCT-GLUCOSE [id number] 18:33:00 Test Item Value Reference Range Interpretation Comments POC-GLUCOSE METER 181 mg/dL 70-110 H TESTED AT [place] [address] ([facility]) (test code = MIKY Marte [facility] 1538) [address] POCT-GLUCOSE [id number] 18:33:00 Test Item Value Reference Range Interpretation Comments POC-GLUCOSE METER 226 mg/dL 70-110 H TESTED AT [place] [address] ([facility]) (test code = MIKY Marte [facility] 1538) [id number] POCT-GLUCOSE [id number] 18:33:00 Test Item Value Reference Range Interpretation Comments POC-GLUCOSE METER 257 mg/dL 70-110 H TESTED AT [place] [address] ([facility]) (test code = [facility] Estuardo [facility] 1538) [address] TROPONIN [id number] 18:15:00 Test Item Value Reference Range Interpretation Comments TROPONIN I ([facility]) (test code = 0.16 ng/mL 0.00-0.03 H [...] Range Interpretation Comments CREATINE KINASE TOTAL ([facility]) 454 U/L 29-200 H (test code = 380) CREATINE KINASE-MB ([facility]) (test 3.0 ng/mL 0.0-6.6 code = 750) CREATINE KINASE-MB INDEX ([facility]) 0.7 % (test code = 395) CK-MB Reference Range:<6.7 Normal6.7-10.0 Borderline>10.0 AbnormalBLOOD GAS, [id number] 17:57:00 Test Item Value Reference Range Interpretation [...] code = 1819) 40.0 % HEMOGLOBIN AND [id number] 17:47:00 Test Item Value Reference Range Interpretation Comments HEMOGLOBIN ([facility]) (test code = 7.7 GM/DL 13.7-17.5 L 410) HEMATOCRIT ([facility]) (test code = 23.3 % 40.1-51.0 L 411) EEG AWAKE/ASLEEP AND [id number] 17:06:00Reason for exam:->syncopal episode r/o seizure activityShould this be performed at the bedside?->Yes Date(s) of EE05/31/17ACC: [id number] Number: [id number] Location: Inpatient ICUStart time: 16:25Stop time: 16:46ICD-10: G93.40CPT Code: 45497 HISTORY: 82 years-old with GI bleed and [...] well as with other settingsof widespread, non-metabolic [employer] insults (such as trauma or aftermath of significant seizures). Jovanny Montanez M.D.Neurophysiology Fellow, PGY5 Rikki Zayas M.D.Clinical Neurophysiology/Epilepsy Attending RAD, CHEST, 1 VIEW, NON [id number] 16:55:00Reason for exam:->Post intubationShould this be performed [...] MDReport Verified Date/Time: 05/31/2017 16:55:11 Reading Location: [facility] B1 [id number] Consult Reading Room HEMOGLOBIN [id number] 15:51:00 Test Item Value Reference Range Interpretation Comments HEMOGLOBIN A1C (BEAKER) (test code = 6.1 % 4.3-6.1 368) POCT-GLUCOSE [id number] 15:03:00 Test Item Value Reference Range Interpretation Comments POC-GLUCOSE METER 150 mg/dL 70-110 H TESTED AT [facility] 6720 (BEAKER) (test code = [place] 1538) [address] BASIC METABOLIC [id number] 13:41:00 Test Item Value Reference Range Interpretation [...] S NOT APPLICABLE FOR DIALYSIS PATIEN TS. [id number] 13:34:00 Test Item Value Reference Range Interpretation Comments PHOSPHORUS (BEAKER) (test code = 4.0 mg/dL 2.3-4.7 604) [id number] 13:34:00 Test Item Value Reference Range Interpretation Comments MAGNESIUM (BEAKER) (test code = 2.2 mg/dL 1.6-2.6 627) LACTIC ACID, VENOUS, WHOLE [id number] 13:20:00 Test Item Value Reference Range Interpretation Comments LACTATE BLOOD VENOUS (2) (BEAKER) 1.8 mmol/L 0.5-2.2 (test code = 2872) Effective 06/10/2015: Units/Reference Range ChangeNew: 0.5-2.2 mmol/L Previous: 5-20 mg/dLCBC W/PLT COUNT & AUTO [id number] 13:08:00 Test Item Value Reference Range Interpretation [...] IMMATURE GRANULOCYTES-RELATIVE 2 % 0-1 H PERCENT ([facility]) (test code = 2801) HEMOGLOBIN AND [id number] 13:00:00 Test Item Value Reference Range Interpretation Comments HEMOGLOBIN ([facility]) (test code = 8.3 GM/DL 13.7-17.5 L 410) HEMATOCRIT ([facility]) (test code = 25.3 % 40.1-51.0 L 411) POCT-GLUCOSE [id number] 12:13:00 Test Item Value Reference Range Interpretation Comments POC-GLUCOSE METER 119 mg/dL 70-110 H TESTED AT [place] [address] ([facility]) (test code = [place] 1538) [id number] POCT-GLUCOSE [id number] 12:13:00 Test Item Value Reference Range Interpretation Comments POC-GLUCOSE METER 150 mg/dL 70-110 H TESTED AT [place] [address] ([facility]) (test code = [place] 1538) [address] POCT-GLUCOSE [id number] 12:13:00 Test Item Value Reference Range Interpretation Comments POC-GLUCOSE METER 211 mg/dL 70-110 H TESTED AT [place] [address] ([facility]) (test code = [place] 1538) [address] POCT-GLUCOSE [id number] 12:13:00 Test Item Value Reference Range Interpretation Comments POC-GLUCOSE METER 272 mg/dL 70-110 H TESTED AT [place] [address] ([facility]) (test code = [place] 1538) [id number] B-TYPE NATRIURETIC FACTOR (BNP)2017-05-31 08:12:00 Test Item Value Reference Range Interpretation Comments B-TYPE NATRIURETIC PEPTIDE ([facility]) 558 pg/mL 0-100 H (test code = 700) CREATINE KINASE (CK), TOTAL AND [id number] 07:37:00 Test Item Value Reference Range Interpretation Comments CREATINE KINASE TOTAL ([facility]) 560 U/L 29-200 H (test code = 380) CREATINE KINASE-MB ([facility]) (test 4.9 ng/mL 0.0-6.6 code = 750) CREATINE KINASE-MB INDEX ([facility]) 0.9 % (test code = 395) CK-MB Reference Range:<6.7 Normal6.7-10.0 Borderline>10.0 AbnormalTROPONIN [id number] 07:37:00 Test Item Value Reference Range Interpretation [...] failure, acidosis, acute neurological disease, and persistent tachyarrhythmia.[id number] 07:26:00 Test Item Value Reference Range Interpretation Comments [facility]OL [facility] (test code = 400) < mg/dL <=10 POCT-GLUCOSE [id number] 06:52:00 Test Item Value Reference Range Interpretation Comments POC-GLUCOSE METER 284 mg/dL 70-110 H TESTED AT [place] [address] ([facility]) (test code = [facility] 1538) [id number] POCT-GLUCOSE [id number] 05:47:00 Test Item Value Reference Range Interpretation Comments POC-GLUCOSE METER 406 mg/dL 70-110 HH TESTED AT [place] [address] ([facility]) (test code = [facility] 1538) [id number] POCT-GLUCOSE [id number] 05:47:00 Test Item Value Reference Range Interpretation Comments POC-GLUCOSE METER 405 mg/dL 70-110 HH TESTED AT [place] [address] ([facility]) (test code = [facility] 1538) [address] POCT-GLUCOSE [id number] 05:47:00 Test Item Value Reference Range Interpretation Comments POC-GLUCOSE METER 429 mg/dL 70-110 HH TESTED AT [place] [address] ([facility]) (test code = [facility] 1538) [address] BASIC METABOLIC [id number] 04:02:00 Test Item Value Reference Range Interpretation [...] S NOT APPLICABLE FOR DIALYSIS PATIEN TS. [id number] 03:59:00 Test Item Value Reference Range Interpretation Comments PHOSPHORUS (BEAKER) (test code = 4.4 mg/dL 2.3-4.7 604) [id number] 03:59:00 Test Item Value Reference Range Interpretation Comments MAGNESIUM (BEAKER) (test code = 2.2 mg/dL 1.6-2.6 627) VANCOMYCIN LEVEL, [id number] 03:49:00 Test Item Value Reference Range Interpretation Comments VANCOMYCIN RANDOM (BEAKER) (test 19.0 ug/mL code = 523) Reference Range: No NormalsCBC W/PLT COUNT & AUTO [id number] 03:41:00 Test Item Value Reference Range Interpretation [...] code = 2801) LACTIC ACID, VENOUS, WHOLE [id number] 03:29:00 Test Item Value Reference Range Interpretation Comments LACTATE BLOOD VENOUS (2) (BEAKER) 3.1 mmol/L 0.5-2.2 H (test code = 2872) Effective 06/10/2015: Units/Reference Range ChangeNew: 0.5-2.2 mmol/L Previous: 5-20 mg/dLCALCIUM, [id number] 03:17:00 Test Item Value Reference Range Interpretation Comments CALCIUM IONIZED (BEAKER) (test 1.14 mmol/L 1.12-1.27 code = 698) PH, BLOOD (BEAKER) (test code = 7.31 1810) BASIC METABOLIC [id number] 23:39:00 Test Item Value Reference Range Interpretation [...] S NOT APPLICABLE FOR DIALYSIS PATIEN TS. [id number] 23:16:00 Test Item Value Reference Range Interpretation Comments AMMONIA (BEAKER) (test code = 348) 32 mol/L 18-72 HEPATIC FUNCTION [id number] 23:13:00 Test Item Value Reference Range Interpretation [...] 6-55 347) CBC W/PLT COUNT & AUTO [id number] 22:55:00 Test Item Value Reference Range Interpretation [...] 0-0 H (BEAKER) (test code = 413) [id number] 22:52:00 Test Item Value Reference Range Interpretation Comments MAGNESIUM (BEAKER) (test code = 2.4 mg/dL 1.6-2.6 627) [id number] 22:52:00 Test Item Value Reference Range Interpretation Comments PHOSPHORUS (BEAKER) (test code = 4.5 mg/dL 2.3-4.7 604) [id number] 22:49:00 Test Item Value Reference Range Interpretation Comments FIBRINOGEN LEVEL (BEAKER) (test 390 mg/dl 225-434 code = 658) RAD, ABDOMEN/KUB, 1 VIEW [id number] 22:46:00Reason for exam:->abdominal painShould this be performed [...] Sánchez Verified Date/Time: 05/30/2017 22:46:58 Reading Location: [address] Consult Reading Room , CHEST, 1 VIEW, NON [id number] 22:45:00Post-intubationReason for exam:- >tachypneaShould this be performed [...] Verified Date/Time: 0 05/30/2017 22:45:22 Reading Location: [address] Consult Reading Room PROTHROMBIN TIME/[id number] 22:44:00 Test Item Value Reference Range Interpretation Comments PROTIME (BEAKER) (test code = 22.6 seconds 11.7-14.7 H 759) INR (BEAKER) (test code = 370) 2.0 <=5.9 RECOMMENDED COUMADIN/WARFARIN INR THERAPY RANGESSTANDARD DOSE: 2.0 - 3.0 Includes: PROPHYLAXIS forvenous thrombosis, systemic embolization; TREATMENT for venous thrombosis and/or pulmonary embolus.HIGH RISK: Target INR is 2.5-3.5 for patients with mechanical heart valves.URINALYSIS W/ [id number] 22:34:00 Test Item Value Reference Range Interpretation [...] 1574) SOURCE(BEAKER) (test code = Urine, [place] 2696) BLOOD GAS, [id number] 22:25:00 Test Item Value Reference Range Interpretation [...] 36.6 C (test code = 1818) CALCIUM, [id number] 22:23:00 Test Item Value Reference Range Interpretation Comments CALCIUM IONIZED (BEAKER) (test 1.12 mmol/L 1.12-1.27 code = 698) PH, BLOOD (BEAKER) (test code = 7.36 1610)
[2020-04-04 12:28] LABS: Protime INR 1.36
[2020-04-04 12:31] LABS: Absolute Lymphocytes (CBC) 1.2 K/uL (0.7-4.9); Basophils % 1.1 % (0-1.3); Hematocrit 34.2 % (39.6-49.0); Lymphocytes % 20.4 % (15.3-44.8); MPV 9.3 fL (7.6-11.3); RBC Red Blood Cell Count 3.66 M/uL (4.33-5.43)
[2020-04-04 12:46] LABS: Albumin 2.8 g/dL (3.4-5.0); Bilirubin Direct 0.5 mg/dL (0-0.2); Magnesium 1.8 mg/dL (1.8-2.4); Potassium 4.2 mmol/L (3.5-5.1); Protein, Total 6.7 g/dL (6.4-8.2); Troponin (Emerg Dept Use Only) 0.02 ng/mL (0.0-0.045)
--- NOTE | 2020-04-04 13:10 | RAD REPORT ---
EXAM DESCRIPTION: RAD - Chest Single View - 04/04/2020 12:33 pm CLINICAL HISTORY: SOB Chest pain. COMPARISON: Chest Single View dated 03/20/2020; Chest Single View dated 03/19/2020; Chest Single View dated 03/18/2020; Chest Single View dated 03/18/2020 FINDINGS: Portable technique limits examination quality. Mild interstitial pulmonary edema. The heart is moderately enlarged in size with a dual lead pacer de vice. Sternotomy wires present.Right-sided PICC line is stable. IMPRESSION: Mild CHF.
[2020-04-04 13:39] LABS: SARS-COV-2 RT PCR NEGATIVE (NEGATIVE)
[2020-04-04 13:56] LABS: Anisocytosis 3+; Blood Morphology Comment NOTED (NOT SEEN); Platelet Estimate ADEQ; Polychromasia SLIGHT
[2020-04-04] MEDS ORDERED: FUROSEMIDE 40 MG/4 ML VIAL ONE (14:02)
--- NOTE | 2020-04-04 15:26 | EDPHYS ---
Physician Documentation [facility] Name: Javan Burrows Age: 85 yrs Sex: Male : 1935 Arrival Date: 04/04/2020 Time: 11:22 Bed 18 Private MD: ED Physician Jamie Reid HPI: 04/04 12:06 This 85 yrs old Male presents to ER via EMS with complaints of Breathing pm1 Difficulty. 12:06 The patient has shortness of breath at rest. Onset: The symptoms/episode began/occurred pm1 1.5 week(s) ago. Duration: The symptoms are continuous, and are steadily getting worse. The patient's shortness of breath is aggravated by nothing, is alleviated by nothing. Associated signs and symptoms: Pertinent positives: productive cough, Pertinent negatives: chest pain, fever, nausea, vomiting. Severity of symptoms: in the emergency department the symptoms are worse Pain is currently a 0 / 10. The patient has been recently been admitted at [facility], for apparently unrelated complaints, Was admitted 3 weeks ago for sepsis, colitis, bacteremia and was discharged home with PICC line and antibiotics. Patient's last dose of antibiotics today. Patient presenting today with worsening shortness of breath that he reports started after getting home from the hospital. Patient reports improvement with supplemental oxygen by NH. Does not use O2 at home. Historical: - Allergies: 11:50 NKA; dm14 - Home Meds: 11:50 allopurinol 300 mg Oral tab 1 tab once daily [Active]; aspirin 81 mg Oral chew 1 tab dm14 once daily [Active]; atorvastatin 40 mg Oral tab 1 tab once daily [Active]; carvedilol 3.125 mg Oral tab 1 tab 2 times per day [Active]; furosemide 40 mg Oral tab 1 tab 2 times per day [Active]; glimepiride 4 mg Oral tab 1 tab once daily [Active]; potassium chloride 20 mEq Oral TbER 1 tab once daily [Active]; tamsulosin 0.4 mg Oral cp24 1 cap once daily [Active]; Tresiba FlexTouch U-100 subcutaneous [Active]; - PMHx: 11:50 Gout; a-fib; Diabetes - NIDDM; Hypertension; Myocardial infarction; Pacemaker; dm14 - Immunization history:: Adult Immunizations up to date. - Social history:: Smoking status: Patient reports the use of cigarette tobacco products, Patient denies any tobacco usage or history of. ROS: 12:06 Constitutional: Negative for fever, chills, and weight loss, Neck: Negative for injury, pm1 pain, and swelling, Cardiovascular: Negative for chest pain, palpitations, and edema. 12:06 Abdomen/GI: Negative for abdominal pain, nausea, vomiting, diarrhea, and constipation, Back: Negative for injury and pain, MS/Extremity: Negative for injury and deformity, Skin: Negative for injury, rash, and discoloration, Neuro: Negative for headache, weakness, numbness, tingling, and seizure. 12:06 Respiratory: Positive for cough, "sounds productive", shortness of breath. Exam: 12:06 Constitutional: This is a well developed, well nourished patient who is awake, alert, pm1 and in no acute distress. Head/Face: Normocephalic, atraumatic. 12:06 Abdomen/GI: Soft, non-tender, with normal bowel sounds. No distension or tympany. No guarding or rebound. No evidence of tenderness throughout. Back: No spinal tenderness. No costovertebral tenderness. Full range of motion. Skin: Warm, dry with normal turgor. Normal color with no rashes, no lesions, and no evidence of cellulitis. 12:06 Cardiovascular: Rate: normal, Rhythm: irregular, Pulses: no pulse deficits are appreciated, Edema: pedal edema, that is mild, left lower extremity. 12:06 Respiratory: the patient does not display signs of respiratory distress, Breath sounds: rales, are located in both bases, decreased breath sounds. 12:06 Musculoskeletal/extremity: Extremities: grossly normal except: Right AKA. 12:06 Neuro: Exam negative for acute changes, Orientation: is normal, Mentation: is normal, Motor: is normal, moves all fours. Vital Signs: 11:37 BP 177 / 79; Pulse 81; Resp 17; Temp 97.9; Pulse Ox 99% ; dm14 17:15 BP 177 / 85; Pulse 96; Resp 20; Pulse Ox 90% ; dm14 MDM: 11:28 Patient medically screened. [facility] 15:06 Data reviewed: vital signs. pm1 15:21 ED course: Patient reports shortness of breath has resolved and he feels ready and pm1 wants to go home. Educated on the need to take additional lasix for 2 more days and to follow up with PCP. Patient educated on return precautions . 15:21 ED course: Patient does not use home oxygen. Will take supplemental oxygen of the pm1 patient to see can be discharged home as he would like. 15:51 ED course: Patient's supplemental oxygen removed and he started complaining of pm1 shortness of breath and his O2 saturation dropped to 89-90%. Patient would like to stay in the hospital instead of going home. Patient needs admission to the hospital for supplemental oxygen with increased diuresis. 16:07 Physician consultation: Kings Banks was called at 16:07, was contacted at 16:07, pm1 regarding admission, patient's condition, and will see patient in ED. 04/04 11:38 Order name: Basic Metabolic Panel; Complete Time: 13:02 pm1 04/04 11:38 Order name: CBC with Diff; Complete Time: 14:03 pm1 04/04 11:38 Order name: LFT's; Complete Time: 13:02 pm1 04/04 11:38 Order name: Magnesium; Complete Time: 13:02 pm04/04 11:38 Order name: NT PRO-BNP; Complete Time: 13:02 pm1 04/04 11:38 Order name: PT-INR; Complete Time: 12:43 pm1 04/04 11:38 Order name: Troponin (emerg Dept Use Only); Complete Time: 13:02 pm1 04/04 11:38 Order name: XRAY Chest (1 view); Complete Time: 13:11 pm04/04 11:49 Order name: Strep; Complete Time: 13:09 pm04/04 13:39 Order name: COVID-19/FLU A+B; Complete Time: 14:03 EDMS 04/04 13:42 Order name: Manual Differential; Complete Time: 14:03 EDMS 04/04 11:38 Order name: EKG; Complete Time: 11:39 pm1 04/04 11:38 Order name: Cardiac monitoring; Complete Time: 11:57 pm04/04 11:38 Order name: EKG - Nurse/Tech; Complete Time: 11:57 pm04/04 11:38 Order name: Labs collected and sent; Complete Time: 12:14 pm04/04 11:38 Order name: O2 Per Protocol; Complete Time: 12:14 pm1 04/04 11:38 Order name: O2 Sat Monitoring; Complete Time: 12:14 pm1 Administered Medications: 13:45 Drug: Lasix 40 mg Route: IVP; Site: PICC; dm14 14:14 Follow up: Response: No adverse reaction dm14 15:57 Follow up: Response: No adverse reaction dm14 Disposition: 04/04/20 15:54 Hospitalization ordered by Kings Banks for Observation. Preliminary diagnosis are Congestive heart failure, Volume overload, Hypoxia. - Bed requested for Telemetry/MedSurg (observation). - Status is Observation. ss - Condition is Stable. - Problem is new. - Symptoms have improved. Addendum: 04/06/2020 06:11 Co-signature as Attending Physician, Jamie Reid MD I agree with the assessment and c mahajan plan of care. Signatures: Dispatcher [employer] EDNY Valerie Cuadra RN RN Jamie Reid MD MD cha Smirch, Shelby, RN RN ss Marinas, Patrick, MIGUEL [employer]EL OIL FIELD OPERATOR pm1 Ping Adams, RN RN dm14 Corrections: (The following items were deleted from the chart) 04/04 12:57 11:49 CORONAVIRUS+MR.LAB.BRZ ordered. [facility] EDNY 12:58 11:49 Influenza Screen (A \\T\\ B)+BA.LAB.BRZ ordered. [facility] EDNY 15:23 15:21 ED course: Patient reports shortness of breath has resolved and he feels ready to pm1 go home. Educated on the need to take additional lasix for 2 more days and to follow up with PCP. Patient educated on return precautions . pm1 15:51 15:25 04/04/2020 15:25 Discharged to Home. Impression: Mild congestive heart failure; pm1 Shortness of breath. Condition is Stable. Forms are Medication Reconciliation Form, Thank You Letter, Antibiotic Education, Prescription Opioid Use. Follow up: Emergency Department; When: As needed; Reason: Recheck today's complaints, Continuance of care, Re-evaluation by your physician. Follow up: Private Physician; When: 2 - 3 days; Reason: Recheck today's complaints, Continuance of care, Re-evaluation by your physician. Problem is new. Symptoms have improved. pm1 17:23 15:54 Hospitalization Ordered by Kings Banks for Observation. Preliminary diagnosis dw is Congestive heart failure; Volume overload; Hypoxia. Bed requested for Telemetry/MedSurg (observation). Status is Observation. Condition is Stable. Problem is new. Symptoms have improved. pm1 18:24 17:23 04/04/2020 15:54 Hospitalization Ordered by Kings Banks for Observation. ss Preliminary diagnosis is Congestive heart failure; Volume overload; Hypoxia. Bed requested for Telemetry/MedSurg (observation). Status is Observation. Condition is Stable. Problem is new. Symptoms have improved. dw
--- NOTE | 2020-04-04 15:26 | ER ---
Nurse's Notes [facility] Name: Javan Burrows Age: 85 yrs Sex: Male : 1935 Arrival Date: 04/04/2020 Time: 11:22 Bed 18 Private MD: Diagnosis: Congestive heart failure;Volume overload;Hypoxia Presentation: 04/04 11:37 Chief complaint: EMS states: EMS reports patient was in hospital with sepsis 2 weeks dm14 ago. Pt is c/o SOB and has a very wet cough. Has difficulty speaking due to presence of phlegm. Pt states he hasn't felt well since in hospital. PT has PICC line for antibiotics and son has been administering these at home. PT has had right lower leg amputated due to complications of diabetes. EMS reports a BGL of 190. Coronavirus screen: Client denies travel out of the [place] in the last 14 days. Ebola Screen: No symptoms or risks identified at this time. Initial Sepsis Screen: Does the patient meet any 2 criteria? No. Patient's initial sepsis screen is negative. Does the patient have a suspected source of infection? No. Patient's initial sepsis screen is negative. Risk Assessment: Do you want to hurt yourself or someone else? Patient reports no desire to harm self or others. Onset of symptoms is unknown. 11:37 Method Of Arrival: EMS dm14 11:37 Acuity: GOLDIE 3 dm14 Triage Assessment: 11:50 General: Appears in no apparent distress. comfortable, Behavior is calm, cooperative, dm14 appropriate for age. Pain: Denies pain. Respiratory: Reports shortness of breath at rest cough that is productive. Historical: - Allergies: 11:50 NKA; dm14 - Home Meds: 11:50 allopurinol 300 mg Oral tab 1 tab once daily [Active]; aspirin 81 mg Oral chew 1 tab dm14 once daily [Active]; atorvastatin 40 mg Oral tab 1 tab once daily [Active]; carvedilol 3.125 mg Oral tab 1 tab 2 times per day [Active]; furosemide 40 mg Oral tab 1 tab 2 times per day [Active]; glimepiride 4 mg Oral tab 1 tab once daily [Active]; potassium chloride 20 mEq Oral TbER 1 tab once daily [Active]; tamsulosin 0.4 mg Oral cp24 1 cap once daily [Active]; Tresiba FlexTouch U-100 subcutaneous [Active]; - PMHx: 11:50 Gout; a-fib; Diabetes - NIDDM; Hypertension; Myocardial infarction; Pacemaker; dm14 - Immunization history:: Adult Immunizations up to date. - Social history:: Smoking status: Patient reports the use of cigarette tobacco products, Patient denies any tobacco usage or history of. Screenin:54 Abuse screen: Denies threats or abuse. Denies injuries from another. Nutritional dm14 screening: No deficits noted. Tuberculosis screening: No symptoms or risk factors identified. Fall Risk None identified. Assessment: 11:54 General:. Cardiovascular: No deficits noted. Respiratory: Reports shortness of breath dm14 SOB when talking cough that is productive. 14:00 Reassessment: No changes from previously documented assessment. dm14 16:00 Reassessment: No change in condition. Pt has not voided as of yet. dm14 17:44 Reassessment: Pt voided 275mls of cooper colored urine. Awaiting admission to the 4th dm14 floor. 18:19 Cardiovascular: Rhythm is regular. Respiratory: Airway is patent. dm14 18:23 Respiratory:. dm14 18:23 Respiratory: assessed by Tyler BRITO. dm14 Vital Signs: 11:37 BP 177 / 79; Pulse 81; Resp 17; Temp 97.9; Pulse Ox 99% ; dm14 17:15 BP 177 / 85; Pulse 96; Resp 20; Pulse Ox 90% ; dm14 ED Course: 11:22 Patient arrived in ED. ss 11:24 Prasanna Villegas NP is PHCP. pm1 11:24 Jamie Reid MD is Attending Physician. pm1 11:37 Ping Adams, AGUSTINA is Primary Nurse. dm14 11:44 Triage completed. dm14 11:50 Arm band placed on right wrist. dm14 11:54 Patient has correct armband on for positive identification. Bed in low position. Call dm14 light in reach. Side rails up X2. 11:54 Accessed PICC line. dm14 12:33 XRAY Chest (1 view) In Process Unspecified. EDMS 15:53 Kings Banks is Hospitalizing Provider. pm1 18:19 No provider procedures requiring assistance completed. Patient transferred, IV remains dm14 in place. 18:19 Accessed PICC line. Patient transferred, IV remains in place. dm14 Administered Medications: 13:45 Drug: Lasix 40 mg Route: IVP; Site: PICC; dm14 14:14 Follow up: Response: No adverse reaction dm14 15:57 Follow up: Response: No adverse reaction dm14 Outcome: 15:25 Discharge ordered by MD. pm1 15:54 Decision to Hospitalize by Provider. pm1 18:19 Admitted to Med/surg accompanied by tech, via stretcher, Report called to report given dm14 to Ray. BERRIOS 18:24 Patient left the ED. ss 18:24 Condition: stable dm14 Signatures: Dispatcher [employer] EDMS Sridevi Fine RN RN ss Prasanna Villegas, INSTRUCTIONAL SUPERVISOR INSTRUCTIONAL SUPERVISOR pm1 Ping Adams RN RN dm14
--- NOTE | 2020-04-04 17:35 | P.HP ---
Certification for Inpatient Patient admitted to: Observation With expected LOS: <2 Midnights Practitioner: I am a practitioner with admitting privileges, knowledge of patient current condition, hospital course, and medical plan of care. Services: Services provided to patient in accordance with Admission requirements found in Title 42 Section 412.3 of the Code of Federal Regulations Patient History Date of Service: 04/04/20 Reason for admission: Shortness of breath History of Present Illness: 85-year-old man with a history of chronic systolic heart failure, DM type 2 and chronic atrial fibrillation presented to the emergency department with a complaint of progressive shortness of breath. Patient denied any chest pain. He endorsed orthopnea. He denied any palpitation. He was recently hospitalized and treated for MRSA bacteremi. His EKG in the ED showed atrial fibrillation with some aberrant conducted complexes. Chest x-ray demonstrated mild congestive heart failure. Initial troponin negative. Patient reports improvement in her symptoms after a dose of Lasix in the ED was noted to be hypoxic with oxygen saturation of 88% on room air at rest. Patient is hosp italized for further management of CHF exacerbation. Allergies No Known Drug Allergies Allergy (Verified 06/09/16 19:08) Unknown No Known Al Allergy (Uncoded 04/23/16 03:12) Unknown No Known Allergies Allergy (Uncoded 05/30/17 20:27) Unknown Home Medications: Aspirin [Aspirin EC 81 MG] 81 mg PO DAILY 05/04/18 Atorvastatin Calcium [Lipitor] 40 mg PO BEDTIME 05/04/18 Furosemide [Lasix*] 40 mg PO BIDL 05/04/18 Glimepiride [Amaryl] 4 mg PO DAILY 05/04/18 Potassium Chloride [Klor-Con M20] 20 meq PO DAILY 05/04/18 Tamsulosin [Flomax*] 0.4 mg PO DAILY 05/04/18 allopurinoL [Zyloprim*] 300 mg PO DAILY 05/04/18 carvediloL [Coreg*] 3.125 mg pe PO BID 6AM 6PM 05/04/18 Docusate [Colace Cap*] 100 mg PO BID #60 cap 03/21/20 Ensure High Protein 237 ml PO BID #60 can 03/21/20 Vikram [Vikram*] 1 pkt PO BID #60 powd.pack 03/21/20 Lactulose [Cephulac*] 30 ml PO DAILY PRN #250 ml 03/21/20 Magnesium Chloride [Slow-Mag] 64 mg PO DAILY 30 Days #30 tab 03/21/20 Pantoprazole [Protonix Tab*] 40 mg PO BIDAC #60 tab 03/21/20 Spironolactone [Aldactone*] 25 mg PO DAILY #30 tab 03/21/20 Temazepam [Restoril*] 15 mg PO BEDTIME PRN PRN #15 cap 03/21/20 - Past Medical/Surgical History Diabetic: Yes -: Obesity -: DM Type 2 -: Gout -: HPN -: Afib -: CABG -: HI -: Pacemaker- Defib -: AKA 1994 -: Left knee replacement 2x -: Cholecystectomy -: Bilateral Fempop -: Reverse Vasectomy - Family History Father Notes: cerebral hemorrhage- Mother Notes: heart attack- - Social History Alcohol use: Yes CD- Drugs: No Caffeine use: Yes Review of Systems Other: Except as documented, all other systems reviewed and negative. Physical Examination - Physical Exam General: Alert, In no apparent distress, Oriented x3 HEENT: Mucous membr. moist/pink, Sclerae nonicteric Neck: Supple, JVD not distended Respiratory: Clear to auscultation bilaterally, Normal air movement Cardiovascular: Normal S1 S2, Edema (Mild left lower extremity edema), Irregular heart rate/rhythm Gastrointestinal: Normal bowel sounds, Soft and benign, Distended, Ascites Musculoskeletal: Other (Right AKA) Integumentary: No rashes Neurological: Normal strength at 5/5 x4 extr, Cranial nerves 3-12 intact - Studies Laboratory Data (last 24 hrs) 04/04/20 12:10: PT 15.7 H, INR 1.36 04/04/20 12:10: WBC 5.90, Hgb 10.7 L, Hct 34.2 L, Plt Count 152 04/04/20 12:10: Sodium 141, Potassium 4.2, BUN 42 H, Creatinine 1.38 H, Glucose 201 H, Magnesium 1.8, Total Bilirubin 1.0, AST 22, ALT 19, Alkaline Phosphatase 118 H Microbiology Data (last 24 hrs): 04/04/20 12:00 Throat Group A Streptococcus Rapid Screen - Final Assessment and Plan - Problems (Diagnosis) (1) Acute on chronic systolic (congestive) heart failure Current Visit: Yes Status: Acute (2) Chronic kidney disease, stage 3 Current Visit: Yes Status: Acute (3) Chronic atrial fibrillation Current Visit: Yes Status: Acute (4) Diabetes Onset Date: 06/10/16 Current Visit: No Status: Chronic Qualifiers: Diabetes mellitus type: type 2 Diabetes mellitus security chief museum insulin use: without alf use Diabetes mellitus complication status: with unspecified complications - Plan Place under observation. Start IV Lasix. Continue Aldactone. Monitor intake and output. Restrict fluid to 1500 mL per day. Monitor renal function. Continue aspirin. Supplemental oxygen. Insulin sliding scale for glucose management. - Advance Directives Does patient have a Living Will: Yes Does patient have a Durable POA for Healthcare: No
[2020-04-04] MEDS ORDERED: ACETAMINOPHEN 500 MG TAB PO PRN (18:25)
[2020-04-04] MEDS ORDERED: GLUCAGON 1 MG/VIAL IM PRN (18:25)
[2020-04-04] MEDS ORDERED: D50W 25 GM/50 ML SYRINGE IV PRN (18:25)
[2020-04-04] MEDS: INSULIN -REGULAR HUMAN 50 UNIT/0.5 ML ML SQ SCH (20:20)
[2020-04-04] MEDS ORDERED: MAGNESIUM SULFATE 1 gm IVPB 1 GM/100 ML BAG IV ONE (21:00)
[2020-04-04 21:16] VITALS: BMI 28.7
[2020-04-05 03:59] LABS: Absolute Lymphocytes (CBC) 1.4 K/uL (0.7-4.9); Hematocrit 34.2 % (39.6-49.0); Lymphocytes % 23.6 % (15.3-44.8); MPV 8.8 fL (7.6-11.3); RBC Red Blood Cell Count 3.72 M/uL (4.33-5.43)
[2020-04-05 04:16] LABS: Magnesium 1.9 mg/dL (1.8-2.4); Phosphorus 3.5 mg/dL (2.5-4.9); Potassium 3.8 mmol/L (3.5-5.1)
[2020-04-05] MEDS ORDERED: POTASSIUM CL SA 10 MEQ TAB PO ONE ×2 (04:50→06:00)
[2020-04-05] MEDS: INSULIN -REGULAR HUMAN 50 UNIT/0.5 ML ML SQ SCH ×4 (07:30→20:15)
[2020-04-05] MEDS: FUROSEMIDE 40 MG/4 ML VIAL IV SCH ×2 (08:05→16:39)
[2020-04-05] MEDS: ENOXAPARIN 40 MG/0.4 ML SQ SCH (08:05)
[2020-04-05] MEDS: SPIRONOLACTONE 25 MG TABLET PO SCH (08:06)
[2020-04-05] MEDS ORDERED: D50W 25 GM/50 ML VIAL IV PRN (11:00)
--- NOTE | 2020-04-05 13:13 | P.DS ---
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 Patient denied any chest pain. He endorsed orthopnea. He denied any palpitation. He was recently hospitalized and treated for MRSA bacteremi. His EKG in the ED showed atrial fibrillation with some aberrant conducted complexes. Chest x-ray demonstrated mild congestive heart failure. Initial troponin negative. Patient reports improvement in her symptoms after a dose of Lasix in the ED was noted to be hypoxic with oxygen saturation of 88% on room air at rest. Patient was hospitalized for further management of CHF exacerbation. Hospital Course: Patient placed under observation on the medical floor and treated with IV Lasix. His renal function was stable on the IV Lasix. Patient tolerated room air with good oxygen saturation during the hospital stay. Today patient denies shortness of breath. His symptoms resolved. Vital signs stable. Patient deemed clinically stable for discharge. Oral Lasix is resumed on discharge. Vital Signs/Physical Exam: Temp Pulse Resp BP Pulse Ox 96.7 F L 89 20 160/79 H 89 L 04/05/20 11:55 04/05/20 11:55 04/05/20 11:55 04/05/20 11:55 04/05/20 11:55 General: Alert, In no apparent distress, Oriented x3 Neck: JVD not distended Respiratory: Clear to auscultation bilaterally, Normal air movement Cardiovascular: Edema (1+ left lower extremity edema.), Irregular heart rate/rhythm Gastrointestinal: Soft and benign, Non-distended, No tenderness Musculoskeletal: Other (Right AKA) Neurological: Other (No focal motor deficit.) Laboratory Data at Discharge: WBC 5.90 K/uL (4.3-10.9) 04/05/20 03:40 Hgb 11.0 g/dL (13.6-17.9) L 04/05/20 03:40 Hct 34.2 % (39.6-49.0) L 04/05/20 03:40 Plt Count 151 K/uL (152-406) L 04/05/20 03:40 PT 15.7 SECONDS (9.5-12.5) H 04/04/20 12:10 INR 1.36 04/04/20 12:10 Sodium 140 mmol/L (136-145) 04/05/20 03:40 Potassium 3.8 mmol/L (3.5-5.1) 04/05/20 03:40 BUN 47 mg/dL (7-18) H 04/05/20 03:40 Creatinine 1.39 mg/dL (0.55-1.3) H 04/05/20 03:40 Glucose 146 mg/dL (74-106) H 04/05/20 03:40 Phosphorus 3.5 mg/dL (2.5-4.9) 04/05/20 03:40 Magnesium 1.9 mg/dL (1.8-2.4) 04/05/20 03:40 Total Bilirubin 1.0 mg/dL (0.2-1.0) 04/04/20 12:10 AST 22 U/L (15-37) 04/04/20 12:10 ALT 19 U/L (12-78) 04/04/20 12:10 Alkaline Phosphatase 118 U/L (45-117) H 04/04/20 12:10 Home Medications: Aspirin [Aspirin EC 81 MG] 81 mg PO DAILY 05/04/18 Atorvastatin Calcium [Lipitor] 40 mg PO BEDTIME 05/04/18 Furosemide [Lasix*] 40 mg PO BIDL 05/04/18 Glimepiride [Amaryl] 4 mg PO DAILY 05/04/18 Potassium Chloride [Klor-Con M20] 20 meq PO DAILY 05/04/18 Tamsulosin [Flomax*] 0.4 mg PO DAILY 05/04/18 allopurinoL [Zyloprim*] 300 mg PO DAILY 05/04/18 carvediloL [Coreg*] 3.125 mg pe PO DAILY 05/04/18 Pantoprazole [Protonix Tab*] 40 mg PO BIDAC #60 tab 03/21/20 Spironolactone [Aldactone*] 25 mg PO DAILY #30 tab 03/21/20 Diet: ADA Activity: Fall precautions Followup: NONE,NONE [Primary Care Provider] - 1-2 Weeks
--- NOTE | 2020-04-05 15:19 | P.PN ---
Subjective Date of Service: 04/05/20 Chief Complaint: Shortness of breath Patient reports significant improvement in his symptoms. He currently denies shortness of breath. His coughing occasionally. Physical Examination - Vital Signs Temperature: 96.7 F Blood Pressure: 160/79 Pulse: 89 Respirations: 20 Pulse Ox (%): 97 - Physical Exam General: Alert, In no apparent distress, Oriented x3 HEENT: Mucous membr. moist/pink Neck: JVD not distended Respiratory: Clear to auscultation bilaterally, Normal air movement Cardiovascular: Regular rate/rhythm, Normal S1 S2, Edema (1+ left lower extremity.) Gastrointestinal: Normal bowel sounds, Soft and benign, Non-distended Musculoskeletal: Other (Right AKA.) Neurological: Normal strength at 5/5 x4 extr, Cranial nerves 3-12 intact - Studies Microbiology Data (last 24 hrs): 04/04/20 12:00 Throat Group A Streptococcus Rapid Screen - Final Assessment And Plan - Current Problems (Diagnosis) (1) Acute on chronic systolic (congestive) heart failure Current Visit: Yes Status: Acute (2) Chronic kidney disease, stage 3 Current Visit: Yes Status: Acute (3) Chronic atrial fibrillation Current Visit: Yes Status: Acute (4) Diabetes Onset Date: 06/10/16 Current Visit: No Status: Chronic Qualifiers: Diabetes mellitus type: type 2 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 Continue Aldactone. Monitor intake and output. Restrict fluid to 1500 mL per day. Renal function is stable on Lasix therapy. Continue aspirin. Weaned off oxygen. Insulin sliding scale for glucose management.
[2020-04-06 05:18] LABS: Absolute Lymphocytes (CBC) 1.4 K/uL (0.7-4.9); Basophils % 1.2 % (0-1.3); Hematocrit 32.8 % (39.6-49.0); Lymphocytes % 25.4 % (15.3-44.8); MPV 8.7 fL (7.6-11.3); RBC Red Blood Cell Count 3.54 M/uL (4.33-5.43)
[2020-04-06 05:40] LABS: Magnesium 1.9 mg/dL (1.8-2.4); Potassium 3.8 mmol/L (3.5-5.1)
[2020-04-06] MEDS: INSULIN -REGULAR HUMAN 50 UNIT/0.5 ML ML SQ SCH ×4 (07:30→20:41)
[2020-04-06] MEDS: ENOXAPARIN 40 MG/0.4 ML SQ SCH (08:40)
[2020-04-06] MEDS: SPIRONOLACTONE 25 MG TABLET PO SCH (08:40)
[2020-04-06] MEDS: FUROSEMIDE 40 MG/4 ML VIAL IV SCH ×3 (08:42→16:40)
[2020-04-06] MEDS ORDERED: POTASSIUM CL SA 10 MEQ TAB PO ONE (09:00)
[2020-04-06 09:07] LABS: Anisocytosis 3+; Blood Morphology Comment NOTED (NOT SEEN); Platelet Estimate DECR; Polychromasia SLIGHT; White Blood Cell Scan OK (OK)
--- NOTE | 2020-04-06 16:10 | P.PN ---
Subjective Date of Service: 04/06/20 Chief Complaint: Shortness of breath Subjective: Other (reports slight improvement in respirations, still with some "crackly noises" in his lungs, swelling slightly improved in legs) Review of Systems 10-point ROS is otherwise unremarkable Physical Examination - Vital Signs Temperature: 97.1 F Blood Pressure: 117/63 Pulse: 92 Respirations: 18 Pulse Ox (%): 93 - Studies Laboratory Data (last 24 hrs) 04/06/20 04:59: Sodium 141, Potassium 3.8, BUN 48 H, Creatinine 1.39 H, Glucose 105, Magnesium 1.9 04/06/20 04:59: WBC 5.70, Hgb 10.3 L, Hct 32.8 L, Plt Count 125 L Microbiology Data (last 24 hrs): 04/04/20 12:00 Throat Culture & Sensitivity - Final Assessment & Plan Physician Review Additional Text: Physical Exam General: Alert, In no apparent distress, Oriented x3 HEENT: Mucous membr. moist/pink Respiratory: b/l crackles at bases, diminished. nonlabored on RA Cardiovascular: Regular rate/rhythm, 1-2+ LLE edema to knee Gastrointestinal: Normal bowel sounds, Soft and benign, Non-distended Musculoskeletal: R AKA Neurological: generalized weakness, nonfocal Problem List: Acute on chronic systolic (congestive) heart failure Chronic kidney disease, stage 3 Chronic atrial fibrillation Diabetes mellitus type: type 2 continues with b/l crackles 1-2+ LLE edema, will increase IV lasix to TID, continue aldactone montior renal function, BP, and I/O's. fluid restricted to 1500ml / day renal function stable so far, low threshold for nephrology consult if worsens continue aspirin. on room air at rest sliding scale insulin restart home flomax, statin, coreg PT consulted, pt unable to sit up for me in bed VTE Prophylaxis: lovenox Code: full Dispo: discussed with patient and son - amenable to SNF rehab, likely will be medically cleared in ~24-48hrs environmental services project manager consulted pt with caregiver from ~8a-5p, and just got a mechanical lift for emergencies only. son states patient has become significantly debilitated over last month with 3 hospital admissions Time Spent Managing Pts Care (In Minutes): 35
[2020-04-06] MEDS: PANTOPRAZOLE 40MG TABLET PO SCH (16:40)
--- NOTE | 2020-04-06 17:14 | EKG ---
Test Date: 2020-04-04 Test Time: 11:58:31 Staff Psychiatrist: PRISCILA MEASUREMENT RESULTS: Intervals: Rate: 90 DE: QRSD: 102 QT: 342 QTc: 418 [place]: P: DE: QRS: -55 T: 215 INTERPRETIVE STATEMENTS: Atrial fibrillation with premature ventricular or aberrantly conducted complexes Left axis deviation Low voltage QRS Cannot rule out Anteroseptal infarct, age undetermined Abnormal ECG Compared to ECG 03/16/2020 07:30:06 Low QRS voltage now present Myocardial infarct finding still present Electronically Signed On 04-06-20 17:06:50 HOBBING MACHINE OPERATOR by Jose Guadalupe Cohen
[2020-04-06] MEDS ORDERED: ATORVASTATIN 40 MG TAB PO SCH (21:00)
[2020-04-07] MEDS: FUROSEMIDE 40 MG/4 ML VIAL IV SCH (00:47)
[2020-04-07 05:50] LABS: Absolute Lymphocytes (CBC) 1.8 K/uL (0.7-4.9); Hematocrit 33.1 % (39.6-49.0); Lymphocytes % 32.9 % (15.3-44.8); MPV 8.6 fL (7.6-11.3); RBC Red Blood Cell Count 3.58 M/uL (4.33-5.43)
[2020-04-07 06:08] LABS: Magnesium 1.9 mg/dL (1.8-2.4); Potassium 3.7 mmol/L (3.5-5.1)
[2020-04-07] MEDS: INSULIN -REGULAR HUMAN 50 UNIT/0.5 ML ML SQ SCH ×2 (07:30→11:27)
[2020-04-07] MEDS: ENOXAPARIN 40 MG/0.4 ML SQ SCH (08:02)
[2020-04-07] MEDS: PANTOPRAZOLE 40MG TABLET PO SCH (08:03)
[2020-04-07] MEDS: SPIRONOLACTONE 25 MG TABLET PO SCH (08:03)
[2020-04-07] MEDS ORDERED: POTASSIUM CL SA 10 MEQ TAB PO ONE (09:00)
[2020-04-07] MEDS ORDERED: TAMSULOSIN 0.4 MG SR CAP PO SCH (09:00)
[2020-04-07] MEDS ORDERED: carvediloL 3.125 MG TAB PO SCH (09:00)
[2020-04-07] MEDS ORDERED: allopurinoL 300 MG TAB PO SCH (09:00)
[2020-04-07 11:34] VITALS: BP 166/75; TEMP 97; O2SAT 95
[2020-04-07] MEDS ORDERED: FUROSEMIDE 40 MG TABLET PO SCH (17:00)
--- NOTE | 2020-04-07 17:34 | P.DS ---
Admission Date: 04/04/20 Discharge Date: 04/07/20 Disposition: TRANSFER TO GROUP HOME Discharge Condition: FAIR Reason for Admission: CHF exacerbation Procedures: CXR (04/04): Mild interstitial pulmonary edema. The heart is moderately enlarged in size with a dual lead pacer device. Sternotomy wires present.Right-sided PICC line is stable. Problem List: Acute on chronic systolic (congestive) heart failure Chronic kidney disease, stage 3 Chronic atrial fibrillation Diabetes mellitus type: type 2 , [id number] Brief History of Present Illness: 85-year-old man with a history of chronic systolic heart failure, DM type 2 and chronic atrial fibrillation presented to the emergency department with a complaint of progressive shortness of breath. Patient denied any chest pain. He endorsed orthopnea. He denied any palpitation. He was recently hospitalized and treated for MRSA bacteremi. His EKG in the ED showed atrial fibrillation with some aberrant conducted complexes. Chest x-ray demonstrated mild congestive heart failure. Initial troponin negative. Patient reports improvement in her symptoms after a dose of Lasix in the ED was noted to be hypoxic with oxygen saturation of 88% on room air at rest. Patient was hospitalized for further management of CHF exacerbation. Hospital Course: Patient was treated with IV Lasix pain continued to have edema 9/asymptomatic, so the IV Lasix was increased. He diuresed well, and his renal function remained stable, and patient was breathing more comfortably on room air. Patient was noted to be significantly debilitated/and generalized weakness. Physical therapy was consulted, recommended SNF rehab / PT. Patient has a caregiver at home from ~9-5, however unable to provide physical support the patient currently needs. Today patient denies shortness of breath. His symptoms resolved. Vital signs stable. Patient deemed clinically stable for discharge t o SNF for ongoing PT. Oral Lasix is resumed on discharge. Vital Signs/Physical Exam: Physical Exam General: Alert, In no apparent distress, Oriented x3 HEENT: Mucous membr. moist/pink Respiratory: clear to auscultation bilaterally. nonlabored on RA Cardiovascular: Regular rate/rhythm, 1+ LLE edema to knee Gastrointestinal: Normal bowel sounds, Soft and benign, Non-distended Musculoskeletal: R AKA Neurological: generalized weakness, nonfocal Temp Pulse Resp BP Pulse Ox 97.0 F 94 H 18 166/75 H 95 04/07/20 11:32 04/07/20 11:32 04/07/20 11:32 04/07/20 11:32 04/07/20 11:32 Laboratory Data at Discharge: WBC 5.40 K/uL (4.3-10.9) 04/07/20 05:38 Hgb 10.5 g/dL (13.6-17.9) L 04/07/20 05:38 Hct 33.1 % (39.6-49.0) L 04/07/20 05:38 Plt Count 130 K/uL (152-406) L 04/07/20 05:38 PT 15.7 SECONDS (9.5-12.5) H 04/04/20 12:10 INR 1.36 04/04/20 12:10 Sodium 142 mmol/L (136-145) 04/07/20 05:38 Potassium 3.7 mmol/L (3.5-5.1) 04/07/20 05:38 BUN 44 mg/dL (7-18) H 04/07/20 05:38 Creatinine 1.37 mg/dL (0.55-1.3) H 04/07/20 05:38 Glucose 105 mg/dL (74-106) 04/07/20 05:38 Phosphorus 3.5 mg/dL (2.5-4.9) 04/05/20 03:40 Magnesium 1.9 mg/dL (1.8-2.4) 04/07/20 05:38 Total Bilirubin 1.0 mg/dL (0.2-1.0) 04/04/20 12:10 AST 22 U/L (15-37) 04/04/20 12:10 ALT 19 U/L (12-78) 04/04/20 12:10 Alkaline Phosphatase 118 U/L (45-117) H 04/04/20 12:10 Home Medications: Aspirin [Aspirin EC 81 MG] 81 mg PO DAILY 05/04/18 Atorvastatin Calcium [Lipitor] 40 mg PO BEDTIME 05/04/18 Furosemide [Lasix*] 40 mg PO BIDL 05/04/18 Glimepiride [Amaryl] 4 mg PO DAILY 05/04/18 Potassium Chloride [Klor-Con M20] 20 meq PO DAILY 05/04/18 Tamsulosin [Flomax*] 0.4 mg PO DAILY 05/04/18 allopurinoL [Zyloprim*] 300 mg PO DAILY 05/04/18 carvediloL [Coreg*] 3.125 mg pe PO DAILY 05/04/18 Pantoprazole [Protonix Tab*] 40 mg PO BIDAC #60 tab 03/21/20 Spironolactone [Aldactone*] 25 mg PO DAILY #30 tab 03/21/20 Physician Discharge Instructions: You were found to have an acute CHF (congestive heart failure) exacerbation. You were treated with higher doses of IV Lasix and responded well. You are discharged to resume your home medications as previously prescribed. You were found to be debilitated/weak, likely from your multiple hospitalizations recently and overall health. You are discharged to a skilled facility for ongoing rehab / physical therapy. Please follow up with your PCP and Environmental Science Program Director in the next few weeks. Diet: ADA Activity: Fall precautions Followup: NONE,NONE [UNKNOWN] - 1-2 Weeks Time spent managing pt's care (in minutes): 40
== END 2020-04-07 14:15 | DRG 291 ==
LOC: ER 11:15 → ERHOLD 17:30 → 4TH 17:56 → OBSVTOIN 04-06 12:16
PROVIDERS: ADMIT Internal Medicine; ATTEND Hospitalist
DX: I13.0 Hypertensive heart and chronic kidney disease with heart failure and stage 1 through stage 4 chronic kidney disease, or unspecified chronic kidney disease (principal); I50.23 Acute on chronic systolic (congestive) heart failure; I48.20 Chronic atrial fibrillation, unspecified; N18.30 Chronic kidney disease, stage 3 unspecified; E11.22 Type 2 diabetes mellitus with diabetic chronic kidney disease; M10.9 Gout, unspecified; F17.210 Nicotine dependence, cigarettes, uncomplicated; I25.2 Old myocardial infarction; Z79.82 Long term (current) use of aspirin; Z79.84 Long term (current) use of oral hypoglycemic drugs; Z79.899 Other long term (current) drug therapy; Z86.14 Personal history of Methicillin resistant Staphylococcus aureus infection; Z96.652 Presence of left artificial knee joint; Z95.1 Presence of aortocoronary bypass graft; Z95.810 Presence of automatic (implantable) cardiac defibrillator; Z90.49 Acquired absence of other specified parts of digestive tract; Z20.822 Contact with and (suspected) exposure to COVID-19
CPT/HCPCS: 0240U; 36415; 71045; 80048; 80076; 82947; 83735; 83880; 84100; 84484; 85025; 85610; 87070; 87081; 93005; 94760; 96374; 97110; 97161; 97530; 99285; G0378; J1650; J1940; J3475

== ENCOUNTER 2020-04-24 16:24 | Inpatient (IN) | payer OTHER, BC ==
--- OUTSIDE RECORDS SUMMARY | 2020-04-24 16:31 | XMS REPORT | Continuity of Care Document ---
:1935 Author Organization [facility] t Address [address] [place] [address] Care Team Providers Name Role Phone Sharpless Primary Care Physician Galina Rios MD Attending Clinician Sudha German MD Attending Clinician SHARIFA HART Attending Clinician Unavailable Galina Rios MD Admitting Clinician SHARIFA HART Admitting Clinician Unavailable Payers Payer Name Policy Type Policy Effective Date Expiration Date Sour ce Number MEDICAREMEDICARE A [id number] ABHISHEK Daley [id number] 00:00:00 - Medical esentMedic[facility] Center BLUE CROSS/BLUE [id number] 2015 [facility] SHIELDBCBS PPO POS EPO 9 00:00:00 - Medical [id number] nter [id number] [address], [place] [address]NBU Problems Condition Condition Condition Status Onset Resolution Last Treating Co mments Source Name Details Category Date Date Treatment Clinician Date A-fib A-fib Disease [facility] Hypertensi Hypertensi Disease Active [facility]31 [facility] 00 Basile Hypernatre Hypernatre Disease Active [facility] nirav nirav 25 [facility] - 00:[facility]: Medical 00 Basile Acute Acute Disease Active [facility] blood loss blood loss 25 [facility] - anemia anemia 00:00: Medical 00 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 00:00: Medica l with with 00 Center complicati complicati on, on, without without long-term long-term current current use of use of insulin insulin Leukocytos Leukocytos Disease Active [facility] is is 05-31 [facility]: Medical 00 Basile Agitation Agitation Disease Active [facility] Medical 00 Basile Acute Acute Disease Active [facility] encephalop encephalop 25 [facility] - athy athy 00:00: Medical 00 Basile Acute Acute Disease Active [facility] kidney kidney 25 [facility] - injury injury 00:00: Medical 00 Basile Disorienta Disorienta Disease Active [facility] tion tion 05-31 [facility]: Medical 00 Basile GIB GIB Disease Active [facility] (gastroint (gastroint 24 [facility] - estinal estinal 00:00: Medical bleeding) bleeding) 00 Cent er Allergies, Adverse Reactions, Alerts This patient has no known allergies or adverse reactions. Social History Social Habit Start Date Stop Date Quantity Comments Source Sex Assigned At [facility] Tobacco use and 2017-05-31 2017-05-31 Never used [facility] - exposure 00:00:00 00:00:00 [facility] Alcohol intake 2017-05-31 2017-05-31 Current drinker [facility] S t [facility] - 00:00:00 00:00:00 of alcohol [facility] Center (finding) Smoking Status Start Date Stop Date Source Never smoker [facility] Ordered Filled Start Stop Current [...] MG 17:55: mouth Medical tablet 47 daily. Basile pantoprazol Yes 40mg Q.5D Take [address] [facility] [facility] e 5-14 tablet (40 [facility] - (PROTONIX) 00:00: mg total) Me dical 40 MG 00 by mouth 2 Center tablet (two) times daily. folic acid Yes 1mg QD Take [address] (FOLVITE) 1 4-05 by mouth Luke s - MG tablet 00:00: daily. Medica l 00 Basile atorvastati Yes 40mg QD Take [address] n (LIPITOR) 3-26 by mouth Luke s - 40 MG 00:00: nightly. Medical tablet 00 Basile furosemide Yes 40mg Take [address] (LASIX) 40 3-20 by mouth 2 [facility] - MG tablet 00:00: (two) Medical 00 times Center daily. Tresiba Tresiba Yes Abbi inject [address] FlexTouch FlexTouch [place] units [facility] Atorvastati Atorvastati Yes Abbi TAKE [address] [facility] n Calcium n Calcium [place] TABLET BY [facility] - MOUTH Memoria DAILY l Outpati ent Clinics Allopurinol Allopurinol Yes Abbi [address] [facility] [place] [facility] Glimepiride Glimepiride Yes Abbi [address] [facility] [place] with [facility] - breakfast Memoria or the l first main Outpati meal of ent the day Clinics Potassium Potassium Yes Abbi [address] [facility] Chloride Chloride [place] with food [facility] - [facility]ics Lasix Lasix Yes Abbi [address] [facility] [place] [facility] Tamsulosin Tamsulosin Yes Abbi [address] [facility] HCl HCl [place] [facility] Tamsulosin Tamsulosin Yes Abbi [address] [facility] [address] HCl HCl [place] Once a day [facility] - Orally 90 Memoria days l Outpati ent Clinics BD BD Yes Abbi [address] [facility] Ultra-Fine Ultra-Fine [place] with [facility]es - Milla Pen Milla Pen tresiba Walter cat Tensed Tensed l Outpati ent Clinics Carvedilol Carvedilol Yes Abbi not [facility] [place] defined [facility] Aspirin Aspirin Yes Abbi [address] [facility] [place] [facility] Magnesium Magnesium Yes Abbi [address] Oxide Oxide [place] as needed [facility] Vitamin B Vitamin B Yes Abbi [address] [facility] Complex Complex [place] [facility] Procedures This patient has no known procedures. Plan of Care Planned Activity Planned Date Details Comments Source Future Scheduled 2020-02-[address] [facility] - Test 00:00:00 (12+) [code = Medical Center DEPRESSION SCREENING (12+)] Future Scheduled 2019-10-[address] [facility] Test 00:00:00 (#1) [code = Medical Center INFLUENZA VACCINE (#1)] Future Scheduled 2017-12-[address] [facility] - Test 00:00:00 measurement Medical Center (procedure) [code = 85000774] Future Scheduled 2003-03-[address] [facility] [facility] - Test 00:00:00 WELLNESS (YEAR 2 or Medical Center FIRST YEAR if no IPPE) [code = MEDICARE ANNUAL WELLNESS (YEAR 2 or FIRST YEAR if no IPPE)] Future Scheduled 1987 SHINGLES VACCINES ([address] [facility] - Test 00:00:00 of 2) [code = Medical Center SHINGLES VACCINES (1 of 2)] Future Scheduled 1956 DTAP/TDAP/TD VACCINES [facility] Test 00:00:00 (1 - Tdap) [code = Medical C enter DTAP/TDAP/TD VACCINES (1 - Tdap)] Future Scheduled 1947 DIABETIC EYE EXAM [facility] Test 00:00:00 [code = DIABETIC EYE Medical Center EXAM] Future Scheduled [address] [facility] - Test 00:00:00 examination Medical Center (regime/therapy) [code = 141948387] Future Scheduled 1947 Urine screening for [facility] Test 00:[facility]:00 protein (procedure) Medical Center [code = 813775969] Encounters Start End Encounter Admission Attending Care Care Encounter Source Date/Time Date/Time Type Type Clinicians Facility Department ID 2020-04-01 2020-04-01 Outpatient [facility]MLC [facility] [id number] [facility] 2020-03-11 2020-03-15 [facility] Jenny Rios [id number] 06:05:00 13:27:00 Encounter Marito Redding [id number] [facility] [id number] 2020-03-10 2020-03-10 Outpatient STLMLC STLMLC [id number] [facility] 2020-03-04 2020-03-04 Outpatient [facility]LMLC [facility]MLC [id number] [facility] 2020-02-12 2020-02-12 Outpatient STLMLC STLMLC [id number] [facility] 2020-02-12 2020-02-12 Outpatient STLMLC [facility]MLC [id number] [facility] 2020-02-05 2020-02-05 Outpatient STLMLC STLMLC [id number] [facility] 2019-12-25 2019-12-25 Outpatient STLMLC [facility]LMLC [id number] [facility] 2019-11-27 2019-11-27 Outpatient STLMLC STLMLC [id number] [facility] 2019-11-20 2019-11-20 Outpatient STLMLC STLMLC [id number] [facility] 2019-11-13 2019-11-13 Outpatient STLMLC STLMLC [id number] [facility] 2019-10-30 2019-10-30 Outpatient [facility] STLC [id number] [facility] 2019-08-13 2019-08-13 [facility] [id number] 13:20:00 13:20:00 t [facility] l Medicine Outpati ent Clinics 2019-08-12 2019-08-12 [facility] [id number] 12:03:00 12:03:00 t Bradshaw [employer] s - Tok3n [facility] l Medicine Outpati ent Clinics 2019-07-23 2019-07-23 [facility] [id number] 14:15:00 14:15:00 t [email or web address] [facility] Medicine l Medicine Outpati ent Clinics 2019-07-17 2019-07-17 [facility] [id number] 11:45:00 11:45:00 t Bradshaw [employer] Molecular s - Tok3n [facility] Medicine l Medicine Outpati ent Clinics 2019-07-15 2019-07-15 [facility] [id number] 14:26:00 14:26:00 t [facility] Medicine Outpati ent Clinics 2019-05-20 2019-05-20 [facility] [id number] [address] 11:56:00 11:56:00 t Bradshaw [employer] Molecular s - Tok3n [facility] Medicine l Medicine Outpati ent Clinics 2019-05-17 2019-05-17 [facility] [id number] 15:48:00 15:48:00 t Bradshaw [employer] Molecular s - Tok3n [facility] Medicine l Medicine Outpati ent Clinics 2019-02-27 2019-02-27 [facility] [id number] 13:15:00 13:15:00 t Bradshaw [employer] Molecular s [address] [facility] Medicine l Medicine Outpati ent Clinics 2018-12-26 2018-12-26 [facility] [id number] [address] 15:45:00 15:45:00 t Bradshaw [employer] Molecular s Plastyc [facility] Medicine Outpati ent Clinics 2018-11-28 2018-11-28 [facility] [id number] 15:00:00 15:00:00 t Bradshaw [employer] Molecular s - Drive [facility] Medicine Outpati ent Clinics 2018-10-17 2018-10-17 [facility] [id number] 15:38:00 15:38:00 t [email or web address] - Tok[employer] [facility] Medicine Outpati ent Clinics 2018-10-17 2018-10-17 [facility] [id number] 15:15:00 15:15:00 t [email or web address] - Tok[employer] [facility] Medicine Outpati ent Clinics 2018-10-02 2018-10-02 [facility] [id number] 11:25:00 11:25:00 t [email or web address] Neura [facility] Outpati ent Clinics 2018-08-08 2018-08-08 [facility] [id number] 10:25:00 10:25:00 t Specialty/U [facility] - Specialty rology Memori a /Urology Clinic l Clinic Outpati ent Clinics 2018-06-11 2018-06-11 [facility] [id number] 11:57:00 11:57:00 t Specialty/U [facility]e kes - Specialty rology Memori a /Urology Clinic l Clinic Outpati ent Clinics 2018-05-14 2018-05-14 [facility] [id number] 10:30:00 10:30:00 t [email or web address] [facility] Outpati ent Clinics Results Test Description Test Time Test Comments Results Result Sourc e Comments U/S, ABDOMINAL, 2017-06-29 Abdomen limited Addendum LIMITED 05:54:00 area? Add comment BeginsREPORT if clarification is STATUS:A PATIENT needed.->LiverReaso ID: [id number] n for exam:->r/o Indication: Right cirrhosis upper quadrant pain. Signed: Marci Levine MDReport Verified Date/Time: 06/29/2017 05:54:07 Reading Location: [facility] B1 C013Y CT Body Reading RoomAddendum EndsFINAL [...] MDReport Verified Date/Time: 06/04/2017 06:44:53 Reading Location: [facility] B1 C013X Ortho Consult Reading Room -GLUCOSE METER 2017-06-19 16:56:00 Test Item Value Reference Range Interpretation Comme nts POC-GLUCOSE METER (BANNER) (test 202 mg/dL 70-110 H TESTED AT [address] code = 1538) [facility] 7703 0 POCT-GLUCOSE [id number] 12:23:00 Test Item Value Reference Range Interpretation Comments POC-GLUCOSE METER 223 mg/dL 70-110 H TESTED AT [place] [address] (BANNER) (test code = [facility] Estuardo [facility] 1538) [address] POCT-GLUCOSE [id number] 08:07:00 Test Item Value Reference Range Interpretation Comments POC-GLUCOSE METER 122 mg/dL 70-110 H TESTED AT [place] [address] (BANNER) (test code = MIKY Marte [facility] 1538) [address] [id number] 07:19:00 Test Item Value Reference Range Interpretation Comments MAGNESIUM (BEAKER) (test code = 1.4 mg/dL 1.6-2.6 L 627) [id number] 07:19:00 Test Item Value Reference Range Interpretation Comments PHOSPHORUS (BEAKER) (test code = 2.7 mg/dL 2.3-4.7 604) COMPREHENSIVE METABOLIC [id number] 07:18:00 Test Item Value Reference Range Interpretation [...] PATIEN TS. CBC W/PLT COUNT & AUTO [id number] 00:06:00 Test Item Value Reference Range Interpretation [...] PERCENT (BEAKER) (test code = 2801) POCT-GLUCOSE [id number] 20:29:00 Test Item Value Reference Range Interpretation Comments POC-GLUCOSE METER 126 mg/dL 70-110 H TESTED AT [place] [address] (BANNER) (test code = [facility] 1538) [address] POCT-GLUCOSE [id number] 17:46:00 Test Item Value Reference Range Interpretation Comments POC-GLUCOSE METER 98 mg/dL 70-110 TESTED AT [place] [address] (BANNER) (test code = [facility] [address] 1538) POCT-GLUCOSE [id number] 13:26:00 Test Item Value Reference Range Interpretation Comments POC-GLUCOSE METER 118 mg/dL 70-110 H TESTED AT [facility] 6720 (BEAKER) (test code = MIKY Marte [facility] 1538) [address] POCT-GLUCOSE [id number] 08:28:00 Test Item Value Reference Range Interpretation Comments POC-GLUCOSE METER 137 mg/dL 70-110 H TESTED AT [facility] 6720 (BEAKER) (test code = MIKY Marte [facility] 1538) [address] [id number] 05:31:00 Test Item Value Reference Range Interpretation Comments PHOSPHORUS (BEAKER) (test code = 3.1 mg/dL 2.3-4.7 604) [id number] 05:31:00 Test Item Value Reference Range Interpretation Comments MAGNESIUM (BEAKER) (test code = 1.3 mg/dL 1.6-2.6 L 627) BASIC METABOLIC [id number] 05:31:00 Test Item Value Reference Range Interpretation [...] PATIEN TS. CBC W/PLT COUNT & AUTO [id number] 05:13:00 Test Item Value Reference Range Interpretation [...] PERCENT (BEAKER) (test code = 2801) POCT-GLUCOSE [id number] 21:05:00 Test Item Value Reference Range Interpretation Comments POC-GLUCOSE METER 199 mg/dL 70-110 H TESTED AT [facility] 67 (BANNER) (test code = [facility] 1538) [address] POCT-GLUCOSE [id number] 18:55:00 Test Item Value Reference Range Interpretation Comments POC-GLUCOSE METER 128 mg/dL 70-110 H TESTED AT [place] [address] (BANNER) (test code = [facility] 1538) [address] POCT-GLUCOSE [id number] 11:34:00 Test Item Value Reference Range Interpretation Comments POC-GLUCOSE METER 144 mg/dL 70-110 H TESTED AT [place] [address] (BANNER) (test code = [facility] 1538) 88148 POCT-GLUCOSE [id number] 07:58:00 Test Item Value Reference Range Interpretation Comments POC-GLUCOSE METER 93 mg/dL 70-110 TESTED AT [place] [address] (BANNER) (test code = [facility] [address] 1538) [id number] 05:23:00 Test Item Value Reference Range Interpretation Comments PHOSPHORUS (BEAKER) (test code = 2.9 mg/dL 2.3-4.7 604) [id number] 05:23:00 Test Item Value Reference Range Interpretation Comments MAGNESIUM (BEAKER) (test code = 1.6 mg/dL 1.6-2.6 627) CBC W/PLT COUNT & AUTO [id number] 05:03:00 Test Item Value Reference Range Interpretation Comments WHITE BLOOD CELL COUNT (BEAKER) 7.0 K/ L 3.5-10.5 (test code = 775) RED BLOOD CELL COUNT (AKER) 2.87 M/ L 4.63-6.08 L (test code = 761) HEMOGLOBIN (BEAKER) (test code = 8.4 GM/DL 13.7-17.5 L 410) HEMATOCRIT (AKER) (test code = 26.3 % 40.1-51.0 L 411) MEAN CORPUSCULAR VOLUME (BANNER) 91.6 fL 79.0-92.2 (test code = 753) [...] PERCENT (BEAKER) (test code = 2801) POCT-GLUCOSE [id number] 22:10:00 Test Item Value Reference Range Interpretation Comments POC-GLUCOSE METER 100 mg/dL 70-110 TESTED AT [facility] 6720 ([facility]) (test code = MIKY [place] 1538) [address] POCT-GLUCOSE [id number] 20:51:00 Test Item Value Reference Range Interpretation Comments POC-GLUCOSE METER 195 mg/dL 70-110 H TESTED AT [facility] 6720 (BEAKER) (test code = MIKY [place] 1538) [address] POCT-GLUCOSE [id number] 12:49:00 Test Item Value Reference Range Interpretation Comments POC-GLUCOSE METER 183 mg/dL 70-110 H TESTED AT [facility] 6720 (BEAKER) (test code = MIKY [place] 1538) [address] POCT-GLUCOSE [id number] 08:20:00 Test Item Value Reference Range Interpretation Comments POC-GLUCOSE METER 95 mg/dL 70-110 TESTED AT [facility] 6720 (BEAKER) (test code = [place] [address] 1538) [id number] 07:00:00 Test Item Value Reference Range Interpretation Comments MAGNESIUM (BEAKER) (test code = 1.0 mg/dL 1.6-2.6 LL 627) [id number] 06:56:00 Test Item Value Reference Range Interpretation Comments PHOSPHORUS (BEAKER) (test code = 2.8 mg/dL 2.3-4.7 604) BASIC METABOLIC [id number] 06:56:00 Test Item Value Reference Range Interpretation [...] PATIEN TS. CBC W/PLT COUNT & AUTO [id number] 06:16:00 Test Item Value Reference Range Interpretation [...] PERCENT (BEAKER) (test code = 2801) POCT-GLUCOSE [id number] 21:45:00 Test Item Value Reference Range Interpretation Comments POC-GLUCOSE METER 174 mg/dL 70-110 H TESTED AT [facility] 6720 (BEAKER) (test code = MIKY Marte [place] 1538) [address] POCT-GLUCOSE [id number] 17:21:00 Test Item Value Reference Range Interpretation Comments POC-GLUCOSE METER 212 mg/dL 70-110 H TESTED AT [facility] 6720 (BEAKER) (test code = MIKY Marte [place] 1538) [address] POCT-GLUCOSE [id number] 08:21:00 Test Item Value Reference Range Interpretation Comments POC-GLUCOSE METER 107 mg/dL 70-110 TESTED AT [facility] 67 (BEAKER) (test code = MIKY Marte [facility] 1538) [address] [id number] 03:39:00 Test Item Value Reference Range Interpretation Comments PHOSPHORUS (BEAKER) (test code = 2.8 mg/dL 2.3-4.7 604) [id number] 03:39:00 Test Item Value Reference Range Interpretation Comments MAGNESIUM (BEAKER) (test code = 1.4 mg/dL 1.6-2.6 L 627) COMPREHENSIVE METABOLIC [id number] 03:39:00 Test Item Value Reference Range Interpretation [...] NOT APPLICABLE FOR DIALYSIS PATIEN TS. PROTHROMBIN [id number] 03:27:00 Test Item Value Reference Range Interpretation [...] 0-1 PERCENT (BEAKER) (test code = 2802) POCT-GLUCOSE [id number] 21:20:00 Test Item Value Reference Range Interpretation Comments POC-GLUCOSE METER 101 mg/dL 70-110 TESTED AT [place] [address] (BANNER) (test code = MIKY Marte [facility] 1538) [address] BLOOD [id number] 18:00:00 Test Item Value Reference Range Interpretation Comments CULTURE (BEAKER) (test No growth in 5 days code = 1095) POCT-GLUCOSE [id number] 17:25:00 Test Item Value Reference Range Interpretation Comments POC-GLUCOSE METER 273 mg/dL 70-110 H TESTED AT [place] [address] (BANNER) (test code = [facility] Estuardo [facility] 1538) [address] POCT-GLUCOSE [id number] 13:32:00 Test Item Value Reference Range Interpretation Comments POC-GLUCOSE METER 247 mg/dL 70-110 H TESTED AT [place] [address] (BANNER) (test code = MIKY Marte [facility] 1538) 47460 CBC W/PLT COUNT & AUTO [id number] 12:21:00 Test Item Value Reference Range Interpretation [...] 0-0 (BEAKER) (test code = 413) POCT-GLUCOSE [id number] 08:05:00 Test Item Value Reference Range Interpretation Comments POC-GLUCOSE METER 165 mg/dL 70-110 H TESTED AT [facility] 6720 (BEAKER) (test code = MIKY [place] 1538) [address] [id number] 06:32:00 Test Item Value Reference Range Interpretation Comments MAGNESIUM (BEAKER) (test code = 1.0 mg/dL 1.6-2.6 LL 627) [id number] 06:31:00 Test Item Value Reference Range Interpretation Comments PHOSPHORUS (BEAKER) (test code = 2.9 mg/dL 2.3-4.7 604) BASIC METABOLIC [id number] 06:31:00 Test Item Value Reference Range Interpretation [...] NOT APPLICABLE FOR DIALYSIS PATIEN TS. POCT-GLUCOSE [id number] 21:42:00 Test Item Value Reference Range Interpretation Comments POC-GLUCOSE METER 139 mg/dL 70-110 H TESTED AT [place] [address] (BANNER) (test code = [facility] 1538) [address] POCT-GLUCOSE [id number] 17:39:00 Test Item Value Reference Range Interpretation Comments POC-GLUCOSE METER 225 mg/dL 70-110 H TESTED AT [place] [address] (BANNER) (test code = [facility] 1538) 36961 POCT-GLUCOSE [id number] 12:02:00 Test Item Value Reference Range Interpretation Comments POC-GLUCOSE METER 153 mg/dL 70-110 H TESTED AT [place] [address] (BANNER) (test code = [facility] 1538) 47799 POCT-GLUCOSE [id number] 09:32:00 Test Item Value Reference Range Interpretation Comments POC-GLUCOSE METER 82 mg/dL 70-110 TESTED AT [place] [address] (BANNER) (test code = [facility] [address] 1538) [id number] 06:51:00 Test Item Value Reference Range Interpretation Comments PHOSPHORUS (BEAKER) (test code = 2.6 mg/dL 2.3-4.7 604) [id number] 06:51:00 Test Item Value Reference Range Interpretation Comments MAGNESIUM (BEAKER) (test code = 1.4 mg/dL 1.6-2.6 L 627) BASIC METABOLIC [id number] 06:51:00 Test Item Value Reference Range Interpretation [...] PATIEN TS. CBC W/PLT COUNT & AUTO [id number] 05:59:00 Test Item Value Reference Range Interpretation [...] PERCENT (BEAKER) (test code = 2801) POCT-GLUCOSE [id number] 22:42:00 Test Item Value Reference Range Interpretation Comments POC-GLUCOSE METER 143 mg/dL 70-110 H TESTED AT [place] [address] (BANNER) (test code = MIKY Marte [facility] 1538) [address] POCT-GLUCOSE [id number] 17:31:00 Test Item Value Reference Range Interpretation Comments POC-GLUCOSE METER 167 mg/dL 70-110 H TESTED AT [place] [address] (BANNER) (test code = MIKY [place] 1538) [address] POCT-GLUCOSE [id number] 12:29:00 Test Item Value Reference Range Interpretation Comments POC-GLUCOSE METER 196 mg/dL 70-110 H TESTED AT [place] [address] (BANNER) (test code = MIKY [place] 1538) [address] POCT-GLUCOSE [id number] 07:54:00 Test Item Value Reference Range Interpretation Comments POC-GLUCOSE METER 138 mg/dL 70-110 H TESTED AT [facility] 6720 (BEAKER) (test code = MI[place] 1538) [address] [id number] 06:13:00 Test Item Value Reference Range Interpretation Comments PHOSPHORUS (BEAKER) (test code = 3.2 mg/dL 2.3-4.7 604) [id number] 06:13:00 Test Item Value Reference Range Interpretation Comments MAGNESIUM (BEAKER) (test code = 1.3 mg/dL 1.6-2.6 L 627) CBC W/PLT COUNT & AUTO [id number] 05:50:00 Test Item Value Reference Range Interpretation [...] PERCENT (BEAKER) (test code = 2801) POCT-GLUCOSE [id number] 21:11:00 Test Item Value Reference Range Interpretation Comments POC-GLUCOSE METER 160 mg/dL 70-110 H TESTED AT [facility] 6720 (BEAKER) (test code = [facility] [employer] [facility] 1538) 18850 BLOOD [id number] 18:00:00 Test Item Value Reference Range Interpretation Comments CULTURE (BEAKER) (test No growth in 5 days code = 1095) POCT-GLUCOSE [id number] 17:54:00 Test Item Value Reference Range Interpretation Comments POC-GLUCOSE METER 163 mg/dL 70-110 H TESTED AT [facility] 6720 (BEAKER) (test code = [employer] [facility] 1538) [id number] POCT-GLUCOSE [id number] 12:41:00 Test Item Value Reference Range Interpretation Comments POC-GLUCOSE METER 133 mg/dL 70-110 H TESTED AT [facility] 6720 (BEAKER) (test code = [facility] [employer] [facility] 1538) [id number] BLOOD [id number] 11:00:00 Test Item Value Reference Range Interpretation Comments CULTURE (BEAKER) (test No growth in 5 days code = 1095) POCT-GLUCOSE [id number] 07:57:00 Test Item Value Reference Range Interpretation Comments POC-GLUCOSE METER 132 mg/dL 70-110 H TESTED AT [facility] 6720 (BEAKER) (test code = [facility] [employer] [facility] 1538) [address] VANCOMYCIN LEVEL, [id number] 07:30:00 Test Item Value Reference Range Interpretation Comments VANCOMYCIN RANDOM (BEAKER) (test 31.8 ug/mL code = 523) Reference Range: No [id number] 07:09:00 Test Item Value Reference Range Interpretation Comments PHOSPHORUS (BEAKER) (test code = 3.5 mg/dL 2.3-4.7 604) [id number] 07:09:00 Test Item Value Reference Range Interpretation Comments MAGNESIUM (BEAKER) (test code = 1.4 mg/dL 1.6-2.6 L 627) BASIC METABOLIC [id number] 07:09:00 Test Item Value Reference Range Interpretation [...] PATIEN TS. CBC W/PLT COUNT & AUTO [id number] 06:27:00 Test Item Value Reference Range Interpretation [...] PERCENT (BEAKER) (test code = 2801) POCT-GLUCOSE [id number] 21:46:00 Test Item Value Reference Range Interpretation Comments POC-GLUCOSE METER 262 mg/dL 70-110 H TESTED AT [facility] 6720 (BEAKER) (test code = MIKY NAJERA 1538) [address] POCT-GLUCOSE [id number] 17:44:00 Test Item Value Reference Range Interpretation Comments POC-GLUCOSE METER 175 mg/dL 70-110 H TESTED AT [facility] 6720 (BEAKER) (test code = MIKY [place] 1538) [address] POCT-GLUCOSE [id number] 12:25:00 Test Item Value Reference Range Interpretation Comments POC-GLUCOSE METER 173 mg/dL 70-110 H TESTED AT [facility] 6720 (BEAKER) (test code = MIKY Marte [place] 1538) [address] BLOOD [id number] 12:00:00 Test Item Value Reference Range Interpretation Comments CULTURE (BEAKER) (test No growth in 5 days code = 1095) POCT-GLUCOSE [id number] 08:52:00 Test Item Value Reference Range Interpretation Comments POC-GLUCOSE METER 183 mg/dL 70-110 H TESTED AT [facility] 6720 (BEAKER) (test code = MIKY Marte [place] 1538) [address] [id number] 06:01:00 Test Item Value Reference Range Interpretation Comments PHOSPHORUS (BEAKER) (test code = 3.3 mg/dL 2.3-4.7 604) [id number] 06:01:00 Test Item Value Reference Range Interpretation Comments MAGNESIUM (BEAKER) (test code = 1.8 mg/dL 1.6-2.6 627) BASIC METABOLIC [id number] 06:01:00 Test Item Value Reference Range Interpretation [...] PATIEN TS. CBC W/PLT COUNT & AUTO [id number] 04:59:00 Test Item Value Reference Range Interpretation [...] EOSINOPHILS ABSOLUTE COUNT 0.21 K/ L 0.04-0.54 (BANNER) (test code = 416) BASOPHILS ABSOLUTE COUNT (BANNER) 0.08 K/ L 0.01-0.08 (test code = 417) IMMATURE GRANULOCYTES-RELATIVE 1 % 0-1 PERCENT (BANNER) (test code = 2801) POCT-GLUCOSE [id number] 21:51:00 Test Item Value Reference Range Interpretation Comments POC-GLUCOSE METER 203 mg/dL 70-110 H TESTED AT [place] [address] (BANNER) (test code = [facility] Estuardo [place] 1538) [address] POCT-GLUCOSE [id number] 17:35:00 Test Item Value Reference Range Interpretation Comments POC-GLUCOSE METER 218 mg/dL 70-110 H TESTED AT [place] [address] (BANNER) (test code = [facility] 1538) [address] SPUTUM CULTURE + GRAM [id number] 15:48:00 Test Item Value Reference Interpretation Comments Range CULTURE (BANNER) METHICILLIN A <1+ Methici llin (test code [...] Vancomycin (test S code = 13) CULTURE (BANNER) A <1+ Strepto coccus not (test code = 1095) group A b eta hemolyticIdenti fied by serological tamika uping. GRAM STAIN RESULT No WBCs (BANNER) (test code = 1123) GRAM STAIN RESULT 0-5 epithelial (BANNER) (test code cells = 119450) GRAM STAIN RESULT No organisms seen (BANNER) (test code = 470775) <1+ Normal respiratory melanie presentPOCT-GLUCOSE [id number] 12:00:00 Test Item Value Reference Range Interpretation Comments POC-GLUCOSE METER 194 mg/dL 70-110 H TESTED AT [facility] 67 (BANNER) (test code = [facility] [place] 1538) [address] BLOOD [id number] 12:00:00 Test Item Value Reference Range Interpretation Comments CULTURE (BEAKER) (test No growth in 5 days code = 1095) BLOOD [id number] 12:00:00 Test Item Value Reference Range Interpretation Comments CULTURE (BEAKER) (test No growth in 5 days code = 1095) POCT-GLUCOSE [id number] 05:58:00 Test Item Value Reference Range Interpretation Comments POC-GLUCOSE METER 228 mg/dL 70-110 H TESTED AT [facility] 6720 (BEAKER) (test code = MIKY [place] 1538) [address] [id number] 04:42:00 Test Item Value Reference Range Interpretation Comments PHOSPHORUS (BEAKER) (test code = 3.1 mg/dL 2.3-4.7 604) [id number] 04:42:00 Test Item Value Reference Range Interpretation Comments MAGNESIUM (BEAKER) (test code = 1.9 mg/dL 1.6-2.6 627) BASIC METABOLIC [id number] 04:42:00 Test Item Value Reference Range Interpretation [...] PATIEN TS. CBC W/PLT COUNT & AUTO [id number] 04:27:00 Test Item Value Reference Range Interpretation [...] PERCENT (BEAKER) (test code = 2801) POCT-GLUCOSE [id number] 00:11:00 Test Item Value Reference Range Interpretation Comments POC-GLUCOSE METER 194 mg/dL 70-110 H TESTED AT [facility] 6720 (BEAKER) (test code = MIKY Marte [facility] 1538) [address] [id number] 20:46:00 Test Item Value Reference Range Interpretation Comments MAGNESIUM (BEAKER) (test code = 1.9 mg/dL 1.6-2.6 627) BASIC METABOLIC [id number] 20:46:00 Test Item Value Reference Range Interpretation [...] NOT APPLICABLE FOR DIALYSIS PATIEN TS. POCT-GLUCOSE [id number] 19:29:00 Test Item Value Reference Range Interpretation Comments POC-GLUCOSE METER 317 mg/dL 70-110 H TESTED AT [facility] 6720 (BEAKER) (test code = [facility] [place] [facility] 1538) [address] BLOOD GAS, [id number] 18:31:00 Test Item Value Reference Range Interpretation [...] 37.0 C code = 1818) From midlinePOCT-GLUCOSE [id number] 12:03:00 Test Item Value Reference Range Interpretation Comments POC-GLUCOSE METER 107 mg/dL 70-110 TESTED AT [place] [address] (BANNER) (test code = [facility] 1538) [address] POCT-GLUCOSE [id number] 12:03:00 Test Item Value Reference Range Interpretation Comments POC-GLUCOSE METER 75 mg/dL 70-110 TESTED AT [place] [address] (BANNER) (test code = [facility] [address] 1538) [id number] 06:12:00 Test Item Value Reference Range Interpretation Comments FERRITIN (BEAKER) (test code = 361) 334 ng/mL 5-275 H VITAMIN B12 AND [id number] 06:12:00 Test Item Value Reference Range Interpretation Comments VITAMIN B12 (BEAKER) (test code = 508 pg/mL 213-816 774) FOLATE (BEAKER) (test code = 362) 16.5 ng/mL >=7.0 POCT-GLUCOSE [id number] 06:00:00 Test Item Value Reference Range Interpretation Comments POC-GLUCOSE METER 84 mg/dL 70-110 TESTED AT [place] [address] (BANNER) (test code = [facility] [address] 1538) IRON, TIBC, % SAT. (WITHOUT FERRITIN)2017-06-08 05:42:00 Test Item Value Reference Range Interpretation Comments IRON (BEAKER) (test code = 547) 15 ug/dL 40-160 L TOTAL IRON BINDING CAPACITY 183 ug/dL 250-450 L (BEAKER) (test code = 769) IRON % SATURATION (2) (BEAKER) 8 % 20-55 L (test code = 2590) [id number] 05:42:00 Test Item Value Reference Range Interpretation Comments PHOSPHORUS (BEAKER) (test code = 2.8 mg/dL 2.3-4.7 604) [id number] 05:42:00 Test Item Value Reference Range Interpretation Comments MAGNESIUM (BEAKER) (test code = 1.6 mg/dL 1.6-2.6 627) BASIC METABOLIC [id number] 05:42:00 Test Item Value Reference Range Interpretation [...] PATIEN TS. CBC W/PLT COUNT & AUTO [id number] 05:25:00 Test Item Value Reference Range Interpretation [...] PERCENT (BEAKER) (test code = 2801) POCT-GLUCOSE [id number] 23:41:00 Test Item Value Reference Range Interpretation Comments POC-GLUCOSE METER 180 mg/dL 70-110 H TESTED AT [facility] 6720 (BEAKER) (test code = MIKY Marte [facility] 1538) [address] RAD, ABDOMEN/KUB, 1 VIEW [id number] 22:29:00Reason for exam:->feeding tube placementFINAL REPORT Comparison: 06/07/2017 at 9:51 PM TECHNIQUE: Frontal image of the abdomen FINDINGS: Feeding tube has been repositioned. Tip now projects in the distal stomach. No other significant change. Signed: Kali Medina Verified Date/Time: 06/07/2017 22:29:27 Reading Location: [facility] C013W Consult Reading Room RAD, ABDOMEN/KUB, 1 VIEW AP 2017-06-07 22:16:00Reason for exam:->feeding tube placementFINAL REPORT Comparison: 06/03/2017 TECHNIQUE: Frontal image of the abdomen FINDINGS: Feeding tube has been advanced. Distal portion is turned back upon itself and the tip projects in the fundus. Bowel gas pattern is nonspecific. Signed: Kali Medina MDReport Verified Date/Time: 06/07/2017 22:16:52 Reading Location: [facility] C013W Consult Reading Room [facility] METABOLIC PANEL 2017-06-07 19:04:00 Test Item [...] NOT APPLICABLE FOR DIALYSIS PATIEN TS. POCT-GLUCOSE [id number] 18:24:00 Test Item Value Reference Range Interpretation Comments POC-GLUCOSE METER 198 mg/dL 70-110 H TESTED AT [facility] 6720 (BEAKER) (test code = MIKY [place] 1538) [address] [id number] 17:53:00 Test Item Value Reference Range Interpretation Comments PROCALCITONIN (MOY) (test code = < ng/mL <0.05 3036) SEPSIS RISK (ng/mL)Low: 0.05-0.50Intermediate: 0.51-2.00High: >=2.01RETICULOCYTE [id number] 17:06:00 Test Item Value Reference Range Interpretation Comments RETICULOCYTE COUNT PCT (MOY) (test 2.7 % 0.5-1.8 H code = 575) POCT-GLUCOSE [id number] 13:07:00 Test Item Value Reference Range Interpretation Comments POC-GLUCOSE METER 240 mg/dL 70-110 H TESTED AT [facility] 6720 (MOY) (test code = MIKY [place] 1538) [address] RAD, CHEST, 1 VIEW, NON [id number] 08:42:00Reason for exam:- >intubatedShould this be performed at the bedside?->YesFINAL REPORT Chest one view compared to June 06, 2017 Discussion: Left chest pacemaker, feeding tube, right IJ line in place. There is pulmonary congestion with subtle suspected airspace opacity left lung base all unchanged. No gross effusion or pneumothorax. Signed: Jerel Noguera Verified Date/Time: 06/07/2017 08:42:41 Reading Location: [facility] Radiology Reading Room TROPONIN [id number] 05:52:00 Test Item Value Reference Range Interpretation Comments TROPONIN I (MOY) (test code = 0.03 ng/mL 0.00-0.03 397) [...] acidosis, acute neurological disease, and persistent tachyarrhythmia.POCT-GLUCOSE [id number] 05:48:00 Test Item Value Reference Range Interpretation Comments POC-GLUCOSE METER 148 mg/dL 70-110 H TESTED AT [facility] 6720 (BEAKER) (test code = MIKY NAJERA 1530) [address] [id number] 05:43:00 Test Item Value Reference Range Interpretation Comments PHOSPHORUS (BEAKER) (test code = 2.9 mg/dL 2.3-4.7 604) [id number] 05:43:00 Test Item Value Reference Range Interpretation Comments MAGNESIUM (BEAKER) (test code = 1.6 mg/dL 1.6-2.6 627) BASIC METABOLIC [id number] 05:43:00 Test Item Value Reference Range Interpretation [...] DIALYSIS PATIEN TS. LACTIC ACID, VENOUS, WHOLE [id number] 05:41:00 Test Item Value Reference Range Interpretation Comments LACTATE BLOOD VENOUS (2) (BEAKER) 0.9 mmol/L 0.5-2.2 (test code = 2872) Effective 06/10/2015: Units/Reference Range ChangeNew: 0.5-2.2 mmol/L Previous: 5-20 mg/dLCBC W/PLT COUNT & AUTO [id number] 05:26:00 Test Item Value Reference Range Interpretation [...] H (test code = 700) BASIC METABOLIC [id number] 00:34:00 Test Item Value Reference Range Interpretation [...] NOT APPLICABLE FOR DIALYSIS PATIEN TS. POCT-GLUCOSE [id number] 23:42:00 Test Item Value Reference Range Interpretation Comments POC-GLUCOSE METER 195 mg/dL 70-110 H TESTED AT [facility] 6720 (BEAKER) (test code = MIKY Marte [place] 1538) [address] BASIC METABOLIC [id number] 17:50:00 Test Item Value Reference Range Interpretation [...] NOT APPLICABLE FOR DIALYSIS PATIEN TS. POCT-GLUCOSE [id number] 17:48:00 Test Item Value Reference Range Interpretation Comments POC-GLUCOSE METER 228 mg/dL 70-110 H TESTED AT [facility] 6720 (BEAKER) (test code = [facility] Estuardo [facility] 1538) [address] POCT-GLUCOSE [id number] 12:03:00 Test Item Value Reference Range Interpretation Comments POC-GLUCOSE METER 237 mg/dL 70-110 H TESTED AT [facility] 6720 (BEAKER) (test code = [facility] 1538) [address] BASIC METABOLIC [id number] 09:39:00 Test Item Value Reference Range Interpretation [...] NOT APPLICABLE FOR DIALYSIS PATIEN TS. CALCIUM, [id number] 04:52:00 Test Item Value Reference Range Interpretation Comments CALCIUM IONIZED (BEAKER) (test 1.08 mmol/L 1.12-1.27 L code = 698) PH, BLOOD (BEAKER) (test code = 7.42 1810) [id number] 04:43:00 Test Item Value Reference Range Interpretation Comments PHOSPHORUS (BEAKER) (test code = 3.5 mg/dL 2.3-4.7 604) [id number] 04:43:00 Test Item Value Reference Range Interpretation Comments MAGNESIUM (BEAKER) (test code = 1.8 mg/dL 1.6-2.6 627) LACTIC ACID, VENOUS, WHOLE [id number] 04:34:00 Test Item Value Reference Range Interpretation Comments LACTATE BLOOD VENOUS (2) (BEAKER) 1.6 mmol/L 0.5-2.2 (test code = 2872) Effective 06/10/2015: Units/Reference Range ChangeNew: 0.5-2.2 mmol/L Previous: 5-20 mg/dLRAD, CHEST, 1 VIEW, NON [id number] 04:29:00Reason for exam:- >intubatedShould this be performed at the bedside?->YesFINAL REPORT RAD, CHEST, 1 VIEW, NON DEPT INDICATION: intubated COMPARISON: Prior day's exam TECHNIQUE: Portable frontal view of the chest. IMPRESSION: Lines and tubes stable.Cardiomediastinal silhouette stable.Stable vascular congestion.Stable dense opacification at the left lung base likely reflecting a combination of pleural fluid and adjacent airspace disease.No acute osseous abnormality. Signed: aMrci Levine MDReport Verified Date/Time: 06/06/2017 04:29:24 Reading Location: [address] Transitional Reading Room CBC W/PLT COUNT & AUTO [id number] 04:14:00 Test Item Value Reference Range Interpretation [...] PERCENT (BEAKER) (test code = 2801) POCT-GLUCOSE [id number] 04:08:00 Test Item Value Reference Range Interpretation Comments POC-GLUCOSE METER 262 mg/dL 70-110 H TESTED AT [facility] 6720 (BEAKER) (test code = MIKY NAJERA 1538) [address] POCT-GLUCOSE [id number] 04:08:00 Test Item Value Reference Range Interpretation Comments POC-GLUCOSE METER 288 mg/dL 70-110 H TESTED AT [facility] 67 ([facility]) (test code = MIKY Marte [place] 1538) [address] POCT-GLUCOSE [id number] 03:43:00 Test Item Value Reference Range Interpretation Comments POC-GLUCOSE METER 248 mg/dL 70-110 H TESTED AT [place] [address] ([facility]) (test code = MIKY Marte [facility] 1538) [address] BASIC METABOLIC [id number] 01:47:00 Test Item Value Reference Range Interpretation [...] APPLICABLE FOR DIALYSIS PATIEN TS. VANCOMYCIN LEVEL, [id number] 21:49:00 Test Item Value Reference Range Interpretation Comments VANCOMYCIN TROUGH (BEAKER) (test 21.4 ug/mL 10.0-20.0 H code = 522) POCT-GLUCOSE [id number] 18:34:00 Test Item Value Reference Range Interpretation Comments POC-GLUCOSE METER 250 mg/dL 70-110 H TESTED AT [facility] 6720 (BEAKER) (test code = MIKY Marte [place] 1538) [address] [id number] 18:00:00 Test Item Value Reference Range Interpretation Comments MAGNESIUM (BEAKER) (test code = 1.4 mg/dL 1.6-2.6 L 627) BASIC METABOLIC [id number] 18:00:00 Test Item Value Reference Range Interpretation [...] NOT APPLICABLE FOR DIALYSIS PATIEN TS. POCT-GLUCOSE [id number] 11:41:00 Test Item Value Reference Range Interpretation Comments POC-GLUCOSE METER 214 mg/dL 70-110 H TESTED AT [facility] 6720 (BEAKER) (test code = BALALEELA Estuardo YASH NAJERA 1538) [address] CREATINE KINASE (CK), TOTAL AND [id number] 10:29:00 Test Item Value Reference Range Interpretation Comments CREATINE KINASE TOTAL (BEAKER) 45 U/L 29-200 (test code = 380) CREATINE KINASE-MB (BEAKER) (test 0.5 ng/mL 0.0-6.6 code = 750) CREATINE KINASE-MB INDEX (BEAKER) 1.1 % (test code = 395) CK-MB Reference Range:<6.7 Normal6.7-10.0 Borderline>10.0 AbnormalBASIC METABOLIC [id number] 10:23:00 Test Item Value Reference Range Interpretation [...] PATIEN TSKj RAD, CHEST, 1 VIEW, NON [id number] 07:34:00Reason for exam:- >intubatedShould this be performed at the bedside?->YesFINAL REPORT Chest one view compared to June 04 Discussion: Support tubes, right IJ line, left chest pacemaker in place. Mild pulmonary congestion and probable left base atelectasis. No gross effusion or pneumothorax. IMPRESSIONS: No change. ET tube tip probably 1.3 cm from thecarina. Signed: Jerel Noguera MDReport Verified Date/Time: 06/05/2017 07:34:54 Reading Location: [facility] Radiology Reading Room POCT-GLUCOSE [id number] 06:35:00 Test Item Value Reference Range Interpretation Comments POC-GLUCOSE METER 209 mg/dL 70-110 H TESTED AT [facility] 6720 (BEAKER) (test code = MIKY [place] 1538) [address] BLOOD [id number] 06:00:00 Test Item Value Reference Range Interpretation Comments CULTURE (BEAKER) (test No growth in 5 days code = 1095) BLOOD [id number] 06:00:00 Test Item Value Reference Range Interpretation Comments CULTURE (BEAKER) (test No growth in 5 days code = 1095) CREATINE KINASE (CK), TOTAL AND [id number] 05:23:00 Test Item Value Reference Range Interpretation Comments CREATINE KINASE TOTAL (BEAKER) 52 U/L 29-200 (test code = 380) CREATINE KINASE-MB (BEAKER) (test 0.4 ng/mL 0.0-6.6 code = 750) CREATINE KINASE-MB INDEX (BEAKER) 0.8 % (test code = 395) CK-MB Reference Range:<6.7 Normal6.7-10.0 Borderline>10.0 [id number] 05:16:00 Test Item Value Reference Range Interpretation Comments PHOSPHORUS (BEAKER) (test code = 2.9 mg/dL 2.3-4.7 604) [id number] 05:16:00 Test Item Value Reference Range Interpretation Comments MAGNESIUM (BEAKER) (test code = 1.4 mg/dL 1.6-2.6 L 627) BASIC METABOLIC [id number] 05:16:00 Test Item Value Reference Range Interpretation [...] PATIEN TS. CBC W/PLT COUNT & AUTO [id number] 05:08:00 Test Item Value Reference Range Interpretation [...] code = 2801) LACTIC ACID, VENOUS, WHOLE [id number] 05:07:00 Test Item Value Reference Range Interpretation Comments LACTATE BLOOD VENOUS (2) (BEAKER) 1.1 mmol/L 0.5-2.2 (test code = 2872) Effective 06/10/2015: Units/Reference Range ChangeNew: 0.5-2.2 mmol/L Previous: 5-20 mg/dLPOCT-GLUCOSE [id number] 00:49:00 Test Item Value Reference Range Interpretation Comments POC-GLUCOSE METER 205 mg/dL 70-110 H TESTED AT [facility] 67 ([facility]) (test code = [facility] Estuardo [facility] 1538) [address] POCT-GLUCOSE [id number] 17:29:00 Test Item Value Reference Range Interpretation Comments POC-GLUCOSE METER 211 mg/dL 70-110 H TESTED AT [place] [address] (BANNER) (test code = [facility] 1538) [address] CREATINE KINASE (CK), TOTAL AND [id number] 16:23:00 Test Item Value Reference Range Interpretation Comments CREATINE KINASE TOTAL (BEAKER) 89 U/L 29-200 (test code = 380) CREATINE KINASE-MB (BEAKER) (test 0.8 ng/mL 0.0-6.6 code = 750) CREATINE KINASE-MB INDEX (BEAKER) 0.9 % (test code = 395) CK-MB Reference Range:<6.7 Normal6.7-10.0 Borderline>10.0 AbnormalBASIC METABOLIC [id number] 16:17:00 Test Item Value Reference Range Interpretation [...] mg/dL 8.4-10.2 (test code = 697) EGFR (BANNER) (test 93 mL/min/1.73 ESTIMA JOEL GFR IS code = 1092) sq m NOT ACCURATE CREATININE CLEARANCE IN PREDICTING GLOMERULAR FILTRATION RATE . ESTIMATED GFR I S NOT APPLICABLE FOR DIALYSIS PATIEN TS. CT, BRAIN, WITHOUT [id number] 15:33:00FINAL REPORT CT Head without contrast CLINICAL [...] MDReport Verified Date/Time: 06/04/2017 15:33:02 Reading Location: [facility] C013V Neuro Reading Room Electronicallysigned by: LISA HARDY M.D. on 06/04/2017 03:33 PMPOCT-GLUCOSE [id number] 13:13:00 Test Item Value Reference Range Interpretation Comments POC-GLUCOSE METER 271 mg/dL 70-110 H TESTED AT [facility] 6720 (BANNER) (test code = MIKY Estuardo [facility] 1538) [address] SPUTUM CULTURE + GRAM [id number] 11:40:00 Test Item Value Reference Interpretation Comments Range CULTURE (BANNER) METHICILLIN A 1+ Methicil gaurav (test code [...] 0-5 epithelial (BEAKER) (test code = cells 523837) GRAM STAIN RESULT No organisms seen (BEAKER) (test code = 616741) 1+ Normal respiratory melanie presentCREATINE KINASE (CK), TOTAL AND [id number] 09:49:00 Test Item Value Reference Range Interpretation Comments CREATINE KINASE TOTAL (BEAKER) 61 U/L 29-200 (test code = 380) CREATINE KINASE-MB (BEAKER) (test 0.7 ng/mL 0.0-6.6 code = 750) CREATINE KINASE-MB INDEX (BEAKER) 1.1 % (test code = 395) CK-MB Reference Range:<6.7 Normal6.7-10.0 Borderline>10.0 AbnormalBASIC METABOLIC [id number] 09:43:00 Test Item Value Reference Range Interpretation [...] DIALYSIS PATIEN TS. LACTIC ACID, VENOUS, WHOLE [id number] 09:38:00 Test Item Value Reference Range Interpretation Comments LACTATE BLOOD VENOUS (2) (BEAKER) 0.8 mmol/L 0.5-2.2 (test code = 2872) Effective 06/10/2015: Units/Reference Range ChangeNew: 0.5-2.2 mmol/L Previous: 5-20 mg/dLPOCT-GLUCOSE [id number] 06:06:00 Test Item Value Reference Range Interpretation Comments POC-GLUCOSE METER 133 mg/dL 70-110 H TESTED AT [facility] 6720 (BEAKER) (test code = MIKY [place] 1538) [address] BLOOD GAS, [id number] 05:21:00 Test Item Value Reference Range Interpretation [...] (BEAKER) (test code = 1819) 50.0 % [id number] 05:12:00 Test Item Value Reference Range Interpretation Comments PHOSPHORUS (BEAKER) (test code = 2.9 mg/dL 2.3-4.7 604) [id number] 05:12:00 Test Item Value Reference Range Interpretation Comments MAGNESIUM (BEAKER) (test code = 1.8 mg/dL 1.6-2.6 627) CBC W/PLT COUNT & AUTO [id number] 04:33:00 Test Item Value Reference Range Interpretation [...] = 2801) RAD, CHEST, 1 VIEW, NON [id number] 04:20:00Reason for exam:->ventedShould this be performed at [...] No evidence of a pneumothorax. Signed: Raoul Pateleport Verified Date/Time: 06/04/2017 04:20:06 Reading Location: [address] Reading Room CREATINE KINASE (CK), TOTAL AND [id number] 00:29:00 Test Item Value Reference Range Interpretation Comments CREATINE KINASE TOTAL (BEAKER) 43 U/L 29-200 (test code = 380) CREATINE KINASE-MB (BEAKER) (test 0.6 ng/mL 0.0-6.6 code = 750) CREATINE KINASE-MB INDEX (BEAKER) 1.4 % (test code = 395) CK-MB Reference Range:<6.7 Normal6.7-10.0 Borderline>10.0 AbnormalBASIC METABOLIC [id number] 00:23:00 Test Item Value Reference Range Interpretation [...] NOT APPLICABLE FOR DIALYSIS PATIEN TS. POCT-GLUCOSE [id number] 00:06:00 Test Item Value Reference Range Interpretation Comments POC-GLUCOSE METER 116 mg/dL 70-110 H TESTED AT [facility] 6720 (BEAKER) (test code = [place] 1538) [address] HEMOGLOBIN AND [id number] 00:01:00 Test Item Value Reference Range Interpretation Comments HEMOGLOBIN (BEAKER) (test code = 7.8 GM/DL 13.7-17.5 L 410) HEMATOCRIT (BEAKER) (test code = 25.1 % 40.1-51.0 L 411) RAD, ABDOMEN/KUB, 1 VIEW [id number] 23:47:00Reason for exam:->s/p corpak placementFINAL REPORT EXAMINATION: [...] MDReport Verified Date/Time: 06/03/2017 23:47:47 Reading Location: [address] Reading Room BLOOD GAS, [id number] 19:32:00 Test Item Value Reference Range Interpretation [...] 60.0 % RAD, CHEST, 1 VIEW, NON [id number] 17:52:00Reason for exam:- >intubationShould this be performed [...] MDReport Verified Date/Time: 06/03/2017 17:52:43 Reading Location: [address] Reading Room POCT-GLUCOSE [id number] 17:46:00 Test Item Value Reference Range Interpretation Comments POC-GLUCOSE METER 134 mg/dL 70-110 H TESTED AT [facility] 6720 (BANNER) (test code = MIKY Marte [place] 1538) [address] CREATINE KINASE (CK), TOTAL AND [id number] 15:27:00 Test Item Value Reference Range Interpretation Comments CREATINE KINASE TOTAL (BANNER) 67 U/L 29-200 (test code = 380) CREATINE KINASE-MB (BANNER) (test 0.7 ng/mL 0.0-6.6 code = 750) CREATINE KINASE-MB INDEX (BANNER) 1.0 % (test code = 395) CK-MB Reference Range:<6.7 Normal6.7-10.0 Borderline>10.0 AbnormalBASIC METABOLIC [id number] 15:20:00 Test Item Value Reference Range Interpretation [...] APPLICABLE FOR DIALYSIS PATIEN TS. HEPATITIS A [id number] 15:03:00 Test Item Value Reference Range Interpretation Comments HEPATITIS A IGM ANTIBODY (BEAKER) Nonreactive Nonreactive (test code = 498) HEPATITIS A IGG ANTIBODY (BEAKER) Reactive Nonreactive A (test code = 2797) HEMOGLOBIN AND [id number] 15:02:00 Test Item Value Reference Range Interpretation Comments HEMOGLOBIN (BEAKER) (test code = 8.9 GM/DL 13.7-17.5 L 410) HEMATOCRIT (BEAKER) (test code = 29.0 % 40.1-51.0 L 411) BLOOD GAS, [id number] 15:01:00 Test Item Value Reference Range Interpretation [...] code = 1819) 32.0 % HEPATITIS C [id number] 14:58:00 Test Item Value Reference Range Interpretation Comments HEPATITIS C ANTIBODY (BEAKER) Nonreactive Nonreactive (test code = 367) HEPATITIS B [id number] 14:58:00 Test Item Value Reference Range Interpretation Comments HEPATITIS B CORE TOTAL ANTIBODY Nonreactive Nonreactive (BEAKER) (test code = 497) HEPATITIS B SURFACE ANTIBODY 22.2 mIU/mL <8.0 H (BEAKER) (test code = 647) HEPATITIS B SURFACE ANTIGEN (2) Nonreactive Nonreactive (BEAKER) (test code = 2585) POCT-GLUCOSE [id number] 11:57:00 Test Item Value Reference Range Interpretation Comments POC-GLUCOSE METER 228 mg/dL 70-110 H TESTED AT [facility] 6720 (BEAKER) (test code = BALALEELA [place] 1538) [address] BLOOD GAS, [id number] 11:12:00 Test Item Value Reference Range Interpretation [...] (test code = 1819) 40.0 % HEMOGLOBIN [id number] 10:39:00 Test Item Value Reference Range Interpretation Comments HEMOGLOBIN A1C (BEAKER) (test code = 5.5 % 4.3-6.1 368) CREATINE KINASE (CK), TOTAL AND [id number] 08:26:00 Test Item Value Reference Range Interpretation Comments CREATINE KINASE TOTAL (BEAKER) 72 U/L 29-200 (test code = 380) CREATINE KINASE-MB (BEAKER) (test 0.9 ng/mL 0.0-6.6 code = 750) CREATINE KINASE-MB INDEX (BEAKER) 1.3 % (test code = 395) CK-MB Reference Range:<6.7 Normal6.7-10.0 Borderline>10.0 AbnormalBASIC METABOLIC [id number] 08:20:00 Test Item Value Reference Range Interpretation [...] PATIEN TS. RAD, CHEST, 1 VIEW, NON [id number] 08:05:00Reason for exam:->ventedShould this be performed at the bedside?->YesFINAL REPORT Chest, one view. HISTORY: Vented COMPARISON: 06/02/2017 IMPRESSION: Supporting hardware unchanged in position. Mild interstitial edema. Unchanged enlargement of the cardiomediastinal silhouette. Trace left pleural effusion. No identifiable pneumothorax. Signed: Venu Holmanort Verified Date/Time: 06/03/2017 08:05:13 Reading Location: [address] Body Reading Room GLOBIN AND [id number] 07:52:00 Test Item Value Reference Range Interpretation Comments HEMOGLOBIN (BEAKER) (test code = 8.7 GM/DL 13.7-17.5 L 410) HEMATOCRIT (BEAKER) (test code = 27.6 % 40.1-51.0 L 411) POCT-GLUCOSE [id number] 06:48:00 Test Item Value Reference Range Interpretation Comments POC-GLUCOSE METER 281 mg/dL 70-110 H TESTED AT [facility] 6720 (BEAKER) (test code = MIKY [place] 1538) [address] BLOOD GAS, [id number] 05:52:00 Test Item Value Reference Range Interpretation [...] code = 1819) 40.0 % BASIC METABOLIC [id number] 05:47:00 Test Item Value Reference Range Interpretation [...] PATIEN TS. CBC W/PLT COUNT & AUTO [id number] 05:40:00 Test Item Value Reference Range Interpretation [...] 0-1 PERCENT (BEAKER) (test code = 2801) [id number] 05:37:00 Test Item Value Reference Range Interpretation Comments PHOSPHORUS (BEAKER) (test code = 2.5 mg/dL 2.3-4.7 604) [id number] 05:37:00 Test Item Value Reference Range Interpretation Comments MAGNESIUM (BEAKER) (test code = 1.8 mg/dL 1.6-2.6 627) BASIC METABOLIC [id number] 00:57:00 Test Item Value Reference Range Interpretation [...] PATIEN TS. CREATINE KINASE (CK), TOTAL AND [id number] 00:55:00 Test Item Value Reference Range Interpretation Comments CREATINE KINASE TOTAL (BEAKER) 61 U/L 29-200 (test code = 380) CREATINE KINASE-MB (BEAKER) (test 0.8 ng/mL 0.0-6.6 code = 750) CREATINE KINASE-MB INDEX (BEAKER) 1.3 % (test code = 395) CK-MB Reference Range:<6.7 Normal6.7-10.0 Borderline>10.0 AbnormalHEMOGLOBIN AND [id number] 00:39:00 Test Item Value Reference Range Interpretation Comments HEMOGLOBIN (BEAKER) (test code = 8.2 GM/DL 13.7-17.5 L 410) HEMATOCRIT (BEAKER) (test code = 25.8 % 40.1-51.0 L 411) POCT-GLUCOSE [id number] 00:38:00 Test Item Value Reference Range Interpretation Comments POC-GLUCOSE METER 289 mg/dL 70-110 H TESTED AT [place] [address] (BANNER) (test code = MIKY Marte [place] 1538) [address] BASIC METABOLIC [id number] 19:04:00 Test Item Value Reference Range Interpretation [...] NOT APPLICABLE FOR DIALYSIS PATIEN TS. POCT-GLUCOSE [id number] 17:54:00 Test Item Value Reference Range Interpretation Comments POC-GLUCOSE METER 185 mg/dL 70-110 H TESTED AT [facility] 6720 ([facility]) (test code = [facility] Estuardo [place] 1538) [address] POCT-GLUCOSE [id number] 17:06:00 Test Item Value Reference Range Interpretation Comments POC-GLUCOSE METER 171 mg/dL 70-110 H TESTED AT [facility] 6720 (BEAKER) (test code = MIKY Marte [place] 1538) [address] CREATINE KINASE (CK), TOTAL AND [id number] 16:32:00 Test Item Value Reference Range Interpretation Comments CREATINE KINASE TOTAL (BEAKER) 77 U/L 29-200 (test code = 380) CREATINE KINASE-MB (BEAKER) (test 0.7 ng/mL 0.0-6.6 code = 750) CREATINE KINASE-MB INDEX (BEAKER) 0.9 % (test code = 395) CK-MB Reference Range:<6.7 Normal6.7-10.0 Borderline>10.0 AbnormalBASIC METABOLIC [id number] 16:28:00 Test Item Value Reference Range Interpretation [...] NOT APPLICABLE FOR DIALYSIS PATIEN TS. POCT-GLUCOSE [id number] 16:24:00 Test Item Value Reference Range Interpretation Comments POC-GLUCOSE METER 172 mg/dL 70-110 H TESTED AT [facility] 6720 (BEAKER) (test code = MIKY Marte [place] 1538) [address] POCT-GLUCOSE [id number] 15:30:00 Test Item Value Reference Range Interpretation Comments POC-GLUCOSE METER 192 mg/dL 70-110 H TESTED AT [facility] 67[address] ([place]NER) (test code = MIKY [place] 1538) [address] URINE [id number] 14:28:00 Test Item Value Reference Range Interpretation Comments CULTURE (BANNER) (test code = 1095) No growth POCT-GLUCOSE [id number] 14:10:00 Test Item Value Reference Range Interpretation Comments POC-GLUCOSE METER 183 mg/dL 70-110 H TESTED AT [facility] 67[address] ([place]NER) (test code = MIKY [place] 1538) [address] POCT-GLUCOSE [id number] 14:10:00 Test Item Value Reference Range Interpretation Comments POC-GLUCOSE METER 191 mg/dL 70-110 H TESTED AT [facility] 67 (BANNER) (test code = MIKY Marte [place] 1538) [address] RAD, ABDOMEN/KUB, 1 VIEW [id number] 13:03:00Reason for exam:->dobbhoff tube placementFINAL REPORT Abdomen one view INDICATION: Dobbhoff tube placement COMPARISON:05/30/2017 IMPRESSION: Feeding tube tip extends to the distal stomach. Suggest advancing. The bowel gas pattern is nonspecific. Cholecystectomy clips, degenerative spine changes, and vascular calcifications and stents are noted. The imaged lower chest is similar to earlier today. Signed: Tanisha Montalvo Verified Date/Time: 06/02/2017 13:03:48 Reading Location: [facility] Radiology Reading Room POCT- GLUCOSE [id number] 11:56:00 Test Item Value Reference Range Interpretation Comments POC-GLUCOSE METER 123 mg/dL 70-110 H TESTED AT [facility] 67[address] ([place]NER) (test code = MIKY Marte [place] 1538) [address] POCT-GLUCOSE [id number] 10:58:00 Test Item Value Reference Range Interpretation Comments POC-GLUCOSE METER 206 mg/dL 70-110 H TESTED AT [facility] 6720 (BANNER) (test code = MIKY Marte [place] 1538) [address] HEMOGLOBIN AND [id number] 10:38:00 Test Item Value Reference Range Interpretation Comments HEMOGLOBIN (BEAKER) (test code = 8.9 GM/DL 13.7-17.5 L 410) HEMATOCRIT (BEAKER) (test code = 28.7 % 40.1-51.0 L 411) [id number] 09:04:00 Test Item Value Reference Range Interpretation Comments GLUCOSE RANDOM (BEAKER) (test code 230 mg/dL 70-105 H = 652) CREATINE KINASE (CK), TOTAL AND [id number] 08:55:00 Test Item Value Reference Range Interpretation Comments CREATINE KINASE TOTAL (BEAKER) 96 U/L 29-200 (test code = 380) CREATINE KINASE-MB (BEAKER) (test 1.0 ng/mL 0.0-6.6 code = 750) CREATINE KINASE-MB INDEX (BEAKER) 1.0 % (test code = 395) CK-MB Reference Range:<6.7 Normal6.7-10.0 Borderline>10.0 AbnormalTROPONIN [id number] 08:55:00 Test Item Value Reference Range Interpretation [...] failure, acidosis, acute neurological disease, and persistent tachyarrhythmia.[id number] 08:42:00 Test Item Value Reference Range Interpretation Comments AMMONIA (BEAKER) (test code = 348) 52 mol/L 18-72 POCT-GLUCOSE [id number] 06:16:00 Test Item Value Reference Range Interpretation Comments POC-GLUCOSE METER 213 mg/dL 70-110 H TESTED AT [facility] 67[address] (B[place]NER) (test code = BALALEELA [place] 1538) [address] BLOOD GAS, [id number] 05:52:00 Test Item Value Reference Range Interpretation Comments PH ARTERIAL (BEAKER) (test code = 7.46 7.35-7.45 H 383) PCO2 ARTERIAL (AKER) (test code 32 mmHg 35-45 L = [...] code = 1819) 40.0 % COMPREHENSIVE METABOLIC [id number] 05:41:00 Test Item Value Reference Range Interpretation [...] S NOT APPLICABLE FOR DIALYSIS PATIEN TS. [id number] 05:35:00 Test Item Value Reference Range Interpretation Comments PHOSPHORUS (BEAKER) (test code = 2.7 mg/dL 2.3-4.7 604) [id number] 05:35:00 Test Item Value Reference Range Interpretation Comments MAGNESIUM (BEAKER) (test code = 2.0 mg/dL 1.6-2.6 627) CBC W/PLT COUNT & AUTO [id number] 05:23:00 Test Item Value Reference Range Interpretation [...] = 2801) RAD, CHEST, 1 VIEW, NON [id number] 04:41:00Reason for exam:->ventedShould this be performed at [...] no significant interval change. Signed: Raoul Patel MDRepchildren[facility] Verified Date/Time: 06/02/2017 04:41:51 Reading Location: [address] Reading Room CREATINE KINASE (CK), TOTAL AND [id number] 01:02:00 Test Item Value Reference Range Interpretation Comments CREATINE KINASE TOTAL (BEAKER) 109 U/L 29-200 (test code = 380) CREATINE KINASE-MB (BEAKER) (test 1.0 ng/mL 0.0-6.6 code = 750) CREATINE KINASE-MB INDEX (BEAKER) 0.9 % (test code = 395) CK-MB Reference Range:<6.7 Normal6.7-10.0 Borderline>10.0 AbnormalTROPONIN [id number] 01:02:00 Test Item Value Reference Range Interpretation [...] acidosis, acute neurological disease, and persistent tachyarrhythmia.POCT-GLUCOSE [id number] 00:25:00 Test Item Value Reference Range Interpretation Comments POC-GLUCOSE METER 234 mg/dL 70-110 H TESTED AT [facility] 67 [facility] (test code = MIKY [place] 1538) [address] [id number] 22:40:00 Test Item Value Reference Range Interpretation Comments MAGNESIUM (MOY) (test code = 2.0 mg/dL 1.6-2.6 627) PROTHROMBIN TIME/[id number] 22:34:00 Test Item Value Reference Range Interpretation Comments PROTIME (MOY) (test code = 18.0 seconds 11.7-14.7 H 759) INR (MOY) (test code = 370) 1.5 <=5.9 RECOMMENDED COUMADIN/WARFARIN INR THERAPY RANGESSTANDARD DOSE: 2.0 - 3.0 Includes: PROPHYLAXIS forvenous thrombosis, systemic embolization; TREATMENT for venous thrombosis and/or pulmonary embolus.HIGH RISK: Target INR is 2.5-3.5 for patients with mechanical heart valves.HEMOGLOBIN AND [id number] 22:27:00 Test Item Value Reference Range Interpretation Comments HEMOGLOBIN (MOY) (test code = 8.3 GM/DL 13.7-17.5 L 410) HEMATOCRIT (MOY) (test code = 25.9 % 40.1-51.0 L 411) POCT-GLUCOSE [id number] 18:46:00 Test Item Value Reference Range Interpretation Comments POC-GLUCOSE METER 318 mg/dL 70-110 H Notified Estuardo Natarajan MD/TESTED (MOY) (test code = AT [facility] [address] 1538) [place] [address] CREATINE KINASE (CK), TOTAL AND [id number] 18:06:00 Test Item Value Reference Range Interpretation Comments CREATINE KINASE TOTAL (BEAKER) 155 U/L 29-200 (test code = 380) CREATINE KINASE-MB (BEAKER) (test 1.2 ng/mL 0.0-6.6 code = 750) CREATINE KINASE-MB INDEX (BEAKER) 0.8 % (test code = 395) CK-MB Reference Range:<6.7 Normal6.7-10.0 Borderline>10.0 AbnormalTROPONIN [id number] 18:06:00 Test Item Value Reference Range Interpretation [...] acute neurological disease, and persistent tachyarrhythmia.HEMOGLOBIN AND [id number] 17:41:00 Test Item Value Reference Range Interpretation Comments HEMOGLOBIN (BEAKER) (test code = 8.7 GM/DL 13.7-17.5 L 410) HEMATOCRIT (BEAKER) (test code = 27.0 % 40.1-51.0 L 411) RAD, CHEST, 1 VIEW, NON [id number] 17:39:00Reason for exam:->central line placement Should this be performed at the bedside?->YesFINAL REPORT AP view of the chest dated 06/01/2017 COMPARISON: June 01, 2009 18 CLINICAL INFORMATION: central line placement Comment: Since prior examination, there is intervalplacement of a right IJ central venous catheter. No pneumothorax is noted. No other changes are seenin the chest. Signed: Eden Carias Verified Date/Time: 06/01/2017 17:39:56 Reading Location: [facility] C0[facility] Consult Reading Room BASIC METABOLIC [id number] 13:20:00 Test Item Value Reference Range Interpretation [...] NOT APPLICABLE FOR DIALYSIS PATIEN TS. TROPONIN [id number] 13:20:00 Test Item Value Reference Range Interpretation [...] Range:<6.7 Normal6.7-10.0 Borderline>10.0 AbnormalLACTIC ACID, VENOUS, WHOLE [id number] 12:45:00 Test Item Value Reference Range Interpretation Comments LACTATE BLOOD VENOUS (2) (BEAKER) 0.8 mmol/L 0.5-2.2 (test code = 2872) Effective 06/10/2015: Units/Reference Range ChangeNew: 0.5-2.2 mmol/L Previous: 5-20 mg/dLPT/[id number] 12:29:00 Test Item Value Reference Range Interpretation [...] 2.5-3.5 for patients with mechanical heart valves.POCT-GLUCOSE [id number] 12:28:00 Test Item Value Reference Range Interpretation Comments POC-GLUCOSE METER 180 mg/dL 70-110 H TESTED AT [facility] 6720 (BEAKER) (test code = MIKY [place] 1530) [address] BLOOD GAS, [id number] 12:24:00 Test Item Value Reference Range Interpretation [...] code = 1819) 40.0 % HEMOGLOBIN AND [id number] 12:20:00 Test Item Value Reference Range Interpretation Comments HEMOGLOBIN (BEAKER) (test code = 7.4 GM/DL 13.7-17.5 L 410) HEMATOCRIT (BANNER) (test code = 23.2 % 40.1-51.0 L 411) POCT-GLUCOSE [id number] 11:20:00 Test Item Value Reference Range Interpretation Comments POC-GLUCOSE METER 113 mg/dL 70-110 H TESTED AT [place] [address] (BANNER) (test code = MIKY Marte [facility] 1538) [address] POCT-GLUCOSE [id number] 11:20:00 Test Item Value Reference Range Interpretation Comments POC-GLUCOSE METER 73 mg/dL 70-110 TESTED AT [place] [address] (BANNER) (test code = MIKY Marte [facility] [address] 1538) RAD, CHEST, 1 VIEW, NON [id number] 08:21:00Reason for exam:->acess for pulmonary edemaShould this [...] No pneumothorax is seen. Signed: Tanisha Montalvo [facility] Verified Date/Time: 06/01/2017 08:21:22 Reading Location: [facility] Radiology Reading Room POCT-GLUCOSE [id number] 07:34:00 Test Item Value Reference Range Interpretation Comments POC-GLUCOSE METER 126 mg/dL 70-110 H TESTED AT [facility] 67 (BANNER) (test code = MIKY Marte [facility] 1538) [address] POCT-GLUCOSE [id number] 06:58:00 Test Item Value Reference Range Interpretation Comments POC-GLUCOSE METER 171 mg/dL 70-110 H TESTED AT [place] [address] (BANNER) (test code = MIKY Marte [facility] 1538) [address] POCT-GLUCOSE [id number] 06:58:00 Test Item Value Reference Range Interpretation Comments POC-GLUCOSE METER 210 mg/dL 70-110 H TESTED AT [facility] 6720 (BEAKER) (test code = MIKY [place] 1538) [address] BASIC METABOLIC [id number] 05:04:00 Test Item Value Reference Range Interpretation [...] NOT APPLICABLE FOR DIALYSIS PATIEN TS. TROPONIN [id number] 05:02:00 Test Item Value Reference Range Interpretation [...] = 395) CK-MB Reference Range:<6.7 Normal6.7-10.0 Borderline>10.0 [id number] 04:52:00 Test Item Value Reference Range Interpretation Comments PHOSPHORUS (BEAKER) (test code = 3.1 mg/dL 2.3-4.7 604) [id number] 04:52:00 Test Item Value Reference Range Interpretation Comments MAGNESIUM (BEAKER) (test code = 2.3 mg/dL 1.6-2.6 627) LACTIC ACID, VENOUS, WHOLE [id number] 04:45:00 Test Item Value Reference Range Interpretation Comments LACTATE BLOOD VENOUS (2) (AKER) 1.9 mmol/L 0.5-2.2 (test code = 2872) Effective 06/10/2015: Units/Reference Range ChangeNew: 0.5-2.2 mmol/L Previous: 5-20 mg/dLPOCT-GLUCOSE [id number] 03:55:00 Test Item Value Reference Range Interpretation Comments POC-GLUCOSE METER 175 mg/dL 70-110 H TESTED AT [place] [address] (BANNER) (test code = MIKY Marte [facility] 1538) [address] POCT-GLUCOSE [id number] 03:55:00 Test Item Value Reference Range Interpretation Comments POC-GLUCOSE METER 83 mg/dL 70-110 TESTED AT [place] [address] (BANNER) (test code = MIKY Marte [facility] [address] 1538) CBC W/PLT COUNT & AUTO [id number] 02:01:00 Test Item Value Reference Range Interpretation Comments WHITE BLOOD CELL COUNT (BEAKER) 14.4 K/ L 3.5-10.5 H (test code = 775) RED BLOOD CELL COUNT (AKER) 2.62 M/ L 4.63-6.08 L (test code = 761) HEMOGLOBIN (BEAKER) (test code = 8.2 GM/DL 13.7-17.5 L 410) HEMATOCRIT (BANNER) (test code = 25.5 % 40.1-51.0 L [...] code = 2801) LACTIC ACID, VENOUS, WHOLE [id number] 22:35:00 Test Item Value Reference Range Interpretation Comments LACTATE BLOOD VENOUS 1.2 mmol/L 0.5-2.2 Specime n slightly (2) (BEAKER) (test hemolyzed code = 2872) Effective 06/10/2015: Units/Reference Range ChangeNew: 0.5-2.2 mmol/L Previous: 5-20 mg/dLHEMOGLOBIN AND [id number] 22:12:00 Test Item Value Reference Range Interpretation Comments HEMOGLOBIN (BANNER) (test code = 7.7 GM/DL 13.7-17.5 L 410) HEMATOCRIT (BANNER) (test code = 24.0 % 40.1-51.0 L 411) POCT-GLUCOSE [id number] 21:02:00 Test Item Value Reference Range Interpretation Comments POC-GLUCOSE METER 131 mg/dL 70-110 H TESTED AT [place] [address] (BANNER) (test code = MIKY Marte [facility] 1538) [address] POCT-GLUCOSE [id number] 19:57:00 Test Item Value Reference Range Interpretation Comments POC-GLUCOSE METER 159 mg/dL 70-110 H TESTED AT [place] [address] (BANNER) (test code = BALAFL Estuardo [facility] 1538) [address] POCT-GLUCOSE [id number] 18:42:00 Test Item Value Reference Range Interpretation Comments POC-GLUCOSE METER 186 mg/dL 70-110 H TESTED AT [place] [address] (BANNER) (test code = [facility] Estuardo [facility] 1538) [address] POCT-GLUCOSE [id number] 18:33:00 Test Item Value Reference Range Interpretation Comments POC-GLUCOSE METER 181 mg/dL 70-110 H TESTED AT [place] [address] (BANNER) (test code = BALAFL Estuardo [facility] 1538) [address] POCT-GLUCOSE [id number] 18:33:00 Test Item Value Reference Range Interpretation Comments POC-GLUCOSE METER 226 mg/dL 70-110 H TESTED AT [place] [address] (BANNER) (test code = [facility] Estuardo [facility] 1538) [address] POCT-GLUCOSE [id number] 18:33:00 Test Item Value Reference Range Interpretation Comments POC-GLUCOSE METER 257 mg/dL 70-110 H TESTED AT [place] [address] (BANNER) (test code = [facility] [employer] [facility] 1538) [address] TROPONIN [id number] 18:15:00 Test Item Value Reference Range Interpretation Comments TROPONIN I (BANNER) (test code = 0.16 ng/mL 0.00-0.03 H [...] CK-MB Reference Range:<6.7 Normal6.7-10.0 Borderline>10.0 AbnormalBLOOD GAS, [id number] 17:57:00 Test Item Value Reference Range Interpretation [...] code = 1819) 40.0 % HEMOGLOBIN AND [id number] 17:47:00 Test Item Value Reference Range Interpretation Comments HEMOGLOBIN (BEAKER) (test code = 7.7 GM/DL 13.7-17.5 L 410) HEMATOCRIT (BEAKER) (test code = 23.3 % 40.1-51.0 L 411) EEG AWAKE/ASLEEP AND [id number] 17:06:00Reason for exam:->syncopal episode r/o seizure activityShould this be performed at the bedside?->Yes Date(s) of EE05/31/17ACC: [id number] Number: [id number] Location: Inpatient ICUStart time: 16:25Stop time: 16:46ICD-10: G93.40CPT Code: 98416 HISTORY: 82 years-old with GI bleed and [...] well as with other [place] widespread, non-metabolic TEAM CDL DRIVER insults (such as trauma or aftermath of significant seizures). Jovanny Montanez M.D.Neurophysiology Fellow, PGY5 Rikki Zayas M.D.Clinical Neurophysiology/Epilepsy Attending RAD, CHEST, 1 VIEW, NON [id number] 16:55:00Reason for exam:->Post intubationShould this be performed [...] MDReport Verified Date/Time: 05/31/2017 16:55:11 Reading Location: [facility] B1 C013W Consult Reading Room HEMOGLOBIN [id number] 15:51:00 Test Item Value Reference Range Interpretation Comments HEMOGLOBIN A1C (BEAKER) (test code = 6.1 % 4.3-6.1 368) POCT-GLUCOSE [id number] 15:03:00 Test Item Value Reference Range Interpretation Comments POC-GLUCOSE METER 150 mg/dL 70-110 H TESTED AT [facility] 6720 (BEAKER) (test code = MIKY [place] 1538) [address] BASIC METABOLIC [id number] 13:41:00 Test Item Value Reference Range Interpretation [...] S NOT APPLICABLE FOR DIALYSIS PATIEN TS. [id number] 13:34:00 Test Item Value Reference Range Interpretation Comments PHOSPHORUS (BEAKER) (test code = 4.0 mg/dL 2.3-4.7 604) [id number] 13:34:00 Test Item Value Reference Range Interpretation Comments MAGNESIUM (BEAKER) (test code = 2.2 mg/dL 1.6-2.6 627) LACTIC ACID, VENOUS, WHOLE [id number] 13:20:00 Test Item Value Reference Range Interpretation Comments LACTATE BLOOD VENOUS (2) (BEAKER) 1.8 mmol/L 0.5-2.2 (test code = 2872) Effective 06/10/2015: Units/Reference Range ChangeNew: 0.5-2.2 mmol/L Previous: 5-20 mg/dLCBC W/PLT COUNT & AUTO [id number] 13:08:00 Test Item Value Reference Range Interpretation [...] (BEAKER) (test code = 2801) HEMOGLOBIN AND [id number] 13:00:00 Test Item Value Reference Range Interpretation Comments HEMOGLOBIN (BEAKER) (test code = 8.3 GM/DL 13.7-17.5 L 410) HEMATOCRIT (BEAKER) (test code = 25.3 % 40.1-51.0 L 411) POCT-GLUCOSE [id number] 12:13:00 Test Item Value Reference Range Interpretation Comments POC-GLUCOSE METER 119 mg/dL 70-110 H TESTED AT [place] [address] ([facility]) (test code = [place] 1538) [id number] POCT-GLUCOSE [id number] 12:13:00 Test Item Value Reference Range Interpretation Comments POC-GLUCOSE METER 150 mg/dL 70-110 H TESTED AT [place] [address] ([place]) (test code = [place] 1538) [address] POCT-GLUCOSE [id number] 12:13:00 Test Item Value Reference Range Interpretation Comments POC-GLUCOSE METER 211 mg/dL 70-110 H TESTED AT [place] [address] ([place]) (test code = [place] 1538) [id number] POCT-GLUCOSE [id number] 12:13:00 Test Item Value Reference Range Interpretation Comments POC-GLUCOSE METER 272 mg/dL 70-110 H TESTED AT [place] [address] ([place]) (test code = [place] 1538) [id number] B-TYPE NATRIURETIC FACTOR (BNP)2017-05-31 08:12:00 Test Item Value Reference Range Interpretation Comments B-TYPE NATRIURETIC PEPTIDE (BEAKER) 558 pg/mL 0-100 H (test code = 700) CREATINE KINASE (CK), TOTAL AND [id number] 07:37:00 Test Item Value Reference Range Interpretation Comments CREATINE KINASE TOTAL (BEAKER) 560 U/L 29-200 H (test code = 380) CREATINE KINASE-MB (BEAKER) (test 4.9 ng/mL 0.0-6.6 code = 750) CREATINE KINASE-MB INDEX (BEAKER) 0.9 % (test code = 395) CK-MB Reference Range:<6.7 Normal6.7-10.0 Borderline>10.0 AbnormalTROPONIN [id number] 07:37:00 Test Item Value Reference Range Interpretation [...] failure, acidosis, acute neurological disease, and persistent tachyarrhythmia.[id number] 07:26:00 Test Item Value Reference Range Interpretation Comments ETHANOL (NICO) (test code = 400) < mg/dL <=10 POCT-GLUCOSE [id number] 06:52:00 Test Item Value Reference Range Interpretation Comments POC-GLUCOSE METER 284 mg/dL 70-110 H TESTED AT [place] [address] ([place]) (test code = MIKY Marte [place] 1538) [address] POCT-GLUCOSE [id number] 05:47:00 Test Item Value Reference Range Interpretation Comments POC-GLUCOSE METER 406 mg/dL 70-110 HH TESTED AT [place] [address] ([place]) (test code = MIKY Marte [place] 1538) [id number] POCT-GLUCOSE [id number] 05:47:00 Test Item Value Reference Range Interpretation Comments POC-GLUCOSE METER 405 mg/dL 70-110 HH TESTED AT [facility] 6720 (BEAKER) (test code = MIKY Marte [facility] 1538) [id number] POCT-GLUCOSE [id number] 05:47:00 Test Item Value Reference Range Interpretation Comments POC-GLUCOSE METER 429 mg/dL 70-110 HH TESTED AT [facility] 67[address] (BEAKER) (test code = MIKY Marte [facility] 1538) [address] BASIC METABOLIC [id number] 04:02:00 Test Item Value Reference Range Interpretation [...] S NOT APPLICABLE FOR DIALYSIS PATIEN TS. [id number] 03:59:00 Test Item Value Reference Range Interpretation Comments PHOSPHORUS (BEAKER) (test code = 4.4 mg/dL 2.3-4.7 604) [id number] 03:59:00 Test Item Value Reference Range Interpretation Comments MAGNESIUM (BEAKER) (test code = 2.2 mg/dL 1.6-2.6 627) VANCOMYCIN LEVEL, [id number] 03:49:00 Test Item Value Reference Range Interpretation Comments VANCOMYCIN RANDOM (BEAKER) (test 19.0 ug/mL code = 523) Reference Range: No NormalsCBC W/PLT COUNT & AUTO [id number] 03:41:00 Test Item Value Reference Range Interpretation [...] 0-1 H PERCENT (BEAKER) (test code = 8381) LACTIC ACID, VENOUS, WHOLE [id number] 03:29:00 Test Item Value Reference Range Interpretation Comments LACTATE BLOOD VENOUS (2) (BEAKER) 3.1 mmol/L 0.5-2.2 H (test code = 2872) Effective 06/10/2015: Units/Reference Range ChangeNew: 0.5-2.2 mmol/L Previous: 5-20 mg/dLCALCIUM, [id number] 03:17:00 Test Item Value Reference Range Interpretation Comments CALCIUM IONIZED (BEAKER) (test 1.14 mmol/L 1.12-1.27 code = 698) PH, BLOOD (BEAKER) (test code = 7.31 1810) BASIC METABOLIC [id number] 23:39:00 Test Item Value Reference Range Interpretation [...] S NOT APPLICABLE FOR DIALYSIS PATIEN TS. [id number] 23:16:00 Test Item Value Reference Range Interpretation Comments AMMONIA (BEAKER) (test code = 348) 32 mol/L 18-72 HEPATIC FUNCTION [id number] 23:13:00 Test Item Value Reference Range Interpretation [...] 6-55 347) CBC W/PLT COUNT & AUTO [id number] 22:55:00 Test Item Value Reference Range Interpretation [...] 0-0 H (BEAKER) (test code = 413) [id number] 22:52:00 Test Item Value Reference Range Interpretation Comments MAGNESIUM (BEAKER) (test code = 2.4 mg/dL 1.6-2.6 627) [id number] 22:52:00 Test Item Value Reference Range Interpretation Comments PHOSPHORUS (BEAKER) (test code = 4.5 mg/dL 2.3-4.7 604) [id number] 22:49:00 Test Item Value Reference Range Interpretation Comments FIBRINOGEN LEVEL (BEAKER) (test 390 mg/dl 225-434 code = 658) RAD, ABDOMEN/KUB, 1 VIEW [id number] 22:46:00Reason for exam:->abdominal painShould this be performed [...] Sánchez Verified Date/Time: 05/30/2017 22:46:58 Reading Location: [facility] C0[facility] Consult Reading Room , CHEST, 1 VIEW, NON [id number] 22:45:00Post-intubationReason for exam:- >tachypneaShould this be performed [...] Verified Date/Time: 0 05/30/2017 22:45:22 Reading Location: [facility] C013 Consult Reading Room PROTHROMBIN [id number] 22:44:00 Test Item Value Reference Range Interpretation Comments PROTIME (BEAKER) (test code = 22.6 seconds 11.7-14.7 H 759) INR (BEAKER) (test code = 370) 2.0 <=5.9 RECOMMENDED COUMADIN/WARFARIN INR THERAPY RANGESSTANDARD DOSE: 2.0 - 3.0 Includes: PROPHYLAXIS forvenous thrombosis, systemic embolization; TREATMENT for venous thrombosis and/or pulmonary embolus.HIGH RISK: Target INR is 2.5-3.5 for patients with mechanical heart valves.URINALYSIS W/ [id number] 22:34:00 Test Item Value Reference Range Interpretation [...] 1574) SOURCE(BEAKER) (test code = Urine, [place] 5754) BLOOD GAS, [id number] 22:25:00 Test Item Value Reference Range Interpretation [...] 36.6 C (test code = 1818) CALCIUM, [id number] 22:23:00 Test Item Value Reference Range Interpretation Comments CALCIUM IONIZED (BEAKER) (test 1.12 mmol/L 1.12-1.27 code = 698) PH, BLOOD (BEAKER) (test code = 7.36 8040)
--- NOTE | 2020-04-24 17:48 | RAD REPORT ---
EXAM DESCRIPTION: RAD - Chest Single View - 04/24/2020 5:28 pm CLINICAL HISTORY: Cough;Congestion Chest pain. COMPARISON: Chest Single View dated 04/04/2020; Chest Single View dated 03/20/2020; Chest Single View dated 03/19/2020; Chest Single View dated 03/18/2020 FINDINGS: Portable technique limits examination quality. Mild to moderate pulmonary edema. The heart is moderately enlarged with multilead pacer/defibrillator device. Changes of prior CABG noted. IMPRESSION: Mild CHF.
[2020-04-24 18:25] LABS: Absolute Lymphocytes (CBC) 0.7 K/uL (0.7-4.9); Lymphocytes % 8.2 % (15.3-44.8); MPV 8.7 fL (7.6-11.3); RBC Red Blood Cell Count 3.77 M/uL (4.33-5.43)
[2020-04-24 18:26] LABS: Protime INR 1.9
[2020-04-24 18:46] LABS: ALT/SGPT 15 U/L (12-78); AST/SGOT 15 U/L (15-37); Alkaline Phosphatase 133 U/L (45-117); Bilirubin Direct 0.6 mg/dL (0-0.2); Bilirubin Total 1.1 mg/dL (0.2-1.0); Magnesium 1.8 mg/dL (1.8-2.4); NT PRO-BNP 5645 pg/mL (<450); Protein, Total 7.6 g/dL (6.4-8.2); Troponin (Emerg Dept Use Only) < 0.02 ng/mL (0.0-0.045)
--- NOTE | 2020-04-24 20:16 | ER ---
Nurse's Notes [facility] Name: Javan Burrows Age: 85 yrs Sex: Male : 1935 Arrival Date: 04/24/2020 Time: 16:41 Bed 14 Private MD: Diagnosis: CHF Exacerbation Presentation: 04/24 16:41 Chief complaint: EMS states: "pt reporting a nose bleed today. similar event happened j last week. he was recently placed on Eliquis, but his son took him off of it with the initial nose bleeding problem. pt reports that last time this happened they stuck a big thing up his nose and it stopped." no obvious bleeding noted at this time. pt reporting he can taste the blood still going down the back of his throat. Coronavirus screen: At this time, the client does not indicate any symptoms associated with coronavirus-19. Ebola Screen: Patient negative for fever greater than or equal to 101.5 degrees Fahrenheit, and additional compatible Ebola Virus Disease symptoms. Initial Sepsis Screen: Does the patient meet any 2 criteria? No. Patient's initial sepsis screen is negative. Does the patient have a suspected source of infection? No. Patient's initial sepsis screen is negative. Risk Assessment: Do you want to hurt yourself or someone else? Patient reports no desire to harm self or others. Onset of symptoms was April 24, 2020. 16:41 Method Of Arrival: EMS: [place] [address] 16:41 Acuity: GOLDIE 3 jd3 Historical: - Allergies: 16:47 NKA; jd3 - Home Meds: 16:47 allopurinol 300 mg Oral tab 1 tab once daily [Active]; aspirin 81 mg Oral chew 1 tab jd3 once daily [Active]; atorvastatin 40 mg Oral tab 1 tab once daily [Active]; carvedilol 3.125 mg Oral tab 1 tab 2 times per day [Active]; furosemide 40 mg Oral tab 1 tab 2 times per day [Active]; glimepiride 4 mg Oral tab 1 tab once daily [Active]; potassium chloride 20 mEq Oral TbER 1 tab once daily [Active]; tamsulosin 0.4 mg Oral cp24 1 cap once daily [Active]; Tresiba FlexTouch U-100 subcutaneous [Active]; Eliquis oral oral [Active]; - PMHx: 16:47 Diabetes - NIDDM; Myocardial infarction; Pacemaker; Hypertension; Gout; a-fib; jd3 - Immunization history:: Adult Immunizations up to date. - Social history:: Smoking status: Patient/guardian denies using tobacco, the patient reports quitting approximately 2.5 years ago. Screenin:49 Abuse screen: Denies threats or abuse. Nutritional screening: No deficits noted. jd3 Tuberculosis screening: No symptoms or risk factors identified. Fall Risk Secondary diagnosis (15 points) impaired mobility, No IV (0 pts). Ambulatory Aid- None/Bed Rest/Nurse Assist (0 pts). Gait- Impaired (20 pts.). Mental Status- Oriented to own ability (0 pts). Total Alonzo Fall Scale indicates Low Risk Score (25-44 pts). Fall prevention measures have been instituted. Side Rails Up X 2 Placed close to Nursing Station Frequent Obs/Assesments occuring Family Present and informed to notify staff if they need to leave bedside. Assessment: 16:47 General: Appears in no apparent distress. comfortable, Behavior is calm, cooperative, jd3 appropriate for age. Pain: Denies pain. Neuro: Level of Consciousness is awake, alert, obeys commands, Oriented to person, place, time, situation. Cardiovascular: Denies chest pain, Capillary refill < 3 seconds Patient's skin is warm and dry. Respiratory: Airway is patent Respiratory effort is even, unlabored, Respiratory pattern is regular, symmetrical, Denies cough, shortness of breath. GI: No signs and/or symptoms were reported involving the gastrointestinal system. : No signs and/or symptoms were reported regarding the genitourinary system. EENT: Nares dried blood noted to both nares . Derm: Skin is intact, Skin is dry, Skin is normal, Skin temperature is warm. Musculoskeletal: Circulation, motion, and sensation intact. Range of motion: intact in all extremities. 18:11 Reassessment: Patient appears in no apparent distress at this time. Patient and/or iw family updated on plan of care and expected duration. Pain level reassessed. Patient is alert, oriented x 3, equal unlabored respirations, skin warm/dry/pink. 19:30 General: Appears in no apparent distress. comfortable, Behavior is calm, cooperative, rr5 appropriate for age. Neuro: Level of Consciousness is awake, alert, obeys commands, Oriented to person, place, time. Cardiovascular: Capillary refill < 3 seconds Patient's skin is warm and dry. Respiratory: Airway is patent Respiratory effort is even, unlabored, Respiratory pattern is regular, symmetrical. GI: Abdomen is round. : No signs and/or symptoms were reported regarding the genitourinary system. EENT: Reports nasal discharge that is bloody. Derm: Skin is fragile, is thin, Skin temperature is warm. Musculoskeletal: Amputation of right leg. Circulation, motion, and sensation intact. 20:30 Reassessment: Patient appears in no apparent distress at this time. Patient and/or rr5 family updated on plan of care and expected duration. Pain level reassessed. Patient is alert, oriented x 3, equal unlabored respirations, skin warm/dry/pink. 21:35 Reassessment: positive nose bleed hospitalist informed with order made and carried out. rr5 22:01 Reassessment: paged RT to apply humidified oxygen to the patient in the floor. mg2 Vital Signs: 16:44 BP 127 / 82; Pulse 108; Resp 18 S; Temp 99.0(TE); Pulse Ox 88% on R/A; Weight 81.65 kg jd3 (R); Height 5 ft. 9 in. (175.26 cm) (R); Pain 0/10; 16:45 Pulse Ox 95% on 2 lpm NC; jd3 18:55 BP 151 / 86; Pulse 107; Resp 17 S; Pulse Ox 94% on 2 lpm NC; jd3 20:00 BP 118 / 84; Pulse 118; Resp 19; Pulse Ox 98% on 2 lpm NC; rr5 21:00 BP 115 / 75; Pulse 110; Resp 16; Pulse Ox 98% on 2 lpm NC; rr5 22:00 BP 119 / 89; Pulse 105; Resp 17; Pulse Ox 99% on 2 lpm NC; rr5 16:44 Body Mass Index 26.58 (81.65 kg, 175.26 cm) jd3 ED Course: 16:41 Patient arrived in ED. jd3 16:44 Triage completed. jd3 16:45 Arm band placed on. jd3 16:48 Vu Alvarez MD is Attending Physician. kdr 16:51 Patient has correct armband on for positive identification. Bed in low position. Call jd3 light in reach. Side rails up X2. Pulse ox on. NIBP on. 17:32 CXR XRAY In Process Unspecified. EDMS 18:03 Initial lab(s) drawn, by me, sent to lab. Inserted saline lock: 22 gauge in right ca1 antecubital area, using aseptic technique. Blood collected. 18:55 Rajiv Molina RN is Primary Nurse. luli 19:21 Attending Physician role handed off by Vu Alvarez MD [facility] 19:21 Sabas Contreras MD is Attending Physician. [facility] 20:15 Gino Parker MD is Hospitalizing Provider. [facility] 22:00 No provider procedures requiring assistance completed. Patient admitted, IV remains in mg2 place. Administered Medications: 22:00 Drug: Afrin Drops (0.05 %) 1 sprays Route: Intranasal; Site: left nare; mg2 Outcome: 20:16 Decision to Hospitalize by Provider. [facility] 22:00 Admitted to Med/surg accompanied by tech, room 224, with oxygen, with chart. mg2 22:00 Condition: stable 22:00 Instructed on the need for admit, Demonstrated understanding of instructions. 22:14 Patient left the ED. [facility] Signatures: Dispatcher [employer] EDMS Vu Alvarez MD MD [facility] Nita Boateng RN RN Rajiv Molina RN RN jd3 Gardose, Michele, RN RN mg2 Gino Guadarrama RN RN rr5 Sharron Miles RN RN ca1 Sabas Contreras MD MD [facility]
--- NOTE | 2020-04-24 20:16 | EDPHYS ---
Physician Documentation [facility] Name: Javan Burrows Age: 85 yrs Sex: Male : 1935 Arrival Date: 04/24/2020 Time: 16:41 Bed 14 Private MD: ED Physician Sabas Contreras HPI: 04/24 18:21 This 85 yrs old Male presents to ER via EMS with complaints of general kdr weakness and nose bleed. 18:21 The patient was reportedly seen recently for epistaxis. He had been on Eliquis which kdr was d/c'd after the nose bleed by his son. Today, it is reported that he again had recurrent nose bleeds and so he was sent back to the ED. The patient has no other c/o at this time and seems to not know why he is in the ED. he makes no mention of the nose bleeds. Onset: The symptoms/episode began/occurred at an unknown time. Severity of symptoms: At their worst the symptoms were mild. Unable to obtain HPI due to The patient seems mildly confused. It is unknown whether or not the patient has had similar symptoms in the past. The patient has been recently seen by a physician: with similar presenting complaints, and was referred to a specialist. Historical: - Allergies: 16:47 NKA; jd3 - Home Meds: 16:47 allopurinol 300 mg Oral tab 1 tab once daily [Active]; aspirin 81 mg Oral chew 1 tab jd3 once daily [Active]; atorvastatin 40 mg Oral tab 1 tab once daily [Active]; carvedilol 3.125 mg Oral tab 1 tab 2 times per day [Active]; furosemide 40 mg Oral tab 1 tab 2 times per day [Active]; glimepiride 4 mg Oral tab 1 tab once daily [Active]; potassium chloride 20 mEq Oral TbER 1 tab once daily [Active]; tamsulosin 0.4 mg Oral cp24 1 cap once daily [Active]; Tresiba FlexTouch U-100 subcutaneous [Active]; Eliquis oral oral [Active]; - PMHx: 16:47 Diabetes - NIDDM; Myocardial infarction; Pacemaker; Hypertension; Gout; a-fib; jd3 - Immunization history:: Adult Immunizations up to date. - Social history:: Smoking status: Patient/guardian denies using tobacco, the patient reports quitting approximately 2.5 years ago. ROS: 18:21 Constitutional: Negative for fever, chills, and weight loss, Eyes: Negative for injury, kdr pain, redness, and discharge, Neck: Negative for injury, pain, and swelling, Cardiovascular: Negative for chest pain, palpitations, and edema, Abdomen/GI: Negative for abdominal pain, nausea, vomiting, diarrhea, and constipation, Back: Negative for injury and pain, : Negative for injury, bleeding, discharge, and swelling, MS/Extremity: Negative for injury and deformity, Skin: Negative for injury, rash, and discoloration, Psych: Negative for depression, anxiety, suicide ideation, homicidal ideation, and hallucinations, Allergy/Immunology: Negative for hives, rash, and allergies, Endocrine: Negative for neck swelling, polydipsia, polyuria, polyphagia, and marked weight changes, Hematologic/Lymphatic: Negative for swollen nodes, abnormal bleeding, and unusual bruising. 18:21 Respiratory: Positive for cough, "sounds productive", Negative for hemoptysis, orthopnea, pleurisy, wheezing. Exam: 18:21 Constitutional: This is a well developed, well nourished patient who is awake, alert, kdr and in no acute distress. Head/Face: Normocephalic, atraumatic. Eyes: Pupils equal round and reactive to light, extra-ocular motions intact. Lids and lashes normal. Conjunctiva and sclera are non-icteric and not injected. Cornea within normal limits. Periorbital areas with no swelling, redness, or edema. Neck: Trachea midline, no thyromegaly or masses palpated, and no cervical lymphadenopathy. Supple, full range of motion without nuchal rigidity, or vertebral point tenderness. No Meningismus. Chest/axilla: Normal chest wall appearance and motion. Nontender with no deformity. No lesions are appreciated. Cardiovascular: Regular rate and rhythm with a normal S1 and S2. No gallops, murmurs, or rubs. Normal PMI, no JVD. No pulse deficits. Abdomen/GI: Soft, non-tender, with normal bowel sounds. No distension or tympany. No guarding or rebound. No evidence of tenderness throughout. Back: No spinal tenderness. No costovertebral tenderness. Full range of motion. Skin: Warm, dry with normal turgor. Normal color with no rashes, no lesions, and no evidence of cellulitis. MS/ Extremity: Pulses equal, no cyanosis. Neurovascular intact. Full, normal range of motion. Neuro: Awake and alert, GCS 15, oriented to person, place, but not to time or situation. Cranial nerves II-XII grossly intact. Motor strength 5/5 in all extremities. Sensory grossly intact. 18:21 Respiratory: the patient does not display signs of respiratory distress, Respirations: normal, Breath sounds: rhonchi, that are mild, are scattered, are heard diffusely. Vital Signs: 16:44 BP 127 / 82; Pulse 108; Resp 18 S; Temp 99.0(TE); Pulse Ox 88% on R/A; Weight 81.65 kg jd3 (R); Height 5 ft. 9 in. (175.26 cm) (R); Pain 0/10; 16:45 Pulse Ox 95% on 2 lpm NC; jd3 18:55 BP 151 / 86; Pulse 107; Resp 17 S; Pulse Ox 94% on 2 lpm NC; jd3 20:00 BP 118 / 84; Pulse 118; Resp 19; Pulse Ox 98% on 2 lpm NC; rr5 21:00 BP 115 / 75; Pulse 110; Resp 16; Pulse Ox 98% on 2 lpm NC; rr5 22:00 BP 119 / 89; Pulse 105; Resp 17; Pulse Ox 99% on 2 lpm NC; rr5 16:44 Body Mass Index 26.58 (81.65 kg, 175.26 cm) jd3 MDM: 18:21 Data reviewed: vital signs, nurses notes, lab test result(s), radiologic studies. kdr Counseling: I had a detailed discussion with the patient and/or guardian regarding: the historical points, exam findings, and any diagnostic results supporting the discharge/admit diagnosis, lab results, radiology results. 20:14 Differential Diagnosis altered mental status, Epistaxis, generalized weakness. Data [facility] interpreted: Pulse oximetry: on 2L(s) per nasal canula, is 94 %. Interpretation: acceptable. Response to treatment: the patient's symptoms have mildly improved after treatment. 20:16 Patient medically screened. [facility] 04/24 17:03 Order name: CBC with Diff kdr 04/24 17:03 Order name: Chem 7; Complete Time: 19:21 kdr 04/24 17:03 Order name: PT-INR; Complete Time: 19:21 kdr 04/24 18:17 Order name: LFT's kdr 04/24 18:17 Order name: Magnesium [facility] 04/24 18:17 Order name: NT PRO-BNP; Complete Time: 19:21 kdr 04/24 17:03 Order name: CXR XRAY; Complete Time: 18:17 kdr 04/24 18:17 Order name: Troponin (emerg Dept Use Only); Complete Time: 19:21 kdr 04/24 18:18 Order name: Liver (Hepatic) Function; Complete Time: 19:21 EDMS 04/24 18:19 Order name: Magnesium; Complete Time: 19:21 EDMS 04/24 21:37 Order name: SARS-COV-2 RT PCR [facility] 04/24 22:06 Order name: CBC Smear Scan [facility] 04/24 18:17 Order name: EKG; Complete Time: 18:19 kdr 04/24 18:17 Order name: Cardiac monitoring; Complete Time: 18:34 [facility] 04/24 18:17 Order name: EKG - Nurse/Tech; Complete Time: 18:55 [facility] 04/24 18:17 Order name: IV Saline Lock; Complete Time: 18:55 kdr 04/24 18:17 Order name: Labs collected and sent; Complete Time: 18:34 kdr 04/24 18:17 Order name: O2 Per Protocol; Complete Time: 18:34 kdr 04/24 18:17 Order name: O2 Sat Monitoring; Complete Time: 18:34 kdr Administered Medications: 22:00 Drug: Afrin Drops (0.05 %) 1 sprays Route: Intranasal; Site: left nare; mg2 Disposition: 04/24/20 20:16 Hospitalization ordered by Gino Parker for Inpatient Admission. Preliminary diagnosis is CHF Exacerbation. - Bed requested for Telemetry/MedSurg (Inpatient). - Status is Inpatient Admission. mg2 - Condition is Stable. - Problem is an acute exacerbation. - Symptoms have improved. Signatures: Dispatcher [employer] EDMS Vu Alvarez MD MD kdr Rajiv Molina RN RN jd3 Luiz Howard RN RN mg2 Gino Guadarrama RN RN rr5 Sabas Contreras MD MD 7 Lexi Doe RN RN rd1 Corrections: (The following items were deleted from the chart) 20:46 20:15 CORONAVIRUS+ ordered. EDMS EDMS 21:39 20:16 Hospitalization Ordered by Gino Parker MD for Inpatient Admission. Preliminary rd1 diagnosis is CHF Exacerbation. Bed requested for Telemetry/MedSurg (Inpatient). Status is Inpatient Admission. Condition is Stable. Problem is an acute exacerbation. Symptoms have improved. [facility] 22:14 21:39 04/24/2020 20:16 Hospitalization Ordered by Gino Parker MD for Inpatient mg2 Admission. Preliminary diagnosis is CHF Exacerbation. Bed requested for Telemetry/MedSurg (Inpatient). Status is Inpatient Admission. Condition is Stable. Problem is an acute exacerbation. Symptoms have improved. rd1
--- NOTE | 2020-04-24 21:59 | P.HP ---
Certification for Inpatient Patient admitted to: Inpatient With expected LOS: >2 Midnights Patient will require the following post-hospital care: None Practitioner: I am a practitioner with admitting privileges, knowledge of patient current condition, hospital course, and medical plan of care. Services: Services provided to patient in accordance with Admission requirements found in Title 42 Section 412.3 of the Code of Federal Regulations <Benson Edmond - Last Filed: 04/24/20 21:54> Patient History Date of Service: 04/24/20 Reason for admission: Dyspnea, hypoxia, CHF exacerbation History of Present Illness: 85-year-old male with history of chronic systolic congestive heart failure, CKD 3, diabetes mellitus type 2, atrial fibrillation presents emergency department for nosebleed. Patient currently staying at snf, was recently started on Eliquis, this was discontinued yesterday likely after patient experienced nosebleed at the snf. Upon presentation to the emergency department patient's nosebleed had stopped. Patient was found to be mildly hypoxic with room air saturations in the 80s and therefore more thorough evaluation was performed. Mild worsening in renal function creatinine 1.91 GFR 34, baseline creatinine appears to be around 1.3. BNP elevated 5645 chest x-ray demonstrates mild to moderate pulmonary edema. ED provider wishes to admit patient under observation for diuresis, further management. - Past Medical/Surgical History Diabetic: Yes -: Chronic systolic congestive heart failure -: DM Type 2 -: Gout -: HTN -: Atrial fibrillation -: CABG -: [place] -: Pacemaker- Defib -: Right AKA 1994 -: Left knee replacement 2x -: Cholecystectomy -: Bilateral Fempop -: Reverse Vasectomy -: Vasectomy Psychosocial/ Personal History: Patient currently resides in snf - Family History Father Notes: cerebral hemorrhage- Mother Notes: heart attack- - Social History Smoking Status: Former smoker Alcohol use: No CD- Drugs: No Caffeine use: No Place of Residence: [facility] <Benson Edmond - Last Filed: 04/24/20 21:54> Date of Service: 04/25/20 <Gino Parker - Last Filed: 04/25/20 15:47> Allergies No Known Drug Allergies Allergy (Verified 04/24/20 22:34) Unknown No Known Al Allergy (Uncoded 04/24/20 22:34) Unknown No Known Allergies Allergy (Uncoded 04/24/20 22:34) Unknown Home Medications: RX: Aspirin [Aspirin EC 81 MG] 81 mg PO DAILY 05/04/18 RX: Atorvastatin Calcium [Lipitor] 40 mg PO BEDTIME 05/04/18 RX: Furosemide [Lasix*] 40 mg PO BIDL 05/04/18 RX: Glimepiride [Amaryl] 4 mg PO DAILY 05/04/18 RX: Potassium Chloride [Klor-Con M20] 20 meq PO DAILY 05/04/18 RX: Tamsulosin [Flomax*] 0.4 mg PO DAILY 05/04/18 RX: allopurinoL [Zyloprim*] 300 mg PO DAILY 05/04/18 RX: carvediloL [Coreg*] 3.125 mg pe PO DAILY 05/04/18 RX: Pantoprazole [Protonix Tab*] 40 mg PO BIDAC #60 tab 03/21/20 RX: Spironolactone [Aldactone*] 25 mg PO DAILY #30 tab 03/21/20 Review of Systems 10-point ROS is otherwise unremarkable Respiratory: Shortness of Breath Cardiovascular: Edema <MayitoBenson - Last Filed: 04/24/20 21:54> Physical Examination - Physical Exam General: Alert, In no apparent distress HEENT: Atraumatic, PERRLA, Mucous membr. moist/pink Neck: Supple, 2+ carotid pulse no bruit, No LAD Respiratory: Normal air movement, Crackles/rales (Bilaterally) Cardiovascular: Regular rate/rhythm, Normal S1 S2 Capillary refill: <2 Seconds Gastrointestinal: Normal bowel sounds, No tenderness, No masses, No rebound, No guarding Musculoskeletal: No tenderness, Other (Right AKA) Integumentary: No rashes Neurological: Normal speech, Normal tone, Normal affect Lymphatics: No axilla or inguinal lymphadenopathy - Studies Laboratory Data (last 24 hrs) 04/24/20 18:01: Magnesium 1.8, Total Bilirubin 1.1 H, AST 15, ALT 15, Alkaline Phosphatase 133 H 04/24/20 18:01: PT 22.0 H, INR 1.90 04/24/20 18:01: Sodium 137, Potassium 4.0, BUN 49 H, Creatinine 1.91 H, Glucose 172 H 04/24/20 18:01: WBC 8.40, Hgb 11.2 L, Hct 34.0 L, Plt Count 149 L <Benson Edmond - Last Filed: 04/24/20 21:54> - Studies Laboratory Data (last 24 hrs) 04/24/20 18:01: Magnesium 1.8, Total Bilirubin 1.1 H, AST 15, ALT 15, Alkaline Phosphatase 133 H 04/24/20 18:01: PT 22.0 H, INR 1.90 04/24/20 18:01: Sodium 137, Potassium 4.0, BUN 49 H, Creatinine 1.91 H, Glucose 172 H 04/24/20 18:01: WBC 8.40, Hgb 11.2 L, Hct 34.0 L, Plt Count 149 L <Gino Parker - Last Filed: 04/25/20 15:47> Assessment and Plan - Plan Assessment Hypoxia, dyspnea secondary to Acute on chronic systolic congestive heart failure CKD with mild CURTIS Chronic Atrial fibrillation Diabetes mellitus type 2 Hypertension Plan Hypoxia, dyspnea secondary to Acute on chronic systolic congestive heart failure: Continue with IV diuresis, monitor on telemetry. 1500 cc per day fluid restriction, daily weights, cardiology consult in place. Room air saturations for home O2. Last echocardiogram done last month shows ejection fraction 23%. Appreciate further input from cardiology, DVT prophylaxis with SCDs due to recent nosebleed. CKD with mild CURTIS: Likely cardiorenal syndrome, consult nephrology as there is worsening in renal function inpatient did not previously seen in during his last admission. Chronic Atrial fibrillation: Patient was recently started on Eliquis at the [facility] but it was discontinued yesterday likely has patient experienced nosebleed. Will continue to hold Eliquis at this time, patient had nosebleed again today but this is now under control. Diabetes mellitus type 2: A.c. HS Accu-Cheks, sliding scale insulin therapy. ADA diet. Hypertension: Obtain and continue home medications as appropriate. Discharge Plan: [facility] Plan to discharge in: 48 Hours - Advance Directives Does patient have a Living Will: Yes Does patient have a Durable POA for Healthcare: No - Code Status/Comfort Care Code Status Assessed: Yes (Full code) Critical Care: No Time Spent Managing Pts Care (In Minutes): 55 <Benson Edmond - Last Filed: 04/24/20 21:54> - Plan Plan of care reviewed as noted above by Benson Attema Acute respiratory failure with Hypoxia secondary acute on chronic systolic congestive heart failure diurese with IV lasix, Cardiology consulted given significant EF: 23% last month mild CURTIS on CKD - cardiorenal syndrome likely, nephrology consulted <Gino Parker - Last Filed: 04/25/20 15:47>
[2020-04-24] MEDS ORDERED: OXYMETAZOLINE HCL 0.05% 15ML NAS ONE (22:03)
[2020-04-24 22:04] LABS: Anisocytosis 3+; Blood Morphology Comment NOTED (NOT SEEN); Platelet Estimate DECR; White Blood Cell Scan OK (OK)
[2020-04-24] MEDS ORDERED: ONDANSETRON 4 MG/2 ML VIAL IV PRN (22:32)
[2020-04-24 22:37] VITALS: BMI 26.4
[2020-04-24] MEDS ORDERED: D50W 25 GM/50 ML SYRINGE IV PRN (23:43)
[2020-04-24] MEDS ORDERED: GLUCAGON 1 MG/VIAL IM PRN (23:43)
[2020-04-25] MEDS: FUROSEMIDE 40 MG/4 ML VIAL IV SCH ×3 (00:09→16:26)
[2020-04-25] MEDS: ACETAMINOPHEN 500 MG TAB PO PRN ×2 (00:15→05:22)
[2020-04-25 05:19] LABS: Basophils % 0.6 % (0-1.3); Hematocrit 33.8 % (39.6-49.0); MPV 8.4 fL (7.6-11.3); RBC Red Blood Cell Count 3.69 M/uL (4.33-5.43)
[2020-04-25] MEDS: BENZONATATE 100 MG CAP PO PRN ×2 (05:22→21:03)
[2020-04-25 05:43] LABS: Albumin 2.8 g/dL (3.4-5.0); Magnesium 1.8 mg/dL (1.8-2.4); Potassium 4.2 mmol/L (3.5-5.1); Protein, Total 7.2 g/dL (6.4-8.2); Thyroid Stimulating Hormone 0.752 uIU/mL (0.360-3.740); Uric Acid 4.4 mg/dL (3.5-7.2)
[2020-04-25 05:50] LABS: Urine Appearance CLEAR; Urine Bilirubin NEGATIVE (NEG); Urine Blood NEGATIVE (NEG); Urine Color YELLOW; Urine Glucose NEGATIVE (NEG); Urine Protein NEGATIVE (NEG); Urine Specific Gravity 1.015 (1.005-1.030)
[2020-04-25 06:01] LABS: Urine Microscopic Reflex NO UMIC
[2020-04-25] MEDS: INSULIN -REGULAR HUMAN 50 UNIT/0.5 ML ML SQ SCH ×4 (07:30→21:04)
--- NOTE | 2020-04-25 09:35 | P.CNS ---
Reason for Consult: CURTIS, CKD Chief Complaint: Dyspnea, hypoxia, CHF exacerbation History of Present Illness: 85M w/ PMHx of CKD3 w/ baseline SCr 1.0-1.2, chronic systolic HF, DM2, & afib recently started on eliquis, who presented from [facility] w/ epistaxis & hypoxia. CXR showed some pulmo edema & BNP sig elevated. He was admitted for acute decomp HF & was also noted to have CURTIS w/ SCr 1.9 on admission. Urine chem somewhat prerenal. Renal US unremarkable. He has urinary retention w/ PVR 300 cc. Nam placed. He denies N/V/D/NSAID use. Allergies No Known Drug Allergies Allergy (Verified 04/24/20 22:34) Unknown No Known Al Allergy (Uncoded 04/24/20 22:34) Unknown No Known Allergies Allergy (Uncoded 04/24/20 22:34) Unknown Home Medications: Aspirin [Aspirin EC 81 MG] 81 mg PO DAILY 05/04/18 Atorvastatin Calcium [Lipitor] 40 mg PO BEDTIME 05/04/18 Furosemide [Lasix*] 40 mg PO BIDL 05/04/18 Glimepiride [Amaryl] 4 mg PO DAILY 05/04/18 Potassium Chloride [Klor-Con M20] 20 meq PO DAILY 05/04/18 Tamsulosin [Flomax*] 0.4 mg PO DAILY 05/04/18 allopurinoL [Zyloprim*] 300 mg PO DAILY 05/04/18 carvediloL [Coreg*] 3.125 mg pe PO DAILY 05/04/18 Pantoprazole [Protonix Tab*] 40 mg PO BIDAC #60 tab 03/21/20 Spironolactone [Aldactone*] 25 mg PO DAILY #30 tab 03/21/20 - Past Medical/Surgical History Diabetic: Yes -: Chronic systolic congestive heart failure -: DM Type 2 -: Gout -: HTN -: Atrial fibrillation -: CABG -: [place] -: Pacemaker- Defib -: Right AKA 1994 -: Left knee replacement 2x -: Cholecystectomy -: Bilateral Fempop -: Reverse Vasectomy -: Vasectomy Psychosocial/ Personal History: Patient currently resides in shelter - Family History Father Notes: cerebral hemorrhage- Mother Notes: heart attack- - Social History Smoking Status: Former smoker Alcohol use: No CD- Drugs: No Caffeine use: No Place of Residence: Home Review of Systems General: Weakness Eyes: Unremarkable ENT: Other (Epistaxis) Respiratory: Shortness of Breath Cardiovascular: Unremarkable Gastrointestinal: Unremarkable Genitourinary: Unremarkable Musculoskeletal: Unremarkable Integumentary: Unremarkable Neurological: Unremarkable Lymphatics: Unremarkable Physical Examination Temp Pulse Resp BP Pulse Ox 97 F 86 18 144/68 H 93 04/25/20 03:35 04/25/20 08:46 04/25/20 03:35 04/25/20 08:46 04/25/20 03:35 General: In no apparent distress HEENT: Atraumatic, Normocephalic Neck: Supple, Without JVD or thyroid abnormality Respiratory: Clear to auscultation bilaterally Cardiovascular: Normal S1 S2, No murmurs Capillary refill: <2 Seconds Gastrointestinal: Soft and benign, Non-distended Musculoskeletal: No clubbing, No swelling Integumentary: Other (Normal temp) Neurological: Normal speech, Normal affect Lymphatics: No axilla or inguinal lymphadenopathy Urinary: Other (No bladder distention) External genitalia: Deferred Rectal: Deferred Laboratory Data (last 24 hrs) 04/24/20 18:01: Magnesium 1.8, Total Bilirubin 1.1 H, AST 15, ALT 15, Alkaline Phosphatase 133 H 04/24/20 18:01: PT 22.0 H, INR 1.90 04/24/20 18:01: Sodium 137, Potassium 4.0, BUN 49 H, Creatinine 1.91 H, Glucose 172 H 04/24/20 18:01: WBC 8.40, Hgb 11.2 L, Hct 34.0 L, Plt Count 149 L Conclusions/Impression: # CURTIS, unclear etio, probably related to prerenal state + urinary retention +/- CRS1 Has underlying non-proteinuric CKD3 w/ baseline SCr 1.0-1.2 SCr on adm 1.9, then 1.8 today Urine studies showed some prerenal state Renal US unremarkable Advised on liberal free water intake Monitor renal panel PVR 300 cc. Ok to keep nam for now. # Urinary retention Nam Flomax # Acute decomp HF Cont lasix Restrict dietary salt but do NOT restrict free water intake # Epistaxis Has been on eliquis for afib Resolved Monitor Thank you for this referral. Will follow up.
--- NOTE | 2020-04-25 15:59 | P.PN ---
Subjective Date of Service: 04/25/20 Chief Complaint: Dyspnea, hypoxia, CHF exacerbation Subjective: Improving (patient feels slightly better this morning, still with SOB and b/l edema) Review of Systems 10-point ROS is otherwise unremarkable Physical Examination - Vital Signs Temperature: 99 F Blood Pressure: 156/87 Pulse: 117 Respirations: 20 Pulse Ox (%): 93 - Studies Laboratory Data (last 24 hrs) 04/24/20 18:01: Magnesium 1.8, Total Bilirubin 1.1 H, AST 15, ALT 15, Alkaline Phosphatase 133 H 04/24/20 18:01: PT 22.0 H, INR 1.90 04/24/20 18:01: Sodium 137, Potassium 4.0, BUN 49 H, Creatinine 1.91 H, Glucose 172 H 04/24/20 18:01: WBC 8.40, Hgb 11.2 L, Hct 34.0 L, Plt Count 149 L Assessment & Plan Physician Review Additional Text: Physical Exam: General: Alert, NAD HEENT: sclera anicteric, normal conjunctiva, small amount of dried blood on nostril Pulm: crackles at bilateral bases, non-labored CV: regular rate/rhythm, normal S1/S2 Abd: soft, NTND Ext: R AKA, L: 1+ edema skin: no rash Problem List Hypoxia, dyspnea secondary to Acute on chronic systolic congestive heart failure CKD with mild CURTIS Chronic Atrial fibrillation Diabetes mellitus type 2 Hypertension -continue IV diuresis, monitor on telemetry, fluid restrict -cardiology consulted, pt's EF: 25% last month -CURTIS likely cardiorenal syndrome, nephrology consulted -eliquis was dc'd yesterday (recently started at [facility]) due to nosebleed, hold eliquis -continue home meds as appropriate Dispo: anticipate dc back to [facility] in ~24-48hrs Time Spent Managing Pts Care (In Minutes): 35
[2020-04-25] MEDS ORDERED: D50W 25 GM/50 ML SYRINGE IV PRN (16:00)
[2020-04-25 16:15] LABS: Urine Protein/Creatinine Ratio 0.23 ratio (<0.15)
[2020-04-25] MEDS ORDERED: METOPROLOL TARTRATE 5 MG/5 ML INJ IV STA (16:20)
[2020-04-25] MEDS: carvediloL 3.125 MG TAB PO SCH ×2 (16:25→21:03)
[2020-04-25] MEDS: PANTOPRAZOLE 40MG TABLET PO SCH (16:26)
--- NOTE | 2020-04-25 19:33 | RAD REPORT ---
EXAM DESCRIPTION: US - Renal Ultrasound-Complete - 04/25/2020 7:22 pm CLINICAL HISTORY: assess for urinary obstruction, CKD changes Flank pain COMPARISON: Renal Ultrasound-Complete dated 03/17/2020; Abdomen Pelvis W Contrast dated 03/16/2020 FINDINGS: Both kidneys are normal in size, shape and echotexture. The right kidney measures 11.7 x 5.5 x 5.0 cm. No hydronephrosis, focal mass or perinephric fluid. The left kidney measures 11.6 x 5.2 x 4.5 cm. No hydronephrosis, focal mass or perinephric fluid. Ish ign 13 mm cyst. The urinary bladder is incompletely distended without gross abnormality seen. IMPRESSION: Unremarkable renal sonogram.
[2020-04-25] MEDS: ATORVASTATIN 40 MG TAB PO SCH (21:03)
[2020-04-26] MEDS: ACETAMINOPHEN 500 MG TAB PO PRN (00:10)
[2020-04-26] MEDS: FUROSEMIDE 40 MG/4 ML VIAL IV SCH ×2 (00:14→08:52)
[2020-04-26 06:43] LABS: Basophils % 0.4 % (0-1.3); Hematocrit 33.4 % (39.6-49.0); Lymphocytes % 7.1 % (15.3-44.8); MPV 9.3 fL (7.6-11.3); RBC Red Blood Cell Count 3.66 M/uL (4.33-5.43)
[2020-04-26 06:46] LABS: Albumin 2.6 g/dL (3.4-5.0); Bilirubin Total 1.1 mg/dL (0.2-1.0); Potassium 3.7 mmol/L (3.5-5.1); Protein, Total 6.7 g/dL (6.4-8.2)
[2020-04-26] MEDS: INSULIN -REGULAR HUMAN 50 UNIT/0.5 ML ML SQ SCH ×4 (07:30→20:35)
[2020-04-26] MEDS: carvediloL 3.125 MG TAB PO SCH ×2 (08:50→20:34)
[2020-04-26] MEDS: BENZONATATE 100 MG CAP PO PRN ×2 (08:50→20:34)
[2020-04-26] MEDS: PANTOPRAZOLE 40MG TABLET PO SCH ×2 (08:50→17:33)
[2020-04-26] MEDS: TAMSULOSIN 0.4 MG SR CAP PO SCH (08:50)
--- NOTE | 2020-04-26 09:06 | P.PN ---
Subjective Date of Service: 04/27/20 Chief Complaint: Dyspnea, hypoxia, CHF exacerbation Reports having inc productive cough. Physical Examination - Vital Signs Temperature: 98.4 F Blood Pressure: 116/70 Pulse: 98 Respirations: 20 Pulse Ox (%): 96 - Physical Exam General: Mild distress HEENT: Atraumatic, Normocephalic Neck: Supple, Without JVD or thyroid abnormality Respiratory: Diminished Cardiovascular: No murmurs Gastrointestinal: Soft and benign, Non-distended Assessment And Plan - Plan # CURTIS, unclear etio, probably related to prerenal state + urinary retention +/- CRS1 Has underlying non-proteinuric CKD3 w/ baseline SCr 1.0-1.2 SCr on adm 1.9, then worsened to 2.3 today Urine studies showed some prerenal component Has poor po intake Renal US unremarkable Give D5W IV gtt at 75 cc/hr Advised on liberal free water intake Monitor renal panel PVR 300 cc. Ok to keep nam for now. # Urinary retention Nam Flomax # Acute decomp HF Cont lasix Restrict dietary salt but do NOT restrict free water intake # Productive cough w/ bilateral pleural effusion CXR on 04/26 w/ improved CHF findings but w/ bilat pleural effusion +leukocytosis Started on abx for PNA Incentive spirometry Pulmo service consulted. Might need thoracentesis # Epistaxis Has been on eliquis for afib Resolved Monitor
[2020-04-26 10:14] LABS: Anisocytosis 3+; Blood Morphology Comment NOTED (NOT SEEN); Platelet Estimate DECR
[2020-04-26 10:15] LABS: Burr Cells 2+; Ovalocytes 1+
[2020-04-26] MEDS ORDERED: D50W 25 GM/50 ML VIAL IV PRN (11:00)
[2020-04-26] MEDS: AMPICILLIN/SULBACT 3 GM in NA CHLORIDE 0.9% 100 ML IVPB SCH ×2 (12:18→20:33)
[2020-04-26] MEDS: D5W 1,000 ML IV SCH (12:22)
--- NOTE | 2020-04-26 12:23 | RAD REPORT ---
EXAM DESCRIPTION: RAD - Chest Pa And Lat (2 Views) - 04/26/2020 11:37 am CLINICAL HISTORY: cough,chf COMPARISON: April 24 TECHNIQUE: Frontal and lateral views of the chest were obtained. FINDINGS: The lungs are underinflated which accentuates heart, vasculature and lung markings. Mid an d upper lung ko show no focal consolidation. Heart size and central vasculature have decreased in prominence. Moderate bilateral pleural effusions are present. No acute bony finding noted. No aor tic abnormality. IMPRESSION: CHF/volume overload findings have improved in the heart, vasculature and lung markings. Patient still has moderate-sized bilateral pleural effusions.
--- NOTE | 2020-04-26 13:12 | P.PN ---
Subjective Date of Service: 04/26/20 Chief Complaint: Dyspnea, hypoxia, CHF exacerbation Subjective: No new changes (no acute events overnight. now on oxygen, continues with wet cough, crackles bilaterally. afebrile. WBC increaased this morning) Review of Systems 10-point ROS is otherwise unremarkable Physical Examination - Vital Signs Temperature: 98.4 F Blood Pressure: 116/70 Pulse: 98 Respirations: 20 Pulse Ox (%): 96 Assessment & Plan Physician Review Additional Text: Physical Exam: General: Alert, NAD HEENT: sclera anicteric, normal conjunctiva Pulm: crackles at bilateral bases, non-labored, on 2L NC, wet cough CV: regular rate/rhythm, normal S1/S2 Abd: soft, NTND Ext: R AKA, L: 1+ edema skin: no rash Problem List Hypoxia, dyspnea secondary to Acute on chronic systolic congestive heart failure CKD with mild CURTIS Chronic Atrial fibrillation Diabetes mellitus type 2 Hypertension BPH -leukocytosis now, with wet cough and hypoxia, will cover for possible pneumonia, may be obscured by pleural effusion -CXR this am with b/l pleural effusions due to acute CHF / renal failure, will discuss with pulm regarding benefit of thoracentesis -monitor on telemetry -urinary retention, continue nam catheter for strict i/os as well, continue home flomax -cardiology consulted, pt's EF: 25% last month -CURTIS likely cardiorenal syndrome, nephrology consulted for assistance; Cr worse, feels pt is pre-renal, recommend hold lasix, and start dextrose IVF -eliquis was dc'd on day prior to admission (recently started at [facility]) due to nosebleed, hold eliquis Dispo: anticipate dc back to long term in 48-72hrs Time Spent Managing Pts Care (In Minutes): 35
[2020-04-26] MEDS ORDERED: ALBUMIN HUMAN 25% 100 ML IV ONE (14:00)
[2020-04-26] MEDS: ATORVASTATIN 40 MG TAB PO SCH (20:34)
[2020-04-27] MEDS: D5W 1,000 ML IV SCH (03:31)
[2020-04-27 05:39] LABS: Absolute Lymphocytes (CBC) 0.7 K/uL (0.7-4.9); Basophils % 0.2 % (0-1.3); Hematocrit 27.7 % (39.6-49.0); Lymphocytes % 4.2 % (15.3-44.8); MPV 9.4 fL (7.6-11.3); RBC Red Blood Cell Count 3.12 M/uL (4.33-5.43)
[2020-04-27 06:07] LABS: Albumin 2.4 g/dL (3.4-5.0); Bilirubin Total 1.1 mg/dL (0.2-1.0); Magnesium 1.8 mg/dL (1.8-2.4); Phosphorus 2.9 mg/dL (2.5-4.9); Potassium 3.3 mmol/L (3.5-5.1); Protein, Total 6.3 g/dL (6.4-8.2)
[2020-04-27] MEDS: INSULIN -REGULAR HUMAN 50 UNIT/0.5 ML ML SQ SCH ×3 (06:42→17:33)
[2020-04-27] MEDS ORDERED: D5.45NS W/KCL 20MEQ 20 MEQ/1,000 ML BAG IV SCH (08:00)
[2020-04-27] MEDS: PANTOPRAZOLE 40MG TABLET PO SCH ×2 (08:43→16:15)
[2020-04-27] MEDS: TAMSULOSIN 0.4 MG SR CAP PO SCH (08:43)
[2020-04-27] MEDS: carvediloL 3.125 MG TAB PO SCH ×2 (08:44→21:48)
--- NOTE | 2020-04-27 08:44 | RAD REPORT ---
EXAM DESCRIPTION: RAD - Chest Single View - 04/27/2020 6:17 am CLINICAL HISTORY: hypoxia, pleural effusion Chest pain. COMPARISON: <Comparisons> FINDINGS: Portable technique limits examination quality. Haziness is present in both lung bases, appearing mildly improved relative to prior study. 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 Multi lead pacer device is present. IMPRESSION: Mild improvement in lung base aeration since comparative study.
[2020-04-27] MEDS: AMPICILLIN/SULBACT 3 GM in NA CHLORIDE 0.9% 100 ML IVPB SCH ×2 (08:45→21:47)
[2020-04-27] MEDS: ENOXAPARIN 30 MG/0.3 ML SQ SCH (08:48)
[2020-04-27] MEDS: ACETAMINOPHEN 500 MG TAB PO PRN (10:00)
[2020-04-27] MEDS: BENZONATATE 100 MG CAP PO PRN (10:01)
[2020-04-27] MEDS: VANCOMYCIN 1.5 GM in NA CHLORIDE 0.9% 500 ML IVPB SCH (11:52)
--- NOTE | 2020-04-27 12:28 | P.CNS ---
Date of Consult: 04/27/20 Reason for Consult: Bilateral pleural effusions dyspnea Chief Complaint: Dyspnea, hypoxia, CHF exacerbation History of Present Illness: Patient is 85 years of age with congestive heart failure chronic renal disease and AFib as ended to the emergency room with nosebleed E found to a mildly hypoxic he still continues to complain of chest congestion productive cough mild worsening of his renal function bilateral pleural effusions and possible heart failure as difficulty swallowing Allergies No Known Drug Allergies Allergy (Verified 04/24/20 22:34) Unknown No Known Al Allergy (Uncoded 04/24/20 22:34) Unknown No Known Allergies Allergy (Uncoded 04/24/20 22:34) Unknown Home Medications: Aspirin [Aspirin EC 81 MG] 81 mg PO DAILY 05/04/18 Atorvastatin Calcium [Lipitor] 40 mg PO BEDTIME 05/04/18 Furosemide [Lasix*] 40 mg PO BIDL 05/04/18 Glimepiride [Amaryl] 4 mg PO DAILY 05/04/18 Potassium Chloride [Klor-Con M20] 20 meq PO DAILY 05/04/18 Tamsulosin [Flomax*] 0.4 mg PO DAILY 05/04/18 allopurinoL [Zyloprim*] 300 mg PO DAILY 05/04/18 carvediloL [Coreg*] 3.125 mg pe PO DAILY 05/04/18 Pantoprazole [Protonix Tab*] 40 mg PO BIDAC #60 tab 03/21/20 Spironolactone [Aldactone*] 25 mg PO DAILY #30 tab 03/21/20 - Past Medical/Surgical History Diabetic: Yes -: Chronic systolic congestive heart failure -: DM Type 2 -: Gout -: HTN -: Atrial fibrillation -: CABG -: [place] -: Pacemaker- Defib -: Right AKA 1994 -: Left knee replacement 2x -: Cholecystectomy -: Bilateral Fempop -: Reverse Vasectomy -: Vasectomy Psychosocial/ Personal History: Patient currently resides in retirement - Family History Father Notes: cerebral hemorrhage- Mother Notes: heart attack- - Social History Smoking Status: Former smoker Alcohol use: No CD- Drugs: No Caffeine use: No Place of Residence: Home Review of Systems 10-point ROS is otherwise unremarkable General: Weakness Respiratory: Cough, Shortness of Breath Physical Examination Temp Pulse Resp BP Pulse Ox 97.6 F 113 H 18 113/52 L 96 04/27/20 08:00 04/27/20 08:44 04/27/20 08:00 04/27/20 08:00 04/27/20 08:00 General: Alert, Oriented x3, Mild distress Respiratory: Clear to auscultation bilaterally, Diminished Cardiovascular: No edema, Irregular heart rate/rhythm Gastrointestinal: Normal bowel sounds, Soft and benign - Problems (1) Congestive heart failure (CHF) Current Visit: Yes Status: Acute Plan: Patient is 85 years of age admitted with worsening shortness of breath bilateral pleural effusions most likely congestive heart failure he also has cardiomegaly active smoker echocardiogram is pending chest x-ray has improved today white count mildly elevated at difficulty swallowing renal function is worse pro calcitonin level is elevated echocardiogram pending doubt aspiration pneumonia await cultures can narrow the antibiotics accordingly had some prednisone and bronchodilators oxygenation satisfactory last echocardiogram done this year shows severe global hypokinesis with ejection fraction on 20% mitral stenosis with element of pulmonary hypertension Qualifiers: Heart failure type: systolic
[2020-04-27] MEDS: ARFORMOTEROL TARTRATE 15 MCG/2 ML VIAL.NEB NEB SCH ×2 (12:57→19:35)
[2020-04-27] MEDS: METHYLPREDNISOLONE 40 MG INJ IV SCH ×2 (13:20→21:48)
[2020-04-27 13:43] LABS: Urine Appearance TURBID; Urine Blood 3+ (NEG); Urine Color DK YELLOW; Urine Glucose NEGATIVE (NEG); Urine Protein 1+ (NEG); Urine Specific Gravity 1.025 (1.005-1.030)
[2020-04-27 13:52] LABS: Urine Bilirubin NEGATIVE (NEG); Urine Microscopic Reflex ORDER UMIC
[2020-04-27 13:54] LABS: Urine Bacteria >50 /HPF (NONE SEEN); Urine RBC >50 /HPF (NONE SEEN)
--- NOTE | 2020-04-27 14:20 | RAD REPORT ---
EXAM DESCRIPTION: RAD - Barium Swallow Modified - 04/27/2020 2:07 pm CLINICAL HISTORY: difficulty swallowing/cough FINDINGS: Laryngeal penetration: cleared, thin liquid by straw. No aspiration is seen Pharyngeal residue: moderate with regular solid homero cracker in [place]. Mild to moderate with thin by cup in pyriform. Mild esophageal stasis in lower esophagus with thin liquids. Fluoroscopy time 4 minutes 45 seconds Eighteen fluoroscopic spot series obtained
--- NOTE | 2020-04-27 16:50 | P.PN ---
Subjective Date of Service: 04/27/20 Chief Complaint: Dyspnea, hypoxia, CHF exacerbation Subjective: No new changes (feels about the same, maybe slightly worse today, unable to pinpoint what exactly feels worse, pt short with answers) Review of Systems 10-point ROS is otherwise unremarkable Physical Examination - Vital Signs Temperature: 97.1 F Blood Pressure: 119/59 Pulse: 81 Respirations: 18 Pulse Ox (%): 96 Assessment & Plan Physician Review Additional Text: Physical Exam: General: Alert, NAD HEENT: sclera anicteric, normal conjunctiva Pulm: crackles at bilateral bases, non-labored, on 2L NC, wet cough CV: regular rate/rhythm, normal S1/S2 Abd: soft, NTND Ext: R AKA, L: 1+ edema skin: no rash Problem List Hypoxia, dyspnea secondary to Acute on chronic systolic congestive heart failure possible Aspiration pneumonia CKD with mild CURTIS Chronic Atrial fibrillation Diabetes mellitus type 2 Hypertension BPH -leukocytosis worsening, with wet cough and hypoxia, started unison 04/25 wound for empiric possible aspiration pneumonia. And vancomycin 04/27 given patient's recent hospitalization/[facility] -CXR slightly improved effusions today -elevated pro calcitonin -urinary retention, continue nam catheter for strict i/os as well, continue home flomax, repeat UA -cardiology consulted, pt's EF: 25% last month -CURTIS likely cardiorenal syndrome, nephrology consulted for assistance; Cr worse -eliquis was dc'd on day prior to admission (recently started at [facility]) due to nosebleed, hold eliquis for now -speech therapy consult, concern for aspiration Dispo: anticipate dc back to [facility] in 48-72hrs Time Spent Managing Pts Care (In Minutes): 35
[2020-04-27] MEDS ORDERED: NACHLORIDE 0.45% 1,000 ML with POTASSIUM CL 20 MEQ IV SCH ×2 (21:00)
[2020-04-27] MEDS: ATORVASTATIN 40 MG TAB PO SCH (21:47)
[2020-04-27] MEDS: JUVEN PACKET PO SCH (21:48)
[2020-04-27] MEDS: GLUCERNA SHAKE 237 ML CAN PO SCH (21:48)
--- NOTE | 2020-04-27 22:07 | PN ---
Date of Progress Note: 04/27/2020 Chief Complaint: Acute kidney injury, etiology not clear. Subjective: The patient had episode of urinary retention and likely developed prerenal azotemia seco ndary to renal hypoperfusion. The patient denies nonsteroidal anti-inflammatory medication. The pat ient has underlying non-proteinuric chronic kidney stage 3 with baseline creatinine 1.0 to 1.2, on ad mission creatinine level was 1.9, then it worsened to 2.3. Urine study showed some prerenal componen t. The patient had poor p.o. intake. Renal ultrasound did not show obstructive uropathy. There is no hydronephrosis. The patient is started on IV fluids and he is not on p.o. fluid restriction. The patient was found to have some bladder outlet obstruction. Pathology with postvoid residual volume up to 300 cc. The patient has a Erazo catheter at this point. The patient has urinary retention and was treated with Flomax and currently he required Erazo. Review of Systems: Denies PND or orthopnea. Past Medical History: Lungs: Diminished breath sounds at bases. Heart: S1, S2. Abdomen: Soft, benign. Extremities: Slight edema. Impression And Plan: 1.Acute kidney injury on chronic kidney disease, complicated by urinary retention. The patient will continue Flomax and Erazo catheter was inserted. Monitor creatinine level and check CK level to rul e out rhabdomyolysis. 2.Acute decompensated congestive heart failure. Continue Lasix. Likely, there is some element of c ardiorenal syndrome contributory to kidney insufficiency and kidney abnormalities. 3.Chest x-ray on 04/26 showed some improvement of congestive heart failure, but there is bilateral p leural effusion. The patient will have chest x-ray reevaluated for possible thoracentesis. The ang ent was found to have pneumonia, started on antibiotics. Continue incentive spirometry. The patient may need thoracentesis. 4.Hypertension. Monitor blood pressure and adjust medication. EB/PEYTONL Voice ID: [id number] Report ID: [id number]
[2020-04-27] MEDS ORDERED: NACHLORIDE 0.45% 1,000 ML IV ONE (22:35)
[2020-04-27] MEDS ORDERED: KCL 20 MEQ/100 mL IVPB 20 MEQ/100 ML BAG IV ONE (22:38)
[2020-04-28] MEDS: INSULIN -REGULAR HUMAN 50 UNIT/0.5 ML ML SQ SCH ×4 (01:05→16:42)
[2020-04-28] MEDS: BENZONATATE 100 MG CAP PO PRN (01:05)
[2020-04-28] MEDS: ARFORMOTEROL TARTRATE 15 MCG/2 ML VIAL.NEB NEB SCH ×2 (07:56→19:35)
[2020-04-28] MEDS: PANTOPRAZOLE 40MG TABLET PO SCH ×2 (08:59→16:36)
[2020-04-28] MEDS: ENOXAPARIN 30 MG/0.3 ML SQ SCH (08:59)
[2020-04-28] MEDS: METHYLPREDNISOLONE 40 MG INJ IV SCH ×2 (08:59→21:52)
[2020-04-28] MEDS: TAMSULOSIN 0.4 MG SR CAP PO SCH (08:59)
[2020-04-28] MEDS: carvediloL 3.125 MG TAB PO SCH ×2 (08:59→21:51)
[2020-04-28] MEDS: JUVEN PACKET PO SCH ×2 (09:00→21:52)
[2020-04-28] MEDS: GLUCERNA SHAKE 237 ML CAN PO SCH ×2 (09:00→21:52)
[2020-04-28] MEDS: AMPICILLIN/SULBACT 3 GM in NA CHLORIDE 0.9% 100 ML IVPB SCH ×2 (09:01→21:50)
--- NOTE | 2020-04-28 09:17 | PN ---
Date of Progress Note: 04/28/2020 Subjective: Mr. Burrows is here because of moderate mitral stenosis, congestive heart failure exacerba tion, cough, congestion. He has a history of chronic renal disease, atrial fibrillation. He has bee n hypoxic, has bilateral pleural effusion. Has a history of defibrillator and pacemaker. He stated that he still cough, but he feeling much better from breathing standpoint. He is on Coreg, Lasix, in halers, and steroid. I have no further recommendation regarding his care. He is not a candidate for Entresto or Dm inhibitors. His last ejection fraction was 20% with moderate mitral stenosis in Mar ruary of this year. We will need to repeat echocardiography. He can go home whenever it is okay wit h admitting physician. I would see him in the office in the near future. STERLING/FRANK Voice ID: [id number] Report ID: [id number]
[2020-04-28] MEDS: ACETAMINOPHEN 500 MG TAB PO PRN (13:39)
--- NOTE | 2020-04-28 14:45 | P.PN ---
Subjective Date of Service: 04/28/20 Chief Complaint: Dyspnea, hypoxia, CHF exacerbation Patient has no new complain. He is tolerating room air. Leukocytosis is worse today. Renal function is also worse today. Physical Examination - Vital Signs Temperature: 97.1 F Blood Pressure: 140/48 Pulse: 74 Respirations: 17 Pulse Ox (%): 95 - Physical Exam General: In no apparent distress, Oriented x3, Other (Awake) HEENT: Mucous membr. moist/pink Neck: JVD not distended Respiratory: Clear to auscultation bilaterally, Diminished (On the left) Cardiovascular: No edema Gastrointestinal: Normal bowel sounds, Soft and benign, Non-distended, No tenderness Musculoskeletal: No swelling, Other (Right AKA) Integumentary: No rashes Neurological: Other (No focal motor deficit.) Assessment And Plan Physician Review Additional Text: Problem List Hypoxia, dyspnea secondary to Acute on chronic systolic congestive heart failure possible Aspiration pneumonia CKD with mild CURTIS Chronic Atrial fibrillation Diabetes mellitus type 2 Hypertension BPH -leukocytosis worsening. Patient started on IV steroid. This may be accounting for the worsening leukocytosis. -patient looks clinically better. -suspected aspiration pneumonia. -continue unasyn and vancomycin 04/25. -elevated pro calcitonin -urinary retention, continue nam catheter for strict i/os as well, continue home flomax. -cardiology consulted, pt's EF: 25% last month -CURTIS likely cardiorenal syndrome, nephrology consulted for assistance; Cr worse. Patient getting IV Lasix. Monitor renal function. -eliquis was dc'd on day prior to admission (recently started at [facility]) due to nosebleed. Continue to hold Eliquis -speech therapy input appreciated. Patient started on pureed and thin liquids. -monitor CBC for improvement.
--- NOTE | 2020-04-28 15:50 | PN ---
Date of Progress Note: 04/28/2020 Subjective: The patient was admitted to the hospital with CHF exacerbation and AFib, over volume. The patient is currently on room air. The patient had acute kidney injury secondary to cardiorenal. Physical Examination: Vital Signs: Blood pressure 140/48, pulse of 74. The patient had good urine output. Chest: Crackles bilateral. Heart: S1, S2. Systolic murmur. Regular. Abdomen: Soft, nontender. Extremity: Right above-knee amputation, left 2+ edema. Neuro: Alert, pleasantly confused. Laboratory Data: WBC 16.2, H and H 9.3/27.7, platelet 117. Sodium 131, potassium 3.3, bicarb 26, BUN 76, creatinine 2.9, GFR 21, calcium 8.4, phosphorus 2.9, magnesium 1.8. Chest x-ray, congestion bilateral. Albumin 2.4, corrected calcium is 9.6. TSH 0.7. Urinalysis; RBC more than 50, WBC of 10. PC ratio is 0.2. Assessment And Plan: 1. Acute kidney injury secondary to cardiorenal, on the recovery phase. Kidney function continued to decline. I am going to go ahead and followup vanc trough and we will monitor. I am going to add Lasix for better volume control. If kidney function continues to decline, the patient may need to be initiated on renal replacement therapy to establish better volume control. 2. Hypertension. We will utilize blood pressure for more blood pressure control. 3. Obstructive uropathy. Continue Flomax. We will keep Erazo. 4. Atrial fibrillation. Continue carvedilol. We will increase to 6.25. 5. Congestive heart failure with exacerbation as above. time spent examined the patient face to face s discussed with the patient placed order discussing the case with other pricing/signage team member including nurses , discussing with other specialist include a hospitalist 45 min MYRA/FRANK Voice ID: [id number] Report ID: [id number] JADIEL
[2020-04-28] MEDS: FUROSEMIDE 40 MG/4 ML VIAL IV SCH (16:36)
[2020-04-28] MEDS: ATORVASTATIN 40 MG TAB PO SCH (21:51)
[2020-04-29] MEDS: BENZONATATE 100 MG CAP PO PRN (01:55)
[2020-04-29] MEDS: INSULIN -REGULAR HUMAN 50 UNIT/0.5 ML ML SQ SCH ×5 (02:00→21:15)
[2020-04-29 06:14] LABS: Absolute Lymphocytes (CBC) 0.4 K/uL (0.7-4.9); Basophils % 0.1 % (0-1.3); Hematocrit 29.5 % (39.6-49.0); Lymphocytes % 6.2 % (15.3-44.8); MPV 10.2 fL (7.6-11.3); RBC Red Blood Cell Count 3.28 M/uL (4.33-5.43)
[2020-04-29 06:44] LABS: Albumin 2.3 g/dL (3.4-5.0); Ferritin 178.2 ng/mL (26-388); Folic Acid, (Folate) 9.5 ng/mL (3.1-17.5); Phosphorus 3.3 mg/dL (2.5-4.9); Potassium 3.9 mmol/L (3.5-5.1); Uric Acid 5.2 mg/dL (3.5-7.2)
[2020-04-29] MEDS: ARFORMOTEROL TARTRATE 15 MCG/2 ML VIAL.NEB NEB SCH ×2 (07:32→19:40)
[2020-04-29] MEDS: ENOXAPARIN 30 MG/0.3 ML SQ SCH (08:37)
[2020-04-29 08:38] LABS: Anisocytosis 3+; Blood Morphology Comment NOTED (NOT SEEN); Burr Cells 2+; Hypochromasia 1+; Platelet Estimate ADEQ; Poikilocytosis 2+
[2020-04-29] MEDS: FUROSEMIDE 40 MG/4 ML VIAL IV SCH (08:38)
[2020-04-29] MEDS: carvediloL 3.125 MG TAB PO SCH ×2 (08:38→20:56)
[2020-04-29] MEDS: TAMSULOSIN 0.4 MG SR CAP PO SCH (08:38)
[2020-04-29] MEDS: PANTOPRAZOLE 40MG TABLET PO SCH ×2 (08:38→17:15)
[2020-04-29] MEDS: METHYLPREDNISOLONE 40 MG INJ IV SCH ×2 (08:38→20:54)
[2020-04-29] MEDS: AMPICILLIN/SULBACT 3 GM in NA CHLORIDE 0.9% 100 ML IVPB SCH ×2 (08:39→20:54)
[2020-04-29] MEDS: JUVEN PACKET PO SCH ×2 (08:40→20:55)
[2020-04-29] MEDS: GLUCERNA SHAKE 237 ML CAN PO SCH ×2 (08:40→21:00)
[2020-04-29] MEDS ORDERED: SOD FERRIC GLUC COMPLX/SUCROSE 250 MG in NA CHLORIDE 0.9% 250 ML IV SCH (11:00)
--- NOTE | 2020-04-29 11:13 | RAD REPORT ---
EXAM DESCRIPTION: [facility] Single View04/29/2020 11:07 am CLINICAL HISTORY: Shortness of breath COMPARISON: April 27, 2020 FINDINGS: Small pleural effusions are present with mild bibasilar atelectasis. Lungs otherwise are c lear. Upper lobes are prominent indicative of pulmonary venous hypertension. Heart is moderately enlarged. Postsurgical changes involve the chest. Pacemaker leads in place
[2020-04-29] MEDS: NA CHLORIDE 0.9% 1,000 ML IV SCH (11:41)
[2020-04-29] MEDS: VANCOMYCIN 1.5 GM in NA CHLORIDE 0.9% 500 ML IVPB SCH (12:00)
--- NOTE | 2020-04-29 12:50 | PN ---
Date of Progress Note: 04/29/2020 Subjective: The patient was admitted with acute kidney injury secondary to severe congestive heart failure, cardiorenal. The patient continued to be oliguric. The patient has poor intake. Physical Examination: Vital Signs: When I saw the patient; blood pressure 123/58, pulse of 72, afebrile. The patient had only 100 mL of urine output. Chest: Clear to auscultation. Heart: S1, S2. Systolic murmur. Abdomen: Soft, nontender. Extremity: Right above-knee amputation. Left +2 edema. Neuro: Alert, sleepy. No focality. Laboratory Data: WBC 6.9, H and H 9.7/29.5. Sodium 131, potassium 3.9, bicarb 24, BUN 105, creatinine 4.3, GFR of 13, calcium 8.5, phosphorus 3.3. Iron saturation 26, ferritin 178. PTH 212. Current Medications: The patient on include vancomycin, ampicillin and sulbactam, IV iron, Lovenox, atorvastatin, carvedilol 6.25 b.i.d., pantoprazole. Assessment And Plan: 1. Acute kidney injury secondary to cardiorenal, currently normal volume. Given the poor intake, I agree with holding the Lasix, start gentle hydration. I had long discussion with the patient given the uremic symptoms and the encephalopathy that the patient needs to be initiated on renal replacement therapy. The patient is still hesitant, refused and the patient verbalized wishes for DNR/DNI. I communicated to the primary hospitalist. 2. Hypertension, currently controlled, optimal. Continue current treatment. 3. Congestive heart failure. Normal volume. Discontinue diuresis. Start gentle hydration. 4. Anemia of chronic kidney disease/iron deficiency anemia. Continue IV iron. Continue Epogen. 5. Failure to thrive as by primary. time spent examined the patient face to face s discussed with the patient placed order discussing the case with other grocery team member including nurses , discussing with other specialist include a hospitalist 45 min MYRA/FRANK Voice ID: [id number] Report ID: [id number] JADIEL
--- NOTE | 2020-04-29 19:05 | P.PN ---
Subjective Date of Service: 04/29/20 Chief Complaint: Dyspnea, hypoxia, CHF exacerbation Patient has no new complain. He is tolerating room air but he is less interactive than yesterday and sleeping more today. Leukocytosis has resolved but serum creatinine has increased significantly today. Low urine output. Physical Examination - Vital Signs Temperature: 97.2 F Blood Pressure: 111/53 Pulse: 82 Respirations: 16 Pulse Ox (%): 94 - Physical Exam General: Alert, In no apparent distress HEENT: Mucous membr. moist/pink Neck: Supple, JVD not distended Respiratory: Normal air movement, Diminished Cardiovascular: No edema, Regular rate/rhythm, Normal S1 S2 Gastrointestinal: Soft and benign, Non-distended, No tenderness Musculoskeletal: No clubbing, No swelling Integumentary: No rashes Neurological: Other (No focal motor deficit) Assessment And Plan Physician Review Additional Text: Problem List Hypoxia, dyspnea secondary to Acute on chronic systolic congestive heart failure possible Aspiration pneumonia CKD with mild CURTIS Chronic Atrial fibrillation Diabetes mellitus type 2 Hypertension BPH -leukocytosis resolved. -renal function is worse today -suspected aspiration pneumonia. -continue unasyn and vancomycin 04/25. -elevated pro calcitonin -urinary retention, continue nam catheter for strict i/os as well, continue home flomax. -cardiology consulted, pt's EF: 25% last month -CURTIS likely cardiorenal syndrome, nephrology consulted for assistance; Cr has gotten more worse. Start IV Lasix. Nephrology recommended dialysis but patient declined. Will start slow IV hydration with normal saline. Monitor renal function. -eliquis was dc'd on day prior to admission (recently started at [facility]) due to nosebleed. Continue to hold Eliquis -speech therapy input appreciated. Patient started on pureed and thin liquids. Encourage feeding and oral hydration.
[2020-04-29] MEDS: ATORVASTATIN 40 MG TAB PO SCH (20:55)
[2020-04-30 06:01] LABS: Albumin 2.3 g/dL (3.4-5.0); Phosphorus 3.8 mg/dL (2.5-4.9); Potassium 4.4 mmol/L (3.5-5.1)
[2020-04-30] MEDS: PANTOPRAZOLE 40MG TABLET PO SCH ×3 (07:30→17:01)
[2020-04-30] MEDS: NA CHLORIDE 0.9% 1,000 ML IV SCH ×2 (08:00→17:08)
[2020-04-30] MEDS: ARFORMOTEROL TARTRATE 15 MCG/2 ML VIAL.NEB NEB SCH ×2 (08:03→19:40)
[2020-04-30] MEDS: GLUCERNA SHAKE 237 ML CAN PO SCH ×2 (09:00→21:00)
[2020-04-30] MEDS: JUVEN PACKET PO SCH ×2 (09:00→21:00)
[2020-04-30] MEDS: INSULIN -REGULAR HUMAN 50 UNIT/0.5 ML ML SQ SCH ×4 (09:54→22:30)
[2020-04-30] MEDS: TAMSULOSIN 0.4 MG SR CAP PO SCH (09:54)
[2020-04-30] MEDS: carvediloL 3.125 MG TAB PO SCH ×2 (09:54→22:28)
[2020-04-30] MEDS: ENOXAPARIN 30 MG/0.3 ML SQ SCH (09:55)
[2020-04-30] MEDS: METHYLPREDNISOLONE 40 MG INJ IV SCH ×2 (09:55→22:35)
[2020-04-30] MEDS ORDERED: Levofloxacin 750mg IV 750 MG/150 ML BAG IV ONE (10:00)
[2020-04-30] MEDS: AMPICILLIN/SULBACT 3 GM in NA CHLORIDE 0.9% 100 ML IVPB SCH ×2 (10:01→22:28)
--- NOTE | 2020-04-30 12:28 | PN ---
Date of Progress Note: 04/30/2020 Subjective: The patient doing the same, poor intake. No nausea. No vomiting. Physical Examination: Vital Signs: Blood pressure 124/59, pulse of 83, afebrile. The patient is oliguric. Urine output only 250. Chest: Crackles bilateral base. Heart: S1, S2. Systolic murmur. Abdomen: Soft, nontender. Extremity: Right above-knee amputation. Left +1 edema. Neuro: Alert. No focality. Laboratory Data: WBC 6.9, H and H 9.7/29.5. Sodium 131, potassium 4.4, bicarb 22, BUN 122, creatinine 4.6, GFR of 12, calcium 8.4, phosphorus 3.8, albumin 2.3. Current Medications: The patient on include; 1. Ampicillin. 2. Levaquin 500 every 48 hours. 3. Vancomycin. 4. IV iron. 5. Lovenox. 6. Carvedilol 6.25 b.i.d. 7. Atorvastatin. 8. Zofran. Assessment And Plan: 1. Acute kidney injury secondary to cardiorenal, poor perfusion, ATN, over volume. The patient still refusing dialysis. We will continue to monitor. I discussed with the patient at length that he started having uremic symptoms including decreased intake and see me, the patient still refusing dialysis and wants DNR. We will continue to monitor. Continue gentle hydration. 2. Hypertension, controlled, optimal. Continue current treatment. 3. Congestive heart failure. Follow up with Cardiology. 4. Hyponatremia secondary to dilutional. Continue to monitor. Lasix has been discontinued by primary because of poor intake. time spent examined the patient face to face s discussed with the patient placed order discussing the case with other team truck driver including nurses , discussing with other specialist include a hospitalist 45 min YOANA Voice ID: [id number] Report ID: [id number] JADIEL
--- NOTE | 2020-04-30 14:40 | P.PN ---
Subjective Date of Service: 04/30/20 Chief Complaint: Dyspnea, hypoxia, CHF exacerbation Patient appeared drowsy, not eating much. Leukocytosis has resolved but serum creatinine continues to climb. Low urine output. Blood culture is growing MRSA. Physical Examination - Vital Signs Temperature: 97.2 F Blood Pressure: 111/53 Pulse: 71 Respirations: 20 Pulse Ox (%): 95 - Physical Exam General: Confused, Other (Drowsy) Neck: Supple, JVD not distended Respiratory: Clear to auscultation bilaterally, Normal air movement Cardiovascular: No edema, Regular rate/rhythm, Normal S1 S2 Gastrointestinal: Normal bowel sounds, Soft and benign, Non-distended Musculoskeletal: No swelling, No tenderness Neurological: Other (No focal motor deficit) Assessment And Plan Physician Review Additional Text: Problem List Hypoxia, dyspnea secondary to Acute on chronic systolic congestive heart failure possible Aspiration pneumonia CKD with mild CURTIS Chronic Atrial fibrillation Diabetes mellitus type 2 Hypertension BPH MRSA Bacteremia. -leukocytosis resolved. -no improvement in renal function. -suspected aspiration pneumonia. -continue unasyn and vancomycin 04/25. -added IV Levaquin to cover Pseudomonas in the sputum -elevated pro calcitonin -urinary retention, continue nam catheter for strict i/os as well, continue home flomax. -EF: 25%. -CURTIS likely a combination of prerenal from dehydration and cardiorenal syndrome, nephrology consulted for assistance; Cr has gotten more worse. Nephrology recommended dialysis but patient declined. Will start slow IV hydration with normal saline given very poor oral intake. Monitor renal function. -eliquis was dc'd on day prior to admission (recently started at [facility]) due to nosebleed. Continue to hold Eliquis -speech therapy input appreciated. Patient on pureed and thin liquids. Encourage feeding and oral hydration.
--- NOTE | 2020-04-30 21:03 | P.CNS ---
Date of Consult: 04/30/20 Reason for Consult: CURTIS/ CKD Requesting Physician: briseida suazo Chief Complaint: Dyspnea, hypoxia, CHF exacerbation History of Present Illness: 85-year-old male with history of chronic systolic congestive heart failure, CKD 3, diabetes mellitus type 2, atrial fibrillation presents emergency department for nosebleed. [facility], was recently started on Eliquis, this was discontinued yesterday likely after patient experienced nosebleed at the [facility]. Upon presentation to the emergency department patient's nosebleed had stopped. Patient was found to be mildly hypoxic with room air saturations in the 80s and therefore more thorough evaluation was performed. Mild worsening in renal function creatinine 1.91 GFR 34, baseline creatinine appears to be around 1.3. BNP elevated 5645 chest x-ray demonstrates mild to moderate pulmonary edema. ED provider wishes to admit patient under observation for diuresis, further management. 18:21 This 85 yrs old Male presents to ER via EMS with complaints of general kdr weakness and nose bleed. 18:21 The patient was reportedly seen recently for epistaxis. He had been on Eliquis which kdr was d/c'd after the nose bleed by his son. Today, it is reported that he again had recurrent nose bleeds and so he was sent back to the ED. The patient has no other c/o at this time and seems to not know why he is in the ED. he makes no mention of the nose bleeds. Onset: The symptoms/episode began/occurred at an unknown time. Severity of symptoms: At their worst the symptoms were mild. Unable to obtain HPI due to The patient seems mildly confused. It is unknown whether or not the patient has had similar symptoms in the past. The patient has been recently seen by a physician: with similar presenting complaints, and was referred to a specialist. Allergies No Known Drug Allergies Allergy (Verified 04/24/20 22:34) Unknown No Known Al Allergy (Uncoded 04/24/20 22:34) Unknown No Known Allergies Allergy (Uncoded 04/24/20 22:34) Unknown Home medications list reviewed: Yes Home Medications: Aspirin [Aspirin EC 81 MG] 81 mg PO DAILY 05/04/18 Atorvastatin Calcium [Lipitor] 40 mg PO BEDTIME 05/04/18 Furosemide [Lasix*] 40 mg PO BIDL 05/04/18 Glimepiride [Amaryl] 4 mg PO DAILY 05/04/18 Potassium Chloride [Klor-Con M20] 20 meq PO DAILY 05/04/18 Tamsulosin [Flomax*] 0.4 mg PO DAILY 05/04/18 allopurinoL [Zyloprim*] 300 mg PO DAILY 05/04/18 carvediloL [Coreg*] 3.125 mg pe PO DAILY 05/04/18 Pantoprazole [Protonix Tab*] 40 mg PO BIDAC #60 tab 03/21/20 Spironolactone [Aldactone*] 25 mg PO DAILY #30 tab 03/21/20 - Past Medical/Surgical History Diabetic: Yes -: Chronic systolic congestive heart failure -: DM Type 2 -: Gout -: HTN -: Atrial fibrillation -: CABG -: [place] -: Pacemaker- Defib -: Right AKA 1994 -: Left knee replacement 2x -: Cholecystectomy -: Bilateral Fempop -: Reverse Vasectomy -: Vasectomy Psychosocial/ Personal History: [facility] - Family History Father Notes: cerebral hemorrhage- Mother Notes: heart attack- - Social History Smoking Status: Former smoker Alcohol use: No CD- Drugs: No Caffeine use: No Place of Residence: Home Review of Systems 10-point ROS is otherwise unremarkable General: Weakness, Malaise Cardiovascular: Edema Neurological: Weakness Physical Examination Temp Pulse Resp BP Pulse Ox 97.3 F 76 18 117/54 L 97 04/30/20 16:00 04/30/20 16:00 04/30/20 16:00 04/30/20 16:00 04/30/20 16:00 General: In no apparent distress, Cooperative HEENT: Atraumatic Neck: Supple Respiratory: Clear to auscultation bilaterally Cardiovascular: Regular rate/rhythm, Edema Gastrointestinal: Non-distended, No guarding, Tenderness (RUQ tenderness) Musculoskeletal: No clubbing, No contractures, Other (Right AKA) Integumentary: No rashes, No cyanosis Neurological: Normal speech Blood work reviewed in the chart. Imagings Data: EXAM DESCRIPTION: [facility] Single View04/29/2020 11:07 am CLINICAL HISTORY: Shortness of breath COMPARISON: April 27, 2020 FINDINGS: Small pleural effusions are present with mild bibasilar atelectasis. Lungs otherwise are clear. Upper lobes are prominent indicative of pulmonary venous hypertension. Heart is moderately enlarged. Postsurgical changes involve the chest. Pacemaker leads in place. EXAM DESCRIPTION: US - Renal Ultrasound-Complete - 04/25/2020 7:22 pm CLINICAL HISTORY: assess for urinary obstruction, CKD changes Flank pain COMPARISON: Renal Ultrasound-Complete dated 03/17/2020; Abdomen Pelvis W Contrast dated 03/16/2020 FINDINGS: Both kidneys are normal in size, shape and echotexture. The right kidney measures 11.7 x 5.5 x 5.0 cm. No hydronephrosis, focal mass or perinephric fluid. The left kidney measures 11.6 x 5.2 x 4.5 cm. No hydronephrosis, focal mass or perinephric fluid. Benign 13 mm cyst. The urinary bladder is incompletely distended without gross abnormality seen. IMPRESSION: Unremarkable renal sonogram. Conclusions/Impression: A/P: Continue the current POC and Medications other than the changes listed. AM Labs PRN. Recommend daily weight. Please see the orders for complete details. CURTIS Hematuria -Diff includes CRS, ATN, Post-infectious GN -Check urine studies in the morning -Hepatitis panel pending -Wean steroids Hyponatremia HTN with CKD/ CHF -Continue Coreg Acute on chronic systolic CHF Pulmonary HTN -Start CoQ10 DM II with CKD -RISS Moderate malnutrition -Encourage nutrition Anemia in chronic illness -Give Retacrit -Discontinue IV iron (Iron sat 26%) Secondary HyperPTH Hypocalcemia -Start Calcitriol and Cholecalciferol BPH with LUTS Urinary retention -Continue Flomax -Continue Erazo Gout MRSA Sepsis PSA/ MRSA Sputum -Continue Levaquin and Vancomycin
[2020-04-30] MEDS: ATORVASTATIN 40 MG TAB PO SCH (22:29)
[2020-04-30] MEDS: ACETAMINOPHEN 500 MG TAB PO PRN (23:28)
[2020-05-01] MEDS: NA CHLORIDE 0.9% 1,000 ML IV SCH ×2 (04:00→12:37)
[2020-05-01 06:10] LABS: Absolute Lymphocytes (CBC) 0.5 K/uL (0.7-4.9); Basophils % 0.1 % (0-1.3); Hematocrit 31.6 % (39.6-49.0); Lymphocytes % 7.4 % (15.3-44.8); MPV 10.6 fL (7.6-11.3); RBC Red Blood Cell Count 3.54 M/uL (4.33-5.43)
[2020-05-01 07:19] LABS: Albumin 2.2 g/dL (3.4-5.0); Bilirubin Total 0.9 mg/dL (0.2-1.0); Phosphorus 4.9 mg/dL (2.5-4.9); Potassium 4.8 mmol/L (3.5-5.1); Protein, Total 6.4 g/dL (6.4-8.2); Uric Acid 5.6 mg/dL (3.5-7.2)
[2020-05-01 07:20] LABS: Urine Appearance CLEAR; Urine Blood NEGATIVE (Negative); Urine Color YELLOW; Urine Glucose NEGATIVE (Negative); Urine Protein NEGATIVE (NEG); Urine Urobilinogen 0.2 mg/dL (0.2-1.0)
[2020-05-01 07:20] LABS: Magnesium 2.3 mg/dL (1.8-2.4)
[2020-05-01 07:28] LABS: Urine Bilirubin 1+ (NEG)
[2020-05-01] MEDS: PANTOPRAZOLE 40MG TABLET PO SCH ×2 (07:30→16:15)
[2020-05-01] MEDS: ARFORMOTEROL TARTRATE 15 MCG/2 ML VIAL.NEB NEB SCH (08:20)
[2020-05-01] MEDS: GLUCERNA SHAKE 237 ML CAN PO SCH (09:00)
[2020-05-01] MEDS ORDERED: CALCITROL 0.25 MCG CAP PO SCH (09:00)
[2020-05-01] MEDS: JUVEN PACKET PO SCH (09:00)
[2020-05-01] MEDS ORDERED: METHYLPREDNISOLONE 40 MG INJ IV SCH (09:00)
[2020-05-01] MEDS ORDERED: VITAMIN D 5,000 UNIT CAP PO SCH (09:00)
[2020-05-01] MEDS: carvediloL 3.125 MG TAB PO SCH (09:00)
[2020-05-01] MEDS ORDERED: EPOETIN ALFA-EPBX 10,000 UNIT/ML VIAL SQ SCH (09:00)
[2020-05-01] MEDS: TAMSULOSIN 0.4 MG SR CAP PO SCH (09:00)
[2020-05-01] MEDS ORDERED: COENZYME Q10- 200 MG CAP PO SCH (09:00)
[2020-05-01 09:17] LABS: Urine Amorphous Sediment 1+ /HPF (NONE SEEN); Urine Bacteria <20 /HPF (NONE SEEN); Urine RBC <5 /HPF (NONE SEEN)
[2020-05-01] MEDS: INSULIN -REGULAR HUMAN 50 UNIT/0.5 ML ML SQ SCH ×3 (09:55→16:30)
[2020-05-01] MEDS: ENOXAPARIN 30 MG/0.3 ML SQ SCH (09:55)
[2020-05-01] MEDS: AMPICILLIN/SULBACT 3 GM in NA CHLORIDE 0.9% 100 ML IVPB SCH (10:03)
[2020-05-01 12:52] VITALS: TEMP 97.4
--- NOTE | 2020-05-01 17:03 | P.DS ---
Admission Date: 04/24/20 Discharge Date: 05/01/20 Disposition: HOSPICE-HOME Discharge Condition: FAIR Reason for Admission: Dyspnea, hypoxia, CHF exacerbation - Problems (1) Acute worsening of stage 3 chronic kidney disease Current Visit: Yes Status: Acute (2) MRSA bacteremia Current Visit: Yes Status: Acute (3) Acute on chronic systolic (congestive) heart failure Current Visit: No Status: Acute (4) Chronic atrial fibrillation Current Visit: No Status: Acute (5) Generalized weakness Current Visit: No Status: Acute (6) Oropharyngeal dysphagia Current Visit: Yes Status: Acute (7) Aspiration pneumonia Current Visit: Yes Status: Acute Brief History of Present Illness: 85-year-old gentleman with a history of chronic systolic heart failure, history chronic kidney disease, chronic atrial fib [facility] presented to the emergency department with a complaint of epistaxis. Patient is on Eliquis for atrial fibrillation anticoagulation. This was discontinued the day before presentation. Patient noted to be hypoxic on room air. Workup in the emergency department with chest x-ray showed pulmonary edema. Patient was admitted for further management. Hospital Course: Patient admitted to the medical floor and treated for CHF exacerbation with IV Lasix. Eliquis was discontinued due to epistaxis. Patient renal function got worse on the Lasix. He developed leukocytosis. There was concern for aspiration pneumonia. Patient was placed on antibiotic therapy and seen by speech therapy. Modified barium swallow was done patient noted to have oropharyngeal dysphagia. He was on prescribed puree diet with honey thickened liquids. His spoke to culture grew MRSA and Pseudomonas. Blood culture was done which also grew MRSA. The patient was started on IV vancomycin, IV Unasyn and Levaquin. His oral intake was very poor. Patient renal function continued to worsen even after discontinuing Lasix. He is still have significant edema. Nephrology recommended dialysis. Patient initially declined dialysis. His son was updated on patient's current status. Hospice was discussed. Son wants to proceed with hospice and stated this is in line with his father's wishes. Patient accepted to home with hospice. Vital Signs/Physical Exam: Temp Pulse Resp BP Pulse Ox 97.4 F 82 18 140/57 L 95 05/01/20 12:00 05/01/20 12:00 05/01/20 12:00 05/01/20 12:00 05/01/20 12:00 General: Confused Neck: Supple Respiratory: Diminished (Bilateral) Cardiovascular: Edema (Bilateral hands.), Irregular heart rate/rhythm Gastrointestinal: Soft and benign, Non-distended Neurological: Other (Confused) Laboratory Data at Discharge: WBC 6.60 K/uL (4.3-10.9) 05/01/20 05:23 Hgb 10.3 g/dL (13.6-17.9) L 05/01/20 05:23 Hct 31.6 % (39.6-49.0) L 05/01/20 05:23 Plt Count 94 K/uL (152-406) L 05/01/20 05:23 PT 22.0 SECONDS (9.5-12.5) H 04/24/20 18:01 INR 1.90 04/24/20 18:01 Sodium 133 mmol/L (136-145) L 05/01/20 06:43 Potassium 4.8 mmol/L (3.5-5.1) 05/01/20 06:43 BUN 133 mg/dL (7-18) H 05/01/20 06:43 Creatinine 4.99 mg/dL (0.55-1.3) H 05/01/20 06:43 Glucose 197 mg/dL (74-106) H 05/01/20 06:43 Uric Acid 5.6 mg/dL (3.5-7.2) 05/01/20 06:43 Phosphorus 4.9 mg/dL (2.5-4.9) 05/01/20 06:43 Magnesium 2.3 mg/dL (1.8-2.4) D 05/01/20 06:43 Total Bilirubin 0.9 mg/dL (0.2-1.0) 05/01/20 06:43 AST 74 U/L (15-37) H 05/01/20 06:43 ALT 48 U/L (12-78) 05/01/20 06:43 Alkaline Phosphatase 123 U/L (45-117) H 05/01/20 06:43 Home Medications: Atorvastatin Calcium [Lipitor] 40 mg PO BEDTIME 05/04/18 Tamsulosin [Flomax*] 0.4 mg PO DAILY 05/04/18 allopurinoL [Zyloprim*] 300 mg PO DAILY 05/04/18 carvediloL [Coreg*] 3.125 mg pe PO DAILY 05/04/18 Pantoprazole [Protonix Tab*] 40 mg PO BIDAC #60 tab 03/21/20 Calcitrol [Rocaltrol*] 0.5 mcg PO DAILY #30 cap 05/01/20 Cholecalciferol (Vitamin D3) [Vitamin D 5,000 IU Cap*] 5,000 unit PO DAILY #30 cap 05/01/20 Doxycycline Hyclate 100 mg PO BID #28 tablet 05/01/20 Glucerna Shake [Glucerna*] 237 ml PO BID #60 can 05/01/20 Vikram [Vikram*] 1 pkt PO BID #60 powd.pack 05/01/20 New Medications: Doxycycline Hyclate 100 mg PO BID #28 tablet Glucerna Shake [Glucerna*] 237 ml PO BID #60 can Vikram [Vikram*] 1 pkt PO BID #60 powd.pack Calcitrol [Rocaltrol*] 0.5 mcg PO DAILY #30 cap Cholecalciferol (Vitamin D3) [Vitamin D 5,000 IU Cap*] 5,000 unit PO DAILY #30 cap Diet: ADA (Pureed, honey thickened liquids) Activity: Fall precautions Followup: Rocco Valle, DO [Primary Care Provider] - Time spent managing pt's care (in minutes): 42
[2020-05-01 17:08] VITALS: O2SAT 95
[2020-05-01 17:38] LABS: Hepatitis C Virus RNA (PCR)log <1.18 log IU/mL
[2020-05-01 17:59] VITALS: BP 119/58
--- NOTE | 2020-05-01 20:20 | P.PN ---
Date of Service: 05/01/20 Vital Signs Temp Pulse Resp BP Pulse Ox 97.4 F 72 18 119/58 L 95 05/01/20 16:00 05/01/20 16:00 05/01/20 16:00 05/01/20 16:00 05/01/20 16:00 Assessment/ Plan: Nephrology Limited IH/ ROS due to AMS No acute events overnight. Vitals, medications, blood work and imaging reviewed in the chart. General: In no apparent distress, Cooperative HEENT: Atraumatic Neck: Supple Respiratory: Clear to auscultation bilaterally Cardiovascular: Regular rate/rhythm, Edema Gastrointestinal: Non-distended, No guarding, Tenderness (RUQ tenderness) Musculoskeletal: No clubbing, No contractures, Other (Right AKA) Integumentary: No rashes, No cyanosis Neurological: Normal speech Blood work reviewed in the chart. Imagings Data: EXAM DESCRIPTION: [facility] Single View04/29/2020 11:07 am CLINICAL HISTORY: Shortness of breath COMPARISON: April 27, 2020 FINDINGS: Small pleural effusions are present with mild bibasilar atelectasis. Lungs otherwise are clear. Upper lobes are prominent indicative of pulmonary venous hypertension. Heart is moderately enlarged. Postsurgical changes involve the chest. Pacemaker leads in place. EXAM DESCRIPTION: US - Renal Ultrasound-Complete - 04/25/2020 7:22 pm CLINICAL HISTORY: assess for urinary obstruction, CKD changes Flank pain COMPARISON: Renal Ultrasound-Complete dated 03/17/2020; Abdomen Pelvis W Contrast dated 03/16/2020 FINDINGS: Both kidneys are normal in size, shape and echotexture. The right kidney measures 11.7 x 5.5 x 5.0 cm. No hydronephrosis, focal mass or perinephric fluid. The left kidney measures 11.6 x 5.2 x 4.5 cm. No hydronephrosis, focal mass or perinephric fluid. Benign 13 mm cyst. The urinary bladder is incompletely distended without gross abnormality seen. IMPRESSION: Unremarkable renal sonogram. Conclusions/Impression: A/P: Continue the current POC and Medications other than the changes listed. AM Labs PRN. Recommend daily weight. Please see the orders for complete details. CURTIS/ CKD Hematuria -Diff includes Prerenal azotemia, CRS, ATN -Hepatitis panel negative -Wean steroids Hyponatremia HTN with CKD/ CHF -Continue Coreg Acute on chronic systolic CHF Pulmonary HTN -Continue CoQ10 DM II with CKD -RISS Moderate malnutrition -Encourage nutrition Anemia in chronic illness Iron sat 26% -Give Retacrit PRN Secondary HyperPTH Hypocalcemia -Continue Calcitriol and Cholecalciferol BPH with LUTS Urinary retention -Continue Flomax -Continue Erazo Gout MRSA Sepsis PSA/ MRSA Sputum -Continue Levaquin and Vancomycin Case reviewed with Dr. Banks. Plan for hospice.
[2020-05-02] MEDS ORDERED: VANCOMYCIN/NS 1 gm 1 GM/250 ML BAG IVPB SCH (09:00)
[2020-05-02] MEDS ORDERED: Levofloxacin500mg IV 500 MG/100 ML BAG IV SCH (10:00)
[2020-05-02 13:33] LABS: HBsAG Nonreactive (Nonreactive)
[2020-05-03 06:36] LABS: Albumin, (SPE) 2.6 g/dL (3.8-4.8); Alpha-1-Globulins 0.6 g/dL (0.2-0.3); Alpha-2-Globulins 0.7 g/dL (0.5-0.9); Gamma Globulins 1.1 g/dL (0.8-1.7); INTERPRETATION REPORT
[2020-05-03 11:33] LABS: Vitamin D 1,25-Dihydroxy Total 16 pg/mL (18-72); Vitamin D,1,25-OH2, D2 <8 pg/mL
== END 2020-05-01 18:37 | disposition hospice, home (50) | DRG 291 ==
LOC: ER 16:24 → ERHOLD 20:59 → 2ND 21:41
PROVIDERS: ADMIT Hospitalist; ATTEND Internal Medicine
PROC: 5A09557 Assistance with Respiratory Ventilation, Greater than 96 Consecutive Hours, Continuous Positive Airway Pressure (ICD-10-PCS; principal; 2020-04-26)
DX: I13.0 Hypertensive heart and chronic kidney disease with heart failure and stage 1 through stage 4 chronic kidney disease, or unspecified chronic kidney disease (principal); A41.02 Sepsis due to Methicillin resistant Staphylococcus aureus; J69.0 Pneumonitis due to inhalation of food and vomit; I50.23 Acute on chronic systolic (congestive) heart failure; J96.01 Acute respiratory failure with hypoxia; N17.0 Acute kidney failure with tubular necrosis; I48.20 Chronic atrial fibrillation, unspecified; G93.40 Encephalopathy, unspecified; E87.1 Hypo-osmolality and hyponatremia; E44.0 Moderate protein-calorie malnutrition; N25.81 Secondary hyperparathyroidism of renal origin; N18.30 Chronic kidney disease, stage 3 unspecified; E11.22 Type 2 diabetes mellitus with diabetic chronic kidney disease; M10.9 Gout, unspecified; I25.2 Old myocardial infarction; L89.152 Pressure ulcer of sacral region, stage 2; R62.7 Adult failure to thrive; Z68.28 Body mass index [BMI] 28.0-28.9, adult; Z79.82 Long term (current) use of aspirin; Z79.84 Long term (current) use of oral hypoglycemic drugs; Z79.01 Long term (current) use of anticoagulants; Z79.899 Other long term (current) drug therapy; Z95.0 Presence of cardiac pacemaker; Z87.891 Personal history of nicotine dependence; Z96.652 Presence of left artificial knee joint; Z90.49 Acquired absence of other specified parts of digestive tract; Z53.29 Procedure and treatment not carried out because of patient's decision for other reasons; Z66 Do not resuscitate; Z95.1 Presence of aortocoronary bypass graft; Z89.611 Acquired absence of right leg above knee; Z20.822 Contact with and (suspected) exposure to COVID-19; R04.0 Epistaxis; R33.9 Retention of urine, unspecified; I05.0 Rheumatic mitral stenosis; D72.829 Elevated white blood cell count, unspecified; N13.9 Obstructive and reflux uropathy, unspecified; D63.1 Anemia in chronic kidney disease; D50.9 Iron deficiency anemia, unspecified; B96.5 Pseudomonas (aeruginosa) (mallei) (pseudomallei) as the cause of diseases classified elsewhere; E86.0 Dehydration; I27.20 Pulmonary hypertension, unspecified; N40.1 Benign prostatic hyperplasia with lower urinary tract symptoms; R13.12 Dysphagia, oropharyngeal phase
CPT/HCPCS: 36415; 71045; 71046; 74230; 76770; 80048; 80053; 80069; 80076; 80202; 81001; 81003; 81015; 82550; 82570; 82607; 82652; 82728; 82746; 82947; 83540; 83735; 83880; 83935; 83970; 84100; 84145; 84156; 84165; 84300; 84439; 84443; 84466; 84484; 84550; 85025; 85610; 86021; 86317; 86704; 86706; 87040; 87070; 87077; 87086; 87088; 87186; 87205; 87340; 87522; 92610; 92611; 93005; 94010; 94640; 94760; 99285; J0295; J1650; J1940; J2916; J2920; J3370; J3480; J7030; J7040; J7050; J7605; P9047; Q5106; U0003